=== PATIENT | female | born 1950 | race Caucasian/White ===

== ENCOUNTER → 2016-05-23 | Outpatient (CLI) | payer MEDICARE, OTHER ==
[~2016-05-23] MED LIST: AMLO5TAB2 PO; ATOR40TA PO; CELE200C PO; CITA20TA4 PO; CLCX200C PO; GABA-488 PO; HCT25T PO; HYDR-34 PO; HYDR118S10 PO; HYDR200T46 PO; LEFL20TA4 PO; LEVO75TA6 PO; LEVOTHYROXINE; MECL25TA56 PO; METH2.5T PO; OLME20TA21 PO; ONDA-42 SL; SLF500T PO
--- NOTE | 2016-05-23 11:54 | Diagnostic Imaging Report ---
INDICATION: Injury, pain to the first and second toes. There are arthritic changes to the first MTP. Seen only in the AP view is questionable lucency passing through the intra-articular surface of the proximal portion distal phalanx of the great toe along its lateral margin. No obvious focal soft tissue swelling and again fracture line is not appreciable in any of the additional obliquities favoring artifact. If this however corresponds to a locus of focal pain consider short-term followup to exclude nondisplaced intra-articular fracture or arthritic changes to the proximal and distal interphalangeal joints of the second toe without an appreciable fracture. IMPRESSION: Arthritic changes are present, no definite fracture. Seen in a single view there is questionable lucency of the proximal aspect intra-articular portion distal phalanx great toe. Correlate with level of pain, followup may be of benefit. No other potential acute injury. Dictated by: Dictated on workstation # [id number]
--- NOTE | 2016-05-23 13:18 | Diagnostic Imaging Report ---
EXAMINATION: Left foot. INDICATION: Injury. Three views were obtained. FINDINGS: The left toes exam performed in conjunction with this study did note a linear lucency extending through the lateral aspect of the base of the distal phalanx of the great toe. That finding is again evident on this study. Although this finding is not well appreciated on the other two projections, I suspect that there are is a nondisplaced fracture in this area. No other fracture or acute bony abnormality is identified. There does seem to be soft tissue edema about the interphalangeal joint of the great toe and this too suggests that there may be an acute bony injury. There is at least moderate degenerative disease of the head of the first metatarsal. A prominent calcaneal spur is also noted. IMPRESSION: 1. The findings are suspicious for a nondisplaced fracture involving the lateral aspect of the base of the distal phalanx of the great toe. Clinical followup is recommended. 2. There is no acute bony abnormality noted otherwise. Dictated by: Dictated on workstation # [id number]
== END ==
LOC: RAD 11:10
PROVIDERS: ATTEND Nurse Practitioner Family
DX: M79.672 Pain in left foot (principal); M79.675 Pain in left toe(s)
CPT/HCPCS: 73630; 73660

== ENCOUNTER → 2016-07-07 | Outpatient (CLI) | payer MEDICARE, OTHER ==
--- NOTE | 2016-07-08 09:07 | Diagnostic Imaging Report ---
Bilateral screening mammogram The current study was also evaluated with a Computer Aided Detection (CAD) system. INDICATION: Screening. No current complaints stated on the questionnaire. COMPARISON: 03/23/15 FINDINGS: The breasts are composed of scattered fibroglandular densities with slightly dense small areas in the parenchyma similar to prior studies. No mass, architectural distortion or suspicious cluster of calcifications seen. Scattered benign-appearing calcifications are noted. Allowing for technique and positional differences, no suspicious change is seen. IMPRESSION: No significant change. ACR BI-RADS Category 2: Benign findings. Result letter will be mailed to the patient. Note: At least 10% of breast cancer is not imaged by mammography. Dictated by: Dictated on workstation # [id number]
== END ==
LOC: RAD 11:17
PROVIDERS: ATTEND Nurse Practitioner Family
DX: Z12.31 Encounter for screening mammogram for malignant neoplasm of breast (principal)
CPT/HCPCS: 77067

== ENCOUNTER → 2018-01-03 | Outpatient (CLI) | payer MEDICARE, OTHER ==
--- NOTE | 2018-01-03 19:32 | Diagnostic Imaging Report ---
INDICATION: Routine screening. Comparison is made with prior exam from 07/07/2016 and 03/23/2015. 2-D and 3-D bilateral screening mammography was performed with computer-aided detection (CAD) system. FINDINGS: Both breasts remain heterogeneously dense, limiting the sensitivity of mammography. There are benign calcifications scattered throughout both breasts. There is a density noted in the left breast retroareolar slightly superior location on the MLO view which appears more prominent than prior exam. No definite correlate on the CC view is seen. Additional views are recommended. No other abnormality is seen. The axillae are unremarkable. IMPRESSION: Left breast density. Additional views including spot compression and ML views are recommended for further evaluation. ACR BI-RADS Category 0: Incomplete. (Needs additional imaging evaluation). Result letter will be mailed to the patient. Note: At least 10% of breast cancer is not imaged by mammography. Dictated by: Dictated on workstation # [id number]
== END ==
LOC: RAD 09:37
PROVIDERS: ATTEND Family Medicine
DX: Z12.31 Encounter for screening mammogram for malignant neoplasm of breast (principal); R92.8 Other abnormal and inconclusive findings on diagnostic imaging of breast
CPT/HCPCS: 77067

== ENCOUNTER → 2018-01-31 | Outpatient (CLI) | payer MEDICARE, OTHER ==
--- NOTE | 2018-01-31 10:03 | Diagnostic Imaging Report ---
Ultrasound of the left breast. INDICATION: Abnormal mammogram The screening mammogram performed on 01/03/2018 noted an area of increased density in the left supra-areolar region. The diagnostic mammogram performed earlier today failed to show any sign of malignancy. On this study there is no discrete solid or cystic mass visualized. I suspect that the density seen on screening mammogram was related to superimposition of fibroglandular tissue alone. Even so, I would recommend that a short-term (6 month) followup mammogram and possible ultrasound exam of the left breast be performed for continued study. IMPRESSION: There is no evidence of malignancy. Recommendations as above. ACR BI-RADS Category 3: Probably benign findings. Dictated by: Dictated on workstation # [id number]
--- NOTE | 2018-01-31 10:03 | Diagnostic Imaging Report ---
EXAMINATION: Unilateral diagnostic left mammogram with CAD. INDICATION: Abnormal screening mammogram. PERSONAL HISTORY: The recent screening mammogram performed on 01/03/2018 noted an area of increased density in the retroareolar region of the left breast on the MLO view. There was no corresponding abnormality on the craniocaudad view. FINDINGS: The previously noted density does not seem as conspicuous on the compression views in the MLO projection performed today. This finding is not well visualized on the true lateral view either. I suspect it is related to fibroglandular tissue alone. Even so, I would recommend that ultrasound be performed for further study. IMPRESSION: There is no evidence for malignancy. Ultrasound would be recommended for further evaluation. ACR BI-RADS Category 0: Incomplete. (Needs additional imaging evaluation). Result letter will be mailed to the patient. Note: At least 10% of breast cancer is not imaged by mammography. Dictated by: Dictated on workstation # [id number]
== END ==
LOC: RAD 08:17
PROVIDERS: ATTEND Nurse Practitioner Family
DX: R92.2 Inconclusive mammogram (principal)
CPT/HCPCS: 76642

== ENCOUNTER 2018-03-17 11:07 | Inpatient (IN) | payer MEDICARE, OTHER ==
[~2018-03-17] VITALS: Ht 162.6 cm; Wt 79.1 kg
--- OUTSIDE RECORDS SUMMARY | 2018-03-17 11:11 | XMS REPORT | Clinical Summary ---
Author Author [facility] Organization [facility] Address Unknown Phone Unavailable Care Team Providers Care Solution Coordinator Name Role Phone Shannon Falk MD PCP Allergies Active Allergy Reactions Severity Noted Date Comments Infliximab Rash Low 10/30/2017 Sulfa (Sulfonamide Hives 05/25/2015 Antibiotics) Current Medications Prescription Sig. Disp. Refills Start End Date Status Date losartan (COZAAR) 100 MG Take 100 mg by mouth 04/26/19 Active tablet daily. 16 levothyroxine (SYNTHROID, Take 75 mcg by mouth 04/18/19 Active LEVOTHROID) 75 MCG tablet daily. 16 gabapentin (NEURONTIN) Take 600 mg by mouth 2 04/23/19 Active 600 MG tablet (two) times a day. 16 citalopram (CELEXA) 20 MG Take by mouth every 04/27/19 Active tablet morning. 16 chlorthalidone (HYGROTON) Take 1 tablet (25 mg 90 tablet 3 09/16/19 Active 25 MG tablet total) by mouth daily. 18 spironolactone Take 1 tablet (25 mg 90 tablet 3 10/17/19 Active (ALDACTONE) 25 MG tablet total) by mouth daily. 18 oxyCODONE-acetaminophen Take 2 tablets by mouth 03/03/19 Active (PERCOCET) 5-325 mg per every 6 (six) hours as 19 tablet needed for pain. Take 1-2 tabs aspirin 325 MG EC tablet Take 325 mg by mouth 03/03/19 Active daily. 19 polyethylene glycol Take 17 g by mouth daily. 03/03/19 Active (GLYCOLAX) 17 gram/dose For constipation 19 powder Active Problems Problem Noted Date Radicular leg pain 05/25/2015 RA (rheumatoid arthritis) ([facility]) Overview: APPROX 10 YRS Neuropathy Overview: LEFT FOOT Hypothyroidism Essential hypertension Mixed hyperlipidemia Obesity (BMI 30.0-34.9) Foot drop, left Edema of lower extremity Overview: R>L Encounters Date Type Specialty Care Team Description 03/12/2018 Home Care Visit [facility] Jenny Covarrubias, PT PT OASIS DISCHARGE 03/09/2018 Home Care Visit [facility] Services Jenny Covarrubias, PT PT HOME VISIT 03/08/2018 Home Care Visit [facility] Jenny Boucher, RN SN MED REVIEW NOTE 03/06/2018 Home Care Visit [facility] Services Jenny Covarrubias, PT PT HOME VISIT 03/03/2018 Home Care Visit [facility] Jenny Covarrubias, PT PT OASIS START OF CARE 03/02/2018 Home Care Visit [facility] [place] Werner G TELEPHONE ENCOUNTER 01/29/2018 Hospital [facility] Chante Farrar APRN Varicose veins of both Encounter lower extremities with pain (Primary Dx) from Last 3 Months Family History Medical History Relation Name Comments Heart attack Brother COPD Father Heart attack Father Hyperlipidemia Father Stroke Father Hyperlipidemia Mother Relation Name Status Comments Brother Father Mother Social History Tobacco Use Types Packs/Day Years Used Date Never Smoker Smokeless Tobacco: Never Used Alcohol Use Drinks/Week oz/Week Comments Yes RARELY Sex Assigned at Date Recorded Not on file Last Filed Vital Signs Vital Sign Reading Time Taken Blood Pressure 120/64 03/12/2018 10:57 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 Pulse 72 03/12/2018 10:57 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 Temperature 36.7 C (98.1 F) 03/09/2018 9:47 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 Respiratory Rate 17 07/31/2015 4:07 PM CDT Oxygen Saturation 97% 03/12/2018 10:57 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 Inhaled Oxygen - - Concentration Weight 81.6 kg (180 lb) 01/29/2018 10:00 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 Height 162.6 cm (5' 4") 01/29/2018 10:00 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 Body Mass Index 30.9 01/29/2018 10:00 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 Plan of Treatment Date Type Specialty Care Team Description 04/16/2018 Appointment Valve and Vascular Health Maintenance Due Date Last Done Comments Medicare Annual Wellness 1950 Td # 1950 Colorectal Screening via 08/13/1999 Colonoscopy Mammogram Screening 08/13/1999 Zoster Vaccine# (1 of 2) 08/13/1999 Pneumococcal Immunization 2014 65+ (1 of 2 - PCV13) Fall Risk Assessment # 07/30/2016 07/31/2015 Depression Screening 01/21/2017 01/22/2016 PHQ-9 # Influenza Vaccine (#1) 2017 Osteoporosis Screening 05/26/2020 05/27/2015 Hepatitis C Screen Completed 05/13/2013 Implants Implanted Type Area Inpatient Services Director Device Expiration Model / Identifier Date Serial / Lot Implant Allograft Vivigen 1ml Non-Tissue N/A: Spine LIFENET 2015 BL-1500-00 Bl-1500-001 - [id number] Implant Lumbar 1 / Implanted: Qty: 1 on 07/28/2015 by [id number] Frank Abdi MD 12 / Implant Allograft Vivigen 1ml Non-Tissue N/A: Spine LIFENET 2015 BL-1500- -1500-001 - [id number] Implant Lumbar 1 / Implanted: Qty: 1 on 07/28/2015 by [id number] Frank Abdi MD 06 / Implant Spacer Rise 10 X 26 8-15mm Non-Tissue N/A: Spine GLOBUS 193.122 / 193.122 - [id number] Implant Lumbar / Implanted: Qty: 1 on 07/28/2015 by Frank Abdi MD Needle Jamshidi Beveled Tip 10ga X Non-Tissue N/A: Spine DEPUY SPINE 5" 2839-02-510 - [id number] Implant Lumbar 0 / Implanted: Qty: 2 on 07/28/2015 by / Frank Abdi MD Implant Screw X-Tab Miguel 6 X 40mm Non-Tissue N/A: Spine DEPUY SPINE 1866-60-140 - [id number] Implant Lumbar 0 / Implanted: Qty: 1 on 07/28/2015 by / Frank Abdi MD Implant Screw X-Tab Miguel 6 X 45mm Non-Tissue N/A: Spine DEPUY SPINE 60-145 - [id number] Implant Lumbar 5 / Implanted: Qty: 3 on 07/28/2015 by / Frank Abdi MD Implant Morales 45mm - - Non-Tissue N/A: Spine DEPUY SPINE [id number] Implant Lumbar 5 / Implanted: Qty: 2 on 07/28/2015 by / Frank Abdi MD Implant Screw Inner Set 1866-- Non-Tissue N/A: Spine DEPUY SPINE - [id number] Implant Lumbar 0 / Implanted: Qty: 4 on 07/28/2015 by / Frank Abdi MD Results Not on filefrom Last 3 Months
--- OUTSIDE RECORDS SUMMARY | 2018-03-17 11:12 | XMS REPORT | Encounter Summary ---
Author Author [facility] Organization [facility] Address Unknown Phone Unavailable Care Team Providers Care Play Reader Name Role Phone Shannon Falk MD PCP Reason for Visit * HH Auth Cert Status Reason Specialty Diagnoses / Referred By Referred To Procedures Contact Contact Encounter Details Date Type Department Care Team Description 03/12/2018 Home Care Visit [facility] Jenny Covarrubias, PT PT OASIS DISCHARGE [address] [address] Social History Tobacco Use Types Packs/Day Years Used Date Never Smoker Smokeless Tobacco: Never Used Alcohol Use Drinks/Week oz/Week Comments Yes RARELY Sex Assigned at Date Recorded Not on file as of this encounter Last Filed Vital Signs Vital Sign Reading Time Taken Blood Pressure 120/64 03/12/2018 10:57 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
--- OUTSIDE RECORDS SUMMARY | 2018-03-17 11:12 | XMS REPORT | Encounter Summary ---
Author Author [facility] Organization [facility] Address Unknown Phone Unavailable Care Team Providers Care Furrier Designer Name Role Phone Shannon Falk MD PCP Reason for Visit * HH Auth Cert Status Reason Specialty Diagnoses / Referred By Referred To Procedures Contact Contact Encounter Details Date Type Department Care Team Description 03/06/2018 Home Care Visit [facility] Jenny Covarrubias, PT PT HOME VISIT [place] [id number] [address] Social History Tobacco Use Types Packs/Day Years Used Date Never Smoker Smokeless Tobacco: Never Used Alcohol Use Drinks/Week oz/Week Comments Yes RARELY Sex Assigned at Date Recorded Not on file as of this encounter Last Filed Vital Signs Vital Sign Reading Time Taken Blood Pressure 140/80 03/06/2018 2:57 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
--- OUTSIDE RECORDS SUMMARY | 2018-03-17 11:12 | XMS REPORT | Encounter Summary ---
Author Author [facility] Organization [facility] Address Unknown Phone Unavailable Care Team Providers Care Contract Clerk Automobile Name Role Phone Shannon Falk MD PCP Encounter Details Date Type Department Care Team Description 03/02/2018 Home Care Visit [facility] Werner Ramirez TELEPHONE ENCOUNTER [facility] [address] [address] Social History Tobacco Use Types Packs/Day Years Used Date Never Smoker Smokeless Tobacco: Never Used Alcohol Use Drinks/Week oz/Week Comments Yes RARELY Sex Assigned at Date Recorded Not on file as of this encounter Plan of Treatment Date Type Specialty Care Team Description 04/16/2018 Appointment Valve and Vascular as of this encounter Visit Diagnoses Not on filein this encounter
--- OUTSIDE RECORDS SUMMARY | 2018-03-17 11:12 | XMS REPORT | Encounter Summary ---
Author Author [facility] Organization [facility] Address Unknown Phone Unavailable Care Team Providers Care High Scaler Name Role Phone Shannon Falk MD PCP Reason for Visit * Reason Comments Leg pain Leg Swelling Encounter Details Date Type Department Care Team Description 01/29/2018 [facility] Chante Farrar APRN Varicose veins of both Encounter [facility] [address] lower extremities with [address], [address] pain (Primary Dx) [place] [address] [place] [address] [phone] Social History Tobacco Use Types Packs/Day Years Used Date Never Smoker Smokeless Tobacco: Never Used Alcohol Use Drinks/Week oz/Week Comments Yes RARELY Sex Assigned at Date Recorded Not on file as of this encounter Last Filed Vital Signs Vital Sign Reading Time Taken Blood Pressure 147/77 01/29/2018 10:00 AM TABLEAU REPORT DEVELOPER Pulse 80 01/29/2018 10:31 AM TABLEAU REPORT DEVELOPER Temperature - - Respiratory Rate - - Oxygen Saturation - - Inhaled Oxygen - - Concentration Weight 81.6 kg (180 lb) 01/29/2018 10:00 AM TABLEAU REPORT DEVELOPER Height 162.6 cm (5' 4") 01/29/2018 10:00 AM TABLEAU REPORT DEVELOPER Body Mass Index 30.9 01/29/2018 10:00 AM TABLEAU REPORT DEVELOPER in this encounter Medications at Time of Discharge Medication Sig. Disp. Refills Start Date End Date chlorthalidone (HYGROTON) Take 1 tablet (25 mg 90 tablet 3 09/15/2017 25 MG tablet total) by mouth daily. citalopram (CELEXA) 20 MG Take by mouth every 04/27/2015 tablet morning. gabapentin (NEURONTIN) Take 600 mg by mouth 2 04/23/2015 600 MG tablet (two) times a day. levothyroxine (SYNTHROID, Take 75 mcg by mouth 04/18/2015 LEVOTHROID) 75 MCG tablet daily. losartan (COZAAR) 100 MG Take 100 mg by mouth 04/26/2015 tablet daily. spironolactone Take 1 tablet (25 mg 90 tablet 3 10/16/2017 (ALDACTONE) 25 MG tablet total) by mouth daily. as of this encounter Progress Notes * Chante Farrar APRN - 01/29/2018 10:04 AM TABLEAU REPORT DEVELOPER Formatting of this note may be different from the original. [facility] Appointment Date: 01/29/2018 Shannon Falk MD [address], [place], operated [facility] [id number] RE: Dalila Hameed : 1950 Visit provider: Chante Farrar RN, [facility] Dear Shannon Falk MD, I had the pleasure of seeing Dalila Hameed in the office today. She is a 67 y.o. female and presents with the following chief complaints: Leg pain and Leg Swelling HPI: Ms. Hameed presents for reevaluation of her venous insufficiency. She is a 67- year-old female with history of venous insufficiency with prior treatment to her left leg years ago which she describes as vein stripping. Her medical history also includes hypertension and dyslipidemia. She has had issues with chronic lower extremity edema as well as lower extremity discomfort described as aching and cramping. Her vein mapping revealed bilateral deep vein reflux as well as large vein insufficiency involving the greater saphenous veins , anterior lateral saphenous veins, tributaries, and vein of Giacomini. She was noted to have medium vein disease as well. She has completed a 90-day trial of compression during the daytime hours. She reports her symptoms have improved significantly although they have not entirely resolved. Her swelling is much better. She still has some aching and cramping but these are much less severe. She plans to proceed with a right knee replacement on February 27. Vein Medical History Can you stand for 30 minutes without assistance?: Yes Can you climb three stairs (using hand rails) without assistance?: Yes Have you fallen in the last six months?: No Have you had previous treatment of your veins?: Stripping (15 years ago) Have you ever had an ankle/leg ulcer?: No Have you ever been treated in Wound Care?: No Do you have vaginal varicosities?: No Leg Symptoms Aching/Pain in legs: Bilateral Heaviness: Bilateral Fatigue/Tiredness: Bilateral Itching/Burning: Bilateral Leg cramping: Bilateral Leg restlessness: Bilateral Throbbing: Bilateral Swelling: Bilateral Do your symptoms interfere with activity?: Bilateral Do your symptoms worsen with activity?: Bilateral Do your symptoms wake you at night?: Bilateral Which leg is more symptomatic?: Left How long have you experienced the symptoms marked above?: 1 year How do your symptoms interfere with performing daily activities?: limits house and yard work Conservative Treatment What pain medications have you used?: hydrocodone Other conservative treatments?: Leg elevation, Activity restriction Compression Stockings Are you currently wearing compression stockings?: Yes When did you begin wearing compression stockings?: 3 months Do you wear compression stockings daily?: Yes Which type of compression hose are you wearing?: Thigh High Patient Active Problem List Diagnosis SNOMED CT(R) Radicular leg pain RADICULAR PAIN RA (rheumatoid arthritis) ([facility]) RHEUMATOID ARTHRITIS Neuropathy NEUROPATHY Hypothyroidism HYPOTHYROIDISM Essential hypertension ESSENTIAL HYPERTENSION Mixed hyperlipidemia MIXED HYPERLIPIDEMIA Obesity (BMI 30.0-34.9) OBESE CLASS I Foot drop, left LEFT FOOT DROP Edema of lower extremity EDEMA OF LOWER EXTREMITY Past Medical History: Diagnosis Date Anesthesia complication CAUSES CONSTIPATION Chronic pain disorder ON PAIN NARCOTICS FOR APPROX 15 YRS Degenerative joint disease (DJD) of lumbar spine Edema of lower extremity R>L Essential hypertension Foot drop, left GERD (gastroesophageal reflux disease) MARTY FOR GERD, NO PROBLEMS SINCE Head injury CONCUSSION AFTER FALL, LOC FOR BRIEF PERIOD OF TIME, NO PERMANENT DAMAGE History of blood clots SUPERFACIAL CLOTS AT THIGH AREA OF LEFT LEG Hypothyroidism Mixed hyperlipidemia Neuropathy LEFT FOOT Obesity (BMI 30.0-34.9) Osteoarthritis HANDS, HIPS RA (rheumatoid arthritis) ([facility]) APPROX 10 YRS Radicular leg pain 05/25/2015 Rheumatoid arthritis of spine ([facility]) CERVICAL SPINE; HAS FULL ROM WITH NECK Sciatica DOWN LEFT LEG Urinary incontinence STRESS INCONTINENCE Past Surgical History: Procedure Laterality Date BUNIONECTOMY Right FRACTURE SURGERY Left CLAVICAL FX FUSION, SPINE, LUMBAR, INTERBODY, TRANSFORAMINAL APPROACH Left 07/28/2015 Procedure: L4-L5 FUSION TRANSFORAMINAL LUMBAR INTERBODY SPINE; Surgeon: Frank Abdi MD; Location: [facility]; Service: Neurosurgery; Laterality: Left; HYSTERECTOMY MARTY FUNDOPLICATION ROTATOR CUFF REPAIR Right TONSILLECTOMY AND ADENOIDECTOMY VEIN LIGATION AND STRIPPING Left Final Medications: Current Outpatient Prescriptions Medication Sig Dispense Refill chlorthalidone (HYGROTON) 25 MG tablet Take 1 tablet (25 mg total) by mouth daily. 90 tablet 3 citalopram (CELEXA) 20 MG tablet Take by mouth every morning. gabapentin (NEURONTIN) 600 MG tablet Take 600 mg by mouth 2 (two) times a day. levothyroxine (SYNTHROID, LEVOTHROID) 75 MCG tablet Take 75 mcg by mouth daily. losartan (COZAAR) 100 MG tablet Take 100 mg by mouth daily. spironolactone (ALDACTONE) 25 MG tablet Take 1 tablet (25 mg total) by mouth daily. 90 tablet 3 No current facility-administered medications for this encounter. Allergies Allergen Reactions Sulfa (Sulfonamide Antibiotics) Hives Remicade [Infliximab] Rash Family History Problem Relation Age of Onset Hyperlipidemia Mother Hyperlipidemia Father COPD Father Stroke Father Heart attack Father Heart attack Brother Social History: Social History Substance Use Topics Smoking status: Never Smoker Smokeless tobacco: Never Used Alcohol use Yes Comment: RARELY Review of Systems Cardiovascular: Positive for leg swelling. Skin: Negative for color change, dry skin, itching, poor wound healing and rash. Musculoskeletal: Positive for joint pain, joint swelling and muscle cramps. Negative for muscle weakness. Vital Signs 01/29/18 1000 01/29/18 1031 BP: (!) 147/77 Pulse: (!) 111 80 Weight: 81.6 kg (180 lb) Height: 1.626 m (5' 4") BMI: Body mass index is 30.9 kg/m. Physical Exam Constitutional: She is oriented to person, place, and time. She appears well- developed and well-nourished. HENT: Head: Normocephalic. Cardiovascular: Regular rhythm, normal heart sounds and intact distal pulses. Pulmonary/Chest: Effort normal and breath sounds normal. Musculoskeletal: She exhibits edema (trace bilateral LE ). Normal calf pump Neurological: She is alert and oriented to person, place, and time. Skin: Skin is warm and dry. Scattered bilateral LE telangiectasias and reticular veins. Skin is dry, flaking. Psychiatric: She has a normal mood and affect. Her behavior is normal. Judgment and thought content normal. SNOMED CT(R) 1. Varicose veins of both lower extremities with pain VARICOSE VEINS OF LOWER EXTREMITY Plan: #1 Venous insufficiency with lifestyle limiting symptoms. The use of compression has been helpful therefore I believe she will benefit from treatment of her venous insufficiency she will require endovenous laser ablation of her right greater saphenous vein with ultrasound-guided injections and treatment of her median vein disease. Her left leg is amenable to endovenous laser ablation of her anterior lateral saphenous vein, ultrasound guided injections and the treatment of medium vein disease. If EVLA of the AL is unsuccessful, she will require ultrasound-guided injections. She plans to proceed with her right knee replacement on February 27 therefore we will delay any venous treatment until after her recovery. She will return to our office in March for reevaluation. She will continue to use compression during the daytime hours. #2 Deep vein insufficiency. This was noted bilaterally on vein mapping. We discussed she may always have some degree of lower extremity symptoms as a result I have encouraged her to use compression lifelong, engage in routine exercise, and pursue weight loss. Thank you for allowing me to participate in Dalila Hameed's care. If I can be of any further assistance, please do not hesitate to contact me. Sincerely, Chante Farrar RN, AGACNP-BC in this encounter Plan of Treatment Date Type Specialty Care Team Description 04/16/2018 Appointment [facility] as of this encounter Visit Diagnoses Diagnosis Varicose veins of both lower extremities with pain - Primary
--- OUTSIDE RECORDS SUMMARY | 2018-03-17 11:12 | XMS REPORT | Encounter Summary ---
Author Author [facility] Organization [facility] Address Unknown Phone Unavailable Care Team Providers Care Joy Loader Name Role Phone Shannon Falk MD PCP Reason for Visit * HH Auth Cert Status Reason Specialty Diagnoses / Referred By Referred To Procedures Contact Contact Encounter Details Date Type Department Care Team Description 03/08/2018 Home Care Visit [facility] Jenny Boucher , RN SN MED REVIEW NOTE [facility] [address] [address] Social History Tobacco Use Types [...]
--- OUTSIDE RECORDS SUMMARY | 2018-03-17 11:12 | XMS REPORT | Encounter Summary ---
Author Author [facility] Organization [facility] Address Unknown Phone Unavailable Care Team Providers Care Video Game Developer Name Role Phone Shannon Falk MD PCP Reason for Visit * HH Auth Cert Status Reason Specialty Diagnoses / Referred By Referred To Procedures Contact Contact Encounter Details Date Type Department Care Team Description 03/09/2018 Home Care Visit [facility] Jenny Covarrubias, PT PT HOME VISIT [place] [id number] [address] Social History Tobacco Use Types Packs/Day Years Used Date Never Smoker Smokeless Tobacco: Never Used Alcohol Use Drinks/Week oz/Week Comments Yes RARELY Sex Assigned at Date Recorded Not on file as of this encounter Last Filed Vital Signs Vital Sign Reading Time Taken Blood Pressure 124/64 03/09/2018 9:47 AM MERCHANDISE DISTRIBUTOR Pulse 78 03/09/2018 9:47 AM MERCHANDISE DISTRIBUTOR Temperature 36.7 C (98.1 F) 03/09/2018 9:47 AM MERCHANDISE DISTRIBUTOR Respiratory Rate - - Oxygen Saturation 96% 03/09/2018 9:47 AM MERCHANDISE DISTRIBUTOR Inhaled Oxygen - - Concentration Weight - - Height - - Body Mass Index - - in this encounter Plan of Treatment Date Type Specialty Care Team Description 04/16/2018 Appointment [facility] as of this encounter Visit Diagnoses Not on filein this encounter
--- OUTSIDE RECORDS SUMMARY | 2018-03-17 11:12 | XMS REPORT | Encounter Summary ---
Author Author [facility] Organization [facility] Address Unknown Phone Unavailable Care Team Providers Care Brake Adjuster Name Role Phone Shannon Falk MD PCP Reason for Visit * HH Auth Cert Status Reason Specialty Diagnoses / Referred By Referred To Procedures Contact Contact Encounter Details Date Type Department Care Team Description 03/03/2018 Home Care Visit [facility] Jenny Covarrubias, PT PT [place] [phone] [address] Social History Tobacco Use Types Packs/Day Years Used Date Never Smoker Smokeless Tobacco: Never Used Alcohol Use Drinks/Week oz/Week Comments Yes RARELY Sex Assigned at Date Recorded Not on file as of this encounter Last Filed Vital Signs Vital Sign Reading Time Taken Blood Pressure 150/78 03/03/2018 12:54 PM NURSE SITTER Pulse 72 03/03/2018 12:54 PM NURSE SITTER Temperature 36.7 C (98.1 F) 03/03/2018 12:54 PM NURSE SITTER Respiratory Rate - - Oxygen Saturation 96% 03/03/2018 12:54 PM NURSE SITTER Inhaled Oxygen - - Concentration Weight - - Height - - Body Mass Index - - in this encounter Plan of Treatment Date Type Specialty Care Team Description 04/16/2018 Appointment [facility] as of this encounter Visit Diagnoses Not on filein this encounter
--- OUTSIDE RECORDS SUMMARY | 2018-03-17 11:15 | XMS REPORT | CCD ---
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 Name Role Phone PP Unavailable CCM Unavailable Summary Purpose Interface Exchange Insurance Providers Payer name Policy type / Coverage type Covered alliance party ID Effective Begin Date Effective End Date WPS Medicare Part B Medicare Part B [id number] Unknown [place] [employer] Life Insurance Medicare Part B [id number] Unknown Family history Brother Diagnosis Age At Onset Alcoholism Unknown Daughter Diagnosis Age At Onset Breast cancer Unknown Mother Diagnosis Age At Onset Hyperlipidemia Unknown Father Diagnosis Age At Onset Alcoholism Unknown Heart Attack Unknown Colon cancer Unknown Cancer Unknown Stroke Unknown Hypertension Unknown Hyperlipidemia Unknown Runs in the family Diagnosis Age At Onset Diabetes Unknown Social History Social History Element Codes Description Effective Dates Marital status Unknown Maksim 09/27/2017 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 Number of children Unknown 2 07/10/[address]: 460836943 Has never smoked or chewed tobacco 07/10/2014 Alcohol history Unknown occasionally drinks alcohol 07/10/2014 Allergies, Adverse Reactions, Alerts Substance Reaction Codes Entered Date Inactivated Date Status Remicade hives RxNorm: 961971 03/24/2017 No Inactive Date Active * NO KNOWN FOOD ALLERGIES Unknown 07/10/2014 No Inactive Date Active SULFA(SULFONAMIDE ANTIBIOTICS) Unknown 07/10/2014 No Inactive Date Active Past Medical History Illness Codes Condition Status Onset Date Resolved Date Other abnormal and inconclusive findings on diagnostic imaging of breast ICD-9: 793.89 ICD-10: R92.8 Active 02/01/2018 Unknown Encounter for screening mammogram for malignant neoplasm of breast ICD-9: V76.10 ICD-10: Z12.31 Active 01/05/2018 Unknown Encounter for general adult medical examination without abnormal findings ICD-9: V70.0 ICD-10: Z00.00 Active 03/29/2015 Unknown Atrophy of thyroid (acquired) ICD-9: 244.8 ICD-10: E03.4 Active 02/23/2016 Unknown Essential (primary) hypertension ICD-9: 401.9 ICD-10: I10 Active 07/09/2014 Unknown Pain in thoracic spine ICD-9: 724.1 ICD-10: M54.6 Active 12/26/2017 Unknown 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 ICD-9 : 714.0 ICD-10: M05.741 Active 03/24/2017 Unknown 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 ICD-9 : 714.0 ICD-10: M05.742 Active 03/24/2017 Unknown Otalgia, left ear ICD- 9: 388.70 ICD-10: H92.02 Active 10/17/2017 Unknown Pleurisy ICD-9: 511.0 ICD-10: R09.1 Active 08/08/2016 Unknown Dysuria ICD-9: 788.1 ICD-10: R30.0 Active 04/18/2016 Unknown Other pruritus ICD-9: 698.1 ICD-10: L29.8 Active 03/06/2016 Unknown Pain in left foot ICD- 9: 729.5 ICD-10: M79.672 Active 05/23/2016 Unknown Pain in left toe(s) ICD-9: 729.5 ICD-10: M79.675 Active 05/23/2016 Unknown Candidiasis of vulva and vagina ICD-9: 112.1 ICD-10: B37.3 Active 03/06/2016 Unknown Functional diarrhea ICD-9: 564.5 ICD-10: K59.1 Active 02/23/2016 Unknown Pain in left hip ICD-9 : 719.45 ICD-10: M25.552 Active 02/23/2016 Unknown Pain in right hip ICD- 9: 719.45 ICD-10: M25.551 Active 02/23/2016 Unknown Major depressive disorder, single episode, unspecified ICD-9: 311 ICD-10: F32.9 Active 07/09/2014 Unknown Mixed hyperlipidemia ICD-9: 272.4 ICD-10: E78.2 Active 07/09/2014 Unknown Rash and other nonspecific skin eruption ICD-9: 782.1 ICD-10: R21 Active 05/25/2015 Unknown Foot drop, left foot ICD-9: 736.79 ICD-10: M21.372 Active 04/08/2015 Unknown Sacroiliitis, not elsewhere classified ICD-9: 720.2 ICD-10: M46.1 Active 04/08/2015 Unknown Family history of malignant neoplasm of digestive organs ICD-9: V16.0 ICD-10: Z80.0 Active 03/09/2015 Unknown Other intervertebral disc degeneration, lumbar region ICD-9: 722.52 ICD-10: M51.36 Active 03/09/2015 Unknown Sciatica, left side ICD-9: 724.3 ICD-10: M54.32 Active 03/09/2015 Unknown Iliotibial band syndrome, left leg ICD-9: 728.89 ICD-10: M76.32 Active 12/15/2014 Unknown Trochanteric bursitis, left hip ICD-9: 726.5 ICD-10: M70.62 Active 12/15/2014 Unknown Sciatica Unknown Active 12/09/2014 Unknown Carpal tunnel syndrome, unspecified upper limb ICD-9: 354.0 ICD-10: G56.00 Active 11/12/2014 Unknown 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 condition with depressive features ICD-9: 311 ICD-10: F06.31 Active 07/09/2014 Unknown Depression Unknown Active 07/10/2014 Unknown Diabetes Unknown Active 07/10/2014 Unknown Hyperlipidemia Unknown Active 07/10/2014 Unknown Hypertension Unknown Active 07/10/2014 Unknown DEPRESSIVE DISORDER NEC ICD-9: 311 Active 07/09/2014 Unknown Diarrhea ICD-9: 787.91 Active 07/09/2014 Unknown ESSENTIAL HYPERTENSION ICD-9: 401.9 Active 07/09/2014 Unknown HYPERLIPIDEMIA ICD-9: 272.4 Active 07/09/2014 Unknown Problems Condition Codes Effective Dates Condition Status Other abnormal and inconclusive findings on diagnostic imaging of breast ICD-9: 793.89 ICD-10: R92.8 02/01/2018 Active Encounter for screening mammogram for malignant neoplasm of breast ICD-9: V76.10 ICD-10: Z12.31 01/05/2018 Active Encounter for general adult medical examination without abnormal findings ICD-9: V70.0 ICD-10: Z00.00 03/29/2015 Active Atrophy of thyroid (acquired) ICD-9: 244.8 ICD-10: E03.4 02/23/2016 Active Essential (primary) hypertension ICD-9: 401.9 ICD-10: I10 07/09/2014 Active Pain in thoracic spine ICD-9: 724.1 ICD-10: M54.6 12/26/2017 Active 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1 ICD-10: B37.3 03/06/2016 Active Functional diarrhea ICD-9: 564.5 ICD-10: K59.1 02/23/2016 Active Pain in left hip ICD-9 : 719.45 ICD-10: M25.552 02/23/2016 Active Pain in right hip ICD- 9: 719.45 ICD-10: M25.551 02/23/2016 Active Major depressive disorder, single episode, unspecified ICD-9: 311 ICD-10: F32.9 07/09/2014 Active Mixed hyperlipidemia ICD-9: 272.4 ICD-10: E78.2 07/09/2014 Active Rash and other nonspecific skin eruption ICD-9: 782.1 ICD-10: R21 05/25/2015 Active Foot drop, left foot ICD-9: 736.79 ICD-10: M21.372 04/08/2015 Active Sacroiliitis, not elsewhere classified ICD-9: 720.2 ICD-10: M46.1 04/08/2015 Active Family history of malignant neoplasm of digestive organs ICD-9: V16.0 ICD-10: Z80.0 03/09/2015 Active Other intervertebral disc degeneration, lumbar region ICD-9: 722.52 ICD-10: M51.36 03/09/2015 Active Sciatica, left side ICD-9: 724.3 ICD-10: M54.32 03/09/2015 Active Iliotibial band syndrome, left leg ICD-9: 728.89 ICD-10: M76.32 12/15/2014 Active Trochanteric bursitis, left hip ICD-9: 726.5 ICD-10: M70.62 12/15/2014 Active Sciatica Unknown 12/09/2014 Active Carpal tunnel syndrome, unspecified upper limb ICD-9: 354.0 ICD-10: G56.00 11/12/2014 Active 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 condition with depressive features ICD-9: 311 ICD-10: F06.31 07/09/2014 Active Depression Unknown 07/10/2014 Active Diabetes Unknown 07/10/2014 Active Hyperlipidemia Unknown 07/10/2014 Active Hypertension Unknown 07/10/2014 Active DEPRESSIVE DISORDER NEC ICD-9: 311 07/09/2014 Active Diarrhea ICD-9: 787.91 07/09/2014 Active ESSENTIAL HYPERTENSION ICD-9: 401.9 07/09/2014 Active HYPERLIPIDEMIA ICD-9: 272.4 07/09/2014 Active Medications Medication Codes Instructions Start Date Stop Date Status Fill Instructions Synthroid 75 mcg tablet RxNorm: 043377 Tablet(s) TAKE 1 TABLET BY MOUTH DAILY 02/07/2018 09/04/2018 Active Generic For:*SYNTHROID 0.075MG TAB 11/14/2016 9:16:33 AM N O T I C E Last quantity doesn't match original quantity hydrocodone 7.5 mg-acetaminophen 325 mg tablet RxNorm: 756439 1-2 Tablet(s) PO Q4H as needed 10/12/2017 10/26/2017 Inactive Synthroid 75 mcg tablet RxNorm: 216257 Tablet(s) TAKE 1 TABLET BY MOUTH DAILY 08/09/2017 02/06/2018 Inactive Generic For:*SYNTHROID 0.075MG TAB 11/14/2016 9:16: 33 AM N O T I C E Last quantity doesn't match original quantity hydrocodone 7.5 mg-acetaminophen 325 mg tablet RxNorm: 374659 1-2 Tablet(s) PO Q4H as needed 05/22/2017 06/20/2017 Inactive citalopram 20 mg tablet RxNorm: 959559 Tablet(s) TAKE ONE (1) TABLET BY MOUTH DAILY 05/09/2017 05/03/2018 Active amlodipine 10 mg tablet RxNorm: 513827 1 Tablet(s) PO daily 1 Tablet(s) PO daily 05/09/2017 09/26/2017 Inactive losartan 100 mg tablet RxNorm: 094678 1 Tablet(s) PO daily TAKE 1 TABLET BY MOUTH DAILY 05/09/2017 01/01/2018 Inactive Celebrex 200 mg capsule RxNorm: 125295 1 Capsule(s) PO BID 03/201703/18/2018 Active gabapentin 300 mg capsule RxNorm: 583238 1 Capsule(s) PO daily 03/24/2017 No Stop Date Active Celebrex 200 mg capsule RxNorm: 424481 1 Capsule(s) PO BID 1 Capsule(s) PO daily 03/24/2017 03/23/2017 Inactive amlodipine 10 mg tablet RxNorm: 772742 1 Tablet(s) PO daily 1 Tablet(s) PO daily 03/24/2017 05/08/2017 Inactive Lipitor 40 mg tablet RxNorm: 226111 Tablet(s) TAKE ONE TABLET BY MOUTH AT BEDTIME 02/14/2017 09/26/2017 Inactive hydrocodone 7.5 mg-acetaminophen 325 mg tablet RxNorm: 694262 1-2 Tablet(s) PO Q4H as needed 01/16/2017 02/14/2017 Inactive scopolamine 1.5 mg transdermal patch (1 mg over 3 days) RxNorm: 832097 1 Patch TD Q72H 11/25/2016 12/04/2016 Inactive scopolamine 1.5 mg transdermal patch (1 mg over 3 days) RxNorm: 571669 1 Patch TD Q72H 11/25/2016 11/24/2016 Inactive losartan 100 mg tablet RxNorm: 525232 1 Tablet(s) PO daily TAKE 1 TABLET BY MOUTH DAILY 11/14/2016 05/08/2017 Inactive Generic For:COZAAR 100MG TAB 05/17/2016 8:31: 51 AM Synthroid 75 mcg tablet RxNorm: 577455 TAKE 1 TABLET BY MOUTH DAILY 11/14/2016 06/11/2017 Inactive Generic For:*SYNTHROID 0.075MG TAB 11/14/2016 9:16:33 AM N O T I C E Last quantity doesn't match original quantity citalopram 20 mg tablet RxNorm: 064570 TAKE ONE (1) TABLET BY MOUTH DAILY 11/14/2016 05/08/2017 Inactive Generic For:CELEXA 20MG TAB 11/14/2016 8:30:49 AM N O T I C E Last quantity doesn't match original quantity prednisone 10 mg tablets in a dose pack RxNorm: 580958 1 Tablet(s) PO UD 09/30/2016 10/05/2016 Inactive 6-5-4-3-2-1 hydrocodone 7.5 mg-acetaminophen 325 mg tablet RxNorm: 290362 1-2 Tablet(s) PO Q4H as needed 09/20/2016 01/15/2017 Inactive amlodipine 5 mg tablet RxNorm: 460420 TAKE ONE TABLET BY MOUTH EVERY DAY 08/15/2016 03/23/2017 Inactive Generic For:NORVASC 5 MG TABLET 08/15/2016 3:56:26 PM N O T I C E Last quantity doesn't match original quantity Kenalog 40 mg/mL suspension for injection RxNorm: 5233876 1 Milliliter(s) Inj 08/08/2016 08/08/2016 Inactive prednisone 10 mg tablets in a dose pack RxNorm: 603993 1 Tablet(s) PO UD 08/08/2016 08/07/2016 Inactive prednisone 10 mg tablets in a dose pack RxNorm: 490733 1 Tablet(s) PO UD 08/08/2016 08/13/2016 Inactive 6-5-4-3-2-1 Diflucan 150 mg tablet RxNorm: 150306 1 Tablet(s) PO daily 09/201607/10/2016 Inactive Synthroid 75 mcg tablet RxNorm: 984684 TAKE 1 TABLET BY MOUTH DAILY 06/16/2016 11/13/2016 Inactive Generic For:*SYNTHROID 0.075MG TAB pt would like a 90 day supply N O T I C E Last quantity doesn't match original quantity hydrocodone 7.5 mg-acetaminophen 325 mg tablet RxNorm: 318869 1-2 Tablet(s) PO Q4H as needed 06/06/2016 09/19/2016 Inactive citalopram 20 mg tablet RxNorm: 598187 TAKE ONE (1) TABLET BY MOUTH DAILY 05/18/2016 11/13/2016 Inactive Generic For:CELEXA 20MG TAB 05/17/2016 8:32:02 AM Celebrex 200 mg capsule RxNorm: 659062 1 Capsule(s) PO daily 03/23/2017 Inactive losartan 100 mg tablet RxNorm: 432136 TAKE 1 TABLET BY MOUTH DAILY 05/17/2016 11/12/2016 Inactive Generic For:COZAAR 100MG TAB 05/17/2016 8:31:51 AM amlodipine 5 mg tablet RxNorm: 007777 1 Tablet(s) PO daily 08/14/2016 Inactive Cipro 500 mg tablet RxNorm: 289871 1 Tablet(s) PO BID 201605/03/2016 Inactive Cipro 500 mg tablet RxNorm: 412033 1 Tablet(s) PO BID 201605/13/2016 Inactive Diflucan 150 mg tablet RxNorm: 088079 1 Tablet(s) PO daily 05/01/2016 Inactive Monistat Soothing Care 1.2 % topical gel RxNorm: 3617942 1 Application TOP BID 03/07/2016 01/01/2018 Inactive Diflucan 150 mg tablet RxNorm: 010255 1 Tablet(s) PO daily 03/13/2016 Inactive Lipitor 40 mg tablet RxNorm: 529881 Tablet(s) TAKE ONE TABLET BY MOUTH AT BEDTIME 02/23/2016 02/13/2017 Inactive citalopram 20 mg tablet RxNorm: 423577 TAKE ONE (1) TABLET BY MOUTH DAILY 02/18/2016 05/17/2016 Inactive Generic For:CELEXA 20MG TAB refill request losartan 100 mg tablet RxNorm: 033973 Tablet(s) 1 Tablet, 1 time per Day 02/09/2016 05/16/2016 Inactive INSURANCE WILL NOT COVER ADELA ANDREWS UNTIL OTHER FORMULARIES HAVE BEEN TRIED AND FAILED hydrocodone 7.5 mg-acetaminophen 325 mg tablet RxNorm: 846765 1-2 Tablet(s) PO Q4H as needed 02/03/2016 06/05/2016 Inactive Synthroid 75 mcg tablet RxNorm: 258067 Tablet(s) TAKE 1 TABLET BY MOUTH DAILY 01/19/2016 06/15/2016 Inactive Generic For:*SYNTHROID 0.075MG TAB 09/22/2014 10:00 :02 AM N O T I C E PRESCRIPTION PREVIOUSLY AUTHORIZED BY DOCTOR:SWATI BEY prednisone 10 mg tablets in a dose pack RxNorm: 122774 1 Tablet(s) PO UD 01/07/2016 02/22/2016 Inactive 6-5-4-3-2-1 amlodipine 10 mg tablet RxNorm: 890812 1 Tablet(s) PO daily 11/30/2016 Inactive citalopram 20 mg tablet RxNorm: 913386 TAKE ONE (1) TABLET BY MOUTH DAILY 11/17/2015 02/14/2016 Inactive Generic For:CELEXA 20MG TAB refill request hydrocodone 7.5 mg-acetaminophen 325 mg tablet RxNorm: 379492 1-2 Tablet(s) PO Q4H as needed 10/08/2015 02/02/2016 Inactive losartan 100 mg tablet RxNorm: 034630 Tablet(s) 1 Tablet, 1 time per Day 2015 02/07/2016 Inactive INSURANCE WILL NOT COVER ADELA ANDREWS UNTIL OTHER FORMULARIES HAVE BEEN TRIED AND FAILED citalopram 20 mg tablet RxNorm: 356624 TAKE ONE (1) TABLET BY MOUTH DAILY 08/10/2015 11/07/2015 Inactive Generic For:CELEXA 20MG TAB 08/10/2015 8:59:58 AM Synthroid 75 mcg tablet RxNorm: 698097 Tablet(s) TAKE 1 TABLET BY MOUTH DAILY 05/26/2015 12/21/2015 Inactive Generic For:*SYNTHROID 0.075MG TAB 09/22/2014 10:00 :02 AM N O T I C E PRESCRIPTION PREVIOUSLY AUTHORIZED BY DOCTOR:SWATI BEY prednisone 20 mg tablet RxNorm: 340619 2 Tablet(s) PO daily 06/201505/30/2015 Inactive Lipitor 40 mg tablet RxNorm: 084770 TAKE ONE TABLET BY MOUTH AT BEDTIME 05/14/2015 02/07/2016 Inactive Generic For:LIPITOR 40MG TAB 05/13/2015 8:26:33 AM N O T I C E PRESCRIPTION PREVIOUSLY AUTHORIZED BY DOCTOR:SWATI BEY hydrocodone 7.5 mg-acetaminophen 325 mg tablet RxNorm: 299033 1-2 Tablet(s) PO Q4H as needed 05/11/2015 10/07/2015 Inactive Celebrex 200 mg capsule RxNorm: 670977 1 Capsule(s) PO daily 04/30/2016 Inactive citalopram 20 mg tablet RxNorm: 737526 TAKE ONE (1) TABLET BY MOUTH DAILY 04/27/2015 07/25/2015 Inactive Generic For:CELEXA 20MG TAB 04/26/2015 7:30:08 PM gabapentin 300 mg capsule RxNorm: 169988 1 Capsule(s) PO QID 04/02/2016 Inactive citalopram 20 mg tablet RxNorm: 317378 TAKE ONE (1) TABLET BY MOUTH DAILY 01/26/2015 04/25/2015 Inactive Generic For:CELEXA 20MG TAB 01/26/2015 8:40:11 AM losartan 100 mg tablet RxNorm: 670986 1 Tablet, 1 time per Day 01/26/2015 03/29/2015 Inactive INSURANCE WILL NOT COVER ADELA ANDREWS UNTIL OTHER FORMULARIES HAVE BEEN TRIED AND FAILED hydrocodone 7.5 mg-acetaminophen 325 mg tablet RxNorm: 830614 1-2 Tablet(s) PO Q4H as needed 01/23/2015 05/10/2015 Inactive Neurontin 100 mg capsule RxNorm: 169373 1 Capsule(s) PO TID 03/09/2015 Inactive Neurontin 100 mg capsule RxNorm: 205359 1 Capsule(s) PO TID 01/13/2015 Inactive Keflex 500 mg capsule RxNorm: 321038 1 Capsule(s) PO TID 201401/05/2015 Inactive Keflex 500 mg capsule RxNorm: 756796 1 Capsule(s) PO TID 201401/12/2015 Inactive hydrocodone 7.5 mg-acetaminophen 325 mg tablet RxNorm: 912938 1-2 Tablet(s) PO Q4H as needed 12/29/2014 01/22/2015 Inactive Duexis 800 mg-26.6 mg tablet RxNorm: 4429158 1 Tablet(s) PO TID as needed 12/19/2014 03/29/2015 Inactive Duexis 800 mg-26.6 mg tablet RxNorm: 4829760 1 Tablet(s) PO TID as needed 12/19/2014 12/18/2014 Inactive Kenalog 40 mg/mL suspension for injection RxNorm: 6842672 1 Milliliter(s) Inj 12/09/2014 12/09/2014 Inactive prednisone 10 mg tablets in a dose pack RxNorm: 367741 1 Tablet(s) PO UD 12/09/2014 12/14/2014 Inactive 6-5-4-3-2-1 amlodipine 10 mg tablet RxNorm: 440907 1 Tablet(s) PO daily 11/07/2015 Inactive citalopram 20 mg tablet RxNorm: 423688 TAKE ONE (1) TABLET BY MOUTH DAILY 10/23/2014 01/20/2015 Inactive Generic For:CELEXA 20MG TAB 10/23/2014 4:32:02 PM N O T I C E PRESCRIPTION PREVIOUSLY AUTHORIZED BY DOCTOR:SWATI BEY hydrocodone 7.5 mg-acetaminophen 325 mg tablet RxNorm: 292261 1-2 Tablet(s) PO Q4H as needed 10/22/2014 12/28/2014 Inactive Synthroid 75 mcg tablet RxNorm: 929012 TAKE 1 TABLET BY MOUTH DAILY 09/22/2014 04/19/2015 Inactive Generic For:*SYNTHROID 0.075MG TAB 09/22/2014 10:00:02 AM N O T I C E PRESCRIPTION PREVIOUSLY AUTHORIZED BY DOCTOR:SWATI BEY amlodipine 5 mg tablet RxNorm: 500287 1 Tablet(s) PO daily 07/201411/12/2014 Inactive Synthroid 75 mcg tablet RxNorm: 065501 1 Tablet(s) PO daily ecept a 1/2 tab on Monday07/11/2014 09/21/2014 Inactive Flonase Allergy Relief 50 mcg/actuation nasal spray, suspension RxNorm: 1 [place] NASAL BID 07/10/2014 12/06/2014 Inactive Aldactone 25 mg tablet RxNorm: 947368 1 Tablet(s) PO daily No Start Date Active Benicar 20 mg tablet RxNorm: 705454 1 Tablet(s) PO daily No Start Date Active chlorthalidone 25 mg tablet RxNorm: 765758 1 Tablet(s) PO daily No Start Date Active methotrexate sodium 2.5 mg tablet RxNorm: 941860 3 Tablet(s) PO weekly No Start Date 04/08/2015 Inactive gabapentin 300 mg capsule RxNorm: 803890 1 Capsule(s) PO TID No Start Date 04/08/2015 Inactive Plaquenil 200 mg tablet RxNorm: 976476 1 Tablet(s) PO BID No Start Date 05/22/2016 Inactive losartan 100 mg tablet RxNorm: 146822 1 Tablet(s) PO daily No Start Date 01/25/2015 Inactive Remicade intravenous RxNorm: 081547 intravenous No Start Date 03/23/2017 Inactive amlodipine 5 mg tablet RxNorm: 985679 1 Tablet(s) PO daily No Start Date 08/24/2014 Inactive Celebrex 200 mg capsule RxNorm: 366626 1 Capsule(s) PO daily No Start Date 10/16/2017 Inactive citalopram 20 mg tablet RxNorm: 179794 1 Tablet(s) PO daily No Start Date 10/22/2014 Inactive Synthroid 88 mcg tablet RxNorm: 706939 1 Tablet(s) PO daily No Start Date 07/09/2014 Inactive Arava 20 mg tablet RxNorm: 544417 1 Tablet(s) PO daily No Start Date 01/01/2018 Inactive Lipitor 40 mg tablet RxNorm: 935626 1 Tablet(s) PO daily No Start Date 05/13/2015 Inactive Synthroid 75 mcg tablet RxNorm: 829228 1 Tablet(s) PO daily No Start Date 07/10/2014 Inactive hydrocodone 7.5 mg-acetaminophen 325 mg tablet RxNorm: 029691 Tablet(s) PO as needed No Start Date 10/21/2014 Inactive Medication Administered Medication Codes Instructions Start Date Status Kenalog 40 mg/mL suspension for injection RxNorm: 3266706 1Milliliter 08/08/2016 No longer Active Kenalog 40 mg/mL suspension for injection RxNorm: 0626789 1Milliliter 12/09/2014 No longer Active Immunizations No Immunization data Assessments Condition Codes Effective Dates Other abnormal and inconclusive findings on diagnostic imaging of breast ICD-10: R92.8 ICD-9: 793.89 02/01/2018 Encounter for screening mammogram for malignant neoplasm of breast ICD-10: Z12.31 ICD-9: V76.10 01/05/2018 Encounter for general adult medical examination without abnormal findings ICD-10: Z00.00 ICD-9: V70.0 01/02/2018 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 ICD-10: M05.742 ICD-9: 714.0 12/26/2017 Atrophy of thyroid (acquired) ICD-10: E03.4 ICD-9: 244.8 12/26/2017 Essential (primary) hypertension ICD-10: I10 ICD-9: 401.9 12/26/2017 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 ICD-10: M05.741 ICD-9: 714.0 12/26/2017 Pain in thoracic spine ICD-10: M54.6 ICD-9: 724.1 12/26/2017 Otalgia, left ear ICD-10: H92.02 ICD-9: 388.70 10/17/2017 Pleurisy ICD-10: R09.1 ICD-9: 511.0 08/30/2016 Other pruritus ICD-10: L29.8 ICD-9: 698.1 06/27/2016 Dysuria ICD-10: R30.0 ICD-9: 788.1 06/27/2016 Pain in left toe(s) ICD-10: M79.675 ICD-9: 729.5 05/23/2016 Pain in left foot ICD-10: M79.672 ICD-9: 729.5 05/23/2016 Candidiasis of vulva and vagina ICD-10: B37.3 ICD-9: 112.1 04/18/2016 Pain in left hip ICD-10: M25.552 ICD-9: 719.45 02/23/2016 Pain in right hip ICD-10: M25.551 ICD-9: 719.45 02/23/2016 Functional diarrhea ICD-10: K59.1 ICD-9: 564.5 02/23/2016 Mixed hyperlipidemia ICD-10: E78.2 ICD-9: 272.4 09/15/2015 Major depressive disorder, single episode, unspecified ICD- 10: F32.9 ICD-9: 311 09/15/2015 Rash and other nonspecific skin eruption ICD-10: R21 ICD-9: 782.1 05/26/2015 Sacroiliitis, not elsewhere classified ICD-10: M46.1 ICD-9: 720.2 04/09/2015 Foot drop, left foot ICD-10: M21.372 ICD-9: 736.79 04/09/2015 Sciatica, left side ICD-10: M54.32 ICD-9: 724.3 03/10/2015 Other intervertebral disc degeneration, lumbar region ICD-10 : M51.36 ICD-9: 722.52 03/10/2015 Family history of malignant neoplasm of digestive organs ICD -10: Z80.0 ICD-9: V16.0 03/10/2015 Iliotibial band syndrome, left leg ICD-10: M76.32 ICD-9: 728.89 12/16/2014 Trochanteric bursitis, left hip ICD-10: M70.62 ICD-9: 726.5 12/16/2014 Carpal tunnel syndrome, unspecified upper limb ICD-10: G56.00 ICD-9: 354.0 11/13/2014 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 condition with depressive features ICD-10: F06.31 ICD-9: 311 11/13/2014 ESSENTIAL HYPERTENSION ICD-9: 401.9 07/10 DEPRESSIVE DISORDER NEC ICD-9: 311 2014 Diarrhea ICD-9: 787.91 07/10/2014 HYPERLIPIDEMIA ICD-9: 272.4 07/10/2014 Reason For Visit Reason For Visit Effective Dates Notes Annual Medicare Wellness Exam 01/02/2018 knee pain 12/26/2017 earache 10/17/2017 hypertension 09/27/2017 pleurisy 03/24/2017 pleurisy 08/30/2016 pleurisy 08/08/2016 urinary urgency 06/27/2016 foot pain 05/23/2016 left great toe vaginal discharge 04/18/2016 pelvic pain 03/07/2016 hip pain 02/23/2016 hip pain 09/15/2015 rash 05/26/2015 sciatica 04/09/2015 Annual Medicare Wellness Exam 03/30/2015 sciatica 03/10/2015 sciatica 12/16/2014 sciatica 12/09/2014 blood pressure followup 11/13/2014 cough 07/10/2014 Results Observation Observation Code Item Item Code Result Date Tsh Ord6 TSH (3rd IS) 0.68 uIU/mL 12/26/2017 Sed Rate Ord21 ESR 30 mm/hr 12/26/2017 Cbc With Differential Ord2 WBC 7.80 K/ul 12/26/2017 Cbc With Differential Ord2 RBC 4.05 M/ul 12/26/2017 Cbc With Differential Ord2 HGB 12.6 g/dl 12/26/2017 Cbc With Differential Ord2 HCT 37.1 % 12/26/2017 Cbc With Differential Ord2 Neut% 69.0 % 12/26/2017 Cbc With Differential Ord2 MCV 91.6 fl 12/26/2017 Cbc With Differential Ord2 Lymph% 19.6 % 12/26/2017 Cbc With Differential Ord2 MCH 31.1 pg 12/26/2017 Cbc With Differential Ord2 [place]% 9.2 % 12/26/2017 Cbc With Differential Ord2 MCHC 34.0 pg 12/26/2017 Cbc With Differential Ord2 Eos% 1.7 % 12/26/2017 Cbc With Differential Ord2 PLT 302 K/ul 12/26/2017 Cbc With Differential Ord2 Baso% 0.5 % 12/26/2017 Cbc With Differential Ord2 RDW 13.7 % 12/26/2017 Cbc With Differential Ord2 Neut ABS# 5.38 K/ul 12/26/2017 Cbc With Differential Ord2 Lymph ABS# 1.53 K/ul 12/26/2017 Cbc With Differential Ord2 [place] ABS# 0.7 K/ul 12/26/2017 Cbc With Differential Ord2 Eos ABS# 0.1 K/ul 12/26/2017 Cbc With Differential Ord2 Baso ABS# 0.0 K/ul 12/26/2017 Free T4 Hsv364 FREE T4 0.93 ng/dL 12/26/2017 Comp Metabolic Utw566 NA 135 mEq/L 12/26/2017 Comp Metabolic Ukg678 K 4.4 mEq/L 12/26/2017 Comp Metabolic Ghm305 CL 98 mEq/L 12/26/2017 Comp Metabolic Zim256 CO2 28.0 mEq/L 12/26/2017 Comp Metabolic Azg419 ANION GAP 13 12/26/2017 Comp Metabolic Jyf268 GLUCOSE 92 mg/dL 12/26/2017 Comp Metabolic Lxx837 Creat 1.1 mg/dL 12/26/2017 Comp Metabolic Stx651 eGFR 52 ml/min/1.73m2 12/26/2017 Comp Metabolic Spv616 BUN 25 mg/dL 12/26/2017 Comp Metabolic Iki678 B/C Ratio 22.7 Ratio 12/26/2017 Comp Metabolic Kse644 CALCIUM 9.8 mg/dL 12/26/2017 Comp Metabolic Bxv855 ALK PHOS 91 U/L 12/26/2017 Comp Metabolic Iqm932 AST(SGOT) 16 U/L 12/26/2017 Comp Metabolic Tfb906 ALT(SGPT) 12 U/L 12/26/2017 Comp Metabolic Szx603 BILI T 0.5 mg/dL 12/26/2017 Comp Metabolic Ivd041 ALBUMIN 4.3 g/dL 12/26/2017 Comp Metabolic Usp415 TPRO 6.8 g/dL 12/26/2017 Comp Metabolic Qpp254 GLOB 2.5 g/dL 12/26/2017 Comp Metabolic Pke799 A/G Ratio 1.7 Ratio 12/26/2017 Comp Metabolic Tqc769 Osmo 274 mOsmo 12/26/2017 Urine Culture Ucult Complete NO Growth Day 2 06/29/2016 Urine Culture Ucult Preliminary NO Growth Day 1 06/29/2016 Culture Urine [id number] URINE CULTURE SEE NOTES 04/22/2016 Culture Urine [id number] Continued Results 04/22/2016 Urine Culture Ucult Complete >100,000 col/ml aerobic growth sent to ref lab 04/20/2016 Comp Metabolic Qhd995 NA 137 mEq/L 02/10/2016 Comp Metabolic Iac973 K 4.1 mEq/L 02/10/2016 Comp Metabolic Epb884 CL 102 mEq/L 02/10/2016 Comp Metabolic Nct284 CO2 28.0 mEq/L 02/10/2016 Comp Metabolic Hnj804 ANION GAP 11 02/10/2016 Comp Metabolic Bfi464 GLUCOSE 104 mg/dL 02/10/2016 Comp Metabolic Yvy740 Creat 0.7 mg/dL 02/10/2016 Comp Metabolic Xvl282 eGFR 83 ml/min/1.73m2 02/10/2016 Comp Metabolic Vmd813 BUN 14 mg/dL 02/10/2016 Comp Metabolic Ipg240 B/C Ratio 18.9 Ratio 02/10/2016 Comp Metabolic Ovi370 CALCIUM 9.7 mg/dL 02/10/2016 Comp Metabolic Dta216 ALK PHOS 121 U/L 02/10/2016 Comp Metabolic Sgu840 AST(SGOT) 19 U/L 02/10/2016 Comp Metabolic Gtj810 ALT(SGPT) 13 U/L 02/10/2016 Comp Metabolic Xtu569 BILI T 0.5 mg/dL 02/10/2016 Comp Metabolic Shk415 ALBUMIN 4.3 g/dL 02/10/2016 Comp Metabolic Hfl486 TPRO 6.8 g/dL 02/10/2016 Comp Metabolic Slk114 GLOB 2.5 g/dL 02/10/2016 Comp Metabolic Imb723 A/G Ratio 1.7 Ratio 02/10/2016 Comp Metabolic Eco507 Osmo 275 mOsmo 02/10/2016 Lipid Ord30 CHOL 229 mg/dL 02/10/2016 Lipid Ord30 HDL 59.0 mg/dl 02/10/2016 Lipid Ord30 TRIG 252 mg/dL 02/10/2016 Lipid Ord30 LDL 120 mg/dL 02/10/2016 Lipid Ord30 C/HDL 3.9 Ratio 02/10/2016 Free T4 Ugj082 FREE T4 0.87 ng/dL 02/10/2016 Tsh Ord6 hTSH II 0.79 uIU/mL 02/10/2016 Cbc With Differential Ord2 WBC 5.85 K/ul 02/10/2016 Cbc With Differential Ord2 RBC 4.39 M/ul 02/10/2016 Cbc With Differential Ord2 HGB 12.8 g/dl 02/10/2016 Cbc With Differential Ord2 HCT 40.1 % 02/10/2016 Cbc With Differential Ord2 Neut% 47.1 % 02/10/2016 Cbc With Differential Ord2 Lymph% 30.9 % 02/10/2016 Cbc With Differential Ord2 MCV 91.3 fl 02/10/2016 Cbc With Differential Ord2 MCH 29.2 pg 02/10/2016 Cbc With Differential Ord2 [place]% 18.6 % 02/10/2016 Cbc With Differential Ord2 MCHC 31.9 pg 02/10/2016 Cbc With Differential Ord2 Eos% 2.4 % 02/10/2016 Cbc With Differential Ord2 PLT 291 K/ul 02/10/2016 Cbc With Differential Ord2 Baso% 1.0 % 02/10/2016 Cbc With Differential Ord2 RDW 14.0 % 02/10/2016 Cbc With Differential Ord2 Neut ABS# 2.75 K/ul 02/10/2016 Cbc With Differential Ord2 Lymph ABS# 1.81 K/ul 02/10/2016 Cbc With Differential Ord2 [place] ABS# 1.1 K/ul 02/10/2016 Cbc With Differential Ord2 Eos ABS# 0.1 K/ul 02/10/2016 Cbc With Differential Ord2 Baso ABS# 0.1 K/ul 02/10/2016 Tsh Ord6 hTSH II 0.85 uIU/mL 04/02/2015 Lipid Ord30 CHOL 207 mg/dL 04/02/2015 Lipid Ord30 HDL 68.0 mg/dl 04/02/2015 Lipid Ord30 TRIG 193 mg/dL 04/02/2015 Lipid Ord30 LDL 100 mg/dL 04/02/2015 Lipid Ord30 C/HDL 3.0 Ratio 04/02/2015 Free T4 Eil249 FREE T4 1.09 ng/dL 04/02/2015 Free T4 Xzo974 FREE T4 0.82 ng/dL 10/15/2014 Tsh Ord6 hTSH II 0.80 uIU/mL 10/15/2014 Review of Systems System Result Effective Dates Constitutional No recent illness 2017 Constitutional No chills 01/02/2018 Constitutional No diaphoresis 01/02/2018 Constitutional No fatigue 01/02/2018 Constitutional No fever 01/02/2018 Constitutional No insomnia 01/02/2018 Constitutional No malaise 01/02/2018 Eyes No blindness 01/02/2018 Eyes No vision change 01/02/2018 Ears/Nose/Throat/Neck No dizziness 2017 Ears/Nose/Throat/Neck nasal allergies Ears/Nose/Throat/Neck No sore throat Cardiovascular No chest pain/pressure Cardiovascular No edema 01/02/2018 Cardiovascular No exercise intolerance Cardiovascular No fatigue 01/02/2018 Cardiovascular No palpitations 2017 Cardiovascular No syncope 01/02/2018 Respiratory No chest congestion 2017 Respiratory No cough 01/02/2018 Gastrointestinal No abdominal pain 2017 Gastrointestinal No constipation 2017 Genitourinary/Nephrology No dysuria 01/02 Genitourinary/Nephrology No nocturia Genitourinary/Nephrology No urinary incontinence 01/02/2018 Musculoskeletal stiffness 01/02/2018 Musculoskeletal No swelling 01/02/2018 Musculoskeletal arthralgia(s) 01/02/2018 Musculoskeletal back pain 01/02/2018 Musculoskeletal joint complaint 2017 Musculoskeletal No muscle weakness 2017 Musculoskeletal No myalgias 01/02/2018 Dermatologic No rash 01/02/2018 Neurologic No alteration of consciousness 01/02/2018 Neurologic No mental status change 2017 Psychiatric No anxiety 01/02/2018 Psychiatric No depression 01/02/2018 Constitutional No recent illness 2017 Constitutional No chills 12/26/2017 Constitutional No diaphoresis 12/26/2017 Constitutional No fatigue 12/26/2017 Constitutional No fever 12/26/2017 Constitutional No insomnia 12/26/2017 Constitutional No malaise 12/26/2017 Eyes No blindness 12/26/2017 Eyes No vision change 12/26/2017 Ears/Nose/Throat/Neck No dizziness 2017 Ears/Nose/Throat/Neck nasal allergies 07/2017 Ears/Nose/Throat/Neck No sore throat 07/2017 Cardiovascular No chest pain/pressure 07/2017 Cardiovascular No edema 12/26/2017 Cardiovascular No exercise intolerance Cardiovascular No fatigue 12/26/2017 Cardiovascular No palpitations 2017 Cardiovascular No syncope 12/26/2017 Respiratory No chest congestion 2017 Respiratory No cough 12/26/2017 Gastrointestinal No abdominal pain 2017 Gastrointestinal No constipation 2017 Genitourinary/Nephrology No dysuria 12/26 Genitourinary/Nephrology No nocturia 07/2017 Genitourinary/Nephrology No urinary incontinence 12/26/2017 Musculoskeletal stiffness 12/26/2017 Musculoskeletal No swelling 12/26/2017 Musculoskeletal arthralgia(s) 12/26/2017 Musculoskeletal joint complaint 2017 Musculoskeletal No muscle weakness 2017 Musculoskeletal No myalgias 12/26/2017 Dermatologic No rash 12/26/2017 Neurologic No alteration of consciousness 12/26/2017 Neurologic No mental status change 2017 Psychiatric No anxiety 12/26/2017 Psychiatric No depression 12/26/2017 Musculoskeletal back pain 12/26/2017 Constitutional No recent illness 2017 Constitutional No anorexia 10/17/2017 Constitutional No night sweats 2017 Constitutional No chills 10/17/2017 Constitutional No diaphoresis 10/17/2017 Constitutional No fatigue 10/17/2017 Constitutional No fever 10/17/2017 Constitutional No insomnia 10/17/2017 Constitutional No malaise 10/17/2017 Constitutional No weight gain 10/17/2017 Constitutional No weight loss 10/17/2017 Eyes No eye discharge 10/17/2017 Eyes No eye erythema 10/17/2017 Ears/Nose/Throat/Neck No headache 2017 Ears/Nose/Throat/Neck No nasal discharge 10/17/2017 Ears/Nose/Throat/Neck nasal allergies Ears/Nose/Throat/Neck otalgia 10/17/2017 Cardiovascular No chest pain/pressure Respiratory No cough 10/17/2017 Cardiovascular hypertension 10/17/2017 Gastrointestinal No abdominal pain 2017 Gastrointestinal No constipation 2017 Gastrointestinal No diarrhea 10/17/2017 Genitourinary/Nephrology No dysuria 10/17 Musculoskeletal No joint complaint 2017 Dermatologic No rash 10/17/2017 Cardiovascular edema 10/17/2017 Constitutional No recent illness 2017 Constitutional No chills 09/27/2017 Constitutional No diaphoresis 09/27/2017 Constitutional No fatigue 09/27/2017 Constitutional No fever 09/27/2017 Constitutional No insomnia 09/27/2017 Constitutional No malaise 09/27/2017 Eyes No blindness 09/27/2017 Eyes No vision change 09/27/2017 Ears/Nose/Throat/Neck No dizziness 2017 Ears/Nose/Throat/Neck nasal allergies 09/2017 Ears/Nose/Throat/Neck No sore throat 09/2017 Cardiovascular No chest pain/pressure 09/2017 Cardiovascular No edema 09/27/2017 Cardiovascular No exercise intolerance Cardiovascular No fatigue 09/27/2017 Cardiovascular No palpitations 2017 Cardiovascular No syncope 09/27/2017 Gastrointestinal No abdominal pain 2017 Gastrointestinal No constipation 2017 Gastrointestinal diarrhea 09/27/2017 Genitourinary/Nephrology No dysuria 09/27 Genitourinary/Nephrology No nocturia 09/2017 Genitourinary/Nephrology No urinary incontinence 09/27/2017 Musculoskeletal stiffness 09/27/2017 Musculoskeletal No swelling 09/27/2017 Musculoskeletal arthralgia(s) 09/27/2017 Musculoskeletal joint complaint 2017 Musculoskeletal No muscle weakness 2017 Musculoskeletal No myalgias 09/27/2017 Dermatologic No rash 09/27/2017 Neurologic No alteration of consciousness 09/27/2017 Neurologic No mental status change 2017 Psychiatric No anxiety 09/27/2017 Psychiatric No depression 09/27/2017 Respiratory No cough 09/27/2017 Respiratory No chest congestion 2017 Constitutional No recent illness 2017 Constitutional No chills 03/24/2017 Constitutional No diaphoresis 03/24/2017 Constitutional No fatigue 03/24/2017 Constitutional No fever 03/24/2017 Constitutional No insomnia 03/24/2017 Constitutional No malaise 03/24/2017 Eyes No blindness 03/24/2017 Eyes No vision change 03/24/2017 Ears/Nose/Throat/Neck No dizziness 2017 Ears/Nose/Throat/Neck nasal allergies 03/2017 Ears/Nose/Throat/Neck No sore throat 03/2017 Cardiovascular No chest pain/pressure 03/2017 Cardiovascular No edema 03/24/2017 Cardiovascular No exercise intolerance Cardiovascular No fatigue 03/24/2017 Cardiovascular No palpitations 2017 Cardiovascular No syncope 03/24/2017 Gastrointestinal No abdominal pain 2017 Gastrointestinal No constipation 2017 Gastrointestinal diarrhea 03/24/2017 Genitourinary/Nephrology No dysuria 03/24 Genitourinary/Nephrology No nocturia 03/2017 Genitourinary/Nephrology No urinary incontinence 03/24/2017 Musculoskeletal stiffness 03/24/2017 Musculoskeletal No swelling 03/24/2017 Musculoskeletal arthralgia(s) 03/24/2017 Musculoskeletal No muscle weakness 2017 Musculoskeletal No myalgias 03/24/2017 Dermatologic No rash 03/24/2017 Neurologic No alteration of consciousness 03/24/2017 Neurologic No mental status change 2017 Psychiatric No anxiety 03/24/2017 Psychiatric No depression 03/24/2017 Musculoskeletal joint complaint 2017 Constitutional No recent illness 2016 Constitutional No chills 08/30/2016 Constitutional No diaphoresis 08/30/2016 Constitutional No fatigue 08/30/2016 Constitutional No fever 08/30/2016 Constitutional No insomnia 08/30/2016 Constitutional No malaise 08/30/2016 Eyes No blindness 08/30/2016 Eyes No vision change 08/30/2016 Ears/Nose/Throat/Neck No dizziness 2016 Ears/Nose/Throat/Neck nasal allergies 12/2016 Ears/Nose/Throat/Neck No sore throat 12/2016 Cardiovascular No chest pain/pressure 12/2016 Cardiovascular No edema 08/30/2016 Cardiovascular No exercise intolerance Cardiovascular No fatigue 08/30/2016 Cardiovascular No palpitations 2016 Cardiovascular No syncope 08/30/2016 Gastrointestinal No abdominal pain 2016 Gastrointestinal No constipation 2016 Gastrointestinal diarrhea 08/30/2016 Genitourinary/Nephrology No dysuria 08/30 Genitourinary/Nephrology No nocturia 12/2016 Genitourinary/Nephrology No urinary incontinence 08/30/2016 Musculoskeletal stiffness 08/30/2016 Musculoskeletal No swelling 08/30/2016 Musculoskeletal arthralgia(s) 08/30/2016 Musculoskeletal No muscle weakness 2016 Musculoskeletal No myalgias 08/30/2016 Dermatologic No rash 08/30/2016 Neurologic No alteration of consciousness 08/30/2016 Neurologic No mental status change 2016 Psychiatric No anxiety 08/30/2016 Psychiatric No depression 08/30/2016 Constitutional recent illness 08/08/2016 Constitutional No anorexia 08/08/2016 Constitutional No night sweats 2016 Constitutional No chills 08/08/2016 Constitutional No fever 08/08/2016 Constitutional No fatigue 08/08/2016 Constitutional No diaphoresis 08/08/2016 Constitutional No insomnia 08/08/2016 Constitutional No malaise 08/08/2016 Constitutional No weight gain 08/08/2016 Constitutional No weight loss 08/08/2016 Eyes No eye discharge 08/08/2016 Eyes No eye erythema 08/08/2016 Ears/Nose/Throat/Neck No dizziness 2016 Ears/Nose/Throat/Neck No headache 2016 Cardiovascular No chest pain/pressure Cardiovascular No dyspnea 08/08/2016 Cardiovascular No edema 08/08/2016 Respiratory No productive sputum 2016 Respiratory pleuritic pain 08/08/2016 Respiratory No cough 08/08/2016 Gastrointestinal No abdominal pain 2016 Genitourinary/Nephrology No dysuria 08/08 Musculoskeletal No joint complaint 2016 Dermatologic No rash 08/08/2016 Neurologic No alteration of consciousness 08/08/2016 Constitutional recent illness 06/27/2016 Constitutional No fever 06/27/2016 Constitutional No diaphoresis 06/27/2016 Constitutional No chills 06/27/2016 Eyes No eye erythema 06/27/2016 Ears/Nose/Throat/Neck No nasal allergies 06/27/2016 Ears/Nose/Throat/Neck No nasal discharge 06/27/2016 Cardiovascular No chest pain/pressure 09/2016 Respiratory No dyspnea 06/27/2016 Genitourinary/Nephrology dysuria 2016 Genitourinary/Nephrology urinary urgency 06/27/2016 Genitourinary/Nephrology urinary frequency 06/27/2016 Genitourinary/Nephrology vaginal discharge 06/27/2016 Musculoskeletal No joint complaint 2016 Neurologic No alteration of consciousness 06/27/2016 Neurologic No mental status change 2016 Musculoskeletal joint complaint 2016 Musculoskeletal swelling 05/23/2016 Musculoskeletal arthralgia(s) 05/23/2016 Constitutional No recent illness 2016 Constitutional No night sweats 2016 Constitutional No anorexia 05/23/2016 Constitutional No chills 05/23/2016 Constitutional No diaphoresis 05/23/2016 Constitutional No fatigue 05/23/2016 Constitutional No fever 05/23/2016 Constitutional No insomnia 05/23/2016 Constitutional No malaise 05/23/2016 Constitutional No weight loss 05/23/2016 Constitutional No weight gain 05/23/2016 Constitutional No recent illness 2016 Constitutional No fever 04/18/2016 Eyes No eye erythema 04/18/2016 Ears/Nose/Throat/Neck No nasal allergies 04/18/2016 Ears/Nose/Throat/Neck No nasal discharge 04/18/2016 Cardiovascular No chest pain/pressure Cardiovascular No dyspnea 04/18/2016 Respiratory No cough 04/18/2016 Respiratory No dyspnea 04/18/2016 Gastrointestinal No abdominal pain 2016 Genitourinary/Nephrology No genital lesion 04/18/2016 Neurologic No alteration of consciousness 04/18/2016 Neurologic No mental status change 2016 Genitourinary/Nephrology No flank pain Genitourinary/Nephrology No hematuria Genitourinary/Nephrology No pelvic pain 04/18/2016 Constitutional No recent illness 2016 Constitutional No fever 03/07/2016 Eyes No eye erythema 03/07/2016 Ears/Nose/Throat/Neck No nasal allergies 03/07/2016 Ears/Nose/Throat/Neck No nasal discharge 03/07/2016 Cardiovascular No chest pain/pressure Cardiovascular No dyspnea 03/07/2016 Respiratory No cough 03/07/2016 Respiratory No dyspnea 03/07/2016 Gastrointestinal diarrhea 03/07/2016 Gastrointestinal No abdominal pain 2016 Genitourinary/Nephrology No vaginal discharge 03/07/2016 Genitourinary/Nephrology No genital lesion 03/07/2016 Genitourinary/Nephrology No dysuria 03/07 Neurologic No alteration of consciousness 03/07/2016 Neurologic No mental status change 2016 Constitutional No recent illness 2016 Constitutional No chills 02/23/2016 Constitutional No diaphoresis 02/23/2016 Constitutional No fatigue 02/23/2016 Constitutional No fever 02/23/2016 Constitutional No insomnia 02/23/2016 Constitutional No malaise 02/23/2016 Eyes No blindness 02/23/2016 Eyes No vision change 02/23/2016 Ears/Nose/Throat/Neck No dizziness 2016 Ears/Nose/Throat/Neck nasal allergies 04/2016 Ears/Nose/Throat/Neck No sore throat 04/2016 Cardiovascular No chest pain/pressure 04/2016 Cardiovascular No edema 02/23/2016 Cardiovascular No exercise intolerance Cardiovascular No fatigue 02/23/2016 Cardiovascular No palpitations 2016 Cardiovascular No syncope 02/23/2016 Gastrointestinal No abdominal pain 2016 Gastrointestinal No constipation 2016 Genitourinary/Nephrology No dysuria 02/22 Genitourinary/Nephrology No nocturia 04/2016 Genitourinary/Nephrology No urinary incontinence 02/23/2016 Musculoskeletal stiffness 02/23/2016 Musculoskeletal No swelling 02/23/2016 Musculoskeletal arthralgia(s) 02/23/2016 Musculoskeletal No muscle weakness 2016 Musculoskeletal No myalgias 02/23/2016 Dermatologic No rash 02/23/2016 Neurologic No alteration of consciousness 02/23/2016 Neurologic No mental status change 2016 Psychiatric No anxiety 02/23/2016 Psychiatric No depression 02/23/2016 Gastrointestinal diarrhea 02/23/2016 Constitutional No recent illness 2015 Constitutional No chills 09/15/2015 Constitutional No diaphoresis 09/15/2015 Constitutional No fatigue 09/15/2015 Constitutional No fever 09/15/2015 Constitutional No insomnia 09/15/2015 Constitutional No malaise 09/15/2015 Eyes No blindness 09/15/2015 Eyes No vision change 09/15/2015 Ears/Nose/Throat/Neck No dizziness 2015 Ears/Nose/Throat/Neck nasal allergies Ears/Nose/Throat/Neck No sore throat Cardiovascular No chest pain/pressure Cardiovascular No edema 09/15/2015 Cardiovascular No exercise intolerance Cardiovascular No fatigue 09/15/2015 Cardiovascular No palpitations 2015 Cardiovascular No syncope 09/15/2015 Gastrointestinal No abdominal pain 2015 Gastrointestinal No constipation 2015 Gastrointestinal No vomiting 09/15/2015 Genitourinary/Nephrology No dysuria 09/14 Genitourinary/Nephrology No nocturia Genitourinary/Nephrology No urinary incontinence 09/15/2015 Musculoskeletal stiffness 09/15/2015 Musculoskeletal No swelling 09/15/2015 Musculoskeletal arthralgia(s) 09/15/2015 Musculoskeletal No muscle weakness 2015 Musculoskeletal No myalgias 09/15/2015 Dermatologic No rash 09/15/2015 Neurologic No alteration of consciousness 09/15/2015 Neurologic No mental status change 2015 Psychiatric No anxiety 09/15/2015 Psychiatric No depression 09/15/2015 Constitutional No recent illness 2015 Constitutional No chills 05/26/2015 Constitutional No diaphoresis 05/26/2015 Constitutional No fatigue 05/26/2015 Constitutional No fever 05/26/2015 Constitutional No insomnia 05/26/2015 Constitutional No malaise 05/26/2015 Eyes No eye erythema 05/26/2015 Eyes No vision change 05/26/2015 Ears/Nose/Throat/Neck No sore throat 06/2015 Cardiovascular No chest pain/pressure 06/2015 Respiratory No cough 05/26/2015 Respiratory No dyspnea 05/26/2015 Gastrointestinal No vomiting 05/26/2015 Dermatologic rash 05/26/2015 Neurologic No alteration of consciousness 05/26/2015 Neurologic No mental status change 2015 Ears/Nose/Throat/Neck No nasal allergies 05/26/2015 Ears/Nose/Throat/Neck No nasal discharge 05/26/2015 Ears/Nose/Throat/Neck No sinus congestion 05/26/2015 Cardiovascular No dyspnea 05/26/2015 Respiratory No chest congestion 2015 Gastrointestinal No nausea 05/26/2015 Constitutional No recent illness 2015 Constitutional No chills 04/09/2015 Constitutional No diaphoresis 04/09/2015 Constitutional No fatigue 04/09/2015 Constitutional No fever 04/09/2015 Constitutional No insomnia 04/09/2015 Constitutional No malaise 04/09/2015 Eyes No blindness 04/09/2015 Eyes No vision change 04/09/2015 Ears/Nose/Throat/Neck No dizziness 2015 Ears/Nose/Throat/Neck No sore throat Cardiovascular No chest pain/pressure Cardiovascular No edema 04/09/2015 Cardiovascular No exercise intolerance Cardiovascular No fatigue 04/09/2015 Cardiovascular No palpitations 2015 Cardiovascular No syncope 04/09/2015 Respiratory No chest tightness 2015 Respiratory No cigarette smoking 2015 Respiratory No cough 04/09/2015 Respiratory No dyspnea 04/09/2015 Respiratory No pedal edema 04/09/2015 Respiratory No snoring 04/09/2015 Respiratory No wheezing 04/09/2015 Gastrointestinal No abdominal pain 2015 Gastrointestinal No constipation 2015 Gastrointestinal No vomiting 04/09/2015 Genitourinary/Nephrology No dysuria 04/09 Genitourinary/Nephrology No nocturia Genitourinary/Nephrology No urinary incontinence 04/09/2015 Musculoskeletal stiffness 04/09/2015 Musculoskeletal No swelling 04/09/2015 Musculoskeletal arthralgia(s) 04/09/2015 Musculoskeletal No muscle weakness 2015 Musculoskeletal No myalgias 04/09/2015 Dermatologic No rash 04/09/2015 Neurologic No alteration of consciousness 04/09/2015 Neurologic gait abnormality 04/09/2015 Neurologic No mental status change 2015 Neurologic weakness 04/09/2015 Psychiatric No anxiety 04/09/2015 Psychiatric No depression 04/09/2015 Constitutional No recent illness 2015 Musculoskeletal back pain 03/30/2015 Constitutional No diaphoresis 03/30/2015 Constitutional No chills 03/30/2015 Constitutional fatigue 03/30/2015 Constitutional No fever 03/30/2015 Constitutional No malaise 03/30/2015 Constitutional No insomnia 03/30/2015 Eyes No vision change 03/30/2015 Eyes No eye discharge 03/30/2015 Eyes No eye erythema 03/30/2015 Ears/Nose/Throat/Neck No dizziness 2015 Ears/Nose/Throat/Neck No headache 2015 Ears/Nose/Throat/Neck No facial pain 09/2015 Ears/Nose/Throat/Neck No dental pain 09/2015 Ears/Nose/Throat/Neck No nasal allergies 03/30/2015 Ears/Nose/Throat/Neck No nasal discharge 03/30/2015 Ears/Nose/Throat/Neck No hearing loss 09/2015 Ears/Nose/Throat/Neck No hoarseness 03/30 Ears/Nose/Throat/Neck No sinus congestion 03/30/2015 Cardiovascular No chest pain/pressure 09/2015 Cardiovascular No dyspnea 03/30/2015 Cardiovascular No edema 03/30/2015 Cardiovascular fatigue 03/30/2015 Respiratory No chest congestion 2015 Respiratory No cough 03/30/2015 Gastrointestinal No abdominal pain 2015 Gastrointestinal No diarrhea 03/30/2015 Gastrointestinal No constipation 2015 Gastrointestinal No gastroesophageal reflux 03/30/2015 Gastrointestinal No nausea 03/30/2015 Gastrointestinal No melena 03/30/2015 Genitourinary/Nephrology No dysuria 03/30 Genitourinary/Nephrology No flank pain Dermatologic No rash 03/30/2015 Dermatologic No sores 03/30/2015 Neurologic No alteration of consciousness 03/30/2015 Neurologic No dyskinesia or tremor 2015 Psychiatric No anxiety 03/30/2015 Psychiatric No depression 03/30/2015 Endocrine No cold sensitivity 03/30/2015 Respiratory No dyspnea 03/30/2015 Neurologic gait abnormality 03/30/2015 Constitutional No recent illness 2015 Constitutional No chills 03/10/2015 Constitutional No diaphoresis 03/10/2015 Constitutional No fatigue 03/10/2015 Constitutional No fever 03/10/2015 Constitutional No insomnia 03/10/2015 Constitutional No malaise 03/10/2015 Eyes No blindness 03/10/2015 Eyes No vision change 03/10/2015 Ears/Nose/Throat/Neck No dizziness 2015 Ears/Nose/Throat/Neck No sore throat Cardiovascular No chest pain/pressure Cardiovascular No edema 03/10/2015 Cardiovascular No exercise intolerance Cardiovascular No fatigue 03/10/2015 Cardiovascular No palpitations 2015 Cardiovascular No syncope 03/10/2015 Gastrointestinal No abdominal pain 2015 Gastrointestinal No constipation 2015 Gastrointestinal No vomiting 03/10/2015 Genitourinary/Nephrology No dysuria 03/10 Genitourinary/Nephrology No nocturia Genitourinary/Nephrology No urinary incontinence 03/10/2015 Musculoskeletal stiffness 03/10/2015 Musculoskeletal No swelling 03/10/2015 Musculoskeletal arthralgia(s) 03/10/2015 Musculoskeletal No muscle weakness 2015 Musculoskeletal No myalgias 03/10/2015 Dermatologic No rash 03/10/2015 Neurologic No alteration of consciousness 03/10/2015 Neurologic No mental status change 2015 Psychiatric No anxiety 03/10/2015 Psychiatric No depression 03/10/2015 Respiratory No chest tightness 2015 Respiratory No cigarette smoking 2015 Respiratory No cough 03/10/2015 Respiratory No dyspnea 03/10/2015 Respiratory No pedal edema 03/10/2015 Respiratory No snoring 03/10/2015 Respiratory No wheezing 03/10/2015 Neurologic gait abnormality 03/10/2015 Neurologic weakness 03/10/2015 Constitutional No recent illness 2014 Constitutional No anorexia 12/16/2014 Constitutional No night sweats 2014 Constitutional No chills 12/16/2014 Constitutional No diaphoresis 12/16/2014 Constitutional No fatigue 12/16/2014 Constitutional No fever 12/16/2014 Constitutional No insomnia 12/16/2014 Constitutional No malaise 12/16/2014 Constitutional No weight loss 12/16/2014 Constitutional No weight gain 12/16/2014 Musculoskeletal joint complaint 2014 Musculoskeletal back pain 12/16/2014 Musculoskeletal sciatica 12/16/2014 Dermatologic No rash 12/16/2014 Dermatologic No sores 12/16/2014 Neurologic No alteration of consciousness 12/16/2014 Constitutional No recent illness 2014 Constitutional No anorexia 12/09/2014 Constitutional No night sweats 2014 Constitutional No chills 12/09/2014 Constitutional No diaphoresis 12/09/2014 Constitutional No fatigue 12/09/2014 Constitutional No weight gain 12/09/2014 Constitutional No weight loss 12/09/2014 Constitutional No malaise 12/09/2014 Constitutional No insomnia 12/09/2014 Constitutional No fever 12/09/2014 Musculoskeletal sciatica 12/09/2014 Musculoskeletal back pain 12/09/2014 Gastrointestinal No diarrhea 12/09/2014 Genitourinary/Nephrology No urinary incontinence 12/09/2014 Constitutional No recent illness 2014 Constitutional No chills 11/13/2014 Constitutional No diaphoresis 11/13/2014 Constitutional No fatigue 11/13/2014 Constitutional No fever 11/13/2014 Constitutional No insomnia 11/13/2014 Constitutional No malaise 11/13/2014 Eyes No blindness 11/13/2014 Eyes No vision change 11/13/2014 Ears/Nose/Throat/Neck No dizziness 2014 Ears/Nose/Throat/Neck No sore throat Cardiovascular No chest pain/pressure Cardiovascular No edema 11/13/2014 Cardiovascular No exercise intolerance Cardiovascular No fatigue 11/13/2014 Cardiovascular No palpitations 2014 Cardiovascular No syncope 11/13/2014 Gastrointestinal No abdominal pain 2014 Gastrointestinal No constipation 2014 Gastrointestinal No vomiting 11/13/2014 Genitourinary/Nephrology No dysuria 11/13 Genitourinary/Nephrology No nocturia Genitourinary/Nephrology No urinary incontinence 11/13/2014 Musculoskeletal stiffness 11/13/2014 Musculoskeletal No swelling 11/13/2014 Musculoskeletal arthralgia(s) 11/13/2014 Musculoskeletal No muscle weakness 2014 Musculoskeletal No myalgias 11/13/2014 Dermatologic No rash 11/13/2014 Neurologic No alteration of consciousness 11/13/2014 Neurologic No mental status change 2014 Psychiatric No anxiety 11/13/2014 Psychiatric No depression 11/13/2014 Constitutional No chills 07/10/2014 Constitutional No diaphoresis 07/10/2014 Constitutional No fatigue 07/10/2014 Constitutional No fever 07/10/2014 Constitutional No insomnia 07/10/2014 Constitutional No malaise 07/10/2014 Constitutional No recent illness 2014 Ears/Nose/Throat/Neck No dizziness 2014 Ears/Nose/Throat/Neck No sore throat Cardiovascular No chest pain/pressure Cardiovascular No edema 07/10/2014 Cardiovascular No exercise intolerance Cardiovascular No fatigue 07/10/2014 Cardiovascular No palpitations 2014 Cardiovascular No syncope 07/10/2014 Respiratory chest congestion 07/10/2014 Respiratory cough 07/10/2014 Gastrointestinal No abdominal pain 2014 Gastrointestinal No constipation 2014 Gastrointestinal diarrhea 07/10/2014 Gastrointestinal nausea 07/10/2014 Gastrointestinal No vomiting 07/10/2014 Dermatologic No rash 07/10/2014 Neurologic No alteration of consciousness 07/10/2014 Neurologic No mental status change 2014 Genitourinary/Nephrology No dysuria 07/10 Genitourinary/Nephrology No nocturia Genitourinary/Nephrology No urinary incontinence 07/10/2014 Musculoskeletal stiffness 07/10/2014 Musculoskeletal No swelling 07/10/2014 Musculoskeletal No muscle weakness 2014 Musculoskeletal No myalgias 07/10/2014 Musculoskeletal arthralgia(s) 07/10/2014 Ears/Nose/Throat/Neck nasal allergies Psychiatric No anxiety 07/10/2014 Psychiatric No depression 07/10/2014 Eyes No blindness 07/10/2014 Eyes No vision change 07/10/2014 Physical Exam Exam Name System Name Item Name Status Result Effective Dates Notes Full Exam - General 1994 Constitutional general appearance Development: well developed 01/02/2018 None Full Exam - General 1994 Constitutional general appearance Development: appears stated age 1101/02/2018 None Full Exam - General 1994 Constitutional general appearance Hygiene/Attention to Grooming: good hygiene 01/02/2018 None Full Exam - General 1994 Eyes conjunctiva /eyelids Overall: conjunctiva clear 01/02/2018 None Full Exam - General 1994 Eyes conjunctiva /eyelids Overall: cornea clear 01/02/2018 None Full Exam - General 1994 Eyes conjunctiva /eyelids Overall: eyelids normal 01/02/2018 None Full Exam - General 1994 Eyes pupils and irises Overall: pupils equal, round, reactive to light and accomodation 01/02/2018 None Full Exam - General 1994 Ears/Nose/Throat otoscopic exam Overall: external auditory canals clear 01/02/2018 None Full Exam - General 1994 Ears/Nose/Throat otoscopic exam Overall: tympanic membranes clear 01/02/2018 None Full Exam - General 1994 Ears/Nose/Throat lips/teeth/gingiva Overall: benign lips 01/02/2018 None Full Exam - General 1994 Ears/Nose/Throat lips/teeth/gingiva Overall: normal dentition 01/02/2018 None Full Exam - General 1994 Ears/Nose/Throat oral cavity/pharynx/larynx Overall: oral mucosa clear 01/02/2018 None Full Exam - General 1994 Ears/Nose/Throat oral cavity/pharynx/larynx Overall: oropharyngeal mucosa clear 01/02/2018 None Full Exam - General 1994 Ears/Nose/Throat oral cavity/pharynx/larynx Overall: hypopharynx benign 01/02/2018 None Full Exam - General 1994 Ears/Nose/Throat oral cavity/pharynx/larynx Overall: no masses 01/02/2018 None Full Exam - General 1994 Respiratory auscultation Overall: breath sounds clear bilaterally 01/02/2018 None Full Exam - General 1994 Respiratory respiratory effort/rhythm Overall: no retractions 01/02/2018 None Full Exam - General 1994 Respiratory respiratory effort/rhythm Overall: normal rate 01/02/2018 None Full Exam - General 1994 Cardiovascular extremities Overall: no clubbing 01/02/2018 None Full Exam - General 1994 Cardiovascular auscultation of heart Overall: regular rate 01/02/2018 None Full Exam - General 1994 Cardiovascular auscultation of heart Overall: normal heart sounds 01/02/2018 None Full Exam - General 1994 Abdomen abdominal exam Overall: no tenderness 01/02/2018 None Full Exam - General 1994 Lymphatic neck nodes Overall: anterior cervical chain benign 01/02/2018 None Full Exam - General 1994 Lymphatic neck nodes Overall: posterior cervical chain benign 01/02/2018 None Full Exam - General 1994 Musculoskeletal digits and nails DIPs: first 01/02/2018 None Full Exam - General 1994 Musculoskeletal digits and nails DIPs: second 01/02/2018 None Full Exam - General 1994 Musculoskeletal digits and nails DIPs: third 01/02/2018 None Full Exam - General 1994 Musculoskeletal digits and nails DIPs: fourth 01/02/2018 None Full Exam - General 1994 Musculoskeletal digits and nails DIPs: fifth 01/02/2018 None Full Exam - General 1994 Musculoskeletal digits and nails DIPs: tender 01/02/2018 None Full Exam - General 1994 Musculoskeletal digits and nails DIPs: swelling 01/02/2018 None Full Exam - General 1994 Musculoskeletal digits and nails PIPs: first 01/02/2018 None Full Exam - General 1994 Musculoskeletal digits and nails PIPs: second 01/02/2018 None Full Exam - General 1994 Musculoskeletal digits and nails PIPs: third 01/02/2018 None Full Exam - General 1994 Musculoskeletal digits and nails PIPs: fourth 01/02/2018 None Full Exam - General 1994 Musculoskeletal digits and nails PIPs: fifth 01/02/2018 None Full Exam - General 1994 Musculoskeletal digits and nails PIPs: swelling 01/02/2018 None Full Exam - General 1994 Musculoskeletal digits and nails PIPs: deformity 01/02/2018 None Full Exam - General 1994 Musculoskeletal digits and nails PIPs: bony enlargement 01/02/2018 None Full Exam - General 1994 Musculoskeletal digits and nails MCPs: first 01/02/2018 None Full Exam - General 1994 Musculoskeletal digits and nails MCPs: second 01/02/2018 None Full Exam - General 1994 Musculoskeletal digits and nails MCPs: third 01/02/2018 None Full Exam - General 1994 Musculoskeletal digits and nails MCPs: swelling 01/02/2018 None Full Exam - General 1994 Musculoskeletal digits and nails MCPs: nodule 01/02/2018 None Full Exam - General 1994 Musculoskeletal digits and nails MCPs: bony enlargement 01/02/2018 None Full Exam - General 1994 Musculoskeletal head and neck Overall: head atraumatic 01/02/2018 None Full Exam - General 1994 Musculoskeletal head and neck Overall: cervical spine benign 01/02/2018 None Full Exam - General 1994 Neurologic deep tendon reflexes Overall: deep tendon reflexes intact 01/02/2018 None Full Exam - General 1994 Neurologic cranial nerves Overall: crainial nerves 2 - 12 grossly intact 01/02/2018 None Full Exam - General 1994 Psychiatric orientation/consciousness Overall: oriented to person, place and time 01/02/2018 None Full Exam - General 1994 Psychiatric mood and affect Overall: normal mood and affect 01/02/2018 None Full Exam - General 1994 Constitutional general appearance Development: well developed 12/26/2017 None Full Exam - General 1994 Constitutional general appearance Development: appears stated age 1112/26/2017 None Full Exam - General 1994 Constitutional general appearance Hygiene/Attention to Grooming: good hygiene 12/26/2017 None Full Exam - General 1994 Eyes conjunctiva /eyelids Overall: conjunctiva clear 12/26/2017 None Full Exam - General 1994 Eyes conjunctiva /eyelids Overall: cornea clear 12/26/2017 None Full Exam - General 1994 Eyes conjunctiva /eyelids Overall: eyelids normal 12/26/2017 None Full Exam - General 1994 Eyes pupils and irises Overall: pupils equal, round, reactive to light and accomodation 12/26/2017 None Full Exam - General 1994 Ears/Nose/Throat otoscopic exam Overall: external auditory canals clear 12/26/2017 None Full Exam - General 1994 Ears/Nose/Throat otoscopic exam Overall: tympanic membranes clear 12/26/2017 None Full Exam - General 1994 Ears/Nose/Throat lips/teeth/gingiva Overall: benign lips 12/26/2017 None Full Exam - General 1994 Ears/Nose/Throat lips/teeth/gingiva Overall: normal dentition 12/26/2017 None Full Exam - General 1994 Ears/Nose/Throat oral cavity/pharynx/larynx Overall: oral mucosa clear 12/26/2017 None Full Exam - General 1994 Ears/Nose/Throat oral cavity/pharynx/larynx Overall: oropharyngeal mucosa clear 12/26/2017 None Full Exam - General 1994 Ears/Nose/Throat oral cavity/pharynx/larynx Overall: hypopharynx benign 12/26/2017 None Full Exam - General 1994 Ears/Nose/Throat oral cavity/pharynx/larynx Overall: no masses 12/26/2017 None Full Exam - General 1994 Respiratory auscultation Overall: breath sounds clear bilaterally 12/26/2017 None Full Exam - General 1994 Respiratory respiratory effort/rhythm Overall: no retractions 12/26/2017 None Full Exam - General 1994 Respiratory respiratory effort/rhythm Overall: normal rate 12/26/2017 None Full Exam - General 1994 Cardiovascular extremities Overall: no clubbing 12/26/2017 None Full Exam - General 1994 Cardiovascular auscultation of heart Overall: regular rate 12/26/2017 None Full Exam - General 1994 Cardiovascular auscultation of heart Overall: normal heart sounds 12/26/2017 None Full Exam - General 1994 Abdomen abdominal exam Overall: no tenderness 12/26/2017 None Full Exam - General 1994 Lymphatic neck nodes Overall: anterior cervical chain benign 12/26/2017 None Full Exam - General 1994 Lymphatic neck nodes Overall: posterior cervical chain benign 12/26/2017 None Full Exam - General 1994 Musculoskeletal digits and nails DIPs: first 12/26/2017 None Full Exam - General 1994 Musculoskeletal digits and nails DIPs: second 12/26/2017 None Full Exam - General 1994 Musculoskeletal digits and nails DIPs: third 12/26/2017 None Full Exam - General 1994 Musculoskeletal digits and nails DIPs: fourth 12/26/2017 None Full Exam - General 1994 Musculoskeletal digits and nails DIPs: fifth 12/26/2017 None Full Exam - General 1994 Musculoskeletal digits and nails DIPs: tender 12/26/2017 None Full Exam - General 1994 Musculoskeletal digits and nails DIPs: swelling 12/26/2017 None Full Exam - General 1994 Musculoskeletal digits and nails PIPs: first 12/26/2017 None Full Exam - General 1994 Musculoskeletal digits and nails PIPs: second 12/26/2017 None Full Exam - General 1994 Musculoskeletal digits and nails PIPs: third 12/26/2017 None Full Exam - General 1994 Musculoskeletal digits and nails PIPs: fourth 12/26/2017 None Full Exam - General 1994 Musculoskeletal digits and nails PIPs: fifth 12/26/2017 None Full Exam - General 1994 Musculoskeletal digits and nails PIPs: swelling 12/26/2017 None Full Exam - General 1994 Musculoskeletal digits and nails PIPs: deformity 12/26/2017 None Full Exam - General 1994 Musculoskeletal digits and nails PIPs: bony enlargement 12/26/2017 None Full Exam - General 1994 Musculoskeletal digits and nails MCPs: first 12/26/2017 None Full Exam - General 1994 Musculoskeletal digits and nails MCPs: second 12/26/2017 None Full Exam - General 1994 Musculoskeletal digits and nails MCPs: third 12/26/2017 None Full Exam - General 1994 Musculoskeletal digits and nails MCPs: swelling 12/26/2017 None Full Exam - General 1994 Musculoskeletal digits and nails MCPs: nodule 12/26/2017 None Full Exam - General 1994 Musculoskeletal digits and nails MCPs: bony enlargement 12/26/2017 None Full Exam - General 1994 Neurologic deep tendon reflexes Overall: deep tendon reflexes intact 12/26/2017 None Full Exam - General 1994 Neurologic cranial nerves Overall: crainial nerves 2 - 12 grossly intact 12/26/2017 None Full Exam - General 1994 Psychiatric orientation/consciousness Overall: oriented to person, place and time 12/26/2017 None Full Exam - General 1994 Psychiatric mood and affect Overall: normal mood and affect 12/26/2017 None Full Exam - General 1994 Musculoskeletal head and neck Overall: cervical spine benign 12/26/2017 None Full Exam - General 1994 Musculoskeletal head and neck Overall: head atraumatic 12/26/2017 None Full Exam - General 1994 Musculoskeletal spine, ribs and pelvis Posture: lordosis 12/26/2017 ttp over upper back - muscles on back and over thoracici spine Full Exam - General 1994 Constitutional general appearance Development: well developed 10/17/2017 None Full Exam - General 1994 Constitutional general appearance Development: appears stated age 0810/17/2017 None Full Exam - General 1994 Constitutional general appearance Hygiene/Attention to Grooming: good hygiene 10/17/2017 None Full Exam - General 1994 Eyes conjunctiva /eyelids Overall: conjunctiva clear 10/17/2017 None Full Exam - General 1994 Eyes conjunctiva /eyelids Overall: cornea clear 10/17/2017 None Full Exam - General 1994 Eyes conjunctiva /eyelids Overall: eyelids normal 10/17/2017 None Full Exam - General 1994 Eyes pupils and irises Overall: pupils equal, round, reactive to light and accomodation 10/17/2017 None Full Exam - General 1994 Ears/Nose/Throat otoscopic exam Overall: tympanic membranes clear 10/17/2017 None Full Exam - General 1994 Ears/Nose/Throat lips/teeth/gingiva Overall: benign lips 10/17/2017 None Full Exam - General 1994 Ears/Nose/Throat lips/teeth/gingiva Overall: normal dentition 10/17/2017 None Full Exam - General 1994 Ears/Nose/Throat oral cavity/pharynx/larynx Overall: oral mucosa clear 10/17/2017 None Full Exam - General 1994 Ears/Nose/Throat oral cavity/pharynx/larynx Overall: oropharyngeal mucosa clear 10/17/2017 None Full Exam - General 1994 Ears/Nose/Throat oral cavity/pharynx/larynx Overall: hypopharynx benign 10/17/2017 None Full Exam - General 1994 Ears/Nose/Throat oral cavity/pharynx/larynx Overall: no masses 10/17/2017 None Full Exam - General 1994 Respiratory auscultation Overall: breath sounds clear bilaterally 10/17/2017 None Full Exam - General 1994 Respiratory respiratory effort/rhythm Overall: no retractions 10/17/2017 None Full Exam - General 1994 Respiratory respiratory effort/rhythm Overall: normal rate 10/17/2017 None Full Exam - General 1994 Cardiovascular extremities Overall: no clubbing 10/17/2017 None Full Exam - General 1994 Cardiovascular auscultation of heart Overall: regular rate 10/17/2017 None Full Exam - General 1994 Cardiovascular auscultation of heart Overall: normal heart sounds 10/17/2017 None Full Exam - General 1994 Abdomen abdominal exam Overall: no tenderness 10/17/2017 None Full Exam - General 1994 Abdomen abdominal exam Bowel sounds: hyperactive 10/17/2017 None Full Exam - General 1994 Lymphatic neck nodes Overall: anterior cervical chain benign 10/17/2017 None Full Exam - General 1994 Lymphatic neck nodes Overall: posterior cervical chain benign 10/17/2017 None Full Exam - General 1994 Musculoskeletal digits and nails DIPs: first 10/17/2017 None Full Exam - General 1994 Integument inspection of skin Overall: few scattered moles, no gross abnormalities 10/17/2017 None Full Exam - General 1994 Neurologic deep tendon reflexes Overall: deep tendon reflexes intact 10/17/2017 None Full Exam - General 1994 Neurologic cranial nerves Overall: crainial nerves 2 - 12 grossly intact 10/17/2017 None Full Exam - General 1994 Psychiatric orientation/consciousness Overall: oriented to person, place and time 10/17/2017 None Full Exam - General 1994 Psychiatric mood and affect Overall: normal mood and affect 10/17/2017 None Full Exam - General 1994 Ears/Nose/Throat otoscopic exam External auditory canal: complete cerumen impaction 10/17/2017 None Full Exam - General 1994 Ears/Nose/Throat otoscopic exam Tympanic membrane: not visualized 10/17/2017 None Full Exam - General 1994 Constitutional general appearance Development: well developed 09/27/2017 None Full Exam - General 1994 Constitutional general appearance Development: appears stated age 0809/27/2017 None Full Exam - General 1994 Constitutional general appearance Hygiene/Attention to Grooming: good hygiene 09/27/2017 None Full Exam - General 1994 Eyes conjunctiva /eyelids Overall: conjunctiva clear 09/27/2017 None Full Exam - General 1994 Eyes conjunctiva /eyelids Overall: cornea clear 09/27/2017 None Full Exam - General 1994 Eyes conjunctiva /eyelids Overall: eyelids normal 09/27/2017 None Full Exam - General 1994 Eyes pupils and irises Overall: pupils equal, round, reactive to light and accomodation 09/27/2017 None Full Exam - General 1994 Ears/Nose/Throat otoscopic exam Overall: external auditory canals clear 09/27/2017 None Full Exam - General 1994 Ears/Nose/Throat otoscopic exam Overall: tympanic membranes clear 09/27/2017 None Full Exam - General 1994 Ears/Nose/Throat lips/teeth/gingiva Overall: benign lips 09/27/2017 None Full Exam - General 1994 Ears/Nose/Throat lips/teeth/gingiva Overall: normal dentition 09/27/2017 None Full Exam - General 1994 Ears/Nose/Throat oral cavity/pharynx/larynx Overall: oral mucosa clear 09/27/2017 None Full Exam - General 1994 Ears/Nose/Throat oral cavity/pharynx/larynx Overall: oropharyngeal mucosa clear 09/27/2017 None Full Exam - General 1994 Ears/Nose/Throat oral cavity/pharynx/larynx Overall: hypopharynx benign 09/27/2017 None Full Exam - General 1994 Ears/Nose/Throat oral cavity/pharynx/larynx Overall: no masses 09/27/2017 None Full Exam - General 1994 Respiratory auscultation Overall: breath sounds clear bilaterally 09/27/2017 None Full Exam - General 1994 Respiratory respiratory effort/rhythm Overall: no retractions 09/27/2017 None Full Exam - General 1994 Respiratory respiratory effort/rhythm Overall: normal rate 09/27/2017 None Full Exam - General 1994 Cardiovascular extremities Overall: no clubbing 09/27/2017 None Full Exam - General 1994 Cardiovascular auscultation of heart Overall: regular rate 09/27/2017 None Full Exam - General 1994 Cardiovascular auscultation of heart Overall: normal heart sounds 09/27/2017 None Full Exam - General 1994 Abdomen abdominal exam Overall: no tenderness 09/27/2017 None Full Exam - General 1994 Abdomen abdominal exam Bowel sounds: hyperactive 09/27/2017 None Full Exam - General 1994 Lymphatic neck nodes Overall: anterior cervical chain benign 09/27/2017 None Full Exam - General 1994 Lymphatic neck nodes Overall: posterior cervical chain benign 09/27/2017 None Full Exam - General 1994 Musculoskeletal digits and nails DIPs: first 09/27/2017 None Full Exam - General 1995 Musculoskeletal digits and nails DIPs: second 09/27/2017 None Full Exam - General 1994 Musculoskeletal digits and nails DIPs: third 09/27/2017 None Full Exam - General 1994 Musculoskeletal digits and nails DIPs: fourth 09/27/2017 None Full Exam - General 1994 Musculoskeletal digits and nails DIPs: fifth 09/27/2017 None Full Exam - General 1994 Musculoskeletal digits and nails DIPs: tender 09/27/2017 None Full Exam - General 1994 Musculoskeletal digits and nails DIPs: swelling 09/27/2017 None Full Exam - General 1994 Musculoskeletal digits and nails PIPs: first 09/27/2017 None Full Exam - General 1994 Musculoskeletal digits and nails PIPs: second 09/27/2017 None Full Exam - General 1994 Musculoskeletal digits and nails PIPs: third 09/27/2017 None Full Exam - General 1994 Musculoskeletal digits and nails PIPs: fourth 09/27/2017 None Full Exam - General 1994 Musculoskeletal digits and nails PIPs: fifth 09/27/2017 None Full Exam - General 1994 Musculoskeletal digits and nails PIPs: swelling 09/27/2017 None Full Exam - General 1994 Musculoskeletal digits and nails PIPs: deformity 09/27/2017 None Full Exam - General 1994 Musculoskeletal digits and nails PIPs: bony enlargement 09/27/2017 None Full Exam - General 1994 Musculoskeletal digits and nails MCPs: first 09/27/2017 None Full Exam - General 1994 Musculoskeletal digits and nails MCPs: second 09/27/2017 None Full Exam - General 1994 Musculoskeletal digits and nails MCPs: third 09/27/2017 None Full Exam - General 1994 Musculoskeletal digits and nails MCPs: swelling 09/27/2017 None Full Exam - General 1994 Musculoskeletal digits and nails MCPs: nodule 09/27/2017 None Full Exam - General 1994 Musculoskeletal digits and nails MCPs: bony enlargement 09/27/2017 None Full Exam - General 1994 Integument inspection of skin Overall: few scattered moles, no gross abnormalities 09/27/2017 None Full Exam - General 1994 Neurologic deep tendon reflexes Overall: deep tendon reflexes intact 09/27/2017 None Full Exam - General 1994 Neurologic cranial nerves Overall: crainial nerves 2 - 12 grossly intact 09/27/2017 None Full Exam - General 1994 Psychiatric orientation/consciousness Overall: oriented to person, place and time 09/27/2017 None Full Exam - General 1994 Psychiatric mood and affect Overall: normal mood and affect 09/27/2017 None Full Exam - General 1994 Constitutional general appearance Development: well developed 03/24/2017 None Full Exam - General 1994 Constitutional general appearance Development: appears stated age 0203/24/2017 None Full Exam - General 1994 Constitutional general appearance Hygiene/Attention to Grooming: good hygiene 03/24/2017 None Full Exam - General 1994 Eyes conjunctiva /eyelids Overall: conjunctiva clear 03/24/2017 None Full Exam - General 1994 Eyes conjunctiva /eyelids Overall: cornea clear 03/24/2017 None Full Exam - General 1994 Eyes conjunctiva /eyelids Overall: eyelids normal 03/24/2017 None Full Exam - General 1994 Eyes pupils and irises Overall: pupils equal, round, reactive to light and accomodation 03/24/2017 None Full Exam - General 1994 Ears/Nose/Throat otoscopic exam Overall: external auditory canals clear 03/24/2017 None Full Exam - General 1994 Ears/Nose/Throat otoscopic exam Overall: tympanic membranes clear 03/24/2017 None Full Exam - General 1994 Ears/Nose/Throat lips/teeth/gingiva Overall: benign lips 03/24/2017 None Full Exam - General 1994 Ears/Nose/Throat lips/teeth/gingiva Overall: normal dentition 03/24/2017 None Full Exam - General 1994 Ears/Nose/Throat oral cavity/pharynx/larynx Overall: oral mucosa clear 03/24/2017 None Full Exam - General 1994 Ears/Nose/Throat oral cavity/pharynx/larynx Overall: oropharyngeal mucosa clear 03/24/2017 None Full Exam - General 1994 Ears/Nose/Throat oral cavity/pharynx/larynx Overall: hypopharynx benign 03/24/2017 None Full Exam - General 1995 Ears/Nose/Throat oral cavity/pharynx/larynx Overall: no masses 03/24/2017 None Full Exam - General 1994 Respiratory auscultation Overall: breath sounds clear bilaterally 03/24/2017 None Full Exam - General 1994 Respiratory respiratory effort/rhythm Overall: no retractions 03/24/2017 None Full Exam - General 1994 Respiratory respiratory effort/rhythm Overall: normal rate 03/24/2017 None Full Exam - General 1994 Cardiovascular extremities Overall: no clubbing 03/24/2017 None Full Exam - General 1995 Cardiovascular auscultation of heart Overall: regular rate 03/24/2017 None Full Exam - General 1994 Cardiovascular auscultation of heart Overall: normal heart sounds 03/24/2017 None Full Exam - General 1994 Abdomen abdominal exam Overall: no tenderness 03/24/2017 None Full Exam - General 1994 Abdomen abdominal exam Bowel sounds: hyperactive 03/24/2017 None Full Exam - General 1994 Lymphatic neck nodes Overall: anterior cervical chain benign 03/24/2017 None Full Exam - General 1995 Lymphatic neck nodes Overall: posterior cervical chain benign 03/24/2017 None Full Exam - General 1994 Integument inspection of skin Overall: few scattered moles, no gross abnormalities 03/24/2017 None Full Exam - General 1994 Neurologic deep tendon reflexes Overall: deep tendon reflexes intact 03/24/2017 None Full Exam - General 1994 Neurologic cranial nerves Overall: crainial nerves 2 - 12 grossly intact 03/24/2017 None Full Exam - General 1994 Psychiatric orientation/consciousness Overall: oriented to person, place and time 03/24/2017 None Full Exam - General 1994 Psychiatric mood and affect Overall: normal mood and affect 03/24/2017 None Full Exam - General 1994 Musculoskeletal digits and nails DIPs: first 03/24/2017 None Full Exam - General 1994 Musculoskeletal digits and nails DIPs: second 03/24/2017 None Full Exam - General 1994 Musculoskeletal digits and nails DIPs: third 03/24/2017 None Full Exam - General 1994 Musculoskeletal digits and nails DIPs: fourth 03/24/2017 None Full Exam - General 1994 Musculoskeletal digits and nails DIPs: fifth 03/24/2017 None Full Exam - General 1994 Musculoskeletal digits and nails DIPs: tender 03/24/2017 None Full Exam - General 1994 Musculoskeletal digits and nails DIPs: swelling 03/24/2017 None Full Exam - General 1994 Musculoskeletal digits and nails PIPs: first 03/24/2017 None Full Exam - General 1994 Musculoskeletal digits and nails PIPs: second 03/24/2017 None Full Exam - General 1994 Musculoskeletal digits and nails PIPs: third 03/24/2017 None Full Exam - General 1994 Musculoskeletal digits and nails PIPs: fourth 03/24/2017 None Full Exam - General 1994 Musculoskeletal digits and nails PIPs: fifth 03/24/2017 None Full Exam - General 1994 Musculoskeletal digits and nails PIPs: swelling 03/24/2017 None Full Exam - General 1994 Musculoskeletal digits and nails PIPs: deformity 03/24/2017 None Full Exam - General 1994 Musculoskeletal digits and nails PIPs: bony enlargement 03/24/2017 None Full Exam - General 1994 Musculoskeletal digits and nails MCPs: first 03/24/2017 None Full Exam - General 1994 Musculoskeletal digits and nails MCPs: second 03/24/2017 None Full Exam - General 1994 Musculoskeletal digits and nails MCPs: third 03/24/2017 None Full Exam - General 1994 Musculoskeletal digits and nails MCPs: nodule 03/24/2017 None Full Exam - General 1994 Musculoskeletal digits and nails MCPs: swelling 03/24/2017 None Full Exam - General 1994 Musculoskeletal digits and nails MCPs: bony enlargement 03/24/2017 None Full Exam - General 1994 Constitutional general appearance Development: well developed 08/30/2016 None Full Exam - General 1994 Constitutional general appearance Development: appears stated age 0708/30/2016 None Full Exam - General 1994 Constitutional general appearance Hygiene/Attention to Grooming: good hygiene 08/30/2016 None Full Exam - General 1994 Eyes conjunctiva /eyelids Overall: conjunctiva clear 08/30/2016 None Full Exam - General 1994 Eyes conjunctiva /eyelids Overall: cornea clear 08/30/2016 None Full Exam - General 1994 Eyes conjunctiva /eyelids Overall: eyelids normal 08/30/2016 None Full Exam - General 1994 Eyes pupils and irises Overall: pupils equal, round, reactive to light and accomodation 08/30/2016 None Full Exam - General 1994 Ears/Nose/Throat otoscopic exam Overall: external auditory canals clear 08/30/2016 None Full Exam - General 1994 Ears/Nose/Throat otoscopic exam Overall: tympanic membranes clear 08/30/2016 None Full Exam - General 1994 Ears/Nose/Throat lips/teeth/gingiva Overall: benign lips 08/30/2016 None Full Exam - General 1994 Ears/Nose/Throat lips/teeth/gingiva Overall: normal dentition 08/30/2016 None Full Exam - General 1994 Ears/Nose/Throat oral cavity/pharynx/larynx Overall: oral mucosa clear 08/30/2016 None Full Exam - General 1994 Ears/Nose/Throat oral cavity/pharynx/larynx Overall: oropharyngeal mucosa clear 08/30/2016 None Full Exam - General 1994 Ears/Nose/Throat oral cavity/pharynx/larynx Overall: hypopharynx benign 08/30/2016 None Full Exam - General 1994 Ears/Nose/Throat oral cavity/pharynx/larynx Overall: no masses 08/30/2016 None Full Exam - General 1994 Respiratory auscultation Overall: breath sounds clear bilaterally 08/30/2016 None Full Exam - General 1994 Respiratory respiratory effort/rhythm Overall: no retractions 08/30/2016 None Full Exam - General 1994 Respiratory respiratory effort/rhythm Overall: normal rate 08/30/2016 None Full Exam - General 1994 Cardiovascular extremities Overall: no clubbing 08/30/2016 None Full Exam - General 1994 Cardiovascular auscultation of heart Overall: regular rate 08/30/2016 None Full Exam - General 1994 Cardiovascular auscultation of heart Overall: normal heart sounds 08/30/2016 None Full Exam - General 1994 Abdomen abdominal exam Overall: no tenderness 08/30/2016 None Full Exam - General 1994 Abdomen abdominal exam Bowel sounds: hyperactive 08/30/2016 None Full Exam - General 1994 Lymphatic neck nodes Overall: anterior cervical chain benign 08/30/2016 None Full Exam - General 1994 Lymphatic neck nodes Overall: posterior cervical chain benign 08/30/2016 None Full Exam - General 1994 Integument inspection of skin Overall: few scattered moles, no gross abnormalities 08/30/2016 None Full Exam - General 1994 Neurologic deep tendon reflexes Overall: deep tendon reflexes intact 08/30/2016 None Full Exam - General 1994 Neurologic cranial nerves Overall: crainial nerves 2 - 12 grossly intact 08/30/2016 None Full Exam - General 1994 Psychiatric orientation/consciousness Overall: oriented to person, place and time 08/30/2016 None Full Exam - General 1994 Psychiatric mood and affect Overall: normal mood and affect 08/30/2016 None Full Exam - General 1994 Constitutional general appearance Development: well developed 08/08/2016 None Full Exam - General 1994 Constitutional general appearance Development: appears stated age 0608/08/2016 None Full Exam - General 1994 Constitutional general appearance Hygiene/Attention to Grooming: good hygiene 08/08/2016 None Full Exam - General 1994 Eyes conjunctiva /eyelids Overall: conjunctiva clear 08/08/2016 None Full Exam - General 1994 Eyes conjunctiva /eyelids Overall: cornea clear 08/08/2016 None Full Exam - General 1994 Eyes conjunctiva /eyelids Overall: eyelids normal 08/08/2016 None Full Exam - General 1994 Eyes pupils and irises Overall: pupils equal, round, reactive to light and accomodation 08/08/2016 None Full Exam - General 1994 Ears/Nose/Throat otoscopic exam Overall: external auditory canals clear 08/08/2016 None Full Exam - General 1994 Ears/Nose/Throat otoscopic exam Overall: tympanic membranes clear 08/08/2016 None Full Exam - General 1994 Ears/Nose/Throat lips/teeth/gingiva Overall: benign lips 08/08/2016 None Full Exam - General 1994 Ears/Nose/Throat lips/teeth/gingiva Overall: normal dentition 08/08/2016 None Full Exam - General 1994 Ears/Nose/Throat oral cavity/pharynx/larynx Overall: oral mucosa clear 08/08/2016 None Full Exam - General 1994 Ears/Nose/Throat oral cavity/pharynx/larynx Overall: oropharyngeal mucosa clear 08/08/2016 None Full Exam - General 1994 Ears/Nose/Throat oral cavity/pharynx/larynx Overall: hypopharynx benign 08/08/2016 None Full Exam - General 1994 Ears/Nose/Throat oral cavity/pharynx/larynx Overall: no masses 08/08/2016 None Full Exam - General 1994 Respiratory auscultation Overall: breath sounds clear bilaterally 08/08/2016 None Full Exam - General 1994 Respiratory respiratory effort/rhythm Overall: no retractions 08/08/2016 None Full Exam - General 1994 Respiratory respiratory effort/rhythm Overall: normal rate 08/08/2016 None Full Exam - General 1994 Cardiovascular extremities Overall: no clubbing 08/08/2016 None Full Exam - General 1994 Cardiovascular auscultation of heart Overall: regular rate 08/08/2016 None Full Exam - General 1994 Cardiovascular auscultation of heart Overall: normal heart sounds 08/08/2016 None Full Exam - General 1994 Abdomen abdominal exam Overall: no tenderness 08/08/2016 None Full Exam - General 1994 Abdomen abdominal exam Overall: normal bowel sounds 08/08/2016 None Full Exam - General 1994 Integument inspection of skin Overall: few scattered moles, no gross abnormalities 08/08/2016 None Full Exam - General 1994 Neurologic deep tendon reflexes Overall: deep tendon reflexes intact 08/08/2016 None Full Exam - General 1994 Neurologic cranial nerves Overall: crainial nerves 2 - 12 grossly intact 08/08/2016 None Full Exam - General 1994 Psychiatric orientation/consciousness Overall: oriented to person, place and time 08/08/2016 None Full Exam - General 1995 Psychiatric mood and affect Overall: normal mood and affect 08/08/2016 None Full Exam - Genitourinary/Female Constitutional general appearance Overall: well nourished 06/27/2016 None Full Exam - Genitourinary/Female Constitutional general appearance Overall: well developed 06/27/2016 None Full Exam - Genitourinary/Female Constitutional general appearance Overall: in no acute distress 06/27/2016 None Full Exam - Genitourinary/Female Eyes conjunctiva/eyelids Overall: conjunctiva clear 06/27/2016 None Full Exam - Genitourinary/Female Eyes conjunctiva/eyelids Overall: eyelids normal 06/27/2016 None Full Exam - Genitourinary/Female Ears/Nose/Throat lips/teeth/gingiva Overall: benign lips 06/27/2016 None Full Exam - Genitourinary/Female Ears/Nose/Throat oral cavity/pharynx/larynx Overall: oral mucosa clear 06/27/2016 None Full Exam - Genitourinary/Female Respiratory respiratory effort/rhythm Overall: no retractions 06/27/2016 None Full Exam - Genitourinary/Female Respiratory respiratory effort/rhythm Overall: normal rate 06/27/2016 None Full Exam - Genitourinary/Female Chest/Breast breast inspection and palpation Overall: normal chest shape 06/27/2016 None Full Exam - Genitourinary/Female Musculoskeletal gait and station Gait: abnormal stance 06/27/2016 walking boot on Left foot Full Exam - Genitourinary/Female Psychiatric orientation/consciousness Overall: oriented to person, place and time 06/27/2016 None Full Exam - Genitourinary/Female Psychiatric appearance Overall: well-groomed, good eye contact 06/27/2016 None Full Exam - Orthopedics Constitutional general appearance Overall: well nourished 05/23/2016 None Full Exam - Orthopedics Constitutional general appearance Overall: well developed 05/23/2016 None Full Exam - Orthopedics Constitutional general appearance Overall: in no acute distress 05/23/2016 None Full Exam - Orthopedics Constitutional general appearance Overall: normal body habitus 05/23/2016 None Full Exam - Orthopedics Constitutional general appearance Overall: well groomed 05/23/2016 None Full Exam - Orthopedics Constitutional general appearance Overall: no assistive devices 05/23/2016 None Full Exam - Orthopedics Constitutional general appearance Overall: cooperative 05/23/2016 None Full Exam - Orthopedics Constitutional general appearance Overall: healthy appearance 05/23/2016 None Full Exam - Orthopedics Constitutional general appearance Overall: pleasant 05/23/2016 None Full Exam - Orthopedics Constitutional general appearance Overall: relaxed 05/23/2016 None Full Exam - Orthopedics Psychiatric orientation/consciousness Overall: oriented to person, place and time 05/23/2016 None Full Exam - Orthopedics MS: left lower extremity insp & palp - LLE Foot: swelling 05/23/2016 left 1st and 2nd toes to base of 1st metatarsel Full Exam - Orthopedics MS: left lower extremity range of motion - LLE Foot: decreased extension of toes 05/23/2016 None Full Exam - Orthopedics MS: left lower extremity range of motion - LLE Foot: decreased flexion of toes 05/23/2016 None Full Exam - Orthopedics MS: left lower extremity range of motion - LLE Foot: pain with extension of toes 05/23/2016 None Full Exam - Orthopedics MS: left lower extremity range of motion - LLE Foot: pain with flexion of toes 05/23/2016 None Full Exam - Orthopedics MS: left lower extremity range of motion - LLE Foot: unable to fan toes 05/23/2016 None Full Exam - Orthopedics MS: left lower extremity stability - LLE Overall: no subluxation, dislocation 05/23/2016 None Full Exam - Genitourinary/Female Constitutional general appearance Overall: well nourished 04/18/2016 None Full Exam - Genitourinary/Female Constitutional general appearance Overall: well developed 04/18/2016 None Full Exam - Genitourinary/Female Constitutional general appearance Overall: in no acute distress 04/18/2016 None Full Exam - Genitourinary/Female Eyes conjunctiva/eyelids Overall: conjunctiva clear 04/18/2016 None Full Exam - Genitourinary/Female Eyes conjunctiva/eyelids Overall: eyelids normal 04/18/2016 None Full Exam - Genitourinary/Female Ears/Nose/Throat lips/teeth/gingiva Overall: benign lips 04/18/2016 None Full Exam - Genitourinary/Female Ears/Nose/Throat oral cavity/pharynx/larynx Overall: oral mucosa clear 04/18/2016 None Full Exam - Genitourinary/Female Respiratory auscultation Overall: breath sounds clear bilaterally 04/18/2016 None Full Exam - Genitourinary/Female Respiratory respiratory effort/rhythm Overall: no retractions 04/18/2016 None Full Exam - Genitourinary/Female Respiratory respiratory effort/rhythm Overall: normal rate 04/18/2016 None Full Exam - Genitourinary/Female Cardiovascular auscultation of heart Overall: regular rate 04/18/2016 None Full Exam - Genitourinary/Female Cardiovascular auscultation of heart Overall: normal heart sounds 04/18/2016 None Full Exam - Genitourinary/Female Neurologic mood and affect Overall: normal mood 04/18/2016 None Full Exam - Genitourinary/Female Neurologic mood and affect Overall: normal affect 04/18/2016 None Full Exam - Genitourinary/Female Neurologic orientation Overall: oriented to person, place and time 04/18/2016 None Full Exam - Genitourinary/Female Psychiatric appearance Overall: well-groomed, good eye contact 04/18/2016 None Full Exam - Genitourinary/Female Psychiatric orientation/consciousness Overall: oriented to person, place and time 04/18/2016 None Full Exam - Genitourinary/Female Psychiatric speech Overall: normal quality, no aphasia 04/18/2016 None Full Exam - Genitourinary/Female Psychiatric speech Overall: normal quality, quantity, rate 04/18/2016 None Full Exam - Genitourinary/Female Constitutional general appearance Overall: well nourished 03/07/2016 None Full Exam - Genitourinary/Female Constitutional general appearance Overall: well developed 03/07/2016 None Full Exam - Genitourinary/Female Constitutional general appearance Overall: in no acute distress 03/07/2016 None Full Exam - Genitourinary/Female Eyes conjunctiva/eyelids Overall: conjunctiva clear 03/07/2016 None Full Exam - Genitourinary/Female Eyes conjunctiva/eyelids Overall: eyelids normal 03/07/2016 None Full Exam - Genitourinary/Female Ears/Nose/Throat lips/teeth/gingiva Overall: benign lips 03/07/2016 None Full Exam - Genitourinary/Female Ears/Nose/Throat oral cavity/pharynx/larynx Overall: oral mucosa clear 03/07/2016 None Full Exam - Genitourinary/Female Respiratory auscultation Overall: breath sounds clear bilaterally 03/07/2016 None Full Exam - Genitourinary/Female Respiratory respiratory effort/rhythm Overall: no retractions 03/07/2016 None Full Exam - Genitourinary/Female Respiratory respiratory effort/rhythm Overall: normal rate 03/07/2016 None Full Exam - Genitourinary/Female Cardiovascular auscultation of heart Overall: regular rate 03/07/2016 None Full Exam - Genitourinary/Female Cardiovascular auscultation of heart Overall: normal heart sounds 03/07/2016 None Full Exam - Genitourinary/Female Neurologic mood and affect Overall: normal affect 03/07/2016 None Full Exam - Genitourinary/Female Neurologic mood and affect Overall: normal mood 03/07/2016 None Full Exam - Genitourinary/Female Neurologic orientation Overall: oriented to person, place and time 03/07/2016 None Full Exam - Genitourinary/Female Psychiatric appearance Overall: well-groomed, good eye contact 03/07/2016 None Full Exam - General 1994 Constitutional general appearance Development: well developed 02/23/2016 None Full Exam - General 1994 Constitutional general appearance Development: appears stated age 0102/23/2016 None Full Exam - General 1994 Constitutional general appearance Hygiene/Attention to Grooming: good hygiene 02/23/2016 None Full Exam - General 1994 Eyes conjunctiva /eyelids Overall: conjunctiva clear 02/23/2016 None Full Exam - General 1994 Eyes conjunctiva /eyelids Overall: cornea clear 02/23/2016 None Full Exam - General 1994 Eyes conjunctiva /eyelids Overall: eyelids normal 02/23/2016 None Full Exam - General 1994 Eyes pupils and irises Overall: pupils equal, round, reactive to light and accomodation 02/23/2016 None Full Exam - General 1994 Ears/Nose/Throat otoscopic exam Overall: external auditory canals clear 02/23/2016 None Full Exam - General 1994 Ears/Nose/Throat otoscopic exam Overall: tympanic membranes clear 02/23/2016 None Full Exam - General 1994 Ears/Nose/Throat lips/teeth/gingiva Overall: benign lips 02/23/2016 None Full Exam - General 1994 Ears/Nose/Throat lips/teeth/gingiva Overall: normal dentition 02/23/2016 None Full Exam - General 1994 Ears/Nose/Throat oral cavity/pharynx/larynx Overall: oral mucosa clear 02/23/2016 None Full Exam - General 1994 Ears/Nose/Throat oral cavity/pharynx/larynx Overall: oropharyngeal mucosa clear 02/23/2016 None Full Exam - General 1994 Ears/Nose/Throat oral cavity/pharynx/larynx Overall: hypopharynx benign 02/23/2016 None Full Exam - General 1994 Ears/Nose/Throat oral cavity/pharynx/larynx Overall: no masses 02/23/2016 None Full Exam - General 1994 Respiratory auscultation Overall: breath sounds clear bilaterally 02/23/2016 None Full Exam - General 1994 Respiratory respiratory effort/rhythm Overall: no retractions 02/23/2016 None Full Exam - General 1994 Respiratory respiratory effort/rhythm Overall: normal rate 02/23/2016 None Full Exam - General 1994 Cardiovascular extremities Overall: no clubbing 02/23/2016 None Full Exam - General 1994 Cardiovascular auscultation of heart Overall: regular rate 02/23/2016 None Full Exam - General 1994 Cardiovascular auscultation of heart Overall: normal heart sounds 02/23/2016 None Full Exam - General 1994 Abdomen abdominal exam Overall: no tenderness 02/23/2016 None Full Exam - General 1994 Abdomen abdominal exam Bowel sounds: hyperactive 02/23/2016 None Full Exam - General 1994 Integument inspection of skin Overall: few scattered moles, no gross abnormalities 02/23/2016 None Full Exam - General 1994 Neurologic deep tendon reflexes Overall: deep tendon reflexes intact 02/23/2016 None Full Exam - General 1994 Neurologic cranial nerves Overall: crainial nerves 2 - 12 grossly intact 02/23/2016 None Full Exam - General 1994 Psychiatric orientation/consciousness Overall: oriented to person, place and time 02/23/2016 None Full Exam - General 1994 Psychiatric mood and affect Overall: normal mood and affect 02/23/2016 None Full Exam - General 1994 Lymphatic neck nodes Overall: anterior cervical chain benign 02/23/2016 None Full Exam - General 1994 Lymphatic neck nodes Overall: posterior cervical chain benign 02/23/2016 None Full Exam - General 1994 Constitutional general appearance Development: well developed 09/15/2015 None Full Exam - General 1994 Constitutional general appearance Development: appears stated age 0709/15/2015 None Full Exam - General 1994 Constitutional general appearance Hygiene/Attention to Grooming: good hygiene 09/15/2015 None Full Exam - General 1994 Eyes conjunctiva /eyelids Overall: conjunctiva clear 09/15/2015 None Full Exam - General 1994 Eyes conjunctiva /eyelids Overall: cornea clear 09/15/2015 None Full Exam - General 1994 Eyes conjunctiva /eyelids Overall: eyelids normal 09/15/2015 None Full Exam - General 1994 Eyes pupils and irises Overall: pupils equal, round, reactive to light and accomodation 09/15/2015 None Full Exam - General 1994 Ears/Nose/Throat otoscopic exam Overall: external auditory canals clear 09/15/2015 None Full Exam - General 1994 Ears/Nose/Throat otoscopic exam Overall: tympanic membranes clear 09/15/2015 None Full Exam - General 1994 Ears/Nose/Throat lips/teeth/gingiva Overall: benign lips 09/15/2015 None Full Exam - General 1994 Ears/Nose/Throat lips/teeth/gingiva Overall: normal dentition 09/15/2015 None Full Exam - General 1994 Ears/Nose/Throat oral cavity/pharynx/larynx Overall: oral mucosa clear 09/15/2015 None Full Exam - General 1994 Ears/Nose/Throat oral cavity/pharynx/larynx Overall: oropharyngeal mucosa clear 09/15/2015 None Full Exam - General 1994 Ears/Nose/Throat oral cavity/pharynx/larynx Overall: hypopharynx benign 09/15/2015 None Full Exam - General 1994 Ears/Nose/Throat oral cavity/pharynx/larynx Overall: no masses 09/15/2015 None Full Exam - General 1994 Respiratory auscultation Overall: breath sounds clear bilaterally 09/15/2015 None Full Exam - General 1994 Respiratory respiratory effort/rhythm Overall: no retractions 09/15/2015 None Full Exam - General 1994 Respiratory respiratory effort/rhythm Overall: normal rate 09/15/2015 None Full Exam - General 1994 Cardiovascular extremities Overall: no clubbing 09/15/2015 None Full Exam - General 1994 Cardiovascular auscultation of heart Overall: regular rate 09/15/2015 None Full Exam - General 1994 Cardiovascular auscultation of heart Overall: normal heart sounds 09/15/2015 None Full Exam - General 1994 Abdomen abdominal exam Overall: no tenderness 09/15/2015 None Full Exam - General 1994 Abdomen abdominal exam Bowel sounds: hyperactive 09/15/2015 None Full Exam - General 1994 Integument inspection of skin Overall: few scattered moles, no gross abnormalities 09/15/2015 None Full Exam - General 1994 Neurologic deep tendon reflexes Overall: deep tendon reflexes intact 09/15/2015 None Full Exam - General 1994 Neurologic cranial nerves Overall: crainial nerves 2 - 12 grossly intact 09/15/2015 None Full Exam - General 1994 Psychiatric orientation/consciousness Overall: oriented to person, place and time 09/15/2015 None Full Exam - General 1994 Psychiatric mood and affect Overall: normal mood and affect 09/15/2015 None Full Exam - General 1994 Constitutional general appearance Development: well developed 05/26/2015 None Full Exam - General 1994 Constitutional general appearance Development: appears stated age 0405/26/2015 None Full Exam - General 1994 Constitutional general appearance Hygiene/Attention to Grooming: good hygiene 05/26/2015 None Full Exam - General 1994 Eyes conjunctiva /eyelids Overall: conjunctiva clear 05/26/2015 None Full Exam - General 1994 Eyes conjunctiva /eyelids Overall: cornea clear 05/26/2015 None Full Exam - General 1994 Eyes conjunctiva /eyelids Overall: eyelids normal 05/26/2015 None Full Exam - General 1994 Eyes pupils and irises Overall: pupils equal, round, reactive to light and accomodation 05/26/2015 None Full Exam - General 1994 Ears/Nose/Throat lips/teeth/gingiva Overall: benign lips 05/26/2015 None Full Exam - General 1994 Ears/Nose/Throat lips/teeth/gingiva Overall: normal dentition 05/26/2015 None Full Exam - General 1994 Respiratory auscultation Overall: breath sounds clear bilaterally 05/26/2015 None Full Exam - General 1994 Respiratory respiratory effort/rhythm Overall: no retractions 05/26/2015 None Full Exam - General 1994 Respiratory respiratory effort/rhythm Overall: normal rate 05/26/2015 None Full Exam - General 1994 Cardiovascular auscultation of heart Overall: regular rate 05/26/2015 None Full Exam - General 1994 Cardiovascular auscultation of heart Overall: normal heart sounds 05/26/2015 None Full Exam - General 1994 Neurologic cranial nerves Overall: crainial nerves 2 - 12 grossly intact 05/26/2015 None Full Exam - General 1994 Psychiatric orientation/consciousness Overall: oriented to person, place and time 05/26/2015 None Full Exam - General 1994 Psychiatric mood and affect Overall: normal mood and affect 05/26/2015 None Full Exam - General 1994 Integument inspection of skin Location: right arm 05/26/2015 None Full Exam - General 1994 Integument inspection of skin Location: left arm 05/26/2015 None Full Exam - General 1994 Integument inspection of skin Location: right leg 05/26/2015 None Full Exam - General 1994 Integument inspection of skin Location: left leg 05/26/2015 None Full Exam - General 1994 Integument inspection of skin Location: chest 05/26/2015 None Full Exam - General 1994 Integument inspection of skin Rash/Lesions: macule 05/26/2015 erythematous macular rash Full Exam - General 1994 Psychiatric mood and affect Mood: happy 05/26/2015 None Full Exam - General 1994 Constitutional general appearance Development: well developed 04/09/2015 None Full Exam - General 1994 Constitutional general appearance Development: appears stated age 0204/09/2015 None Full Exam - General 1994 Constitutional general appearance Hygiene/Attention to Grooming: good hygiene 04/09/2015 None Full Exam - General 1994 Eyes conjunctiva /eyelids Overall: conjunctiva clear 04/09/2015 None Full Exam - General 1994 Eyes conjunctiva /eyelids Overall: cornea clear 04/09/2015 None Full Exam - General 1994 Eyes conjunctiva /eyelids Overall: eyelids normal 04/09/2015 None Full Exam - General 1994 Eyes pupils and irises Overall: pupils equal, round, reactive to light and accomodation 04/09/2015 None Full Exam - General 1994 Ears/Nose/Throat otoscopic exam Overall: external auditory canals clear 04/09/2015 None Full Exam - General 1994 Ears/Nose/Throat otoscopic exam Overall: tympanic membranes clear 04/09/2015 None Full Exam - General 1994 Ears/Nose/Throat lips/teeth/gingiva Overall: benign lips 04/09/2015 None Full Exam - General 1994 Ears/Nose/Throat lips/teeth/gingiva Overall: normal dentition 04/09/2015 None Full Exam - General 1994 Ears/Nose/Throat oral cavity/pharynx/larynx Overall: oral mucosa clear 04/09/2015 None Full Exam - General 1994 Ears/Nose/Throat oral cavity/pharynx/larynx Overall: oropharyngeal mucosa clear 04/09/2015 None Full Exam - General 1994 Ears/Nose/Throat oral cavity/pharynx/larynx Overall: hypopharynx benign 04/09/2015 None Full Exam - General 1994 Ears/Nose/Throat oral cavity/pharynx/larynx Overall: no masses 04/09/2015 None Full Exam - General 1994 Respiratory auscultation Overall: breath sounds clear bilaterally 04/09/2015 None Full Exam - General 1994 Respiratory respiratory effort/rhythm Overall: no retractions 04/09/2015 None Full Exam - General 1994 Respiratory respiratory effort/rhythm Overall: normal rate 04/09/2015 None Full Exam - General 1994 Cardiovascular extremities Overall: no clubbing 04/09/2015 None Full Exam - General 1994 Cardiovascular auscultation of heart Overall: regular rate 04/09/2015 None Full Exam - General 1994 Cardiovascular auscultation of heart Overall: normal heart sounds 04/09/2015 None Full Exam - General 1994 Abdomen abdominal exam Overall: no tenderness 04/09/2015 None Full Exam - General 1994 Abdomen abdominal exam Bowel sounds: hyperactive 04/09/2015 None Full Exam - General 1994 Musculoskeletal lower extremity Palpation - thigh: tenderness 04/09/2015 few lipomas Full Exam - General 1994 Musculoskeletal lower extremity Muscle Strength/Tone - ankle: ankle dorsiflexors 04/09/2015 weak Full Exam - General 1994 Musculoskeletal lower extremity Muscle Strength/Tone - ankle: ankle plantarflexors 04/09/2015 weak Full Exam - General 1994 Musculoskeletal lower extremity ROM - foot: decreased toe extension 04/09/2015 None Full Exam - General 1994 Integument inspection of skin Overall: few scattered moles, no gross abnormalities 04/09/2015 None Full Exam - General 1994 Neurologic deep tendon reflexes Overall: deep tendon reflexes intact 04/09/2015 None Full Exam - General 1994 Neurologic cranial nerves Overall: crainial nerves 2 - 12 grossly intact 04/09/2015 None Full Exam - General 1994 Psychiatric orientation/consciousness Overall: oriented to person, place and time 04/09/2015 None Full Exam - General 1994 Psychiatric mood and affect Overall: normal mood and affect 04/09/2015 None Full Exam - General 1994 Constitutional general appearance Development: well developed 03/30/2015 None Full Exam - General 1994 Constitutional general appearance Development: appears stated age 0203/30/2015 None Full Exam - General 1994 Constitutional general appearance Hygiene/Attention to Grooming: good hygiene 03/30/2015 None Full Exam - General 1994 Eyes conjunctiva /eyelids Overall: conjunctiva clear 03/30/2015 None Full Exam - General 1994 Eyes conjunctiva /eyelids Overall: cornea clear 03/30/2015 None Full Exam - General 1994 Eyes conjunctiva /eyelids Overall: eyelids normal 03/30/2015 None Full Exam - General 1994 Eyes pupils and irises Overall: pupils equal, round, reactive to light and accomodation 03/30/2015 None Full Exam - General 1994 Ears/Nose/Throat otoscopic exam Overall: external auditory canals clear 03/30/2015 None Full Exam - General 1994 Ears/Nose/Throat otoscopic exam Overall: tympanic membranes clear 03/30/2015 None Full Exam - General 1994 Ears/Nose/Throat lips/teeth/gingiva Overall: benign lips 03/30/2015 None Full Exam - General 1994 Ears/Nose/Throat lips/teeth/gingiva Overall: normal dentition 03/30/2015 None Full Exam - General 1994 Ears/Nose/Throat oral cavity/pharynx/larynx Overall: oral mucosa clear 03/30/2015 None Full Exam - General 1994 Ears/Nose/Throat oral cavity/pharynx/larynx Overall: oropharyngeal mucosa clear 03/30/2015 None Full Exam - General 1994 Ears/Nose/Throat oral cavity/pharynx/larynx Overall: hypopharynx benign 03/30/2015 None Full Exam - General 1994 Ears/Nose/Throat oral cavity/pharynx/larynx Overall: no masses 03/30/2015 None Full Exam - General 1994 Respiratory auscultation Overall: breath sounds clear bilaterally 03/30/2015 None Full Exam - General 1994 Respiratory respiratory effort/rhythm Overall: no retractions 03/30/2015 None Full Exam - General 1994 Respiratory respiratory effort/rhythm Overall: normal rate 03/30/2015 None Full Exam - General 1994 Cardiovascular extremities Overall: no clubbing 03/30/2015 None Full Exam - General 1994 Cardiovascular auscultation of heart Overall: regular rate 03/30/2015 None Full Exam - General 1994 Cardiovascular auscultation of heart Overall: normal heart sounds 03/30/2015 None Full Exam - General 1994 Abdomen abdominal exam Overall: no tenderness 03/30/2015 None Full Exam - General 1994 Musculoskeletal lower extremity Muscle Strength/Tone - ankle: ankle dorsiflexors 03/30/2015 weak Full Exam - General 1994 Musculoskeletal lower extremity Muscle Strength/Tone - ankle: ankle plantarflexors 03/30/2015 weak Full Exam - General 1994 Integument inspection of skin Overall: few scattered moles, no gross abnormalities 03/30/2015 None Full Exam - General 1994 Neurologic deep tendon reflexes Overall: deep tendon reflexes intact 03/30/2015 None Full Exam - General 1994 Neurologic cranial nerves Overall: crainial nerves 2 - 12 grossly intact 03/30/2015 None Full Exam - General 1994 Psychiatric orientation/consciousness Overall: oriented to person, place and time 03/30/2015 None Full Exam - General 1994 Psychiatric mood and affect Overall: normal mood and affect 03/30/2015 None Full Exam - General 1994 Abdomen abdominal exam Overall: normal bowel sounds 03/30/2015 None Full Exam - General 1994 Musculoskeletal lower extremity ROM - foot: decreased toe extension 03/30/2015 None Full Exam - General 1994 Constitutional general appearance Development: well developed 03/10/2015 None Full Exam - General 1994 Constitutional general appearance Development: appears stated age 0103/10/2015 None Full Exam - General 1994 Constitutional general appearance Hygiene/Attention to Grooming: good hygiene 03/10/2015 None Full Exam - General 1994 Eyes conjunctiva /eyelids Overall: conjunctiva clear 03/10/2015 None Full Exam - General 1994 Eyes conjunctiva /eyelids Overall: cornea clear 03/10/2015 None Full Exam - General 1994 Eyes conjunctiva /eyelids Overall: eyelids normal 03/10/2015 None Full Exam - General 1994 Eyes pupils and irises Overall: pupils equal, round, reactive to light and accomodation 03/10/2015 None Full Exam - General 1994 Ears/Nose/Throat otoscopic exam Overall: external auditory canals clear 03/10/2015 None Full Exam - General 1994 Ears/Nose/Throat otoscopic exam Overall: tympanic membranes clear 03/10/2015 None Full Exam - General 1994 Ears/Nose/Throat lips/teeth/gingiva Overall: benign lips 03/10/2015 None Full Exam - General 1994 Ears/Nose/Throat lips/teeth/gingiva Overall: normal dentition 03/10/2015 None Full Exam - General 1994 Ears/Nose/Throat oral cavity/pharynx/larynx Overall: oral mucosa clear 03/10/2015 None Full Exam - General 1994 Ears/Nose/Throat oral cavity/pharynx/larynx Overall: oropharyngeal mucosa clear 03/10/2015 None Full Exam - General 1994 Ears/Nose/Throat oral cavity/pharynx/larynx Overall: hypopharynx benign 03/10/2015 None Full Exam - General 1994 Ears/Nose/Throat oral cavity/pharynx/larynx Overall: no masses 03/10/2015 None Full Exam - General 1994 Respiratory auscultation Overall: breath sounds clear bilaterally 03/10/2015 None Full Exam - General 1994 Respiratory respiratory effort/rhythm Overall: no retractions 03/10/2015 None Full Exam - General 1994 Respiratory respiratory effort/rhythm Overall: normal rate 03/10/2015 None Full Exam - General 1994 Cardiovascular extremities Overall: no clubbing 03/10/2015 None Full Exam - General 1994 Cardiovascular auscultation of heart Overall: regular rate 03/10/2015 None Full Exam - General 1994 Cardiovascular auscultation of heart Overall: normal heart sounds 03/10/2015 None Full Exam - General 1994 Abdomen abdominal exam Overall: no tenderness 03/10/2015 None Full Exam - General 1994 Abdomen abdominal exam Bowel sounds: hyperactive 03/10/2015 None Full Exam - General 1994 Integument inspection of skin Overall: few scattered moles, no gross abnormalities 03/10/2015 None Full Exam - General 1994 Neurologic deep tendon reflexes Overall: deep tendon reflexes intact 03/10/2015 None Full Exam - General 1994 Neurologic cranial nerves Overall: crainial nerves 2 - 12 grossly intact 03/10/2015 None Full Exam - General 1994 Psychiatric orientation/consciousness Overall: oriented to person, place and time 03/10/2015 None Full Exam - General 1994 Psychiatric mood and affect Overall: normal mood and affect 03/10/2015 None Full Exam - General 1994 Musculoskeletal lower extremity Palpation - thigh: tenderness 03/10/2015 few lipomas Full Exam - General 1994 Musculoskeletal lower extremity ROM - foot: decreased toe extension 03/10/2015 None Full Exam - General 1994 Musculoskeletal lower extremity Muscle Strength/Tone - ankle: ankle dorsiflexors 03/10/2015 weak Full Exam - General 1994 Musculoskeletal lower extremity Muscle Strength/Tone - ankle: ankle plantarflexors 03/10/2015 weak Full Exam - Orthopedics Constitutional general appearance Overall: well nourished 12/16/2014 None Full Exam - Orthopedics Constitutional general appearance Overall: well developed 12/16/2014 None Full Exam - Orthopedics Constitutional general appearance Overall: in no acute distress 12/16/2014 None Full Exam - Orthopedics Constitutional general appearance Overall: normal body habitus 12/16/2014 None Full Exam - Orthopedics Constitutional general appearance Overall: no deformities 12/16/2014 None Full Exam - Orthopedics Constitutional general appearance Overall: well groomed 12/16/2014 None Full Exam - Orthopedics Constitutional general appearance Overall: no assistive devices 12/16/2014 None Full Exam - Orthopedics Constitutional general appearance Overall: atraumatic 12/16/2014 None Full Exam - Orthopedics Psychiatric orientation/consciousness Overall: oriented to person, place and time 12/16/2014 None Full Exam - Orthopedics MS: left lower extremity insp & palp - LLE Overall: normal appearance of leg 12/16/2014 None Full Exam - Orthopedics MS: left lower extremity insp & palp - LLE Overall: no crepitus or defects 12/16/2014 None Full Exam - Orthopedics MS: left lower extremity insp & palp - LLE Thigh: tenderness 12/16/2014 over iliotibial band Full Exam - Orthopedics MS: left lower extremity insp & palp - LLE Knee: normal appearance 12/16/2014 None Full Exam - Orthopedics MS: left lower extremity insp & palp - LLE Lower leg: normal appearance 12/16/2014 None Full Exam - Orthopedics MS: left lower extremity insp & palp - LLE Lower leg: normal on palpation 12/16/2014 None Full Exam - Orthopedics MS: left lower extremity range of motion - LLE Overall: full range of motion in knee 12/16/2014 None Full Exam - Orthopedics MS: left lower extremity range of motion - LLE Overall: full range of motion in ankle 12/16/2014 None Full Exam - Orthopedics MS: left lower extremity range of motion - LLE Overall: full range of motion in toes 12/16/2014 None Full Exam - Orthopedics MS: left lower extremity stability - LLE Overall: knee, ankle and foot stable 12/16/2014 None Full Exam - Orthopedics Neurological deep tendon reflex/nerve stretch Overall: deep tendon reflexes intact 12/16/2014 None Full Exam - Orthopedics MS: spine/rib/pelvis insp & palp - S/R/P Lumbar spine inspection: normal lumbar spine alignment 12/16/2014 None Full Exam - Orthopedics MS: spine/rib/pelvis insp & palp - S/R/P Lumbar spine palpation: normal spinous processes 12/16/2014 None Full Exam - Orthopedics MS: spine/rib/pelvis insp & palp - S/R/P Sacroiliac palpation: left sacroiliac joint tenderness 12/16/2014 None Full Exam - Orthopedics MS: spine/rib/pelvis insp & palp - S/R/P Hip palpation: left trochanter tenderness 12/16/2014 None Full Exam - Orthopedics MS: spine/rib/pelvis stability - S/R/P Overall: no dislocation, subluxation, or laxity 12/16/2014 None Full Exam - Orthopedics MS: spine/rib/pelvis strength & tone - S/R/P Overall: full strength in hips 12/16/2014 None Full Exam - Orthopedics Musculoskeletal gait and station Conventional walking: painful gait 12/16/2014 None Full Exam - General 1994 Constitutional general appearance Development: well developed 12/09/2014 None Full Exam - General 1994 Constitutional general appearance Development: appears stated age 1012/09/2014 None Full Exam - General 1994 Constitutional general appearance Hygiene/Attention to Grooming: good hygiene 12/09/2014 None Full Exam - General 1994 Respiratory auscultation Overall: breath sounds clear bilaterally 12/09/2014 None Full Exam - General 1994 Respiratory respiratory effort/rhythm Overall: no retractions 12/09/2014 None Full Exam - General 1994 Respiratory respiratory effort/rhythm Overall: normal rate 12/09/2014 None Full Exam - General 1994 Cardiovascular extremities Overall: no clubbing 12/09/2014 None Full Exam - General 1994 Cardiovascular auscultation of heart Overall: regular rate 12/09/2014 None Full Exam - General 1994 Cardiovascular auscultation of heart Overall: normal heart sounds 12/09/2014 None Full Exam - General 1994 Psychiatric orientation/consciousness Overall: oriented to person, place and time 12/09/2014 None Full Exam - General 1994 Psychiatric mood and affect Overall: normal mood and affect 12/09/2014 None Full Exam - General 1994 Integument inspection of skin Overall: no rash, lesions 12/09/2014 None Full Exam - General 1994 Musculoskeletal spine, ribs and pelvis Sacroiliac joints: tender left sacroiliac joint 12/09/2014 None Full Exam - General 1994 Musculoskeletal spine, ribs and pelvis Overall: spine benign 12/09/2014 None Full Exam - General 1994 Musculoskeletal spine, ribs and pelvis Overall: left hip benign 12/09/2014 None Full Exam - General 1994 Musculoskeletal spine, ribs and pelvis Overall: right hip benign 12/09/2014 None Full Exam - General 1994 Constitutional general appearance Development: well developed 11/13/2014 None Full Exam - General 1994 Constitutional general appearance Development: appears stated age 0911/13/2014 None Full Exam - General 1994 Constitutional general appearance Hygiene/Attention to Grooming: good hygiene 11/13/2014 None Full Exam - General 1994 Eyes conjunctiva /eyelids Overall: conjunctiva clear 11/13/2014 None Full Exam - General 1994 Eyes conjunctiva /eyelids Overall: cornea clear 11/13/2014 None Full Exam - General 1994 Eyes conjunctiva /eyelids Overall: eyelids normal 11/13/2014 None Full Exam - General 1994 Eyes pupils and irises Overall: pupils equal, round, reactive to light and accomodation 11/13/2014 None Full Exam - General 1994 Ears/Nose/Throat otoscopic exam Overall: external auditory canals clear 11/13/2014 None Full Exam - General 1994 Ears/Nose/Throat otoscopic exam Overall: tympanic membranes clear 11/13/2014 None Full Exam - General 1994 Ears/Nose/Throat lips/teeth/gingiva Overall: benign lips 11/13/2014 None Full Exam - General 1994 Ears/Nose/Throat lips/teeth/gingiva Overall: normal dentition 11/13/2014 None Full Exam - General 1994 Ears/Nose/Throat oral cavity/pharynx/larynx Overall: oral mucosa clear 11/13/2014 None Full Exam - General 1994 Ears/Nose/Throat oral cavity/pharynx/larynx Overall: oropharyngeal mucosa clear 11/13/2014 None Full Exam - General 1994 Ears/Nose/Throat oral cavity/pharynx/larynx Overall: hypopharynx benign 11/13/2014 None Full Exam - General 1994 Ears/Nose/Throat oral cavity/pharynx/larynx Overall: no masses 11/13/2014 None Full Exam - General 1994 Respiratory auscultation Overall: breath sounds clear bilaterally 11/13/2014 None Full Exam - General 1994 Respiratory respiratory effort/rhythm Overall: no retractions 11/13/2014 None Full Exam - General 1994 Respiratory respiratory effort/rhythm Overall: normal rate 11/13/2014 None Full Exam - General 1994 Cardiovascular extremities Overall: no clubbing 11/13/2014 None Full Exam - General 1994 Cardiovascular auscultation of heart Overall: regular rate 11/13/2014 None Full Exam - General 1994 Cardiovascular auscultation of heart Overall: normal heart sounds 11/13/2014 None Full Exam - General 1994 Abdomen abdominal exam Overall: no tenderness 11/13/2014 None Full Exam - General 1994 Abdomen abdominal exam Bowel sounds: hyperactive 11/13/2014 None Full Exam - General 1994 Integument inspection of skin Overall: few scattered moles, no gross abnormalities 11/13/2014 None Full Exam - General 1994 Neurologic deep tendon reflexes Overall: deep tendon reflexes intact 11/13/2014 None Full Exam - General 1994 Neurologic cranial nerves Overall: crainial nerves 2 - 12 grossly intact 11/13/2014 None Full Exam - General 1994 Psychiatric orientation/consciousness Overall: oriented to person, place and time 11/13/2014 None Full Exam - General 1994 Psychiatric mood and affect Overall: normal mood and affect 11/13/2014 None Full Exam - General 1994 Musculoskeletal upper extremity Palpation - wrist: positive Phalen's test 11/13/2014 None Full Exam - General 1994 Constitutional general appearance Development: appears stated age 0507/10/2014 None Full Exam - General 1994 Constitutional general appearance Development: well developed 07/10/2014 None Full Exam - General 1994 Constitutional general appearance Hygiene/Attention to Grooming: good hygiene 07/10/2014 None Full Exam - General 1994 Eyes conjunctiva /eyelids Overall: conjunctiva clear 07/10/2014 None Full Exam - General 1994 Eyes conjunctiva /eyelids Overall: cornea clear 07/10/2014 None Full Exam - General 1994 Eyes conjunctiva /eyelids Overall: eyelids normal 07/10/2014 None Full Exam - General 1994 Eyes pupils and irises Overall: pupils equal, round, reactive to light and accomodation 07/10/2014 None Full Exam - General 1994 Ears/Nose/Throat otoscopic exam Overall: external auditory canals clear 07/10/2014 None Full Exam - General 1994 Ears/Nose/Throat otoscopic exam Overall: tympanic membranes clear 07/10/2014 None Full Exam - General 1994 Ears/Nose/Throat lips/teeth/gingiva Overall: benign lips 07/10/2014 None Full Exam - General 1994 Ears/Nose/Throat lips/teeth/gingiva Overall: normal dentition 07/10/2014 None Full Exam - General 1994 Ears/Nose/Throat oral cavity/pharynx/larynx Overall: hypopharynx benign 07/10/2014 None Full Exam - General 1994 Ears/Nose/Throat oral cavity/pharynx/larynx Overall: no masses 07/10/2014 None Full Exam - General 1994 Ears/Nose/Throat oral cavity/pharynx/larynx Overall: oral mucosa clear 07/10/2014 None Full Exam - General 1994 Ears/Nose/Throat oral cavity/pharynx/larynx Overall: oropharyngeal mucosa clear 07/10/2014 None Full Exam - General 1994 Respiratory auscultation Overall: breath sounds clear bilaterally 07/10/2014 None Full Exam - General 1994 Respiratory respiratory effort/rhythm Overall: no retractions 07/10/2014 None Full Exam - General 1994 Respiratory respiratory effort/rhythm Overall: normal rate 07/10/2014 None Full Exam - General 1994 Cardiovascular extremities Overall: no clubbing 07/10/2014 None Full Exam - General 1994 Cardiovascular auscultation of heart Overall: normal heart sounds 07/10/2014 None Full Exam - General 1994 Cardiovascular auscultation of heart Overall: regular rate 07/10/2014 None Full Exam - General 1994 Abdomen abdominal exam Overall: no tenderness 07/10/2014 None Full Exam - General 1994 Integument inspection of skin Overall: few scattered moles, no gross abnormalities 07/10/2014 None Full Exam - General 1994 Neurologic deep tendon reflexes Overall: deep tendon reflexes intact 07/10/2014 None Full Exam - General 1994 Neurologic cranial nerves Overall: crainial nerves 2 - 12 grossly intact 07/10/2014 None Full Exam - General 1994 Psychiatric orientation/consciousness Overall: oriented to person, place and time 07/10/2014 None Full Exam - General 1994 Psychiatric mood and affect Overall: normal mood and affect 07/10/2014 None Full Exam - General 1994 Abdomen abdominal exam Bowel sounds: hyperactive 07/10/2014 None Procedures Procedure Codes Date PPPS, SUBSEQ VISIT CPT -4: G0439 01/02/2018 TRIAMCINOLONE ACET INJ NOS CPT-4: J3301 08/08/2016 PRESCRIP TRANSMIT VIA ERX SY CPT-4: G8553 08/08/2016 PRESCRIP TRANSMIT VIA ERX SY CPT-4: G8553 04/18/2016 TRIAMCINOLONE ACET INJ NOS CPT-4: J3301 05/26/2015 PRESCRIP TRANSMIT VIA ERX SY CPT-4: G8553 05/26/2015 PRESCRIP TRANSMIT VIA ERX SY CPT-4: G8553 04/09/2015 INITIAL PREVENTIVE EXAM CPT-4: G0402 03/30/2015 TRIAMCINOLONE ACET INJ NOS CPT-4: J3301 12/09/2014 PRESCRIP TRANSMIT VIA ERX SY CPT-4: G8553 12/09/2014 PRESCRIP TRANSMIT VIA ERX SY CPT-4: G8553 11/13/2014 Vital Signs Date Vital 01/02/2018 Blood Pressure 1: 136/68 Code : 8480-6 BMI: 32.4 Code : 55913-5 Heart Rate 1 : 80 bpm Height: 5'4" SpO2: 99% Waist Measure (cm): 104 cm Weight: 189 lbs 12/26/2017 Blood Pressure 1: 138/72 Code : 8480-6 BMI: 31.4 Code : 64795-3 Heart Rate 1 : 72 bpm Height: 5'4" SpO2: 96% Weight: 183 lbs 10/17/2017 Blood Pressure 1: 15672 Code : 8480-6 BMI: 31.4 Code : 43916-5 Heart Rate 1 : 81 bpm Height: 5'4" SpO2: 98% Temperature: 36.5 (C) / 97.7 (F) Weight: 183 lbs 09/27/2017 Blood Pressure 1: 140/82 Code : 8480-6 BMI: 32.1 Code : 97390-3 Heart Rate 1 : 82 bpm Height: 5'4" SpO2: 98% Weight: 187 lbs 07/31/2017 Blood Pressure 1: 138/82 Code : 8480-6 Heart Rate 1: 87 bpm SpO2: 99% 03/24/2017 Blood Pressure 1: 146/86 Code : 8480-6 BMI: 31.8 Code : 74193-2 Heart Rate 1 : 79 bpm Height: 5'4" SpO2: 96% Temperature: 36.4 (C) / 97.5 (F) Weight: 185 lbs 08/30/2016 Blood Pressure 1: 142/88 Code : 8480-6 BMI: 31.6 Code : 39687-0 Heart Rate 1 : 80 bpm Height: 5'4" SpO2: 93% Weight: 184 lbs 08/08/2016 Blood Pressure 1: 142/76 Code : 8480-6 BMI: 29.9 Code : 10308-8 Heart Rate 1 : 80 bpm Height: 5'4" SpO2: 94% Weight: 174 lbs 06/27/2016 Blood Pressure 1: 15672 Code : 8480-6 BMI: 30.6 Code : 22871-0 Heart Rate 1 : 78 bpm Height: 5'4" SpO2: 95% Weight: 178 lbs 05/23/2016 Blood Pressure 1: 146/84 Code : 8480-6 Heart Rate 1: 66 bpm Height: 5'4" SpO2: 94% 04/18/2016 Blood Pressure 1: 148/84 Code : 8480-6 BMI: 30.2 Code : 68028-6 Heart Rate 1 : 81 bpm Height: 5'4" SpO2: 97% Weight: 176 lbs 03/07/2016 Blood Pressure 1: 130/78 Code : 8480-6 BMI: 30.0 Code : 20244-1 Heart Rate 1 : 85 bpm Height: 5'4" SpO2: 96% Weight: 175 lbs 02/23/2016 Blood Pressure 1: 140/78 Code : 8480-6 BMI: 29.7 Code : 67610-6 Heart Rate 1 : 74 bpm Height: 5'4" SpO2: 95% Weight: 173 lbs 09/15/2015 Blood Pressure 1: 140/88 Code : 8480-6 BMI: 29.4 Code : 80163-4 Heart Rate 1 : 81 bpm Height: 5'4" SpO2: 97% Weight: 171 lbs 8 oz 05/26/2015 Blood Pressure 1: 150/80 Code : 8480-6 BMI: 31.6 Code : 22199-1 Heart Rate 1 : 70 bpm Height: 5'4" SpO2: 96% Weight: 184 lbs 04/09/2015 Blood Pressure 1: 136/74 Code : 8480-6 BMI: 31.4 Code : 56652-5 Heart Rate 1 : 91 bpm Height: 5'4" SpO2: 94% Weight: 183 lbs 03/30/2015 Blood Pressure 1: 130/72 Code : 8480-6 BMI: 30.9 Code : 81557-2 Heart Rate 1 : 80 bpm Height: 5'4" SpO2: 97% Waist Measure (cm): 102 cm Weight: 180 lbs 03/10/2015 Blood Pressure 1: 152/80 Code : 8480-6 BMI: 31.1 Code : 09466-2 Heart Rate 1 : 66 bpm Height: 5'4" SpO2: 98% Weight: 181 lbs 12/16/2014 Blood Pressure 1: 132/88 Code : 8480-6 Blood Pressure 1: 132/88 Code: 8480-6 Heart Rate 1: 88 bpm SpO2: 98% Weight: 183 lbs 12/09/2014 Blood Pressure 1: 140/82 Code : 8480-6 BMI: 31.2 Code : 86662-6 Heart Rate 1 : 105 bpm Height: 5'4" SpO2: 93% Weight: 182 lbs 11/13/2014 Blood Pressure 1: 148/88 Code : 8480-6 BMI: 31.8 Code : 82113-4 Heart Rate 1 : 54 bpm Height: 5'4" SpO2: 98% Weight: 185 lbs 07/10/2014 Blood Pressure 1: 144/96 Code : 8480-6 BMI: 31.4 Code : 77706-9 Heart Rate 1 : 99 bpm Height: 5'4" SpO2: 98% Temperature: 36.8 (C) / 98.2 (F) Weight: 183 lbs Functional Status No Functional Status data History of Present Illness Symptom Name Status Result Effective Date Notes Annual Medicare Wellness Exam Alcohol Use drinks 0-1 days per week 01/02/2018 None Annual Medicare Wellness Exam Alcohol Use drinks 1 drinks per day 01/02/2018 None Annual Medicare Wellness Exam Alcohol Use more than 5 drinks on one occasion no 01/02/2018 None Annual Medicare Wellness Exam Aspirin Use no 01/02/2018 None Annual Medicare Wellness Exam Blood Glucose (self reported) borderline high (100-125) 01/02/2018 None Annual Medicare Wellness Exam Blood Pressure (self reported ) diagnosed with hypertension 01/02/2018 None Annual Medicare Wellness Exam Cholesterol (self reported) diagnosed with elevated cholesterol 2017 None Annual Medicare Wellness Exam Hemaglobin A-1C (self reported ) never checked 01/02/2018 None Annual Medicare Wellness Exam Describe Your Health fair 01/02/2018 None Annual Medicare Wellness Exam Hours of Sleep 8-9 01/02/2018 None Annual Medicare Wellness Exam Interaction with Friends no 01/02/2018 None Annual Medicare Wellness Exam Exercise Habits does not exercise 01/02/2018 None Annual Medicare Wellness Exam Life Satisfaction satisfied 01/02/2018 None Annual Medicare Wellness Exam Motor Vehicle Safety always fastens seat belt: yes 01/02/2018 None Annual Medicare Wellness Exam Motor Vehicle Safety drives after drinking: no 01/02/2018 None Annual Medicare Wellness Exam Motor Vehicle Safety rides with someone who has been drinking: no 01/02 None Annual Medicare Wellness Exam Smoking and Tobacco Use non smoker 01/02/2018 None Annual Medicare Wellness Exam Sun Exposure protects skin when outdoors: no 01/02/2018 None Annual Medicare Wellness Exam Depression (last 6 months) almost never 01/02/2018 None Annual Medicare Wellness Exam Depression or Hopelessness almost never 01/02/2018 None Annual Medicare Wellness Exam Interests & Pleasure almost never 01/02/2018 None Annual Medicare Wellness Exam Handling Stress usually rima effectively 01/02/2018 None Annual Medicare Wellness Exam Stress almost never 01/02/2018 None Annual Medicare Wellness Exam Social & Emotional Support usually 01/02/2018 None Annual Medicare Wellness Exam Nutrition servings of fried food / high fat foods per day: 0-1 2017 None Annual Medicare Wellness Exam Nutrition servings of high fiber / whole grain per day: 1 01/02/2018 None Annual Medicare Wellness Exam Nutrition servings of vegetables / fruit per day: 2-3 01/02/2018 None knee pain Location on the right 12/26/2017 None knee pain Quality giving way 12/26/2017 None knee pain Quality constant 12/26/2017 None knee pain Quality dull pain 12/26/2017 None knee pain Onset of Symptom _ years ago 12/26/2017 None knee pain Pertinent Findings decreased range of motion 12/26/2017 None knee pain Pertinent Findings instability 12/26/2017 None knee pain Pertinent Findings sensation of buckling 12/26/2017 some days uses a cane. earache Location left ear 10/17/2017 None earache Quality acute 10/17/2017 None earache Quality throbbing 10/17/2017 None earache Onset and Resolution sudden in onset 10/17/2017 None earache Onset of Symptom 2 weeks ago 10/17/2017 None earache Triggers no known triggers 10/17/2017 None hypertension Onset and Resolution ongoing 09/27/2017 None hypertension Onset of Symptom during adulthood 09/27/2017 None hypertension Blood Pressure Values not checking blood pressure at home 09/27/2017 None hypertension Alleviating Factors medication 09/27/2017 None hypertension Pertinent Findings Denies dizziness 09/27/2017 None hypertension Pertinent Findings dyspnea 09/27/2017 "always" hypertension Pertinent Findings edema 09/27/2017 (swollen joints due to RA) hypothyroid Onset and Resolution ongoing 09/27/2017 None hypothyroid Alleviating Factors medication 09/27/2017 None hypertension Quality chronic 09/27/2017 None hypertension Quality primary hypertension 09/27/2017 None hypothyroid Quality chronic 09/27/2017 None rheumatoid arthritis Quality chronic 09/27/2017 None rheumatoid arthritis Pertinent Findings swelling 09/27/2017 None rheumatoid arthritis Prognostic Factors female 09/27/2017 None rheumatoid arthritis Significant Medical Conditions high blood pressure 09/27/2017 None rheumatoid arthritis Significant Medical Conditions thyroid disease 09/27/2017 None rheumatoid arthritis Onset and Resolution ongoing 09/27/2017 None pleurisy Onset of Symptom 2-3 months ago 03/24/2017 None pleurisy Pertinent Findings Denies cough 03/24/2017 None pleurisy Pertinent Findings Denies dyspnea on exertion 03/24/2017 None hypertension Onset and Resolution ongoing 03/24/2017 None hypertension Onset of Symptom during adulthood 03/24/2017 None hypertension Blood Pressure Values not checking blood pressure at home 03/24/2017 None hypertension Alleviating Factors medication 03/24/2017 None hypertension Pertinent Findings Denies dizziness 03/24/2017 None hypertension Pertinent Findings Denies dyspnea 03/24/2017 None hypertension Pertinent Findings edema 03/24/2017 (swollen joints due to RA) hypothyroid Onset and Resolution ongoing 03/24/2017 None hypothyroid Alleviating Factors medication 03/24/2017 None pleurisy Pertinent Findings Denies edema 03/24/2017 None hypertension Pertinent Findings Denies decreased energy 03/24/2017 None hypertension Pertinent Findings Denies anxiety 03/24/2017 None pleurisy Onset of Symptom 2-3 months ago 08/30/2016 None pleurisy Pertinent Findings Denies cough 08/30/2016 None pleurisy Pertinent Findings Denies dyspnea on exertion 08/30/2016 None pleurisy Alleviating Factors anti- inflammatory medications 08/08/2016 None pleurisy Alleviating Factors medication 08/08/2016 hydrocodone pleurisy Exacerbating Factors deep breathing 08/08/2016 None pleurisy Pertinent Findings back pain 08/08/2016 None pleurisy Pertinent Findings dyspnea on exertion 08/08/2016 None pleurisy Pertinent Findings Denies lightheadedness 08/08/2016 None pleurisy Frequency of Episodes unchanged 08/08/2016 None pleurisy Limitation on Activities does not limit activities 08/08/2016 None pleurisy Location on the left side of on the chest 08/08/2016 None pleurisy Onset and Resolution ongoing 08/08/2016 None pleurisy Onset of Symptom _ days ago 08/08/2016 None pleurisy Quality acute 08/08/2016 None pleurisy Radiating the back 08/08/2016 None pleurisy Triggers no known associated factors 08/08/2016 None urinary urgency Quality constant 06/27/2016 None urinary urgency Onset and Resolution sudden in onset 06/27/2016 None urinary urgency Onset of Symptom 2 weeks ago 06/27/2016 None urinary urgency Frequency of Episodes daily 06/27/2016 None urinary frequency Quality constant 06/27/2016 None urinary frequency Onset and Resolution sudden in onset 06/27/2016 None urinary frequency Onset of Symptom 2 weeks ago 06/27/2016 None urinary frequency Frequency of Episodes daily 06/27/2016 None urinary frequency Pertinent Findings urinary urgency 06/27/2016 None vaginal discharge Quality white 06/27/2016 None vaginal discharge Onset and Resolution sudden in onset 06/27/2016 None vaginal discharge Onset of Symptom 2 weeks ago 06/27/2016 None vaginal discharge Pertinent Findings urinary urgency 06/27/2016 None foot pain Location on the left 05/23/2016 None foot pain Location at the MP joint of the great toe 05/23/2016 None foot pain Quality throbbing 05/23/2016 None foot pain Quality acute 05/23/2016 None foot pain Quality constant 05/23/2016 None foot pain Quality worsening 05/23/2016 None foot pain Onset and Resolution sudden in onset 05/23/2016 None foot pain Onset of Symptom 2 days ago 05/23/2016 None foot pain Severity severe 05/23/2016 None foot pain Significant Medications narcotics 05/23/2016 hydrocodone foot pain Mechanism of injury falling down the stairs 05/23/2016 None foot pain Alleviating Factors narcotics 05/23/2016 None foot pain Exacerbating Factors dorsiflexion of the foot 05/23/2016 None foot pain Exacerbating Factors plantar flexion of the foot 05/23/2016 None foot pain Exacerbating Factors walking 05/23/2016 None foot pain Initial treatment narcotics 05/23/2016 None foot pain Pertinent Findings bruising 05/23/2016 None foot pain Pertinent Findings decreased range of motion 05/23/2016 None foot pain Pertinent Findings limping 05/23/2016 None foot pain Pertinent Findings Denies numbness 05/23/2016 None foot pain Pertinent Findings pain with movement 05/23/2016 None foot pain Pertinent Findings redness 05/23/2016 None foot pain Pertinent Findings stiffness 05/23/2016 None foot pain Pertinent Findings swelling 05/23/2016 None foot pain Pertinent Findings warmth 05/23/2016 None vaginal discharge Quality clear 04/18/2016 None vaginal discharge Onset and Resolution ongoing 04/18/2016 None vaginal discharge Pertinent Findings Denies vaginal pruritus 04/18/2016 improved pelvic pain Quality acute 03/07/2016 None pelvic pain Quality dull 03/07/2016 None pelvic pain Onset and Resolution ongoing 03/07/2016 None pelvic pain Onset of Symptom 10 days ago 03/07/2016 None pelvic pain Frequency of Episodes increasing 03/07/2016 None pelvic pain Pertinent Findings Denies fever 03/07/2016 None pelvic pain Pertinent Findings Denies chills 03/07/2016 None pelvic pain Pertinent Findings Denies bladder pain 03/07/2016 None pelvic pain Pertinent Findings Denies nausea 03/07/2016 None pelvic pain Pertinent Findings Denies irregular menses 03/07/2016 None pelvic pain Pertinent Findings Denies unprotected sexual intercourse 03/07/2016 None hip pain Location on the left 02/23/2016 (worse) hip pain Location on the right 02/23/2016 None hip pain Quality chronic 02/23/2016 None hip pain Quality constant 02/23/2016 None hip pain Onset and Resolution ongoing 02/23/2016 None hip pain Limitation on Activities allows ambulation 02/23/2016 None hip pain Severity moderate 02/23/2016 None hip pain Significant Medications corticosteroids 02/23/2016 None hip pain Alleviating Factors NSAID's 02/23/2016 None hypertension Onset and Resolution ongoing 02/23/2016 None hypertension Onset of Symptom during adulthood 02/23/2016 None hypertension Alleviating Factors medication 02/23/2016 None hypertension Pertinent Findings Denies dizziness 02/23/2016 None hypertension Pertinent Findings Denies dyspnea 02/23/2016 None hypertension Pertinent Findings edema 02/23/2016 (swollen joints due to RA) hypothyroid Onset and Resolution ongoing 02/23/2016 None hypothyroid Alleviating Factors medication 02/23/2016 None hypertension Blood Pressure Values not checking blood pressure at home 02/23/2016 None diarrhea Quality intermittent 02/23/2016 None diarrhea Onset and Resolution ongoing 02/23/2016 None diarrhea Triggers meals 02/23/2016 None hip pain Location on the left 09/15/2015 (worse) hip pain Quality chronic 09/15/2015 None hip pain Onset and Resolution ongoing 09/15/2015 None hip pain Limitation on Activities allows ambulation 09/15/2015 None hip pain Severity moderate 09/15/2015 None hip pain Significant Medications corticosteroids 09/15/2015 None hip pain Alleviating Factors NSAID's 09/15/2015 None hip pain Location on the right 09/15/2015 None hip pain Quality constant 09/15/2015 None hypertension Onset and Resolution ongoing 09/15/2015 None hypertension Onset of Symptom during adulthood 09/15/2015 None hypertension Blood Pressure Values pt checking blood pressure - see scanned document 09/15/2015 None hypertension Alleviating Factors medication 09/15/2015 None hypertension Pertinent Findings edema 09/15/2015 -not normally- this past Monday after she had been out in the heat hypertension Pertinent Findings Denies dyspnea 09/15/2015 None hypertension Pertinent Findings Denies dizziness 09/15/2015 None hypothyroid Onset and Resolution ongoing 09/15/2015 None hypothyroid Alleviating Factors medication 09/15/2015 None rash Location-Extremities on both arms 05/26/2015 None rash Location-Extremities on both legs 05/26/2015 None rash Quality new 05/25 None rash Color red 2015 None rash Onset and Resolution sudden in onset 05/26/2015 None rash Onset of Symptom 3 days ago 05/26/2015 None sciatica Location on the left 04/09/2015 None sciatica Quality improving 04/09/2015 None sciatica Onset and Resolution ongoing 04/09/2015 None sciatica Onset of Symptom 3 months ago 04/09/2015 None sciatica Limitation on Activities moderately limits activities 04/09/2015 None sciatica Frequency of Episodes decreasing 04/09/2015 None sciatica Triggers activity 04/09/2015 None sciatica Alleviating Factors medication 04/09/2015 300 mg gabapentin TID and hydrocodone; Received an epidural injection on sciatica Pertinent Findings Denies fever 04/09/2015 None sciatica Pertinent Findings Denies weakness 04/09/2015 None hip pain Location on the left 04/09/2015 None hip pain Quality chronic 04/09/2015 None hip pain Onset and Resolution ongoing 04/09/2015 None hip pain Limitation on Activities allows ambulation 04/09/2015 None hip pain Severity moderate 04/09/2015 None hip pain Significant Medications corticosteroids 04/09/2015 None hip pain Alleviating Factors NSAID's 04/09/2015 None Annual Medicare Wellness Exam Alcohol Use does not drink any alcohol 03/30/2015 None Annual Medicare Wellness Exam Aspirin Use no 03/30/2015 None Annual Medicare Wellness Exam Blood Glucose (self reported) don't know 03/30/2015 None Annual Medicare Wellness Exam Blood Pressure (self reported ) borderline (120/80 - 139/89) 03/30/2015 None Annual Medicare Wellness Exam Cholesterol (self reported) borderline high (200-239) 03/30/2015 None Annual Medicare Wellness Exam Depression (last 6 months) almost never 03/30/2015 None Annual Medicare Wellness Exam Depression or Hopelessness almost never 03/30/2015 None Annual Medicare Wellness Exam Describe Your Health fair 03/30/2015 None Annual Medicare Wellness Exam Exercise Habits exercises 3 days per week 03/30/2015 None Annual Medicare Wellness Exam Exercise Habits exercises 30 minutes per day 03/30/2015 None Annual Medicare Wellness Exam Handling Stress usually rima effectively 03/30/2015 None Annual Medicare Wellness Exam Hemaglobin A-1C (self reported ) desireable (6 or lower) 03/30/2015 None Annual Medicare Wellness Exam Hours of Sleep 8 03/30/2015 None Annual Medicare Wellness Exam Interaction with Friends yes 03/30/2015 None Annual Medicare Wellness Exam Interests & Pleasure almost all of the time 03/30/2015 None Annual Medicare Wellness Exam Life Satisfaction very satisfied 03/30/2015 None Annual Medicare Wellness Exam Motor Vehicle Safety always fastens seat belt: y 03/30/2015 None Annual Medicare Wellness Exam Motor Vehicle Safety drives after drinking: n 03/30/2015 None Annual Medicare Wellness Exam Motor Vehicle Safety rides with someone who has been drinking: n 2015 None Annual Medicare Wellness Exam Nutrition servings of fried food / high fat foods per day: 0 2015 None Annual Medicare Wellness Exam Nutrition servings of high fiber / whole grain per day: 2 03/30/2015 None Annual Medicare Wellness Exam Nutrition servings of vegetables / fruit per day: 4 03/30/2015 None Annual Medicare Wellness Exam Social & Emotional Support always 03/30/2015 None Annual Medicare Wellness Exam Stress some of the time 03/30/2015 None Annual Medicare Wellness Exam Sun Exposure protects skin when outdoors: n 03/30/2015 None Annual Medicare Wellness Exam Smoking and Tobacco Use non smoker 03/30/2015 None sciatica Location on the left 03/10/2015 None sciatica Quality improving 03/10/2015 None sciatica Onset and Resolution ongoing 03/10/2015 None sciatica Limitation on Activities moderately limits activities 03/10/2015 None sciatica Frequency of Episodes decreasing 03/10/2015 None sciatica Triggers activity 03/10/2015 None sciatica Pertinent Findings Denies fever 03/10/2015 None sciatica Pertinent Findings Denies weakness 03/10/2015 None hip pain Location on the left 03/10/2015 None hip pain Onset and Resolution ongoing 03/10/2015 None hip pain Limitation on Activities allows ambulation 03/10/2015 None hip pain Severity moderate 03/10/2015 None hip pain Significant Medications corticosteroids 03/10/2015 None hip pain Alleviating Factors NSAID's 03/10/2015 None sciatica Onset of Symptom 3 months ago 03/10/2015 None sciatica Alleviating Factors medication 03/10/2015 300 mg gabapentin TID and hydrocodone; Received an epidural injection on hip pain Quality chronic 03/10/2015 None sciatica Location on the left 12/16/2014 None sciatica Quality improving 12/16/2014 None sciatica Onset and Resolution ongoing 12/16/2014 None sciatica Onset of Symptom 2 weeks ago 12/16/2014 None sciatica Limitation on Activities moderately limits activities 12/16/2014 None sciatica Frequency of Episodes decreasing 12/16/2014 None sciatica Triggers activity 12/16/2014 None sciatica Pertinent Findings Denies fever 12/16/2014 None sciatica Pertinent Findings Denies weakness 12/16/2014 None hip pain Location on the left 12/16/2014 None hip pain Quality sharp pain 12/16/2014 None hip pain Quality tenderness 12/16/2014 None hip pain Quality acute 12/16/2014 None hip pain Onset and Resolution ongoing 12/16/2014 None hip pain Onset of Symptom 2 weeks ago 12/16/2014 None hip pain Frequency of Episodes increasing 12/16/2014 None hip pain Limitation on Activities allows ambulation 12/16/2014 None hip pain Severity moderate 12/16/2014 None hip pain Significant Medications corticosteroids 12/16/2014 None hip pain Mechanism of injury unknown 12/16/2014 None hip pain Sports Participation not significant 12/16/2014 None hip pain Alleviating Factors NSAID's 12/16/2014 None sciatica Location on the left 12/09/2014 None sciatica Quality constant 12/09/2014 None sciatica Quality stabbing 12/09/2014 None sciatica Quality worsening 12/09/2014 None sciatica Onset of Symptom 1 weeks ago 12/09/2014 None sciatica Pertinent Findings low back pain 12/09/2014 None sciatica Pertinent Findings weakness 12/09/2014 None sciatica Limitation on Activities moderately limits activities 12/09/2014 None sciatica Frequency of Episodes increasing 12/09/2014 None sciatica Triggers no known associated factors 12/09/2014 None sciatica Alleviating Factors rest 12/09/2014 None sciatica Exacerbating Factors activity 12/09/2014 None blood pressure followup Quality chronic 11/13/2014 None blood pressure followup Onset and Resolution ongoing 11/13/2014 None blood pressure followup Onset of Symptom during adulthood 11/13/2014 None blood pressure followup Blood Pressure Values not checking blood pressure at home 11/13/2014 None blood pressure followup Pertinent Findings dizziness 11/13/2014 None depression Alleviating Factors medication 11/13/2014 None depression Quality chronic 11/13/2014 None depression Onset and Resolution ongoing 11/13/2014 None depression Onset of Symptom during adulthood 11/13/2014 None cough Quality dry None cough Onset of Symptom 3 days ago 07/10/2014 None cough Pertinent Findings Denies chest discomfort 07/10/2014 None cough Pertinent Findings dyspnea 07/10/2014 None cough Pertinent Findings Denies fever 07/10/2014 None cough Pertinent Findings post nasal drip 07/10/2014 None cough Pertinent Findings Denies sputum production 07/10/2014 None cough Pertinent Findings Denies vomiting 07/10/2014 None chest congestion Onset of Symptom 3 days ago 07/10/2014 None chest congestion Pertinent Findings cough 07/10/2014 None chest congestion Pertinent Findings Denies fever 07/10/2014 None chest congestion Pertinent Findings decreased energy 07/10/2014 None chest congestion Pertinent Findings dyspnea 07/10/2014 None chest congestion Pertinent Findings Denies sputum production 07/10/2014 None diarrhea Onset of Symptom 3 days ago 07/10/2014 None diarrhea Frequency of Episodes >8 stools per day 07/10/2014 reports that since yesterday she has been having diarrhea every hour diarrhea Pertinent Findings Denies cramping 07/10/2014 None diarrhea Pertinent Findings Denies fever 07/10/2014 None diarrhea Pertinent Findings nausea 07/10/2014 None diarrhea Pertinent Findings Denies bloating 07/10/2014 None nausea Quality intermittent 07/10/2014 None nausea Onset of Symptom 3 days ago 07/10/2014 None nausea Pertinent Findings cough 07/10/2014 None nausea Pertinent Findings dyspnea 07/10/2014 None nausea Pertinent Findings Denies fever 07/10/2014 None cough Triggers no known associated factors 07/10/2014 None blood pressure followup Alleviating Factors diet changes 07/10/2014 None blood pressure followup Alleviating Factors exercise 07/10/2014 None blood pressure followup Alleviating Factors medication 07/10/2014 None blood pressure followup Blood Pressure Values not checking blood pressure at home 07/10/2014 None blood pressure followup Blood Pressure Values pt checking blood pressure - see scanned document 07/10 None blood pressure followup Blood Pressure Values Stage 0:SBP 130-139 mmHg / DBP 85-89 mmHg 07/10/2014 None blood pressure followup Frequency of Episodes unchanged 07/10/2014 None blood pressure followup Onset and Resolution ongoing 07/10/2014 None blood pressure followup Onset of Symptom during adulthood 07/10/2014 None blood pressure followup Quality chronic 07/10/2014 None Advance Directives No Advance Directive data Encounters Encounter Performer Location Codes Date [id number]) [id number] EST. 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 PATIENT, LEVEL III Diagnosis: Otalgia, left ear[ICD10: H92.02] Diagnosis: Essential (primary) hypertension[ICD10: I10] Elizabet Falk MD, [facility] CPT-4: 39920 10/17/2017 ([id number]) [id number] EST. PATIENT, LEVEL IV Diagnosis: 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[ICD10: M05.741] Diagnosis: 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[ICD10: M05.742] Diagnosis: Atrophy of thyroid (acquired)[ICD10: E03.4] Diagnosis: Essential (primary) hypertension[ICD10: I10] Shannon Falk MD, [facility] CPT-4: 49365 09/27/2017 ([id number]) Miscellaneous no charge Diagnosis: Essential (primary) hypertension[ICD10: I10] Elizabet Falk MD, [facility] CPT-4: 05607 07/31/2017 ([id number]) 13878 EST. PATIENT, LEVEL IV Diagnosis: Essential (primary) hypertension[ICD10: I10] Diagnosis: Atrophy of thyroid (acquired)[ICD10: E03.4] Diagnosis: 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[ICD10: M05.741] Diagnosis: 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[ICD10: M05.742] Shannon Falk MD, [facility] CPT-4: 46005 03/24/2017 ([id number]) 30609 EST. PATIENT, LEVEL IV Diagnosis: Atrophy of thyroid (acquired)[ICD10: E03.4] Diagnosis: Pleurisy[ICD10: R09.1] Diagnosis: Essential (primary) hypertension[ICD10: I10] Shannon Falk MD, [facility] CPT-4: 74087 08/30/2016 ([id number]) 85295 EST. PATIENT, LEVEL III Diagnosis: Pleurisy[ICD10: R09.1] Elizabet Falk MD, [facility] CPT-4: 17302 08/08/2016 [id number] EST. PATIENT, LEVEL III Diagnosis: Dysuria[ICD10: R30.0] Diagnosis: Other pruritus[ICD10: L29.8] Shila Falk MD, [facility] CPT-4 : 18045 06/27/2016 ([id number]) 92543 EST. PATIENT, LEVEL III Diagnosis: Pain in left foot[ICD10: M79.672] Diagnosis: Pain in left toe(s)[ICD10: M79.675] Elizabet Falk MD, [facility] CPT-4: 83759 05/23/2016 25091 EST. PATIENT, LEVEL III Diagnosis: Candidiasis of vulva and vagina[ICD10: B37.3] Diagnosis: Dysuria[ICD10: R30.0] Shila Falk MD, [facility] CPT-4: 64996 04/18/2016 71287 EST. PATIENT, LEVEL III Diagnosis: Other pruritus[ICD10: L29.8] Diagnosis: Candidiasis of vulva and vagina[ICD10: B37.3] Shila Falk MD, [facility] CPT-4: 23894 03/07/2016 ([id number]) 10522 EST. PATIENT, LEVEL IV Diagnosis: Essential (primary) hypertension[ICD10: I10] Diagnosis: Pain in left hip[ICD10: M25.552] Diagnosis: Pain in right hip[ICD10: M25.551] Diagnosis: Functional diarrhea[ICD10: K59.1] Diagnosis: Atrophy of thyroid (acquired)[ICD10: E03.4] Shannon Falk MD, [facility] CPT-4: 76083 02/23/2016 ([id number]) 06572 EST. PATIENT, LEVEL IV Diagnosis: Essential (primary) hypertension[ICD10: I10] Diagnosis: Mixed hyperlipidemia[ICD10: E78.2] Diagnosis: Major depressive disorder, single episode, unspecified[ICD10: F32.9] Shannon Falk MD, [facility] CPT-4: 18119 09/15/2015 73286 EST. PATIENT, LEVEL III Diagnosis: Rash and other nonspecific skin eruption[ICD10: R21] Shila Falk MD, [facility] CPT-4: 33103 05/26/2015 ([id number]) 98190 EST. PATIENT, LEVEL IV Diagnosis: Essential (primary) hypertension[ICD10: I10] Diagnosis: Foot drop, left foot[ICD10: M21.372] Diagnosis: Sacroiliitis, not elsewhere classified[ICD10: M46.1] Shannon Falk MD, [facility] CPT-4: 04208 04/09/2015 ([id number]) 81649 EST. PATIENT, LEVEL IV Diagnosis: Sciatica, left side[ICD10: M54.32] Diagnosis: Foot drop, left foot[ICD10: M21.372] Diagnosis: Other intervertebral disc degeneration, lumbar region[ICD10: M51.36] Diagnosis: Family history of malignant neoplasm of digestive organs[ICD10: Z80.0 ] Shannon Falk MD, [facility] CPT-4: 28740 03/10/2015 ([id number]) 66709 EST. PATIENT, LEVEL III Diagnosis: Trochanteric bursitis, left hip[ICD10: M70.62] Diagnosis: Iliotibial band syndrome, left leg[ICD10: M76.32] Diagnosis: Sciatica, left side[ICD10: M54.32] Elizabet Falk MD, [facility] CPT-4: 95661 12/16/2014 ([id number]) 72871 EST. PATIENT, LEVEL III Diagnosis: Sciatica, left side[ICD10: M54.32] Diagnosis: Sacroiliitis, not elsewhere classified[ICD10: M46.1] Elizabet Falk MD, [facility] CPT-4: 73501 12/09/2014 ([id number]) 18158 EST. 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] Diagnosis: Carpal tunnel syndrome, unspecified upper limb[ICD10: G56.00] Shannon Falk MD, [facility] CPT-4: 14970 11/13/2014 ([id number]) OFFICE VISIT, NEW - LEVEL 4 Diagnosis: ESSENTIAL HYPERTENSION[ICD9: 401.9] Diagnosis: HYPERLIPIDEMIA[ICD9: 272.4] Diagnosis: DEPRESSIVE DISORDER NEC[ICD9: 311] Diagnosis: Diarrhea[ICD9: 787.91] Shannon Falk MD, [facility] CPT-4: 25659 07/10/2014 Plan of Care Planned Activity Notes Codes Status Date Patient Education: Patient Medication Summary Completed 02/01/2018 Appointment: Shannon Falk WPtel: [address] [place], [place] [id number] (15 min) Moderate 01/22/2018 Patient Education: Patient Medication Summary Completed 01/05/2018 Visit Plan: Medicare Exam - today we discussed the patients past history, immunizations, preventative exams/evaluations - colonoscopy, fecal occult blood testing, routine labs for renal function, glucose, cholesterol, osteoporosis evaluations, cardiovascular testing and cancer screenings. We have also discussed mental health and the signs/symptoms of depression. The patient was advised of home safety evaluations and the need to make sure that as the aging process continues, we need to be aware of different ways to make the home a safer place to reside. The patient has also been counseled that exercise is necessary - and of utmost importance as we age to help decrease fall risk and to maintain independence in the home. Today we discussed the need for the patient to create paperwork for Advanced directives as well as for the patient to provide this office with a copy of her DOPA paperwork for health care surrogate. 01/02/2018 Appointment: Elizabet Donaldson WPtel: [address] [place], [place] [phone] [facility] - Annual Wellness Visit 01/02/2018 Patient Education: Patient Medication Summary Completed 01/02/2018 Visit Plan: Hypertension - well controlled - continue with current medications, continue with no added salt diet. Pt has been encouraged to exercise daily. The pt has been advised to call the office if there are any acute concerns about change in blood pressure readings at home. Back pain - discussed with pt - recommended a massage, and to use heat to back - if not improved, need to consider physical therapy. Pt is going to have right total knee replacement in with Dr. Branham - we will send her labs to his clinic and I have signed a release for her to have surgery. RA - continue with immune modulating therapy - pt's hands feel much better after the Joint injections by Dr. Duncan in . Hypothyroidism - pt with chronic hypothyroidism, continue with current medication, will monitor pt to signs or symptoms of lack of adequate supplementation. Pt is to continue with current dose of medication unless directed otherwise. Check labs at regular intervals q 3 months or q 6 months based on previous levels of control. 12/26/2017 Appointment: Shannon Falk WPtel: [facility] (15 min) Moderate 12/26/2017 Patient Education: Patient Medication Summary Completed 12/26/2017 Patient Education: Hypertension Completed 12/26/2017 Visit Plan: Otalgia -no sign of infection - monitor symptoms and call if they do not resolve Hypertension - not well controlled- monitor at home and come in for blood pressure check -discussed increasing benicar if blood pressure stays elevated. Patient verbalized understanding of plan. 10/17/2017 Appointment: Elizabet Donaldson WPtel: [phone] (15 min) Moderate 10/17/2017 Patient Education: Patient Medication Summary Completed 10/17/2017 Visit Plan: Rheumatoid Arthritis - Bilateral Hands - Pt is not able to take many of the biologic agents -and she does not feel like she can continue with the pain in her hands from the RA. She has never had joint injections and I have recommended that she have and evaluation by a hand specialist - I have recommended Dr[facility]. Hypothyroidism - pt with chronic hypothyroidism, continue with current medication, will monitor pt to signs or symptoms of lack of adequate supplementation. Pt is to continue with current dose of medication unless directed otherwise. Check labs at regular intervals wither q 3 months or q 6 months based on previous levels of control. Hypertension - well controlled - continue with current medications, continue with no added salt diet. Pt has been encouraged to exercise daily. The pt has been advised to call the office if there are any acute concerns about change in blood pressure readings at home. 09/27/2017 Appointment: Shannon Falk WPtel: [phone] [facility] [place] (15 min) Moderate 09/27/2017 Patient Education: Patient Medication Summary Completed 09/27/2017 Care Plan: Referral Order SNOMED-CT : [id number] Pending 09/27/2017 Appointment: Shannon Falk WPtel: [phone] [id number] [place] (15 min) Moderate 09/21/2017 Appointment: Nurse Visit 07/31/2017 Patient Education: Patient Medication Summary Completed 07/31/2017 Visit Plan: Hypertension - well controlled - continue with current medications, continue with no added salt diet. Pt has been encouraged to exercise daily. The pt has been advised to call the office if there are any acute concerns about change in blood pressure readings at home. Hypothyroidism - pt with chronic hypothyroidism, continue with current medication, will monitor pt to signs or symptoms of lack of adequate supplementation. Pt is to continue with current dose of medication unless directed otherwise. Check labs at regular intervals wither q 3 months or q 6 months based on previous levels of control. RA - uncontrolled symptoms - her insurance company has denied her Xlegajnz and she is hopeful that the appeal will be approved, if not, then they are going to have to try Humira - but she is nervous about injecting herself. Increase the celebrex to twice daily. 03/24/2017 Visit Plan: Hypertension - well controlled - continue with current medications, continue with no added salt diet. Pt has been encouraged to exercise daily. The pt has been advised to call the office if there are any acute concerns about change in blood pressure readings at home. Hypothyroidism - pt with chronic hypothyroidism, continue with current medication, will monitor pt to signs or symptoms of lack of adequate supplementation. Pt is to continue with current dose of medication unless directed otherwise. Check labs at regular intervals wither q 3 months or q 6 months based on previous levels of control. RA - uncontrolled symptoms - her insurance company has denied her Xlegablairez and she is hopeful that the appeal will be approved, if not, then they are going to have to try Humira - but she is nervous about injecting herself. Increase the celebrex to twice daily. 03/24/2017 Appointment: Shannon Falk WPtel: [phone] [facility] (15 min) Moderate 03/24/2017 Patient Education: Patient Medication Summary Completed 03/24/2017 Appointment: Shannon Falk WPtel: [phone] [facility] (15 min) Moderate 03/16/2017 Appointment: Shannon Falk WPtel: [facility] (15 min) Moderate 03/01/2017 Visit Plan: Hypertension - well controlled - continue with current medications, continue with no added salt diet. Pt has been encouraged to exercise daily. The pt has been advised to call the office if there are any acute concerns about change in blood pressure readings at home. Hypothyroidism - pt with chronic hypothyroidism, continue with current medication, will monitor pt to signs or symptoms of lack of adequate supplementation. Pt is to continue with current dose of medication unless directed otherwise. Check labs at regular intervals wither q 3 months or q 6 months based on previous levels of control. Pleurisy - continue with supportive care. 08/30/2016 Appointment: Shannon Falk WPtel: [phone] [facility] (15 min) Moderate 08/30/2016 Patient Education: Patient Medication Summary Completed 08/30/2016 Patient Education: Obesity Completed 08/30/2016 Patient Education: Hypertension Completed 08/30/2016 Visit Plan: Pleurisy-discussed natural and expected course of this diagnosis and to alert me if symptoms do not follow expected course, or if any worse. Kenalog injection today in the office-start prednisone tomorrow. Patient verbalized understanding of plan. 08/08/2016 Appointment: Elizabet Donaldson WPtel: [phone] (30 min) Complex 08/08/2016 Patient Education: Patient Medication Summary Completed 08/08/2016 Referral: Delia Bernstein WPtel: [phone] [facility] [id number] Referral Initiated 08/01/2016 Visit Plan: Vaginal yeast infection - Discussed natural and expected course of this diagnosis and need to alert me if symptoms do not follow expected course, or if any worse. RX sent to patient's pharmacy. Discussed pelvic exam with the pt due to recurrent symptoms - Pt would like to be referred to Dr. Bernstein for her recurrent symptoms - will refer. 06/27/2016 Appointment: Shila Deluna WPtel: [facility] (30 min) Complex 06/27/2016 Patient Education: Patient Medication Summary Completed 06/27/2016 Care Plan: Referral Order SNOMED-CT : [id number] Pending 06/27/2016 Visit Plan: Left foot, 1st and 2nd toe pain-suspect fracture of left great toe-will obtain xrays and proceed as indicated. Patient verbalized understanding of plan. 05/23/2016 Appointment: Elizabet Donaldson WPtel: [phone] (15 min) Moderate 05/23/2016 Patient Education: Patient Medication Summary Completed 05/23/2016 Visit Plan: Vaginal yeast infection - Discussed natural and expected course of this diagnosis and need to alert me if symptoms do not follow expected course, or if any worse. RX sent to patient's pharmacy. Discussed pelvic exam with the pt due to recurrent symptoms - pt declines pelvic today but states that if her symptoms persist or if they return she will come in for a pelvic exam. 04/18/2016 Patient Education: Patient Medication Summary Completed 04/18/2016 Visit Plan: Vaginal yeast infection - Discussed natural and expected course of this diagnosis and need to alert me if symptoms do not follow expected course, or if any worse. RX sent to patient's pharmacy. 03/07/2016 Patient Education: Patient Medication Summary Completed 03/07/2016 Visit Plan: Hypertension - well controlled - continue with current medications, continue with no added salt diet. Pt has been encouraged to exercise daily. The pt has been advised to call the office if there are any acute concerns about change in blood pressure readings at home. Hypothyroidism - pt with chronic hypothyroidism, continue with current medication, will monitor pt to signs or symptoms of lack of adequate supplementation. Pt is to continue with current dose of medication unless directed otherwise. Check labs at regular intervals wither q 3 months or q 6 months based on previous levels of control. Diarrhea - functional - start probiotics 02/23/2016 Appointment: Shannon Falk [facility]Ptel[facility] [phone] [facility] (15 min) Moderate 02/23/2016 Patient Education: Patient Medication Summary Completed 02/23/2016 Patient Education: Hypertension Completed 02/23/2016 Visit Plan: Hypertension - well controlled - continue with current medications, continue with no added salt diet. Pt has been encouraged to exercise daily. The pt has been advised to call the office if there are any acute concerns about change in blood pressure readings at home. Hyperlipidemia - pt has been counseled about appropriate diet, exercise, and need for low fat food choices. I have discussed the need for the patient to take medications as prescribed. If the patient has negative side effects from the medication, they are to CALL the office and not abruptly discontinue the medication without discussion with a practitioner in the office. We will check labs in 3-6 months for follow up on the patient's chronic medical problem and to assure normal liver response to medications. Depression - on citalopram - stable symptoms - no change in dose of citalopram at this time. 09/15/2015 Patient Education: Patient Medication Summary Completed 09/15/2015 Appointment: Shannon Falk WPtel: [phone] [facility] [place] (15 min) Moderate 07/29/2015 Visit Plan: Rash - pt has an erythematous macular rash on her legs, arms, and chest - states that she had been working in the yard this weekend and afterward noticed this rash. States that she has had similar rashes in the past and that she has sensitive skin. Will give steroid shot, and send RX. Pt is to notify clinic if symptoms do not improve, if they worsen, or with any concerns. 05/26/2015 Visit Plan: Rash - pt has an erythematous macular rash on her legs, arms, and chest - states that she had been working in the yard this weekend and afterward noticed this rash. States that she has had similar rashes in the past and that she has sensitive skin. Will give steroid shot, and send RX. Pt is to notify clinic if symptoms do not improve, if they worsen, or with any concerns. 05/26/2015 Appointment: (15 min) Moderate 05/26/2015 Patient Education: Patient Medication Summary Completed 05/26/2015 Patient Education: Obesity Completed 05/26/2015 Visit Plan: Hypertension - well controlled - continue with current medications, continue with no added salt diet. Pt has been encouraged to exercise daily. The pt has been advised to call the office if there are any acute concerns about change in blood pressure readings at home. Peripheral Neuropathy - recommended pt to start on higher doses of Neurontin - vitamin B12 liquid 2000mcg daily - [facility] sells the liquid b12, folic acid - take daily. metanex 1 capsule twice daily - call office if this seems to help decrease nerve pain increase the night-time dosing of gabapentin to 300mg in AM, Noon, 6pm and 10pm 04/09/2015 Appointment: Shannon Falk WPtel: [address] [place], [place] [id number] (15 min) Moderate 04/09/2015 Patient Education: Patient Medication Summary Completed 04/09/2015 Patient Education: Hypertension Completed 04/09/2015 Visit Plan: Welcome to Medicare Exam - today we discussed the patients past history, immunizations, preventative exams/evaluations - colonoscopy, fecal occult blood testing, routine labs for renal function, glucose, cholesterol, osteoporosis evaluations, cardiovascular testing and cancer screenings. We have also discussed mental health and the signs/symptoms of depression. The patient was advised of home safety evaluations and the need to make sure that as the aging process continues, we need to be aware of different ways to make the home a safer place to reside. The patient has also been counseled that exercise is necessary - and of utmost importance as we age to help decrease fall risk and to maintain independece in the home. 03/30/2015 Patient Education: Patient Medication Summary Completed 03/30/2015 Referral: Darci Spann Referral Completed 03/16/2015 Visit Plan: Lumbar degenerative arthritis - RX for physical therapy - pt to sign release of information for the office to receive information about her MRI. Foot drop - therapy ordered for the patient - they are to attempt strengthening and pt to possibly have foot drop brace. Order for colonoscopy for pt to be seen by Dr. Spann - pt had 2012 colonoscopy with hyperplastic polyps, Maria Ines recommended repeat scope in 2012. 03/10/2015 Appointment: Shannon Falk WPtel: [address] [place], [place] [id number] (15 min) Moderate 03/10/2015 Patient Education: Patient Medication Summary Completed 03/10/2015 Care Plan: SCREENINGMAMMOGRAPHYDIGITAL LOINC : 68808-1 Ordered 03/10/2015 Care Plan: Referral Order SNOMED-CT : [id number] Ordered 03/10/2015 Care Plan: Referral Order SNOMED-CT : [id number] Ordered 03/10/2015 Visit Plan: Left hip bursitis/Iliotibial band syndrome- recommended use of anti-inflammatories and pt given handout on Iliotibial band exercises.band syndrome- recommended use of anti-inflammatories and pt given handout on Iliotibial band exercises. Refer to Dr Juan for evaluation. Sciatica- start exercises discussed with the patient, pt to continue with antiinflammatories. Pt is to call if the symptoms do not improve or if they worsen. Xray negative-recommend MRI lumbar spine if symptoms do not improve or if they worsen. 12/16/2014 Appointment: (30 min) Complex 12/16/2014 Patient Education: Patient Medication Summary Completed 12/16/2014 Patient Education: .Pippa espinosa lliotibial Band Rehabilitation exercises Completed 12/16/2014 Patient Education: .Pippa espinosa Exercise for Sciatica Completed 12/16/2014 Care Plan: Referral Order SNOMED-CT : [id number] Ordered 12/16/2014 Visit Plan: Sacroiliitis - back exercises discussed with the patient, pt to continue with anti-inflammatories. Pt is to call if the symptoms do not improve or if they worsen. Kenalog injection today in the office. Plan to xray lumbar spine and SI joint. Start steroid taper tomorrow- use hydrocodone prn-call if pain does not resolve or if any worse. 12/09/2014 Appointment: (15 min) Moderate 12/09/2014 Patient Education: Patient Medication Summary Completed 12/09/2014 Patient Education: .Amazing charts Exercise for Sciatica Completed 12/09/2014 Visit Plan: Hypertension - uncontrolled - the patient's medications have been modified as documented in the visit note. The patient has been counseled to cut back on salt in diet for a no added salt diet, low fat diet, start an exercise program with low weight bearing exercises and higher aerobic activity for heart health. The patient is to check blood pressure readings as an outpatient and either fax, call, or email the readings to the office next week for practitioner to review. The pt is to call for acute concerns. increase norvasc to 10mg daily. Carpal tunnel syndrome - pt to use carpal tunnel brace. 11/13/2014 Appointment: Shannon Falk WPtel: [facility] Follow up 11/13/2014 Patient Education: Patient Medication Summary Completed 11/13/2014 Patient Education: Hypertension Completed 11/13/2014 Visit Plan: Hypertension - well controlled - continue with current medications, continue with no added salt diet. Pt has been encouraged to exercise daily. The pt has been advised to call the office if there are any acute concerns about change in blood pressure readings at home. Allergies - chronic - recommended pt to use allergy medication as prescribed. Pt has been counseled as to the appropriate use of the medication. Pt to call if allergy symptoms are not controlled with the medication. If using nasal spray, instructions as follows: Nasal spray- use twice daily, one spray per nostril twice daily, after 30 minutes, rinse out nose with saline spray.. Use opposite hand per nostril to spray in the nasal steroid allergy spray. Diarrhea - recommended bland diet, low fat diet, start on probiotic, and rehydrate with gatorade-like product. Pt to call if feeling worse, diarrhea becomes bloody, or does not improve with above recommendations. Pt to call for acute worsening of stomach upset or stomach pain. ALIGN PROBIOTIC - TAKE DAILY (CULTURELLE OR KIRKPATRICK [employer]ON HEALTH -TWO OTHER PROBIOTICS THAT ARE HIGH QUALITY) CIPROFLOXACIN TO BE TAKEN IF NEEDED IF THE DIARRHEA DOES NOT IMPROVE OR IF IT WORSENS. 07/10/2014 Appointment: Shannon Falk WPtel: [phone] [facility] [place] ([place]) New Patient 07/10/2014 Patient Education: Patient Medication Summary Completed 07/10/2014 Patient Education: Hypertension Completed 07/10/2014 Referral: Darci Spann Referral Relationship Referral: External, Ordering Provider Referral Appointment Requested Referral: External, Ordering Provider 09/28 Referral info faxed to [facility] 10/03 They tried calling her with an appt and she did not answer. Called patient and she will call them back. Appointment Requested Referral: External, Ordering Provider Referral Appointment Requested Referral: Amandeep Delia WPtel[facility] [id number] [id number] [place] Referral Initiated Referral: External, Ordering Provider Referral Completed Instructions Comment . Hypertension - well controlled - continue with current medications, continue with no added salt diet. Pt has been encouraged to exercise daily. The pt has been advised to call the office if there are any acute concerns about change in blood pressure readings at home. Hyperlipidemia - pt has been counseled about appropriate diet, exercise, and need for low fat food choices. I have discussed the need for the patient to take medications as prescribed. If the patient has negative side effects from the medication, they are to CALL the office and not abruptly discontinue the medication without discussion with a practitioner in the office. We will check labs in 3-6 months for follow up on the patient's chronic medical problem and to assure normal liver response to medications. Depression - on citalopram - stable symptoms - no change in dose of citalopram at this time. recommend Shingles vaccine . Medicare Exam - today we discussed the patients past history, immunizations, preventative exams/ evaluations - colonoscopy, fecal occult blood testing, routine labs for renal function, glucose, cholesterol, osteoporosis evaluations, cardiovascular testing and cancer screenings. We have also discussed mental health and the signs/symptoms of depression. The patient was advised of home safety evaluations and the need to make sure that as the aging process continues, we need to be aware of different ways to make the home a safer place to reside. The patient has also been counseled that exercise is necessary - and of utmost importance as we age to help decrease fall risk and to maintain independence in the home. Today we discussed the need for the patient to create paperwork for Advanced directives as well as for the patient to provide this office with a copy of her DOPA paperwork for health care surrogate. Will give steroid shot today, will send prednisone pills, call us and let us know if symptoms do not improve. . Rash - pt has an erythematous macular rash on her legs, arms, and chest - states that she had been working in the yard this weekend and afterward noticed this rash. States that she has had similar rashes in the past and that she has sensitive skin. Will give steroid shot, and send RX. Pt is to notify clinic if symptoms do not improve, if they worsen, or with any concerns. increase celebrex to twice daily . Hypertension - well controlled - continue with current medications, continue with no added salt diet. Pt has been encouraged to exercise daily. The pt has been advised to call the office if there are any acute concerns about change in blood pressure readings at home. Hypothyroidism - pt with chronic hypothyroidism, continue with current medication, will monitor pt to signs or symptoms of lack of adequate supplementation. Pt is to continue with current dose of medication unless directed otherwise. Check labs at regular intervals wither q 3 months or q 6 months based on previous levels of control. RA - uncontrolled symptoms - her insurance company has denied her Xlegajnz and she is hopeful that the appeal will be approved, if not, then they are going to have to try Humira - but she is nervous about injecting herself. Increase the celebrex to twice daily. vitamin B12 liquid 2000mcg daily - [employer] sells the liquid b12 folic acid - take daily. metanex 1 capsule twice daily - call office if this seems to help decrease nerve pain increase the night-time dosing of gabapentin to 300mg in AM, Noon, 6pm and 10pm . Hypertension - well controlled - continue with current medications, continue with no added salt diet. Pt has been encouraged to exercise daily. The pt has been advised to call the office if there are any acute concerns about change in blood pressure readings at home. Peripheral Neuropathy - recommended pt to start on higher doses of Neurontin - vitamin B12 liquid 2000mcg daily - [facility] sells the liquid b12, folic acid - take daily. metanex 1 capsule twice daily - call office if this seems to help decrease nerve pain increase the night-time dosing of gabapentin to 300mg in AM, Noon, 6pm and 10pm XRAY LEFT FOOT AND TOES . Left foot, 1st and 2nd toe pain-suspect fracture of left great toe-will obtain xrays and proceed as indicated. Patient verbalized understanding of plan. Duexis 1 tab twice daily IT band exercises . Left hip bursitis/Iliotibial band syndrome- recommended use of anti- inflammatories and pt given handout on Iliotibial band exercises.band syndrome- recommended use of anti-inflammatories and pt given handout on Iliotibial band exercises. Refer to Dr Juan for evaluation. Sciatica-start exercises discussed with the patient, pt to continue with antiinflammatories. Pt is to call if the symptoms do not improve or if they worsen. Xray negative-recommend MRI lumbar spine if symptoms do not improve or if they worsen. . Pleurisy-discussed natural and expected course of this diagnosis and to alert me if symptoms do not follow expected course, or if any worse. Kenalog injection today in the office-start prednisone tomorrow. Patient verbalized understanding of plan. . Welcome to Medicare Exam - today we discussed the patients past history, immunizations, preventative exams/evaluations - colonoscopy, fecal occult blood testing, routine labs for renal function, glucose, cholesterol, osteoporosis evaluations, cardiovascular testing and cancer screenings. We have also discussed mental health and the signs/symptoms of depression. The patient was advised of home safety evaluations and the need to make sure that as the aging process continues, we need to be aware of different ways to make the home a safer place to reside. The patient has also been counseled that exercise is necessary - and of utmost importance as we age to help decrease fall risk and to maintain independece in the home. MONITOR BLOOD PRESSURE AND PULSE -BRING READINGS IN FOR BLOOD PRESSURE CHECK IN THE NEXT COUPLE OF WEEKS . Otalgia -no sign of infection - monitor symptoms and call if they do not resolve Hypertension - not well controlled-monitor at home and come in for blood pressure check -discussed increasing benicar if blood pressure stays elevated. Patient verbalized understanding of plan. . Hypertension - well controlled - continue with current medications, continue with no added salt diet. Pt has been encouraged to exercise daily. The pt has been advised to call the office if there are any acute concerns about change in blood pressure readings at home. Hypothyroidism - pt with chronic hypothyroidism, continue with current medication, will monitor pt to signs or symptoms of lack of adequate supplementation. Pt is to continue with current dose of medication unless directed otherwise. Check labs at regular intervals wither q 3 months or q 6 months based on previous levels of control. Diarrhea - functional - start probiotics . Vaginal yeast infection - Discussed natural and expected course of this diagnosis and need to alert me if symptoms do not follow expected course, or if any worse. RX sent to patient's pharmacy. . Hypertension - well controlled - continue with current medications, continue with no added salt diet. Pt has been encouraged to exercise daily. The pt has been advised to call the office if there are any acute concerns about change in blood pressure readings at home. Hypothyroidism - pt with chronic hypothyroidism, continue with current medication, will monitor pt to signs or symptoms of lack of adequate supplementation. Pt is to continue with current dose of medication unless directed otherwise. Check labs at regular intervals wither q 3 months or q 6 months based on previous levels of control. Pleurisy - continue with supportive care. dr. gely duncan [facility] - [facility] . Rheumatoid Arthritis - Bilateral Hands - Pt is not able to take many of the biologic agents -and she does not feel like she can continue with the pain in her hands from the RA. She has never had joint injections and I have recommended that she have and evaluation by a hand specialist - I have recommended Dr[facility]. Hypothyroidism - pt with chronic hypothyroidism, continue with current medication, will monitor pt to signs or symptoms of lack of adequate supplementation. Pt is to continue with current dose of medication unless directed otherwise. Check labs at regular intervals wither q 3 months or q 6 months based on previous levels of control. Hypertension - well controlled - continue with current medications, continue with no added salt diet. Pt has been encouraged to exercise daily. The pt has been advised to call the office if there are any acute concerns about change in blood pressure readings at home. Will give steroid shot today, will send prednisone pills, call us and let us know if symptoms do not improve. . Rash - pt has an erythematous macular rash on her legs, arms, and chest - states that she had been working in the yard this weekend and afterward noticed this rash. States that she has had similar rashes in the past and that she has sensitive skin. Will give steroid shot, and send RX. Pt is to notify clinic if symptoms do not improve, if they worsen, or with any concerns. Nasal spray- use twice daily, one spray per nostril twice daily, after 30 minutes, rinse out nose with saline spray.. Use opposite hand per nostril to spray in the nasal steroid allergy spray. ALIGN PROBIOTIC - TAKE DAILY ([employer] [facility] [employer] [facility] -TWO OTHER PROBIOTICS THAT ARE HIGH QUALITY) CIPROFLOXACIN TO BE TAKEN IF NEEDED IF THE DIARRHEA DOES NOT IMPROVE OR IF IT WORSENS. . Hypertension - well controlled - continue with current medications, continue with no added salt diet. Pt has been encouraged to exercise daily. The pt has been advised to call the office if there are any acute concerns about change in blood pressure readings at home. Allergies - chronic - recommended pt to use allergy medication as prescribed. Pt has been counseled as to the appropriate use of the medication. Pt to call if allergy symptoms are not controlled with the medication. If using nasal spray, instructions as follows: Nasal spray- use twice daily, one spray per nostril twice daily, after 30 minutes, rinse out nose with saline spray.. Use opposite hand per nostril to spray in the nasal steroid allergy spray. Diarrhea - recommended bland diet, low fat diet, start on probiotic, and rehydrate with gatorade-like product. Pt to call if feeling worse, diarrhea becomes bloody, or does not improve with above recommendations. Pt to call for acute worsening of stomach upset or stomach pain. ALIGN PROBIOTIC - TAKE DAILY ([employer] OR [employer] [facility] -TWO OTHER PROBIOTICS THAT ARE HIGH QUALITY) CIPROFLOXACIN TO BE TAKEN IF NEEDED IF THE DIARRHEA DOES NOT IMPROVE OR IF IT WORSENS. . Lumbar degenerative arthritis - RX for physical therapy - pt to sign release of information for the office to receive information about her MRI. Foot drop - therapy ordered for the patient - they are to attempt strengthening and pt to possibly have foot drop brace. Order for colonoscopy for pt to be seen by Dr. Spann - pt had 2013 colonoscopy with hyperplastic polyps, Maria Ines recommended repeat scope in 2013. XRAY LUMBAR SPINE AND SI JOINT SCIATICA EXERCISES . Sacroiliitis - back exercises discussed with the patient, pt to continue with anti-inflammatories. Pt is to call if the symptoms do not improve or if they worsen. Kenalog injection today in the office. Plan to xray lumbar spine and SI joint. Start steroid taper tomorrow-use hydrocodone prn-call if pain does not resolve or if any worse. . Vaginal yeast infection - Discussed natural and expected course of this diagnosis and need to alert me if symptoms do not follow expected course, or if any worse. RX sent to patient's pharmacy. Discussed pelvic exam with the pt due to recurrent symptoms - pt declines pelvic today but states that if her symptoms persist or if they return she will come in for a pelvic exam. you currently have amlodipine 5mg, increase this to two pills, use up your supply, when it is finished, refill the 10mg pill at [facility]. carpal tunnel brace . Hypertension - uncontrolled - the patient's medications have been modified as documented in the visit note. The patient has been counseled to cut back on salt in diet for a no added salt diet, low fat diet, start an exercise program with low weight bearing exercises and higher aerobic activity for heart health. The patient is to check blood pressure readings as an outpatient and either fax , call, or email the readings to the office next week for practitioner to review. The pt is to call for acute concerns. increase norvasc to 10mg daily. Carpal tunnel syndrome - pt to use carpal tunnel brace. . Vaginal yeast infection - Discussed natural and expected course of this diagnosis and need to alert me if symptoms do not follow expected course, or if any worse. RX sent to patient's pharmacy. Discussed pelvic exam with the pt due to recurrent symptoms - Pt would like to be referred to Dr. Bernstein for her recurrent symptoms - will refer. increase celebrex to twice daily . Hypertension - well controlled - continue with current medications, continue with no added salt diet. Pt has been encouraged to exercise daily. The pt has been advised to call the office if there are any acute concerns about change in blood pressure readings at home. Hypothyroidism - pt with chronic hypothyroidism, continue with current medication, will monitor pt to signs or symptoms of lack of adequate supplementation. Pt is to continue with current dose of medication unless directed otherwise. Check labs at regular intervals wither q 3 months or q 6 months based on previous levels of control. RA - uncontrolled symptoms - her insurance company has denied her Xlegajnz and she is hopeful that the appeal will be approved, if not, then they are going to have to try Humira - but she is nervous about injecting herself. Increase the celebrex to twice daily. [facility] - look up on [employer] . Hypertension - well controlled - continue with current medications, continue with no added salt diet. Pt has been encouraged to exercise daily. The pt has been advised to call the office if there are any acute concerns about change in blood pressure readings at home. Back pain - discussed with pt - recommended a massage, and to use heat to back - if not improved, need to consider physical therapy. Pt is going to have right total knee replacement in with Dr. Branham - we will send her labs to his clinic and I have signed a release for her to have surgery. RA - continue with immune modulating therapy - pt's hands feel much better after the Joint injections by Dr. Duncan in . Hypothyroidism - pt with chronic hypothyroidism, continue with current medication, will monitor pt to signs or symptoms of lack of adequate supplementation. Pt is to continue with current dose of medication unless directed otherwise. Check labs at regular intervals q 3 months or q 6 months based on previous levels of control.
--- OUTSIDE RECORDS SUMMARY | 2018-03-17 11:17 | XMS REPORT | CCD ---
Author Author [facility] Organization [facility] Address [address] [place] [address] Phone Care Team Providers Care Infectious Diseases Physician Name Role Phone PP Unavailable CCM Unavailable Summary Purpose Interface Exchange Insurance Providers Payer name Policy type / Coverage type Covered libertarian ID Effective Begin Date Effective End Date WPS Medicare Part B Medicare Part B [id number] Unknown [employer] Medicare Part B [id number] Unknown Family history Brother Diagnosis Age At [...] Unknown 2 07/10/[address]: 337222521 Has never smoked or chewed tobacco 07/10/2014 Alcohol history Unknown occasionally drinks alcohol 07/10/2014 Allergies, Adverse Reactions, Alerts Substance Reaction Codes Entered Date Inactivated Date Status Remicade hives RxNorm: 678008 03/24/2017 No Inactive Date Active * NO [...] Start Date Stop Date Status Fill Instructions hydrocodone 7.5 mg-acetaminophen 325 mg tablet RxNorm: 913620 1-2 Tablet(s) PO Q4H as needed 10/12/2017 10/26/2017 Inactive Synthroid 75 mcg tablet RxNorm: 273684 Tablet(s) TAKE 1 TABLET BY MOUTH DAILY 08/09/2017 03/06/2018 Active Generic For:*SYNTHROID 0.075MG TAB 11/14/2016 9:16: 33 AM N O T I C E Last quantity doesn't match original quantity hydrocodone 7.5 mg-acetaminophen 325 mg tablet RxNorm: 546500 1-2 Tablet(s) PO Q4H as needed 05/22/2017 06/20/2017 Inactive citalopram 20 mg tablet RxNorm: 460247 Tablet(s) TAKE ONE (1) TABLET BY MOUTH DAILY 05/09/2017 05/03/2018 Active amlodipine 10 mg tablet RxNorm: 466593 1 Tablet(s) PO daily 1 Tablet(s) PO daily 05/09/2017 09/26/2017 Inactive losartan 100 mg tablet RxNorm: 538726 1 Tablet(s) PO daily TAKE 1 TABLET BY MOUTH DAILY 05/09/2017 01/01/2018 Inactive Celebrex 200 mg capsule RxNorm: 592092 1 Capsule(s) PO BID 03/201703/18/2018 Active gabapentin 300 mg capsule RxNorm: 394406 1 Capsule(s) PO daily 03/24/2017 No Stop Date Active Celebrex 200 mg capsule RxNorm: 409442 1 Capsule(s) PO BID 1 Capsule(s) PO daily 03/24/2017 03/23/2017 Inactive amlodipine 10 mg tablet RxNorm: 679406 1 Tablet(s) PO daily 1 Tablet(s) PO daily 03/24/2017 05/08/2017 Inactive Lipitor 40 mg tablet RxNorm: 478456 Tablet(s) TAKE ONE TABLET BY MOUTH AT BEDTIME 02/14/2017 09/26/2017 Inactive hydrocodone 7.5 mg-acetaminophen 325 mg tablet RxNorm: 872657 1-2 Tablet(s) PO Q4H as needed 01/16/2017 02/14/2017 Inactive scopolamine 1.5 mg transdermal patch (1 mg over 3 days) RxNorm: 482607 1 Patch TD Q72H 11/25/2016 12/04/2016 Inactive scopolamine 1.5 mg transdermal patch (1 mg over 3 days) RxNorm: 655523 1 Patch TD Q72H 11/25/2016 11/24/2016 Inactive losartan 100 mg tablet RxNorm: 181847 1 Tablet(s) PO daily TAKE 1 TABLET BY MOUTH DAILY 11/14/2016 05/08/2017 Inactive Generic For:COZAAR 100MG TAB 05/17/2016 8:31: 51 AM Synthroid 75 mcg tablet RxNorm: 771683 TAKE 1 TABLET BY MOUTH DAILY 11/14/2016 06/11/2017 Inactive Generic For:*SYNTHROID 0.075MG TAB 11/14/2016 9:16:33 AM N O T I C E Last quantity doesn't match original quantity citalopram 20 mg tablet RxNorm: 520954 TAKE ONE (1) TABLET BY MOUTH DAILY 11/14/2016 05/08/2017 Inactive Generic For:CELEXA 20MG TAB 11/14/2016 8:30:49 AM N O T I C E Last quantity doesn't match original quantity prednisone 10 mg tablets in a dose pack RxNorm: 353064 1 Tablet(s) PO UD 09/30/2016 10/05/2016 Inactive 6-5-4-3-2-1 hydrocodone 7.5 mg-acetaminophen 325 mg tablet RxNorm: 478601 1-2 Tablet(s) PO Q4H as needed 09/20/2016 01/15/2017 Inactive amlodipine 5 mg tablet RxNorm: 264612 TAKE ONE TABLET BY MOUTH EVERY DAY 08/15/2016 03/23/2017 Inactive Generic For:NORVASC 5 MG TABLET 08/15/2016 3:56:26 PM N O T I C E Last quantity doesn't match original quantity Kenalog 40 mg/mL suspension for injection RxNorm: 2797942 1 Milliliter(s) Inj 08/08/2016 08/08/2016 Inactive prednisone 10 mg tablets in a dose pack RxNorm: 214603 1 Tablet(s) PO UD 08/08/2016 08/07/2016 Inactive prednisone 10 mg tablets in a dose pack RxNorm: 636875 1 Tablet(s) PO UD 08/08/2016 08/13/2016 Inactive 6-5-4-3-2-1 Diflucan 150 mg tablet RxNorm: 996011 1 Tablet(s) PO daily 09/201607/10/2016 Inactive Synthroid 75 mcg tablet RxNorm: 962187 TAKE 1 TABLET BY MOUTH DAILY 06/16/2016 11/13/2016 Inactive Generic For:*SYNTHROID 0.075MG TAB pt would like a 90 day supply N O T I C E Last quantity doesn't match original quantity hydrocodone 7.5 mg-acetaminophen 325 mg tablet RxNorm: 857557 1-2 Tablet(s) PO Q4H as needed 06/06/2016 09/19/2016 Inactive citalopram 20 mg tablet RxNorm: 037731 TAKE ONE (1) TABLET BY MOUTH DAILY 05/18/2016 11/13/2016 Inactive Generic For:CELEXA 20MG TAB 05/17/2016 8:32:02 AM Celebrex 200 mg capsule RxNorm: 274865 1 Capsule(s) PO daily 03/23/2017 Inactive losartan 100 mg tablet RxNorm: 554638 TAKE 1 TABLET BY MOUTH DAILY 05/17/2016 11/12/2016 Inactive Generic For:COZAAR 100MG TAB 05/17/2016 8:31:51 AM amlodipine 5 mg tablet RxNorm: 207135 1 Tablet(s) PO daily 08/14/2016 Inactive Cipro 500 mg tablet RxNorm: 451996 1 Tablet(s) PO BID 201605/03/2016 Inactive Cipro 500 mg tablet RxNorm: 015798 1 Tablet(s) PO BID 201605/13/2016 Inactive Diflucan 150 mg tablet RxNorm: 184695 1 Tablet(s) PO daily 05/01/2016 Inactive Monistat Soothing Care 1.2 % topical gel RxNorm: 8324806 1 Application TOP BID 03/07/2016 01/01/2018 Inactive Diflucan 150 mg tablet RxNorm: 426244 1 Tablet(s) PO daily 03/13/2016 Inactive Lipitor 40 mg tablet RxNorm: 166428 Tablet(s) TAKE ONE TABLET BY MOUTH AT BEDTIME 02/23/2016 02/13/2017 Inactive citalopram 20 mg tablet RxNorm: 650334 TAKE ONE (1) TABLET BY MOUTH DAILY 02/18/2016 05/17/2016 Inactive Generic For:CELEXA 20MG TAB refill request losartan 100 mg tablet RxNorm: 803529 Tablet(s) 1 Tablet, 1 time per Day 02/09/2016 05/16/2016 Inactive INSURANCE WILL NOT COVER ADELA ANDREWS DENIED UNTIL OTHER FORMULARIES HAVE BEEN TRIED AND FAILED hydrocodone 7.5 mg-acetaminophen 325 mg tablet RxNorm: 807037 1-2 Tablet(s) PO Q4H as needed 02/03/2016 06/05/2016 Inactive Synthroid 75 mcg tablet RxNorm: 148230 Tablet(s) TAKE 1 TABLET BY MOUTH DAILY 01/19/2016 06/15/2016 Inactive Generic For:*SYNTHROID 0.075MG TAB 09/22/2014 10:00 :02 AM N O T I C E PRESCRIPTION PREVIOUSLY AUTHORIZED BY DOCTOR:SWATI BEY prednisone 10 mg tablets in a dose pack RxNorm: 814962 1 Tablet(s) PO UD 01/07/2016 02/22/2016 Inactive 6-5-4-3-2-1 amlodipine 10 mg tablet RxNorm: 839366 1 Tablet(s) PO daily 11/30/2016 Inactive citalopram 20 mg tablet RxNorm: 280241 TAKE ONE (1) TABLET BY MOUTH DAILY 11/17/2015 02/14/2016 Inactive Generic For:CELEXA 20MG TAB refill request hydrocodone 7.5 mg-acetaminophen 325 mg tablet RxNorm: 021515 1-2 Tablet(s) PO Q4H as needed 10/08/2015 02/02/2016 Inactive losartan 100 mg tablet RxNorm: 148940 Tablet(s) 1 Tablet, 1 time per Day 2015 02/07/2016 Inactive INSURANCE WILL NOT COVER ADELA ANDREWS UNTIL OTHER FORMULARIES HAVE BEEN TRIED AND FAILED citalopram 20 mg tablet RxNorm: 299732 TAKE ONE (1) TABLET BY MOUTH DAILY 08/10/2015 11/07/2015 Inactive Generic For:CELEXA 20MG TAB 08/10/2015 8:59:58 AM Synthroid 75 mcg tablet RxNorm: 383185 Tablet(s) TAKE 1 TABLET BY MOUTH DAILY 05/26/2015 12/21/2015 Inactive Generic For:*SYNTHROID 0.075MG TAB 09/22/2014 10:00 :02 AM N O T I C E PRESCRIPTION PREVIOUSLY AUTHORIZED BY DOCTOR:SWATI BEY prednisone 20 mg tablet RxNorm: 296694 2 Tablet(s) PO daily 06/201505/30/2015 Inactive Lipitor 40 mg tablet RxNorm: 969545 TAKE ONE TABLET BY MOUTH AT BEDTIME 05/14/2015 02/07/2016 Inactive Generic For:LIPITOR 40MG TAB 05/13/2015 8:26:33 AM N O T I C E PRESCRIPTION PREVIOUSLY AUTHORIZED BY DOCTOR:SWATI BEY [phone] 150 [phone] hydrocodone 7.5 mg-acetaminophen 325 mg tablet RxNorm: 617918 1-2 Tablet(s) PO Q4H as needed 05/11/2015 10/07/2015 Inactive Celebrex 200 mg capsule RxNorm: 625725 1 Capsule(s) PO daily 04/30/2016 Inactive citalopram 20 mg tablet RxNorm: 395737 TAKE ONE (1) TABLET BY MOUTH DAILY 04/27/2015 07/25/2015 Inactive Generic For:CELEXA 20MG TAB 04/26/2015 7:30:08 PM gabapentin 300 mg capsule RxNorm: 280164 1 Capsule(s) PO QID 04/02/2016 Inactive citalopram 20 mg tablet RxNorm: 150490 TAKE ONE (1) TABLET BY MOUTH DAILY 01/26/2015 04/25/2015 Inactive Generic For:CELEXA 20MG TAB 01/26/2015 8:40:11 AM losartan 100 mg tablet RxNorm: 650300 1 Tablet, 1 time per Day 01/26/2015 03/29/2015 Inactive INSURANCE WILL NOT COVER ADELA ANDREWS UNTIL OTHER FORMULARIES HAVE BEEN TRIED AND FAILED hydrocodone 7.5 mg-acetaminophen 325 mg tablet RxNorm: 786301 1-2 Tablet(s) PO Q4H as needed 01/23/2015 05/10/2015 Inactive Neurontin 100 mg capsule RxNorm: 827861 1 Capsule(s) PO TID 03/09/2015 Inactive Neurontin 100 mg capsule RxNorm: 655761 1 Capsule(s) PO TID 01/13/2015 Inactive Keflex 500 mg capsule RxNorm: 284066 1 Capsule(s) PO TID 201401/05/2015 Inactive Keflex 500 mg capsule RxNorm: 491494 1 Capsule(s) PO TID 201401/12/2015 Inactive hydrocodone 7.5 mg-acetaminophen 325 mg tablet RxNorm: 510991 1-2 Tablet(s) PO Q4H as needed 12/29/2014 01/22/2015 Inactive Duexis 800 mg-26.6 mg tablet RxNorm: 7238044 1 Tablet(s) PO TID as needed 12/19/2014 03/29/2015 Inactive Duexis 800 mg-26.6 mg tablet RxNorm: 5140126 1 Tablet(s) PO TID as needed 12/19/2014 12/18/2014 Inactive Kenalog 40 mg/mL suspension for injection RxNorm: 7384729 1 Milliliter(s) Inj 12/09/2014 12/09/2014 Inactive prednisone 10 mg tablets in a dose pack RxNorm: 927977 1 Tablet(s) PO UD 12/09/2014 12/14/2014 Inactive 6-5-4-3-2-1 amlodipine 10 mg tablet RxNorm: 070312 1 Tablet(s) PO daily 11/07/2015 Inactive citalopram 20 mg tablet RxNorm: 008792 TAKE ONE (1) TABLET BY MOUTH DAILY 10/23/2014 01/20/2015 Inactive Generic For:CELEXA 20MG TAB 10/23/2014 4:32:02 PM N O T I C E PRESCRIPTION PREVIOUSLY AUTHORIZED BY DOCTOR:SWATI BEY hydrocodone 7.5 mg-acetaminophen 325 mg tablet RxNorm: 403181 1-2 Tablet(s) PO Q4H as needed 10/22/2014 12/28/2014 Inactive Synthroid 75 mcg tablet RxNorm: 277139 TAKE 1 TABLET BY MOUTH DAILY 09/22/2014 04/19/2015 Inactive Generic For:*SYNTHROID 0.075MG TAB 09/22/2014 10:00:02 AM N O T I C E PRESCRIPTION PREVIOUSLY AUTHORIZED BY DOCTOR:SWATI BEY amlodipine 5 mg tablet RxNorm: 199308 1 Tablet(s) PO daily 07/201411/12/2014 Inactive Synthroid 75 mcg tablet RxNorm: 444679 1 Tablet(s) PO daily ecept a 1/2 tab on Monday07/11/2014 09/21/2014 Inactive Flonase Allergy Relief 50 mcg/actuation nasal spray, suspension RxNorm: [address] [place] NASAL BID 07/10/2014 12/06/2014 Inactive Aldactone 25 mg tablet RxNorm: 126998 1 Tablet(s) PO daily No Start Date Active Benicar 20 mg tablet RxNorm: 673478 1 Tablet(s) PO daily No Start Date Active chlorthalidone 25 mg tablet RxNorm: 056275 1 Tablet(s) PO daily No Start Date Active methotrexate sodium 2.5 mg tablet RxNorm: 114360 3 Tablet(s) PO weekly No Start Date 04/08/2015 Inactive gabapentin 300 mg capsule RxNorm: 314828 1 Capsule(s) PO TID No Start Date 04/08/2015 Inactive Plaquenil 200 mg tablet RxNorm: 897997 1 Tablet(s) PO BID No Start Date 05/22/2016 Inactive losartan 100 mg tablet RxNorm: 706147 1 Tablet(s) PO daily No Start Date 01/25/2015 Inactive Remicade intravenous RxNorm: 781187 intravenous No Start Date 03/23/2017 Inactive amlodipine 5 mg tablet RxNorm: 076664 1 Tablet(s) PO daily No Start Date 08/24/2014 Inactive Celebrex 200 mg capsule RxNorm: 887301 1 Capsule(s) PO daily No Start Date 10/16/2017 Inactive citalopram 20 mg tablet RxNorm: 151362 1 Tablet(s) PO daily No Start Date 10/22/2014 Inactive Synthroid 88 mcg tablet RxNorm: 037905 1 Tablet(s) PO daily No Start Date 07/09/2014 Inactive Arava 20 mg tablet RxNorm: 530020 1 Tablet(s) PO daily No Start Date 01/01/2018 Inactive Lipitor 40 mg tablet RxNorm: 045622 1 Tablet(s) PO daily No Start Date 05/13/2015 Inactive Synthroid 75 mcg tablet RxNorm: 287675 1 Tablet(s) PO daily No Start Date 07/10/2014 Inactive hydrocodone 7.5 mg-acetaminophen 325 mg tablet RxNorm: 952338 Tablet(s) PO as needed No Start Date 10/21/2014 Inactive Medication Administered Medication Codes Instructions Start Date Status Kenalog 40 mg/mL suspension for injection RxNorm: 7703260 1Milliliter 08/08/2016 No longer Active Kenalog 40 mg/mL suspension for injection RxNorm: 1290634 1Milliliter 12/09/2014 No longer Active Immunizations No [...] 31.1 pg 12/26/2017 Cbc With Differential Ord2 [place]% 9.2 % 12/26/2017 Cbc With Differential Ord2 [...] 1.53 K/ul 12/26/2017 Cbc With Differential Ord2 [place] ABS# 0.7 K/ul 12/26/2017 Cbc With Differential Ord2 Eos ABS# 0.1 K/ul 12/26/2017 Cbc With Differential Ord2 Baso ABS# 0.0 K/ul 12/26/2017 Free T4 Xqv922 FREE T4 0.93 ng/dL 12/26/2017 Comp Metabolic Lax716 NA 135 mEq/L 12/26/2017 Comp Metabolic Hkt282 K 4.4 mEq/L 12/26/2017 Comp Metabolic Iuk314 CL 98 mEq/L 12/26/2017 Comp Metabolic Gel052 CO2 28.0 mEq/L 12/26/2017 Comp Metabolic Tvx895 ANION GAP 13 12/26/2017 Comp Metabolic Qnn636 GLUCOSE 92 mg/dL 12/26/2017 Comp Metabolic Ocl466 Creat 1.1 mg/dL 12/26/2017 Comp Metabolic Zqj313 eGFR 52 ml/min/1.73m2 12/26/2017 Comp Metabolic Kzw635 BUN 25 mg/dL 12/26/2017 Comp Metabolic Syr009 B/C Ratio 22.7 Ratio 12/26/2017 Comp Metabolic Fvr827 CALCIUM 9.8 mg/dL 12/26/2017 Comp Metabolic Iig687 ALK PHOS 91 U/L 12/26/2017 Comp Metabolic Scx414 AST(SGOT) 16 U/L 12/26/2017 Comp Metabolic Rob688 ALT(SGPT) 12 U/L 12/26/2017 Comp Metabolic Ysj358 BILI T 0.5 mg/dL 12/26/2017 Comp Metabolic Jka199 ALBUMIN 4.3 g/dL 12/26/2017 Comp Metabolic Lhx622 TPRO 6.8 g/dL 12/26/2017 Comp Metabolic Wqy536 GLOB 2.5 g/dL 12/26/2017 Comp Metabolic Rcl460 A/G Ratio 1.7 Ratio 12/26/2017 Comp Metabolic Dek347 Osmo 274 mOsmo 12/26/2017 Urine Culture Ucult Complete NO Growth Day 2 06/29/2016 Urine Culture Ucult Preliminary NO Growth Day 1 06/29/2016 Culture Urine [id number] URINE CULTURE SEE NOTES 04/22/2016 Culture Urine [id number] Continued Results 04/22/2016 Urine Culture Ucult Complete >100,000 col/ml aerobic growth sent to ref lab 04/20/2016 Comp Metabolic Bnp973 NA 137 mEq/L 02/10/2016 Comp Metabolic Zkp982 K 4.1 mEq/L 02/10/2016 Comp Metabolic Mli883 CL 102 mEq/L 02/10/2016 Comp Metabolic Sfp865 CO2 28.0 mEq/L 02/10/2016 Comp Metabolic Uty481 ANION GAP 11 02/10/2016 Comp Metabolic Pwy248 GLUCOSE 104 mg/dL 02/10/2016 Comp Metabolic Bwy491 Creat 0.7 mg/dL 02/10/2016 Comp Metabolic Vrq690 eGFR 83 ml/min/1.73m2 02/10/2016 Comp Metabolic Ymk179 BUN 14 mg/dL 02/10/2016 Comp Metabolic Fdp407 B/C Ratio 18.9 Ratio 02/10/2016 Comp Metabolic Alt038 CALCIUM 9.7 mg/dL 02/10/2016 Comp Metabolic Ket763 ALK PHOS 121 U/L 02/10/2016 Comp Metabolic Aso367 AST(SGOT) 19 U/L 02/10/2016 Comp Metabolic Baa370 ALT(SGPT) 13 U/L 02/10/2016 Comp Metabolic Uvc442 BILI T 0.5 mg/dL 02/10/2016 Comp Metabolic Unr973 ALBUMIN 4.3 g/dL 02/10/2016 Comp Metabolic Waq760 TPRO 6.8 g/dL 02/10/2016 Comp Metabolic Omh721 GLOB 2.5 g/dL 02/10/2016 Comp Metabolic Dnr397 A/G Ratio 1.7 Ratio 02/10/2016 Comp Metabolic Nuv970 Osmo 275 mOsmo 02/10/2016 Lipid Ord30 CHOL 229 mg/dL 02/10/2016 Lipid Ord30 HDL 59.0 mg/dl 02/10/2016 Lipid Ord30 TRIG 252 mg/dL 02/10/2016 Lipid Ord30 LDL 120 mg/dL 02/10/2016 Lipid Ord30 C/HDL 3.9 Ratio 02/10/2016 Free T4 Vug826 FREE T4 0.87 ng/dL 02/10/2016 Tsh Ord6 [...] 29.2 pg 02/10/2016 Cbc With Differential Ord2 [place]% 18.6 % 02/10/2016 Cbc With Differential Ord2 [...] 1.81 K/ul 02/10/2016 Cbc With Differential Ord2 [place] ABS# 1.1 K/ul 02/10/2016 Cbc With Differential Ord2 Eos ABS# 0.1 K/ul 02/10/2016 Cbc With Differential Ord2 Baso ABS# 0.1 K/ul 02/10/2016 Tsh Ord6 hTSH II 0.85 uIU/mL 04/02/2015 Lipid Ord30 CHOL 207 mg/dL 04/02/2015 Lipid Ord30 HDL 68.0 mg/dl 04/02/2015 Lipid Ord30 TRIG 193 mg/dL 04/02/2015 Lipid Ord30 LDL 100 mg/dL 04/02/2015 Lipid Ord30 C/HDL 3.0 Ratio 04/02/2015 Free T4 Ska762 FREE T4 1.09 ng/dL 04/02/2015 Free T4 Yvb504 FREE T4 0.82 ng/dL 10/15/2014 Tsh Ord6 [...] 1994 Musculoskeletal digits and nails DIPs: second 09/27/2017 None Full Exam - General 1994 Musculoskeletal digits and nails DIPs: third 09/27/2017 None Full Exam - General 1995 Musculoskeletal digits and nails DIPs: fourth 09/27/2017 None Full Exam - General 1995 Musculoskeletal digits and nails DIPs: fifth 09/27/2017 [...] hygiene 03/24/2017 None Full Exam - General 1995 Eyes conjunctiva /eyelids Overall: conjunctiva clear 03/24/2017 None Full Exam - General 1995 Eyes conjunctiva /eyelids Overall: cornea clear 03/24/2017 None Full Exam - General 1994 Eyes conjunctiva /eyelids Overall: eyelids normal 03/24/2017 None Full Exam - General 1994 Eyes pupils and irises Overall: pupils equal, round, reactive to light and accomodation 03/24/2017 None Full Exam - General 1995 Ears/Nose/Throat otoscopic exam Overall: external auditory canals clear 03/24/2017 None Full Exam - General 1995 Ears/Nose/Throat otoscopic exam Overall: tympanic membranes clear 03/24/2017 None Full Exam - General 1995 Ears/Nose/Throat lips/teeth/gingiva Overall: benign lips 03/24/2017 None Full Exam - General 1995 Ears/Nose/Throat lips/teeth/gingiva Overall: normal dentition 03/24/2017 None Full Exam - General 1995 Ears/Nose/Throat oral cavity/pharynx/larynx Overall: oral mucosa clear 03/24/2017 None Full Exam - General 1995 Ears/Nose/Throat oral cavity/pharynx/larynx Overall: oropharyngeal mucosa clear 03/24/2017 None Full Exam - General 1995 Ears/Nose/Throat oral cavity/pharynx/larynx Overall: hypopharynx benign 03/24/2017 None Full Exam - General 1994 Ears/Nose/Throat oral cavity/pharynx/larynx Overall: no masses 03/24/2017 [...] clubbing 03/24/2017 None Full Exam - General 1994 [...] time 08/08/2016 None Full Exam - General 1994 [...] clear 02/23/2016 None Full Exam - General 1995 Ears/Nose/Throat oral cavity/pharynx/larynx Overall: oropharyngeal mucosa clear [...] Code : 8480-6 BMI: 32.4 Code : 93399-7 Heart Rate 1 : 80 bpm Height: 5'4" SpO2: 99% Waist Measure (cm): 104 cm Weight: 189 lbs 12/26/2017 Blood Pressure 1: 138/72 Code : 8480-6 BMI: 31.4 Code : 66194-4 Heart Rate 1 : 72 bpm Height: 5'4" SpO2: 96% Weight: 183 lbs 10/17/2017 Blood Pressure 1: 156/72 Code : 8480-6 BMI: 31.4 Code : 43139-0 Heart Rate 1 : 81 bpm Height: 5'4" SpO2: 98% Temperature: 36.5 (C) / 97.7 (F) Weight: 183 lbs 09/27/2017 Blood Pressure 1: 140/82 Code : 8480-6 BMI: 32.1 Code : 97098-5 Heart Rate 1 : 82 bpm Height: 5'4" SpO2: 98% Weight: 187 lbs 07/31/2017 Blood Pressure 1: 138/82 Code : 8480-6 Heart Rate 1: 87 bpm SpO2: 99% 03/24/2017 Blood Pressure 1: 146/86 Code : 8480-6 BMI: 31.8 Code : 83628-3 Heart Rate 1 : 79 bpm Height: 5'4" SpO2: 96% Temperature: 36.4 (C) / 97.5 (F) Weight: 185 lbs 08/30/2016 Blood Pressure 1: 142/88 Code : 8480-6 BMI: 31.6 Code : 47729-5 Heart Rate 1 : 80 bpm Height: 5'4" SpO2: 93% Weight: 184 lbs 08/08/2016 Blood Pressure 1: 142/76 Code : 8480-6 BMI: 29.9 Code : 50910-4 Heart Rate 1 : 80 bpm Height: 5'4" SpO2: 94% Weight: 174 lbs 06/27/2016 Blood Pressure 1: 156/72 Code : 8480-6 BMI: 30.6 Code : 74496-7 Heart Rate 1 : 78 bpm Height: 5'4" SpO2: 95% Weight: 178 lbs 05/23/2016 Blood Pressure 1: 146/84 Code : 8480-6 Heart Rate 1: 66 bpm Height: 5'4" SpO2: 94% 04/18/2016 Blood Pressure 1: 148/84 Code : 8480-6 BMI: 30.2 Code : 82901-4 Heart Rate 1 : 81 bpm Height: 5'4" SpO2: 97% Weight: 176 lbs 03/07/2016 Blood Pressure 1: 130/78 Code : 8480-6 BMI: 30.0 Code : 43579-1 Heart Rate 1 : 85 bpm Height: 5'4" SpO2: 96% Weight: 175 lbs 02/23/2016 Blood Pressure 1: 140/78 Code : 8480-6 BMI: 29.7 Code : 07420-4 Heart Rate 1 : 74 bpm Height: 5'4" SpO2: 95% Weight: 173 lbs 09/15/2015 Blood Pressure 1: 140/88 Code : 8480-6 BMI: 29.4 Code : 96985-9 Heart Rate 1 : 81 bpm Height: 5'4" SpO2: 97% Weight: 171 lbs 8 oz 05/26/2015 Blood Pressure 1: 150/80 Code : 8480-6 BMI: 31.6 Code : 12093-2 Heart Rate 1 : 70 bpm Height: 5'4" SpO2: 96% Weight: 184 lbs 04/09/2015 Blood Pressure 1: 136/74 Code : 8480-6 BMI: 31.4 Code : 95626-7 Heart Rate 1 : 91 bpm Height: 5'4" SpO2: 94% Weight: 183 lbs 03/30/2015 Blood Pressure 1: 130/72 Code : 8480-6 BMI: 30.9 Code : 63141-6 Heart Rate 1 : 80 bpm Height: 5'4" SpO2: 97% Waist Measure (cm): 102 cm Weight: 180 lbs 03/10/2015 Blood Pressure 1: 152/80 Code : 8480-6 BMI: 31.1 Code : 16856-5 Heart Rate 1 : 66 bpm Height: 5'4" SpO2: 98% Weight: 181 lbs 12/16/2014 Blood Pressure 1: 132/88 Code : 8480-6 Blood Pressure 1: 132/88 Code: 8480-6 Heart Rate 1: 88 bpm SpO2: 98% Weight: 183 lbs 12/09/2014 Blood Pressure 1: 140/82 Code : 8480-6 BMI: 31.2 Code : 95060-5 Heart Rate 1 : 105 bpm Height: 5'4" SpO2: 93% Weight: 182 lbs 11/13/2014 Blood Pressure 1: 148/88 Code : 8480-6 BMI: 31.8 Code : 93576-9 Heart Rate 1 : 54 bpm Height: 5'4" SpO2: 98% Weight: 185 lbs 07/10/2014 Blood Pressure 1: 144/96 Code : 8480-6 BMI: 31.4 Code : 67861-8 Heart Rate 1 : 99 bpm Height: [...] data Encounters Encounter Performer Location Codes Date ([id number]) [id number] EST. 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 PATIENT, LEVEL III Diagnosis: Otalgia, left ear[ICD10: H92.02] Diagnosis: Essential (primary) hypertension[ICD10: I10] Elizabet Falk MD, [facility] CPT-4: 07441 10/17/2017 [id number]) 00060 EST. 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 PATIENT, LEVEL IV Diagnosis: Atrophy of thyroid (acquired)[ICD10: E03.4] Diagnosis: Pleurisy[ICD10: R09.1] Diagnosis: Essential (primary) hypertension[ICD10: I10] Shannon Falk MD, [facility] CPT-4: 71649 08/30/2016 ([id number]) 35319 EST. PATIENT, LEVEL III Diagnosis: Pleurisy[ICD10: R09.1] Elizabet Falk MD, [facility] CPT-4: 21346 08/08/2016 [id number] EST. PATIENT, LEVEL III Diagnosis: Dysuria[ICD10: R30.0] Diagnosis: Other pruritus[ICD10: L29.8] Shila Falk MD, [facility] CPT-4 : 05211 06/27/2016 ([id number]) 29236 EST. PATIENT, LEVEL III Diagnosis: Pain in left foot[ICD10: M79.672] Diagnosis: Pain in left toe(s)[ICD10: M79.675] Elizabet Falk MD, [facility] CPT-4: 28266 05/23/2016 28586 EST. PATIENT, LEVEL III Diagnosis: Candidiasis of vulva and vagina[ICD10: B37.3] Diagnosis: Dysuria[ICD10: R30.0] Shila Falk MD, [facility] CPT-4: 06696 04/18/2016 [id number] EST. PATIENT, LEVEL III Diagnosis: Other pruritus[ICD10: L29.8] Diagnosis: Candidiasis of vulva and vagina[ICD10: B37.3] Shila Falk MD, [facility] CPT-4: 56302 03/07/2016 ([id number]) [id number] EST. 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 PATIENT, LEVEL IV Diagnosis: Essential (primary) hypertension[ICD10: I10] Diagnosis: Mixed hyperlipidemia[ICD10: E78.2] Diagnosis: Major depressive disorder, single episode, unspecified[ICD10: F32.9] Shannon Falk MD, [facility] CPT-4: 63613 09/15/2015 [id number] EST. PATIENT, LEVEL III Diagnosis: Rash and other nonspecific skin eruption[ICD10: R21] Shila Falk MD, [facility] CPT-4: 73702 05/26/2015 ([id number]) 98240 EST. PATIENT, LEVEL IV Diagnosis: Essential (primary) hypertension[ICD10: I10] Diagnosis: Foot drop, left foot[ICD10: M21.372] Diagnosis: Sacroiliitis, not elsewhere classified[ICD10: M46.1] Shannon Falk MD, [facility] CPT-4: 15883 04/09/2015 ([id number]) 27566 EST. 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 PATIENT, LEVEL III Diagnosis: Trochanteric bursitis, left hip[ICD10: M70.62] Diagnosis: Iliotibial band syndrome, left leg[ICD10: M76.32] Diagnosis: Sciatica, left side[ICD10: M54.32] Elizabet Falk MD, [facility] CPT-4: 43676 12/16/2014 [id number]) 85117 EST. PATIENT, LEVEL III Diagnosis: Sciatica, left side[ICD10: M54.32] Diagnosis: Sacroiliitis, not elsewhere classified[ICD10: M46.1] Elizabet Falk MD, [facility] CPT-4: 51693 12/09/2014 ([id number]) 18731 EST. 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] Diagnosis: Carpal tunnel syndrome, unspecified upper limb[ICD10: G56.00] [facility] CPT-4: 43714 11/13/2014 ([id number]) OFFICE VISIT, NEW - LEVEL 4 Diagnosis: ESSENTIAL HYPERTENSION[ICD9: 401.9] Diagnosis: HYPERLIPIDEMIA[ICD9: 272.4] Diagnosis: DEPRESSIVE DISORDER NEC[ICD9: 311] Diagnosis: Diarrhea[ICD9: 787.91] [facility] CPT-4: 85977 07/10/2014 Plan of Care Planned Activity Notes Codes Status Date Patient Education: Patient Medication Summary Completed 02/01/2018 Care Plan: Unilateral DIAGNOSTICMAMMOGRAPHYDIGITAL LOINC : 41170-0 Pending 02/01/2018 [phone] (15 min) Moderate 01/22/2018 Patient Education: Patient [...] care surrogate. 01/02/2018 Appointment: [phone] [facility] [facility] - Annual Wellness Visit 01/02/2018 Patient Education: [...] of control. 12/26/2017 App[facility]ment: [phone] [facility] (15 min) Moderate 12/26/2017 Patient Education: [...] of plan. 10/17/2017 Appointment: [facility] Donaldson [facility] [phone] [facility] [place] (15 min) Moderate 10/17/2017 Patient Education: Patient [...] at home. 09/27/2017 Appointment: [phone] [facility] [place] (15 min) Moderate 09/27/2017 Patient Education: Patient Medication Summary Completed 09/27/2017 Care Plan: Referral Order SNOMED-CT : [id number] Pending 09/27/2017 App[facility]ment: [phone] [facility] [place] (15 min) Moderate 09/21/2017 Appointment: [...] daily. 03/24/2017 Appointment: Shannon Falk WPtel: [phone] [facility] (15 min) Moderate 03/24/2017 Patient Education: Patient Medication Summary Completed 03/24/2017 Appointment: Shannon Falk WPtel: [phone] [facility] [place] (15 min) Moderate 03/16/2017 Appointment: Shannon Falk WPtel: [phone] [facility] [place] (15 min) Moderate 03/01/2017 Visit Plan: Hypertension [...] supportive care. 08/30/2016 Appointment: Shannon Falk WPtel: [phone] [facility] (15 min) Moderate 08/30/2016 Patient Education: Patient [...] of plan. 08/08/2016 Appointment: Elizabet Donaldson WPtel: [phone] [facility] [place] (30 min) Complex 08/08/2016 Patient Education: Patient Medication Summary Completed 08/08/2016 Ref[facility]: [phone] [facility] Referral Initiated 08/01/2016 Visit Plan: Vaginal yeast [...] will refer. 06/27/2016 Appointment: [facility] Deluna [facility] [phone] [facility] (30 min) Complex 06/27/2016 Patient Education: Patient Medication Summary Completed 06/27/2016 Care Plan: Referral Order SNOMED-CT : [id number] Pending 06/27/2016 Visit Plan: Left foot, 1st and 2nd toe pain-suspect fracture of left great toe-will obtain xrays and proceed as indicated. Patient verbalized understanding of plan. 05/23/2016 Appointment: El[facility]ab[facility] Donaldson [facility]Ptel[facility] [phone] [facility] (15 min) Moderate 05/23/2016 Patient Education: Patient [...] start probiotics 02/23/2016 Appointment: Shannon Falk WPtel: [phone] [facility] (15 min) Moderate 02/23/2016 Patient Education: Patient [...] Summary Completed 09/15/2015 App[facility]ment: [phone] [facility] (15 min) Moderate 07/29/2015 Visit Plan: Rash [...] - vitamin B12 liquid 2000mcg daily - [facility] sells the liquid b12, folic acid - take daily. metanex 1 capsule twice daily - call office if this seems to help decrease nerve pain increase the night-time dosing of gabapentin to 300mg in AM, Noon, 6pm and 10pm 04/09/2015 Appointment: Shannon Falk WPtel[facility] (15 min) Moderate 04/09/2015 Patient Education: Patient [...] in 2012. 03/10/2015 Appointment: [phone] [facility] (15 min) Moderate 03/10/2015 Patient Education: Patient Medication Summary Completed 03/10/2015 Care Plan: SCREENINGMAMMOGRAPHYDIGITAL [facility] : 27768-8 Ordered 03/10/2015 Care Plan: Referral Order SNOMED-CT : [id number] Ordered 03/10/2015 Care Plan: Referral Order SNOMED-CT : [id number] Ordered 03/10/2015 Visit Plan: Left hip bursitis/Iliotibial [...] Medication Summary Completed 12/16/2014 Patient Education: .[employer] lliotibial Band Rehabilitation exercises Completed 12/16/2014 Patient Education: .[employer] Exercise for Sciatica Completed 12/16/2014 Care Plan: Referral Order SNOMED-CT : [id number] Ordered 12/16/2014 Visit Plan: Sacroiliitis - back [...] tunnel brace. 11/13/2014 Appointment: Shannon Falk WPtel: [phone] [facility] Follow up 11/13/2014 Patient Education: Patient Medication [...] stomach pain. ALIGN PROBIOTIC - TAKE DAILY ([employer] OR [employer] [facility] -TWO OTHER PROBIOTICS THAT ARE HIGH QUALITY) CIPROFLOXACIN TO BE TAKEN IF NEEDED IF THE DIARRHEA DOES NOT IMPROVE OR IF IT WORSENS. 07/10/2014 Appointment: [facility]el[facility] [phone] [facility] [place] ([place] New Patient 07/10/2014 Patient Education: Patient Medication Summary Completed 07/10/2014 Patient Education: Hypertension Completed 07/10/2014 Referral: Darci Spann Referral Relationship Referral: External, Ordering Provider Referral Appointment Requested Referral: External, Ordering Provider 09/28 Referral info faxed to [facility] 10/03 They tried calling her with an appt and she did not answer. Called patient and she will call them back. Appointment Requested Referral: External, Ordering Provider Referral Appointment Requested Referral: Delia Bernstein WPtel: [facility] Referral Initiated Referral: External, Ordering Provider Referral [...] her [employer] paperwork for health care surrogate. XRAY LEFT FOOT AND TOES . Left [...] and to maintain independece in the home. . Vaginal yeast infection - Discussed natural [...] control. Pleurisy - continue with supportive care. Will give steroid shot today, will send [...] if they worsen, or with any concerns. Will give steroid shot today, will send [...] if they worsen, or with any concerns. . Lumbar degenerative arthritis - RX for [...] Maria Ines recommended repeat scope in 2012. XRAY LUMBAR SPINE AND SI JOINT SCIATICA [...] is finished, refill the 10mg pill at [facility]. carpal tunnel brace . Hypertension - uncontrolled [...] herself. Increase the celebrex to twice daily. increase celebrex to twice daily . Hypertension [...] herself. Increase the celebrex to twice daily. luanne vega - look up on facebook . Hypertension - well controlled - continue [...] months based on previous levels of control. vitamin B12 liquid 2000mcg daily - [facility] sells the liquid b12 folic acid - [...] - vitamin B12 liquid 2000mcg daily - [facility] sells the liquid b12, folic acid - take daily. metanex 1 capsule twice daily - call office if this seems to help decrease nerve pain increase the night-time dosing of gabapentin to 300mg in AM, Noon, 6pm and 10pm MONITOR BLOOD PRESSURE AND PULSE -BRING READINGS [...] control. Diarrhea - functional - start probiotics dr. gely duncan - bone and joint [...] change in blood pressure readings at home. Nasal spray- use twice daily, one spray per nostril twice daily, after 30 minutes, rinse out nose with saline spray.. Use opposite hand per nostril to spray in the nasal steroid allergy spray. ALIGN PROBIOTIC - TAKE DAILY ([employer] OR [employer] -TWO OTHER PROBIOTICS THAT ARE HIGH QUALITY) [...] stomach pain. ALIGN PROBIOTIC - TAKE DAILY ([employer] OR [employer] -TWO OTHER PROBIOTICS THAT ARE HIGH QUALITY) CIPROFLOXACIN TO BE TAKEN IF NEEDED IF THE DIARRHEA DOES NOT IMPROVE OR IF IT WORSENS.
--- OUTSIDE RECORDS SUMMARY | 2018-03-17 11:19 | XMS REPORT | CCD ---
Author Author [facility] Organization [facility] Address [address] [place] [address] Phone Care Team Providers Care Chemical Analytical Sampler Name Role Phone PP Unavailable CCM Unavailable Summary Purpose Interface Exchange Insurance Providers Payer name Policy type / Coverage type Covered green party ID Effective Begin Date Effective End Date WPS Medicare Part B Medicare Part B [id number] Unknown [place] [employer] Medicare Part B [id number] Unknown Family history Brother Diagnosis Age At [...] Unknown 2 07/10/[address]: [id number] Has never smoked or chewed tobacco 07/10/2014 Alcohol history Unknown occasionally drinks alcohol 07/10/2014 Allergies, Adverse Reactions, Alerts Substance Reaction Codes Entered Date Inactivated Date Status Remicade hives RxNorm: 030751 03/24/2017 No Inactive Date Active * NO KNOWN FOOD ALLERGIES Unknown 07/10/2014 No Inactive Date Active SULFA(SULFONAMIDE ANTIBIOTICS) Unknown 07/10/2014 No Inactive Date Active Past Medical History Illness Codes Condition Status Onset Date Resolved Date Encounter for screening mammogram for malignant neoplasm [...] : 714.0 ICD-10: M05.742 Active 03/24/2017 Unknown 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 ICD-9 : 714.0 ICD-10: M05.741 Active 03/24/2017 Unknown Otalgia, left ear ICD- [...] Problems Condition Codes Effective Dates Condition Status Encounter for screening mammogram for malignant neoplasm [...] ICD-9 : 714.0 ICD-10: M05.742 03/24/2017 Active 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 ICD-9 : 714.0 ICD-10: M05.741 03/24/2017 Active Otalgia, left ear ICD- 9: [...] hydrocodone 7.5 mg-acetaminophen 325 mg tablet RxNorm: 446125 1-2 Tablet(s) PO Q4H as needed 10/12/2017 10/26/2017 Inactive Synthroid 75 mcg tablet RxNorm: 310233 Tablet(s) TAKE 1 TABLET BY MOUTH DAILY 08/09/2017 03/06/2018 Active Generic For:*SYNTHROID 0.075MG TAB 11/14/2016 9:16: 33 AM N O T I C E Last quantity doesn't match original quantity hydrocodone 7.5 mg-acetaminophen 325 mg tablet RxNorm: 718363 1-2 Tablet(s) PO Q4H as needed 05/22/2017 06/20/2017 Inactive citalopram 20 mg tablet RxNorm: 200999 Tablet(s) TAKE ONE (1) TABLET BY MOUTH DAILY 05/09/2017 05/03/2018 Active amlodipine 10 mg tablet RxNorm: 495918 1 Tablet(s) PO daily 1 Tablet(s) PO daily 05/09/2017 09/26/2017 Inactive losartan 100 mg tablet RxNorm: 787630 1 Tablet(s) PO daily TAKE 1 TABLET BY MOUTH DAILY 05/09/2017 01/01/2018 Inactive Celebrex 200 mg capsule RxNorm: 044486 1 Capsule(s) PO BID 03/201703/18/2018 Active gabapentin 300 mg capsule RxNorm: 715917 1 Capsule(s) PO daily 03/24/2017 No Stop Date Active Celebrex 200 mg capsule RxNorm: 488560 1 Capsule(s) PO BID 1 Capsule(s) PO daily 03/24/2017 03/23/2017 Inactive amlodipine 10 mg tablet RxNorm: 562229 1 Tablet(s) PO daily 1 Tablet(s) PO daily 03/24/2017 05/08/2017 Inactive Lipitor 40 mg tablet RxNorm: 228287 Tablet(s) TAKE ONE TABLET BY MOUTH AT BEDTIME 02/14/2017 09/26/2017 Inactive hydrocodone 7.5 mg-acetaminophen 325 mg tablet RxNorm: 818789 1-2 Tablet(s) PO Q4H as needed 01/16/2017 02/14/2017 Inactive scopolamine 1.5 mg transdermal patch (1 mg over 3 days) RxNorm: 994437 1 Patch TD Q72H 11/25/2016 12/04/2016 Inactive scopolamine 1.5 mg transdermal patch (1 mg over 3 days) RxNorm: 849049 1 Patch TD Q72H 11/25/2016 11/24/2016 Inactive losartan 100 mg tablet RxNorm: 004638 1 Tablet(s) PO daily TAKE 1 TABLET BY MOUTH DAILY 11/14/2016 05/08/2017 Inactive Generic For:COZAAR 100MG TAB 05/17/2016 8:31: 51 AM Synthroid 75 mcg tablet RxNorm: 959001 TAKE 1 TABLET BY MOUTH DAILY 11/14/2016 06/11/2017 Inactive Generic For:*SYNTHROID 0.075MG TAB 11/14/2016 9:16:33 AM N O T I C E Last quantity doesn't match original quantity citalopram 20 mg tablet RxNorm: 113009 TAKE ONE (1) TABLET BY MOUTH DAILY 11/14/2016 05/08/2017 Inactive Generic For:CELEXA 20MG TAB 11/14/2016 8:30:49 AM N O T I C E Last quantity doesn't match original quantity prednisone 10 mg tablets in a dose pack RxNorm: 179591 1 Tablet(s) PO UD 09/30/2016 10/05/2016 Inactive 6-5-4-3-2-1 hydrocodone 7.5 mg-acetaminophen 325 mg tablet RxNorm: 057314 1-2 Tablet(s) PO Q4H as needed 09/20/2016 01/15/2017 Inactive amlodipine 5 mg tablet RxNorm: 502050 TAKE ONE TABLET BY MOUTH EVERY DAY 08/15/2016 03/23/2017 Inactive Generic For:NORVASC 5 MG TABLET 08/15/2016 3:56:26 PM N O T I C E Last quantity doesn't match original quantity Kenalog 40 mg/mL suspension for injection RxNorm: 1615483 1 Milliliter(s) Inj 08/08/2016 08/08/2016 Inactive prednisone 10 mg tablets in a dose pack RxNorm: 496182 1 Tablet(s) PO UD 08/08/2016 08/07/2016 Inactive prednisone 10 mg tablets in a dose pack RxNorm: 373033 1 Tablet(s) PO UD 08/08/2016 08/13/2016 Inactive 6-5-4-3-2-1 Diflucan 150 mg tablet RxNorm: 026835 1 Tablet(s) PO daily 09/201607/10/2016 Inactive Synthroid 75 mcg tablet RxNorm: 486715 TAKE 1 TABLET BY MOUTH DAILY 06/16/2016 11/13/2016 Inactive Generic For:*SYNTHROID 0.075MG TAB pt would like a 90 day supply N O T I C E Last quantity doesn't match original quantity hydrocodone 7.5 mg-acetaminophen 325 mg tablet RxNorm: 199724 1-2 Tablet(s) PO Q4H as needed 06/06/2016 09/19/2016 Inactive citalopram 20 mg tablet RxNorm: 452900 TAKE ONE (1) TABLET BY MOUTH DAILY 05/18/2016 11/13/2016 Inactive Generic For:CELEXA 20MG TAB 05/17/2016 8:32:02 AM Celebrex 200 mg capsule RxNorm: 132235 1 Capsule(s) PO daily 03/23/2017 Inactive losartan 100 mg tablet RxNorm: 308036 TAKE 1 TABLET BY MOUTH DAILY 05/17/2016 11/12/2016 Inactive Generic For:COZAAR 100MG TAB 05/17/2016 8:31:51 AM amlodipine 5 mg tablet RxNorm: 911254 1 Tablet(s) PO daily 08/14/2016 Inactive Cipro 500 mg tablet RxNorm: 898764 1 Tablet(s) PO BID 201605/03/2016 Inactive Cipro 500 mg tablet RxNorm: 207006 1 Tablet(s) PO BID 201605/13/2016 Inactive Diflucan 150 mg tablet RxNorm: 221970 1 Tablet(s) PO daily 05/01/2016 Inactive Monistat Soothing Care 1.2 % topical gel RxNorm: 9006403 1 Application TOP BID 03/07/2016 01/01/2018 Inactive Diflucan 150 mg tablet RxNorm: 197044 1 Tablet(s) PO daily 03/13/2016 Inactive Lipitor 40 mg tablet RxNorm: 068546 Tablet(s) TAKE ONE TABLET BY MOUTH AT BEDTIME 02/23/2016 02/13/2017 Inactive citalopram 20 mg tablet RxNorm: 153985 TAKE ONE (1) TABLET BY MOUTH DAILY 02/18/2016 05/17/2016 Inactive Generic For:CELEXA 20MG TAB refill request losartan 100 mg tablet RxNorm: 934184 Tablet(s) 1 Tablet, 1 time per Day 02/09/2016 05/16/2016 Inactive INSURANCE WILL NOT COVER ADELA ANDREWS UNTIL OTHER FORMULARIES HAVE BEEN TRIED AND FAILED hydrocodone 7.5 mg-acetaminophen 325 mg tablet RxNorm: 820346 1-2 Tablet(s) PO Q4H as needed 02/03/2016 06/05/2016 Inactive Synthroid 75 mcg tablet RxNorm: 116488 Tablet(s) TAKE 1 TABLET BY MOUTH DAILY 01/19/2016 06/15/2016 Inactive Generic For:*SYNTHROID 0.075MG TAB 09/22/2014 10:00 :02 AM N O T I C E PRESCRIPTION PREVIOUSLY AUTHORIZED BY DOCTOR:SWATI BEY prednisone 10 mg tablets in a dose pack RxNorm: 878094 1 Tablet(s) PO UD 01/07/2016 02/22/2016 Inactive 6-5-4-3-2-1 amlodipine 10 mg tablet RxNorm: 140723 1 Tablet(s) PO daily 11/30/2016 Inactive citalopram 20 mg tablet RxNorm: 269420 TAKE ONE (1) TABLET BY MOUTH DAILY 11/17/2015 02/14/2016 Inactive Generic For:CELEXA 20MG TAB refill request hydrocodone 7.5 mg-acetaminophen 325 mg tablet RxNorm: 913476 1-2 Tablet(s) PO Q4H as needed 10/08/2015 02/02/2016 Inactive losartan 100 mg tablet RxNorm: 920115 Tablet(s) 1 Tablet, 1 time per Day 2015 02/07/2016 Inactive INSURANCE WILL NOT COVER ADELA ANDREWS UNTIL OTHER FORMULARIES HAVE BEEN TRIED AND FAILED citalopram 20 mg tablet RxNorm: 321658 TAKE ONE (1) TABLET BY MOUTH DAILY 08/10/2015 11/07/2015 Inactive Generic For:CELEXA 20MG TAB 08/10/2015 8:59:58 AM Synthroid 75 mcg tablet RxNorm: 504490 Tablet(s) TAKE 1 TABLET BY MOUTH DAILY 05/26/2015 12/21/2015 Inactive Generic For:*SYNTHROID 0.075MG TAB 09/22/2014 10:00 :02 AM N O T I C E PRESCRIPTION PREVIOUSLY AUTHORIZED BY DOCTOR:SWATI BEY prednisone 20 mg tablet RxNorm: 610140 2 Tablet(s) PO daily 06/201505/30/2015 Inactive Lipitor 40 mg tablet RxNorm: 251681 TAKE ONE TABLET BY MOUTH AT BEDTIME 05/14/2015 02/07/2016 Inactive Generic For:LIPITOR 40MG TAB 05/13/2015 8:26:33 AM N O T I C E PRESCRIPTION PREVIOUSLY AUTHORIZED BY DOCTOR:SWATI BEY [phone] hydrocodone 7.5 mg-acetaminophen 325 mg tablet RxNorm: 057972 1-2 Tablet(s) PO Q4H as needed 05/11/2015 10/07/2015 Inactive Celebrex 200 mg capsule RxNorm: 297010 1 Capsule(s) PO daily 04/30/2016 Inactive citalopram 20 mg tablet RxNorm: 344168 TAKE ONE (1) TABLET BY MOUTH DAILY 04/27/2015 07/25/2015 Inactive Generic For:CELEXA 20MG TAB 04/26/2015 7:30:08 PM gabapentin 300 mg capsule RxNorm: 353323 1 Capsule(s) PO QID 04/02/2016 Inactive citalopram 20 mg tablet RxNorm: 155504 TAKE ONE (1) TABLET BY MOUTH DAILY 01/26/2015 04/25/2015 Inactive Generic For:CELEXA 20MG TAB 01/26/2015 8:40:11 AM losartan 100 mg tablet RxNorm: 573838 1 Tablet, 1 time per Day 01/26/2015 03/29/2015 Inactive INSURANCE WILL NOT COVER ADELA ANDREWS UNTIL OTHER FORMULARIES HAVE BEEN TRIED AND FAILED hydrocodone 7.5 mg-acetaminophen 325 mg tablet RxNorm: 376257 1-2 Tablet(s) PO Q4H as needed 01/23/2015 05/10/2015 Inactive Neurontin 100 mg capsule RxNorm: 854363 1 Capsule(s) PO TID 03/09/2015 Inactive Neurontin 100 mg capsule RxNorm: 309307 1 Capsule(s) PO TID 01/13/2015 Inactive Keflex 500 mg capsule RxNorm: 435743 1 Capsule(s) PO TID 201401/05/2015 Inactive Keflex 500 mg capsule RxNorm: 444464 1 Capsule(s) PO TID 201401/12/2015 Inactive hydrocodone 7.5 mg-acetaminophen 325 mg tablet RxNorm: 500968 1-2 Tablet(s) PO Q4H as needed 12/29/2014 01/22/2015 Inactive Duexis 800 mg-26.6 mg tablet RxNorm: 7862656 1 Tablet(s) PO TID as needed 12/19/2014 03/29/2015 Inactive Duexis 800 mg-26.6 mg tablet RxNorm: 5552483 1 Tablet(s) PO TID as needed 12/19/2014 12/18/2014 Inactive Kenalog 40 mg/mL suspension for injection RxNorm: 9766889 1 Milliliter(s) Inj 12/09/2014 12/09/2014 Inactive prednisone 10 mg tablets in a dose pack RxNorm: 648627 1 Tablet(s) PO UD 12/09/2014 12/14/2014 Inactive 6-5-4-3-2-1 amlodipine 10 mg tablet RxNorm: 880541 1 Tablet(s) PO daily 11/07/2015 Inactive citalopram 20 mg tablet RxNorm: 428082 TAKE ONE (1) TABLET BY MOUTH DAILY 10/23/2014 01/20/2015 Inactive Generic For:CELEXA 20MG TAB 10/23/2014 4:32:02 PM N O T I C E PRESCRIPTION PREVIOUSLY AUTHORIZED BY DOCTOR:SWATI BEY hydrocodone 7.5 mg-acetaminophen 325 mg tablet RxNorm: 201803 1-2 Tablet(s) PO Q4H as needed 10/22/2014 12/28/2014 Inactive Synthroid 75 mcg tablet RxNorm: 073856 TAKE 1 TABLET BY MOUTH DAILY 09/22/2014 04/19/2015 Inactive Generic For:*SYNTHROID 0.075MG TAB 09/22/2014 10:00:02 AM N O T I C E PRESCRIPTION PREVIOUSLY AUTHORIZED BY DOCTOR:SWATI BEY amlodipine 5 mg tablet RxNorm: 262044 1 Tablet(s) PO daily 07/201411/12/2014 Inactive Synthroid 75 mcg tablet RxNorm: 275837 1 Tablet(s) PO daily ecept a 1/2 tab on Monday07/11/2014 09/21/2014 Inactive Flonase Allergy Relief 50 mcg/actuation nasal spray, suspension RxNorm: 1 [place] NASAL BID 07/10/2014 12/06/2014 Inactive Aldactone 25 mg tablet RxNorm: 147313 1 Tablet(s) PO daily No Start Date Active Benicar 20 mg tablet RxNorm: 794434 1 Tablet(s) PO daily No Start Date Active chlorthalidone 25 mg tablet RxNorm: 414797 1 Tablet(s) PO daily No Start Date Active methotrexate sodium 2.5 mg tablet RxNorm: 604078 3 Tablet(s) PO weekly No Start Date 04/08/2015 Inactive gabapentin 300 mg capsule RxNorm: 969113 1 Capsule(s) PO TID No Start Date 04/08/2015 Inactive Plaquenil 200 mg tablet RxNorm: 342471 1 Tablet(s) PO BID No Start Date 05/22/2016 Inactive losartan 100 mg tablet RxNorm: 654401 1 Tablet(s) PO daily No Start Date 01/25/2015 Inactive Remicade intravenous RxNorm: 545012 intravenous No Start Date 03/23/2017 Inactive amlodipine 5 mg tablet RxNorm: 531816 1 Tablet(s) PO daily No Start Date 08/24/2014 Inactive Celebrex 200 mg capsule RxNorm: 883685 1 Capsule(s) PO daily No Start Date 10/16/2017 Inactive citalopram 20 mg tablet RxNorm: 152781 1 Tablet(s) PO daily No Start Date 10/22/2014 Inactive Synthroid 88 mcg tablet RxNorm: 834080 1 Tablet(s) PO daily No Start Date 07/09/2014 Inactive Arava 20 mg tablet RxNorm: 711642 1 Tablet(s) PO daily No Start Date 01/01/2018 Inactive Lipitor 40 mg tablet RxNorm: 995702 1 Tablet(s) PO daily No Start Date 05/13/2015 Inactive Synthroid 75 mcg tablet RxNorm: 060445 1 Tablet(s) PO daily No Start Date 07/10/2014 Inactive hydrocodone 7.5 mg-acetaminophen 325 mg tablet RxNorm: 098564 Tablet(s) PO as needed No Start Date 10/21/2014 Inactive Medication Administered Medication Codes Instructions Start Date Status Kenalog 40 mg/mL suspension for injection RxNorm: 4008900 1Milliliter 08/08/2016 No longer Active Kenalog 40 mg/mL suspension for injection RxNorm: 6863562 1Milliliter 12/09/2014 No longer Active Immunizations No Immunization data Assessments Condition Codes Effective Dates Encounter for screening mammogram for malignant neoplasm [...] 12.6 g/dl 12/26/2017 Cbc With Differential Ord2 Neut% 69.0 % 12/26/2017 Cbc With Differential Ord2 HCT 37.1 % 12/26/2017 Cbc With Differential Ord2 MCV 91.6 fl 12/26/2017 Cbc With Differential Ord2 Lymph% 19.6 % 12/26/2017 Cbc With Differential Ord2 MCH 31.1 pg 12/26/2017 Cbc With Differential Ord2 [place]% 9.2 % 12/26/2017 Cbc With Differential Ord2 [...] 1.53 K/ul 12/26/2017 Cbc With Differential Ord2 [place] ABS# 0.7 K/ul 12/26/2017 Cbc With Differential Ord2 Eos ABS# 0.1 K/ul 12/26/2017 Cbc With Differential Ord2 Baso ABS# 0.0 K/ul 12/26/2017 Free T4 Sop406 FREE T4 0.93 ng/dL 12/26/2017 Comp Metabolic Iqt425 NA 135 mEq/L 12/26/2017 Comp Metabolic Jap633 K 4.4 mEq/L 12/26/2017 Comp Metabolic Eqz822 CL 98 mEq/L 12/26/2017 Comp Metabolic Vcm249 CO2 28.0 mEq/L 12/26/2017 Comp Metabolic Wap450 ANION GAP 13 12/26/2017 Comp Metabolic Ugk494 GLUCOSE 92 mg/dL 12/26/2017 Comp Metabolic Aom906 Creat 1.1 mg/dL 12/26/2017 Comp Metabolic Tka851 eGFR 52 ml/min/1.73m2 12/26/2017 Comp Metabolic Wgt793 BUN 25 mg/dL 12/26/2017 Comp Metabolic Lbd017 B/C Ratio 22.7 Ratio 12/26/2017 Comp Metabolic Fae704 CALCIUM 9.8 mg/dL 12/26/2017 Comp Metabolic Fny467 ALK PHOS 91 U/L 12/26/2017 Comp Metabolic Ipm374 AST(SGOT) 16 U/L 12/26/2017 Comp Metabolic Qxs704 ALT(SGPT) 12 U/L 12/26/2017 Comp Metabolic Fco891 BILI T 0.5 mg/dL 12/26/2017 Comp Metabolic Gpi049 ALBUMIN 4.3 g/dL 12/26/2017 Comp Metabolic Kzs091 TPRO 6.8 g/dL 12/26/2017 Comp Metabolic Kzp796 GLOB 2.5 g/dL 12/26/2017 Comp Metabolic Ygc573 A/G Ratio 1.7 Ratio 12/26/2017 Comp Metabolic Ver765 Osmo 274 mOsmo 12/26/2017 Urine Culture Ucult Complete NO Growth Day 2 06/29/2016 Urine Culture Ucult Preliminary NO Growth Day 1 06/29/2016 Culture Urine [id number] URINE CULTURE SEE NOTES 04/22/2016 Culture Urine [id number] Continued Results 04/22/2016 Urine Culture Ucult Complete >100,000 col/ml aerobic growth sent to ref lab 04/20/2016 Comp Metabolic Bvl259 NA 137 mEq/L 02/10/2016 Comp Metabolic Jqi766 K 4.1 mEq/L 02/10/2016 Comp Metabolic Ppp543 CL 102 mEq/L 02/10/2016 Comp Metabolic Vdx089 CO2 28.0 mEq/L 02/10/2016 Comp Metabolic Ajg064 ANION GAP 11 02/10/2016 Comp Metabolic Izr236 GLUCOSE 104 mg/dL 02/10/2016 Comp Metabolic Hcr594 Creat 0.7 mg/dL 02/10/2016 Comp Metabolic Gya229 eGFR 83 ml/min/1.73m2 02/10/2016 Comp Metabolic Hta784 BUN 14 mg/dL 02/10/2016 Comp Metabolic Izt387 B/C Ratio 18.9 Ratio 02/10/2016 Comp Metabolic Qxy847 CALCIUM 9.7 mg/dL 02/10/2016 Comp Metabolic Fss297 ALK PHOS 121 U/L 02/10/2016 Comp Metabolic Vtj324 AST(SGOT) 19 U/L 02/10/2016 Comp Metabolic Zuv045 ALT(SGPT) 13 U/L 02/10/2016 Comp Metabolic Pkv319 BILI T 0.5 mg/dL 02/10/2016 Comp Metabolic Rye958 ALBUMIN 4.3 g/dL 02/10/2016 Comp Metabolic Erp709 TPRO 6.8 g/dL 02/10/2016 Comp Metabolic Wki342 GLOB 2.5 g/dL 02/10/2016 Comp Metabolic Xqe051 A/G Ratio 1.7 Ratio 02/10/2016 Comp Metabolic Pai241 Osmo 275 mOsmo 02/10/2016 Lipid Ord30 CHOL 229 mg/dL 02/10/2016 Lipid Ord30 HDL 59.0 mg/dl 02/10/2016 Lipid Ord30 TRIG 252 mg/dL 02/10/2016 Lipid Ord30 LDL 120 mg/dL 02/10/2016 Lipid Ord30 C/HDL 3.9 Ratio 02/10/2016 Free T4 Imc019 FREE T4 0.87 ng/dL 02/10/2016 Tsh Ord6 [...] 29.2 pg 02/10/2016 Cbc With Differential Ord2 [place]% 18.6 % 02/10/2016 Cbc With Differential Ord2 [...] 1.81 K/ul 02/10/2016 Cbc With Differential Ord2 [place] ABS# 1.1 K/ul 02/10/2016 Cbc With Differential Ord2 Eos ABS# 0.1 K/ul 02/10/2016 Cbc With Differential Ord2 Baso ABS# 0.1 K/ul 02/10/2016 Tsh Ord6 hTSH II 0.85 uIU/mL 04/02/2015 Lipid Ord30 CHOL 207 mg/dL 04/02/2015 Lipid Ord30 HDL 68.0 mg/dl 04/02/2015 Lipid Ord30 TRIG 193 mg/dL 04/02/2015 Lipid Ord30 LDL 100 mg/dL 04/02/2015 Lipid Ord30 C/HDL 3.0 Ratio 04/02/2015 Free T4 Dkl465 FREE T4 1.09 ng/dL 04/02/2015 Free T4 Pih873 FREE T4 0.82 ng/dL 10/15/2014 Tsh Ord6 [...] dentition 09/27/2017 None Full Exam - General 1995 Ears/Nose/Throat oral cavity/pharynx/larynx Overall: oral mucosa clear 09/27/2017 None Full Exam - General 1995 Ears/Nose/Throat oral cavity/pharynx/larynx Overall: oropharyngeal mucosa clear 09/27/2017 None Full Exam - General 1994 Ears/Nose/Throat oral cavity/pharynx/larynx Overall: hypopharynx benign 09/27/2017 None Full Exam - General 1995 Ears/Nose/Throat oral cavity/pharynx/larynx Overall: no masses 09/27/2017 [...] - General 1995 Musculoskeletal digits and nails PIPs: second 09/27/2017 None Full Exam - General 1995 Musculoskeletal digits and nails PIPs: third 09/27/2017 None Full Exam - General 1995 Musculoskeletal digits and nails PIPs: fourth 09/27/2017 None Full Exam - General 1995 Musculoskeletal digits and nails PIPs: fifth 09/27/2017 None Full Exam - General 1994 Musculoskeletal digits and nails PIPs: swelling 09/27/2017 None Full Exam - General 1995 Musculoskeletal digits and nails PIPs: deformity 09/27/2017 [...] first 03/24/2017 None Full Exam - General 1995 Musculoskeletal digits and nails DIPs: second 03/24/2017 None Full Exam - General 1995 Musculoskeletal digits and nails DIPs: third 03/24/2017 None Full Exam - General 1995 Musculoskeletal digits and nails DIPs: fourth 03/24/2017 [...] Code : 8480-6 BMI: 32.4 Code : 65837-2 Heart Rate 1 : 80 bpm Height: 5'4" SpO2: 99% Waist Measure (cm): 104 cm Weight: 189 lbs 12/26/2017 Blood Pressure 1: 138/72 Code : 8480-6 BMI: 31.4 Code : 33829-6 Heart Rate 1 : 72 bpm Height: 5'4" SpO2: 96% Weight: 183 lbs 10/17/2017 Blood Pressure 1: 156/72 Code : 8480-6 BMI: 31.4 Code : 71125-3 Heart Rate 1 : 81 bpm Height: 5'4" SpO2: 98% Temperature: 36.5 (C) / 97.7 (F) Weight: 183 lbs 09/27/2017 Blood Pressure 1: 140/82 Code : 8480-6 BMI: 32.1 Code : 33693-4 Heart Rate 1 : 82 bpm Height: 5'4" SpO2: 98% Weight: 187 lbs 07/31/2017 Blood Pressure 1: 138/82 Code : 8480-6 Heart Rate 1: 87 bpm SpO2: 99% 03/24/2017 Blood Pressure 1: 146/86 Code : 8480-6 BMI: 31.8 Code : 92082-8 Heart Rate 1 : 79 bpm Height: 5'4" SpO2: 96% Temperature: 36.4 (C) / 97.5 (F) Weight: 185 lbs 08/30/2016 Blood Pressure 1: 142/88 Code : 8480-6 BMI: 31.6 Code : 78971-3 Heart Rate 1 : 80 bpm Height: 5'4" SpO2: 93% Weight: 184 lbs 08/08/2016 Blood Pressure 1: 142/76 Code : 8480-6 BMI: 29.9 Code : 05185-0 Heart Rate 1 : 80 bpm Height: 5'4" SpO2: 94% Weight: 174 lbs 06/27/2016 Blood Pressure 1: 156/72 Code : 8480-6 BMI: 30.6 Code : 01910-5 Heart Rate 1 : 78 bpm Height: 5'4" SpO2: 95% Weight: 178 lbs 05/23/2016 Blood Pressure 1: 146/84 Code : 8480-6 Heart Rate 1: 66 bpm Height: 5'4" SpO2: 94% 04/18/2016 Blood Pressure 1: 148/84 Code : 8480-6 BMI: 30.2 Code : 22424-5 Heart Rate 1 : 81 bpm Height: 5'4" SpO2: 97% Weight: 176 lbs 03/07/2016 Blood Pressure 1: 130/78 Code : 8480-6 BMI: 30.0 Code : 00298-9 Heart Rate 1 : 85 bpm Height: 5'4" SpO2: 96% Weight: 175 lbs 02/23/2016 Blood Pressure 1: 140/78 Code : 8480-6 BMI: 29.7 Code : 85180-3 Heart Rate 1 : 74 bpm Height: 5'4" SpO2: 95% Weight: 173 lbs 09/15/2015 Blood Pressure 1: 140/88 Code : 8480-6 BMI: 29.4 Code : 68883-5 Heart Rate 1 : 81 bpm Height: 5'4" SpO2: 97% Weight: 171 lbs 8 oz 05/26/2015 Blood Pressure 1: 150/80 Code : 8480-6 BMI: 31.6 Code : 79717-5 Heart Rate 1 : 70 bpm Height: 5'4" SpO2: 96% Weight: 184 lbs 04/09/2015 Blood Pressure 1: 136/74 Code : 8480-6 BMI: 31.4 Code : 99369-1 Heart Rate 1 : 91 bpm Height: 5'4" SpO2: 94% Weight: 183 lbs 03/30/2015 Blood Pressure 1: 130/72 Code : 8480-6 BMI: 30.9 Code : 36436-3 Heart Rate 1 : 80 bpm Height: 5'4" SpO2: 97% Waist Measure (cm): 102 cm Weight: 180 lbs 03/10/2015 Blood Pressure 1: 152/80 Code : 8480-6 BMI: 31.1 Code : 13957-0 Heart Rate 1 : 66 bpm Height: 5'4" SpO2: 98% Weight: 181 lbs 12/16/2014 Blood Pressure 1: 132/88 Code : 8480-6 Blood Pressure 1: 132/88 Code: 8480-6 Heart Rate 1: 88 bpm SpO2: 98% Weight: 183 lbs 12/09/2014 Blood Pressure 1: 140/82 Code : 8480-6 BMI: 31.2 Code : 87981-6 Heart Rate 1 : 105 bpm Height: 5'4" SpO2: 93% Weight: 182 lbs 11/13/2014 Blood Pressure 1: 148/88 Code : 8480-6 BMI: 31.8 Code : 65312-9 Heart Rate 1 : 54 bpm Height: 5'4" SpO2: 98% Weight: 185 lbs 07/10/2014 Blood Pressure 1: 144/96 Code : 8480-6 BMI: 31.4 Code : 71098-7 Heart Rate 1 : 99 bpm Height: [...] and hydrocodone; Received an epidural injection on Dec. 19 sciatica Pertinent Findings Denies fever 04/09/2015 None [...] Directive data Encounters Encounter Performer Location Codes ([id number]) [id number] EST. 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 PATIENT, LEVEL III Diagnosis: Otalgia, left ear[ICD10: H92.02] Diagnosis: Essential (primary) hypertension[ICD10: I10] Elizabet Falk MD, [facility] CPT-4: 61491 10/17/2017 ([id number]) 92773 EST. 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 PATIENT, LEVEL IV Diagnosis: Atrophy of thyroid (acquired)[ICD10: E03.4] Diagnosis: Pleurisy[ICD10: R09.1] Diagnosis: Essential (primary) hypertension[ICD10: I10] Shannon Falk MD, [facility] CPT-4: 65976 08/30/2016 ([id number]) 75522 EST. PATIENT, LEVEL III Diagnosis: Pleurisy[ICD10: R09.1] Elizabet Falk MD, [facility] CPT-4: 80250 08/08/2016 [id number] EST. PATIENT, LEVEL III Diagnosis: Dysuria[ICD10: R30.0] Diagnosis: Other pruritus[ICD10: L29.8] Shila Falk MD, [facility] CPT-4 : 10626 06/27/2016 ([id number]) 60287 EST. PATIENT, LEVEL III Diagnosis: Pain in left foot[ICD10: M79.672] Diagnosis: Pain in left toe(s)[ICD10: M79.675] Elizabet Falk MD, [facility] CPT-4: 16314 05/23/2016 [id number] EST. PATIENT, LEVEL III Diagnosis: Candidiasis of vulva and vagina[ICD10: B37.3] Diagnosis: Dysuria[ICD10: R30.0] Shila Falk MD, [facility] CPT-4: 20295 04/18/2016 [id number] EST. PATIENT, LEVEL III Diagnosis: Other pruritus[ICD10: L29.8] Diagnosis: Candidiasis of vulva and vagina[ICD10: B37.3] Shila Falk MD, [facility] CPT-4: 07818 03/07/2016 ([id number]) 15776 EST. PATIENT, LEVEL IV Diagnosis: Essential (primary) hypertension[ICD10: I10] Diagnosis: Pain in left hip[ICD10: M25.552] Diagnosis: Pain in right hip[ICD10: M25.551] Diagnosis: Functional diarrhea[ICD10: K59.1] Diagnosis: Atrophy of thyroid (acquired)[ICD10: E03.4] Shannon Falk MD, [facility] CPT-4: 01423 02/23/2016 ([id number]) 19722 EST. PATIENT, LEVEL IV Diagnosis: Essential (primary) hypertension[ICD10: I10] Diagnosis: Mixed hyperlipidemia[ICD10: E78.2] Diagnosis: Major depressive disorder, single episode, unspecified[ICD10: F32.9] Shannon Falk MD, [facility] CPT-4: 46666 09/15/2015 01033 EST. PATIENT, LEVEL III Diagnosis: Rash and other nonspecific skin eruption[ICD10: R21] Shila Falk MD, [facility] CPT-4: 47701 05/26/2015 ([id number] [phone] EST. PATIENT, LEVEL IV Diagnosis: Essential (primary) hypertension[ICD10: I10] Diagnosis: Foot drop, left foot[ICD10: M21.372] Diagnosis: Sacroiliitis, not elsewhere classified[ICD10: M46.1] Shannon Falk MD, [facility] CPT-4: 30853 04/09/2015 ([id number]) 51433 EST. 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 PATIENT, LEVEL III Diagnosis: Trochanteric bursitis, left hip[ICD10: M70.62] Diagnosis: Iliotibial band syndrome, left leg[ICD10: M76.32] Diagnosis: Sciatica, left side[ICD10: M54.32] Elizabet Falk MD, [facility] CPT-4: 77745 12/16/2014 ([id number]) 08412 EST. PATIENT, LEVEL III Diagnosis: Sciatica, left side[ICD10: M54.32] Diagnosis: Sacroiliitis, not elsewhere classified[ICD10: M46.1] Elizabet Falk MD, [facility] CPT-4: 64830 12/09/2014 ([id number]) 85973 EST. 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] Diagnosis: Carpal tunnel syndrome, unspecified upper limb[ICD10: G56.00] Shannon Falk MD, [facility] CPT-4: 78300 11/13/2014 ([id number]) OFFICE VISIT, NEW - LEVEL 4 Diagnosis: ESSENTIAL HYPERTENSION[ICD9: 401.9] Diagnosis: HYPERLIPIDEMIA[ICD9: 272.4] Diagnosis: DEPRESSIVE DISORDER NEC[ICD9: 311] Diagnosis: Diarrhea[ICD9: 787.91] [facility] CPT-4: 71066 07/10/2014 Plan of Care Planned Activity Notes Codes Status Date Patient Education: Patient Medication Summary Completed 01/05/2018 Care Plan: SCREENINGMAMMOGRAPHYDIGITAL LOINC : 48671-6 Pending 01/05/2018 Visit Plan: Medicare Exam - today [...] care surrogate. 01/02/2018 Appointment: Elizabet Donaldson WPtel: [facility] [id number] [facility] - Annual Wellness Visit 01/02/2018 Patient Education: [...] of control. 12/26/2017 Appointment: Shannon Falk WPtel: [phone] [facility] (15 min) Moderate 12/26/2017 Patient Education: Patient [...] plan. 10/17/2017 Appointment: Elizabet Donaldson WPtel: [phone] [phone] [place] (15 min) Moderate 10/17/2017 Patient Education: [...] at home. 09/27/2017 [facility]ment: [phone] [place] (15 min) Moderate 09/27/2017 Patient Education: Patient Medication Summary Completed 09/27/2017 Care Plan: Referral Order SNOMED-CT : [id number] Pending 09/27/2017 App[facility]ment: [phone] (15 min) Moderate 09/21/2017 Appointment: Nurse Visit [...] daily. 03/24/2017 App[facility]ment: [phone] [place] (15 min) Moderate 03/24/2017 Patient Education: Patient Medication Summary Completed 03/24/2017 App[facility]ment: [phone] [place] (15 min) Moderate 03/16/2017 Appointment: Shannon Falk WPtel: [phone] [facility] (15 min) Moderate 03/01/2017 Visit Plan: Hypertension [...] supportive care. 08/30/2016 App[facility]ment: [phone] ([facility] min) Moderate 08/30/2016 Patient Education: Patient [...] of plan. 08/08/2016 Appointment: Elizabet Donaldson WPtel: [phone] [phone] (30 min) Complex 08/08/2016 Patient Education: Patient Medication Summary Completed 08/08/2016 Referral: Delia Bernstein WPtel: [phone] [place], [place] [id number] Referral Initiated 08/01/2016 Visit Plan: Vaginal yeast [...] refer. 06/27/2016 Appointment: Shila Deluna WPtel: [phone] [facility] (30 min) Complex 06/27/2016 Patient Education: Patient Medication Summary Completed 06/27/2016 Care Plan: Referral Order SNOMED-CT : [id number] Pending 06/27/2016 Visit Plan: Left foot, 1st and 2nd toe pain-suspect fracture of left great toe-will obtain xrays and proceed as indicated. Patient verbalized understanding of plan. 05/23/2016 Appointment: Elizabet Donaldson WPtel: [phone] [facility] [phone] [place] (15 min) Moderate 05/23/2016 Patient Education: Patient [...] start probiotics 02/23/2016 Appointment: [facility] [phone] [facility] [place] (15 min) Moderate 02/23/2016 Patient Education: Patient [...] Summary Completed 09/15/2015 Appointment: Shannon Falk WPtel: [address] [place] [id number] (15 min) Moderate 07/29/2015 Visit Plan: Rash [...] - vitamin B12 liquid 2000mcg daily - [facility] sells the liquid b12, folic acid - take daily. metanex 1 capsule twice daily - call office if this seems to help decrease nerve pain increase the night-time dosing of gabapentin to 300mg in AM, Noon, 6pm and 10pm 04/09/2015 Appointment: [phone] (15 min) Moderate 04/09/2015 Patient Education: [...] in 2012. 03/10/2015 Appointment: [phone] [facility] (15 min) Moderate 03/10/2015 Patient Education: Patient Medication Summary Completed 03/10/2015 Care Plan: SCREENINGMAMMOGRAPHYDIGITAL LOINC : 51209-1 Ordered 03/10/2015 Care Plan: Referral Order SNOMED-CT : [id number] Ordered 03/10/2015 Care Plan: Referral Order SNOMED-CT : [id number] Ordered 03/10/2015 Visit Plan: Left hip bursitis/Iliotibial [...] 12/16/2014 Care Plan: Referral Order SNOMED-CT : [id number] Ordered 12/16/2014 Visit Plan: Sacroiliitis - back [...] Patient Medication Summary Completed 12/09/2014 Patient Education: .Pippa espinosa Exercise for Sciatica Completed 12/09/2014 Visit Plan: [...] tunnel brace. 11/13/2014 Appointment: Shannon Falk WPtel: [address] [place] [id number] Follow up 11/13/2014 Patient Education: Patient Medication [...] stomach pain. ALIGN PROBIOTIC - TAKE DAILY ([employer] OR [employer] -TWO OTHER PROBIOTICS THAT ARE HIGH QUALITY) CIPROFLOXACIN TO BE TAKEN IF NEEDED IF THE DIARRHEA DOES NOT IMPROVE OR IF IT WORSENS. 07/10/2014 Appointment: [facility]el[phone] [facility] [place] ([place] New Patient 07/10/2014 Patient Education: Patient Medication Summary Completed 07/10/2014 Patient Education: Hypertension Completed 07/10/2014 Referral: Darci Spann Referral Relationship Referral: External, Ordering Provider Referral Appointment Requested Referral: External, Ordering Provider 09/28 Referral info faxed to [facility] 10/03 They tried calling her with an appt and she did not answer. Called patient and she will call them back. Appointment Requested Referral: External, Ordering Provider Referral Appointment Requested Referral: [facility] [phone] [facility] Referral Initiated Referral: External, Ordering Provider Referral Completed Instructions Comment catacaleb vega - look up on [employer] . Hypertension - well controlled - continue [...] months based on previous levels of control. increase celebrex to twice daily . Hypertension [...] herself. Increase the celebrex to twice daily. . Vaginal yeast infection - Discussed natural and expected course of this diagnosis and need to alert me if symptoms do not follow expected course, or if any worse. RX sent to patient's pharmacy. Discussed pelvic exam with the pt due to recurrent symptoms - Pt would like to be referred to Dr. Bernstein for her recurrent symptoms - will refer. you currently have amlodipine 5mg, increase this to two pills, use up your supply, when it is finished, refill the 10mg pill at [facility]. carpal tunnel brace . Hypertension - [...] will come in for a pelvic exam. XRAY LUMBAR SPINE AND SI JOINT SCIATICA [...] not resolve or if any worse. . Lumbar degenerative arthritis - RX for [...] Maria Ines recommended repeat scope in 2013. Nasal spray- use twice daily, one spray per nostril twice daily, after 30 minutes, rinse out nose with saline spray.. Use opposite hand per nostril to spray in the nasal steroid allergy spray. ALIGN PROBIOTIC - TAKE DAILY ([employer] OR [employer] -TWO OTHER PROBIOTICS THAT ARE HIGH [...] stomach pain. ALIGN PROBIOTIC - TAKE DAILY ([employer] OR [employer] [facility] -TWO OTHER PROBIOTICS THAT ARE HIGH QUALITY) CIPROFLOXACIN TO BE TAKEN IF NEEDED IF THE DIARRHEA DOES NOT IMPROVE OR IF IT WORSENS. Will give steroid shot today, will send [...] if they worsen, or with any concerns. dr. gely duncan - bone and joint [...] change in blood pressure readings at home. . Hypertension - well controlled - continue [...] control. Pleurisy - continue with supportive care. . Vaginal yeast infection - Discussed natural [...] control. Diarrhea - functional - start probiotics MONITOR BLOOD PRESSURE AND PULSE -BRING READINGS IN FOR BLOOD PRESSURE CHECK IN THE NEXT COUPLE OF WEEKS . Otalgia -no sign of infection - monitor symptoms and call if they do not resolve Hypertension - not well controlled-monitor at home and come in for blood pressure check -discussed increasing benicar if blood pressure stays elevated. Patient verbalized understanding of plan. . Welcome [...] to maintain independece in the home. . Pleurisy-discussed natural and expected course of this diagnosis and to alert me if symptoms do not follow expected course, or if any worse. Kenalog injection today in the office-start prednisone tomorrow. Patient verbalized understanding of plan. Duexis 1 [...] do not improve or if they worsen. XRAY LEFT FOOT AND TOES . Left foot, 1st and 2nd toe pain-suspect fracture of left great toe-will obtain xrays and proceed as indicated. Patient verbalized understanding of plan. recommend Shingles vaccine . Medicare Exam - [...] her [employer] paperwork for health care surrogate. vitamin B12 liquid 2000mcg daily - [facility] sells the liquid b12 folic acid [...] - vitamin B12 liquid 2000mcg daily - [facility] sells the liquid b12, folic acid [...]
--- OUTSIDE RECORDS SUMMARY | 2018-03-17 11:23 | XMS REPORT | CCD ---
Author Author Shannon Falk Organization [facility] Address [address] [place] [address] Phone Care Team Providers Care Barker Peeler Name Role Phone PP Unavailable CCM Unavailable Summary Purpose Interface Exchange Insurance Providers Payer name Policy type / Coverage type Covered green party ID Effective Begin Date Effective End Date WPS Medicare Part B Medicare Part B [id number] Unknown [employer] Insurance Medicare Part B [id number] Unknown Family history Brother Diagnosis Age At [...] Unknown 2 07/10/[address]: 948728953 Has never smoked or chewed tobacco 07/10/2014 Alcohol history Unknown occasionally drinks alcohol 07/10/2014 Allergies, Adverse Reactions, Alerts Substance Reaction Codes Entered Date Inactivated Date Status Remicade hives RxNorm: 008782 03/24/2017 No Inactive Date Active * NO KNOWN FOOD ALLERGIES Unknown 07/10/2014 No Inactive Date Active SULFA(SULFONAMIDE ANTIBIOTICS) Unknown 07/10/2014 No Inactive Date Active Past Medical History Illness Codes Condition Status Onset Date Resolved Date Encounter for general adult medical examination without [...] Codes Effective Dates Condition Status Encounter for general adult medical examination without [...] hydrocodone 7.5 mg-acetaminophen 325 mg tablet RxNorm: 578959 1-2 Tablet(s) PO Q4H as needed 10/12/2017 10/26/2017 Inactive Synthroid 75 mcg tablet RxNorm: 514756 Tablet(s) TAKE 1 TABLET BY MOUTH DAILY 08/09/2017 03/06/2018 Active Generic For:*SYNTHROID 0.075MG TAB 11/14/2016 9:16: 33 AM N O T I C E Last quantity doesn't match original quantity hydrocodone 7.5 mg-acetaminophen 325 mg tablet RxNorm: 080435 1-2 Tablet(s) PO Q4H as needed 05/22/2017 06/20/2017 Inactive citalopram 20 mg tablet RxNorm: 334541 Tablet(s) TAKE ONE (1) TABLET BY MOUTH DAILY 05/09/2017 05/03/2018 Active amlodipine 10 mg tablet RxNorm: 979955 1 Tablet(s) PO daily 1 Tablet(s) PO daily 05/09/2017 09/26/2017 Inactive losartan 100 mg tablet RxNorm: 359265 1 Tablet(s) PO daily TAKE 1 TABLET BY MOUTH DAILY 05/09/2017 01/01/2018 Inactive Celebrex 200 mg capsule RxNorm: 578357 1 Capsule(s) PO BID 03/201703/18/2018 Active gabapentin 300 mg capsule RxNorm: 229781 1 Capsule(s) PO daily 03/24/2017 No Stop Date Active Celebrex 200 mg capsule RxNorm: 006002 1 Capsule(s) PO BID 1 Capsule(s) PO daily 03/24/2017 03/23/2017 Inactive amlodipine 10 mg tablet RxNorm: 283895 1 Tablet(s) PO daily 1 Tablet(s) PO daily 03/24/2017 05/08/2017 Inactive Lipitor 40 mg tablet RxNorm: 815793 Tablet(s) TAKE ONE TABLET BY MOUTH AT BEDTIME 02/14/2017 09/26/2017 Inactive hydrocodone 7.5 mg-acetaminophen 325 mg tablet RxNorm: 757555 1-2 Tablet(s) PO Q4H as needed 01/16/2017 02/14/2017 Inactive scopolamine 1.5 mg transdermal patch (1 mg over 3 days) RxNorm: 763477 1 Patch TD Q72H 11/25/2016 12/04/2016 Inactive scopolamine 1.5 mg transdermal patch (1 mg over 3 days) RxNorm: 482112 1 Patch TD Q72H 11/25/2016 11/24/2016 Inactive losartan 100 mg tablet RxNorm: 331967 1 Tablet(s) PO daily TAKE 1 TABLET BY MOUTH DAILY 11/14/2016 05/08/2017 Inactive Generic For:COZAAR 100MG TAB 05/17/2016 8:31: 51 AM Synthroid 75 mcg tablet RxNorm: 711617 TAKE 1 TABLET BY MOUTH DAILY 11/14/2016 06/11/2017 Inactive Generic For:*SYNTHROID 0.075MG TAB 11/14/2016 9:16:33 AM N O T I C E Last quantity doesn't match original quantity citalopram 20 mg tablet RxNorm: 425153 TAKE ONE (1) TABLET BY MOUTH DAILY 11/14/2016 05/08/2017 Inactive Generic For:CELEXA 20MG TAB 11/14/2016 8:30:49 AM N O T I C E Last quantity doesn't match original quantity prednisone 10 mg tablets in a dose pack RxNorm: 947322 1 Tablet(s) PO UD 09/30/2016 10/05/2016 Inactive 6-5-4-3-2-1 hydrocodone 7.5 mg-acetaminophen 325 mg tablet RxNorm: 466779 1-2 Tablet(s) PO Q4H as needed 09/20/2016 01/15/2017 Inactive amlodipine 5 mg tablet RxNorm: 568785 TAKE ONE TABLET BY MOUTH EVERY DAY 08/15/2016 03/23/2017 Inactive Generic For:NORVASC 5 MG TABLET 08/15/2016 3:56:26 PM N O T I C E Last quantity doesn't match original quantity Kenalog 40 mg/mL suspension for injection RxNorm: 1161533 1 Milliliter(s) Inj 08/08/2016 08/08/2016 Inactive prednisone 10 mg tablets in a dose pack RxNorm: 703358 1 Tablet(s) PO UD 08/08/2016 08/07/2016 Inactive prednisone 10 mg tablets in a dose pack RxNorm: 003539 1 Tablet(s) PO UD 08/08/2016 08/13/2016 Inactive 6-5-4-3-2-1 Diflucan 150 mg tablet RxNorm: 894791 1 Tablet(s) PO daily 09/201607/10/2016 Inactive Synthroid 75 mcg tablet RxNorm: 390053 TAKE 1 TABLET BY MOUTH DAILY 06/16/2016 11/13/2016 Inactive Generic For:*SYNTHROID 0.075MG TAB pt would like a 90 day supply N O T I C E Last quantity doesn't match original quantity hydrocodone 7.5 mg-acetaminophen 325 mg tablet RxNorm: 666217 1-2 Tablet(s) PO Q4H as needed 06/06/2016 09/19/2016 Inactive citalopram 20 mg tablet RxNorm: 839662 TAKE ONE (1) TABLET BY MOUTH DAILY 05/18/2016 11/13/2016 Inactive Generic For:CELEXA 20MG TAB 05/17/2016 8:32:02 AM Celebrex 200 mg capsule RxNorm: 196976 1 Capsule(s) PO daily 03/23/2017 Inactive losartan 100 mg tablet RxNorm: 409406 TAKE 1 TABLET BY MOUTH DAILY 05/17/2016 11/12/2016 Inactive Generic For:COZAAR 100MG TAB 05/17/2016 8:31:51 AM amlodipine 5 mg tablet RxNorm: 638410 1 Tablet(s) PO daily 08/14/2016 Inactive Cipro 500 mg tablet RxNorm: 308523 1 Tablet(s) PO BID 201605/03/2016 Inactive Cipro 500 mg tablet RxNorm: 816923 1 Tablet(s) PO BID 201605/13/2016 Inactive Diflucan 150 mg tablet RxNorm: 902131 1 Tablet(s) PO daily 05/01/2016 Inactive Monistat Soothing Care 1.2 % topical gel RxNorm: 9127926 1 Application TOP BID 03/07/2016 01/01/2018 Inactive Diflucan 150 mg tablet RxNorm: 180085 1 Tablet(s) PO daily 03/13/2016 Inactive Lipitor 40 mg tablet RxNorm: 088173 Tablet(s) TAKE ONE TABLET BY MOUTH AT BEDTIME 02/23/2016 02/13/2017 Inactive citalopram 20 mg tablet RxNorm: 173473 TAKE ONE (1) TABLET BY MOUTH DAILY 02/18/2016 05/17/2016 Inactive Generic For:CELEXA 20MG TAB refill request losartan 100 mg tablet RxNorm: 726351 Tablet(s) 1 Tablet, 1 time per Day 02/09/2016 05/16/2016 Inactive INSURANCE WILL NOT COVER ADELA ANDREWS DENIED UNTIL OTHER FORMULARIES HAVE BEEN TRIED AND FAILED hydrocodone 7.5 mg-acetaminophen 325 mg tablet RxNorm: 537923 1-2 Tablet(s) PO Q4H as needed 02/03/2016 06/05/2016 Inactive Synthroid 75 mcg tablet RxNorm: 112022 Tablet(s) TAKE 1 TABLET BY MOUTH DAILY 01/19/2016 06/15/2016 Inactive Generic For:*SYNTHROID 0.075MG TAB 09/22/2014 10:00 :02 AM N O T I C E PRESCRIPTION PREVIOUSLY AUTHORIZED BY DOCTOR:SWATI BEY prednisone 10 mg tablets in a dose pack RxNorm: 210796 1 Tablet(s) PO UD 01/07/2016 02/22/2016 Inactive 6-5-4-3-2-1 amlodipine 10 mg tablet RxNorm: 125580 1 Tablet(s) PO daily 11/30/2016 Inactive citalopram 20 mg tablet RxNorm: 017936 TAKE ONE (1) TABLET BY MOUTH DAILY 11/17/2015 02/14/2016 Inactive Generic For:CELEXA 20MG TAB refill request hydrocodone 7.5 mg-acetaminophen 325 mg tablet RxNorm: 017541 1-2 Tablet(s) PO Q4H as needed 10/08/2015 02/02/2016 Inactive losartan 100 mg tablet RxNorm: 295980 Tablet(s) 1 Tablet, 1 time per Day 2015 02/07/2016 Inactive INSURANCE WILL NOT COVER ADELA ANDREWS DENIED UNTIL OTHER FORMULARIES HAVE BEEN TRIED AND FAILED citalopram 20 mg tablet RxNorm: 108274 TAKE ONE (1) TABLET BY MOUTH DAILY 08/10/2015 11/07/2015 Inactive Generic For:CELEXA 20MG TAB 08/10/2015 8:59:58 AM Synthroid 75 mcg tablet RxNorm: 231400 Tablet(s) TAKE 1 TABLET BY MOUTH DAILY 05/26/2015 12/21/2015 Inactive Generic For:*SYNTHROID 0.075MG TAB 09/22/2014 10:00 :02 AM N O T I C E PRESCRIPTION PREVIOUSLY AUTHORIZED BY DOCTOR:SWATI BEY prednisone 20 mg tablet RxNorm: 175200 2 Tablet(s) PO daily 06/201505/30/2015 Inactive Lipitor 40 mg tablet RxNorm: 281012 TAKE ONE TABLET BY MOUTH AT BEDTIME 05/14/2015 02/07/2016 Inactive Generic For:LIPITOR 40MG TAB 05/13/2015 8:26:33 AM N O T I C E PRESCRIPTION PREVIOUSLY AUTHORIZED BY DOCTOR:SWATI BEY hydrocodone 7.5 mg-acetaminophen 325 mg tablet RxNorm: 958240 1-2 Tablet(s) PO Q4H as needed 05/11/2015 10/07/2015 Inactive Celebrex 200 mg capsule RxNorm: 692664 1 Capsule(s) PO daily 04/30/2016 Inactive citalopram 20 mg tablet RxNorm: 507755 TAKE ONE (1) TABLET BY MOUTH DAILY 04/27/2015 07/25/2015 Inactive Generic For:CELEXA 20MG TAB 04/26/2015 7:30:08 PM gabapentin 300 mg capsule RxNorm: 198078 1 Capsule(s) PO QID 04/02/2016 Inactive citalopram 20 mg tablet RxNorm: 715677 TAKE ONE (1) TABLET BY MOUTH DAILY 01/26/2015 04/25/2015 Inactive Generic For:CELEXA 20MG TAB 01/26/2015 8:40:11 AM losartan 100 mg tablet RxNorm: 986556 1 Tablet, 1 time per Day 01/26/2015 03/29/2015 Inactive INSURANCE WILL NOT COVER ADELA ANDREWS DENIED UNTIL OTHER FORMULARIES HAVE BEEN TRIED AND FAILED hydrocodone 7.5 mg-acetaminophen 325 mg tablet RxNorm: 813089 1-2 Tablet(s) PO Q4H as needed 01/23/2015 05/10/2015 Inactive Neurontin 100 mg capsule RxNorm: 005935 1 Capsule(s) PO TID 03/09/2015 Inactive Neurontin 100 mg capsule RxNorm: 155619 1 Capsule(s) PO TID 01/13/2015 Inactive Keflex 500 mg capsule RxNorm: 550379 1 Capsule(s) PO TID 201401/05/2015 Inactive Keflex 500 mg capsule RxNorm: 867950 1 Capsule(s) PO TID 201401/12/2015 Inactive hydrocodone 7.5 mg-acetaminophen 325 mg tablet RxNorm: 281049 1-2 Tablet(s) PO Q4H as needed 12/29/2014 01/22/2015 Inactive Duexis 800 mg-26.6 mg tablet RxNorm: 4023808 1 Tablet(s) PO TID as needed 12/19/2014 03/29/2015 Inactive Duexis 800 mg-26.6 mg tablet RxNorm: 8509997 1 Tablet(s) PO TID as needed 12/19/2014 12/18/2014 Inactive Kenalog 40 mg/mL suspension for injection RxNorm: 1981372 1 Milliliter(s) Inj 12/09/2014 12/09/2014 Inactive prednisone 10 mg tablets in a dose pack RxNorm: 345089 1 Tablet(s) PO UD 12/09/2014 12/14/2014 Inactive 6-5-4-3-2-1 amlodipine 10 mg tablet RxNorm: 801868 1 Tablet(s) PO daily 11/07/2015 Inactive citalopram 20 mg tablet RxNorm: 533364 TAKE ONE (1) TABLET BY MOUTH DAILY 10/23/2014 01/20/2015 Inactive Generic For:CELEXA 20MG TAB 10/23/2014 4:32:02 PM N O T I C E PRESCRIPTION PREVIOUSLY AUTHORIZED BY DOCTOR:SWATI BEY [phone] hydrocodone 7.5 mg-acetaminophen 325 mg tablet RxNorm: 951630 1-2 Tablet(s) PO Q4H as needed 10/22/2014 12/28/2014 Inactive Synthroid 75 mcg tablet RxNorm: 611573 TAKE 1 TABLET BY MOUTH DAILY 09/22/2014 04/19/2015 Inactive Generic For:*SYNTHROID 0.075MG TAB 09/22/2014 10:00:02 AM N O T I C E PRESCRIPTION PREVIOUSLY AUTHORIZED BY DOCTOR:SWATI BEY amlodipine 5 mg tablet RxNorm: 780287 1 Tablet(s) PO daily 07/201411/12/2014 Inactive Synthroid 75 mcg tablet RxNorm: 349685 1 Tablet(s) PO daily ecept a 1/2 tab on Monday07/11/2014 09/21/2014 Inactive Flonase Allergy Relief 50 mcg/actuation nasal spray, suspension RxNorm: 1 [place] NASAL BID 07/10/2014 12/06/2014 Inactive Aldactone 25 mg tablet RxNorm: 596884 1 Tablet(s) PO daily No Start Date Active Benicar 20 mg tablet RxNorm: 248851 1 Tablet(s) PO daily No Start Date Active chlorthalidone 25 mg tablet RxNorm: 675351 1 Tablet(s) PO daily No Start Date Active methotrexate sodium 2.5 mg tablet RxNorm: 431233 3 Tablet(s) PO weekly No Start Date 04/08/2015 Inactive gabapentin 300 mg capsule RxNorm: 308066 1 Capsule(s) PO TID No Start Date 04/08/2015 Inactive Plaquenil 200 mg tablet RxNorm: 006101 1 Tablet(s) PO BID No Start Date 05/22/2016 Inactive losartan 100 mg tablet RxNorm: 540711 1 Tablet(s) PO daily No Start Date 01/25/2015 Inactive Remicade intravenous RxNorm: 978266 intravenous No Start Date 03/23/2017 Inactive amlodipine 5 mg tablet RxNorm: 943570 1 Tablet(s) PO daily No Start Date 08/24/2014 Inactive Celebrex 200 mg capsule RxNorm: 622413 1 Capsule(s) PO daily No Start Date 10/16/2017 Inactive citalopram 20 mg tablet RxNorm: 134591 1 Tablet(s) PO daily No Start Date 10/22/2014 Inactive Synthroid 88 mcg tablet RxNorm: 162410 1 Tablet(s) PO daily No Start Date 07/09/2014 Inactive Arava 20 mg tablet RxNorm: 862328 1 Tablet(s) PO daily No Start Date 01/01/2018 Inactive Lipitor 40 mg tablet RxNorm: 492662 1 Tablet(s) PO daily No Start Date 05/13/2015 Inactive Synthroid 75 mcg tablet RxNorm: 440541 1 Tablet(s) PO daily No Start Date 07/10/2014 Inactive hydrocodone 7.5 mg-acetaminophen 325 mg tablet RxNorm: 199044 Tablet(s) PO as needed No Start Date 10/21/2014 Inactive Medication Administered Medication Codes Instructions Start Date Status Kenalog 40 mg/mL suspension for injection RxNorm: 4289275 1Milliliter 08/08/2016 No longer Active Kenalog 40 mg/mL suspension for injection RxNorm: 1051174 1Milliliter 12/09/2014 No longer Active Immunizations No Immunization data Assessments Condition Codes Effective Dates Encounter for general adult medical examination without [...] 31.1 pg 12/26/2017 Cbc With Differential Ord2 [place]% 9.2 % 12/26/2017 Cbc With Differential Ord2 [...] 1.53 K/ul 12/26/2017 Cbc With Differential Ord2 [place] ABS# 0.7 K/ul 12/26/2017 Cbc With Differential Ord2 Eos ABS# 0.1 K/ul 12/26/2017 Cbc With Differential Ord2 Baso ABS# 0.0 K/ul 12/26/2017 Free T4 Zmj609 FREE T4 0.93 ng/dL 12/26/2017 Comp Metabolic Ucs785 NA 135 mEq/L 12/26/2017 Comp Metabolic Juh941 K 4.4 mEq/L 12/26/2017 Comp Metabolic Kas265 CL 98 mEq/L 12/26/2017 Comp Metabolic Bcv769 CO2 28.0 mEq/L 12/26/2017 Comp Metabolic Thv039 ANION GAP 13 12/26/2017 Comp Metabolic Sob153 GLUCOSE 92 mg/dL 12/26/2017 Comp Metabolic Vjx162 Creat 1.1 mg/dL 12/26/2017 Comp Metabolic Avz029 eGFR 52 ml/min/1.73m2 12/26/2017 Comp Metabolic Eib593 BUN 25 mg/dL 12/26/2017 Comp Metabolic Yos746 B/C Ratio 22.7 Ratio 12/26/2017 Comp Metabolic Dfe138 CALCIUM 9.8 mg/dL 12/26/2017 Comp Metabolic Lba155 ALK PHOS 91 U/L 12/26/2017 Comp Metabolic Xgc257 AST(SGOT) 16 U/L 12/26/2017 Comp Metabolic Sop089 ALT(SGPT) 12 U/L 12/26/2017 Comp Metabolic Ykn885 BILI T 0.5 mg/dL 12/26/2017 Comp Metabolic Tte937 ALBUMIN 4.3 g/dL 12/26/2017 Comp Metabolic Zgr437 TPRO 6.8 g/dL 12/26/2017 Comp Metabolic Hrk120 GLOB 2.5 g/dL 12/26/2017 Comp Metabolic Weu087 A/G Ratio 1.7 Ratio 12/26/2017 Comp Metabolic Pft668 Osmo 274 mOsmo 12/26/2017 Urine Culture Ucult Complete NO Growth Day 2 06/29/2016 Urine Culture Ucult Preliminary NO Growth Day 1 06/29/2016 Culture Urine [id number] URINE CULTURE SEE NOTES 04/22/2016 Culture Urine [id number] Continued Results 04/22/2016 Urine Culture Ucult Complete >100,000 col/ml aerobic growth sent to ref lab 04/20/2016 Comp Metabolic Zlv629 NA 137 mEq/L 02/10/2016 Comp Metabolic Axp847 K 4.1 mEq/L 02/10/2016 Comp Metabolic Hsr348 CL 102 mEq/L 02/10/2016 Comp Metabolic Qnl810 CO2 28.0 mEq/L 02/10/2016 Comp Metabolic Swe689 ANION GAP 11 02/10/2016 Comp Metabolic Wge443 GLUCOSE 104 mg/dL 02/10/2016 Comp Metabolic Htc038 Creat 0.7 mg/dL 02/10/2016 Comp Metabolic Bzl191 eGFR 83 ml/min/1.73m2 02/10/2016 Comp Metabolic Fyh275 BUN 14 mg/dL 02/10/2016 Comp Metabolic Ajz595 B/C Ratio 18.9 Ratio 02/10/2016 Comp Metabolic Txj226 CALCIUM 9.7 mg/dL 02/10/2016 Comp Metabolic Nvd168 ALK PHOS 121 U/L 02/10/2016 Comp Metabolic Plt648 AST(SGOT) 19 U/L 02/10/2016 Comp Metabolic Gqu131 ALT(SGPT) 13 U/L 02/10/2016 Comp Metabolic Vhj518 BILI T 0.5 mg/dL 02/10/2016 Comp Metabolic Jgn911 ALBUMIN 4.3 g/dL 02/10/2016 Comp Metabolic Abe401 TPRO 6.8 g/dL 02/10/2016 Comp Metabolic Kzb980 GLOB 2.5 g/dL 02/10/2016 Comp Metabolic Wey978 A/G Ratio 1.7 Ratio 02/10/2016 Comp Metabolic Mlf988 Osmo 275 mOsmo 02/10/2016 Lipid Ord30 CHOL 229 mg/dL 02/10/2016 Lipid Ord30 HDL 59.0 mg/dl 02/10/2016 Lipid Ord30 TRIG 252 mg/dL 02/10/2016 Lipid Ord30 LDL 120 mg/dL 02/10/2016 Lipid Ord30 C/HDL 3.9 Ratio 02/10/2016 Free T4 Mmj645 FREE T4 0.87 ng/dL 02/10/2016 Tsh Ord6 [...] 29.2 pg 02/10/2016 Cbc With Differential Ord2 [place]% 18.6 % 02/10/2016 Cbc With Differential Ord2 [...] 1.81 K/ul 02/10/2016 Cbc With Differential Ord2 [place] ABS# 1.1 K/ul 02/10/2016 Cbc With Differential Ord2 Eos ABS# 0.1 K/ul 02/10/2016 Cbc With Differential Ord2 Baso ABS# 0.1 K/ul 02/10/2016 Tsh Ord6 hTSH II 0.85 uIU/mL 04/02/2015 Lipid Ord30 CHOL 207 mg/dL 04/02/2015 Lipid Ord30 HDL 68.0 mg/dl 04/02/2015 Lipid Ord30 TRIG 193 mg/dL 04/02/2015 Lipid Ord30 LDL 100 mg/dL 04/02/2015 Lipid Ord30 C/HDL 3.0 Ratio 04/02/2015 Free T4 Nqo576 FREE T4 1.09 ng/dL 04/02/2015 Free T4 Kao547 FREE T4 0.82 ng/dL 10/15/2014 Tsh Ord6 [...] fifth 09/27/2017 None Full Exam - General 1995 Musculoskeletal digits and nails PIPs: swelling 09/27/2017 [...] fourth 03/24/2017 None Full Exam - General 1995 Musculoskeletal digits and nails DIPs: fifth 03/24/2017 None Full Exam - General 1995 Musculoskeletal digits and nails DIPs: tender 03/24/2017 None Full Exam - General 1995 Musculoskeletal digits and nails DIPs: swelling 03/24/2017 None Full Exam - General 1995 Musculoskeletal digits and nails PIPs: first 03/24/2017 None Full Exam - General 1995 Musculoskeletal digits and nails PIPs: second 03/24/2017 None Full Exam - General 1995 Musculoskeletal digits and nails PIPs: third 03/24/2017 None Full Exam - General 1995 Musculoskeletal digits and nails PIPs: fourth 03/24/2017 [...] Code : 8480-6 BMI: 32.4 Code : 95655-0 Heart Rate 1 : 80 bpm Height: 5'4" SpO2: 99% Waist Measure (cm): 104 cm Weight: 189 lbs 12/26/2017 Blood Pressure 1: 138/72 Code : 8480-6 BMI: 31.4 Code : 86918-2 Heart Rate 1 : 72 bpm Height: 5'4" SpO2: 96% Weight: 183 lbs 10/17/2017 Blood Pressure 1: 156/72 Code : 8480-6 BMI: 31.4 Code : 84868-5 Heart Rate 1 : 81 bpm Height: 5'4" SpO2: 98% Temperature: 36.5 (C) / 97.7 (F) Weight: 183 lbs 09/27/2017 Blood Pressure 1: 140/82 Code : 8480-6 BMI: 32.1 Code : 37802-4 Heart Rate 1 : 82 bpm Height: 5'4" SpO2: 98% Weight: 187 lbs 07/31/2017 Blood Pressure 1: 138/82 Code : 8480-6 Heart Rate 1: 87 bpm SpO2: 99% 03/24/2017 Blood Pressure 1: 146/86 Code : 8480-6 BMI: 31.8 Code : 22862-3 Heart Rate 1 : 79 bpm Height: 5'4" SpO2: 96% Temperature: 36.4 (C) / 97.5 (F) Weight: 185 lbs 08/30/2016 Blood Pressure 1: 142/88 Code : 8480-6 BMI: 31.6 Code : 15520-7 Heart Rate 1 : 80 bpm Height: 5'4" SpO2: 93% Weight: 184 lbs 08/08/2016 Blood Pressure 1: 142/76 Code : 8480-6 BMI: 29.9 Code : 81939-2 Heart Rate 1 : 80 bpm Height: 5'4" SpO2: 94% Weight: 174 lbs 06/27/2016 Blood Pressure 1: 156/72 Code : 8480-6 BMI: 30.6 Code : 98469-0 Heart Rate 1 : 78 bpm Height: 5'4" SpO2: 95% Weight: 178 lbs 05/23/2016 Blood Pressure 1: 146/84 Code : 8480-6 Heart Rate 1: 66 bpm Height: 5'4" SpO2: 94% 04/18/2016 Blood Pressure 1: 148/84 Code : 8480-6 BMI: 30.2 Code : 27710-2 Heart Rate 1 : 81 bpm Height: 5'4" SpO2: 97% Weight: 176 lbs 03/07/2016 Blood Pressure 1: 130/78 Code : 8480-6 BMI: 30.0 Code : 61427-3 Heart Rate 1 : 85 bpm Height: 5'4" SpO2: 96% Weight: 175 lbs 02/23/2016 Blood Pressure 1: 140/78 Code : 8480-6 BMI: 29.7 Code : 57157-3 Heart Rate 1 : 74 bpm Height: 5'4" SpO2: 95% Weight: 173 lbs 09/15/2015 Blood Pressure 1: 140/88 Code : 8480-6 BMI: 29.4 Code : 70082-9 Heart Rate 1 : 81 bpm Height: 5'4" SpO2: 97% Weight: 171 lbs 8 oz 05/26/2015 Blood Pressure 1: 150/80 Code : 8480-6 BMI: 31.6 Code : 31271-2 Heart Rate 1 : 70 bpm Height: 5'4" SpO2: 96% Weight: 184 lbs 04/09/2015 Blood Pressure 1: 136/74 Code : 8480-6 BMI: 31.4 Code : 92779-7 Heart Rate 1 : 91 bpm Height: 5'4" SpO2: 94% Weight: 183 lbs 03/30/2015 Blood Pressure 1: 130/72 Code : 8480-6 BMI: 30.9 Code : 18202-7 Heart Rate 1 : 80 bpm Height: 5'4" SpO2: 97% Waist Measure (cm): 102 cm Weight: 180 lbs 03/10/2015 Blood Pressure 1: 152/80 Code : 8480-6 BMI: 31.1 Code : 02784-8 Heart Rate 1 : 66 bpm Height: 5'4" SpO2: 98% Weight: 181 lbs 12/16/2014 Blood Pressure 1: 132/88 Code : 8480-6 Blood Pressure 1: 132/88 Code: 8480-6 Heart Rate 1: 88 bpm SpO2: 98% Weight: 183 lbs 12/09/2014 Blood Pressure 1: 140/82 Code : 8480-6 BMI: 31.2 Code : 21912-7 Heart Rate 1 : 105 bpm Height: 5'4" SpO2: 93% Weight: 182 lbs 11/13/2014 Blood Pressure 1: 148/88 Code : 8480-6 BMI: 31.8 Code : 13139-5 Heart Rate 1 : 54 bpm Height: 5'4" SpO2: 98% Weight: 185 lbs 07/10/2014 Blood Pressure 1: 144/96 Code : 8480-6 BMI: 31.4 Code : 76936-0 Heart Rate 1 : 99 bpm Height: [...] data Encounters Encounter Performer Location Codes Date ([id number]) [id number] EST. 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 PATIENT, LEVEL III Diagnosis: Otalgia, left ear[ICD10: H92.02] Diagnosis: Essential (primary) hypertension[ICD10: I10] Elizabet Falk MD, [facility] CPT-4: 44676 10/17/2017 ([id number]) 37892 EST. 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 PATIENT, LEVEL IV Diagnosis: Atrophy of thyroid (acquired)[ICD10: E03.4] Diagnosis: Pleurisy[ICD10: R09.1] Diagnosis: Essential (primary) hypertension[ICD10: I10] Shannon Falk MD, [facility] CPT-4: 71361 08/30/2016 ([id number]) 73923 EST. PATIENT, LEVEL III Diagnosis: Pleurisy[ICD10: R09.1] Elizabet Falk MD, [facility] CPT-4: 23783 08/08/2016 09451 EST. PATIENT, LEVEL III Diagnosis: Dysuria[ICD10: R30.0] Diagnosis: Other pruritus[ICD10: L29.8] Shila Falk MD, [facility] CPT-4 : 51419 06/27/2016 ([id number]) 02846 EST. PATIENT, LEVEL III Diagnosis: Pain in left foot[ICD10: M79.672] Diagnosis: Pain in left toe(s)[ICD10: M79.675] Elizabet Falk MD, [facility] CPT-4: 55869 05/23/2016 64425 EST. PATIENT, LEVEL III Diagnosis: Candidiasis of vulva and vagina[ICD10: B37.3] Diagnosis: Dysuria[ICD10: R30.0] Shila Falk MD, [facility] CPT-4: 42571 04/18/2016 [id number] EST. PATIENT, LEVEL III Diagnosis: Other pruritus[ICD10: L29.8] Diagnosis: Candidiasis of vulva and vagina[ICD10: B37.3] Shila Falk MD, [facility] CPT-4: 67568 03/07/2016 ([id number]) 45564 EST. PATIENT, LEVEL IV Diagnosis: Essential (primary) hypertension[ICD10: I10] Diagnosis: Pain in left hip[ICD10: M25.552] Diagnosis: Pain in right hip[ICD10: M25.551] Diagnosis: Functional diarrhea[ICD10: K59.1] Diagnosis: Atrophy of thyroid (acquired)[ICD10: E03.4] Shannon Falk MD, [facility] CPT-4: 94359 02/23/2016 ([id number]) 68449 EST. PATIENT, LEVEL IV Diagnosis: Essential (primary) hypertension[ICD10: I10] Diagnosis: Mixed hyperlipidemia[ICD10: E78.2] Diagnosis: Major depressive disorder, single episode, unspecified[ICD10: F32.9] Shannon Falk MD, [facility] CPT-4: 08560 09/15/2015 [id number] EST. PATIENT, LEVEL III Diagnosis: Rash and other nonspecific skin eruption[ICD10: R21] Shila Falk MD, [facility] CPT-4: 74444 05/26/2015 ([id number]) [id number] EST. PATIENT, LEVEL IV Diagnosis: Essential (primary) hypertension[ICD10: I10] Diagnosis: Foot drop, left foot[ICD10: M21.372] Diagnosis: Sacroiliitis, not elsewhere classified[ICD10: M46.1] Shannon Falk MD, [facility] CPT-4: 47861 04/09/2015 ([id number]) [id number] EST. 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 PATIENT, LEVEL III Diagnosis: Trochanteric bursitis, left hip[ICD10: M70.62] Diagnosis: Iliotibial band syndrome, left leg[ICD10: M76.32] Diagnosis: Sciatica, left side[ICD10: M54.32] Elizabet Falk MD [facility] CPT-4: 19419 12/16/2014 (20202) 91799 EST. PATIENT, LEVEL III Diagnosis: Sciatica, left side[ICD10: M54.32] Diagnosis: Sacroiliitis, not elsewhere classified[ICD10: M46.1] Elizabet Falk MD, [facility] CPT-4: 32552 12/09/2014 ([id number]) 79504 EST. 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 01/02/2018 Appointment: El[facility] Donaldson [phone] [phone] [facility] - Annual Wellness Visit 01/02/2018 [...] of control. 12/26/2017 Appointment: [phone] [facility] (15 min) Moderate 12/26/2017 Patient Education: Patient [...] plan. 10/17/2017 Appointment: Elizabet Donaldson WPtel: [phone] [phone] (15 min) Moderate 10/17/2017 Patient Education: Patient [...] at home. 09/27/2017 Appointment: Shannon Falk WPtel: [facility] (15 min) Moderate 09/27/2017 Patient Education: Patient Medication Summary Completed 09/27/2017 Care Plan: Referral Order SNOMED-CT : [id number] Pending 09/27/2017 Appointment: Shannon Falk WPtel: [facility] [place] (15 min) Moderate 09/21/2017 Appointment: Nurse [...] twice daily. 03/24/2017 Appointment: Shannon Falk WPtel: [facility] (15 min) Moderate 03/24/2017 Patient Education: Patient Medication Summary Completed 03/24/2017 App[facility]ment: [phone] [facility] [place] (15 min) Moderate 03/16/2017 Appointment: [facility] [phone] [facility] (15 min) Moderate 03/01/2017 Visit Plan: Hypertension [...] supportive care. 08/30/2016 Appointment: Shannon Falk WPtel: [facility] (15 min) Moderate 08/30/2016 Patient Education: Patient [...] of plan. 08/08/2016 Appointment: Elizabet Donaldson WPtel: [phone] (30 min) Complex 08/08/2016 Patient Education: Patient Medication Summary Completed 08/08/2016 Referral: Delia Bernstein WPtel: [address] [place], [place] [phone] Referral Initiated 08/01/2016 Visit Plan: Vaginal yeast [...] will refer. 06/27/2016 Appointment: Shila Deluna WPtel: [facility] (30 min) Complex 06/27/2016 Patient Education: Patient Medication Summary Completed 06/27/2016 Care Plan: Referral Order SNOMED-CT : [id number] Pending 06/27/2016 Visit Plan: Left foot, 1st and 2nd toe pain-suspect fracture of left great toe-will obtain xrays and proceed as indicated. Patient verbalized understanding of plan. 05/23/2016 Appointment: Elizabet Donaldson WPtel: [address] [place], [place] [phone] [place] (15 min) Moderate 05/23/2016 Patient Education: [...] start probiotics 02/23/2016 Appointment: Shannon Falk WPtel: [address] [place], [place] [address] (15 min) Moderate 02/23/2016 Patient Education: Patient [...] Summary Completed 09/15/2015 Appointment: [phone] [facility] (15 min) Moderate 07/29/2015 Visit Plan: Rash [...] - vitamin B12 liquid 2000mcg daily - [facility] sells the liquid b12, folic acid - take daily. metanex 1 capsule twice daily - call office if this seems to help decrease nerve pain increase the night-time dosing of gabapentin to 300mg in AM, Noon, 6pm and 10pm 04/09/2015 Appointment: [facility]el[phone] [facility] (15 min) Moderate 04/09/2015 Patient Education: Patient [...] in 2012. 03/10/2015 Appointment: Shannon Falk WPtel: [address] [place] [address] (15 min) Moderate 03/10/2015 Patient Education: Patient Medication Summary Completed 03/10/2015 Care Plan: SCREENINGMAMMOGRAPHYDIGITAL LOINC : 05564-1 Ordered 03/10/2015 Care Plan: Referral Order SNOMED-CT : [id number] Ordered 03/10/2015 Care Plan: Referral Order SNOMED-CT : [id number] Ordered 03/10/2015 Visit Plan: Left hip bursitis/Iliotibial [...] Band Rehabilitation exercises Completed 12/16/2014 Patient Education: Eryn espinosa Exercise for Sciatica Completed 12/16/2014 Care Plan: Referral Order SNOMED-CT : [id number] Ordered 12/16/2014 Visit Plan: Sacroiliitis - back [...] tunnel brace. 11/13/2014 Appointment: Shannon Falk WPtel: [facility] Follow up 11/13/2014 Patient Education: Patient Medication [...] stomach pain. ALIGN PROBIOTIC - TAKE DAILY ([employer] OR [employer] -TWO OTHER PROBIOTICS THAT ARE HIGH QUALITY) CIPROFLOXACIN TO BE TAKEN IF NEEDED IF THE DIARRHEA DOES NOT IMPROVE OR IF IT WORSENS. 07/10/2014 Appointment: Shannon Falk WPtel: [facility] [place] ([place]) New Patient 07/10/2014 Patient Education: Patient Medication Summary Completed 07/10/2014 Patient Education: Hypertension Completed 07/10/2014 Referral: Darci Spann Referral Relationship Referral: External, Ordering Provider Referral Appointment Requested Referral: External, Ordering Provider 09/[address] [facility] 10/03 They tried calling her with an appt and she did not answer. Called patient and she will call them back. Appointment Requested Referral: External, Ordering Provider Referral Appointment Requested Referral: Delia Bernstein WPtel: [address] [place], [place] [phone] Referral Initiated Referral: External, Ordering Provider Referral Completed Instructions Comment recommend Shingles vaccine . Medicare Exam - [...] her [employer] paperwork for health care surrogate. . Pleurisy-discussed natural and expected course of this diagnosis and to alert me if symptoms do not follow expected course, or if any worse. Kenalog injection today in the office-start prednisone tomorrow. Patient verbalized understanding of plan. . Hypertension [...] control. Pleurisy - continue with supportive care. Nasal spray- use twice daily, one spray per nostril twice daily, after 30 minutes, rinse out nose with saline spray.. Use opposite hand per nostril to spray in the nasal steroid allergy spray. ALIGN PROBIOTIC - TAKE DAILY ([employer] OR [employer] -TWO OTHER PROBIOTICS THAT ARE HIGH [...] stomach pain. ALIGN PROBIOTIC - TAKE DAILY ([employer] OR [employer] -TWO OTHER PROBIOTICS THAT ARE HIGH QUALITY) [...] is finished, refill the 10mg pill at [facility]. carpal tunnel brace . Hypertension - uncontrolled [...] - pt to use carpal tunnel brace. luanne vega - look up on [place] . Hypertension - well controlled - continue [...] months based on previous levels of control. . Hypertension - well controlled - continue [...] in dose of citalopram at this time. vitamin B12 liquid 2000mcg daily - [facility] sells the liquid b12 folic acid [...] - vitamin B12 liquid 2000mcg daily - [facility] sells the liquid b12, folic acid [...] not improve or if they worsen. . Welcome to Medicare Exam - today [...] stays elevated. Patient verbalized understanding of plan. dr. gely duncan - bone and joint [...] they worsen, or with any concerns. . Vaginal yeast infection - Discussed natural [...]
--- OUTSIDE RECORDS SUMMARY | 2018-03-17 11:26 | XMS REPORT | CCD ---
Author Author [facility] Organization [facility] Address [address] [place] [address] Phone Care Team Providers Care Group Burner Machine Name Role Phone PP Unavailable CCM Unavailable Summary Purpose Interface Exchange Insurance Providers Payer name Policy type / Coverage type Covered democrat ID Effective Begin Date Effective End Date WPS Medicare Part B Medicare Part B [id number] Unknown [place] [employer] Life Insurance Medicare Part B [id number] Unknown Family history Brother Diagnosis Age At [...] Unknown 2 07/10/[address]: [id number] Has never smoked or chewed tobacco 07/10/2014 Alcohol history Unknown occasionally drinks alcohol 07/10/2014 Allergies, Adverse Reactions, Alerts Substance Reaction Codes Entered Date Inactivated Date Status Remicade hives RxNorm: 685743 03/24/2017 No Inactive Date Active * NO [...] hydrocodone 7.5 mg-acetaminophen 325 mg tablet RxNorm: 466737 1-2 Tablet(s) PO Q4H as needed 10/12/2017 10/26/2017 Inactive Synthroid 75 mcg tablet RxNorm: 495117 Tablet(s) TAKE 1 TABLET BY MOUTH DAILY 08/09/2017 03/06/2018 Active Generic For:*SYNTHROID 0.075MG TAB 11/14/2016 9:16: 33 AM N O T I C E Last quantity doesn't match original quantity hydrocodone 7.5 mg-acetaminophen 325 mg tablet RxNorm: 298101 1-2 Tablet(s) PO Q4H as needed 05/22/2017 06/20/2017 Inactive citalopram 20 mg tablet RxNorm: 932310 Tablet(s) TAKE ONE (1) TABLET BY MOUTH DAILY 05/09/2017 05/03/2018 Active amlodipine 10 mg tablet RxNorm: 168224 1 Tablet(s) PO daily 1 Tablet(s) PO daily 05/09/2017 09/26/2017 Inactive losartan 100 mg tablet RxNorm: 046656 1 Tablet(s) PO daily TAKE 1 TABLET BY MOUTH DAILY 05/09/2017 01/01/2018 Inactive Celebrex 200 mg capsule RxNorm: 448083 1 Capsule(s) PO BID 03/201703/18/2018 Active gabapentin 300 mg capsule RxNorm: 143379 1 Capsule(s) PO daily 03/24/2017 No Stop Date Active Celebrex 200 mg capsule RxNorm: 608296 1 Capsule(s) PO BID 1 Capsule(s) PO daily 03/24/2017 03/23/2017 Inactive amlodipine 10 mg tablet RxNorm: 434195 1 Tablet(s) PO daily 1 Tablet(s) PO daily 03/24/2017 05/08/2017 Inactive Lipitor 40 mg tablet RxNorm: 445200 Tablet(s) TAKE ONE TABLET BY MOUTH AT BEDTIME 02/14/2017 09/26/2017 Inactive hydrocodone 7.5 mg-acetaminophen 325 mg tablet RxNorm: 476517 1-2 Tablet(s) PO Q4H as needed 01/16/2017 02/14/2017 Inactive scopolamine 1.5 mg transdermal patch (1 mg over 3 days) RxNorm: 976627 1 Patch TD Q72H 11/25/2016 12/04/2016 Inactive scopolamine 1.5 mg transdermal patch (1 mg over 3 days) RxNorm: 041780 1 Patch TD Q72H 11/25/2016 11/24/2016 Inactive losartan 100 mg tablet RxNorm: 957938 1 Tablet(s) PO daily TAKE 1 TABLET BY MOUTH DAILY 11/14/2016 05/08/2017 Inactive Generic For:COZAAR 100MG TAB 05/17/2016 8:31: 51 AM Synthroid 75 mcg tablet RxNorm: 708473 TAKE 1 TABLET BY MOUTH DAILY 11/14/2016 06/11/2017 Inactive Generic For:*SYNTHROID 0.075MG TAB 11/14/2016 9:16:33 AM N O T I C E Last quantity doesn't match original quantity citalopram 20 mg tablet RxNorm: 984311 TAKE ONE (1) TABLET BY MOUTH DAILY 11/14/2016 05/08/2017 Inactive Generic For:CELEXA 20MG TAB 11/14/2016 8:30:49 AM N O T I C E Last quantity doesn't match original quantity prednisone 10 mg tablets in a dose pack RxNorm: 319199 1 Tablet(s) PO UD 09/30/2016 10/05/2016 Inactive 6-5-4-3-2-1 hydrocodone 7.5 mg-acetaminophen 325 mg tablet RxNorm: 358659 1-2 Tablet(s) PO Q4H as needed 09/20/2016 01/15/2017 Inactive amlodipine 5 mg tablet RxNorm: 168435 TAKE ONE TABLET BY MOUTH EVERY DAY 08/15/2016 03/23/2017 Inactive Generic For:NORVASC 5 MG TABLET 08/15/2016 3:56:26 PM N O T I C E Last quantity doesn't match original quantity Kenalog 40 mg/mL suspension for injection RxNorm: 5677992 1 Milliliter(s) Inj 08/08/2016 08/08/2016 Inactive prednisone 10 mg tablets in a dose pack RxNorm: 518314 1 Tablet(s) PO UD 08/08/2016 08/07/2016 Inactive prednisone 10 mg tablets in a dose pack RxNorm: 646535 1 Tablet(s) PO UD 08/08/2016 08/13/2016 Inactive 6-5-4-3-2-1 Diflucan 150 mg tablet RxNorm: 932096 1 Tablet(s) PO daily 09/201607/10/2016 Inactive Synthroid 75 mcg tablet RxNorm: 369302 TAKE 1 TABLET BY MOUTH DAILY 06/16/2016 11/13/2016 Inactive Generic For:*SYNTHROID 0.075MG TAB pt would like a 90 day supply N O T I C E Last quantity doesn't match original quantity hydrocodone 7.5 mg-acetaminophen 325 mg tablet RxNorm: 978153 1-2 Tablet(s) PO Q4H as needed 06/06/2016 09/19/2016 Inactive citalopram 20 mg tablet RxNorm: 833868 TAKE ONE (1) TABLET BY MOUTH DAILY 05/18/2016 11/13/2016 Inactive Generic For:CELEXA 20MG TAB 05/17/2016 8:32:02 AM Celebrex 200 mg capsule RxNorm: 192704 1 Capsule(s) PO daily 03/23/2017 Inactive losartan 100 mg tablet RxNorm: 748688 TAKE 1 TABLET BY MOUTH DAILY 05/17/2016 11/12/2016 Inactive Generic For:COZAAR 100MG TAB 05/17/2016 8:31:51 AM amlodipine 5 mg tablet RxNorm: 137113 1 Tablet(s) PO daily 08/14/2016 Inactive Cipro 500 mg tablet RxNorm: 719953 1 Tablet(s) PO BID 201605/03/2016 Inactive Cipro 500 mg tablet RxNorm: 886407 1 Tablet(s) PO BID 201605/13/2016 Inactive Diflucan 150 mg tablet RxNorm: 025070 1 Tablet(s) PO daily 05/01/2016 Inactive Monistat Soothing Care 1.2 % topical gel RxNorm: 5567415 1 Application TOP BID 03/07/2016 01/01/2018 Inactive Diflucan 150 mg tablet RxNorm: 614694 1 Tablet(s) PO daily 03/13/2016 Inactive Lipitor 40 mg tablet RxNorm: 365531 Tablet(s) TAKE ONE TABLET BY MOUTH AT BEDTIME 02/23/2016 02/13/2017 Inactive citalopram 20 mg tablet RxNorm: 990228 TAKE ONE (1) TABLET BY MOUTH DAILY 02/18/2016 05/17/2016 Inactive Generic For:CELEXA 20MG TAB refill request losartan 100 mg tablet RxNorm: 420361 Tablet(s) 1 Tablet, 1 time per Day 02/09/2016 05/16/2016 Inactive INSURANCE WILL NOT COVER [place] ANDREWS DENIED UNTIL OTHER FORMULARIES HAVE BEEN TRIED AND FAILED hydrocodone 7.5 mg-acetaminophen 325 mg tablet RxNorm: 577313 1-2 Tablet(s) PO Q4H as needed 02/03/2016 06/05/2016 Inactive Synthroid 75 mcg tablet RxNorm: 362191 Tablet(s) TAKE 1 TABLET BY MOUTH DAILY 01/19/2016 06/15/2016 Inactive Generic For:*SYNTHROID 0.075MG TAB 09/22/2014 10:00 :02 AM N O T I C E PRESCRIPTION PREVIOUSLY AUTHORIZED BY DOCTOR:SWATI BEY prednisone 10 mg tablets in a dose pack RxNorm: 925345 1 Tablet(s) PO UD 01/07/2016 02/22/2016 Inactive 6-5-4-3-2-1 amlodipine 10 mg tablet RxNorm: 813681 1 Tablet(s) PO daily 11/30/2016 Inactive citalopram 20 mg tablet RxNorm: 197771 TAKE ONE (1) TABLET BY MOUTH DAILY 11/17/2015 02/14/2016 Inactive Generic For:CELEXA 20MG TAB refill request hydrocodone 7.5 mg-acetaminophen 325 mg tablet RxNorm: 277469 1-2 Tablet(s) PO Q4H as needed 10/08/2015 02/02/2016 Inactive losartan 100 mg tablet RxNorm: 730435 Tablet(s) 1 Tablet, 1 time per Day 2015 02/07/2016 Inactive INSURANCE WILL NOT COVER [place] ANDREWS DENIED UNTIL OTHER FORMULARIES HAVE BEEN TRIED AND FAILED citalopram 20 mg tablet RxNorm: 428097 TAKE ONE (1) TABLET BY MOUTH DAILY 08/10/2015 11/07/2015 Inactive Generic For:CELEXA 20MG TAB 08/10/2015 8:59:58 AM Synthroid 75 mcg tablet RxNorm: 672431 Tablet(s) TAKE 1 TABLET BY MOUTH DAILY 05/26/2015 12/21/2015 Inactive Generic For:*SYNTHROID 0.075MG TAB 09/22/2014 10:00 :02 AM N O T I C E PRESCRIPTION PREVIOUSLY AUTHORIZED BY DOCTOR:SWATI BEY prednisone 20 mg tablet RxNorm: 725351 2 Tablet(s) PO daily 06/201505/30/2015 Inactive Lipitor 40 mg tablet RxNorm: 352792 TAKE ONE TABLET BY MOUTH AT BEDTIME 05/14/2015 02/07/2016 Inactive Generic For:LIPITOR 40MG TAB 05/13/2015 8:26:33 AM N O T I C E PRESCRIPTION PREVIOUSLY AUTHORIZED BY DOCTOR:SWATI BEY [phone] hydrocodone 7.5 mg-acetaminophen 325 mg tablet RxNorm: 237116 1-2 Tablet(s) PO Q4H as needed 05/11/2015 10/07/2015 Inactive Celebrex 200 mg capsule RxNorm: 872383 1 Capsule(s) PO daily 04/30/2016 Inactive citalopram 20 mg tablet RxNorm: 586931 TAKE ONE (1) TABLET BY MOUTH DAILY 04/27/2015 07/25/2015 Inactive Generic For:CELEXA 20MG TAB 04/26/2015 7:30:08 PM gabapentin 300 mg capsule RxNorm: 585608 1 Capsule(s) PO QID 04/02/2016 Inactive citalopram 20 mg tablet RxNorm: 046627 TAKE ONE (1) TABLET BY MOUTH DAILY 01/26/2015 04/25/2015 Inactive Generic For:CELEXA 20MG TAB 01/26/2015 8:40:11 AM losartan 100 mg tablet RxNorm: 163212 1 Tablet, 1 time per Day 01/26/2015 03/29/2015 Inactive INSURANCE WILL NOT COVER A[place] ANDREWS DENIED UNTIL OTHER FORMULARIES HAVE BEEN TRIED AND FAILED hydrocodone 7.5 mg-acetaminophen 325 mg tablet RxNorm: 423730 1-2 Tablet(s) PO Q4H as needed 01/23/2015 05/10/2015 Inactive Neurontin 100 mg capsule RxNorm: 642868 1 Capsule(s) PO TID 03/09/2015 Inactive Neurontin 100 mg capsule RxNorm: 466027 1 Capsule(s) PO TID 01/13/2015 Inactive Keflex 500 mg capsule RxNorm: 200264 1 Capsule(s) PO TID 201401/05/2015 Inactive Keflex 500 mg capsule RxNorm: 541495 1 Capsule(s) PO TID 201401/12/2015 Inactive hydrocodone 7.5 mg-acetaminophen 325 mg tablet RxNorm: 728789 1-2 Tablet(s) PO Q4H as needed 12/29/2014 01/22/2015 Inactive Duexis 800 mg-26.6 mg tablet RxNorm: 0732296 1 Tablet(s) PO TID as needed 12/19/2014 03/29/2015 Inactive Duexis 800 mg-26.6 mg tablet RxNorm: 1572527 1 Tablet(s) PO TID as needed 12/19/2014 12/18/2014 Inactive Kenalog 40 mg/mL suspension for injection RxNorm: 1312275 1 Milliliter(s) Inj 12/09/2014 12/09/2014 Inactive prednisone 10 mg tablets in a dose pack RxNorm: 167454 1 Tablet(s) PO UD 12/09/2014 12/14/2014 Inactive 6-5-4-3-2-1 amlodipine 10 mg tablet RxNorm: 260806 1 Tablet(s) PO daily 11/07/2015 Inactive citalopram 20 mg tablet RxNorm: 678627 TAKE ONE (1) TABLET BY MOUTH DAILY 10/23/2014 01/20/2015 Inactive Generic For:CELEXA 20MG TAB 10/23/2014 4:32:02 PM N O T I C E PRESCRIPTION PREVIOUSLY AUTHORIZED BY DOCTOR:SWATI BEY hydrocodone 7.5 mg-acetaminophen 325 mg tablet RxNorm: 387765 1-2 Tablet(s) PO Q4H as needed 10/22/2014 12/28/2014 Inactive Synthroid 75 mcg tablet RxNorm: 465864 TAKE 1 TABLET BY MOUTH DAILY 09/22/2014 04/19/2015 Inactive Generic For:*SYNTHROID 0.075MG TAB 09/22/2014 10:00:02 AM N O T I C E PRESCRIPTION PREVIOUSLY AUTHORIZED BY DOCTOR:SWATI BEY amlodipine 5 mg tablet RxNorm: 150423 1 Tablet(s) PO daily 07/201411/12/2014 Inactive Synthroid 75 mcg tablet RxNorm: 243740 1 Tablet(s) PO daily ecept a 1/2 tab on Monday07/11/2014 09/21/2014 Inactive Flonase Allergy Relief 50 mcg/actuation nasal spray, suspension RxNorm: 1 [place] NASAL BID 07/10/2014 12/06/2014 Inactive Aldactone 25 mg tablet RxNorm: 718296 1 Tablet(s) PO daily No Start Date Active Benicar 20 mg tablet RxNorm: 591552 1 Tablet(s) PO daily No Start Date Active chlorthalidone 25 mg tablet RxNorm: 404188 1 Tablet(s) PO daily No Start Date Active methotrexate sodium 2.5 mg tablet RxNorm: 647522 3 Tablet(s) PO weekly No Start Date 04/08/2015 Inactive gabapentin 300 mg capsule RxNorm: 848478 1 Capsule(s) PO TID No Start Date 04/08/2015 Inactive Plaquenil 200 mg tablet RxNorm: 938436 1 Tablet(s) PO BID No Start Date 05/22/2016 Inactive losartan 100 mg tablet RxNorm: 486714 1 Tablet(s) PO daily No Start Date 01/25/2015 Inactive Remicade intravenous RxNorm: 111671 intravenous No Start Date 03/23/2017 Inactive amlodipine 5 mg tablet RxNorm: 390119 1 Tablet(s) PO daily No Start Date 08/24/2014 Inactive Celebrex 200 mg capsule RxNorm: 807992 1 Capsule(s) PO daily No Start Date 10/16/2017 Inactive citalopram 20 mg tablet RxNorm: 146838 1 Tablet(s) PO daily No Start Date 10/22/2014 Inactive Synthroid 88 mcg tablet RxNorm: 348261 1 Tablet(s) PO daily No Start Date 07/09/2014 Inactive Arava 20 mg tablet RxNorm: 628297 1 Tablet(s) PO daily No Start Date 01/01/2018 Inactive Lipitor 40 mg tablet RxNorm: 037477 1 Tablet(s) PO daily No Start Date 05/13/2015 Inactive Synthroid 75 mcg tablet RxNorm: 798537 1 Tablet(s) PO daily No Start Date 07/10/2014 Inactive hydrocodone 7.5 mg-acetaminophen 325 mg tablet RxNorm: 507177 Tablet(s) PO as needed No Start Date 10/21/2014 Inactive Medication Administered Medication Codes Instructions Start Date Status Kenalog 40 mg/mL suspension for injection RxNorm: 3663933 1Milliliter 08/08/2016 No longer Active Kenalog 40 mg/mL suspension for injection RxNorm: 7288821 1Milliliter 12/09/2014 No longer Active Immunizations No [...] 31.1 pg 12/26/2017 Cbc With Differential Ord2 [place]% 9.2 % 12/26/2017 Cbc With Differential Ord2 [...] 1.53 K/ul 12/26/2017 Cbc With Differential Ord2 [place] ABS# 0.7 K/ul 12/26/2017 Cbc With Differential Ord2 Eos ABS# 0.1 K/ul 12/26/2017 Cbc With Differential Ord2 Baso ABS# 0.0 K/ul 12/26/2017 Free T4 Rvx435 FREE T4 0.93 ng/dL 12/26/2017 Comp Metabolic Cfy594 NA 135 mEq/L 12/26/2017 Comp Metabolic Vtl086 K 4.4 mEq/L 12/26/2017 Comp Metabolic Xlp368 CL 98 mEq/L 12/26/2017 Comp Metabolic Hym621 CO2 28.0 mEq/L 12/26/2017 Comp Metabolic Gar905 ANION GAP 13 12/26/2017 Comp Metabolic Sex867 GLUCOSE 92 mg/dL 12/26/2017 Comp Metabolic Dic637 Creat 1.1 mg/dL 12/26/2017 Comp Metabolic Mgo896 eGFR 52 ml/min/1.73m2 12/26/2017 Comp Metabolic Zen274 BUN 25 mg/dL 12/26/2017 Comp Metabolic Fqo943 B/C Ratio 22.7 Ratio 12/26/2017 Comp Metabolic Lzl537 CALCIUM 9.8 mg/dL 12/26/2017 Comp Metabolic Yru762 ALK PHOS 91 U/L 12/26/2017 Comp Metabolic Pkj636 AST(SGOT) 16 U/L 12/26/2017 Comp Metabolic Hnn854 ALT(SGPT) 12 U/L 12/26/2017 Comp Metabolic Nof975 BILI T 0.5 mg/dL 12/26/2017 Comp Metabolic Wbg183 ALBUMIN 4.3 g/dL 12/26/2017 Comp Metabolic Wfm170 TPRO 6.8 g/dL 12/26/2017 Comp Metabolic Fyy121 GLOB 2.5 g/dL 12/26/2017 Comp Metabolic Sun070 A/G Ratio 1.7 Ratio 12/26/2017 Comp Metabolic Nyh207 Osmo 274 mOsmo 12/26/2017 Urine Culture Ucult Preliminary NO Growth Day 1 06/29/2016 Urine Culture Ucult Complete NO Growth Day 2 06/29/2016 Culture Urine [id number] URINE CULTURE SEE NOTES 04/22/2016 Culture Urine [id number] Continued Results 04/22/2016 Urine Culture Ucult Complete >100,000 col/ml aerobic growth sent to ref lab 04/20/2016 Comp Metabolic Qbi641 NA 137 mEq/L 02/10/2016 Comp Metabolic Hvp793 K 4.1 mEq/L 02/10/2016 Comp Metabolic Kkn225 CL 102 mEq/L 02/10/2016 Comp Metabolic Pft052 CO2 28.0 mEq/L 02/10/2016 Comp Metabolic Czl438 ANION GAP 11 02/10/2016 Comp Metabolic Bgy611 GLUCOSE 104 mg/dL 02/10/2016 Comp Metabolic Dvy602 Creat 0.7 mg/dL 02/10/2016 Comp Metabolic Cml559 eGFR 83 ml/min/1.73m2 02/10/2016 Comp Metabolic Wac193 BUN 14 mg/dL 02/10/2016 Comp Metabolic Uji461 B/C Ratio 18.9 Ratio 02/10/2016 Comp Metabolic Paw464 CALCIUM 9.7 mg/dL 02/10/2016 Comp Metabolic Eqd125 ALK PHOS 121 U/L 02/10/2016 Comp Metabolic Qgf668 AST(SGOT) 19 U/L 02/10/2016 Comp Metabolic Gjv232 ALT(SGPT) 13 U/L 02/10/2016 Comp Metabolic Uth275 BILI T 0.5 mg/dL 02/10/2016 Comp Metabolic Zfi996 ALBUMIN 4.3 g/dL 02/10/2016 Comp Metabolic Bub743 TPRO 6.8 g/dL 02/10/2016 Comp Metabolic Kww301 GLOB 2.5 g/dL 02/10/2016 Comp Metabolic Rcl786 A/G Ratio 1.7 Ratio 02/10/2016 Comp Metabolic Xzn657 Osmo 275 mOsmo 02/10/2016 Lipid Ord30 CHOL 229 mg/dL 02/10/2016 Lipid Ord30 HDL 59.0 mg/dl 02/10/2016 Lipid Ord30 TRIG 252 mg/dL 02/10/2016 Lipid Ord30 LDL 120 mg/dL 02/10/2016 Lipid Ord30 C/HDL 3.9 Ratio 02/10/2016 Free T4 Yip985 FREE T4 0.87 ng/dL 02/10/2016 Tsh Ord6 [...] 29.2 pg 02/10/2016 Cbc With Differential Ord2 [place]% 18.6 % 02/10/2016 Cbc With Differential Ord2 [...] 1.81 K/ul 02/10/2016 Cbc With Differential Ord2 [place] ABS# 1.1 K/ul 02/10/2016 Cbc With Differential Ord2 Eos ABS# 0.1 K/ul 02/10/2016 Cbc With Differential Ord2 Baso ABS# 0.1 K/ul 02/10/2016 Tsh Ord6 hTSH II 0.85 uIU/mL 04/02/2015 Lipid Ord30 CHOL 207 mg/dL 04/02/2015 Lipid Ord30 HDL 68.0 mg/dl 04/02/2015 Lipid Ord30 TRIG 193 mg/dL 04/02/2015 Lipid Ord30 LDL 100 mg/dL 04/02/2015 Lipid Ord30 C/HDL 3.0 Ratio 04/02/2015 Free T4 Ith854 FREE T4 1.09 ng/dL 04/02/2015 Free T4 Qwa060 FREE T4 0.82 ng/dL 10/15/2014 Tsh Ord6 [...] Code : 8480-6 BMI: 32.4 Code : 96717-3 Heart Rate 1 : 80 bpm Height: 5'4" SpO2: 99% Waist Measure (cm): 104 cm Weight: 189 lbs 12/26/2017 Blood Pressure 1: 138/72 Code : 8480-6 BMI: 31.4 Code : 27690-9 Heart Rate 1 : 72 bpm Height: 5'4" SpO2: 96% Weight: 183 lbs 10/17/2017 Blood Pressure 1: 156/72 Code : 8480-6 BMI: 31.4 Code : 47074-8 Heart Rate 1 : 81 bpm Height: 5'4" SpO2: 98% Temperature: 36.5 (C) / 97.7 (F) Weight: 183 lbs 09/27/2017 Blood Pressure 1: 140/82 Code : 8480-6 BMI: 32.1 Code : 00238-3 Heart Rate 1 : 82 bpm Height: 5'4" SpO2: 98% Weight: 187 lbs 07/31/2017 Blood Pressure 1: 138/82 Code : 8480-6 Heart Rate 1: 87 bpm SpO2: 99% 03/24/2017 Blood Pressure 1: 146/86 Code : 8480-6 BMI: 31.8 Code : 54049-9 Heart Rate 1 : 79 bpm Height: 5'4" SpO2: 96% Temperature: 36.4 (C) / 97.5 (F) Weight: 185 lbs 08/30/2016 Blood Pressure 1: 142/88 Code : 8480-6 BMI: 31.6 Code : 81769-2 Heart Rate 1 : 80 bpm Height: 5'4" SpO2: 93% Weight: 184 lbs 08/08/2016 Blood Pressure 1: 142/76 Code : 8480-6 BMI: 29.9 Code : 48104-6 Heart Rate 1 : 80 bpm Height: 5'4" SpO2: 94% Weight: 174 lbs 06/27/2016 Blood Pressure 1: 156/72 Code : 8480-6 BMI: 30.6 Code : 37901-6 Heart Rate 1 : 78 bpm Height: 5'4" SpO2: 95% Weight: 178 lbs 05/23/2016 Blood Pressure 1: 146/84 Code : 8480-6 Heart Rate 1: 66 bpm Height: 5'4" SpO2: 94% 04/18/2016 Blood Pressure 1: 148/84 Code : 8480-6 BMI: 30.2 Code : 81460-5 Heart Rate 1 : 81 bpm Height: 5'4" SpO2: 97% Weight: 176 lbs 03/07/2016 Blood Pressure 1: 130/78 Code : 8480-6 BMI: 30.0 Code : 51581-1 Heart Rate 1 : 85 bpm Height: 5'4" SpO2: 96% Weight: 175 lbs 02/23/2016 Blood Pressure 1: 140/78 Code : 8480-6 BMI: 29.7 Code : 03818-4 Heart Rate 1 : 74 bpm Height: 5'4" SpO2: 95% Weight: 173 lbs 09/15/2015 Blood Pressure 1: 140/88 Code : 8480-6 BMI: 29.4 Code : 57226-9 Heart Rate 1 : 81 bpm Height: 5'4" SpO2: 97% Weight: 171 lbs 8 oz 05/26/2015 Blood Pressure 1: 150/80 Code : 8480-6 BMI: 31.6 Code : 21872-9 Heart Rate 1 : 70 bpm Height: 5'4" SpO2: 96% Weight: 184 lbs 04/09/2015 Blood Pressure 1: 136/74 Code : 8480-6 BMI: 31.4 Code : 58643-9 Heart Rate 1 : 91 bpm Height: 5'4" SpO2: 94% Weight: 183 lbs 03/30/2015 Blood Pressure 1: 130/72 Code : 8480-6 BMI: 30.9 Code : 17277-9 Heart Rate 1 : 80 bpm Height: 5'4" SpO2: 97% Waist Measure (cm): 102 cm Weight: 180 lbs 03/10/2015 Blood Pressure 1: 152/80 Code : 8480-6 BMI: 31.1 Code : 82561-8 Heart Rate 1 : 66 bpm Height: 5'4" SpO2: 98% Weight: 181 lbs 12/16/2014 Blood Pressure 1: 132/88 Code : 8480-6 Blood Pressure 1: 132/88 Code: 8480-6 Heart Rate 1: 88 bpm SpO2: 98% Weight: 183 lbs 12/09/2014 Blood Pressure 1: 140/82 Code : 8480-6 BMI: 31.2 Code : 06776-5 Heart Rate 1 : 105 bpm Height: 5'4" SpO2: 93% Weight: 182 lbs 11/13/2014 Blood Pressure 1: 148/88 Code : 8480-6 BMI: 31.8 Code : 56391-5 Heart Rate 1 : 54 bpm Height: 5'4" SpO2: 98% Weight: 185 lbs 07/10/2014 Blood Pressure 1: 144/96 Code : 8480-6 BMI: 31.4 Code : 88461-0 Heart Rate 1 : 99 bpm Height: [...] data Encounters Encounter Performer Location Codes Date ([id number]) [id number] EST. 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 PATIENT, LEVEL III Diagnosis: Otalgia, left ear[ICD10: H92.02] Diagnosis: Essential (primary) hypertension[ICD10: I10] Elizabet Falk MD, [facility] CPT-4: 46096 10/17/2017 ([id number]) 41579 EST. PATIENT, LEVEL IV Diagnosis: 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[ICD10: M05.741] Diagnosis: 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[ICD10: M05.742] Diagnosis: Atrophy of thyroid (acquired)[ICD10: E03.4] Diagnosis: Essential (primary) hypertension[ICD10: I10] Shannon Falk MD, [facility] CPT-4: 59920 09/27/2017 ([id number]) Miscellaneous no charge Diagnosis: Essential (primary) hypertension[ICD10: I10] Elizabet Falk MD, [facility] CPT-4: 05803 07/31/2017 ([id number]) 18701 EST. PATIENT, LEVEL IV Diagnosis: Essential (primary) hypertension[ICD10: I10] Diagnosis: Atrophy of thyroid (acquired)[ICD10: E03.4] Diagnosis: 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[ICD10: M05.741] Diagnosis: 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[ICD10: M05.742] Shannon Falk MD, [facility] CPT-4: 40200 03/24/2017 ([id number]) 78111 EST. PATIENT, LEVEL IV Diagnosis: Atrophy of thyroid (acquired)[ICD10: E03.4] Diagnosis: Pleurisy[ICD10: R09.1] Diagnosis: Essential (primary) hypertension[ICD10: I10] Shannon Falk MD, [facility] CPT-4: 04899 08/30/2016 ([id number]) 95473 EST. PATIENT, LEVEL III Diagnosis: Pleurisy[ICD10: R09.1] Elizabet Falk MD, [facility] CPT-4: 52379 08/08/2016 [id number] EST. PATIENT, LEVEL III Diagnosis: Dysuria[ICD10: R30.0] Diagnosis: Other pruritus[ICD10: L29.8] Shila Falk MD, [facility] CPT-4 : 33637 06/27/2016 ([id number]) 59430 EST. PATIENT, LEVEL III Diagnosis: Pain in left foot[ICD10: M79.672] Diagnosis: Pain in left toe(s)[ICD10: M79.675] Elizabet Falk MD, [facility] CPT-4: 32594 05/23/2016 [id number] EST. PATIENT, LEVEL III Diagnosis: Candidiasis of vulva and vagina[ICD10: B37.3] Diagnosis: Dysuria[ICD10: R30.0] Shila Falk MD, [facility] CPT-4: 70532 04/18/2016 78932 EST. PATIENT, LEVEL III Diagnosis: Other pruritus[ICD10: L29.8] Diagnosis: Candidiasis of vulva and vagina[ICD10: B37.3] Shila Falk MD, [facility] CPT-4: 70284 03/07/2016 ([id number]) 72803 EST. PATIENT, LEVEL IV Diagnosis: Essential (primary) hypertension[ICD10: I10] Diagnosis: Pain in left hip[ICD10: M25.552] Diagnosis: Pain in right hip[ICD10: M25.551] Diagnosis: Functional diarrhea[ICD10: K59.1] Diagnosis: Atrophy of thyroid (acquired)[ICD10: E03.4] Shannon Falk MD, [facility] CPT-4: 92320 02/23/2016 ([id number]) 02653 EST. PATIENT, LEVEL IV Diagnosis: Essential (primary) hypertension[ICD10: I10] Diagnosis: Mixed hyperlipidemia[ICD10: E78.2] Diagnosis: Major depressive disorder, single episode, unspecified[ICD10: F32.9] Shannon Falk MD, [facility] CPT-4: 70630 09/15/2015 [id number] EST. PATIENT, LEVEL III Diagnosis: Rash and other nonspecific skin eruption[ICD10: R21] Shila Falk MD, [facility] CPT-4: 95675 05/26/2015 ([id number]) 52274 EST. PATIENT, LEVEL IV Diagnosis: Essential (primary) hypertension[ICD10: I10] Diagnosis: Foot drop, left foot[ICD10: M21.372] Diagnosis: Sacroiliitis, not elsewhere classified[ICD10: M46.1] Shannon Falk MD, [facility] CPT-4: 76769 04/09/2015 ([id number]) 04059 EST. 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 PATIENT, LEVEL III Diagnosis: Trochanteric bursitis, left hip[ICD10: M70.62] Diagnosis: Iliotibial band syndrome, left leg[ICD10: M76.32] Diagnosis: Sciatica, left side[ICD10: M54.32] Elizabet Falk MD [facility] CPT-4: 46259 12/16/2014 ([id number]) 38821 EST. PATIENT, LEVEL III Diagnosis: Sciatica, left side[ICD10: M54.32] Diagnosis: Sacroiliitis, not elsewhere classified[ICD10: M46.1] Elizabet Falk MD, [facility] CPT-4: 40218 12/09/2014 ([id number]) [id number] EST. 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 01/02/2018 Patient Education: Patient Medication Summary Completed [...] control. 12/26/2017 [phone] (15 min) Moderate 12/26/2017 Patient Education: [...] plan. 10/17/2017 App[facility]ment[phone] [phone] [place] (15 min) Moderate 10/17/2017 [...] at home. 09/27/2017 [facility]ment: [phone] [place] (15 min) Moderate 09/27/2017 Patient Education: Patient Medication Summary Completed 09/27/2017 Care Plan: Referral Order SNOMED-CT : [id number] Pending 09/27/2017 App[facility]ment: [phone] [facility] [place] (15 min) Moderate 09/21/2017 Appointment: [...] twice daily. 03/24/2017 Appointment: Shannon Falk WPtel: [facility] (15 min) Moderate 03/24/2017 Patient Education: Patient Medication Summary Completed 03/24/2017 Appointment: Shannon Falk WPtel: [facility] ([facility] min) Moderate 03/16/2017 Appointment: Shannon Falk WPtel: [facility] (15 min) Moderate 03/01/2017 Visit Plan: [...] care. 08/30/2016 Appointment: Shannon Falk WPtel: [phone] [facility] (15 min) Moderate 08/30/2016 Patient Education: [...] of plan. 08/08/2016 Appointment: Elizabet Donaldson WPtel: [phone] (30 min) Complex 08/08/2016 Patient Education: Patient Medication Summary Completed 08/08/2016 Referral: Delia Bernstein WPtel: [address] [place], [place] [phone] Referral Initiated 08/01/2016 Visit Plan: Vaginal yeast [...] will refer. 06/27/2016 Appointment: Sh[facility] Del[phone] [facility] (30 min) Complex 06/27/2016 Patient Education: Patient Medication Summary Completed 06/27/2016 Care Plan: Referral Order SNOMED-CT : [id number] Pending 06/27/2016 Visit Plan: Left foot, 1st and 2nd toe pain-suspect fracture of left great toe-will obtain xrays and proceed as indicated. Patient verbalized understanding of plan. 05/23/2016 Appointment: Elizabet Donaldson WPtel: [phone] [phone] (15 min) Moderate 05/23/2016 Patient Education: Patient [...] start probiotics 02/23/2016 Appointment: Shannon Falk WPtel: [facility] ([facility] min) Moderate 02/23/2016 Patient Education: [...] Completed 09/15/2015 App[facility]ment: [phone] (15 min) Moderate 07/29/2015 Visit Plan: [...] - vitamin B12 liquid 2000mcg daily - [facility] sells the liquid b12, folic acid - take daily. metanex 1 capsule twice daily - call office if this seems to help decrease nerve pain increase the night-time dosing of gabapentin to 300mg in AM, Noon, 6pm and 10pm 04/09/2015 Appointment: [phone] [facility] [place] (15 min) Moderate 04/09/2015 Patient Education: Patient [...] in 2012. 03/10/2015 Appointment: Shannon Falk WPtel: [address] [place] [address] (15 min) Moderate 03/10/2015 Patient Education: Patient Medication Summary Completed 03/10/2015 Care Plan: SCREENINGMAMMOGRAPHYDIGITAL LOINC : 35061-1 Ordered 03/10/2015 Care Plan: Referral Order SNOMED-CT : [id number] Ordered 03/10/2015 Care Plan: Referral Order SNOMED-CT : [id number] Ordered 03/10/2015 Visit Plan: Left hip bursitis/Iliotibial [...] Patient Medication Summary Completed 12/16/2014 Patient Education: .Amazing charts lliotibial Band Rehabilitation exercises Completed 12/16/2014 Patient Education: .Amazing charts Exercise for Sciatica Completed 12/16/2014 Care Plan: Referral Order SNOMED-CT : [id number] Ordered 12/16/2014 Visit Plan: Sacroiliitis - back [...] Patient Medication Summary Completed 12/09/2014 Patient Education: .MissingLINK Exercise for Sciatica Completed 12/09/2014 Visit Plan: [...] brace. 11/13/2014 Appointment: [phone] [facility] Follow up 11/13/2014 Patient Education: Patient [...] IT WORSENS. 07/10/2014 Appointment: [phone] [place] ([place] New Patient 07/10/2014 Patient Education: Patient Medication Summary Completed 07/10/2014 Patient Education: Hypertension Completed 07/10/2014 Referral: Darci Spann Referral Relationship Referral: External, Ordering Provider Referral Appointment Requested Referral: External, Ordering Provider 09/28 Referral info faxed to [facility] 10/03 They tried calling her with an appt and she did not answer. Called patient and she will call them back. Appointment Requested Referral: External, Ordering Provider Referral Appointment Requested Ref[phone] [facility] Referral Initiated Referral: External, Ordering Provider Referral Completed Instructions Comment cataClau urmila gary - look up on [employer] . Hypertension - well controlled - continue [...] is finished, refill the 10mg pill at [facility]. carpal tunnel brace . Hypertension [...] Maria Ines recommended repeat scope in 2012. Nasal spray- use twice daily, one spray per nostril twice daily, after 30 minutes, rinse out nose with saline spray.. Use opposite hand per nostril to spray in the nasal steroid allergy spray. ALIGN PROBIOTIC - TAKE DAILY ([employer] OR [employer] -TWO OTHER PROBIOTICS THAT ARE HIGH QUALITY) [...] stomach pain. ALIGN PROBIOTIC - TAKE DAILY ([address] OR [employer] -TWO OTHER PROBIOTICS THAT ARE HIGH QUALITY) [...] surrogate. vitamin B12 liquid 2000mcg daily - [facility] sells the liquid b12 folic acid [...] - vitamin B12 liquid 2000mcg daily - [facility] sells the liquid b12, folic acid [...]
--- OUTSIDE RECORDS SUMMARY | 2018-03-17 11:29 | XMS REPORT | CCD ---
Author Author [facility] Organization [facility] Address [address] [place] [address] Phone Care Team Providers Care Quality Control Manager Name Role Phone PP Unavailable CCM Unavailable Summary Purpose Interface Exchange Insurance Providers Payer name Policy type / Coverage type Covered alliance party ID Effective Begin Date Effective End Date WPS Medicare Part B Medicare Part B [id number] Unknown [place] [employer] Life Insurance Medicare Part B [id number] Unknown Family history Brother Diagnosis Age At [...] Unknown 2 07/10/[address]: 209222666 Has never smoked or chewed tobacco 07/10/2014 Alcohol history Unknown occasionally drinks alcohol 07/10/2014 Allergies, Adverse Reactions, Alerts Substance Reaction Codes Entered Date Inactivated Date Status Remicade hives RxNorm: 188271 03/24/2017 No Inactive Date Active * NO KNOWN FOOD ALLERGIES Unknown 07/10/2014 No Inactive Date Active SULFA(SULFONAMIDE ANTIBIOTICS) Unknown 07/10/2014 No Inactive Date Active Past Medical History Illness Codes Condition Status Onset Date Resolved Date Atrophy of thyroid (acquired) ICD-9: 244.8 ICD-10: [...] ICD-9: 720.2 ICD-10: M46.1 Active 04/08/2015 Unknown Encounter for general adult medical examination without abnormal findings ICD-9: V70.0 ICD-10: Z00.00 Active 03/29/2015 Unknown Family history of malignant neoplasm of [...] Problems Condition Codes Effective Dates Condition Status Atrophy of thyroid (acquired) ICD-9: 244.8 ICD-10: [...] classified ICD-9: 720.2 ICD-10: M46.1 04/08/2015 Active Encounter for general adult medical examination without abnormal findings ICD-9: V70.0 ICD-10: Z00.00 03/29/2015 Active Family history of malignant neoplasm of [...] hydrocodone 7.5 mg-acetaminophen 325 mg tablet RxNorm: 202976 1-2 Tablet(s) PO Q4H as needed 10/12/2017 10/26/2017 Inactive Synthroid 75 mcg tablet RxNorm: 846012 Tablet(s) TAKE 1 TABLET BY MOUTH DAILY 08/09/2017 03/06/2018 Active Generic For:*SYNTHROID 0.075MG TAB 11/14/2016 9:16: 33 AM N O T I C E Last quantity doesn't match original quantity hydrocodone 7.5 mg-acetaminophen 325 mg tablet RxNorm: 227312 1-2 Tablet(s) PO Q4H as needed 05/22/2017 06/20/2017 Inactive citalopram 20 mg tablet RxNorm: 965087 Tablet(s) TAKE ONE (1) TABLET BY MOUTH DAILY 05/09/2017 05/03/2018 Active losartan 100 mg tablet RxNorm: 336999 1 Tablet(s) PO daily TAKE 1 TABLET BY MOUTH DAILY 05/09/2017 05/03/2018 Active amlodipine 10 mg tablet RxNorm: 232544 1 Tablet(s) PO daily 1 Tablet(s) PO daily 05/09/2017 09/26/2017 Inactive Celebrex 200 mg capsule RxNorm: 473093 1 Capsule(s) PO BID 03/201703/18/2018 Active gabapentin 300 mg capsule RxNorm: 145834 1 Capsule(s) PO daily 03/24/2017 No Stop Date Active Celebrex 200 mg capsule RxNorm: 728302 1 Capsule(s) PO BID 1 Capsule(s) PO daily 03/24/2017 03/23/2017 Inactive amlodipine 10 mg tablet RxNorm: 814932 1 Tablet(s) PO daily 1 Tablet(s) PO daily 03/24/2017 05/08/2017 Inactive Lipitor 40 mg tablet RxNorm: 666044 Tablet(s) TAKE ONE TABLET BY MOUTH AT BEDTIME 02/14/2017 09/26/2017 Inactive hydrocodone 7.5 mg-acetaminophen 325 mg tablet RxNorm: 582840 1-2 Tablet(s) PO Q4H as needed 01/16/2017 02/14/2017 Inactive scopolamine 1.5 mg transdermal patch (1 mg over 3 days) RxNorm: 293634 1 Patch TD Q72H 11/25/2016 12/04/2016 Inactive scopolamine 1.5 mg transdermal patch (1 mg over 3 days) RxNorm: 409571 1 Patch TD Q72H 11/25/2016 11/24/2016 Inactive losartan 100 mg tablet RxNorm: 494348 1 Tablet(s) PO daily TAKE 1 TABLET BY MOUTH DAILY 11/14/2016 05/08/2017 Inactive Generic For:COZAAR 100MG TAB 05/17/2016 8:31: 51 AM Synthroid 75 mcg tablet RxNorm: 152748 TAKE 1 TABLET BY MOUTH DAILY 11/14/2016 06/11/2017 Inactive Generic For:*SYNTHROID 0.075MG TAB 11/14/2016 9:16:33 AM N O T I C E Last quantity doesn't match original quantity citalopram 20 mg tablet RxNorm: 474789 TAKE ONE (1) TABLET BY MOUTH DAILY 11/14/2016 05/08/2017 Inactive Generic For:CELEXA 20MG TAB 11/14/2016 8:30:49 AM N O T I C E Last quantity doesn't match original quantity prednisone 10 mg tablets in a dose pack RxNorm: 011288 1 Tablet(s) PO UD 09/30/2016 10/05/2016 Inactive 6-5-4-3-2-1 hydrocodone 7.5 mg-acetaminophen 325 mg tablet RxNorm: 026320 1-2 Tablet(s) PO Q4H as needed 09/20/2016 01/15/2017 Inactive amlodipine 5 mg tablet RxNorm: 037269 TAKE ONE TABLET BY MOUTH EVERY DAY 08/15/2016 03/23/2017 Inactive Generic For:NORVASC 5 MG TABLET 08/15/2016 3:56:26 PM N O T I C E Last quantity doesn't match original quantity Kenalog 40 mg/mL suspension for injection RxNorm: 7862125 1 Milliliter(s) Inj 08/08/2016 08/08/2016 Inactive prednisone 10 mg tablets in a dose pack RxNorm: 662652 1 Tablet(s) PO UD 08/08/2016 08/07/2016 Inactive prednisone 10 mg tablets in a dose pack RxNorm: 634033 1 Tablet(s) PO UD 08/08/2016 08/13/2016 Inactive 6-5-4-3-2-1 Diflucan 150 mg tablet RxNorm: 991579 1 Tablet(s) PO daily 09/201607/10/2016 Inactive Synthroid 75 mcg tablet RxNorm: 937482 TAKE 1 TABLET BY MOUTH DAILY 06/16/2016 11/13/2016 Inactive Generic For:*SYNTHROID 0.075MG TAB pt would like a 90 day supply N O T I C E Last quantity doesn't match original quantity hydrocodone 7.5 mg-acetaminophen 325 mg tablet RxNorm: 361663 1-2 Tablet(s) PO Q4H as needed 06/06/2016 09/19/2016 Inactive citalopram 20 mg tablet RxNorm: 576777 TAKE ONE (1) TABLET BY MOUTH DAILY 05/18/2016 11/13/2016 Inactive Generic For:CELEXA 20MG TAB 05/17/2016 8:32:02 AM Celebrex 200 mg capsule RxNorm: 168501 1 Capsule(s) PO daily 03/23/2017 Inactive losartan 100 mg tablet RxNorm: 355855 TAKE 1 TABLET BY MOUTH DAILY 05/17/2016 11/12/2016 Inactive Generic For:COZAAR 100MG TAB 05/17/2016 8:31:51 AM amlodipine 5 mg tablet RxNorm: 045475 1 Tablet(s) PO daily 08/14/2016 Inactive Cipro 500 mg tablet RxNorm: 466927 1 Tablet(s) PO BID 201605/03/2016 Inactive Cipro 500 mg tablet RxNorm: 717545 1 Tablet(s) PO BID 201605/13/2016 Inactive Diflucan 150 mg tablet RxNorm: 149774 1 Tablet(s) PO daily 05/01/2016 Inactive Monistat Soothing Care 1.2 % topical gel RxNorm: 6231051 1 Application TOP BID 03/07/2016 No Stop Date Active Diflucan 150 mg tablet RxNorm: 272219 1 Tablet(s) PO daily 03/13/2016 Inactive Lipitor 40 mg tablet RxNorm: 174674 Tablet(s) TAKE ONE TABLET BY MOUTH AT BEDTIME 02/23/2016 02/13/2017 Inactive citalopram 20 mg tablet RxNorm: 677031 TAKE ONE (1) TABLET BY MOUTH DAILY 02/18/2016 05/17/2016 Inactive Generic For:CELEXA 20MG TAB refill request losartan 100 mg tablet RxNorm: 895574 Tablet(s) 1 Tablet, 1 time per Day 02/09/2016 05/16/2016 Inactive INSURANCE WILL NOT COVER ADELA ANDREWS DENIED UNTIL OTHER FORMULARIES HAVE BEEN TRIED AND FAILED hydrocodone 7.5 mg-acetaminophen 325 mg tablet RxNorm: 609041 1-2 Tablet(s) PO Q4H as needed 02/03/2016 06/05/2016 Inactive Synthroid 75 mcg tablet RxNorm: 360437 Tablet(s) TAKE 1 TABLET BY MOUTH DAILY 01/19/2016 06/15/2016 Inactive Generic For:*SYNTHROID 0.075MG TAB 09/22/2014 10:00 :02 AM N O T I C E PRESCRIPTION PREVIOUSLY AUTHORIZED BY DOCTOR:SWATI BEY prednisone 10 mg tablets in a dose pack RxNorm: 041149 1 Tablet(s) PO UD 01/07/2016 02/22/2016 Inactive 6-5-4-3-2-1 amlodipine 10 mg tablet RxNorm: 241190 1 Tablet(s) PO daily 11/30/2016 Inactive citalopram 20 mg tablet RxNorm: 833992 TAKE ONE (1) TABLET BY MOUTH DAILY 11/17/2015 02/14/2016 Inactive Generic For:CELEXA 20MG TAB refill request hydrocodone 7.5 mg-acetaminophen 325 mg tablet RxNorm: 659209 1-2 Tablet(s) PO Q4H as needed 10/08/2015 02/02/2016 Inactive losartan 100 mg tablet RxNorm: 884159 Tablet(s) 1 Tablet, 1 time per Day 2015 02/07/2016 Inactive INSURANCE WILL NOT COVER ADELA ANDREWS DENIED UNTIL OTHER FORMULARIES HAVE BEEN TRIED AND FAILED citalopram 20 mg tablet RxNorm: 673512 TAKE ONE (1) TABLET BY MOUTH DAILY 08/10/2015 11/07/2015 Inactive Generic For:CELEXA 20MG TAB 08/10/2015 8:59:58 AM Synthroid 75 mcg tablet RxNorm: 847017 Tablet(s) TAKE 1 TABLET BY MOUTH DAILY 05/26/2015 12/21/2015 Inactive Generic For:*SYNTHROID 0.075MG TAB 09/22/2014 10:00 :02 AM N O T I C E PRESCRIPTION PREVIOUSLY AUTHORIZED BY DOCTOR:SWATI BEY prednisone 20 mg tablet RxNorm: 357944 2 Tablet(s) PO daily 06/201505/30/2015 Inactive Lipitor 40 mg tablet RxNorm: 876178 TAKE ONE TABLET BY MOUTH AT BEDTIME 05/14/2015 02/07/2016 Inactive Generic For:LIPITOR 40MG TAB 05/13/2015 8:26:33 AM N O T I C E PRESCRIPTION PREVIOUSLY AUTHORIZED BY DOCTOR:SWATI BEY hydrocodone 7.5 mg-acetaminophen 325 mg tablet RxNorm: 529178 1-2 Tablet(s) PO Q4H as needed 05/11/2015 10/07/2015 Inactive Celebrex 200 mg capsule RxNorm: 490889 1 Capsule(s) PO daily 04/30/2016 Inactive citalopram 20 mg tablet RxNorm: 751624 TAKE ONE (1) TABLET BY MOUTH DAILY 04/27/2015 07/25/2015 Inactive Generic For:CELEXA 20MG TAB 04/26/2015 7:30:08 PM gabapentin 300 mg capsule RxNorm: 727039 1 Capsule(s) PO QID 04/02/2016 Inactive citalopram 20 mg tablet RxNorm: 472703 TAKE ONE (1) TABLET BY MOUTH DAILY 01/26/2015 04/25/2015 Inactive Generic For:CELEXA 20MG TAB 01/26/2015 8:40:11 AM losartan 100 mg tablet RxNorm: 938148 1 Tablet, 1 time per Day 01/26/2015 03/29/2015 Inactive INSURANCE WILL NOT COVER ADELA ANDREWS DENIED UNTIL OTHER FORMULARIES HAVE BEEN TRIED AND FAILED hydrocodone 7.5 mg-acetaminophen 325 mg tablet RxNorm: 929766 1-2 Tablet(s) PO Q4H as needed 01/23/2015 05/10/2015 Inactive Neurontin 100 mg capsule RxNorm: 871030 1 Capsule(s) PO TID 03/09/2015 Inactive Neurontin 100 mg capsule RxNorm: 333781 1 Capsule(s) PO TID 01/13/2015 Inactive Keflex 500 mg capsule RxNorm: 600831 1 Capsule(s) PO TID 201401/05/2015 Inactive Keflex 500 mg capsule RxNorm: 706754 1 Capsule(s) PO TID 201401/12/2015 Inactive hydrocodone 7.5 mg-acetaminophen 325 mg tablet RxNorm: 810937 1-2 Tablet(s) PO Q4H as needed 12/29/2014 01/22/2015 Inactive Duexis 800 mg-26.6 mg tablet RxNorm: 7923650 1 Tablet(s) PO TID as needed 12/19/2014 03/29/2015 Inactive Duexis 800 mg-26.6 mg tablet RxNorm: 4479080 1 Tablet(s) PO TID as needed 12/19/2014 12/18/2014 Inactive Kenalog 40 mg/mL suspension for injection RxNorm: 7356661 1 Milliliter(s) Inj 12/09/2014 12/09/2014 Inactive prednisone 10 mg tablets in a dose pack RxNorm: 095430 1 Tablet(s) PO UD 12/09/2014 12/14/2014 Inactive 6-5-4-3-2-1 amlodipine 10 mg tablet RxNorm: 726323 1 Tablet(s) PO daily 11/07/2015 Inactive citalopram 20 mg tablet RxNorm: 890175 TAKE ONE (1) TABLET BY MOUTH DAILY 10/23/2014 01/20/2015 Inactive Generic For:CELEXA 20MG TAB 10/23/2014 4:32:02 PM N O T I C E PRESCRIPTION PREVIOUSLY AUTHORIZED BY DOCTOR:SWATI BEY hydrocodone 7.5 mg-acetaminophen 325 mg tablet RxNorm: 691464 1-2 Tablet(s) PO Q4H as needed 10/22/2014 12/28/2014 Inactive Synthroid 75 mcg tablet RxNorm: 646006 TAKE 1 TABLET BY MOUTH DAILY 09/22/2014 04/19/2015 Inactive Generic For:*SYNTHROID 0.075MG TAB 09/22/2014 10:00:02 AM N O T I C E PRESCRIPTION PREVIOUSLY AUTHORIZED BY DOCTOR:SWATI BEY [phone] amlodipine 5 mg tablet RxNorm: 496120 1 Tablet(s) PO daily 07/201411/12/2014 Inactive Synthroid 75 mcg tablet RxNorm: 374664 1 Tablet(s) PO daily ecept a 1/2 tab on Monday07/11/2014 09/21/2014 Inactive Flonase Allergy Relief 50 mcg/actuation nasal spray, suspension RxNorm: 1 [place] NASAL BID 07/10/2014 12/06/2014 Inactive Aldactone 25 mg tablet RxNorm: 028358 1 Tablet(s) PO daily No Start Date Active Benicar 20 mg tablet RxNorm: 284898 1 Tablet(s) PO daily No Start Date Active Arava 20 mg tablet RxNorm: 977595 1 Tablet(s) PO daily No Start Date Active chlorthalidone 25 mg tablet RxNorm: 686961 1 Tablet(s) PO daily No Start Date Active methotrexate sodium 2.5 mg tablet RxNorm: 780742 3 Tablet(s) PO weekly No Start Date 04/08/2015 Inactive gabapentin 300 mg capsule RxNorm: 032570 1 Capsule(s) PO TID No Start Date 04/08/2015 Inactive Plaquenil 200 mg tablet RxNorm: 073003 1 Tablet(s) PO BID No Start Date 05/22/2016 Inactive losartan 100 mg tablet RxNorm: 425418 1 Tablet(s) PO daily No Start Date 01/25/2015 Inactive Remicade intravenous RxNorm: 008290 intravenous No Start Date 03/23/2017 Inactive amlodipine 5 mg tablet RxNorm: 101270 1 Tablet(s) PO daily No Start Date 08/24/2014 Inactive Celebrex 200 mg capsule RxNorm: 153098 1 Capsule(s) PO daily No Start Date 10/16/2017 Inactive citalopram 20 mg tablet RxNorm: 319439 1 Tablet(s) PO daily No Start Date 10/22/2014 Inactive Synthroid 88 mcg tablet RxNorm: 406278 1 Tablet(s) PO daily No Start Date 07/09/2014 Inactive Lipitor 40 mg tablet RxNorm: 462586 1 Tablet(s) PO daily No Start Date 05/13/2015 Inactive Synthroid 75 mcg tablet RxNorm: 842616 1 Tablet(s) PO daily No Start Date 07/10/2014 Inactive hydrocodone 7.5 mg-acetaminophen 325 mg tablet RxNorm: 787943 Tablet(s) PO as needed No Start Date 10/21/2014 Inactive Medication Administered Medication Codes Instructions Start Date Status Kenalog 40 mg/mL suspension for injection RxNorm: 1309676 1Milliliter 08/08/2016 No longer Active Kenalog 40 mg/mL suspension for injection RxNorm: 8766397 1Milliliter 12/09/2014 No longer Active Immunizations No Immunization data Assessments Condition Codes Effective Dates Rheumatoid arthritis with rheumatoid factor of left [...] left foot ICD-10: M21.372 ICD-9: 736.79 04/09/2015 Encounter for general adult medical examination without abnormal findings ICD-10: Z00.00 ICD-9: V70.0 03/30/2015 Sciatica, left side ICD-10: M54.32 ICD-9: 724.3 [...] Visit Reason For Visit Effective Dates Notes knee pain 12/26/2017 earache 10/17/2017 hypertension 09/27/2017 [...] 31.1 pg 12/26/2017 Cbc With Differential Ord2 [place]% 9.2 % 12/26/2017 Cbc With Differential Ord2 [...] 1.53 K/ul 12/26/2017 Cbc With Differential Ord2 [place] ABS# 0.7 K/ul 12/26/2017 Cbc With Differential Ord2 Eos ABS# 0.1 K/ul 12/26/2017 Cbc With Differential Ord2 Baso ABS# 0.0 K/ul 12/26/2017 Free T4 Kdq721 FREE T4 0.93 ng/dL 12/26/2017 Comp Metabolic Cwh761 NA 135 mEq/L 12/26/2017 Comp Metabolic Ykk838 K 4.4 mEq/L 12/26/2017 Comp Metabolic Fif521 CL 98 mEq/L 12/26/2017 Comp Metabolic Vpw028 CO2 28.0 mEq/L 12/26/2017 Comp Metabolic Mrv368 ANION GAP 13 12/26/2017 Comp Metabolic Szr298 GLUCOSE 92 mg/dL 12/26/2017 Comp Metabolic Npj896 Creat 1.1 mg/dL 12/26/2017 Comp Metabolic Tzh401 eGFR 52 ml/min/1.73m2 12/26/2017 Comp Metabolic Wcz372 BUN 25 mg/dL 12/26/2017 Comp Metabolic Pud193 B/C Ratio 22.7 Ratio 12/26/2017 Comp Metabolic Gfq613 CALCIUM 9.8 mg/dL 12/26/2017 Comp Metabolic Tgf355 ALK PHOS 91 U/L 12/26/2017 Comp Metabolic Zsa542 AST(SGOT) 16 U/L 12/26/2017 Comp Metabolic Rzw328 ALT(SGPT) 12 U/L 12/26/2017 Comp Metabolic Fzp214 BILI T 0.5 mg/dL 12/26/2017 Comp Metabolic Dpj877 ALBUMIN 4.3 g/dL 12/26/2017 Comp Metabolic Zuy595 TPRO 6.8 g/dL 12/26/2017 Comp Metabolic Uex721 GLOB 2.5 g/dL 12/26/2017 Comp Metabolic Cpp785 A/G Ratio 1.7 Ratio 12/26/2017 Comp Metabolic Zws505 Osmo 274 mOsmo 12/26/2017 Urine Culture Ucult Preliminary NO Growth Day 1 06/29/2016 Urine Culture Ucult Complete NO Growth Day 2 06/29/2016 Culture Urine [id number] URINE CULTURE SEE NOTES 04/22/2016 Culture Urine [id number] Continued Results 04/22/2016 Urine Culture Ucult Complete >100,000 col/ml aerobic growth sent to ref lab 04/20/2016 Comp Metabolic Zlf413 NA 137 mEq/L 02/10/2016 Comp Metabolic Plq619 K 4.1 mEq/L 02/10/2016 Comp Metabolic Jji172 CL 102 mEq/L 02/10/2016 Comp Metabolic Nbo512 CO2 28.0 mEq/L 02/10/2016 Comp Metabolic Rsm477 ANION GAP 11 02/10/2016 Comp Metabolic Hen946 GLUCOSE 104 mg/dL 02/10/2016 Comp Metabolic Gwc617 Creat 0.7 mg/dL 02/10/2016 Comp Metabolic Xri752 eGFR 83 ml/min/1.73m2 02/10/2016 Comp Metabolic Bvy193 BUN 14 mg/dL 02/10/2016 Comp Metabolic Vvp664 B/C Ratio 18.9 Ratio 02/10/2016 Comp Metabolic Qcx748 CALCIUM 9.7 mg/dL 02/10/2016 Comp Metabolic Ngd428 ALK PHOS 121 U/L 02/10/2016 Comp Metabolic Jqj432 AST(SGOT) 19 U/L 02/10/2016 Comp Metabolic Rfr127 ALT(SGPT) 13 U/L 02/10/2016 Comp Metabolic Bic201 BILI T 0.5 mg/dL 02/10/2016 Comp Metabolic Fow215 ALBUMIN 4.3 g/dL 02/10/2016 Comp Metabolic Rom464 TPRO 6.8 g/dL 02/10/2016 Comp Metabolic Fsd684 GLOB 2.5 g/dL 02/10/2016 Comp Metabolic Ddk824 A/G Ratio 1.7 Ratio 02/10/2016 Comp Metabolic Vyy873 Osmo 275 mOsmo 02/10/2016 Lipid Ord30 CHOL 229 mg/dL 02/10/2016 Lipid Ord30 HDL 59.0 mg/dl 02/10/2016 Lipid Ord30 TRIG 252 mg/dL 02/10/2016 Lipid Ord30 LDL 120 mg/dL 02/10/2016 Lipid Ord30 C/HDL 3.9 Ratio 02/10/2016 Free T4 Jyf072 FREE T4 0.87 ng/dL 02/10/2016 Tsh Ord6 [...] 29.2 pg 02/10/2016 Cbc With Differential Ord2 [place]% 18.6 % 02/10/2016 Cbc With Differential Ord2 [...] 1.81 K/ul 02/10/2016 Cbc With Differential Ord2 [place] ABS# 1.1 K/ul 02/10/2016 Cbc With Differential Ord2 Eos ABS# 0.1 K/ul 02/10/2016 Cbc With Differential Ord2 Baso ABS# 0.1 K/ul 02/10/2016 Tsh Ord6 hTSH II 0.85 uIU/mL 04/02/2015 Lipid Ord30 CHOL 207 mg/dL 04/02/2015 Lipid Ord30 HDL 68.0 mg/dl 04/02/2015 Lipid Ord30 TRIG 193 mg/dL 04/02/2015 Lipid Ord30 LDL 100 mg/dL 04/02/2015 Lipid Ord30 C/HDL 3.0 Ratio 04/02/2015 Free T4 Agv670 FREE T4 1.09 ng/dL 04/02/2015 Free T4 Jld283 FREE T4 0.82 ng/dL 10/15/2014 Tsh Ord6 [...] hyperactive 07/10/2014 None Procedures Procedure Codes Date TRIAMCINOLONE ACET INJ NOS CPT-4: J3301 08/08/2016 [...] CPT-4: G8553 11/13/2014 Vital Signs Date Vital 12/26/2017 Blood Pressure 1: 138/72 Code : 8480-6 BMI: 31.4 Code : 08921-6 Heart Rate 1 : 72 bpm Height: 5'4" SpO2: 96% Weight: 183 lbs 10/17/2017 Blood Pressure 1: 156/72 Code : 8480-6 BMI: 31.4 Code : 84776-6 Heart Rate 1 : 81 bpm Height: 5'4" SpO2: 98% Temperature: 36.5 (C) / 97.7 (F) Weight: 183 lbs 09/27/2017 Blood Pressure 1: 140/82 Code : 8480-6 BMI: 32.1 Code : 52021-3 Heart Rate 1 : 82 bpm Height: 5'4" SpO2: 98% Weight: 187 lbs 07/31/2017 Blood Pressure 1: 138/82 Code : 8480-6 Heart Rate 1: 87 bpm SpO2: 99% 03/24/2017 Blood Pressure 1: 146/86 Code : 8480-6 BMI: 31.8 Code : 93736-7 Heart Rate 1 : 79 bpm Height: 5'4" SpO2: 96% Temperature: 36.4 (C) / 97.5 (F) Weight: 185 lbs 08/30/2016 Blood Pressure 1: 142/88 Code : 8480-6 BMI: 31.6 Code : 31639-1 Heart Rate 1 : 80 bpm Height: 5'4" SpO2: 93% Weight: 184 lbs 08/08/2016 Blood Pressure 1: 142/76 Code : 8480-6 BMI: 29.9 Code : 45575-6 Heart Rate 1 : 80 bpm Height: 5'4" SpO2: 94% Weight: 174 lbs 06/27/2016 Blood Pressure 1: 156/72 Code : 8480-6 BMI: 30.6 Code : 15803-2 Heart Rate 1 : 78 bpm Height: 5'4" SpO2: 95% Weight: 178 lbs 05/23/2016 Blood Pressure 1: 146/84 Code : 8480-6 Heart Rate 1: 66 bpm Height: 5'4" SpO2: 94% 04/18/2016 Blood Pressure 1: 148/84 Code : 8480-6 BMI: 30.2 Code : 10909-2 Heart Rate 1 : 81 bpm Height: 5'4" SpO2: 97% Weight: 176 lbs 03/07/2016 Blood Pressure 1: 130/78 Code : 8480-6 BMI: 30.0 Code : 66136-4 Heart Rate 1 : 85 bpm Height: 5'4" SpO2: 96% Weight: 175 lbs 02/23/2016 Blood Pressure 1: 140/78 Code : 8480-6 BMI: 29.7 Code : 18031-5 Heart Rate 1 : 74 bpm Height: 5'4" SpO2: 95% Weight: 173 lbs 09/15/2015 Blood Pressure 1: 140/88 Code : 8480-6 BMI: 29.4 Code : 51308-6 Heart Rate 1 : 81 bpm Height: 5'4" SpO2: 97% Weight: 171 lbs 8 oz 05/26/2015 Blood Pressure 1: 150/80 Code : 8480-6 BMI: 31.6 Code : 84102-8 Heart Rate 1 : 70 bpm Height: 5'4" SpO2: 96% Weight: 184 lbs 04/09/2015 Blood Pressure 1: 136/74 Code : 8480-6 BMI: 31.4 Code : 77095-2 Heart Rate 1 : 91 bpm Height: 5'4" SpO2: 94% Weight: 183 lbs 03/30/2015 Blood Pressure 1: 130/72 Code : 8480-6 BMI: 30.9 Code : 05660-7 Heart Rate 1 : 80 bpm Height: 5'4" SpO2: 97% Waist Measure (cm): 102 cm Weight: 180 lbs 03/10/2015 Blood Pressure 1: 152/80 Code : 8480-6 BMI: 31.1 Code : 68697-5 Heart Rate 1 : 66 bpm Height: 5'4" SpO2: 98% Weight: 181 lbs 12/16/2014 Blood Pressure 1: 132/88 Code : 8480-6 Blood Pressure 1: 132/88 Code: 8480-6 Heart Rate 1: 88 bpm SpO2: 98% Weight: 183 lbs 12/09/2014 Blood Pressure 1: 140/82 Code : 8480-6 BMI: 31.2 Code : 56047-8 Heart Rate 1 : 105 bpm Height: 5'4" SpO2: 93% Weight: 182 lbs 11/13/2014 Blood Pressure 1: 148/88 Code : 8480-6 BMI: 31.8 Code : 10738-1 Heart Rate 1 : 54 bpm Height: 5'4" SpO2: 98% Weight: 185 lbs 07/10/2014 Blood Pressure 1: 144/96 Code : 8480-6 BMI: 31.4 Code : 22057-1 Heart Rate 1 : 99 bpm Height: 5'4" SpO2: 98% Temperature: 36.8 (C) / 98.2 (F) Weight: 183 lbs Functional Status No Functional Status data History of Present Illness Symptom Name Status Result Effective Date Notes knee pain Location on the right 12/26/2017 [...] data Encounters Encounter Performer Location Codes Date ([id number]) [id number] EST. 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 PATIENT, LEVEL III Diagnosis: Otalgia, left ear[ICD10: H92.02] Diagnosis: Essential (primary) hypertension[ICD10: I10] [facility] CPT-4: 53573 10/17/[id number]) 91489 EST. 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 PATIENT, LEVEL IV Diagnosis: Atrophy of thyroid (acquired)[ICD10: E03.4] Diagnosis: Pleurisy[ICD10: R09.1] Diagnosis: Essential (primary) hypertension[ICD10: I10] [facility] MD, [facility] CPT-4: 13126 08/30/2016 ([id number]) 02999 EST. PATIENT, LEVEL III Diagnosis: Pleurisy[ICD10: R09.1] Elizabet Falk MD, [facility] CPT-4: 06494 08/08/2016 [id number] EST. PATIENT, LEVEL III Diagnosis: Dysuria[ICD10: R30.0] Diagnosis: Other pruritus[ICD10: L29.8] Shila aFlk MD, [facility] CPT-4 : 15380 06/27/2016 ([id number]) 13395 EST. PATIENT, LEVEL III Diagnosis: Pain in left foot[ICD10: M79.672] Diagnosis: Pain in left toe(s)[ICD10: M79.675] Elizabet Falk MD, [facility] CPT-4: 17391 05/23/2016 [id number] EST. PATIENT, LEVEL III Diagnosis: Candidiasis of vulva and vagina[ICD10: B37.3] Diagnosis: Dysuria[ICD10: R30.0] Shila Falk MD, [facility] CPT-4: 50114 04/18/2016 [id number] EST. PATIENT, LEVEL III Diagnosis: Other pruritus[ICD10: L29.8] Diagnosis: Candidiasis of vulva and vagina[ICD10: B37.3] Shila Falk MD, [facility] CPT-4: 24770 03/07/2016 ([id number]) 70158 EST. PATIENT, LEVEL IV Diagnosis: Essential (primary) hypertension[ICD10: I10] Diagnosis: Pain in left hip[ICD10: M25.552] Diagnosis: Pain in right hip[ICD10: M25.551] Diagnosis: Functional diarrhea[ICD10: K59.1] Diagnosis: Atrophy of thyroid (acquired)[ICD10: E03.4] Shannon Falk MD, [facility] CPT-4: 51887 02/23/2016 ([id number]) [id number] EST. PATIENT, LEVEL IV Diagnosis: Essential (primary) hypertension[ICD10: I10] Diagnosis: Mixed hyperlipidemia[ICD10: E78.2] Diagnosis: Major depressive disorder, single episode, unspecified[ICD10: F32.9] Shannon Falk MD, [facility] CPT-4: 69099 09/15/2015 [id number] EST. PATIENT, LEVEL III Diagnosis: Rash and other nonspecific skin eruption[ICD10: R21] Shila Falk MD, [facility] CPT-4: 02341 05/26/2015 ([id number]) [id number] EST. PATIENT, LEVEL IV Diagnosis: Essential (primary) hypertension[ICD10: I10] Diagnosis: Foot drop, left foot[ICD10: M21.372] Diagnosis: Sacroiliitis, not elsewhere classified[ICD10: M46.1] Shannon Falk MD, [facility] CPT-4: 86011 04/09/2015 ([id number]) 02349 EST. 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 PATIENT, LEVEL III Diagnosis: Trochanteric bursitis, left hip[ICD10: M70.62] Diagnosis: Iliotibial band syndrome, left leg[ICD10: M76.32] Diagnosis: Sciatica, left side[ICD10: M54.32] Elizabet Falk MD, [facility] CPT-4: 35685 12/16/2014 ([id number]) 31663 EST. PATIENT, LEVEL III Diagnosis: Sciatica, left side[ICD10: M54.32] Diagnosis: Sacroiliitis, not elsewhere classified[ICD10: M46.1] Elizabet Falk MD, [facility] CPT-4: 89911 12/09/2014 ([id number] 03242 EST. 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 Gurba - we will send her labs to [...] based on previous levels of control. 12/26/2017 Patient Education: Patient Medication Summary Completed [...] plan. 10/17/2017 Appointment: Elizabet Donaldson WPtel: [phone] [phone] (15 min) Moderate 10/17/2017 Patient Education: Patient [...] home. 09/27/2017 [phone] ([facility]) Moderate 09/27/2017 Patient Education: Patient Medication Summary Completed 09/27/2017 Care Plan: Referral Order SNOMED-CT : [id number] Pending 09/27/2017 Appointment: Shannon Falk WPtel: [phone] [facility] (15 min) Moderate 09/21/2017 Appointment: Nurse Visit [...] twice daily. 03/24/2017 Appointment: [facility] [phone] [facility] (15 min) Moderate 03/24/2017 Patient Education: Patient Medication Summary Completed 03/24/2017 [facility]ment: [phone] [facility] ([facility] min) Moderate 03/16/2017 Appointment: Shannon Falk WPtel: [phone] [facility] (15 min) Moderate 03/01/2017 Visit Plan: [...] supportive care. 08/30/2016 Appointment: Shannon Falk WPtel: [facility] (15 min) Moderate 08/30/2016 Patient Education: [...] of plan. 08/08/2016 Appointment: Elizabet Donaldson WPtel: [address] [place], [place] [phone] [place] (30 min) Complex 08/08/2016 Patient Education: Patient Medication Summary Completed 08/08/2016 Referral: Delia Bernstein WPtel: [phone] [place], [place] [id number] Referral Initiated 08/01/2016 Visit Plan: Vaginal yeast [...] will refer. 06/27/2016 App[facility]ment[phone] [place] (30 min) Complex 06/27/2016 Patient Education: Patient Medication Summary Completed 06/27/2016 Care Plan: Referral Order SNOMED-CT : [id number] Pending 06/27/2016 Visit Plan: Left foot, 1st and 2nd toe pain-suspect fracture of left great toe-will obtain xrays and proceed as indicated. Patient verbalized understanding of plan. 05/23/2016 Appointment: [facility]onaldson [facility] [phone] [phone] [place] (15 min) Moderate 05/23/2016 Patient Education: [...] start probiotics 02/23/2016 Appointment: [facility] [phone] [facility] [place] (15 min) Moderate 02/23/2016 Patient [...] Summary Completed 09/15/2015 Appointment: Shannon Falk WPtel: [address] [place], [place] [id number] (15 min) Moderate 07/29/2015 Visit Plan: Rash [...] - vitamin B12 liquid 2000mcg daily - [facility] sells the liquid b12, folic acid - take daily. metanex 1 capsule twice daily - call office if this seems to help decrease nerve pain increase the night-time dosing of gabapentin to 300mg in AM, Noon, 6pm and 10pm 04/09/2015 Appointment: [facility] [phone] [facility] (15 min) Moderate 04/09/2015 Patient Education: [...] 2012. 03/10/2015 Appointment: [facility] [phone] [facility] (15 min) Moderate 03/10/2015 Patient Education: Patient Medication Summary Completed 03/10/2015 Care Plan: SCREENINGMAMMOGRAPHYDIGITAL LOINC : 43939-3 Ordered 03/10/2015 Care Plan: Referral Order SNOMED-CT : [id number] Ordered 03/10/2015 Care Plan: Referral Order SNOMED-CT : [id number] Ordered 03/10/2015 Visit Plan: Left hip bursitis/Iliotibial [...] 12/16/2014 Care Plan: Referral Order SNOMED-CT : [id number] Ordered 12/16/2014 Visit Plan: Sacroiliitis - back [...] brace. 11/13/2014 Appointment: [facility]el[facility] [phone] [facility] [place] Follow up 11/13/2014 Patient Education: Patient Medication [...] stomach pain. ALIGN PROBIOTIC - TAKE DAILY ([employer] OR [employer] -TWO OTHER PROBIOTICS THAT ARE HIGH QUALITY) CIPROFLOXACIN TO BE TAKEN IF NEEDED IF THE DIARRHEA DOES NOT IMPROVE OR IF IT WORSENS. 07/10/2014 Appointment: [facility]el[facility] [phone] [facility] [place] ([place]) New Patient 07/10/2014 Patient Education: Patient Medication Summary Completed 07/10/2014 Patient Education: Hypertension Completed 07/10/2014 Referral: Darci Spann Referral Relationship Referral: External, Ordering Provider Referral Appointment Requested Referral: External, Ordering Provider 09/28 Referral info faxed to [facility] 10/03 They tried calling her with an appt and she did not answer. Called patient and she will call them back. Appointment Requested Referral: External, Ordering Provider Referral Appointment Requested Referral: Delia Bernstein WPtel: [address] [place], [place] [address] [place] Referral Initiated Referral: External, Ordering Provider Referral Completed Instructions Comment luanne vega - look up on FRAMED . Hypertension - well controlled - continue [...] - her insurance company has denied her Xlarmen and she is hopeful that the appeal [...] is finished, refill the 10mg pill at [facility]. carpal tunnel brace . Hypertension - [...] ALIGN PROBIOTIC - TAKE DAILY ([employer] OR [employer] [facility] -TWO OTHER PROBIOTICS THAT ARE [...] ALIGN PROBIOTIC - TAKE DAILY ([employer] OR [employer] [facility] -TWO OTHER PROBIOTICS THAT ARE [...] as indicated. Patient verbalized understanding of plan. vitamin B12 liquid 2000mcg daily - [facility] sells the liquid b12 folic acid - [...] - vitamin B12 liquid 2000mcg daily - [facility] sells the liquid b12, folic acid - [...]
--- OUTSIDE RECORDS SUMMARY | 2018-03-17 11:32 | XMS REPORT | CCD ---
Author Author [facility] Organization [facility] Address [address] [place] [address] Phone Care Team Providers Care Optimization Analyst Name Role Phone PP Unavailable CCM Unavailable Summary Purpose Interface Exchange Insurance Providers Payer name Policy type / Coverage type Covered green party ID Effective Begin Date Effective End Date WPS Medicare Part B Medicare Part B [id number] 2014 Unknown [employer] [employer] Medicare Part B [id number] Unknown Family history Brother Diagnosis Age At Onset Alcoholism Unknown Mother Diagnosis Age At Onset Hyperlipidemia [...] Unknown 2 07/10/[address]: [id number] Has never smoked or chewed tobacco 07/10/2014 Alcohol history Unknown occasionally drinks alcohol 07/10/2014 Allergies, Adverse Reactions, Alerts Substance Reaction Codes Entered Date Inactivated Date Status Remicade hives RxNorm: 678097 03/24/2017 No Inactive Date Active * NO KNOWN FOOD ALLERGIES Unknown 07/10/2014 No Inactive Date Active SULFA(SULFONAMIDE ANTIBIOTICS) Unknown 07/10/2014 No Inactive Date Active Past Medical History Illness Codes Condition Status Onset Date Resolved Date Atrophy of thyroid (acquired) ICD-9: 244.8 ICD-10: E03.4 Active 02/23/2016 Unknown Essential (primary) hypertension ICD-9: 401.9 ICD-10: I10 Active 07/09/2014 Unknown 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 ICD-9 : 714.0 ICD-10: M05.742 Active 03/24/2017 Unknown 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 ICD-9 : 714.0 ICD-10: M05.741 Active 03/24/2017 Unknown Pleurisy ICD-9: 511.0 ICD-10: R09.1 Active [...] hypertension ICD-9: 401.9 ICD-10: I10 07/09/2014 Active 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 ICD-9 : 714.0 ICD-10: M05.742 03/24/2017 Active 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 ICD-9 : 714.0 ICD-10: M05.741 03/24/2017 Active Pleurisy ICD-9: 511.0 ICD-10: R09.1 08/08/2016 [...] hydrocodone 7.5 mg-acetaminophen 325 mg tablet RxNorm: 833998 1-2 Tablet(s) PO Q4H as needed 10/12/2017 10/26/2017 Active Synthroid 75 mcg tablet RxNorm: 543758 Tablet(s) TAKE 1 TABLET BY MOUTH DAILY 08/09/2017 03/06/2018 Active Generic For:*SYNTHROID 0.075MG TAB 11/14/2016 9:16: 33 AM N O T I C E Last quantity doesn't match original quantity hydrocodone 7.5 mg-acetaminophen 325 mg tablet RxNorm: 272858 1-2 Tablet(s) PO Q4H as needed 05/22/2017 06/20/2017 Inactive citalopram 20 mg tablet RxNorm: 597231 Tablet(s) TAKE ONE (1) TABLET BY MOUTH DAILY 05/09/2017 05/03/2018 Active losartan 100 mg tablet RxNorm: 293514 1 Tablet(s) PO daily TAKE 1 TABLET BY MOUTH DAILY 05/09/2017 05/03/2018 Active amlodipine 10 mg tablet RxNorm: 443227 1 Tablet(s) PO daily 1 Tablet(s) PO daily 05/09/2017 09/26/2017 Inactive Celebrex 200 mg capsule RxNorm: 021886 1 Capsule(s) PO BID 03/201703/18/2018 Active gabapentin 300 mg capsule RxNorm: 966353 1 Capsule(s) PO daily 03/24/2017 No Stop Date Active Celebrex 200 mg capsule RxNorm: 008491 1 Capsule(s) PO BID 1 Capsule(s) PO daily 03/24/2017 03/23/2017 Inactive amlodipine 10 mg tablet RxNorm: 491164 1 Tablet(s) PO daily 1 Tablet(s) PO daily 03/24/2017 05/08/2017 Inactive Lipitor 40 mg tablet RxNorm: 116950 Tablet(s) TAKE ONE TABLET BY MOUTH AT BEDTIME 02/14/2017 09/26/2017 Inactive hydrocodone 7.5 mg-acetaminophen 325 mg tablet RxNorm: 713237 1-2 Tablet(s) PO Q4H as needed 01/16/2017 02/14/2017 Inactive scopolamine 1.5 mg transdermal patch (1 mg over 3 days) RxNorm: 774135 1 Patch TD Q72H 11/25/2016 12/04/2016 Inactive scopolamine 1.5 mg transdermal patch (1 mg over 3 days) RxNorm: 784987 1 Patch TD Q72H 11/25/2016 11/24/2016 Inactive losartan 100 mg tablet RxNorm: 672271 1 Tablet(s) PO daily TAKE 1 TABLET BY MOUTH DAILY 11/14/2016 05/08/2017 Inactive Generic For:COZAAR 100MG TAB 05/17/2016 8:31: 51 AM Synthroid 75 mcg tablet RxNorm: 625020 TAKE 1 TABLET BY MOUTH DAILY 11/14/2016 06/11/2017 Inactive Generic For:*SYNTHROID 0.075MG TAB 11/14/2016 9:16:33 AM N O T I C E Last quantity doesn't match original quantity citalopram 20 mg tablet RxNorm: 097317 TAKE ONE (1) TABLET BY MOUTH DAILY 11/14/2016 05/08/2017 Inactive Generic For:CELEXA 20MG TAB 11/14/2016 8:30:49 AM N O T I C E Last quantity doesn't match original quantity prednisone 10 mg tablets in a dose pack RxNorm: 229972 1 Tablet(s) PO UD 09/30/2016 10/05/2016 Inactive 6-5-4-3-2-1 hydrocodone 7.5 mg-acetaminophen 325 mg tablet RxNorm: 833634 1-2 Tablet(s) PO Q4H as needed 09/20/2016 01/15/2017 Inactive amlodipine 5 mg tablet RxNorm: 805029 TAKE ONE TABLET BY MOUTH EVERY DAY 08/15/2016 03/23/2017 Inactive Generic For:NORVASC 5 MG TABLET 08/15/2016 3:56:26 PM N O T I C E Last quantity doesn't match original quantity Kenalog 40 mg/mL suspension for injection RxNorm: 3053822 1 Milliliter(s) Inj 08/08/2016 08/08/2016 Inactive prednisone 10 mg tablets in a dose pack RxNorm: 322279 1 Tablet(s) PO UD 08/08/2016 08/07/2016 Inactive prednisone 10 mg tablets in a dose pack RxNorm: 627282 1 Tablet(s) PO UD 08/08/2016 08/13/2016 Inactive 6-5-4-3-2-1 Diflucan 150 mg tablet RxNorm: 290173 1 Tablet(s) PO daily 09/201607/10/2016 Inactive Synthroid 75 mcg tablet RxNorm: 678226 TAKE 1 TABLET BY MOUTH DAILY 06/16/2016 11/13/2016 Inactive Generic For:*SYNTHROID 0.075MG TAB pt would like a 90 day supply N O T I C E Last quantity doesn't match original quantity hydrocodone 7.5 mg-acetaminophen 325 mg tablet RxNorm: 358992 1-2 Tablet(s) PO Q4H as needed 06/06/2016 09/19/2016 Inactive citalopram 20 mg tablet RxNorm: 586525 TAKE ONE (1) TABLET BY MOUTH DAILY 05/18/2016 11/13/2016 Inactive Generic For:CELEXA 20MG TAB 05/17/2016 8:32:02 AM Celebrex 200 mg capsule RxNorm: 429896 1 Capsule(s) PO daily 03/23/2017 Inactive losartan 100 mg tablet RxNorm: 257404 TAKE 1 TABLET BY MOUTH DAILY 05/17/2016 11/12/2016 Inactive Generic For:COZAAR 100MG TAB 05/17/2016 8:31:51 AM amlodipine 5 mg tablet RxNorm: 582605 1 Tablet(s) PO daily 08/14/2016 Inactive Cipro 500 mg tablet RxNorm: 387998 1 Tablet(s) PO BID 201605/03/2016 Inactive Cipro 500 mg tablet RxNorm: 563430 1 Tablet(s) PO BID 201605/13/2016 Inactive Diflucan 150 mg tablet RxNorm: 279164 1 Tablet(s) PO daily 05/01/2016 Inactive Monistat Soothing Care 1.2 % topical gel RxNorm: 4240646 1 Application TOP BID 03/07/2016 No Stop Date Active Diflucan 150 mg tablet RxNorm: 001325 1 Tablet(s) PO daily 03/13/2016 Inactive Lipitor 40 mg tablet RxNorm: 045912 Tablet(s) TAKE ONE TABLET BY MOUTH AT BEDTIME 02/23/2016 02/13/2017 Inactive citalopram 20 mg tablet RxNorm: 251711 TAKE ONE (1) TABLET BY MOUTH DAILY 02/18/2016 05/17/2016 Inactive Generic For:CELEXA 20MG TAB refill request losartan 100 mg tablet RxNorm: 361162 Tablet(s) 1 Tablet, 1 time per Day 02/09/2016 05/16/2016 Inactive INSURANCE WILL NOT COVER ADELA ANDREWS DENIED UNTIL OTHER FORMULARIES HAVE BEEN TRIED AND FAILED hydrocodone 7.5 mg-acetaminophen 325 mg tablet RxNorm: 863883 1-2 Tablet(s) PO Q4H as needed 02/03/2016 06/05/2016 Inactive Synthroid 75 mcg tablet RxNorm: 345794 Tablet(s) TAKE 1 TABLET BY MOUTH DAILY 01/19/2016 06/15/2016 Inactive Generic For:*SYNTHROID 0.075MG TAB 09/22/2014 10:00 :02 AM N O T I C E PRESCRIPTION PREVIOUSLY AUTHORIZED BY DOCTOR:SWATI BEY prednisone 10 mg tablets in a dose pack RxNorm: 671862 1 Tablet(s) PO UD 01/07/2016 02/22/2016 Inactive 6-5-4-3-2-1 amlodipine 10 mg tablet RxNorm: 925827 1 Tablet(s) PO daily 11/30/2016 Inactive citalopram 20 mg tablet RxNorm: 725895 TAKE ONE (1) TABLET BY MOUTH DAILY 11/17/2015 02/14/2016 Inactive Generic For:CELEXA 20MG TAB refill request hydrocodone 7.5 mg-acetaminophen 325 mg tablet RxNorm: 918822 1-2 Tablet(s) PO Q4H as needed 10/08/2015 02/02/2016 Inactive losartan 100 mg tablet RxNorm: 288228 Tablet(s) 1 Tablet, 1 time per Day 2015 02/07/2016 Inactive INSURANCE WILL NOT COVER ADELA ANDREWS DENIED UNTIL OTHER FORMULARIES HAVE BEEN TRIED AND FAILED citalopram 20 mg tablet RxNorm: 294690 TAKE ONE (1) TABLET BY MOUTH DAILY 08/10/2015 11/07/2015 Inactive Generic For:CELEXA 20MG TAB 08/10/2015 8:59:58 AM Synthroid 75 mcg tablet RxNorm: 746059 Tablet(s) TAKE 1 TABLET BY MOUTH DAILY 05/26/2015 12/21/2015 Inactive Generic For:*SYNTHROID 0.075MG TAB 09/22/2014 10:00 :02 AM N O T I C E PRESCRIPTION PREVIOUSLY AUTHORIZED BY DOCTOR:SWATI BEY prednisone 20 mg tablet RxNorm: 605204 2 Tablet(s) PO daily 06/201505/30/2015 Inactive Lipitor 40 mg tablet RxNorm: 851255 TAKE ONE TABLET BY MOUTH AT BEDTIME 05/14/2015 02/07/2016 Inactive Generic For:LIPITOR 40MG TAB 05/13/2015 8:26:33 AM N O T I C E PRESCRIPTION PREVIOUSLY AUTHORIZED BY DOCTOR:SWATI BEY hydrocodone 7.5 mg-acetaminophen 325 mg tablet RxNorm: 204639 1-2 Tablet(s) PO Q4H as needed 05/11/2015 10/07/2015 Inactive Celebrex 200 mg capsule RxNorm: 149291 1 Capsule(s) PO daily 04/30/2016 Inactive citalopram 20 mg tablet RxNorm: 114664 TAKE ONE (1) TABLET BY MOUTH DAILY 04/27/2015 07/25/2015 Inactive Generic For:CELEXA 20MG TAB 04/26/2015 7:30:08 PM gabapentin 300 mg capsule RxNorm: 282229 1 Capsule(s) PO QID 04/02/2016 Inactive citalopram 20 mg tablet RxNorm: 967427 TAKE ONE (1) TABLET BY MOUTH DAILY 01/26/2015 04/25/2015 Inactive Generic For:CELEXA 20MG TAB 01/26/2015 8:40:11 AM losartan 100 mg tablet RxNorm: 222827 1 Tablet, 1 time per Day 01/26/2015 03/29/2015 Inactive INSURANCE WILL NOT COVER ADELA ANDREWS UNTIL OTHER FORMULARIES HAVE BEEN TRIED AND FAILED hydrocodone 7.5 mg-acetaminophen 325 mg tablet RxNorm: 068000 1-2 Tablet(s) PO Q4H as needed 01/23/2015 05/10/2015 Inactive Neurontin 100 mg capsule RxNorm: 133225 1 Capsule(s) PO TID 03/09/2015 Inactive Neurontin 100 mg capsule RxNorm: 563705 1 Capsule(s) PO TID 01/13/2015 Inactive Keflex 500 mg capsule RxNorm: 803014 1 Capsule(s) PO TID 201401/05/2015 Inactive Keflex 500 mg capsule RxNorm: 128729 1 Capsule(s) PO TID 201401/12/2015 Inactive hydrocodone 7.5 mg-acetaminophen 325 mg tablet RxNorm: 592618 1-2 Tablet(s) PO Q4H as needed 12/29/2014 01/22/2015 Inactive Duexis 800 mg-26.6 mg tablet RxNorm: 6918872 1 Tablet(s) PO TID as needed 12/19/2014 03/29/2015 Inactive Duexis 800 mg-26.6 mg tablet RxNorm: 2871437 1 Tablet(s) PO TID as needed 12/19/2014 12/18/2014 Inactive Kenalog 40 mg/mL suspension for injection RxNorm: 7851536 1 Milliliter(s) Inj 12/09/2014 12/09/2014 Inactive prednisone 10 mg tablets in a dose pack RxNorm: 856988 1 Tablet(s) PO UD 12/09/2014 12/14/2014 Inactive 6-5-4-3-2-1 amlodipine 10 mg tablet RxNorm: 947641 1 Tablet(s) PO daily 11/07/2015 Inactive citalopram 20 mg tablet RxNorm: 637251 TAKE ONE (1) TABLET BY MOUTH DAILY 10/23/2014 01/20/2015 Inactive Generic For:CELEXA 20MG TAB 10/23/2014 4:32:02 PM N O T I C E PRESCRIPTION PREVIOUSLY AUTHORIZED BY DOCTOR:SWATI BEY hydrocodone 7.5 mg-acetaminophen 325 mg tablet RxNorm: 676372 1-2 Tablet(s) PO Q4H as needed 10/22/2014 12/28/2014 Inactive Synthroid 75 mcg tablet RxNorm: 050543 TAKE 1 TABLET BY MOUTH DAILY 09/22/2014 04/19/2015 Inactive Generic For:*SYNTHROID 0.075MG TAB 09/22/2014 10:00:02 AM N O T I C E PRESCRIPTION PREVIOUSLY AUTHORIZED BY DOCTOR:SWATI BEY [phone] amlodipine 5 mg tablet RxNorm: 432928 1 Tablet(s) PO daily 07/201411/12/2014 Inactive Synthroid 75 mcg tablet RxNorm: 762286 1 Tablet(s) PO daily ecept a 1/2 tab on Monday07/11/2014 09/21/2014 Inactive Flonase Allergy Relief 50 mcg/actuation nasal spray, suspension RxNorm: 1 [place] NASAL BID 07/10/2014 12/06/2014 Inactive Benicar 20 mg tablet RxNorm: 017449 1 Tablet(s) PO daily No Start Date Active Celebrex 200 mg capsule RxNorm: 254238 1 Capsule(s) PO daily No Start Date 05/06/2015 Inactive Arava 20 mg tablet RxNorm: 615891 1 Tablet(s) PO daily No Start Date Active chlorthalidone 25 mg tablet RxNorm: 530429 1 Tablet(s) PO daily No Start Date Active methotrexate sodium 2.5 mg tablet RxNorm: 369378 3 Tablet(s) PO weekly No Start Date 04/08/2015 Inactive gabapentin 300 mg capsule RxNorm: 075227 1 Capsule(s) PO TID No Start Date 04/08/2015 Inactive Plaquenil 200 mg tablet RxNorm: 550625 1 Tablet(s) PO BID No Start Date 05/22/2016 Inactive losartan 100 mg tablet RxNorm: 857301 1 Tablet(s) PO daily No Start Date 01/25/2015 Inactive Remicade intravenous RxNorm: 857933 intravenous No Start Date 03/23/2017 Inactive amlodipine 5 mg tablet RxNorm: 912221 1 Tablet(s) PO daily No Start Date 08/24/2014 Inactive citalopram 20 mg tablet RxNorm: 638646 1 Tablet(s) PO daily No Start Date 10/22/2014 Inactive Synthroid 88 mcg tablet RxNorm: 714698 1 Tablet(s) PO daily No Start Date 07/09/2014 Inactive Lipitor 40 mg tablet RxNorm: 777006 1 Tablet(s) PO daily No Start Date 05/13/2015 Inactive Synthroid 75 mcg tablet RxNorm: 079089 1 Tablet(s) PO daily No Start Date 07/10/2014 Inactive hydrocodone 7.5 mg-acetaminophen 325 mg tablet RxNorm: 214925 Tablet(s) PO as needed No Start Date 10/21/2014 Inactive Medication Administered Medication Codes Instructions Start Date Status Kenalog 40 mg/mL suspension for injection RxNorm: 2504698 1Milliliter 08/08/2016 No longer Active Kenalog 40 mg/mL suspension for injection RxNorm: 9810741 1Milliliter 12/09/2014 No longer Active Immunizations No Immunization data Assessments Condition Codes Effective Dates 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 ICD-10: M05.742 ICD-9: 714.0 09/27/2017 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 ICD-10: M05.741 ICD-9: 714.0 09/27/2017 Essential (primary) hypertension ICD-10: I10 ICD-9: 401.9 09/27/2017 Atrophy of thyroid (acquired) ICD-10: E03.4 ICD-9: 244.8 09/27/2017 Pleurisy ICD-10: R09.1 ICD-9: 511.0 08/30/2016 Other [...] Visit Reason For Visit Effective Dates Notes hypertension 09/27/2017 pleurisy 03/24/2017 pleurisy 08/30/2016 pleurisy 08/08/2016 urinary urgency 06/27/2016 foot pain 05/23/2016 left great toe vaginal discharge 04/18/2016 pelvic pain 03/07/2016 hip pain 02/23/2016 hip pain 09/15/2015 rash 05/26/2015 sciatica 04/09/2015 Annual Medicare Wellness Exam 03/30/2015 sciatica 03/10/2015 sciatica 12/16/2014 sciatica 12/09/2014 blood pressure followup 11/13/2014 cough 07/10/2014 Results Observation Observation Code Item Item Code Result Date Urine Culture Ucult Preliminary NO Growth Day 1 06/29/2016 Urine Culture Ucult Complete NO Growth Day 2 06/29/2016 Culture Urine [id number] URINE CULTURE SEE NOTES 04/22/2016 Culture Urine [id number] Continued Results 04/22/2016 Urine Culture Ucult Complete >100,000 col/ml aerobic growth sent to ref lab 04/20/2016 Comp Metabolic Kuk769 NA 137 mEq/L 02/10/2016 Comp Metabolic Lfo874 K 4.1 mEq/L 02/10/2016 Comp Metabolic Yvp537 CL 102 mEq/L 02/10/2016 Comp Metabolic Iat235 CO2 28.0 mEq/L 02/10/2016 Comp Metabolic Qpi741 ANION GAP 11 02/10/2016 Comp Metabolic Ekn506 GLUCOSE 104 mg/dL 02/10/2016 Comp Metabolic Iww469 Creat 0.7 mg/dL 02/10/2016 Comp Metabolic Bbd978 eGFR 83 ml/min/1.73m2 02/10/2016 Comp Metabolic Gpa920 BUN 14 mg/dL 02/10/2016 Comp Metabolic Pvf345 B/C Ratio 18.9 Ratio 02/10/2016 Comp Metabolic Sal630 CALCIUM 9.7 mg/dL 02/10/2016 Comp Metabolic Kwo937 ALK PHOS 121 U/L 02/10/2016 Comp Metabolic Ayc470 AST(SGOT) 19 U/L 02/10/2016 Comp Metabolic Whx736 ALT(SGPT) 13 U/L 02/10/2016 Comp Metabolic Xth902 BILI T 0.5 mg/dL 02/10/2016 Comp Metabolic Ogh411 ALBUMIN 4.3 g/dL 02/10/2016 Comp Metabolic Edj149 TPRO 6.8 g/dL 02/10/2016 Comp Metabolic Wdz759 GLOB 2.5 g/dL 02/10/2016 Comp Metabolic Xok115 A/G Ratio 1.7 Ratio 02/10/2016 Comp Metabolic Laq586 Osmo 275 mOsmo 02/10/2016 Lipid Ord30 CHOL 229 mg/dL 02/10/2016 Lipid Ord30 HDL 59.0 mg/dl 02/10/2016 Lipid Ord30 TRIG 252 mg/dL 02/10/2016 Lipid Ord30 LDL 120 mg/dL 02/10/2016 Lipid Ord30 C/HDL 3.9 Ratio 02/10/2016 Free T4 Xyc585 FREE T4 0.87 ng/dL 02/10/2016 Tsh Ord6 hTSH II 0.79 uIU/mL 02/10/2016 Cbc With Differential Ord2 WBC 5.85 K/ul 02/10/2016 Cbc With Differential Ord2 RBC 4.39 M/ul 02/10/2016 Cbc With Differential Ord2 HGB 12.8 g/dl 02/10/2016 Cbc With Differential Ord2 HCT 40.1 % 02/10/2016 Cbc With Differential Ord2 Neut% 47.1 % 02/10/2016 Cbc With Differential Ord2 MCV 91.3 fl 02/10/2016 Cbc With Differential Ord2 Lymph% 30.9 % 02/10/2016 Cbc With Differential Ord2 MCH 29.2 pg 02/10/2016 Cbc With Differential Ord2 [place]% 18.6 % 02/10/2016 Cbc With Differential Ord2 Eos% 2.4 % 02/10/2016 Cbc With Differential Ord2 MCHC 31.9 pg 02/10/2016 Cbc With Differential Ord2 Baso% 1.0 % 02/10/2016 Cbc With Differential Ord2 PLT 291 K/ul 02/10/2016 Cbc With Differential Ord2 RDW 14.0 % 02/10/2016 Cbc With Differential Ord2 Neut ABS# 2.75 K/ul 02/10/2016 Cbc With Differential Ord2 Lymph ABS# 1.81 K/ul 02/10/2016 Cbc With Differential Ord2 [place] ABS# 1.1 K/ul 02/10/2016 Cbc With Differential Ord2 Eos ABS# 0.1 K/ul 02/10/2016 Cbc With Differential Ord2 Baso ABS# 0.1 K/ul 02/10/2016 Tsh Ord6 hTSH II 0.85 uIU/mL 04/02/2015 Lipid Ord30 CHOL 207 mg/dL 04/02/2015 Lipid Ord30 HDL 68.0 mg/dl 04/02/2015 Lipid Ord30 TRIG 193 mg/dL 04/02/2015 Lipid Ord30 LDL 100 mg/dL 04/02/2015 Lipid Ord30 C/HDL 3.0 Ratio 04/02/2015 Free T4 Bww594 FREE T4 1.09 ng/dL 04/02/2015 Free T4 Foc578 FREE T4 0.82 ng/dL 10/15/2014 Tsh Ord6 [...] 1995 Ears/Nose/Throat oral cavity/pharynx/larynx Overall: hypopharynx benign 09/27/2017 [...] affect 03/24/2017 None Full Exam - General 1995 Musculoskeletal digits and nails DIPs: first 03/24/2017 [...] CPT-4: G8553 11/13/2014 Vital Signs Date Vital 09/27/2017 Blood Pressure 1: 140/82 Code : 8480-6 BMI: 32.1 Code : 63489-4 Heart Rate 1 : 82 bpm Height: 5'4" SpO2: 98% Weight: 187 lbs 07/31/2017 Blood Pressure 1: 138/82 Code : 8480-6 Heart Rate 1: 87 bpm SpO2: 99% 03/24/2017 Blood Pressure 1: 146/86 Code : 8480-6 BMI: 31.8 Code : 65723-6 Heart Rate 1 : 79 bpm Height: 5'4" SpO2: 96% Temperature: 36.4 (C) / 97.5 (F) Weight: 185 lbs 08/30/2016 Blood Pressure 1: 142/88 Code : 8480-6 BMI: 31.6 Code : 73883-8 Heart Rate 1 : 80 bpm Height: 5'4" SpO2: 93% Weight: 184 lbs 08/08/2016 Blood Pressure 1: 142/76 Code : 8480-6 BMI: 29.9 Code : 63380-7 Heart Rate 1 : 80 bpm Height: 5'4" SpO2: 94% Weight: 174 lbs 06/27/2016 Blood Pressure 1: 156/72 Code : 8480-6 BMI: 30.6 Code : 46585-5 Heart Rate 1 : 78 bpm Height: 5'4" SpO2: 95% Weight: 178 lbs 05/23/2016 Blood Pressure 1: 146/84 Code : 8480-6 Heart Rate 1: 66 bpm Height: 5'4" SpO2: 94% 04/18/2016 Blood Pressure 1: 148/84 Code : 8480-6 BMI: 30.2 Code : 88841-2 Heart Rate 1 : 81 bpm Height: 5'4" SpO2: 97% Weight: 176 lbs 03/07/2016 Blood Pressure 1: 130/78 Code : 8480-6 BMI: 30.0 Code : 28280-4 Heart Rate 1 : 85 bpm Height: 5'4" SpO2: 96% Weight: 175 lbs 02/23/2016 Blood Pressure 1: 140/78 Code : 8480-6 BMI: 29.7 Code : 60794-1 Heart Rate 1 : 74 bpm Height: 5'4" SpO2: 95% Weight: 173 lbs 09/15/2015 Blood Pressure 1: 140/88 Code : 8480-6 BMI: 29.4 Code : 13642-4 Heart Rate 1 : 81 bpm Height: 5'4" SpO2: 97% Weight: 171 lbs 8 oz 05/26/2015 Blood Pressure 1: 150/80 Code : 8480-6 BMI: 31.6 Code : 67033-3 Heart Rate 1 : 70 bpm Height: 5'4" SpO2: 96% Weight: 184 lbs 04/09/2015 Blood Pressure 1: 136/74 Code : 8480-6 BMI: 31.4 Code : 47662-0 Heart Rate 1 : 91 bpm Height: 5'4" SpO2: 94% Weight: 183 lbs 03/30/2015 Blood Pressure 1: 130/72 Code : 8480-6 BMI: 30.9 Code : 11407-0 Heart Rate 1 : 80 bpm Height: 5'4" SpO2: 97% Waist Measure (cm): 102 cm Weight: 180 lbs 03/10/2015 Blood Pressure 1: 152/80 Code : 8480-6 BMI: 31.1 Code : 00861-9 Heart Rate 1 : 66 bpm Height: 5'4" SpO2: 98% Weight: 181 lbs 12/16/2014 Blood Pressure 1: 132/88 Code : 8480-6 Blood Pressure 1: 132/88 Code: 8480-6 Heart Rate 1: 88 bpm SpO2: 98% Weight: 183 lbs 12/09/2014 Blood Pressure 1: 140/82 Code : 8480-6 BMI: 31.2 Code : 98826-0 Heart Rate 1 : 105 bpm Height: 5'4" SpO2: 93% Weight: 182 lbs 11/13/2014 Blood Pressure 1: 148/88 Code : 8480-6 BMI: 31.8 Code : 74425-0 Heart Rate 1 : 54 bpm Height: 5'4" SpO2: 98% Weight: 185 lbs 07/10/2014 Blood Pressure 1: 144/96 Code : 8480-6 BMI: 31.4 Code : 54401-3 Heart Rate 1 : 99 bpm Height: 5'4" SpO2: 98% Temperature: 36.8 (C) / 98.2 (F) Weight: 183 lbs Functional Status No Functional Status data History of Present Illness Symptom Name Status Result Effective Date Notes hypertension Onset and Resolution ongoing 09/27/2017 None [...] data Encounters Encounter Performer Location Codes Date ([id number]) 72004 EST. 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 PATIENT, LEVEL IV Diagnosis: Atrophy of thyroid (acquired)[ICD10: E03.4] Diagnosis: Pleurisy[ICD10: R09.1] Diagnosis: Essential (primary) hypertension[ICD10: I10] Shannon Falk MD, [facility] CPT-4: 29425 08/30/2016 [id number]) 40173 EST. PATIENT, LEVEL III Diagnosis: Pleurisy[ICD10: R09.1] Elizabet Falk MD, [facility] CPT-4: 23009 08/08/2016 61181 EST. PATIENT, LEVEL III Diagnosis: Dysuria[ICD10: R30.0] Diagnosis: Other pruritus[ICD10: L29.8] Sihla Falk MD, [facility] CPT-4 : 41554 06/27/2016 ([id number]) 80476 EST. PATIENT, LEVEL III Diagnosis: Pain in left foot[ICD10: M79.672] Diagnosis: Pain in left toe(s)[ICD10: M79.675] Elizabet Falk MD, [facility] CPT-4: 43074 05/23/2016 11348 EST. PATIENT, LEVEL III Diagnosis: Candidiasis of vulva and vagina[ICD10: B37.3] Diagnosis: Dysuria[ICD10: R30.0] Shila Falk MD, [facility] CPT-4: 15599 04/18/2016 75936 EST. PATIENT, LEVEL III Diagnosis: Other pruritus[ICD10: L29.8] Diagnosis: Candidiasis of vulva and vagina[ICD10: B37.3] Shila Falk MD, [facility] CPT-4: 61982 03/07/2016 ([id number]) 48513 EST. PATIENT, LEVEL IV Diagnosis: Essential (primary) hypertension[ICD10: I10] Diagnosis: Pain in left hip[ICD10: M25.552] Diagnosis: Pain in right hip[ICD10: M25.551] Diagnosis: Functional diarrhea[ICD10: K59.1] Diagnosis: Atrophy of thyroid (acquired)[ICD10: E03.4] Shannon Falk MD, [facility] CPT-4: 13229 02/23/2016 ([id number]) 55545 EST. PATIENT, LEVEL IV Diagnosis: Essential (primary) hypertension[ICD10: I10] Diagnosis: Mixed hyperlipidemia[ICD10: E78.2] Diagnosis: Major depressive disorder, single episode, unspecified[ICD10: F32.9] Shannon Falk MD, [facility] CPT-4: 12827 09/15/2015 10564 EST. PATIENT, LEVEL III Diagnosis: Rash and other nonspecific skin eruption[ICD10: R21] Shila Falk MD, [facility] CPT-4: 83977 05/26/2015 ([id number]) 36714 EST. PATIENT, LEVEL IV Diagnosis: Essential (primary) hypertension[ICD10: I10] Diagnosis: Foot drop, left foot[ICD10: M21.372] Diagnosis: Sacroiliitis, not elsewhere classified[ICD10: M46.1] Shannon Falk MD, [facility] CPT-4: 56866 04/09/2015 ([id number]) 56249 EST. 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 PATIENT, LEVEL III Diagnosis: Trochanteric bursitis, left hip[ICD10: M70.62] Diagnosis: Iliotibial band syndrome, left leg[ICD10: M76.32] Diagnosis: Sciatica, left side[ICD10: M54.32] Elizabet Falk MD, [facility] CPT-4: 17905 12/16/2014 ([id number]) [id number] EST. PATIENT, LEVEL III Diagnosis: Sciatica, left side[ICD10: M54.32] Diagnosis: Sacroiliitis, not elsewhere classified[ICD10: M46.1] Elizabet Falk MD, [facility] CPT-4: 25862 12/09/2014 ([id number]) 60134 EST. 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 09/27/2017 Appointment: Shannon Falk WPtel: [phone] [facility] (15 min) Moderate 09/27/2017 Patient Education: Patient Medication Summary Completed 09/27/2017 Care Plan: Referral Order SNOMED-CT : 656302856 Pending 09/27/2017 Appointment: Shannon Falk WPtel: [phone] [facility] (15 min) Moderate 09/21/2017 Appointment: Nurse Visit [...] daily. 03/24/2017 Appointment: Shannon Falk WPtel: [phone] [facility] (15 min) Moderate 03/24/2017 Patient Education: Patient Medication Summary Completed 03/24/2017 [phone] [place] (15 min) Moderate 03/16/2017 App[facility]ment: [phone] (15 min) Moderate 03/01/2017 Visit Plan: Hypertension [...] supportive care. 08/30/2016 Appointment: [facility] [address] [facility] (15 min) Moderate 08/30/2016 Patient Education: [...] of plan. 08/08/2016 Appointment: Elizabet Donaldson WPtel: [phone] [phone] (30 min) Complex 08/08/2016 Patient Education: Patient Medication Summary Completed 08/08/2016 Referral: Delia Bernstein WPtel: [phone] [place] [address] B [id number] Referral Initiated 08/01/2016 Visit Plan: Vaginal yeast [...] will refer. 06/27/2016 Appointment: Shila Deluna WPtel: [facility] (30 min) Complex 06/27/2016 Patient Education: Patient Medication Summary Completed 06/27/2016 Care Plan: Referral Order SNOMED-CT : [id number] Pending 06/27/2016 Visit Plan: Left foot, 1st and 2nd toe pain-suspect fracture of left great toe-will obtain xrays and proceed as indicated. Patient verbalized understanding of plan. 05/23/2016 Appointment: Elizabet Donaldson WPtel: [phone] [phone] (15 min) Moderate 05/23/2016 Patient Education: [...] probiotics 02/23/2016 Appointment: Shannon Falk WPtel: [phone] [facility] (15 min) Moderate 02/23/2016 Patient Education: Patient [...] Summary Completed 09/15/2015 Appointment: [phone] (15 min) Moderate 07/29/2015 Visit Plan: [...] - vitamin B12 liquid 2000mcg daily - [facility] sells the liquid b12, folic acid - take daily. metanex 1 capsule twice daily - call office if this seems to help decrease nerve pain increase the night-time dosing of gabapentin to 300mg in AM, Noon, 6pm and 10pm 04/09/2015 Appointment: Shannon Falk WPtel: [address] [place], [place] [address] (15 min) Moderate 04/09/2015 Patient Education: Patient [...] 2012. 03/10/2015 Appointment: Shannon Falk WPtel: [address] [place], [place] [address] (15 min) Moderate 03/10/2015 Patient Education: Patient Medication Summary Completed 03/10/2015 Care Plan: SCREENINGMAMMOGRAPHYDIGITAL LOINC : 50461-3 Ordered 03/10/2015 Care Plan: Referral Order SNOMED-CT : [id number] Ordered 03/10/2015 Care Plan: Referral Order SNOMED-CT : [id number] Ordered 03/10/2015 Visit Plan: Left hip bursitis/Iliotibial [...] 12/16/2014 Care Plan: Referral Order SNOMED-CT : [id number] Ordered 12/16/2014 Visit Plan: Sacroiliitis - back [...] tunnel brace. 11/13/2014 Appointment: Shannon Falk WPtel: [facility] [facility] up 11/13/2014 Patient Education: Patient [...] stomach pain. ALIGN PROBIOTIC - TAKE DAILY ([employer]) OR [facility] -TWO OTHER PROBIOTICS THAT ARE HIGH QUALITY) CIPROFLOXACIN TO BE TAKEN IF NEEDED IF THE DIARRHEA DOES NOT IMPROVE OR IF IT WORSENS. 07/10/2014 Appointment: [facility]el[phone] [facility] [place] ([place] New Patient 07/10/2014 Patient Education: Patient Medication Summary Completed 07/10/2014 Patient Education: Hypertension Completed 07/10/2014 Referral: Darci Spann Referral Relationship Referral: External, Ordering Provider Referral Appointment Requested Referral: External, Ordering Provider 09/28 Referral info faxed to [facility] 10/03 They tried calling her with an appt and she did not answer. Called patient and she will call them back. Appointment Requested Referral: External, Ordering Provider Referral Appointment Requested Referral: [phone] [facility] Referral Initiated Referral: External, Ordering Provider Referral Completed Instructions Comment increase celebrex to twice daily . Hypertension [...] - her insurance company has denied her Emilee and she is hopeful that the appeal [...] is finished, refill the 10mg pill at [facility]. carpal tunnel brace . Hypertension - uncontrolled [...] pt had 2013 colonoscopy with hyperplastic polyps, MariaI nes recommended repeat scope in 2013. Nasal spray- use twice daily, one spray per nostril twice daily, after 30 minutes, rinse out nose with saline spray.. Use opposite hand per nostril to spray in the nasal steroid allergy spray. ALIGN PROBIOTIC - TAKE DAILY ([employer]) OR [employer] -TWO OTHER PROBIOTICS THAT ARE HIGH QUALITY) [...] stomach pain. ALIGN PROBIOTIC - TAKE DAILY ([employer] OR [employer] -TWO OTHER PROBIOTICS THAT ARE HIGH QUALITY) [...] Diarrhea - functional - start probiotics . Welcome to Medicare Exam - today [...] plan. vitamin B12 liquid 2000mcg daily - [facility] sells the liquid b12 folic acid - [...] - vitamin B12 liquid 2000mcg daily - [facility] sells the liquid b12, folic acid - [...]
--- OUTSIDE RECORDS SUMMARY | 2018-03-17 11:34 | XMS REPORT | CCD ---
Author Author [facility] Organization [facility] Address [address] [place] [address] Phone Care Team Providers Care Sales Representative Public Utilities Name Role Phone PP Unavailable CCM Unavailable Summary Purpose Interface Exchange Insurance Providers Payer name Policy type / Coverage type Covered alliance party ID Effective Begin Date Effective End Date WPS Medicare Part B Medicare Part B [id number] Unknown [employer] Life Insurance Medicare Part B [id number] Unknown Family history Brother Diagnosis Age At Onset Alcoholism Unknown Mother Diagnosis Age At Onset Hyperlipidemia Unknown Father Diagnosis Age At Onset Alcoholism Unknown Heart Attack Unknown Colon cancer Unknown Cancer Unknown Stroke Unknown Hypertension Unknown Hyperlipidemia Unknown Runs in the family Diagnosis Age At Onset Diabetes Unknown Social History Social History Element Codes Description Effective Dates 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 Marital status Unknown chucky 07/10/2014 Number of children Unknown 2 07/10/[address]: 062959902 Has never smoked or chewed tobacco 07/10/2014 Alcohol history Unknown occasionally drinks alcohol 07/10/2014 Allergies, Adverse Reactions, Alerts Substance Reaction Codes Entered Date Inactivated Date Status Remicade hives RxNorm: 778696 03/24/2017 No Inactive Date Active Past Medical History [...] Start Date Stop Date Status Fill Instructions Celebrex 200 mg capsule RxNorm: 429439 1 Capsule(s) PO BID 1 Capsule(s) PO daily 03/24/2017 03/18/2018 Active amlodipine 10 mg tablet RxNorm: 079044 1 Tablet(s) PO daily 1 Tablet(s) PO daily 03/24/2017 03/18/2018 Active gabapentin 300 mg capsule RxNorm: 059746 1 Capsule(s) PO daily 03/24/2017 No Stop Date Active Lipitor 40 mg tablet RxNorm: 280940 Tablet(s) TAKE ONE TABLET BY MOUTH AT BEDTIME 02/14/2017 02/08/2018 Active hydrocodone 7.5 mg-acetaminophen 325 mg tablet RxNorm: 869188 1-2 Tablet(s) PO Q4H as needed 01/16/2017 02/14/2017 Inactive scopolamine 1.5 mg transdermal patch (1 mg over 3 days) RxNorm: 499241 1 Patch TD Q72H 11/25/2016 12/04/2016 Inactive scopolamine 1.5 mg transdermal patch (1 mg over 3 days) RxNorm: 173002 1 Patch TD Q72H 11/25/2016 11/24/2016 Inactive losartan 100 mg tablet RxNorm: 471210 1 Tablet(s) PO daily TAKE 1 TABLET BY MOUTH DAILY 11/14/2016 05/12/2017 Active Generic For:COZAAR 100MG TAB 05/17/2016 8:31: 51 AM Synthroid 75 mcg tablet RxNorm: 538491 TAKE 1 TABLET BY MOUTH DAILY 11/14/2016 06/11/2017 Active Generic For:*SYNTHROID 0.075MG TAB 11/14/2016 9:16:33 AM N O T I C E Last quantity doesn't match original quantity citalopram 20 mg tablet RxNorm: 126105 TAKE ONE (1) TABLET BY MOUTH DAILY 11/14/2016 05/12/2017 Active Generic For:CELEXA 20MG TAB 11/14/2016 8:30:49 AM N O T I C E Last quantity doesn't match original quantity prednisone 10 mg tablets in a dose pack RxNorm: 717675 1 Tablet(s) PO UD 09/30/2016 10/05/2016 Inactive 6-5-4-3-2-1 hydrocodone 7.5 mg-acetaminophen 325 mg tablet RxNorm: 677363 1-2 Tablet(s) PO Q4H as needed 09/20/2016 01/15/2017 Inactive amlodipine 5 mg tablet RxNorm: 913910 TAKE ONE TABLET BY MOUTH EVERY DAY 08/15/2016 03/23/2017 Inactive Generic For:NORVASC 5 MG TABLET 08/15/2016 3:56:26 PM N O T I C E Last quantity doesn't match original quantity Kenalog 40 mg/mL suspension for injection RxNorm: 5697154 1 Milliliter(s) Inj 08/08/2016 08/08/2016 Inactive prednisone 10 mg tablets in a dose pack RxNorm: 896493 1 Tablet(s) PO UD 08/08/2016 08/07/2016 Inactive prednisone 10 mg tablets in a dose pack RxNorm: 900563 1 Tablet(s) PO UD 08/08/2016 08/13/2016 Inactive 6-5-4-3-2-1 Diflucan 150 mg tablet RxNorm: 062571 1 Tablet(s) PO daily 09/201607/10/2016 Inactive Synthroid 75 mcg tablet RxNorm: 144970 TAKE 1 TABLET BY MOUTH DAILY 06/16/2016 11/13/2016 Inactive Generic For:*SYNTHROID 0.075MG TAB pt would like a 90 day supply N O T I C E Last quantity doesn't match original quantity hydrocodone 7.5 mg-acetaminophen 325 mg tablet RxNorm: 719459 1-2 Tablet(s) PO Q4H as needed 06/06/2016 09/19/2016 Inactive citalopram 20 mg tablet RxNorm: 363465 TAKE ONE (1) TABLET BY MOUTH DAILY 05/18/2016 11/13/2016 Inactive Generic For:CELEXA 20MG TAB 05/17/2016 8:32:02 AM Celebrex 200 mg capsule RxNorm: 742484 1 Capsule(s) PO daily 03/23/2017 Inactive losartan 100 mg tablet RxNorm: 557068 TAKE 1 TABLET BY MOUTH DAILY 05/17/2016 11/12/2016 Inactive Generic For:COZAAR 100MG TAB 05/17/2016 8:31:51 AM amlodipine 5 mg tablet RxNorm: 870876 1 Tablet(s) PO daily 08/14/2016 Inactive Cipro 500 mg tablet RxNorm: 585231 1 Tablet(s) PO BID 201605/03/2016 Inactive Cipro 500 mg tablet RxNorm: 856457 1 Tablet(s) PO BID 201605/13/2016 Inactive Diflucan 150 mg tablet RxNorm: 073837 1 Tablet(s) PO daily 05/01/2016 Inactive Monistat Soothing Care 1.2 % topical gel RxNorm: 7667439 1 Application TOP BID 03/07/2016 No Stop Date Active Diflucan 150 mg tablet RxNorm: 627742 1 Tablet(s) PO daily 03/13/2016 Inactive Lipitor 40 mg tablet RxNorm: 499382 Tablet(s) TAKE ONE TABLET BY MOUTH AT BEDTIME 02/23/2016 02/13/2017 Inactive citalopram 20 mg tablet RxNorm: 421348 TAKE ONE (1) TABLET BY MOUTH DAILY 02/18/2016 05/17/2016 Inactive Generic For:CELEXA 20MG TAB refill request losartan 100 mg tablet RxNorm: 844724 Tablet(s) 1 Tablet, 1 time per Day 02/09/2016 05/16/2016 Inactive INSURANCE WILL NOT COVER ADELA ANDREWS DENIED UNTIL OTHER FORMULARIES HAVE BEEN TRIED AND FAILED hydrocodone 7.5 mg-acetaminophen 325 mg tablet RxNorm: 296438 1-2 Tablet(s) PO Q4H as needed 02/03/2016 06/05/2016 Inactive Synthroid 75 mcg tablet RxNorm: 238357 Tablet(s) TAKE 1 TABLET BY MOUTH DAILY 01/19/2016 06/15/2016 Inactive Generic For:*SYNTHROID 0.075MG TAB 09/22/2014 10:00 :02 AM N O T I C E PRESCRIPTION PREVIOUSLY AUTHORIZED BY DOCTOR:SWATI BEY prednisone 10 mg tablets in a dose pack RxNorm: 415299 1 Tablet(s) PO UD 01/07/2016 02/22/2016 Inactive 6-5-4-3-2-1 amlodipine 10 mg tablet RxNorm: 308501 1 Tablet(s) PO daily 11/30/2016 Inactive citalopram 20 mg tablet RxNorm: 630228 TAKE ONE (1) TABLET BY MOUTH DAILY 11/17/2015 02/14/2016 Inactive Generic For:CELEXA 20MG TAB refill request hydrocodone 7.5 mg-acetaminophen 325 mg tablet RxNorm: 922726 1-2 Tablet(s) PO Q4H as needed 10/08/2015 02/02/2016 Inactive losartan 100 mg tablet RxNorm: 787904 Tablet(s) 1 Tablet, 1 time per Day 2015 02/07/2016 Inactive INSURANCE WILL NOT COVER ADELA ANDREWS UNTIL OTHER FORMULARIES HAVE BEEN TRIED AND FAILED citalopram 20 mg tablet RxNorm: 794419 TAKE ONE (1) TABLET BY MOUTH DAILY 08/10/2015 11/07/2015 Inactive Generic For:CELEXA 20MG TAB 08/10/2015 8:59:58 AM Synthroid 75 mcg tablet RxNorm: 368153 Tablet(s) TAKE 1 TABLET BY MOUTH DAILY 05/26/2015 12/21/2015 Inactive Generic For:*SYNTHROID 0.075MG TAB 09/22/2014 10:00 :02 AM N O T I C E PRESCRIPTION PREVIOUSLY AUTHORIZED BY DOCTOR:SWATI BEY prednisone 20 mg tablet RxNorm: 292656 2 Tablet(s) PO daily 06/201505/30/2015 Inactive Lipitor 40 mg tablet RxNorm: 806533 TAKE ONE TABLET BY MOUTH AT BEDTIME 05/14/2015 02/07/2016 Inactive Generic For:LIPITOR 40MG TAB 05/13/2015 8:26:33 AM N O T I C E PRESCRIPTION PREVIOUSLY AUTHORIZED BY DOCTOR:SWATI BEY hydrocodone 7.5 mg-acetaminophen 325 mg tablet RxNorm: 468097 1-2 Tablet(s) PO Q4H as needed 05/11/2015 10/07/2015 Inactive Celebrex 200 mg capsule RxNorm: 327234 1 Capsule(s) PO daily 04/30/2016 Inactive citalopram 20 mg tablet RxNorm: 485167 TAKE ONE (1) TABLET BY MOUTH DAILY 04/27/2015 07/25/2015 Inactive Generic For:CELEXA 20MG TAB 04/26/2015 7:30:08 PM gabapentin 300 mg capsule RxNorm: 945304 1 Capsule(s) PO QID 04/02/2016 Inactive citalopram 20 mg tablet RxNorm: 851753 TAKE ONE (1) TABLET BY MOUTH DAILY 01/26/2015 04/25/2015 Inactive Generic For:CELEXA 20MG TAB 01/26/2015 8:40:11 AM losartan 100 mg tablet RxNorm: 002133 1 Tablet, 1 time per Day 01/26/2015 03/29/2015 Inactive INSURANCE WILL NOT COVER ADELA ANDREWS UNTIL OTHER FORMULARIES HAVE BEEN TRIED AND FAILED hydrocodone 7.5 mg-acetaminophen 325 mg tablet RxNorm: 016272 1-2 Tablet(s) PO Q4H as needed 01/23/2015 05/10/2015 Inactive Neurontin 100 mg capsule RxNorm: 431250 1 Capsule(s) PO TID 03/09/2015 Inactive Neurontin 100 mg capsule RxNorm: 498297 1 Capsule(s) PO TID 01/13/2015 Inactive Keflex 500 mg capsule RxNorm: 696426 1 Capsule(s) PO TID 201401/05/2015 Inactive Keflex 500 mg capsule RxNorm: 270400 1 Capsule(s) PO TID 201401/12/2015 Inactive hydrocodone 7.5 mg-acetaminophen 325 mg tablet RxNorm: 997220 1-2 Tablet(s) PO Q4H as needed 12/29/2014 01/22/2015 Inactive Duexis 800 mg-26.6 mg tablet RxNorm: 4599360 1 Tablet(s) PO TID as needed 12/19/2014 03/29/2015 Inactive Duexis 800 mg-26.6 mg tablet RxNorm: 6042036 1 Tablet(s) PO TID as needed 12/19/2014 12/18/2014 Inactive Kenalog 40 mg/mL suspension for injection RxNorm: 3079827 1 Milliliter(s) Inj 12/09/2014 12/09/2014 Inactive prednisone 10 mg tablets in a dose pack RxNorm: 584022 1 Tablet(s) PO UD 12/09/2014 12/14/2014 Inactive 6-5-4-3-2-1 amlodipine 10 mg tablet RxNorm: 490485 1 Tablet(s) PO daily 11/07/2015 Inactive citalopram 20 mg tablet RxNorm: 321479 TAKE ONE (1) TABLET BY MOUTH DAILY 10/23/2014 01/20/2015 Inactive Generic For:CELEXA 20MG TAB 10/23/2014 4:32:02 PM N O T I C E PRESCRIPTION PREVIOUSLY AUTHORIZED BY DOCTOR:SWATI BEY hydrocodone 7.5 mg-acetaminophen 325 mg tablet RxNorm: 052950 1-2 Tablet(s) PO Q4H as needed 10/22/2014 12/28/2014 Inactive Synthroid 75 mcg tablet RxNorm: 959954 TAKE 1 TABLET BY MOUTH DAILY 09/22/2014 04/19/2015 Inactive Generic For:*SYNTHROID 0.075MG TAB 09/22/2014 10:00:02 AM N O T I C E PRESCRIPTION PREVIOUSLY AUTHORIZED BY DOCTOR:SWATI BEY amlodipine 5 mg tablet RxNorm: 202277 1 Tablet(s) PO daily 07/201411/12/2014 Inactive Synthroid 75 mcg tablet RxNorm: 140020 1 Tablet(s) PO daily ecept a 1/2 tab on Monday07/11/2014 09/21/2014 Inactive Flonase Allergy Relief 50 mcg/actuation nasal spray, suspension RxNorm: 1 [place] NASAL BID 07/10/2014 12/06/2014 Inactive Benicar 20 mg tablet RxNorm: 325986 1 Tablet(s) PO daily No Start Date Active Celebrex 200 mg capsule RxNorm: 716065 1 Capsule(s) PO daily No Start Date 05/06/2015 Inactive Arava 20 mg tablet RxNorm: 848004 1 Tablet(s) PO daily No Start Date Active methotrexate sodium 2.5 mg tablet RxNorm: 723103 3 Tablet(s) PO weekly No Start Date 04/08/2015 Inactive gabapentin 300 mg capsule RxNorm: 743764 1 Capsule(s) PO TID No Start Date 04/08/2015 Inactive Plaquenil 200 mg tablet RxNorm: 861580 1 Tablet(s) PO BID No Start Date 05/22/2016 Inactive losartan 100 mg tablet RxNorm: 611989 1 Tablet(s) PO daily No Start Date 01/25/2015 Inactive Remicade intravenous RxNorm: 717271 intravenous No Start Date 03/23/2017 Inactive amlodipine 5 mg tablet RxNorm: 489853 1 Tablet(s) PO daily No Start Date 08/24/2014 Inactive citalopram 20 mg tablet RxNorm: 432847 1 Tablet(s) PO daily No Start Date 10/22/2014 Inactive Synthroid 88 mcg tablet RxNorm: 753378 1 Tablet(s) PO daily No Start Date 07/09/2014 Inactive Lipitor 40 mg tablet RxNorm: 253274 1 Tablet(s) PO daily No Start Date 05/13/2015 Inactive Synthroid 75 mcg tablet RxNorm: 558886 1 Tablet(s) PO daily No Start Date 07/10/2014 Inactive hydrocodone 7.5 mg-acetaminophen 325 mg tablet RxNorm: 767195 Tablet(s) PO as needed No Start Date 10/21/2014 Inactive Medication Administered Medication Codes Instructions Start Date Status Kenalog 40 mg/mL suspension for injection RxNorm: 2908048 1Milliliter 08/08/2016 No longer Active Kenalog 40 mg/mL suspension for injection RxNorm: 8007831 1Milliliter 12/09/2014 No longer Active Immunizations No Immunization data Assessments Condition Codes Effective Dates 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 ICD-10: M05.742 ICD-9: 714.0 03/24/2017 Atrophy of thyroid (acquired) ICD-10: E03.4 ICD-9: 244.8 03/24/2017 Essential (primary) hypertension ICD-10: I10 ICD-9: 401.9 03/24/2017 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 ICD-10: M05.741 ICD-9: 714.0 03/24/2017 Pleurisy ICD-10: R09.1 ICD-9: 511.0 08/30/2016 Other [...] Visit Reason For Visit Effective Dates Notes pleurisy 03/24/2017 pleurisy 08/30/2016 pleurisy 08/08/2016 urinary [...] NO Growth Day 2 06/29/2016 Culture Urine [id number] URINE CULTURE SEE NOTES 04/22/2016 Culture Urine [id number] Continued Results 04/22/2016 Urine Culture Ucult Complete >100,000 col/ml aerobic growth sent to ref lab 04/20/2016 Comp Metabolic Wtu111 NA 137 mEq/L 02/10/2016 Comp Metabolic Hjk365 K 4.1 mEq/L 02/10/2016 Comp Metabolic Kri148 CL 102 mEq/L 02/10/2016 Comp Metabolic Ets346 CO2 28.0 mEq/L 02/10/2016 Comp Metabolic Bno939 ANION GAP 11 02/10/2016 Comp Metabolic Ojp596 GLUCOSE 104 mg/dL 02/10/2016 Comp Metabolic Nlt828 Creat 0.7 mg/dL 02/10/2016 Comp Metabolic Yca376 eGFR 83 ml/min/1.73m2 02/10/2016 Comp Metabolic Poe829 BUN 14 mg/dL 02/10/2016 Comp Metabolic Qhl866 B/C Ratio 18.9 Ratio 02/10/2016 Comp Metabolic Hpo155 CALCIUM 9.7 mg/dL 02/10/2016 Comp Metabolic Ddf740 ALK PHOS 121 U/L 02/10/2016 Comp Metabolic Lgo125 AST(SGOT) 19 U/L 02/10/2016 Comp Metabolic Bpt537 ALT(SGPT) 13 U/L 02/10/2016 Comp Metabolic Roh591 BILI T 0.5 mg/dL 02/10/2016 Comp Metabolic Rrp623 ALBUMIN 4.3 g/dL 02/10/2016 Comp Metabolic Ucg017 TPRO 6.8 g/dL 02/10/2016 Comp Metabolic Xmd726 GLOB 2.5 g/dL 02/10/2016 Comp Metabolic Bfe777 A/G Ratio 1.7 Ratio 02/10/2016 Comp Metabolic Vyk992 Osmo 275 mOsmo 02/10/2016 Lipid Ord30 CHOL 229 mg/dL 02/10/2016 Lipid Ord30 HDL 59.0 mg/dl 02/10/2016 Lipid Ord30 TRIG 252 mg/dL 02/10/2016 Lipid Ord30 LDL 120 mg/dL 02/10/2016 Lipid Ord30 C/HDL 3.9 Ratio 02/10/2016 Free T4 Ngf002 FREE T4 0.87 ng/dL 02/10/2016 Tsh Ord6 [...] 29.2 pg 02/10/2016 Cbc With Differential Ord2 Swift% 18.6 % 02/10/2016 Cbc With Differential Ord2 [...] 1.81 K/ul 02/10/2016 Cbc With Differential Ord2 Swift ABS# 1.1 K/ul 02/10/2016 Cbc With Differential Ord2 Eos ABS# 0.1 K/ul 02/10/2016 Cbc With Differential Ord2 Baso ABS# 0.1 K/ul 02/10/2016 Tsh Ord6 hTSH II 0.85 uIU/mL 04/02/2015 Lipid Ord30 CHOL 207 mg/dL 04/02/2015 Lipid Ord30 HDL 68.0 mg/dl 04/02/2015 Lipid Ord30 TRIG 193 mg/dL 04/02/2015 Lipid Ord30 LDL 100 mg/dL 04/02/2015 Lipid Ord30 C/HDL 3.0 Ratio 04/02/2015 Free T4 Ydm685 FREE T4 1.09 ng/dL 04/02/2015 Free T4 Fvs156 FREE T4 0.82 ng/dL 10/15/2014 Tsh Ord6 [...] hyperactive 03/24/2017 None Full Exam - General 1995 Lymphatic neck nodes Overall: anterior cervical chain [...] hyperactive 07/10/2014 None Procedures Procedure Codes Date PRESCRIP TRANSMIT VIA ERX SY CPT-4: G8553 03/24/2017 TRIAMCINOLONE ACET INJ NOS CPT-4: J3301 08/08/2016 [...] CPT-4: G8553 11/13/2014 Vital Signs Date Vital 03/24/2017 Blood Pressure 1: 146/86 Code : 8480-6 BMI: 31.8 Code : 68336-2 Heart Rate 1 : 79 bpm Height: 5'4" SpO2: 96% Temperature: 36.4 (C) / 97.5 (F) Weight: 185 lbs 08/30/2016 Blood Pressure 1: 142/88 Code : 8480-6 BMI: 31.6 Code : 25595-4 Heart Rate 1 : 80 bpm Height: 5'4" SpO2: 93% Weight: 184 lbs 08/08/2016 Blood Pressure 1: 142/76 Code : 8480-6 BMI: 29.9 Code : 16979-0 Heart Rate 1 : 80 bpm Height: 5'4" SpO2: 94% Weight: 174 lbs 06/27/2016 Blood Pressure 1: 156/72 Code : 8480-6 BMI: 30.6 Code : 89078-4 Heart Rate 1 : 78 bpm Height: 5'4" SpO2: 95% Weight: 178 lbs 05/23/2016 Blood Pressure 1: 146/84 Code : 8480-6 Heart Rate 1: 66 bpm Height: 5'4" SpO2: 94% 04/18/2016 Blood Pressure 1: 148/84 Code : 8480-6 BMI: 30.2 Code : 93456-2 Heart Rate 1 : 81 bpm Height: 5'4" SpO2: 97% Weight: 176 lbs 03/07/2016 Blood Pressure 1: 130/78 Code : 8480-6 BMI: 30.0 Code : 61855-7 Heart Rate 1 : 85 bpm Height: 5'4" SpO2: 96% Weight: 175 lbs 02/23/2016 Blood Pressure 1: 140/78 Code : 8480-6 BMI: 29.7 Code : 62844-9 Heart Rate 1 : 74 bpm Height: 5'4" SpO2: 95% Weight: 173 lbs 09/15/2015 Blood Pressure 1: 140/88 Code : 8480-6 BMI: 29.4 Code : 98687-9 Heart Rate 1 : 81 bpm Height: 5'4" SpO2: 97% Weight: 171 lbs 8 oz 05/26/2015 Blood Pressure 1: 150/80 Code : 8480-6 BMI: 31.6 Code : 05231-2 Heart Rate 1 : 70 bpm Height: 5'4" SpO2: 96% Weight: 184 lbs 04/09/2015 Blood Pressure 1: 136/74 Code : 8480-6 BMI: 31.4 Code : 35649-5 Heart Rate 1 : 91 bpm Height: 5'4" SpO2: 94% Weight: 183 lbs 03/30/2015 Blood Pressure 1: 130/72 Code : 8480-6 BMI: 30.9 Code : 17586-6 Heart Rate 1 : 80 bpm Height: 5'4" SpO2: 97% Waist Measure (cm): 102 cm Weight: 180 lbs 03/10/2015 Blood Pressure 1: 152/80 Code : 8480-6 BMI: 31.1 Code : 73493-9 Heart Rate 1 : 66 bpm Height: 5'4" SpO2: 98% Weight: 181 lbs 12/16/2014 Blood Pressure 1: 132/88 Code : 8480-6 Blood Pressure 1: 132/88 Code: 8480-6 Heart Rate 1: 88 bpm SpO2: 98% Weight: 183 lbs 12/09/2014 Blood Pressure 1: 140/82 Code : 8480-6 BMI: 31.2 Code : 47142-2 Heart Rate 1 : 105 bpm Height: 5'4" SpO2: 93% Weight: 182 lbs 11/13/2014 Blood Pressure 1: 148/88 Code : 8480-6 BMI: 31.8 Code : 63108-0 Heart Rate 1 : 54 bpm Height: 5'4" SpO2: 98% Weight: 185 lbs 07/10/2014 Blood Pressure 1: 144/96 Code : 8480-6 BMI: 31.4 Code : 59398-9 Heart Rate 1 : 99 bpm Height: 5'4" SpO2: 98% Temperature: 36.8 (C) / 98.2 (F) Weight: 183 lbs Functional Status No Functional Status data History of Present Illness Symptom Name Status Result Effective Date Notes pleurisy Onset of Symptom 2-3 months ago [...] Directive data Encounters Encounter Performer Location Codes ([id number]) 17124 EST. 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 PATIENT, LEVEL IV Diagnosis: Atrophy of thyroid (acquired)[ICD10: E03.4] Diagnosis: Pleurisy[ICD10: R09.1] Diagnosis: Essential (primary) hypertension[ICD10: I10] Shannon Falk MD, [facility] CPT-4: 79601 08/30/2016 ([id number]) 11694 EST. PATIENT, LEVEL III Diagnosis: Pleurisy[ICD10: R09.1] Elizabet Falk MD, [facility] CPT-4: 61142 08/08/2016 90167 EST. PATIENT, LEVEL III Diagnosis: Dysuria[ICD10: R30.0] Diagnosis: Other pruritus[ICD10: L29.8] Shila Falk MD, [facility] CPT-4 : 56103 06/27/2016 ([id number]) 26131 EST. PATIENT, LEVEL III Diagnosis: Pain in left foot[ICD10: M79.672] Diagnosis: Pain in left toe(s)[ICD10: M79.675] Elizabet Falk MD, [facility] CPT-4: 66891 05/23/2016 22049 EST. PATIENT, LEVEL III Diagnosis: Candidiasis of vulva and vagina[ICD10: B37.3] Diagnosis: Dysuria[ICD10: R30.0] Shila Falk MD, [facility] CPT-4: 68527 04/18/2016 15848 EST. PATIENT, LEVEL III Diagnosis: Other pruritus[ICD10: L29.8] Diagnosis: Candidiasis of vulva and vagina[ICD10: B37.3] Shila Falk MD, [facility] CPT-4: 27224 03/07/2016 ([id number]) 32738 EST. PATIENT, LEVEL IV Diagnosis: Essential (primary) hypertension[ICD10: I10] Diagnosis: Pain in left hip[ICD10: M25.552] Diagnosis: Pain in right hip[ICD10: M25.551] Diagnosis: Functional diarrhea[ICD10: K59.1] Diagnosis: Atrophy of thyroid (acquired)[ICD10: E03.4] Shannon Falk MD, [facility] CPT-4: 85846 02/23/2016 ([id number]) 38165 EST. PATIENT, LEVEL IV Diagnosis: Essential (primary) hypertension[ICD10: I10] Diagnosis: Mixed hyperlipidemia[ICD10: E78.2] Diagnosis: Major depressive disorder, single episode, unspecified[ICD10: F32.9] Shannon Falk MD, [facility] CPT-4: 99278 09/15/2015 38986 EST. PATIENT, LEVEL III Diagnosis: Rash and other nonspecific skin eruption[ICD10: R21] Shila Falk MD, [facility] CPT-4: 49258 05/26/2015 ([id number]) 19215 EST. PATIENT, LEVEL IV Diagnosis: Essential (primary) hypertension[ICD10: I10] Diagnosis: Foot drop, left foot[ICD10: M21.372] Diagnosis: Sacroiliitis, not elsewhere classified[ICD10: M46.1] Shannon Falk MD, [facility] CPT-4: 08129 04/09/2015 ([id number]) 54440 EST. 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 PATIENT, LEVEL III Diagnosis: Trochanteric bursitis, left hip[ICD10: M70.62] Diagnosis: Iliotibial band syndrome, left leg[ICD10: M76.32] Diagnosis: Sciatica, left side[ICD10: M54.32] Elizabet Falk MD, [facility] CPT-4: 67063 12/16/2014 ([id number]) 22440 EST. PATIENT, LEVEL III Diagnosis: Sciatica, left side[ICD10: M54.32] Diagnosis: Sacroiliitis, not elsewhere classified[ICD10: M46.1] [facility] CPT-4: 23941 12/09/2014 ([id number]) 52131 EST. 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] Diagnosis: Carpal tunnel syndrome, unspecified upper limb[ICD10: G56.00] [facility] CPT-4: 59245 11/13/2014 ([id number]) OFFICE VISIT, NEW - LEVEL 4 Diagnosis: ESSENTIAL HYPERTENSION[ICD9: 401.9] Diagnosis: HYPERLIPIDEMIA[ICD9: 272.4] Diagnosis: DEPRESSIVE DISORDER NEC[ICD9: 311] Diagnosis: Diarrhea[ICD9: 787.91] [facility] CPT-4: 73279 07/10/2014 Plan of Care Planned Activity Notes [...] Increase the celebrex to twice daily. 03/24/2017 Patient Education: Patient Medication Summary Completed 03/24/2017 Appointment: [facility] ([facility] min) Moderate 03/16/2017 Appointment: Shannon Falk [facility]Ptel[facility] (15 min) Moderate 03/01/2017 Visit Plan: [...] supportive care. 08/30/2016 Appointment: Shannon Falk WPtel: [facility] [address] (15 min) Moderate 08/30/2016 Patient Education: Patient [...] of plan. 08/08/2016 Appointment: Elizabet Donaldson WPtel: [phone] (30 min) Complex 08/08/2016 Patient Education: Patient Medication Summary Completed 08/08/2016 Referral: Delia Bernstein WPtel: [address] [place], [place] [phone] Referral Initiated 08/01/2016 Visit Plan: Vaginal yeast [...] will refer. 06/27/2016 Appointment: Shila Deluna WPtel: [facility] (30 min) Complex 06/27/2016 Patient Education: Patient Medication Summary Completed 06/27/2016 Care Plan: Referral Order SNOMED-CT : [id number] Pending 06/27/2016 Visit Plan: Left foot, 1st and 2nd toe pain-suspect fracture of left great toe-will obtain xrays and proceed as indicated. Patient verbalized understanding of plan. 05/23/2016 Appointment: Elizabet Donaldson WPtel: [phone] (15 min) Moderate 05/23/2016 Patient Education: Patient [...] probiotics 02/23/2016 Appointment: Shannon Falk WPtel: [phone] [facility] (15 min) Moderate 02/23/2016 Patient Education: Patient [...] Summary Completed 09/15/2015 Appointment: Shannon Falk [facility]el[facility] (15 min) Moderate 07/29/2015 Visit Plan: [...] - vitamin B12 liquid 2000mcg daily - [facility] sells the liquid b12, folic acid - take daily. metanex 1 capsule twice daily - call office if this seems to help decrease nerve pain increase the night-time dosing of gabapentin to 300mg in AM, Noon, 6pm and 10pm 04/09/2015 App[facility]ment: [facility] [phone] [facility] (15 min) Moderate 04/09/2015 Patient Education: [...] 2012. 03/10/2015 [facility]ment: [facility] [phone] [facility] (15 min) Moderate 03/10/2015 Patient Education: Patient Medication Summary Completed 03/10/2015 Care Plan: SCREENINGMAMMOGRAPHYDIGITAL LOINC : 21325-2 Ordered 03/10/2015 Care Plan: Referral Order SNOMED-CT : [id number] Ordered 03/10/2015 Care Plan: Referral Order SNOMED-CT : [id number] Ordered 03/10/2015 Visit Plan: Left hip bursitis/Iliotibial [...] 12/16/2014 Care Plan: Referral Order SNOMED-CT : [id number] Ordered 12/16/2014 Visit Plan: Sacroiliitis - back [...] tunnel brace. 11/13/2014 Appointment: Shannon Falk WPtel: [address] [place], [place] [id number] Follow up 11/13/2014 Patient Education: Patient Medication [...] stomach pain. ALIGN PROBIOTIC - TAKE DAILY (Tripping OR LiveStub -TWO OTHER PROBIOTICS THAT ARE HIGH QUALITY) CIPROFLOXACIN TO BE TAKEN IF NEEDED IF THE DIARRHEA DOES NOT IMPROVE OR IF IT WORSENS. 07/10/2014 App[facility]ment: [facility] [phone] [id number] [place] New Patient 07/10/2014 Patient Education: Patient Medication Summary Completed 07/10/2014 Patient Education: Hypertension Completed 07/10/2014 Referral: Darci Spann Referral Relationship Referral: External, Ordering Provider Referral Appointment Requested Referral: Delia Bernstein [facility]el[facility] [phone] [facility] [id number] Referral Initiated Referral: External, Ordering Provider Referral [...] is finished, refill the 10mg pill at [facility]. carpal tunnel brace . Hypertension - [...] allergy spray. ALIGN PROBIOTIC - TAKE DAILY (Tripping OR LiveStub -TWO OTHER PROBIOTICS THAT ARE HIGH QUALITY) [...] stomach pain. ALIGN PROBIOTIC - TAKE DAILY (Tripping OR LiveStub -TWO OTHER PROBIOTICS THAT ARE HIGH QUALITY) [...] they worsen, or with any concerns. . Hypertension - well controlled - continue [...] plan. vitamin B12 liquid 2000mcg daily - [facility] sells the liquid b12 folic acid [...] - vitamin B12 liquid 2000mcg daily - [facility] sells the liquid b12, folic acid [...]
[2018-03-17 11:36] LABS: BASOPHILS % (AUTO) 0 % (0-10); EOSINOPHILS % (AUTO) 0 % (0-10); HEMATOCRIT 36 % (35-52); HEMOGLOBIN 12.7 G/DL (11.5-16.0); LYMPHOCYTES # (AUTO) 1.4 X 10^3 (1.0-4.0); LYMPHOCYTES % (AUTO) 14 % (12-44); MEAN CORPUSCULAR HEMOGLOBIN 30 PG (25-34); MEAN CORPUSCULAR HGB CONC 35 G/DL (32-36); MEAN CORPUSCULAR VOLUME 85 FL (80-99); MEAN PLATELET VOLUME 9.4 FL (7.4-10.4); MONOCYTES # (AUTO) 0.9 X 10^3 (0.0-1.0); MONOCYTES % (AUTO) 9 % (0-12); NEUTROPHILS # (AUTO) 7.8 X 10^3 (1.8-7.8); NEUTROPHILS % (AUTO) 77 % (42-75); PLATELET COUNT 487 10^3/uL (130-400); WHITE BLOOD COUNT 10.2 10^3/uL (4.3-11.0)
--- OUTSIDE RECORDS SUMMARY | 2018-03-17 11:36 | XMS REPORT | CCD ---
Author Author [facility] Organization [facility] Address [address] [place] [address] Phone Care Team Providers Care Manager Operations Name Role Phone PP Unavailable CCM Unavailable Summary Purpose Interface Exchange Insurance Providers Payer name Policy type / Coverage type Covered alliance party ID Effective Begin Date Effective End Date WPS Medicare Part B Medicare Part B [id number] Unknown [employer] Insurance Medicare Part B [id number] Unknown Family history Brother Diagnosis Age At [...] Unknown 2 07/10/[address]: 323511962 Has never smoked or chewed tobacco 07/10/2014 Alcohol history Unknown occasionally drinks alcohol 07/10/2014 Allergies, Adverse Reactions, Alerts Substance Reaction Codes Entered Date Inactivated Date Status Remicade hives RxNorm: 904307 03/24/2017 No Inactive Date Active Past Medical [...] Fill Instructions Celebrex 200 mg capsule RxNorm: 343519 1 Capsule(s) PO BID 03/201703/18/2018 Active amlodipine 10 mg tablet RxNorm: 729162 1 Tablet(s) PO daily 1 Tablet(s) PO daily 03/24/2017 03/18/2018 Active gabapentin 300 mg capsule RxNorm: 837620 1 Capsule(s) PO daily 03/24/2017 No Stop Date Active Celebrex 200 mg capsule RxNorm: 136691 1 Capsule(s) PO BID 1 Capsule(s) PO daily 03/24/2017 03/23/2017 Inactive Lipitor 40 mg tablet RxNorm: 392412 Tablet(s) TAKE ONE TABLET BY MOUTH AT BEDTIME 02/14/2017 02/08/2018 Active hydrocodone 7.5 mg-acetaminophen 325 mg tablet RxNorm: 795782 1-2 Tablet(s) PO Q4H as needed 01/16/2017 02/14/2017 Inactive scopolamine 1.5 mg transdermal patch (1 mg over 3 days) RxNorm: 190464 1 Patch TD Q72H 11/25/2016 12/04/2016 Inactive scopolamine 1.5 mg transdermal patch (1 mg over 3 days) RxNorm: 436023 1 Patch TD Q72H 11/25/2016 11/24/2016 Inactive losartan 100 mg tablet RxNorm: 523754 1 Tablet(s) PO daily TAKE 1 TABLET BY MOUTH DAILY 11/14/2016 05/12/2017 Active Generic For:COZAAR 100MG TAB 05/17/2016 8:31: 51 AM Synthroid 75 mcg tablet RxNorm: 824456 TAKE 1 TABLET BY MOUTH DAILY 11/14/2016 06/11/2017 Active Generic For:*SYNTHROID 0.075MG TAB 11/14/2016 9:16:33 AM N O T I C E Last quantity doesn't match original quantity citalopram 20 mg tablet RxNorm: 140875 TAKE ONE (1) TABLET BY MOUTH DAILY 11/14/2016 05/12/2017 Active Generic For:CELEXA 20MG TAB 11/14/2016 8:30:49 AM N O T I C E Last quantity doesn't match original quantity prednisone 10 mg tablets in a dose pack RxNorm: 908853 1 Tablet(s) PO UD 09/30/2016 10/05/2016 Inactive 6-5-4-3-2-1 hydrocodone 7.5 mg-acetaminophen 325 mg tablet RxNorm: 866205 1-2 Tablet(s) PO Q4H as needed 09/20/2016 01/15/2017 Inactive amlodipine 5 mg tablet RxNorm: 297308 TAKE ONE TABLET BY MOUTH EVERY DAY 08/15/2016 03/23/2017 Inactive Generic For:NORVASC 5 MG TABLET 08/15/2016 3:56:26 PM N O T I C E Last quantity doesn't match original quantity Kenalog 40 mg/mL suspension for injection RxNorm: 8246625 1 Milliliter(s) Inj 08/08/2016 08/08/2016 Inactive prednisone 10 mg tablets in a dose pack RxNorm: 315788 1 Tablet(s) PO UD 08/08/2016 08/07/2016 Inactive prednisone 10 mg tablets in a dose pack RxNorm: 662456 1 Tablet(s) PO UD 08/08/2016 08/13/2016 Inactive 6-5-4-3-2-1 Diflucan 150 mg tablet RxNorm: 329910 1 Tablet(s) PO daily 09/201607/10/2016 Inactive Synthroid 75 mcg tablet RxNorm: 938617 TAKE 1 TABLET BY MOUTH DAILY 06/16/2016 11/13/2016 Inactive Generic For:*SYNTHROID 0.075MG TAB pt would like a 90 day supply N O T I C E Last quantity doesn't match original quantity hydrocodone 7.5 mg-acetaminophen 325 mg tablet RxNorm: 728263 1-2 Tablet(s) PO Q4H as needed 06/06/2016 09/19/2016 Inactive citalopram 20 mg tablet RxNorm: 189056 TAKE ONE (1) TABLET BY MOUTH DAILY 05/18/2016 11/13/2016 Inactive Generic For:CELEXA 20MG TAB 05/17/2016 8:32:02 AM Celebrex 200 mg capsule RxNorm: 606508 1 Capsule(s) PO daily 03/23/2017 Inactive losartan 100 mg tablet RxNorm: 477976 TAKE 1 TABLET BY MOUTH DAILY 05/17/2016 11/12/2016 Inactive Generic For:COZAAR 100MG TAB 05/17/2016 8:31:51 AM amlodipine 5 mg tablet RxNorm: 721397 1 Tablet(s) PO daily 08/14/2016 Inactive Cipro 500 mg tablet RxNorm: 111394 1 Tablet(s) PO BID 201605/03/2016 Inactive Cipro 500 mg tablet RxNorm: 515193 1 Tablet(s) PO BID 201605/13/2016 Inactive Diflucan 150 mg tablet RxNorm: 167703 1 Tablet(s) PO daily 05/01/2016 Inactive Monistat Soothing Care 1.2 % topical gel RxNorm: 4701920 1 Application TOP BID 03/07/2016 No Stop Date Active Diflucan 150 mg tablet RxNorm: 790828 1 Tablet(s) PO daily 03/13/2016 Inactive Lipitor 40 mg tablet RxNorm: 067463 Tablet(s) TAKE ONE TABLET BY MOUTH AT BEDTIME 02/23/2016 02/13/2017 Inactive citalopram 20 mg tablet RxNorm: 566613 TAKE ONE (1) TABLET BY MOUTH DAILY 02/18/2016 05/17/2016 Inactive Generic For:CELEXA 20MG TAB refill request losartan 100 mg tablet RxNorm: 025392 Tablet(s) 1 Tablet, 1 time per Day 02/09/2016 05/16/2016 Inactive INSURANCE WILL NOT COVER ADELA ANDREWS UNTIL OTHER FORMULARIES HAVE BEEN TRIED AND FAILED hydrocodone 7.5 mg-acetaminophen 325 mg tablet RxNorm: 361314 1-2 Tablet(s) PO Q4H as needed 02/03/2016 06/05/2016 Inactive Synthroid 75 mcg tablet RxNorm: 919069 Tablet(s) TAKE 1 TABLET BY MOUTH DAILY 01/19/2016 06/15/2016 Inactive Generic For:*SYNTHROID 0.075MG TAB 09/22/2014 10:00 :02 AM N O T I C E PRESCRIPTION PREVIOUSLY AUTHORIZED BY DOCTOR:SWATI BEY prednisone 10 mg tablets in a dose pack RxNorm: 033453 1 Tablet(s) PO UD 01/07/2016 02/22/2016 Inactive 6-5-4-3-2-1 amlodipine 10 mg tablet RxNorm: 517308 1 Tablet(s) PO daily 11/30/2016 Inactive citalopram 20 mg tablet RxNorm: 943286 TAKE ONE (1) TABLET BY MOUTH DAILY 11/17/2015 02/14/2016 Inactive Generic For:CELEXA 20MG TAB refill request hydrocodone 7.5 mg-acetaminophen 325 mg tablet RxNorm: 211580 1-2 Tablet(s) PO Q4H as needed 10/08/2015 02/02/2016 Inactive losartan 100 mg tablet RxNorm: 936467 Tablet(s) 1 Tablet, 1 time per Day 2015 02/07/2016 Inactive INSURANCE WILL NOT COVER ADELA ANDREWS DENIED UNTIL OTHER FORMULARIES HAVE BEEN TRIED AND FAILED citalopram 20 mg tablet RxNorm: 042788 TAKE ONE (1) TABLET BY MOUTH DAILY 08/10/2015 11/07/2015 Inactive Generic For:CELEXA 20MG TAB 08/10/2015 8:59:58 AM Synthroid 75 mcg tablet RxNorm: 229831 Tablet(s) TAKE 1 TABLET BY MOUTH DAILY 05/26/2015 12/21/2015 Inactive Generic For:*SYNTHROID 0.075MG TAB 09/22/2014 10:00 :02 AM N O T I C E PRESCRIPTION PREVIOUSLY AUTHORIZED BY DOCTOR:SWATI BEY prednisone 20 mg tablet RxNorm: 614471 2 Tablet(s) PO daily 06/201505/30/2015 Inactive Lipitor 40 mg tablet RxNorm: 590963 TAKE ONE TABLET BY MOUTH AT BEDTIME 05/14/2015 02/07/2016 Inactive Generic For:LIPITOR 40MG TAB 05/13/2015 8:26:33 AM N O T I C E PRESCRIPTION PREVIOUSLY AUTHORIZED BY DOCTOR:SWATI BEY [phone] hydrocodone 7.5 mg-acetaminophen 325 mg tablet RxNorm: 908534 1-2 Tablet(s) PO Q4H as needed 05/11/2015 10/07/2015 Inactive Celebrex 200 mg capsule RxNorm: 568799 1 Capsule(s) PO daily 04/30/2016 Inactive citalopram 20 mg tablet RxNorm: 120644 TAKE ONE (1) TABLET BY MOUTH DAILY 04/27/2015 07/25/2015 Inactive Generic For:CELEXA 20MG TAB 04/26/2015 7:30:08 PM gabapentin 300 mg capsule RxNorm: 401783 1 Capsule(s) PO QID 04/02/2016 Inactive citalopram 20 mg tablet RxNorm: 241431 TAKE ONE (1) TABLET BY MOUTH DAILY 01/26/2015 04/25/2015 Inactive Generic For:CELEXA 20MG TAB 01/26/2015 8:40:11 AM losartan 100 mg tablet RxNorm: 852889 1 Tablet, 1 time per Day 01/26/2015 03/29/2015 Inactive INSURANCE WILL NOT COVER ADELA ANDREWS UNTIL OTHER FORMULARIES HAVE BEEN TRIED AND FAILED hydrocodone 7.5 mg-acetaminophen 325 mg tablet RxNorm: 495736 1-2 Tablet(s) PO Q4H as needed 01/23/2015 05/10/2015 Inactive Neurontin 100 mg capsule RxNorm: 982471 1 Capsule(s) PO TID 03/09/2015 Inactive Neurontin 100 mg capsule RxNorm: 972137 1 Capsule(s) PO TID 01/13/2015 Inactive Keflex 500 mg capsule RxNorm: 155643 1 Capsule(s) PO TID 201401/05/2015 Inactive Keflex 500 mg capsule RxNorm: 563760 1 Capsule(s) PO TID 201401/12/2015 Inactive hydrocodone 7.5 mg-acetaminophen 325 mg tablet RxNorm: 843440 1-2 Tablet(s) PO Q4H as needed 12/29/2014 01/22/2015 Inactive Duexis 800 mg-26.6 mg tablet RxNorm: 3389038 1 Tablet(s) PO TID as needed 12/19/2014 03/29/2015 Inactive Duexis 800 mg-26.6 mg tablet RxNorm: 0862534 1 Tablet(s) PO TID as needed 12/19/2014 12/18/2014 Inactive Kenalog 40 mg/mL suspension for injection RxNorm: 1365955 1 Milliliter(s) Inj 12/09/2014 12/09/2014 Inactive prednisone 10 mg tablets in a dose pack RxNorm: 395154 1 Tablet(s) PO UD 12/09/2014 12/14/2014 Inactive 6-5-4-3-2-1 amlodipine 10 mg tablet RxNorm: 291044 1 Tablet(s) PO daily 11/07/2015 Inactive citalopram 20 mg tablet RxNorm: 020583 TAKE ONE (1) TABLET BY MOUTH DAILY 10/23/2014 01/20/2015 Inactive Generic For:CELEXA 20MG TAB 10/23/2014 4:32:02 PM N O T I C E PRESCRIPTION PREVIOUSLY AUTHORIZED BY DOCTOR:SWATI BEY [phone] hydrocodone 7.5 mg-acetaminophen 325 mg tablet RxNorm: 089006 1-2 Tablet(s) PO Q4H as needed 10/22/2014 12/28/2014 Inactive Synthroid 75 mcg tablet RxNorm: 358236 TAKE 1 TABLET BY MOUTH DAILY 09/22/2014 04/19/2015 Inactive Generic For:*SYNTHROID 0.075MG TAB 09/22/2014 10:00:02 AM N O T I C E PRESCRIPTION PREVIOUSLY AUTHORIZED BY DOCTOR:SWATI BEY amlodipine 5 mg tablet RxNorm: 524333 1 Tablet(s) PO daily 07/201411/12/2014 Inactive Synthroid 75 mcg tablet RxNorm: 839993 1 Tablet(s) PO daily ecept a 1/2 tab on Monday07/11/2014 09/21/2014 Inactive Flonase Allergy Relief 50 mcg/actuation nasal spray, suspension RxNorm: 1 [place] NASAL BID 07/10/2014 12/06/2014 Inactive Benicar 20 mg tablet RxNorm: 237796 1 Tablet(s) PO daily No Start Date Active Celebrex 200 mg capsule RxNorm: 551131 1 Capsule(s) PO daily No Start Date 05/06/2015 Inactive Arava 20 mg tablet RxNorm: 158256 1 Tablet(s) PO daily No Start Date Active methotrexate sodium 2.5 mg tablet RxNorm: 516425 3 Tablet(s) PO weekly No Start Date 04/08/2015 Inactive gabapentin 300 mg capsule RxNorm: 551342 1 Capsule(s) PO TID No Start Date 04/08/2015 Inactive Plaquenil 200 mg tablet RxNorm: 805536 1 Tablet(s) PO BID No Start Date 05/22/2016 Inactive losartan 100 mg tablet RxNorm: 467832 1 Tablet(s) PO daily No Start Date 01/25/2015 Inactive Remicade intravenous RxNorm: 609850 intravenous No Start Date 03/23/2017 Inactive amlodipine 5 mg tablet RxNorm: 062743 1 Tablet(s) PO daily No Start Date 08/24/2014 Inactive citalopram 20 mg tablet RxNorm: 690223 1 Tablet(s) PO daily No Start Date 10/22/2014 Inactive Synthroid 88 mcg tablet RxNorm: 455602 1 Tablet(s) PO daily No Start Date 07/09/2014 Inactive Lipitor 40 mg tablet RxNorm: 627423 1 Tablet(s) PO daily No Start Date 05/13/2015 Inactive Synthroid 75 mcg tablet RxNorm: 065777 1 Tablet(s) PO daily No Start Date 07/10/2014 Inactive hydrocodone 7.5 mg-acetaminophen 325 mg tablet RxNorm: 836041 Tablet(s) PO as needed No Start Date 10/21/2014 Inactive Medication Administered Medication Codes Instructions Start Date Status Kenalog 40 mg/mL suspension for injection RxNorm: 5816981 1Milliliter 08/08/2016 No longer Active Kenalog 40 mg/mL suspension for injection RxNorm: 7595707 1Milliliter 12/09/2014 No longer Active Immunizations No [...] NO Growth Day 2 06/29/2016 Culture Urine [id number] URINE CULTURE SEE NOTES 04/22/2016 Culture Urine [id number] Continued Results 04/22/2016 Urine Culture Ucult Complete >100,000 col/ml aerobic growth sent to ref lab 04/20/2016 Comp Metabolic Ehi776 NA 137 mEq/L 02/10/2016 Comp Metabolic Fwu652 K 4.1 mEq/L 02/10/2016 Comp Metabolic Ljq380 CL 102 mEq/L 02/10/2016 Comp Metabolic Xbj913 CO2 28.0 mEq/L 02/10/2016 Comp Metabolic Pdm796 ANION GAP 11 02/10/2016 Comp Metabolic Tkt404 GLUCOSE 104 mg/dL 02/10/2016 Comp Metabolic Mbe943 Creat 0.7 mg/dL 02/10/2016 Comp Metabolic Rcf558 eGFR 83 ml/min/1.73m2 02/10/2016 Comp Metabolic Iev200 BUN 14 mg/dL 02/10/2016 Comp Metabolic Dzl060 B/C Ratio 18.9 Ratio 02/10/2016 Comp Metabolic Csx465 CALCIUM 9.7 mg/dL 02/10/2016 Comp Metabolic Wbt254 ALK PHOS 121 U/L 02/10/2016 Comp Metabolic Jjx602 AST(SGOT) 19 U/L 02/10/2016 Comp Metabolic Oba202 ALT(SGPT) 13 U/L 02/10/2016 Comp Metabolic Kdc386 BILI T 0.5 mg/dL 02/10/2016 Comp Metabolic Ygy486 ALBUMIN 4.3 g/dL 02/10/2016 Comp Metabolic Qpb039 TPRO 6.8 g/dL 02/10/2016 Comp Metabolic Zbw178 GLOB 2.5 g/dL 02/10/2016 Comp Metabolic Fdn875 A/G Ratio 1.7 Ratio 02/10/2016 Comp Metabolic Upk487 Osmo 275 mOsmo 02/10/2016 Lipid Ord30 CHOL 229 mg/dL 02/10/2016 Lipid Ord30 HDL 59.0 mg/dl 02/10/2016 Lipid Ord30 TRIG 252 mg/dL 02/10/2016 Lipid Ord30 LDL 120 mg/dL 02/10/2016 Lipid Ord30 C/HDL 3.9 Ratio 02/10/2016 Free T4 Yjb370 FREE T4 0.87 ng/dL 02/10/2016 Tsh Ord6 [...] 29.2 pg 02/10/2016 Cbc With Differential Ord2 [place]% 18.6 % 02/10/2016 Cbc With Differential Ord2 [...] 1.81 K/ul 02/10/2016 Cbc With Differential Ord2 [place] ABS# 1.1 K/ul 02/10/2016 Cbc With Differential Ord2 Eos ABS# 0.1 K/ul 02/10/2016 Cbc With Differential Ord2 Baso ABS# 0.1 K/ul 02/10/2016 Tsh Ord6 hTSH II 0.85 uIU/mL 04/02/2015 Lipid Ord30 CHOL 207 mg/dL 04/02/2015 Lipid Ord30 HDL 68.0 mg/dl 04/02/2015 Lipid Ord30 TRIG 193 mg/dL 04/02/2015 Lipid Ord30 LDL 100 mg/dL 04/02/2015 Lipid Ord30 C/HDL 3.0 Ratio 04/02/2015 Free T4 Uov296 FREE T4 1.09 ng/dL 04/02/2015 Free T4 Huv051 FREE T4 0.82 ng/dL 10/15/2014 Tsh Ord6 [...] Code : 8480-6 BMI: 31.8 Code : 29066-1 Heart Rate 1 : 79 bpm Height: 5'4" SpO2: 96% Temperature: 36.4 (C) / 97.5 (F) Weight: 185 lbs 08/30/2016 Blood Pressure 1: 142/88 Code : 8480-6 BMI: 31.6 Code : 97794-1 Heart Rate 1 : 80 bpm Height: 5'4" SpO2: 93% Weight: 184 lbs 08/08/2016 Blood Pressure 1: 142/76 Code : 8480-6 BMI: 29.9 Code : 20195-8 Heart Rate 1 : 80 bpm Height: 5'4" SpO2: 94% Weight: 174 lbs 06/27/2016 Blood Pressure 1: 156/72 Code : 8480-6 BMI: 30.6 Code : 15419-2 Heart Rate 1 : 78 bpm Height: 5'4" SpO2: 95% Weight: 178 lbs 05/23/2016 Blood Pressure 1: 146/84 Code : 8480-6 Heart Rate 1: 66 bpm Height: 5'4" SpO2: 94% 04/18/2016 Blood Pressure 1: 148/84 Code : 8480-6 BMI: 30.2 Code : 93894-4 Heart Rate 1 : 81 bpm Height: 5'4" SpO2: 97% Weight: 176 lbs 03/07/2016 Blood Pressure 1: 130/78 Code : 8480-6 BMI: 30.0 Code : 91686-3 Heart Rate 1 : 85 bpm Height: 5'4" SpO2: 96% Weight: 175 lbs 02/23/2016 Blood Pressure 1: 140/78 Code : 8480-6 BMI: 29.7 Code : 59919-3 Heart Rate 1 : 74 bpm Height: 5'4" SpO2: 95% Weight: 173 lbs 09/15/2015 Blood Pressure 1: 140/88 Code : 8480-6 BMI: 29.4 Code : 14029-4 Heart Rate 1 : 81 bpm Height: 5'4" SpO2: 97% Weight: 171 lbs 8 oz 05/26/2015 Blood Pressure 1: 150/80 Code : 8480-6 BMI: 31.6 Code : 36721-1 Heart Rate 1 : 70 bpm Height: 5'4" SpO2: 96% Weight: 184 lbs 04/09/2015 Blood Pressure 1: 136/74 Code : 8480-6 BMI: 31.4 Code : 81217-9 Heart Rate 1 : 91 bpm Height: 5'4" SpO2: 94% Weight: 183 lbs 03/30/2015 Blood Pressure 1: 130/72 Code : 8480-6 BMI: 30.9 Code : 55161-6 Heart Rate 1 : 80 bpm Height: 5'4" SpO2: 97% Waist Measure (cm): 102 cm Weight: 180 lbs 03/10/2015 Blood Pressure 1: 152/80 Code : 8480-6 BMI: 31.1 Code : 40954-5 Heart Rate 1 : 66 bpm Height: 5'4" SpO2: 98% Weight: 181 lbs 12/16/2014 Blood Pressure 1: 132/88 Code : 8480-6 Blood Pressure 1: 132/88 Code: 8480-6 Heart Rate 1: 88 bpm SpO2: 98% Weight: 183 lbs 12/09/2014 Blood Pressure 1: 140/82 Code : 8480-6 BMI: 31.2 Code : 59200-1 Heart Rate 1 : 105 bpm Height: 5'4" SpO2: 93% Weight: 182 lbs 11/13/2014 Blood Pressure 1: 148/88 Code : 8480-6 BMI: 31.8 Code : 69094-8 Heart Rate 1 : 54 bpm Height: 5'4" SpO2: 98% Weight: 185 lbs 07/10/2014 Blood Pressure 1: 144/96 Code : 8480-6 BMI: 31.4 Code : 51677-5 Heart Rate 1 : 99 bpm Height: [...] data Encounters Encounter Performer Location Codes Date ([id number]) 86408 EST. 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 PATIENT, LEVEL IV Diagnosis: Atrophy of thyroid (acquired)[ICD10: E03.4] Diagnosis: Pleurisy[ICD10: R09.1] Diagnosis: Essential (primary) hypertension[ICD10: I10] Shannon Falk MD, [facility] CPT-4: 38861 08/30/2016 ([id number]) 86374 EST. PATIENT, LEVEL III Diagnosis: Pleurisy[ICD10: R09.1] Elizabet Falk MD, [facility] CPT-4: 89853 08/08/2016 [id number] EST. PATIENT, LEVEL III Diagnosis: Dysuria[ICD10: R30.0] Diagnosis: Other pruritus[ICD10: L29.8] Shila Falk MD, [facility] CPT-4 : 10044 06/27/2016 ([id number]) 68759 EST. PATIENT, LEVEL III Diagnosis: Pain in left foot[ICD10: M79.672] Diagnosis: Pain in left toe(s)[ICD10: M79.675] Elizabet Falk MD, [facility] CPT-4: 67325 05/23/2016 42891 EST. PATIENT, LEVEL III Diagnosis: Candidiasis of vulva and vagina[ICD10: B37.3] Diagnosis: Dysuria[ICD10: R30.0] Shila Falk MD, [facility] CPT-4: 31666 04/18/2016 87971 EST. PATIENT, LEVEL III Diagnosis: Other pruritus[ICD10: L29.8] Diagnosis: Candidiasis of vulva and vagina[ICD10: B37.3] Shila Falk MD, [facility] CPT-4: 68229 03/07/2016 ([id number]) 51244 EST. PATIENT, LEVEL IV Diagnosis: Essential (primary) hypertension[ICD10: I10] Diagnosis: Pain in left hip[ICD10: M25.552] Diagnosis: Pain in right hip[ICD10: M25.551] Diagnosis: Functional diarrhea[ICD10: K59.1] Diagnosis: Atrophy of thyroid (acquired)[ICD10: E03.4] Shannon Falk MD, [facility] CPT-4: 67292 02/23/2016 ([id number]) 54420 EST. PATIENT, LEVEL IV Diagnosis: Essential (primary) hypertension[ICD10: I10] Diagnosis: Mixed hyperlipidemia[ICD10: E78.2] Diagnosis: Major depressive disorder, single episode, unspecified[ICD10: F32.9] Shannon Falk MD, [facility] CPT-4: 06080 09/15/2015 22145 EST. PATIENT, LEVEL III Diagnosis: Rash and other nonspecific skin eruption[ICD10: R21] Shila Falk MD, [facility] CPT-4: 69381 05/26/2015 ([id number]) 52474 EST. PATIENT, LEVEL IV Diagnosis: Essential (primary) hypertension[ICD10: I10] Diagnosis: Foot drop, left foot[ICD10: M21.372] Diagnosis: Sacroiliitis, not elsewhere classified[ICD10: M46.1] Shannon Falk MD, [facility] CPT-4: 80037 04/09/2015 ([id number]) 49112 EST. 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 PATIENT, LEVEL III Diagnosis: Trochanteric bursitis, left hip[ICD10: M70.62] Diagnosis: Iliotibial band syndrome, left leg[ICD10: M76.32] Diagnosis: Sciatica, left side[ICD10: M54.32] Elizabet Falk MD, [facility] CPT-4: 11547 12/16/2014 ([id number]) 97146 EST. PATIENT, LEVEL III Diagnosis: Sciatica, left side[ICD10: M54.32] Diagnosis: Sacroiliitis, not elsewhere classified[ICD10: M46.1] Elizabet Falk MD, [facility] CPT-4: 05603 12/09/2014 ([id number]) 45739 EST. 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] Diagnosis: Carpal tunnel syndrome, unspecified upper limb[ICD10: G56.00] Shannon Falk MD, [facility] CPT-4: 00819 11/13/2014 ([id number]) OFFICE VISIT, NEW - LEVEL 4 Diagnosis: ESSENTIAL HYPERTENSION[ICD9: 401.9] Diagnosis: HYPERLIPIDEMIA[ICD9: 272.4] Diagnosis: DEPRESSIVE DISORDER NEC[ICD9: 311] Diagnosis: Diarrhea[ICD9: 787.91] Shannon Falk MD, [facility] CPT-4: 27515 07/10/2014 Plan of Care Planned Activity Notes [...] Summary Completed 03/24/2017 App[facility]ment[facility] ([facility] min) Moderate 03/16/2017 Appointment: Shannon Falk WPtel: [address] [place], [place] [id number] (15 min) Moderate 03/01/2017 Visit Plan: Hypertension [...] care. 08/30/2016 Appointment: Shannon Falk WPtel: [phone] [facility] (15 min) Moderate 08/30/2016 Patient Education: [...] of plan. 08/08/2016 Appointment: Elizabet Donaldson WPtel: [phone] [phone] [place] (30 min) Complex 08/08/2016 Patient Education: Patient Medication Summary Completed 08/08/2016 Referral: Delia Bernstein WPtel: [phone] [place], [place] [address] Referral Initiated 08/01/2016 Visit Plan: Vaginal yeast [...] will refer. 06/27/2016 Appointment: Shila Deluna WPtel: [phone] [facility] (30 min) Complex 06/27/2016 Patient Education: Patient Medication Summary Completed 06/27/2016 Care Plan: Referral Order SNOMED-CT : [id number] Pending 06/27/2016 Visit Plan: Left foot, 1st and 2nd toe pain-suspect fracture of left great toe-will obtain xrays and proceed as indicated. Patient verbalized understanding of plan. 05/23/2016 Appointment: Mendoza Elizabet WPtel: [phone] [phone] [place] (15 min) Moderate 05/23/2016 Patient Education: [...] probiotics 02/23/2016 Appointment: [facility] [phone] [facility] [place] (15 min) Moderate 02/23/2016 Patient [...] Summary Completed 09/15/2015 Appointment: Shannon Falk WPtel: [address] [place], [place] [id number] (15 min) Moderate 07/29/2015 Visit Plan: Rash [...] - vitamin B12 liquid 2000mcg daily - [facility] sells the liquid b12, folic acid - take daily. metanex 1 capsule twice daily - call office if this seems to help decrease nerve pain increase the night-time dosing of gabapentin to 300mg in AM, Noon, 6pm and 10pm 04/09/2015 Appointment: [facility] [phone] [facility] (15 min) Moderate 04/09/2015 Patient Education: [...] 2012. 03/10/2015 App[facility]ment: [facility] [phone] [facility] (15 min) Moderate 03/10/2015 Patient Education: Patient Medication Summary Completed 03/10/2015 Care Plan: SCREENINGMAMMOGRAPHYDIGITAL LOINC : 62858-4 Ordered 03/10/2015 Care Plan: Referral Order SNOMED-CT : [id number] Ordered 03/10/2015 Care Plan: Referral Order SNOMED-CT : [id number] Ordered 03/10/2015 Visit Plan: Left hip bursitis/Iliotibial [...] 12/16/2014 Care Plan: Referral Order SNOMED-CT : [id number] Ordered 12/16/2014 Visit Plan: Sacroiliitis - back [...] brace. 11/13/2014 Appointment: [facility]el[facility] [phone] [facility] Follow up 11/13/2014 Patient Education: Patient [...] stomach pain. ALIGN PROBIOTIC - TAKE DAILY ([employer] OR [employer] App -TWO OTHER PROBIOTICS THAT ARE HIGH QUALITY) CIPROFLOXACIN TO BE TAKEN IF NEEDED IF THE DIARRHEA DOES NOT IMPROVE OR IF IT WORSENS. 07/10/2014 Appointment: [facility]el[facility] [phone] [facility] [place] ([place] New Patient 07/10/2014 Patient Education: Patient Medication Summary Completed 07/10/2014 Patient Education: Hypertension Completed 07/10/2014 Referral: Darci Spann Referral Relationship Referral: External, Ordering Provider Referral Appointment Requested Referral: Delia Bernstein WPtel: [phone] [place], [place] [address] Referral Initiated Referral: External, Ordering Provider Referral [...] ALIGN PROBIOTIC - TAKE DAILY (CULTURELLE OR Setup [employer] [facility] -TWO OTHER PROBIOTICS THAT ARE [...] ALIGN PROBIOTIC - TAKE DAILY (CULTURELLE OR Setup [employer] -TWO OTHER PROBIOTICS THAT ARE [...] follow expected course, or if any worse. Quintin injection today in the office-start prednisone tomorrow. [...] plan. vitamin B12 liquid 2000mcg daily - [facility] sells the liquid b12 folic acid [...] - vitamin B12 liquid 2000mcg daily - [facility] sells the liquid b12, folic acid [...]
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
[2018-03-17] MEDS ORDERED: ONDANSETRON 4 MG/2 ML (SDV) Z0FRAN IVP ONE (11:45)
[2018-03-17] MEDS ORDERED: NS IV 1000 ML 1,000 ML IV SCH (11:45)
[2018-03-17 11:49] LABS: BILIRUBIN,URINE NEGATIVE (NEGATIVE); CLARITY,URINE CLEAR; COLOR,URINE AMBER; GLUCOSE, URINE (UA) NEGATIVE (NEGATIVE); KETONES,URINE 2+ (NEGATIVE); LEUKOCYTE ESTERASE ,URINE 1+ (NEGATIVE); NITRITE,URINE NEGATIVE (NEGATIVE); PH,URINE 5 (5-9); PROTEIN,URINE 2+ (NEGATIVE); UROBILINOGEN,URINE 1 MG/DL (NORMAL)
[2018-03-17 11:52] LABS: BACTERIA,URINE MODERATE /HPF; SQUAMOUS EPITHELIAL CELL,UR TNTC /HPF
[2018-03-17 11:58] LABS: ALANINE AMINOTRANSFERASE 10 U/L (0-55); ALBUMIN 4.7 GM/DL (3.2-4.5); ALKALINE PHOSPHATASE 115 U/L (40-136); AMYLASE 53 U/L (25-125); BILIRUBIN,TOTAL 1.1 MG/DL (0.1-1.0); BUN/CREATININE RATIO 14; CALCIUM 10.6 MG/DL (8.5-10.1); CARBON DIOXIDE 24 MMOL/L (21-32); CHLORIDE 86 MMOL/L (98-107); CREATININE SERUM 1.18 MG/DL (0.60-1.30); GFR ESTIMATED 46; GLUCOSE 152 MG/DL (70-105); LIPASE 46 U/L (8-78); POTASSIUM 3.8 MMOL/L (3.6-5.0); SODIUM 126 MMOL/L (135-145); TOTAL PROTEIN 8.1 GM/DL (6.4-8.2)
--- NOTE | 2018-03-17 12:23 | NUR ---
PATIENT RESTING QUIETLY IN BED. PATIENT STATES NAUSEA IS SLIGHTLY IMPROVED WITH MEDICATIONS.
--- NOTE | 2018-03-17 12:32 | ED Abdominal Pain ---
General Chief Complaint: Abdominal/GI Problems Stated Complaint: N/V SENT FROM [facility] Nursing Triage Note: PATIENT AMBULATORY TO ER ROOM 4 WITH USE OF WALKER. PATIENT IS CONSCIOUS, ALERT , AND ORIENTED X 4 WITH COMPLAINT OF NAUSEA, VOMITING, HEADACHE AND BODY ACHES THAT BEGAN YESTERDAY. PATIENT WAS SEEN AT [facility] THIS MORNING AND SENT TO ER FOR FURTHER EVALUATION. Sepsis Screen: No Definite Risk Source of Information: Patient Exam Limitations: No Limitations History of Present Illness Date Seen by Provider: Mar 17, 2018 Time Seen by Provider: 11:25 Initial Comments 67-year-old female who presents to the emergency room with complaints of severe nausea and vomiting, body aches, and headache that started yesterday morning. She was seen at [facility] this morning and was sent to the emergency room for further evaluation. She has a history of hyponatremia and fears that this is the cause of her nausea and vomiting. Denies fevers and abdominal pain. Timing/Duration: 24 Hours Associated Symptoms: Headache, Nausea/Vomiting Allergies and Home Medications Allergies Coded Allergies: Sulfa (Sulfonamide Antibiotics) (Verified Allergy, Intermediate, HIVES, 03/24/15) Home Medications Amlodipine Besylate 5 Mg Tablet, 10 MG PO DAILY, (Reported) Atorvastatin Calcium 40 Mg Tablet, 40 MG PO HS, (Reported) Benicar Hct 20 Mg Tablet, 100 MG PO DAILY, (Reported) Celecoxib 200 Mg Capsule, 200 MG PO DAILY, (Reported) Citalopram Hydrobromide 20 Mg Tablet, 20 MG PO DAILY, (Reported) Gabapentin 300 Mg Capsule, 300 MG PO TID, (Reported) Hydrocodone Bit/Acetaminophen 1 Each Tablet, 1-2 EACH PO Q 4 - 6 HRS PRN PRN for PAIN, (Reported) Hydroxychloroquine Sulfate 200 Mg Tab, 200 MG PO BID, (Reported) Leflunomide 20 Mg Tablet, 20 MG PO DAILY, (Reported) Levothyroxine Sodium 75 Mcg Tablet, 75 MCG PO DAILY, (Reported) Methotrexate Sodium 2.5 Mg Tablet, 10 MG PO MON @ 1200, (Reported) TAKE 3 (2.5MG) TABLETS ON MONDAY AT NOON Patient Home Medication List Home Medication List Reviewed: Yes Review of Systems Review of Systems Constitutional: see HPI, malaise Gastrointestinal: See HPI, Nausea, Vomiting Psychiatric/Neurological: See HPI, Headache All Other Systems Reviewed Negative Unless Noted: Yes Past Xcxutda-Kvhrdd-Oxjtbu Hx Past Med/Social Hx: Reviewed Nursing Past Med/Soc Hx Patient Social History Alcohol Use: Denies Use Recreational Drug Use: No Smoking Status: Never a Smoker 2nd Hand Smoke Exposure: No Recent Foreign Travel: No Contact w/Someone Who Travel: No Recent Infectious Disease Expo: No Recent Hopitalizations: Yes (TOTAL KNEE REPLACEMENT RIGHT KNEE 18 DAYS AGO ) Physical Abuse: No Sexual Abuse: No Mistreated: No Fear: No Immunizations Up To Date PED Vaccines UTD: Yes Seasonal Allergies Seasonal Allergies: No Past Medical History Surgeries: Yes Hysterectomy, Orthopedic, Tonsillectomy Respiratory: No Cardiac: Yes High Cholesterol, Hypertension Neurological: No : No Reproductive Disorders: No Female Reproductive Disorders: Denies PALS NURSE History: Hysterectomy Sexually Transmitted Disease: No HIV/AIDS: No Genitourinary: No Gastroesophageal Reflux Musculoskeletal: Yes (KNEE REPLACEMENT, FOOT SURGERIES, ROTATOR CUFF SURGERY) Endocrine: No Hypothyroidsim HEENT: No Cancer: No Psychosocial: No Integumentary: No Blood Disorders: No Family Medical History Reviewed Nursing Family Hx Chest pain 19 FATHER Congestive heart failure 19 FATHER Family history: Alzheimer's disease 19 MOTHER Family history: Cardiovascular disease 19 FATHER Family history: Hypertension 19 FATHER Family history: Thyroid disorder G8 SISTER Heart disease 19 FATHER Hypercholesterolemia 19 FATHER 19 MOTHER G8 BROTHER Myocardial infarction 19 FATHER Stroke 19 FATHER No Family History of: Abdominal aortic aneurysm Eleazar's disease Alcoholism Aphasia Cancer Cancer of colon Cataract Cystic fibrosis Dementia Dysphagia Family history: Diabetes mellitus Family history: Gastrointestinal disease History of - anemia History of drug abuse Human immunodeficiency virus (HIV) seropositivity Infertile Parkinson's disease Prostate cancer Psychotic disorder Seizure disorder Tuberculosis Physical Exam Vital Signs Vital Signs - First Documented 03/17/18 11:15 Temp 96.6 Pulse 97 Resp 16 B/P (MAP) 155/88 (110) O2 Delivery Room Air Capillary Refill : Less Than 3 Seconds Height/Weight/BMI Height: 5'4.00" Weight: 175lbs. 4.0oz. 79.063971ei; 30.89 BMI Method:Stated General Appearance: WD/WN, no apparent distress HEENT: PERRL/EOMI, normal ENT inspection, TMs normal, pharynx normal Respiratory: chest non-tender, lungs clear, normal breath sounds, no respiratory distress, no accessory muscle use Cardiovascular: normal peripheral pulses, regular rate, rhythm, no edema, no gallop, no JVD, no murmur Gastrointestinal: normal bowel sounds, non tender, soft, no organomegaly, no pulsatile mass Extremities: no pedal edema, no calf tenderness, normal capillary refill Neurologic/Psychiatric: alert, normal mood/affect, oriented x 3 Skin: normal color, warm/dry Progress/Results/Core Measures Results/Orders Lab Results Laboratory Tests Test 03/17/18 11:28 03/17/18 11:43 Range/Units White Blood Count 10.2 4.3-11.0 10^3/uL Red Blood Count 4.25 L 4.35-5.85 10^6/uL Hemoglobin 12.7 11.5-16.0 G/DL Hematocrit 36 35-52 % Mean Corpuscular Volume 85 80-99 FL Mean Corpuscular Hemoglobin 30 25-34 PG Mean Corpuscular Hemoglobin Concent 35 32-36 G/DL Red Cell Distribution Width 12.0 10.0-14.5 % Platelet Count 487 H 130-400 10^3/uL Mean Platelet Volume 9.4 7.4-10.4 FL Neutrophils (%) (Auto) 77 H 42-75 % Lymphocytes (%) (Auto) 14 12-44 % Monocytes (%) (Auto) 9 0-12 % Eosinophils (%) (Auto) 0 0-10 % Basophils (%) (Auto) 0 0-10 % Neutrophils # (Auto) 7.8 1.8-7.8 X 10^3 Lymphocytes # (Auto) 1.4 1.0-4.0 X 10^3 Monocytes # (Auto) 0.9 0.0-1.0 X 10^3 Eosinophils # (Auto) 0.0 0.0-0.3 10^3/uL Basophils # (Auto) 0.0 0.0-0.1 10^3/uL Sodium Level 126 L 135-145 MMOL/L Potassium Level 3.8 3.6-5.0 MMOL/L Chloride Level 86 L 98-107 MMOL/L Carbon Dioxide Level 24 21-32 MMOL/L Anion Gap 16 H 5-14 MMOL/L Blood Urea Nitrogen 17 7-18 MG/DL Creatinine 1.18 0.60-1.30 MG/DL Estimat Glomerular Filtration Rate 46 BUN/Creatinine Ratio 14 Glucose Level 152 H 70-105 MG/DL Calcium Level 10.6 H 8.5-10.1 MG/DL Corrected Calcium 8.5-10.1 MG/DL Total Bilirubin 1.1 H 0.1-1.0 MG/DL Aspartate Amino Transf (AST/SGOT) 17 5-34 U/L Alanine Aminotransferase (ALT/SGPT) 10 0-55 U/L Alkaline Phosphatase 115 40-136 U/L Total Protein 8.1 6.4-8.2 GM/DL Albumin 4.7 H 3.2-4.5 GM/DL Amylase Level 53 25-125 U/L Lipase 46 8-78 U/L TSH [facility] Testing 0.74 0.35-4.94 UIU/ML Urine Color DINA H Urine Clarity CLEAR Urine pH 5 5-9 Urine Specific [place] 1.025 H 1.016-1.022 Urine Protein 2+ H NEGATIVE Urine Glucose (UA) NEGATIVE NEGATIVE Urine Ketones 2+ H NEGATIVE Urine Nitrite NEGATIVE NEGATIVE Urine Bilirubin NEGATIVE NEGATIVE Urine Urobilinogen 1 NORMAL MG/DL Urine Leukocyte Esterase 1+ H NEGATIVE Urine RBC (Auto) NEGATIVE NEGATIVE Urine RBC NONE /HPF Urine WBC 2-5 /HPF Urine Squamous Epithelial Cells TNTC H /HPF Urine Crystals NONE /LPF Urine Bacteria MODERATE H /HPF Urine Casts NONE /LPF Urine Mucus MODERATE H /LPF Urine Culture Indicated NO My Orders Orders - SEBAS ESCALERA Comprehensive Metabolic Panel (03/17/18 11:28) Lipase (03/17/18 11:28) Amylase (03/17/18 11:28) Ua Culture If Indicated (03/17/18 11:28) Saline Lock/Iv-Start (03/17/18 11:28) Cbc With Automated Diff (03/17/18 11:28) Thyroid Analyzer (03/17/18 11:28) Ondansetron Injection (Zofran Injectio (03/17/18 11:45) Ns Iv 1000 Ml (Sodium Chloride 0.9%) (03/17/18 11:45) Medications Given in ED Current Medications Medications Dose Ordered Sig/Shaina Route Start Time Stop Time Status Last Admin Dose Admin Ondansetron HCl 8 mg ONCE ONCE IVP 03/17/18 11:45 03/17/18 11:46 DC 03/17/18 11:48 8 MG Vital Signs/I&O 03/17/18 11:15 Temp 96.6 Pulse 97 Resp 16 B/P (MAP) 155/88 (110) O2 Delivery Room Air Blood Pressure Mean: 110 Progress Progress Note : Time: 12:39 Progress Note I have seen and evaluated the patient. I've informed her of her laboratory findings. I have discussed the case with Dr. Machado and she agrees to accept the patient to her services and recommends restricting the patient's oral fluid intake to 800 mL's daily. Patient agrees with plans for admission. Departure Communication (Admissions) Time/Spoke to Admitting Phy: 12:39 Dr. Machado Impression Primary Impression: Hyponatremia Additional Impression: Nausea & vomiting Disposition: 09 ADMITTED INPATIENT Condition: Improved Admissions Decision to Admit Reason: Admit from ER (General) Decision to Admit/Date: Mar 17, 2018 Time/Decision to Admit Time: 13:02 Departure-Patient Inst. Referrals: MELIZA LACY MD (PCP/Family) Primary Care Physician SEBAS ESCALERA Mar 17, 2018 12:32
--- OUTSIDE RECORDS SUMMARY | 2018-03-17 12:53 | XMS REPORT | Encounter Summary ---
Author Author [facility] Organization [facility] Address Unknown Phone Unavailable Care Team Providers Care Computer Video Game Designer Name Role Phone Shannon Falk MD PCP Reason for Visit * HH Auth Cert Status Reason Specialty Diagnoses / Referred By Referred To Procedures Contact Contact Encounter Details Date Type Department Care Team Description 03/09/2018 Home Care Visit [facility] and [facility]osp[facility] Jenny Covarrubias, PT PT HOME VISIT [place] [phone] [address] Social History Tobacco Use Types Packs/Day Years Used Date Never Smoker Smokeless Tobacco: Never Used Alcohol Use Drinks/Week oz/Week Comments Yes RARELY Sex Assigned at Date Recorded Not on file as of this encounter Last Filed Vital Signs Vital Sign Reading Time Taken Blood Pressure 124/64 03/09/2018 9:47 AM CABINET INSTALLER Pulse 78 03/09/2018 9:47 AM CABINET INSTALLER Temperature 36.7 C (98.1 F) 03/09/2018 9:47 AM CABINET INSTALLER Respiratory Rate - - Oxygen Saturation 96% 03/09/2018 9:47 AM CABINET INSTALLER Inhaled Oxygen - - Concentration Weight - - Height - - Body Mass Index - - in this encounter Plan of Treatment Date Type Specialty Care Team Description 04/16/2018 Appointment Valve [facility] Vascular as of this encounter Visit Diagnoses Not on filein this encounter
--- OUTSIDE RECORDS SUMMARY | 2018-03-17 12:53 | XMS REPORT | Encounter Summary ---
Author Author [facility] Organization [facility] Address Unknown Phone Unavailable Care Team Providers Care Audit Mgr Name Role Phone Shannon Falk MD PCP Reason for Visit * HH Auth Cert Status Reason Specialty Diagnoses / Referred By Referred To Procedures Contact Contact Encounter Details Date Type Department Care Team Description 03/12/2018 Home Care Visit [facility] Home Care and Hospice Jenny Covarrubias, PT PT [facility] DISCHARGE [address] [address] Social History Tobacco Use Types Packs/Day Years Used Date Never Smoker Smokeless Tobacco: Never Used Alcohol Use Drinks/Week oz/Week Comments Yes RARELY Sex Assigned at Date Recorded Not on file as of this encounter Last Filed Vital Signs Vital Sign Reading Time Taken Blood Pressure 120/64 03/12/2018 10:57 AM SALES PLANNER Pulse 72 03/12/2018 10:57 AM SALES PLANNER Temperature - - Respiratory Rate - - Oxygen Saturation 97% 03/12/2018 10:57 AM SALES PLANNER Inhaled Oxygen - - Concentration Weight - - Height - - Body Mass Index - - in this encounter Plan of Treatment Date Type Specialty Care Team Description 04/16/2018 Appointment Valve and Vascular as of this encounter Visit Diagnoses Not on filein this encounter
--- OUTSIDE RECORDS SUMMARY | 2018-03-17 12:53 | XMS REPORT | Clinical Summary ---
Author Author [facility] Organization [facility] Address Unknown Phone Unavailable Care Team Providers Care Bank Vault Attendant Name Role Phone Shannon Falk MD PCP [...] Radicular leg pain 05/25/2015 RA (rheumatoid arthritis) ([facility]) Overview: APPROX 10 YRS Neuropathy Overview: LEFT [...] 03/02/2018 Home Care Visit [facility] [place] [facility] G TELEPHONE ENCOUNTER 01/29/2018 Hospital Valve [...] Taken Blood Pressure 120/64 03/12/2018 10:57 AM EXTRUSION MACHINE OPERATOR Pulse 72 03/12/2018 10:57 AM EXTRUSION MACHINE OPERATOR Temperature 36.7 C (98.1 F) 03/09/2018 9:47 AM EXTRUSION MACHINE OPERATOR Respiratory Rate 17 07/31/2015 4:07 PM CDT Oxygen Saturation 97% 03/12/2018 10:57 AM EXTRUSION MACHINE OPERATOR Inhaled Oxygen - - Concentration Weight 81.6 kg (180 lb) 01/29/2018 10:00 AM EXTRUSION MACHINE OPERATOR Height 162.6 cm (5' 4") 01/29/2018 10:00 AM EXTRUSION MACHINE OPERATOR Body Mass Index 30.9 01/29/2018 10:00 AM EXTRUSION MACHINE OPERATOR Plan of Treatment Date Type Specialty Care [...] Screen Completed 05/13/2013 Implants Implanted Type Area Gas Line Servicer Device Expiration Model / Identifier Date Serial / Lot Implant Allograft Vivigen 1ml Non-Tissue N/A: Spine LIFENET 2015 BL-1500-00 Bl-1500-001 - [id number] Implant Lumbar 1 / Implanted: Qty: 1 on 07/28/2015 by [id number] Frank Adbi MD 12 / Implant Allograft Vivigen 1ml Non-Tissue N/A: Spine LIFENET 2015 BL-1500- -1500-001 - [id number] Implant Lumbar 1 / Implanted: Qty: 1 on 07/28/2015 by [id number] Frank Abdi MD 06 / Implant Spacer Rise 10 X 26 8-15mm Non-Tissue N/A: Spine GLOBUS 193.122 / 193.122 - [id number] Implant Lumbar / Implanted: Qty: 1 on 07/28/2015 by Frank Abdi MD Needle Jamshidi Beveled Tip 10ga X Non-Tissue N/A: Spine DEPUY SPINE 5" 2839-02-510 - [id number] Implant Lumbar 0 / Implanted: Qty: 2 on 07/28/2015 by / Frank Abdi MD Implant Screw X-Tab Miguel 6 X 40mm Non-Tissue N/A: Spine DEPUY SPINE 1866-60-140 - [id number] Implant Lumbar 0 / Implanted: Qty: 1 on 07/28/2015 by / Frank Abdi MD Implant Screw X-Tab Miguel 6 X 45mm Non-Tissue N/A: Spine DEPUY SPINE 60-145 - [id number] Implant Lumbar 5 / Implanted: Qty: 3 on 07/28/2015 by / Frank Abdi MD Implant Morales 45mm - - Non-Tissue N/A: Spine DEPUY SPINE [id number] Implant Lumbar 5 / Implanted: Qty: 2 on 07/28/2015 by / Frank Abdi MD Implant Screw Inner Set 1866-- Non-Tissue N/A: Spine DEPUY SPINE - [id number] Implant Lumbar 0 / Implanted: Qty: 4 on 07/28/2015 by / Frank Abdi MD Results Not on filefrom Last 3 Months
--- OUTSIDE RECORDS SUMMARY | 2018-03-17 12:54 | XMS REPORT | Encounter Summary ---
Author Author [facility] Organization [facility] Address Unknown Phone Unavailable Care Team Providers Care Author'S Agent Name Role Phone Shannon Falk MD PCP Reason for Visit * HH Auth Cert Status Reason Specialty Diagnoses / Referred By Referred To Procedures Contact Contact Encounter Details Date Type Department Care Team Description 03/08/2018 Home Care Visit [facility] Jenny Boucher , RN SN MED REVIEW NOTE [facility] [address] [address] Social History Tobacco Use Types [...]
--- OUTSIDE RECORDS SUMMARY | 2018-03-17 12:54 | XMS REPORT | Encounter Summary ---
Author Author [facility] Organization [facility] Address Unknown Phone Unavailable Care Team Providers Care Surgical Elastic Knitter Hand Frame Name Role Phone Shannon Falk MD PCP Encounter Details Date Type Department Care Team Description 03/02/2018 Home Care Visit [facility] Home Care and Hospice Werner Ramirez TELEPHONE ENCOUNTER [facility] [address] [address] Social History Tobacco Use Types [...]
--- OUTSIDE RECORDS SUMMARY | 2018-03-17 12:54 | XMS REPORT | Encounter Summary ---
Author Author [facility] Organization [facility] Address Unknown Phone Unavailable Care Team Providers Care Lawn Care Technician Name Role Phone Shannon Falk MD PCP Reason for Visit * Reason Comments Leg pain Leg Swelling Encounter Details Date Type Department Care Team Description 01/29/2018 [facility] Chante Farrar APRN Varicose veins of both Encounter [facility] [address] lower extremities with [address], [address] pain (Primary Dx) [place] [address] [place] [address] [phone] Social History Tobacco Use Types Packs/Day Years Used Date Never Smoker Smokeless Tobacco: Never Used Alcohol Use Drinks/Week oz/Week Comments Yes RARELY Sex Assigned at Date Recorded Not on file as of this encounter Last Filed Vital Signs Vital Sign Reading Time Taken Blood Pressure 147/77 01/29/2018 10:00 AM FUND DIRECTOR Pulse 80 01/29/2018 10:31 AM FUND DIRECTOR Temperature - - Respiratory Rate - - Oxygen Saturation - - Inhaled Oxygen - - Concentration Weight 81.6 kg (180 lb) 01/29/2018 10:00 AM FUND DIRECTOR Height 162.6 cm (5' 4") 01/29/2018 10:00 AM FUND DIRECTOR Body Mass Index 30.9 01/29/2018 10:00 AM FUND DIRECTOR in this encounter Medications at Time of [...] Chante Farrar APRN - 01/29/2018 10:04 AM FUND DIRECTOR Formatting of this note may be different from the original. [facility] Appointment Date: 01/29/2018 Shannon Falk MD [address] [address] RE: Dalila Hameed : 1950 Visit provider: Chante Farrar RN, [facility] Dear Shannon Falk MD, I had the [...] leg pain RADICULAR PAIN RA (rheumatoid arthritis) ([facility]) RHEUMATOID ARTHRITIS Neuropathy NEUROPATHY Hypothyroidism HYPOTHYROIDISM Essential [...] 30.0-34.9) Osteoarthritis HANDS, HIPS RA (rheumatoid arthritis) ([facility]) APPROX 10 YRS Radicular leg pain 05/25/2015 Rheumatoid arthritis of spine ([facility]) CERVICAL SPINE; HAS FULL ROM WITH NECK Sciatica DOWN LEFT LEG Urinary incontinence STRESS INCONTINENCE Past Surgical History: Procedure Laterality Date BUNIONECTOMY Right FRACTURE SURGERY Left CLAVICAL FX FUSION, SPINE, LUMBAR, INTERBODY, TRANSFORAMINAL APPROACH Left 07/28/2015 Procedure: L4-L5 FUSION TRANSFORAMINAL LUMBAR INTERBODY SPINE; Surgeon: Frank Abdi MD; Location: [facility]; Service: Neurosurgery; Laterality: Left; HYSTERECTOMY MARTY [...]
--- OUTSIDE RECORDS SUMMARY | 2018-03-17 12:54 | XMS REPORT | Encounter Summary ---
Author Author [facility] Organization [facility] Address Unknown Phone Unavailable Care Team Providers Care Boiler Control Technician Name Role Phone Shannon Falk MD PCP Reason for Visit * HH Auth Cert Status Reason Specialty Diagnoses / Referred By Referred To Procedures Contact Contact Encounter Details Date Type Department Care Team Description 03/06/2018 Home Care Visit [facility] Jenny Covarrubias, PT PT HOME VISIT [place] [phone] [address] Social History Tobacco Use Types Packs/Day Years Used Date Never Smoker Smokeless Tobacco: Never Used Alcohol Use Drinks/Week oz/Week Comments Yes RARELY Sex Assigned at Date Recorded Not on file as of this encounter Last Filed Vital Signs Vital Sign Reading Time Taken Blood Pressure 140/80 03/06/2018 2:57 PM MANAGER STRATEGIC ALLIANCES Pulse 78 03/06/2018 2:57 PM MANAGER STRATEGIC ALLIANCES Temperature - - Respiratory Rate - - Oxygen Saturation 97% 03/06/2018 2:57 PM MANAGER STRATEGIC ALLIANCES Inhaled Oxygen - - Concentration Weight - - Height - - Body Mass Index - - in this encounter Plan of Treatment Date Type Specialty Care Team Description 04/16/2018 Appointment [facility] Vascular as of this encounter Visit Diagnoses Not on filein this encounter
--- OUTSIDE RECORDS SUMMARY | 2018-03-17 12:54 | XMS REPORT | Encounter Summary ---
Author Author [facility] Organization [facility] Address Unknown Phone Unavailable Care Team Providers Care Supervisor Research Kennel Name Role Phone Shannon Falk MD PCP Reason for Visit * HH Auth Cert Status Reason Specialty Diagnoses / Referred By Referred To Procedures Contact Contact Encounter Details Date Type Department Care Team Description 03/03/2018 Home Care Visit [facility] Home Care [facility] Jenny Covarrubias, PT PT [place] [address] [address] Social History Tobacco Use Types Packs/Day Years Used Date Never Smoker Smokeless Tobacco: Never Used Alcohol Use Drinks/Week oz/Week Comments Yes RARELY Sex Assigned at Date Recorded Not on file as of this encounter Last Filed Vital Signs Vital Sign Reading Time Taken Blood Pressure 150/78 03/03/2018 12:54 PM CONTROL VALVE MECHANIC Pulse 72 03/03/2018 12:54 PM CONTROL VALVE MECHANIC Temperature 36.7 C (98.1 F) 03/03/2018 12:54 PM CONTROL VALVE MECHANIC Respiratory Rate - - Oxygen Saturation 96% 03/03/2018 12:54 PM CONTROL VALVE MECHANIC Inhaled Oxygen - - Concentration Weight - - Height - - Body Mass Index - - in this encounter Plan of Treatment Date Type Specialty Care Team Description 04/16/2018 Appointment [facility] V[facility] as of this encounter Visit Diagnoses Not on filein this encounter
--- OUTSIDE RECORDS SUMMARY | 2018-03-17 13:17 | XMS REPORT | Continuity of Care Document ---
Author Author [facility] Organization [facility] Address Unknown Phone Unavailable Allergies Active Description Code Type Severity Reaction Onset Reported/Identified Relationship to Patient Clinical Status Yes No Known Drug Allergies [id number] Drug Allergy Unknown N/A 03/23/2012 Yes Sulfa (Sulfonamide Antibiotics) [id number] Drug Allergy Moderate HIVES 03/2015 Medications There [...] M21.372 FOOT DROP, LEFT FOOT 05/04/2015 MELIZA LACY MD Ot M51.36 OTHER INTERVERTEBRAL DISC DEGENERATION, [...] 05/23/2016 IBAN JO MD Ot Z79.899 OTHER SWING TENDER (CURRENT) DRUG THERAPY 05/23/2016 MELIZA LACY MD [...] 05/23/2016 IBAN JO MD Ot Z79.899 OTHER SWING TENDER (CURRENT) DRUG THERAPY 05/23/2016 MELIZA LACY MD Ot Z12.31 ENCNTR SCREEN MAMMOGRAM FOR MALIGNANT NE 05/23/2016 MAY ROMERO MD Ot Z01.818 ENCOUNTER FOR OTHER PREPROCEDURAL EXAMIN 05/24/2016 BELLA, JUAN M FIREMAN HELPER Ot M79.672 PAIN IN LEFT FOOT 05/24/2016 SHAYNEANNALALO Huertas FIREMAN HELPER Ot M79.675 PAIN IN LEFT TOE(S) 06/29/2016 SHAYNEGABRIELAJUAN M FIREMAN HELPER Ot M79.672 PAIN IN LEFT FOOT 06/29/2016 SHAYNEANNALALO Huertas FIREMAN HELPER Ot M79.675 PAIN IN LEFT TOE(S) 07/07/2016 SWATI BEY MD Ot V76.12 OTH SCREEN MAMMO-MALIGN NEOPLASM OF PEDRO 07/07/2016 CORIN VENCES MD Ot 714.0 RHEUMATOID ARTHRITIS 07/07/2016 CORIN VENCES MD Ot V58.69 OTH MED,LT,CURRENT USE 07/07/2016 JUAN BELLA FIREMAN HELPER Ot M54.42 LUMBAGO WITH SCIATICA, LEFT SIDE 07/07/2016 DEYSI LY, IBAN Rudd Ot M51.16 INTERVERTEBRAL DISC DISORDERS W RADICULO 07/07/2016 IBAN JO MD Ot Z79.899 OTHER PENITENTIARY (CURRENT) DRUG THERAPY 07/07/2016 BAMBI LY, MELIZA Barrett Ot Z12.31 ENCNTR SCREEN MAMMOGRAM FOR MALIGNANT NE 07/07/2016 HEATHER LY, MAY Chavez Ot Z01.818 ENCOUNTER FOR OTHER PREPROCEDURAL EXAMIN 07/07/2016 JUAN BELLA FIREMAN HELPER Ot M79.672 PAIN IN LEFT FOOT 07/07/2016 JUAN BELLA FIREMAN HELPER Ot M79.675 PAIN IN LEFT TOE(S) 07/07/2016 JUAN BELLA FIREMAN HELPER Ot Z12.31 ENCNTR SCREEN MAMMOGRAM FOR MALIGNANT NE 07/07/2016 JUAN BELLA FIREMAN HELPER Ot Z12.31 ENCNTR SCREEN MAMMOGRAM FOR MALIGNANT NE 07/28/2016 JUAN BELLA FIREMAN HELPER Ot Z12.31 ENCNTR SCREEN MAMMOGRAM FOR MALIGNANT [...] DEYSI LY, IBAN Rudd Ot Z79.899 OTHER PENITENTIARY (CURRENT) DRUG THERAPY 01/03/2018 MELIZA LACY MD Ot Z12.31 ENCNTR SCREEN MAMMOGRAM FOR MALIGNANT NE 01/03/2018 HEATHER LY, MAY Chavez Ot Z01.818 ENCOUNTER FOR OTHER PREPROCEDURAL EXAMIN 01/03/2018 JUAN BELLA FIREMAN HELPER Ot M79.672 PAIN IN LEFT FOOT 01/03/2018 JUAN BELLA FIREMAN HELPER Ot M79.675 PAIN IN LEFT TOE(S) 01/03/2018 [...] INCONCLUSIVE FINDINGS ON DX 01/25/2018 MELIZA LACY MD, Ot Z12.31 ENCNTR SCREEN MAMMOGRAM FOR MALIGNANT NE 01/30/2018 BJ ALTMAN APRN Ot R92.2 INCONCLUSIVE MAMMOGRAM 02/22/2018 BJ ALTMAN APRN Ot R92.2 INCONCLUSIVE MAMMOGRAM Procedures There is no data. Results Test Result Range Complete blood count (CBC) with automated white blood cell (WBC) differential - 03/17/18 11:28 Blood leukocytes automated count (number/volume) 10.2 10*3/uL 4.3-11.0 Blood erythrocytes automated count (number/volume) 4.25 10*6/uL 4.35-5.85 Venous blood hemoglobin measurement (mass/volume) 12.7 g/dL 11.5-16.0 Blood hematocrit (volume fraction) 36 % 35-52 Automated erythrocyte mean corpuscular volume 85 [foz_us] 80-99 Automated erythrocyte mean corpuscular hemoglobin (mass per erythrocyte) 30 pg 25-34 Automated erythrocyte mean corpuscular hemoglobin concentration measurement ( mass/volume) 35 g/dL 32-36 Automated erythrocyte distribution width ratio 12.0 % 10.0-14.5 Automated blood platelet count (count/volume) 487 10*3/uL 130-400 Automated blood platelet mean volume measurement 9.4 [foz_us] 7.4-10.4 Automated blood neutrophils/100 leukocytes 77 % 42-75 Automated blood lymphocytes/100 leukocytes 14 % 12-44 Blood monocytes/100 leukocytes 9 % 0-12 Automated blood eosinophils/100 leukocytes 0 % 0-10 Automated blood basophils/100 leukocytes 0 % 0-10 Blood neutrophils automated count (number/volume) 7.8 10*3 1.8-7.8 Blood lymphocytes automated count (number/volume) 1.4 10*3 1.0-4.0 Blood monocytes automated count (number/volume) 0.9 10*3 0.0-1.0 Automated eosinophil count 0.0 10*3/uL 0.0-0.3 Automated blood basophil count (count/volume) 0.0 10*3/uL 0.0-0.1 Comprehensive metabolic panel - 03/17/18 11:28 Serum or plasma sodium measurement (moles/volume) 126 mmol/L 135-145 Serum or plasma potassium measurement (moles/volume) 3.8 mmol/L 3.6-5.0 Serum or plasma chloride measurement (moles/volume) 86 mmol/L 98-107 Carbon dioxide 24 mmol/L 21-32 Serum or plasma anion gap determination (moles/volume) 16 mmol/L 5-14 Serum or plasma urea nitrogen measurement (mass/volume) 17 mg/dL 7-18 Serum or plasma creatinine measurement (mass/volume) 1.18 mg/dL 0.60-1.30 Serum or plasma urea nitrogen/creatinine mass ratio 14 NRG Serum or plasma creatinine measurement with calculation of estimated glomerular filtration rate 46 NRG Serum or plasma glucose measurement (mass/volume) 152 mg/dL 70-105 Serum or plasma calcium measurement (mass/volume) 10.6 mg/dL 8.5-10.1 Serum or plasma total bilirubin measurement (mass/volume) 1.1 mg/dL 0.1-1.0 Serum or plasma alkaline phosphatase measurement (enzymatic activity/volume) 115 U/L 40-136 Serum or plasma aspartate aminotransferase measurement (enzymatic activity/ volume) 17 U/L 5-34 Serum or plasma alanine aminotransferase measurement (enzymatic activity/volume ) 10 U/L 0-55 Serum or plasma protein measurement (mass/volume) 8.1 g/dL 6.4-8.2 Serum or plasma albumin measurement (mass/volume) 4.7 g/dL 3.2-4.5 Serum or plasma amylase measurement (enzymatic activity/volume) - 03/17/18 11: 28 Serum or plasma amylase measurement (enzymatic activity/volume) 53 U /L 25-125 Lipase - 03/17/18 11:28 Lipase 46 U/L 8-78 Serum or plasma thyrotropin measurement by detection limit <=0.05 miu/l (units/ volume) - 03/17/18 11:28 Serum or plasma thyrotropin measurement by detection limit <=0.05 miu/l (units/ volume) 0.74 u[iU]/mL 0.35-4.94 Complete urinalysis with reflex to culture - 03/17/18 11:43 Urine color determination DINA NRG Urine clarity determination CLEAR NRG Urine pH measurement by test strip 5 5-9 Specific gravity of urine by test strip 1.025 1.016- 1.022 Urine protein assay by test strip, semi-quantitative 2+ NEGATIVE Urine glucose detection by automated test strip NEGATIVE NEGATIVE Erythrocytes detection in urine sediment by light microscopy NEGATIVE NEGATIVE Urine ketones detection by automated test strip 2+ NEGATIVE Urine nitrite detection by test strip NEGATIVE NEGATIVE Urine total bilirubin detection by test strip NEGATIVE NEGATIVE Urine urobilinogen measurement by automated test strip (mass/volume) 1 mg/dL NORMAL Urine leukocyte esterase detection by dipstick 1+ NEGATIVE Automated urine sediment erythrocyte count by microscopy (number/high power field) NONE NRG Automated urine sediment leukocyte count by microscopy (number/high power field ) [HPF] NRG Bacteria detection in urine sediment by light microscopy MODERATE NRG Squamous epithelial cells detection in urine sediment by light microscopy TNTC NRG Crystals detection in urine sediment by light microscopy NONE NRG Casts detection in urine sediment by light microscopy NONE NRG Mucus detection in urine sediment by light microscopy MODERATE NRG Complete urinalysis with reflex to culture NO NRG Encounters ACCT No. Visit Date/Time Discharge Status Pt. Type Provider Facility Loc./Unit Complaint [id number] 01/31/2018 08:17:00 01/31/2018 23:59:59 CLS Outpatient BJ ALTMAN APRN [facility] RAD L BREAST DENSITY [id number] 01/03/2018 09:37:00 01/03/2018 23:59:59 CLS Outpatient MELIZA LACY MD [facility] RAD SCREENING [id number] 07/07/2016 11:17:00 07/07/2016 23:59:59 CLS Outpatient JUAN BELLAP [facility] RAD Z12.31 SCREENING [id number] 05/23/2016 11:10:00 05/23/2016 23:59:59 CLS Outpatient JUAN BELLAP [facility] RAD L FOTT TOE PAIN [id number] 10/15/2015 08:30:00 10/15/2015 09:33:00 DIS Outpatient SAAD BARRAZA [facility] REHAB RADICULAR LEG PAIN [id number] 05/01/2015 09:21:00 05/04/2015 11:02:00 DIS Outpatient MELIZA LACY MD [facility] REHAB L FOOT DROP; L4/L5 DDD [id number] 03/27/2015 08:11:00 03/27/2015 10:45:00 DIS Outpatient MAY ROMERO MD [facility] FAMILY HISTORY COLON CANCER;HISTORY COLON POLYPS [id number] 03/24/2015 05:43:00 03/24/2015 23:59:59 CLS Outpatient MAY ROMERO MD [facility] PREOP FAMILY HISTORY COLON CANCER; HISTORY COLON POLYPS [id number] 03/23/2015 10:59:00 03/23/2015 23:59:59 CLS Outpatient MELIZA LACY MD [facility] RAD SCREENING [id number] 02/06/2015 10:16:00 02/06/2015 23:59:59 CLS Outpatient IBAN JO MD [facility] CARD DISC DISORDER W/ RADICULOPATHY LUMBAR [id number] 12/11/2014 15:42:00 12/11/2014 23:59:59 CLS Outpatient JUAN BELLA [facility] RAD LT SCIATA PAIN [id number] 01/20/2014 10:02:00 01/20/2014 23:59:59 CLS Outpatient CORIN VENCES MD [facility] LAB HIGH RX RISK,RA [id number] 12/18/2013 11:31:00 12/18/2013 23:59:59 CLS Outpatient SWATI BEY MD [facility] RAD SCREENING [id number] 2013 13:08:00 08/13/2013 11:30:00 DIS Inpatient SWATI BEY MD [facility] 4TH POST CONCUSSIVE SYNDROME, NAUSEA/VOMITING, HYPOKAL [id number] 08/08/2013 13:08:00 08/09/2013 15:25:00 DIS Inpatient PK HODGE DO [facility] SURGICAL L CLAVICLE FX HYPONATREMIA HYPOKALEMIA [id number] 03/14/2013 09:44:00 06/11/2013 00:01:00 DIS Outpatient [id number] 01/25/2013 10:12:00 01/25/2013 23:59:59 CLS Outpatient [id number] 06/27/2012 08:49:00 06/27/2012 23:59:59 CLS Outpatient [id number] 03/17/2018 11:41:00 Document Registration [id number] 06/12/2013 00:00:00 Document Registration [id number] 08/29/2016 23:33:07 08/29/2016 23:59:59 CLS Outpatient [id number] 01/20/2014 10:03:48 ACT Document Registration
--- NOTE | 2018-03-17 13:22 | NUR ---
HARI OBRIEN admitted to room 419-1, with an admitting diagnosis of hyponatremia, nausea and vomiting, on 03/17/18 from [place] via wheelchair, accompanied by staff.HARI OBRIEN introduced to surroundings, call light, bed controls, phone, TV, temperature control, lights, meal times, smoking policy, visitor policy, side rail policy, bathrooms and showers. Patient Rights given to patient in the handbook. HARI OBRIEN verbalizes understanding that [facility] is not responsible for the loss or damage to any personal effects or valuables that are kept in the patients posession during their hospitalization. HARI OBRIEN verbalizes understanding of Interdisciplinary Patient Education. Patient and/or family were informed about the Rapid Response Team and its purpose.
[2018-03-17 13:30] VITALS: BP 146/92
[2018-03-17 14:07] VITALS: BP 147/79
[2018-03-17] MEDS ORDERED: PROMETHAZINE INJ 25 MG/ML (PHENERGAN) AMP IVP PRN (14:15)
[2018-03-17] MEDS: NS IV 1000 ML 1,000 ML IV SCH ×2 (14:17→23:39)
[2018-03-17] MEDS: ONDANSETRON 4 MG/2 ML (SDV) Z0FRAN IVP PRN (16:33)
[2018-03-17 16:49] VITALS: BP 155/70
[2018-03-17 19:50] VITALS: BP 141/69
[2018-03-17] MEDS ORDERED: MELATONIN 3 MG TABLET PO PRN (20:00)
[2018-03-17 23:01] VITALS: BP 151/72
[2018-03-18 04:04] VITALS: BP 129/61
[2018-03-18 06:31] LABS: BASOPHILS # (AUTO) 0.1 10^3/uL (0.0-0.1); BASOPHILS % (AUTO) 1 % (0-10); EOSINOPHILS # (AUTO) 0.1 10^3/uL (0.0-0.3); EOSINOPHILS % (AUTO) 1 % (0-10); HEMATOCRIT 31 % (35-52); HEMOGLOBIN 10.6 G/DL (11.5-16.0); LYMPHOCYTES # (AUTO) 1.5 X 10^3 (1.0-4.0); LYMPHOCYTES % (AUTO) 19 % (12-44); MEAN CORPUSCULAR HEMOGLOBIN 29 PG (25-34); MEAN CORPUSCULAR HGB CONC 34 G/DL (32-36); MEAN CORPUSCULAR VOLUME 86 FL (80-99); MEAN PLATELET VOLUME 9.6 FL (7.4-10.4); MONOCYTES % (AUTO) 12 % (0-12); NEUTROPHILS # (AUTO) 5.5 X 10^3 (1.8-7.8); NEUTROPHILS % (AUTO) 67 % (42-75); PLATELET COUNT 374 10^3/uL (130-400); RED CELL DISTRIBUTION WIDTH 11.8 % (10.0-14.5); WHITE BLOOD COUNT 8.1 10^3/uL (4.3-11.0)
[2018-03-18 06:49] LABS: ALBUMIN 3.9 GM/DL (3.2-4.5); BILIRUBIN,TOTAL 0.9 MG/DL (0.1-1.0); CALCIUM 9.4 MG/DL (8.5-10.1); CREATININE SERUM 0.95 MG/DL (0.60-1.30); POTASSIUM 3.4 MMOL/L (3.6-5.0); TOTAL PROTEIN 6.6 GM/DL (6.4-8.2)
[2018-03-18 08:00] VITALS: BP 157/83
[2018-03-18] MEDS ORDERED: FLU QUADRIvalent (5+ YOA) 2018-2019 (AFLURIA) 0.5 ML IM ONE (09:30)
[2018-03-18] MEDS: NS IV 1000 ML 1,000 ML IV SCH ×2 (10:07→19:56)
--- NOTE | 2018-03-18 10:40 | NUR ---
PATIENT BROUGHT MEDICATION BOTTLES IN EXPECT FOR THEY HYDROCODONE. SHE STATED SHE TOOK THE LEVOTHYROXINE THIS MORNING. INFORMED THE PATIENT ON PROCEDURE FOR HOME MEDICATIONS.
[2018-03-18 11:00] VITALS: BP 134/69
--- NOTE | 2018-03-18 12:59 | History & Physical-Hospitalist ---
History of Present Illness HPI/Chief Complaint CC: Hyponatremia with N/V HPI: This is a 67-year-old white female clinic patient of Dr. Falk who presented to the ER with severe nausea and vomiting and weakness. Patient was found to have severe hyponatremia requiring IV fluid fluid restriction and monitor closely. She has a history of 4 years ago having hyponatremia due to hydrochlorothiazide so have instructed the patient to hold chlorthalidone and spironolactone of which year he took the chlorthalidone without authorization so that may delay recovery of the hyponatremia by one day. She reports less nausea and vomiting and less weakness. Patient appears to be less than pleased about instructions to not take any medication unless authorized to try to reassure her and educated her on the probability of some of her medication being the cause of the hyponatremia. Source: patient Exam Limitations: no limitations Date Seen 03/18/18 Time Seen by a Provider: 11:45 Attending Physician Sanjuana Machado Holly A MD Referring Physician Date of Admission Mar 18, 2018 at 09:54 Home Medications & Allergies Home Medications Reviewed patient Home Medication Reconciliation performed by pharmacy medication reconciliations radioisotope technician and/or nursing. Patients Allergies have been reviewed. Allergies Allergies Coded Allergies Sulfa (Sulfonamide Antibiotics) (Verified Allergy, Intermediate, HIVES, 03/24/15 ) Past [id number] Hx Past Med/Social Hx: Reviewed Nursing Past Med/Soc Hx, Reviewed and Corrections made Patient Social History Alcohol Use: Denies Use Recreational Drug Use: No Smoking Status: Never a Smoker 2nd Hand Smoke Exposure: No Physical Abuse Screen: No Sexual Abuse: No Recent Foreign Travel: No Contact w/other who traveled: No Recent Hopitalizations: Yes (TOTAL KNEE REPLACEMENT RIGHT KNEE 18 DAYS AGO ) Recent Infectious Disease Expo: No Immunizations Up To Date Pediatric: Yes Seasonal Allergies Seasonal Allergies: No Past Medical History Surgeries: Hysterectomy, Orthopedic, Tonsillectomy Cardiac: High Cholesterol, Hypertension : No Reproductive: No Sexually Transmitted Disease: No HIV/AIDS: No Female Reproductive Disorders: Denies Hysterectomy Gastrointestinal: Gastroesophageal Reflux Musculoskeletal: Arthritis, Rheumatoid Arthritis Endocrine: Hypothyroidsim Psychosocial: Depression History of Blood Disorders: No Family History Reviewed Nursing Family Hx Chest pain 19 FATHER Congestive heart failure 19 FATHER Family history: Alzheimer's disease 19 MOTHER Family history: Cardiovascular disease 19 FATHER Family history: Hypertension 19 FATHER Family history: Thyroid disorder G8 SISTER Heart disease 19 FATHER Hypercholesterolemia 19 FATHER 19 MOTHER G8 BROTHER Myocardial infarction 19 FATHER Stroke 19 FATHER No Family History of: Abdominal aortic aneurysm Eleazar's disease Alcoholism Aphasia Cancer Cancer of colon Cataract Cystic fibrosis Dementia Dysphagia Family history: Diabetes mellitus Family history: Gastrointestinal disease History of - anemia History of drug abuse Human immunodeficiency virus (HIV) seropositivity Infertile Parkinson's disease Prostate cancer Psychotic disorder Seizure disorder Tuberculosis Review of Systems Constitutional: see HPI, weakness EENTM: no symptoms reported Respiratory: no symptoms reported Gastrointestinal: nausea, vomiting Genitourinary: no symptoms reported Musculoskeletal: no symptoms reported Skin: no symptoms reported Psychiatric/Neurological: No Symptoms Reported All Other Systems Reviewed Negative Unless Noted: Yes Physical Exam Physical Exam Vital Signs Vital Signs - First Documented 03/17/18 03/17/18 11:15 13:13 Temp 96.6 Pulse 97 Resp 16 B/P (MAP) 155/88 (110) Pulse Ox 99 O2 Delivery Room Air Capillary Refill : Less Than 3 Seconds Height, Weight, BMI Height: 5'4.00" Weight: 174lbs. 6.0oz. 79.486675de; 30.2 BMI Method:Stated General Appearance: No Apparent Distress, WD/WN, Chronically ill Eyes: Bilateral Eye Normal Inspection, Bilateral Eye PERRL HEENT: PERRL/EOMI, TMs Normal, Normal ENT Inspection, Pharynx Normal Neck: Full Range of Motion, Normal Inspection, Non Tender, Supple, Carotid Bruit Respiratory: Chest Non Tender, Lungs Clear, Normal Breath Sounds, No Accessory Muscle Use, No Respiratory Distress Cardiovascular: Regular Rate, Rhythm, No Edema, No Gallop, No JVD, No Murmur, Normal Peripheral Pulses Gastrointestinal: Normal Bowel Sounds, No Organomegaly, No Pulsatile Mass, Non Tender, Soft Back: Normal Inspection, No CVA Tenderness, No Vertebral Tenderness Extremity: Normal Capillary Refill, Normal Inspection, Normal Range of Motion, Non Tender, No Calf Tenderness, No Pedal Edema Neurologic/Psychiatric: Alert, Oriented x3, No Motor/Sensory Deficits, Normal Mood/Affect Skin: Normal Color, Warm/Dry Lymphatic: No Adenopathy Results Results/Procedures Labs Laboratory Tests 03/17/18 11:28 03/18/18 06:05 Patient resulted labs reviewed. Assessment/Plan Admission Diagnosis Assessment: Hyponatremia likely due to chlorthalidone and spironolactone with history of hyponatremia before due to hydrochlorothiazide for years ago Hypertension Acute nausea and vomiting due to hyponatremia Severe weakness due to hypernatremia Plan: Hold chlorthalidone and spironolactone of which she ordered he took her home medication without authorization which included chlorthalidone so instructed her not to take any medication unless instructed to do so Continue fluid restriction Normal saline IV fluid Anti-emetics Check labs in a.m. Attempted to try Norvasc but she reports that causes swelling so discontinued that and we'll list that as an allergy along with chlorthalidone Admission Status: Inpatient Order (span 2 midnights) Reason for Inpatient Admission: Severe hyponatremia will require 3 days of hospital stay Diagnosis/Problems Diagnosis/Problems (1) Hyponatremia Status: Acute Assessment & Plan: Sodium increased by 1 point to 127 from 126 and may not rise significantly again tomorrow due to patient taking her Chlorthalidone this morning without authorization (2) Hypertension Status: Chronic Qualifiers: Hypertension type: essential hypertension Qualified Codes: I10 - Essential (primary) hypertension (3) Nausea & vomiting Status: Acute Qualifiers: Vomiting type: unspecified Vomiting Intractability: unspecified Qualified Codes: R11.2 - Nausea with vomiting, unspecified Clinical Quality Measures DVT/VTE Risk/Contraindication: Risk Factor Score Per Nursin RFS Level Per Nursing on Admit: 4+=Very High SANJUANA MACHADO DO Mar 18, 2018 12:59
[2018-03-18] MEDS ORDERED: amLODIPine 5 MG (NORVASC) TAB PO NR (13:21)
[2018-03-18] MEDS: ONDANSETRON 4 MG/2 ML (SDV) Z0FRAN IVP PRN (13:35)
[2018-03-18 16:00] VITALS: BP 140/65
[2018-03-18] MEDS: HYDROcodone/APAP 5 MG/325 MG (LORTAB) TAB PO PRN (19:54)
[2018-03-18 20:00] VITALS: BP 139/82
[2018-03-19 00:30] VITALS: BP 150/71
[2018-03-19 04:01] VITALS: BP 143/70
[2018-03-19] MEDS: LEVOTHYROXINE 75 MCG (LEVOTHROID) TABLET PO SCH (06:04)
[2018-03-19] MEDS: NS IV 1000 ML 1,000 ML IV SCH ×2 (06:04→15:10)
[2018-03-19 06:31] LABS: BUN/CREATININE RATIO 11; CALCIUM 9.4 MG/DL (8.5-10.1); CARBON DIOXIDE 22 MMOL/L (21-32); CHLORIDE 97 MMOL/L (98-107); CREATININE SERUM 0.83 MG/DL (0.60-1.30); GFR ESTIMATED > 60; GLUCOSE 98 MG/DL (70-105); POTASSIUM 3.4 MMOL/L (3.6-5.0); SODIUM 130 MMOL/L (135-145)
[2018-03-19 08:10] VITALS: BP 162/88
[2018-03-19] MEDS: LOSARTAN 100 MG (COZAAR) TABLET PO SCH (08:21)
--- NOTE | 2018-03-19 08:57 | Progress Note ---
Subjective Date Seen by a Provider: Mar 19, 2018 Time Seen by a Provider: 09:10 Subjective/Events-last exam PT REPORTS THAT SHE IS FEELING BETTER TODAY - SHE STATES THAT SHE IS ONLY SLIGHTLY NAUSEATED OVERNIGHT. SHE STATES THAT SHE IS NOT FEELING QUITE GOOD ENOUGH TO GO HOME TODAY. Objective Exam Last Set of Vital Signs Vital Signs Date Time Temp Pulse Resp B/P (MAP) Pulse Ox O2 Delivery O2 Flow Rate FiO2 03/19/18 08:10 97.2 67 20 162/88 (112) 96 Room Air Capillary Refill : Less Than 3 Seconds I&O Intake and Output 03/19/18 00:00 Intake Total 1700 ml Output Total 2900 ml Balance -1200 ml Intake Oral 700 ml IV Total 1000 ml Output Urine Total 2900 ml # Voids 4 # Bowel Movements 1 General: Alert, Oriented X3, Cooperative, No Acute Distress HEENT: Atraumatic Neck: Supple Lungs: Clear to Auscultation Heart: Regular Rate Abdomen: Normal Bowel Sounds, Soft Extremities: No Clubbing Skin: No Rashes Neuro: Normal Speech, Cranial Nerves 3-12 NL Psych/Mental Status: Mental Status NL, Mood NL Results Lab Laboratory Tests 03/19/18 06:01: Sodium Level 130L, Potassium Level 3.4L, Chloride Level 97L, Carbon Dioxide Level 22, Anion Gap 11, Blood Urea Nitrogen 9, Creatinine 0.83, Estimat Glomerular Filtration Rate > 60, BUN/Creatinine Ratio 11, Glucose Level 98, Calcium Level 9.4 Assessment/Plan Assessment/Plan Assess & Plan/Chief Complaint HYPONATREMIA HYPERTENSION NAUSEA AND EMESIS WEAKNESS PT'S HOME MEDICATION OF CHLORTHALIDONE AND SPIRONOLACTONE WERE STOPPED ON ADMISSION - FLUIDS WERE INITIATED, THE SODIUM LEVEL WAS IMPROVED - CONTINUE WITH CURRENT TREATMENT - REPEAT LABS TOMORROW. CONTINUE WITH ANTIHYPERTENSIVES, MONITOR SYMPTOMS - NAUSEA AND EMESIS HAS IMPROVED - CONTINUE WITH PRN USE OF ANTIEMETICS. Clinical Quality Measures DVT/VTE Risk/Contraindication: Risk Factor Score Per Nursin RFS Level Per Nursing on Admit: 4+=Very High MELIZA LACY MD Mar 19, 2018 08:57
[2018-03-19] MEDS ORDERED: amLODIPine 5 MG (NORVASC) TAB PO SCH (09:00)
[2018-03-19 12:00] VITALS: BP 107/65
[2018-03-19 15:44] VITALS: BP 134/72
[2018-03-19 19:43] VITALS: BP 148/74
[2018-03-19] MEDS: HYDROcodone/APAP 5 MG/325 MG (LORTAB) TAB PO PRN (21:26)
[2018-03-20 00:05] VITALS: BP 135/80
[2018-03-20] MEDS: NS IV 1000 ML 1,000 ML IV SCH (01:09)
[2018-03-20 04:06] VITALS: BP 147/71
[2018-03-20] MEDS: LEVOTHYROXINE 75 MCG (LEVOTHROID) TABLET PO SCH (06:23)
[2018-03-20 06:27] LABS: BUN/CREATININE RATIO 13; CALCIUM 9.1 MG/DL (8.5-10.1); CARBON DIOXIDE 21 MMOL/L (21-32); CHLORIDE 102 MMOL/L (98-107); CREATININE SERUM 0.76 MG/DL (0.60-1.30); GFR ESTIMATED > 60; GLUCOSE 103 MG/DL (70-105); POTASSIUM 3.2 MMOL/L (3.6-5.0); SODIUM 133 MMOL/L (135-145)
[2018-03-20] MEDS: LOSARTAN 100 MG (COZAAR) TABLET PO SCH (08:43)
[2018-03-20 08:50] VITALS: BP 159/80
--- NOTE | 2018-03-20 08:52 | Discharge Inst-Complex ---
PDI Med Rec & Follow Up Appt. New Medications: Metoprolol Succinate (Metoprolol Succinate) 25 Mg Tab.er.24h 25 MG PO DAILY, #30 TAB 6 Refills Continued Medications: Citalopram Hydrobromide (Citalopram HBr) 20 Mg Tablet 20 MG PO DAILY, TAB Hydrocodone/Acetaminophen (Hydrocodone-Acetamin 5-325 mg) 1 Each Tablet 1 EACH PO Q4-6HR PRN for PAIN-MODERATE, TAB Levothyroxine Sodium (Levothyroxine 75 Mcg Tab) 75 Mcg Tablet 75 MCG PO DAILY Losartan Potassium (Losartan Potassium) 100 Mg Tablet 100 MG PO DAILY, #30 TAB Discontinued Medications: Chlorthalidone (Chlorthalidone) 25 Mg Tablet 25 MG PO DAILY, #30 TAB Spironolactone (Spironolactone) 25 Mg Tablet 25 MG PO, #30 TAB Prescription: Transmitted to Pharmacy Activity, Diet and PDI Resume Normal Activity: Yes Discharge Diet: Regular Diet Drink 6-8 Glasses of Fluid/Day: Yes Driving Instructions: No Driving for 24 Hours Return to The Hospital For: ANY CONCERN FOR LIFETHREATENING ILLNESS OR INJURY Symptoms to Reoprt to : Appetite Changes, Pain/Pressure in Chest, Lightheadedness, Diarrhea(Persistant), Nausea/Vomiting For Problems or Questions: Contact Your Physician, Go to Emergency Room MELIZA LACY MD Mar 20, 2018 08:52
--- NOTE | 2018-03-20 08:54 | Discharge Summary ---
Diagnosis/Chief Complaint Date of Admission Mar 18, 2018 at 09:54 Date of Discharge Discharge Date: Mar 20, 2018 Discharge Time: 929 Admission Diagnosis Admission Diagnosis HYPONATREMIA HYPERTENSION NAUSEA AND EMESIS WEAKNESS Discharge Diagnosis HYPONATREMIA HYPERTENSION NAUSEA AND EMESIS WEAKNESS Reason Hospital Visit This is a 67-year-old white female clinic patient of Dr. Falk who presented to the ER with severe nausea and vomiting and weakness. Patient was found to have severe hyponatremia requiring IV fluid fluid restriction and monitor closely. She has a history of 4 years ago having hyponatremia due to hydrochlorothiazide so have instructed the patient to hold chlorthalidone and spironolactone of which year he took the chlorthalidone without authorization so that may delay recovery of the hyponatremia by one day. She reports less nausea and vomiting and less weakness. Patient appears to be less than pleased about instructions to not take any medication unless authorized to try to reassure her and educated her on the probability of some of her medication being the cause of the hyponatremia. Discharge Summary Discharge Physical Examination Allergies: Coded Allergies: Sulfa (Sulfonamide Antibiotics) (Verified Allergy, Intermediate, HIVES, 03/24/15) amlodipine (Verified Allergy, Mild, 03/18/18) swelling to lower extremities Vitals & I&Os General Appearance: Alert, Oriented X3, Cooperative, No Acute Distress HEENT: Atraumatic, PERRLA Respiratory: Clear to Auscultation Cardiovascular: Regular Rate Abdominal: Normal Bowel Sounds, Soft, No Tenderness Neuro: Normal Gait, Strength at 5/5 X4 Ext, Cranial Nerves 3-12 NL Psych/Mental Status: Mental Status NL, Mood NL Hospital Course Was the Problem List Reviewed?: Yes HYPONATREMIA HYPERTENSION NAUSEA AND EMESIS WEAKNESS PT'S HOME MEDICATION OF CHLORTHALIDONE AND SPIRONOLACTONE WERE STOPPED ON ADMISSION - FLUIDS WERE INITIATED, THE SODIUM LEVEL WAS IMPROVED - - REPEAT LAB SHOWED IMPROVED SODIUM LEVEL AND IMPROVED POTASSIUM. STAY OFF OF CHLORTHALIDONE AND SPIRONOLACTONE CONTINUE WITH ANTIHYPERTENSIVES, MONITOR SYMPTOMS - OUTPATIENT - PT TO RETURN TO THE OFFICE WITH BLOOD PRESSURE REPORT. NAUSEA AND EMESIS HAS IMPROVED - CONTINUE WITH PRN USE OF ANTIEMETICS. Pending Labs Discharge Condition at discharge IMPROVED Instructions to patient/family Please see electronic discharge instructions given to patient. Discharge Medications Reviewed and agree with Discharge Medication list on patient's Discharge Instruction sheet Clinical Quality Measures DVT/VTE Risk/Contraindication: Risk Factor Score Per Nursin RFS Level Per Nursing on Admit: 4+=Very High MELIZA FALK MD Mar 20, 2018 08:54
[2018-03-20] MEDS ORDERED: KCL 20 MEQ TAB (K-DUR) PO NR (09:00)
[2018-03-20 11:10] VITALS: BP 159/80
== END 2018-03-20 11:10 | disposition home or self-care (01) | DRG 641 ==
LOC: EDUNIT# 11:07 → ER 11:08 → 4TH 12:43 → OBSVTOIN 03-18 09:54
PROVIDERS: ADMIT Internal Medicine; ATTEND Internal Medicine
DX: E87.1 Hypo-osmolality and hyponatremia (principal); I10 Essential (primary) hypertension; E78.00 Pure hypercholesterolemia, unspecified; K21.9 Gastro-esophageal reflux disease without esophagitis; E03.9 Hypothyroidism, unspecified; R11.2 Nausea with vomiting, unspecified; R53.1 Weakness; Z88.2 Allergy status to sulfonamides; M06.9 Rheumatoid arthritis, unspecified; F32.9 Major depressive disorder, single episode, unspecified; T50.2X5A Adverse effect of carbonic-anhydrase inhibitors, benzothiadiazides and other diuretics, initial encounter; T50.0X5A Adverse effect of mineralocorticoids and their antagonists, initial encounter; Z96.651 Presence of right artificial knee joint
CPT/HCPCS: 36415; 80048; 80053; 81000; 82150; 83690; 84443; 85025; 96361; 96374

== ENCOUNTER → 2018-08-02 | Outpatient (CLI) | payer MEDICARE, OTHER ==
[~2018-08-02] MED LIST changes: +CHLO25TA22 PO; +CITA20TA9 PO; +HYDR-3812 PO; +LOSA100T57 PO; +METO-387 PO; +SPIR25TA5 PO
--- NOTE | 2018-08-02 19:42 | Diagnostic Imaging Report ---
EXAMINATION: Unilateral diagnostic left mammogram. INDICATION: Abnormal mammogram followup. The current study was also evaluated with a Computer Aided Detection (CAD) system. FINDINGS: The previous screening mammogram performed on 01/03/2018 noted an area of increased density in the supra-areolar region of the left breast on the MLO view. The subsequent diagnostic mammogram and ultrasound exam of 01/31/2018 failed to show any sign of malignancy in this area. On this study, the area of increased density is no longer evident. I suspect that it was secondary to fibroglandular tissue alone. The fibroglandular tissue in the left breast is heterogeneously dense. This does limit the sensitivity of this exam. Overall, there does not appear to have been any significant change. There is no primary or secondary sign of malignancy noted. IMPRESSION: 1. The area of increased density seen on the previous exam is no longer visualized. Most likely it was secondary to fibroglandular tissue alone. 2. There is no evidence for malignancy. 3. The patient should have her annual bilateral screening mammogram on schedule in December of this year. ACR BI-RADS Category 1: Negative. Result letter will be mailed to the patient. Note: At least 10% of breast cancer is not imaged by mammography. Dictated by: Dictated on workstation # [id number]
== END ==
LOC: RAD 07:41
PROVIDERS: ATTEND Family Medicine
DX: R92.8 Other abnormal and inconclusive findings on diagnostic imaging of breast (principal)

== ENCOUNTER 2019-01-09 08:43 | Outpatient (RCR) | payer MEDICARE, OTHER | END 2019-01-14 | disposition home or self-care (01) | PROVIDERS: ATTEND Family Medicine | DX: M54.6 Pain in thoracic spine (principal) ==

== ENCOUNTER 2019-01-25 10:29 | Outpatient (RCR) | payer MEDICARE, OTHER ==
[~2019-01-25 10:29] MED LIST changes: -METO-387 PO; +MTP25TSR PO
== END 2019-03-07 09:12 | disposition home or self-care (01) ==
PROVIDERS: ATTEND Family Medicine
DX: M19.90 Unspecified osteoarthritis, unspecified site (principal); M81.0 Age-related osteoporosis without current pathological fracture; I10 Essential (primary) hypertension; M54.6 Pain in thoracic spine

== ENCOUNTER → 2019-03-04 | Outpatient (CLI) | payer MEDICARE, OTHER ==
--- NOTE | 2019-03-04 10:03 | Diagnostic Imaging Report ---
INDICATION: Routine screening. COMPARISON: 01/03/2018 and 07/07/2016. TECHNIQUE: 2D and 3D bilateral screening mammography was performed with CAD. FINDINGS: Both breasts are heterogeneously dense, limiting the sensitivity of mammography. Scattered benign calcifications are identified throughout both breasts. No mass or malignant appearing microcalcifications are identified. The axillae are unremarkable. IMPRESSION: No mammographic features suspicious for malignancy are identified. ACR BI-RADS Category 2: Benign findings. Result letter will be mailed to the patient. Note: At least 10% of breast cancer is not imaged by mammography. Dictated by: Dictated on workstation # [id number]
== END ==
LOC: RAD 08:51
PROVIDERS: ATTEND Family Medicine
DX: Z12.31 Encounter for screening mammogram for malignant neoplasm of breast (principal)
CPT/HCPCS: 77067

== ENCOUNTER 2019-06-07 15:57 | Emergency (ER) | payer MEDICARE, OTHER ==
[~2019-06-07] VITALS: Ht 162.5 cm; Wt 81.8 kg
[~2019-06-07 15:57] MED LIST changes: +ACHD5005 PO; -HYDR-3812 PO
--- OUTSIDE RECORDS SUMMARY | 2019-06-07 16:02 | XMS REPORT | Encounter Summary ---
Author Author [facility] Organization [facility] Address Unknown Phone Unavailable Care Team Providers Care Station Installer Name Role Phone Shannon Falk PCP Encounter Details Care Team Description Date Type Department Ezio Daniel MA 05/03/2019 [facility]phone [facility] [address] [place] [address] [address] [id number] Social History Date Tobacco Use Types Packs/Day Years Used Never Smoker Smokeless Tobacco: Never Used Drinks/Week oz/Week Comments Alcohol Use RARELY Yes Sex Assigned at Date Recorded Female 09/09/2018 7:47 AM CDT Industry Job Start Date Occupation Not on file Not on file Not on file Travel End Travel History Travel Start No recent travel history available. documented as of this encounter Miscellaneous Notes * Telephone Encounter - Ezio Daniel MA - 05/03/2019 9:58 AM CDT Left message to check on patient s/p vein treatment this week. Reminded her that the bandages should have been removed by this point and shower taken, up walking and circulating blood, wearing compression hose during the day while up and ac tive and can use ice (no heat) as well as taking NSAID's or Tylenol for pain/inf lammation. Advised to call if any questions or concerns and to keep scheduled fo llow-up visit documented in this encounter Plan of Treatment Care Team Description Date Type Specialty Mayank Novoa DO [address] [address] [phone] 06/17/2019 Appointment Pain Medicine Vikas Ross MD [address] [facility] [address] [place] [address] [phone] 07/03/2019 Office Visit Cardiology documented as of this encounter Visit Diagnoses Not on filedocumented in this encounter
--- OUTSIDE RECORDS SUMMARY | 2019-06-07 16:02 | XMS REPORT | Encounter Summary ---
Author Author [facility] Organization [facility] Address Unknown Phone Unavailable Care Team Providers Care Maintenance And Engineering Manager Name Role Phone Shannon Falk PCP Encounter Details Care Team Description Date Type Department Carey Holt APRN [address] [facility], [facility] [address] [place] [address] [phone] 05/[facility] [address] [place] [address] Social History Date Tobacco Use Types Packs/Day [...] encounter Miscellaneous Notes * Telephone Encounter - Hailey Castañeda RN - 05/24/2019 12:13 PM CDT Pt verbalizes understanding documented in this encounter Plan of Treatment Care Team Description Date Type Specialty Mayank Novoa DO [address] [facility] [address] [place] [address] [phone] 06/17/2019 Appointment Pain Medicine Vikas Ross MD [address] [facility] [address] [place] [address] [phone] 07/03/2019 Office Visit Cardiology documented as of this encounter Visit Diagnoses Not on filedocumented in this encounter
--- OUTSIDE RECORDS SUMMARY | 2019-06-07 16:02 | XMS REPORT | Encounter Summary ---
Author Author [facility] Organization [facility] Address Unknown Phone Unavailable Care Team Providers Care Motion Picture Scene Builder Name Role Phone Shannon Falk PCP Reason for Referral * Diagnostic Imaging (Routine) Referred By Contact Referred To Contact Status Reason Specialty Diagnoses / Procedures Peter Stafford MD [address] [place] [address] Closed Diagnoses Varicose veins of left lower extremity with other complications P rocedures US Vein Mapping w Duplex lower extremity left Reason for Visit * Diagnostic Imaging (Routine) Referred By Contact Referred To Contact Status Reason Specialty Diagnoses / Procedures Peter Stafford MD [address] [place] [address] Closed Diagnoses Varicose veins of left lower extremity with other complications P rocedures US Vein Mapping w Duplex lower extremity left Encounter Details Care Team Description Date Type Department Pamela Navarro, INTERNATIONAL ORGANIZER [address] [place] [address] [phone] Varicose veins of left lower extremity w ith other complications 05/06/2019 [facility] Encounter [facility] [address] [place], [place] [id number] Social History Date Tobacco Use Types Packs/Day Years Used Never Smoker Smokeless Tobacco: Never Used Drinks/Week oz/Week Comments Alcohol Use RARELY Yes Sex Assigned at Date Recorded Female 09/09/2018 7:47 AM CDT Industry Job Start Date Occupation Not on file Not on file Not on file Travel End Travel History Travel Start No recent travel history available. documented as of this encounter Medications at Time of Discharge Start Date End Date Medication Sig Dispensed Refills celecoxib (CELEBREX) 200 Take 200 mg 0 MG capsule by mouth daily. cholecalciferol, vitamin Take 2,000 0 D3, (VITAMIN D3) 50 mcg Units by (2,000 unit) tablet mouth daily. 04/27/2015 citalopram (CELEXA) 20 MG Take by mouth 0 tablet every morning. 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 04/05/2019 gabapentin (NEURONTIN) Take 1 90 capsule 5 300 MG capsule (300 capsuleIndications: mg total) by neuropathic pain mouth 3 (three) times a day. HYDROcodone-acetaminophen Take 1 tablet 0 (NORCO) 7.5-325 mg per by mouth tablet every 6 (six) hours as needed for pain. 04/18/2015 levothyroxine (SYNTHROID, Take 75 mcg 0 LEVOTHROID) 75 MCG tablet by mouth daily. metoprolol tartrate Take 25 mg by 0 (LOPRESSOR) 25 MG tablet mouth daily. olmesartan (BENICAR) 40 Take 40 mg by 0 MG tablet mouth daily. therapeutic multivitamin Take 1 tablet 0 (THERAGRAN) tablet by mouth daily. documented as of this encounter Plan of Treatment Care Team Description Date Type Specialty Mayank Novoa DO [address] [facility] [address] [place] [address] [phone] 06/17/2019 Appointment Pain Medicine Vikas Ross MD [address] [facility] [address] [place] [address] [phone] 07/03/2019 Office Visit Cardiology documented as of this encounter Procedures Comments Procedure Name Priority Date/Time Associated Diag nosis US VEIN MAPPING W DUPLEX Routine 05/06/2019 Varic ose veins of left LOWER EXTREMITY LEFT 1:29 PM CDT lower extremity with other complications documented in this encounter Results * US Vein Mapping w Duplex lower extremity left (05/06/2019 1:29 PM CDT) Specimen Impressions Performed At FINDINGS/IMPRESSION: [facility] LEFT LOWER EXTREMITY: The Common Femoral vein, Profunda vein, Superficial Femoral vein, Popliteal vein, and Posterior Tibial ve ins of the left leg have been evaluated and appear patent. Left lower extremity is negative for DV T. No deep venous insufficiency on the lef t. The Great Saphenous vein demonstrates 2 .4 seconds of reflux with a diameter of 4.4 mm mid thigh. Anterior lateral saphenous vein is closed. The Small Saphenous vein is patent with normal antegrade flow. The Vein of Giacomini is patent with no rmal antegrade flow. Tributary with 2.5 seconds of reflux me asures 3.6 mm in diameter around the knee. IMPRESSION: Please refer to the vein ma pping diagram for complete details. Narrative Performed At Patient: HARI OBRIEN Sex#: F #: [id number] Abdirizak# : [id number] Location: [facility] US Procedure Requested: [id number] US VEIN MAPPING W DUPLEX LOWER EXTREMITY LEFT Reason for Exam: Varicose veins of le ft lower extremity with other complications Exam Ordered: 05/06/2019 12 36 Exam Date/Time: 05/06/2019 132 9 Begin exam date/time: 05/06/2019 125 7 READING SITE: [facility] US VEIN MAPPING W DUPLEX LOWER EXTREMIT Y LEFT Indication: Varicose veins of left lowe r extremity with other complications Technique: Real-time grayscale imaging of the left lower extremity was performed for vein mapping. Color Do ppler and pulse wave duplex imaging was utilized. Doppler interroga tion of the left lower extremity venous structures from the common femor al vein to the posterior tibial veins was performed to evaluate for tyler p venous thrombosis. Procedure Note Interface, Rad Results In - 05/08/2019 5:33 PM CDT Patient: HARI OBRIEN Sex#: F #: [id number] Abdirizak#: [id number] Location: [facility] US Procedure Requested: [id number] US VEIN MAPPING W DUPLEX LOWER EXTREMITY LEFT Reason for Exam: Varicose veins of left lower extremity with other complications Exam Ordered: 05/06/2019 1236 Exam Date/Time: 05/06/2019 1329 Begin exam date/time: 05/06/2019 1257 READING SITE: [facility] US VEIN MAPPING W DUPLEX LOWER EXTREMITY LEFT Indication: Varicose veins of left lower extremity with other complications Technique: Real-time grayscale imaging of the left lower extremity was performed for vein mapping. Color Doppler and pulse wave duplex imaging was utilized. Doppler interrogation of the left lower extremity venous structures from the common femoral vein to the posterior tibial veins was performed to evaluate for deep venous thrombosis. IMPRESSION FINDINGS/IMPRESSION: LEFT LOWER EXTREMITY: The Common Femoral vein, Profunda vein, Superficial Femoral vein, Popliteal vein, and Posterior Tibial veins of the left leg have been evaluated and appear patent. Left lower extremity is negative for DVT. No deep venous insufficiency on the left. The Great Saphenous vein demonstrates 2.4 seconds of reflux with a diameter of 4.4 mm mid thigh. Anterior lateral saphenous vein is closed. The Small Saphenous vein is patent with normal antegrade flow. The Vein of Giacomini is patent with normal antegrade flow. Tributary with 2.5 seconds of reflux measures 3.6 mm in diameter around the knee. IMPRESSION: Please refer to the vein mapping diagram for complete details. Performing Organization Address City/State/Zipcode Ph one Number [place] documented in this encounter Visit Diagnoses Diagnosis Varicose veins of left lower extremity with other complications documented in this encounter
--- OUTSIDE RECORDS SUMMARY | 2019-06-07 16:02 | XMS REPORT | Clinical Summary ---
Author Author [facility] Organization [facility] Address Unknown Phone Unavailable Care Team Providers Care Drafter Detail Name Role Phone Shannon Falk PCP Allergies Comments Active Allergy Reactions Severity Noted Date Infliximab Rash Low 10/30/2017 Tfejaba-Btv-Vke Reductase Myalgia 11/27/2018 Inhibitors Sulfa (Sulfonamide Hives 05/25/2015 Antibiotics) Medications End Date Status Medication Sig Dispensed Refills Start Date Active levothyroxine (SYNTHROID, Take 75 mcg 0 03/24 LEVOTHROID) 75 MCG tablet by mouth 6 daily. Active citalopram (CELEXA) 20 MG Take by mouth 0 tablet every 6 morning. Active metoprolol tartrate Take 25 mg by 0 (LOPRESSOR) 25 MG tablet mouth daily. Active celecoxib (CELEBREX) 200 Take 200 mg 0 MG capsule by mouth daily. Active HYDROcodone-acetaminophen Take 1 tablet 0 (NORCO) 7.5-325 mg per by mouth tablet every 6 (six) hours as needed for pain. Active olmesartan (BENICAR) 40 Take 40 mg by 0 MG tablet mouth daily. 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 Active gabapentin (NEURONTIN) Take 1 90 capsule 5 300 MG capsule (300 0 capsuleIndications: mg total) by neuropathic pain mouth 3 (three) times a day. Active therapeutic multivitamin Take 1 tablet 0 (THERAGRAN) tablet by mouth daily. Active cholecalciferol, vitamin Take 2,000 0 D3, (VITAMIN D3) 50 mcg Units by (2,000 unit) tablet mouth daily. Active Problems Problem Noted Date Varicose veins of left lower extremity with pain Varicose veins of leg with pain, bilateral 9 Deep venous insufficiency 01/07/2019 Radicular leg pain 05/25/2015 RA (rheumatoid arthritis) Overview: APPROX 10 YRS Neuropathy Overview: LEFT FOOT Hypothyroidism Essential hypertension Mixed hyperlipidemia Obesity (BMI 30.0-34.9) Foot drop, left Edema of lower extremity Overview: R>L Encounters Care Team Description Date Type Specialty Carey Holt APRN 05/24/2019 Telephone Cardiology Pamela Navarro APRN Varicose veins of left lower extremity w ith other complications 05/06/2019 Hospital Radiology Encounter Ezio Daniel MA 05/03/2019 Telephone Radiology Peter Stafford MD Venous insufficiency (Primary Dx); Varicose veins of left lower extremity with pain 04/30/2019 Hospital Radiology Encounter Chante Farrar APRN 04/29/2019 Hospital [facility]ve and Vascular Encounter Pamela Navarro APRN Varicose veins of left lower extremity w ith pain (Primary Dx) 04/15/2019 Hospital Valve and Vascular Encounter Mo Jones, manager inspection Refill 04/05/2019 Refill Pain Medicine Ina Rubio RN Cardiology test results (cardioscan) 04/03/2019 Telephone Cardiology Carey Holt APRN [place] coronary artery calcium score g reater than 400 (Primary Dx) 04/03/2019 Orders Only Cardiology Vikas Ross MD Specialty Pharmacy Refill Coordination 03/14/2019 Specialty Pharmacy Pharmacy Mayank Novoa DO Myofascial pain syndrome (Primary Dx); Spondylosis of thoracic region without myelopathy or radiculopathy; Rheumatoid arthritis, involving unspecified site, unspecified rheumatoid factor presence (HCC) 03/13/2019 Hospital Pain Medicine Encounter Vikas Ross MD 03/13/2019 Documentation Cardiology Vikas Ross MD Medication Refill 03/11/2019 Refill Cardiology from Last 3 Months Family History Medical History Relation Name Comments Heart attack Brother COPD Father Heart attack Father Hyperlipidemia Father Stroke Father Hyperlipidemia Mother Relation Name Status Comments Brother Father Mother Social History Date Tobacco Use Types Packs/Day Years Used Never Smoker Smokeless Tobacco: Never Used Drinks/Week oz/Week Comments Alcohol Use RARELY Yes Sex Assigned at Date Recorded Female 09/09/2018 7:47 AM CDT Industry Job Start Date Occupation Not on file Not on file Not on file Travel End Travel History Travel Start No recent travel history available. Last Filed Vital Signs Reading Time Taken Comments Vital Sign 161/86 04/15/2019 11:05 AM AVIATION MAINTENANCE INSTRUCTOR Blood Pressure 60 04/15/2019 11:05 AM AVIATION MAINTENANCE INSTRUCTOR Pulse 36.6 C (97.8 F) 03/13/2019 10:58 AM AVIATION MAINTENANCE INSTRUCTOR Temperature 17 07/31/2015 4:07 PM CDT Respiratory Rate 96% 03/13/2019 11:35 AM AVIATION MAINTENANCE INSTRUCTOR Oxygen Saturation - - Inhaled Oxygen Concentration 87.1 kg (192 lb) 01/14/2019 11:11 AM AVIATION MAINTENANCE INSTRUCTOR Weight 162.6 cm (5' 4") 01/14/2019 11:11 AM AVIATION MAINTENANCE INSTRUCTOR Height 32.96 01/14/2019 11:11 AM AVIATION MAINTENANCE INSTRUCTOR Body Mass Index Plan of Treatment Care Team Description Date Type Specialty Mayank Novoa DO [address] [facility] [address] [place] [address] [phone] 06/17/2019 Appointment Pain Medicine Vikas Ross MD [address] [facility] [address] [place] [address] [phone] 07/03/2019 Office Visit Cardiology Health Maintenance Due Date Last Done Comments Medicare Annual Wellness 1950 Td # 1950 Colorectal Screening via 08/13/1999 Colonoscopy Mammogram Screening 08/13/1999 Zoster Vaccine# (1 of 2) 08/13/1999 Pneumococcal Vaccine: 65+ 2014 Years (1 of 2 - PCV13) Fall Risk Assessment # 07/30/2016 07/31/2015 Influenza Vaccine (Season 12/22/2019 Ended) Depression Screening 03/13/2020 03/13/2019 PHQ-9 # Osteoporosis Screening 05/26/2020 05/27/2015 Hepatitis C Screen Completed 05/13/2013 Implants Device Identifier Shelf Expiration Date Model / Serial / L ot Implanted Type Area Manufactur er 01/14/2016 -[facility]-001 / [id number] / Implant Allograft Vivigen 1ml Non-Tissue N/A: Spine [place] 25527-001 - [id number] Implant Lumbar Implanted: Qty: 1 on 07/28/2015 by Frank Abdi MD at [facility] Description: 01/09/2016 -[facility]-001 / [id number] / Implant Allograft Vivigen 1ml Non-Tissue N/A: [facility] - [id number] Implant Lumbar Implanted: Qty: 1 on 07/28/2015 by Frank Abdi MD at [facility] [id number] / / Implant Spacer Rise 10 X 26 8-15mm Non-Tissue N/A: Spine GLOBUS 193.122 - [id number] Implant Lumbar Implanted: Qty: 1 on 07/28/2015 by Frank Abdi MD at [facility] 283 / / Needle Jamshidi Beveled Tip 10ga X Non-Tissue N/A: Spine DEPUY 5" 283 - [id number] Implant Lumbar SPI NE Implanted: Qty: 2 on 07/28/2015 by Frank Abdi MD at [facility] [id number] / / Implant Screw X-Tab Miguel 6 X 40mm Non-Tissue N/A: Spine DEPUY 140 - [id number] Implant Lumbar SPINE Implanted: Qty: 1 on 07/28/2015 by Frank Abdi MD at [facility] 145 / / Implant Screw X-Tab Miguel 6 X 45mm Non-Tissue N/A: Spine DEPUY - [id number] Implant Lumbar SPINE Implanted: Qty: 3 on 07/28/2015 by Frank Abdi MD at [facility] / / Implant Morales 45mm - Non-Tissue N/A: Spine DEPUY [id number] Implant Lumbar SPINE Implanted: Qty: 2 on 07/28/2015 by Frank Abdi MD at [facility] / / Implant Screw Inner Set Non-Tissue N/A: Spine DEPUY - [id number] Implant Lumbar SPINE Implanted: Qty: 4 on 07/28/2015 by Frank Abdi MD at [facility] Procedures Comments Procedure Name Priority Date/Time Associated Diag nosis US VEIN MAPPING W DUPLEX Routine 05/06/2019 Varic ose veins of left LOWER EXTREMITY LEFT 1:29 PM CDT lower extremity with other complications US GUIDED ENDOVENOUS Routine 04/30/2019 Varicose veins of left LASER ABLATION 9:27 AM CDT lower extremity wit h pain TRIGGER POINT >=3 MUSCLE Routine 03/13/2019 Myofa scial pain syndrome GROUPS 11:30 AM AVIATION MAINTENANCE INSTRUCTOR Spondylosis of thor acic region without myelopathy or radiculopathy Rheumatoid arthritis, involving unspecified site, unspecified rheumatoid factor presence (HCC) from Last 3 Months Results * US Vein Mapping w Duplex [...] for complete details. Narrative Performed At Patient: DALILA OBRIEN Sex#: F #: 1950 Abdirizak# : [id number] Location: [facility] US Procedure Requested: [id number] US VEIN MAPPING W DUPLEX LOWER EXTREMITY LEFT Reason for Exam: Varicose veins of le ft lower extremity with other complications Exam Ordered: 05/06/2019 12 36 Exam Date/Time: 05/06/2019 132 9 Begin exam date/time: 05/06/2019 125 7 READING SITE: [facility] VEIN MAPPING W DUPLEX LOWER EXTREMIT Y [...] In - 05/08/2019 5:33 PM CDT Patient: DALILA OBRIEN Sex#: F #: 1950 Abdirizak#: [id number] Location: [facility] US Procedure Requested: [id number] US VEIN MAPPING W DUPLEX LOWER EXTREMITY LEFT Reason for Exam: Varicose veins of left lower extremity with other complications Exam Ordered: 05/06/2019 1236 Exam Date/Time: 05/06/2019 1329 Begin exam date/time: 05/06/2019 1257 READING SITE: [facility] VEIN MAPPING W DUPLEX LOWER EXTREMITY LEFT [...] diagram for complete details. Performing Organization Address [facility] one Number KALIE * US Guided Endovenous Laser Ablation (04/30/2019 9:27 AM CDT) CRITICAL REPORT NMDB PACS Specimen Performing Organization Address [facility] Ph one Number NMDB PACS * Trigger point >=3 muscle groups (03/13/2019 11:30 AM AVIATION MAINTENANCE INSTRUCTOR) Narrative Performed At Mayank Novoa DO 03/13/2019 11:2 6 AM Trigger point >=3 muscle groups Performed by: Mayank Novoa DO Authorized by: Mayank Novoa DO from Last 3 Months Insurance Type Payer Benefit Subscriber ID Effective Phone Address Plan / Dates Group Medicare MEDICARE MEDICARE xxxxxxxxxxx 2014-P [place] PART A B [place], [place] COMMERCIAL-NONCONTRACTED [employer] xxxxxxxxxx 12/01 MEDICARE -Present SUPPLEMENT (Home) [place] [address] Obrien,Dalila Personal/F Self 1950 [address] [place], [place] [address]y (Home) [place] [address] Obrien,Dalila Personal/F Self 1950 [address] [place], [place] [address]y (Home) [place] [address] Advance Directives For more information, please contact: [phone] 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
--- OUTSIDE RECORDS SUMMARY | 2019-06-07 16:03 | XMS REPORT | Encounter Summary ---
Author Author [facility] Organization [facility] Address Unknown Phone Unavailable Care Team Providers Care Talent Development Coordinator Name Role Phone Shannon Falk PCP Encounter Details Care Team Description Date Type Department Chante Farrar, TAILING HAND [address] [place] [address] [phone] [facility] [address] [place] [address] Social History Date Tobacco Use Types Packs/Day [...] Date Type Specialty Mayank Novoa DO [address] [facility] [address] [place] [address] [phone] 06/17/2019 Appointment Pain Medicine Vikas Ross MD [address] [facility] [address] [place] [address] [phone] 07/03/2019 Office Visit Cardiology documented as of this encounter Visit Diagnoses Not on filedocumented in this encounter
--- OUTSIDE RECORDS SUMMARY | 2019-06-07 16:03 | XMS REPORT | Encounter Summary ---
Author Author [facility] Organization [facility] Address Unknown Phone Unavailable Care Team Providers Care Fleet Operations Manager Name Role Phone Deya Shannon PCP Reason for Visit * Reason Comments Cardiology test results cardioscan Encounter Details Care Team Description Date Type Department Ina Rubio RN Cardiology test results (cardioscan) 04/03/2019 Telephone [facility] [address] [facility] [address] [place] [address] Social History Date Tobacco Use Types Packs/Day [...] encounter Miscellaneous Notes * Telephone Encounter - Juana Torres RN - 04/08/2019 10:25 AM SLEEVE SEPARATOR Called pt, left detailed message on machine with LA recommendations. Explained lab may be drawn at any [facility] lab, the order is in the system. N o appointment is necessary. 12 hour fasting required. Please call [phone] for various locations and hours. [place] location: [facility] [address], [address], which is down on the 1st floor. VE SEPARATOR * Telephone Encounter - Carey Holt APRN - 04/03/2019 3:29 PM SLEEVE SEPARATOR That's great she is on Repatha. Please place a fasting lipid panel to be drawn i n 2 weeks. No, does not need an appointment with me. OV with JBL should be suffi cient. If her stress test shows any abnormalities then we can discuss a closer O V. Thanks VE SEPARATOR * Telephone Encounter - Ina Rubio RN - 04/03/2019 1:27 PM SLEEVE SEPARATOR Called pt to discuss CACS result (score >1000), and advise her that we've ordered PET. Pt v/u. Also discussed importance of preventive lifestyle measures. She has switched to repatha Feb. She has OV arvind w/JBL 06/21/19 LINDSAY - does she need f/u appt w/you sooner? Does she need FLP at 3 mo after initi ation of repatha? Letter to PCP VE SEPARATOR * Telephone Encounter - Ina Rubio RN - 04/03/2019 1:18 PM SLEEVE SEPARATOR ----- Message from Carey Holt APRN sent at 04/03/2019 12:54 PM SLEEVE SEPARATOR ----- Significant Coronary Calcium with a very high score >1,000. Recommend obtaining a nuclear PET study to r/o coronary ischemia. Please notify patient and I will order MPI PET. VE SEPARATOR documented in this encounter Plan of Treatment Care Team Description Date Type Specialty Mayank Novoa DO [address] [facility] [address] [place] [address] [phone] 06/17/2019 Appointment Pain Medicine Vikas Ross MD [address] [facility] [address] [place] [address] [phone] 07/03/2019 Office Visit Cardiology documented as of this encounter Visit Diagnoses Not on filedocumented in this encounter
--- OUTSIDE RECORDS SUMMARY | 2019-06-07 16:03 | XMS REPORT | Encounter Summary ---
Author Author [facility] Organization [facility] Address Unknown Phone Unavailable Care Team Providers Care Crew Director Name Role Phone Shannon Falk PCP Reason for Referral * MRI/CAT/PET Scan (Routine) Referred By Contact Referred To Contact Status Reason Specialty Diagnoses / Procedures Carey Holt APRN [address] , [facility] [address] [place] [address] [facility] [address] [place] [address] Closed Cardiology Diagnoses Familial hypercholesterolem ia Obesity (BMI 30.0-34.9) P rocedures CV CT Cardioscan Reason for Visit * MRI/CAT/PET Scan (Routine) Referred By Contact Referred To Contact Status Reason Specialty Diagnoses / Procedures Carey Holt APRN [address] , [place] [address] [place] [address] [facility] [address] [place] [address] Closed Cardiology Diagnoses Familial hypercholesterolem ia Obesity (BMI 30.0-34.9) P rocedures CV CT Cardioscan Encounter Details Care Team Description Date Type Department Carey Holt APRN [address] , [place] [address] [place] [address] [phone] Familial hypercholesterolemia; Obesity (BMI 30.0-34.9) 03/01/2019 [facility] Encounter [address] [place] [address] Social History Date Tobacco Use Types Packs/Day [...] mg 0 MG capsule by mouth daily. 04/27/2015 citalopram (CELEXA) 20 MG [...] under the skin every 14 (fourteen) days. HYDROcodone-acetaminophen Take 1 tablet 0 (NORCO) 7.5-325 mg per by mouth tablet every 6 (six) hours as needed for pain. 04/18/2015 levothyroxine (SYNTHROID, Take 75 mcg 0 LEVOTHROID) 75 MCG tablet by mouth daily. metoprolol tartrate Take 25 mg by 0 (LOPRESSOR) 25 MG tablet mouth daily. olmesartan (BENICAR) 40 Take 40 mg by 0 MG tablet mouth daily. 03/13/2019 ergocalciferol (VITAMIN Take 50,000 0 D2) 50,000 unit capsule Units by mouth weekly. 12/18/2018 04/05/2019 gabapentin (NEURONTIN) 3 (three) 1 300 MG capsule times a day. documented as of this encounter Progress Notes * Kellie De La Paz - 03/01/2019 2:27 PM WELFARE DIRECTOR Patient was counseled today regarding their preliminary Cardioscan results. The patient had a coronary artery calcium score of 1020.1 which is in the 97th perce ntile of their age, gender and ethnicity. We recommend healthy lifestyle, inclu ding Mediterranean diet, regular exercise, maintaining a normal body weight and not to use tobacco products. Follow up with PCP or steel pourer helper to manage risk factors and discuss further testing if necessary. The patient was told that if they developed symptoms such as chest pain, shortness of breath, fatigue, palpit ations or dizziness we advise them to follow up with PCP or steel pourer helper immmarty youngblood. They were told that a formal report will be sent to them and the ordering physician and that they will be notified if there were any additional findings or recommendations after the formal interpretation of the scan. The final cardio scan report was routed to Carey Holt, Dr. Vikas Ross, and Dr. Dustin desouza er patient request. Kellie De La Paz Cardioscan Patient Educator ARE DIRECTOR documented in this encounter Plan of Treatment Care Team Description Date Type Specialty Mayank Novoa, [address] [facility] [address] [place] [address] [phone] 06/17/2019 Appointment Pain Medicine Vikas Ross MD [address] [facility] [address] [place] [address] [phone] 07/03/2019 Office Visit Cardiology documented as of this encounter Procedures Comments Procedure Name Priority Date/Time Associated Diag nosis CV CT CARDIOSCAN Routine 03/01/2019 Familial 1:46 PM WELFARE DIRECTOR hypercholesterolemia Obesity (BMI 30.0-34.9) documented in this encounter Results * CV CT Cardioscan (03/01/2019 1:46 PM WELFARE DIRECTOR) Calcium Score 1,020.1 [facility] Specimen Narrative Performed At [facility] NAME: HARI OBRIEN : [id number] GENDER: f MRN: ACCOUNT NUM: [id number] TEST: Coronary Calcium Score TEST DATE: TEST LOCATION: [facility] INPATIENT: INDICATION FOR TEST: Hypertension, Hy perlipidemia, Positive Family History SYMPTOMS: None PROTOCOL: High-resolution, ECG-synchr onized Computed Tomography (CT) of the heart and coronary arteries was perform ed using a Multi-Detector Computed Tomography (MDCT). Each slice acquire d was 3 mm thick using a 1.5 mm slice to slice step. The average heart rate of the patient was 84 bpm an d varied over a range of 3 bpm. There were no image artifacts.. REPORT: Based on the size and density of the calcium deposits in each artery, a calcium score was computed using [employer] volumetric cardiac scoring software. Such deposits are markers for underly ing coronary atherosclerosis. The coronary artery calcium score enables a person to vandana re his or her level of coronary calcification to levels found in health y individuals of the same age and gender. The score is an indicator of the like lihood for significant coronary artery obstruction and the risk of a subsequent cardiac event. Coronary Artery: Left Main, # of Lesion s: 0, Volume Score: 0, Mass Score: 0, Agatston Score: 0 Coronary Artery: LAD, # of Lesions: 6, Volume Score: 297.3, Mass Score: 60.49, Agatston Score: 366.6 Coronary Artery: LCX, # of Lesions: 2, Volume Score: 123.3, Mass Score: 25.05, Agatston Score: 150.1 Coronary Artery: RCA, # of Lesions: 8, Volume Score: 453.8, Mass Score: 81.74, Agatston Score: 503.4 Coronary Artery: Total, # of Lesions: 1 6, Volume Score: 874.4, Mass Score: 167.28, Agatston Score: 1020.1. The Agatston score indicates Significan t Calcification. The total Agatston score of 1020.1 rank s HARI OBRIEN within the Higher Risk Category for females, of similar age. (Note: the database only contains persons between the ages of 30 and 79.) OTHER COMMENTS: This is a limited CT scan of the chest for evaluation of coronary artery calcification only and is not intended for any other purpose. Please refer to the attached recommen dations provided to you at the time of your Cardioscan study for further information. Luis Angel Myers MD [address] , [address] [place] [address] PROVIDER APPROVAL DATETIME: 2019-02-20 0 16:12:24.0 Procedure Note Interface, External Ris In - 03/04/2019 7:17 AM WELFARE DIRECTOR NAME: HARI OBRIEN : [id number] GENDER: f MRN: NATHANAEL NUM: [id number] TEST: Coronary Calcium Score TEST DATE: TEST LOCATION: [facility] INPATIENT: INDICATION FOR TEST: Hypertension, Hyperlipidemia, Positive Family History SYMPTOMS: None PROTOCOL: High-resolution, ECG-synchronized Computed Tomography (CT) of the heart and coronary arteries was performed using a Multi-Detector Computed Tomography (MDCT). Each slice acquired was 3 mm thick using a 1.5 mm slice to slice step. The average heart rate of the patient was 84 bpm and varied over a range of 3 bpm. There were no image artifacts.. REPORT: Based on the size and density of the calcium deposits in each artery, a calcium score was computed using [employer] volumetric cardiac scoring software. Such deposits are markers for underlying coronary atherosclerosis. The coronary artery calcium score enables a person to compare his or her level of coronary calcification to levels found in healthy individuals of the same age and gender. The score is an indicator of the likelihood for significant coronary artery obstruction and the risk of a subsequent cardiac event. Coronary Artery: Left Main, # of Lesions: 0, Volume Score: 0, Mass Score: 0, Agatston Score: 0 Coronary Artery: LAD, # of Lesions: 6, Volume Score: 297.3, Mass Score: 60.49, Agatston Score: 366.6 Coronary Artery: LCX, # of Lesions: 2, Volume Score: 123.3, Mass Score: 25.05, Agatston Score: 150.1 Coronary Artery: RCA, # of Lesions: 8, Volume Score: 453.8, Mass Score: 81.74, Agatston Score: 503.4 Coronary Artery: Total, # of Lesions: 16, Volume Score: 874.4, Mass Score: 167.28, Agatston Score: 1020.1. The Agatston score indicates Significant Calcification. The total Agatston score of 1020.1 ranks HARI OBRIEN within the Higher Risk Category for females, of similar age. (Note: the database only contains persons between the ages of 30 and 79.) OTHER COMMENTS: This is a limited CT scan of the chest for evaluation of coronary artery calcification only and is not intended for any other purpose. Please refer to the attached recommendations provided to you at the time of your Cardioscan study for further information. Luis Angel Myers MD [address] [facility], [address] [place] [address] PROVIDER APPROVAL DATETIME: 2019-03-01 16:12:24.0 Performing Organization Address City/State/Zipcode Ph one Number [facility] documented in this encounter Visit Diagnoses Diagnosis Familial hypercholesterolemia Obesity (BMI 30.0-34.9) documented in this encounter
--- OUTSIDE RECORDS SUMMARY | 2019-06-07 16:03 | XMS REPORT | Encounter Summary ---
Author Author [facility] Organization [facility] Address Unknown Phone Unavailable Care Team Providers Care Plant And Maintenance Technician Name Role Phone [place], Shannon PCP Encounter Details Care Team Description Date Type Department Vikas Ross MD [address] [facility] [address] [place] [address] [phone] 03/13/2019 Documentation [facility] [address] [facility] [address] [place] [address] Social History Date Tobacco Use Types Packs/Day Years Used Never Smoker Smokeless Tobacco: Never Used Drinks/Week oz/Week Comments Alcohol Use RARELY Yes Sex Assigned at Date Recorded Female 09/09/2018 7:47 AM CDT Industry Job Start Date Occupation Not on file Not on file Not on file Travel End Travel History Travel Start No recent travel history available. documented as of this encounter Plan of Treatment Care Team Description Date Type Specialty Mayank Novoa DO [address] [facility] [address] [place] [address] [phone] 06/17/2019 Appointment Pain Medicine Vikas Ross MD [address] [facility] [address] [place] [address] [phone] 07/03/2019 Office Visit Cardiology documented as of this encounter Visit Diagnoses Not on filedocumented in this encounter
--- OUTSIDE RECORDS SUMMARY | 2019-06-07 16:03 | XMS REPORT | Encounter Summary ---
Author Author [facility] Organization [facility] Address Unknown Phone Unavailable Care Team Providers Care Department Helper Name Role Phone Reynaldo Falky PCP Reason for Visit * Reason Comments Medication questions Encounter Details Care Team Description Date Type Department Maddy Hameed RN Medication questions 03/01/2019 Telephone [facility] [address] [facility] [address] [place] [address] Social History Date Tobacco Use Types Packs/Day [...] encounter Miscellaneous Notes * Telephone Encounter - Prashant Pritchett LPN - 03/07/2019 10:07 AM FAMILY PRESERVATION OFFICER Submitted PA for repatha. LY PRESERVATION OFFICER * Telephone Encounter - Susan Benson LPN - 03/06/2019 2:25 PM FAMILY PRESERVATION OFFICER Received a faxed letter from [employer] stating pt's repatha will require a PA LY PRESERVATION OFFICER * Addendum Note - Roger Diaz RN - 03/01/2019 10:05 AM FAMILY PRESERVATION OFFICER Addended by: ROGER DIAZ on: 03/01/2019 10:05 AM Modules accepted: Orders LY PRESERVATION OFFICER * Telephone Encounter - Roger Diaz RN - 03/01/2019 9:48 AM FAMILY PRESERVATION OFFICER Attempted to reach pt and per her PHI left a detailed message with the recs from Dr Ross. Sent in a script to her local pharmacy. Updated the med list. Call back number provided. LY PRESERVATION OFFICER * Telephone Encounter - Vikas Ross MD - 03/01/2019 9:34 AM FAMILY PRESERVATION OFFICER 140mg every 2 weeks LY PRESERVATION OFFICER * Telephone Encounter - Vikas Ross MD - 03/01/2019 7:26 AM FAMILY PRESERVATION OFFICER Yes, ok to substitute. Vikas Harden LY PRESERVATION OFFICER * Telephone Encounter - Maddy Hameed RN - 03/01/2019 7:24 AM FAMILY PRESERVATION OFFICER Received an incoming letter from pt states that she was prescribed Praluent 150m g and it is being removed from her prescription drug coverage list. She stated t hat Repatha is now her insurance preferred medication. She was wanting to know i f Dr. Ross thought this would be an acceptable substitution. Will route to Dr Lashawn Ross for review. Letter placed in the scan bin to be scanned into pt chart. LY PRESERVATION OFFICER documented in this encounter Plan of Treatment Care Team Description Date Type Specialty Mayank Novoa DO [address] [facility] [address] [place] [address] [phone] 06/17/2019 Appointment Pain Medicine Vikas Ross MD [address] [facility] [address] [place] [address] [phone] 07/03/2019 Office Visit Cardiology documented as of this encounter Visit Diagnoses Not on filedocumented in this encounter
--- OUTSIDE RECORDS SUMMARY | 2019-06-07 16:03 | XMS REPORT | Encounter Summary ---
Author Author [facility] Organization [facility] Address Unknown Phone Unavailable Care Team Providers Care Production Staff Worker Name Role Phone Shannon Falk PCP Reason for Referral * Diagnostic Imaging (Routine) Referred By Contact Referred To Contact Status Reason Specialty Diagnoses / Procedures Pamela Navarro APRN [address] [facility] [address] [place] [address] [facility] [address], [address] [place] [address] Closed Radiology Diagnoses Varicose veins of left lower extremity with pain P rocedures US Guided Endovenous Laser Ablation Reason for Visit * Diagnostic Imaging (Routine) Referred By Contact Referred To Contact Status Reason Specialty Diagnoses / Procedures Pamela Navarro APRN [address] [facility] [address] [place] [address] [facility] [address], [address] [place] [address] Closed Radiology Diagnoses Varicose veins of left lower extremity with pain P rocedures US Guided Endovenous Laser Ablation Encounter Details Care Team Description Date Type Department Peter Stafford MD [address] [place] [address] [phone] Venous insufficiency (Primary Dx); Varicose veins of left lower extremity with pain [facility] [address] [facility], [address] [place] [address] Social History Date Tobacco Use Types Packs/Day [...] mouth daily. documented as of this encounter Progress Notes * Peter Stafford MD - 04/30/2019 9:00 AM CDT [facility] Procedure Note Dalila Hameed : 1950 TODAY'S DATE:04/30/2019 PROCEDURE: Endovenous Laser Ablation of the Left lower extremity INDICATION: Varicose veins with pain and aching of the Left lower extremity PRE-PROCEDURE: The patient was provided a written informed consent form describi ng the risks, benefits, and alternatives of the above procedure(s). The patient was brought into the procedure room where relevant procedural details, including procedure type, anatomic location, and procedural plan were confirmed and writt en informed consent was yielded. Please refer to the signed consent form, dated 04/30/2019, located in the chart. Before beginning the procedure, the procedur al team confirmed the patient's identity, the patient's allergies, and treatment plan during an audible time out. PROCEDURAL DETAILS: Endovenous laser ablation The patient was placed in Supine position and the Left lower extremity was prep ped and draped in usual sterile fashion. Sterile barrier technique was utilized , including hat, mask, gown, and gloves. Using ultrasound guidance and a 22g mi cropuncture needle, a 4F sheath was placed in the anterolateral vein. A laser f iber was introduced into the vein at the level of the junction, then the laser f iber was deliberately withdrawn 2 cm from the junction under direct ultrasound v isualization. Placement of the catheter tip was again confirmed with compressiv e ultrasonography. Under direct ultrasound visualization, a total of 350 mL of tumescent anesthetic solution was used to infiltrate the perivascular space arou nd the vein. The laser fiber was activated on 12 marin of power to treat 16 cm of vein over 133 sec delivering a total energy of 1633 J. During laser fiber/sh eath pullback, a mean 102 J/cm was applied across the treated segment. Compress dre ultrasonography confirmed patency of the deep venous structures following la ser treatment. The patient tolerated the procedure well and there were no appar ent procedural complications. Hemostasis was achieved at the venipuncture sites, which were bandaged with [place] r-roll. Following the procedure, a graduated compression stocking was applied t o the treated limb. Estimated blood loss: <5 mL Complications: None PROCEDURAL IMPRESSION: - Successful Endovenous Laser Ablation of the Left lower extremity RECOMMENDATIONS: - Relevant post-procedure care instructions provided to the patient, including g raduated compression, elevation, and ambulation. - Return to the Vein Clinic in 1-2 weeks for a follow-up venous duplex to confir m status of venous insufficiency in the affected leg. Peter Stafford MD, MSc, FACC, [facility] Interventional Cardiology [facility] Pager: [phone] 04/30/2019 9:45 AM documented in this encounter Plan of Treatment Care Team Description Date Type Specialty Mayank Novoa DO [address] [facility] [address] [place] [address] [phone] 06/17/2019 Appointment Pain Medicine Vikas Ross MD [address] [facility] [address] [place] [address] [phone] 07/03/2019 Office Visit Cardiology documented as of this encounter Procedures Comments Procedure Name Priority Date/Time Associated Diag nosis US GUIDED ENDOVENOUS Routine 04/30/2019 Varicose veins of left LASER ABLATION 9:27 AM CDT lower extremity wit h pain documented in this encounter Results * US Guided Endovenous Laser Ablation (04/30/2019 9:27 AM CDT) CRITICAL REPORT [facility] PACS Specimen Performing Organization Address City/State/Zipcode Ph one Number [facility] PACS documented in this encounter Visit Diagnoses Diagnosis Venous insufficiency Unspecified venous (peripheral) insuffi ciency Varicose veins of left lower extremity with pain documented in this encounter Administered Medications Action Date Dose Rate Site Medication Order MAR Action 04/30/2019 9:00 AM CDT 350 mL lidocaine (XYLOCAINE) 10 mg/mL (1 %) 100 Given mL, EPINEPHrine 1 mg/mL 1 mg in sodium chloride 0.9 % (NS) 1,000 mL injection 1-1,000 mL, Intradermal, Once, [place] 04/30/19 at 0900, For 1 dose, Not to exceed 1000 mL total per treatment x 1. , 04/30/2019 8:45 AM CDT 3 mL lidocaine (XYLOCAINE) 10 mg/mL (1 %) Given injection 10 mL 10 mL, Intradermal, Once, 04/30/19 a t 0845, For 1 dose, Not to exceed 30 mL total per treatment, documented in this encounter
--- OUTSIDE RECORDS SUMMARY | 2019-06-07 16:03 | XMS REPORT | Encounter Summary ---
Author Author [facility] Organization [facility] Address Unknown Phone Unavailable Care Team Providers Care Cocoa Bean Roaster Name Role Phone Shannon Falk PCP Reason for Visit * Reason Comments Medication Refill Encounter Details Care Team Description Date Type Department Mo Jones RN Medication Refill 04/05/2019 Refill [facility] [address] [place] [address] [address] [place] [address] Social History Date Tobacco Use Types Packs/Day [...] encounter Miscellaneous Notes * Telephone Encounter - Mo Jones RN - 04/05/2019 7:42 AM BRIM GREASER OPERATOR Pt called said Gabapentin script never was completed. Script has now been sent. GREASER OPERATOR documented in this encounter Plan of Treatment Care Team Description Date Type Specialty Mayank Novoa DO [address] [facility] [address] [place] [address] [phone] 06/17/2019 Appointment Pain Medicine Vikas Ross MD [address] [facility] [address] [place] [address] [phone] 07/03/2019 Office Visit Cardiology documented as of this encounter Visit Diagnoses Diagnosis Spondylosis of thoracic region without myelopathy or radiculopathy documented in this encounter
--- OUTSIDE RECORDS SUMMARY | 2019-06-07 16:03 | XMS REPORT | Encounter Summary ---
Author Author [facility] Organization [facility] Address Unknown Phone Unavailable Care Team Providers Care Rehabilitation Aide Name Role Phone Shannon Falk PCP Reason for Referral * Diagnostic Imaging (Routine) Referred By Contact Referred To Contact Status Reason Specialty Diagnoses / Procedures Pamela Navarro APRN [address] [facility] [address] [place] [address] [facility] [address] [facility], [address] [address] Closed Radiology Diagnoses Varicose veins of left lower extremity with pain P rocedures US Guided Endovenous Laser Ablation Reason for Visit * Reason Comments Leg pain Leg Swelling Leg Fatigue/Tiredness Leg Cramping Leg Restlessness Encounter Details Care Team Description Date Type Department Pamela Navarro APRN [address] [facility] [address] [place] [address] [phone] Varicose veins of left lower extremity w ith pain (Primary Dx) [facility] [address] [facility], [address] [id number] Social History Date Tobacco Use Types Packs/Day Years Used Never Smoker Smokeless Tobacco: Never Used Drinks/Week oz/Week Comments Alcohol Use RARELY Yes Sex Assigned at Date Recorded Female 09/09/2018 7:47 AM CDT Industry Job Start Date Occupation Not on file Not on file Not on file Travel End Travel History Travel Start No recent travel history available. documented as of this encounter Last Filed Vital Signs Reading Time Taken Comments Vital Sign 161/86 04/15/2019 11:05 AM DIRECTOR COMMUNICATIONS Blood Pressure 60 04/15/2019 11:05 AM DIRECTOR COMMUNICATIONS Pulse - - Temperature - - Respiratory Rate - - Oxygen Saturation - - Inhaled Oxygen Concentration - - Weight - - Height - - Body Mass Index documented in this encounter Medications at Time of [...] as of this encounter Progress Notes * Pamela Navarro APRN - 04/15/2019 11:00 AM DIRECTOR COMMUNICATIONS [facility] Clinic Appointment Date: 04/15/2019 Shannon Falk MD [address] [facility] [address] RE: Dalila Hameed : 1950 Visit provider: Pamela Navarro RN, [facility]- Dear Shannon Falk MD, I had the pleasure of seeing Dalila Hameed in the office today. She is a 68 y.o. fe male and presents with the following chief complaints: Leg pain; Leg Swelling; L eg Fatigue/Tiredness; Leg Cramping; and Leg Restlessness HPI: Ms. Hameed returns to the vein clinic today for a history and physical, 90-day fol lowup from her initial visit in December at that time, reporting bilateral leg p ain more prominent in the left leg as compared to the right as her main symptom. She is a 68-year-old female who underwent vein stripping in approximately 2008, who also had a right knee replacement in 2018, experienced left footdrop, which recovered after an L4-L5 fusion. She also has rheumatoid arthritis and no histo ry of DVT as well as having radicular pain from her back. She has worn thigh-high compression stockings most days since she was seen last and reports having a decrease in her pain overall. She also mentions having prom inent cramps over her left anterior thigh and swelling that have both improved w ith use of compression stockings. Vein mapping shows an insufficient left anterolateral vein, insufficient left gr eater saphenous vein in the proximal half as well as tributaries in the mid thir d portion of the leg as well as the lateral thigh where she has localized discom fort. Right anterior lateral vein is insufficient, which extends to the ankle. The distal half of Giacomini vein was insufficient. She has insufficiency in t he right superficial femoral and popliteal veins with augmentation. No DVT is n oted. Vein Medical History Can you stand for 30 minutes without assistance?: Yes Can you climb three stairs (using hand rails) without assistance?: Yes Have you fallen in the last six months?: Yes Have you ever had an ankle/leg ulcer?: [...] your symptoms wake you at night?: Bilateral How long have you experienced the symptoms marked above?: 6 months How do your symptoms interfere with performing daily activities?: symptoms worst with activity Conservative Treatment Other conservative treatments?: Activity restriction, Leg elevation Compression Stockings Are you currently wearing compression stockings?: Yes Do you wear compression stockings daily?: Yes Which type of compression hose are you wearing?: Thigh High Patient Active Problem List Diagnosis SNOMED CT(R) Radicular leg pain RADICULAR PAIN RA (rheumatoid arthritis) ([facility]) RHEUMATOID ARTHRITIS Neuropathy NEUROPATHY Hypothyroidism HYPOTHYROIDISM Essential hypertension ESSENTIAL HYPERTENSION Mixed hyperlipidemia MIXED HYPERLIPIDEMIA Obesity (BMI 30.0-34.9) OBESE CLASS I Foot drop, left LEFT FOOT DROP Edema of lower extremity EDEMA OF LOWER EXTREMITY Varicose veins of leg with pain, bilateral VARICOSE VEINS OF LOWER EXTREMITY Deep venous insufficiency PERIPHERAL VENOUS INSUFFICIENCY Varicose veins of left lower extremity with pain PAIN CO-OCCURRENT AND DUE T O VARICOSE VEINS OF LEFT LEG Past Medical History: Diagnosis Date Anesthesia complication [...] 30.0-34.9) Osteoarthritis HANDS, HIPS RA (rheumatoid arthritis) ([facility]) APPROX 10 YRS Radicular leg pain 05/25/2015 Rheumatoid arthritis of spine ([facility]) CERVICAL SPINE; HAS FULL ROM WITH NECK Sciatica DOWN LEFT LEG Urinary incontinence STRESS INCONTINENCE Past Surgical History: Procedure Laterality Date BUNIONECTOMY Right FRACTURE SURGERY Left CLAVICAL FX FUSION, SPINE, LUMBAR, INTERBODY, TRANSFORAMINAL APPROACH Left 07/28/2015 Procedure: L4-L5 FUSION TRANSFORAMINAL LUMBAR INTERBODY SPINE; Surgeon: Yue Abdi MD; Location: [facility] OR; Service: Neurosurgery; Laterality: Le ft; HYSTERECTOMY MARTY FUNDOPLICATION ROTATOR CUFF REPAIR Right TONSILLECTOMY AND ADENOIDECTOMY VEIN LIGATION AND STRIPPING Left Final Medications: Current Outpatient Medications Medication Sig Dispense Refill celecoxib (CELEBREX) 200 MG capsule Take 200 mg by mouth daily. cholecalciferol, vitamin D3, (VITAMIN D3) 50 mcg (2,000 unit) tablet Take 2, 000 Units by mouth daily. citalopram (CELEXA) 20 MG tablet Take by mouth every morning. evolocumab (REPATHA) 140 mg/mL pen injector Inject 1 mL (140 mg total) under the skin every 14 (fourteen) days. 1 pen 11 gabapentin (NEURONTIN) 300 MG capsule Take 1 capsule (300 mg total) by mouth 3 (three) times a day. 90 capsule 5 HYDROcodone-acetaminophen (NORCO) 7.5-325 mg per tablet Take 1 tablet by aditya th every 6 (six) hours as needed for pain. levothyroxine (SYNTHROID, LEVOTHROID) 75 MCG tablet Take 75 mcg by mouth jeffy ly. olmesartan (BENICAR) 40 MG tablet Take 40 mg by mouth daily. therapeutic multivitamin (THERAGRAN) tablet Take 1 tablet by mouth daily. diclofenac (VOLTAREN) 1 % gel Apply 2 g topically 4 (four) times a day as ne eded. 2 Tube 5 metoprolol tartrate (LOPRESSOR) 25 MG tablet Take 25 mg by mouth daily. No current facility-administered medications for this encounter. Allergies Allergen Reactions Jceqysz-Dqr-Ggt Reductase Inhibitors Myalgia Sulfa (Sulfonamide Antibiotics) Hives Remicade [Infliximab] Rash Family History Problem Relation Age of Onset Hyperlipidemia Mother Hyperlipidemia Father COPD Father Stroke Father Heart attack Father Heart attack Brother Social History: Social History Tobacco Use Smoking status: Never Smoker Smokeless tobacco: Never Used Substance Use Topics Alcohol use: Yes Comment: RARELY Drug use: No Review of Systems Cardiovascular: Positive for leg swelling. Skin: Negative for color change, dry skin, itching, poor wound healing and rash. Musculoskeletal: Positive for joint pain, joint swelling, muscle cramps and musc le weakness. Vital Signs 04/15/19 1105 BP: (!) 161/86 Pulse: 60 BMI: There is no height or weight on file to calculate BMI. Physical Exam Constitutional: NAD. BMI 32. Normal calf muscle pump. HENT: Head: Normocephalic and atraumatic. Eyes: Conjunctivae are normal. Neck: Normal range of motion. Neck supple. Cardiovascular: non labored breathing. Patient exhibits trace renato LE edema. Pulses: Posterior Tibial pulses are 2+ on the right side, and 2+ on the left side. Dorsalis pedis pulses are 2+ on the right side, and 2+ on the left side. Pulmonary/Chest: Normal Effort Neurological: grossly intact Skin: Patient is warm and dry. No hyperpigmentation or skin changes. Reticular veins disease noted renato LEs, and renato LE telangectasias. No sores noted. Presence of palpable varicose veins in LLE. Psychiatric: Patient has a normal mood and affect. Vitals reviewed. SNOMED CT(R) 1. Varicose veins of left lower extremity with pain PAIN CO-OCCURRENT AND DUE T O VARICOSE VEINS OF LEFT LEG Plan: 1. Varicose veins of the left lower extremity with pain: Ms. Hameed has lifestyle altering varicose veins in the anterior, lateral and greater saphenous vein kaveh ng with tributaries that was noted on vein mapping last December. Symptoms preve nt her from being able to be more active, volunteering and doing her yard and ho usework. She has worn thigh-high compression stockings, used leg elevation and restricted her activity to manage her symptoms. Since symptoms continue thus, failing conservative measures, we are recommending treatment. She will need several appointments for her left leg treatment initi ally with endovenous laser ablation to the greater saphenous vein. She is denyi ng Valium at this time. I gave her printed information regarding post-procedure care that was also discussed today. She will need a laser ablation to the anter ior lateral vein that we will schedule next thereafter she will require ultrasou nd-guided injections. She has medium vein disease that is not symptomatic for h er. Thank you for allowing me to participate in Dalila Hameed's care. If I can be of a ny further assistance, please do not hesitate to contact me. Sincerely, Pamela Navarro RN, PAINTER SET-BC CTOR COMMUNICATIONS documented in this encounter Plan of Treatment Care Team Description Date Type Specialty Mayank Novoa DO [address] [place] [address] [phone] 06/17/2019 Appointment Pain Medicine Vikas Ross MD [address] [place] [address] [phone] 07/03/2019 Office Visit Cardiology documented as of this encounter Results * US Guided Endovenous Laser Ablation (04/30/2019 9:27 AM CDT) CRITICAL REPORT [facility] PACS Specimen Performing Organization Address City/State/Zipcode Ph one Number [facility] PACS documented in this encounter Visit Diagnoses Diagnosis Varicose veins of left lower extremity with pain documented in this encounter
--- OUTSIDE RECORDS SUMMARY | 2019-06-07 16:03 | XMS REPORT | Encounter Summary ---
Author Author [facility] Organization [facility] Address Unknown Phone Unavailable Care Team Providers Care Jamb Cutter Name Role Phone Shannon Falk PCP Reason for Referral * Diagnostic Imaging (Routine) Referred By Contact Referred To Contact Status Reason Specialty Diagnoses / Procedures Carey Holt APRN [address] [place] [address] Sln Cv Nuc Med [address] [place] [address] Authorized Cardiology Diagnoses Agatston coronary artery calcium score greater than 400 P rocedures CV MPI PET Encounter Details Care Team Description Date Type Department Carey Holt APRN [address] [place] [address] [phone] [place] coronary artery calcium score g reater than 400 (Primary Dx) 04/03/2019 Orders Only [facility] [address] [facility] [address] [place] [address] Social History Date Tobacco Use Types Packs/Day [...] Date Type Specialty Mayank Novoa DO [address] [facility] [address] [place] [address] [phone] 06/17/2019 Appointment Pain Medicine Vikas Ross MD [address] [facility] [address] [place] [address] [phone] 07/03/2019 Office Visit Cardiology Order Schedule Name Type Priority Associated Diag noses Expected: 04/17/2019, Expires: 1 CV MPI PET Cardiac Routine [place] [facility] calcium score greater than 400 documented as of this encounter Visit Diagnoses Diagnosis Agatston coronary artery calcium score greater than 400 documented in this encounter
--- OUTSIDE RECORDS SUMMARY | 2019-06-07 16:03 | XMS REPORT | Encounter Summary ---
Author Author [facility] Organization [facility] Address Unknown Phone Unavailable Care Team Providers Care Nail Welter Name Role Phone Shannon Falk PCP Reason for Visit * Reason Comments Medication Refill Encounter Details Care Team Description Date Type Department Vikas Ross MD [address] [facility] [address] [place] [address] [phone] Medication Refill 03/11/2019 Refill [facility] [address] [facility] [address] [place] [address] Social History Date Tobacco Use Types Packs/Day [...] encounter Miscellaneous Notes * Telephone Encounter - Maddy Hameed RN - 03/11/2019 3:27 PM MANAGER HOSPITALITY Pt has been switched from Praluent to Repatha. Prescription refill request for P raluent denied [facility] documented in this encounter Plan of Treatment Care Team Description Date Type Specialty Mayank Novoa DO [address] [facility] [address] [place] [address] [phone] 06/17/2019 Appointment Pain Medicine Vikas Ross MD [address] [facility] [address] [place] [address] [phone] 07/03/2019 Office Visit Cardiology documented as of this encounter Visit Diagnoses Not on filedocumented in this encounter
--- OUTSIDE RECORDS SUMMARY | 2019-06-07 16:03 | XMS REPORT | Encounter Summary ---
Author Author [facility] Organization [facility] Address Unknown Phone Unavailable Care Team Providers Care Ice Cream Truck Driver Name Role Phone Shannon Falk PCP Reason for Visit * Reason Comments Mid Back Pain * Pain Management (Routine) Referred By Contact Referred To Contact Status Reason Specialty Diagnoses / Procedures [facility] [address] [place] [address] Mayank Novoa DO [address] [place] [address] Closed Pain Management Diagnoses / Pain Medicine TPI , expectin inj P rocedures TRIGGER POINT INJECTION Encounter Details Care Team Description Date Type Department Mayank Novoa DO [address] [place] [address] [phone] Myofascial pain syndrome (Primary Dx); Spondylosis of thoracic region without myelopathy or radiculopathy; Rheumatoid arthritis, involving unspecified site, unspecified rheumatoid factor presence (HCC) 03/13/2019 [facility] al Encounter Pain Management Clinic [address] [place] [address] Social History Date Tobacco Use Types Packs/Day [...] Signs Reading Time Taken Comments Vital Sign 142/80 03/13/2019 11:35 AM SHEET COMBINING OPERATOR Blood Pressure 67 03/13/2019 11:35 AM SHEET COMBINING OPERATOR Pulse 36.6 C (97.8 F) 03/13/2019 10:58 AM SHEET COMBINING OPERATOR Temperature - - Respiratory Rate 96% 03/13/2019 11:35 AM SHEET COMBINING OPERATOR Oxygen Saturation - - Inhaled Oxygen Concentration - - Weight - - Height - - Body Mass Index documented in this encounter Discharge Instructions * Patient Instructions* Chandni Reardon RN - 03/13/2019 11:30 AM SHEET COMBINING OPERATOR Trigger Point injections Keep the injection site dry until tomorrow morning (no bath or shower). Remove the Band-Aid this evening. Do not apply heat to the injection site for 48 hours. An ice pack may be used f or 20 minutes on, and 20 minutes of. If steroid was used, decrease your salt intake to minimize fluid retention or bl oating. Please call if redness, drainage or fever develops after the injection. Watch for increased blood sugar if you are a diabetic and steroid was used. Resume blood thinners as directed. If you have any questions, please call [phone] or , Monday rough Monday (8:00AM - 4:00 PM). On evenings, weekends, and holidays, please ca [phone] and ask for the continuous improvement intern Anesthesiologist for pain management. T COMBINING OPERATOR documented in this encounter Medications at Time [...] mg by 0 MG tablet mouth daily. 12/18/2018 04/05/2019 gabapentin (NEURONTIN) 3 (three) 1 300 MG capsule times a day. documented as of this encounter Procedure Notes * Mayank Novoa DO - 03/13/2019 11:30 AM SHEET COMBINING OPERATOR Associated Order(s): Trigger point >=3 muscle groups Post-Procedure Diagnose(s): Myofascial pain syndrome; Spondylosis of thoracic re gion without myelopathy or radiculopathy; Rheumatoid arthritis, involving unspec ified site, unspecified rheumatoid factor presence (HCC) Trigger point >=3 muscle groups Performed by: Mayank Novoa DO Authorized by: Mayank Novoa DO INTERVENTIONAL PAIN MANAGEMENT PROCEDURE REPORT Trigger Point Injection Date of Service: 03/13/2019 Procedure Title(s): 1. Trigger Point Injection - bilateral thoracic erector spinae, trapezius, and r homboid musculature Preprocedure diagnosis: 1. Myofascial Pain Syndrome 2. Myalgia Attending Surgeon: Mayank Novoa Anesthesia: Local Indications: Dalila Hameed is a 68 y.o. female with a diagnosis of myofascial pain syndrome/myalgia. The patient's history and physical exam were reviewed. Procedure in Detail: Consent was obtained and placed in the patient's chart. The patient identified 6 points of tenderness in the bilateral thoracic erector spinae, trapezius, and r homboid musculature. This area was cleaned with sterile prep. A 27g needle was i nserted into each location and 0.5mL of a solution containing 0.5% bupivacaine a nd methylprednisolone 40mg was injected at each site. The needle was then remove d. The patient tolerated the procedure well. Estimated Blood Loss: Minimal Specimens: None Complications: None Disposition: The patient tolerated the procedure well, and there were no apparen t complications. Vital signs remained stable throughout the procedure. The patie nt was taken to the recovery area where discharge instructions for the procedure were given. T COMBINING OPERATOR documented in this encounter Plan of Treatment Care Team Description Date Type Specialty Mayank Novoa DO [address] [facility] [address] [place] [address] [phone] 06/17/2019 Appointment Pain Medicine Vikas Ross MD [address] [facility] 230 [place], [place] [id number] 07/03/2019 Office Visit Cardiology documented as of this encounter Procedures Comments Procedure Name Priority Date/Time Associated Diag nosis TRIGGER POINT >=3 MUSCLE Routine 03/13/2019 Myofa scial pain syndrome GROUPS 11:30 AM SHEET COMBINING OPERATOR Spondylosis of thor acic region without myelopathy or radiculopathy Rheumatoid arthritis, involving unspecified site, unspecified rheumatoid factor presence (HCC) documented in this encounter Results * Trigger point >=3 muscle groups (03/13/2019 11:30 AM SHEET COMBINING OPERATOR) Narrative Performed At Mayank Novoa DO 03/13/2019 11:2 6 AM Trigger point >=3 muscle groups Performed by: Mayank Novoa DO Authorized by: Mayank Novoa DO documented in this encounter Visit Diagnoses Diagnosis Myofascial pain syndrome Unspecified myalgia and myositis Spondylosis of thoracic region without myelopathy or radiculopathy Rheumatoid arthritis, involving unspeci fied site, unspecified rheumatoid factor presence (HCC) documented in this encounter Administered Medications Action Date Dose Rate Site Medication Order MAR Action 03/13/2019 11:15 AM SHEET COMBINING OPERATOR 4 mL bupivacaine (pf) (MARCAINE) 0.5 % (5 Given mg/mL) injection Code/trauma/sedation medication, Starting 03/13/19 at 1115 03/13/2019 11:15 AM SHEET COMBINING OPERATOR 40 mg methylPREDNISolone acetate (DEPO-MEDROL) Given 40 mg/mL injection Code/trauma/sedation medication, Starting Mon03/13/19 at 1115 documented in this encounter
--- OUTSIDE RECORDS SUMMARY | 2019-06-07 16:03 | XMS REPORT | Encounter Summary ---
Author Author [facility] Organization [facility] Address Unknown Phone Unavailable Care Team Providers Care Food Technologist Name Role Phone Shannon Falk PCP Encounter Details Care Team Description Date Type Department Vikas Ross MD [address] [facility] [address] [place] [address] [phone] Specialty Pharmacy Refill Coordination 03/14/2019 Specialty [facility] [address] [place] [address] Social History Date Tobacco Use Types Packs/Day Years Used Never Smoker Smokeless Tobacco: Never Used Drinks/Week oz/Week Comments Alcohol Use RARELY Yes Sex Assigned at Date Recorded Female 09/09/2018 7:47 AM CDT Industry Job Start Date Occupation Not on file Not on file Not on file Travel End Travel History Travel Start No recent travel history available. documented as of this encounter Progress Notes * Gertrude Mercado - 03/14/2019 11:11 AM LIFE SCIENCE RESEARCH ASSISTANT Patient contacted [facility] on 03/14/19 regarding refill. Patient stated insurance wi ll no longer cover Praluent. Patient has been switched to Repatha. Patient state d she will be filling this with her local pharmacy. Patient will be un enrolled from [facility] services at this time. SCIENCE RESEARCH ASSISTANT documented in this encounter Plan of Treatment Care Team Description Date Type Specialty Mayank Novoa DO [address] [facility] [address] [place] [address] [phone] 06/17/2019 Appointment Pain Medicine Vikas Ross MD [address] [place] [address] [phone] 07/03/2019 Office Visit Cardiology documented as of this encounter Visit Diagnoses Not on filedocumented in this encounter
--- OUTSIDE RECORDS SUMMARY | 2019-06-07 16:04 | XMS REPORT | Encounter Summary ---
Author Author [facility] Organization [facility] Address Unknown Phone Unavailable Care Team Providers Care Pulpwood Cutter Name Role Phone Shannon Falk PCP Reason for Referral * Consultation (Routine) Referred By Contact Referred To Contact Status Reason Specialty Diagnoses / Procedures Yobany Riddle PA-C [address] [facility] [address] [place] [address] [facility] [address] [place] [id number] Closed Specialty Services Pain Medicine Diagnoses Required Low back pain Reason for Visit * Reason Comments Upper Back Pain Mid Back Pain * Consultation (Routine) Referred By Contact Referred To Contact Status Reason Specialty Diagnoses / Procedures Yobany Riddle PA-C [address] [facility] [address] [place] [address] [facility] [address] [place] [address] Closed Specialty Services Pain Medicine Diagnoses Required Low back pain Encounter Details Care Team Description Date Type Department Mayank Novoa DO [address] [facility] [address] [place] [address] [phone] Myofascial pain syndrome (Primary Dx); Spondylosis of thoracic region without myelopathy or radiculopathy; Rheumatoid arthritis, involving unspecified site, unspecified rheumatoid factor presence (HCC); Low back pain 12/26/2018 [facility] al Encounter Pain Management Clinic [address] [place] [address] Social History Date Tobacco Use Types Packs/Day [...] Signs Reading Time Taken Comments Vital Sign 144/92 12/26/2018 11:00 AM ASBESTOS BRAKE LINING FINISHER notifi ed of BP Blood Pressure 51 12/26/2018 11:00 AM ASBESTOS BRAKE LINING FINISHER Pulse - - Temperature - - Respiratory Rate 100% 12/26/2018 11:00 AM ASBESTOS BRAKE LINING FINISHER Oxygen Saturation - - Inhaled Oxygen Concentration 85.5 kg (188 lb 8 oz) 12/26/2018 11:00 AM ASBESTOS BRAKE LINING FINISHER Weight 162.6 cm (5' 4") 12/26/2018 11:00 AM ASBESTOS BRAKE LINING FINISHER Height 32.36 12/26/2018 11:00 AM ASBESTOS BRAKE LINING FINISHER Body Mass Index documented in this encounter Discharge Instructions * Patient Instructions* Neyda Santiago RN - 12/26/2018 11:59 AM ASBESTOS BRAKE LINING FINISHER TRIGGER POINT INJECTION PRE-INSTRUCTIONS Arrive 15 minutes before your scheduled appointment time. Bring a copy of your health insurance card and drivers license. Bring a list of your medications including the dose and how often you take it. Please call us ([phone]) if you are on an antibiotic or if you have had a cold, cough, fever, or sore throat. If you are diabetic please check your blood sugar prior to your appointment. If your BS is over 250 please call before you come in for your procedure. STOS BRAKE LINING FINISHER documented in this encounter Medications at Time [...] rheumatoid factor presence (HCC), Low back pain HYDROcodone-acetaminophen Take 1 tablet 0 (NORCO) 7.5-325 mg per by mouth tablet every 6 (six) hours as needed for pain. 04/18/2015 levothyroxine (SYNTHROID, Take 75 mcg 0 LEVOTHROID) 75 MCG tablet by mouth daily. metoprolol tartrate Take 25 mg by 0 (LOPRESSOR) 25 MG tablet mouth daily. olmesartan (BENICAR) 40 Take 40 mg by 0 MG tablet mouth daily. 10/31/2018 03/01/2019 alirocumab (PRALUENT) 150 Inject 1 mL 2 mL 11 mg/mL pen injection (150 mg total) under the skin every 2 (two) weeks. 10/31/2018 01/07/2019 alirocumab (PRALUENT) 150 Inject 1 mL 2 Syringe 0 mg/mL pen injection (150 mg total) under the skin every 2 (two) weeks. 03/13/2019 ergocalciferol (VITAMIN Take 50,000 0 D2) 50,000 unit capsule Units by mouth weekly. 12/18/2018 04/05/2019 gabapentin (NEURONTIN) 3 (three) 1 300 MG capsule times a day. documented as of this encounter H&P Notes * Mayank Novoa DO - 12/26/2018 11:34 AM ASBESTOS BRAKE LINING FINISHER [facility] NEW PATIENT HISTORY AND PHYSICAL NAME: Hari Obrien CPI: [id number] AGE: 68 y.o. : 1950 Date of Visit: 12/26/2018 Subjective Chief Complaint Patient presents with Upper Back Pain Mid Back Pain HPI: Hari Obrien is a 68 y.o. female who has a past medical history of Anesthesia complication, Chronic pain disorder, Degenerative joint disease (DJD) of lumbar spine, Edema of lower extremity, Essential hypertension, Foot drop, left, GERD (gastroesophageal reflux disease), Head injury, History of blood clots, Hypothyr oidism, Mixed hyperlipidemia, Neuropathy, Obesity (BMI 30.0-34.9), Osteoarthriti s, RA (rheumatoid arthritis) ([facility]), Radicular leg pain (05/25/2015), Rheumatoid ar thritis of spine ([facility]), Sciatica, and Urinary incontinence. She presents for susan luation of pain. The patient has had prior diagnostic evaluation including: Surgical consultation has been performed with Dr. Abdi. She is referred he re from his clinic for evaluation and treatment of mid and thoracic back pain. She is previously undergone an L4-L5 TLIF in 2016 with good relief of her low ba ck and radicular pain. She has not had any residual issues with those complaint s. She also has rheumatoid arthritis. - The patient complains of Upper Back Pain and Mid Back Pain. This pain does rad iates just slightly off midline bilaterally. Denies low back pain. Denies radicu lar pain. Can't burr picker heavy things at the end of the day. - Pain started: About 1 year ago without incident - Timing of pain: It gets worse as the day progresses. - The pain is described as Aching, Dull - The pain is exacerbated by "nothing specific" - The pain is partially alleviated by rest. - The pain ratings are 8 with sleep, 5 with rest, and 6 with movement. - Neurologic Deficit: - Numbness/tingling: Occasionally in the hands. - Denies weakness or falls. She previously had foot drop which has resolved wit h her fusion. - Patient denies bowel or bladder dysfunction. PRIOR INTERVENTIONS: L4-L5 TLIF (2015) Past Surgical History: Procedure Laterality Date BUNIONECTOMY Right FRACTURE SURGERY Left CLAVICAL FX FUSION, SPINE, LUMBAR, INTERBODY, TRANSFORAMINAL APPROACH Left 07/28/2015 Procedure: L4-L5 FUSION TRANSFORAMINAL LUMBAR INTERBODY SPINE; Surgeon: Yue Abdi MD; Location: [facility] OR; Service: Neurosurgery; Laterality: Le ft; HYSTERECTOMY MARTY FUNDOPLICATION ROTATOR CUFF REPAIR Right TONSILLECTOMY AND ADENOIDECTOMY VEIN LIGATION AND STRIPPING Left Effective Physical Therapy - physician ordered Home Exercise Plan Dry needling and acupuncture Lumbar JESSICA, prior to surgery ? Ineffective PRIOR MEDICATIONS: Effective Hydrocodone 2/day Gabapentin Acetaminophen Celebrex 200mg ? Ineffective Unable to tolerate Never Lyrica Amitriptyline/Nortriptyline Cymbalta Tizanidine Flexeril Robaxin Tramadol Oxycodone Morphine ROS: All 14 systems reviewed and found to be negative except as above and as fol lows: Positive for fatigue, weight gain, generalized weakness, swelling in ankle s, increased fatigue, increased thirst, intolerance to cold and heat, easy bleed ing, easy bruising, joint pain, muscle pain, muscle weakness, back pain, leg hand scraper mping, neck pain, bladder incontinence, loss of balance. Family History: Family History Problem Relation Age of Onset Hyperlipidemia Mother Hyperlipidemia Father COPD Father Stroke Father Heart attack Father Heart attack Brother Social History: Lives in [facility] [address] Social History Socioeconomic History Marital status: Spouse name: Not on file Number of children: Not on file Years of education: Not on file Highest education level: Not on file Occupational History Not on file Social Needs Financial resource strain: Not on file Food insecurity: Worry: Not on file Inability: Not on file Transportation needs: Medical: Not on file Non-medical: Not on file Tobacco Use Smoking status: Never Smoker Smokeless tobacco: Never Used Substance and Sexual Activity Alcohol use: Yes Comment: RARELY Drug use: No Sexual activity: Not on file Lifestyle Physical activity: Days per week: Not on file Minutes per session: Not on file Stress: Not on file Relationships Social connections: Talks on phone: Not on file Gets together: Not on file Attends confucianist service: Not on file Active member of club or organization: Not on file Attends meetings of clubs or organizations: Not on file Relationship status: Not on file Intimate partner violence: Fear of current or ex partner: Not on file Emotionally abused: Not on file Physically abused: Not on file Forced sexual activity: Not on file Other Topics Concern Not on file Social History Narrative Not on file Allergies: Allergies Allergen Reactions Ugwpnur-[id number] Reductase Inhibitors Myalgia Sulfa (Sulfonamide Antibiotics) Hives Remicade [Infliximab] Rash Medications: Current Outpatient Medications: alirocumab (PRALUENT) 150 mg/mL pen injection, Inject 1 mL (150 mg total) u nder the skin every 2 (two) weeks., Disp: 2 mL, Rfl: 11 alirocumab (PRALUENT) 150 mg/mL pen injection, Inject 1 mL (150 mg total) u nder the skin every 2 (two) weeks., Disp: 2 Syringe, Rfl: 0 celecoxib (CELEBREX) 200 MG capsule, Take 200 mg by mouth daily., Disp: , R fl: citalopram (CELEXA) 20 MG tablet, Take by mouth every morning. , Disp: , Rf l: ergocalciferol (VITAMIN D2) 50,000 unit capsule, Take 50,000 Units by mouth weekly., Disp: , Rfl: gabapentin (NEURONTIN) 300 MG capsule, TAKE 1 CAPSULE BY MOUTH EVERY DAY, D isp: , Rfl: 1 HYDROcodone-acetaminophen (NORCO) 7.5-325 mg per tablet, Take 1 tablet by m outh every 6 (six) hours as needed for pain., Disp: , Rfl: levothyroxine (SYNTHROID, LEVOTHROID) 75 MCG tablet, Take 75 mcg by mouth d aily. , Disp: , Rfl: metoprolol tartrate (LOPRESSOR) 25 MG tablet, Take 25 mg by mouth daily., D isp: , Rfl: olmesartan (BENICAR) 40 MG tablet, Take 40 mg by mouth daily., Disp: , Rfl: diclofenac (VOLTAREN) 1 % gel, Apply 2 g topically 4 (four) times a day as needed., Disp: 2 Tube, Rfl: 5 Objective BP (!) 144/92 Comment: notified of BP | Pulse (!) 51 | Ht 1.626 m (5' 4") | Wt 85.5 kg (188 lb 8 oz) | SpO2 100% | BMI 32.36 kg/m General: The patient is a well-developed, well-nourished 68 y.o. female in no ac upper [place] distress. HEENT: Head is normocephalic and atraumatic. Pupils are equal and reactive to li ght bilaterally. Cardiac: Based on palpation, pulse appears to be regular rate and rhythm. Pulmonary: The patient has unlabored respirations and bilateral symmetric chest excursion. Abdomen: Soft, nontender, and nondistended. There is no rebound or guarding. Extremities: No clubbing, cyanosis, or edema. Neurologic: The patient is alert and oriented times 3. Cranial nerves II through XII are grossly intact without any focal deficits. Sensation is grossly symmetr ical in the affected area. No allodynia noted. Musculoskeletal: Gait is normal. ? T-Spine Kyphosis noted on exam ROM with flexion, extension, rotation, and lateral bending is intact. There is no point vertebral tenderness in the midline. There is mild to moderate bilateral paraspinal tenderness. This is exacerbated with extension and lateral side bending. Paraspinal muscle tone is normal. Facet loading is positive. IMAGING: L SPINE Results for orders placed during the hospital encounter of 07/28/15 CT Lumbar Spine wo contrast Narrative Patient: HARI OBRIEN Sex#: F # [id number] Abdirizak#: [id number] Location: [facility] [address] NI OR NONE Procedure Requested: [id number] CT LUMBAR SPINE WO CONTRAST Reason for Exam: L4-L5 TLIF Exam Ordered: 07/28/2015 0751 Check-in Date/Time: 07/28/[address] LUMBAR SPINE WO CONTRAST INDICATION: L4-L5 TLIF COMPARISON: 05/27/2015. Impression FINDINGS/IMPRESSION: Intraoperative CT guidance was used utilized by the neurosurgical service. Total exam DAP is reported at 1335.50 mGycm2. Imaging demonstrates placement of leads/wires at the L4-L5 levels. These extend through the bilateral pedicles. Instrumented fusion was subsequently performed. Lower lumbar spine facet arthropathy is noted. There are degenerative changes of the bilateral SI joints. Please see operative note for full details regarding real-time findings. READING SITE: [facility] Results for orders placed in visit on 12/07/18 XR Lumbar Spine 2 or 3 views Narrative Patient: HARI OBRIEN Sex#: F #: [id number] Abdirizak#: [id number] Location: [facility] XRAY Procedure Requested: [id number] XR LUMBAR SPINE 2 OR 3 VIEWS Reason for Exam: Low back pain Exam Ordered: 12/07/2018 1202 Exam Date/Time: 12/07/2018 1224 Begin exam date/time: 12/07/2018 1202 XR LUMBAR SPINE 2 OR 3 VIEWS DATE: 12/07/2018 12:24 PM INDICATION: Low back pain COMPARISON: Lumbar spine radiographs dated 09/21/2015 TECHNIQUE: upright lateral views in neutral, flexion, and extension; additional lateral spot view of the lumbosacral junction in neutral FINDINGS: Five non-rib bearing lumbar-type vertebral bodies are present. Bones/Alignment: There are stable postsurgical changes following interbody fusion and posterior instrumentation at L4-L5. There is no lucency around the hardware or hardware migration compared to the prior exam. Grade 1 anterolisthesis at L4-L5 measures 6 mm, and is unchanged. Grade 1 anterolisthesis at L5-S1 measures 5 mm in neutral, and is also unchanged. There is no abnormal motion between flexion and extension. There are no compression deformities. Joints: There is mild degenerative disc disease at the other levels, which is unchanged. There is severe facet osteoarthritis at L5-S1. Severe degenerative narrowing of the distance between the L2 and L3 spinous processes is noted, with spinous process abutment and mild sclerotic change at their margins. Miscellaneous: Atherosclerotic calcifications of the aorta. Impression 1. L4-L5 interbody fusion with posterior instrumentation. No eviden ce of hardware failure. 2. Grade 1 anterolisthesis at L4-L5 and L5-S1 is unchanged. No abnormal motion between flexion and extension. 3. Stable multilevel spondylosis compared to the prior radiograph on 09/21/2015. READING SITE: [facility] I have personally reviewed these images and reports. Last Cr and LFT's: Creatinine Date Value Ref Range Status 09/29/2017 0.9 0.4 - 1.1 mg/dL Final 09/29/2017 0.9 0.4 - 1.1 mg/dL Final Aspartate Aminotransferase Date Value Ref Range Status 09/29/2017 31 15 - 46 IU/L Final Alanine Aminotransferase Date Value Ref Range Status 09/29/2017 19 0 - 34 IU/L Final Comment: ALT reference range changed on 08-29-2017 Alkaline Phosphatase Date Value Ref Range Status 09/29/2017 99 42 - 140 IU/L Final Hemoglobin A1C Date Value Ref Range Status 11/27/2018 5.2 % Final Assessment Hari Obrien is a 68 y.o. female who has a past medical history of Anesthesia comp lication, Chronic pain disorder, Degenerative joint disease (DJD) of lumbar spin e, Edema of lower extremity, Essential hypertension, Foot drop, left, GERD (leeanna roesophageal reflux disease), Head injury, History of blood clots, Hypothyroidis m, Mixed hyperlipidemia, Neuropathy, Obesity (BMI 30.0-34.9), Osteoarthritis, RA (rheumatoid arthritis) ([facility]), Radicular leg pain (05/25/2015), Rheumatoid arthrit is of spine ([facility]), Sciatica, and Urinary incontinence. She presents for evaluati on of pain. The pain complaints are most likely due to myofascial pain and trigger points in the setting of thoracic kyphosis. She does have a history of L4-L5 fusion, but does not seem to complain of any low back or radicular pain. I suspect that mo st of this thoracic pain is myofascial in nature and will resolve with conservat dre treatments. However, we may consider facet directed treatments. She has on going PT and HEP which I have encouraged her to continue. 1. Myofascial pain syndrome 2. Spondylosis of thoracic region without myelopathy or radiculopathy 3. Rheumatoid arthritis, involving unspecified site, unspecified rheumatoid fact or presence (HCC) 4. Low back pain Patient has had an adequate trial of > 6 month of rest, exercise, multimodal treatment, and the passage of time without improvement of symptoms. The pain has significant impact on the daily quality of life. Anticoagulants: None Plan - Lifestyle modification: Encouraged proper nutrition and activity. Avoid provoc ative maneuvers and positions. - Therapy: Encourage physical therapy and home exercise plan. - Diagnostic/Imaging: No further investigation necessary at this time - Referral: None needed at this time. - Plan for thoracic TPI at first available appointment. If this is ineffective , we may consider medial branch blocks and RFA. - Will trial Voltaren gel - Follow up for procedure. Risks/benefits of all pharmacologic and interventional treatments discussed and questions answered. Mayank Novoa DO Interventional Pain Medicine [facility] STOS BRAKE LINING FINISHER documented in this encounter Plan of Treatment Care Team Description Date Type Specialty Mayank Novoa DO [address] [facility] [address] [place] [address] [phone] 06/17/2019 Appointment Pain Medicine Vikas Ross MD [address] [facility] [address] [place] [address] [phone] 07/03/2019 Office Visit Cardiology Order Schedule Name Type Priority Associated Diag noses As Needed for 1 Occurrences starting 07/2018 until 12/26/2018 Ambulatory referral to Outpatient Routine [facility] Referral documented as of this encounter Visit Diagnoses Diagnosis Myofascial pain syndrome Unspecified myalgia and myositis Spondylosis of thoracic region without myelopathy or radiculopathy Rheumatoid arthritis, involving unspeci fied site, unspecified rheumatoid factor presence (HCC) Low back pain Lumbago documented in this encounter
--- OUTSIDE RECORDS SUMMARY | 2019-06-07 16:04 | XMS REPORT | Encounter Summary ---
Author Author [facility] Organization [facility] Address Unknown Phone Unavailable Care Team Providers Care Mains And Service Supervisor Name Role Phone Dunnell, Shannon PCP Encounter Details Care Team Description Date Type Department Vikas Ross MD [address] [facility] [address] [place] [address] [phone] 02/14/2019 Documentation [facility] [address] [facility] [address] [place] [address] Social History Date Tobacco Use Types Packs/Day [...] Date Type Specialty Mayank Novoa DO [address] [facility] [address] [place] [address] [phone] 06/17/2019 Appointment Pain Medicine Vikas Ross MD [address] [facility] [address] [place] [address] [phone] 07/03/2019 Office Visit Cardiology documented as of this encounter Visit Diagnoses Not on filedocumented in this encounter
--- OUTSIDE RECORDS SUMMARY | 2019-06-07 16:04 | XMS REPORT | Encounter Summary ---
Author Author [facility] Organization [facility] Address Unknown Phone Unavailable Care Team Providers Care Grinder Mill Operator Name Role Phone Shannon Falk PCP Encounter Details Care Team Description Date Type Department Yobany Riddle PA-C [address] [facility] [address] [place] [address] [phone] Spinal stenosis, lumbar 12/07/2018 Imaging [facility] Stretchu e Appointment Location Social History Date Tobacco Use Types Packs/Day [...] Date Type Specialty Mayank Novoa DO [address] [facility] [address] [place] [address] [phone] 06/17/2019 Appointment Pain Medicine Vikas Ross MD [address] [address] [place] [address] [phone] 07/03/2019 Office Visit Cardiology documented as of this encounter Procedures Comments Procedure Name Priority Date/Time Associated Diag nosis XR OUTSIDE IMAGES FOR Routine 12/07/2018 Spinal s tenosis, lumbar PACS 10:46 AM CDT documented in this encounter Results * XR Outside images for PACS (12/07/2018 10:46 AM CDT) Specimen Performing Organization Address City/State/Zipcode Ph one Number KALIE documented in this encounter Visit Diagnoses Diagnosis Spinal stenosis, lumbar Spinal stenosis of lumbar region documented in this encounter
--- OUTSIDE RECORDS SUMMARY | 2019-06-07 16:04 | XMS REPORT | Encounter Summary ---
Author Author [facility] Organization [facility] Address Unknown Phone Unavailable Care Team Providers Care Monogram And Letter Paster Name Role Phone Shannon Falk PCP Reason for Referral * Consultation (Routine) Referred By Contact Referred To Contact Status Reason Specialty Diagnoses / Procedures Yobany Riddle PA-C [address] [place] [address] [facility] [address], [address] [facility] [address] [place] [address] Closed Specialty Services Pain Medicine Diagnoses Required Low back pain Reason for Visit * Reason Comments Follow-up * Consultation (Routine) Referred By Contact Referred To Contact Status Reason Specialty Diagnoses / Procedures Nikhil Brooke DO [address] [place] [address] Frank Abdi MD [address] [place] [address] Closed Specialty Services Neurosurgery Diagnoses Required Low back pain Encounter Details Care Team Description Date Type Department Nikhil Brooke DO [address] [place] [address] [phone] Yobany Riddle PA-C [address] [place] [address] [phone] Low back pain (Primary Dx) 12/07/2018 Office Visit [facility] [address] [facility], [address] [place] [address] Social History Date Tobacco Use Types Packs/Day [...] Signs Reading Time Taken Comments Vital Sign 146/84 12/07/2018 11:18 AM CDT Blood Pressure 69 12/07/2018 11:18 AM CDT Pulse - - Temperature - - Respiratory Rate - - Oxygen Saturation - - Inhaled Oxygen Concentration 87.1 kg (192 lb) 12/07/2018 11:18 AM CDT Weight 162.6 cm (5' 4") 12/07/2018 11:18 AM CDT Height 32.96 12/07/2018 11:18 AM CDT Body Mass Index documented in this encounter Progress Notes * Yobany Riddle PA-C - 12/07/2018 11:00 AM CDT Neurologic Surgery Return Patient Note Patient ID: Dalila Obrien is a 68 y.o. female. Subjective: Patient presents with increased thoracolumbar back pain. This is been slowly pr ogressive over the past several months. She denies any radicular pain into the legs. She rates her pain as a 3 out of 10 right now. It has worsened to a 7 ou t of 10 in the past. She saw her land leveler for this complaint who ordered lumbar x-rays and referred her to physical therapy. She has noted only minimal improvements with the physical therapy. She is now 3 years status post L4-L5 tr ansforaminal lumbar interbody fusion. X-rays of the lumbar spine demonstrate stable L4-L5 transforaminal lumbar interb rebecca fusion without evidence of hardware failure or loosening. There is no listh esis identified otherwise on the study. Neck Disability Index: % OSWESTRY: Oswestry Modified Score %: 34 %% PHQ-9 PHQ-9: Over the last 2 weeks, how often have you been bothered by any of the following problems? Little Interest or Pleasure in Doing Things: 1 Feeling Down, Depressed, or Hopeless: 0 Trouble falling or staying asleep, or sleeping too much: 3 Feeling tired or having little energy: 2 Poor appetite or overeatin Feeling bad about yourself - or that you are a failure or have let yourself or y our family down: 0 Trouble concentrating on things, such as reading the newspaper or watching telev ision: 1 Moving or speaking so slowly that other people could have noticed. Or the opposi te - being so fidgety or restless that you have been moving around a lot more th an usual: 0 Thoughts that you would be better off , or of hurting yourself in some way: 0 PHQ-9 Total Score: 8 If you checked off any problems, how difficult have these problems made it for y ou to do your work, take care of things at home, or get along with other people? : Somewhat difficult Review of Systems Constitutional: (-) fever, (-) change of appetite, (+) fatigue CV: (-) chest pain GI: (-) bloody/tarry stools, (-) abdominal pain, (-) weight loss, (-) diarrhea, (-) weight gain, (-) constipation : (-) difficulty urinating ENDO: (-) excessive hunger/thirst, (-) loss of libido, (-) spontaneous nipple di scharge PSYCH: (-) depression, (-) memory problems HEM: (+) easy bruising, (+) easy bleeding HEENT: (-) visual changes, (-) seasonal allergies SKIN: (-) rash/ skin condition PULM: (+) SOB MUSCULOSKELETAL: (+) muscle aches or pain Objective: BP (!) 146/84 (BP Location: Right arm, Patient Position: Sitting) | Pulse 69 | Ht 1.626 m (5' 4") | Wt 87.1 kg (192 lb) | BMI 32.96 kg/m Physical Exam Incision is well healed with appropriate scar formation. Gait and station are normal. Ambulating without assist 5/5 strength in bilateral upper and lower extremities Sensation intact to light touch all extremities. Assessment/Plan: Mrs. Obrien is a pleasant 68-year-old female who presents to clinic today with inc reased thoracolumbar back pain. She denies any radicular complaints at this jerry e. She is 3 years status post fusion. I will obtain flexion and extension x-ra ys of the lumbar spine. I would otherwise recommend referral to the pain clinic for evaluation for possible medial branch blocks. She is already worked with p hysical therapy and I would encourage continued work with the physical therapist . Will be important to develop a home exercise program as well. She verbalized understanding and is happy with this plan. We will see her back on an as-needed basis. Yobany Riddle PA-C [facility] Neurosurgery [facility] [address] [address] documented in this encounter Plan of Treatment Care Team Description Date Type Specialty Mayank Novoa DO [address] [facility] [address] [place] [address] [phone] 06/17/2019 Appointment Pain Medicine Vikas Ross MD [address] [facility] [facility] [address] [place] [address] [phone] 07/03/2019 Office Visit Cardiology Order Schedule Name Type Priority Associated Diag noses 1 Occurrences starting 12/07/2018 until 06/08/2019 Ambulatory referral to Outpatient Routine Low [facility] Referral documented as of this encounter Results * XR Lumbar Spine 2 or 3 views (12/07/2018 12:24 PM CDT) Specimen Impressions Performed At 1. L4-L5 interbody fusion with posterior instrument ation. No evidence KALIE of hardware failure. 2. Grade 1 anterolisthesis at L4-L5 a nd L5-S1 is unchanged. No abnormal motion between flexion and extension. 3. Stable multilevel spondylosis comp ared to the prior radiograph on 09/21/2015. READING SITE: [facility] Imaging Narrative Performed At Patient: DALILA OBRIEN Sex#: F #: [id number] Abdirizak# : [id number] Location: [facility] XRAY 0502 Procedure Requested: [id number] XR LUMBA R SPINE 2 OR 3 VIEWS Reason for Exam: Low back pain Exam Ordered: 12/07/2018 1 202 Exam Date/Time: 12/07/2018 12 24 Begin exam date/time: 12/07/2018 12 02 XR LUMBAR SPINE 2 OR 3 VIEWS DATE: 12/07/2018 12:24 PM INDICATION: Low back pain COMPARISON: Lumbar spine radiographs dated 09/21/2015 TECHNIQUE: upright lateral views in n eutral, flexion, and extension; additional lateral spot view of the lum bosacral junction in neutral FINDINGS: Five non-rib bearing lumbar-type verteb ral bodies are present. Bones/Alignment: There are stable posts urgical changes following interbody fusion and posterior instrume ntation at L4-L5. There is no lucency around the hardware or hardware migration compared to the prior exam. Grade 1 anterolisthesis at L4-L5 measures 6 mm, and is unchanged. Grade 1 anterolisthesis at L5-S1 measur es 5 mm in neutral, and is also unchanged. There is no abnormal motion between flexion and extension. There are no compression deformities. Joints: There is mild degenerative disc disease at the other levels, which is unchanged. 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 Severe degenerative narrowing of the di stance between the L2 and L3 spinous processes is noted, with spinou s process abutment and mild sclerotic change at their margins. Miscellaneous: Atherosclerotic calcific ations of the aorta. Procedure Note Interface, Rad Results In - 12/07/2018 1:47 PM CDT Patient: MICAH DALILA Sex#: F #: [id number] Abdirizak#: [id number] Location: [facility] XRAY Procedure Requested: [id number] XR LUMBAR SPINE 2 OR 3 VIEWS [...] margins. Miscellaneous: Atherosclerotic calcifications of the aorta. IMPRESSION 1. L4-L5 interbody fusion with posterio r instrumentation. No evidence of hardware failure. 2. Grade 1 anterolisthesis at L4-L5 and L5-S1 is unchanged. No abnormal motion between flexion and extension. 3. Stable multilevel spondylosis compar ed to the prior radiograph on 09/21/2015. READING SITE: [facility] Imaging Performing Organization Address City/State/Zipcode Ph one Fito JADE documented in this encounter Visit Diagnoses Diagnosis Low back pain Lumbago documented in this encounter
--- OUTSIDE RECORDS SUMMARY | 2019-06-07 16:04 | XMS REPORT | Encounter Summary ---
Author Author [facility] Organization [facility] Address Unknown Phone Unavailable Care Team Providers Care Rivet Hole Machine Operator Name Role Phone Shannon Falk PCP Encounter Details Care Team Description Date Type Department Yobany Riddle PA-C [address] [facility] [address] [place] [address] [phone] Spinal stenosis, lumbar (Primary Dx) 12/07/2018 Transcribe [facility] Neurol ogical Orders & Spine Surgery [address] [facility] [address] [place] [address] Social History Date Tobacco Use Types Packs/Day [...] DO [address] [facility] [address] [place] [address] [phone] 06/17/2019 Appointment Pain Medicine Vikas Ross MD [address] [place] [address] [phone] 07/03/2019 Office Visit Cardiology documented as of this encounter Results * XR Outside images for PACS (12/07/2018 10:46 AM CDT) Specimen Performing Organization Address City/State/Zipcode Ph one Number KALIE documented in this encounter Visit Diagnoses Diagnosis Spinal stenosis, lumbar Spinal stenosis of lumbar region documented in this encounter
--- OUTSIDE RECORDS SUMMARY | 2019-06-07 16:04 | XMS REPORT | Encounter Summary ---
Author Author [facility] Organization [facility] Address Unknown Phone Unavailable Care Team Providers Care Hygiene Coordinator Name Role Phone Shannon Falk PCP Reason for Visit * Reason Comments Low Back Pain * Pain Management (Routine) Referred By Contact Referred To Contact Status Reason Specialty Diagnoses / Procedures [facility] [address] [place] [address] Mayank Novoa DO [address] [place] [address] Closed Pain Management Diagnoses / Pain Medicine TPI/EXPECTING INJ P rocedures TRIGGER POINT INJECTION Encounter Details Care Team Description Date Type Department Mayank Novoa DO [address] [place] [address] [phone] Myofascial pain syndrome (Primary Dx); Spondylosis of thoracic region without myelopathy or radiculopathy; Rheumatoid arthritis, involving unspecified site, unspecified rheumatoid factor presence (HCC) 01/14/2019 [facility] al Encounter Pain Management Clinic [address] [place] [id number] Social History Date Tobacco Use Types Packs/Day [...] Signs Reading Time Taken Comments Vital Sign 155/98 01/14/2019 12:01 PM VENDOR REPRESENTATIVES Blood Pressure 53 01/14/2019 12:01 PM VENDOR REPRESENTATIVES Pulse 36.9 C (98.4 F) 01/14/2019 11:11 AM VENDOR REPRESENTATIVES Temperature - - Respiratory Rate 95% 01/14/2019 12:01 PM VENDOR REPRESENTATIVES Oxygen Saturation - - Inhaled Oxygen Concentration 87.1 kg (192 lb) 01/14/2019 11:11 AM VENDOR REPRESENTATIVES Weight 162.6 cm (5' 4") 01/14/2019 11:11 AM VENDOR REPRESENTATIVES Height 32.96 01/14/2019 11:11 AM VENDOR REPRESENTATIVES Body Mass Index documented in this encounter Discharge Instructions * Patient Instructions* Neyda Santiago RN - 01/14/2019 11:53 AM VENDOR REPRESENTATIVES Trigger Point and Blocks (Occipital, Axillary, Inguinal, Intra-articular, Joint) Keep the injection site dry until tomorrow [...] If you have any questions, please call [phone] or , Monday (8:00AM - 4:00 PM). On evenings, weekends, and holidays, please ca [phone] and ask for the control cabinet assembler Anesthesiologist for pain management. OR REPRESENTATIVES documented in this encounter Medications at Time [...] Procedure Notes * Mayank Novoa DO - 01/14/2019 11:52 AM VENDOR REPRESENTATIVES Associated Order(s): Trigger point >=3 muscle groups Post-Procedure Diagnose(s): Myofascial pain syndrome; Spondylosis of thoracic re gion without myelopathy or radiculopathy; Rheumatoid arthritis, involving unspec ified site, unspecified rheumatoid factor presence (HCC) Trigger point >=3 muscle groups Performed by: Mayank Novoa DO Authorized by: Mayank Novoa DO INTERVENTIONAL PAIN MANAGEMENT PROCEDURE REPORT Trigger Point Injection Date of Service: 01/14/2019 Procedure Title(s): 1. Trigger Point Injection - bilateral thoracic erector spinae, trapezius, and r homboid musculature Preprocedure diagnosis: 1. Myofascial Pain Syndrome 2. Myalgia Attending Surgeon: Mayank Novoa Anesthesia: Local Indications: Dalila Hameed is a 68 y.o. female with a diagnosis of myofascial pain syndrome/myalgia. The patient's history and physical exam were reviewed. She has tenderness to palpation over the bilateral paraspinal musculature in the thorac ic spine. Multiple taut bands noted. With palpation there is radiation of pain . Procedure in Detail: Consent was obtained and placed in the patient's chart. The patient identified 3 points of tenderness in the bilateral thoracic erector spinae, trapezius, and r homboid musculature. This area was cleaned with sterile prep. A 27g needle was i nserted into each location and 0.5mL of a solution containing 0.5% bupivacaine a nd triamcinolone 40mg was injected at each site. The needle was then removed. Th e patient tolerated the procedure well. Estimated Blood Loss: Minimal Specimens: None Complications: None Disposition: The patient tolerated the procedure well, and there were no apparen t complications. Vital signs remained stable throughout the procedure. The patie nt was taken to the recovery area where discharge instructions for the procedure were given. OR REPRESENTATIVES documented in this encounter Plan of Treatment Care Team Description Date Type Specialty Mayank Novoa DO [address] [facility] [address] [place] [address] [phone] 06/17/2019 Appointment Pain Medicine Vikas Ross MD [address] [facility] [address] [place] [address] [phone] 07/03/2019 Office Visit Cardiology documented as of this encounter Procedures Comments Procedure Name Priority Date/Time Associated Diag nosis TRIGGER POINT >=3 MUSCLE Routine 01/14/2019 Myofa scial pain syndrome GROUPS 11:52 AM VENDOR REPRESENTATIVES Spondylosis of thor acic region without myelopathy or radiculopathy Rheumatoid arthritis, involving unspecified site, unspecified rheumatoid factor presence (HCC) documented in this encounter Results * Trigger point >=3 muscle groups (01/14/2019 11:52 AM VENDOR REPRESENTATIVES) Narrative Performed At Mayank Novoa DO 01/14/2019 11: 53 AM Trigger point >=3 muscle groups Performed [...] Dose Rate Site Medication Order MAR Action 01/14/2019 11:42 AM VENDOR REPRESENTATIVES 6 mL bupivacaine (pf) (MARCAINE) 0.5 % (5 Given mg/mL) injection Code/trauma/sedation medication, Starting Mon01/14/19 at 1142 01/14/2019 11:42 AM VENDOR REPRESENTATIVES 40 mg methylPREDNISolone acetate (DEPO-MEDROL) Given 40 mg/mL injection Code/trauma/sedation medication, Starting Mon01/14/19 at 1142 documented in this encounter
--- OUTSIDE RECORDS SUMMARY | 2019-06-07 16:04 | XMS REPORT | Encounter Summary ---
Author Author [facility] Organization [facility] Address Unknown Phone Unavailable Care Team Providers Care Creative Arts Music Therapist Name Role Phone Shannon Falk PCP Reason for Visit * Reason Comments new patient appointment Encounter Details Care Team Description Date Type Department Neyda Santiago RN new patient appointment 12/24/2018 Telephone [facility] [address] [place] [address] [address] [place] [address] Social History Date Tobacco Use Types Packs/Day [...] encounter Miscellaneous Notes * Telephone Encounter - Neyda Santiago RN - 12/24/2018 2:57 PM FIBER GLASS WORKER Placed call, left msg for pt regarding new pt appt 12/26/[address] Novoa R GLASS WORKER documented in this encounter Plan of Treatment Care Team Description Date Type Specialty Mayank Novoa DO [address] [facility] [address] [place] [address] [phone] 06/17/2019 Appointment Pain Medicine Vikas Ross MD [address] [facility] [address] [place] [address] [phone] 07/03/2019 Office Visit Cardiology documented as of this encounter Visit Diagnoses Not on filedocumented in this encounter
--- OUTSIDE RECORDS SUMMARY | 2019-06-07 16:04 | XMS REPORT | Encounter Summary ---
Author Author [facility] Organization [facility] Address Unknown Phone Unavailable Care Team Providers Care Staff Auditor Name Role Phone [place], Shannon PCP Encounter Details Care Team Description Date Type Department Vikas Ross MD [address] [facility] [address] [place] [address] [phone] 02/25/2019 Documentation [facility] [address] [facility] [address] [place] [address] Social History Date Tobacco Use Types Packs/Day [...] Date Type Specialty Mayank Novoa DO [address] [facility] [address] [place] [address] [phone] 06/17/2019 Appointment Pain Medicine Vikas Ross MD [address] [facility] [address] [place] [address] [phone] 07/03/2019 Office Visit Cardiology documented as of this encounter Visit Diagnoses Not on filedocumented in this encounter
--- OUTSIDE RECORDS SUMMARY | 2019-06-07 16:04 | XMS REPORT | Encounter Summary ---
Author Author [facility] Organization [facility] Address Unknown Phone Unavailable Care Team Providers Care Drawing In Machine Tender Name Role Phone Shannon Falk PCP Encounter Details Care Team Description Date Type Department Yobany Riddle PA-C [address] [facility] [address] [place] [address] [phone] Low back pain 12/07/2018 [facility] [address] [facility] [address] [place] [address] Social History Date Tobacco Use Types Packs/Day [...] Date Type Specialty Mayank Novoa DO [address] [facility] [address] [place] [address] [phone] 06/17/2019 Appointment Pain Medicine Vikas Ross MD [address] [facility] [address] [place] [address] [phone] 07/03/2019 Office Visit Cardiology documented as of this encounter Procedures Comments Procedure Name Priority Date/Time Associated Diag nosis XR LUMBAR SPINE 2 OR 3 Routine 12/07/2018 Low christina k pain VIEWS 12:24 PM CDT documented in this encounter Results * XR Lumbar Spine 2 or 3 views (12/07/2018 12:24 PM CDT) Specimen Impressions Performed At 1. L4-L5 interbody fusion with posterior instrument ation. No evidence MCKESSON of hardware failure. 2. Grade 1 anterolisthesis at L4-L5 a nd L5-S1 is unchanged. No abnormal motion between flexion and extension. 3. Stable multilevel spondylosis comp ared to the prior radiograph on 09/21/2015. READING SITE: [facility] Narrative Performed At Patient: HARI OBRIEN Sex#: F #: [id number] Abdirizak# : [id number] Location: [facility] XRAY 0502 Procedure Requested: [id number] XR LUMBA R SPINE 2 OR 3 [...] In - 12/07/2018 1:47 PM CDT Patient: HARI OBRIEN Sex#: F #: [id number] Abdirizak#: [id number] Location: [facility] XRAY Procedure Requested: [id number] XR LUMBAR SPINE 2 OR 3 VIEWS [...] the prior radiograph on 09/21/2015. READING SITE: [facility] Imaging Performing Organization Address City/State/Zipcode Ph one Fito JADE documented in this encounter Visit Diagnoses Diagnosis Low back pain Lumbago documented in this encounter
--- OUTSIDE RECORDS SUMMARY | 2019-06-07 16:04 | XMS REPORT | Encounter Summary ---
Author Author [facility] Organization [facility] Address Unknown Phone Unavailable Care Team Providers Care Platform Consultant Name Role Phone Shannon Falk PCP Reason for Referral * Diagnostic Imaging (Routine) Referred By Contact Referred To Contact Status Reason Specialty Diagnoses / Procedures Vikas Ross MD [address] [place] [address] [facility] [address] [facility], [address] [place] [address] Closed Radiology Diagnoses Edema of lower extremity P rocedures US Vein Mapping w Duplex lower extremity bilat complete Reason for Visit * Diagnostic Imaging (Routine) Referred By Contact Referred To Contact Status Reason Specialty Diagnoses / Procedures Vikas Ross MD [address] [place] [address] [facility] [address] [facility], [address] [place] [address] Closed Radiology Diagnoses Edema of lower extremity P rocedures US Vein Mapping w Duplex lower extremity bilat complete Encounter Details Care Team Description Date Type Department Pamela Navarro, ROSANNE [address] [place] [address] [phone] Ed[facility] of [facility] [address], [address] [place] [address] Social History Date Tobacco Use Types Packs/Day [...] a day. documented as of this encounter Plan of Treatment Care Team Description Date Type Specialty Mayank Novoa DO [address] [address] [phone] 06/17/2019 Appointment Pain Medicine Vikas Ross MD [address] [place] [address] [phone] 07/03/2019 Office Visit Cardiology documented as of this encounter Procedures Comments Procedure Name Priority Date/Time Associated Diag nosis US VEIN MAPPING W DUPLEX Routine 01/07/2019 Edema of lower extremity LOWER EXTREMITY BILAT 11:59 AM BUSINESS RISK CONSULTANT COMPLETE documented in this encounter Results * US Vein Mapping w Duplex lower extremity bilat complete (01/07/2019 11:59 AM BUSINESS RISK CONSULTANT) Specimen Impressions Performed At FINDINGS/IMPRESSION: [facility] RIGHT LOWER EXTREMITY: Right lower extremity is negative for D VT. Reflux in the femoral vein and the popl iteal vein. The Great Saphenous vein demonstrates 0 .79 seconds of reflux at the junction with a diameter of 9.4 mm. Anterior lateral saphenous vein demonst rates 0.98 seconds of reflux with a diameter of 4.7 mm. The Small Saphenous vein is patent with normal antegrade flow. Junction not visualized. The Vein of Giacomini demonstrates 0.7 seconds of reflux with a diameter of 2.4 mm distally. Tributary with 0.5 seconds of reflux me asures 4.8 mm in diameter in the thigh. LEFT LOWER EXTREMITY: Left lower extremity is negative for DV T. No deep venous insufficiency on the lef t. The Great Saphenous vein demonstrates 1 .3 seconds of reflux at the junction with a diameter of 8.4 mm. 0.9 6 seconds of reflux with a diameter of 5.9 mm proximally. Anterior lateral saphenous vein demonst rates 1.8 seconds of reflux with a diameter of 9.7 mm. The Small Saphenous vein is patent with normal antegrade flow. Junction not visualized. The Vein of Giacomini is patent with no rmal antegrade flow. Tributary with 4.2 seconds of reflux me asures 6.1 mm in diameter. IMPRESSION: Please refer to the vein ma pping diagram for complete details. Narrative Performed At Patient: HARI OBRIEN Sex#: F #: [id number] Abdirizak# : [id number] Location: [facility] US Procedure Requested: [id number] US VEIN MAPPING W DUPLEX LOWER EXTREMITY BILAT COMPLETE Reason for Exam: Edema of lower extre mity Exam Ordered: 01/07/2019 1 037 Exam Date/Time: 01/07/2019 11 59 Begin exam date/time: 01/07/2019 10 49 READING SITE: [facility] VEIN MAPPING W DUPLEX LOWER EXTREMIT Y BILAT COMPLETE Indication: Edema of lower extremity Technique: Real-time grayscale imaging of the bilateral lower extremities was performed for vein valerie ing. Color Doppler and pulse wave duplex imaging was utilized. Doppl er interrogation of the bilateral lower extremity venous structures from the common femoral vein to the posterior tibial veins was performed to evaluate for deep venous thrombosis. Procedure Note Interface, Rad Results In - 01/09/2019 2:08 PM BUSINESS RISK CONSULTANT Patient: HARI OBRIEN Sex#: F #: [id number] Abdirizak#: [id number] Location: [facility] US Procedure Requested: [id number] US VEIN MAPPING W DUPLEX LOWER EXTREMITY BILAT COMPLETE Reason for Exam: Edema of lower extremity Exam Ordered: 01/07/2019 1037 Exam Date/Time: 01/07/2019 1159 Begin exam date/time: 01/07/2019 1049 READING SITE: [facility] VEIN MAPPING W DUPLEX LOWER EXTREMITY BILAT COMPLETE Indication: Edema of lower extremity Technique: Real-time grayscale imaging of the bilateral lower extremities was performed for vein mapping. Color Doppler and pulse wave duplex imaging was utilized. Doppler interrogation of the bilateral lower extremity venous structures from the common femoral vein to the posterior tibial veins was performed to evaluate for deep venous thrombosis. IMPRESSION FINDINGS/IMPRESSION: RIGHT LOWER EXTREMITY: Right lower extremity is negative for DVT. Reflux in the femoral vein and the popliteal vein. The Great Saphenous vein demonstrates 0.79 seconds of reflux at the junction with a diameter of 9.4 mm. Anterior lateral saphenous vein demonstrates 0.98 seconds of reflux with a diameter of 4.7 mm. The Small Saphenous vein is patent with normal antegrade flow. Junction not visualized. The Vein of Giacomini demonstrates 0.7 seconds of reflux with a diameter of 2.4 mm distally. Tributary with 0.5 seconds of reflux measures 4.8 mm in diameter in the thigh. LEFT LOWER EXTREMITY: Left lower extremity is negative for DVT. No deep venous insufficiency on the left. The Great Saphenous vein demonstrates 1.3 seconds of reflux at the junction with a diameter of 8.4 mm. 0.96 seconds of reflux with a diameter of 5.9 mm proximally. Anterior lateral saphenous vein demonstrates 1.8 seconds of reflux with a diameter of 9.7 mm. The Small Saphenous vein is patent with normal antegrade flow. Junction not visualized. The Vein of Giacomini is patent with normal antegrade flow. Tributary with 4.2 seconds of reflux measures 6.1 mm in diameter. IMPRESSION: Please refer to the vein mapping diagram for complete details. Performing Organization Address [facility]/State[facility] Number [facility] documented in this encounter Visit Diagnoses Diagnosis Edema of lower extremity documented in this encounter
--- OUTSIDE RECORDS SUMMARY | 2019-06-07 16:04 | XMS REPORT | Encounter Summary ---
Author Author [facility] Organization [facility] Address Unknown Phone Unavailable Care Team Providers Care E Business Consultant Name Role Phone Shannon Falk PCP Encounter Details Care Team Description Date Type Department Vikas Ross MD [address] [facility] [address] [place] [address] [phone] Specialty Pharmacy Refill Coordination 12/18/2018 Specialty [facility] [address] [place] [address] Social History Date Tobacco Use Types Packs/Day [...] encounter Progress Notes * Gertrude Mercado - 12/18/2018 10:52 AM CDT Specialty Pharmacy Refill Coordination Note Dalila Hameed is a 68 y.o. female contacted today regarding refills of her specialt y medication(s) Praluent. Reviewed and verified with patient: Specialty medication(s) and dose(s) confirmed: yes Changes to medications: no Changes to insurance: no Medication Adherence What concerns does the patient have in regards to their medications: No questio ns for the Pharmacist at this time. Patient reported X missed doses in the last month: 0 Any gaps in refill history greater than 2 weeks in the last 3 months: no Demonstrates understanding of importance of adherence: yes Informant: patient Reliability of informant: reliable Provider-estimated medication adherence level: 90-100% Reasons for non-adherence: no problems identified Adherence tools used: calendar Other support network: None Confirmed plan for next specialty medication refill: delivery by pharmacy Refills needed for supportive medications: not needed Patient is due for injection on 12/26. [facility] will QS medication to [facility] on 12/24 . Patient would like to oyster picker after appointment on 12/26. Follow-up: 28 day(s) Gertrude Mercado Specialty Infant Caregiver documented in this encounter Plan of Treatment Care Team Description Date Type Specialty Mayank Novoa DO [address] [facility] [address] [place] [address] [phone] 06/17/2019 Appointment Pain Medicine Vikas Ross MD [address] [facility] [address] [place] [address] [phone] 07/03/2019 Office Visit Cardiology documented as of this encounter Visit Diagnoses Not on filedocumented in this encounter
--- OUTSIDE RECORDS SUMMARY | 2019-06-07 16:04 | XMS REPORT | Encounter Summary ---
Author Author [facility] Organization [facility] Address Unknown Phone Unavailable Care Team Providers Care Manager Of Broadcast Content Name Role Phone Shannon Falk PCP Encounter Details Care Team Description Date Type Department Vikas Ross MD [address] [facility] [address] [place] [address] [phone] Specialty Pharmacy Refill Coordination 01/16/2019 Specialty [facility] [address] [place] [address] Social History Date Tobacco Use Types Packs/Day [...] as of this encounter Progress Notes * Blossom Calderon - 01/16/2019 10:35 AM FLAT LOCKER Specialty Pharmacy Refill Coordination Note Dalila Hameed is a 68 y.o. female contacted today regarding refills of her specialt y medication(s) Praluent Reviewed and verified with patient: Specialty medication(s) [...] Refills needed for supportive medications: not needed Pt called back regarding refill coordination. Refill is due 01/23. Requested 01/22 UPS-due to being out of town. Follow-up: 28 day(s) Blossom Calderon Specialty Spanish Translator LOCKER documented in this encounter Plan of Treatment Care Team Description Date Type Specialty Mayank Novoa DO [facility] [address] [place] [address] [phone] 06/17/2019 Appointment Pain Medicine Vikas Ross MD [address] [facility] [address] [place] [address] [phone] 07/03/2019 Office Visit Cardiology documented as of this encounter Visit Diagnoses Not on filedocumented in this encounter
--- OUTSIDE RECORDS SUMMARY | 2019-06-07 16:04 | XMS REPORT | Encounter Summary ---
Author Author [facility] Organization [facility] Address Unknown Phone Unavailable Care Team Providers Care Acetylene Cutter Name Role Phone Shannon Falk PCP Encounter Details Care Team Description Date Type Department Vikas Ross MD [address] [facility] [address] [place] [address] [phone] Specialty Pharmacy Refill Coordination 01/31/2019 Specialty [facility] [address] [place] [address] Social History Date Tobacco Use Types Packs/Day [...] encounter Progress Notes * Blossom Calderon - 01/31/2019 1:26 PM HOSTING ENGINEER Specialty Pharmacy Refill Coordination Note Dalila Hameed [...] for supportive medications: not needed Pt called to inform she will be leaving town for 3 weeks and requested an early fill. Pt's ins authorized a 1 time override to accommodate. She will leave end o f week 02/08. Refill dose is due 02/20/19. 02/06 QS CC Follow-up: 28 day(s) Blossom Calderon Specialty Poultry Offal Icer ING ENGINEER documented in this encounter Plan of Treatment Care Team Description Date Type Specialty Mayank Novoa DO [address] [facility] [address] [place] [address] [phone] 06/17/2019 Appointment Pain Medicine Vikas Ross MD [address] [facility] [address] [place] [address] [phone] 07/03/2019 Office Visit Cardiology documented as of this encounter Visit Diagnoses Not on filedocumented in this encounter
--- OUTSIDE RECORDS SUMMARY | 2019-06-07 16:04 | XMS REPORT | Encounter Summary ---
Author Author [facility] Organization [facility] Address Unknown Phone Unavailable Care Team Providers Care Forward Air Controller/Air Officer Name Role Phone Shannon Falk PCP Reason for Referral * MRI/CAT/PET Scan (Routine) Referred By Contact Referred To Contact Status Reason Specialty Diagnoses / Procedures Carey Holt APRN [address] , [facility] [address] [place] [address] [facility] [address] [place] [address] Closed Cardiology Diagnoses Familial hypercholesterolem ia Obesity (BMI 30.0-34.9) P rocedures CV CT Cardioscan Reason for Visit * Reason Comments Hypertension Hyperlipidemia Encounter Details Care Team Description Date Type Department Vikas Ross MD [address] [facility] [address] [place] [address] [phone] Carey Holt APRN [address] , [place] [address] [place] [address] [phone] Familial hypercholesterolemia (Primary D x); Essential hypertension; Obesity (BMI 30.0-34.9); Hyperglycemia; Encounter for long-term (current) use of other medications; Vitamin D deficiency 11/27/2018 Initial consult [facility] [address] [place] [address] Social History Date Tobacco Use Types Packs/Day [...] Signs Reading Time Taken Comments Vital Sign 139/91 11/27/2018 1:16 PM CDT Blood Pressure 65 11/27/2018 1:16 PM CDT Pulse - - Temperature - - Respiratory Rate - - Oxygen Saturation - - Inhaled Oxygen Concentration 84.8 kg (187 lb) 11/27/2018 1:16 PM CDT Weight 162.6 cm (5' 4") 11/27/2018 1:16 PM CDT Height 32.1 11/27/2018 1:16 PM CDT Body Mass Index documented in this encounter Patient Instructions * Patient Instructions* Carey Holt APRN - 11/27/2018 1:00 PM CDT LDL has substantially improved continue Praluent injections recheck in 4 months. Obtain cardio scan will call to set-up. Blood sugars optimal. Monitor blood pressure call if >140/90 consistently. Continue to decrease simple and processed carbohydrates and sugars. Aim to get the majority of your carbohydrates and sugars from vegetables and fruits. This w ill assist with maintaining a lower HgbA1c, fasting blood sugar, diabetes preven tion and weight loss. Aim to exercise 5 days a week for 30-45 minutes with a mixture of cardiovascular (walking, biking, swimming) and resistance training (light weights, resistance bands or your own body weight). This will help optimize your risk factors. Stabi lize or reduce blood sugar, lower LDL cholesterol and increase HDL cholesterol, and control weight. documented in this encounter Progress Notes * Carey Holt APRN - 11/27/2018 1:00 PM CDT [facility] Clinic Note Appointment Date: 11/27/2018 Shannon Falk MD [address] [facility] [id number] RE: Dalila Obrien : 1950 Visit provider: Carey Holt APRN Dear Shannon Falk MD, I had the pleasure of seeing Dalila Obrien in the office today. She is a 68 y.o. fe male and presents with the following chief complaints: Hypertension and Hyperlip idemia HPI: I saw Ms. Obrien for initial consultation in the [facility]. She has a family history with both her mother and father having extremely elevated janeth sterol. Her father had coronary disease in his 60s. She has familial hyperchol esterolemia. Her LDL was 302 in October of this year. She was initiated on P raluent that day, 150 mg subcutaneous injections. A recheck of her LDL today, a pproximately 1 month later, is 154, nearly a 50% reduction. She was unable to t olerate statins, as they caused severe myalgias, but she is tolerating the PCSK9 inhibitor without incidence. Her HDL is optimal at 58. Triglycerides nonfasti ng are 336. She does have a history of slightly elevated triglycerides in the 2 00s. Other history includes some venous insufficiency with lower extremity keturah a (she does follow in the vein clinic), rheumatoid arthritis, hypothyroidism, es sential hypertension and obesity with a BMI of 32.10. We discussed diet and exe rcise recommendations today to help improve her risk factors. She denies angina , dyspnea, orthopnea, PND, palpitations, syncope, swelling, dizziness or TIA. Delmy kilgore discussed also ruling out any perfusion abnormalities. We will obtain a CT Ca rdioScan to assess for coronary calcium. She will continue to follow with Dr. Honey forbes for further evaluation and recommendations. We will continue to follow delmy bautista her in the [facility] to optimize her risk factors. A 24-hour diet recall: Breakfast today was a doughnut. Lunch, cottage cheese o r tuna salad. Last night for dinner she had ribs. Typically, she does have a s tarch and protein. We did discuss reducing simple and processed carbohydrates a s much as possible and incorporating more whole foods, such as vegetables, fruit s, omega-3 oils, nuts with omega-3's, and lean protein such as chicken or fish. Patient Active Problem List Diagnosis SNOMED CT(R) Radicular leg pain RADICULAR PAIN RA (rheumatoid arthritis) (FORMERLY [facility]) RHEUMATOID ARTHRITIS Neuropathy NEUROPATHY Hypothyroidism HYPOTHYROIDISM Essential [...] Osteoarthritis HANDS, HIPS RA (rheumatoid arthritis) (FORMERLY [facility]) APPROX 10 YRS Radicular leg pain 05/25/2015 Rheumatoid arthritis of spine (FORMERLY [facility]) CERVICAL SPINE; HAS FULL ROM WITH NECK Sciatica DOWN LEFT LEG Urinary incontinence STRESS INCONTINENCE Past Surgical History: Procedure Laterality Date BUNIONECTOMY Right FRACTURE SURGERY Left CLAVICAL FX FUSION, SPINE, LUMBAR, INTERBODY, TRANSFORAMINAL APPROACH Left 07/28/2015 Procedure: L4-L5 FUSION TRANSFORAMINAL LUMBAR INTERBODY SPINE; Surgeon: uYe Abdi MD; [facility]; Service: Neurosurgery; Laterality: Le ft; HYSTERECTOMY MARTY FUNDOPLICATION ROTATOR CUFF REPAIR Right TONSILLECTOMY AND ADENOIDECTOMY VEIN LIGATION AND STRIPPING Left Final Medications: Current Outpatient Medications Medication Sig Dispense Refill alirocumab (PRALUENT) 150 mg/mL pen injection Inject 1 mL (150 mg total) und er the skin every 2 (two) weeks. 2 mL 11 alirocumab (PRALUENT) 150 mg/mL pen injection Inject 1 mL (150 mg total) und er the skin every 2 (two) weeks. 2 Syringe 0 celecoxib (CELEBREX) 200 MG capsule Take 200 mg by mouth daily. citalopram (CELEXA) 20 MG tablet Take by mouth every morning. ergocalciferol (VITAMIN D2) 50,000 unit capsule Take 50,000 Units by mouth w sheldon. gabapentin (NEURONTIN) 600 MG tablet Take 300 mg by mouth 2 (two) times a da y. HYDROcodone-acetaminophen (NORCO) 7.5-325 mg per tablet Take 1 tablet by aditya th every 6 (six) hours as needed for pain. levothyroxine (SYNTHROID, LEVOTHROID) 75 MCG tablet Take 75 mcg by mouth jeffy ly. metoprolol tartrate (LOPRESSOR) 25 MG tablet Take 25 mg by mouth daily. olmesartan (BENICAR) 40 MG tablet Take 40 mg by mouth daily. No current facility-administered medications for this visit. Allergies Allergen Reactions Ttakgmb-Wxv-Juw Reductase Inhibitors Myalgia Sulfa (Sulfonamide Antibiotics) Hives Remicade [Infliximab] Rash Family History Problem Relation Age of Onset Hyperlipidemia Mother Hyperlipidemia Father COPD Father Stroke Father Heart attack Father Heart attack Brother Social History: Social History Tobacco Use Smoking status: Never Smoker Smokeless tobacco: Never Used Substance Use Topics Alcohol use: Yes Comment: RARELY Drug use: No Review of Systems Constitution: Negative for fever, malaise/fatigue and night sweats. HENT: Negative for nosebleeds. Eyes: Negative for blurred vision. Cardiovascular: Negative for chest pain, irregular heartbeat and leg swelling. Respiratory: Negative for cough, shortness of breath, sleep disturbances due to breathing, snoring and wheezing. Endocrine: Negative for cold intolerance. Hematologic/Lymphatic: Does not bruise/bleed easily. Skin: Negative for rash. Musculoskeletal: Negative for joint pain, joint swelling, muscle cramps, muscle weakness and myalgias. Gastrointestinal: Negative for dysphagia, nausea and vomiting. Genitourinary: Negative for dysuria and hematuria. Neurological: Negative for excessive daytime sleepiness, light-headedness, loss of balance and numbness. Psychiatric/Behavioral: Negative for depression. Vital Signs 11/27/18 1316 BP: (!) 139/91 Pulse: 65 Weight: 84.8 kg (187 lb) Height: 1.626 m (5' 4") BMI: Body mass index is 32.1 kg/m. Waist circumference: 38 inches Physical Exam Constitutional: She appears well-developed and well-nourished. HENT: Head: Normocephalic. Eyes: Conjunctivae are normal. Neck: Normal range of motion. Cardiovascular: Normal rate and normal heart sounds. Pulmonary/Chest: Effort normal and breath sounds normal. Musculoskeletal: Normal range of motion. Neurological: She is alert. Skin: Skin is warm and dry. Psychiatric: She has a normal mood and affect. Her behavior is normal. Judgment and thought content normal. Vitals reviewed. Labs: Cholesterol Date Value 11/27/2018 280 mg/dL 10/31/2018 397 mg/dL 09/15/2017 222 HDL Cholesterol (mg/dL) Date Value 11/27/2018 58 10/31/2018 51 09/15/2017 53 Triglycerides (mg/dL) Date Value 11/27/2018 336 (A) 10/31/2018 220 (A) 09/15/2017 265 (A) LDL Cholesterol (mg/dL) Date Value 11/27/2018 154 10/31/2018 302 09/15/2017 117 Hemoglobin A1C (%) Date Value 11/27/2018 5.2 Alanine Aminotransferase Date Value Ref Range Status 09/29/2017 19 0 - 34 IU/L Final Comment: ALT reference range changed on 08-29-2017 Aspartate Aminotransferase Date Value Ref Range Status 09/29/2017 31 15 - 46 IU/L Final Glucose (mg/dL) Date Value 11/27/2018 95 10/31/2018 123 09/29/2017 125 (H) 09/29/2017 124 (H) Diet: Diet: Regular Caffeine: Yes Caffeine frequency: Daily Caffeine amount: 1 cup Caffeine type: Coffee Exercise: Level: Regular Encounter Diagnoses Name Primary? Familial hypercholesterolemia Yes Essential hypertension Obesity (BMI 30.0-34.9) Hyperglycemia Encounter for long-term (current) use of other medications Vitamin D deficiency Impression and Plan: 1. Familial hypercholesterolemia with LDLs in the 300s. Continue Praluent 150 mg subcutaneous injections twice monthly. Current LDL is better optimized at 15 4. We did discuss adding ezetimibe to continue to target LDL to goal, but she w ould like to continue on Praluent and discuss this at a later visit. She has cu rrently had 2 injections of Praluent. 2. We will screen for coronary calcium with a CT CardioScan, family history of coronary disease plus several risk factors, including familial hypercholesterole julia and obesity. 3. Obesity. BMI of 32.10, waist circumference of 38. I recommend continuing t o work on weight loss through dietary portion control, dietary choices and incre asing exercise. 4. She has a history of hyperglycemia. Today, her nonfasting sugar was optimal at 95. Her hemoglobin A1c today was also normal at 5.2%, demonstrating overall good control of blood sugars. Continue with diet modifications and exercise. 5. Essential hypertension, currently on olmesartan and metoprolol. Blood press ure today was high at 139/91. I have asked her to monitor blood pressures and c all if it is consistently greater than 140/90. 6. Vitamin D deficiency. Recently, her vitamin D level was found to be 23. Gunjan kilgore is on high-dose vitamin D2 therapy. Once she completes this, I recommend manolo min D3 5000 international units daily. 7. Exercise. I recommend 30-45 minutes of cardiovascular exercising 5 days a w [place] and adding in some resistance training to promote reduction of osteoporosis, osteopenia and to help metabolically with triglyceride reduction. 8. Hypothyroidism. She is currently on Synthroid, managed through her primary care. Thank you for allowing me to participate in Dalila Obrien's care. If I can be of a ny further assistance, please do not hesitate to contact me. Sincerely, Carey Holt APRN /brady documented in this encounter Plan of Treatment Care Team Description Date Type Specialty Mayank Novoa DO [address] [facility] [address] [place] [address] [phone] 06/17/2019 Appointment Pain Medicine Vikas Ross MD [address] [facility] [address] [place] [address] [phone] 07/03/2019 Office Visit Cardiology documented as of this encounter Procedures Comments Procedure Name Priority Date/Time Associated Diag nosis POCT LIPID PANEL Routine 11/27/2018 Familial 1:36 PM CDT hypercholesterolemia Encounter for long-term (current) use of other medications Hyperglycemia POCT GLYCOSYLATED Routine 11/27/2018 Encounter fo r long-term HEMOGLOBIN (HGB A1C) 1:18 PM CDT (current) use of other medications Hyperglycemia documented in this encounter Results * CV CT Cardioscan (03/01/2019 1:46 PM BIRD TENDER) Calcium Score 1,020.1 [facility] Specimen Narrative Performed At [facility] NAME: DALILA OBRIEN DOB: [id number] GENDER: f MRN: NATHANAEL NUM: [id number] TEST: Coronary Calcium Score TEST DATE: TEST LOCATION: [facility] INPATIENT: INDICATION FOR TEST: Hypertension, Hy perlipidemia, [...] artery, a calcium score was computed using [id number] Digital volumetric cardiac scoring software. Such deposits are [...] The total Agatston score of 1020.1 rank aaron OBRIEN within the Higher Risk Category for [...] further information. Luis Angel Myers MD [address] [facility], [address] [place] [address] PROVIDER APPROVAL DATETIME: 2019-02-20 0 16:12:24.0 Procedure Note Interface, External Ris In - 03/04/2019 7:17 AM BIRD TENDER NAME: DALILA OBRIEN : [id number] GENDER: f MRN: NATHANAEL NUM: [id number] TEST: Coronary Calcium Score TEST DATE: TEST LOCATION: [facility] INPATIENT: INDICATION FOR TEST: Hypertension, Hyperlipidemia, Positive [...] The total Agatston score of 1020.1 ranks DALILA OBRIEN within the Higher Risk Category for [...] further information. Luis Angel Myers MD [address] , [address] [place] [address] PROVIDER APPROVAL DATETIME: 2019-03-01 16:12:24.0 Performing Organization Address City/State/Zipcode Ph one Number [facility] * POCT Lipid Panel with Glucose - [facility] (11/27/2018 1:36 PM CDT) Cholesterol 280 mg/dL HDL Cholesterol 58 35 - 70 mg/dL Triglycerides 336 (A) 40 - 160 mg/dL LDL Cholesterol 154 mg/dL Non-HDL 222 Cholesterol Cholesterol/HDL 4.8 Ratio Glucose 95 mg/dL Specimen Blood * POCT glycosylated hemoglobin (Hb A1C) (11/27/2018 1:18 PM CDT) Hemoglobin A1C 5.2 % Specimen Blood documented in this encounter Visit Diagnoses Diagnosis Familial hypercholesterolemia Essential hypertension Unspecified essential hypertension Obesity (BMI 30.0-34.9) Hyperglycemia Other abnormal glucose Encounter for long-term (current) use o f other medications Vitamin D deficiency documented in this encounter
--- OUTSIDE RECORDS SUMMARY | 2019-06-07 16:04 | XMS REPORT | Encounter Summary ---
Author Author [facility] Organization [facility] Address Unknown Phone Unavailable Care Team Providers Care Circus Hand Name Role Phone Shannon Falk PCP Reason for Visit * Reason Comments Leg Cramping Leg pain Encounter Details Care Team Description Date Type Department Pamela Navarro, CLAY CASTER [address] [facility] [address] [place], [place] [id number] Varicose veins of leg with pain, irene al (Primary Dx); Deep venous insufficiency 01/07/2019 [facility] [address] [place] [address] Social History Date Tobacco Use Types Packs/Day [...] Signs Reading Time Taken Comments Vital Sign 132/79 01/07/2019 11:47 AM CHARGE AIDE Blood Pressure 67 01/07/2019 11:47 AM CHARGE AIDE Pulse - - Temperature - - Respiratory [...] of this encounter Progress Notes * Pamela Navarro, ROSANNE - 01/07/2019 11:50 AM CHARGE AIDE [facility] Appointment Date: 01/07/2019 Shannon Falk MD [address] [facility] [id number] RE: Dalila Hameed : 1950 Visit provider: Pamela Navarro RN, TIPPLE ENGINEER-BC Dear Shannon Falk MD, I had the pleasure of seeing Dalila Hameed in the office today. She is a 68 y.o. fe male and presents with the following chief complaints: Leg Cramping and Leg pain HPI: Ms. Hameed returns to the vein clinic for reevaluation after her initial office vi sit in October,. At that time, reporting bilateral aching, cramping ongo ing for years. Treatment in the form of endovenous laser ablation was advised, however, she proceeded with a right knee replacement in February 2018, since that became more progressive. She has a history of vein stripping in the left leg in approximately 2008, also with hypertension and hyperlipidemia. She has left f ootdrop prior to her L4/L5 fusion in 2016, which has recovered. 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 She has no family history of venous insufficiency, no prior DVT or injury to her legs other than her knee replacemen t. Vein mapping today shows an insufficient left anterolateral vein, insufficient l eft greater saphenous vein in the proximal half as well as tributaries in the mi d third portion of the leg as well as the lateral thigh where she has localized discomfort. Right anterior lateral vein is insufficient, which extends to the a nkle. The distal half of Giacomini vein was insufficient. She has insufficienc y in the right superficial femoral and popliteal veins with augmentation. No DV T is noted. Vein Medical History Can you stand for 30 minutes without assistance?: Yes Can you climb three stairs (using hand rails) without assistance?: Yes Have you fallen in the last six months?: No Have you ever had an ankle/leg ulcer?: No Have you ever been treated in Wound Care?: No Do you have vaginal varicosities?: No Leg Symptoms Aching/Pain in legs: Bilateral Fatigue/Tiredness: Bilateral Leg cramping: Bilateral Leg restlessness: Bilateral Throbbing: Bilateral Swelling: Bilateral Do your symptoms worsen with activity?: Bilateral Do your symptoms wake you at night?: Bilateral Which leg is more symptomatic?: Both equally symptomatic How long have you experienced the symptoms marked above?: years How do your symptoms interfere with performing daily activities?: yes walking an d sittng Conservative Treatment What pain medications have you used?: n/a Other conservative treatments?: Exercise, Leg elevation(walk and yes while watch ing tv) Compression Stockings Are you currently wearing compression stockings?: Yes(somtimes) When did you begin wearing compression stockings?: 1 year Do you wear compression stockings daily?: No Which type of compression hose are you wearing?: Thigh High Patient Active Problem List Diagnosis SNOMED CT(R) Radicular leg pain RADICULAR PAIN RA (rheumatoid arthritis) ([facility]) RHEUMATOID ARTHRITIS Neuropathy NEUROPATHY Hypothyroidism HYPOTHYROIDISM Essential hypertension ESSENTIAL HYPERTENSION Mixed hyperlipidemia MIXED HYPERLIPIDEMIA Obesity (BMI 30.0-34.9) OBESE CLASS I Foot drop, left LEFT FOOT DROP Edema of lower extremity EDEMA OF LOWER EXTREMITY Varicose veins of leg with pain, bilateral VARICOSE VEINS OF LOWER EXTREMITY Deep venous insufficiency PERIPHERAL VENOUS INSUFFICIENCY Past Medical History: Diagnosis Date Anesthesia complication [...] 30.0-34.9) Osteoarthritis HANDS, HIPS RA (rheumatoid arthritis) ([facility]) APPROX 10 YRS Radicular leg pain 05/25/2015 Rheumatoid arthritis of spine ([facility]) CERVICAL SPINE; HAS FULL ROM WITH NECK Sciatica DOWN LEFT LEG Urinary incontinence STRESS INCONTINENCE Past Surgical History: Procedure Laterality Date BUNIONECTOMY Right FRACTURE SURGERY Left CLAVICAL FX FUSION, SPINE, LUMBAR, INTERBODY, TRANSFORAMINAL APPROACH Left 07/28/2015 Procedure: L4-L5 FUSION TRANSFORAMINAL LUMBAR INTERBODY SPINE; Surgeon: Yue Abdi MD; Location: [facility]; Service: Neurosurgery; Laterality: Le ft; HYSTERECTOMY MARTY FUNDOPLICATION ROTATOR CUFF REPAIR Right TONSILLECTOMY AND ADENOIDECTOMY VEIN LIGATION AND STRIPPING Left Final Medications: Current Outpatient Medications Medication Sig Dispense Refill alirocumab (PRALUENT) 150 mg/mL pen injection Inject 1 mL (150 mg total) und er the skin every 2 (two) weeks. 2 mL 11 celecoxib (CELEBREX) 200 MG capsule Take 200 mg by mouth daily. citalopram (CELEXA) 20 MG tablet Take by mouth every morning. diclofenac (VOLTAREN) 1 % gel Apply 2 g topically 4 (four) times a day as ne eded. 2 Tube 5 ergocalciferol (VITAMIN D2) 50,000 unit capsule Take 50,000 Units by mouth w sheldon. gabapentin (NEURONTIN) 300 MG capsule 3 (three) times a day. 1 HYDROcodone-acetaminophen (NORCO) 7.5-325 mg per tablet Take [...] medications for this encounter. Allergies Allergen Reactions Pbleaof-Uwd-Abu Reductase Inhibitors Myalgia Sulfa (Sulfonamide Antibiotics) Hives [...] Systems Cardiovascular: Positive for leg swelling. Skin: Positive for dry skin and itching. Negative for color change, poor wound h ealing and rash. Musculoskeletal: Positive for muscle cramps and muscle weakness. Negative for sid int pain and joint swelling. Vital Signs 01/07/19 1147 BP: 132/79 Pulse: 67 BMI: There is no height or weight on file to calculate BMI. Physical Exam Constitutional: Patient is oriented to person, place, and time. Pt appears well- developed and well-nourished. Normal calf muscle pump. HENT: Head: Normocephalic and atraumatic. Eyes: Conjunctivae are normal. Neck: Normal range of motion. Neck supple. Cardiovascular: Normal rate and regular rhythm. Patient exhibits no edema. No murmur heard. Pulses: Radial pulses are 2+ on the right side, and 2+ on the left side. Dorsalis pedis pulses are 2+ on the right side, and 2+ on the left side. Pulmonary/Chest: Effort normal and breath sounds normal. Musculoskeletal: BREWER. Neurological: Patient is alert and oriented to person, place, and time. Skin: Patient is warm and dry. No hyperpigmentation, no atrophie ger. Medium vein disease noted L lateral k nee. Superficial 3-5mm scab at anterior and posterior L mid roberson. No palpable v aricose veins noted. Psychiatric: Patient has a normal mood and affect. Vitals reviewed. SNOMED CT(R) 1. Varicose veins of leg with pain, bilateral VARICOSE VEINS OF LOWER EXTREMITY 2. Deep venous insufficiency PERIPHERAL VENOUS INSUFFICIENCY Plan: 1. Varicose veins of bilateral lower extremities with pain: She has more prono unced symptoms in the left leg that correspond to our mapping, which shows more significant large vein disease. I suspect her symptoms are coming from her vein s. She has radicular pain from her back; however, that is a different sensation for her. We will continue conservative measures with the use of exercise, leg elevation, anti-inflammatory medications, and compression stockings. She has no t worn compression since early 2017. She still has a pair at home, which she wi ll institute. I asked her to follow up in 3 months to reevaluate her response. Her disease is amenable with endovenous laser ablation x2 to the left leg, and ultrasound-guid ed injections thereafter. Since her left leg is more symptomatic, we would focu s on this first. Her right leg would require endovenous laser ablation and inje ctions as well. 2. Deep venous insufficiency: Due to presence of deep vein insufficiency as de tailed above, we would recommend lifelong use of compression stockings. Printed information was provided as well as discussion of venous insufficiency, its pathophysiology and treatments. Thank you for allowing me to participate in Dalila Hameed's care. If I can be of a ny further assistance, please do not hesitate to contact me. Sincerely, Pamela Navarro RN, TIPPLE ENGINEER- GE AIDE documented in this encounter Plan of Treatment Care Team Description Date Type Specialty Mayank Novoa, [address] [facility] [address] [place] [address] [phone] 06/17/2019 Appointment Pain Medicine Vikas Ross MD [address] [facility] [address] [place] [address] [phone] 07/03/2019 Office Visit Cardiology documented as of this encounter Visit Diagnoses Diagnosis Varicose veins of leg with pain, bilate ral Deep venous insufficiency documented in this encounter
--- OUTSIDE RECORDS SUMMARY | 2019-06-07 16:05 | XMS REPORT | Encounter Summary ---
Author Author [facility] Address Unknown Phone Unavailable Care Team Providers Care Cash Posting Clerk Name Role Phone Shannon Falk PCP Reason for Referral * Consultation (Routine) Referred By Contact Referred To Contact Status Reason Specialty Diagnoses / Procedures Vikas Ross MD [address] [place] [address] [facility] [address] [facility] [address] [place] [address] Closed Service Not Cardiology Diagnoses Available In-House Mixed hyperlipidemia * Diagnostic Imaging (Routine) Referred By Contact Referred To Contact Status Reason Specialty Diagnoses / Procedures Vikas Ross MD [address] [place] [address] [facility] [address] [facility], [address] [place] [address] Closed Radiology Diagnoses Edema of lower extremity P rocedures US Vein Mapping w Duplex lower extremity bilat complete * Consultation (Routine) Referred By Contact Referred To Contact Status Reason Specialty Diagnoses / Procedures Vikas Ross MD [address] [place] [address] [facility] [address] [place] [address] Closed Cardiology Diagnoses Edema of lower extremity * Diagnostic Imaging (Routine) Referred By Contact Referred To Contact Status Reason Specialty Diagnoses / Procedures Vikas Ross MD [address] [place] [address] Closed Diagnoses Essential hypertension Mixed hyperlipidemia Edema of lower extremity P rocedures Electrocardiogram (ECG) Reason for Visit * Reason Comments bilateral lower extremity edema essential hypertension Encounter Details Care Team Description Date Type Department Vikas Ross MD [address] [place] [address] [phone] Essential hypertension (Primary Dx); Mixed hyperlipidemia; Edema of lower extremity 10/31/2018 Office Visit [facility] [address] [facility] [address] [place] [address] Social History Date Tobacco Use Types Packs/Day [...] Signs Reading Time Taken Comments Vital Sign 152/92 10/31/2018 10:02 AM CDT Blood Pressure 59 10/31/2018 10:02 AM CDT right bp reg Pulse - - Temperature - - Respiratory Rate - - Oxygen Saturation - - Inhaled Oxygen Concentration 85.1 kg (187 lb 9.6 oz) 10/31/2018 10:02 AM CDT Weight 162.6 cm (5' 4") 10/31/2018 10:02 AM CDT Height 32.2 10/31/2018 10:02 AM CDT Body Mass Index documented in this encounter Patient Instructions * Patient Instructions* Luisa Shelley, BALDO - 10/31/2018 10:40 AM CDT Medication Instructions: start Praluent 150mg twice a week. A referral has been placed to: vein clinic and [facility] Follow up with MD Dr. Vikas Ross in 6 months. Please call the Nurse Line at [phone] ([facility] Nurse Team). with any questions or concerns. For medication refill needs, please first contact your pharmacy. For any [facility] scheduling questions, please stephen andi . At [facility], high quality patient care is our top priority. To ensure our cardiovascular standards are continuously met, you may receive a survey via [place] or text message, and we ask that you please take the time to fill it out. We strive to ensure you are very satisfied with every visit. Thank you in advance for taking the time to fill this out. It was a pleasure to meet you. Luisa documented in this encounter Progress Notes * Vikas Ross MD - 10/31/2018 10:40 AM CDT [facility] [place] Appointment Date: 10/31/2018 Shannon Falk MD [address] [facility] [address] RE: Dalila Obrien : 1950 Visit provider: Vikas oRss MD Dear Shannon Falk MD, I had the pleasure of seeing Dalila Obrien in the office today. She is a(n) 68 y.o. female and presents with the following chief complaint(s): bilateral lower extr emity edema and essential hypertension HPI: Ms. Dalila Obrien is being seen in cardiology clinic today for followup of her hype rcholesterolemia. As you are aware, she clearly has familial hypercholesterolemia. Her LDL today in my office is 302 mg/dL, total cholesterol 397, HDL 51, triglyceride level of 220, with a non-HDL cholesterol 346. She has tried rosuvastatin, atorvastatin, and simvastatin and has not tolerated any of them due to myalgia or ineffectiven ess in lowering her cholesterol. I do think she is an ideal candidate for PCSK9 inhibitors as they were initially designed for patients with familial hyperchol esterolemia. We will inject her today with whichever drug her insurance company will cover. I will then have her follow up in our [facility] for f ollowup of her cholesterol levels. We may have to add Zetia if she can tolerate it. I think we can get a 60% reduction in her LDL cholesterol, which would megha ng her down to approximately below 150. We then decide whether we should add Ze tia or not. Her blood pressure is elevated in the office today at 158/87, but she has not ta trixie her antihypertensive medications this morning. She tells me generally her b lood pressure is less than 130/80. I, therefore, recommend continuation of her chlorthalidone, Aldactone, and losartan. She is bothered still by nocturnal cramping. She has bilateral lower extremity venous insufficiency by vein mapping a year ago. She declined treatment at that time due to the fact she had to have a knee replacement, which went well, and n ow she is ready for treatment in our vein clinic. I will therefore refer her ba ck for repeat vein mapping and consultation with one of our vein clinic provider s. She voiced understanding of the plan and wished to proceed as outlined above . Patient Active Problem List Diagnosis SNOMED CT(R) Radicular leg pain RADICULAR PAIN RA (rheumatoid arthritis) ([facility]) RHEUMATOID ARTHRITIS Neuropathy NEUROPATHY Hypothyroidism HYPOTHYROIDISM [...] HANDS, HIPS RA (rheumatoid arthritis) ([facility]) APPROX 10 YRS Radicular leg pain 05/25/2015 Rheumatoid arthritis of spine ([facility]) CERVICAL SPINE; HAS FULL ROM WITH NECK Sciatica DOWN LEFT LEG Urinary incontinence STRESS INCONTINENCE Past Surgical History: Procedure Laterality Date BUNIONECTOMY Right FRACTURE SURGERY Left CLAVICAL FX FUSION, SPINE, LUMBAR, INTERBODY, TRANSFORAMINAL APPROACH Left 07/28/2015 Procedure: L4-L5 FUSION TRANSFORAMINAL LUMBAR INTERBODY SPINE; Surgeon: Yue Abdi MD; Location: [facility]; Service: Neurosurgery; Laterality: Le ft; HYSTERECTOMY MARTY [...] tablet Take 40 mg by mouth daily. alirocumab (PRALUENT) 150 mg/mL pen injection Inject 1 mL (150 mg total) und er the skin every 2 (two) weeks. 2 mL 11 alirocumab (PRALUENT) 150 mg/mL pen injection Inject 1 mL (150 mg total) und er the skin every 2 (two) weeks. 2 Syringe 0 No current facility-administered medications for this visit. Allergies Allergen Reactions Sulfa (Sulfonamide Antibiotics) Hives Remicade [Infliximab] Rash Family History Problem Relation Age of Onset Hyperlipidemia Mother Hyperlipidemia Father COPD Father Stroke Father Heart attack Father Heart attack Brother Social History: Social History Tobacco Use Smoking status: Never Smoker Smokeless tobacco: Never Used Substance Use Topics Alcohol use: Yes Comment: RARELY Drug use: No Review of Systems Constitution: Positive for malaise/fatigue. Negative for fever and night sweats. HENT: Negative for nosebleeds. Eyes: Negative for discharge. Cardiovascular: Positive for chest pain, claudication, dyspnea on exertion and l eg swelling. Negative for cyanosis, irregular heartbeat, near-syncope, palpitati ons and syncope. Respiratory: Positive for shortness of breath and snoring. Negative for cough, h emoptysis, sleep disturbances due to breathing and wheezing. Endocrine: Positive for cold intolerance. Negative for polydipsia. Hematologic/Lymphatic: Bruises/bleeds easily. Skin: Negative for poor wound healing and rash. Musculoskeletal: Positive for arthritis, joint pain, muscle weakness and myalgia s. Gastrointestinal: Positive for dysphagia. Negative for constipation, diarrhea, h ematochezia, nausea and vomiting. Genitourinary: Negative for hematuria. Neurological: Positive for disturbances in coordination, excessive daytime sleep iness, dizziness and loss of balance. Negative for brief paralysis, focal weakne ss, light-headedness, numbness and weakness. All other systems reviewed and are negative. Vital Signs 10/31/18 0958 10/31/18 0959 10/31/18 1001 10/31/18 1002 BP: (!) 160/108 (!) 157/102 (!) 158/87 (!) 152/92 Pulse: (!) 56 59 59 59 Weight: 85.1 kg (187 lb 9.6 oz) 85.1 kg (187 lb 9.6 oz) 85.1 kg (187 lb 9.6 oz) 85.1 kg (187 lb 9.6 oz) Height: 1.626 m (5' 4") 1.626 m (5' 4") 1.626 m (5' 4") 1.626 m (5' 4") BMI: Body mass index is 32.2 kg/m. Physical Exam Constitutional: No distress. Obese white female Eyes: No scleral icterus. Neck: No JVD present. Cardiovascular: Normal rate, regular rhythm, normal heart sounds and intact dist al pulses. Exam reveals no gallop and no friction rub. No murmur heard. Pulmonary/Chest: Effort normal and breath sounds normal. She has no wheezes. She has no rales. Abdominal: There is no tenderness. There is no guarding. Musculoskeletal: She exhibits no edema. Neurological: She is alert. Skin: Skin is warm. Capillary refill takes less than 2 seconds. Multiple spider and reticular veins Psychiatric: She has a normal mood and affect. Her behavior is normal. Judgment and thought content normal. Vitals reviewed. Cholesterol Date Value 10/31/2018 397 mg/dL 09/15/2017 222 HDL Cholesterol (mg/dL) Date Value 10/31/2018 51 09/15/2017 53 Triglycerides (mg/dL) Date Value 10/31/2018 220 (A) 09/15/2017 265 (A) LDL Cholesterol Date/Time Value Ref Range Status 10/31/2018 09:55 AM 302 mg/dL Final 09/15/2017 10:16 AM 117 mg/dL Final EKG: Sinus rhythm Encounter Diagnoses Name Primary? Essential hypertension Yes Mixed hyperlipidemia Edema of lower extremity Impression: 1. Familial hypercholesterolemia. 2. Statin intolerance due to lifestyle-limiting myalgia. 3. Essential hypertension, controlled at home. 4. Bilateral lower extremity symptomatic venous insufficiency. Plan: 1. Again, I have referred back to the vein clinic for repeat vein mapping and t reatment in our vein clinic. I think she would be a good candidate for treatmen t given her severe nocturnal cramps and occasional edema. She has CEAP class II I symptoms. 2. She clearly has familial hypercholesterolemia given her off treatment LDL of 302. Again, she has been intolerant to statins as outlined above. I think she is an ideal candidate for PCSK9 inhibitors and we will inject her first dose tod ay and she will follow up in our [facility] for maintenance evaluati on. 3. We will determine whether she needs Zetia added in the near future given her likely LDL that remains at 150 most likely with PCSK9 inhibitors. 4. She will follow up with me in 6 months' time. She will follow up with our [facility] and vein clinic as scheduled. Treatment goals, progress and next steps, as above, were discussed and mutually agreed upon with the patient/family. Thank you for allowing me to participate in Dalila Obrien's care. If I can be of a ny further assistance, please do not hesitate to contact me. Sincerely, Vikas Ross MD /bejeremías documented in this encounter Miscellaneous Notes * Addendum Note - Luisa Shelley RN - 10/31/2018 10:40 AM CDT Addended by: LUISA SHELLEY on: 10/31/2018 10:47 AM Modules accepted: Orders documented in this encounter Plan of Treatment Care Team Description Date Type Specialty Mayank Novoa DO [facility] [address] [address] [phone] 06/17/2019 Appointment Pain Medicine Vikas Ross MD [address] [place] [address] [phone] 07/03/2019 Office Visit Cardiology Order Schedule Name Type Priority Associated Diag noses Expected: 01/30/2019 (Approximate), Expi res: 11/01/2019 Lipid Panel Lab Routine Mixed hyperlipi demia Order Schedule Name Type Priority Associated Diag noses Expected: 11/01/2018 (Approximate), Expi res: 11/01/2019 Amb Referral to Vein Outpatient Routine Edema of lower extremity Clinic Referral Expected: 11/30/2018 (Approximate), Expi res: 05/01/2019 Ambulatory Referral To Outpatient Routine Mixed h yperlipidemia [facility] Referral documented as of this encounter Procedures Comments Procedure Name Priority Date/Time Associated Diag nosis ECG Routine 10/31/2018 Essential hyper tension 10:03 AM CDT Mixed hyperlipidemia Edema of lower extremity POCT LIPID PANEL Routine 10/31/2018 Essential hyp ertension 9:55 AM CDT Mixed hyperlipidemia Edema of lower extremity documented in this encounter Results * US Vein Mapping w Duplex lower extremity bilat complete (01/07/2019 11:59 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) Specimen Impressions Performed At FINDINGS/IMPRESSION: KALIE RIGHT [...] OBRIEN Sex#: F #: [id number] Abdirizak# : [id number] Location: [facility] US Procedure Requested: [id number] US VEIN MAPPING W DUPLEX LOWER EXTREMITY BILAT COMPLETE Reason for Exam: Edema of lower extre mity Exam Ordered: 01/07/2019 1 037 Exam Date/Time: 01/07/2019 11 59 Begin exam date/time: 01/07/2019 10 49 READING SITE: [facility] VEIN MAPPING W DUPLEX LOWER EXTREMIT [...] Rad Results In - 01/09/2019 2:08 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 Performing Organization Address City/State/[facility] JADE * Electrocardiogram (ECG) (10/31/2018 10:03 AM CDT) QRSd 94 [facility] QT 424 [facility] QTC 410 [facility] ECGHR 56 [facility] ECGPR 180 [facility] Specimen Narrative Performed At [facility] [place] Test Date: 2018-10-31 Pat Name: DALILA THOMPSONB Department: [facility] Room: Gender: Female Bridge Builder: [id number] : 1950 Requested By: VIKAS ROSS Order Number: [id number] Reading MD: Vikas Ross Measurements Intervals [place] Rate: 56 P: 31 NC: 180 QRS: 56 QRSD: 94 T: 51 QT: 424 QTc: 410 Interpretive Statements SINUS RHYTHM Electronically Signed On 11-02-2018 7:41 :43 CDT by Vikas Ross Procedure Note Interface, External Ris In - 11/02/2018 7:41 AM CDT [facility] - [place] Test Date: 2018-10-31 Pat Name: DALILA OBRIEN Department: [facility] Room: Gender: Female Bridge Builder: [id number] : 1950 Requested By: VIKAS ROSS Order Number: [id number] Reading MD: Vikas Ross Measurements Intervals [place] Rate: 56 P: 31 NC: 180 QRS: 56 QRSD: 94 T: 51 QT: 424 QTc: 410 Interpretive Statements SINUS RHYTHM Electronically Signed On 11-02-2018 7:41:43 CDT by Vikas Ross Performing Organization Address City/State/Zipcode Ph one Number [facility] * POCT Lipid Panel with Glucose - [facility] (10/31/2018 9:55 AM CDT) Cholesterol 397 mg/dL HDL Cholesterol 51 35 - 70 mg/dL Triglycerides 220 (A) 40 - 160 mg/dL LDL Cholesterol 302 mg/dL Non-HDL 346 Cholesterol Cholesterol/HDL 6.0 Ratio Glucose 123 mg/dL Specimen Blood documented in this encounter Visit Diagnoses Diagnosis Essential hypertension Unspecified essential hypertension Mixed hyperlipidemia Edema of lower extremity documented in this encounter
--- OUTSIDE RECORDS SUMMARY | 2019-06-07 16:05 | XMS REPORT | Encounter Summary ---
Author Author [facility] Organization [facility] Address Unknown Phone Unavailable Care Team Providers Care Telecommunications Officer Name Role Phone Deya Shannon PCP Encounter Details Care Team Description Date Type Department Vikas Ross MD [address] [facility] [address] [place] [address] [phone] Specialty Pharmacy Refill Coordination 11/20/2018 Specialty [facility] [address] [place] [address] Social History Date Tobacco Use Types Packs/Day [...] encounter Progress Notes * Blossom Calderon - 11/20/2018 9:53 AM CDT Specialty Pharmacy Refill Coordination Note Dalila Hameed is a 68 y.o. female contacted today regarding refills of her specialt y medication(s) Praluent Reviewed and verified with patient: Specialty medication(s) and dose(s) confirmed: yes Changes to medications: no Changes to insurance: no Medication Adherence Patient reported X missed doses in the last month: 0 Any gaps in refill history greater than 2 weeks in the last 3 months: no Demonstrates understanding of importance of adherence: yes Informant: patient Reliability of informant: reliable Provider-estimated medication adherence level: 90-100% Reasons for non-adherence: no problems identified Adherence tools used: calendar Confirmed plan for next specialty medication refill: delivery by pharmacy Refills needed for supportive medications: not needed Pt returned call regarding refill coordination. Pt stated she last dose 11/13; re fill due 11/27 11/26 [facility] OP Follow-up: 28 day(s) Blossom Calderon Specialty Budget Director documented in this encounter Plan of Treatment Care Team Description Date Type Specialty Mayank Novoa DO [address] [facility] [address] [place] [address] [phone] 06/17/2019 Appointment Pain Medicine Vikas Ross MD [address] [facility] [address] [place] [address] [phone] 07/03/2019 Office Visit Cardiology documented as of this encounter Visit Diagnoses Not on filedocumented in this encounter
--- OUTSIDE RECORDS SUMMARY | 2019-06-07 16:05 | XMS REPORT | Encounter Summary ---
Author Author [facility] Organization [facility] Address Unknown Phone Unavailable Care Team Providers Care Insurance Territory Manager Name Role Phone [place], Shannon PCP Encounter Details Care Team Description Date Type Department Vikas Ross MD [address] [facility] [address] [place] [address] [phone] 11/08/2017 Documentation [facility] [address] [facility] [address] [place] [address] Social History Date Tobacco Use Types Packs/Day Years Used Never Smoker Smokeless Tobacco: Never Used Drinks/Week oz/Week Comments Alcohol Use RARELY Yes Sex Assigned at Date Recorded Female Industry Job Start Date Occupation Not on file Not on file Not on file Travel End Travel History Travel Start No recent travel history available. documented as of this encounter Plan of Treatment Care Team Description Date Type Specialty Mayank Novoa DO [address] [facility] [address] [place] [address] [phone] 06/17/2019 Appointment Pain Medicine Vikas Ross MD [address] [facility] [address] [place] [address] [phone] 07/03/2019 Office Visit Cardiology documented as of this encounter Visit Diagnoses Not on filedocumented in this encounter
--- OUTSIDE RECORDS SUMMARY | 2019-06-07 16:05 | XMS REPORT | Encounter Summary ---
Author Author [facility] Organization [facility] Address Unknown Phone Unavailable Care Team Providers Care Track Man Name Role Phone Shannon Falk PCP Reason for Visit * HH Auth Cert Referred By Contact Referred To Contact Status Reason Specialty Diagnoses / Procedures Encounter Details Care Team Description Date Type Department Jenny Covarrubias, PT PT HOME VISIT 03/09/2018 Home Care Visit [facility] [address] [address] Social History Date Tobacco Use Types Packs/Day [...] Signs Reading Time Taken Comments Vital Sign 124/64 03/09/2018 9:47 AM INTAKE COORDINATOR Blood Pressure 78 03/09/2018 9:47 AM INTAKE COORDINATOR Pulse 36.7 C (98.1 F) 03/09/2018 9:47 AM INTAKE COORDINATOR Temperature - - Respiratory Rate 96% 03/09/2018 9:47 AM INTAKE COORDINATOR Oxygen Saturation - - Inhaled Oxygen Concentration - - Weight - - Height - - Body Mass Index documented in this encounter Plan of Treatment Care Team Description Date Type Specialty Mayank Novoa DO [address] [address] [phone] 06/17/2019 Appointment Pain Medicine Vikas Ross MD [address] [place] [address] [phone] 07/03/2019 Office Visit Cardiology documented as of this encounter Visit Diagnoses Not on filedocumented in this encounter Home Health Visit - Care Plan Visit Type - PT Home Visit Discipline - Physical Therapy Status Goals Interventions Problem Descriptio Start Date n Resolved on 03/09/2018 - 1 problem intervention scheduled/documented in this visit Advance Directives Advance 03/03/2018 Disciplines: Directives Assisted, Physical Therapy, Occupational Therapy, Speech Language Pathology, Home Health Aide, Medical Social Work, Music Therapist, Dietitian, Nurse Practioner Active - 1 problem intervention scheduled/documented in this visit Decreased Gait Skills 03/03/2018 Disciplines: Physical Therapy Active - 1 problem intervention scheduled/documented in this visit Decreased Knowledge Of Absence of 03/03/2018 Home Exercise Program or lack of Disciplines: understand Physical Therapy ing of home exercise program. Active - 1 problem intervention scheduled/documented in this visit Impaired Tissue Integrity 03/03/2018 Disciplines: Physical Therapy Active - 2 problem interventions scheduled/documented in this visit Lower Extremity/Trunk Impairment Disciplines: Physical Therapy Active - 1 problem intervention scheduled/documented in this visit Medication Management Management 03/03/2018 Disciplines: and Assisted, Physical Education Therapy, Occupational of All Therapy, Speech Language Home Pathology, Home Health [employer], Medical Social s Work, Music Therapist, Including Dietitian, Nurse Prescripti Practioner on and OTC. Active - 2 problem interventions scheduled/documented in this visit Pain Management Patient 03/03/2018 Disciplines: has pain. Assisted, Physical Therapy, Occupational Therapy, Speech Language Pathology, Home Health Aide, Medical Social Work, Music Therapist, Dietitian, Nurse Practioner Active - 1 problem intervention scheduled/documented in this visit Patient Strengths, Goals, Strengths, and Care Preferences Goals, Disciplines: Care Assisted, Physical Preference Therapy, Occupational s Therapy, Speech Language Pathology, Home Health Aide, Medical Social Work, Music Therapist, Dietitian, Nurse Practioner Variance Visit Notes Intervention Associated Status Problem/Go al Advance Directives should be requested up to 3 times. Once these are either obtained or requested 3 times, this problem/intervention can be resolved. Also resolve it patient does not have advance directives or refuses/reports inability to give to agency. Advance Directives status: N/A - patient does not have advance directives. Advance Directives Problem: Completed Requested/Obtained Advance Directives Patient instructed in and performed ambulation 150' distance using front wheel walker with stand by assistance and verbal and visual cues for heel strike, R hip in neutral rotation at mid stance and swing phase. Patient's able to perform progressive reciprocal pattern this date with reduced antalgia. Swing phase R LE improved fluidity and mid stance R LE more neutral but knee remains flexed thru cycle. PT Gait Training Problem: Completed Decreased Gait Skills Instructed to cont HEP 2x/day 15-20 reps. She is able to teachback instructions. PT Establish Or Upgrade Problem: Home Ex Program Decreased Knowledge Of Home Exercise Program Removed old dressing, Applied island dressing. . Wound healing with no signs of infection and drainage now resolved. . PT Monitor Surgical Problem: Completed Incision Impaired Description: Tissue PT to inspect R knee Integrity incision with dressing change daily as long as draining. Remove old dressing. Apply island dressing with added 4x4 for absorption and secure with Hypafix tape. Patient and Caregiver to be instructed to change dressing and monitor for signs/symptoms of infecton when PT not present. Patient was instructed in and performed AROM, AAROM and stretching to right knee x 15 reps. Extensor lag with slr: 13 R Knee A ROM Supine: 0-12-110 Seated: 0-15-110 PT ROM Exercises Problem: Completed Lower Extremity/ Trunk Impairment Patient was instructed and returned demonstration in: Supine: ankle pumps, quad sets, heel slides 5 fast and 10 with stretch, hip add/hip abd, SLR and SAQ with dorsiflexion at end range x 15 reps Seated: ankle pumps, LAQ wiht 5 sec hold last [address] and hold techn in terminal extension and knee flexion x 15 reps Upgraded to standing program at counter: Standing at Counter: heel raises x15 x Hupgraded to Alternate Hamstring Curls 15 reps Standing sideways at counter with 1 hand support of counter: Dynamic stance R LE x15 Patient required: min verbal cues for ex techn and occ tactile cues for medial quad facilitation. Performance improved by improved recruitment of R quad in long arc plane. PT Strengthening Problem: Completed Exercises Lower Extremity/ Trunk Impairment Denies questions or concerns Medication Regimen Review Problem: Completed Including Name, Dose, Medication Frequency, and Route Management Description: Assess/review medications for adherence new orders, errors, questions/concerns, presence in the home. Applied Ice to R Knee with R Lower leg on chair for extra stretch of H.S. this date. Instructed to adopt this method of icing following ther ex for additional extension stretch. She is able to teachback instructions. Alternate Pain Modalities Problem: Completed Description: Pain Use of ice to R Knee for Management 20 minutes 2 times per day post exercise and as needed for pain Assess/Instruct Pain Problem: Scheduled Monitoring/Management Pain Description: Management Assess/Instruct in interventions to monitor and mitigate pain. Patient Goals Problem: Scheduled Description: Patient Patient stated goals: Strengths, increase strength and ROM Goals, and R Knee, managing symptoms Care at home, bathe and dress Preference without assistance and be s able to return hometo [place] documented in this encounter
--- OUTSIDE RECORDS SUMMARY | 2019-06-07 16:05 | XMS REPORT | Encounter Summary ---
Author Author [facility] Organization [facility] Address Unknown Phone Unavailable Care Team Providers Care Masonry Inspector Name Role Phone Shannon Falk PCP Reason for Visit * HH Auth Cert Referred By Contact Referred To Contact Status Reason Specialty Diagnoses / Procedures Encounter Details Care Team Description Date Type Department Jenny Covarrubias, PT PT OASIS START OF CARE 03/03/[address] [facility] Home Care and [facility] 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 Temperature - - Respiratory Rate 96% 03/03/2018 12:54 PM SPRING COILING MACHINE SETTER Oxygen Saturation - - Inhaled Oxygen Concentration - - Weight - - Height - - Body Mass Index documented in this encounter Plan of Treatment Care Team Description Date Type Specialty Mayank Novoa DO [address] [address] [phone] 06/17/2019 Appointment Pain Medicine Vikas Ross MD [address] [place] [address] [phone] 07/03/2019 Office Visit Cardiology documented as of this encounter Visit Diagnoses Not on filedocumented in this encounter Home Health Visit - Care Plan Visit Type - PT OASIS Start Of Care Discipline - Physical Therapy Status Goals Interventions Problem Descriptio Start Date n Active - 1 problem intervention scheduled/documented in this visit Advance Directives Advance 03/03/2018 Disciplines: Directives Nursing Home, Physical Therapy, Occupational Therapy, Speech Language Pathology, [...] problem intervention scheduled/documented in this visit Decreased Transfers 03/03/2018 Disciplines: Physical Therapy Active - 1 problem intervention scheduled/documented in this visit Impaired Tissue Integrity 03/03/2018 Disciplines: Physical Therapy Active - 2 problem interventions scheduled/documented in this visit Lower Extremity/Trunk Impairment Disciplines: Physical Therapy Active - 2 problem interventions scheduled/documented in this visit Medication Management Management 03/03/2018 Disciplines: and Nursing Home, Physical Education Therapy, Occupational of All Therapy, Speech Language Home Pathology, Home Health Massotherapist, Medical Social s Work, Music Therapist, Including Dietitian, Nurse Prescripti Practioner on and OTC. Active - 1 problem intervention scheduled/documented in this visit Medication Management Management 03/03/2018 Disciplines: and Nursing Home, Physical Education Therapy, Occupational of All Therapy, Speech Language Home Pathology, Home Health Massotherapist, Medical Social s Work, Music Therapist, Including Dietitian, Nurse Prescripti Practioner on and OTC. Active - 2 problem interventions scheduled/documented in this visit Pain Management Patient 03/03/2018 Disciplines: has pain. Nursing Home, Physical Therapy, Occupational Therapy, Speech Language Pathology, Home Health Aide, Medical Social Work, Music Therapist, Dietitian, Nurse Practioner Active - 1 problem intervention scheduled/documented in this visit Patient Financial 03/03/2018 Responsibility Disciplines: Nursing Home, Physical Therapy, Occupational Therapy, Speech Language Pathology, Home Health Aide, Medical Social Work, Music Therapist, Dietitian, Nurse Practioner Active - 1 problem intervention scheduled/documented in this visit Patient Strengths, Goals, Strengths, and Care Preferences Goals, Disciplines: Care Nursing Home, Physical Preference Therapy, Occupational s Therapy, Speech Language Pathology, Home Health Aide, Medical Social Work, Music Therapist, Dietitian, Nurse Practioner Active - 2 problem interventions scheduled/documented in this visit Patient/Provider 03/03/2018 Communication and Provision of Supplies Disciplines: Nursing Home, Physical Therapy, Occupational Therapy, Speech Language Pathology, Home Health Aide, Medical Social Work, Music Therapist, Dietitian, Nurse Practioner Active - 1 problem intervention scheduled/documented in this visit Prevention Of Skin Patient at 03/03/2018 Breakdown-Pressure Ulcer risk for Disciplines: pressure Nursing Home, Physical ulcers. Therapy, Occupational Therapy, Speech Language Pathology, Home Health Aide, Medical Social Work, Music Therapist, Dietitian, Nurse Practioner Active - 1 problem intervention scheduled/documented in this visit Risk Of Falls Patient at 03/03/2018 Disciplines: risk for Nursing Home, Physical falls. Therapy, Occupational Therapy, Speech Language Pathology, Home Health Aide, Medical Social Work, Music Therapist, Dietitian, Nurse Practioner Variance Visit Notes Intervention Associated Status Problem/Go al None in place. Edu material provided Advance Directives Problem: Completed Requested/Obtained Advance Directives Patient instructed in and performed ambulation 30' x1, 50' [id number] using front wheel walker with stand by assistance and verbal and visual cues for heel strike, R hip in neutral rotation at mid stance and swing phase. Walk following ther ex with reduced antalgic pattern but neutral rotation cont to req work. PT Gait Training Problem: Completed Decreased Gait Skills Patient was instructed in and returned demonstration of supine, seated, standing and walking home exercise program with mod verbal cues for ex techn and modifications and min tactile cues for medical quad facilitation. Provided written instructions for upgrades and modifications. Instructed to add to HEP and perform 10-20 reps each. PT Establish Or Upgrade Problem: Completed Home Ex Program Decreased Knowledge Of Home Exercise Program PT Transfer Training Problem: Completed Decreased Transfers PT inspected R knee incision with dressing change. Removed old dressing and applied island dressing with added 4x4 at distal end of incision for absorption. Secured distal end with Hypafix tape. Moderate amount of drainage from distal end where sandra closing. No evidence of s/s of infection. PT Monitor Surgical Problem: Completed Incision Impaired [...] stretching to right knee x 15 reps. R Knee A ROM Supine: 0-10-86 Seated: 0-50-103 PT ROM Exercises Problem: Completed Lower Extremity/ Trunk Impairment Patient was instructed and returned demonstration in: Supine: ankle pumps, quad sets, heel slides, hip add, hip abd, SLR and SAQ x 15 reps Seated: ankle pumps, LAQ and knee flexion x 10 reps Upgraded to standing program: Standing at Walker: heel raises x Hamstring Curls 10 reps Standing sideways at counter with 2 hand support of counter and walker sideways: Dynamic stance R LE x10 Patient required: mod verbal cues for ex techn and modifications and min tactile cues for medical quad facilitation. Performance improved by improved recruitment of R medial quad. PT Strengthening Problem: Completed Exercises Lower Extremity/ Trunk Impairment Performed Medication Reconcilliation. Informed patient to expect call form nurse for med education. Medication Regimen Review Problem: Completed Including Name, Dose, Medication Frequency, and Route Management Description: Assess/review medications for adherence new orders, errors, questions/concerns, presence in the home. Recommended re-starting BP meds tomorrow and monitoring closely. She is able to teachback instructions. Education All Home Meds Problem: Completed Including Prescriptions Medication Management Patient instructed on high-risk medications including: narcotics. Patient instructed on side effects, 3000mg limit of Tylenol in 24 hr timeframe. . Patient response to teaching: teach back provided. Instruct On High Risk Problem: Completed Medications Medication Management Instructed in use of ice to R Knee for 20 minutes 2 times per day post exercise and as needed for pain Patient able to teachback instructions. Alternate Pain Modalities Problem: Completed Description: Pain Use of ice to R Knee for Management 20 minutes 2 times per day post exercise and as needed for pain Assessed patient's pain. Patient instructed in pain management techniques, including: medication monitoring, positioning, distraction techniques, activity modifications and joint protection techniques. Patient response to teaching: teach back provided. Assess/Instruct Pain Problem: Completed Monitoring/Management Pain Description: Management Assess/Instruct in interventions to monitor and mitigate pain. Patient Financial Problem: Completed Document Patient Presented/Explained Financial Responsibarcadio frank Patient and Caregiver demonstrates progress towards the stated goals by understanding of PT POC. Patient Goals Problem: Completed Description: Patient Patient stated goals: Strengths, increase strength and ROM Goals, and R Knee, managing symptoms Care at home, bathe and dress Preference without assistance and be s able to return hometo [place] Plan of Care communicated to Dr. Branham on:03.05.18. POC approved per protocol. POC Communication Problem: Completed w/Physician Patient/Pr ovider Communicat ion and Provision of Supplies Instructed patient/caregiver on discharge planning and services to be provided on the plan of care. Patient/Caregiver informed of ordered services with Physical Therapy. Patient to be seen at least 4 visits Patient/caregiver in agreement with plan of care. Per Insurance Verification on this date, explained patient is responsible for non-covered supplies during HH episode. Patient/Caregiver verbalized able to teach back fully. Plan of Care and Problem: Completed Provision of Supplies Patient/Pr Communicated to Patient ovider Communicat ion and Provision of Supplies Assessed for pressure ulcer. Patient instructed in pressure ulcer prevention, including: pressure relief measures, managing moisture and managing friction/shear. Patient response to teaching: teach back provided. Assess/Instruct Pressure Problem: Completed Ulcer Prevention Prevention Description: Of Skin Assess/instruct in Breakdown- interventions to prevent Pressure pressure ulcers. Ulcer Patient instructed on: proper footwear, need for caregiver assist/supervsion, emergency precautions and (Lis): Fall Prevention. Patient response to teaching: teach back provided. Instruct Fall Prevention Problem: Completed Description: Risk Of Assess/Instruct in fall Falls prevention. documented in this encounter Home Health Visit - Actions and Narratives achieved Your Diagnosis Codes have been entered. Please review for proper dx and sequencing. Enter Symptom Management Ratings for Di agnosis in M1021 / M1023. Review [place] for completeness. To acknowledge/agree to these changes, first do a patient level sync to get the coding updates. Then, open your assessment in an addend um. Go to Coding Review form. Review the coded diagnoses, then review and edit symptom control ra tings as indicated. Please note your acceptance of Coding in the Additional Narrative section of the chart. For modifications to the coding, please send request in a Staff message to the Quality Partner with your concerns documented in this encounter
--- OUTSIDE RECORDS SUMMARY | 2019-06-07 16:05 | XMS REPORT | Encounter Summary ---
Author Author [facility] Organization [facility] Address Unknown Phone Unavailable Care Team Providers Care Metaphysics Teacher Name Role Phone [place], Shannon PCP Encounter Details Care Team Description Date Type Department Vikas Ross MD [address] [place] [address] [phone] 10/17/2018 Documentation [facility] [address] [place] [address] Social History Date Tobacco Use Types Packs/Day [...] Care Team Description Date Type Specialty Mayank Nvooa DO [address] [facility] [address] [place] [address] 06/17/2019 Appointment Pain Medicine Vikas Ross MD [address] [place] [address] [phone] 07/03/2019 Office Visit Cardiology documented as of this encounter Visit Diagnoses Not on filedocumented in this encounter
--- OUTSIDE RECORDS SUMMARY | 2019-06-07 16:05 | XMS REPORT | Encounter Summary ---
Author Author [facility] Organization [facility] Address Unknown Phone Unavailable Care Team Providers Care Roof Truss Detailer Name Role Phone Shannon Falk PCP Reason for Visit * HH Auth Cert Referred By Contact Referred To Contact Status Reason Specialty Diagnoses / Procedures Encounter Details Care Team Description Date Type Department Jenny Covarrubias, PT PT OASIS DISCHARGE 03/12/[address] [facility] Home Care and [facility] [address] [address] Social History Date Tobacco Use [...] Signs Reading Time Taken Comments Vital Sign 120/64 03/12/2018 10:57 AM HEALTH EDUCATOR Blood Pressure 72 03/12/2018 10:57 AM HEALTH EDUCATOR Pulse - - Temperature - - Respiratory Rate 97% 03/12/2018 10:57 AM HEALTH EDUCATOR Oxygen Saturation - - Inhaled Oxygen Concentration - - Weight - - Height - - Body Mass Index documented in this encounter Plan of Treatment Care Team Description Date Type Specialty Mayank Novoa DO [address] [facility] [address] [place] [address] [phone] 06/17/2019 Appointment Pain Medicine Vikas Ross MD [address] [facility] [address] [place] [address] [phone] 07/03/2019 Office Visit Cardiology documented as of this encounter Visit Diagnoses Not on filedocumented in this encounter Home Health Visit - Care Plan Visit Type - PT OASIS Discharge Discipline - Physical Therapy Status Goals Interventions Problem Descriptio Start Date n Resolved on 03/12/2018 - 2 problem interventions scheduled/documented in this visit Current Vaccines 03/03/2018 Disciplines: [facility], Physical Therapy, Occupational Therapy, Speech Language Pathology, Home Health Aide, Medical Social Work, Music Therapist, Dietitian, Nurse Practioner Resolved on 03/12/2018 - 1 problem intervention scheduled/documented in this visit Decreased Gait Skills 03/03/2018 Disciplines: Physical Therapy Resolved on 03/12/2018 - 1 problem intervention scheduled/documented in this visit Decreased Knowledge Of Absence of 03/03/2018 Home Exercise Program or lack of Disciplines: understand Physical Therapy ing of home exercise program. Resolved on 03/12/2018 - 1 problem intervention scheduled/documented in this visit Decreased Stair Climbing 03/03/2018 Disciplines: Physical Therapy Resolved on 03/12/2018 - 1 problem intervention scheduled/documented in this visit Impaired Tissue Integrity 03/03/2018 Disciplines: Physical Therapy Resolved on 03/12/2018 - 2 problem interventions scheduled/documented in this visit Lower Extremity/Trunk Impairment Disciplines: Physical Therapy Resolved on 03/12/2018 - 1 problem intervention scheduled/documented in this visit Medication Management Management 03/03/2018 Disciplines: and [facility], Physical Education Therapy, Occupational of All Therapy, Speech Language Home Pathology, Home Health Contact Center Team Lead, Medical Social s Work, Music Therapist, Including Dietitian, Nurse Prescripti Practioner on and OTC. Resolved on 03/12/2018 - 1 problem intervention scheduled/documented in this visit Medication Management Management 03/03/2018 Disciplines: and [facility], Physical Education Therapy, Occupational of All Therapy, Speech Language Home Pathology, Home Health Contact Center Team Lead, Medical Social s Work, Music Therapist, Including Dietitian, Nurse Prescripti Practioner on and OTC. Resolved on 03/12/2018 - 2 problem interventions scheduled/documented in this visit Pain Management Patient 03/03/2018 Disciplines: has pain. [facility], Physical Therapy, Occupational Therapy, Speech Language Pathology, Home Health Aide, Medical Social Work, Music Therapist, Dietitian, Nurse Practioner Resolved on 03/12/2018 - 1 problem intervention scheduled/documented in this visit Patient Strengths, Goals, Strengths, and Care Preferences Goals, Disciplines: Care [facility], Physical Preference Therapy, Occupational s Therapy, Speech Language Pathology, Home Health Aide, Medical Social Work, Music Therapist, Dietitian, Nurse Practioner Resolved on 03/12/2018 - 1 problem intervention scheduled/documented in this visit Prevention Of Skin Patient at 03/03/2018 Breakdown-Pressure Ulcer risk for Disciplines: pressure [facility], Physical ulcers. Therapy, Occupational Therapy, Speech Language Pathology, Home Health Aide, Medical Social Work, Music Therapist, Dietitian, Nurse Practioner Variance Visit Notes Intervention Associated Status Problem/Go al Has patient had Flu Vaccine? No: Offered and declined Patient states she never gets vaccinations Flu Vaccine Problem: Completed Current Vaccines Has patient had Pneumonia Vaccine? No: Offered and declined Patient states she never gets vaccinations. Pneumonia Vaccine Problem: Completed Current Vaccines Patient instructed in and performed ambulation 50' distance using single point cane with stand by assistance and tactile and verbal cues for heel strike, swing phase, weight shifting and increase stride length. Gait pattern with RW more fluid R Le Swing thru and reciprocal than with SPC. Recommended she cont with RW ambulation at this time and progress towards spc as directed by out-patient. PT Gait Training Problem: Completed Decreased Gait Skills Patient was reviewed in and returned demonstration of finalized supine, seated, standing and walking home exercise program with no verbal cues . PT Establish Or Upgrade Problem: Completed Home Ex Program Decreased Knowledge Of Home Exercise Program Patient was instructed in and performed stair climbing on 4 stairs, with 2 hand rails. Patient required stand by assistance with verbal for sequence, in step-to pattern. PT Stair Climbing Problem: Completed Decreased Stair Climbing Removed old dressing, Applied island dressing. Wound healing with no signs of infection.Scant dried brown drainage noted on dressing. PT Monitor Surgical Problem: Completed Incision Impaired [...] x 15 reps. Extensor lag with slr: 12 R Knee A ROM Supine: 0-8-110 Seated: 0-8-110 PT ROM Exercises Problem: Completed Lower Extremity/ [...] extension and knee flexion x 15 reps Standing program at counter: Standing at Counter: heel raises x15 x Hip Alternating Extension and Hamstring Curls 15 reps Standing sideways at counter with 1 hand support of counter: Dynamic stance R LE x15 Patient required: no verbal cues for ex techn and occ tactile cues for medial quad facilitation and end range stretching.. Performance improved by improved ex fluidity without cuing PT Strengthening Problem: Completed Exercises Lower Extremity/ Trunk Impairment Denies questions or concerns Medication Regimen Review Problem: Completed Including Name, Dose, Medication Frequency, and Route Management Description: Assess/review medications for adherence new orders, errors, questions/concerns, presence in the home. Patient denies questions or concerns. States she plans to discuss ongoing needs with Dr. Branham at [facility] tomorrow. Instruct On High Risk Problem: Completed Medications Medication Management Patient indep with cryotherapy use post ex and PRN for pain and edema R Knee Alternate Pain Modalities Problem: Completed Description: Pain Use of ice to R Knee for Management 20 minutes 2 times per day post exercise and as needed for pain Assessed patient's pain. Patient reviewed in pain management techniques, including: medication monitoring, positioning, distraction techniques, activity modifications and joint protective techn.. Patient response to teaching: recall from last visit provided and return demo provided . Assess/Instruct Pain Problem: Completed Monitoring/Management Pain Description: Management Assess/Instruct in interventions to monitor and mitigate pain. Patient demonstrates progress towards the stated goals by increased strength and ROM R Knee, managing symptoms at home, bathe and dress without assistance and be able to return hometo [place] . Patient Goals Problem: Completed Description: Patient Patient stated goals: Strengths, increase strength and ROM Goals, and R Knee, managing symptoms Care at home, bathe and dress Preference without assistance and be s able to return hometo [place] Assessed for pressure ulcer. Risk resolved as mobility increased. Assess/Instruct Pressure Problem: Completed Ulcer Prevention Prevention Description: Of Skin Assess/instruct in Breakdown- interventions to prevent Pressure pressure ulcers. Ulcer documented in this encounter
--- OUTSIDE RECORDS SUMMARY | 2019-06-07 16:05 | XMS REPORT | Encounter Summary ---
Author Author [facility] Organization [facility] Address Unknown Phone Unavailable Care Team Providers Care Supervisor Poultry Hatchery Name Role Phone [place], Shannon PCP Encounter Details Care Team Description Date Type Department Vikas Ross MD [address] [facility] [address] [place] [address] [phone] 11/15/2018 Documentation [facility] [address] [facility] [address] [place] [address] Social History Date Tobacco Use Types Packs/Day [...] Date Type Specialty Mayank Novoa DO [address] [facility] [address] [place] [address] [phone] 06/17/2019 Appointment Pain Medicine Vikas Ross MD [address] [facility] [address] [place] [address] [phone] 07/03/2019 Office Visit Cardiology documented as of this encounter Visit Diagnoses Not on filedocumented in this encounter
--- OUTSIDE RECORDS SUMMARY | 2019-06-07 16:05 | XMS REPORT | Encounter Summary ---
Author Author [facility] Organization [facility] Address Unknown Phone Unavailable Care Team Providers Care Furnace Repairer Helper Name Role Phone Shannon Falk PCP Reason for Visit * HH Auth Cert Referred By Contact Referred To Contact Status Reason Specialty Diagnoses / Procedures Encounter Details Care Team Description Date Type Department Jenny Covarrubias, PT PT HOME VISIT 03/06/2018 Home Care Visit [facility] [address] [address] Social History Date Tobacco Use [...] Signs Reading Time Taken Comments Vital Sign 140/80 03/06/2018 2:57 PM PACKAGER HAND Blood Pressure 78 03/06/2018 2:57 PM PACKAGER HAND Pulse - - Temperature - - Respiratory Rate 97% 03/06/2018 2:57 PM PACKAGER HAND Oxygen Saturation - - Inhaled Oxygen Concentration - - Weight - - Height - - Body Mass Index documented in this encounter Plan of Treatment Care Team Description Date Type Specialty Mayank Novoa DO [address] [facility] [address] [place] [address] [phone] 06/17/2019 Appointment Pain Medicine Vikas Ross MD [address] [place] [address] [phone] 07/03/2019 Office Visit Cardiology documented as of this encounter Visit Diagnoses Not on filedocumented in this encounter Home Health Visit - Care Plan Visit Type - PT Home Visit Discipline - Physical Therapy Status Goals Interventions Problem Descriptio Start Date n Active - 1 problem intervention scheduled/documented in this visit Advance Directives Advance 03/03/2018 Disciplines: Directives Retirement, Physical Therapy, Occupational Therapy, Speech Language Pathology, [...] visit Medication Management Management 03/03/2018 Disciplines: and Retirement, Physical Education Therapy, Occupational of All Therapy, Speech Language Home Pathology, Home Health Cost Estimating Engineer, Medical Social s Work, Music Therapist, Including Dietitian, Nurse Prescripti Practioner on and OTC. Active - 2 problem interventions scheduled/documented in this visit Pain Management Patient 03/03/2018 Disciplines: has pain. Retirement, Physical Therapy, Occupational Therapy, Speech Language Pathology, Home Health Aide, Medical Social Work, Music Therapist, Dietitian, Nurse Practioner Active - 1 problem intervention scheduled/documented in this visit Patient Strengths, Goals, Strengths, and Care Preferences Goals, Disciplines: Care Retirement, Physical Preference Therapy, Occupational s Therapy, Speech Language Pathology, Home Health Aide, Medical Social Work, Music Therapist, Dietitian, Nurse Practioner Active - 1 problem intervention scheduled/documented in this visit Prevention Of Skin Patient at 03/03/2018 Breakdown-Pressure Ulcer risk for Disciplines: pressure Retirement, Physical ulcers. Therapy, Occupational Therapy, Speech Language Pathology, Home Health Aide, Medical Social Work, Music Therapist, Dietitian, Nurse Practioner Variance Visit Notes Intervention Associated Status Problem/Go al Advance Directives Problem: Completed Requested/Obtained Advance Directives Patient observed to step away from walker and furniture walk for short distances. Instructed to be consistent with walker use to avoid building limp into walking patern and avoid fall risk. She is able to teachback instructions and willing to use walker during session at least. Patient instructed in and performed ambulation 100' [id number] using front wheel walker with stand by assistance and verbal and visual cues for heel strike, R hip in neutral rotation at mid stance and swing phase. Patient's able to perform progressive reciprocal pattern this date with reduced antalgia. Swing phase R LE improved fluidity and mid stance R Le more neutral but knee remains flexed thru cycle. PT Gait Training Problem: Completed Decreased Gait Skills Patient was reviewed in and returned demonstration of supine, seated, standing and walking home exercise program with min verbal cues for ex techn and modifications and min tactile cues for medial quad facilitation. Instructed to continue HEP and perform 15-20 reps each. PT Establish Or Upgrade Problem: Completed Home Ex Program Decreased Knowledge Of Home Exercise Program Reinforced consisntent walker usage to avoid twisting on R Knee an better incorp of R LE into mobility. She is able to teachback instructions. PT Transfer Training Problem: Completed Decreased Transfers Patient refused dressing change this date stating she just changed it this morning. Rpts drainage has stopped. Quyen wound with no s/s of infection. PT Monitor Surgical Problem: [...] x 15 reps. Extensor lag with slr: 18 R Knee A ROM Supine: 0-8-95 Seated: 0-25-110 PT ROM Exercises Problem: Completed Lower Extremity/ [...] Problem: Completed Exercises Lower Extremity/ Trunk Impairment 03.06.18: Re-started bp regime 03.04.18 Medication Regimen Review Problem: Completed Including Name, Dose, Medication Frequency, and Route Management Description: Assess/review medications for adherence new orders, errors, questions/concerns, presence in the home. Demonstrates independence in use of cryo therapy usage this date but she Cont to re cuing for full extension positioning with placement. Alternate Pain Modalities Problem: Completed Description: Pain Use of ice to R Knee for Management 20 minutes 2 times per day post exercise and as needed for pain Assessed patient's pain. Patient instructed in pain management techniques, including: medication monitoring, positioning, distraction techniques, activity modifications and joint protection techniques. Patient response to teaching: return demonstration provided. Assess/Instruct Pain Problem: Completed Monitoring/Management Pain Description: Management Assess/Instruct in interventions to monitor and mitigate pain. Patient Goals Problem: Scheduled Description: Patient Patient stated goals: Strengths, increase strength and ROM Goals, and R Knee, managing symptoms Care at home, bathe and dress Preference without assistance and be s able to return hometo [place] risk reduced as mobility improved Assess/Instruct Pressure Problem: Completed Ulcer Prevention Prevention Description: Of Skin Assess/instruct in Breakdown- interventions to prevent Pressure pressure ulcers. Ulcer documented in this encounter
--- OUTSIDE RECORDS SUMMARY | 2019-06-07 16:05 | XMS REPORT | Encounter Summary ---
Author Author [facility] Organization [facility] Address Unknown Phone Unavailable Care Team Providers Care Financial Aid Director Name Role Phone Deya Shannon PCP Encounter Details Care Team Description Date Type Department Carey Holt APRN [address] [facility] [address] [place] [address] [phone] 11/14/2018 Documentation [facility] [address] [place] [address] Social History Date Tobacco Use Types Packs/Day [...] Date Type Specialty Mayank Novoa DO [address] [facility] [address] [place] [address] [phone] 06/17/2019 Appointment Pain Medicine Vikas Ross MD [address] [facility] [address] [place] [address] [phone] 07/03/2019 Office Visit Cardiology documented as of this encounter Visit Diagnoses Not on filedocumented in this encounter
--- OUTSIDE RECORDS SUMMARY | 2019-06-07 16:05 | XMS REPORT | Encounter Summary ---
Author Author [facility] Organization [facility] Address Unknown Phone Unavailable Care Team Providers Care Station Manager Name Role Phone Shannon Falk PCP Reason for Referral * Consultation (Routine) Referred By Contact Referred To Contact Status Reason Specialty Diagnoses / Procedures Nikhil Brooke DO [address] [facility] [facility] [address] [place] [address] Frank Abdi MD [address] [place] [address] Closed Specialty Services Neurosurgery Diagnoses Required Low back pain Encounter Details Care Team Description Date Type Department Nikhil Brooke DO [address] [facility] [facility] [address] [place] [address] [phone] Low back pain (Primary Dx) 11/19/2018 Transcribe [facility] Neurol ogical Orders & Spine Surgery [address] [place] [address] Social History Date Tobacco Use Types Packs/Day [...] Date Type Specialty Mayank Novoa DO [address] [facility] [address] [place] [address] [phone] 06/17/2019 Appointment Pain Medicine Vikas Ross MD [address] [facility] [address] [place] [address] [phone] 07/03/2019 Office Visit Cardiology Order Schedule Name Type Priority Associated Diag noses 1 Occurrences starting 11/19/2018 until 05/20/2019 Amb Referral To Outpatient Routine Low back pain Neurosurgery Referral documented as of this encounter Visit Diagnoses Diagnosis Low back pain Lumbago documented in this encounter
--- OUTSIDE RECORDS SUMMARY | 2019-06-07 16:05 | XMS REPORT | Encounter Summary ---
Author Author [facility] Organization [facility] Address Unknown Phone Unavailable Care Team Providers Care School Patrol Name Role Phone Shannon Falk PCP Encounter Details Care Team Description Date Type Department Emily Bradshaw APRN [address] [place], [place] [id number] [facility] [address] [facility], [address] [place] [address] Social History Date Tobacco Use Types Packs/Day [...] Date End Date Medication Sig Dispensed Refills 04/27/2015 citalopram (CELEXA) 20 MG Take by mouth 0 tablet every morning. 04/18/2015 levothyroxine (SYNTHROID, Take 75 mcg 0 LEVOTHROID) 75 MCG tablet by mouth daily. 09/15/2017 10/31/2018 chlorthalidone (HYGROTON) Take 1 tablet 90 tablet 3 25 MG tablet (25 mg total) by mouth daily. 09/24/2015 01/29/2018 cyclobenzaprine Take 1 tablet 60 tablet 0 (FLEXERIL) 10 MG tablet (10 mg total) by mouth 3 (three) times a day as needed for muscle spasms. 04/23/2015 12/26/2018 gabapentin (NEURONTIN) Take 300 mg 0 600 MG tablet by mouth 2 (two) times a day. 04/26/2015 10/31/2018 losartan (COZAAR) 100 MG Take 100 mg 0 tablet by mouth daily. 10/16/2017 10/31/2018 spironolactone Take 1 tablet 90 tablet 3 (ALDACTONE) 25 MG tablet (25 mg total) by mouth daily. documented as of this encounter Plan of Treatment Care Team Description Date Type Specialty Mayank Novoa DO [address] [facility] [address] [place] [address] [phone] 06/17/2019 Appointment Pain Medicine Vikas Ross MD [address] [facility] [address] [place] [address] [phone] 07/03/2019 Office Visit Cardiology documented as of this encounter Visit Diagnoses Not on filedocumented in this encounter
--- OUTSIDE RECORDS SUMMARY | 2019-06-07 16:05 | XMS REPORT | Encounter Summary ---
Author Author [facility] Organization [facility] Address Unknown Phone Unavailable Care Team Providers Care Compound Machine Operator Name Role Phone Shannon Falk PCP Encounter Details Care Team Description Date Type Department Werner Ramirez TELEPHONE ENCOUNTER 03/02/2018 Home Care Visit [facility] Home Care and [facility] [address] [facility] [address] [place] [address] Social History Date Tobacco Use Types [...] Date Type Specialty Mayank Novoa DO [address] [facility] [address] [place] [address] [phone] 06/17/2019 Appointment Pain Medicine Vikas Ross MD [address] [facility] [address] [place] [address] [phone] 07/03/2019 Office Visit Cardiology documented as of this encounter Visit Diagnoses Not on filedocumented in this encounter
--- OUTSIDE RECORDS SUMMARY | 2019-06-07 16:05 | XMS REPORT | Encounter Summary ---
Author Author [facility] Organization [facility] Address Unknown Phone Unavailable Care Team Providers Care Lead Java Software Engineer Name Role Phone Shannon Falk PCP Encounter Details Care Team Description Date Type Department Vikas Ross MD [address] [facility] [address] [place] [address] [phone] Specialty Pharmacy Prior Auth Coordinati on 10/31/2018 Specialty [facility] [address] [facility] [place] [address] Social History Date Tobacco Use Types Packs/Day [...] as of this encounter Progress Notes * LibradoPuja fernandez Kiya - 10/31/2018 12:54 PM CDT Specialty Pharmacy Prior Authorization Progress Note Medication(s): Praluent Prior Authorization Status: Approved Approved through: 05/01/19 Copay as of 11/01/18: $150.89 Fill Pharmacy: [facility] Approval letter scanned into Dalila's media assistant BOUBACAR called and discussed approval with [facility]. She is ok with the copay, but has just dosed herself and has a sample for her next dose, so she is not due until 11/27. [facility] will enroll patient, send on to pharmacist for review and [facility] will reach out to Dalila to schedule her first fill closer to when she is due. Puja Pavon * Puja Pavon - 10/31/2018 12:54 PM CDT [facility] has received a prescription for Praluent and a prior authorization request has been submitted to [facility]'s insurance. documented in this encounter Plan of Treatment Care Team Description Date Type Specialty Mayank Novoa DO [address] [facility] [address] [place] [address] [phone] 06/17/2019 Appointment Pain Medicine Vikas Ross MD [address] [facility] [address] [place] [address] [phone] 07/03/2019 Office Visit Cardiology documented as of this encounter Visit Diagnoses Not on filedocumented in this encounter
--- OUTSIDE RECORDS SUMMARY | 2019-06-07 16:05 | XMS REPORT | Encounter Summary ---
Author Author [facility] Organization [facility] Address Unknown Phone Unavailable Care Team Providers Care Purchasing Buyer Name Role Phone Reynaldo Falky PCP Reason for Visit * HH Auth Cert Referred By Contact Referred To Contact Status Reason Specialty Diagnoses / Procedures Encounter Details Care Team Description Date Type Department Jenny Boucher RN MED ED REVIEW NOTE 03/08/2018 Home Care Visit [facility] Home Care and [place] [id number] [facility] [address] [place] [address] Social History Date Tobacco Use [...] [facility] [address] [place] [address] [phone] 06/17/2019 Appointment Pain Medicine Vikas Ross MD [address] [facility] [address] [place] [address] [phone] 07/03/2019 Office Visit Cardiology documented as of this encounter Visit Diagnoses Not on filedocumented in this encounter Home Health Visit - Care Plan Visit Type - Med Ed Review Note Discipline - Long Term Status Goals Interventions Problem Descriptio Start Date n Active - 1 problem intervention scheduled/documented in this visit Advance Directives Advance 03/03/2018 Disciplines: Directives Long Term, Physical Therapy, Occupational Therapy, Speech Language Pathology, Home Health Aide, Medical Social Work, Music Therapist, Dietitian, Nurse Practioner Active - 2 problem interventions scheduled/documented in this visit Medication Management Management 03/03/2018 Disciplines: and Long Term, Physical Education Therapy, Occupational of All Therapy, Speech Language Home Pathology, Home Health Electric Engine Mechanic, Medical Social s Work, Music Therapist, Including Dietitian, Nurse Prescripti Practioner on and OTC. Active - 1 problem intervention scheduled/documented in this visit Medication Management Management 03/03/2018 Disciplines: and Long Term, Physical Education Therapy, Occupational of All Therapy, Speech Language Home Pathology, Home Health Electric Engine Mechanic, Medical Social s Work, Music Therapist, Including Dietitian, Nurse Prescripti Practioner on and OTC. Active - 2 problem interventions scheduled/documented in this visit Pain Management Patient 03/03/2018 Disciplines: has pain. Long Term, Physical Therapy, Occupational Therapy, Speech Language Pathology, Home Health Aide, Medical Social Work, Music Therapist, Dietitian, Nurse Practioner Active - 1 problem intervention scheduled/documented in this visit Patient Strengths, Goals, Strengths, and Care Preferences Goals, Disciplines: Care Long Term, Physical Preference Therapy, Occupational s Therapy, Speech Language Pathology, Home Health Aide, Medical Social Work, Music Therapist, Dietitian, Nurse Practioner Variance Visit Notes Intervention Associated Status Problem/Go al Advance Directives Problem: Scheduled Requested/Obtained Advance Directives Medication Regimen Review Problem: Completed Including Name, Dose, Medication Frequency, and Route Management Description: Assess/review medications for adherence new orders, errors, questions/concerns, presence in the home. Provide detailed medication instruction on all medication including prescription, OTC, vitamins, supplements, and herbs. Patient instructed in the purpose, side effects, and dosage of the following medication(s) all meds. Medication education tool used was Gold Standard. Patient response to instruction: teach back provided. Education All Home Meds Problem: Completed Including Prescriptions Medication Management Patient instructed on high-risk medications including: blood thinners and narcotics. Patient instructed on asa and oxycodone. Patient response to teaching: teach back provided. Instruct On High Risk Problem: Completed Medications Medication Management Assessed patient's pain. Patient instructed in pain management techniques, including: medication management. Patient response to teaching: teach back provided. Assess/Instruct Pain Problem: Completed Monitoring/Management Pain Description: Management Assess/Instruct in interventions to monitor and mitigate pain. Alternate Pain Modalities Problem: Scheduled Description: Pain Use of ice to R Knee for Management 20 minutes 2 times per day post exercise and as needed for pain Patient Goals Problem: Scheduled Description: Patient Patient stated goals: Strengths, increase strength and ROM Goals, and R Knee, managing symptoms Care at home, bathe and dress Preference without assistance and be s able to return hometo Chauvin documented in this encounter Home Health Visit - Actions and Narratives MEDICATION REVIEW: _x__SOC ___ROC ___RECERT ___D/C ___MED CHANGE PATIENT'S MEDICATIONS WERE SCREENED FOR OBVIOUS SIGNS OF: INEFFECTIVENESS, SIGNIFICANT SIDE EFFECTS, DRUG INTERACTIONS, DUPLICATE DRUG THERA PY AND NON-COMPLIANCE. THIS WAS PERFORMED IN THE HOME BY THE THERAPIST WELL NOW VIA ELECTRONIC RECORD BY THE PHARMACIST OR NURSE. __x__ THIS CLINICIAN EDUCATED PATIENT A ND/OR CAREGIVER ON THE FOLLOWING HIGH RISK DRUGS: Asa and oxycodone ____ THIS CLINICIAN OFFERED EDUCATION D IRECTION TO THE THERAPIST TO EDUCATE PATIENT ON NEXT IN HOME VISIT ON THE FOLLOWING HIGH RISK D RUGS: (LIST) ____ N/A PATIENT EDUCATED PREVIOUSLY A ND NO FURTHER EDUCATION IS DESIRED. _x___ NO ISSUES OF CONCERN NOTED REGARD ING INEFFECTIVENESS, SIGNIFICANT SIDE EFFECTS, DRUG INTERACTIONS, DUPLICATE DRUG THERAPY AN D NON-COMPLIANCE. ____ ISSUES WERE NOTED DURING REVIEW A S DESCRIBED AND ADDRESSED BELOW: documented in this encounter
--- OUTSIDE RECORDS SUMMARY | 2019-06-07 16:05 | XMS REPORT | Encounter Summary ---
Author Author [facility] Organization [facility] Address Unknown Phone Unavailable Care Team Providers Care Triage Nurse Name Role Phone Shannon Falk PCP Encounter Details Care Team Description Date Type Department Silvia Navarro RN 10/29/2018 [facility] [address] [facility] [address] [place] [address] Social History Date Tobacco Use Types Packs/Day [...] Novoa DO [address] [facility] [address] [place] [address] [phone] 06/17/2019 Appointment Pain Medicine Vikas Ross MD [address] [facility] [address] [place] [address] [phone] 07/03/2019 Office Visit Cardiology documented as of this encounter Visit Diagnoses Not on filedocumented in this encounter
--- OUTSIDE RECORDS SUMMARY | 2019-06-07 16:05 | XMS REPORT | Encounter Summary ---
Author Author [facility] Organization [facility] Address Unknown Phone Unavailable Care Team Providers Care Audit Lead Name Role Phone Shannon Falk PCP Reason for Visit * Reason Comments Leg Swelling Leg pain Leg Restlessness Encounter Details Care Team Description Date Type Department Emily Bradshaw, VETERANS' COUNSELOR [address] [facility] [address] [place], [place] [id number] Edema, unspecified type (Primary Dx); Cramp in limb [facility] [address] [facility] [address] [place] [address] Social History Date Tobacco Use Types Packs/Day [...] Signs Reading Time Taken Comments Vital Sign 149/87 10/30/2017 10:10 AM CDT Blood Pressure 61 10/30/2017 10:10 AM CDT Pulse - - Temperature - - Respiratory Rate - - Oxygen Saturation - - Inhaled Oxygen Concentration 81.6 kg (180 lb) 10/30/2017 10:10 AM CDT Weight 162.6 cm (5' 4") 10/30/2017 10:10 AM CDT Height 30.9 10/30/2017 10:10 AM CDT Body Mass Index documented in [...] as of this encounter Progress Notes * Emily Bradshaw APRN - 10/30/2017 10:18 AM CDT [facility] Appointment Date: 10/30/2017 Shannon Falk MD [address] [facility] [address] RE: Dalila Hameed : 1950 Visit provider: Emily Bradshaw APRN Dear Shannon Falk MD, I had the pleasure of seeing Dalila Hameed in the office today. She is a 67 y.o. fe male and presents with the following chief complaints: Leg Swelling; Leg pain; a nd Leg Restlessness HPI: Dalila Hameed is a 67-year-old female whom I am seeing today for initial consultati on in the vein clinic. She has a past medical history of previous superficial v enous insufficiency treatment on her left leg that she described as vein strippi ng. This was approximately 10 years ago. She also has a past medical history o f hypertension and dyslipidemia. She is scheduled to undergo right knee replace ment in February. She was previously seen by Dr. Vikas Ross in cardiovascular evaluation. At t hat time, she reported lower extremity edema and he recommended stopping amlodip ine and he started Aldactone and chlorthalidone. She returns today and states her lower extremity swelling is significantly impro christopher but does still persist slightly by the end of the day. She showed me a pict ure of her swelling prior to these medication changes and there is a dramatic di fference. She also reports bilateral aching and cramping in her legs. This has been ongoing for many years and limits her activity. She has not yet tried the use of compression stockings. Ultrasound evaluation shows deep vein reflux in the right external iliac vein, r ight and left common femoral vein and left deep femoral vein. She had superfici al venous reflux in her right greater saphenous vein measuring 3.5 mm and 0.53 s econds, right anterior lateral saphenous vein measuring 3.3 mm and 2.05 seconds and right vein of Giacomini measuring 2.3 mm and 0.55 seconds. She had superfic ial venous reflux in the left greater saphenous vein measuring 3.9 mm and 0.88 s econds, anterior lateral saphenous vein measuring 5.8 mm and 1.56 seconds, and l eft tributary vein measuring 3.8 mm and 1.62 seconds. Vein Medical History Can you stand for 30 minutes without assistance?: Yes Can you climb three stairs (using hand rails) without assistance?: Yes Have you fallen in the last six months?: Yes Have you had previous treatment of your veins?: Stripping Have you ever had an ankle/leg ulcer?: [...] your symptoms interfere with performing daily activities?: Limts housewor k/yard work and volunteer activity Conservative Treatment What pain medications have you used?: hydrocodone Other conservative treatments?: Leg elevation, Activity restriction Compression Stockings Are you currently wearing compression stockings?: No Do you wear compression stockings daily?: No Pre Measurements Left Ankle Circumference (Pre): 21 cm Right Ankle Circumference (Pre): 20 cm Left Calf Circumference (Pre): 38 cm Right Calf Circumference (Pre): 37 cm Left Thigh Circumference (Pre): 57 cm Right Thigh Circumference (Pre): 58 cm Left Leg Length: 73 cm Right Leg Length: 72 cm Post Measurements Hose Size Hose Size: Patient Active Problem List Diagnosis SNOMED CT(R) Radicular leg pain RADICULAR PAIN RA (rheumatoid arthritis) (HCC) RHEUMATOID ARTHRITIS Neuropathy NEUROPATHY Hypothyroidism HYPOTHYROIDISM Essential [...] HANDS, HIPS RA (rheumatoid arthritis) ([facility]) APPROX 10 YRS Radicular leg pain 05/25/2015 Rheumatoid arthritis of spine ([facility]) CERVICAL SPINE; HAS FULL ROM WITH NECK Sciatica DOWN LEFT LEG Urinary incontinence STRESS INCONTINENCE Past Surgical History: Procedure Laterality Date BUNIONECTOMY Right FRACTURE SURGERY Left CLAVICAL FX FUSION, SPINE, LUMBAR, INTERBODY, TRANSFORAMINAL APPROACH Left 07/28/2015 Procedure: L4-L5 FUSION TRANSFORAMINAL LUMBAR INTERBODY SPINE; Surgeon: Yue Abdi MD; Location: [facility]; Service: Neurosurgery; Laterality: Le ft; HYSTERECTOMY MARTY FUNDOPLICATION ROTATOR CUFF REPAIR Right TONSILLECTOMY AND ADENOIDECTOMY VEIN LIGATION AND STRIPPING Left Final Medications: Current Outpatient Prescriptions Medication Sig Dispense Refill chlorthalidone (HYGROTON) 25 MG tablet Take 1 tablet (25 mg total) by mouth daily. 90 tablet 3 citalopram (CELEXA) 20 MG tablet Take by mouth every morning. cyclobenzaprine (FLEXERIL) 10 MG tablet Take 1 tablet (10 mg total) by mouth 3 (three) times a day as needed for muscle spasms. 60 tablet 0 gabapentin (NEURONTIN) 600 MG tablet Take 600 mg by mouth 2 (two) times a da y. levothyroxine (SYNTHROID, LEVOTHROID) 75 MCG tablet Take 75 mcg by mouth jeffy ly. losartan (COZAAR) 100 MG tablet Take 100 [...] Positive for leg swelling. Skin: Positive for itching. Negative for color change, dry skin, poor wound heal ing and rash. Musculoskeletal: Positive for joint pain, joint swelling, muscle cramps and musc le weakness. All other systems reviewed and are negative. Vital Signs 10/30/17 1010 BP: (!) 149/87 Pulse: 61 Weight: 81.6 kg (180 lb) Height: 1.626 m (5' 4") BMI: Body mass index is 30.9 kg/m. Physical Exam Constitutional: She is oriented to person, place, and time. She appears well-dev eloped and well-nourished. HENT: Head: Normocephalic. Neck: No JVD present. Cardiovascular: Normal rate and regular rhythm. Pulses: Dorsalis pedis pulses are 2+ on the right side, and 2+ on the left side. Pulmonary/Chest: Effort normal. No respiratory distress. Abdominal: Soft. Musculoskeletal: She exhibits no edema. Neurological: She is alert and oriented to person, place, and time. Skin: Skin is warm. Psychiatric: She has a normal mood and affect. Vitals reviewed. SNOMED CT(R) 1. Edema, unspecified type SWELLING - EDEMA - SYMPTOM 2. Cramp in limb CRAMP IN LIMB Impression and Plan: Mrs. Hameed has had significant improvement in her swelling due to the above medic ation changes. She does still have aching and cramping in her lower extremities that limit her activity. She has not yet tried the use of compression. Theref ore, I have asked that she obtain thigh-high compression stockings and return in 90 days for reevaluation. I spent 20 minutes discussing vein disease and patho physiology with her today. She did purchase compression in our office today and will return in 90 days for reevaluation. Should her symptoms improve with the use of compression, treatment could include right leg endovascular laser, ultras ound-guided injections and medium vein treatment. Left leg could include endova scular laser and ultrasound-guided injections. Thank you for allowing me to participate in Dalila Hameed's care. If I can be of a ny further assistance, please do not hesitate to contact me. Sincerely, Emily Bradshaw APRN documented in this encounter Plan of Treatment Care Team Description Date Type Specialty Mayank Novoa DO [address] [facility] [address] [place] [address] [phone] 06/17/2019 Appointment Pain Medicine Vikas Ross MD [address] [facility] [address] [place] [address] [phone] 07/03/2019 Office Visit Cardiology documented as of this encounter Visit Diagnoses Diagnosis Edema, unspecified type Cramp in limb Cramp of limb documented in this encounter
--- OUTSIDE RECORDS SUMMARY | 2019-06-07 16:05 | XMS REPORT | Encounter Summary ---
Author Author [facility] Organization [facility] Address Unknown Phone Unavailable Care Team Providers Care Traditional Chinese Herbalist Name Role Phone Shannon Falk PCP Reason for Visit * Reason Comments Leg pain Leg Swelling Encounter Details Care Team Description Date Type Department Chante Farrar, INGREDIENT SCALER [address] [place], [place] [id number] Varicose veins of both lower extremities with pain (Primary Dx) [facility] [address] [facility] [address] [place] [address] Social History Date Tobacco Use Types Packs/Day [...] Signs Reading Time Taken Comments Vital Sign 147/77 01/29/2018 10:00 AM MLT Blood Pressure 80 01/29/2018 10:31 AM MLT Pulse - - Temperature - - Respiratory Rate - - Oxygen Saturation - - Inhaled Oxygen Concentration 81.6 kg (180 lb) 01/29/2018 10:00 AM MLT Weight 162.6 cm (5' 4") 01/29/2018 10:00 AM MLT Height 30.9 01/29/2018 10:00 AM MLT Body Mass Index documented in this encounter [...] tablet (25 mg total) by mouth daily. 04/23/2015 12/26/2018 gabapentin (NEURONTIN) Take 300 mg 0 600 MG tablet by mouth 2 (two) times a day. 04/26/2015 10/31/2018 losartan (COZAAR) 100 MG Take 100 mg 0 tablet by mouth daily. 10/16/2017 10/31/2018 spironolactone Take 1 tablet 90 tablet 3 (ALDACTONE) 25 MG tablet (25 mg total) by mouth daily. documented as of this encounter Progress Notes * Chante Farrar, INGREDIENT SCALER - 01/29/2018 10:04 AM MLT [facility] Appointment Date: 01/29/2018 Shannon Falk MD [address] [facility] [address] RE: Dalila Hameed : 1950 Visit provider: Chante Farrar RN, [facility] Dear Shannon Falk MD, I had the pleasure of seeing Dalila Hameed in the office today. She is a 67 y.o. fe male and presents with the following chief complaints: Leg pain and Leg Swelling HPI: Ms. Hameed presents for reevaluation of her venous insufficiency. She is a 67-yea r-old female with history of venous insufficiency with prior treatment to her le ft leg years ago which she describes as vein stripping. Her medical history als o includes hypertension and dyslipidemia. She has had issues with chronic lower extremity edema as well as lower extremity discomfort described as aching and c ramping. Her vein mapping revealed bilateral deep vein reflux as well as large vein insufficiency involving the greater saphenous veins ,anterior lateral saphe nous veins, tributaries, and vein of Giacomini. She was noted to have medium ve in disease as well. She has completed a 90-day trial of compression during the daytime hours. She reports her symptoms have improved significantly although th ey have not entirely resolved. Her swelling is [...] interfere with performing daily activities?: limits house a nd yard work Conservative Treatment What pain medications [...] 30.0-34.9) Osteoarthritis HANDS, HIPS RA (rheumatoid arthritis) (HCC) APPROX 10 YRS Radicular leg pain 05/25/2015 Rheumatoid arthritis of spine ([facility]) CERVICAL SPINE; HAS FULL ROM WITH NECK Sciatica DOWN LEFT LEG Urinary incontinence STRESS INCONTINENCE Past Surgical History: Procedure Laterality Date BUNIONECTOMY Right FRACTURE SURGERY Left CLAVICAL FX FUSION, SPINE, LUMBAR, INTERBODY, TRANSFORAMINAL APPROACH Left 07/28/2015 Procedure: L4-L5 FUSION TRANSFORAMINAL LUMBAR INTERBODY SPINE; Surgeon: Yue Abdi MD; Location: [facility]; Service: Neurosurgery; Laterality: Le ft; HYSTERECTOMY MARTY [...] joint pain, joint swelling and muscle cramps. Nega tive for muscle weakness. Vital Signs 01/29/18 1000 01/29/18 1031 BP: (!) 147/77 Pulse: (!) 111 80 Weight: 81.6 kg (180 lb) Height: 1.626 m (5' 4") BMI: Body mass index is 30.9 kg/m. Physical Exam Constitutional: She is oriented to person, place, and time. She appears well-dev eloped and well-nourished. HENT: Head: Normocephalic. Cardiovascular: Regular rhythm, normal heart sounds and intact distal pulses. Pulmonary/Chest: Effort normal and breath sounds normal. Musculoskeletal: She exhibits edema (trace bilateral LE ). Normal calf pump Neurological: She is alert and oriented to person, place, and time. Skin: Skin is warm and dry. Scattered bilateral LE telangiectasias and reticular veins. Skin is dry, flakin g. Psychiatric: She has a normal mood and affect. Her behavior is normal. Judgment and thought content normal. SNOMED CT(R) 1. Varicose veins of both lower extremities with pain VARICOSE VEINS OF LOWER E XTREMITY Plan: #1 Venous insufficiency with lifestyle limiting symptoms. The use of compressio n has been helpful therefore I believe she will benefit from treatment of her ve nous insufficiency she will require endovenous laser ablation of her right great er saphenous vein with ultrasound-guided injections and treatment of her median vein disease. Her left leg is amenable to endovenous laser ablation of her ante rior lateral saphenous vein, ultrasound guided injections and the treatment of m edium vein disease. If EVLA of the AL is unsuccessful, she will require ultras ound-guided injections. She plans to proceed with her right knee replacement on February 27 therefore we will delay any venous treatment until after her recovery . She will return to our office in March for reevaluation. She will continu e to use compression during the daytime hours. #2 Deep vein insufficiency. This was noted bilaterally on vein mapping. We dis cussed she may always have some degree of lower extremity symptoms as a result I have encouraged her to use compression lifelong, engage in routine exercise, an d pursue weight loss. Thank you for allowing me to participate in Dalila Hameed's care. If I can be of a ny further assistance, please do not hesitate to contact me. Sincerely, Chante Farrar RN, AGACNP- documented in this encounter Plan of Treatment Care Team Description Date Type Specialty Mayank Novoa DO [facility] [address] [address] [phone] 06/17/2019 Appointment Pain Medicine Vikas Ross MD [address] [facility] [address] [place] [address] [phone] 07/03/2019 Office Visit Cardiology documented as of this encounter Visit Diagnoses Diagnosis Varicose veins of both lower extremitie s with pain documented in this encounter
--- OUTSIDE RECORDS SUMMARY | 2019-06-07 16:06 | XMS REPORT | Encounter Summary ---
Author Author [facility] Organization [facility] Address Unknown Phone Unavailable Care Team Providers Care School Inspector Name Role Phone Shannon Falk PCP Encounter Details Care Team Description Date Type Department Yobany Riddle PA-C [address] [place], [place] [id number] Spinal stenosis, lumbar (Primary Dx) 01/22/2016 Office Visit [facility] [address] [facility] [place], [place] [id number] Social History Date Tobacco Use Types Packs/Day Years Used Never Smoker Drinks/Week oz/Week Comments Alcohol Use RARELY Yes Sex Assigned at Date Recorded Female Industry Job Start Date Occupation Not on file Not on file Not on file Travel End Travel History Travel Start No recent travel history available. documented as of this encounter Last Filed Vital Signs Reading Time Taken Comments Vital Sign 138/60 01/22/2016 1:25 PM SOCIAL MEDIA COORDINATOR Blood Pressure 81 01/22/2016 1:25 PM SOCIAL MEDIA COORDINATOR Pulse - - Temperature - - Respiratory Rate - - Oxygen Saturation - - Inhaled Oxygen Concentration 77.1 kg (170 lb) 01/22/2016 1:25 PM SOCIAL MEDIA COORDINATOR Weight 162.6 cm (5' 4") 01/22/2016 1:25 PM SOCIAL MEDIA COORDINATOR Height 29.18 01/22/2016 1:25 PM SOCIAL MEDIA COORDINATOR Body Mass Index documented in this encounter Progress Notes * Yobany Riddle PA-C - 01/22/2016 1:15 PM SOCIAL MEDIA COORDINATOR Neurologic Surgery Return Patient Note Patient ID: Dalila Hameed is a 65 y.o. female. Subjective: Patient presents 6 months status post L4-L5 TLIF. She is not complaining of any significant pain. Continues to work with PT. She is no longer taking any pain medication. ANGELA score remains at 0 today. Neck Disability Index: % OSWESTRY: Patient Score: 0% PHQ-9 Little interest or pleasure in doing things: 0 Feeling down, depressed, or hopeless: 0 Trouble falling or staying asleep, or sleeping too much: 1 Feeling tired or having little energy: 1 Poor appetite or overeatin Feeling bad about yourself - or that you are a failure or have let yourself or y our family down: 0 Trouble concentrating on things, such as reading the newspaper or watching telev ision: 0 Moving or speaking so slowly that other people could have noticed. Or the opposi te - being so fidgety or restless that you have been moving around a lot more th an usual: 0 Thoughts that you would be better off , or of hurting yourself in some way: 0 PHQ-9 Total Score: 2 If you checked off any problems, how difficult have these problems made it for y ou to do your work, take care of things at home, or get along with other people? : Not difficult at all Review of Systems Constitutional: (-) fever, (-) change of appetite, (-) fatigue CV: (-) chest pain GI: (-) bloody/tarry stools, (-) abdominal pain, (-) weight loss, (-) diarrhea, (-) weight gain, (-) constipation : (-) difficulty urinating ENDO: (-) excessive hunger/thirst, (-) loss of libido, (-) spontaneous nipple di scharge PSYCH: (-) depression, (-) memory problems HEM: (-) easy bruising, (-) easy bleeding HEENT: (-) visual changes, (-) seasonal allergies SKIN: (-) rash/ skin condition PULM: (-) SOB MUSCULOSKELETAL: (-) muscle aches or pain Objective: Visit Vitals BP 138/60 Pulse 81 Ht 1.626 m (5' 4") Wt 77.1 kg (170 lb) BMI 29.18 kg/m2 Physical Exam Constitutional: Incision is well healed with appropriate scar formation. Gait and station are normal. Ambulating without assistance 5/5 strength in bilateral upper and lower extremities Sensation intact to light touch all extremities. Assessment/Plan: Dalila is doing very well today 6 months status post L4-L5 TLIF. She has no compl aints related to her lumbar spine. She will follow up in 6 months with [facility]. Yobany Riddle PA-C [facility] [place] [address] [facility] [address] [place] MEDIA COORDINATOR documented in this encounter Plan of Treatment Care Team Description Date Type Specialty Mayank Novoa DO [address] [facility] [address] [place] [address] [phone] 06/17/2019 Appointment Pain Medicine Vikas Ross MD [address] [facility] [address] [place] [address] [phone] 07/03/2019 Office Visit Cardiology Order Schedule Name Type Priority Associated Diag noses 1 Occurrences starting 01/22/2016 until 09/21/2016 XR Lumbar Spine 2 or 3 Imaging Routine Spinal stenosis, lumbar views documented as of this encounter Visit Diagnoses Diagnosis Spinal stenosis, lumbar Spinal stenosis of lumbar region documented in this encounter
--- OUTSIDE RECORDS SUMMARY | 2019-06-07 16:06 | XMS REPORT | Encounter Summary ---
Author Author [facility] Organization [facility] Address Unknown Phone Unavailable Care Team Providers Care Heeler Machine Name Role Phone Shannon Falk PCP Encounter Details Care Team Description Date Type Department Nikhil Brooke [address] [facility] [address] [place] [address] [phone] Seropositive rheumatoid arthritis of [facility] (Primary Dx) 02/22/2017 Transcribe [facility] Hospit [facility] Orders [address] [place] [address] Social History Date Tobacco Use Types Packs/Day [...] Team Description Date Type Specialty Mayank Novoa, DO [address] [facility] [address] [place] [address] [phone] 06/17/2019 Appointment Pain Medicine Vikas Ross MD [address] [facility] [address] [place] [address] [phone] 07/03/2019 Office Visit Cardiology documented as of this encounter Results * Infliximab (IFX) Conc+ IFX Ab (02/22/2017 10:30 AM INDIAN NANNY) Infliximab Drug 0.4 ug/mL [facility] Level Comment: In the presence of serum anti-infliximab antibodies, the infliximab drug level reflects the antibody-unbound (free) fraction of infliximab in serum. Quantitation Limit: <0.4 ug/mL Results of 0.4 or higher indicate detection of Infliximab. COMMENTS: - The optimal drug concentration depends upon patient- specific factors including the disease and desired therapeutic endpoint. - Target trough ranges of 3 to 7 ug/mL and 5 to 10 ug/mL have been studied in inflammatory bowel disease (1,2). - In severe CD, higher trough levels (>10 ug/mL) may be necessary to achieve fistula healing (3). - In rheumatoid arthritis, EULAR responders had higher trough levels (median 3.6 ug/mL) than non-responders (0.5 ug/mL) (4). Anti-Infliximab <22 ng/mL [facility] Antibody Comment: Interpretation: Anti-infliximab antibodies are UNDETECTED. Quantitation Limit: <22 ng/mL. Results of 22 or higher indicate detection of anti- infliximab antibodies. 22 - 200 ng/mL: LOW antibody titer, little/no apparent reduction in free drug level 201 - 1,000 ng/mL: INTERMEDIATE antibody titer, variable reduction in free drug level 1,001 or greater ng/mL: HIGH antibody titer, notably diminished or absent free drug level Comments: - Anti-drug antibodies may develop at any time during the course of biological therapy. - Low titer anti-drug antibodies may have little/no effect on drug level/efficacy. Antibodies in low titers may be transient and disappear overtime (5,6) or they may progress to higher titers (6). - High titers are likely to be more consequential, leading to loss of drug efficacy by preventing drug binding to TNF and/or increasing drug clearance (6,7). - Maintenance of drug levels greater than 3 ug/mL may reduce the risk of developing anti-drug antibodies (8). - This anti-infliximab antibody assay is not impeded by the presence of infliximab in serum (up to 100 ug/mL), and all positive antibody results are verified by a confirmatory test. References: 1. Zohreh Lee N, et al. Gastroenterol 2015;148:1320- 1329. 2. Reinaldo BP, et al. Inflamm Bowel Dis 2014;20:4223-8090. 3. Andrez Barrett, et al. Gastroenterol 2016;150(4):R868-Q337. 4. Wolbink GJ, et al. Sandra Rheum Dis 2005;64:704-707. 5. Alber Fulton, et al. Inflamm Bowel Dis 2012;18(12):2209- 2217. 6. Vernone Ricardoeechey N, et al. Am J Gastroenterol 2013;108:962- 971. 7. Yanai H, et al. Clin Gastroenterol Hepatol 2015;13(3): 522-530. 8. Keerthi JF, et al. Gastroenterol 2016;150(4):S144. 9. Terell J, et al. AAPS Journal 2016 DOI:10.1208/t87904- 016-9981-3. These tests were developed and their performance characteristics determined by [employer] They have not been cleared or approved by the Food and Drug Administration. However, both drug and anti-drug antibody assays have been developed and validated in accordance with FDA Guidance for Industry documents: Bioanalytical Method Validation (2013) and Assay Development and Validation for Immunogenicity Testing of Therapeutic Protein Products (2016). Results of a validation study of these assays have been published (9). Performed at: [facility] [address] [place], [place] [id number] Signaling Project Engineer: Eric Wilson MD, Phone: [phone] Specimen Blood Performing Organization Address City/State/[place] Ph one Number [phone] [place], [place] [address] documented in this encounter Visit Diagnoses Diagnosis Seropositive rheumatoid arthritis of mu ltiple sites (HCC) documented in this encounter
--- OUTSIDE RECORDS SUMMARY | 2019-06-07 16:06 | XMS REPORT | Encounter Summary ---
Author Author [facility] Organization [facility] Address Unknown Phone Unavailable Care Team Providers Care Admeasurer Name Role Phone Shannon Falk PCP Reason for Referral * Diagnostic Imaging (Routine) Referred By Contact Referred To Contact Status Reason Specialty Diagnoses / Procedures Nikhil Brooke DO [address] [facility] [address] [place] [address] Closed Diagnoses Localized edema Pain in right lower leg P rocedures US Venous Duplex Lower Extremity right Encounter Details Care Team Description Date Type Department Nikhil Brooke DO [address] [facility] [address] [place] [address] [phone] Localized edema (Primary Dx); Pain in right lower leg 08/07/2017 Transcribe [facility] [address] [place] [address] Social History Date Tobacco Use Types Packs/Day [...] Novoa DO [address] [facility] [address] [place] [address] [phone] 06/17/2019 Appointment Pain Medicine Vikas Ross MD [address] [place] [address] [phone] 07/03/2019 Office Visit Cardiology Order Schedule Name Type Priority Associated Diag noses 1 Occurrences starting 08/07/2017 until 08/07/2018 Venous Duplex Lower Vascular Routine Localiz ed edema Extremity right Ultrasound Pain in right lower leg documented as of this encounter Visit Diagnoses Diagnosis Localized edema Edema Pain in right lower leg documented in this encounter
--- OUTSIDE RECORDS SUMMARY | 2019-06-07 16:06 | XMS REPORT | Encounter Summary ---
Author Author [facility] Organization [facility] Address Unknown Phone Unavailable Care Team Providers Care Project Eng Name Role Phone Shannon Falk PCP Encounter Details Care Team Description Date Type Department Shyla Kaye RN 09/12/2017 Abstract [facility] [address] [place] [address] Social History Date Tobacco Use Types Packs/Day [...] Type Specialty Mayank Novoa DO [address] [facility] [address] [place] [address] [phone] 06/17/2019 Appointment Pain Medicine Vikas Ross MD [address] [facility] [address] [place] [address] [phone] 07/03/2019 Office Visit Cardiology documented as of this encounter Visit Diagnoses Diagnosis Neuropathy Mononeuritis of unspecified site Essential hypertension Unspecified essential hypertension Mixed hyperlipidemia Obesity (BMI 30.0-34.9) Foot drop, left Other acquired deformity of ankle and f oot Edema of lower extremity documented in this encounter
--- OUTSIDE RECORDS SUMMARY | 2019-06-07 16:06 | XMS REPORT | Encounter Summary ---
Author Author [facility] Organization [facility] Address Unknown Phone Unavailable Care Team Providers Care Fishing Vessel Deckhand Name Role Phone SimmesportReynaldoy PCP Encounter Details Care Team Description Date Type Department Viksa Ross MD [address] [facility] [address] [place] [address] [phone] 08/14/2017 Documentation [facility] [address] [place] [address] [address] [place], [place] [address] Social History Date Tobacco Use Types Packs/Day [...] Date Type Specialty Mayank Novoa DO [address] [facility] [address] [place] [address] [phone] 06/17/2019 Appointment Pain Medicine Vikas Ross MD [address] [facility] [address] [place] [address] [phone] 07/03/2019 Office Visit Cardiology documented as of this encounter Visit Diagnoses Not on filedocumented in this encounter
--- OUTSIDE RECORDS SUMMARY | 2019-06-07 16:06 | XMS REPORT | Encounter Summary ---
Author Author [facility] Organization [facility] Address Unknown Phone Unavailable Care Team Providers Care Wildlife Control Agent Name Role Phone Shannon Falk PCP Encounter Details Care Team Description Date Type Department Frank Abdi MD [address] [facility] [address] [facility] [address] [place], [place] [id number] Radicular leg pain 09/21/2015 [facility] [address] [facility] [address] [place] [address] Social History Date Tobacco Use Types Packs/Day [...] LEVOTHROID) 75 MCG tablet by mouth daily. 08/26/2015 09/25/2015 oxyCODONE (ROXICODONE) 10 Take 1 tablet 60 tablet 0 mg immediate release (10 mg total) tablet by mouth 2 (two) times a day as needed. 09/15/2017 amLODIPine (NORVASC) 10 Take 10 mg by 0 MG tablet mouth daily. 05/14/2015 09/15/2017 atorvastatin (LIPITOR) 40 Take 40 mg by 0 MG tablet mouth nightly. 04/23/2015 12/26/2018 gabapentin (NEURONTIN) Take 300 mg 0 600 MG tablet by mouth 2 (two) times a day. 04/21/2015 09/15/2017 hydroxychloroquine Take 200 mg 0 (PLAQUENIL) 200 mg tablet by mouth 2 (two) times a day. 05/13/2015 09/15/2017 leflunomide (ARAVA) 20 MG Take 20 mg by 0 tabletIndications: mouth daily. rheumatoid arthritis 04/26/2015 10/31/2018 losartan (COZAAR) 100 MG Take 100 mg 0 tablet by mouth daily. documented as of this encounter Plan of Treatment Care Team Description Date Type Specialty Mayank Novoa DO [address] [facility] [address] [place] [address] [phone] 06/17/2019 Appointment Pain Medicine Vikas Ross MD [address] [facility] [address] [place] [address] [phone] 07/03/2019 Office Visit Cardiology documented as of this encounter Procedures Comments Procedure Name Priority Date/Time Associated Diag nosis XR LUMBAR SPINE 2 OR 3 Routine 09/21/2015 Radicul ar leg pain VIEWS 10:27 AM CDT documented in this encounter Results * XR Lumbar Spine 2 or 3 views (09/21/2015 10:27 AM CDT) Specimen Impressions Performed At IMPRESSION: KALIE 1. Stable postsurgical changes followin g interbody fusion and posterior instrumentation at L4-L5. 2. Unchanged alignment. 3. Mild lumbar spondylosis. ATTESTATION STATEMENT: The Staff Radiologist has personally re viewed this study and agrees with the findings in this report. READING SITE: [facility] The Staff Radiologist has personally re viewed the images and dictated, reviewed, or edited the final report. Narrative Performed At Patient: HARI OBRIEN Sex#: F # [id number] Abdirizak#: [id number] Location: [facility] XRAY Procedure Requested: [id number] XR LUMBA R SPINE 2 OR 3 VIEWS Reason for Exam: Radicular leg pain Exam Ordered: 09/21/2015 101 4 Exam Date/Time: 09/21/2015 1027 Begin exam date/time: 09/21/2015 1014 XR LUMBAR SPINE 2 OR 3 VIEWS (upri ght AP and lateral views) DATE: 09/21/2015 10:27 AM INDICATION: Radicular leg pain COMPARISON: 07/30/2015. FINDINGS: There are 5 nonrib-bearing lumbar-type vertebral bodies. There are stable postsurgical changes following i nterbody fusion and posterior instrumentation at L4-L5. Vertebral ali gnment is unchanged, with grade 1 anterolisthesis at L4-L5 and L5-S1 is a lso not significantly changed. Mild degenerative disc disease at the o ther levels and lower lumbar facet osteoarthritis is stable. Mild bilateral SI joint osteoarthritis. There is a chronic appearing fracture of the posterior medial left 1 2th rib. Procedure Note Interface, Rad Results In - 09/21/2015 1:12 PM CDT Patient: HARI OBRIEN Sex#: F # [id number] Abdirizak#: [id number] Location: [facility] XRAY Procedure Requested: [id number] XR LUMBAR SPINE 2 OR 3 VIEWS Reason for Exam: Radicular leg pain Exam Ordered: 09/21/2015 1014 Exam Date/Time: 09/21/2015 1027 Begin exam date/time: 09/21/2015 1014 XR LUMBAR SPINE 2 OR 3 VIEWS (upright AP and lateral views) DATE: 09/21/2015 10:27 AM INDICATION: Radicular leg pain COMPARISON: 07/30/2015. FINDINGS: There are 5 nonrib-bearing lumbar-type vertebral bodies. There are stable postsurgical changes following interbody fusion and posterior instrumentation at L4-L5. Vertebral alignment is unchanged, with grade 1 anterolisthesis at L4-L5 and L5-S1 is also not significantly changed. Mild degenerative disc disease at the other levels and lower lumbar facet osteoarthritis is stable. Mild bilateral SI joint osteoarthritis. There is a chronic appearing fracture of the posterior medial left 12th rib. IMPRESSION IMPRESSION: 1. Stable postsurgical changes following interbody fusion and posterior instrumentation at L4-L5. 2. Unchanged alignment. 3. Mild lumbar spondylosis. ATTESTATION STATEMENT: The Staff Radiologist has personally reviewed this study and agrees with the findings in this report. READING SITE: [facility] The Staff Radiologist has personally reviewed the images and dictated, reviewed, or edited the final report. Performing Organization Address City/State/[facility] Ph one Number KALIE documented in this encounter Visit Diagnoses Diagnosis Radicular leg pain documented in this encounter
--- OUTSIDE RECORDS SUMMARY | 2019-06-07 16:06 | XMS REPORT | Encounter Summary ---
Author Author [facility] Organization [facility] Address Unknown Phone Unavailable Care Team Providers Care Milling Machinist Name Role Phone Shannon Falk PCP Reason for Referral * Diagnostic Imaging (Routine) Referred By Contact Referred To Contact Status Reason Specialty Diagnoses / Procedures Vikas Ross MD [address] [place] [address] [facility] [address], [address] [place] [address] Closed Radiology Diagnoses Mixed hyperlipidemia Edema, unspecified type P rocedures US Vein Mapping w Duplex lower extremity bilat complete Reason for Visit * Diagnostic Imaging (Routine) Referred By Contact Referred To Contact Status Reason Specialty Diagnoses / Procedures Vikas Ross MD [address] [place] [address] [facility] [address], [address] [place] [address] Closed Radiology Diagnoses Mixed hyperlipidemia Edema, unspecified type P rocedures US Vein Mapping w Duplex lower extremity bilat complete Encounter Details Care Team Description Date Type Department Emily Bradshaw APRN [address] [place] [address] [phone] Mixed hyperlipidemia; Edema, unspecified type 10/30/2017 [facility] [address], [address] [place] [address] Social History Date Tobacco Use Types Packs/Day [...] Date Type Specialty Mayank Novoa DO [address] [facility] [address] [place] [address] [phone] 06/17/2019 Appointment Pain Medicine Vikas Ross MD [address] [facility] [address] [place] [address] [phone] 07/03/2019 Office Visit Cardiology documented as of this encounter Procedures Comments Procedure Name Priority Date/Time Associated Diag nosis US VEIN MAPPING W DUPLEX Routine 10/30/2017 Mixed hyperlipidemia LOWER EXTREMITY BILAT 10:11 AM CDT Edema, unspecif ied type COMPLETE documented in this encounter Results * US Vein Mapping w Duplex lower extremity bilat complete (10/30/2017 10:11 AM CDT) Specimen Impressions Performed At Findings impression: [facility]ALIE Right There is no right leg DVT. There is rig ht leg deep venous reflux within external iliac and common femoral vein. There is right greater saphenous insuff iciency of 0.5 seconds measuring 3.5 mm at the level of upper thigh. There is anterolateral saphenous insuff iciency measuring 3.3 mm at the level of proximal thigh. There is vein of Giacomini insufficienc y of 0.6 seconds measuring 2.3 mm Left There is no left leg DVT. There is left deep venous reflux within common femoral and deep femoral veins during augmentation. There is left greater saphenous venous insufficiency of 0.9 seconds measuring 3.9 mm at the level of proxim al thigh. There is anterolateral saphenous insuff iciency of 1.5 seconds measuring 5.8 mm at the level of proximal thigh w ith septations noted. There is left venous tributary insuffic iency of 1.6 seconds measuring 3.8 mm at the level of knee and distal thigh. Please see technologist vein mapping parisa spiecr attached to this report and grayscale and color Doppler images on [employer] archive. NOTE: Parts of this report were generated wit demandmart voice recognition software. J Digit Imagin2010;24(4):724-8. Narrative Performed At Patient: HARI OBRIEN Sex#: F # [id number] Abdirizak#: [id number] Location: [facility] US Procedure Requested: [id number] US VEIN MAPPING W DUPLEX LOWER EXTREMITY BILAT COMPLETE Reason for Exam: Mixed hyperlipidemia Exam Ordered: 10/30/2017 09 03 Exam Date/Time: 10/30/2017 101 1 Begin exam date/time: 10/30/2017 090 7 US VEIN MAPPING W DUPLEX LOWER EXTREMIT Y BILAT COMPLETE Indication: Mixed hyperlipidemia Edema, unspecified type READING SITE: [facility] Grayscale and duplex venous vein map ping of bilateral legs was performed. Procedure Note Interface, Rad Results In - 10/30/2017 11:50 AM CDT Patient: HARI OBRIEN Sex#: F # [id number] Abdirizak#: [id number] Location: [facility] US Procedure Requested: [id number] US VEIN MAPPING W DUPLEX LOWER EXTREMITY BILAT COMPLETE Reason for Exam: Mixed hyperlipidemia Exam Ordered: 10/30/2017 0903 Exam Date/Time: 10/30/2017 1011 Begin exam date/time: 10/30/2017 0907 US VEIN MAPPING W DUPLEX LOWER EXTREMITY BILAT COMPLETE Indication: Mixed hyperlipidemia Edema, unspecified type READING SITE: [facility] Grayscale and duplex venous vein mapping of bilateral legs was performed. IMPRESSION Findings impression: Right There is no right leg DVT. There is right leg deep venous reflux within external iliac and common femoral vein. There is right greater saphenous insufficiency of 0.5 seconds measuring 3.5 mm at the level of upper thigh. There is anterolateral saphenous insufficiency measuring 3.3 mm at the level of proximal thigh. There is vein of Giacomini insufficiency of 0.6 seconds measuring 2.3 mm Left There is no left leg DVT. There is left deep venous reflux within common femoral and deep femoral veins during augmentation. There is left greater saphenous venous insufficiency of 0.9 seconds measuring 3.9 mm at the level of proximal thigh. There is anterolateral saphenous insufficiency of 1.5 seconds measuring 5.8 mm at the level of proximal thigh wi th septations noted. There is left venous tributary insufficiency of 1.6 seconds measuring 3.8 mm at the level of knee and distal t high. Please see technologist vein mapping diagram attached to this report and grayscale and color Doppler images on PACS archive. NOTE: Parts of this report were generated with voice recognition software. J Digit Imagin2010;24(4):724-8. Performing Organization Address City/State/Zipcode Ph one Number KALIE documented in this encounter Visit Diagnoses Diagnosis Mixed hyperlipidemia Edema, unspecified type documented in this encounter
--- OUTSIDE RECORDS SUMMARY | 2019-06-07 16:06 | XMS REPORT | Encounter Summary ---
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 Refill 10/16/2017 Refill [facility] [address] [facility] [address] [place] [address] Social History Date Tobacco Use Types Packs/Day [...] Date Type Specialty Mayank Novoa DO [address] [facility] [address] [place] [address] [phone] 06/17/2019 Appointment Pain Medicine Vikas Ross MD [address] [facility] [address] [place] [address] [phone] 07/03/2019 Office Visit Cardiology Order Schedule Name Type Priority Associated Diag noses Expected: 12/15/2017, Expires: 9 Basic Metabolic Panel Lab Routine [facility] hypertension Edema of lower extremity documented as of this encounter Visit Diagnoses Diagnosis Essential hypertension Unspecified essential hypertension Edema of lower extremity documented in this encounter
--- OUTSIDE RECORDS SUMMARY | 2019-06-07 16:06 | XMS REPORT | Encounter Summary ---
Author Author [facility] Organization [facility] Address Unknown Phone Unavailable Care Team Providers Care Film Masker Name Role Phone Shannon Falk PCP Encounter Details Care Team Description Date Type Department Nikhil Brooke, [address] [facility] [address] [place], [place] [id number] Seropositive rheumatoid arthritis of [facility] ([facility]) 02/22/2017 [facility] Encounter [address] [place], [place] [id number] Social History Date Tobacco Use Types Packs/Day [...] 75 MCG tablet by mouth daily. 09/15/2017 amLODIPine (NORVASC) 10 Take 10 mg by 0 MG tablet mouth daily. 05/14/2015 09/15/2017 atorvastatin (LIPITOR) 40 Take 40 mg by 0 MG tablet mouth nightly. 09/24/2015 01/29/2018 cyclobenzaprine Take 1 tablet 60 [...] Novoa DO [address] [facility] [address] [place] [address] [phone] 06/17/2019 Appointment Pain Medicine Vikas Ross MD [address] [facility] [address] [place], [place] [id number] 07/03/2019 Office Visit Cardiology documented as of this encounter Procedures Comments Procedure Name Priority Date/Time Associated Diag nosis INFLIXIMAB (IFX) CONC+ Routine 02/22/2017 Seropos itive rheumatoid IFX AB 10:30 AM SEPARATING MACHINE OPERATOR arthritis of multip le sites (HCC) documented in this encounter Results * Infliximab (IFX) Conc+ IFX Ab (02/22/2017 10:30 AM SEPARATING MACHINE OPERATOR) Infliximab Drug 0.4 ug/mL SLRL Level Comment: [...] by a confirmatory test. References: 1. Zohreh Joyner, et al. Gastroenterol 2015;148:1320- 1329. 2. Najera BP, et al. Inflamm Bowel Dis 2014;20:3696-0953. 3. Yanicky A, et al. Gastroenterol 2016;150(4):V098-W475. 4. Wolbink GJ, et al. Sandra Rheum Dis 2005;64:704-707. 5. Stemary C, et al. Inflamm Bowel Dis 2012;18(12):2209- 2217. 6. Zohreh Joyner, et al. Am J Gastroenterol 2013;108:962- 971. 7. Korey H, et al. Clin Gastroenterol Hepatol 2015;13(3): 522-530. 8. Keerthi JF, et al. Gastroenterol 2016;150(4):S144. 9. Terell Rudd et al. AAPS Journal 2016 DOI:10.1208/[email or web address]- [id number]. These tests were developed and their performance characteristics determined by [employer]. 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
--- OUTSIDE RECORDS SUMMARY | 2019-06-07 16:06 | XMS REPORT | Encounter Summary ---
Author Author [facility] Organization [facility] Address Unknown Phone Unavailable Care Team Providers Care Relocation Associate Name Role Phone Shannon Falk PCP Reason for Referral * Diagnostic Imaging (Routine) Referred By Contact Referred To Contact Status Reason Specialty Diagnoses / Procedures Vikas Ross MD [address] [facility] [address] [place] [address] [facility] [address] [facility] [address] [facility] [place] [address] [place] [address] Closed Radiology Diagnoses Mixed hyperlipidemia Edema, unspecified type P rocedures US Vein Mapping w Duplex lower extremity bilat complete * Consultation (Routine) Referred By Contact Referred To Contact Status Reason Specialty Diagnoses / Procedures Vikas Ross MD [address] [facility] [address] [place] [address] [facility] [address] [facility] [address] [place] [address] Canceled Cardiology Diagnoses Mixed hyperlipidemia Edema, unspecified type * Diagnostic Imaging (Routine) Referred By Contact Referred To Contact Status Reason Specialty Diagnoses / Procedures Vikas Ross MD [address] [place] [address] [place] [address] Closed Diagnoses Mixed hyperlipidemia Edema, unspecified type P rocedures Electrocardiogram (ECG) Reason for Visit * Reason Comments Edema Encounter Details Care Team Description Date Type Department Vikas Ross MD [address] [place] [address] [place] [address] [phone] Edema of lower extremity (Primary Dx); Mixed hyperlipidemia; Edema, unspecified type; Essential hypertension; Obesity (BMI 30.0-34.9) 09/15/2017 Initial consult [facility] [address] [place] [address] Social History Date Tobacco Use Types Packs/Day [...] Signs Reading Time Taken Comments Vital Sign 141/84 09/15/2017 10:15 AM CDT Blood Pressure 67 09/15/2017 10:15 AM CDT reg Pulse - - Temperature - - Respiratory Rate - - Oxygen Saturation - - Inhaled Oxygen Concentration 86.8 kg (191 lb 6.4 oz) 09/15/2017 10:14 AM CDT Weight 162.6 cm (5' 4") 09/15/2017 10:14 AM CDT Height 32.85 09/15/2017 10:14 AM CDT Body Mass Index documented in this encounter Patient Instructions * Patient Instructions* Marimar Chew RN - 09/15/2017 10:[address] Ross's nurses with any questions or concerns. STOP Amlodipine (this may be causing some swelling). START Chlorthalidone 25 mg daily. Monitor blood pressures. Goal to keep blood pressure 130/80 or less. Track blo od pressures for 1-2 weeks, write down readings and call our office with results . Check blood work (BMP) in 2 weeks. Lab is in [facility], [place]. [address]. HOLD Atorvastatin 40 mg. See if you symptoms of muscle pain improves. Call our office in 2 weeks with how you are feeling off this medication. We will then d ecide to restart or start a different medication for cholesterol lowering. Follow up in the vein clinic. Follow up with Dr. Ross in 3 months, sooner if needed. Name:Dalila Obrien Date: 09/15/2017 Chart#: [id number] LIPID PROFILE RESULTS Cholesterol (no units) Date Value 09/15/2017 222 Total Cholesterol less than 190 HDL Cholesterol (mg/dL) Date Value 09/15/2017 53 High Density Lipoprotein or "Good" Cholesterol greater than 45 for men greater than 55 for women To Raise HDL: Quit smoking Increase [place] 3 fats in diet Lose weight Nuts (walnuts, almonds, pecans, 1/4 cup daily) Regular exercise Seeds (Monounsaturated fats) Estrogen replacement Eliminate hydrogenated fats LDL Cholesterol (mg/dL) Date Value 09/15/2017 117 Low Density Lipoprotein or "Bad" Cholesterol less than 70 in patients with CAD/CAD equivalent less than 100 for primary prevention patients To Lower LDL: Lose weight Limit saturated fats Exercise (Fat from animal sources) Change margarine/butter to Limit hydrogenated fat Take Control or Benecol brands Triglycerides (mg/dL) Date Value 09/15/2017 265 (A) Triglycerides less than 150 To Lower Triglycerides: Regular exercise Limit Sugar Limit saturated & hydrogenated fats Limit Starches (pastas, bagels, bread, Increase [place] 3 fats in diet crackers, and foods made with flour) Change oral to patch estrogen Lose weight No more than 1-2 alcoholic drinks per day No results found for: [id number] (Average blood sugar over prev 3mo-4mo) 4.4 - 5.6 Normal 5.7 6.4 Pre-Diabetes > 6.5 Diabetes Blood Sugar Glucose (mg/dL) Date Value 09/15/2017 114 Less than 100: normal 100-125: pre-diabetes 126+: diabetes To Lower blood sugar: Lose weight No more than 1-2 alcoholic drinks daily Exercise, limit sugar, limit starches (pasta, bagels, white bread, crackers, and goods made with white flour) Liver Enzymes No results found for: ALT, POCALT No results found for: AST, POCAST Vitamin D No results found for: [id number] Weight Vitals: 09/15/17 1014 Weight: 86.8 kg (191 lb 6.4 oz) Blood Pressure What is blood pressure? Blood pressure is the force of blood against the torre of arteries. Blood pressu re is recorded as two numbersthe systolic pressure (as the heart beats) over the diastolic pressure (as the heart relaxes between beats). The measurement is written one above or before the other. The systolic number is on top (or first) and the diastolic number is on the bottom (or second). For example, a blood pres sure measurement of 120/80 mm Hg (millimeters of mercury) is expressed verbally as 120 over 80. Optimal blood pressure is less than 120 mm Hg systolic and less than 80 mm Hg di astolic. Categories for blood pressure levels in adults* (Ages 18 Years and Older) Blood Pressure Level (mm Hg) Category Systolic Diastolic Normal Less than 120 Less than 80 Prehypertension 120-139 80-89 High Blood Pressure Stage 1 140-159 90-99 Stage 2 Greater than 160 Greater than 100 * For those not taking medicine for high blood pressure and not having a short-t erm serious illness. These categories are from the National High Blood Pressure Education Program. Optimal blood pressure with respect to heart disease risk is below 120/80 mm Hg. However, unusually low readings should be evaluated for clinical significance. What is "white coat" hypertension? If your doctor suspects white-coat hypertension, you may be asked to monitor you r blood pressure at home or to wear a device called an ambulatory blood press ure monitor. This device is usually worn for 24 hours and can take blood pres sure readings every 30 minutes. You can find out if you have high blood pressure by having your blood pressure c hecked regularly. Most doctors diagnose a person with high blood pressure on the basis of two or more readings taken on several occasions. A consistent blood pr essure reading of 140/90 mm Hg or higher is considered high blood pressure, anot her term for hypertension. What causes high blood pressure? In most cases the cause is not known. In a small number of people it may be due to kidney disease. The causes of high blood pressure vary. Causes may include na rrowing of the arteries, a aeqtsjd-ifpy-apglia volume of blood, or the heart melisa ting faster or more forcefully than it should. Any of these conditions increase the pressure of the blood against the artery torre. High blood pressure might al so be caused by another medical problem. There are factors that may increase a p ersons chance of developing the disease, including: Family members with a history of the disease -[place] Age (older than 35) control pills Overweight High sodium intake Inactive lifestyle Excessive alcohol intake Smoking Regardless of race, age, or gender, anyone can develop high blood pressure. Many Americans tend to develop high blood pressure as they get older but this is not a healthy part of aging. About 60% of those age 60 and over have high blood pre ssure. Once it develops, it usually lasts a lifetime so dont stop your medici ne just because you are feeling well. Although high blood pressure usually canno t be cured, in most cases it can be prevented or controlled. Treatment of high blood pressure It is important to take steps to keep your blood pressure under control. The paul atment goal is blood pressure below 140/90 mm Hg, and lower for people with othe r conditions, such as diabetes and kidney disease. New evidence suggests that bl ood pressure as low as 120/90 mm Hg may be helpful in all patients. Adopting hea lthy lifestyle habits is an effective first step in preventing and controlling h igh blood pressure. If lifestyle changes alone are not effective in keeping your pressure controlled, it may be necessary to add blood pressure medications. Healthier eating with dash (dietary approaches to stop hypertension) The DASH Eating Plan The DASH plan shown below is based on 2,000 calories a day. The number of daily servings in a food group may vary from those listed, depending on your caloric n eeds. Food Group Daily Servings (except as noted) Serving Sizes Grains & grain products 7-8 1 slice bread, 1 cup chesu-zd-oal cereal*, cup cooked rice, pasta, or cereal Vegetables 4-5 1 cup raw leafy vegetables, cup cooked vegetables, 6 oz vegeta ble juice Fruits 4-5 1 med fruit, cup dried fruit, cup fresh, frozen, or canned fru it, 6 oz fruit juice Lowfat or fat-free dairy foods 2-3 8 ounces mlk, 1 cup yogurt, 1 ounce cheese Lean meats, pultry, and fish 2 or fewer 3 ounces cooked lean meats, skinles poul try, or fish Nuts, seeds, and dry beans 4-5 per week 1/3 cup or 1 oz nuts, 1 tablespoon or 1 oz seeds, 1 cup cooked dry beans Fats and oils 2-3 1 teaspoon soft margarine,, 1 tablespoon lowfat mayonnaise, 2 tablespoons light salad dressing, 1 teaspoon vegetable oil Sweets 5 per week 1 tablespoon sugar, 1 tablespoon jelly or jam, 1 oz jelly beans, 8 oz lemonade Serving sizes vary between cereals. Check the products nutrition label. Fat content changes serving counts for fats and oils: For example, 1 tablespoon of regular salad dresing equals 1 serving; 1 tablespoon of lowfat dressing equal s 1 serving; 1 tablespoon of a fat free dressing equals 0 servings. Symptoms of high blood pressure High blood pressure (hypertension ) is a disease. Usually there are no obvious s ymptoms, andif left untreatedhigh blood pressure, over a long period of ti me, can cause permanent damage to the body, such as heart attack, kidney failure , blindness, heart failure, and stroke. It is important to have your blood press ure checked on a regular basis by your health care provider. Stroke High blood pressure is the most important risk factor for stroke. Very high pres sure can cause a break in a weakened blood vessel, which then bleeds in the brai n. This can cause a stroke. If a blood clot blocks one of the narrowed arteries, it can also cause a stroke. Impaired Vision High Blood pressure can eventually cause blood vessels in the eye to burst or bl eed. Vision may become blurred or otherwise impaired and can result in blindness . Arteries As people get older, arteries throughout the body harden, especially those in the heart, brain, and kidneys. High blood pressure is associated with these stiffer arteries. This, in turn, causes the heart and kidneys to work hard er. Kidney Damage The kidneys act as filters to rid the body of wastes. Over time, high blood pres ure can narrow and thicken the blood vessels of the kidneys. The kidneys filter less fluid, and waste builds up in the blood. The kidneys may fail altogether. W hen this happens, medical treatment (dialysis) or a kidney transplant may be nee ded. Heart Attack High blood pressure is a major risk factor for heart attack. The arteries bring oxygen-carrying blood to the heart muscle. If the heart cannot get enough oxygen , chest pain, also known as angina, can occur. If the blood is blocked, a heart attack results. Congestive Heart Failure High blood pressure is the number one risk factor for congestie heart failure (C HF). CHF is a serious condition in which the heart muscle is weakend and unable to pump enough blood to supply the bodys needs. Avoid certain medications than can raise blood pressure. These include non-st eroidal pain relievers like Advil (ibuprofen) or Aleve (naproxen), cont rol pills, prednisone, decongestants (like Sudafed or pseudoephedrine), and some diet pills. Talk to your physician who prescribed them about other alternatives. Lifestyle For suggestions on how to avoid hypertension, see the Prevention section o f: www.nhlbi.nih.gov, where you can find helpful tips regarding: ? Following a healthy eating pattern Reducing salt and sodium in your diet Maintaining a healthy weightbeing physically active Limiting alcohol intake Quitting smoking Other factors affecting blood pressure documented in this encounter Progress Notes * Vikas Ross MD - 09/15/2017 11:10 AM CDT [facility] [place] Appointment Date: 09/15/2017 Shannon Falk MD [address] [facility] [address] RE: Dalila Obrien : 1950 Visit provider: Vikas Ross MD Dear Shannon Falk MD, I had the pleasure of seeing Dalila Obrien in the office today. She is a(n) 67 y.o. female and presents with the following chief complaint(s): Edema HPI: Ms. Dalila Obrien is being seen in clinic today for cardiovascular evaluation. Ms. Obrien has been bothered by chronic bilateral lower extremity edema that has wors ened in the last year. She has had previous superficial venous insufficiency tr eatment in her left lower extremity that sounds like a vein stripping, which was performed approximately 10 years ago. She is on medical therapy for hypertensi on and dyslipidemia. She also has underlying rheumatoid arthritis and has tried multiple medications with little benefit to her joint pain. Recently, her Celeb frances was discontinued approximately a month ago due to concerns of lower extremit y edema but she has seen no improvement in her edema. She is miserable from an arthralgia perspective. She does have symmetrical lower extremity edema, slightl y worse possibly on the left. She has stigmata of chronic venous insufficiency w ith reticular and telangiectatic veins in both lower extremities and palpable va ricosities in the left lower extremity. Interestingly enough, she is on high-do se amlodipine, which certainly could contribute to her edema. I have therefore recommended stopping her amlodipine and starting chlorthalidone 25 mg daily. He r blood pressure goal should be less than 130/80. I have also recommended she r esume her Celebrex as she is having significant joint pain with this. I have al so asked her to hold her atorvastatin to see if this helps with her arthralgia a nd myalgia symptoms. She is to call me in 2 weeks with an update of her blood p ressure and her symptoms. I have also referred her to our vein clinic at [facility] for further evaluation of lower extremity venous insufficien cy as certainly this could be contributing to her edema. Patient Active Problem List Diagnosis SNOMED CT(R) Radicular leg pain RADICULAR PAIN RA (rheumatoid arthritis) ([facility]) RHEUMATOID ARTHRITIS Neuropathy NEUROPATHY Hypothyroidism HYPOTHYROIDISM [...] 30.0-34.9) Osteoarthritis HANDS, HIPS RA (rheumatoid arthritis) ([facility]) APPROX 10 YRS Radicular leg pain 05/25/2015 Rheumatoid arthritis of spine ([facility]) CERVICAL SPINE; HAS FULL ROM WITH NECK Sciatica DOWN LEFT LEG Urinary incontinence STRESS INCONTINENCE Past Surgical History: Procedure Laterality Date BUNIONECTOMY Right FRACTURE SURGERY Left CLAVICAL FX FUSION, SPINE, LUMBAR, INTERBODY, TRANSFORAMINAL APPROACH Left 07/28/2015 Procedure: L4-L5 FUSION TRANSFORAMINAL LUMBAR INTERBODY SPINE; Surgeon: Yue Abdi MD; Location: [facility]; Service: Neurosurgery; Laterality: Le ft; HYSTERECTOMY MARTY FUNDOPLICATION ROTATOR CUFF REPAIR Right TONSILLECTOMY AND ADENOIDECTOMY VEIN LIGATION AND STRIPPING Left Final Medications: Current Outpatient Prescriptions Medication Sig Dispense Refill citalopram (CELEXA) 20 MG tablet Take by mouth every morning. gabapentin (NEURONTIN) 600 MG tablet Take 600 mg by mouth 2 (two) times a da y. levothyroxine (SYNTHROID, LEVOTHROID) 75 MCG tablet Take 75 mcg by mouth jeffy ly. losartan (COZAAR) 100 MG tablet Take 100 mg by mouth daily. chlorthalidone (HYGROTON) 25 MG tablet Take 1 tablet (25 mg total) by mouth daily. 90 tablet 3 cyclobenzaprine (FLEXERIL) 10 MG tablet Take 1 tablet (10 mg total) by mouth 3 (three) times a day as needed for muscle spasms. 60 tablet 0 No current facility-administered medications for this visit. Allergies Allergen Reactions Sulfa (Sulfonamide Antibiotics) Hives Family History Problem Relation Age of Onset Hyperlipidemia Mother Hyperlipidemia Father COPD Father Stroke Father Heart attack Father Heart attack Brother Social History: Social History Substance Use Topics Smoking status: Never Smoker Smokeless tobacco: Never Used Alcohol use Yes Comment: RARELY Review of Systems Constitution: Positive for malaise/fatigue and night sweats. Negative for fever and weakness. HENT: Negative for nosebleeds. Eyes: Negative. Cardiovascular: Positive for chest pain, claudication, dyspnea on exertion and l eg swelling. Negative for cyanosis, irregular heartbeat, near-syncope, orthopnea , palpitations, paroxysmal nocturnal dyspnea and syncope. Respiratory: Positive for shortness of breath and snoring. Negative for cough, h emoptysis, sleep disturbances due to breathing and wheezing. Endocrine: Negative for cold intolerance and polydipsia. Hematologic/Lymphatic: Bruises/bleeds easily. Skin: Negative for rash. Musculoskeletal: Positive for joint pain and myalgias. Gastrointestinal: Negative for dysphagia, hematochezia, nausea and vomiting. Genitourinary: Negative for hematuria. Neurological: Positive for excessive daytime sleepiness, dizziness, light-headed ness, loss of balance, numbness and paresthesias. Negative for brief paralysis, disturbances in coordination and focal weakness. Psychiatric/Behavioral: Negative for depression. All other systems reviewed and are negative. Vital Signs 09/15/17 1014 09/15/17 1015 BP: (!) 141/64 (!) 141/84 Pulse: (!) 57 67 Weight: 86.8 kg (191 lb 6.4 oz) Height: 1.626 m (5' 4") BMI: Body mass index is 32.85 kg/m. Physical Exam Constitutional: No distress. Obese [...] There is no guarding. Musculoskeletal: She exhibits edema. BLE 1+ edema Neurological: She is alert. Skin: Skin is warm. Capillary refill takes less than 2 seconds. Multiple spider and reticular veins Psychiatric: She has a normal mood and affect. Her behavior is normal. Judgment and thought content normal. Vitals reviewed. Cholesterol (no units) Date Value 09/15/2017 222 HDL Cholesterol (mg/dL) Date Value 09/15/2017 53 Triglycerides (mg/dL) Date Value 09/15/2017 265 (A) LDL Cholesterol Date/Time Value Ref Range Status 09/15/2017 10:16 AM 117 mg/dL Final Encounter Diagnoses Name Primary? Edema of lower extremity Yes Mixed hyperlipidemia Edema, unspecified type Essential hypertension Obesity (BMI 30.0-34.9) Impression: 1. Bilateral lower extremity edema, likely of mixed etiology. 2. History of venous insufficiency of the left lower extremity. 3. Essential hypertension. 4. Rheumatoid arthritis, polyarticular. 5. Obesity, with a body mass index of 32.8. 6. Hypercholesterolemia. Plan: 1. Again, we will stop her amlodipine, start chlorthalidone, and she is to call in 2 weeks with an update of her blood pressure. She will have a BMP in 2 weeks as well to check her potassium and her sodium. She is on losartan, so this alonzo uld help counteract the hypokalemia that could be associated with chlorthalidone . 2. Her blood pressure goal should be less 130/80. 3. We will refer her to our vein clinic for further evaluation of her lower ext remity edema, which undoubtedly is being contributed to by the presence of venou s insufficiency. 4. She needs to lose weight, and we discussed this today. 5. We will hold her atorvastatin to see if this helps with her myalgias/arthral gias symptoms. 6. She will follow up with me as scheduled. Treatment goals, progress and next steps, as above, were discussed and mutually agreed upon with the patient/family. Thank you for allowing me to participate in Dalila Obrien's care. If I can be of a ny further assistance, please do not hesitate to contact me. Sincerely, Vikas Ross MD /[facility] documented in this encounter Plan of Treatment Care Team Description Date Type Specialty Mayank Novoa DO [address] [facility] [address] [place] [address] [phone] 06/17/2019 Appointment Pain Medicine Vikas Ross MD [address] [facility] [address] [place], [place] [id number] 07/03/2019 Office Visit Cardiology Order Schedule Name Type Priority Associated Diag noses 1 Occurrences starting 09/15/2017 until 09/15/2018 Amb Referral to Vein Outpatient Routine Mixed hyp erlipidemia Clinic Referral Edema, unspecified type documented as of this encounter Procedures Comments Procedure Name Priority Date/Time Associated Diag nosis POCT LIPID PANEL Routine 09/15/2017 Mixed hyperli pidemia 10:16 AM CDT Edema, unspecified type ECG Routine 09/15/2017 Mixed hyperlipi demia 10:12 AM CDT Edema, unspecified type documented in this encounter Results * US Vein Mapping w Duplex lower extremity bilat complete (10/30/2017 10:11 AM CDT) Specimen Impressions Performed At Findings impression: [place] Right There is no right leg DVT. [...] thigh. Please see technologist vein mapping parisa spicer attached to this report and grayscale and color Doppler images on [employer] archive. NOTE: Parts of this report were generated wit [employer] voice recognition software. J Digit Imagin2010;24(4):724-8. Narrative Performed At Patient: DALILA OBRIEN Sex#: F # [id number] Abdirizak#: [id number] Location: [facility] US Procedure Requested: [id number] US VEIN MAPPING W DUPLEX LOWER EXTREMITY BILAT COMPLETE Reason for Exam: Mixed hyperlipidemia Exam Ordered: 10/30/2017 09 03 Exam Date/Time: 10/30/2017 101 1 Begin exam date/time: 10/30/2017 090 7 US VEIN MAPPING W DUPLEX LOWER EXTREMIT Y BILAT COMPLETE Indication: Mixed hyperlipidemia Edema, unspecified type READING SITE: [facility] Grayscale and duplex venous vein map ping of bilateral legs was performed. Procedure Note Interface, Rad Results In - 10/30/2017 11:50 AM CDT Patient: DALILA OBRIEN Sex#: F # [id number] Abdirizak#: [id number] Location: [facility] US Procedure Requested: [id number] US VEIN MAPPING W DUPLEX LOWER EXTREMITY BILAT COMPLETE Reason for Exam: Mixed hyperlipidemia Exam Ordered: 10/30/2017 0903 Exam Date/Time: 10/30/2017 1011 Begin exam date/time: 10/30/2017 0907 US VEIN MAPPING W DUPLEX LOWER EXTREMITY BILAT COMPLETE Indication: Mixed hyperlipidemia Edema, unspecified type READING SITE: [facility] Grayscale and duplex venous vein mapping of [...] Organization Address City/State/Zipcode Ph one Number KALIE * Basic Metabolic Panel (09/29/2017 10:01 AM CDT) Sodium 138 133 - 147 MEQ/L [facility] Potassium 4.9 3.5 - 5.3 ME[facility]/L [facility] Chloride 99 96 - 112 [facility] Carbon Dioxide 29 20 - 32 [facility] Anion Gap 10 5 - 17 [facility] Calcium 10.4 8.4 - 10.5 mg/dL [facility] Glucose 125 (H) 70 - 100 mg/dL [facility] Blood Urea 23 7 - 26 mg/dL [facility] Creatinine 0.9 0.4 - 1.1 mg/dL [facility] eGFR Female AA 75 60 - 200 [facility] Comment: REGIONAL Chronic Kidney Disease less LABORATORIES than 60 mL/min/1.73 sq.m Kidney failure less than 15 mL/min/1.73 sq.m eGFR Female 62 60 - 200 [facility] Non-AA Comment: REGIONAL Chronic Kidney Disease less LABORATORIES than 60 mL/min/1.73 sq.m Kidney failure less than 15 mL/min/1.73 sq.m Specimen Blood Performing Organization Address City/State/Zipcode Ph one Number [facility] [address] [address] LABORATORIES * POCT Lipid Panel with Glucose - [facility] (09/15/2017 10:16 AM CDT) Cholesterol 222 HDL Cholesterol 53 35 - 70 mg/dL Triglycerides 265 (A) 40 - 160 mg/dL LDL Cholesterol 117 mg/dL Non-HDL 170 Cholesterol Cholesterol/HDL 2.2 Ratio Glucose 114 mg/dL Specimen Blood * Electrocardiogram (ECG) (09/15/2017 10:12 AM CDT) QRSd 95 [facility] QT 439 [facility] QTC 428 [facility] ECGHR 57 [facility] ECGPR 171 [facility] Specimen Narrative Performed At [facility] [place] Test Date: 2017-09-15 Pat Name: DALILA OBRIEN Department: [facility] Room: Gender: Female Developer Relations Manager: [id number] : 1950 Requested By: VIKAS ROSS Order Number: [id number] Reading MD: Vikas Ross Measurements Intervals Mineral Rate: 57 P: 49 AL: 171 QRS: 64 QRSD: 95 T: 49 QT: 439 QTc: 428 Interpretive Statements Sinus rhythm Electronically Signed On 09-19-2017 7:54 :37 CDT by Vikas Ross Procedure Note Interface, External Ris In - 09/19/2017 7:54 AM CDT [facility] [place] Test Date: 2017-09-15 Pat Name: [employer] [facility] [employer] Department: [facility] Room: Gender: Female Developer Relations Manager: [id number] : 1950 Requested By: VIKAS ROSS Order Number: [id number] Reading MD: Vikas Ross Measurements Intervals Mineral Rate: 57 P: 49 AL: 171 QRS: 64 QRSD: 95 T: 49 QT: 439 QTc: 428 Interpretive Statements Sinus rhythm Electronically Signed On 09-19-2017 7:54:37 CDT by Vikas Ross Performing Organization Address City/State/Zipcode Ph one Number [facility] documented in this encounter Visit Diagnoses Diagnosis Edema of lower extremity Mixed hyperlipidemia Edema, unspecified type Essential hypertension Unspecified essential hypertension Obesity (BMI 30.0-34.9) documented in this encounter
--- OUTSIDE RECORDS SUMMARY | 2019-06-07 16:06 | XMS REPORT | Encounter Summary ---
Author Author [facility] Organization [facility] Address Unknown Phone Unavailable Care Team Providers Care Ssis Ssrs Developer Name Role Phone Shannon Falk PCP Reason for Referral * Diagnostic Imaging (Routine) Referred By Contact Referred To Contact Status Reason Specialty Diagnoses / Procedures Nikhil Brooke DO [address] [facility] [address] [place] [address] Closed Diagnoses Localized edema P rocedures US Venous Duplex Lower Extremity left Encounter Details Care Team Description Date Type Department Nikhil Brooke DO [address] [facility] [address] [place], [place] [id number] Localized edema (Primary Dx) 08/08/2017 Transcribe [facility] [address] [place] [address] Social History Date Tobacco Use Types Packs/Day [...] Date Type Specialty Mayank Novoa DO [address] [facility] [address] [place] [address] [phone] 06/17/2019 Appointment Pain Medicine Vikas Ross MD [address] [facility] [address] [place] [address] [phone] 07/03/2019 Office Visit Cardiology documented as of this encounter Results * US Venous Duplex Lower Extremity left (08/08/2017 1:13 PM CDT) Specimen Impressions Performed At No evidence of deep venous thrombosis in the left low er extremity. KALIE Reading Site: [facility] Narrative Performed At Patient: HARI OBRIEN Sex#: F # [id number] Abdirizak#: [id number] Location: US Procedure Requested: [id number] US VENOU S DUPLEX LOWER EXTREMITY LEFT Reason for Exam: Localized edema Exam Ordered: 08/08/2017 12 39 Exam Date/Time: Begin exam date/time: 08/08/2017 124 0 LEFT LOWER EXTREMITY VENOUS DOPPLER KENISHA DY INDICATION: left lower extremity swel ling COMPARISON: None TECHNIQUE: Ultrasound evaluation of the deep veins in the left leg were performed using real time, duplex and c olor Doppler imaging. The deep veins were studied from the groin to th e calf. FINDINGS: There is no evidence of venous thrombos is within the visualized deep veins of the left lower extremity. No a bnormality of compressibility, augmentation or color-flow demonstrated . Procedure Note Interface, Rad Results In - 08/08/2017 1:13 PM CDT Patient: HARI OBRIEN Sex#: F # [id number] Abdirizak#: [id number] Location: US Procedure Requested: [id number] US VENOUS DUPLEX LOWER EXTREMITY LEFT Reason for Exam: Localized edema Exam Ordered: 08/08/2017 1239 Exam Date/Time: Begin exam date/time: 08/08/2017 1240 LEFT LOWER EXTREMITY VENOUS DOPPLER STUDY INDICATION: left lower extremity swelling COMPARISON: None TECHNIQUE: Ultrasound evaluation of the deep veins in the left leg were performed using real time, duplex and color Doppler imaging. The deep veins were studied from the groin to the calf. FINDINGS: There is no evidence of venous thrombosis within the visualized deep veins of the left lower extremity. No abnormality of compressibility, augmentation or color-flow demonstrated. IMPRESSION No evidence of deep venous thrombosis in the left lower extremity. Reading Site: [facility] Performing Organization Address City/State/Zipcode Ph one Number [facility] documented in this encounter Visit Diagnoses Diagnosis Localized edema Edema documented in this encounter
--- OUTSIDE RECORDS SUMMARY | 2019-06-07 16:06 | XMS REPORT | Encounter Summary ---
Author Author [facility] Organization [facility] Address Unknown Phone Unavailable Care Team Providers Care Sample Paster Name Role Phone [place], Shannon PCP Encounter Details Care Team Description Date Type Department Frank Abdi MD [address] [facility] [address] [place] [address] [phone] 11/12/2015 Documentation [facility] [address] [facility], [address] [place] [address] Social History Date Tobacco Use Types Packs/Day [...] Date Type Specialty Mayank Novoa DO [address] [facility] [address] [place] [address] [phone] 06/17/2019 Appointment Pain Medicine Vikas Ross MD [address] [facility] 230 [place] [address] [phone] 07/03/2019 Office Visit Cardiology documented as of this encounter Visit Diagnoses Not on filedocumented in this encounter
--- OUTSIDE RECORDS SUMMARY | 2019-06-07 16:06 | XMS REPORT | Encounter Summary ---
Author Author [facility] Organization [facility] Address Unknown Phone Unavailable Care Team Providers Care Senior Litigation Paralegal Name Role Phone Shannon Falk PCP Encounter Details Care Team Description Date Type Department Shannon Falk MD [address] [place] [address] Hypertension, unspecified type; Hypothyroidism, unspecified type 09/29/2017 Lab [facility] [address] [facility] 140 [place], [place] [id number] Social History Date Tobacco Use Types Packs/Day [...] Date Type Specialty Mayank Novoa DO [address] [facility] [address] [place] [address] [phone] 06/17/2019 Appointment Pain Medicine Vikas Ross MD [address] [facility] [address] [place] [address] [phone] 07/03/2019 Office Visit Cardiology documented as of this encounter Procedures Comments Procedure Name Priority Date/Time Associated Diag nosis THYROID STIMULATING Routine 09/29/2017 Hypertensi on, unspecified HORMONE 10:01 AM CDT type Hypothyroidism, unspecified type T4 FREE Routine 09/29/2017 Hypertension, u nspecified 10:01 AM CDT type Hypothyroidism, unspecified type COMPREHENSIVE METABOLIC Routine 09/29/2017 Hypert ension, unspecified PANEL 10:01 AM CDT type Hypothyroidism, unspecified type CBC AND DIFF (MANUAL DIFF Routine 09/29/2017 Hype rtension, unspecified IF NECESSARY) 10:01 AM CDT type Hypothyroidism, unspecified type documented in this encounter Results * Comprehensive Metabolic Panel (09/29/2017 10:01 AM CDT) Sodium 139 133 - 147 MEQ/L [facility] Potassium 4.7 3.5 - 5.3 MEQ/L [facility] Chloride 99 96 - 112 MEQ/L [facility] Carbon Dioxide 29 20 - 32 MEQ/L [facility] Anion Gap 11 5 - 17 [facility] Calcium 10.1 8.4 - 10.5 mg/dL [facility] Glucose 124 (H) 70 - 100 mg/dL [facility] Protein Total 7.4 6.0 - 8.2 g/dL [facility] Serum [facility]ATORIES Albumin 4.2 3.5 - 5.0 g/dL [facility] Alkaline 99 42 - 140 IU/L [facility] Phosphatase [facility] Alanine 19Comment: ALT reference range 0 - 34 IU/L [facility] Aminotransferas changed on 08-29-2017 REGIONAL e LABORATORIES Aspartate 31 15 - 46 IU/L [facility] Aminotransferas [facility] e LABORATORIES Bilirubin Total 0.6 0.2 - 1.3 mg/dL [facility] Blood Urea 22 7 - 26 mg/dL [facility] Nitrogen [facility] Creatinine 0.9 0.4 - 1.1 mg/dL [facility] eGFR Female AA 75 60 - 200 [facility] Comment: REGIONAL Chronic Kidney Disease less LABORATORIES than 60 mL/min/1.73 sq.m Kidney failure less than 15 mL/min/1.73 sq.m eGFR Female 62 60 - 200 [facility] Non-AA Comment: REGIONAL Chronic Kidney Disease less LABORATORIES than 60 mL/min/1.73 sq.m Kidney failure less than 15 mL/min/1.73 sq.m Specimen Blood Performing Organization Address City/State/Zipcode Ph one Number [facility] [address] [place] [address] LABORATORIES * CBC and Diff (manual diff if necessary) (09/29/2017 10:01 AM CDT) WBC 6.12 4.00 - 11.00 TH/uL [facility] RBC 4.42 4.00 - 5.00 MIL/uL [facility] Hemoglobin 13.2 12.0 - 15.0 g/dL [facility] Hematocrit 40 36 - 45 % [facility] MCV 90 80 - 99 fL [facility] MCH 30 27 - 34 pg [facility] MCHC 33 32 - 36 % [facility] RDW 12.1 9.0 - 14.5 % [facility] Platelet Count 263 140 - 400 TH/uL [facility] MPV 11.6 9.4 - 12.3 fL [facility] Nucleated RBCs 0 0 - 0 /100 [facility] % Neutrophils 50 45 - 78 % [facility] %Lymphocytes 36 15 - 47 % [facility] %Monocytes 11 0 - 12 % [facility] %Eosinophils 2 0 - 7 % [facility] %Basophils 1 0 - 2 % [facility] % Imm Grans 1 0 - 1 % [facility] # Granulocytes 3.08 1.70 - 6.80 TH/uL [facility] # Lymphocytes 2.20 1.00 - 3.30 TH/uL [facility] # Monocytes 0.64 0.20 - 0.90 TH/uL [facility] # Eosinophils 0.14 0.00 - 0.40 TH/uL [facility] # Basophils 0.06 0.00 - 0.10 TH/uL [facility] LABORATORIES Specimen Blood Performing Organization Address [facility] one Number [address] [address] LABORATORIES * T4 Free (09/29/2017 10:01 AM CDT) T4 Free 1.4 0.8 - 2.2 ng/dL [facility] LABORATORIES Specimen Blood Performing Organization Address [facility] one Number [facility] [address] [address] LABORATORIES * Thyroid Stimulating Hormone (09/29/2017 10:01 AM CDT) Thyroid 0.82 0.47 - 4.68 uIU/mL [facility] Hormone LABORATORIES Specimen Blood Performing Organization Address [facility] one Number [facility] [address] [address] LABORATORIES documented in this encounter Visit Diagnoses Diagnosis Hypertension, unspecified type Hypothyroidism, unspecified type documented in this encounter
--- OUTSIDE RECORDS SUMMARY | 2019-06-07 16:06 | XMS REPORT | Encounter Summary ---
Author Author [facility] Organization [facility] Address Unknown Phone Unavailable Care Team Providers Care Intel Recruiter Name Role Phone [place], Shannon PCP Encounter Details Care Team Description Date Type Department Frank Abdi MD [address] [facility] [address] [place] [address] [phone] Canceled (Provider) 09/28/2015 Office Visit [facility] [address] [place] [address] Social History Date Tobacco Use Types Packs/Day [...] Date Type Specialty Mayank Novoa DO [address] [facility] [address] [place] [address] [phone] 06/17/2019 Appointment Pain Medicine Vikas Ross MD [address] [facility] [address] [place] [address] [phone] 07/03/2019 Office Visit Cardiology documented as of this encounter Visit Diagnoses Not on filedocumented in this encounter
--- OUTSIDE RECORDS SUMMARY | 2019-06-07 16:06 | XMS REPORT | Encounter Summary ---
Author Author [facility] Organization [facility] Address Unknown Phone Unavailable Care Team Providers Care Sounding Device Operator Name Role Phone Shannon Falk PCP Reason for Visit * Reason Comments Correspondence Encounter Details Care Team Description Date Type Department Cassandra Justice RN Correspondence 09/19/2017 Telephone [facility] [address] [facility] [address] [place] [address] Social History Date Tobacco Use Types Packs/Day [...] encounter Miscellaneous Notes * Telephone Encounter - Cassandra Justice RN - 09/19/2017 4:49 PM CDT Patient called and left inquiring about vein clinic follow up, reports she abernathy s not received a call from them. Chart shows patient has not been able to be johnny ched. Attempted to reach patient and message asked for remote access code, unabl e to reach patient. documented in this encounter Plan of Treatment Care Team Description Date Type Specialty Mayank Novoa DO [address] [facility] [address] [place] [address] [phone] 06/17/2019 Appointment Pain Medicine Vikas Ross MD [address] [facility] [address] [place] [address] [phone] 07/03/2019 Office Visit Cardiology documented as of this encounter Visit Diagnoses Not on filedocumented in this encounter
--- OUTSIDE RECORDS SUMMARY | 2019-06-07 16:06 | XMS REPORT | Encounter Summary ---
Author Author [facility] Organization [facility] Address Unknown Phone Unavailable Care Team Providers Care Home Care Rn Name Role Phone Shannon Falk PCP Encounter Details Care Team Description Date Type Department Shannon Falk MD [address] [facility] [place] [address] Hypertension, unspecified type (Primary Dx); Hypothyroidism, unspecified type 09/29/2017 [facility]cribe [facility] [address] [facility] 140 [place] [address] Social History Date Tobacco Use Types Packs/Day [...] Date Type Specialty Mayank Novoa DO [address] [facility] [address] [place] [address] [phone] 06/17/2019 Appointment Pain Medicine Vikas Ross MD [address] [facility] [address] [place] [address] [phone] 07/03/2019 Office Visit Cardiology documented as of this encounter Results * Comprehensive Metabolic Panel (09/29/2017 10:01 AM CDT) Sodium 139 133 - 147 MEQ/L [facility] Potassium 4.7 3.5 - 5.3 MEQ/L [facility] Chloride 99 96 - 112 MEQ/L [facility] Carbon Dioxide 29 20 - 32 MEQ/L [facility] Anion Gap 11 5 - 17 [facility] Calcium 10.1 8.4 - 10.5 mg/dL [facility] Glucose 124 (H) 70 - 100 mg/dL [facility] Protein Total 7.4 6.0 - 8.2 g/dL [facility] Serum [facility]ATORIES Albumin 4.2 3.5 - 5.0 g/dL [facility] Alkaline 99 42 - 140 IU/L [facility] Phosphatase [facility] Alanine 19Comment: ALT reference range 0 - 34 IU/L [facility] Aminotransferas changed on 08-29-2017 REGIONAL e LABORATORIES Aspartate 31 15 - 46 IU/L [facility] Aminotransferas [facility] e LABORATORIES Bilirubin Total 0.6 0.2 - 1.3 mg/dL [facility] Blood Urea 22 7 - 26 mg/dL [facility] Nitrogen [facility] Creatinine 0.9 0.4 - 1.1 mg/dL [facility] eGFR Female AA 75 60 - 200 [facility] Comment: REGIONAL Chronic Kidney Disease less LABORATORIES than 60 mL/min/1.73 sq.m Kidney failure less than 15 mL/min/1.73 sq.m eGFR Female 62 60 - 200 [facility] Non-AA Comment: REGIONAL Chronic Kidney Disease less LABORATORIES than 60 mL/min/1.73 sq.m Kidney failure less than 15 mL/min/1.73 sq.m Specimen Blood Performing Organization Address City/State/Zipcode Ph one Number [facility] [address] [place] [address] LABORATORIES * CBC and Diff (manual diff if necessary) (09/29/2017 10:01 AM CDT) WBC 6.12 4.00 - 11.00 TH/uL [facility] LAB[facility]ATOR[facility] RBC 4.42 4.00 - 5.00 MIL/uL [facility] Hemoglobin 13.2 12.0 - 15.0 g/dL [facility] Hematocrit 40 36 - 45 % [facility] MCV 90 80 - 99 fL [facility] MCH 30 27 - 34 pg [facility] MCHC 33 32 - 36 % [facility] RDW 12.1 9.0 - 14.5 % [facility] Platelet Count 263 140 - 400 TH/uL [facility] MPV 11.6 9.4 - 12.3 fL [facility] Nucleated RBCs 0 0 - 0 /100 [facility] % Neutrophils 50 45 - 78 % [facility] %Lymphocytes 36 15 - 47 % [facility] %Monocytes 11 0 - 12 % [facility] %Eosinophils 2 0 - 7 % [facility] %Basophils 1 0 - 2 % [facility] % Imm Grans 1 0 - 1 % [facility] # Granulocytes 3.08 1.70 - 6.80 TH/uL [facility] LABORATORIES # Lymphocytes 2.20 1.00 - 3.30 TH/uL [facility] LABORATORIES # Monocytes 0.64 0.20 - 0.90 TH/uL [facility] LABORATORIES # Eosinophils 0.14 0.00 - 0.40 TH/uL [facility] LABORATORIES # Basophils 0.06 0.00 - 0.10 TH/uL [facility] Specimen Blood Performing Organization Address City/[facility] [address]/[facility] Ph one Number [address] [address] LABORATORIES * T4 Free (09/29/2017 10:01 AM CDT) T4 Free 1.4 0.8 - 2.2 ng/dL [facility] LABORATORIES Specimen Blood Performing Organization Address City/[facility] [address]/[facility] one Number [address] [address] LABORATORIES * Thyroid Stimulating Hormone (09/29/2017 10:01 AM CDT) Thyroid 0.82 0.47 - 4.68 uIU/mL [facility] Hormone LABORATORIES Specimen Blood Performing Organization Address City/State/Zipcode Ph one Number [address] [address] LABORATORIES documented in this encounter Visit Diagnoses Diagnosis Hypertension, unspecified type Hypothyroidism, unspecified type documented in this encounter
--- OUTSIDE RECORDS SUMMARY | 2019-06-07 16:06 | XMS REPORT | Encounter Summary ---
Author Author [facility] Organization [facility] Address Unknown Phone Unavailable Care Team Providers Care High Pressure Kettle Operator Name Role Phone Shannon Falk PCP Encounter Details Care Team Description Date Type Department Frank Abdi MD [address] [facility] [address] [place] [address] [phone] 09/23/2015 [facility] [address] [place], [place] [id number] Social History Date Tobacco Use Types Packs/Day Years Used Never Smoker Drinks/Week oz/Week Comments Alcohol Use RARELY Yes Sex Assigned at Date Recorded Female Industry Job Start Date Occupation Not on file Not on file Not on file Travel End Travel History Travel Start No recent travel history available. documented as of this encounter Miscellaneous Notes * Telephone Encounter - Cecile Marie - 09/23/2015 9:20 AM CDT Pt called in returning Yobany's call. Pt can be reached at [phone] before 11 am or after 3 pm. documented in this encounter Plan of Treatment Care Team Description Date Type Specialty Mayank Novoa DO [address] [facility] [address] [place] [address] [phone] 06/17/2019 Appointment Pain Medicine Vikas Ross MD [address] [place] [address] [phone] 07/03/2019 Office Visit Cardiology documented as of this encounter Visit Diagnoses Not on filedocumented in this encounter
--- OUTSIDE RECORDS SUMMARY | 2019-06-07 16:06 | XMS REPORT | Encounter Summary ---
Author Author [facility] Organization [facility] Address Unknown Phone Unavailable Care Team Providers Care Pig Lead Melter Helper Name Role Phone [place], Shannon PCP Encounter Details Care Team Description Date Type Department Vikas Ross MD [address] [place] [address] [phone] Mixed hyperlipidemia; Edema, unspecified type 09/29/2017 Lab [facility] [address] [facility] [address] [place] [address] Social History Date Tobacco Use Types Packs/Day [...] Date Type Specialty Mayank Novoa DO [address] [facility] [address] [place] [address] [phone] 06/17/2019 Appointment Pain Medicine Vikas Ross MD [address] [facility] [address] [place] [address] [phone] 07/03/2019 Office Visit Cardiology documented as of this encounter Procedures Comments Procedure Name Priority Date/Time Associated Diag nosis BASIC METABOLIC PANEL Routine 09/29/2017 Mixed hy perlipidemia 10:01 AM CDT Edema, unspecified type documented in this encounter Results * Basic Metabolic Panel (09/29/2017 10:01 AM CDT) Sodium 138 133 - 147 MEQ/L [facility] Potassium 4.9 3.5 - 5.3 MEQ/L [facility] Chloride 99 96 - 112 MEQ/L [facility] Carbon Dioxide 29 20 - 32 MEQ/L [facility] Anion Gap 10 5 - 17 [facility] Calcium 10.4 8.4 - 10.5 mg/dL [facility] Glucose 125 (H) 70 - 100 mg/dL [facility] Blood Urea 23 7 - 26 mg/dL [facility] Creatinine 0.9 0.4 - 1.1 mg/dL [facility] eGFR Female AA 75 60 - 200 [facility] Comment: REGIONAL Chronic Kidney Disease less LABORATORIES than 60 mL/min/1.73 sq.m Kidney failure less than 15 mL/min/1.73 sq.m eGFR Female 62 60 - 200 [facility] Non-AA Comment: REGIONAL Chronic Kidney Disease less LABORATORIES than 60 mL/min/1.73 sq.m Kidney failure less than 15 mL/min/1.73 sq.m Specimen Blood Performing Organization Address City/State/Zipcode Ph one Number [address] [address] LABORATORIES documented in this encounter Visit Diagnoses Diagnosis Mixed hyperlipidemia Edema, unspecified type documented in this encounter
--- OUTSIDE RECORDS SUMMARY | 2019-06-07 16:06 | XMS REPORT | Encounter Summary ---
Author Author [facility] Organization [facility] Address Unknown Phone Unavailable Care Team Providers Care Counter Checker Name Role Phone Shannon Falk PCP Reason for Visit * Diagnostic Imaging (Routine) Referred By Contact Referred To Contact Status Reason Specialty Diagnoses / Procedures Nikhil Brooke DO [address] [place] [address] Closed Diagnoses Localized edema P rocedures US Venous Duplex Lower Extremity left Encounter Details Care Team Description Date Type Department Localized edema 08/08/2017 Imaging [facility] Radiol ogy Appointment [address] [place] [address] Social History Date Tobacco Use Types Packs/Day [...] Date Type Specialty Mayank Novoa DO [address] [facility] [address] [place] [address] [phone] 06/17/2019 Appointment Pain Medicine Vikas Ross MD [address] [place] [address] [phone] 07/03/2019 Office Visit Cardiology documented as of this encounter Procedures Comments Procedure Name Priority Date/Time Associated Diag nosis US VENOUS DUPLEX LOWER Routine 08/08/2017 Localiz ed edema EXTREMITY LEFT 1:13 PM CDT documented in this encounter Results * US Venous Duplex Lower Extremity left (08/08/2017 1:13 PM CDT) Specimen Impressions Performed At No evidence of deep venous thrombosis in the left low er extremity. KALIE Reading Site: [facility] Narrative Performed At Patient: HARI OBRIEN Sex#: F # [id number] Abdirizak#: [id number] Location: [place] Procedure Requested: [id number] US VENOU S DUPLEX LOWER EXTREMITY LEFT [...] HARI OBRIEN Sex#: F # [id number] Abdirizak#: [id number] Location: [place] Procedure Requested: [id number] US VENOUS DUPLEX LOWER EXTREMITY LEFT Reason [...] in the left lower extremity. Reading Site: [facility] Performing Organization Address City/State/Zipcode Ph one Number KALIE documented in this encounter Visit Diagnoses Diagnosis Localized edema Edema documented in this encounter
--- OUTSIDE RECORDS SUMMARY | 2019-06-07 16:07 | XMS REPORT | Encounter Summary ---
Author Author [facility] Organization [facility] Address Unknown Phone Unavailable Care Team Providers Care Loss Prevention Representative Name Role Phone Shannon Falk PCP Reason for Visit * Auth/Cert (Routine) Referred By Contact Referred To Contact Status Reason Specialty Diagnoses / Procedures Yobany Riddle PA-C [address] [facility] [address] [place] [address] Diagnoses Radicular leg pain P rocedures Case request operating room: Left L4-L5 FUSION TRANSFORAMINAL LUMBAR INTERBODY SPINE OR ARTHDSIS POST/POSTEROLATRL/ POSTINTERBODY LUMBAR Encounter Details Care Team Description Date Type Department Frank Abdi MD [address] [facility] [address] [place], [place] [id number] L4-L5 FUSION TRANSFORAMINAL LUMBAR INTER BODY SPINE 07/28/2015 Surgery [facility] [address] [place], [place] [id number] Social History Date Tobacco Use Types Packs/Day [...] Signs Reading Time Taken Comments Vital Sign 136/84 07/31/2015 4:07 PM CDT Blood Pressure 72 07/31/2015 4:07 PM CDT Pulse 37 C (98.6 F) 07/31/2015 4:07 PM CDT Temperature 17 07/31/2015 4:07 PM CDT Respiratory Rate 94% 07/31/2015 4:07 PM CDT Oxygen Saturation - - Inhaled Oxygen Concentration 81.6 kg (180 lb) 07/27/2015 12:24 PM CDT Weight 162.6 cm (5' 4.02") 07/27/2015 12:24 PM CDT Height 30.88 07/27/2015 12:24 PM CDT Body Mass Index documented in this encounter Discharge Summaries * Floyd Andrade RN - 07/31/2015 5:49 PM CDT Pt. Discharged home by wheelchair with significant other to personal car. Pt. V/ u of discharge medications, to avoid lifting greater than 10-15 lbs, to call for follow up appointment on Monday, and signs/symptoms of infection. All questions answered. Scripts sent home with pt. This RN thanked pt. For choosing [facility]. * Yobany Riddle PA-C - 07/31/2015 7:31 AM CDT [facility] NEUROSURGERY INPATIENT DISCHARGE SUMMARY Patient: Dalila Obrien Age: 67 y.o. : 1950 Admit Date: 07/28/2015 Discharge Date and Time: 07/31/2015 6:11 PM On the day of admission, the patient was brought to the operative theater for L4 -L5 TLIF. The intraoperative and immediate postoperative course were uncomplica bradley. The patient was transferred from recovery to the general neurosurgical [facility]. There, she recovered well and progressed well with PT. She did have a residua l left foot drop at the time of discharge. At the time of discharge the patient was was ambulating independently and tolera ting an oral diet, had optimal pain control on oral medications, was voiding wit hout difficulty. The patient then met criteria for discharge and we was discharg ed to home on POD#3. Home going instructions were given delineating postoperative restrictions and si gns or symptoms which should prompt an earlier re-evaluation. Follow-Up: The patient will follow up with Dr. Abdi in 3 weeks. The detail s of the appointment were entered into the electronic record and given to the david sorensen in the After Visit Summary. Discharge Diagnoses: There are no hospital problems to display for this patient. Active Non-Hospital Problems Diagnosis RA (rheumatoid arthritis) (HCC) Neuropathy Hypothyroidism Essential hypertension Mixed hyperlipidemia Obesity (BMI 30.0-34.9) Foot drop, left Edema of lower extremity Radicular leg pain Allergies: Allergies Allergen Reactions Sulfa (Sulfonamide Antibiotics) Hives Discharge Medications: Medication List CONTINUE taking these medications citalopram 20 mg tablet Commonly known as: CeleXA Oral, Every morning gabapentin 600 MG tablet Commonly known as: NEURONTIN 600 mg, Oral, 2 times daily levothyroxine 75 MCG tablet Commonly known as: SYNTHROID, LEVOTHROID 75 mcg, Oral, Daily losartan 100 MG tablet Commonly known as: COZAAR 100 mg, Oral, Daily STOP taking these medications celecoxib 200 MG capsule Commonly known as: CeleBREX HYDROcodone-acetaminophen 7.5-325 mg per tablet Commonly known as: NORCO ASK your doctor about these medications methocarbamol 750 MG tablet Commonly known as: ROBAXIN 750 mg, Oral, 3 times daily PRN Ask about: Should I take this medication? Where to Get Your Medications You can get these medications from any pharmacy Bring a paper prescription for each of these medications methocarbamol 750 MG tablet Total time spent at discharge preparation: Over 30 minutes. Electronically signed by: Yobany Riddle 09/26/2017 7:32 AM documented in this encounter Discharge Instructions * Instructions* Yobany Riddle PA-C - 07/31/2015 [facility] [address] [place] [address], [address] [place] [address] Lumbar Surgery Post Operative Instructions No lifting more than 10-15 pounds. No repetitive bending/twisting. No soaking tub baths, hot tubs or swimming. You may shower post operative day 3 and pat the incision site dry. Keep incision open to air, do not use ointments o r lotions on the incision. Keep the incision clean and dry. The suture is dissol vable and will slough away in 2-3 weeks. Call the Neurosurgery clinic at if you notice redness, swelling, drainage, fever, chills or sweats. These are signs of infection and we may ask y ou to return to clinic for further evaluation. A return to work date will be decided between you and your physician, based on t he type of work you do. The same restrictions are in place whether you are recov ering at home or wish to return to work. Walk at least 10-15 minutes two times a day. Gradually increase your walking as tolerated, with a goal of 30 minutes a day. This is in addition to your normal a ctivities such as making light meals, walking about the house. Walking can decre ase muscle spasm pain, decrease the likelihood of blood clots in your legs and p neumonia. Pain medication will be prescribed for home use. Do not take any additional Tyle nol/acetaminophen since your pain medicine already contains this. Take it as dir ected. You may switch to over the counter medication when you feel it is appropr iate. Do not take your medication more often than prescribed. No driving while t aking narcotic pain medications. Narcotics can cause constipation. Increase your water and fiber intake. If neede d use over the counter agents such as milk of magnesia, Miralax or fleets enemas . Muscle spasms can cause a charley-horse sensation. Use your muscle relaxants dontrell t are prescribed in these cases. You may use ice, but do not apply it directly t o the incision site. It is not unexpected to have residual symptoms. It can take weeks/months for you r nerves to fully recover. Follow up is in 3 weeks. Please call [phone] to schedule documented in this encounter Medications at Time of Discharge Start Date End Date Medication Sig Dispensed Refills 04/27/2015 citalopram (CELEXA) 20 MG Take by mouth 0 tablet every morning. 04/18/2015 levothyroxine (SYNTHROID, Take 75 mcg 0 LEVOTHROID) 75 MCG tablet by mouth daily. 07/31/2015 08/10/2015 methocarbamol (ROBAXIN) Take 1 tablet 90 tablet 0 750 MG tablet (750 mg total) by mouth 3 (three) times a day as needed. 09/15/2017 amLODIPine [...] 100 mg 0 tablet by mouth daily. 07/31/2015 08/26/2015 oxyCODONE (ROXICODONE) 15 Take 1 tablet 90 tablet 0 MG immediate release (15 mg total) tablet by mouth every 4 (four) hours as needed. documented as of this encounter Progress Notes * Angela Clark LMSW - 07/31/2015 3:00 PM CDT 07/31/15 1555 Interventions Interventions D/C plan set up;Physician discussion Spoke with RAMONITA Galindo with Rehab, recommends home health therapy. Patient ope n to home health services. Met with patient, she declined home health services. Patient wants to go home w ith her daughter and she will follow up with outpatient services. Updated RN patient declined home health and desires outpatient therapy. Patient was provided a walker by physical therapy as ordered by the physician. * Josie Beasley RN ANP-C - 07/31/2015 2:40 PM CDT PMR Follow Up Note Subjective Patient seen in follow up for lumbar spondylosis with central canal narrowing s/ p L4-L5 TLIF with drop foot left leg and gait disturbance. Patient lying in bed . States pain is at 5/10 currently. Feels good about therapy today. Ready to go home. Daughter is available to assist as needed. Objective Temp: [36.6 C (97.8 F)-37.2 C (99 F)] 36.9 C (98.4 F) Pulse: [79-91] 79 Resp: [17-18] 17 BP: (99-159)/(57-93) 120/80 mmHg Physical Exam General Appearance- well developed, well nourished female in no acute distress. Neurologic- Alert. Oriented x3. Speech clear. No drift noted bilateral arms and legs. Sensation intact bilateral arms. Decreased soft touch sensation noted on left lower extremity. - continent of urine GI- No BM documented Review of therapy notes- PT- 07/30 Supine to sit- SBA Sit to supine-SBA Sit to stand-SBA Stand to sit-SBA Ambulated 450 feet with RW- SBA 4 stairs without rails, step to pattern- min A OT- 07/30 Toileting- Supervision Toilet transfer-Supervision Required verbal cues for proper transfer tech with RW. Using grab bar on L to d escend/ascend/ Sit to stand- min A Stand to sit-Min A Assessment/Plan Lumbar spondylosis with central canal narrowing s/p L4-L5 TLIF Drop Foot of Left leg Sciatica of left leg Patient will not require inpatient rehab. Would benefit from ongoing home healt h/outpatient rehab. Would start with home health to check how she is functionin g in her home and if needed continued outpatient therapy. Associated attestation - Kash Mercado MD - 08/03/2015 10:49 AM CDT I reviewed the note with the COMMUNITY SUPPORT WORKER and agree with the treatment plan. Faheem Mercado MD 08/03/2015 10:49 AM * Angela Clark LMSW - 07/31/2015 2:29 PM CDT 07/31/15 1429 Discharge Planning Anticipated discharge destination Home Self Care Interventions Interventions Met with patient;Phone contact Met with the patient at bedside, she has now decided to go home with her melinda r. Contacted acute rehab at [facility], canceled the referral. * Angela Clark LMSW - 07/31/2015 2:04 PM CDT 07/31/15 1404 Interventions Interventions Phone contact Spoke with Venice Telegraphic Typewriter Mechanic at [facility] rehab, admission RN is st campos in the process of reviewing the patient's clinical documentation. Venice conley call back with a decision as soon as possible. Angela Clark LMSW [phone] * Frank Abdi MD - 07/31/2015 7:46 AM CDT [facility] Neurosurgery Daily Progress Note Patient Name: Dalila Obrien Date: 07/31/2015 Hospital Day # LOS: 3 days Procedure:L4-L5 TLIF Patient Summary:: Admission following L4-L5 TLIF due to stenosis with left yayo t weakness. She held her rheumatologic medications appropriately. She otherw ise reports no new PMH, PSH, ALL, MEDS, SH/FH. MRI L-Spine demonstrated a grade 1 spondylolisthesis at L4-L5 associated with mo derate to severe central canal stenosis POD# 3 Subjective: Pain improving but she has concerns now about going home. She would like to be evaluated for rehab. Objective: Vital Signs: Temp (24hrs), Av C (98.6 F), Min:36.6 C (97.8 F), Max:37.2 C (99 F) BP 159/85 mmHg | Pulse 85 | Temp(Src) 36.6 C (97.8 F) (Oral) | Resp 17 | Ht 1.626 m (5' 4.02") | Wt 81.647 kg (180 lb) | BMI 30.88 kg/m2 | SpO2 95% | Breast feeding? No Intake/Output last 24 Hours and Current Shift: I/O last 3 completed shifts: In: 2540 [P.O.:2540] Out: 3700 [Urine:3700] Exam: Incision is CDI Patient is alert and oriented times three. 5/5 strength in bilateral upper and lower extremities. 3/5 Left dorsiflexion Sensation intact to light touch all extremities. Laboratory: No lab components to display Invalid input(s): LABALBU Assessment Active Problems: * No active hospital problems. * Plan: - PT, OT and PM&R following - Pain control - SC heparin and SCDs - Encourage OOBTC - Encourage IS - Rehab eval. Rehab or home today Yobany Riddle PA-C [facility] She is interested in going home. She refused home health, but will consider out patient PT. Reviewed all postoperative instructions, no NSAIDs, use vitamin D / calcium. We will initiate outpatient PT starting next week. We also will disc uss resuming RA medications w/ watch crystal cutter next week. Otherwise patient desc ribes no radicular symptoms, only incisional pain. She feels that her strength is improving. 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 Add ress/ Insurance/ PCP verified with patient. Pharmacy updated. Patient on day 2 of admission for lumbar stenosis. L4-5 TLIF on 07/28/15. PT/OT veronica doyle. PMR consulted and recommended outpt PT/OT. PT recommended walker. DAVID Rodríguez called at [phone]. Message about needing a walker order l eft with nurse. Patient lives at home with spouse, self-care. Family is supportive. Patient elke es using any DME prior to this surgery. Patient plans on staying with her daughter Carey for a week before returning shima e, self-care. Patient stated she plans on starting outpt therapy once she is christina k home with spouse. Waiting for walker order. Plan: discharge to daughter's home w/outpt PT/OT when medically stable. Registered Pharmacy Technician will cont to follow. * Frank Abdi MD - 07/30/2015 7:54 AM CDT [facility] Neurosurgery Daily Progress Note Patient Name: Dalila Obrien Date: 07/30/2015 Hospital Day # LOS: 2 days Procedure:L4-L5 TLIF Patient Summary:: Admission following L4-L5 TLIF due to stenosis with left yayo t weakness. She held her rheumatologic medications appropriately. She otherw ise reports no new PMH, PSH, ALL, MEDS, SH/FH. MRI L-Spine demonstrated a grade 1 spondylolisthesis at L4-L5 associated with mo derate to severe central canal stenosis POD# 2 Subjective: Pain improving. No BM yet, +flatus. Radicular pain much better Objective: Vital Signs: Temp (24hrs), Av.9 C (98.4 F), Min:36.4 C (97.6 F), Max:37.4 C (99 .3 F) BP 126/83 mmHg | Pulse 78 | Temp(Src) 36.9 C (98.4 F) (Oral) | Resp 18 | Ht 1.626 m (5' 4.02") | Wt 81.647 kg (180 lb) | BMI 30.88 kg/m2 | SpO2 95% | Breast feeding? No Intake/Output last 24 Hours and Current Shift: I/O last 3 completed shifts: In: 2878.7 [P.O.:1680; I.V.:1098.7; IV Piggyback:100.1] Out: 4425 [Urine:4425] Exam: Incision is CDI Patient is alert and oriented times three. 5/5 strength in bilateral upper and lower extremities. 3/5 Left dorsiflexion Sensation intact to light touch all extremities. Laboratory: No lab components to display Invalid input(s): LABALBU Assessment Active Problems: * No active hospital problems. * Plan: - PT, OT and PM&R to see. - Pain control - SC heparin and SCDs - Encourage OOBTC - Encourage IS Yobany Venkatesh PA-C [facility] Doing well. May want to go home tomorrow. Otherwise radicular symptoms markedl y improved. Frank Abdi MD, MSc, FAANS Pager: [phone] 07/30/2015 7:54 AM * Frank Abdi MD - 07/29/2015 7:49 AM CDT [facility] Neurosurgery Daily Progress Note Patient Name: Dalila Obrien Date: 07/29/2015 Hospital Day # LOS: 1 day Procedure:L4-L5 TLIF Patient Summary:: Admission following L4-L5 TLIF due to stenosis with left yayo t weakness. She held her rheumatologic medications appropriately. She otherw ise reports no new PMH, PSH, ALL, MEDS, SH/FH. MRI L-Spine demonstrated a grade 1 spondylolisthesis at L4-L5 associated with mo derate to severe central canal stenosis POD# 1 Subjective: Pain overnight. Percocet not fully controlling her pain. Objective: Vital Signs: Temp (24hrs), Av.4 C (97.6 F), Min:35.9 C (96.7 F), Max:36.9 C (98 .5 F) BP 110/66 mmHg | Pulse 62 | Temp(Src) 36.9 C (98.5 F) (Oral) | Resp 18 | Ht 1.626 m (5' 4.02") | Wt 81.647 kg (180 lb) | BMI 30.88 kg/m2 | SpO2 95% | Breast feeding? No Intake/Output last 24 Hours and Current Shift: I/O last 3 completed shifts: In: 3578.7 [P.O.:480; I.V.:2998.7; IV Piggyback:100.1] Out: 2690 [Urine:2640; Blood:50] Exam: Incision is CDI Patient is alert and oriented times three. 5/5 strength in bilateral upper and lower extremities. 3/5 Left dorsiflexion Sensation intact to light touch all extremities. Laboratory: No lab components to display Invalid input(s): LABALBU Assessment Active Problems: * No active hospital problems. * Plan: - PT, OT and PM&R to see. - Pain control - SC heparin to start this p.m. - Encourage OJENNIFER Riddle PA-C [facility] Doing well. Radicular symptoms improved. Frank Abdi MD, MSc, FAANS Pager: [phone] 07/29/2015 7:49 AM documented in this encounter H&P Notes * Frank Abdi MD - 07/28/2015 7:54 AM CDT [facility] NEUROSURGERY CONSULT NOTE NAME: Dalila Obrien : 1950 ADMISSION DATE: 07/28/2015 PRIMARY CARE PROVIDER: Shannon Falk MD CONSULT DATE: 07/28/2015 CHIEF COMPLAINT: Left foot weakness HISTORY OF PRESENT ILLNESS: I am seeing Dalila Obrien in neurosurgical preoperativ e evaluation for a L4-L5 TLIF. She continues to have left foot weakness. Other gerber she has no complaints this AM. She has held her rheumatologic medications appropriately. She otherwise reports no new PMH, PSH, ALL, MEDS, SH/FH. MRI L-Spine demonstrates a grade 1 spondylolisthesis at L4-L5 associated with mo derate to severe central canal stenosis. Lumbar F/E demonstrates worsening spondylolisthesis compared to supine imaging. PAST MEDICAL HISTORY: Past Medical History Diagnosis Date Hypertension Thyroid disease Head injury CONCUSSION AFTER FALL, LOC FOR BRIEF PERIOD OF TIME, NO PERMANENT DAMAGE Neuropathy LEFT FOOT History of blood clots SUPERFACIAL CLOTS AT THIGH AREA OF LEFT LEG Hyperlipidemia Hypothyroidism GERD (gastroesophageal reflux disease) MARTY FOR GERD, NO PROBLEMS SINCE Urinary incontinence STRESS INCONTINENCE Osteoarthritis HANDS, HIPS Chronic pain disorder ON PAIN NARCOTICS FOR APPROX 15 YRS Degenerative joint disease (DJD) of lumbar spine Sciatica DOWN LEFT LEG RA (rheumatoid arthritis) APPROX 10 YRS Rheumatoid arthritis of spine CERVICAL SPINE; HAS FULL ROM WITH NECK Anesthesia complication CAUSES CONSTIPATION PAST SURGICAL HISTORY: Past Surgical History Procedure Laterality Date Roator cuff reapir Broken collar bone Hysterectomy Vericose vein removal Marty fundoplication Vein ligation and stripping Left Rotator cuff repair Right Fracture surgery Left CLAVICAL FX Tonsillectomy Adenoidectomy Bunionectomy Right ALLERGIES: Allergies Allergen Reactions Sulfa (Sulfonamide Antibiotics) Hives HOME MEDICATIONS: Prescriptions prior to admission Medication Sig Dispense Refill Last Dose amLODIPine (NORVASC) 10 MG tablet Take 10 mg by mouth daily. 07/28/2015 at U nknown time atorvastatin (LIPITOR) 40 MG tablet Take 40 mg by mouth nightly. 07/27/2015 at Unknown time celecoxib (CELEBREX) 200 MG capsule Past Week at Unknown time citalopram (CELEXA) 20 MG tablet Take by mouth every morning. 07/27/2015 at Unknown time gabapentin (NEURONTIN) 600 MG tablet Take 600 mg by mouth 2 (two) times a da y. 07/27/2015 at Unknown time HYDROcodone-acetaminophen (NORCO) 7.5-325 mg per tablet Take 1-2 tablets by mouth every 4 (four) hours as needed. 07/27/2015 at Unknown time hydroxychloroquine (PLAQUENIL) 200 mg tablet Take 200 mg by mouth 2 (two) ti mes a day. Past Week at Unknown time leflunomide (ARAVA) 20 MG tablet Take 20 mg by mouth daily. Past Week at Unknown time levothyroxine (SYNTHROID, LEVOTHROID) 75 MCG tablet Take 75 mcg by mouth jeffy ly. 07/28/2015 at Unknown time losartan (COZAAR) 100 MG tablet Take 100 mg by mouth daily. 07/27/2015 at U nknown time CURRENT MEDICATIONS: Current Facility-Administered Medications Medication Dose Route Frequency Provider Last Rate Last Dose ceFAZolin (ANCEF) injection 2 g 2 g Intravenous 60 Min Pre-Op Frank fishman MD dexamethasone (DECADRON) injection 8 mg 8 mg Intravenous Once Hailey H MD Ramana dextrose 5% lactated ringers infusion lactated ringers infusion 50 mL/hr Intravenous Continuous Jacki Barraza r, lidocaine (pf) (XYLOCAINE-MPF) 10 mg/mL (1 %) injection 0.1-0.3 mL 0.1-0.3 mL Intradermal Once Jacki Farfan DO FAMILY HISTORY: History reviewed. No pertinent family history. SOCIAL HISTORY: History Social History Marital Status: Spouse Name: N/A Number of Children: N/A Years of Education: N/A Occupational History Not on file. Social History Main Topics Smoking status: Never Smoker Smokeless tobacco: Not on file Alcohol Use: Yes Comment: RARELY Drug Use: No Sexual Activity: Not on file Other Topics Concern Not on file Social History Narrative REVIEW OF SYSTEMS: Negative other than above. PHYSICAL EXAM: Temp (24hrs), Av.1 C (98.8 F), Min:37.1 C (98.8 F), Max:37.1 C (98 .8 F) BP 144/73 mmHg | Pulse 67 | Temp(Src) 37.1 C (98.8 F) (Oral) | Resp 18 | Ht 1.626 m (5' 4.02") | Wt 81.647 kg (180 lb) | BMI 30.88 kg/m2 | SpO2 98% | Breast feeding? No AOX4. NAD. Comfortable in preoperative room. Strength 5/5 with the exception of left dorsiflexion which is graded 1-2/5. Sensory intact to light touch. No Kamara's, no clonus. LABORATORY: Most Recent Result from last 24 hours Lab Units 07/28/15 0650 SODIUM MEQ/L 140 POTASSIUM MEQ/L 4.3 CHLORIDE MEQ/L 104 CARBON DIOXIDE MEQ/L 26 ASSESSMENT L4-L5 spondylolisthesis. Left DF weakness. PLAN: L4-L5 TLIF. Reviewed risks, benefits, and alternatives. Patient consents to pr oceed. Reviewed expected postoperative course. Patient understands that surger y is not a guarantee for neurologic relief / improvement. Frank Abdi MD, MSc, FAANS Pager: [phone] 07/28/2015 7:54 AM documented in this encounter Procedure Notes * Kash Cabezas MD - 07/28/2015 11:45 AM CDT Associated Order(s): INTRAOPERATIVE NEUROPHYSIOLOGIC MONITORING NEURODIAGNOSTICS - Intraoperative neurophysiologic monitoring report PROCEDURE DATE: 07/28/2015 PROCEDURE: L4-L5 transforaminal lumbar interbody fusion (TLIF). MONITORING START TIME: 0733. MONITORING END TIME: 1145. REFERRING PHYSICIAN: Frank Abdi MD INTERPRETING PHYSICIAN: Kash Cabezas MD CLINICAL HISTORY Dalila Obrien is a 64 y.o. female with left foot drop found to have imaging showing lumbar spine spondylosis at L4-L5 with severe central canal stenosis and milt to moderate bilateral foraminal stenosis. OPERATIVE COURSE Serial intra-operative somatosensory evoked potentials (SSEPs) were made from th e bilateral ulnar and tibial nerves. Reliable baseline recordings were obtained after positioning and prior to incision. There were no significant changes thr oughout the procedures. Transcranial electrical motor evoked potentials (TceMEPs) were performed from th e bilateral upper (extensor digitorum communis and abductor pollicis brevis) and lower (vastus lateralis, anterior tibialis, medial gastrocnemius, peroneus long us, and abductor hallucis) extremities. Reliable baseline recordings were obtai neha after positioning and prior to incision. All TceMEPs throughout the procedu re were unchanged from the baseline. Free run EMG was performed recording at the bilateral vastus lateralis, peroneus longus, tibialis anterior, medial gastrocnemius, and abductor hallucis muscles. No persistent abnormal spontaneous activity was recorded during the study. EEG background throughout the procedure consisted of a symmetric, moderate ampli tude mixture of theta and delta without reactivity to external stimuli. No epil eptiform abnormalities or seizures were seen during the procedure. Burst suppre ssion was not seen during the procedure. The waveform data and event log have been stored for future reference. All baselines were obtained by 0846. I was physically present in the OR for monitoring from 0837 until 1145. INTERPRETATION During the procedure, no significant changes from the baselines were seen in the modalities monitored and no persistent abnormal spontaneous EMG activity was ob served. . Pager: . documented in this encounter Consult Notes * Angela Clark LMSW - 07/31/2015 10:36 AM CDT Associated Order(s): CONSULT TO CARE INTEGRATION Met with patient at bedside, patient was planning on staying with her daughter arcadio n the [facility] following surgery. Patient feels she needs to be stronge r and needs more therapy prior to returning to a home setting. Informed patient [facility] has an inpatient acute rehab and offered patient a list of acute r ehabs in the [facility]. Patient requested a referral to [facility]. Spoke with [place] at [facility] [phone] and faxed referral to . SW will continue to follow. Angela Clark LMSW [phone] * Yandel Garcia MD - 07/29/2015 10:59 AM CDT [facility] 07/29/2015 Patient Identification Patient's Name: Dalila Obrien : 1950 Admit Date: 07/28/2015 Attending Provider: Frank Abdi MD Patient was seen and evaluated by the Physical Medicine & Rehabilitation Medicine consult service at the request of Frank Abdi MD for rehabilitation needs. Primary Care Physician: Shannon Falk MD Admitting Diagnosis: Lumbar spinal stenosis History of Present Illness Information was obtained from patient interview and the medical records. Dalila Obrien is a 64 y.o. female with PMH of HTN, hypothyroidism, and rheumatoid a rthritis who was admitted yesterday for elective L4-L5 TLIF. Ms. Obrien has been experiencing severe low back pain as well as left lower leg numbness and weaknes s for the last 6 months. Radiology demonstrated L4-L5 spondylosis with severe c entral canal stenosis and moderate bilateral foraminal stenosis. She underwent surgery yesterday and this morning reports that she is still having significant post-op back pain. However, she feels like there is improvement in her lower le g parethesias. She has not noticed a change in her left foot weakness as of yet . Ms. Obrien reports that she initially used a two-wheel walker in Jan 2015 because 10/10 back pain. However, for the last several months, she has not been using a ssistive devices for ambulation despite several falls because of foot drop. Her biggest issues were getting into and out of bathtub, and she limited her commun ity ambulation because of back pain and foot weakness. Ms. Obrien has rheumatoid arthritis and a history of rotator cuff repairs. Howeve r, she reports that her current medication regimen has her arthritis under contr ol and she has no pain or dysfunction of her UE joints. She is comfortable she could utilize her UE's for ambulation assistance if necessary. Premorbid Functional Status: Prior to this hospitalization, this patient was mod ified independent with all activities of daily living and self care. Current Functional Status: Awaiting evaluations from PT/OT. Barriers to Returning Home/ Home Environment: Pt lives in two story house with h er in [place], [place] with two steps to enter. Guest bedroom is on the s econd floor and patient rarely needs to access the second level. Bed/bath/appli ances on first floor. DME at home: None Caregiver/Social Support: Self, Spouse Patient History Information PAST MEDICAL HISTORY: Past Medical History Diagnosis Date Hypertension Thyroid disease Head injury CONCUSSION AFTER FALL, LOC FOR BRIEF PERIOD OF TIME, NO PERMANENT DAMAGE Neuropathy LEFT FOOT History of blood clots SUPERFACIAL CLOTS AT THIGH AREA OF LEFT LEG Hyperlipidemia Hypothyroidism GERD (gastroesophageal reflux disease) MARTY FOR GERD, NO PROBLEMS SINCE Urinary incontinence STRESS INCONTINENCE Osteoarthritis HANDS, HIPS Chronic pain disorder ON PAIN NARCOTICS FOR APPROX 15 YRS Degenerative joint disease (DJD) of lumbar spine Sciatica DOWN LEFT LEG RA (rheumatoid arthritis) APPROX 10 YRS Rheumatoid arthritis of spine CERVICAL SPINE; HAS FULL ROM WITH NECK Anesthesia complication CAUSES CONSTIPATION PAST SURGICAL HISTORY: Past Surgical History Procedure Laterality Date Roator cuff reapir Broken collar bone Hysterectomy Vericose vein removal Marty fundoplication Vein ligation and stripping Left Rotator cuff repair Right Fracture surgery Left CLAVICAL FX Tonsillectomy Adenoidectomy Bunionectomy Right FAMILY HISTORY: History reviewed. No pertinent family history. SOCIAL HISTORY: History Social History Marital Status: Spouse Name: N/A Number of Children: N/A Years of Education: N/A Occupational History Not on file. Social History Main Topics Smoking status: Never Smoker Smokeless tobacco: Not on file Alcohol Use: Yes Comment: RARELY Drug Use: No Sexual Activity: Not on file Other Topics Concern Not on file Social History Narrative Precaution Allergies Allergen Reactions Sulfa (Sulfonamide Antibiotics) Hives CURRENT MEDICATIONS: amLODIPine 10 mg Oral Daily atorvastatin 40 mg Oral Nightly citalopram 20 mg Oral QAM heparin (porcine) 5,000 Units Subcutaneous Q8H levothyroxine 75 mcg Oral Daily losartan 100 mg Oral Daily Review of Systems A complete 10 point review of systems was obtained. All pertinent findings were discussed in the HPI otherwise all others are negative. Physical Exam Patient Vitals for the past 24 hrs: BP Temp Temp src Pulse Resp SpO2 07/29/15 0745 110/66 mmHg 36.9 C (98.5 F) Oral 62 18 95 % 07/29/15 0331 123/70 mmHg 36.8 C (98.3 F) Oral 56 18 95 % 07/28/15 2254 107/63 mmHg 36.3 C (97.4 F) Axillary 63 18 97 % 07/28/15 1918 108/67 mmHg 36.4 C (97.6 F) Oral 71 18 96 % 07/28/15 1655 109/65 mmHg (!) 35.9 C (96.7 F) Axillary 75 18 96 % 07/28/15 1600 108/79 mmHg - - 70 15 97 % 07/28/15 1449 113/69 mmHg - - 82 15 97 % 07/28/15 1345 105/68 mmHg - - 82 13 97 % 07/28/15 1337 115/70 mmHg 36.2 C (97.2 F) Temporal 80 12 97 % 07/28/15 1320 114/64 mmHg - - 82 8 93 % 07/28/15 1308 107/48 mmHg - - 76 12 100 % 07/28/15 1256 97/67 mmHg - - 81 14 100 % 07/28/15 1230 116/60 mmHg - - 84 18 94 % 07/28/15 1219 105/58 mmHg - - 77 11 97 % 07/28/15 1206 105/60 mmHg 36.3 C (97.3 F) Tympanic 81 - 100 % General: Awake, alert, oriented, in NAD. HEENT: Head is atraumatic, normocephalic. Pupils are equal round and reactive. O ral mucosa is moist and without lesions. Neck is supple and without lymphadenopa thy. CV: RRR. Tissues are well perfused. Resp: Lungs are clear to auscultation bilaterally. No signs of respiratory distr ess. GI: Abdomen is soft, non-tender, non-distended. Bowel sounds are present. : No hodges in place. MSK: Surgical sites on low back are clean, dry and intact. Mild, bilateral MCP j oint swelling with minimal ulnar deviation noted. Skin/Lymph: 1x1 cm abrasion on L anterior knee from fall prior to hospitalizatio n Neuro: Mental status- Awake, alert, oriented to person, place and time. Cognition & Comprehension- Performs simple and complex commands. Able to perform abstract reasoning and make appropriate decisions. Language- No signs of aphasia or dysarthria. Sensory- endorses decreased sensation to light touch on lateral left leg and do rsum of left foot Muscle strength- 5/5 in bilateral upper extremities with elbow flexion, extensio n, wrist extension, finger abduction and pocket setter lockstitch. 5/5 in R leg with hip flexion, knee extension, ankle dorsiflexion, plantar flexi on and great toe extension 5/5 in L leg with hip flexion, knee extension, 3/5 in L leg with ankle dorsifle xion, great toe extension 4+/5 in L leg withplantar flexion Muscle stretch reflexes - 3+ at L patella, 1+ in R patella and bilateral achill es DATA REVIEW No lab components to display Most Recent Result within the last 7 days Lab Units 07/28/15 0650 SODIUM MEQ/L 140 POTASSIUM MEQ/L 4.3 CHLORIDE MEQ/L 104 CARBON DIOXIDE MEQ/L 26 XR Lumbar Spine 2 or 3 views: 05/27/15 IMPRESSION: 1. 11 mm degenerative anterolisthesis at L4-L5 without evidence of abnormal gurpreet on with flexion and extension. 2. Lower lumbar spondylosis. Assessment/Plan Assessment: Dalila Obrien is a 64 y.o. female with: Lumbar spondylosis with central canal narrowing s/p L4-L5 TLIF Drop Foot of Left leg Sciatica of left leg Rheumatoid Arthritis Osteoarthritis HTN Hypothyroidism Recommendations: - Continue medical/surgical care per primary team. - PT for strengthening and mobility training - OT for ADLs, dressing and self care - Social work for discharge disposition and planning. - Anticipate patient would benefit from continued outpatient PT/OT. PM&R will follow along and update any therapy recommendations as they become known. Thank you for this consultation. Please feel free to contact us with any questions or concerns. Yandel Garcia MD Internal Medicine, PGY-1 [phone] Electronically signed by Yandel Garcia M.D. 07/29/2015 11:00 AM Associated attestation - Kash Mercado MD - 07/29/2015 3:34 PM CDT I evaluated the patient along with the resident. I have reviewed the note and ag ree with the treatment plan. Ms. Obrien is status post L4-L5 T LIF with left foot drop and gait and ADL dysfunction. She does feel like she has already had impr ovement since surgery in regards to her pain. She does have at least antigravit y strength of the left leg throughout all tested muscles. We discussed options for therapy including short inpatient rehabilitation stay versus going home with the assistance of her family and outpatient therapy. I don't think she is quite ready to be home by herself without assistance yet. She is in favor of doing outpatient therapy and I think this would be appropriate. Therapy will help dir ect any equipment needs that she may have prior to discharge. Thank you for all owing us to participate in her care. Please feel free to contact us with any qu estions or concerns MLashawn Mercado MD 07/29/2015 3:28 PM documented in this encounter Nursing Notes * Lydia Warren, RN - 07/27/2015 12:25 PM CDT PT ENCOURAGED TO SPEAK WITH PCP REGARDING A SLEEP STUDY documented in this encounter Miscellaneous Notes * Therapy Note - Ashley Montez, PT - 07/31/2015 2:28 PM CDT 07/31/15 1100 Visit Info Patient/Family Reports feels better and ready to go home PT Received On 07/31/15 Precautions Back Precautions Yes Back Precaution Comments no bending/lifting/twisting Fall Risk Yes Pain Assessment Pain Score 4 Pain Type Surgical pain Pain Location Back Pain Orientation Lower Cognition Overall Cognitive Status WFL Orientation Level Oriented to person;Oriented to place;Oriented to time;Oriented to situation Bed Mobility Supine to Sit Stand by assistance Sit to Supine Stand by assistance Transfers Assistive Device Rolling walker Sit to Stand Transfers Stand by assistance Stand to Sit Transfers Stand by assistance Gait Gait Distance (Feet) 450 Assistive Device Rolling walker Gait Level Surface Assistance Stand by Pattern Decreased destinee;R Decreased step length;L Decreased step length Stair Management Technique No rails;Step to pattern;Forwards (ATHLETIC TURF WORKER L, use of wall on R) Stair Management Assistance Minimal Number of Stairs 4 Activity Tolerance Activity Tolerance fair LE Ther Ex AROM Bilateral;6 - 10 reps;Sitting *ASSESSMENT Response to Treatment Good Plan Progress Progressing toward goals Recommendation Plan Continued PT;Safe to DC home with family support Equipment Recommended Walker * Plan of Care - Floyd Andrade RN - 07/31/2015 2:25 PM CDT Problem: Knowledge Deficit Goal: Patient/family/caregiver demonstrates understanding of disease process, tr eatment plan, medications, and discharge instructions Outcome: Progressing Pt. And pt's significant other v/u of education provided on ambulation, medicati ons, and POC. Pt. Expressed that she is discharging to her daughter's house. BHUPENDRA Angela given update Problem: Pain Goal: Patients pain/discomfort is manageable Outcome: Progressing Pt. V/u that her pain is well managed with Oxycodone. Rating "5" on 0-10 scale Problem: Skin Integrity Goal: Skin integrity is maintained or improved Outcome: Progressing Skin is c/d/i, incision sites on back are well approximated, with dermabond Problem: Nutrition Goal: Patients nutritional intake is adequate Outcome: Progressing Regular diet, good appetite * Therapy Note - Benson Allred COTA - 07/31/2015 10:55 AM CDT 07/31/15 1051 OT Initial Visit Patient/Family Reports Pt agreeable to OT session. Seated in recliner upon arriv al. Appropriate to see per nurse. OT Received On 07/31/15 Precautions Back Precautions Yes Back Precaution Comments no bending/lifting/twisting Fall Risk Yes ADL Toileting Supervision/Setup Toilet Transfer Supervision/Setup Toilet Transfer Equipment Grab bar;Roller walker Toilet Transfer Method Ambulating ADL Comments req verbal cues for proper transfer tech with RW. Using grab bar on L to descend/ascend/ Transfers Assistive Device Rolling walker Sit to Stand Transfers Verbal cueing required;Min assist Stand to Sit Transfers Min assist;Verbal cueing required Transfer Comments CGA for steadying. Gait Gait Level Surface Assistance Minimal Assistive Device Rolling walker UE Therapeutic Exercises and Therapeutic Activity AROM Bilateral;6-10;Verbal cues;Visual cues;Sitting;Home exercise program (comme nt) (yellow theraband ) Therapeutic Exer Comments 1 set of 12 reps each in multiple joints and planes. C ompleted without complaints of pain or fatigue. Educated on importance of breath ing properly during therex. Recommendation Plan Continued OT Completed session seated in recliner with nursing staff present and Alteration Hand a rrived to transfer pt to PT gym. * Plan of Care - Nikki Cardenas RN - 07/30/2015 9:00 PM CDT Problem: Knowledge Deficit Goal: Patient/family/caregiver demonstrates understanding of disease process, tr eatment plan, medications, and discharge instructions Outcome: Progressing Discussed with patient Goal: Patient/Family/Caregiver sets realistic goals Outcome: Progressing Problem: Pain Goal: Patients pain/discomfort is manageable Outcome: Progressing Patient's pain controlled with pain regimen Problem: Skin Integrity Goal: Skin integrity is maintained or improved Outcome: Progressing Incisions c/d/i Problem: Safety Goal: Patient will be injury free during hospitalization Outcome: Progressing Fall precautions in place Problem: Nutrition Goal: Patients nutritional intake is adequate Outcome: Progressing Tolerating regular diet Problem: Risk for Falls Goal: Patient will not fall during their Inpatient stay Fall precautions in place * Therapy Note - Benson Allred COTA - 07/30/2015 1:31 PM CDT 07/30/15 1329 OT Initial Visit Patient/Family Reports Pt agreeable to OT session. Supine in bed upon arrival. OT Received On 07/30/15 ADL Adaptive Equipment/Durable Medical Equipment Tax Associate;Sock aid Lower Body Dressing Minimal Assistance Lower Body Dressing, Type of Clothing Right sock;Left sock;Pants Lower Body Dressing Type of Assistance Patient used assistive device;Steadying a ssistance ADL Comments Pt req demo/verbal cues for proper use of AE and req increased time to complete LB dressing. Min assist req during pulling up pants. Bed Mobility Rolling Min assist to left Supine to Sit Min assist to left Bed Mobility Comments Pt reported/demo significant pain during bed mobility. Alfonzo sing notified and present during OT session to adminster meds. Transfers Assistive Device Rolling walker Sit to Stand Transfers Min assist Stand to Sit Transfers Min assist Recommendation Plan Continued OT Pt completed session in side lying position in bed with needs in reach. * Plan of Care - Taylor Pierce RN - 07/30/2015 12:50 PM CDT Problem: Knowledge Deficit Goal: Patient/family/caregiver demonstrates understanding of disease process, tr eatment plan, medications, and discharge instructions Outcome: Progressing Goal: Patient/Family/Caregiver sets realistic goals Outcome: Progressing Problem: Pain Goal: Patients pain/discomfort is manageable Outcome: Progressing Problem: Skin Integrity Goal: Skin integrity is maintained or improved Outcome: Progressing Problem: Safety Goal: Patient will be injury free during hospitalization Outcome: Progressing Problem: Nutrition Goal: Patients nutritional intake is adequate Outcome: Progressing Problem: Risk for Falls Goal: Patient will not fall during their Inpatient stay Outcome: Progressing * Therapy Note - Ashley Montez, PT - 07/30/2015 12:11 PM CDT 07/30/15 1058 Visit Info Patient/Family Reports feels worse than yesterday with more pain PT Received On 07/30/15 Precautions Back Precautions Yes Back Precaution Comments no bending/lifting/twisting Fall Risk Yes Pain Assessment Pain Score 6 Pain Type Surgical pain Pain Location Back Pain Orientation Lower Cognition Overall Cognitive Status WFL Orientation Level Oriented to person;Oriented to place;Oriented to time;Oriented to situation Transfers Assistive Device Rolling walker Sit to Stand Transfers Min assist Stand to Sit Transfers Min assist Gait Gait Distance (Feet) 80 Assistive Device Rolling walker Gait Level Surface Assistance Minimal Pattern Decreased destinee;R Decreased step length;L Decreased step length Activity Tolerance Activity Tolerance fair LE Ther Ex AROM Bilateral;6 - 10 reps;Sitting *ASSESSMENT Response to Treatment Fair;Limited by pain Plan Progress Slow progress, decreased activity tolerance Recommendation Plan Continued PT Equipment Recommended Walker * Plan of Care - Chante Shelton RN - 07/30/2015 12:58 AM CDT Problem: Pain Goal: Patients pain/discomfort is manageable Outcome: Progressing Problem: Skin Integrity Goal: Skin integrity is maintained or improved Outcome: Progressing Problem: Safety Goal: Patient will be injury free during hospitalization Outcome: Progressing Problem: Risk for Falls Goal: Patient will not fall during their Inpatient stay Outcome: Progressing Bed alarm on * Plan of Care - Nata Joseph RN - 07/29/2015 1:56 PM CDT Problem: Knowledge Deficit Goal: Patient/family/caregiver demonstrates understanding of disease process, tr eatment plan, medications, and discharge instructions Outcome: Progressing Goal: Patient/Family/Caregiver sets realistic goals Outcome: Progressing Problem: Pain Goal: Patients pain/discomfort is manageable Outcome: Progressing Problem: Skin Integrity Goal: Skin integrity is maintained or improved Outcome: Progressing Problem: Safety Goal: Patient will be injury free during hospitalization Outcome: Progressing Problem: Nutrition Goal: Patients nutritional intake is adequate Outcome: Progressing Problem: Risk for Falls Goal: Patient will not fall during their Inpatient stay Outcome: Progressing * Therapy Note - María Willson OT - 07/29/2015 1:18 PM CDT 07/29/15 1300 OT Initial Visit Initial OT Visit On 07/29/15 Assessed for Rehab Yes Referral Reason eval and treat Patient/Family Reports pt doing well and willing to work with therapy. Ok to see per RN OT Received On 07/29/15 Precautions Back Precautions Yes Back Precaution Comments no bending/lifting/twisting Fall Risk Yes Home Living Type of Home House Home Layout Two level;Able to live on main level with bedroom/bathroom Lives With Spouse Bathroom Shower/Tub Tub/shower unit Bathroom Toilet Standard Home Assistive Device None Prior Function Level of [place] Independent with ADLs;Independent with functional transfer s;Independent with ambulation ADL Lower Body Dressing Minimal Assistance Lower Body Dressing, Type of Clothing Right sock;Left sock Lower Body Dressing Type of Assistance Patient used assistive device (sock aid ) Cognition Overall Cognitive Status WFL Arousal/Alertness Appropriate responses to stimuli Attention Span Appears intact Memory Appears intact Orientation Level Oriented to person;Oriented to place;Oriented to time;Oriented to situation Following Commands Follows all commands and directions without difficulty RUE Assessment RUE Assessment WFL LUE Assessment LUE Assessment WFL Transfers Assistive Device Rolling walker Sit to Stand Transfers Min assist Stand to Sit Transfers Min assist Gait Gait Level Surface Assistance Minimal Assistive Device Rolling walker Activity Tolerance Activity Tolerance fair;+ Patient Education Patient Education OT POC Assessment Learning Barriers None Response to Treatment Good Problem List Decreased ADL participation;Decreased IADL participation;Decreased activity tolerance;Decreased functional mobility Timeframe Timeframe STG 3 sessions Timeframe LTG 5 sessions LB Dressing Goals LB Dressing STG Goal Status New goal LB Dressing STG Setup/Supervision LB Dressing LTG Goal Status New goal LB Dressing LTG Modified Independent Toilet Transfer Goals Toilet Transfer STG Goal Status New goal Toilet Transfer STG Setup/Supervision Toilet Transfer LTG Goal Status New goal Toilet Transfer LTG Modified Independent Functional Transfer Goals Functional Transfer STG Goal Status New goal Functional Transfer STG Setup/Supervision Functional Transfer LTG Goal Status New goal Functional Transfer LTG Modified Independent Plan Pt/Family involved in Plan of Care yes Treatment Interventions ADL retraining;Functional transfer training;UE strengthe nithya/ROM;Functional activity tolerance OT Frequency 3-5x/wk Recommendation Plan Continued OT * Therapy Note - Ashley Montez, PT - 07/29/2015 11:09 AM CDT 07/29/15 0945 Visit Info Initial PT Visit On 07/29/15 Assessed for Rehab Yes Referral Reason eval and treat Ordering practitioner denny Patient/Family Reports c/o severe pain but wants to get up PT Received On 07/29/15 Precautions Back Precautions Yes Back Precaution Comments no bending/lifting/twisting Fall Risk Yes Home Living Type of Home House Home Layout Two level;Able to live on main level with bedroom/bathroom Stairs to enter 2-3 steps Lives With Daughter Home Assistive Device None Additional Comments lives alone, but going to live with daughter at d/c Prior Function Level of [place] Independent with ADLs;Independent with functional transfer s;Independent with ambulation Pain Assessment Pain Score 7 Pain Type Surgical pain Pain Location Back Pain Orientation Lower Cognition Overall Cognitive Status WFL Orientation Level Oriented to person;Oriented to place;Oriented to time;Oriented to situation Bed Mobility Supine to Sit Stand by assistance;HOB elevated;Bed Rail Transfers Sit to Stand Transfers Min assist;Mod assist Stand to Sit Transfers Min assist Toilet transfer Mod assist to left;Assistive Device Gait Gait Distance (Feet) 100 Assistive Device ATHLETIC TURF WORKER;Right (hallway rail L) Gait Level Surface Assistance Minimal;Moderate Pattern Decreased destinee;R Decreased step length;L Decreased step length Gait Comments will try RW next tx Activity Tolerance Activity Tolerance fair;+ RLE Assessment RLE Assessment WFL LLE Assessment LLE Assessment WFL Patient Education Patient Education PT POC *ASSESSMENT Response to Treatment Good Problem List Activity tolerance;Balance;Bed mobility;Gait;ROM;Safety;Strength;Tr ansfers;Pain;Precaution education Timeframe Timeframe STG 3 tx sessions Timeframe LTG 6 tx sessions Bed Mobility Goals Bed Transfer STG Goal Status New goal Bed Mobility STG Supervision Transfer Goals Transfer STG Goal Status New goal Transfer STG Supervision Gait Distance/Assist Goals Gait Distance STG (ft) 200 ft Gait Distance STG Goal Status New goal Gait Assist STG Standby assist Gait STG - Assistive Device Rolling walker Stair/Curb Goals Stair/Curb STG Goal Status New goal Stair/Curb STG Curb;Standby assist Other Goals Other Goal 1 LTG: Pt will perform all functional mobility mod I with appropriate AD *PLAN Treatment/Interventions Functional transfer training;LE strengthening/ROM;Endura nce training;Bed mobility;Gait training;Balance;Safety training;Progressive Mobi lity PT Frequency 5-7x/wk Recommendation Plan Continued PT Equipment Recommended Walker * Plan of Care - Billie Loco RN - 07/28/2015 11:32 PM CDT Problem: Knowledge Deficit Goal: Patient/family/caregiver demonstrates understanding of disease process, tr eatment plan, medications, and discharge instructions Outcome: Progressing Goal: Patient/Family/Caregiver sets realistic goals Outcome: Progressing Problem: Pain Goal: Patients pain/discomfort is manageable Outcome: Progressing Problem: Skin Integrity Goal: Skin integrity is maintained or improved Outcome: Progressing Problem: Safety Goal: Patient will be injury free during hospitalization Outcome: Progressing Problem: Nutrition Goal: Patients nutritional intake is adequate Outcome: Progressing Problem: Risk for Falls Goal: Patient will not fall during their Inpatient stay Outcome: Progressing * Plan of Care - Nitza Bernstein RN - 07/28/2015 5:21 PM CDT Problem: Knowledge Deficit Goal: Patient/family/caregiver demonstrates understanding of disease process, tr eatment plan, medications, and discharge instructions Outcome: Progressing Goal: Patient/Family/Caregiver sets realistic goals Outcome: Progressing Problem: Pain Goal: Patients pain/discomfort is manageable Outcome: Progressing Pt able to verbalize need for pain medications. Will cont to monitor. Problem: Skin Integrity Goal: Skin integrity is maintained or improved Outcome: Progressing Pt has surgical incisions on lower back. Will cont to monitor. Problem: Safety Goal: Patient will be injury free during hospitalization Outcome: Progressing Oriented pt and spouse to room, call light. Pt AOx3. Instructed pt to call for assist with any transfers or needs. Pt verbalized and demonstrated understandi ng. Problem: Nutrition Goal: Patients nutritional intake is adequate Outcome: Progressing Pt instructed on how to order food from the menu. Pt called and order her own d inner. Problem: Risk for Falls Goal: Patient will not fall during their Inpatient stay Outcome: Progressing Yellow bracelet on. Non-skid socks in place. Pt instructed to call for help wi th all assist. * Operative Note - Frank Abdi MD - 07/28/2015 12:15 PM CDT [facility] NEUROSURGERY OPERATIVE NOTE NAME: Dalila Obrien : 1950 PREOPERATIVE DIAGNOSIS: 1) Left dorsiflexion weakness. 2) L4-L5 grade 1 mobile spondylolisthesis POSTOPERATIVE DIAGNOSIS: 1) Same PROCEDURE: 1) L4-L5 minimally invasive transforaminal lumbar interbody fusion 2) L4-L5 bilateral pedicle screw instumentation, Depuy Synthes Viper. 3) L4-L5 placement of interbody, Globus RISE cage. 4) Use of operating microscope 5) Neuromonitoring 6) Fluoroscopy / 3D O Arm SURGEON: Frank Abdi MD, MSc, FAANS RESIDENT/HOSE COUPLING JOINER: Yobany Riddle PA-C ANESTHESIA: GET EBL: <30 mL INDICATIONS: The patient is a 64 y/o female with left dorsiflexion weakness and a grade 1 L4- L5 mobile spondylolisthesis. I discussed the risks, benefits, and alternatives with with her, and informed consent was obtained. The risks included, but were not limited to, bleeding, infection, scar, scar around the nerve root, nerve estee t injury, reherniation, continued symptoms, weakness, numbness, need for further surgery, spinal fluid leak, need for lumbar drain, anesthetic complications, me dical complications (e.g., DVT/PE, AMI, pneumonia, bladder infection, etc), fail ure of fusion, hardware failure, pseudoarthrosis, adjacent level degeneration, m igration of the cage. PROCEDURE: The patient was brought to the operating room and underwent induction of general endotracheal anesthesia. Neuromonitoring electrodes were placed by correctional maintenance technician. The patient was then prone onto the Homero table. The lumbar region was prepped and draped in the usual sterile manner. A timeout was then performed verifying the indicated items on the checklist and antibiotics were confirmed. Lateral fluoroscopy was used to vesta the L4-L5 disc space with a spinal needle. Bilateral incisions were planned approximately 4.5 cm off midline. Local anesthe tic was administered. The incisions were made sharply and then carried down thro ugh the fascia using electrocautery. I initially proceeded with placement of the K-wires. Lateral fluoroscopy was utilized to obtain a true lateral view of the L4 vertebral body. Jamshidi's were then placed along the midpoint of the pedicle . AP fluoroscopy was utilized to confirm that the Jamshidi's were located along the lateral border of the pedicle. The Jamshidi's were then advanced to the midp oint of the pedicle utilizing AP fluoroscopy. I then confirmed on lateral fluoro scopy that the Jamshidi's were past the midpoint of the pedicle. Again, using AP fluoroscopy, I further advanced the Jamshidi's a further 1 cm. At this point, l ateral fluoroscopy confirmed that the Jamshidi was within the vertebral body. I then advanced the Jamshidi to just past the midpoint of the vertebral body. A sa fety K-wire was then passed into position. I then oriented the fluoroscopy to en sure a true lateral and true AP of the L5 endplate and pedicles. I placed bilate ral K-wires in a similar manner to that described for the L4 pedicles. I then turned my attention to performing the discectomy / interbody fusion. The initial tubular dilator was then docked over the LEFT L4-L5 facet and the tissue serially dilated until the final tubular retractor was locked into position. The level was reconfirmed with AP / lateral fluoroscopy. The operating microscope was then brought into the field. A SportStylist TAC 125 drill was used to perform a LEFT L4-L5 facetectomy. The bone was saved for local autograft. The disc space was identified as was the superior / medial aspect of the LEFT L5 pedicle. The d isc space was incised. I then advanced various sized lee into the disc space . The lee were rotated and removed. Disc material was then removed with pitu itary forceps and curettes. The endplates were prepared with curettes and rasps. Autograft mixed bone marrow aspirate and Vivigen was then placed into the disc space utilizing a funnel. This was then pushed away from the trajectory of the c age. A Globus RISE cage was then filled with Vivigen / autograft and tapped into position. The cage position was then confirmed on AP and lateral fluoroscopy. T he cage was then expanded utilizing lateral fluoroscopy with excellent restorati on of foraminal height. The tubular retractor was then removed. The initial tubular dilator was then docked over the RIGHT L4-L5 facet and the t issue serially dilated until the final tubular retractor was locked into positio n. The soft tissue overlying the facet was cleared. The joint space was identifi ed and arthrodesed. Further autograft / Vivigen was placed into the joint. I then proceeded to place the pedicle screws. The following pedicle screws were placed into position: R L L4 6 x 45 6 x 40 L5 6 x 45 6 x 45 All screws were well placed on AP and lateral fluoroscopy. 45 mm rods were then passed into position and secured with set screws. The set screws were final tig htened appropriately. The X-tabs were then broken. The entire construct was conf irmed on AP and lateral fluoroscopy. The wound was then liberally irrigated with antibiotic irrigation and hemostasis ensured. Local anesthetic was administered into the surrounding muscle. The wou nd was again liberally irrigated with antibiotic irrigation. The wound was then closed in a layered manner using 0 vicryl for the fascia and then 3-0 suture for the subcutaneous and dermal layers. Dermabond was applied. All needle, sponge and instrument counts were correct. The patient was then awok en from general anesthesia in stable condition. The patient was then taken to re covery. The patient's exam remained stable postoperatively. Yobany Riddle PA-C, assisted with the exposure, decompression, placement of ins trumentation, and closure. Frank Abdi MD, MSc, FAANS Pager: [phone] 07/28/2015 12:15 PM documented in this encounter Plan of Treatment Care Team Description Date Type Specialty Mayank Novoa DO [address] [facility] [address] [place] [address] [phone] 06/17/2019 Appointment Pain Medicine Vikas Ross MD [address] [facility] [address] [place] [address] [phone] 07/03/2019 Office Visit Cardiology Order Schedule Name Type Priority Associated Diag noses 1 Occurrences starting 07/31/2015 until 01/30/2016 Amb Referral To Home Outpatient Routine [facility] Referral documented as of this encounter Procedures Comments Procedure Name Priority Date/Time Associated Diag nosis XR LUMBAR SPINE 2 OR 3 Routine 07/30/2015 VIEWS 4:29 PM CDT INTRAOPERATIVE Routine 07/28/2015 Lumbar stenosis NEUROPHYSIOLOGIC 12:[address] LUMBAR SPINE WO Routine 07/28/2015 CONTRAST 12:09 PM CDT XR LUMBAR SPINE 2 OR 3 Routine 07/28/2015 VIEWS 11:45 AM CDT FUSION, SPINE, LUMBAR, 07/28/2015 Radicular leg pain INTERBODY, TRANSFORAMINAL 8:01 AM CDT APPROACH, ONE LEVEL Special Needs Microscope , Metrx tubes, C arm, neuromonit oringLeft foot drop. Jose Guadalupe and Peter confirmed on ELECTROLYTES Routine 07/28/2015 6:50 AM CDT documented in this encounter Results * XR Lumbar Spine 2 or 3 views (07/30/2015 4:29 PM CDT) Only the most recent of 2 results within the time period is included. Specimen Impressions Performed At IMPRESSION: [facility] 1. Changes of L4-L5 posterior instrumen bradley and interbody fusion. Decreased anterolisthesis at this level . 2. Approximately 7 mm anterolisthesis o f L5 on S1. 3. Mild lumbar spondylosis. READING SITE: [facility] Imaging Narrative Performed At Patient: DALILA OBRIEN Sex#: F # [id number] Abdirizak#: [id number] Location: [address] Procedure Requested: [id number] XR LUMBA R SPINE 2 OR 3 VIEWS Reason for Exam: postop Exam Ordered: 07/30/2015 153 1 Check-in Date/Time: 07/30/2015 1630 XR LUMBAR SPINE 2 OR 3 VIEWS INDICATION: postop COMPARISON: 05/27/2015. FINDINGS: Changes of recent L4-L5 posterior instr umented and interbody fusion noted. Grade 1 anterolisthesis at this level noted, improved from preoperative studies, now measuring damaris roximately 8 mm. Anterolisthesis at L5-S1 also noted, me asuring approximately 7 mm. Mild disc disease noted in the upper to mid lumbar spine. Lower lumbar facet arthropathy. SI joint osteoarthri tis. Procedure Note Interface, Rad Results In - 07/30/2015 5:40 PM CDT Patient: DALILA OBRIEN Sex#: F # [id number] Abdirizak#: [id number] Location: [address]01 Procedure Requested: [id number] XR LUMBAR SPINE 2 OR 3 VIEWS Reason for Exam: postop Exam Ordered: 07/30/2015 1531 Check-in Date/Time: 07/30/2015 1630 XR LUMBAR SPINE 2 OR 3 VIEWS INDICATION: postop COMPARISON: 05/27/2015. FINDINGS: Changes of recent L4-L5 posterior instrumented and interbody fusion noted. Grade 1 anterolisthesis at this level noted, improved from preoperative studies, now measuring approximately 8 mm. Anterolisthesis at L5-S1 also noted, measuring approximately 7 mm. Mild disc disease noted in the upper to mid lumbar spine. Lower lumbar facet arthropathy. SI joint osteoarthritis. IMPRESSION: 1. Changes of L4-L5 posterior instrument ed and interbody fusion. Decreased anterolisthesis at this level. 2. Approximately 7 mm anterolisthesis of L5 on S1. 3. Mild lumbar spondylosis. READING SITE: [employer] [facility] Performing Organization Address City/State/Zipcode Ph one Number [place] * CT Lumbar Spine wo contrast (07/28/2015 12:09 PM CDT) Specimen Impressions Performed At FINDINGS/IMPRESSION: [place] Intraoperative CT guidance was used uti lized by the neurosurgical service. Total exam DAP is reported at 1335.50 mGycm2. Imaging demonstrates placement of leads /wires at the L4-L5 levels. These extend through the bilateral pedicles. Instrumented fusion was subsequently performed. Lower lumbar sp ine facet arthropathy is noted. There are degenerative changes of the b ilateral SI joints. Please see operative note for full deta ils regarding real-time findings. READING SITE: [employer] Imaging Narrative Performed At Patient: DALILA OBRIEN Sex#: F # [id number] Abdirizak#: [id number] Location: [facility] NI OR NONE Procedure Requested: [id number] CT LUMBA R SPINE WO CONTRAST Reason for Exam: L4-L5 TLIF Exam Ordered: 07/28/2015 075 1 Check-in Date/Time: 07/28/[address] LUMBAR SPINE WO CONTRAST INDICATION: L4-L5 TLIF COMPARISON: 05/27/2015. Procedure Note Interface, Rad Results In - 07/28/2015 12:46 PM CDT Patient: DALILA OBRIEN Sex#: F # [id number] Abdirizak#: [id number] Location: [facility] NI OR NONE Procedure Requested: [id number] CT LUMBAR SPINE WO CONTRAST Reason for Exam: L4-L5 TLIF Exam Ordered: 07/28/2015 0751 Check-in Date/Time: 07/28/[address] LUMBAR SPINE WO CONTRAST INDICATION: L4-L5 TLIF COMPARISON: 05/27/2015. FINDINGS/IMPRESSION: Intraoperative CT guidance was used utilized [...] full details regarding real-time findings. READING SITE: [facility] Imaging Performing Organization Address City/State/Zipcode Ph one Number [place] * Electrolytes (07/28/2015 6:50 AM CDT) Sodium 140 133 - 147 MEQ/L [facility] Potassium 4.3 3.5 - 5.3 MEQ/L [facility] Chloride 104 96 - 112 MEQ/L [facility] Carbon Dioxide 26 20 - 32 MEQ/L [facility] Anion Gap 9 5 - 17 [facility] Specimen Blood Performing Organization Address City/[facility] Ph one Number [address] [address] LABORATORIES documented in this encounter Visit Diagnoses Diagnosis Radicular leg pain documented in this encounter Administered Medications Action Date Dose Rate Site Medication Order MAR Action 07/28/2015 9:05 AM CDT Operativ e Site bacitracin 50,000 Units in sodium Given chloride irrigation (NS) 0.9 % 1,000 mL OR irrigation As needed, Starting 07/28/15 at 0905, Intra-op 07/28/2015 9:04 AM CDT 30 mL Operativ e Site Bupivacaine-EPINEPHrine (pf) Given (MARCAINE-PF w/EPI) 0.5 %-1:200,000 injection As needed, Starting 07/28/15 at 0904, Intra-op 07/28/2015 10:01 AM CDT Operativ e Site gelatin musocal powder (SURGIFOAM) 1 g Given powder with thrombin (RECOTHROM) 5000 units solution As needed, Starting 07/28/15 at 0904, Intra-op Operative Site Given 07/28/2015 9:04 AM CDT 07/28/2015 9:06 AM CDT 10 mL Other sodium chloride bacteriostatic 0.9 % Given injection As needed, Starting 07/28/15 at 0906, Intra-op 07/28/2015 9:05 AM CDT 1,000 mL Other sterile water irrigation irrigation Given solution As needed, Starting 07/28/15 at 0905, Intra-op 07/28/2015 11:29 AM CDT 1,000 mg Operativ e Site vancomycin (VANCOCIN) injection Given As needed, Starting 07/28/15 at 1129, Intra-op documented in this encounter
--- OUTSIDE RECORDS SUMMARY | 2019-06-07 16:07 | XMS REPORT | Encounter Summary ---
Author Author [facility] Organization [facility] Address Unknown Phone Unavailable Care Team Providers Care Wood Gluer Name Role Phone Shannon Falk PCP Reason for Referral * Auth/Cert (Routine) Referred By Contact Referred To Contact Status Reason Specialty Diagnoses / Procedures Yobany Riddle PA-C [address] [facility] [address] [place] [address] Diagnoses Radicular leg pain P rocedures Case request operating room: Left L4-L5 FUSION TRANSFORAMINAL LUMBAR INTERBODY SPINE TN ARTHDSIS POST/POSTEROLATRL/ POSTINTERBODY LUMBAR Encounter Details Care Team Description Date Type Department Yobany Riddle PA-C [address] [facility] [address] [place] [address] [phone] Radicular leg pain (Primary Dx) 06/08/2015 Orders Only [facility] [address] [place] [address] Social History Date Tobacco Use Types Packs/Day Years Used Never Smoker Drinks/Week oz/Week Comments Alcohol Use Yes Sex Assigned at Date Recorded Female Industry Job Start Date Occupation Not on file Not on file Not on file Travel End Travel History Travel Start No recent travel history available. documented as of this encounter Plan of Treatment Care Team Description Date Type Specialty Mayank Novoa DO [address] [facility] [address] [place], [place] [id number] 06/17/2019 Appointment Pain Medicine Vikas Ross MD [address] [facility] [address] [place] [address] [phone] 07/03/2019 Office Visit Cardiology documented as of this encounter Visit Diagnoses Diagnosis Radicular leg pain documented in this encounter
--- OUTSIDE RECORDS SUMMARY | 2019-06-07 16:07 | XMS REPORT | Encounter Summary ---
Author Author [facility] Organization [facility] Address Unknown Phone Unavailable Care Team Providers Care Perioperative Tech Name Role Phone Shannon Falk PCP Encounter Details Care Team Description Date Type Department Yobany Riddle PA-C [address] [facility] [address] [place] [address] [place], [place] [id number] Radicular leg pain 05/27/2015 [facility] [address] [facility] [address] [place] [address] Social History Date Tobacco Use Types Packs/Day [...] LEVOTHROID) 75 MCG tablet by mouth daily. 05/14/2015 09/15/2017 atorvastatin (LIPITOR) 40 Take 40 mg by 0 MG tablet mouth nightly. 05/07/2015 07/31/2015 celecoxib (CELEBREX) 200 0 MG capsule 04/23/2015 12/26/2018 gabapentin (NEURONTIN) Take 300 mg 0 600 MG tablet by mouth 2 (two) times a day. 03/24/2015 07/27/2015 GAVILYTE-G 236-22.74-6.74 0 -5.86 gram solution 05/13/2015 07/31/2015 HYDROcodone-acetaminophen Take 1-2 0 (NORCO) 7.5-325 mg per tablets by tabletIndications: pain mouth every 4 (four) hours as needed. 04/21/2015 09/15/2017 hydroxychloroquine Take 200 mg 0 [...] DO [address] [facility] [address] [place] [address] [phone] 06/17/2019 Appointment Pain Medicine Vikas Ross MD [address] [facility] [address] [place] [address] [phone] 07/03/2019 Office Visit Cardiology documented as of this encounter Procedures Comments Procedure Name Priority Date/Time Associated Diag nosis XR LUMBAR SPINE 2 OR 3 Routine 05/27/2015 Radicul ar leg pain VIEWS 9:42 AM CDT documented in this encounter Results * XR Lumbar Spine 2 or 3 views (05/27/2015 9:42 AM CDT) Specimen Impressions Performed At IMPRESSION: [facility] 1. 11 mm degenerative anterolisthesis a t L4-L5 without evidence of abnormal motion with flexion and extens ion. 2. Lower lumbar spondylosis. ATTESTATION STATEMENT: The Staff Radiologist has personally re viewed the images and dictated, reviewed, or edited the final report. READING SITE: [facility]. Narrative Performed At Patient: HARI OBRIEN Sex#: F # [id number] Abdirizak#: Location: [facility] XRAY Procedure Requested: [id number] XR LUMBA R SPINE 2 OR 3 VIEWS Reason for Exam: Radicular leg pain Exam Ordered: 05/27/2015 093 5 Exam Date/Time: 05/27/201542 Check-in Date/Time: 05/27/2015 09 XR LUMBAR SPINE 2 OR 3 VIEWS (latera l views in neutral, flexion, and extension) colon DATE: May 27, 2015 09:42:36 AM INDICATION: Radicular leg pain COMPARISON: 12/30/2014 lumbar MRI. FINDINGS: For the purposes of this ex am, the most distal lumbar type vertebra will be designated L5. Vertebral heights are normal. There is 11 mm anterolisthesis at L4-L5, likely degenerative. There is also trac e anterolisthesis at L5-S1. There is no abnormal motion between flexion a nd extension. There is degenerative disc disease at L 4-L5, with moderate to severe disc space height loss. There is also f acet osteoarthritis in the lower lumbar spine. Procedure Note Interface, Rad Results In - 05/27/2015 12:42 PM CDT Patient: HARI OBRIEN Sex#: F # [id number] Abdirizak#: Location: [facility] XRAY Procedure Requested: [id number] XR LUMBAR SPINE 2 OR 3 VIEWS Reason for Exam: Radicular leg pain Exam Ordered: 05/27/2015 0935 Exam Date/Time: 05/27/2015941 Check-in Date/Time: 05/27/2015 0935 XR LUMBAR SPINE 2 OR 3 VIEWS (lateral views in neutral, flexion, and extension) colon DATE: May 27, 2015 09:42:36 AM INDICATION: Radicular leg pain COMPARISON: 12/30/2014 lumbar MRI. FINDINGS: For the purposes of this exam, the most distal lumbar type vertebra will be designated L5. Vertebral heights are normal. There is 11 mm anterolisthesis at L4-L5, likely degenerative. There is also trace anterolisthesis at L5-S1. There is no abnormal motion between flexion and extension. There is degenerative disc disease at L4-L5, with moderate to severe disc space height loss. There is also facet osteoarthritis in the lower lumbar spine. IMPRESSION: 1. 11 mm degenerative anterolisthesis at L4-L5 without evidence of abnormal motion with flexion and extension. 2. Lower lumbar spondylosis. ATTESTATION STATEMENT: The Staff Radiologist has personally reviewed the images and dictated, reviewed, or edited the final report. READING SITE: [facility]. Performing Organization Address City/State/Zipcode Ph one Number [place] documented in this encounter Visit Diagnoses Diagnosis Radicular leg pain documented in this encounter
--- OUTSIDE RECORDS SUMMARY | 2019-06-07 16:07 | XMS REPORT | Encounter Summary ---
Author Author [facility] Organization [facility] Address Unknown Phone Unavailable Care Team Providers Care Surgical Asst Name Role Phone Shannon Falk PCP Reason for Visit * Auth/Cert (Routine) Referred By Contact Referred To Contact Status Reason Specialty Diagnoses / Procedures Yobany Riddle PA-C [address] [address] Diagnoses Radicular leg pain P rocedures Case request operating room: Left L4-L5 FUSION TRANSFORAMINAL LUMBAR INTERBODY SPINE ID ARTHDSIS POST/POSTEROLATRL/ POSTINTERBODY LUMBAR Encounter Details Care Team Description Date Type Department Hailey Boles MD [address] [place] [address] [phone] Jacki Farfan DO [address] [place] [address] [phone] 07/28/2015 Anesthesia [facility] [address] [place] [address] Anesthesia Record Responsible Anesthesiologist Anesthesia Start Time Anesthesi a Stop Time Procedure Name Hailey Boles MD 07/28/15 0801 07/28/15 1210 L4-L5 FUSION TRANSFORAMINAL LUMBAR INTERBODY SPINE (Left ) Date Time Event Comment 720 AN Equip Check 2015 723 08 In room 0801 An Start 0801 An Start Data 0801 Pt eval immediately prior to anesthesia 0803 Preoxygenated Prior to Induction 0808 An Induction 0810 An Intubation 0820 Anesthesia Ready 0832 Quick Note Pt prone, pressure points padded and checked, eyes checked and free of pressure 0842 Anesthesiologis t Present 0851 Procedure start - Primary Case 0914 Anesthesiologis t Present 1029 Anesthesiologis t Present 1144 Procedure stop - Primary case 1151 Spontaneous respirations 1151 Adequate Tidal Volume 1151 FiO2 to 100% Prior to Suctioning 1151 Suction 1155 An Extubation 1158 Oxygen per nasal cannula 1158 an stop data 1158 Transported with O2 1158 Out of Room 1210 An Stop Meds Name Total fentaNYL (SUBLIMAZE) injection 50 mcg/mL 125 mcg lidocaine 2% (PF) 80 mg propofol 10mg/mL 120 mg succinylcholine 20 mg/mL 120 mg ondansetron 2mg/mL 4 mg phenylepherine 0.1mg/mL 700 mcg ephedrine 10mg/mL 20 mg propofol infusion 10mg/mL 1,205.64 mg ceFAZolin (ANCEF) injection 2 g 2 g remifentanil (ULTIVA) 50 mcg/mL in 0.46 mg sodium chloride (NS) 0.9 % 40 mL ketamine 10 mg/mL 40 mg ketamine (KETALAR) 500 mg in sodium 34.33 mg chloride (NS) 0.9 % 250 mL infusion phenylephrine (FABRICIO-SYNEPHRINE) 10 mg in 7,596.96 mcg sodium chloride (NS) 0.9 % 250 mL infusion lactated ringers infusion 1,900 mL * Name O2 N2O Air EtISO EtDES EtN2O * No blood administrations on file. Removal Type Details Placement 07/30/15824 by Lyle Pedroza RN Peripheral Date: 07/28/15; Time: 652; Size 07/27 by Rita R IV (gauge): 20 G; Orientation: Left; Jordan taylor RN Location: Forearm; Insertion Attempts: 1; Inserted By: PERNELL; Removal Date: 07/30/15; Removal Time: 82407/28/15 115 by PEDRO Barroso Non-Surgic Date: 07/28/15; Time: 08; Able to mas k 07/28/15 08 by Peter alston Airway ventilate prior to placement: Yes; PEDRO Perera Placed By: Other (comment) (Puja Mata AAS); Site: Oral; Device: ETT - Cuffed; Size: 7; Units: Millimeters; Method: Video Laryngoscope; Blade Size: 3; Attempts: 1; Grade View: I; Misc: In-Line Stabilization Performed; Airway Observations: oropharynx clear, cords visualized, arytenoids visualized; Cuff Volume: 10; Placement Verified By: Auscultation, Capnometry; Secured At (cm): 23; Measured From: Lips; Removal Date: 07/28/15; Removal Time: 1155 07/28/15 1650 by Miguel Tubbs RN Urethral 07/28/15; 0820; Latex, Straight-tip; 16 07/28/15 0820 by Caren Méndez Catheter Fr.; Per order [facility] 09/09/18 0836 by User Mieplebatch (Retired 07/28/15; 0908; Back; 09/09/18 (This LD A 07/28/15 0908 by Caren Méndez 03/14/18; has been removed & completed via [facility] search automated utility); 0836 (T his LDA has "wound" if been removed & completed vi a automated placing utility) new) Wound - Incision Assessment documented in this encounter Social History Date Tobacco Use Types Packs/Day Years Used Never Smoker Drinks/Week oz/Week Comments Alcohol Use RARELY Yes Sex Assigned at Date Recorded Female Industry Job Start Date Occupation Not on file Not on file Not on file Travel End Travel History Travel Start No recent travel history available. documented as of this encounter Miscellaneous Notes * Anesthesia Postprocedure Evaluation - Ricardo Cabezas DO - 07/28/2015 3:25 PM CDT Patient: Dalila Thompsonb Procedure(s): L4-L5 FUSION TRANSFORAMINAL LUMBAR INTERBODY SPINE Final Anesthesia Type Performed: general *Block Type (if peripheral regional or epidural used): No value filed. Patient location: PACU Last Vitals: ANE Post Eval Vitals Most Recent Value BP 113/69 mmHg filed at 07/28/2015 1449 Pulse 82 filed at 07/28/2015 1449 Temp 36.2 C (97.2 F) filed at 07/28/2015 1337 Resp 15 filed at 07/28/2015 1449 SpO2 97 % filed at 07/28/2015 1449 Level of consciousness: awake, alert and oriented Post-anesthesia pain: adequate analgesia, improving with meds Airway patency: patent Respiratory: unassisted Cardiovascular: stable and blood pressure at baseline Hydration: adequate PostOp Nausea/Vomiting: controlled Difficult Airway: no Anesthetic complications: no Discharge from anesthesia care: Appropriate for discharge from anesthesia care, no apparent anesthesia related complications * Anesthesia Preprocedure Evaluation - Hailey Boles MD - 07/28/2015 7:20 AM CDT Anesthesia Evaluation Patient summary reviewed NO history of alcohol and tobacco use. Airway Mallampati: II Dental Comment: Small chip in front incisor, otherwise teeth intact Pulmonary - negative ROS Lung sounds: normal (+) Cardiovascular Heart sounds: normal (+) hypertension, (-) murmur Rhythm: regular Rate: normal Neuro/Psych Comments: Chronic pain GI/Hepatic/Renal (+) GERD (s/p Linsey, no further issues) well controlled, Endo/Other (+) hypothyroidism, (-) diabetes mellitus Abdominal Obstetrics HEENT Musculoskeletal (+) RA Anesthesia Plan ASA 2 Type: general () Plan to include: ETT and GlideScope ETT: oral Anesthetic plan and risks discussed with patient. Plan discussed with anesthesiologist financial planning assistant. Post-operative analgesia: routine analgesia and antiemetics Recovery plan: PACU Risk factors for PONV: female PONV risk level: high Notes 64 yo female presenting for L4-5 fusion documented in this encounter Plan of Treatment Care Team Description Date Type Specialty Mayank Novoa DO [address] [facility] [address] [place] [address] [phone] 06/17/2019 Appointment Pain Medicine Vikas Ross MD [address] [facility] [address] [place] [address] [phone] 07/03/2019 Office Visit Cardiology documented as of this encounter Visit Diagnoses Not on filedocumented in this encounter Administered Medications Action Date Dose Rate Site Medication Order MAR Action 07/28/2015 8:48 AM CDT 2 g ceFAZolin (ANCEF) injection 2 g Given 2 g, Intravenous, 60 min pre-op, Indications: PERIOPERATIVE, Starting 07/28/15 at 0633, For 1 dose, Pre-op, To be started within 1 hour of incision. If giving IV push, reconstitute each vial with 10 ml sterile water and give over 2-3 minutes, 07/28/2015 8:37 AM CDT 10 mg EPHEDrine 10 mg/mL syringe Given As needed, Starting Mon07/28/15 at 0824, Anesthesia Intra-op 10 mg Given 07/28/2015 8:24 AM CDT 07/28/2015 11:45 AM CDT 25 mcg fentaNYL (SUBLIMAZE) injection Given As needed, Starting Mon07/28/15 at 0808, Anesthesia Intra-op 100 mcg Given 07/28/2015 8:08 AM CDT 07/28/2015 8:13 AM CDT 2.083 mcg/kg/min 5.1 mL/hr ketamine (KETALAR) 500 mg in sodium New Bag chloride (NS) 0.9 % 250 mL infusion 500 mg, Continuous PRN, Starting Mon07/28/15 at 0813, Anesthesia Intra-op 07/28/2015 8:13 AM CDT 40 mg ketamine (KETALAR) injection Given As needed, Starting Mon07/28/15 at 0813, Anesthesia Intra-op 07/28/2015 12:17 PM CDT 50 mL/hr 50 mL/hr lactated ringers infusion New Bag 50 mL/hr, Intravenous, Continuous, Starting Mon07/28/15 at 0700, Pre-op 50 mL/hr 50 mL/hr Restarted 07/28/2015 11:59 AM CDT New Bag 07/28/2015 10:05 AM CDT 07/28/2015 8:08 AM CDT 80 mg lidocaine (pf) (XYLOCAINE-MPF) 20 mg/mL Given (2 %) injection As needed, Starting Mon07/28/15 at 0808, Anesthesia Intra-op 07/28/2015 11:20 AM CDT 4 mg ondansetron (ZOFRAN) 4 mg/2 mL injection Given As needed, nausea, vomiting, Starting 07/28/15 at 1120, Anesthesia Intra-op 07/28/2015 9:21 AM CDT 0.65 mcg/kg/min 79.56 mL/hr phenylephrine (FABRICIO-SYNEPHRINE) 10 mg in Rate/Dose sodium chloride (NS) 0.9 % 250 mL Change infusion 10 mg, Continuous PRN, Starting Mon07/28/15 at 0909, Anesthesia Intra-op 0.5 mcg/kg/min 61.2 mL/hr New Bag 07/28/2015 9:09 AM CDT 07/28/2015 9:07 AM CDT 100 mcg phenylephrine HCl in 0.9% NaCl Given (NEOSYNEPHRINE) 1 mg/10 mL (100 mcg/mL) injection As needed, Starting Mon07/28/15 at 0832, Anesthesia Intra-op 100 mcg Given 07/28/2015 8:58 AM CDT 100 mcg Given 07/28/2015 8:50 AM CDT 07/28/2015 8:13 AM CDT 75 mcg/kg/min 36.72 mL/hr propofol (DIPRIVAN) infusion 10 mg/mL New Bag Continuous PRN, Starting Mon07/28/15 at 0813, Anesthesia Intra-op 07/28/2015 8:08 AM CDT 120 mg propofol (DIPRIVAN) injection Given As needed, Starting Mon07/28/15 at 0808, Anesthesia Intra-op 07/28/2015 8:59 AM CDT 0.025 mcg/kg/min 2.45 mL/hr remifentanil (ULTIVA) 50 mcg/mL in Rate/Dose sodium chloride (NS) 0.9 % 40 mL Change 2,000 mcg, Continuous PRN, Starting Mon07/28/15 at 0813, Anesthesia Intra-op 0.04 mcg/kg/min 3.92 mL/hr New Bag 07/28/2015 8:13 AM CDT 07/28/2015 8:08 AM CDT 120 mg succinylcholine (ANECTINE) injection Given As needed, Starting Mon07/28/15 at 0808, Anesthesia Intra-op documented in this encounter
--- OUTSIDE RECORDS SUMMARY | 2019-06-07 16:07 | XMS REPORT | Encounter Summary ---
Author Author [facility] Organization [facility] Address Unknown Phone Unavailable Care Team Providers Care Orthotic/Prosthetic Practitioner Name Role Phone Shannon Falk PCP Encounter Details Care Team Description Date Type Department Venice Hernandez RN 07/30/2015 Telephone [facility] [address] [place] [address] Social History Date Tobacco Use Types Packs/Day Years Used Never Smoker Drinks/Week oz/Week Comments Alcohol Use RARELY Yes Sex Assigned at Date Recorded Female Industry Job Start Date Occupation Not on file Not on file Not on file Travel End Travel History Travel Start No recent travel history available. documented as of this encounter Miscellaneous Notes * Telephone Encounter - Venice Matute LPN - 07/30/2015 11:33 AM CDT Hanna, critical care cns from [facility], states that PT is recommending a walker and as ks that we place [place]. [place] [phone]. documented in this encounter Plan of Treatment Care Team Description Date Type Specialty Mayank Novoa DO [address] [facility] [address] [place] [address] [phone] 06/17/2019 Appointment Pain Medicine Vikas Ross MD [address] [facility] [address] [place] [address] [phone] 07/03/2019 Office Visit Cardiology documented as of this encounter Visit Diagnoses Not on filedocumented in this encounter
--- OUTSIDE RECORDS SUMMARY | 2019-06-07 16:07 | XMS REPORT | Encounter Summary ---
Author Author [facility] Organization [facility] Address Unknown Phone Unavailable Care Team Providers Care Automatic Paint Sprayer Operator Name Role Phone Shannon Falk PCP Encounter Details Care Team Description Date Type Department Frank Abdi MD [address] [facility] [address] [place] [address] Radicular leg pain (Primary Dx) 08/26/2015 Office Visit [facility] [address] [facility] [address] [place] [address] Social History Date Tobacco Use Types Packs/Day [...] Signs Reading Time Taken Comments Vital Sign 128/72 08/26/2015 10:54 AM CDT Blood Pressure 68 08/26/2015 10:54 AM CDT Pulse - - Temperature - - Respiratory Rate - - Oxygen Saturation - - Inhaled Oxygen Concentration 79.7 kg (175 lb 10.6 oz) 08/26/2015 10:54 AM CDT Weight 162.6 cm (5' 4") 08/26/2015 10:54 AM CDT Height 30.15 08/26/2015 10:54 AM CDT Body Mass Index documented in this encounter Plan of Treatment Care Team Description Date Type Specialty Mayank Novoa DO [address] [facility] [address] [place] [address] [phone] 06/17/2019 Appointment Pain Medicine Vikas Ross MD [address] [place] [address] [place] [address] [phone] 07/03/2019 Office Visit Cardiology documented as of [...] the findings in this report. READING SITE: [facility] The Staff Radiologist has personally re viewed the images and dictated, reviewed, or edited the final report. Narrative Performed At Patient: HARI OBRIEN Sex#: F # [id number] Abdirizak#: [id number] Location: [facility] XRAY Procedure Requested: [id number] XR LUMBA R SPINE 2 OR 3 [...] HARI OBRIEN Sex#: F # [id number] Abdirizak#: [id number] Location: [facility] XRAY Procedure Requested: [id number] XR LUMBAR SPINE 2 OR 3 VIEWS [...] the findings in this report. READING SITE: [facility] The Staff Radiologist has personally reviewed the images and dictated, reviewed, or edited the final report. Performing Organization Address City/State/Zipcode Ph marcie JADE documented in this encounter Visit Diagnoses Diagnosis Radicular leg pain documented in this encounter
--- OUTSIDE RECORDS SUMMARY | 2019-06-07 16:07 | XMS REPORT | Encounter Summary ---
Author Author [facility] Organization [facility] Address Unknown Phone Unavailable Care Team Providers Care [employer] Liaison Officer Name Role Phone Shannon Falk PCP Reason for Referral * Home Health Care (Routine) Referred By Contact Referred To Contact Status Reason Specialty Diagnoses / Procedures Frank Abdi MD [address] [facility] [address] [place] [address] Canceled Specialty Services Home Health Diagnoses Required Services Gait disturbance Reason for Visit * Auth/Cert (Routine) Referred By Contact Referred To Contact Status Reason Specialty Diagnoses / Procedures Yobany Riddle PA-C [address] [facility] [address] [place] [address] Diagnoses Radicular leg pain P rocedures Case request operating room: Left L4-L5 FUSION TRANSFORAMINAL LUMBAR INTERBODY SPINE [place] ARTHDSIS POST/POSTEROLATRL/ POSTINTERBODY LUMBAR Encounter Details Care Team Description Date Type Department Frank Abdi MD [address] [facility] [address] [place], [place] [id number] Gait disturbance (Primary Dx); [facility] [address] 07/31/2015 [place], [place] [id number] Social History Date Tobacco Use Types Packs/Day [...] pt. This RN thanked pt. For choosing [facility]. * Yobany Riddle PA-C - 07/31/2015 7:31 AM CDT [facility] NEUROSURGERY INPATIENT DISCHARGE SUMMARY Patient: Dalila Obrien Age: 67 y.o. : 1950 Admit Date: 07/28/2015 Discharge Date and Time: 07/31/2015 6:11 PM On the day of admission, the patient was brought to the operative theater for L4 -L5 TLIF. The intraoperative and immediate postoperative course were uncomplica bradley. The patient was transferred from recovery to the general neurosurgical [facility]. There, she recovered well and progressed well [...] * Instructions* Yobany Riddle PA-C - 07/31/2015 [facility] Clinic [address], [address] [place] [address] Lumbar Surgery Post Operative Instructions No lifting [...] up is in 3 weeks. Please call [phone] to schedule documented in this encounter Medications [...] LMSW - 07/31/2015 3:00 PM CDT 07/31/15 1013 Interventions Interventions D/C plan set up;Physician discussion [...] as ordered by the physician. * Josie Beasley, RN ANP-C - 07/31/2015 2:40 PM CDT [...] CDT I reviewed the note with the BENEFIT DIRECTOR and agree with the treatment plan. Faheem Mercado MD 08/03/2015 10:49 AM * Angela Clark, [employer] [employer] - 07/31/2015 2:29 PM CDT 07/31/15 1429 Discharge Planning Anticipated discharge destination Home Self Care Interventions Interventions Met with patient;Phone contact Met with the patient at bedside, she has now decided to go home with her melinda r. Contacted acute rehab at [facility], canceled the referral. * Angela Clark LMSW - 07/31/2015 2:04 PM CDT 07/31/15 1404 Interventions Interventions Phone contact Spoke with Venice Nuclear Operator at [facility] acute rehab, admission RN is st campos in the process of reviewing the patient's clinical documentation. Venice conley call back with a decision as soon as possible. Angela Clark LMSW [phone] * Frank Abdi MD - 07/31/2015 7:46 AM CDT [facility] Neurosurgery Daily Progress Note Patient Name: Dalila [...] or home today Yobany Riddle PA-C Neurosurgery [facility] She is interested in going home. She refused home health, but will consider out patient PT. Reviewed all postoperative instructions, no NSAIDs, use vitamin D / calcium. We will initiate outpatient PT starting next week. We also will disc uss resuming RA medications w/ occupational health physiotherapist next week. Otherwise patient desc ribes no radicular symptoms, only incisional pain. She feels that her strength is improving. Frank Abdi MD, MSc, FAANS Pager: [phone] 07/31/2015 7:46 AM * Hanna Liao RN - 07/30/2015 12:21 PM CDT 07/30/15 1220 Referral Data Referral Source Care Progression Referral Reason Discharge planning;Initial Assessment Patient Information Primary Caregiver Self Information obtained from: patient Support System Spouse/significant other;Children Living Arrangement House Assistive Devices Assistive Devices None Income Information Income Source Not employed Not employed Retired Government Assistance Medicare Resources Available Rx benefits Top Stitcher met with patient at bedside to complete initial assessment. Add ress/ Insurance/ PCP verified with patient. Pharmacy updated. Patient on day 2 of admission for lumbar stenosis. L4-5 TLIF on 07/28/15. PT/OT veronica doyle. PMR consulted and recommended outpt PT/OT. PT recommended walker. DAVID Rodríguez called at [phone]. Message about needing a walker order l [...] daughter's home w/outpt PT/OT when medically stable. Top Stitcher will cont to follow. * Frank Abdi MD - 07/30/2015 7:54 AM CDT [facility] Neurosurgery Daily Progress Note Patient Name: Dalila [...] - Encourage OOBTC - Encourage IS Yobany Riddle PA-C Neurosurgery [facility] Doing well. May want to go home tomorrow. Otherwise radicular symptoms markedl y improved. Frank Abdi MD, MSc, FAANS Pager: [phone] 07/30/2015 7:54 AM * Frank Abdi MD - 07/29/2015 7:49 AM CDT [facility] Neurosurgery Daily Progress Note Patient Name: Dalila [...] heparin to start this p.m. - Encourage OOBTC Yobany Riddle PA-C Neurosurgery [facility] Doing well. Radicular symptoms improved. Frank Abdi MD, MSc, FAANS Pager: [phone] 07/29/2015 7:49 AM documented in this encounter H&P Notes * Frank Abdi MD - 07/28/2015 7:54 AM CDT [facility] NEUROSURGERY CONSULT NOTE NAME: Dalila Obrien : 1950 ADMISSION DATE: 07/28/2015 PRIMARY CARE PROVIDER: Shannon Falk MD CONSULT DATE: 07/28/2015 CHIEF COMPLAINT: Left foot weakness HISTORY OF PRESENT ILLNESS: I am seeing Dalila Thompsonb in neurosurgical preoperativ e evaluation for a [...] 10 mg by mouth daily. 07/28/2015 at [facility] time atorvastatin (LIPITOR) 40 MG tablet Take [...] 100 mg by mouth daily. 07/27/2015 at [facility] time CURRENT MEDICATIONS: Current Facility-Administered Medications Medication Dose Route Frequency Provider Last Rate Last Dose ceFAZolin (ANCEF) injection 2 g 2 g Intravenous 60 Min Pre-Op Frank fishman MD dexamethasone (DECADRON) injection 8 mg 8 mg Intravenous Once Hailey Boles MD dextrose 5% lactated ringers infusion lactated ringers infusion 50 mL/hr Intravenous Continuous Jacki yap DO lidocaine (pf) (XYLOCAINE-MPF) 10 mg/mL (1 %) [...] improvement. Frank Abdi MD, MSc, FAANS Pager: [phone] 07/28/2015 7:54 AM documented in this encounter [...] EMG activity was ob served. . Pager: [phone]. documented in this encounter Consult Notes * Angela Clark LMSW - 07/31/2015 10:36 AM CDT Associated Order(s): CONSULT TO CARE INTEGRATION Met with patient at bedside, patient was planning on staying with her daughter arcadio n the [facility] following surgery. Patient feels she needs to be stronge r and needs more therapy prior to returning to a home setting. Informed patient [facility] has an inpatient acute rehab and offered patient a list of acute r ehabs in the [facility]. Patient requested a referral to [facility]. Spoke with Venice at [facility] [phone] and faxed referral to . SW will continue to follow. Angela Clark LMSW [phone] * Yandel Garcia MD - 07/29/2015 10:59 AM CDT [facility] 07/29/2015 Patient Identification Patient's Name: Dalila Obrien [...] a two-wheel walker in Jan 2015 because 10 back pain. However, for the last several months, she has not been using a ssistive devices for ambulation despite several falls because of foot drop. Her biggest issues were getting into and out of bathtub, and she limited her commun ity ambulation because of back pain and foot weakness. Ms. Obrien has rheumatoid arthritis and a history of rotator cuff repairs. Barrington yap, she reports that her current medication regimen [...] two story house with h er in [place], [place] with two steps to enter. Guest [...] extensio n, wrist extension, finger abduction and telephone lineman. 5/5 in R leg with hip flexion, [...] concerns. Yandel Garcia MD Internal Medicine, PGY-1 [phone] Electronically signed by Yandel Garcia M.D. 07/29/2015 [...] us with any qu estions or concerns Faheem Mercado MD 07/29/2015 3:28 PM documented in this encounter Nursing Notes * Lydia Warren RN - 07/27/2015 12:25 PM CDT PT [...] Stair Management Technique No rails;Step to pattern;Forwards (TUNG NUT GROWER L, use of wall on R) Stair [...] she is discharging to her daughter's house. COURTROOM CLERK Angela given update Problem: Pain Goal: Patients [...] in recliner with nursing staff present and Sulky Driver a rrived to transfer pt to PT [...] On 07/30/15 ADL Adaptive Equipment/Durable Medical Equipment Barn Operator;Sock aid Lower Body Dressing Minimal Assistance Lower [...] Outcome: Progressing * Therapy Note - Ashley Montez PT - 07/30/2015 12:11 PM CDT 07/30/15 [...] Assistive Device None Prior Function Level of [place] Independent with ADLs;Independent with functional transfer s;Independent [...] daughter at d/c Prior Function Level of [place] Independent with ADLs;Independent with functional transfer s;Independent [...] Gait Gait Distance (Feet) 100 Assistive Device TUNG NUT GROWER;Right (hallway rail L) Gait Level Surface Assistance [...] Abdi MD - 07/28/2015 12:15 PM CDT [facility] NEUROSURGERY OPERATIVE NOTE NAME: Dalila Obrien : [...] Arm SURGEON: Frank Abdi MD, MSc, FAANS RESIDENT/DAY CARE HOME PROVIDER: Yobany Riddle PA-C ANESTHESIA: GET EBL: <30 [...] endotracheal anesthesia. Neuromonitoring electrodes were placed by water supply technician. The patient was then prone onto [...] was then brought into the field. A Zoopla TAC 125 drill was used to perform [...] closure. Frank Abdi MD, MSc, FAANS Pager: [phone] 07/28/2015 12:15 PM documented in this encounter Plan of Treatment Care Team Description Date Type Specialty Mayank Novoa DO [address] [facility] [address] [place] [address] [phone] 06/17/2019 Appointment Pain Medicine Vikas Ross MD [address] [facility] [address] [place] [address] [phone] 07/03/2019 Office Visit Cardiology Order Schedule Name Type Priority Associated Diag noses 1 Occurrences starting 07/31/2015 until 01/30/2016 Amb Referral To Home Outpatient Routine [facility] Referral documented as of this encounter Procedures [...] S1. 3. Mild lumbar spondylosis. READING SITE: [facility] Imaging Narrative Performed At Patient: DALILA OBRIEN Sex#: F # 1950 Abdirizak#: [id number] Location: [address] N[address]-01 Procedure Requested: [id number] XR LUMBA R SPINE 2 OR 3 [...] DALILA OBRIEN Sex#: F # 1950 Abdirizak#: [id number] Location: [address] N402-01 Procedure Requested: [id number] XR LUMBAR SPINE 2 OR 3 VIEWS [...] S1. 3. Mild lumbar spondylosis. READING SITE: [facility] Performing Organization Address City/State/Zipcode Ph one Number [place] * CT Lumbar Spine wo contrast (07/28/2015 12:09 PM CDT) Specimen Impressions Performed At FINDINGS/IMPRESSION: [place] Intraoperative CT guidance was used uti lized [...] deta ils regarding real-time findings. READING SITE: [facility] Narrative Performed At Patient: DALILA OBRIEN Sex#: F # 1950 Abdirizak#: [id number] Location: [facility] NI OR NONE Procedure Requested: [id number] CT LUMBA R SPINE WO CONTRAST Reason for Exam: L4-L5 TLIF Exam Ordered: 07/28/2015 075 1 Check-in Date/Time: 07/28/[address] LUMBAR SPINE WO CONTRAST INDICATION: L4-L5 TLIF COMPARISON: 05/27/2015. Procedure Note Interface, Rad Results In - 07/28/2015 12:46 PM CDT Patient: DALILA OBRIEN Sex#: F # 1950 Abdirizak#: [id number] Location: [facility] NI OR NONE Procedure Requested: [id number] CT LUMBAR SPINE WO CONTRAST Reason for [...] full details regarding real-time findings. READING SITE: [facility] Imaging Performing Organization Address City/State/Zipcode Ph one Number [place] * Electrolytes (07/28/2015 6:50 AM CDT) Sodium 140 133 - 147 MEQ/L [facility] Potassium 4.3 3.5 - 5.3 MEQ/L [facility] Chloride 104 96 - 112 MEQ/L [facility] Carbon Dioxide 26 20 - 32 MEQ/L [facility] Anion Gap 9 5 - 17 [facility] Specimen Blood Performing Organization Address City/State/Zipcode Ph one Number [address] [address] LABORATORIES documented in this encounter Visit Diagnoses Diagnosis Radicular leg pain Gait disturbance Abnormality of gait documented in this encounter Administered Medications Action Date Dose Rate Site Medication Order MAR Action 07/28/2015 7:31 AM CDT 1,000 mg acetaminophen (TYLENOL) tablet 1,000 mg Given 1,000 mg, Oral, Once, 07/28/15 at 0745, For 1 dose, Pre-op, Do not exceed 4 GM/DAY of acetaminophen. If 65 or older do not exceed 3 GM/DAY. If chroni c alcoholic do not exceed 2 GM/DAY., 07/28/2015 1:38 PM CDT 1,000 mg acetaminophen (TYLENOL) tablet 1,000 mg Given 1,000 mg, Oral, Once, Mon07/28/15 at 1300, For 1 dose, PACU (only), Do not exceed 4 GM/DAY of acetaminophen. If 6 5 or older do not exceed 3 GM/DAY. If chronic alcoholic do not exceed 2 GM/DAY., 07/31/2015 10:01 AM CDT 10 mg amLODIPine (NORVASC) tablet 10 mg Given 10 mg, Oral, Daily, First dose on Mon07/28/15 at 1800 10 mg Given 07/30/2015 8:07 AM CDT 10 mg Given 07/29/2015 9:55 AM CDT 07/30/2015 9:02 PM CDT 40 mg atorvastatin (LIPITOR) tablet 40 mg Given 40 mg, Oral, Nightly, First dose on Mon07/28/15 at 2100 40 mg Given 07/29/2015 8:43 PM CDT 40 mg Given 07/28/2015 8:32 PM CDT 07/29/2015 2:35 AM CDT 2 g 100 mL/hr ceFAZolin 2 gm (ANCEF) in 50 mL NS New Bag 2 g, Intravenous, at 100 mL/hr, Every 8 hours, Indications: PERIOPERATIVE, Firs t dose on Mon07/28/15 at 1730, For 2 doses 2 g 100 mL/hr New Bag 07/28/2015 8:36 PM CDT 07/31/2015 6:40 AM CDT 20 mg citalopram (CeleXA) tablet 20 mg Given 20 mg, Oral, Every morning, First dose on Mon07/29/15 at 0700 20 mg Given 07/30/2015 5:14 AM CDT 20 mg Given 07/29/2015 9:56 AM CDT 07/28/2015 7:54 AM CDT 8 mg dexamethasone (DECADRON) injection 8 mg Given 8 mg, Intravenous, Once, Mon07/28/15 at 0745, For 1 dose, Pre-op 07/31/2015 6:50 AM CDT 100 mg docusate sodium (COLACE) capsule 100 mg Given 100 mg, Oral, 2 times daily PRN, constipation, stool softening, Starting Mon07/28/15 at 1151, Hold these medications if patient has had loose stool or diarrhea within previous 24 hours., 100 mg Given 07/30/2015 9:05 PM CDT 100 mg Given 07/30/2015 8:07 AM CDT 07/28/2015 1:15 PM CDT 50 mcg fentaNYL (SUBLIMAZE) 50 mcg/mL injection Given 25-50 mcg 25-50 mcg, Intravenous, Every 5 min PRN , pain, Starting Mon07/28/15 at 1138, PACU (only), Give only if RR is greater than 8 breaths/min. Maximum of 200 mcg in 2 hours., 50 mcg Given 07/28/2015 1:01 PM CDT 50 mcg Given 07/28/2015 12:18 PM CDT 07/28/2015 7:31 AM CDT 400 mg gabapentin (NEURONTIN) capsule 400 mg Given 400 mg, Oral, Once, Mon07/28/15 at 0745, For 1 dose, Pre-op 07/31/2015 1:36 PM CDT 5,000 Units Left Arm heparin (porcine) 5,000 unit/mL Given injection 5,000 Units 5,000 Units, Subcutaneous, Every 8 hours, First dose on Mon07/29/15 at 1400 5,000 Units Right Arm Given 07/31/2015 6:41 AM CDT 5,000 Units Abdominal Tissue Given 07/30/2015 9:05 PM CDT 07/28/2015 12:48 PM CDT 0.5 mg HYDROmorphone (DILAUDID) injection Given 0.25-0.5 mg 0.25-0.5 mg, Intravenous, Every 5 min PRN, severe pain (pain score 7-10), teto n unrelieved by fentanyl and morphine., Starting Mon07/28/15 at 1138, PACU (only), Give only if RR is greater than 8 breaths/min. Maximum of 4 mg in 3 hours., 0.5 mg Given 07/28/2015 12:42 PM CDT 0.5 mg Given 07/28/2015 12:34 PM CDT 07/28/2015 12:17 PM CDT 50 mL/hr 50 mL/hr lactated ringers infusion New Bag 50 mL/hr, Intravenous, Continuous, Starting Mon07/28/15 at 0700, Pre-op 50 mL/hr 50 mL/hr Restarted 07/28/2015 11:59 AM CDT New Bag 07/28/2015 10:05 AM CDT 07/31/2015 6:40 AM CDT 75 mcg levothyroxine (SYNTHROID, LEVOTHROID) Given tablet 75 mcg 75 mcg, Oral, Daily, First dose on Mon07/28/15 at 1700, Take on empty stomach , 75 mcg Given 07/30/2015 5:14 AM CDT 75 mcg Given 07/29/2015 9:56 AM CDT 07/31/2015 10:01 AM CDT 100 mg losartan (COZAAR) tablet 100 mg Given 100 mg, Oral, Daily, First dose on Mon07/28/15 at 1800 100 mg Given 07/30/2015 8:07 AM CDT 100 mg Given 07/29/2015 9:56 AM CDT 07/28/2015 12:44 PM CDT 750 mg methocarbamol (ROBAXIN) tablet 750 mg Given 750 mg, Oral, 4 times daily, First dose on Mon07/28/15 at 1300, PACU (only) 07/31/2015 4:28 AM CDT 750 mg methocarbamol (ROBAXIN) tablet 750 mg Given 750 mg, Oral, 3 times daily PRN, muscle spasms, Starting Mon07/28/15 at 1347 750 mg Given 07/29/2015 5:32 PM CDT 750 mg Given 07/28/2015 8:32 PM CDT 07/30/2015 8:07 AM CDT 4 mg morphine 1-4 mg Given 1-4 mg, Intravenous, Every 4 hours PRN, severe pain (pain score 7-10), Starting Mon07/28/15 at 1153 4 mg Given 07/29/2015 8:42 PM CDT 4 mg Given 07/28/2015 10:59 PM CDT 07/31/2015 11:34 AM CDT 15 mg oxyCODONE (ROXICODONE) immediate release Given tablet 15 mg 15 mg, Oral, Every 4 hours PRN, moderat e pain (pain score 4-6), severe pain (teto n score 7-10), Starting Mon07/29/15 at 141 0 15 mg Given 07/31/2015 6:41 AM CDT 15 mg Given 07/30/2015 9:05 PM CDT 07/29/2015 6:17 AM CDT 2 tablets oxyCODONE-acetaminophen (PERCOCET) 5-325 Given mg 1-2 tablet 1-2 tablet, Oral, Every 4 hours PRN, severe pain (pain score 7-10), Starting Tu07/28/15 at 1153, Do not exceed 4 GM/DAY of acetaminophen. If 65 or olde r do not exceed 3 GM/DAY. If chronic alcoholic do not exceed 2 GM/DAY., 2 tablets Given 07/28/2015 8:31 PM CDT 2 tablets Given 07/28/2015 3:05 PM CDT 07/29/2015 9:58 AM CDT 1 tablet oxyCODONE-acetaminophen (PERCOCET) Given 7.5-325 mg per tablet 1-2 tablet 1-2 tablet, Oral, Every 4 hours PRN, moderate pain (pain score 4-6), Startin g 07/29/15 at 0756, Do not exceed 4 GM/DAY of acetaminophen. If 65 or olde r do not exceed 3 GM/DAY. If chronic alcoholic do not exceed 2 GM/DAY., 07/31/2015 6:50 AM CDT 17 g polyethylene glycol (GLYCOLAX) packet 17 Given g 17 g, Oral, Daily PRN, constipation, constipation, Starting Mon07/28/15 at 1151, Hold these medications if patient has had loose stool or diarrhea within previous 24 hours., 07/28/2015 1:50 PM CDT 80 mL/hr 80 mL/hr sodium chloride 0.9 % with KCl 20 mEq/L New Bag infusion 80 mL/hr, Intravenous, Continuous, Starting Mon07/28/15 at 1215 documented in this encounter
--- OUTSIDE RECORDS SUMMARY | 2019-06-07 16:07 | XMS REPORT | Encounter Summary ---
Author Author [facility] Organization [facility] Address Unknown Phone Unavailable Care Team Providers Care Hand Stonecutter Name Role Phone [place], Shannon PCP Encounter Details Care Team Description Date Type Department Frank Abdi MD [address] [place], [place] [id number] Spondylolisthesis of lumbar region (Prim marisol Dx) 06/08/2015 [facility] [address] [place], [place] [id number] Social History Date Tobacco Use Types Packs/Day Years Used Never Smoker Drinks/Week oz/Week Comments Alcohol Use Yes Sex Assigned at Date Recorded Female Industry Job Start Date Occupation Not on file Not on file Not on file Travel End Travel History Travel Start No recent travel history available. documented as of this encounter Last Filed Vital Signs Reading Time Taken Comments Vital Sign 108/62 06/08/2015 11:41 AM CDT Blood Pressure 77 06/08/2015 11:41 AM CDT Pulse - - Temperature - - Respiratory Rate - - Oxygen Saturation - - Inhaled Oxygen Concentration 84.9 kg (187 lb 3.2 oz) 06/08/2015 11:41 AM CDT Weight 162.6 cm (5' 4") 06/08/2015 11:41 AM CDT Height 32.13 06/08/2015 11:41 AM CDT Body Mass Index documented in this encounter Progress Notes * Frank Abdi MD - 06/08/2015 11:13 AM CDT Neurologic Surgery Return Patient Note Patient ID: Dalila Hameed is a 64 y.o. female. HPI: Patient presents with continued complaints of left foot drop. She does not note significant pain but does complain that the foot is causing her to be unstable when ambulating. She is following up on recent lumbar flexion and extension x-r ays as well as a DEXA bone scan. She has an appointment with rheumatology later today. ANGELA: 18 Lumbar flexion and extension views demonstrate no significant change from flexio n to extension to neutral. However when compared to the T2-weighted sagittal im ages there is significant motion from supine to standing. DEXA scan demonstrates a T score of -1.9 in the lumbar spine which is consistent with osteopenia. Review of Systems Constitutional: (-) fever, (-) change of appetite, (-) fatigue CV: (+) chest pain GI: (-) bloody/tarry stools, (-) abdominal pain, (-) weight loss, (-) diarrhea, (-) weight gain, (-) constipation : (-) difficulty urinating ENDO: (-) excessive hunger/thirst, (-) loss of libido, (-) spontaneous nipple di scharge PSYCH: (-) depression, (-) memory problems HEM: (+) easy bruising, (-) easy bleeding HEENT: (-) visual changes, (-) seasonal allergies SKIN: (-) rash/ skin condition PULM: (-) SOB MUSCULOSKELETAL: (+) muscle aches or pain Objective: BP 108/62 mmHg | Pulse 77 | Ht 1.626 m (5' 4") | Wt 84.913 kg (187 lb 3.2 oz) | BMI 32.12 kg/m2 Physical Exam Constitutional: Dalila is alert and oriented. No acute distress. Steppage gait. 5 of 5 strength bilateral lower extremities with the exception of 3 out of 5 in left dorsiflexion and EHL. Sensation intact bilateral lower extremity. 2+ dorsalis pedis pulse. Assessment/Plan: Dalila is a pleasant 64-year-old female with continued complaints of a left foot drop. Flexion and extension plain films do show abnormal motion as compared to the supine T2-weighted sagittal MRI obtained previously. This demonstrates gurpreet on when moving from a supine to standing. The risks, benefits, and alternatives of MIS TLIF were reviewed with the patien t. The risks included, but were not limited to, bleeding / hematoma / seroma, i nfection, scar, scar around the nerve root, spinal fluid leak, need for lumbar d rain, arachnoiditis, continued symptoms, weakness, numbness, nerve root injury, anesthetic complications, medical complications, failure of fusion, pseudoarthr osis, adjacent level degeneration, hardware failure, hardware malposition, need for further surgery. The expected postoperative course, as well as that followi ng a significant complication, was reviewed with the patient. She is to follow up with her sewing techniques demonstrator today. Dr. Brooke will need to le t us know what medications need to be stopped and on what schedule prior to surg dontae. Mrs. Hameed would like to delay any surgical treatment until 21 July due to a previously scheduled vacation. We discussed that delaying surgery may negative ly impact her overall outcomes following surgery. She understands this risk and has chosen to accept it. She is scheduled to see an elderly caregiver later this week to be fitted for an AFO. Plan: - Follow up with Dr. Hernandez regarding medication management - AFO - Schedule for L4-5 TLIF when she is ready. Yobany Riddle PA-C Neurosurgery [facility] Frank Abdi MD, MSc, FAANS Minimally Invasive & Complex Spine Surgery Director of Spine Surgery [facility] Clinical television news anchor & Orthopedics [facility] documented in this encounter Plan of Treatment Care Team Description Date Type Specialty Mayank Novoa DO [address] [facility] [address] [place] [address] [phone] 06/17/2019 Appointment Pain Medicine Vikas Ross MD [address] [facility] [address] [place] [address] [phone] 07/03/2019 Office Visit Cardiology documented as of this encounter Visit Diagnoses Diagnosis Spondylolisthesis of lumbar region documented in this encounter
--- OUTSIDE RECORDS SUMMARY | 2019-06-07 16:07 | XMS REPORT | Encounter Summary ---
Author Author [facility] Organization [facility] Address Unknown Phone Unavailable Care Team Providers Care Public Health Advisor Name Role Phone [place], Shannon PCP Encounter Details Care Team Description Date Type Department Frank Abdi MD [address] [place], [place] [id number] Spondylolisthesis of lumbar region (Prim marisol Dx) 09/21/2015 [facility] [address] [place], [place] [id number] Social History Date Tobacco Use Types Packs/Day [...] Signs Reading Time Taken Comments Vital Sign 110/60 09/21/2015 11:45 AM CDT Blood Pressure 72 09/21/2015 11:45 AM CDT Pulse - - Temperature - - Respiratory Rate - - Oxygen Saturation - - Inhaled Oxygen Concentration 79.4 kg (175 lb) 09/21/2015 11:45 AM CDT Weight 162.6 cm (5' 4") 09/21/2015 11:45 AM CDT Height 30.04 09/21/2015 11:45 AM CDT Body Mass Index documented in this encounter Progress Notes * Frank Abdi MD - 09/21/2015 10:55 AM CDT Neurologic Surgery Return Patient Note Patient ID: Dalila Hameed is a 65 y.o. female. Subjective: Patient presents 8 weeks status post L4-L5 TLIF. She is not complaining of any significant pain. Continues to work with PT. She is no longer taking any pain m edication. In fact, her ANGELA score is 0 today. Neck Disability Index: % OSWESTRY: Patient Score: 0% PHQ-9 Little interest or pleasure in doing things: 0 Feeling down, depressed, or hopeless: 0 Trouble falling or staying asleep, or sleeping too much: 1 Feeling tired or having little energy: 0 Poor appetite or overeatin Feeling bad about [...] in some way: 0 PHQ-9 Total Score: 1 If you checked off any problems, how [...] MUSCULOSKELETAL: (+) muscle aches or pain Objective: Visit Vitals BP 110/60 Pulse 72 Ht 1.626 m (5' 4") Wt 79.4 kg (175 lb) BMI 30.04 kg/m2 Physical Exam Constitutional: Incision is well healed with appropriate scar formation. Gait and station are normal. Ambulating without assistance 5/5 strength in bilateral upper and lower extremities Sensation intact to light touch all extremities. Assessment/Plan: Dalila is a pleasant 65 yo female 8 weeks status post L4-L5 TLIF. She will elgin nue to work with physical therapy as well as her home exercise program. We will see her back in approximately 3 months for routine follow-up. Plan: - 3 month follow up - Continue PT and HEP Yobany Riddle PA-C Neurosurgery [facility] Frank Abdi MD, MSc, FAANS Minimally Invasive & Complex Spine Surgery Director of Spine Surgery [facility] Clinical new media strategist & Orthopedics [facility] documented in this encounter Plan of Treatment Care Team Description Date Type Specialty Mayank Novoa, [address] [facility] [address] [place] [address] [phone] 06/17/2019 Appointment Pain Medicine Vikas Ross MD [address] [facility] [address] [place] [address] [phone] 07/03/2019 Office Visit Cardiology documented as of this encounter Visit Diagnoses Diagnosis Spondylolisthesis of lumbar region documented in this encounter
--- OUTSIDE RECORDS SUMMARY | 2019-06-07 16:07 | XMS REPORT | Encounter Summary ---
Author Author [facility] Organization [facility] Address Unknown Phone Unavailable Care Team Providers Care Telephone Directory Deliverer Name Role Phone Shannon Falk PCP Reason for Referral * Physical Therapy (Routine) Referred By Contact Referred To Contact Status Reason Specialty Diagnoses / Procedures Yobany Riddle PA-C [address] [facility] [address] [place] [address] [address] Closed Specialty Services Physical Therapy Diagnoses Required Radicular leg pain Encounter Details Care Team Description Date Type Department Yobany Riddle PA-C [address] [facility] [address] [place] [address] [phone] Radicular leg pain (Primary Dx) 08/03/2015 Orders Only [facility] Social History Date Tobacco Use Types Packs/Day [...] Date Type Specialty Mayank Novoa DO [address] [facility] [address] [place] [address] [phone] 06/17/2019 Appointment Pain Medicine Vikas Ross MD [address] [place] [address] [phone] 07/03/2019 Office Visit Cardiology Order Schedule Name Type Priority Associated Diag noses 1 Occurrences starting 08/03/2015 until 02/02/2016 Ambulatory referral to Outpatient Routine Radicul ar leg pain Physical Therapy Referral documented as of this encounter Visit Diagnoses Diagnosis Radicular leg pain documented in this encounter
--- OUTSIDE RECORDS SUMMARY | 2019-06-07 16:07 | XMS REPORT | Encounter Summary ---
Author Author [facility] Organization [facility] Address Unknown Phone Unavailable Care Team Providers Care Boilermaker Welder Name Role Phone Shannon Falk PCP Reason for Referral * Diagnostic Lab (Routine) Referred By Contact Referred To Contact Status Reason Specialty Diagnoses / Procedures Frank Abdi MD [address] [address] Closed Diagnoses Lumbar stenosis P rocedures Intraoperative Neurophysiologic Monitoring Reason for Visit * Auth/Cert (Routine) Referred By Contact Referred To Contact Status Reason Specialty Diagnoses / Procedures Yobany Riddle PA-C [address] [address] Diagnoses Radicular leg pain P rocedures Case request operating room: Left L4-L5 FUSION TRANSFORAMINAL LUMBAR INTERBODY SPINE HI ARTHDSIS POST/POSTEROLATRL/ POSTINTERBODY LUMBAR Encounter Details Care Team Description Date Type Department Frank Abdi MD [address] [id number] Lumbar stenosis 07/28/2015 [facility] Encounter [address] [place], [place] [phone] Social History Date Tobacco Use Types Packs/Day [...] mouth 2 (two) times a day. 05/13/2015 07/31/2015 HYDROcodone-acetaminophen Take 1-2 0 (NORCO) [...] as needed. documented as of this encounter Plan of Treatment Care Team Description Date Type Specialty Mayank Novoa DO [address] [address] [phone] 06/17/2019 Appointment Pain Medicine Vikas Ross MD [address] [place] [address] [phone] 07/03/2019 Office Visit Cardiology documented as of this encounter Procedures Comments Procedure Name Priority Date/Time Associated Diag nosis INTRAOPERATIVE Routine 07/28/2015 Lumbar stenosis NEUROPHYSIOLOGIC 12:43 PM CDT MONITORING documented in this encounter Results * Intraoperative Neurophysiologic Monitoring (07/28/2015 12:43 PM CDT) Narrative Performed At Kash Cabezas MD 07/28/2015 11:[address] [facility] - Intraoperative neuro physiologic monitoring report PROCEDURE DATE: 07/28/2015 PROCEDURE: L4-L5 transforaminal lumbar interbody fusion (TLIF). MONITORING START TIME: 07. MONITORING END TIME: 1145. REFERRING PHYSICIAN: Frank nkapp MD INTERPRETING PHYSICIAN: Kash willis MD CLINICAL HISTORY Dalila Hameed is a 64 y.o. female with lef t foot drop found to have imaging showing lumbar spine spondylosi s at L4-L5 with severe central canal stenosis and milt to mode rate bilateral foraminal stenosis. OPERATIVE COURSE Serial intra-operative somatosensory ev oked potentials (SSEPs) were made from the bilateral ulnar and tibial nerves. Reliable baseline recordings were obtained after positioning and prior to incision. There were no significant c hanges throughout the procedures. Transcranial electrical motor evoked po tentials (TceMEPs) were performed from the bilateral upper (ext ensor digitorum communis and abductor pollicis brevis) and lower (vastus lateralis, anterior tibialis, medial gastrocnemius , peroneus longus, and abductor hallucis) extremities. Relia ble baseline recordings were obtained after positioning and frantz or to incision. All TceMEPs throughout the procedure were u nchanged from the baseline. Free run EMG was performed recording at the bilateral vastus lateralis, peroneus longus, tibialis an terior, medial gastrocnemius, and abductor hallucis mu scles. No persistent abnormal spontaneous activity was recor ded during the study. EEG background throughout the procedure consisted of a symmetric, moderate amplitude mixture of theta and delta without reactivity to external stimuli. No epileptiform abnormalities or seizures were seen during the procedure. Burst suppression was not seen during the procedure. The waveform data and event log have be en stored for future reference. All baselines were obtained by 0846. I was physically present in the OR for monitoring from 0837 until 1145. INTERPRETATION During the procedure, no significant ch anges from the baselines were seen in the modalities monitored a nd no persistent abnormal spontaneous EMG activity was observed. . Pager: [phone]. Performing Organization Address City/State/Zipcode Ph one Number [facility] documented in this encounter Visit Diagnoses Diagnosis Lumbar stenosis Spinal stenosis of lumbar region documented in this encounter
--- OUTSIDE RECORDS SUMMARY | 2019-06-07 16:08 | XMS REPORT | Encounter Summary ---
Author Author [facility] Organization [facility] Address Unknown Phone Unavailable Care Team Providers Care Extrusion Machine Operator Name Role Phone Shannon Falk PCP Reason for Referral * Diagnostic Imaging (Routine) Referred By Contact Referred To Contact Status Reason Specialty Diagnoses / Procedures Yobany Riddle PA-C [address] [place] [address] Mpi Dexa [address] [facility] [address] [place] [address] Closed Radiology Diagnoses Radicular leg pain P rocedures DEXA Bone Density Hip Pelvis Spine Reason for Visit * Diagnostic Imaging (Routine) Referred By Contact Referred To Contact Status Reason Specialty Diagnoses / Procedures Yobany Riddle PA-C [address] [place] [address] Mpi Dexa [address] [facility] [address] [place] [address] Closed Radiology Diagnoses Radicular leg pain P rocedures DEXA Bone Density Hip Pelvis Spine Encounter Details Care Team Description Date Type Department Yobany Riddle PA-C [address] [place] [address] [phone] Radicular leg pain 05/27/2015 [facility] [address] [facility], [address] [place] [address] Social History Date Tobacco Use Types Packs/Day [...] [facility] [address] [place] [address] [phone] 06/17/2019 Appointment Pain Medicine Vikas Ross MD [facility] [facility] [address] [place] [address] [phone] 07/03/2019 Office Visit Cardiology documented as of this encounter Procedures Comments Procedure Name Priority Date/Time Associated Diag nosis DEXA BONE DENSITY HIP Routine 05/27/2015 Radicula r leg pain PELVIS SPINE 9:30 AM CDT documented in this encounter Results * DEXA Bone Density Hip Pelvis Spine (05/27/2015 9:30 AM CDT) Specimen Impressions Performed At IMPRESSION: [facility] Bone mineral density is compatible with osteopenia. Please also see the full computer gener ated report. READING SITE: [facility] Narrative Performed At Patient: HARI OBRIEN Phone#: Med Rec#: [id number] Sex#: F # [id number] Abdirizak#: [id number] Location: [facility] DEXA Procedure Requested: [id number] DEXA BON E DENSITY HIP PELVIS SPINE Reason for Exam: Radicular leg pain Exam Ordered: 05/27/2015 091 4 Exam Date/Time: 05/27/2015929 Check-in Date/Time: 05/27/2015914 DEXA BONE DENSITY HIP PELVIS SPINE DATE: May 27, 2015 09:30:43 AM INDICATION: 64-year-old postmenopausal female COMPARISON: None available. TECHNIQUE: Bone densitometry was perf ormed on a [employer] DXA scanner with bone mineral density and standard devia tion evaluation of the femoral neck and lumbar spine. FINDINGS: LUMBAR SPINE (L1-L4): The bone mineral density from L1-L4 is 1.001 gm/cm sq. This corresponds to a T-score of -1.6. Sclerosis in the lumbar spine, from deg enerative change, likely falsely elevates bone mineral density in this r egion. LEFT Femur: The bone mineral density of the femoral neck is 0.745 gm/cm sq. This corresponds to a T-score of -2.1. The bone mineral density of the total h ip is 0.849 gm/cm sq with a T-score of -1.3. RIGHT Femur: The bone mineral density of the femoral neck is 0.766 gm/cm sq. This corresponds to a T-score of -2.0. The bone mineral density of the total h ip is 0.839 gm/cm sq with a T-score of -1.3. Procedure Note Interface, Rad Results In - 05/27/2015 9:58 AM CDT Patient: HARI OBRIEN Phone#: [employer] Rec#: [id number] Sex#: F # [id number] Abdirizak#: [id number] Location: [facility] DEXA Procedure Requested: [id number] DEXA BONE DENSITY HIP PELVIS SPINE Reason for Exam: Radicular leg pain Exam Ordered: 05/27/2015913 Exam Date/Time: 05/27/2015929 Check-in Date/Time: 05/27/2015914 DEXA BONE DENSITY HIP PELVIS SPINE DATE: May 27, 2015 09:30:43 AM INDICATION: 64-year-old postmenopausal female COMPARISON: None available. TECHNIQUE: Bone densitometry was performed on a [employer] DXA scanner with bone mineral density and standard deviation evaluation of the femoral neck and lumbar spine. FINDINGS: LUMBAR SPINE (L1-L4): The bone mineral density from L1-L4 is 1.001 gm/cm sq. This corresponds to a T-score of -1.6. Sclerosis in the lumbar spine, from degenerative change, likely falsely elevates bone mineral density in this region. LEFT Femur: The bone mineral density of the femoral neck is 0.745 gm/cm sq. This corresponds to a T-score of -2.1. The bone mineral density of the total hip is 0.849 gm/cm sq with a T-score of -1.3. RIGHT Femur: The bone mineral density of the femoral neck is 0.766 gm/cm sq. This corresponds to a T-score of -2.0. The bone mineral density of the total hip is 0.839 gm/cm sq with a T-score of -1.3. IMPRESSION: Bone mineral density is compatible with osteopenia. Please also see the full computer generated report. READING SITE: [facility] Address City/State/Zipcode Ph one Number [place] documented in this encounter Visit Diagnoses Diagnosis Radicular leg pain documented in this encounter
--- OUTSIDE RECORDS SUMMARY | 2019-06-07 16:08 | XMS REPORT | Encounter Summary ---
Author Author [facility] Organization [facility] Address Unknown Phone Unavailable Care Team Providers Care Hydrodynamics Teacher Name Role Phone Shannon Falk PCP Encounter Details Care Team Description Date Type Department Frank Abdi MD [address] [facility] [address] [place] [address] [phone] Encounter for consultation 05/25/[address] [email or web address] Appointment Location Social History Date Tobacco [...] DO [address] [facility] [address] [place] [address] [phone] 06/17/2019 Appointment Pain Medicine Vikas Ross MD [address] [facility] [address] [place] [address] [phone] 07/03/2019 Office Visit Cardiology documented as of this encounter Procedures Comments Procedure Name Priority Date/Time Associated Diag nosis MRI OUTSIDE IMAGES FOR Routine 05/25/2015 Encount er for PACS SPINE 1:55 PM CDT consultation documented in this encounter Results * MRI Outside images for PACS Spine (05/25/2015 1:55 PM CDT) Specimen Performing Organization Address City/State/Zipcode Ph one Number [place] documented in this encounter Visit Diagnoses Diagnosis Encounter for consultation documented in this encounter
--- OUTSIDE RECORDS SUMMARY | 2019-06-07 16:08 | XMS REPORT | Encounter Summary ---
Author Author [facility] Organization [facility] Address Unknown Phone Unavailable Care Team Providers Care Data Support Analyst Name Role Phone Shannon Falk PCP Encounter Details Care Team Description Date Type Department Frank Abdi MD 43[address] [facility] [address] [place] [address] [phone] Encounter for consultation (Primary Dx) 05/25/2015 Transcribe [facility] Orders 44[address] [facility] [address] [place], [place] [id number] Social History Date Tobacco Use Types Packs/Day [...] Date Type Specialty Mayank Novoa DO [address] [facility] [address] [place] [address] [phone] 06/17/2019 Appointment Pain Medicine Vikas Ross MD [address] [facility] [address] [place] [address] [phone] 07/03/2019 Office Visit Cardiology documented as of this encounter Results * MRI Outside images for PACS Spine (05/25/2015 1:55 PM CDT) Specimen Performing Organization Address City/State/Zipcode Ph one Number [place] documented in this encounter Visit Diagnoses Diagnosis Encounter for consultation documented in this encounter
--- OUTSIDE RECORDS SUMMARY | 2019-06-07 16:08 | XMS REPORT | Encounter Summary ---
Author Author [facility] Organization [facility] Address Unknown Phone Unavailable Care Team Providers Care Ultrasound Supervisor Name Role Phone Shannon Falk PCP Reason for Referral * Diagnostic Imaging (Routine) Referred By Contact Referred To Contact Status Reason Specialty Diagnoses / Procedures Yobany Riddle PA-C [address] [facility] [address] [place] [address] Mpi Dexa [address] [facility] [place] [address] Closed Radiology Diagnoses Radicular leg pain P rocedures DEXA Bone Density Hip Pelvis Spine Encounter Details Care Team Description Date Type Department Frank Abdi MD [address] [place], [place] [id number] Radicular leg pain (Primary Dx) 05/25/[address] [facility] Neurosu rgery [address] [place], [place] [id number] Social History Date Tobacco Use Types Packs/Day Years Used Never Smoker Drinks/Week oz/Week Comments Alcohol Use Yes Sex Assigned at Date Recorded Female Industry Job Start Date Occupation Not on file Not on file Not on file Travel End Travel History Travel Start No recent travel history available. documented as of this encounter Last Filed Vital Signs Reading Time Taken Comments Vital Sign 116/62 05/25/2015 1:46 PM CDT Blood Pressure 69 05/25/2015 1:46 PM CDT Pulse - - Temperature - - Respiratory Rate - - Oxygen Saturation - - Inhaled Oxygen Concentration 82.7 kg (182 lb 6.4 oz) 05/25/2015 1:46 PM CDT Weight 162.6 cm (5' 4") 05/25/2015 1:46 PM CDT Height 31.31 05/25/2015 1:46 PM CDT Body Mass Index documented in this encounter Progress Notes * Frank Abdi MD - 05/25/2015 1:31 PM CDT Neurologic Surgery New Patient Note Patient ID: Dalila Obrien is a 64 y.o. female. Chief Complaint: Left leg pain with foot drop HPI: Patient presents with a 6 month history of low back pain and a 3 month history o f left leg pain with foot drop. She states the back pain began suddenly when twi sting to reach an object. In February the foot drop and leg pain presented withou t preceding injury. She states that the foot drop and leg pain is much more trou adam than her low back pain. The pain in the leg is described as an ache and ex tends from the knee to the ankle. She is able to walk 3-4 city blocks before she must stop due to fatigue in the legs. She complains that the left leg begins to feel heavy. She has been to PT for this complaint and has been on gabapentin. S he also had a previous JESSICA without relief. Mrs. Obrien has failed conservative paul atment for greater than 6 weeks including NSAIDs, activity modification and phys ical therapy. Previous MRI is available for review. ANGELA: 18 MRI of the lumbar spine reveals spondylosis at L4-L5 with severe central canal s tenosis. Mild to moderate bilateral foraminal stenosis is noted as well. Review of Systems Constitutional: (-) fever, (-) [...] SOB MUSCULOSKELETAL: (-) muscle aches or pain PMH: Past Medical History Diagnosis Date Hypertension Thyroid disease PSH: Past Surgical History Procedure Laterality Date Roator cuff reapir Broken collar bone Hysterectomy Vericose vein removal Allergies: Allergies Allergen Reactions Sulfa (Sulfonamide Antibiotics) Family History: History reviewed. No pertinent family history. Social History: History Social History Marital Status: Unknown Spouse Name: N/A Number of Children: N/A Years of Education: N/A Social History Main Topics Smoking status: Never Smoker Smokeless tobacco: Not on file Alcohol Use: Yes Drug Use: No Sexual Activity: Not on file Other Topics Concern None Social History Narrative None Medications: Outpatient Encounter Prescriptions as of 05/25/2015 Medication Sig Dispense Refill atorvastatin (LIPITOR) 40 MG tablet celecoxib (CELEBREX) 200 MG capsule citalopram (CELEXA) 20 MG tablet gabapentin (NEURONTIN) 600 MG tablet GAVILYTE-G 236-22.74-6.74 -5.86 gram solution HYDROcodone-acetaminophen (NORCO) 7.5-325 mg per tablet hydroxychloroquine (PLAQUENIL) 200 mg tablet leflunomide (ARAVA) 20 MG tablet levothyroxine (SYNTHROID, LEVOTHROID) 75 MCG tablet losartan (COZAAR) 100 MG tablet [DISCONTINUED] gabapentin (NEURONTIN) 300 MG capsule No facility-administered encounter medications on file as of 05/25/2015. Objective: BP 116/62 mmHg | Pulse 69 | Ht 1.626 m (5' 4") | Wt 82.736 kg (182 lb 6.4 oz) | BMI 31.29 kg/m2 Physical Exam Constitutional: Dalila Obrien is alert and oriented times three and pleasant at today's visit. CNIII-XII are examined and WNL Rapid alternating movements & [id number]-[id number] intact Kamara's negative Bicep Tricep Wrist Flex Wrist Ext Prototype Engineer Intinsics Right 5 5 5 5 5 5 Left 5 5 5 5 5 5 Bicep reflex + Sensation is intact all four extremities Hip Flex Hip Ext Knee Flex Knee Ext Dorsiflex Plantarflex EHL Right 5 5 5 5 5 5 5 Left 5 5 5- 5 3 5 3 Patellar & ankle reflexes + Assessment/Plan: Mrs. Obrien is a pleasant 64 yo female with a 3 month history of left foot drop an d leg pain. Her back has been present for about 6 months but is not of great con cern to her. She presents having had previous MRI which demonstrates severe cent ral canal stenosis with moderate bilateral neural foraminal stenosis. She has fa iled PT as well as JESSICA. I have ordered DEXA bone scan for preoperative planning purposes. She will also go for flexion and extension films to evaluate stability . She also will see Dr. Hernandez regarding what her rheumatologic medication guillermo n will be florian-operatively. I will see her back after these studies are complet e. She has a trip coming up in June and would like to delay surgery until after t hat date. I discussed that delaying surgery may have a negative impact on overal l outcome. She understands and we will discuss this again when we have more info rmation. Plan: - DEXA scan - Follow up with Dr. Hernandez - Lumbar flexion-extension films. - Follow up when studies complete Yobany Riddle PA-C Neurosurgery [facility] Frank Abdi MD, MSc, FAANS Minimally Invasive [facility] Complex Spine Surgery Director of Spine Surgery [facility] Clinical film painter & Orthopedics [facility] documented in this encounter Plan of Treatment Care Team Description Date Type Specialty Mayank Novoa DO [address] [facility] [address] [place] [address] [phone] 06/17/2019 Appointment Pain Medicine Vikas Ross MD [address] [facility] [address] [place] [address] [phone] 07/03/2019 Office Visit Cardiology documented as of [...] or edited the final report. READING SITE: [facility]. Narrative Performed At Patient: DALILA OBRIEN Sex#: F # [id number] Abdirizak#: Location: [facility] XRAY Procedure Requested: [id number] XR LUMBA R SPINE 2 OR 3 VIEWS Reason for Exam: Radicular leg pain Exam Ordered: 05/27/2015 093 5 Exam Date/Time: 05/27/2015941 Check-in Date/Time: 05/27/2015934 XR LUMBAR SPINE 2 OR 3 VIEWS [...] In - 05/27/2015 12:42 PM CDT Patient: DALILA OBRIEN Sex#: F # [id number] Abdirizak#: Location: [facility] XRAY Procedure Requested: [id number] XR LUMBAR SPINE 2 OR 3 VIEWS Reason for Exam: Radicular leg pain Exam Ordered: 05/27/201535 Exam Date/Time: 05/27/2015941 Check-in Date/Time: 05/27/2015934 XR LUMBAR SPINE 2 OR 3 VIEWS [...] or edited the final report. READING SITE: [facility] Performing Organization Address City/State/Zipcode Ph one Number [place] * DEXA Bone Density Hip Pelvis Spine (05/27/2015 9:30 AM CDT) Specimen Impressions Performed At IMPRESSION: [place] Bone mineral density is compatible with osteopenia. Please also see the full computer gener ated report. READING SITE: [facility] Narrative Performed At Patient: DALILA OBRIEN Phone#: [facility] Rec#: [id number] Sex#: F # [id number] Abdirizak#: [id number] Location: [facility] DEXA Procedure Requested: [id number] DEXA BON E DENSITY HIP PELVIS SPINE Reason for Exam: Radicular leg pain Exam Ordered: 05/27/2015 091 4 Exam Date/Time: 05/27/2015929 Check-in Date/Time: 05/27/2015914 DEXA BONE DENSITY HIP PELVIS SPINE DATE: May 27, 2015 09:30:43 AM INDICATION: 64-year-old postmenopausal female COMPARISON: None available. TECHNIQUE: Bone densitometry was perf ormed on a Scoutzie DXA scanner with bone mineral density and [...] In - 05/27/2015 9:58 AM CDT Patient: DALILA OBRIEN Phone#: Med Rec#: [id number] Sex#: F # [id number] Abdirizak#: [id number] Location: [facility] DEXA Procedure Requested: [id number] DEXA BONE DENSITY HIP PELVIS SPINE Reason for Exam: Radicular leg pain Exam Ordered: 05/27/2015913 Exam Date/Time: 05/27/2015929 Check-in Date/Time: 05/27/2015914 DEXA BONE DENSITY HIP PELVIS SPINE DATE: May 27, 2015 09:30:43 AM INDICATION: 64-year-old postmenopausal female COMPARISON: None available. TECHNIQUE: Bone densitometry was performed on a Scoutzie DXA scanner with bone mineral density and [...] the full computer generated report. READING SITE: [facility] Performing Organization Address City/State/Zipcode Ph one Number [facility] documented in this encounter Visit Diagnoses Diagnosis Radicular leg pain documented in this encounter
--- OUTSIDE RECORDS SUMMARY | 2019-06-07 16:08 | XMS REPORT | Encounter Summary ---
Author Author [facility] Organization [facility] Address Unknown Phone Unavailable Care Team Providers Care Corporate Legal Intern Name Role Phone PCP Unavailable Encounter Details Care Team Description Date Type Department Az Casanova MD [address] [facility] [address] [address] [phone] 05/13/2013 [facility] al Encounter [address] [place] [address] Social History Date Tobacco Use Types Packs/Day Years Used Never Assessed Sex Assigned at Date Recorded Female Industry Job Start Date Occupation Not on file Not on file Not on file Travel End Travel History Travel Start No recent travel history available. documented as of this encounter Plan of Treatment Care Team Description Date Type Specialty Mayank Novoa DO [address] [facility] [address] [place] [address] [phone] 06/17/2019 Appointment Pain Medicine Vikas Ross MD [address] [facility] [address] [place] [address] [phone] 07/03/2019 Office Visit Cardiology documented as of this encounter Procedures Comments Procedure Name Priority Date/Time Associated Diag nosis QUANTIFERON TB GOLD Routine 05/13/2013 2:22 PM CDT ACUTE HEPATITIS PANEL Routine 05/13/2013 2:22 PM CDT documented in this encounter Results * Quantiferon TB Gold (05/13/2013 2:22 PM CDT) QFT NegativeComment: M. Negative [facility] Interpretation tuberculosis infection is not [facility]ION[facility] likely. LABORATORIES Specimen Blood Performing Organization Address [facility] one Number [address] [address] LABORATORIES * Acute Hepatitis Panel (05/13/2013 2:22 PM CDT) Pathologist [facility] Hepatitis A Ab Non-reactive Non-reactive [facility] IgM [facility] Hepatitis B Non-reactive Non-reactive [place] [employer] [place] Ab IgM [facility] Hepatitis B Non-reactive Non-reactive [facility] Surface Ag [facility] Hepatitis C Ab Non-reactive Non-reactive [place] [facility] Specimen Blood Performing Organization Address [facility] one Number [address] [id number] LABORATORIES documented in this encounter Visit Diagnoses Not on filedocumented in this encounter
--- OUTSIDE RECORDS SUMMARY | 2019-06-07 16:08 | XMS REPORT | Encounter Summary ---
Author Author [facility] Organization [facility] Address Unknown Phone Unavailable Care Team Providers Care Hydrodynamicist Name Role Phone PCP Unavailable Encounter Details Care Team Description Date Type Department Az Casanova MD [address] [facility] [address] [place] [address] [phone] 10/07/2011 [facility] al Encounter [address] [place] [address] Social History Date Tobacco Use Types Packs/Day Years Used Never Assessed Sex Assigned at Date Recorded Female Industry Job Start Date Occupation Not on file Not on file Not on file Travel End Travel History Travel Start No recent travel history available. documented as of this encounter Plan of Treatment Care Team Description Date Type Specialty Mayank Novoa DO [address] [facility] [address] [place] [address] [phone] 06/17/2019 Appointment Pain Medicine Vikas Ross MD [address] [facility] [address] [place] [address] [phone] 07/03/2019 Office Visit Cardiology documented as of this encounter Procedures Comments Procedure Name Priority Date/Time Associated Diag nosis ANTI CYCLIC CITRULLINATED Routine 10/07/2011 PEPTIDE 9:00 AM CDT ABBE QUALITATIVE Routine 10/07/2011 9:00 AM CDT documented in this encounter Results * Anti Cyclic Citrullinated Peptide (10/07/2011 9:00 AM CDT) Anti Cyclic 14 0 - 30 UNITS SUNQUEST Citrullinated Peptide Specimen Blood Performing Organization Address [facility] one Number [facility] [id number] [place] [address] SUNQUEST * ABBE Qualitative (10/07/2011 9:00 AM CDT) ABBE Qualitative Negative Negative SUNQUEST Specimen Blood Performing Organization Address [facility] one Number [facility] [address] [place] [address] SUNQUEST documented in this encounter Visit Diagnoses Not on filedocumented in this encounter
--- OUTSIDE RECORDS SUMMARY | 2019-06-07 16:15 | XMS REPORT | CCD ---
Author Author Dalila Falk Organization Shannon Falk MD, [facility] Address [address] [place] [address] Phone Care Team Providers Care Vest Maker Name Role Phone PP Unavailable CCM Unavailable Summary Purpose Interface Exchange Insurance Providers Payer name Policy type / Coverage type Covered green party ID Effective Begin Date Effective End Date WPS Medicare Part B Medicare Part B [id number] Unknown [place] [employer] Insurance M edicare Part B [id number] Unkn own Family history Brother Diagnosis Age At Onset [...] Codes Description Effective Dates Marital status Unknown M elio Schaeffer 09/27/2017 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 Number of children Unknown 2 07/10/[address]: 643186721 Has never smoked or chewed tobacco 07/10/2014 Alcohol history Unknown occasionally drinks alcohol 07/10/2014 Allergies, Adverse Reactions, Alerts Substance Reaction Codes Entered Date Inactivated Date Status Remicade hives RxNorm: 648390 03/24/2017 No Inactive Date Active * NO KNOWN FOOD LALA RGIES Unknown 07/10/2014 No Inactive Date Active SULFA(SULFONAMIDE AN TIBIOTICS) Unknown 07/10/2014 No Inactive Date Active Past Medical History Illness Codes Condition Status Onset Date Resolved Date Atrophy of thyroid ( acquired) ICD-9: 244.8 ICD-10: E03.4 Active 02/23/2016 Unknown Essential (primary) hypertension ICD-9: 401.1 ICD-10: I10 Active 10/01/2018 Unknown Mixed hyperlipidemia ICD-9: 272.2 ICD-10: E78.2 Active 10/01/2018 Unknown Other specified diso rders of bone, other site ICD-9: 733.90 ICD-10: M89.8X8 Active 10/01/2018 Unknown Other abnormal and i nconclusive findings on diagnostic imaging of breast ICD-9: 793.89 ICD-10: R92.8 Active 02/01/2018 Unknown Essential (primary) hypertension ICD-9: 401.9 ICD-10: I10 Active 07/09/2014 Unknown Mixed hyperlipidemia ICD-9: 272.4 ICD-10: E78.2 Active 07/09/2014 Unknown Hypo-osmolality and hyponatremia ICD-9: 276.1 ICD-10: E87.1 Active 03/27/2018 Unknown Encounter for screen ing mammogram for malignant neoplasm of breast ICD-9: V76.10 ICD-10: Z12.31 Active 01/05/2018 Unknown Encounter for genera l adult medical examination without abnormal findings ICD-9: V70.0 ICD-10: Z00.00 Active 03/29/2015 Unknown Pain in thoracic spine ICD-9: 724.1 ICD-10: M54.6 Active 12/26/2017 Unknown 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 ICD-9: 714.0 ICD-10: M05.741 Active 03/24/2017 Unknown 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 ICD-9: 714.0 ICD-10: M05.742 Active 03/24/2017 Unknown Otalgia, left ear ICD-9: 388.70 ICD-10: H92.02 Active 10/17/2017 Unknown Pleurisy ICD-9: 511.0 ICD-10: R09.1 Active 08/08/2016 Unknown Dysuria ICD-9: 788.1 ICD-10: R30.0 Active 04/18/2016 Unknown Other pruritus ICD-9: 698.1 ICD-10: L29.8 Active 03/06/2016 Unknown Pain in left foot ICD-9: 729.5 ICD-10: M79.672 Active 05/23/2016 Unknown Pain in left toe(s) ICD- 9: 729.5 ICD-10: M79.675 Active 05/23/2016 Unknown Candidiasis of vulva and vagina ICD-9: 112.1 ICD-10: B37.3 Active 03/06/2016 Unknown Functional diarrhea ICD- 9: 564.5 ICD-10: K59.1 Active 02/23/2016 Unknown Pain in left hip ICD-9: 719.45 ICD-10: M25.552 Active 02/23/2016 Unknown Pain in right hip ICD-9: 719.45 ICD-10: M25.551 Active 02/23/2016 Unknown Major depressive dis order, single episode, unspecified ICD-9: 311 ICD-10: F32.9 Active 07/09/2014 Unknown Rash and other nonsp ecific skin eruption ICD-9: 782.1 ICD-10: R21 Active 05/25/2015 Unknown Foot drop, left foot ICD-9: 736.79 ICD-10: M21.372 Active 04/08/2015 Unknown Sacroiliitis, not el sewhere classified ICD-9: 720.2 ICD-10: M46.1 Active 04/08/2015 Unknown Family history of ma lignant neoplasm of digestive organs ICD-9: V16.0 ICD-10: Z80.0 Active 03/09/2015 Unknown Other intervertebral disc degeneration, lumbar region ICD-9: 722.52 ICD-10: M51.36 Active 03/09/2015 Unknown Sciatica, left side ICD- 9: 724.3 ICD-10: M54.32 Active 03/09/2015 Unknown Iliotibial band synd nallely, left leg ICD-9: 728.89 ICD-10: M76.32 Active 12/15/2014 Unknown Trochanteric bursiti s, left hip ICD-9: 726.5 ICD-10: M70.62 Active 12/15/2014 Unknown Sciatica Unknown Active 12/09/2014 Unknow n Carpal tunnel syndro me, unspecified upper limb ICD-9: 354.0 ICD-10: G56.00 Active 11/12/2014 Unknown 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 condition with depressive features ICD-9: 311 ICD-10: F06.31 Active 07/09/2014 Unknown Depression Unknown Active 07/10/2014 Unknow n Diabetes Unknown Active 07/10/2014 Unknow n Hyperlipidemia Unknown Active 07/10/2014 Unknow n Hypertension Unknown Active 07/10/2014 Unknow n DEPRESSIVE DISORDER NEC ICD-9: 311 Active 07/09/2014 Unknown Diarrhea ICD-9: 787.91 Active 07/09/2014 Unknow n ESSENTIAL HYPERTENSION ICD-9: 401.9 Active 07/09/2014 Unknown HYPERLIPIDEMIA ICD-9: 272.4 Active 07/09/2014 Unknown Problems Condition Codes Effectiv e Dates Condition Status Atrophy of thyroid ( acquired) ICD-9: 244.8 ICD-10: E03.4 02/23/2016 Active Essential (primary) hypertension ICD-9: 401.1 ICD-10: I10 10/01/2018 Active Mixed hyperlipidemia ICD-9: 272.2 ICD-10: E78.2 10/01/2018 Active Other specified diso rders of bone, other site ICD-9: 733.90 ICD-10: M89.8X8 10/01/2018 Active Other abnormal and i nconclusive findings on diagnostic imaging of breast ICD-9: 793.89 ICD-10: R92.8 02/01/2018 Active Essential (primary) hypertension ICD-9: 401.9 ICD-10: I10 07/09/2014 Active Mixed hyperlipidemia ICD-9: 272.4 ICD-10: E78.2 07/09/2014 Active Hypo-osmolality and hyponatremia ICD-9: 276.1 ICD-10: E87.1 03/27/2018 Active Encounter for screen ing mammogram for malignant neoplasm of breast ICD-9: V76.10 ICD-10: Z12.31 01/05/2018 Active Encounter for genera l adult medical examination without abnormal findings ICD-9: V70.0 ICD-10: Z00.00 03/29/2015 Active Pain in thoracic spine ICD-9: 724.1 ICD-10: M54.6 12/26/2017 Active 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 ICD-9: 714.0 ICD-10: M05.741 03/24/2017 Active 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 ICD-9: 714.0 ICD-10: M05.742 03/24/2017 Active Otalgia, left ear ICD-9: 388.70 ICD-10: H92.02 10/17/2017 Active Pleurisy ICD-9: 511.0 ICD-10: R09.1 08/08/2016 Active Dysuria ICD-9: 788.1 ICD-10: R30.0 04/18/2016 Active Other pruritus ICD-9: 698.1 ICD-10: L29.8 03/06/2016 Active Pain in left foot ICD-9: 729.5 ICD-10: M79.672 05/23/2016 Active Pain in left toe(s) ICD- 9: 729.5 ICD-10: M79.675 05/23/2016 Active Candidiasis of vulva and vagina ICD-9: 112.1 ICD-10: B37.3 03/06/2016 Active Functional diarrhea ICD- 9: 564.5 ICD-10: K59.1 02/23/2016 Active Pain in left hip ICD-9: 719.45 ICD-10: M25.552 02/23/2016 Active Pain in right hip ICD-9: 719.45 ICD-10: M25.551 02/23/2016 Active Major depressive dis order, single episode, unspecified ICD-9: 311 ICD-10: F32.9 07/09/2014 Active Rash and other nonsp ecific skin eruption ICD-9: 782.1 ICD-10: R21 05/25/2015 Active Foot drop, left foot ICD-9: 736.79 ICD-10: M21.372 04/08/2015 Active Sacroiliitis, not el sewhere classified ICD-9: 720.2 ICD-10: M46.1 04/08/2015 Active Family history of ma lignant neoplasm of digestive organs ICD-9: V16.0 ICD-10: Z80.0 03/09/2015 Active Other intervertebral disc degeneration, lumbar region ICD-9: 722.52 ICD-10: M51.36 03/09/2015 Active Sciatica, left side ICD- 9: 724.3 ICD-10: M54.32 03/09/2015 Active Iliotibial band synd nallely, left leg ICD-9: 728.89 ICD-10: M76.32 12/15/2014 Active Trochanteric bursiti s, left hip ICD-9: 726.5 ICD-10: M70.62 12/15/2014 Active Sciatica Unknown 12/09/2014 Active Carpal tunnel syndro me, unspecified upper limb ICD-9: 354.0 ICD-10: G56.00 [...] ICD-9: 272.4 07/09/2014 Active Medications Medication Codes Instruc tions Start Date Stop Date Sta tus Fill Instructions hydrocodone 7.5 mg-a cetaminophen 325 mg tablet RxNorm: 062865 1-2 Tablet(s) PO Q4H as needed 10/24/2018 11/07/2018 Active metoprolol succinate ER 25 mg tablet,extended release 24 hr RxNorm: 592439 25 MG PO DAILY 10/18/2018 No Stop Date Active Vitamin D2 50,000 un it capsule RxNorm: 5735397 1 Capsule(s) PO QW 10/03/2018 12/31/2018 Active Vitamin D2 50,000 un it capsule RxNorm: 1892694 1 Capsule(s) PO QW 10/03/2018 10/02/2018 Inactive hydrocodone 7.5 mg-a cetaminophen 325 mg tablet RxNorm: 304250 1-2 Tablet(s) PO Q4H as needed 10/01/2018 10/15/2018 Inactive Synthroid 75 mcg tablet RxNorm: 455086 TAKE 1 TABLET BY MOUTH EVERY DAY 07/27/2018 02/21/2019 Ac tive Generic For:*SYNTHROID 0.075MG TAB 08/2018 9:45:14 AM N O T I C E Last quantity doesn't match original quantity Lipitor 20 mg tablet RxNorm: 094509 1 Tablet(s) PO QPM 05/08/2018 05/02/2019 Active Benicar 40 mg tablet RxNorm: 191437 1 Tablet(s) PO daily 05/08/2018 05/02/2019 Active Celebrex 200 mg capsule RxNorm: 498160 1 Capsule(s) PO BID 05/03/2018 04/27/2019 Active citalopram 20 mg tablet RxNorm: 779654 Tablet(s) TAKE ONE (1) TABLET BY MOUTH D AILY 05/03/2018 04/27/2019 Ac tive hydrocodone 7.5 mg-a cetaminophen 325 mg tablet RxNorm: 618971 1-2 Tablet(s) PO Q4H as needed 05/01/2018 05/15/2018 Inactive cefdinir 300 mg capsule RxNorm: 199139 1 Capsule(s) PO BID 04/17/2018 04/23/2018 Inactive cefdinir 300 mg capsule RxNorm: 795161 1 Capsule(s) PO BID 04/17/2018 04/16/2018 Inactive clobetasol 0.05 % to pical cream RxNorm: 991833 1 dime size amount Ap plication TOP daily as needed vaginal irritation 03/27/2018 07/24/2018 Inactive metoprolol succinate ER 25 mg tablet,extended release 24 hr RxNorm: 798907 1 Tablet(s) PO daily 03/27/2018 10/17/2018 Inactive Synthroid 75 mcg tablet RxNorm: 783924 Tablet(s) TAKE 1 TABLET BY MOUTH DAILY 02/07/2018 07/26/2018 In active Generic For:*SYNTHROID 0.075MG TAB 11/14 9:16:33 AM N O T I C E Last quantity doesn't match original quantity hydrocodone 7.5 mg-a cetaminophen 325 mg tablet RxNorm: 825987 1-2 Tablet(s) PO Q4H as needed 10/12/2017 10/26/2017 Inactive Synthroid 75 mcg tablet RxNorm: 088083 Tablet(s) TAKE 1 TABLET BY MOUTH DAILY 08/09/2017 02/06/2018 In active Generic For:*SYNTHROID 0.075MG TAB 10/22 9:16:33 AM N O T I C E Last quantity doesn't match original quantity hydrocodone 7.5 mg-a cetaminophen 325 mg tablet RxNorm: 098890 1-2 Tablet(s) PO Q4H as needed 05/22/2017 06/20/2017 Inactive amlodipine 10 mg tablet RxNorm: 948473 1 Tablet(s) PO daily 1 Tablet(s) PO ashlie y 05/09/2017 09/26/2017 In active citalopram 20 mg tablet RxNorm: 990338 Tablet(s) TAKE ONE (1) TABLET BY MOUTH D AILY 05/09/2017 05/02/2018 Inactive losartan 100 mg tablet RxNorm: 334727 1 Tablet(s) PO daily TAKE 1 TABLET BY MO [facility] DAILY 05/09/2017 01/01/2018 Inactive gabapentin 300 mg ca psule RxNorm: 187895 1 Capsule(s) PO daily 03/24/2017 No Stop Date Active Celebrex 200 mg capsule RxNorm: 491101 1 Capsule(s) PO BID 1 Capsule(s) PO ashlie y 03/24/2017 03/23/2017 In active Celebrex 200 mg capsule RxNorm: 723613 1 Capsule(s) PO BID 03/24/2017 03/18/2018 Inactive amlodipine 10 mg tablet RxNorm: 944229 1 Tablet(s) PO daily 1 Tablet(s) PO ashlie y 03/24/2017 05/08/2017 In active Lipitor 40 mg tablet RxNorm: 102883 Tablet(s) TAKE ONE TABLET BY MOUTH AT BE [facility] 02/14/2017 09/26/2017 Inactive hydrocodone 7.5 mg-a cetaminophen 325 mg tablet RxNorm: 004019 1-2 Tablet(s) PO Q4H as needed 01/16/2017 02/14/2017 Inactive scopolamine 1.5 mg t ransdermal patch (1 mg over 3 days) RxNorm: 826543 1 Patch TD Q72H 11/25/2016 12/04/2016 Inactive scopolamine 1.5 mg t ransdermal patch (1 mg over 3 days) RxNorm: 285597 1 Patch TD Q72H 11/25/2016 11/24/2016 Inactive losartan 100 mg tablet RxNorm: 926261 1 Tablet(s) PO daily TAKE 1 TABLET BY [facility] DAILY 11/14/2016 05/08/2017 Inactive Generic For:COZAAR 100MG TA B 05/17/2016 8:31:51 AM Synthroid 75 mcg tablet RxNorm: 700359 TAKE 1 TABLET BY MOUTH DAILY 11/14/2016 06/11/2017 Inactive Generic For:*SYNTHROID 0.075MG TAB 10/22 9:16:33 AM N O T I C E Last quantity doesn't match original quantity citalopram 20 mg tablet RxNorm: 971663 TAKE ONE (1) TABLET BY MOUTH DAILY 11/14/2016 05/08/2017 In active Generic For:CELEXA 20MG TAB 11/14/2016 8:30:49 AM N O T I C E Last quantity doesn't match original quantity prednisone 10 mg tab lets in a dose pack RxNorm: 673468 1 Tablet(s) PO UD 09/30/2016 10/05/2016 In active 6-5-4-3-2-1 hydrocodone 7.5 mg-a cetaminophen 325 mg tablet RxNorm: 965072 1-2 Tablet(s) PO Q4H as needed 09/20/2016 01/15/2017 Inactive amlodipine 5 mg tablet RxNorm: 972032 TAKE ONE TABLET BY MOUTH EVERY DAY 08/15/2016 03/23/2017 In active Generic For:NORVASC 5 MG TABLET 017 3:56:26 PM N O T I C E Last quantity doesn't match original quantity Kenalog 40 mg/mL [place] pension for injection RxNorm: 4347551 1 Milliliter(s) Inj 08/08/2016 08/08/2016 In active prednisone 10 mg tab lets in a dose pack RxNorm: 967272 1 Tablet(s) PO UD 08/08/2016 08/07/2016 In active prednisone 10 mg tab lets in a dose pack RxNorm: 236513 1 Tablet(s) PO UD 08/08/2016 08/13/2016 In active 6-5-4-3-2-1 Diflucan 150 mg tablet RxNorm: 934418 1 Tablet(s) PO daily 06/27/2016 07/10/2016 Inactive Synthroid 75 mcg tablet RxNorm: 511028 TAKE 1 TABLET BY MOUTH DAILY 06/16/2016 11/13/2016 Inactive Generic For:*SYNTHROID 0.075MG TAB pt wo uld like a 90 day supply N O T I C E Last quantity doesn't match original quantity hydrocodone 7.5 mg-a cetaminophen 325 mg tablet RxNorm: 287005 1-2 Tablet(s) PO Q4H as needed 06/06/2016 09/19/2016 Inactive citalopram 20 mg tablet RxNorm: 440485 TAKE ONE (1) TABLET BY MOUTH DAILY 05/18/2016 11/13/2016 In active Generic For:CELEXA 20MG TAB 05/17/2016 8:32:02 AM Celebrex 200 mg capsule RxNorm: 829898 1 Capsule(s) PO daily 05/17/2016 03/23/2017 Inactive losartan 100 mg tablet RxNorm: 731219 TAKE 1 TABLET BY MOUTH DAILY 05/17/2016 11/12/2016 Inactive Generic For:COZAAR 100MG TAB 05/17/2016 8:31:51 AM amlodipine 5 mg tablet RxNorm: 746040 1 Tablet(s) PO daily 05/10/2016 08/14/2016 Inactive Cipro 500 mg tablet RxNorm: 719070 1 Tablet(s) PO BID 05/04/2016 05/03/2016 Inactive Cipro 500 mg tablet RxNorm: 334973 1 Tablet(s) PO BID 05/04/2016 05/13/2016 Inactive Diflucan 150 mg tablet RxNorm: 083621 1 Tablet(s) PO daily 04/18/2016 05/01/2016 Inactive Monistat Soothing Ca re 1.2 % topical gel RxNorm: 2647279 1 Application TOP BI D 03/07/2016 01/01/2018 In active Diflucan 150 mg tablet RxNorm: 710947 1 Tablet(s) PO daily 03/07/2016 03/13/2016 Inactive Lipitor 40 mg tablet RxNorm: 003894 Tablet(s) TAKE ONE TABLET BY MOUTH AT BE [facility] 02/23/2016 02/13/2017 Inactive citalopram 20 mg tablet RxNorm: 985676 TAKE ONE (1) TABLET BY MOUTH DAILY 02/18/2016 05/17/2016 In active Generic For:CELEXA 20MG TAB refill reque st losartan 100 mg tablet RxNorm: 148217 Tablet(s) 1 Tablet, 1 time per Day 02/09/2016 05/16/2016 In active INSURANCE WILL NOT COVER ADELA ANDREWS UNTIL OTHER FORMULARIES HAVE BEEN TRIED AND FAILED hydrocodone 7.5 mg-a cetaminophen 325 mg tablet RxNorm: 233483 1-2 Tablet(s) PO Q4H as needed 02/03/2016 06/05/2016 Inactive Synthroid 75 mcg tablet RxNorm: 464003 Tablet(s) TAKE 1 TABLET BY MOUTH DAILY 01/19/2016 06/15/2016 In active Generic For:*SYNTHROID 0.075MG TAB 0 04/2014 10:00:02 AM N O T I C E PRESCRIPTION PREVIOUSLY AUTHORIZED BY DOCTOR:SWATI BEY prednisone 10 mg tab lets in a dose pack RxNorm: 505600 1 Tablet(s) PO UD 01/07/2016 02/22/2016 In active 6-5-4-3-2-1 amlodipine 10 mg tablet RxNorm: 109654 1 Tablet(s) PO daily 12/07/2015 11/30/2016 Inactive citalopram 20 mg tablet RxNorm: 637226 TAKE ONE (1) TABLET BY MOUTH DAILY 11/17/2015 02/14/2016 In active Generic For:CELEXA 20MG TAB refill reque st hydrocodone 7.5 mg-a cetaminophen 325 mg tablet RxNorm: 633417 1-2 Tablet(s) PO Q4H as needed 10/08/2015 02/02/2016 Inactive losartan 100 mg tablet RxNorm: 664718 Tablet(s) 1 Tablet, 1 time per Day 2015 02/07/2016 In active INSURANCE WILL NOT COVER ADELA ANDREWS UNTIL OTHER FORMULARIES HAVE BEEN TRIED AND FAILED citalopram 20 mg tablet RxNorm: 895851 TAKE ONE (1) TABLET BY MOUTH DAILY 08/10/2015 11/07/2015 In active Generic For:CELEXA 20MG TAB 08/10/2015 8:59:58 AM Synthroid 75 mcg tablet RxNorm: 513680 Tablet(s) TAKE 1 TABLET BY MOUTH DAILY 05/26/2015 12/21/2015 In active Generic For:*SYNTHROID 0.075MG TAB 0 04/2014 10:00:02 AM N O T I C E PRESCRIPTION PREVIOUSLY AUTHORIZED BY DOCTOR:SWATI BEY prednisone 20 mg tablet RxNorm: 784780 2 Tablet(s) PO daily 05/26/2015 05/30/2015 Inactive Lipitor 40 mg tablet RxNorm: 722735 TAKE ONE TABLET BY MOUTH AT BEDTIME 05/14/2015 02/07/2016 In active Generic For:LIPITOR 40MG TAB 05/13/2015 8:26:33 AM N O T I C E PRESCRIPTION PREVIOUSLY AUTHORIZED BY DOCTOR:SWATI BEY hydrocodone 7.5 mg-a cetaminophen 325 mg tablet RxNorm: 009181 1-2 Tablet(s) PO Q4H as needed 05/11/2015 10/07/2015 Inactive Celebrex 200 mg capsule RxNorm: 384547 1 Capsule(s) PO daily 05/07/2015 04/30/2016 Inactive citalopram 20 mg tablet RxNorm: 515174 TAKE ONE (1) TABLET BY MOUTH DAILY 04/27/2015 07/25/2015 In active Generic For:CELEXA 20MG TAB 04/26/2015 7:30:08 PM gabapentin 300 mg ca psule RxNorm: 989463 1 Capsule(s) PO QID 04/09/2015 04/02/2016 Inactive citalopram 20 mg tablet RxNorm: 632783 TAKE ONE (1) TABLET BY MOUTH DAILY 01/26/2015 04/25/2015 In active Generic For:CELEXA 20MG TAB 01/26/2015 8:40:11 AM losartan 100 mg tablet RxNorm: 929266 1 Tablet, 1 time per Day 01/26/2015 03/29/2015 Inactive INSURANCE WILL NOT COVER ADELA ANDREWS UNTIL OTHER FORMULARIES HAVE BEEN TRIED AND FAILED hydrocodone 7.5 mg-a cetaminophen 325 mg tablet RxNorm: 447579 1-2 Tablet(s) PO Q4H as needed 01/23/2015 05/10/2015 Inactive Neurontin 100 mg cap almaz RxNorm: 966969 1 Capsule(s) PO TID 01/14/2015 03/09/2015 Inactive Neurontin 100 mg cap almaz RxNorm: 004695 1 Capsule(s) PO TID 01/14/2015 01/13/2015 Inactive Keflex 500 mg capsule RxNorm: 731696 1 Capsule(s) PO TID 01/06/2015 01/05/2015 Inactive Keflex 500 mg capsule RxNorm: 447275 1 Capsule(s) PO TID 01/06/2015 01/12/2015 Inactive hydrocodone 7.5 mg-a cetaminophen 325 mg tablet RxNorm: 147277 1-2 Tablet(s) PO Q4H as needed 12/29/2014 01/22/2015 Inactive Duexis 800 mg-26.6 m g tablet RxNorm: 9252759 1 Tablet(s) PO TID a s needed 12/19/2014 03/29/2015 In active Duexis 800 mg-26.6 m g tablet RxNorm: 6449115 1 Tablet(s) PO TID a s needed 12/19/2014 12/18/2014 In active Kenalog 40 mg/mL [place] pension for injection RxNorm: 8328876 1 Milliliter(s) Inj 12/09/2014 12/09/2014 In active prednisone 10 mg tab lets in a dose pack RxNorm: 691396 1 Tablet(s) PO UD 12/09/2014 12/14/2014 In active 6-5-4-3-2-1 amlodipine 10 mg tablet RxNorm: 520117 1 Tablet(s) PO daily 11/13/2014 11/07/2015 Inactive citalopram 20 mg tablet RxNorm: 188706 TAKE ONE (1) TABLET BY MOUTH DAILY 10/23/2014 01/20/2015 In active Generic For:CELEXA 20MG TAB 10/23/2014 4:32:02 PM N O T I C E PRESCRIPTION PREVIOUSLY AUTHORIZED BY DOCTOR:SWATI BEY hydrocodone 7.5 mg-a cetaminophen 325 mg tablet RxNorm: 321418 1-2 Tablet(s) PO Q4H as needed 10/22/2014 12/28/2014 Inactive Synthroid 75 mcg tablet RxNorm: 466767 TAKE 1 TABLET BY MOUTH DAILY 09/22/2014 04/19/2015 Inactive Generic For:*SYNTHROID 0.075MG TAB 04/2014 10:00:02 AM N O T I C E PRESCRIPTION PREVIOUSLY AUTHORIZED BY DOCTOR:SWATI BEY amlodipine 5 mg tablet RxNorm: 734572 1 Tablet(s) PO daily 08/25/2014 11/12/2014 Inactive Synthroid 75 mcg tablet RxNorm: 256644 1 Tablet(s) PO daily ecept a 1/2 tab on Monday07/11/2014 09/21/2014 Inactive Flonase Allergy Reli ef 50 mcg/actuation nasal spray,suspension RxNorm: 1 [place] NASAL BID 07/10/2014 12/06/2014 Inactive methotrexate sodium 2.5 mg tablet RxNorm: 144005 3 Tablet(s) PO weekly No Start Date 04/08/2015 Inactive Aldactone 25 mg tablet RxNorm: 053294 1 Tablet(s) PO daily No Start Date 03/26/2018 Inactive gabapentin 300 mg ca psule RxNorm: 931426 1 Capsule(s) PO TID No Start Date 04/08/2015 Inactive Plaquenil 200 mg tablet RxNorm: 850067 1 Tablet(s) PO BID No Start Date 05/22/2016 Inactive losartan 100 mg tablet RxNorm: 648214 1 Tablet(s) PO daily No Start Date 01/25/2015 Inactive Benicar 20 mg tablet RxNorm: 473225 1 Tablet(s) PO daily No Start Date 05/07/2018 Inactive Remicade intravenous RxNorm: 903186 intravenous No Start Date 03/23/2017 Inactive amlodipine 5 mg tablet RxNorm: 451029 1 Tablet(s) PO daily No Start Date 08/24/2014 Inactive Celebrex 200 mg capsule RxNorm: 395163 1 Capsule(s) PO daily No Start Date 10/16/2017 Inactive citalopram 20 mg tablet RxNorm: 270836 1 Tablet(s) PO daily No Start Date 10/22/2014 Inactive Synthroid 88 mcg tablet RxNorm: 783089 1 Tablet(s) PO daily No Start Date 07/09/2014 Inactive Arava 20 mg tablet RxNorm: 376400 1 Tablet(s) PO daily No Start Date 01/01/2018 Inactive Lipitor 40 mg tablet RxNorm: 315866 1 Tablet(s) PO daily No Start Date 05/13/2015 Inactive chlorthalidone 25 mg tablet RxNorm: 913175 1 Tablet(s) PO daily No Start Date 03/26/2018 Inactive Synthroid 75 mcg tablet RxNorm: 721840 1 Tablet(s) PO daily No Start Date 07/10/2014 Inactive hydrocodone 7.5 mg-a cetaminophen 325 mg tablet RxNorm: 648839 Tablet(s) PO as neede d No Start Date 10/21/2014 Inactive Medication Administered Medication Codes Instruc tions Start Date Status Kenalog 40 mg/mL suspension for injection RxNorm: 5241248 1Milliliter 08/08/2016 N o longer Active Kenalog 40 mg/mL suspension for injection RxNorm: 7935795 1Milliliter 12/09/2014 N o longer Active Immunizations Vaccine Codes Date Status SHINGARIX CVX: 121 08/02 completed SHINGARIX CVX: 121 04/05 completed Assessments Condition Codes Effectiv e Dates Atrophy of thyroid (acquired) ICD-10 : E03.4 ICD-9: 244.8 10/01/2018 Essential (primary) hypertension ICD -10: I10 ICD-9: 401.1 10/01/2018 Other specified disorders of bone, other site ICD-10: M89.8X8 ICD-9: 733.90 10/01/2018 Mixed hyperlipidemia ICD-10: E78.2 ICD-9: 272.2 10/01/2018 Other abnormal and inconclusive findings on diagnostic imaging of breast ICD-10: R92.8 ICD-9: 793.89 08/03/2018 Essential (primary) hypertension ICD -10: I10 ICD-9: 401.9 06/12/2018 Mixed hyperlipidemia ICD-10: E78.2 ICD-9: 272.4 05/08/2018 Hypo-osmolality and hyponatremia ICD -10: E87.1 ICD-9: 276.1 03/27/2018 Encounter for screening mammogram for ma lignant neoplasm of breast ICD-10: Z12.31 ICD-9: V76.10 01/05/2018 Encounter for general adult medical exam ination without abnormal findings ICD-10: Z00.00 ICD-9: V70.0 01/02/2018 Rheumatoid arthritis with rheumatoid fac tor of left 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 organ or systems involvement ICD-10: M05.742 ICD-9: 714.0 12/26/2017 Rheumatoid arthritis with rheumatoid fac 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 ICD-10: M05.741 ICD-9: 714.0 12/26/2017 Pain in thoracic spine ICD-10: M54.6 ICD-9: 724.1 12/26/2017 Otalgia, left ear ICD-10: H92.02 ICD-9: 388.70 10/17/2017 Pleurisy ICD-10: R09.1 ICD-9: 511.0 08/30/2016 Other pruritus ICD-10: L29.8 ICD-9: 698.1 06/27/2016 Dysuria ICD-10: R30.0 ICD-9: 788.1 06/27/2016 Pain in left foot ICD-10: M79.672 ICD-9: 729.5 05/23/2016 Pain in left toe(s) ICD-10: M79.675 ICD-9: 729.5 05/23/2016 Candidiasis of vulva and vagina ICD- 10: B37.3 ICD-9: 112.1 04/18/2016 Pain in left hip ICD-10: M25.552 ICD-9: 719.45 02/23/2016 Pain in right hip ICD-10: M25.551 ICD-9: 719.45 02/23/2016 Functional diarrhea ICD-10: K59.1 ICD-9: 564.5 02/23/2016 Major depressive disorder, single episode, unspecified ICD-10: F32.9 ICD-9: 311 09/15/2015 Rash and other nonspecific skin eruption ICD-10: R21 ICD-9: 782.1 05/26/2015 Foot drop, left foot ICD-10: M21.372 ICD-9: 736.79 04/09/2015 Sacroiliitis, not elsewhere classified ICD-10: M46.1 ICD-9: 720.2 04/09/2015 Sciatica, left side ICD-10: M54.32 ICD-9: 724.3 03/10/2015 Other intervertebral disc degeneration, lumbar region ICD-10: M51.36 ICD-9: 722.52 03/10/2015 Family history of malignant neoplasm of digestive orga ns ICD- 10: Z80.0 ICD-9: V16.0 03/10/2015 Iliotibial band syndrome, left leg I CD-10: M76.32 ICD-9: 728.89 12/16/2014 Trochanteric bursitis, left hip ICD- 10: M70.62 ICD-9: 726.5 12/16/2014 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 condition with depressive features ICD-10: F06.31 ICD-9: 311 11/13/2014 Carpal tunnel syndrome, unspecified upper limb ICD-10: G56.00 ICD-9: 354.0 11/13/2014 ESSENTIAL HYPERTENSION ICD-9: 401.9 07/10/2014 DEPRESSIVE DISORDER NEC ICD-9: 311 07/10/2014 Diarrhea ICD-9: 787.91 0 07/10/2014 HYPERLIPIDEMIA ICD-9: 272.4 07/10/2014 Reason For Visit Reason For Visit Effective Dates Notes medication follow up 10/01/2018 medication follow up 06/12/2018 medication follow up 05/08/2018 Hospital Follow Up 03/27/2018 Annual Medicare Wellness Exam 01/02/2018 knee pain 12/26/2017 earache 10/17/2017 hypertension 09/27/2017 pleurisy 03/24/2017 pleurisy 08/30/2016 pleurisy 08/08/2016 urinary urgency 06/27/2016 foot pain 05/23/2016 lef t great toe vaginal discharge 04/18/2016 pelvic pain 03/07/2016 hip pain 02/23/2016 hip pain 09/15/2015 rash 05/26/2015 sciatica 04/09/2015 Annual Medicare Wellness Exam 03/30/2015 sciatica 03/10/2015 sciatica 12/16/2014 sciatica 12/09/2014 blood pressure followup 11/13/2014 cough 07/10/2014 Results Observation Observation Code Item Item Code Result Date Comp Metabolic Cev403 NA 134 mEq/L 10/02/2018 Comp Metabolic Jkt462 K 4.4 mEq/L 10/02/2018 Comp Metabolic Hza803 CL 97 mEq/L 10/02/2018 Comp Metabolic Xuj203 CO2 30.0 mEq/L 10/02/2018 Comp Metabolic Aej894 AN ION GAP 11 10/02/2018 Comp Metabolic Chv061 GL UCOSE 97 mg/dL 10/02/2018 Comp Metabolic Eli041 Cr eat 1.0 mg/dL 10/02/2018 Comp Metabolic Ted895 eG FR 60 ml/min/1.73m2 10/02 Comp Metabolic Mwi385 BUN 15 mg/dL 10/02/2018 Comp Metabolic Zai896 B/ C Ratio 15.3 Ratio 10/02/2018 Comp Metabolic Hrz597 CA LCIUM 9.8 mg/dL 10/02/2018 Comp Metabolic Mim147 AL K PHOS 91 U/L 10/02/2018 Comp Metabolic Pyg576 T(SGOT) 14 U/L 10/02/2018 Comp Metabolic Amt693 AL T(SGPT) 11 U/L 10/02/2018 Comp Metabolic Jwp892 BI LI T 0.5 mg/dL 10/02/2018 Comp Metabolic Cbu840 AL BUMIN 4.3 g/dL 10/02/2018 Comp Metabolic Uel566 TP RO 6.8 g/dL 10/02/2018 Comp Metabolic Nue368 GL OB 2.5 g/dL 10/02/2018 Comp Metabolic Fah664 A/ G Ratio 1.7 Ratio 10/02/2018 Comp Metabolic Pvi282 Os mo 269 mOsmo 10/02/2018 Vitamin D 25 Oh Bio8662 VITAMIN D, 25 HYDROXY 23.30 ng/mL 10/02/2018 Free T4 Nmo825 FREE T4 1.08 ng/dL 10/02/2018 Lipid Ord30 CHOL 394 mg/dL 10/02/2018 Lipid Ord30 HDL 60.0 mg/dl 10/02/2018 Lipid Ord30 TRIG 253 mg/dL 10/02/2018 Lipid Ord30 LDL 283 mg/dL 10/02/2018 Lipid Ord30 C/HDL 6.6 Ratio 10/02/2018 Tsh Ord6 TSH (3rd IS) 2.00 uIU/mL 10/02/2018 Free T4 Mof450 FREE T4 0.86 ng/dL 05/07/2018 Comp Metabolic Feq807 NA 138 mEq/L 05/07/2018 Comp Metabolic Qop819 K 4.2 mEq/L 05/07/2018 Comp Metabolic Drh386 CL 104 mEq/L 05/07/2018 Comp Metabolic Juw034 CO2 28.0 mEq/L 05/07/2018 Comp Metabolic Dyt207 AN ION GAP 10 05/07/2018 Comp Metabolic Vlo068 GL UCOSE 108 mg/dL 05/07/2018 Comp Metabolic Wcw200 Cr eat 0.9 mg/dL 05/07/2018 Comp Metabolic Bon230 eG FR 71 ml/min/1.73m2 05/07 Comp Metabolic Mwk158 BUN 15 mg/dL 05/07/2018 Comp Metabolic Bhz756 B/ C Ratio 17.6 Ratio 05/07/2018 Comp Metabolic Aqa865 CA LCIUM 9.5 mg/dL 05/07/2018 Comp Metabolic Xcj320 AL K PHOS 100 U/L 05/07/2018 Comp Metabolic Rsr335 T(SGOT) 17 U/L 05/07/2018 Comp Metabolic Kbj973 AL T(SGPT) 11 U/L 05/07/2018 Comp Metabolic Axs637 BI LI T 0.4 mg/dL 05/07/2018 Comp Metabolic Lto186 AL BUMIN 3.9 g/dL 05/07/2018 Comp Metabolic Oij377 TP RO 6.3 g/dL 05/07/2018 Comp Metabolic Qbq989 GL OB 2.4 g/dL 05/07/2018 Comp Metabolic Eqb453 A/ G Ratio 1.6 Ratio 05/07/2018 Comp Metabolic Boz423 Os mo 277 mOsmo 05/07/2018 Cbc With Differential Ord2 WBC 6.40 K/ul 05/07/2018 Cbc With Differential Ord2 RBC 3.98 M/ul 05/07/2018 Cbc With Differential Ord2 HGB 11.5 g/dl 05/07/2018 Cbc With Differential Ord2 Neut% 55.8 % 05/07/2018 Cbc With Differential Ord2 HCT 35.7 % 05/07/2018 Cbc With Differential Ord2 MCV 89.7 fl 05/07/2018 Cbc With Differential Ord2 Lymph% 31.6 % 05/07/2018 Cbc With Differential Ord2 [place]% 9.7 % 05/07/2018 Cbc With Differential Ord2 MCH 28.9 pg 05/07/2018 Cbc With Differential Ord2 Eos% 2.3 % 05/07/2018 Cbc With Differential Ord2 MCHC 32.2 pg 05/07/2018 Cbc With Differential Ord2 Baso% 0.6 % 05/07/2018 Cbc With Differential Ord2 PLT 253 K/ul 05/07/2018 Cbc With Differential Ord2 Neut ABS# 3.57 K/ul 05/07/2018 Cbc With Differential Ord2 RDW 13.6 % 05/07/2018 Cbc With Differential Ord2 Lymph ABS# 2.02 K/ul 05/07/2018 Cbc With Differential Ord2 [place] ABS# 0.6 K/ul 05/07/2018 Cbc With Differential Ord2 Eos ABS# 0.2 K/ul 05/07/2018 Cbc With Differential Ord2 Baso ABS# 0.0 K/ul 05/07/2018 Tsh Ord6 TSH (3rd IS) 0.78 uIU/mL 05/07/2018 Lipid Ord30 CHOL 306 mg/dL 05/07/2018 Lipid Ord30 HDL 51.0 mg/dl 05/07/2018 Lipid Ord30 TRIG 297 mg/dL 05/07/2018 Lipid Ord30 LDL 196 mg/dL 05/07/2018 Lipid Ord30 C/HDL 6.0 Ratio 05/07/2018 Metabolic Ord15 NA 137 mEq/L 03/27/2018 Metabolic Ord15 K 4.2 mEq/L 03/27/2018 Metabolic Ord15 CL 101 mEq/L 03/27/2018 Metabolic Ord15 CO2 31.0 mEq/L 03/27/2018 Metabolic Ord15 GLUCOSE 93 mg/dL 03/27/2018 Metabolic Ord15 BUN 18 mg/dL 03/27/2018 Metabolic Ord15 Creat 0.8 mg/dL 03/27/2018 Metabolic Ord15 B/C Ratio 22.0 Ratio 03/27/2018 Metabolic Ord15 eGFR 74 ml/min/1.73m2 03/27/2018 Metabolic Ord15 Osmo 275 mOsmo 03/27/2018 Metabolic Ord15 ANION GAP 9 03/27/2018 Metabolic Ord15 CALCIUM 9.5 mg/dL 03/27/2018 Tsh Ord6 TSH (3rd IS) 0.68 uIU/mL 12/26/2017 Sed Rate Ord21 ESR 30 mm/hr 12/26/2017 Cbc With Differential Ord2 WBC 7.80 K/ul 12/26/2017 Cbc With Differential Ord2 RBC 4.05 M/ul 12/26/2017 Cbc With Differential Ord2 HGB 12.6 g/dl 12/26/2017 Cbc With Differential Ord2 Neut% 69.0 % 12/26/2017 Cbc With Differential Ord2 HCT 37.1 % 12/26/2017 Cbc With Differential Ord2 Lymph% 19.6 % 12/26/2017 Cbc With Differential Ord2 MCV 91.6 fl 12/26/2017 Cbc With Differential Ord2 [place]% 9.2 % 12/26/2017 Cbc With Differential Ord2 MCH 31.1 pg 12/26/2017 Cbc With Differential Ord2 Eos% 1.7 % 12/26/2017 Cbc With Differential Ord2 MCHC 34.0 pg 12/26/2017 Cbc With Differential Ord2 Baso% 0.5 % 12/26/2017 Cbc With Differential Ord2 PLT 302 K/ul 12/26/2017 Cbc With Differential Ord2 RDW 13.7 % 12/26/2017 Cbc With Differential Ord2 Neut ABS# 5.38 K/ul 12/26/2017 Cbc With Differential Ord2 Lymph ABS# 1.53 K/ul 12/26/2017 Cbc With Differential Ord2 [place] ABS# 0.7 K/ul 12/26/2017 Cbc With Differential Ord2 Eos ABS# 0.1 K/ul 12/26/2017 Cbc With Differential Ord2 Baso ABS# 0.0 K/ul 12/26/2017 Free T4 Ica378 FREE T4 0.93 ng/dL 12/26/2017 Comp Metabolic Bis419 NA 135 mEq/L 12/26/2017 Comp Metabolic Vor304 K 4.4 mEq/L 12/26/2017 Comp Metabolic Llg036 CL 98 mEq/L 12/26/2017 Comp Metabolic Ikx924 CO2 28.0 mEq/L 12/26/2017 Comp Metabolic Lef368 AN ION GAP 13 12/26/2017 Comp Metabolic Pck439 GL UCOSE 92 mg/dL 12/26/2017 Comp Metabolic Ikl256 Cr eat 1.1 mg/dL 12/26/2017 Comp Metabolic Qff633 eG FR 52 ml/min/1.73m2 12/26 Comp Metabolic Xsi333 BUN 25 mg/dL 12/26/2017 Comp Metabolic Hgv875 B/ C Ratio 22.7 Ratio 12/26/2017 Comp Metabolic Qux677 CA LCIUM 9.8 mg/dL 12/26/2017 Comp Metabolic Jij347 AL K PHOS 91 U/L 12/26/2017 Comp Metabolic Usc631 T(SGOT) 16 U/L 12/26/2017 Comp Metabolic Ocq781 AL T(SGPT) 12 U/L 12/26/2017 Comp Metabolic Mjv911 BI LI T 0.5 mg/dL 12/26/2017 Comp Metabolic Ewn318 AL BUMIN 4.3 g/dL 12/26/2017 Comp Metabolic Hkf938 TP RO 6.8 g/dL 12/26/2017 Comp Metabolic Zgi918 GL OB 2.5 g/dL 12/26/2017 Comp Metabolic Era826 A/ G Ratio 1.7 Ratio 12/26/2017 Comp Metabolic Ivq200 Os mo 274 mOsmo 12/26/2017 Urine Culture Ucult Comp lete NO Growth Day 2 06/29 Urine Culture Ucult Prel iminary NO Growth Day 1 06/29 Culture Urine [id number] URI NE CULTURE SEE NOTES 04/22/2016 Culture Urine [id number] Con tinued Results 04/22/2016 Urine Culture Ucult Comp lete >100,000 col/ml aerobic grow th sent to ref lab 04/20/2016 Comp Metabolic Lov227 NA 137 mEq/L 02/10/2016 Comp Metabolic Tnc298 K 4.1 mEq/L 02/10/2016 Comp Metabolic Lpl245 CL 102 mEq/L 02/10/2016 Comp Metabolic Jqn023 CO2 28.0 mEq/L 02/10/2016 Comp Metabolic Knc063 AN ION GAP 11 02/10/2016 Comp Metabolic Fvc703 GL UCOSE 104 mg/dL 02/10/2016 Comp Metabolic Jzb391 Cr eat 0.7 mg/dL 02/10/2016 Comp Metabolic Fls128 eG FR 83 ml/min/1.73m2 02/09 Comp Metabolic Dce307 BUN 14 mg/dL 02/10/2016 Comp Metabolic Cmz827 B/ C Ratio 18.9 Ratio 02/10/2016 Comp Metabolic Ver550 CA LCIUM 9.7 mg/dL 02/10/2016 Comp Metabolic Hel264 AL K PHOS 121 U/L 02/10/2016 Comp Metabolic Bmf074 T(SGOT) 19 U/L 02/10/2016 Comp Metabolic Xrq254 AL T(SGPT) 13 U/L 02/10/2016 Comp Metabolic Ray941 BI LI T 0.5 mg/dL 02/10/2016 Comp Metabolic Obo686 AL BUMIN 4.3 g/dL 02/10/2016 Comp Metabolic Urx761 TP RO 6.8 g/dL 02/10/2016 Comp Metabolic Oyt010 GL OB 2.5 g/dL 02/10/2016 Comp Metabolic Gku403 A/ G Ratio 1.7 Ratio 02/10/2016 Comp Metabolic Vcd937 Os mo 275 mOsmo 02/10/2016 Lipid Ord30 CHOL 229 mg/dL 02/10/2016 Lipid Ord30 HDL 59.0 mg/dl 02/10/2016 Lipid Ord30 TRIG 252 mg/dL 02/10/2016 Lipid Ord30 LDL 120 mg/dL 02/10/2016 Lipid Ord30 C/HDL 3.9 Ratio 02/10/2016 Free T4 Hiq829 FREE T4 0.87 ng/dL 02/10/2016 Tsh Ord6 hTSH II 0.79 uIU/mL 02/10/2016 Cbc With Differential Ord2 WBC 5.85 K/ul 02/10/2016 Cbc With Differential Ord2 RBC 4.39 M/ul 02/10/2016 Cbc With Differential Ord2 HGB 12.8 g/dl 02/10/2016 Cbc With Differential Ord2 Neut% 47.1 % 02/10/2016 Cbc With Differential Ord2 HCT 40.1 % 02/10/2016 Cbc With Differential Ord2 MCV 91.3 fl 02/10/2016 Cbc With Differential Ord2 Lymph% 30.9 % 02/10/2016 Cbc With Differential Ord2 MCH 29.2 pg 02/10/2016 Cbc With Differential Ord2 [place]% 18.6 % 02/10/2016 Cbc With Differential Ord2 MCHC 31.9 pg 02/10/2016 Cbc With Differential Ord2 Eos% 2.4 % 02/10/2016 Cbc With Differential Ord2 PLT 291 K/ul 02/10/2016 Cbc With Differential Ord2 Baso% 1.0 % 02/10/2016 Cbc With Differential Ord2 Neut ABS# 2.75 K/ul 02/10/2016 Cbc With Differential Ord2 RDW 14.0 % 02/10/2016 Cbc With Differential Ord2 Lymph ABS# 1.81 K/ul 02/10/2016 Cbc With Differential Ord2 [place] ABS# 1.1 K/ul 02/10/2016 Cbc With Differential Ord2 Eos ABS# 0.1 K/ul 02/10/2016 Cbc With Differential Ord2 Baso ABS# 0.1 K/ul 02/10/2016 Tsh Ord6 hTSH II 0.85 uIU/mL 04/02/2015 Lipid Ord30 CHOL 207 mg/dL 04/02/2015 Lipid Ord30 HDL 68.0 mg/dl 04/02/2015 Lipid Ord30 TRIG 193 mg/dL 04/02/2015 Lipid Ord30 LDL 100 mg/dL 04/02/2015 Lipid Ord30 C/HDL 3.0 Ratio 04/02/2015 Free T4 Rdw112 FREE T4 1.09 ng/dL 04/02/2015 Free T4 Ekq747 FREE T4 0.82 ng/dL 10/15/2014 Tsh Ord6 hTSH II 0.80 uIU/mL 10/15/2014 Review of Systems System Result Effective Dates Constitutional No recent illness 10/01/2018 Constitutional No chills 10/01/2018 Constitutional No diaphoresis 10/01/2018 Constitutional fatigue 0 10/01/2018 Constitutional No fever 10/01/2018 Constitutional No insomnia 10/01/2018 Constitutional No malaise 10/01/2018 Eyes No blindness 2018 Eyes No vision change Ears/Nose/Throat/Neck No dizziness 10/01/2018 Ears/Nose/Throat/Neck nasal allergies 10/01/2018 Ears/Nose/Throat/Neck No sore throat 10/01/2018 Cardiovascular No chest pain/pressure 10/01/2018 Cardiovascular No edema 10/01/2018 Cardiovascular No exercise intolerance 10/01/2018 Cardiovascular No fatigue 10/01/2018 Cardiovascular No palpitations 10/01/2018 Cardiovascular No syncope 10/01/2018 Respiratory No chest congestion 10/01/2018 Respiratory No cough 01/2019 Gastrointestinal No abdominal pain 10/01/2018 Gastrointestinal No constipation 10/01/2018 Genitourinary/Nephrology No dysuria 10/01/2018 Genitourinary/Nephrology No nocturia 10/01/2018 Genitourinary/Nephrology No urinary incontinence 10/01/2018 Musculoskeletal stiffness 10/01/2018 Musculoskeletal No swelling 10/01/2018 Musculoskeletal arthralgia(s) 10/01/2018 Musculoskeletal back pain 10/01/2018 Musculoskeletal joint complaint 10/01/2018 Musculoskeletal No muscle weakness 10/01/2018 Musculoskeletal No myalgias 10/01/2018 Dermatologic No rash 01/2019 Neurologic No alteration of consciousness 10/01/2018 Neurologic No mental status change 10/01/2018 Psychiatric No anxiety 0 10/01/2018 Psychiatric No depression 10/01/2018 Constitutional No recent illness 06/12/2018 Constitutional No chills 06/12/2018 Constitutional No diaphoresis 06/12/2018 Constitutional fatigue 0 06/12/2018 Constitutional No fever 06/12/2018 Constitutional No insomnia 06/12/2018 Constitutional No malaise 06/12/2018 Eyes No blindness 2018 Eyes No vision change Ears/Nose/Throat/Neck No dizziness 06/12/2018 Ears/Nose/Throat/Neck nasal allergies 06/12/2018 Ears/Nose/Throat/Neck No sore throat 06/12/2018 Cardiovascular No chest pain/pressure 06/12/2018 Cardiovascular No edema 06/12/2018 Cardiovascular No exercise intolerance 06/12/2018 Cardiovascular No fatigue 06/12/2018 Cardiovascular No palpitations 06/12/2018 Cardiovascular No syncope 06/12/2018 Respiratory No chest congestion 06/12/2018 Respiratory No cough Gastrointestinal No abdominal pain 06/12/2018 Gastrointestinal No constipation 06/12/2018 Genitourinary/Nephrology No dysuria 06/12/2018 Genitourinary/Nephrology No nocturia 06/12/2018 Genitourinary/Nephrology No urinary incontinence 06/12/2018 Musculoskeletal stiffness 06/12/2018 Musculoskeletal No swelling 06/12/2018 Musculoskeletal arthralgia(s) 06/12/2018 Musculoskeletal back pain 06/12/2018 Musculoskeletal joint complaint 06/12/2018 Musculoskeletal No muscle weakness 06/12/2018 Musculoskeletal No myalgias 06/12/2018 Dermatologic No rash Neurologic No alteration of consciousness 06/12/2018 Neurologic No mental status change 06/12/2018 Psychiatric No anxiety 0 06/12/2018 Psychiatric No depression 06/12/2018 Constitutional No recent illness 05/08/2018 Constitutional No chills 05/08/2018 Constitutional No diaphoresis 05/08/2018 Constitutional fatigue 0 05/08/2018 Constitutional No fever 05/08/2018 Constitutional No insomnia 05/08/2018 Constitutional No malaise 05/08/2018 Eyes No blindness 2018 Eyes No vision change Ears/Nose/Throat/Neck No dizziness 05/08/2018 Ears/Nose/Throat/Neck nasal allergies 05/08/2018 Ears/Nose/Throat/Neck No sore throat 05/08/2018 Cardiovascular No chest pain/pressure 05/08/2018 Cardiovascular No edema 05/08/2018 Cardiovascular No exercise intolerance 05/08/2018 Cardiovascular No fatigue 05/08/2018 Cardiovascular No palpitations 05/08/2018 Cardiovascular No syncope 05/08/2018 Respiratory No chest congestion 05/08/2018 Respiratory No cough Gastrointestinal No abdominal pain 05/08/2018 Gastrointestinal No constipation 05/08/2018 Genitourinary/Nephrology No dysuria 05/08/2018 Genitourinary/Nephrology No nocturia 05/08/2018 Genitourinary/Nephrology No urinary incontinence 05/08/2018 Musculoskeletal stiffness 05/08/2018 Musculoskeletal No swelling 05/08/2018 Musculoskeletal arthralgia(s) 05/08/2018 Musculoskeletal back pain 05/08/2018 Musculoskeletal joint complaint 05/08/2018 Musculoskeletal No muscle weakness 05/08/2018 Musculoskeletal No myalgias 05/08/2018 Dermatologic No rash Neurologic No alteration of consciousness 05/08/2018 Neurologic No mental status change 05/08/2018 Psychiatric No anxiety 0 05/08/2018 Psychiatric No depression 05/08/2018 Constitutional No recent illness 03/27/2018 Constitutional No chills 03/27/2018 Constitutional No diaphoresis 03/27/2018 Constitutional fatigue 0 03/27/2018 Constitutional No fever 03/27/2018 Constitutional No insomnia 03/27/2018 Constitutional No malaise 03/27/2018 Eyes No blindness 2018 Eyes No vision change Ears/Nose/Throat/Neck No dizziness 03/27/2018 Ears/Nose/Throat/Neck nasal allergies 03/27/2018 Ears/Nose/Throat/Neck No sore throat 03/27/2018 Cardiovascular No chest pain/pressure 03/27/2018 Cardiovascular No edema 03/27/2018 Cardiovascular No exercise intolerance 03/27/2018 Cardiovascular No fatigue 03/27/2018 Cardiovascular No palpitations 03/27/2018 Cardiovascular No syncope 03/27/2018 Respiratory No chest congestion 03/27/2018 Respiratory No cough 06/2018 Gastrointestinal No abdominal pain 03/27/2018 Gastrointestinal No constipation 03/27/2018 Musculoskeletal stiffness 03/27/2018 Musculoskeletal No swelling 03/27/2018 Musculoskeletal arthralgia(s) 03/27/2018 Musculoskeletal back pain 03/27/2018 Musculoskeletal joint complaint 03/27/2018 Musculoskeletal No muscle weakness 03/27/2018 Musculoskeletal No myalgias 03/27/2018 Dermatologic No rash 06/2018 Neurologic No alteration of consciousness 03/27/2018 Neurologic No mental status change 03/27/2018 Psychiatric No anxiety 0 03/27/2018 Psychiatric No depression 03/27/2018 Constitutional No recent illness 01/02/2018 Constitutional No chills 01/02/2018 Constitutional No diaphoresis 01/02/2018 Constitutional No fatigue 01/02/2018 Constitutional No fever 01/02/2018 Constitutional No insomnia 01/02/2018 Constitutional No malaise 01/02/2018 Eyes No blindness 2017 Eyes No vision change Ears/Nose/Throat/Neck No dizziness 01/02/2018 Ears/Nose/Throat/Neck nasal allergies 01/02/2018 Ears/Nose/Throat/Neck No sore throat 01/02/2018 Cardiovascular No chest pain/pressure 01/02/2018 Cardiovascular No edema 01/02/2018 Cardiovascular No exercise intolerance 01/02/2018 Cardiovascular No fatigue 01/02/2018 Cardiovascular No palpitations 01/02/2018 Cardiovascular No syncope 01/02/2018 Respiratory No chest congestion 01/02/2018 Respiratory No cough Gastrointestinal No abdominal pain 01/02/2018 Gastrointestinal No constipation 01/02/2018 Genitourinary/Nephrology No dysuria 01/02/2018 Genitourinary/Nephrology No nocturia 01/02/2018 Genitourinary/Nephrology No urinary incontinence 01/02/2018 Musculoskeletal stiffness 01/02/2018 Musculoskeletal No swelling 01/02/2018 Musculoskeletal arthralgia(s) 01/02/2018 Musculoskeletal back pain 01/02/2018 Musculoskeletal joint complaint 01/02/2018 Musculoskeletal No muscle weakness 01/02/2018 Musculoskeletal No myalgias 01/02/2018 Dermatologic No rash Neurologic No alteration of consciousness 01/02/2018 Neurologic No mental status change 01/02/2018 Psychiatric No anxiety 1 03/04/2017 Psychiatric No depression 01/02/2018 Constitutional No recent illness 12/26/2017 Constitutional No chills 12/26/2017 Constitutional No diaphoresis 12/26/2017 Constitutional No fatigue 12/26/2017 Constitutional No fever 12/26/2017 Constitutional No insomnia 12/26/2017 Constitutional No malaise 12/26/2017 Eyes No blindness 2017 Eyes No vision change Ears/Nose/Throat/Neck No dizziness 12/26/2017 Ears/Nose/Throat/Neck nasal allergies 12/26/2017 Ears/Nose/Throat/Neck No sore throat 12/26/2017 Cardiovascular No chest pain/pressure 12/26/2017 Cardiovascular No edema 12/26/2017 Cardiovascular No exercise intolerance 12/26/2017 Cardiovascular No fatigue 12/26/2017 Cardiovascular No palpitations 12/26/2017 Cardiovascular No syncope 12/26/2017 Respiratory No chest congestion 12/26/2017 Respiratory No cough 07/2017 Gastrointestinal No abdominal pain 12/26/2017 Gastrointestinal No constipation 12/26/2017 Genitourinary/Nephrology No dysuria 12/26/2017 Genitourinary/Nephrology No nocturia 12/26/2017 Genitourinary/Nephrology No urinary incontinence 12/26/2017 Musculoskeletal stiffness 12/26/2017 Musculoskeletal No swelling 12/26/2017 Musculoskeletal arthralgia(s) 12/26/2017 Musculoskeletal joint complaint 12/26/2017 Musculoskeletal No muscle weakness 12/26/2017 Musculoskeletal No myalgias 12/26/2017 Dermatologic No rash 07/2017 Neurologic No alteration of consciousness 12/26/2017 Neurologic No mental status change 12/26/2017 Psychiatric No anxiety 1 02/25/2017 Psychiatric No depression 12/26/2017 Musculoskeletal back pain 12/26/2017 Constitutional No recent illness 10/17/2017 Constitutional No anorexia 10/17/2017 Constitutional No night sweats 10/17/2017 Constitutional No chills 10/17/2017 Constitutional No diaphoresis 10/17/2017 Constitutional No fatigue 10/17/2017 Constitutional No fever 10/17/2017 Constitutional No insomnia 10/17/2017 Constitutional No malaise 10/17/2017 Constitutional No weight gain 10/17/2017 Constitutional No weight loss 10/17/2017 Eyes No eye discharge Eyes No eye erythema Ears/Nose/Throat/Neck No headache 10/17/2017 Ears/Nose/Throat/Neck No nasal discharge 10/17/2017 Ears/Nose/Throat/Neck nasal allergies 10/17/2017 Ears/Nose/Throat/Neck otalgia 10/17/2017 Cardiovascular No chest pain/pressure 10/17/2017 Respiratory No cough Cardiovascular hypertension 10/17/2017 Gastrointestinal No abdominal pain 10/17/2017 Gastrointestinal No constipation 10/17/2017 Gastrointestinal No diarrhea 10/17/2017 Genitourinary/Nephrology No dysuria 10/17/2017 Musculoskeletal No joint complaint 10/17/2017 Dermatologic No rash Cardiovascular edema Constitutional No recent illness 09/27/2017 Constitutional No chills 09/27/2017 Constitutional No diaphoresis 09/27/2017 Constitutional No fatigue 09/27/2017 Constitutional No fever 09/27/2017 Constitutional No insomnia 09/27/2017 Constitutional No malaise 09/27/2017 Eyes No blindness 2017 Eyes No vision change Ears/Nose/Throat/Neck No dizziness 09/27/2017 Ears/Nose/Throat/Neck nasal allergies 09/27/2017 Ears/Nose/Throat/Neck No sore throat 09/27/2017 Cardiovascular No chest pain/pressure 09/27/2017 Cardiovascular No edema 09/27/2017 Cardiovascular No exercise intolerance 09/27/2017 Cardiovascular No fatigue 09/27/2017 Cardiovascular No palpitations 09/27/2017 Cardiovascular No syncope 09/27/2017 Gastrointestinal No abdominal pain 09/27/2017 Gastrointestinal No constipation 09/27/2017 Gastrointestinal diarrhea 09/27/2017 Genitourinary/Nephrology No dysuria 09/27/2017 Genitourinary/Nephrology No nocturia 09/27/2017 Genitourinary/Nephrology No urinary incontinence 09/27/2017 Musculoskeletal stiffness 09/27/2017 Musculoskeletal No swelling 09/27/2017 Musculoskeletal arthralgia(s) 09/27/2017 Musculoskeletal joint complaint 09/27/2017 Musculoskeletal No muscle weakness 09/27/2017 Musculoskeletal No myalgias 09/27/2017 Dermatologic No rash 09/2017 Neurologic No alteration of consciousness 09/27/2017 Neurologic No mental status change 09/27/2017 Psychiatric No anxiety 0 09/27/2017 Psychiatric No depression 09/27/2017 Respiratory No cough 09/2017 Respiratory No chest congestion 09/27/2017 Constitutional No recent illness 03/24/2017 Constitutional No chills 03/24/2017 Constitutional No diaphoresis 03/24/2017 Constitutional No fatigue 03/24/2017 Constitutional No fever 03/24/2017 Constitutional No insomnia 03/24/2017 Constitutional No malaise 03/24/2017 Eyes No blindness 2017 Eyes No vision change Ears/Nose/Throat/Neck No dizziness 03/24/2017 Ears/Nose/Throat/Neck nasal allergies 03/24/2017 Ears/Nose/Throat/Neck No sore throat 03/24/2017 Cardiovascular No chest pain/pressure 03/24/2017 Cardiovascular No edema 03/24/2017 Cardiovascular No exercise intolerance 03/24/2017 Cardiovascular No fatigue 03/24/2017 Cardiovascular No palpitations 03/24/2017 Cardiovascular No syncope 03/24/2017 Gastrointestinal No abdominal pain 03/24/2017 Gastrointestinal No constipation 03/24/2017 Gastrointestinal diarrhea 03/24/2017 Genitourinary/Nephrology No dysuria 03/24/2017 Genitourinary/Nephrology No nocturia 03/24/2017 Genitourinary/Nephrology No urinary incontinence 03/24/2017 Musculoskeletal stiffness 03/24/2017 Musculoskeletal No swelling 03/24/2017 Musculoskeletal arthralgia(s) 03/24/2017 Musculoskeletal No muscle weakness 03/24/2017 Musculoskeletal No myalgias 03/24/2017 Dermatologic No rash 03/2017 Neurologic No alteration of consciousness 03/24/2017 Neurologic No mental status change 03/24/2017 Psychiatric No anxiety 0 03/24/2017 Psychiatric No depression 03/24/2017 Musculoskeletal joint complaint 03/24/2017 Constitutional No recent illness 08/30/2016 Constitutional No chills 08/30/2016 Constitutional No diaphoresis 08/30/2016 Constitutional No fatigue 08/30/2016 Constitutional No fever 08/30/2016 Constitutional No insomnia 08/30/2016 Constitutional No malaise 08/30/2016 Eyes No blindness 2016 Eyes No vision change Ears/Nose/Throat/Neck No dizziness 08/30/2016 Ears/Nose/Throat/Neck nasal allergies 08/30/2016 Ears/Nose/Throat/Neck No sore throat 08/30/2016 Cardiovascular No chest pain/pressure 08/30/2016 Cardiovascular No edema 08/30/2016 Cardiovascular No exercise intolerance 08/30/2016 Cardiovascular No fatigue 08/30/2016 Cardiovascular No palpitations 08/30/2016 Cardiovascular No syncope 08/30/2016 Gastrointestinal No abdominal pain 08/30/2016 Gastrointestinal No constipation 08/30/2016 Gastrointestinal diarrhea 08/30/2016 Genitourinary/Nephrology No dysuria 08/30/2016 Genitourinary/Nephrology No nocturia 08/30/2016 Genitourinary/Nephrology No urinary incontinence 08/30/2016 Musculoskeletal stiffness 08/30/2016 Musculoskeletal No swelling 08/30/2016 Musculoskeletal arthralgia(s) 08/30/2016 Musculoskeletal No muscle weakness 08/30/2016 Musculoskeletal No myalgias 08/30/2016 Dermatologic No rash 12/2016 Neurologic No alteration of consciousness 08/30/2016 Neurologic No mental status change 08/30/2016 Psychiatric No anxiety 0 08/30/2016 Psychiatric No depression 08/30/2016 Constitutional recent illness 08/08/2016 Constitutional No anorexia 08/08/2016 Constitutional No night sweats 08/08/2016 Constitutional No chills 08/08/2016 Constitutional No fever 08/08/2016 Constitutional No fatigue 08/08/2016 Constitutional No diaphoresis 08/08/2016 Constitutional No insomnia 08/08/2016 Constitutional No malaise 08/08/2016 Constitutional No weight gain 08/08/2016 Constitutional No weight loss 08/08/2016 Eyes No eye discharge Eyes No eye erythema Ears/Nose/Throat/Neck No dizziness 08/08/2016 Ears/Nose/Throat/Neck No headache 08/08/2016 Cardiovascular No chest pain/pressure 08/08/2016 Cardiovascular No dyspnea 08/08/2016 Cardiovascular No edema 08/08/2016 Respiratory No productive sputum 08/08/2016 Respiratory pleuritic pain 08/08/2016 Respiratory No cough Gastrointestinal No abdominal pain 08/08/2016 Genitourinary/Nephrology No dysuria 08/08/2016 Musculoskeletal No joint complaint 08/08/2016 Dermatologic No rash Neurologic No alteration of consciousness 08/08/2016 Constitutional recent illness 06/27/2016 Constitutional No fever 06/27/2016 Constitutional No diaphoresis 06/27/2016 Constitutional No chills 06/27/2016 Eyes No eye erythema 09/2016 Ears/Nose/Throat/Neck No nasal allergies 06/27/2016 Ears/Nose/Throat/Neck No nasal discharge 06/27/2016 Cardiovascular No chest pain/pressure 06/27/2016 Respiratory No dyspnea 0 06/27/2016 Genitourinary/Nephrology dysuria 06/27/2016 Genitourinary/Nephrology urinary urgency 06/27/2016 Genitourinary/Nephrology urinary frequency 06/27/2016 Genitourinary/Nephrology vaginal discharge 06/27/2016 Musculoskeletal No joint complaint 06/27/2016 Neurologic No alteration of consciousness 06/27/2016 Neurologic No mental status change 06/27/2016 Musculoskeletal joint complaint 05/23/2016 Musculoskeletal swelling 05/23/2016 Musculoskeletal arthralgia(s) 05/23/2016 Constitutional No recent illness 05/23/2016 Constitutional No night sweats 05/23/2016 Constitutional No anorexia 05/23/2016 Constitutional No chills 05/23/2016 Constitutional No diaphoresis 05/23/2016 Constitutional No fatigue 05/23/2016 Constitutional No fever 05/23/2016 Constitutional No insomnia 05/23/2016 Constitutional No malaise 05/23/2016 Constitutional No weight loss 05/23/2016 Constitutional No weight gain 05/23/2016 Constitutional No recent illness 04/18/2016 Constitutional No fever 04/18/2016 Eyes No eye erythema Ears/Nose/Throat/Neck No nasal allergies 04/18/2016 Ears/Nose/Throat/Neck No nasal discharge 04/18/2016 Cardiovascular No chest pain/pressure 04/18/2016 Cardiovascular No dyspnea 04/18/2016 Respiratory No cough Respiratory No dyspnea 0 04/18/2016 Gastrointestinal No abdominal pain 04/18/2016 Genitourinary/Nephrology No genital lesion 04/18/2016 Neurologic No alteration of consciousness 04/18/2016 Neurologic No mental status change 04/18/2016 Genitourinary/Nephrology No flank pain 04/18/2016 Genitourinary/Nephrology No hematuria 04/18/2016 Genitourinary/Nephrology No pelvic pain 04/18/2016 Constitutional No recent illness 03/07/2016 Constitutional No fever 03/07/2016 Eyes No eye erythema Ears/Nose/Throat/Neck No nasal allergies 03/07/2016 Ears/Nose/Throat/Neck No nasal discharge 03/07/2016 Cardiovascular No chest pain/pressure 03/07/2016 Cardiovascular No dyspnea 03/07/2016 Respiratory No cough Respiratory No dyspnea 0 03/07/2016 Gastrointestinal diarrhea 03/07/2016 Gastrointestinal No abdominal pain 03/07/2016 Genitourinary/Nephrology No vaginal discharge 03/07/2016 Genitourinary/Nephrology No genital lesion 03/07/2016 Genitourinary/Nephrology No dysuria 03/07/2016 Neurologic No alteration of consciousness 03/07/2016 Neurologic No mental status change 03/07/2016 Constitutional No recent illness 02/23/2016 Constitutional No chills 02/23/2016 Constitutional No diaphoresis 02/23/2016 Constitutional No fatigue 02/23/2016 Constitutional No fever 02/23/2016 Constitutional No insomnia 02/23/2016 Constitutional No malaise 02/23/2016 Eyes No blindness 2016 Eyes No vision change Ears/Nose/Throat/Neck No dizziness 02/23/2016 Ears/Nose/Throat/Neck nasal allergies 02/23/2016 Ears/Nose/Throat/Neck No sore throat 02/23/2016 Cardiovascular No chest pain/pressure 02/23/2016 Cardiovascular No edema 02/23/2016 Cardiovascular No exercise intolerance 02/23/2016 Cardiovascular No fatigue 02/23/2016 Cardiovascular No palpitations 02/23/2016 Cardiovascular No syncope 02/23/2016 Gastrointestinal No abdominal pain 02/23/2016 Gastrointestinal No constipation 02/23/2016 Genitourinary/Nephrology No dysuria 02/23/2016 Genitourinary/Nephrology No nocturia 02/23/2016 Genitourinary/Nephrology No urinary incontinence 02/23/2016 Musculoskeletal stiffness 02/23/2016 Musculoskeletal No swelling 02/23/2016 Musculoskeletal arthralgia(s) 02/23/2016 Musculoskeletal No muscle weakness 02/23/2016 Musculoskeletal No myalgias 02/23/2016 Dermatologic No rash 04/2016 Neurologic No alteration of consciousness 02/23/2016 Neurologic No mental status change 02/23/2016 Psychiatric No anxiety 0 02/23/2016 Psychiatric No depression 02/23/2016 Gastrointestinal diarrhea 02/23/2016 Constitutional No recent illness 09/15/2015 Constitutional No chills 09/15/2015 Constitutional No diaphoresis 09/15/2015 Constitutional No fatigue 09/15/2015 Constitutional No fever 09/15/2015 Constitutional No insomnia 09/15/2015 Constitutional No malaise 09/15/2015 Eyes No blindness 2015 Eyes No vision change Ears/Nose/Throat/Neck No dizziness 09/15/2015 Ears/Nose/Throat/Neck nasal allergies 09/15/2015 Ears/Nose/Throat/Neck No sore throat 09/15/2015 Cardiovascular No chest pain/pressure 09/15/2015 Cardiovascular No edema 09/15/2015 Cardiovascular No exercise intolerance 09/15/2015 Cardiovascular No fatigue 09/15/2015 Cardiovascular No palpitations 09/15/2015 Cardiovascular No syncope 09/15/2015 Gastrointestinal No abdominal pain 09/15/2015 Gastrointestinal No constipation 09/15/2015 Gastrointestinal No vomiting 09/15/2015 Genitourinary/Nephrology No dysuria 09/15/2015 Genitourinary/Nephrology No nocturia 09/15/2015 Genitourinary/Nephrology No urinary incontinence 09/15/2015 Musculoskeletal stiffness 09/15/2015 Musculoskeletal No swelling 09/15/2015 Musculoskeletal arthralgia(s) 09/15/2015 Musculoskeletal No muscle weakness 09/15/2015 Musculoskeletal No myalgias 09/15/2015 Dermatologic No rash Neurologic No alteration of consciousness 09/15/2015 Neurologic No mental status change 09/15/2015 Psychiatric No anxiety 0 09/15/2015 Psychiatric No depression 09/15/2015 Constitutional No recent illness 05/26/2015 Constitutional No chills 05/26/2015 Constitutional No diaphoresis 05/26/2015 Constitutional No fatigue 05/26/2015 Constitutional No fever 05/26/2015 Constitutional No insomnia 05/26/2015 Constitutional No malaise 05/26/2015 Eyes No eye erythema 06/2015 Eyes No vision change Ears/Nose/Throat/Neck No sore throat 05/26/2015 Cardiovascular No chest pain/pressure 05/26/2015 Respiratory No cough 06/2015 Respiratory No dyspnea 0 05/26/2015 Gastrointestinal No vomiting 05/26/2015 Dermatologic rash 2015 Neurologic No alteration of consciousness 05/26/2015 Neurologic No mental status change 05/26/2015 Ears/Nose/Throat/Neck No nasal allergies 05/26/2015 Ears/Nose/Throat/Neck No nasal discharge 05/26/2015 Ears/Nose/Throat/Neck No sinus congestion 05/26/2015 Cardiovascular No dyspnea 05/26/2015 Respiratory No chest congestion 05/26/2015 Gastrointestinal No nausea 05/26/2015 Constitutional No recent illness 04/09/2015 Constitutional No chills 04/09/2015 Constitutional No diaphoresis 04/09/2015 Constitutional No fatigue 04/09/2015 Constitutional No fever 04/09/2015 Constitutional No insomnia 04/09/2015 Constitutional No malaise 04/09/2015 Eyes No blindness 2015 Eyes No vision change Ears/Nose/Throat/Neck No dizziness 04/09/2015 Ears/Nose/Throat/Neck No sore throat 04/09/2015 Cardiovascular No chest pain/pressure 04/09/2015 Cardiovascular No edema 04/09/2015 Cardiovascular No exercise intolerance 04/09/2015 Cardiovascular No fatigue 04/09/2015 Cardiovascular No palpitations 04/09/2015 Cardiovascular No syncope 04/09/2015 Respiratory No chest tightness 04/09/2015 Respiratory No cigarette smoking 04/09/2015 Respiratory No cough Respiratory No dyspnea 0 04/09/2015 Respiratory No pedal edema 04/09/2015 Respiratory No snoring 0 04/09/2015 Respiratory No wheezing 04/09/2015 Gastrointestinal No abdominal pain 04/09/2015 Gastrointestinal No constipation 04/09/2015 Gastrointestinal No vomiting 04/09/2015 Genitourinary/Nephrology No dysuria 04/09/2015 Genitourinary/Nephrology No nocturia 04/09/2015 Genitourinary/Nephrology No urinary incontinence 04/09/2015 Musculoskeletal stiffness 04/09/2015 Musculoskeletal No swelling 04/09/2015 Musculoskeletal arthralgia(s) 04/09/2015 Musculoskeletal No muscle weakness 04/09/2015 Musculoskeletal No myalgias 04/09/2015 Dermatologic No rash Neurologic No alteration of consciousness 04/09/2015 Neurologic gait abnormality 04/09/2015 Neurologic No mental status change 04/09/2015 Neurologic weakness 03/23 Psychiatric No anxiety 0 04/09/2015 Psychiatric No depression 04/09/2015 Constitutional No recent illness 03/30/2015 Musculoskeletal back pain 03/30/2015 Constitutional No diaphoresis 03/30/2015 Constitutional No chills 03/30/2015 Constitutional fatigue 0 03/30/2015 Constitutional No fever 03/30/2015 Constitutional No malaise 03/30/2015 Constitutional No insomnia 03/30/2015 Eyes No vision change Eyes No eye discharge Eyes No eye erythema 09/2015 Ears/Nose/Throat/Neck No dizziness 03/30/2015 Ears/Nose/Throat/Neck No headache 03/30/2015 Ears/Nose/Throat/Neck No facial pain 03/30/2015 Ears/Nose/Throat/Neck No dental pain 03/30/2015 Ears/Nose/Throat/Neck No nasal allergies 03/30/2015 Ears/Nose/Throat/Neck No nasal discharge 03/30/2015 Ears/Nose/Throat/Neck No hearing loss 03/30/2015 Ears/Nose/Throat/Neck No hoarseness 03/30/2015 Ears/Nose/Throat/Neck No sinus congestion 03/30/2015 Cardiovascular No chest pain/pressure 03/30/2015 Cardiovascular No dyspnea 03/30/2015 Cardiovascular No edema 03/30/2015 Cardiovascular fatigue 0 03/30/2015 Respiratory No chest congestion 03/30/2015 Respiratory No cough 09/2015 Gastrointestinal No abdominal pain 03/30/2015 Gastrointestinal No diarrhea 03/30/2015 Gastrointestinal No constipation 03/30/2015 Gastrointestinal No gastroesophageal reflu x 03/30/2015 Gastrointestinal No nausea 03/30/2015 Gastrointestinal No melena 03/30/2015 Genitourinary/Nephrology No dysuria 03/30/2015 Genitourinary/Nephrology No flank pain 03/30/2015 Dermatologic No rash 09/2015 Dermatologic No sores Neurologic No alteration of consciousness 03/30/2015 Neurologic No dyskinesia or tremor 03/30/2015 Psychiatric No anxiety 0 03/30/2015 Psychiatric No depression 03/30/2015 Endocrine No cold sensitivity 03/30/2015 Respiratory No dyspnea 0 03/30/2015 Neurologic gait abnormality 03/30/2015 Constitutional No recent illness 03/10/2015 Constitutional No chills 03/10/2015 Constitutional No diaphoresis 03/10/2015 Constitutional No fatigue 03/10/2015 Constitutional No fever 03/10/2015 Constitutional No insomnia 03/10/2015 Constitutional No malaise 03/10/2015 Eyes No blindness 2015 Eyes No vision change Ears/Nose/Throat/Neck No dizziness 03/10/2015 Ears/Nose/Throat/Neck No sore throat 03/10/2015 Cardiovascular No chest pain/pressure 03/10/2015 Cardiovascular No edema 03/10/2015 Cardiovascular No exercise intolerance 03/10/2015 Cardiovascular No fatigue 03/10/2015 Cardiovascular No palpitations 03/10/2015 Cardiovascular No syncope 03/10/2015 Gastrointestinal No abdominal pain 03/10/2015 Gastrointestinal No constipation 03/10/2015 Gastrointestinal No vomiting 03/10/2015 Genitourinary/Nephrology No dysuria 03/10/2015 Genitourinary/Nephrology No nocturia 03/10/2015 Genitourinary/Nephrology No urinary incontinence 03/10/2015 Musculoskeletal stiffness 03/10/2015 Musculoskeletal No swelling 03/10/2015 Musculoskeletal arthralgia(s) 03/10/2015 Musculoskeletal No muscle weakness 03/10/2015 Musculoskeletal No myalgias 03/10/2015 Dermatologic No rash Neurologic No alteration of consciousness 03/10/2015 Neurologic No mental status change 03/10/2015 Psychiatric No anxiety 0 03/10/2015 Psychiatric No depression 03/10/2015 Respiratory No chest tightness 03/10/2015 Respiratory No cigarette smoking 03/10/2015 Respiratory No cough Respiratory No dyspnea 0 03/10/2015 Respiratory No pedal edema 03/10/2015 Respiratory No snoring 0 03/10/2015 Respiratory No wheezing 03/10/2015 Neurologic gait abnormality 03/10/2015 Neurologic weakness 02/20 Constitutional No recent illness 12/16/2014 Constitutional No anorexia 12/16/2014 Constitutional No night sweats 12/16/2014 Constitutional No chills 12/16/2014 Constitutional No diaphoresis 12/16/2014 Constitutional No fatigue 12/16/2014 Constitutional No fever 12/16/2014 Constitutional No insomnia 12/16/2014 Constitutional No malaise 12/16/2014 Constitutional No weight loss 12/16/2014 Constitutional No weight gain 12/16/2014 Musculoskeletal joint complaint 12/16/2014 Musculoskeletal back pain 12/16/2014 Musculoskeletal sciatica 12/16/2014 Dermatologic No rash Dermatologic No sores Neurologic No alteration of consciousness 12/16/2014 Constitutional No recent illness 12/09/2014 Constitutional No anorexia 12/09/2014 Constitutional No night sweats 12/09/2014 Constitutional No chills 12/09/2014 Constitutional No diaphoresis 12/09/2014 Constitutional No fatigue 12/09/2014 Constitutional No weight gain 12/09/2014 Constitutional No weight loss 12/09/2014 Constitutional No malaise 12/09/2014 Constitutional No insomnia 12/09/2014 Constitutional No fever 12/09/2014 Musculoskeletal sciatica 12/09/2014 Musculoskeletal back pain 12/09/2014 Gastrointestinal No diarrhea 12/09/2014 Genitourinary/Nephrology No urinary incontinence 12/09/2014 Constitutional No recent illness 11/13/2014 Constitutional No chills 11/13/2014 Constitutional No diaphoresis 11/13/2014 Constitutional No fatigue 11/13/2014 Constitutional No fever 11/13/2014 Constitutional No insomnia 11/13/2014 Constitutional No malaise 11/13/2014 Eyes No blindness 2014 Eyes No vision change Ears/Nose/Throat/Neck No dizziness 11/13/2014 Ears/Nose/Throat/Neck No sore throat 11/13/2014 Cardiovascular No chest pain/pressure 11/13/2014 Cardiovascular No edema 11/13/2014 Cardiovascular No exercise intolerance 11/13/2014 Cardiovascular No fatigue 11/13/2014 Cardiovascular No palpitations 11/13/2014 Cardiovascular No syncope 11/13/2014 Gastrointestinal No abdominal pain 11/13/2014 Gastrointestinal No constipation 11/13/2014 Gastrointestinal No vomiting 11/13/2014 Genitourinary/Nephrology No dysuria 11/13/2014 Genitourinary/Nephrology No nocturia 11/13/2014 Genitourinary/Nephrology No urinary incontinence 11/13/2014 Musculoskeletal stiffness 11/13/2014 Musculoskeletal No swelling 11/13/2014 Musculoskeletal arthralgia(s) 11/13/2014 Musculoskeletal No muscle weakness 11/13/2014 Musculoskeletal No myalgias 11/13/2014 Dermatologic No rash Neurologic No alteration of consciousness 11/13/2014 Neurologic No mental status change 11/13/2014 Psychiatric No anxiety 0 11/13/2014 Psychiatric No depression 11/13/2014 Constitutional No chills 07/10/2014 Constitutional No diaphoresis 07/10/2014 Constitutional No fatigue 07/10/2014 Constitutional No fever 07/10/2014 Constitutional No insomnia 07/10/2014 Constitutional No malaise 07/10/2014 Constitutional No recent illness 07/10/2014 Ears/Nose/Throat/Neck No dizziness 07/10/2014 Ears/Nose/Throat/Neck No sore throat 07/10/2014 Cardiovascular No chest pain/pressure 07/10/2014 Cardiovascular No edema 07/10/2014 Cardiovascular No exercise intolerance 07/10/2014 Cardiovascular No fatigue 07/10/2014 Cardiovascular No palpitations 07/10/2014 Cardiovascular No syncope 07/10/2014 Respiratory chest congestion 07/10/2014 Respiratory cough 2014 Gastrointestinal No abdominal pain 07/10/2014 Gastrointestinal No constipation 07/10/2014 Gastrointestinal diarrhea 07/10/2014 Gastrointestinal nausea 07/10/2014 Gastrointestinal No vomiting 07/10/2014 Dermatologic No rash Neurologic No alteration of consciousness 07/10/2014 Neurologic No mental status change 07/10/2014 Genitourinary/Nephrology No dysuria 07/10/2014 Genitourinary/Nephrology No nocturia 07/10/2014 Genitourinary/Nephrology No urinary incontinence 07/10/2014 Musculoskeletal stiffness 07/10/2014 Musculoskeletal No swelling 07/10/2014 Musculoskeletal No muscle weakness 07/10/2014 Musculoskeletal No myalgias 07/10/2014 Musculoskeletal arthralgia(s) 07/10/2014 Ears/Nose/Throat/Neck nasal allergies 07/10/2014 Psychiatric No anxiety 0 07/10/2014 Psychiatric No depression 07/10/2014 Eyes No blindness 2014 Eyes No vision change Physical Exam Exam Name System Name It em Name Status Result Effective Dates Notes Full Exam - General 1994 Constitutional general appearance Development: well developed 10/01/2018 None Full Exam - General 1994 Constitutional general appearance Development: appears stated age 0810/01/2018 None Full Exam - General 1994 Constitutional general appearance Hygiene/Attention to Grooming: good hygiene 10/01/2018 None Full Exam - General 1994 Eyes conjunctiva/eyelids Overall: conjunctiva clear 10/01/2018 None Full Exam - General 1994 Eyes conjunctiva/eyelids Overall: cornea clear 10/01/2018 None Full Exam - General 1994 Eyes conjunctiva/eyelids Overall: eyelids normal 10/01/2018 None Full Exam - General 1994 Eyes pupils and irises Overall: pupils equal, round, reactive to light and accomodation 10/01/2018 None Full Exam - General 1994 Ears/Nose/Throat otoscopic exam Overall: external auditory canals clear 10/01/2018 None Full Exam - General 1994 Ears/Nose/Throat otoscopic exam Overall: tympanic membranes clear 10/01/2018 None Full Exam - General 1994 Ears/Nose/Throat lips/teeth/gingiva Overall: benign lips 10/01/2018 None Full Exam - General 1994 Ears/Nose/Throat lips/teeth/gingiva Overall: normal dentition 10/01/2018 None Full Exam - General 1994 Ears/Nose/Throat oral cavity/pharynx/larynx Overall: oral mucosa clear 10/01/2018 None Full Exam - General 1994 Ears/Nose/Throat oral cavity/pharynx/larynx Overall: oropharyngeal mucosa clear 10/01/2018 None Full Exam - General 1994 Ears/Nose/Throat oral cavity/pharynx/larynx Overall: hypopharynx benign 10/01/2018 None Full Exam - General 1994 Ears/Nose/Throat oral cavity/pharynx/larynx Overall: no masses 10/01/2018 None Full Exam - General 1994 Respiratory auscultation Overall: breath sounds clear bilaterally 10/01/2018 None Full Exam - General 1994 Respiratory respiratory effort/rhythm Overall: no retractions 10/01/2018 None Full Exam - General 1994 Respiratory respiratory effort/rhythm Overall: normal rate 10/01/2018 None Full Exam - General 1994 Cardiovascular extremities Overall: no clubbing 10/01/2018 None Full Exam - General 1994 Cardiovascular auscultation of heart Overall: regular rate 10/01/2018 None Full Exam - General 1994 Cardiovascular auscultation of heart Overall: normal heart sounds 10/01/2018 None Full Exam - General 1994 Abdomen abdominal exam Overall: no tenderness 10/01/2018 None Full Exam - General 1994 Lymphatic neck nodes Overall: anterior cervical chain benign 10/01/2018 None Full Exam - General 1994 Lymphatic neck nodes Overall: posterior cervical chain benign 10/01/2018 None Full Exam - General 1994 Musculoskeletal digits and nails DIPs: first 10/01/2018 None Full Exam - General 1994 Musculoskeletal digits and nails DIPs: second 10/01/2018 None Full Exam - General 1994 Musculoskeletal digits and nails DIPs: third 10/01/2018 None Full Exam - General 1994 Musculoskeletal digits and nails DIPs: fourth 10/01/2018 None Full Exam - General 1994 Musculoskeletal digits and nails DIPs: fifth 10/01/2018 None Full Exam - General 1994 Musculoskeletal digits and nails DIPs: tender 10/01/2018 None Full Exam - General 1994 Musculoskeletal digits and nails DIPs: swelling 10/01/2018 None Full Exam - General 1994 Musculoskeletal digits and nails PIPs: first 10/01/2018 None Full Exam - General 1994 Musculoskeletal digits and nails PIPs: second 10/01/2018 None Full Exam - General 1994 Musculoskeletal digits and nails PIPs: third 10/01/2018 None Full Exam - General 1994 Musculoskeletal digits and nails PIPs: fourth 10/01/2018 None Full Exam - General 1994 Musculoskeletal digits and nails PIPs: fifth 10/01/2018 None Full Exam - General 1994 Musculoskeletal digits and nails PIPs: swelling 10/01/2018 None Full Exam - General 1994 Musculoskeletal digits and nails PIPs: deformity 10/01/2018 None Full Exam - General 1994 Musculoskeletal digits and nails PIPs: bony enlargement 10/01/2018 None Full Exam - General 1994 Musculoskeletal digits and nails MCPs: first 10/01/2018 None Full Exam - General 1994 Musculoskeletal digits and nails MCPs: second 10/01/2018 None Full Exam - General 1994 Musculoskeletal digits and nails MCPs: third 10/01/2018 None Full Exam - General 1994 Musculoskeletal digits and nails MCPs: swelling 10/01/2018 None Full Exam - General 1994 Musculoskeletal digits and nails MCPs: nodule 10/01/2018 None Full Exam - General 1994 Musculoskeletal digits and nails MCPs: bony enlargement 10/01/2018 None Full Exam - General 1994 Musculoskeletal spine, ribs and pelvis Posture: lordosis 10/01/2018 ttp over upper back - mus cles on back and over thoracici spine Full Exam - General 1994 Musculoskeletal head and neck Overall: head atraumatic 10/01/2018 None Full Exam - General 1994 Musculoskeletal head and neck Overall: cervical spine benign 10/01/2018 None Full Exam - General 1994 Neurologic deep tendon reflexes Overall: deep tendon reflexes intact 10/01/2018 None Full Exam - General 1994 Neurologic cranial nerves Overall: crainial nerves 2 - 12 grossly intact 10/01/2018 None Full Exam - General 1994 Psychiatric orientation/consciousness Overall: oriented to person, place and time 10/01/2018 None Full Exam - General 1994 Psychiatric mood and affect Overall: normal mood and affect 10/01/2018 None Full Exam - General 1994 Constitutional general appearance Development: well developed 06/12/2018 None Full Exam - General 1994 Constitutional general appearance Development: appears stated age 0406/12/2018 None Full Exam - General 1994 Constitutional general appearance Hygiene/Attention to Grooming: good hygiene 06/12/2018 None Full Exam - General 1994 Eyes conjunctiva/eyelids Overall: conjunctiva clear 06/12/2018 None Full Exam - General 1994 Eyes conjunctiva/eyelids Overall: cornea clear 06/12/2018 None Full Exam - General 1994 Eyes conjunctiva/eyelids Overall: eyelids normal 06/12/2018 None Full Exam - General 1994 Eyes pupils and irises Overall: pupils equal, round, reactive to light and accomodation 06/12/2018 None Full Exam - General 1994 Ears/Nose/Throat otoscopic exam Overall: external auditory canals clear 06/12/2018 None Full Exam - General 1994 Ears/Nose/Throat otoscopic exam Overall: tympanic membranes clear 06/12/2018 None Full Exam - General 1994 Ears/Nose/Throat lips/teeth/gingiva Overall: benign lips 06/12/2018 None Full Exam - General 1994 Ears/Nose/Throat lips/teeth/gingiva Overall: normal dentition 06/12/2018 None Full Exam - General 1994 Ears/Nose/Throat oral cavity/pharynx/larynx Overall: oral mucosa clear 06/12/2018 None Full Exam - General 1994 Ears/Nose/Throat oral cavity/pharynx/larynx Overall: oropharyngeal mucosa clear 06/12/2018 None Full Exam - General 1994 Ears/Nose/Throat oral cavity/pharynx/larynx Overall: hypopharynx benign 06/12/2018 None Full Exam - General 1994 Ears/Nose/Throat oral cavity/pharynx/larynx Overall: no masses 06/12/2018 None Full Exam - General 1994 Respiratory auscultation Overall: breath sounds clear bilaterally 06/12/2018 None Full Exam - General 1994 Respiratory respiratory effort/rhythm Overall: no retractions 06/12/2018 None Full Exam - General 1994 Respiratory respiratory effort/rhythm Overall: normal rate 06/12/2018 None Full Exam - General 1994 Cardiovascular extremities Overall: no clubbing 06/12/2018 None Full Exam - General 1994 Cardiovascular auscultation of heart Overall: regular rate 06/12/2018 None Full Exam - General 1994 Cardiovascular auscultation of heart Overall: normal heart sounds 06/12/2018 None Full Exam - General 1994 Abdomen abdominal exam Overall: no tenderness 06/12/2018 None Full Exam - General 1994 Lymphatic neck nodes Overall: anterior cervical chain benign 06/12/2018 None Full Exam - General 1994 Lymphatic neck nodes Overall: posterior cervical chain benign 06/12/2018 None Full Exam - General 1994 Musculoskeletal digits and nails DIPs: first 06/12/2018 None Full Exam - General 1994 Musculoskeletal digits and nails DIPs: second 06/12/2018 None Full Exam - General 1994 Musculoskeletal digits and nails DIPs: third 06/12/2018 None Full Exam - General 1994 Musculoskeletal digits and nails DIPs: fourth 06/12/2018 None Full Exam - General 1994 Musculoskeletal digits and nails DIPs: fifth 06/12/2018 None Full Exam - General 1994 Musculoskeletal digits and nails DIPs: tender 06/12/2018 None Full Exam - General 1994 Musculoskeletal digits and nails DIPs: swelling 06/12/2018 None Full Exam - General 1994 Musculoskeletal digits and nails PIPs: first 06/12/2018 None Full Exam - General 1994 Musculoskeletal digits and nails PIPs: second 06/12/2018 None Full Exam - General 1994 Musculoskeletal digits and nails PIPs: third 06/12/2018 None Full Exam - General 1994 Musculoskeletal digits and nails PIPs: fourth 06/12/2018 None Full Exam - General 1994 Musculoskeletal digits and nails PIPs: fifth 06/12/2018 None Full Exam - General 1994 Musculoskeletal digits and nails PIPs: swelling 06/12/2018 None Full Exam - General 1994 Musculoskeletal digits and nails PIPs: deformity 06/12/2018 None Full Exam - General 1994 Musculoskeletal digits and nails PIPs: bony enlargement 06/12/2018 None Full Exam - General 1994 Musculoskeletal digits and nails MCPs: first 06/12/2018 None Full Exam - General 1994 Musculoskeletal digits and nails MCPs: second 06/12/2018 None Full Exam - General 1994 Musculoskeletal digits and nails MCPs: third 06/12/2018 None Full Exam - General 1994 Musculoskeletal digits and nails MCPs: swelling 06/12/2018 None Full Exam - General 1994 Musculoskeletal digits and nails MCPs: nodule 06/12/2018 None Full Exam - General 1994 Musculoskeletal digits and nails MCPs: bony enlargement 06/12/2018 None Full Exam - General 1994 Musculoskeletal spine, ribs and pelvis Posture: lordosis 06/12/2018 ttp over upper back - mus cles on back and over thoracici spine Full Exam - General 1994 Musculoskeletal head and neck Overall: head atraumatic 06/12/2018 None Full Exam - General 1994 Musculoskeletal head and neck Overall: cervical spine benign 06/12/2018 None Full Exam - General 1994 Neurologic deep tendon reflexes Overall: deep tendon reflexes intact 06/12/2018 None Full Exam - General 1994 Neurologic cranial nerves Overall: crainial nerves 2 - 12 grossly intact 06/12/2018 None Full Exam - General 1994 Psychiatric orientation/consciousness Overall: oriented to person, place and time 06/12/2018 None Full Exam - General 1994 Psychiatric mood and affect Overall: normal mood and affect 06/12/2018 None Full Exam - General 1994 Constitutional general appearance Development: well developed 05/08/2018 None Full Exam - General 1994 Constitutional general appearance Development: appears stated age 0305/08/2018 None Full Exam - General 1994 Constitutional general appearance Hygiene/Attention to Grooming: good hygiene 05/08/2018 None Full Exam - General 1994 Eyes conjunctiva/eyelids Overall: conjunctiva clear 05/08/2018 None Full Exam - General 1994 Eyes conjunctiva/eyelids Overall: cornea clear 05/08/2018 None Full Exam - General 1994 Eyes conjunctiva/eyelids Overall: eyelids normal 05/08/2018 None Full Exam - General 1994 Eyes pupils and irises Overall: pupils equal, round, reactive to light and accomodation 05/08/2018 None Full Exam - General 1994 Ears/Nose/Throat otoscopic exam Overall: external auditory canals clear 05/08/2018 None Full Exam - General 1994 Ears/Nose/Throat otoscopic exam Overall: tympanic membranes clear 05/08/2018 None Full Exam - General 1994 Ears/Nose/Throat lips/teeth/gingiva Overall: benign lips 05/08/2018 None Full Exam - General 1994 Ears/Nose/Throat lips/teeth/gingiva Overall: normal dentition 05/08/2018 None Full Exam - General 1994 Ears/Nose/Throat oral cavity/pharynx/larynx Overall: oral mucosa clear 05/08/2018 None Full Exam - General 1994 Ears/Nose/Throat oral cavity/pharynx/larynx Overall: oropharyngeal mucosa clear 05/08/2018 None Full Exam - General 1994 Ears/Nose/Throat oral cavity/pharynx/larynx Overall: hypopharynx benign 05/08/2018 None Full Exam - General 1994 Ears/Nose/Throat oral cavity/pharynx/larynx Overall: no masses 05/08/2018 None Full Exam - General 1994 Respiratory auscultation Overall: breath sounds clear bilaterally 05/08/2018 None Full Exam - General 1994 Respiratory respiratory effort/rhythm Overall: no retractions 05/08/2018 None Full Exam - General 1994 Respiratory respiratory effort/rhythm Overall: normal rate 05/08/2018 None Full Exam - General 1994 Cardiovascular extremities Overall: no clubbing 05/08/2018 None Full Exam - General 1994 Cardiovascular auscultation of heart Overall: regular rate 05/08/2018 None Full Exam - General 1994 Cardiovascular auscultation of heart Overall: normal heart sounds 05/08/2018 None Full Exam - General 1994 Abdomen abdominal exam Overall: no tenderness 05/08/2018 None Full Exam - General 1994 Lymphatic neck nodes Overall: anterior cervical chain benign 05/08/2018 None Full Exam - General 1994 Lymphatic neck nodes Overall: posterior cervical chain benign 05/08/2018 None Full Exam - General 1994 Musculoskeletal digits and nails DIPs: first 05/08/2018 None Full Exam - General 1994 Musculoskeletal digits and nails DIPs: second 05/08/2018 None Full Exam - General 1994 Musculoskeletal digits and nails DIPs: third 05/08/2018 None Full Exam - General 1994 Musculoskeletal digits and nails DIPs: fourth 05/08/2018 None Full Exam - General 1994 Musculoskeletal digits and nails DIPs: fifth 05/08/2018 None Full Exam - General 1994 Musculoskeletal digits and nails DIPs: tender 05/08/2018 None Full Exam - General 1994 Musculoskeletal digits and nails DIPs: swelling 05/08/2018 None Full Exam - General 1995 Musculoskeletal digits and nails PIPs: first 05/08/2018 None Full Exam - General 1995 Musculoskeletal digits and nails PIPs: second 05/08/2018 None Full Exam - General 1995 Musculoskeletal digits and nails PIPs: third 05/08/2018 None Full Exam - General 1994 Musculoskeletal digits and nails PIPs: fourth 05/08/2018 None Full Exam - General 1994 Musculoskeletal digits and nails PIPs: fifth 05/08/2018 None Full Exam - General 1994 Musculoskeletal digits and nails PIPs: swelling 05/08/2018 None Full Exam - General 1994 Musculoskeletal digits and nails PIPs: deformity 05/08/2018 None Full Exam - General 1994 Musculoskeletal digits and nails PIPs: bony enlargement 05/08/2018 None Full Exam - General 1994 Musculoskeletal digits and nails MCPs: first 05/08/2018 None Full Exam - General 1994 Musculoskeletal digits and nails MCPs: second 05/08/2018 None Full Exam - General 1994 Musculoskeletal digits and nails MCPs: third 05/08/2018 None Full Exam - General 1994 Musculoskeletal digits and nails MCPs: swelling 05/08/2018 None Full Exam - General 1994 Musculoskeletal digits and nails MCPs: nodule 05/08/2018 None Full Exam - General 1994 Musculoskeletal digits and nails MCPs: bony enlargement 05/08/2018 None Full Exam - General 1994 Musculoskeletal spine, ribs and pelvis Posture: lordosis 05/08/2018 ttp over upper back - mus cles on back and over thoracici spine Full Exam - General 1994 Musculoskeletal head and neck Overall: head atraumatic 05/08/2018 None Full Exam - General 1994 Musculoskeletal head and neck Overall: cervical spine benign 05/08/2018 None Full Exam - General 1994 Neurologic deep tendon reflexes Overall: deep tendon reflexes intact 05/08/2018 None Full Exam - General 1994 Neurologic cranial nerves Overall: crainial nerves 2 - 12 grossly intact 05/08/2018 None Full Exam - General 1994 Psychiatric orientation/consciousness Overall: oriented to person, place and time 05/08/2018 None Full Exam - General 1994 Psychiatric mood and affect Overall: normal mood and affect 05/08/2018 None Full Exam - General 1994 Constitutional general appearance Development: well developed 03/27/2018 None Full Exam - General 1994 Constitutional general appearance Development: appears stated age 0203/27/2018 None Full Exam - General 1994 Constitutional general appearance Hygiene/Attention to Grooming: good hygiene 03/27/2018 None Full Exam - General 1994 Eyes conjunctiva/eyelids Overall: conjunctiva clear 03/27/2018 None Full Exam - General 1994 Eyes conjunctiva/eyelids Overall: cornea clear 03/27/2018 None Full Exam - General 1994 Eyes conjunctiva/eyelids Overall: eyelids normal 03/27/2018 None Full Exam - General 1994 Eyes pupils and irises Overall: pupils equal, round, reactive to light and accomodation 03/27/2018 None Full Exam - General 1995 Ears/Nose/Throat otoscopic exam Overall: external auditory canals clear 03/27/2018 None Full Exam - General 1995 Ears/Nose/Throat otoscopic exam Overall: tympanic membranes clear 03/27/2018 None Full Exam - General 1994 Ears/Nose/Throat lips/teeth/gingiva Overall: benign lips 03/27/2018 None Full Exam - General 1995 Ears/Nose/Throat lips/teeth/gingiva Overall: normal dentition 03/27/2018 None Full Exam - General 1994 Ears/Nose/Throat oral cavity/pharynx/larynx Overall: oral mucosa clear 03/27/2018 None Full Exam - General 1995 Ears/Nose/Throat oral cavity/pharynx/larynx Overall: oropharyngeal mucosa clear 03/27/2018 None Full Exam - General 1995 Ears/Nose/Throat oral cavity/pharynx/larynx Overall: hypopharynx benign 03/27/2018 None Full Exam - General 1994 Ears/Nose/Throat oral cavity/pharynx/larynx Overall: no masses 03/27/2018 None Full Exam - General 1994 Respiratory auscultation Overall: breath sounds clear bilaterally 03/27/2018 None Full Exam - General 1994 Respiratory respiratory effort/rhythm Overall: no retractions 03/27/2018 None Full Exam - General 1994 Respiratory respiratory effort/rhythm Overall: normal rate 03/27/2018 None Full Exam - General 1994 Cardiovascular extremities Overall: no clubbing 03/27/2018 None Full Exam - General 1994 Cardiovascular auscultation of heart Overall: regular rate 03/27/2018 None Full Exam - General 1994 Cardiovascular auscultation of heart Overall: normal heart sounds 03/27/2018 None Full Exam - General 1994 Abdomen abdominal exam Overall: no tenderness 03/27/2018 None Full Exam - General 1994 Lymphatic neck nodes Overall: anterior cervical chain benign 03/27/2018 None Full Exam - General 1994 Lymphatic neck nodes Overall: posterior cervical chain benign 03/27/2018 None Full Exam - General 1994 Musculoskeletal digits and nails DIPs: first 03/27/2018 None Full Exam - General 1994 Musculoskeletal digits and nails DIPs: second 03/27/2018 None Full Exam - General 1994 Musculoskeletal digits and nails DIPs: third 03/27/2018 None Full Exam - General 1994 Musculoskeletal digits and nails DIPs: fourth 03/27/2018 None Full Exam - General 1994 Musculoskeletal digits and nails DIPs: fifth 03/27/2018 None Full Exam - General 1994 Musculoskeletal digits and nails DIPs: tender 03/27/2018 None Full Exam - General 1994 Musculoskeletal digits and nails DIPs: swelling 03/27/2018 None Full Exam - General 1994 Musculoskeletal digits and nails PIPs: first 03/27/2018 None Full Exam - General 1994 Musculoskeletal digits and nails PIPs: second 03/27/2018 None Full Exam - General 1994 Musculoskeletal digits and nails PIPs: third 03/27/2018 None Full Exam - General 1994 Musculoskeletal digits and nails PIPs: fourth 03/27/2018 None Full Exam - General 1994 Musculoskeletal digits and nails PIPs: fifth 03/27/2018 None Full Exam - General 1994 Musculoskeletal digits and nails PIPs: swelling 03/27/2018 None Full Exam - General 1994 Musculoskeletal digits and nails PIPs: deformity 03/27/2018 None Full Exam - General 1994 Musculoskeletal digits and nails PIPs: bony enlargement 03/27/2018 None Full Exam - General 1994 Musculoskeletal digits and nails MCPs: first 03/27/2018 None Full Exam - General 1994 Musculoskeletal digits and nails MCPs: second 03/27/2018 None Full Exam - General 1994 Musculoskeletal digits and nails MCPs: third 03/27/2018 None Full Exam - General 1994 Musculoskeletal digits and nails MCPs: swelling 03/27/2018 None Full Exam - General 1994 Musculoskeletal digits and nails MCPs: nodule 03/27/2018 None Full Exam - General 1994 Musculoskeletal digits and nails MCPs: bony enlargement 03/27/2018 None Full Exam - General 1994 Musculoskeletal spine, ribs and pelvis Posture: lordosis 03/27/2018 ttp over upper back - mus cles on back and over thoracici spine Full Exam - General 1994 Musculoskeletal head and neck Overall: head atraumatic 03/27/2018 None Full Exam - General 1994 Musculoskeletal head and neck Overall: cervical spine benign 03/27/2018 None Full Exam - General 1994 Neurologic deep tendon reflexes Overall: deep tendon reflexes intact 03/27/2018 None Full Exam - General 1994 Neurologic cranial nerves Overall: crainial nerves 2 - 12 grossly intact 03/27/2018 None Full Exam - General 1994 Psychiatric orientation/consciousness Overall: oriented to person, place and time 03/27/2018 None Full Exam - General 1994 Psychiatric mood and affect Overall: normal mood and affect 03/27/2018 None Full Exam - General 1994 Constitutional general appearance Development: well developed 01/02/2018 None Full Exam - General 1994 Constitutional general appearance Development: appears stated age 1101/02/2018 None Full Exam - General 1994 Constitutional general appearance Hygiene/Attention to Grooming: good hygiene 01/02/2018 None Full Exam - General 1994 Eyes conjunctiva/eyelids Overall: conjunctiva clear 01/02/2018 None Full Exam - General 1994 Eyes conjunctiva/eyelids Overall: cornea clear 01/02/2018 None Full Exam - General 1994 Eyes conjunctiva/eyelids Overall: eyelids normal 01/02/2018 None Full Exam [...] None Full Exam - General 1994 Eyes conjunctiva/eyelids Overall: conjunctiva clear 12/26/2017 None Full Exam - General 1994 Eyes conjunctiva/eyelids Overall: cornea clear 12/26/2017 None Full Exam - General 1994 Eyes conjunctiva/eyelids Overall: eyelids normal 12/26/2017 None Full Exam [...] lordosis 12/26/2017 ttp over upper back - mus cles on back and over thoracici spine Full Exam - General 1994 Constitutional general appearance Development: well developed 10/17/2017 None Full Exam - General 1994 Constitutional general appearance Development: appears stated age 0810/17/2017 None Full Exam - General 1994 Constitutional general appearance Hygiene/Attention to Grooming: good hygiene 10/17/2017 None Full Exam - General 1994 Eyes conjunctiva/eyelids Overall: conjunctiva clear 10/17/2017 None Full Exam - General 1994 Eyes conjunctiva/eyelids Overall: cornea clear 10/17/2017 None Full Exam - General 1994 Eyes conjunctiva/eyelids Overall: eyelids normal 10/17/2017 None Full Exam [...] None Full Exam - General 1994 Eyes conjunctiva/eyelids Overall: conjunctiva clear 09/27/2017 None Full Exam - General 1994 Eyes conjunctiva/eyelids Overall: cornea clear 09/27/2017 None Full Exam - General 1994 Eyes conjunctiva/eyelids Overall: eyelids normal 09/27/2017 None Full Exam [...] enlargement 09/27/2017 None Full Exam - General 1995 Musculoskeletal digits and nails MCPs: first 09/27/2017 [...] None Full Exam - General 1994 Eyes conjunctiva/eyelids Overall: conjunctiva clear 03/24/2017 None Full Exam - General 1994 Eyes conjunctiva/eyelids Overall: cornea clear 03/24/2017 None Full Exam - General 1994 Eyes conjunctiva/eyelids Overall: eyelids normal 03/24/2017 None Full Exam [...] 1995 Musculoskeletal digits and nails PIPs: fifth 03/24/2017 [...] None Full Exam - General 1994 Eyes conjunctiva/eyelids Overall: conjunctiva clear 08/30/2016 None Full Exam - General 1994 Eyes conjunctiva/eyelids Overall: cornea clear 08/30/2016 None Full Exam - General 1994 Eyes conjunctiva/eyelids Overall: eyelids normal 08/30/2016 None Full Exam [...] None Full Exam - General 1994 Eyes conjunctiva/eyelids Overall: conjunctiva clear 08/08/2016 None Full Exam - General 1994 Eyes conjunctiva/eyelids Overall: cornea clear 08/08/2016 None Full Exam - General 1994 Eyes conjunctiva/eyelids Overall: eyelids normal 08/08/2016 None Full Exam [...] affect 08/08/2016 None Full Exam - Genitourinary/Female Con stitutional general appearance Overall: well nourished 06/27/2016 None Full Exam - Genitourinary/Female Con stitutional general appearance Overall: well developed 06/27/2016 None Full Exam - Genitourinary/Female Con stitutional general appearance Overall: in no acute distress 06/27/2016 None Full Exam - Genitourinary/Female Eyes conjunctiva/eyelids Overall: conjunctiva clear 06/27/2016 None Full Exam - Genitourinary/Female Eyes conjunctiva/eyelids Overall: eyelids normal 06/27/2016 None Full Exam - Genitourinary/Female Ear s/Nose/Throat lips/teeth/gingiva Overall: benign lips 06/27/2016 None Full Exam - Genitourinary/Female Ear s/Nose/Throat oral cavity/pharynx/larynx Overall: oral mucosa clear 06/27/2016 None Full Exam - Genitourinary/Female Res piratory respiratory effort/rhythm Overall: no retractions 06/27/2016 None Full Exam - Genitourinary/Female Res piratory respiratory effort/rhythm Overall: normal rate 06/27/2016 None Full Exam - Genitourinary/Female Jodie st/Breast breast inspection and palpation Overall: normal chest shape 06/27/2016 None Full Exam - Genitourinary/Female Mus culoskeletal gait and station Gait: a bnormal stance 06/27/2016 walking boot on Left foot Full Exam - Genitourinary/Female Psy chiatric orientation/consciousness Overall: oriented to person, place and time 06/27/2016 None Full Exam - Genitourinary/Female Psy chiatric appearance Overall: well -groomed, good eye contact 06/27/2016 None Full Exam [...] None Full Exam - Orthopedics MS: left low er extremity insp & palp - LLE Foot: swelling 05/23/2016 left 1st and 2nd toes to base of 1st metatarsel Full Exam - Orthopedics MS: left low er extremity range of motion - LLE Foot: decreased extension of toes 05/23/2016 None Full Exam - Orthopedics MS: left low er extremity range of motion - LLE Foot: decreased flexion of toes 05/23/2016 None Full Exam - Orthopedics MS: left low er extremity range of motion - LLE Foot: pain with extension of toes 05/23/2016 None Full Exam - Orthopedics MS: left low er extremity range of motion - LLE Foot: pain with flexion of toes 05/23/2016 None Full Exam - Orthopedics MS: left low er extremity range of motion - LLE Foot: unable to fan toes 05/23/2016 None Full Exam - Orthopedics MS: left low er extremity stability - LLE Overall: no subluxation, dislocation 05/23/2016 None Full Exam - Genitourinary/Female Con stitutional general appearance Overall: well nourished 04/18/2016 None Full Exam - Genitourinary/Female Con stitutional general appearance Overall: well developed 04/18/2016 None Full Exam - Genitourinary/Female Con stitutional general appearance Overall: in no acute distress 04/18/2016 None Full Exam - Genitourinary/Female Eyes conjunctiva/eyelids Overall: conjunctiva clear 04/18/2016 None Full Exam - Genitourinary/Female Eyes conjunctiva/eyelids Overall: eyelids normal 04/18/2016 None Full Exam - Genitourinary/Female Ear s/Nose/Throat lips/teeth/gingiva Overall: benign lips 04/18/2016 None Full Exam - Genitourinary/Female Ear s/Nose/Throat oral cavity/pharynx/larynx Overall: oral mucosa clear 04/18/2016 None Full Exam - Genitourinary/Female Res piratory auscultation Overall: br eath sounds clear bilaterally 04/18/2016 None Full Exam - Genitourinary/Female Res piratory respiratory effort/rhythm Overall: no retractions 04/18/2016 None Full Exam - Genitourinary/Female Res piratory respiratory effort/rhythm Overall: normal rate 04/18/2016 None Full Exam - Genitourinary/Female Car diovascular auscultation of heart Overall: regular rate 04/18/2016 None Full Exam - Genitourinary/Female Car diovascular auscultation of heart Overall: normal heart sounds 04/18/2016 None Full Exam - Genitourinary/Female Neurologi c mood and affect Overall: normal mood 04/18/2016 None Full Exam - Genitourinary/Female Neurologi c mood and affect Overall: normal affect 04/18/2016 None Full Exam - Genitourinary/Female Neurologi c orientation Overall: oriented to person, place and time 04/18/2016 None Full Exam - Genitourinary/Female Psy chiatric appearance Overall: well -groomed, good eye contact 04/18/2016 None Full Exam - Genitourinary/Female Psy chiatric orientation/consciousness Overall: oriented to person, place and time 04/18/2016 None Full Exam - Genitourinary/Female Psy chiatric speech Overall: normal q uality, no aphasia 04/18/2016 None Full Exam - Genitourinary/Female Psy chiatric speech Overall: normal q uality, quantity, rate 04/18/2016 None Full Exam - Genitourinary/Female Con stitutional general appearance Overall: well nourished 03/07/2016 None Full Exam - Genitourinary/Female Con stitutional general appearance Overall: well developed 03/07/2016 None Full Exam - Genitourinary/Female Con stitutional general appearance Overall: in no acute distress 03/07/2016 None Full Exam - Genitourinary/Female Eyes conjunctiva/eyelids Overall: conjunctiva clear 03/07/2016 None Full Exam - Genitourinary/Female Eyes conjunctiva/eyelids Overall: eyelids normal 03/07/2016 None Full Exam - Genitourinary/Female Ear s/Nose/Throat lips/teeth/gingiva Overall: benign lips 03/07/2016 None Full Exam - Genitourinary/Female Ear s/Nose/Throat oral cavity/pharynx/larynx Overall: oral mucosa clear 03/07/2016 None Full Exam - Genitourinary/Female Res piratory auscultation Overall: br eath sounds clear bilaterally 03/07/2016 None Full Exam - Genitourinary/Female Res piratory respiratory effort/rhythm Overall: no retractions 03/07/2016 None Full Exam - Genitourinary/Female Res piratory respiratory effort/rhythm Overall: normal rate 03/07/2016 None Full Exam - Genitourinary/Female Car diovascular auscultation of heart Overall: regular rate 03/07/2016 None Full Exam - Genitourinary/Female Car diovascular auscultation of heart Overall: normal heart sounds 03/07/2016 None Full Exam - Genitourinary/Female Neurologi c mood and affect Overall: normal affect 03/07/2016 None Full Exam - Genitourinary/Female Neurologi c mood and affect Overall: normal mood 03/07/2016 None Full Exam - Genitourinary/Female Neurologi c orientation Overall: oriented to person, place and time 03/07/2016 None Full Exam - Genitourinary/Female Psy chiatric appearance Overall: well -groomed, good eye contact 03/07/2016 None Full Exam - General 1994 Constitutional general appearance Development: well developed 02/23/2016 None Full Exam - General 1994 Constitutional general appearance Development: appears stated age 0102/23/2016 None Full Exam - General 1994 Constitutional general appearance Hygiene/Attention to Grooming: good hygiene 02/23/2016 None Full Exam - General 1994 Eyes conjunctiva/eyelids Overall: conjunctiva clear 02/23/2016 None Full Exam - General 1994 Eyes conjunctiva/eyelids Overall: cornea clear 02/23/2016 None Full Exam - General 1994 Eyes conjunctiva/eyelids Overall: eyelids normal 02/23/2016 None Full Exam [...] benign 02/23/2016 None Full Exam - General 1995 Ears/Nose/Throat oral cavity/pharynx/larynx Overall: no masses 02/23/2016 [...] None Full Exam - General 1994 Eyes conjunctiva/eyelids Overall: conjunctiva clear 09/15/2015 None Full Exam - General 1994 Eyes conjunctiva/eyelids Overall: cornea clear 09/15/2015 None Full Exam - General 1994 Eyes conjunctiva/eyelids Overall: eyelids normal 09/15/2015 None Full Exam [...] None Full Exam - General 1994 Eyes conjunctiva/eyelids Overall: conjunctiva clear 05/26/2015 None Full Exam - General 1994 Eyes conjunctiva/eyelids Overall: cornea clear 05/26/2015 None Full Exam - General 1994 Eyes conjunctiva/eyelids Overall: eyelids normal 05/26/2015 None Full Exam [...] None Full Exam - General 1994 Eyes conjunctiva/eyelids Overall: conjunctiva clear 04/09/2015 None Full Exam - General 1994 Eyes conjunctiva/eyelids Overall: cornea clear 04/09/2015 None Full Exam - General 1994 Eyes conjunctiva/eyelids Overall: eyelids normal 04/09/2015 None Full Exam [...] None Full Exam - General 1994 Eyes conjunctiva/eyelids Overall: conjunctiva clear 03/30/2015 None Full Exam - General 1994 Eyes conjunctiva/eyelids Overall: cornea clear 03/30/2015 None Full Exam - General 1994 Eyes conjunctiva/eyelids Overall: eyelids normal 03/30/2015 None Full Exam [...] None Full Exam - General 1994 Eyes conjunctiva/eyelids Overall: conjunctiva clear 03/10/2015 None Full Exam - General 1994 Eyes conjunctiva/eyelids Overall: cornea clear 03/10/2015 None Full Exam - General 1994 Eyes conjunctiva/eyelids Overall: eyelids normal 03/10/2015 None Full Exam [...] None Full Exam - Orthopedics MS: left low er extremity insp & palp - LLE Overall: normal appearance of leg 12/16/2014 None Full Exam - Orthopedics MS: left low er extremity insp & palp - LLE Overall: no crepitus or defects 12/16/2014 None Full Exam - Orthopedics MS: left low er extremity insp & palp - LLE Thigh: tenderness 12/16/2014 over iliotibial band Full Exam - Orthopedics MS: left low er extremity insp & palp - LLE Knee: normal appearance 12/16/2014 None Full Exam - Orthopedics MS: left low er extremity insp & palp - LLE Lower leg: normal appearance 12/16/2014 None Full Exam - Orthopedics MS: left low er extremity insp & palp - LLE Lower leg: normal on palpation 12/16/2014 None Full Exam - Orthopedics MS: left low er extremity range of motion - LLE Overall: full range of motion in knee 12/16/2014 None Full Exam - Orthopedics MS: left low er extremity range of motion - LLE Overall: full range of motion in ankle 12/16/2014 None Full Exam - Orthopedics MS: left low er extremity range of motion - LLE Overall: full range of motion in toes 12/16/2014 None Full Exam - Orthopedics MS: left low er extremity stability - LLE Overall: knee, ankle and foot stable 12/16/2014 None Full Exam - Orthopedics Neurological deep tendon reflex/nerve stretch Overall: deep tendon reflexes intact 12/16/2014 None Full Exam - Orthopedics MS: spine/ri b/pelvis insp & palp - S/R/P Lumbar spine ins pection: normal lumbar spine alignment 12/16/2014 None Full Exam - Orthopedics MS: spine/ri b/pelvis insp & palp - S/R/P Lumbar spine palpation : normal spinous processes 12/16/2014 None Full Exam - Orthopedics MS: spine/ri b/pelvis insp & palp - S/R/P Sacroiliac palpation: left sacroiliac joint tenderness 12/16/2014 None Full Exam - Orthopedics MS: spine/ri b/pelvis insp & palp - S/R/P Hip palpation: left trochanter tenderness 12/16/2014 None Full Exam - Orthopedics MS: spine/ri b/pelvis stability - S/R/P Overall: no dislocation, subluxation, or laxity 12/16/2014 None Full Exam - Orthopedics MS: spine/ri b/pelvis strength & tone - S/R/P Overall: full [...] None Full Exam - General 1994 Eyes conjunctiva/eyelids Overall: conjunctiva clear 11/13/2014 None Full Exam - General 1994 Eyes conjunctiva/eyelids Overall: cornea clear 11/13/2014 None Full Exam - General 1994 Eyes conjunctiva/eyelids Overall: eyelids normal 11/13/2014 None Full Exam [...] None Full Exam - General 1994 Eyes conjunctiva/eyelids Overall: conjunctiva clear 07/10/2014 None Full Exam - General 1994 Eyes conjunctiva/eyelids Overall: cornea clear 07/10/2014 None Full Exam - General 1994 Eyes conjunctiva/eyelids Overall: eyelids normal 07/10/2014 None Full Exam [...] Procedures Procedure Codes Date PPPS, SUBSEQ VISIT CPT- 4: G0439 01/02/2018 TRIAMCINOLONE ACET I [place] NOS CPT-4: J3301 08/08/2016 PRESCRIP TRANSMIT A ERX SY CPT-4: G8553 08/08/2016 PRESCRIP TRANSMIT A ERX SY CPT-4: G8553 04/18/2016 TRIAMCINOLONE ACET I [place] NOS CPT-4: J3301 05/26/2015 PRESCRIP TRANSMIT A ERX SY CPT-4: G8553 05/26/2015 PRESCRIP TRANSMIT A ERX SY CPT-4: G8553 04/09/2015 INITIAL PREVENTIVE EXAM CPT-4: G0402 03/30/2015 TRIAMCINOLONE ACET I [place] NOS CPT-4: J3301 12/09/2014 PRESCRIP TRANSMIT A ERX SY CPT-4: G8553 12/09/2014 PRESCRIP TRANSMIT A ERX SY CPT-4: G8553 11/13/2014 Vital Signs Date Vital 10/01/2018 Blood Pressure 1: 146/80 Code: 8480-6 BMI: 31.9 Code: 06436-7 Heart Rate 1: 80 bpm Height: 5'4" SpO2: 97% Weight: 186 lbs 06/12/2018 Blood Pressure 1: 124/74 Code: 8480-6 BMI: 31.6 Code: 73881-9 Heart Rate 1: 55 bpm Height: 5'4" SpO2: 99% Weight: 184 lbs 05/08/2018 Blood Pressure 1: 148/84 Code: 8480-6 BMI: 31.8 Code: 32836-3 Heart Rate 1: 60 bpm Height: 5'4" SpO2: 96% Weight: 185 lbs 03/27/2018 Blood Pressure 1: 142/84 Code: 8480-6 BMI: 31.2 Code: 10946-6 Heart Rate 1: 75 bpm Height: 5'4" SpO2: 97% Weight: 182 lbs 01/02/2018 Blood Pressure 1: 136/68 Code: 8480-6 BMI: 32.4 Code: 97488-3 Heart Rate 1: 80 bpm Height: 5'4" SpO2: 99% Waist Measure (cm): 104 cm Weight: 189 lbs 12/26/2017 Blood Pressure 1: 138/72 Code: 8480-6 BMI: 31.4 Code: 90249-6 Heart Rate 1: 72 bpm Height: 5'4" SpO2: 96% Weight: 183 lbs 10/17/2017 Blood Pressure 1: 156 Code: 8480-6 BMI: 31.4 Code: 00458-1 Heart Rate 1: 81 bpm Height: 5'4" SpO2: 98% Temperature: 36.5 (C ) / 97.7 (F) Weight: 183 lbs 09/27/2017 Blood Pressure 1: 140/82 Code: 8480-6 BMI: 32.1 Code: 31986-3 Heart Rate 1: 82 bpm Height: 5'4" SpO2: 98% Weight: 187 lbs 07/31/2017 Blood Pressure 1: 138/82 Code: 8480-6 Heart Rate 1: 87 bpm SpO2: 99% 03/24/2017 Blood Pressure 1: 146/86 Code: 8480-6 BMI: 31.8 Code: 28821-0 Heart Rate 1: 79 bpm Height: 5'4" SpO2: 96% Temperature: 36.4 (C ) / 97.5 (F) Weight: 185 lbs 08/30/2016 Blood Pressure 1: 142/88 Code: 8480-6 BMI: 31.6 Code: 32107-3 Heart Rate 1: 80 bpm Height: 5'4" SpO2: 93% Weight: 184 lbs 08/08/2016 Blood Pressure 1: 142/76 Code: 8480-6 BMI: 29.9 Code: 89919-9 Heart Rate 1: 80 bpm Height: 5'4" SpO2: 94% Weight: 174 lbs 06/27/2016 Blood Pressure 1: 156/72 Code: 8480-6 BMI: 30.6 Code: 85612-2 Heart Rate 1: 78 bpm Height: 5'4" SpO2: 95% Weight: 178 lbs 05/23/2016 Blood Pressure 1: 146/84 Code: 8480-6 Heart Rate 1: 66 bpm Height: 5'4" SpO2: 94% 04/18/2016 Blood Pressure 1: 148/84 Code: 8480-6 BMI: 30.2 Code: 58004-4 Heart Rate 1: 81 bpm Height: 5'4" SpO2: 97% Weight: 176 lbs 03/07/2016 Blood Pressure 1: 130/78 Code: 8480-6 BMI: 30.0 Code: 07032-6 Heart Rate 1: 85 bpm Height: 5'4" SpO2: 96% Weight: 175 lbs 02/23/2016 Blood Pressure 1: 140/78 Code: 8480-6 BMI: 29.7 Code: 00013-9 Heart Rate 1: 74 bpm Height: 5'4" SpO2: 95% Weight: 173 lbs 09/15/2015 Blood Pressure 1: 140/88 Code: 8480-6 BMI: 29.4 Code: 59952-2 Heart Rate 1: 81 bpm Height: 5'4" SpO2: 97% Weight: 171 lbs 8 oz 05/26/2015 Blood Pressure 1: 150/80 Code: 8480-6 BMI: 31.6 Code: 89474-2 Heart Rate 1: 70 bpm Height: 5'4" SpO2: 96% Weight: 184 lbs 04/09/2015 Blood Pressure 1: 136/74 Code: 8480-6 BMI: 31.4 Code: 89826-2 Heart Rate 1: 91 bpm Height: 5'4" SpO2: 94% Weight: 183 lbs 03/30/2015 Blood Pressure 1: 130/72 Code: 8480-6 BMI: 30.9 Code: 32755-2 Heart Rate 1: 80 bpm Height: 5'4" SpO2: 97% Waist Measure (cm): 102 cm Weight: 180 lbs 03/10/2015 Blood Pressure 1: 152/80 Code: 8480-6 BMI: 31.1 Code: 36399-8 Heart Rate 1: 66 bpm Height: 5'4" SpO2: 98% Weight: 181 lbs 12/16/2014 Blood Pressure 1: 132/88 Code: 8480-6 Blood Pressure 1: 132/88 Code: 8480-6 Heart Rate 1: 88 bpm SpO2: 98% Weight: 183 lbs 12/09/2014 Blood Pressure 1: 140/82 Code: 8480-6 BMI: 31.2 Code: 28217-3 Heart Rate 1: 105 bpm Height: 5'4" SpO2: 93% Weight: 182 lbs 11/13/2014 Blood Pressure 1: 148/88 Code: 8480-6 BMI: 31.8 Code: 08328-2 Heart Rate 1: 54 bpm Height: 5'4" SpO2: 98% Weight: 185 lbs 07/10/2014 Blood Pressure 1: 144/96 Code: 8480-6 BMI: 31.4 Code: 21919-3 Heart Rate 1: 99 bpm Height: 5'4" SpO2: 98% Temperature: 36.8 (C ) / 98.2 (F) Weight: 183 lbs Functional Status No Functional Status data History of Present Illness Symptom Name Status Resu lt Effective Date Notes Location oral intake 10/01/2018 None Onset and Resolution o ngoing 10/01/2018 None Onset of Symptom durin g adulthood 10/01/2018 None Alleviating Factors me dication 10/01/2018 None Pertinent Findings Den ies anxiety 10/01/2018 None Pertinent Findings Den ies decreased energy 10/01/2018 None Location in the midlin e of in the middle back area 10/01/2018 None Quality pinching 10/01/2018 None Quality intermittent 10/01/2018 None Onset and Resolution g radual in onset 10/01/2018 None Onset of Symptom 3 mon ths ago 10/01/2018 None Location on the left 10/01/2018 None Location on the right 10/01/2018 None Quality cramping 10/01/2018 None Location oral intake 06/12/2018 None Onset and Resolution o ngoing 06/12/2018 None Onset of Symptom durin g adulthood 06/12/2018 None Alleviating Factors me dication 06/12/2018 None Pertinent Findings Den ies anxiety 06/12/2018 None Pertinent Findings Den ies decreased energy 06/12/2018 None Location oral intake 05/08/2018 None Onset and Resolution o ngoing 05/08/2018 None Onset of Symptom durin g adulthood 05/08/2018 None Alleviating Factors me dication 05/08/2018 None Pertinent Findings Den ies anxiety 05/08/2018 None Pertinent Findings Den ies decreased energy 05/08/2018 None _ Other: _ 03/27/2018 None Quality acute 03/27/2018 None Onset of Symptom 10 da ys ago 03/27/2018 None Severity moderate 03/27/2018 None Annual Medicare Wellness Exam Alcohol Use [...] Annual Medicare Wellness Exam Blood Pressure (self reported) diagnosed with hypertension 01/03/20 18 None Annual Medicare Wellness Exam Choles terol (self reported) diagnosed with elevated cholesterol 01/02/2018 None Annual Medicare Wellness Exam Hemagl obin A-1C (self reported) never checked 01/02/2018 None Annual Medicare Wellness Exam Descri be Your Health fair 01/02/2018 None Annual Medicare Wellness Exam Hours of Sleep 8-9 01/02/2018 None Annual Medicare Wellness Exam Intera ction with Friends no 01/02/2018 None Annual Medicare Wellness Exam Exerci se Habits does not exercise 01/02/2018 None Annual Medicare Wellness Exam Life S atisfaction satisfied 01/02/2018 Non e Annual Medicare Wellness Exam Motor Vehicle Safety always fastens seat belt: yes 2017 None Annual Medicare Wellness Exam Motor Vehicle Safety drives after drinking: no 01/02/2018 None Annual Medicare Wellness Exam Motor Vehicle Safety rides with someone who has been drinking: no 01/02/2018 None Annual Medicare Wellness Exam Smokin g and Tobacco Use non smoker 01/02/2018 No ne Annual Medicare Wellness Exam Sun Exposure protects skin when outdoors: no 01/02/2018 None Annual Medicare Wellness Exam Depres ayla (last 6 months) almost never 01/02/2018 None Annual Medicare Wellness Exam Depres ayla or Hopelessness almost never 01/02/2018 None Annual Medicare Wellness Exam Intere sts & Pleasure almost never 01/02/2018 None Annual Medicare Wellness Exam Handli ng Stress usually rima effectively 01/02/2018 None Annual Medicare Wellness Exam Stress almost never 01/02/2018 None Annual Medicare Wellness Exam Social & Emotional Support usually 01/02/2018 None Annual Medicare Wellness Exam Nutrition servings of fried food / high fat foods per day: 0-1 01/02/2018 None Annual Medicare Wellness Exam Nutrition servings of high fiber / whole grain per day: 1 01/02/2018 None Annual Medicare Wellness Exam Nutrition servings of vegetables / fruit per day: 2-3 01/02/2018 None knee pain Location on th e right 12/26/2017 None knee pain Quality giving way 12/26/2017 None knee pain Quality consta nt 12/26/2017 None knee pain Quality dull p ain 12/26/2017 None knee pain Onset of Symptom [...] weeks ago 10/17/2017 None earache Triggers no know n triggers 10/17/2017 None hypertension Onset and Resolution ongoing 09/27/2017 None hypertension Onset of Symptom during adulthood 09/27/2017 None hypertension Blood Pressure Values not checking blood pressure at home 09/27/2017 None hypertension Alleviating Factors medication 09/27/2017 None hypertension Pertinent Findings Denies dizziness 09/27/2017 None hypertension Pertinent Findings dyspnea 09/27/2017 "always" hypertension Pertinent Findings edema 09/27/2017 (swollen joints due to RA ) hypothyroid Onset and Resolution ongoing 09/27/2017 None hypothyroid Alleviating Factors medication 09/27/2017 None hypertension Quality chr onic 09/27/2017 None hypertension Quality frantz sary hypertension 09/27/2017 None 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 None rheumatoid arthritis Quality chronic 09/27/2017 None rheumatoid arthritis Pertinent Findings swelling 09/27/2017 None rheumatoid arthritis Prognostic Factors female 09/27/2017 None rheumatoid arthritis Significant Med ical Conditions high blood pressure 09/27/2017 None rheumatoid arthritis Significant Med ical Conditions thyroid disease 09/27/2017 None rheumatoid arthritis [...] Findings edema 03/24/2017 (swollen joints due to RA ) hypothyroid Onset and Resolution ongoing 03/24/2017 None [...] Quality acute 08/08/2016 None pleurisy Radiating the b ack 08/08/2016 None pleurisy Triggers no kno wn associated factors 08/08/2016 None urinary urgency Quality [...] urgency 06/27/2016 None foot pain Location on th e left 05/23/2016 None foot pain Location at th e MP joint of the great toe 05/23/2016 None foot pain Quality throbb ing 05/23/2016 None foot pain Quality acute 05/23/2016 None foot pain Quality consta nt 05/23/2016 None foot pain Quality worsen ing 05/23/2016 None foot pain Onset and Resolution [...] allows ambulation 02/23/2016 None hip pain Severity modera te 02/23/2016 None hip pain Significant Medications corticosteroids 02/23/2016 None hip pain Alleviating Factors NSAID's 02/23/2016 None hypertension Onset and Resolution ongoing 02/23/2016 None hypertension Onset of Symptom during adulthood 02/23/2016 None hypertension Alleviating Factors medication 02/23/2016 None hypertension Pertinent Findings Denies dizziness 02/23/2016 None hypertension Pertinent Findings Denies dyspnea 02/23/2016 None hypertension Pertinent Findings edema 02/23/2016 (swollen joints due to RA ) hypothyroid Onset and Resolution ongoing 02/23/2016 None hypothyroid Alleviating Factors medication 02/23/2016 None hypertension Blood Pressure Values not checking blood pressure at home 02/23/2016 None diarrhea Quality intermi ttent 02/23/2016 None diarrhea Onset and Resolution ongoing 02/23/2016 None diarrhea Triggers meals 02/23/2016 None hip pain Location on the left 09/15/2015 (worse) hip pain Quality chronic 09/15/2015 None hip pain Onset and Resolution ongoing 09/15/2015 None hip pain Limitation on Activities allows ambulation 09/15/2015 None hip pain Severity modera te 09/15/2015 None hip pain Significant Medications corticosteroids [...] both legs 05/26/2015 None rash Quality new 05/26/2015 None rash Color red 05/26/2015 None rash Onset and Resolution sudden in onset 05/26/2015 None rash Onset of Symptom 3 days ago 05/26/2015 None sciatica Location on the left 04/09/2015 None sciatica Quality improvi ng 04/09/2015 None sciatica Onset and Resolution ongoing 04/09/2015 None sciatica Onset of Symptom 3 months ago 04/09/2015 None sciatica Limitation on Activities moderately limits activities 04/09/2015 None sciatica Frequency of Episodes decreasing 04/09/2015 None sciatica Triggers activi ty 04/09/2015 None sciatica Alleviating Factors medication 04/09/2015 [...] allows ambulation 04/09/2015 None hip pain Severity modera te 04/09/2015 None hip pain Significant Medications corticosteroids 04/09/2015 None hip pain Alleviating Factors NSAID's 04/09/2015 None Annual Medicare Wellness Exam Alcohol Use does not drink any alcohol 03/30/2015 None Annual Medicare Wellness Exam Aspirin Use no 03/30/2015 None Annual Medicare Wellness Exam Blood Glucose (self reported) don't know 03/30/2015 No ne Annual Medicare Wellness Exam Blood Pressure (self reported) borderline (120/80 - 139/89) 016 None Annual Medicare Wellness Exam Choles terol (self reported) borderline high (200-239) 03/30/2015 None Annual Medicare Wellness Exam Depres ayla (last 6 months) almost never 03/30/2015 None Annual Medicare Wellness Exam Depres ayla or Hopelessness almost never 03/30/2015 None Annual Medicare Wellness Exam Descri be Your Health fair 03/30/2015 None Annual Medicare Wellness Exam Exerci se Habits exercises 3 days per week 03/30/2015 None Annual Medicare Wellness Exam Exerci se Habits exercises 30 minutes per day 03/30/2015 None Annual Medicare Wellness Exam Chaz ng Stress usually rima effectively 03/30/2015 None Annual Medicare Wellness Exam Hemagl obin A-1C (self reported) desireable (6 or lower) 03/30/2015 None Annual Medicare Wellness Exam Hours of Sleep 8 03/30/2015 None Annual Medicare Wellness Exam Intera ction with Friends yes 03/30/2015 None Annual Medicare Wellness Exam Intere sts & Pleasure almost all of the time 03/30/2015 None Annual Medicare Wellness Exam Life S atisfaction very satisfied 03/30/2015 None Annual Medicare Wellness Exam Motor Vehicle Safety always fastens seat belt: y 03/30/19 16 None Annual Medicare Wellness Exam Motor Vehicle Safety drives after drinking: n 03/30/2015 None Annual Medicare Wellness Exam Motor Vehicle Safety rides with someone who has been drinking: n 03/30/2015 None Annual Medicare Wellness Exam Nutrition servings of fried food / high fat foods per day: 0 03/30/2015 None Annual Medicare Wellness Exam Nutrition [...] n 03/30/2015 None Annual Medicare Wellness Exam Smokin g and Tobacco Use non smoker 03/30/2015 No ne sciatica Location on the left 03/10/2015 None sciatica Quality improvi ng 03/10/2015 None sciatica Onset and Resolution ongoing 03/10/2015 None sciatica Limitation on Activities moderately limits activities 03/10/2015 None sciatica Frequency of Episodes decreasing 03/10/2015 None sciatica Triggers activi ty 03/10/2015 None sciatica Pertinent Findings Denies fever 03/10/2015 None sciatica Pertinent Findings Denies weakness 03/10/2015 None hip pain Location on the left 03/10/2015 None hip pain Onset and Resolution ongoing 03/10/2015 None hip pain Limitation on Activities allows ambulation 03/10/2015 None hip pain Severity modera te 03/10/2015 None hip pain Significant Medications corticosteroids 03/10/2015 None hip pain Alleviating Factors NSAID's 03/10/2015 None sciatica Onset of Symptom 3 months ago 03/10/2015 None sciatica Alleviating Factors medication 03/10/2015 300 mg gabapentin TID and hydrocodone; Received an epidural injection on hip pain Quality chronic 03/10/2015 None sciatica Location on the left 12/16/2014 None sciatica Quality improvi ng 12/16/2014 None sciatica Onset and Resolution ongoing 12/16/2014 None sciatica Onset of Symptom 2 weeks ago 12/16/2014 None sciatica Limitation on Activities moderately limits activities 12/16/2014 None sciatica Frequency of Episodes decreasing 12/16/2014 None sciatica Triggers activi ty 12/16/2014 None sciatica Pertinent Findings Denies fever 12/16/2014 None sciatica Pertinent Findings Denies weakness 12/16/2014 None hip pain Location on the left 12/16/2014 None hip pain Quality sharp p ain 12/16/2014 None hip pain Quality tendern ess 12/16/2014 None hip pain Quality acute 12/16/2014 None hip pain Onset and Resolution ongoing 12/16/2014 None hip pain Onset of Symptom 2 weeks ago 12/16/2014 None hip pain Frequency of Episodes increasing 12/16/2014 None hip pain Limitation on Activities allows ambulation 12/16/2014 None hip pain Severity modera te 12/16/2014 None hip pain Significant Medications corticosteroids 12/16/2014 None hip pain Mechanism of injury unknown 12/16/2014 None hip pain Sports Participation not significant 12/16/2014 None hip pain Alleviating Factors NSAID's 12/16/2014 None sciatica Location on the left 12/09/2014 None sciatica Quality constant 12/09/2014 None sciatica Quality stabbing 12/09/2014 None sciatica Quality worseni ng 12/09/2014 None sciatica Onset of Symptom 1 weeks ago 12/09/2014 None sciatica Pertinent Findings low back pain 12/09/2014 None sciatica Pertinent Findings weakness 12/09/2014 None sciatica Limitation on Activities moderately limits activities 12/09/2014 None sciatica Frequency of Episodes increasing 12/09/2014 None sciatica Triggers no kno wn associated factors 12/09/2014 None sciatica Alleviating Factors rest 12/09/2014 None sciatica Exacerbating Factors activity 12/09/2014 None blood pressure followup Quality chronic 11/13/2014 None blood pressure followup Onset and Re solution ongoing 11/13/2014 None blood pressure followup Onset of Symptom during adulthood 11/13/2014 None blood pressure followup Blood Pressu re Values not checking blood pressure at home 11/13/2014 None blood pressure followup Pertinent Findings dizziness 11/13/2014 None depression Alleviating Factors medication 11/13/2014 None depression Quality chron ic 11/13/2014 None depression Onset and Resolution ongoing 11/13/2014 None depression Onset of Symptom during adulthood 11/13/2014 None cough Quality dry 07/10/2014 None cough Onset of Symptom 3 days [...] stools per day 07/10/2014 reports that since yester day she has been having diarrhea every hour diarrhea Pertinent Findings Denies cramping 07/10/2014 None diarrhea Pertinent Findings Denies fever 07/10/2014 None diarrhea Pertinent Findings nausea 07/10/2014 None diarrhea Pertinent Findings Denies bloating 07/10/2014 None nausea Quality intermitt ent 07/10/2014 None nausea Onset of Symptom 3 days ago 07/10/2014 None nausea Pertinent Findings cough 07/10/2014 None nausea Pertinent Findings dyspnea 07/10/2014 None nausea Pertinent Findings Denies fever 07/10/2014 None cough Triggers no known associated factors 07/10/2014 None blood pressure followup Alleviating Factor s diet changes 07/10/2014 None blood pressure followup Alleviating Factor s exercise 07/10/2014 None blood pressure followup Alleviating Factor s medication 07/10/2014 None blood pressure followup Blood Pressu re Values not checking blood pressure at home 07/10/2014 None blood pressure followup Blood Pressu re Values pt checking blood pressure - see scanned document 07/10/2014 None blood pressure followup Blood Pressu re Values Stage 0:SBP 130-139 mmHg / DBP 85-89 mmHg 07/10/2014 None blood pressure followup Frequency of Episodes unchanged 07/10/2014 Non e blood pressure followup Onset and Re solution ongoing 07/10/2014 None blood pressure followup Onset of Symptom during adulthood 07/10/2014 None blood pressure followup Quality chronic 07/10/2014 None Advance Directives No Advance Directive data Encounters Encounter Performer Loca tion Codes Date ([id number]) [id number] EST. P ATIENT, LEVEL IV Diagnosis: Essential (primary) hypertension[ICD10: I10] Diagnosis: Mixed hyperlipidemia[ICD10: E78.2] Diagnosis: Atrophy of thyroid (acquired)[ICD10: E03.4] Diagnosis: Other specified disorders of bone, other site[ICD10: M89.8X8] Shannon Falk MD, [facility] CPT-4: 16140 10/01/2018 ([id number]) [id number] EST. P ATIENT, LEVEL III Diagnosis: Essential (primary) hypertension[ICD10: I10] Diagnosis: Atrophy of thyroid (acquired)[ICD10: E03.4] Shannon Falk MD, C CPT-4: 73979 06/12/2018 ([id number]) [id number] EST. 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 P ATIENT, LEVEL III Diagnosis: Hypo-osmolality and hyponatremia[ICD10: E87.1] Shannon Falk MD, C CPT-4: 59716 03/27/2018 ([id number]) 13910 EST. 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 P ATIENT, LEVEL III Diagnosis: Otalgia, left ear[ICD10: H92.02] Diagnosis: Essential (primary) hypertension[ICD10: I10] Elizabet Falk MD, [facility] CPT-4: 92996 10/17/2017 ([id number]) [id number] EST. P ATIENT, LEVEL IV Diagnosis: 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[ICD10: M05.741] Diagnosis: 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[ICD10: M05.742] Diagnosis: Atrophy of thyroid (acquired)[ICD10: E03.4] Diagnosis: Essential (primary) hypertension[ICD10: I10] Shannon Falk MD, C CPT-4: 95700 09/27/2017 ([id number]) Miscellaneou s no charge Diagnosis: Essential (primary) hypertension[ICD10: I10] Elizabet Falk MD, [facility] CPT-4: 46283 07/31/2017 ([id number]) 80232 EST. P ATIENT, LEVEL IV Diagnosis: Essential (primary) hypertension[ICD10: I10] Diagnosis: Atrophy of thyroid (acquired)[ICD10: E03.4] Diagnosis: 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[ICD10: M05.741] Diagnosis: 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[ICD10: M05.742] Shannon Falk MD, [facility] CPT-4: 54590 03/24/2017 ([id number]) 58282 EST. P ATIENT, LEVEL IV Diagnosis: Atrophy of thyroid (acquired)[ICD10: E03.4] Diagnosis: Pleurisy[ICD10: R09.1] Diagnosis: Essential (primary) hypertension[ICD10: I10] Shannon Falk MD, C CPT-4: 19796 08/30/2016 ([id number]) 58667 EST. P ATIENT, LEVEL III Diagnosis: Pleurisy[ICD10: R09.1] Elizabet Falk MD, [facility] CPT-4: 75863 08/08/2016 14289 EST. PATIENT, LEVEL III Diagnosis: Dysuria[ICD10: R30.0] Diagnosis: Other pruritus[ICD10: L29.8] Shila Falk MD, [facility] CPT-4: 18257 06/27/2016 ([id number]) 16404 EST. P ATIENT, LEVEL III Diagnosis: Pain in left foot[ICD10: M79.672] Diagnosis: Pain in left toe(s)[ICD10: M79.675] Elizabet Falk MD, [facility] CPT-4: 21085 05/23/2016 16779 EST. PATIENT, LEVEL III Diagnosis: Candidiasis of vulva and vagina[ICD10: B37.3] Diagnosis: Dysuria[ICD10: R30.0] Shila Falk MD, [facility] CPT-4: 12461 04/18/2016 26241 EST. PATIENT, LEVEL III Diagnosis: Other pruritus[ICD10: L29.8] Diagnosis: Candidiasis of vulva and vagina[ICD10: B37.3] Shila Falk MD, [facility] CPT-4: 13598 03/07/2016 ([id number]) 34075 EST. P ATIENT, LEVEL IV Diagnosis: Essential (primary) hypertension[ICD10: I10] Diagnosis: Pain in left hip[ICD10: M25.552] Diagnosis: Pain in right hip[ICD10: M25.551] Diagnosis: Functional diarrhea[ICD10: K59.1] Diagnosis: Atrophy of thyroid (acquired)[ICD10: E03.4] hSannon Falk MD, [facility] CPT-4: 22572 02/23/2016 ([id number]) 42470 EST. P ATIENT, LEVEL IV Diagnosis: Essential (primary) hypertension[ICD10: I10] Diagnosis: Mixed hyperlipidemia[ICD10: E78.2] Diagnosis: Major depressive disorder, single episode, unspecified[ICD10: F32.9] Shannon Falk MD, [facility] CPT-4: 85643 09/15/2015 32558 EST. PATIENT, LEVEL III Diagnosis: Rash and other nonspecific skin eruption[ICD10: R21] Shila Falk MD, [facility] CPT-4: 70365 05/26/2015 ([id number]) 09528 EST. P ATIENT, LEVEL IV Diagnosis: Essential (primary) hypertension[ICD10: I10] Diagnosis: Foot drop, left foot[ICD10: M21.372] Diagnosis: Sacroiliitis, not elsewhere classified[ICD10: M46.1] Shannon Falk MD, [facility] CPT-4: 60880 04/09/2015 ([id number]) 15969 EST. 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 P ATIENT, LEVEL III Diagnosis: Trochanteric bursitis, left hip[ICD10: M70.62] Diagnosis: Iliotibial band syndrome, left leg[ICD10: M76.32] Diagnosis: Sciatica, left side[ICD10: M54.32] Elizabet Falk MD, [facility] CPT-4: 74548 12/16/2014 ([id number]) 49205 EST. P ATIENT, LEVEL III Diagnosis: Sciatica, left side[ICD10: M54.32] Diagnosis: Sacroiliitis, not elsewhere classified[ICD10: M46.1] Elizabet Falk MD, [facility] CPT-4: 00380 12/09/2014 ([id number]) 53292 EST. 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] Diagnosis: Carpal tunnel syndrome, unspecified upper limb[ICD10: G56.00] Shannon Falk MD, [facility] CPT-4: 84185 11/13/2014 ([id number]) OFFICE VISI T, NEW - LEVEL 4 Diagnosis: ESSENTIAL HYPERTENSION[ICD9: 401.9] Diagnosis: HYPERLIPIDEMIA[ICD9: 272.4] Diagnosis: DEPRESSIVE DISORDER NEC[ICD9: 311] Diagnosis: Diarrhea[ICD9: 787.91] Shannon Falk MD, [facility] CPT-4: 53213 07/10/2014 Plan of Care Planned Activity Notes C odes Status Date Appointment: Shannon Falk WPtel: [phone] [facility] (15 min) Moderate 10/17/2018 Visit Plan: Hypertension - well con trolled - continue with current medications, continue with [...] to assure normal liver response to medications. Hypothyroidism - pt with chronic hypothyroidism, continue with current medication, will monitor pt to signs or symptoms of lack of adequate supplementation. Pt is to continue with current dose of medication unless directed otherwise. Check labs at regular intervals q 3 months or q 6 months based on previous levels of control. Back pain - advised pt to stop sleeping on her side - She has been referred to Ivan Anderson for mid thoracic back pain. 10/01/2018 Appointment: Shannon [facility]el[phone] (15 min) Moderate 10/01/2018 Patient Education: Patient Medication Summary Completed 10/01/2018 Patient Education: Cholesterol Management Completed 10/01/2018 Patient Education: Patient Medication Summary Completed 08/03/2018 Visit Plan: Hypertension - well con trolled - continue with current medications, continue with no added salt diet. Pt has been encouraged to exercise daily. The pt has been advised to call the office if there are any acute concerns about change in blood pressure readings at home. intermittent dizziness - with positional changes - but with her recently good blood pressure control - I have recommended against changes in her medication. she is to mobilize extremities prior to ambulating and she is also to slowly rise from seated position. Hypothyroidism - pt with chronic hypothyroidism, continue with current medication, will monitor pt to signs or symptoms of lack of adequate supplementation. Pt is to continue with current dose of medication unless directed otherwise. Check labs at regular intervals q 3 months or q 6 months based on previous levels of control. 06/12/2018 Appointment: Shannon Falk [facility]Ptel: [phone] (15 min) Moderate 06/12/2018 Patient Education: Patient Medication Summary Completed 06/12/2018 Patient Education: Hypertension Completed 06/12/2018 Visit Plan: Hypertension - maricruz sanchez - continue with current medications, continue with [...] to assure normal liver response to medications. Hypothyroidism - pt with chronic hypothyroidism, continue with current medication, will monitor pt to signs or symptoms of lack of adequate supplementation. Pt is to continue with current dose of medication unless directed otherwise. Check labs at regular intervals q 3 months or q 6 months based on previous levels of control. 05/08/2018 Appointment: Shannon Falk WPtel: [phone] [facility] [place] (15 min) Moderate 05/08/2018 Patient Education: Patient Medication Summary Completed 05/08/2018 Patient Education: Hypertension Completed 05/08/2018 Appointment: Shannon Falk WPtel: [phone] [facility] [place] (15 min) Moderate 03/28/2018 Visit Plan: Hyponatremia - continue with current treatment - gatorade/powerade, monitor electrolytes. 03/27/2018 Appointment: Shannon Falk WPtel: [facility]5 [facility] (15 min) Moderate 03/27/2018 Patient Education: Patient Medication Summary Completed 03/27/2018 Patient Education: Patient Medication Summary Completed 02/01/2018 Appointment: Shannon Falk WPtel: [address] [place], [place] [id number] (15 min) Moderate 01/22/2018 Patient Education: Patient Medication Summary Completed 01/05/2018 Visit Plan: Medicare Exam - today w e discussed the patients past history, immunizations, preventative [...] care surrogate. 01/02/2018 Appointment: Elizabet Donaldson WPtel: [facility]3 [facility] [id number] - Annual Wellness Visit 01/02/2018 Patient Education: Patient Medication Summary Completed 01/02/2018 Visit Plan: Hypertension - well con trolled - continue with current medications, continue with [...] to have right total knee replacement in [place] with Dr. Branham - we will send [...] control. 12/26/2017 Appointment: Shannon Falk WPtel: [phone] [facility] (15 min) Moderate 12/26/2017 Patient Education: Patient Medication Summary Completed 12/26/2017 Patient Education: Hypertension Completed 12/26/2017 Visit Plan: Otalgia -no sign of inf ection - monitor symptoms and call if they do not resolve Hypertension - not well controlled-monitor at home and come in for blood pressure check -discussed increasing benicar if blood pressure stays elevated. Patient verbalized understanding of plan. 10/17/2017 Appointment: Elizabet Donaldson WPtel: [phone] [facility] [phone] [place] (15 min) Moderate 10/17/2017 Patient Education: Patient Medication Summary Completed 10/17/2017 Visit Plan: Rheumatoid Arthritis - Bilateral Hands - Pt is not able to take many of the biologic agents -and she does not feel like she can continue with the pain in her hands from the RA. She has never had joint i njections and I have recommended that she have [...] home. 09/27/2017 Appointment: Shannon Falk WPtel: [phone] [facility] (15 min) Moderate 09/27/2017 Patient Education: Patient Medication Summary Completed 09/27/2017 Care Plan: Referral Order SNOMED-CT : [id number] Pending 09/27/2017 Appointment: Shannon Falk WPtel: [phone] [facility] (15 min) Moderate 09/21/2017 Appointment: Nurse Visit 07/31/2017 Patient Education: Patient Medication Summary Completed 07/31/2017 Visit Plan: Hypertension - well con trolled - continue with current medications, continue with [...] months based on previous levels of control. R A - uncontrolled symptoms - her insurance company has denied her Xlegajnz and she is hopeful that the appeal will be approved, if not, then they are going to have to try Humira - but she is nervous about injecting herself. Increase the celebrex to twice daily. 03/24/2017 Visit Plan: Hypertension - well con trolled - continue with current medications, continue with [...] months based on previous levels of control. R A - uncontrolled symptoms - her insurance company has denied her Xlegajnz and she is hopeful that the appeal will be approved, if not, then they are going to have to try Humira - but she is nervous about injecting herself. Increase the celebrex to twice daily. 03/24/2017 Appointment: Shannon Falk WPtel: [phone] [facility] (15 min) Moderate 03/24/2017 Patient Education: Patient Medication Summary Completed 03/24/2017 Appointment: Shannon Falk WPtel: [phone] [facility] (15 min) Moderate 03/16/2017 Appointment: Shannon Falk WPtel: [phone] [facility] (15 min) Moderate 03/01/2017 Visit Plan: Hypertension - well con trolled - continue with current medications, continue with [...] months based on previous levels of control. P leumalu - continue with supportive care. 08/30/2016 Appointment: Shannon Falk WPtel: [phone] [facility] (15 min) Moderate 08/30/2016 Patient Education: Patient Medication Summary Completed 08/30/2016 Patient Education: Obesity Completed 08/30/2016 Patient Education: Hypertension Completed 08/30/2016 Visit Plan: Pleurisy-discussed natu ral and expected course of this diagnosis and to alert me if symptoms do not follow expected course, or if any worse. Kenalog injection today in the office-start prednisone tomorrow. Patient verbalized understanding of plan. 08/08/2016 Appointment: Elizabet Donaldson [facility]Ptel: [phone] [facility] [place] (30 min) Complex 08/08/2016 Patient Education: Patient Medication Summary Completed 08/08/2016 Referral: Delia Bernstein WPtel: [phone] [place] [facility] B [id number] Referral Initiated 08/01/2016 Visit Plan: Vaginal yeast [...] will refer. 06/27/2016 Appointment: Shila Deluna WPtel: [phone] [facility] [place] (30 min) Complex 06/27/2016 Patient Education: Patient Medication Summary Completed 06/27/2016 Care Plan: Referral Order SNOMED-CT : [id number] Pending 06/27/2016 Visit Plan: Left foot, 1st and 2nd toe pain-suspect fracture of left great toe-will obtain xrays and proceed as indicated. Patient verbalized understanding of plan. 05/23/2016 Appointment: Elizabet Donaldson WPtel: [phone] [facility] [place] (15 min) Moderate 05/23/2016 Patient Education: [...] Completed 03/07/2016 Visit Plan: Hypertension - well con trolled - continue with current medications, continue with [...] months based on previous levels of control. D iarrhea - functional - start probiotics 02/23/2016 Appointment: [place] Shannon WPtel: [phone] [facility] (15 min) Moderate 02/23/2016 Patient Education: Patient Medication Summary Completed 02/23/2016 Patient Education: Hypertension Completed 02/23/2016 Visit Plan: Hypertension - well con laura - continue with current medications, continue with [...] Completed 09/15/2015 Appointment: Shannon Falk WPtel: [phone] [facility] (15 min) Moderate 07/29/2015 Visit Plan: Rash - pt has an erythe matous macular rash on her legs, arms, and [...] Visit Plan: Rash - pt has an erythe matous macular rash on her legs, arms, and [...] Completed 05/26/2015 Visit Plan: Hypertension - well con trolled - continue with current medications, continue with no added salt diet. Pt has been encouraged to exercise daily. The pt has been advised to call the office if there are any acute concerns about change in blood pressure readings at home. Peripheral Neuropathy - recommended pt to start on higher doses of Neurontin - vitamin B12 liquid 2000mcg daily - [facility] sells the liquid b12, folic acid - take daily. metanex 1 capsule twice daily - call office if this seems to help decrease nerve pain increase the night-time dosing of gabapentin to 300mg in AM, Noon, 6pm and 10pm 04/09/2015 Appointment: Shannon Falk WPtel: [address] [place], [place] [address] (15 min) Moderate 04/09/2015 Patient Education: Patient Medication Summary Completed 04/09/2015 Patient Education: Hypertension Completed 04/09/2015 Visit Plan: Welcome to Medicare Exa m - today we discussed the patients past history, immunizations, preventative exams/evaluations - colonoscopy, fecal occult blood testing, routine labs for renal function, gluc ose, cholesterol, osteoporosis evaluations, cardiovascular testing and cancer [...] Referral Completed 03/16/2015 Visit Plan: Lumbar degenerative art hritis - RX for physical therapy - pt [...] 2012. 03/10/2015 Appointment: Shannon Falk WPtel: [phone] [facility] (15 min) Moderate 03/10/2015 Patient Education: Patient Medication Summary Completed 03/10/2015 Care Plan: SCREENINGMAMMOGRAPHYDIGITAL LOINC : 88241-9 Ordered 03/10/2015 Care Plan: Referral Order SNOMED-CT : [id number] Ordered 03/10/2015 Care Plan: Referral Order SNOMED-CT : [id number] Ordered 03/10/2015 Visit Plan: Left hip bursitis/Iliot ibial band syndrome- recommended use of anti-inflammatories and pt given handout on Iliotibial band exercises.band syndrome- recommended use of anti-inflammatories and pt given abernathy ndout on Iliotibial band exercises. Refer to Dr [...] Summary Completed 12/16/2014 Patient Education: .Pippa espinosa lliot ibial Band Rehabilitation exercises Completed 12/16/2014 Patient Education: .[employer] Exercise for Sciati ca Completed 12/16/2014 Care Plan: Referral Order SNOMED-CT : [id number] Ordered 12/16/2014 Visit Plan: Sacroiliitis - back exe rcises discussed with the patient, pt to continue [...] Medication Summary Completed 12/09/2014 Patient Education: .[employer] Exercise for Sciati ca Completed 12/09/2014 Visit Plan: Hypertension - uncontro lled - the patient's medications have been modified as documented in the visit note. The patient has been counseled to cut back on salt in diet for a no added salt diet, low fat d iet, start an exercise program with low weight [...] tunnel brace. 11/13/2014 Appointment: Shannon Falk WPtel: [phone] [facility] Follow up 11/13/2014 Patient Education: Patient Medication Summary Completed 11/13/2014 Patient Education: Hypertension Completed 11/13/2014 Visit Plan: Hypertension - well con trolled - continue with current medications, continue with [...] stomach pain. ALIGN PROBIOTIC - TAKE DAILY ([employer] OR [employer] [facility] -TWO OTHER PROBIOTICS THAT ARE HIGH QUALITY) CIPROFLOXACIN TO BE TAKEN IF NEEDED IF THE DIARRHEA DOES NOT IMPROVE OR IF IT WORSENS. 07/10/2014 Appointment: Shannon Falk WPtel: [phone] [facility] [place] ([place]) New Patient 07/10/2014 Patient Education: Patient Medication Summary Completed 07/10/2014 Patient Education: Hypertension Completed 07/10/2014 Referral: Darci Spann Referral Relationship Referral: External, Ordering Provider Referral Appointment Requested Referral: External, Ordering Provider 09/28 Referral info faxed to [facility] 10/03 They tried calling her with an appt and she did not answer. Called patient and she will call them back. Appoint ment Requested Referral: External, Ordering Provider Referral Appointment Requested Referral: Del[facility]Ptel[phone] [facility] [place] Referral Initiated Referral: External, Ordering Provider Referral Completed Instructions Comment luanne gonsalves e - look up on [employer] . Hypertension - well controlled - elgin nue with current medications, continue with no added [...] daily . Hypertension - well controlled - elgin nue with current medications, continue with no added [...] daily . Hypertension - well controlled - elgin nue with current medications, continue with no added [...] - her insurance company has denied her Xlegajneryz and she is hopeful that the appeal will be approved, if not, then they are going to have to try Humira - but she is nervous about injecting herself. Increase the celebrex to twice daily. . Vaginal yeast infe ction - Discussed natural and expected course of this diagnosis and need to alert me if symptoms do not follow expected course, or if any worse. RX sent to patient's pharmacy. Discussed pelvic exam with the pt due to recurrent symptoms - Pt would like to be referred to Dr. Bernstein for her recurrent symptoms - will refer. you currently have a mlodipine 5mg, increase this to two pills, use up your supply, when it is finished, refill the 10mg pill at [facility]. carpal tunnel brace . Hypertension - uncontrolled - the jose raul ent's medications have been modified as documented in [...] use carpal tunnel brace. . Vaginal yeast infe ction - Discussed natural and expected course of [...] for a pelvic exam. XRAY LUMBAR SPINE AN D SI JOINT SCIATICA EXERCISES . Sacroiliitis - back exercises discusse d with the patient, pt to continue with anti-inflammatories. Pt is to call if the symptoms do not improve or if they worsen. Kenalog injection today in the office. Plan to xray lumbar spine and SI joint. Start steroid taper tomorrow-use hydrocodone prn-call if pain does not resolve or if any worse. . Lumbar degenerativ e arthritis - RX for physical therapy - [...] Maria Ines recommended repeat scope in 2013. . Hypertension - wel l controlled - continue with current medications, continue [...] to assure normal liver response to medications. Hypothyroidism - pt with chronic hypothyroidism, continue with current medication, will monitor pt to signs or symptoms of lack of adequate supplementation. Pt is to continue with current dose of medication unless directed otherwise. Check labs at regular intervals q 3 months or q 6 months based on previous levels of control. Back pain - advised pt to stop sleeping on her side - She has been referred to Ivan Anderson for mid thoracic back pain. Nasal spray- use twi ce daily, one spray per nostril twice daily, after 30 minutes, rinse out nose with saline spray.. Use opposite hand per nostril to spray in the nasal steroid allergy spray. ALIGN PROBIOTIC - TAKE DAILY ([employer] OR [employer] -TWO OTHER PROBIOTICS THAT ARE HIGH QUALITY) CIPROFLOXACIN TO BE TAKEN IF NEEDED IF THE DIARRHEA DOES NOT IMPROVE OR IF IT WORSENS. . Hypertension - well controlled - elgin nue with current medications, continue with no added [...] stomach pain. ALIGN PROBIOTIC - TAKE DAILY ([employer] OR [employer] -TWO OTHER PROBIOTICS THAT ARE HIGH QUALITY) CIPROFLOXACIN TO BE TAKEN IF NEEDED IF THE DIARRHEA DOES NOT IMPROVE OR IF IT WORSENS. . Hypertension - wel l controlled - continue with current medications, continue [...] Pleurisy - continue with supportive care. . Welcome to Medicar e Exam - today we discussed the patients [...] and to maintain independece in the home. qunol - co-enzyme q1 0 supplementation to be taken with the cholesterol medication. start on the lipitor at 1/2 a tablet nightly x 1 week then increase up to a full tablet daily thereafter increase benicar to 40mg daily . Hypertension - well controlled - elgin nue with current medications, continue with no added [...] to assure normal liver response to medications. Hypothyroidism - pt with chronic hypothyroidism, continue with current medication, will monitor pt to signs or symptoms of lack of adequate supplementation. Pt is to continue with current dose of medication unless directed otherwise. Check labs at regular intervals q 3 months or q 6 months based on previous levels of control. vitamin B12 liquid 2 000mcg daily - [employer] sells the liquid b12 folic acid - take daily. metanex 1 capsule twice daily - call office if this seems to help decrease nerve pain increase the night-time dosing of gabapentin to 300mg in AM, Noon, 6pm and 10pm . Hypertension - well controlled - elgin nue with current medications, continue with no added salt diet. Pt has been encouraged to exercise daily. The pt has been advised to call the office if there are any acute concerns about change in blood pressure readings at home. Peripheral Neuropathy - recommended pt to start on higher doses of Neurontin - vitamin B12 liquid 2000mcg daily - [employer] sells the liquid b12, folic acid - take daily. metanex 1 capsule twice daily - call office if this seems to help decrease nerve pain increase the night-time dosing of gabapentin to 300mg in AM, Noon, 6pm and 10pm recommend Shingles v accine . Medicare Exam - today we discussed [...] health care surrogate. XRAY LEFT FOOT AND T OES . Left foot, 1st and 2nd toe pain-suspec t fracture of left great toe-will obtain xrays and proceed as indicated. Patient verbalized understanding of plan. Duexis 1 tab twice d aily IT band exercises . Left hip bursitis/Iliotibial band synd nallely- recommended use of anti- inflammatories and pt [...] not improve or if they worsen. . Hypertension - wel l controlled - continue with current medications, continue with no added salt diet. Pt has been encouraged to exercise daily. The pt has been advised to call the office if there are any acute concerns about change in blood pressure readings at home. intermittent dizziness - with positional changes - but with her recently good blood pressure control - I have recommended against changes in her medication. she is to mobilize extremities prior to ambulating and she is also to slowly rise from seated position. Hypothyroidism - pt with chronic hypothyroidism, continue with current medication, will monitor pt to signs or symptoms of lack of adequate supplementation. Pt is to continue with current dose of medication unless directed otherwise. Check labs at regular intervals q 3 months or q 6 months based on previous levels of control. . Pleurisy-discussed natural and expected course of this diagnosis and to alert me if symptoms do not follow expected course, or if any worse. Kenalog injection today in the office-start prednisone tomorrow. Patient verbalized understanding of plan. MONITOR BLOOD PRESSU RE AND PULSE -BRING READINGS IN FOR BLOOD PRESSURE CHECK IN THE NEXT COUPLE OF WEEKS . Otalgia -no sign of infection - monito r symptoms and call if they do not resolve Hypertension - not well controlled-monitor at home and come in for blood pressure check -discussed increasing benicar if blood pressure stays elevated. Patient verbalized understanding of plan. . Hypertension - wel l controlled - continue with current medications, continue [...] functional - start probiotics . Vaginal yeast infe ction - Discussed natural and expected course of this diagnosis and need to alert me if symptoms do not follow expected course, or if any worse. RX sent to patient's pharmacy. dr. gely duncan - [facility] - hand specialist [...] pressure readings at home. Will give steroid sh ot today, will send prednisone pills, call us [...] or with any concerns. Will give steroid sh ot today, will send prednisone pills, call us [...] they worsen, or with any concerns. . Hyponatremia - con tinue with current treatment - gatorade/powerade, monitor electrolytes. . Hypertension - wel l controlled - continue with current medications, continue [...]
--- OUTSIDE RECORDS SUMMARY | 2019-06-07 16:17 | XMS REPORT | CCD ---
Author Author Dalila Falk Organization Shannon Falk MD, [facility] Address [address] [place] [address] Phone Care Team Providers Care Salon/Spa Manager Name Role Phone PP Unavailable CCM Unavailable Summary Purpose Interface Exchange Insurance Providers Payer name Policy type / Coverage type Covered libertarian ID Effective Begin Date Effective End Date WPS Medicare Part B Medicare Part B [id number] Unknown Citizen Of [place] Long-Term Life Insurance M edicare Part B [id number] Unkn own Family history Brother Diagnosis Age [...] Unknown 2 07/10/[address]: 595238100 Has never smoked or chewed tobacco 07/10/2014 Alcohol history Unknown occasionally drinks alcohol 07/10/2014 Allergies, Adverse Reactions, Alerts Substance Reaction Codes Entered Date Inactivated Date Status Remicade hives RxNorm: 823381 03/24/2017 No Inactive Date Active * NO [...] Date Stop Date Sta tus Fill Instructions metoprolol succinate ER 25 mg tablet,extended release 24 hr RxNorm: 712216 25 MG PO DAILY 10/18/2018 No Stop Date Active Vitamin D2 50,000 un it capsule RxNorm: 9264674 1 Capsule(s) PO QW 10/03/2018 12/31/2018 Active Vitamin D2 50,000 un it capsule RxNorm: 4788007 1 Capsule(s) PO QW 10/03/2018 10/02/2018 Inactive hydrocodone 7.5 mg-a cetaminophen 325 mg tablet RxNorm: 785592 1-2 Tablet(s) PO Q4H as needed 10/01/2018 10/15/2018 Inactive Synthroid 75 mcg tablet RxNorm: 677780 TAKE 1 TABLET BY MOUTH EVERY DAY 07/27/2018 02/21/2019 Ac tive Generic For:*SYNTHROID 0.075MG TAB 08/2018 9:45:14 AM N O T I C E Last quantity doesn't match original quantity Lipitor 20 mg tablet RxNorm: 244401 1 Tablet(s) PO QPM 05/08/2018 05/02/2019 Active Benicar 40 mg tablet RxNorm: 915470 1 Tablet(s) PO daily 05/08/2018 05/02/2019 Active Celebrex 200 mg capsule RxNorm: 225732 1 Capsule(s) PO BID 05/03/2018 04/27/2019 Active citalopram 20 mg tablet RxNorm: 596826 Tablet(s) TAKE ONE (1) TABLET BY MOUTH D AILY 05/03/2018 04/27/2019 Ac tive hydrocodone 7.5 mg-a cetaminophen 325 mg tablet RxNorm: 655387 1-2 Tablet(s) PO Q4H as needed 05/01/2018 05/15/2018 Inactive cefdinir 300 mg capsule RxNorm: 352496 1 Capsule(s) PO BID 04/17/2018 04/23/2018 Inactive cefdinir 300 mg capsule RxNorm: 189267 1 Capsule(s) PO BID 04/17/2018 04/16/2018 Inactive clobetasol 0.05 % to pical cream RxNorm: 591916 1 dime size amount Ap plication TOP daily as needed vaginal irritation 03/27/2018 07/24/2018 Inactive metoprolol succinate ER 25 mg tablet,extended release 24 hr RxNorm: 500575 1 Tablet(s) PO daily 03/27/2018 10/17/2018 Inactive Synthroid 75 mcg tablet RxNorm: 016592 Tablet(s) TAKE 1 TABLET BY MOUTH DAILY 02/07/2018 07/26/2018 In active Generic For:*SYNTHROID 0.075MG TAB 11/14 9:16:33 AM N O T I C E Last quantity doesn't match original quantity hydrocodone 7.5 mg-a cetaminophen 325 mg tablet RxNorm: 457991 1-2 Tablet(s) PO Q4H as needed 10/12/2017 10/26/2017 Inactive Synthroid 75 mcg tablet RxNorm: 568377 Tablet(s) TAKE 1 TABLET BY MOUTH DAILY 08/09/2017 02/06/2018 In active Generic For:*SYNTHROID 0.075MG TAB 10/22 9:16:33 AM N O T I C E Last quantity doesn't match original quantity hydrocodone 7.5 mg-a cetaminophen 325 mg tablet RxNorm: 212599 1-2 Tablet(s) PO Q4H as needed 05/22/2017 06/20/2017 Inactive amlodipine 10 mg tablet RxNorm: 085863 1 Tablet(s) PO daily 1 Tablet(s) PO ashlie y 05/09/2017 09/26/2017 In active citalopram 20 mg tablet RxNorm: 045718 Tablet(s) TAKE ONE (1) TABLET BY MOUTH D AILY 05/09/2017 05/02/2018 Inactive losartan 100 mg tablet RxNorm: 050377 1 Tablet(s) PO daily TAKE 1 TABLET BY MO UTH DAILY 05/09/2017 01/01/2018 Inactive gabapentin 300 mg ca psule RxNorm: 085278 1 Capsule(s) PO daily 03/24/2017 No Stop Date Active Celebrex 200 mg capsule RxNorm: 318947 1 Capsule(s) PO BID 1 Capsule(s) PO ashlie y 03/24/2017 03/23/2017 In active Celebrex 200 mg capsule RxNorm: 897900 1 Capsule(s) PO BID 03/24/2017 03/18/2018 Inactive amlodipine 10 mg tablet RxNorm: 276920 1 Tablet(s) PO daily 1 Tablet(s) PO ashlie y 03/24/2017 05/08/2017 In active Lipitor 40 mg tablet RxNorm: 574927 Tablet(s) TAKE ONE TABLET BY MOUTH AT BE [facility] 02/14/2017 09/26/2017 Inactive hydrocodone 7.5 mg-a cetaminophen 325 mg tablet RxNorm: 190340 1-2 Tablet(s) PO Q4H as needed 01/16/2017 02/14/2017 Inactive scopolamine 1.5 mg t ransdermal patch (1 mg over 3 days) RxNorm: 988834 1 Patch TD Q72H 11/25/2016 12/04/2016 Inactive scopolamine 1.5 mg t ransdermal patch (1 mg over 3 days) RxNorm: 947488 1 Patch TD Q72H 11/25/2016 11/24/2016 Inactive losartan 100 mg tablet RxNorm: 006094 1 Tablet(s) PO daily TAKE 1 TABLET BY MO [facility] DAILY 11/14/2016 05/08/2017 Inactive Generic For:COZAAR 100MG TA B 05/17/2016 8:31:51 AM Synthroid 75 mcg tablet RxNorm: 443923 TAKE 1 TABLET BY MOUTH DAILY 11/14/2016 06/11/2017 Inactive Generic For:*SYNTHROID 0.075MG TAB 10/22 9:16:33 AM N O T I C E Last quantity doesn't match original quantity citalopram 20 mg tablet RxNorm: 976023 TAKE ONE (1) TABLET BY MOUTH DAILY 11/14/2016 05/08/2017 In active Generic For:CELEXA 20MG TAB 11/14/2016 8:30:49 AM N O T I C E Last quantity doesn't match original quantity prednisone 10 mg tab lets in a dose pack RxNorm: 638301 1 Tablet(s) PO UD 09/30/2016 10/05/2016 In active 6-5-4-3-2-1 hydrocodone 7.5 mg-a cetaminophen 325 mg tablet RxNorm: 488977 1-2 Tablet(s) PO Q4H as needed 09/20/2016 01/15/2017 Inactive amlodipine 5 mg tablet RxNorm: 013263 TAKE ONE TABLET BY MOUTH EVERY DAY 08/15/2016 03/23/2017 In active Generic For:NORVASC 5 MG TABLET 017 3:56:26 PM N O T I C E Last quantity doesn't match original quantity Kenalog 40 mg/mL [place] pension for injection RxNorm: 9966983 1 Milliliter(s) Inj 08/08/2016 08/08/2016 In active prednisone 10 mg tab lets in a dose pack RxNorm: 660139 1 Tablet(s) PO UD 08/08/2016 08/07/2016 In active prednisone 10 mg tab lets in a dose pack RxNorm: 698623 1 Tablet(s) PO UD 08/08/2016 08/13/2016 In active 6-5-4-3-2-1 Diflucan 150 mg tablet RxNorm: 099107 1 Tablet(s) PO daily 06/27/2016 07/10/2016 Inactive Synthroid 75 mcg tablet RxNorm: 213441 TAKE 1 TABLET BY MOUTH DAILY 06/16/2016 11/13/2016 Inactive Generic For:*SYNTHROID 0.075MG TAB pt wo uld like a 90 day supply N O T I C E Last quantity doesn't match original quantity hydrocodone 7.5 mg-a cetaminophen 325 mg tablet RxNorm: 857389 1-2 Tablet(s) PO Q4H as needed 06/06/2016 09/19/2016 Inactive citalopram 20 mg tablet RxNorm: 485936 TAKE ONE (1) TABLET BY MOUTH DAILY 05/18/2016 11/13/2016 In active Generic For:CELEXA 20MG TAB 05/17/2016 8:32:02 AM Celebrex 200 mg capsule RxNorm: 112263 1 Capsule(s) PO daily 05/17/2016 03/23/2017 Inactive losartan 100 mg tablet RxNorm: 018004 TAKE 1 TABLET BY MOUTH DAILY 05/17/2016 11/12/2016 Inactive Generic For:COZAAR 100MG TAB 05/17/2016 8:31:51 AM amlodipine 5 mg tablet RxNorm: 518106 1 Tablet(s) PO daily 05/10/2016 08/14/2016 Inactive Cipro 500 mg tablet RxNorm: 682399 1 Tablet(s) PO BID 05/04/2016 05/03/2016 Inactive Cipro 500 mg tablet RxNorm: 240826 1 Tablet(s) PO BID 05/04/2016 05/13/2016 Inactive Diflucan 150 mg tablet RxNorm: 793643 1 Tablet(s) PO daily 04/18/2016 05/01/2016 Inactive Monistat Soothing Ca re 1.2 % topical gel RxNorm: 8352042 1 Application TOP BI D 03/07/2016 01/01/2018 In active Diflucan 150 mg tablet RxNorm: 965145 1 Tablet(s) PO daily 03/07/2016 03/13/2016 Inactive Lipitor 40 mg tablet RxNorm: 221930 Tablet(s) TAKE ONE TABLET BY MOUTH AT BE DTIME 02/23/2016 02/13/2017 Inactive citalopram 20 mg tablet RxNorm: 018486 TAKE ONE (1) TABLET BY MOUTH DAILY 02/18/2016 05/17/2016 In active Generic For:CELEXA 20MG TAB refill reque st losartan 100 mg tablet RxNorm: 177671 Tablet(s) 1 Tablet, 1 time per Day 02/09/2016 05/16/2016 In active INSURANCE WILL NOT COVER ADELA ANDREWS UNTIL OTHER FORMULARIES HAVE BEEN TRIED AND FAILED hydrocodone 7.5 mg-a cetaminophen 325 mg tablet RxNorm: 883444 1-2 Tablet(s) PO Q4H as needed 02/03/2016 06/05/2016 Inactive Synthroid 75 mcg tablet RxNorm: 561622 Tablet(s) TAKE 1 TABLET BY MOUTH DAILY 01/19/2016 06/15/2016 In active Generic For:*SYNTHROID 0.075MG TAB 08/0 04/2014 10:00:02 AM N O T I C E PRESCRIPTION PREVIOUSLY AUTHORIZED BY DOCTOR:SWATI BEY prednisone 10 mg tab lets in a dose pack RxNorm: 955196 1 Tablet(s) PO UD 01/07/2016 02/22/2016 In active 6-5-4-3-2-1 amlodipine 10 mg tablet RxNorm: 729995 1 Tablet(s) PO daily 12/07/2015 11/30/2016 Inactive citalopram 20 mg tablet RxNorm: 063165 TAKE ONE (1) TABLET BY MOUTH DAILY 11/17/2015 02/14/2016 In active Generic For:CELEXA 20MG TAB refill reque st hydrocodone 7.5 mg-a cetaminophen 325 mg tablet RxNorm: 918958 1-2 Tablet(s) PO Q4H as needed 10/08/2015 02/02/2016 Inactive losartan 100 mg tablet RxNorm: 302621 Tablet(s) 1 Tablet, 1 time per Day 2015 02/07/2016 In active INSURANCE WILL NOT COVER [place] ANDREWS UNTIL OTHER FORMULARIES HAVE BEEN TRIED AND FAILED citalopram 20 mg tablet RxNorm: 269185 TAKE ONE (1) TABLET BY MOUTH DAILY 08/10/2015 11/07/2015 In active Generic For:CELEXA 20MG TAB 08/10/2015 8:59:58 AM Synthroid 75 mcg tablet RxNorm: 157779 Tablet(s) TAKE 1 TABLET BY MOUTH DAILY 05/26/2015 12/21/2015 In active Generic For:*SYNTHROID 0.075MG TAB 04/2014 10:00:02 AM N O T I C E PRESCRIPTION PREVIOUSLY AUTHORIZED BY DOCTOR:SWATI BEY prednisone 20 mg tablet RxNorm: 874394 2 Tablet(s) PO daily 05/26/2015 05/30/2015 Inactive Lipitor 40 mg tablet RxNorm: 736148 TAKE ONE TABLET BY MOUTH AT BEDTIME 05/14/2015 02/07/2016 In active Generic For:LIPITOR 40MG TAB 05/13/2015 8:26:33 AM N O T I C E PRESCRIPTION PREVIOUSLY AUTHORIZED BY DOCTOR:SWATI BEY hydrocodone 7.5 mg-a cetaminophen 325 mg tablet RxNorm: 523221 1-2 Tablet(s) PO Q4H as needed 05/11/2015 10/07/2015 Inactive Celebrex 200 mg capsule RxNorm: 226422 1 Capsule(s) PO daily 05/07/2015 04/30/2016 Inactive citalopram 20 mg tablet RxNorm: 697278 TAKE ONE (1) TABLET BY MOUTH DAILY 04/27/2015 07/25/2015 In active Generic For:CELEXA 20MG TAB 04/26/2015 7:30:08 PM gabapentin 300 mg ca psule RxNorm: 280050 1 Capsule(s) PO QID 04/09/2015 04/02/2016 Inactive citalopram 20 mg tablet RxNorm: 429944 TAKE ONE (1) TABLET BY MOUTH DAILY 01/26/2015 04/25/2015 In active Generic For:CELEXA 20MG TAB 01/26/2015 8:40:11 AM losartan 100 mg tablet RxNorm: 488893 1 Tablet, 1 time per Day 01/26/2015 03/29/2015 Inactive INSURANCE WILL NOT COVER A[place]LA ANDREWS UNTIL OTHER FORMULARIES HAVE BEEN TRIED AND FAILED hydrocodone 7.5 mg-a cetaminophen 325 mg tablet RxNorm: 165039 1-2 Tablet(s) PO Q4H as needed 01/23/2015 05/10/2015 Inactive Neurontin 100 mg cap almaz RxNorm: 661764 1 Capsule(s) PO TID 01/14/2015 03/09/2015 Inactive Neurontin 100 mg cap almaz RxNorm: 617154 1 Capsule(s) PO TID 01/14/2015 01/13/2015 Inactive Keflex 500 mg capsule RxNorm: 412046 1 Capsule(s) PO TID 01/06/2015 01/05/2015 Inactive Keflex 500 mg capsule RxNorm: 563528 1 Capsule(s) PO TID 01/06/2015 01/12/2015 Inactive hydrocodone 7.5 mg-a cetaminophen 325 mg tablet RxNorm: 905817 1-2 Tablet(s) PO Q4H as needed 12/29/2014 01/22/2015 Inactive Duexis 800 mg-26.6 m g tablet RxNorm: 6884882 1 Tablet(s) PO TID a s needed 12/19/2014 03/29/2015 In active Duexis 800 mg-26.6 m g tablet RxNorm: 9238793 1 Tablet(s) PO TID a s needed 12/19/2014 12/18/2014 In active Kenalog 40 mg/mL [place] pension for injection RxNorm: 5573653 1 Milliliter(s) Inj 12/09/2014 12/09/2014 In active prednisone 10 mg tab lets in a dose pack RxNorm: 267896 1 Tablet(s) PO UD 12/09/2014 12/14/2014 In active 6-5-4-3-2-1 amlodipine 10 mg tablet RxNorm: 521052 1 Tablet(s) PO daily 11/13/2014 11/07/2015 Inactive citalopram 20 mg tablet RxNorm: 990088 TAKE ONE (1) TABLET BY MOUTH DAILY 10/23/2014 01/20/2015 In active Generic For:CELEXA 20MG TAB 10/23/2014 4:32:02 PM N O T I C E PRESCRIPTION PREVIOUSLY AUTHORIZED BY DOCTOR:SWATI BEY hydrocodone 7.5 mg-a cetaminophen 325 mg tablet RxNorm: 796310 1-2 Tablet(s) PO Q4H as needed 10/22/2014 12/28/2014 Inactive Synthroid 75 mcg tablet RxNorm: 475434 TAKE 1 TABLET BY MOUTH DAILY 09/22/2014 04/19/2015 Inactive Generic For:*SYNTHROID 0.075MG TAB 04/2014 10:00:02 AM N O T I C E PRESCRIPTION PREVIOUSLY AUTHORIZED BY DOCTOR:SWATI BEY amlodipine 5 mg tablet RxNorm: 261297 1 Tablet(s) PO daily 08/25/2014 11/12/2014 Inactive Synthroid 75 mcg tablet RxNorm: 928388 1 Tablet(s) PO daily ecept a 1/2 tab on Monday07/11/2014 09/21/2014 Inactive Flonase Allergy Reli ef 50 mcg/actuation nasal spray,suspension RxNorm: 1 [place] NASAL BID 07/10/2014 12/06/2014 Inactive methotrexate sodium 2.5 mg tablet RxNorm: 686935 3 Tablet(s) PO weekly No Start Date 04/08/2015 Inactive Aldactone 25 mg tablet RxNorm: 078781 1 Tablet(s) PO daily No Start Date 03/26/2018 Inactive gabapentin 300 mg ca psule RxNorm: 984130 1 Capsule(s) PO TID No Start Date 04/08/2015 Inactive Plaquenil 200 mg tablet RxNorm: 492811 1 Tablet(s) PO BID No Start Date 05/22/2016 Inactive losartan 100 mg tablet RxNorm: 589703 1 Tablet(s) PO daily No Start Date 01/25/2015 Inactive Benicar 20 mg tablet RxNorm: 727938 1 Tablet(s) PO daily No Start Date 05/07/2018 Inactive Remicade intravenous RxNorm: 716271 intravenous No Start Date 03/23/2017 Inactive amlodipine 5 mg tablet RxNorm: 320056 1 Tablet(s) PO daily No Start Date 08/24/2014 Inactive Celebrex 200 mg capsule RxNorm: 816983 1 Capsule(s) PO daily No Start Date 10/16/2017 Inactive citalopram 20 mg tablet RxNorm: 025580 1 Tablet(s) PO daily No Start Date 10/22/2014 Inactive Synthroid 88 mcg tablet RxNorm: 548436 1 Tablet(s) PO daily No Start Date 07/09/2014 Inactive Arava 20 mg tablet RxNorm: 510087 1 Tablet(s) PO daily No Start Date 01/01/2018 Inactive Lipitor 40 mg tablet RxNorm: 206175 1 Tablet(s) PO daily No Start Date 05/13/2015 Inactive chlorthalidone 25 mg tablet RxNorm: 512561 1 Tablet(s) PO daily No Start Date 03/26/2018 Inactive Synthroid 75 mcg tablet RxNorm: 946857 1 Tablet(s) PO daily No Start Date 07/10/2014 Inactive hydrocodone 7.5 mg-a cetaminophen 325 mg tablet RxNorm: 736040 Tablet(s) PO as neede d No Start Date 10/21/2014 Inactive Medication Administered Medication Codes Instruc tions Start Date Status Kenalog 40 mg/mL suspension for injection RxNorm: 9489481 1Milliliter 08/08/2016 N o longer Active Kenalog 40 mg/mL suspension for injection RxNorm: 9728761 1Milliliter 12/09/2014 N o longer Active Immunizations Vaccine Codes Date Status SHINGARIX CVX: 121 08/02 completed SHINGARIX CVX: 121 04/05 completed Assessments Condition Codes Effectiv e Dates Atrophy of thyroid (acquired) ICD-10 : E03.4 ICD-9: 244.8 10/01/2018 Mixed hyperlipidemia ICD-10: E78.2 ICD-9: 272.2 10/01/2018 Other specified disorders of bone, other site ICD-10: M89.8X8 ICD-9: 733.90 10/01/2018 Essential (primary) hypertension ICD -10: I10 ICD-9: 401.1 10/01/2018 Other abnormal and inconclusive findings on [...] hip ICD- 10: M70.62 ICD-9: 726.5 12/16/2014 Carpal tunnel syndrome, unspecified upper limb ICD-10: G56.00 ICD-9: 354.0 11/13/2014 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 condition with depressive features ICD-10: F06.31 ICD-9: 311 11/13/2014 ESSENTIAL HYPERTENSION ICD-9: 401.9 07/10/2014 DEPRESSIVE [...] Item Item Code Result Date Comp Metabolic Hxb569 NA 134 mEq/L 10/02/2018 Comp Metabolic Brj821 K 4.4 mEq/L 10/02/2018 Comp Metabolic Fxl508 CL 97 mEq/L 10/02/2018 Comp Metabolic Slj597 CO2 30.0 mEq/L 10/02/2018 Comp Metabolic Kay085 AN ION GAP 11 10/02/2018 Comp Metabolic Jea366 GL UCOSE 97 mg/dL 10/02/2018 Comp Metabolic Ytr380 Cr eat 1.0 mg/dL 10/02/2018 Comp Metabolic Byq603 eG FR 60 ml/min/1.73m2 10/02 Comp Metabolic Bfy785 BUN 15 mg/dL 10/02/2018 Comp Metabolic Cpv701 B/ C Ratio 15.3 Ratio 10/02/2018 Comp Metabolic Xvs771 CA LCIUM 9.8 mg/dL 10/02/2018 Comp Metabolic Gqa244 AL K PHOS 91 U/L 10/02/2018 Comp Metabolic Xfs961 T(SGOT) 14 U/L 10/02/2018 Comp Metabolic Aeg318 AL T(SGPT) 11 U/L 10/02/2018 Comp Metabolic Nom483 BI LI T 0.5 mg/dL 10/02/2018 Comp Metabolic Xeu790 AL BUMIN 4.3 g/dL 10/02/2018 Comp Metabolic Mwe892 TP RO 6.8 g/dL 10/02/2018 Comp Metabolic Epb206 GL OB 2.5 g/dL 10/02/2018 Comp Metabolic Kss152 A/ G Ratio 1.7 Ratio 10/02/2018 Comp Metabolic Etw130 Os mo 269 mOsmo 10/02/2018 Vitamin D 25 Oh Fxb6552 VITAMIN D, 25 HYDROXY 23.30 ng/mL 10/02/2018 Free T4 Ufn078 FREE T4 1.08 ng/dL 10/02/2018 Lipid Ord30 CHOL 394 mg/dL 10/02/2018 Lipid Ord30 HDL 60.0 mg/dl 10/02/2018 Lipid Ord30 TRIG 253 mg/dL 10/02/2018 Lipid Ord30 LDL 283 mg/dL 10/02/2018 Lipid Ord30 C/HDL 6.6 Ratio 10/02/2018 Tsh Ord6 TSH (3rd IS) 2.00 uIU/mL 10/02/2018 Free T4 Jol127 FREE T4 0.86 ng/dL 05/07/2018 Comp Metabolic Uir106 NA 138 mEq/L 05/07/2018 Comp Metabolic Vwn634 K 4.2 mEq/L 05/07/2018 Comp Metabolic Iao515 CL 104 mEq/L 05/07/2018 Comp Metabolic Mzj944 CO2 28.0 mEq/L 05/07/2018 Comp Metabolic Yka484 AN ION GAP 10 05/07/2018 Comp Metabolic Tem408 GL UCOSE 108 mg/dL 05/07/2018 Comp Metabolic Syx090 Cr eat 0.9 mg/dL 05/07/2018 Comp Metabolic Kep074 eG FR 71 ml/min/1.73m2 05/07 Comp Metabolic Tsj553 BUN 15 mg/dL 05/07/2018 Comp Metabolic Pph826 B/ C Ratio 17.6 Ratio 05/07/2018 Comp Metabolic Iwg616 CA LCIUM 9.5 mg/dL 05/07/2018 Comp Metabolic Rac082 AL K PHOS 100 U/L 05/07/2018 Comp Metabolic Zmz729 T(SGOT) 17 U/L 05/07/2018 Comp Metabolic Eiw430 AL T(SGPT) 11 U/L 05/07/2018 Comp Metabolic Blg191 BI LI T 0.4 mg/dL 05/07/2018 Comp Metabolic Zzh870 AL BUMIN 3.9 g/dL 05/07/2018 Comp Metabolic Szy381 TP RO 6.3 g/dL 05/07/2018 Comp Metabolic Ond140 GL OB 2.4 g/dL 05/07/2018 Comp Metabolic Zbc608 A/ G Ratio 1.6 Ratio 05/07/2018 Comp Metabolic Guv347 Os mo 277 mOsmo 05/07/2018 Cbc With [...] 31.6 % 05/07/2018 Cbc With Differential Ord2 Coal% 9.7 % 05/07/2018 Cbc With Differential Ord2 MCH 28.9 pg 05/07/2018 Cbc With Differential Ord2 MCHC 32.2 pg 05/07/2018 Cbc With Differential Ord2 Eos% 2.3 % 05/07/2018 Cbc With Differential Ord2 Baso% 0.6 % 05/07/2018 Cbc With Differential Ord2 PLT 253 K/ul 05/07/2018 Cbc With Differential Ord2 Neut ABS# 3.57 K/ul 05/07/2018 Cbc With Differential Ord2 RDW 13.6 % 05/07/2018 Cbc With Differential Ord2 Lymph ABS# 2.02 K/ul 05/07/2018 Cbc With Differential Ord2 Coal ABS# 0.6 K/ul 05/07/2018 Cbc With Differential [...] 31.1 pg 12/26/2017 Cbc With Differential Ord2 Coal% 9.2 % 12/26/2017 Cbc With Differential Ord2 [...] 1.53 K/ul 12/26/2017 Cbc With Differential Ord2 Coal ABS# 0.7 K/ul 12/26/2017 Cbc With Differential Ord2 Eos ABS# 0.1 K/ul 12/26/2017 Cbc With Differential Ord2 Baso ABS# 0.0 K/ul 12/26/2017 Free T4 Xmg661 FREE T4 0.93 ng/dL 12/26/2017 Comp Metabolic Ppj592 NA 135 mEq/L 12/26/2017 Comp Metabolic Dfw671 K 4.4 mEq/L 12/26/2017 Comp Metabolic Gjt725 CL 98 mEq/L 12/26/2017 Comp Metabolic Znu669 CO2 28.0 mEq/L 12/26/2017 Comp Metabolic Vok766 AN ION GAP 13 12/26/2017 Comp Metabolic Hnv284 GL UCOSE 92 mg/dL 12/26/2017 Comp Metabolic Iwz176 Cr eat 1.1 mg/dL 12/26/2017 Comp Metabolic Nap541 eG FR 52 ml/min/1.73m2 12/26 Comp Metabolic Aje599 BUN 25 mg/dL 12/26/2017 Comp Metabolic Dpo365 B/ C Ratio 22.7 Ratio 12/26/2017 Comp Metabolic Xfp820 CA LCIUM 9.8 mg/dL 12/26/2017 Comp Metabolic Zku467 AL K PHOS 91 U/L 12/26/2017 Comp Metabolic Ttt539 T(SGOT) 16 U/L 12/26/2017 Comp Metabolic Vmd193 AL T(SGPT) 12 U/L 12/26/2017 Comp Metabolic Ldk535 BI LI T 0.5 mg/dL 12/26/2017 Comp Metabolic Uig983 AL BUMIN 4.3 g/dL 12/26/2017 Comp Metabolic Dej979 TP RO 6.8 g/dL 12/26/2017 Comp Metabolic Uwn591 GL OB 2.5 g/dL 12/26/2017 Comp Metabolic Xyq839 A/ G Ratio 1.7 Ratio 12/26/2017 Comp Metabolic Emu530 Os mo 274 mOsmo 12/26/2017 Urine Culture Ucult Prel iminary NO Growth Day 1 06/29 Urine Culture Ucult Comp lete NO Growth Day 2 06/29 Culture Urine [id number] URI NE CULTURE SEE NOTES 04/22/2016 Culture Urine [id number] Con tinued Results 04/22/2016 Urine Culture Ucult Comp lete >100,000 col/ml aerobic grow th sent to ref lab 04/20/2016 Comp Metabolic Zdh445 NA 137 mEq/L 02/10/2016 Comp Metabolic Avn246 K 4.1 mEq/L 02/10/2016 Comp Metabolic Tqw113 CL 102 mEq/L 02/10/2016 Comp Metabolic Ehz639 CO2 28.0 mEq/L 02/10/2016 Comp Metabolic Yzr374 AN ION GAP 11 02/10/2016 Comp Metabolic Tpa611 GL UCOSE 104 mg/dL 02/10/2016 Comp Metabolic Eok280 Cr eat 0.7 mg/dL 02/10/2016 Comp Metabolic Nnx284 eG FR 83 ml/min/1.73m2 02/09 Comp Metabolic Edl872 BUN 14 mg/dL 02/10/2016 Comp Metabolic Pzt442 B/ C Ratio 18.9 Ratio 02/10/2016 Comp Metabolic Pir301 CA LCIUM 9.7 mg/dL 02/10/2016 Comp Metabolic Qzz233 AL K PHOS 121 U/L 02/10/2016 Comp Metabolic Akt511 T(SGOT) 19 U/L 02/10/2016 Comp Metabolic Sgd450 AL T(SGPT) 13 U/L 02/10/2016 Comp Metabolic Eyi705 BI LI T 0.5 mg/dL 02/10/2016 Comp Metabolic Xlb675 AL BUMIN 4.3 g/dL 02/10/2016 Comp Metabolic Eat370 TP RO 6.8 g/dL 02/10/2016 Comp Metabolic Pxp781 GL OB 2.5 g/dL 02/10/2016 Comp Metabolic Qur796 A/ G Ratio 1.7 Ratio 02/10/2016 Comp Metabolic Xkj143 Os mo 275 mOsmo 02/10/2016 Lipid Ord30 CHOL 229 mg/dL 02/10/2016 Lipid Ord30 HDL 59.0 mg/dl 02/10/2016 Lipid Ord30 TRIG 252 mg/dL 02/10/2016 Lipid Ord30 LDL 120 mg/dL 02/10/2016 Lipid Ord30 C/HDL 3.9 Ratio 02/10/2016 Free T4 Ayh045 FREE T4 0.87 ng/dL 02/10/2016 Tsh Ord6 [...] 29.2 pg 02/10/2016 Cbc With Differential Ord2 Coal% 18.6 % 02/10/2016 Cbc With Differential Ord2 [...] 1.81 K/ul 02/10/2016 Cbc With Differential Ord2 Coal ABS# 1.1 K/ul 02/10/2016 Cbc With Differential Ord2 Eos ABS# 0.1 K/ul 02/10/2016 Cbc With Differential Ord2 Baso ABS# 0.1 K/ul 02/10/2016 Tsh Ord6 hTSH II 0.85 uIU/mL 04/02/2015 Lipid Ord30 CHOL 207 mg/dL 04/02/2015 Lipid Ord30 HDL 68.0 mg/dl 04/02/2015 Lipid Ord30 TRIG 193 mg/dL 04/02/2015 Lipid Ord30 LDL 100 mg/dL 04/02/2015 Lipid Ord30 C/HDL 3.0 Ratio 04/02/2015 Free T4 Pxv184 FREE T4 1.09 ng/dL 04/02/2015 Free T4 Mwu857 FREE T4 0.82 ng/dL 10/15/2014 Tsh Ord6 [...] clear 10/01/2018 None Full Exam - General 1995 Ears/Nose/Throat [...] clear 05/08/2018 None Full Exam - General 1995 Ears/Nose/Throat [...] 1994 Musculoskeletal digits and nails PIPs: first 05/08/2018 None Full Exam - General 1994 Musculoskeletal digits and nails PIPs: second 05/08/2018 [...] General 1995 Ears/Nose/Throat lips/teeth/gingiva Overall: benign lips 03/27/2018 None Full Exam - General 1995 Ears/Nose/Throat lips/teeth/gingiva Overall: normal dentition 03/27/2018 None Full Exam - General 1995 Ears/Nose/Throat oral cavity/pharynx/larynx Overall: oral mucosa clear 03/27/2018 None Full Exam - General 1994 Ears/Nose/Throat oral cavity/pharynx/larynx Overall: oropharyngeal mucosa clear 03/27/2018 None Full Exam - General 1995 Ears/Nose/Throat oral cavity/pharynx/larynx Overall: hypopharynx benign 03/27/2018 None Full Exam - General 1995 Ears/Nose/Throat oral cavity/pharynx/larynx Overall: no masses 03/27/2018 [...] hyperactive 09/27/2017 None Full Exam - General 1995 Lymphatic neck nodes Overall: anterior cervical chain benign 09/27/2017 None Full Exam - General 1995 Lymphatic [...] 1995 Ears/Nose/Throat oral cavity/pharynx/larynx Overall: hypopharynx benign 02/23/2016 [...] 1: 146/80 Code: 8480-6 BMI: 31.9 Code: 26381-6 Heart Rate 1: 80 bpm Height: 5'4" SpO2: 97% Weight: 186 lbs 06/12/2018 Blood Pressure 1: 124/74 Code: 8480-6 BMI: 31.6 Code: 33148-3 Heart Rate 1: 55 bpm Height: 5'4" SpO2: 99% Weight: 184 lbs 05/08/2018 Blood Pressure 1: 148/84 Code: 8480-6 BMI: 31.8 Code: 56325-2 Heart Rate 1: 60 bpm Height: 5'4" SpO2: 96% Weight: 185 lbs 03/27/2018 Blood Pressure 1: 142/84 Code: 8480-6 BMI: 31.2 Code: 87607-5 Heart Rate 1: 75 bpm Height: 5'4" SpO2: 97% Weight: 182 lbs 01/02/2018 Blood Pressure 1: 136/68 Code: 8480-6 BMI: 32.4 Code: 01954-4 Heart Rate 1: 80 bpm Height: 5'4" SpO2: 99% Waist Measure (cm): 104 cm Weight: 189 lbs 12/26/2017 Blood Pressure 1: 138/72 Code: 8480-6 BMI: 31.4 Code: 61856-8 Heart Rate 1: 72 bpm Height: 5'4" SpO2: 96% Weight: 183 lbs 10/17/2017 Blood Pressure 1: 156/72 Code: 8480-6 BMI: 31.4 Code: 49406-8 Heart Rate 1: 81 bpm Height: 5'4" SpO2: 98% Temperature: 36.5 (C ) / 97.7 (F) Weight: 183 lbs 09/27/2017 Blood Pressure 1: 140/82 Code: 8480-6 BMI: 32.1 Code: 66411-8 Heart Rate 1: 82 bpm Height: 5'4" SpO2: 98% Weight: 187 lbs 07/31/2017 Blood Pressure 1: 138/82 Code: 8480-6 Heart Rate 1: 87 bpm SpO2: 99% 03/24/2017 Blood Pressure 1: 146/86 Code: 8480-6 BMI: 31.8 Code: 47574-1 Heart Rate 1: 79 bpm Height: 5'4" SpO2: 96% Temperature: 36.4 (C ) / 97.5 (F) Weight: 185 lbs 08/30/2016 Blood Pressure 1: 142/88 Code: 8480-6 BMI: 31.6 Code: 57226-5 Heart Rate 1: 80 bpm Height: 5'4" SpO2: 93% Weight: 184 lbs 08/08/2016 Blood Pressure 1: 142/76 Code: 8480-6 BMI: 29.9 Code: 08573-9 Heart Rate 1: 80 bpm Height: 5'4" SpO2: 94% Weight: 174 lbs 06/27/2016 Blood Pressure 1: 156/72 Code: 8480-6 BMI: 30.6 Code: 86370-1 Heart Rate 1: 78 bpm Height: 5'4" SpO2: 95% Weight: 178 lbs 05/23/2016 Blood Pressure 1: 146/84 Code: 8480-6 Heart Rate 1: 66 bpm Height: 5'4" SpO2: 94% 04/18/2016 Blood Pressure 1: 148/84 Code: 8480-6 BMI: 30.2 Code: 28107-3 Heart Rate 1: 81 bpm Height: 5'4" SpO2: 97% Weight: 176 lbs 03/07/2016 Blood Pressure 1: 130/78 Code: 8480-6 BMI: 30.0 Code: 19988-7 Heart Rate 1: 85 bpm Height: 5'4" SpO2: 96% Weight: 175 lbs 02/23/2016 Blood Pressure 1: 140/78 Code: 8480-6 BMI: 29.7 Code: 99928-4 Heart Rate 1: 74 bpm Height: 5'4" SpO2: 95% Weight: 173 lbs 09/15/2015 Blood Pressure 1: 140/88 Code: 8480-6 BMI: 29.4 Code: 14877-0 Heart Rate 1: 81 bpm Height: 5'4" SpO2: 97% Weight: 171 lbs 8 oz 05/26/2015 Blood Pressure 1: 150/80 Code: 8480-6 BMI: 31.6 Code: 36632-4 Heart Rate 1: 70 bpm Height: 5'4" SpO2: 96% Weight: 184 lbs 04/09/2015 Blood Pressure 1: 136/74 Code: 8480-6 BMI: 31.4 Code: 77038-5 Heart Rate 1: 91 bpm Height: 5'4" SpO2: 94% Weight: 183 lbs 03/30/2015 Blood Pressure 1: 130/72 Code: 8480-6 BMI: 30.9 Code: 97873-6 Heart Rate 1: 80 bpm Height: 5'4" SpO2: 97% Waist Measure (cm): 102 cm Weight: 180 lbs 03/10/2015 Blood Pressure 1: 152/80 Code: 8480-6 BMI: 31.1 Code: 21517-2 Heart Rate 1: 66 bpm Height: 5'4" SpO2: 98% Weight: 181 lbs 12/16/2014 Blood Pressure 1: 132/88 Code: 8480-6 Blood Pressure 1: 132/88 Code: 8480-6 Heart Rate 1: 88 bpm SpO2: 98% Weight: 183 lbs 12/09/2014 Blood Pressure 1: 140/82 Code: 8480-6 BMI: 31.2 Code: 38781-0 Heart Rate 1: 105 bpm Height: 5'4" SpO2: 93% Weight: 182 lbs 11/13/2014 Blood Pressure 1: 148/88 Code: 8480-6 BMI: 31.8 Code: 58868-5 Heart Rate 1: 54 bpm Height: 5'4" SpO2: 98% Weight: 185 lbs 07/10/2014 Blood Pressure 1: 144/96 Code: 8480-6 BMI: 31.4 Code: 22805-3 Heart Rate 1: 99 bpm Height: 5'4" [...] frantz sary hypertension 09/27/2017 None hypothyroid 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 P ATIENT, LEVEL IV Diagnosis: Essential (primary) hypertension[ICD10: I10] Diagnosis: Mixed hyperlipidemia[ICD10: E78.2] Diagnosis: Atrophy of thyroid (acquired)[ICD10: E03.4] Diagnosis: Other specified disorders of bone, other site[ICD10: M89.8X8] Shannon Falk MD, [facility] CPT-4: 04003 10/01/2018 ([id number]) 07558 EST. P ATIENT, LEVEL III Diagnosis: Essential (primary) hypertension[ICD10: I10] Diagnosis: Atrophy of thyroid (acquired)[ICD10: E03.4] Shannon Falk MD, C CPT-4: 75287 06/12/2018 ([id number]) 71905 EST. P ATIENT, LEVEL IV Diagnosis: Essential (primary) hypertension[ICD10: I10] Diagnosis: Atrophy of thyroid (acquired)[ICD10: E03.4] Diagnosis: Mixed hyperlipidemia[ICD10: E78.2] Shannon Falk MD, [facility] CPT- 4: 70795 05/08/2018 ([id number]) 97931 EST. P ATIENT, LEVEL III Diagnosis: Hypo-osmolality and hyponatremia[ICD10: E87.1] Shannon Falk MD, C CPT-4: 78524 03/27/2018 ([id number]) 01208 EST. P ATIENT, LEVEL IV Diagnosis: Atrophy of thyroid (acquired)[ICD10: E03.4] Diagnosis: Essential (primary) hypertension[ICD10: I10] Diagnosis: 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[ICD10: M05.741] Diagnosis: 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[ICD10: M05.742] Diagnosis: Pain in thoracic spine[ICD10: M54.6] Shannon Falk MD, [facility] CPT-4: 11616 12/26/2017 ([id number]) 30021 EST. P ATIENT, LEVEL III Diagnosis: Otalgia, left ear[ICD10: H92.02] Diagnosis: Essential (primary) hypertension[ICD10: I10] Elizabet Falk MD, [facility] CPT-4: 79264 10/17/2017 ([id number]) 28127 EST. P ATIENT, LEVEL IV Diagnosis: 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[ICD10: M05.741] Diagnosis: 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[ICD10: M05.742] Diagnosis: Atrophy of thyroid (acquired)[ICD10: E03.4] Diagnosis: Essential (primary) hypertension[ICD10: I10] Shannon Falk MD, C CPT-4: 03834 09/27/2017 ([id number]) Miscellaneou s no charge Diagnosis: Essential (primary) hypertension[ICD10: I10] Elizabet Falk MD, [facility] CPT-4: 89824 07/31/2017 ([id number]) 94111 EST. P ATIENT, LEVEL IV Diagnosis: Essential (primary) hypertension[ICD10: I10] Diagnosis: Atrophy of thyroid (acquired)[ICD10: E03.4] Diagnosis: 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[ICD10: M05.741] Diagnosis: 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[ICD10: M05.742] Shannon Falk MD, [facility] CPT-4: 13967 03/24/2017 ([id number]) 10215 EST. P ATIENT, LEVEL IV Diagnosis: Atrophy of thyroid (acquired)[ICD10: E03.4] Diagnosis: Pleurisy[ICD10: R09.1] Diagnosis: Essential (primary) hypertension[ICD10: I10] Shannon Falk MD, C CPT-4: 86812 08/30/2016 ([id number]) 40585 EST. P ATIENT, LEVEL III Diagnosis: Pleurisy[ICD10: R09.1] Elizabet Falk MD, [facility] CPT-4: 70267 08/08/2016 80472 EST. PATIENT, LEVEL III Diagnosis: Dysuria[ICD10: R30.0] Diagnosis: Other pruritus[ICD10: L29.8] Shila Falk MD, [facility] CPT-4: 51152 06/27/2016 ([id number]) 65235 EST. P ATIENT, LEVEL III Diagnosis: Pain in left foot[ICD10: M79.672] Diagnosis: Pain in left toe(s)[ICD10: M79.675] Elizabet Falk MD, [facility] CPT-4: 48302 05/23/2016 79224 EST. PATIENT, LEVEL III Diagnosis: Candidiasis of vulva and vagina[ICD10: B37.3] Diagnosis: Dysuria[ICD10: R30.0] Shila Falk MD, [facility] CPT-4: 97876 04/18/2016 30756 EST. PATIENT, LEVEL III Diagnosis: Other pruritus[ICD10: L29.8] Diagnosis: Candidiasis of vulva and vagina[ICD10: B37.3] Shila Falk MD, [facility] CPT-4: 64426 03/07/2016 ([id number]) 24825 EST. P ATIENT, LEVEL IV Diagnosis: Essential (primary) hypertension[ICD10: I10] Diagnosis: Pain in left hip[ICD10: M25.552] Diagnosis: Pain in right hip[ICD10: M25.551] Diagnosis: Functional diarrhea[ICD10: K59.1] Diagnosis: Atrophy of thyroid (acquired)[ICD10: E03.4] Shannon Falk MD, [facility] CPT-4: 66224 02/23/2016 ([id number]) 66517 EST. P ATIENT, LEVEL IV Diagnosis: Essential (primary) hypertension[ICD10: I10] Diagnosis: Mixed hyperlipidemia[ICD10: E78.2] Diagnosis: Major depressive disorder, single episode, unspecified[ICD10: F32.9] Shannon Falk MD, [facility] CPT-4: 72627 09/15/2015 26339 EST. PATIENT, LEVEL III Diagnosis: Rash and other nonspecific skin eruption[ICD10: R21] Shila Falk MD, [facility] CPT-4: 70265 05/26/2015 ([id number]) 49455 EST. P ATIENT, LEVEL IV Diagnosis: Essential (primary) hypertension[ICD10: I10] Diagnosis: Foot drop, left foot[ICD10: M21.372] Diagnosis: Sacroiliitis, not elsewhere classified[ICD10: M46.1] Shannon Falk MD, [facility] CPT-4: 18329 04/09/2015 ([id number]) 14455 EST. 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 P ATIENT, LEVEL III Diagnosis: Trochanteric bursitis, left hip[ICD10: M70.62] Diagnosis: Iliotibial band syndrome, left leg[ICD10: M76.32] Diagnosis: Sciatica, left side[ICD10: M54.32] Elizabet Falk MD, [facility] CPT-4: 31593 12/16/2014 ([id number]) 14204 EST. P ATIENT, LEVEL III Diagnosis: Sciatica, left side[ICD10: M54.32] Diagnosis: Sacroiliitis, not elsewhere classified[ICD10: M46.1] Elizabet Falk MD, [facility] CPT-4: 35057 12/09/2014 ([id number]) 22758 EST. 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] Diagnosis: Carpal tunnel syndrome, unspecified upper limb[ICD10: G56.00] Shannon Falk MD, [facility] CPT-4: 23184 11/13/2014 ([id number]) OFFICE VISI T, NEW - LEVEL 4 Diagnosis: ESSENTIAL HYPERTENSION[ICD9: 401.9] Diagnosis: HYPERLIPIDEMIA[ICD9: 272.4] Diagnosis: DEPRESSIVE DISORDER NEC[ICD9: 311] Diagnosis: Diarrhea[ICD9: 787.91] [facility] CPT-4: 11651 07/10/2014 Plan of Care Planned Activity Notes C odes Status Date Appointment: Shannon Falk WPtel: [phone] [facility] (15 min) Moderate 10/17/2018 Visit Plan: Hypertension - well con laura [...] back pain. 10/01/2018 Appointment: Shannon Falk WPtel: [phone] [facility] (15 min) Moderate 10/01/2018 Patient Education: Patient Medication Summary Completed 10/01/2018 Patient Education: Cholesterol Management Completed 10/01/2018 Patient Education: Patient Medication Summary Completed 08/03/2018 Visit Plan: Hypertension - well ludwin sanchez - continue with current medications, continue [...] control. 06/12/2018 Appointment: Shannon Falk WPtel: [phone] [facility] (15 min) Moderate 06/12/2018 Patient Education: Patient Medication Summary Completed 06/12/2018 Patient Education: Hypertension Completed 06/12/2018 Visit Plan: Hypertension - well con troyaeled - continue with current medications, continue with [...] control. 05/08/2018 Appointment: Shannon Falk WPtel: [phone] [facility] [place] (15 min) Moderate 05/08/2018 Patient Education: Patient Medication Summary Completed 05/08/2018 Patient Education: Hypertension Completed 05/08/2018 [facility]ment: [phone] [place] ([facility] min) Moderate 03/28/2018 Visit Plan: Hyponatremia - continue with current treatment - gatorade/powerade, monitor electrolytes. 03/27/2018 Appointment: [phone] (15 min) Moderate 03/27/2018 Patient Education: Patient Medication Summary Completed 03/27/2018 Patient Education: Patient Medication Summary Completed 02/01/2018 [place] [phone] (15 min) Moderate 01/22/2018 Patient Education: Patient [...] surrogate. 01/02/2018 Appointment: [id number] [facility] - Annual Wellness Visit 01/02/2018 [...] of control. 12/26/2017 Appointment: Shannon Falk WPtel: [phone] [facility] (15 min) Moderate 12/26/2017 Patient Education: Patient [...] plan. 10/17/2017 Appointment: Elizabet Donaldson WPtel: [phone] [facility] [place] (15 min) Moderate 10/17/2017 Patient Education: [...] home. 09/27/2017 Appointment: [phone] [place] (15 min) Moderate 09/27/2017 Patient Education: Patient Medication Summary Completed 09/27/2017 Care Plan: Referral Order SNOMED-CT : [id number] Pending 09/27/2017 Appointment: Shannon [phone] [place] (15 min) Moderate 09/21/2017 Appointment: Nurse [...] twice daily. 03/24/2017 Appointment: Shannon [phone] [place] (15 min) Moderate 03/24/2017 Patient Education: Patient Medication Summary Completed 03/24/2017 Appointment: Shannon Falk WPtel: [phone] [facility] (15 min) Moderate 03/16/2017 Appointment: Shannon Falk WPtel: [facility] (15 min) Moderate 03/01/2017 Visit Plan: Hypertension - well con laura [...] based on previous levels of control. P leurisy - continue with supportive care. 08/30/2016 Appointment: Shannon Falk WPtel: [facility] (15 min) Moderate 08/30/2016 Patient Education: Patient [...] of plan. 08/08/2016 Appointment: Elizabet Donaldson WPtel: [address] [place], [place] [id number] (30 min) Complex 08/08/2016 Patient Education: Patient Medication Summary Completed 08/08/2016 Referral: Delia Bernstein WPtel: [address] [place], [place] [phone] Referral Initiated 08/01/2016 Visit Plan: Vaginal yeast [...] recurrent symptoms - will refer. 06/27/2016 Appointment: Mikie Shila [facility]el[phone] [place] (30 min) Complex 06/27/2016 Patient Education: Patient Medication Summary Completed 06/27/2016 Care Plan: Referral Order SNOMED-CT : [id number] Pending 06/27/2016 Visit Plan: Left foot, 1st and 2nd toe pain-suspect fracture of left great toe-will obtain xrays and proceed as indicated. Patient verbalized understanding of plan. 05/23/2016 Appointment: Elizabet Donaldson [facility]Ptel[phone] [facility] [place] (15 min) Moderate 05/23/2016 Patient Education: [...] start probiotics 02/23/2016 Appointment: Shannon [phone] [place] (15 min) Moderate 02/23/2016 Patient Education: Patient Medication Summary Completed 02/23/2016 Patient Education: Hypertension Completed 02/23/2016 Visit Plan: Hypertension - well con trolled [...] Summary Completed 09/15/2015 Appointment: Shannon Falk WPtel: [address] [place] [id number] (15 min) Moderate 07/29/2015 Visit Plan: Rash [...] - vitamin B12 liquid 2000mcg daily - [facility] sells the liquid b12, folic acid - take daily. metanex 1 capsule twice daily - call office if this seems to help decrease nerve pain increase the night-time dosing of gabapentin to 300mg in AM, Noon, 6pm and 10pm 04/09/2015 Appointment: Shannon [phone] (15 min) Moderate 04/09/2015 Patient Education: Patient [...] in 2012. 03/10/2015 Appointment: Shannon [phone] (15 min) Moderate 03/10/2015 Patient Education: Patient Medication Summary Completed 03/10/2015 Care Plan: SCREENINGMAMMOGRAPHYDIGITAL LOINC : 08186-2 Ordered 03/10/2015 Care Plan: Referral Order SNOMED-CT : [id number] Ordered 03/10/2015 Care Plan: Referral Order SNOMED-CT : [id number] Ordered 03/10/2015 Visit Plan: Left hip bursitis/Iliot [...] Medication Summary Completed 12/16/2014 Patient Education: .[employer] lliot ibial Band Rehabilitation exercises Completed 12/16/2014 Patient Education: .atCollab Exercise for Sciati ca Completed 12/16/2014 Care Plan: Referral Order SNOMED-CT : [id number] Ordered 12/16/2014 Visit Plan: Sacroiliitis - back [...] Patient Medication Summary Completed 12/09/2014 Patient Education: .atCollab Exercise for Sciati ca Completed 12/09/2014 Visit [...] brace. 11/13/2014 Appointment: Shannon Falk WPtel: [phone] [facility] [place] Follow up 11/13/2014 Patient Education: Patient [...] WORSENS. 07/10/2014 Appointment: Shannon [phone] [place] ([place] New Patient 07/10/2014 Patient Education: Patient Medication Summary Completed 07/10/2014 Patient Education: Hypertension Completed 07/10/2014 Referral: Darci Spann Referral Relationship Referral: External, Ordering Provider Referral Appointment Requested Referral: External, Ordering Provider 09/28 Referral info faxed to [facility] 10/03 They tried calling her with an appt and she did not answer. Called patient and she will call them back. Appoint ment Requested Referral: External, Ordering Provider Referral Appointment Requested Referral: [phone] [facility] [place] Referral Initiated Referral: External, Ordering Provider Referral Completed Instructions Comment luanne gonsalves e - look up on [employer] . Hypertension - well controlled - elgin [...] for her recurrent symptoms - will refer. . Vaginal yeast infe ction - Discussed [...] Maria Ines recommended repeat scope in 2012. . Hypertension - wel l controlled - [...] allergy spray. ALIGN PROBIOTIC - TAKE DAILY (CULTURELLVideoGenie OR isocket -TWO OTHER PROBIOTICS THAT ARE HIGH QUALITY) [...] ALIGN PROBIOTIC - TAKE DAILY (CULTURELLE OR isocket -TWO OTHER PROBIOTICS THAT ARE HIGH QUALITY) CIPROFLOXACIN TO BE TAKEN IF NEEDED IF THE DIARRHEA DOES NOT IMPROVE OR IF IT WORSENS. Will give steroid sh ot today, will [...] with any concerns. dr. gely duncan - [facility] - hand specialist [...] pressure readings at home. . Hypertension - wel l controlled - [...] continue with supportive care. . Vaginal yeast infe ction - Discussed natural and expected course of this diagnosis and need to alert me if symptoms do not follow expected course, or if any worse. RX sent to patient's pharmacy. . Hypertension - wel l controlled - [...] - functional - start probiotics MONITOR BLOOD PRESSU RE AND PULSE -BRING [...] verbalized understanding of plan. . Welcome to Medicar e Exam - [...] months based on previous levels of control. Duexis 1 tab twice d aily IT [...] do not improve or if they worsen. recommend Shingles v accine . 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 qunol - co-enzyme q1 0 supplementation to [...] previous levels of control. . Hypertension - wel l controlled - [...] in dose of citalopram at this time. . Hyponatremia - con tinue with current treatment - gatorade/powerade, monitor electrolytes. vitamin B12 liquid 2 000mcg daily - [facility] sells the liquid b12 folic acid - [...] - vitamin B12 liquid 2000mcg daily - [facility] sells the liquid b12, folic acid - take daily. metanex 1 capsule twice daily - call office if this seems to help decrease nerve pain increase the night-time dosing of gabapentin to 300mg in AM, Noon, 6pm and 10pm XRAY LEFT FOOT AND T OES . Left foot, 1st and 2nd toe pain-suspec t fracture of left great toe-will obtain xrays and proceed as indicated. Patient verbalized understanding of plan. you currently have a mlodipine 5mg, increase this to two pills, use up your supply, when it is finished, refill the 10mg pill at [facility]. carpal tunnel brace . Hypertension [...]
--- OUTSIDE RECORDS SUMMARY | 2019-06-07 16:18 | XMS REPORT | CCD ---
Author Author Dalila Falk Organization Shannon Falk MD, [facility] Address [address] [place] [address] Phone Care Team Providers Care Technical Research Scientist Name Role Phone PP Unavailable CCM Unavailable Summary Purpose Interface Exchange Insurance Providers Payer name Policy type / Coverage type Covered republican ID Effective Begin Date Effective End Date WPS Medicare Part B Medicare Part B [id number] Unknown [place] [employer] Insurance M edicare Part B [id number] Unkn own Family history Brother Diagnosis Age [...] Unknown 2 07/10/[address]: 819447768 Has never smoked or chewed tobacco 07/10/2014 Alcohol history Unknown occasionally drinks alcohol 07/10/2014 Allergies, Adverse Reactions, Alerts Substance Reaction Codes Entered Date Inactivated Date Status Remicade hives RxNorm: 308756 03/24/2017 No Inactive Date Active * NO [...] Date Stop Date Sta tus Fill Instructions Vitamin D2 50,000 un it capsule RxNorm: 7700801 1 Capsule(s) PO QW 10/03/2018 12/31/2018 Active Vitamin D2 50,000 un it capsule RxNorm: 7039205 1 Capsule(s) PO QW 10/03/2018 10/02/2018 Inactive hydrocodone 7.5 mg-a cetaminophen 325 mg tablet RxNorm: 145036 1-2 Tablet(s) PO Q4H as needed 10/01/2018 10/15/2018 Active Synthroid 75 mcg tablet RxNorm: 045669 TAKE 1 TABLET BY MOUTH EVERY DAY 07/27/2018 02/21/2019 Ac tive Generic For:*SYNTHROID 0.075MG TAB 08/2018 9:45:14 AM N O T I C E Last quantity doesn't match original quantity Lipitor 20 mg tablet RxNorm: 491954 1 Tablet(s) PO QPM 05/08/2018 05/02/2019 Active Benicar 40 mg tablet RxNorm: 083612 1 Tablet(s) PO daily 05/08/2018 05/02/2019 Active Celebrex 200 mg capsule RxNorm: 343479 1 Capsule(s) PO BID 05/03/2018 04/27/2019 Active citalopram 20 mg tablet RxNorm: 795699 Tablet(s) TAKE ONE (1) TABLET BY MOUTH D AILY 05/03/2018 04/27/2019 Ac tive hydrocodone 7.5 mg-a cetaminophen 325 mg tablet RxNorm: 009276 1-2 Tablet(s) PO Q4H as needed 05/01/2018 05/15/2018 Inactive cefdinir 300 mg capsule RxNorm: 398278 1 Capsule(s) PO BID 04/17/2018 04/23/2018 Inactive cefdinir 300 mg capsule RxNorm: 782937 1 Capsule(s) PO BID 04/17/2018 04/16/2018 Inactive clobetasol 0.05 % to pical cream RxNorm: 921085 1 dime size amount Ap plication TOP daily as needed vaginal irritation 03/27/2018 07/24/2018 Inactive metoprolol succinate ER 25 mg tablet,extended release 24 hr RxNorm: 059421 1 Tablet(s) PO daily 03/27/2018 10/22/2018 Active Synthroid 75 mcg tablet RxNorm: 042177 Tablet(s) TAKE 1 TABLET BY MOUTH DAILY 02/07/2018 07/26/2018 In active Generic For:*SYNTHROID 0.075MG TAB 11/14 9:16:33 AM N O T I C E Last quantity doesn't match original quantity hydrocodone 7.5 mg-a cetaminophen 325 mg tablet RxNorm: 816575 1-2 Tablet(s) PO Q4H as needed 10/12/2017 10/26/2017 Inactive Synthroid 75 mcg tablet RxNorm: 363378 Tablet(s) TAKE 1 TABLET BY MOUTH DAILY 08/09/2017 02/06/2018 In active Generic For:*SYNTHROID 0.075MG TAB 10/22 9:16:33 AM N O T I C E Last quantity doesn't match original quantity hydrocodone 7.5 mg-a cetaminophen 325 mg tablet RxNorm: 146510 1-2 Tablet(s) PO Q4H as needed 05/22/2017 06/20/2017 Inactive amlodipine 10 mg tablet RxNorm: 312284 1 Tablet(s) PO daily 1 Tablet(s) PO ashlie y 05/09/2017 09/26/2017 In active citalopram 20 mg tablet RxNorm: 583832 Tablet(s) TAKE ONE (1) TABLET BY MOUTH D AILY 05/09/2017 05/02/2018 Inactive losartan 100 mg tablet RxNorm: 816702 1 Tablet(s) PO daily TAKE 1 TABLET BY MO UTH DAILY 05/09/2017 01/01/2018 Inactive gabapentin 300 mg ca psule RxNorm: 938552 1 Capsule(s) PO daily 03/24/2017 No Stop Date Active Celebrex 200 mg capsule RxNorm: 996941 1 Capsule(s) PO BID 1 Capsule(s) PO ashlie y 03/24/2017 03/23/2017 In active Celebrex 200 mg capsule RxNorm: 572332 1 Capsule(s) PO BID 03/24/2017 03/18/2018 Inactive amlodipine 10 mg tablet RxNorm: 060898 1 Tablet(s) PO daily 1 Tablet(s) PO ashlie y 03/24/2017 05/08/2017 In active Lipitor 40 mg tablet RxNorm: 620474 Tablet(s) TAKE ONE TABLET BY MOUTH AT BE DTIMT 02/14/2017 09/26/2017 Inactive hydrocodone 7.5 mg-a cetaminophen 325 mg tablet RxNorm: 312761 1-2 Tablet(s) PO Q4H as needed 01/16/2017 02/14/2017 Inactive scopolamine 1.5 mg t ransdermal patch (1 mg over 3 days) RxNorm: 694222 1 Patch TD Q72H 11/25/2016 12/04/2016 Inactive scopolamine 1.5 mg t ransdermal patch (1 mg over 3 days) RxNorm: 994292 1 Patch TD Q72H 11/25/2016 11/24/2016 Inactive losartan 100 mg tablet RxNorm: 957714 1 Tablet(s) PO daily TAKE 1 TABLET BY MO UTH DAILY 11/14/2016 05/08/2017 Inactive Generic For:COZAAR 100MG TA B 05/17/2016 8:31:51 AM Synthroid 75 mcg tablet RxNorm: 058371 TAKE 1 TABLET BY MOUTH DAILY 11/14/2016 06/11/2017 Inactive Generic For:*SYNTHROID 0.075MG TAB 10/22 9:16:33 AM N O T I C E Last quantity doesn't match original quantity citalopram 20 mg tablet RxNorm: 892967 TAKE ONE (1) TABLET BY MOUTH DAILY 11/14/2016 05/08/2017 In active Generic For:CELEXA 20MG TAB 11/14/2016 8:30:49 AM N O T I C E Last quantity doesn't match original quantity prednisone 10 mg tab lets in a dose pack RxNorm: 476648 1 Tablet(s) PO UD 09/30/2016 10/05/2016 In active 6-5-4-3-2-1 hydrocodone 7.5 mg-a cetaminophen 325 mg tablet RxNorm: 551548 1-2 Tablet(s) PO Q4H as needed 09/20/2016 01/15/2017 Inactive amlodipine 5 mg tablet RxNorm: 543663 TAKE ONE TABLET BY MOUTH EVERY DAY 08/15/2016 03/23/2017 In active Generic For:NORVASC 5 MG TABLET 017 3:56:26 PM N O T I C E Last quantity doesn't match original quantity Kenalog 40 mg/mL [place] [employer] for injection RxNorm: 2734241 1 Milliliter(s) Inj 08/08/2016 08/08/2016 In active prednisone 10 mg tab lets in a dose pack RxNorm: 233151 1 Tablet(s) PO UD 08/08/2016 08/07/2016 In active prednisone 10 mg tab lets in a dose pack RxNorm: 464760 1 Tablet(s) PO UD 08/08/2016 08/13/2016 In active 6-5-4-3-2-1 Diflucan 150 mg tablet RxNorm: 278990 1 Tablet(s) PO daily 06/27/2016 07/10/2016 Inactive Synthroid 75 mcg tablet RxNorm: 343185 TAKE 1 TABLET BY MOUTH DAILY 06/16/2016 11/13/2016 Inactive Generic For:*SYNTHROID 0.075MG TAB pt wo uld like a 90 day supply N O T I C E Last quantity doesn't match original quantity hydrocodone 7.5 mg-a cetaminophen 325 mg tablet RxNorm: 207177 1-2 Tablet(s) PO Q4H as needed 06/06/2016 09/19/2016 Inactive citalopram 20 mg tablet RxNorm: 617404 TAKE ONE (1) TABLET BY MOUTH DAILY 05/18/2016 11/13/2016 In active Generic For:CELEXA 20MG TAB 05/17/2016 8:32:02 AM Celebrex 200 mg capsule RxNorm: 980709 1 Capsule(s) PO daily 05/17/2016 03/23/2017 Inactive losartan 100 mg tablet RxNorm: 715513 TAKE 1 TABLET BY MOUTH DAILY 05/17/2016 11/12/2016 Inactive Generic For:COZAAR 100MG TAB 05/17/2016 8:31:51 AM amlodipine 5 mg tablet RxNorm: 004013 1 Tablet(s) PO daily 05/10/2016 08/14/2016 Inactive Cipro 500 mg tablet RxNorm: 080211 1 Tablet(s) PO BID 05/04/2016 05/03/2016 Inactive Cipro 500 mg tablet RxNorm: 583793 1 Tablet(s) PO BID 05/04/2016 05/13/2016 Inactive Diflucan 150 mg tablet RxNorm: 147874 1 Tablet(s) PO daily 04/18/2016 05/01/2016 Inactive Monistat Soothing Ca re 1.2 % topical gel RxNorm: 9567663 1 Application TOP BI D 03/07/2016 01/01/2018 In active Diflucan 150 mg tablet RxNorm: 019681 1 Tablet(s) PO daily 03/07/2016 03/13/2016 Inactive Lipitor 40 mg tablet RxNorm: 718613 Tablet(s) TAKE ONE TABLET BY MOUTH AT BE DTIMT 02/23/2016 02/13/2017 Inactive citalopram 20 mg tablet RxNorm: 335421 TAKE ONE (1) TABLET BY MOUTH DAILY 02/18/2016 05/17/2016 In active Generic For:CELEXA 20MG TAB refill reque st losartan 100 mg tablet RxNorm: 061958 Tablet(s) 1 Tablet, 1 time per Day 02/09/2016 05/16/2016 In active INSURANCE WILL NOT COVER ADELA ANDREWS IED UNTIL OTHER FORMULARIES HAVE BEEN TRIED AND FAILED hydrocodone 7.5 mg-a cetaminophen 325 mg tablet RxNorm: 394051 1-2 Tablet(s) PO Q4H as needed 02/03/2016 06/05/2016 Inactive Synthroid 75 mcg tablet RxNorm: 184223 Tablet(s) TAKE 1 TABLET BY MOUTH DAILY 01/19/2016 06/15/2016 In active Generic For:*SYNTHROID 0.075MG TAB 04/2014 10:00:02 AM N O T I C E PRESCRIPTION PREVIOUSLY AUTHORIZED BY DOCTOR:SWATI BEY prednisone 10 mg tab lets in a dose pack RxNorm: 869247 1 Tablet(s) PO UD 01/07/2016 02/22/2016 In active 6-5-4-3-2-1 amlodipine 10 mg tablet RxNorm: 203634 1 Tablet(s) PO daily 12/07/2015 11/30/2016 Inactive citalopram 20 mg tablet RxNorm: 672040 TAKE ONE (1) TABLET BY MOUTH DAILY 11/17/2015 02/14/2016 In active Generic For:CELEXA 20MG TAB refill reque st hydrocodone 7.5 mg-a cetaminophen 325 mg tablet RxNorm: 214727 1-2 Tablet(s) PO Q4H as needed 10/08/2015 02/02/2016 Inactive losartan 100 mg tablet RxNorm: 244146 Tablet(s) 1 Tablet, 1 time per Day 2015 02/07/2016 In active INSURANCE WILL NOT COVER [place] ANDREWS UNTIL OTHER FORMULARIES HAVE BEEN TRIED AND FAILED citalopram 20 mg tablet RxNorm: 701610 TAKE ONE (1) TABLET BY MOUTH DAILY 08/10/2015 11/07/2015 In active Generic For:CELEXA 20MG TAB 08/10/2015 8:59:58 AM Synthroid 75 mcg tablet RxNorm: 577634 Tablet(s) TAKE 1 TABLET BY MOUTH DAILY 05/26/2015 12/21/2015 In active Generic For:*SYNTHROID 0.075MG TAB 04/2014 10:00:02 AM N O T I C E PRESCRIPTION PREVIOUSLY AUTHORIZED BY DOCTOR:SWATI BEY prednisone 20 mg tablet RxNorm: 263665 2 Tablet(s) PO daily 05/26/2015 05/30/2015 Inactive Lipitor 40 mg tablet RxNorm: 612662 TAKE ONE TABLET BY MOUTH AT BEDTIME 05/14/2015 02/07/2016 In active Generic For:LIPITOR 40MG TAB 05/13/2015 8:26:33 AM N O T I C E PRESCRIPTION PREVIOUSLY AUTHORIZED BY DOCTOR:SWATI BEY hydrocodone 7.5 mg-a cetaminophen 325 mg tablet RxNorm: 850213 1-2 Tablet(s) PO Q4H as needed 05/11/2015 10/07/2015 Inactive Celebrex 200 mg capsule RxNorm: 723234 1 Capsule(s) PO daily 05/07/2015 04/30/2016 Inactive citalopram 20 mg tablet RxNorm: 845155 TAKE ONE (1) TABLET BY MOUTH DAILY 04/27/2015 07/25/2015 In active Generic For:CELEXA 20MG TAB 04/26/2015 7:30:08 PM gabapentin 300 mg ca psule RxNorm: 324395 1 Capsule(s) PO QID 04/09/2015 04/02/2016 Inactive citalopram 20 mg tablet RxNorm: 233518 TAKE ONE (1) TABLET BY MOUTH DAILY 01/26/2015 04/25/2015 In active Generic For:CELEXA 20MG TAB 01/26/2015 8:40:11 AM losartan 100 mg tablet RxNorm: 685441 1 Tablet, 1 time per Day 01/26/2015 03/29/2015 Inactive INSURANCE WILL NOT COVER ADELA ANDREWS UNTIL OTHER FORMULARIES HAVE BEEN TRIED AND FAILED hydrocodone 7.5 mg-a cetaminophen 325 mg tablet RxNorm: 556876 1-2 Tablet(s) PO Q4H as needed 01/23/2015 05/10/2015 Inactive Neurontin 100 mg cap almaz RxNorm: 019613 1 Capsule(s) PO TID 01/14/2015 03/09/2015 Inactive Neurontin 100 mg cap almaz RxNorm: 281366 1 Capsule(s) PO TID 01/14/2015 01/13/2015 Inactive Keflex 500 mg capsule RxNorm: 947877 1 Capsule(s) PO TID 01/06/2015 01/05/2015 Inactive Keflex 500 mg capsule RxNorm: 216700 1 Capsule(s) PO TID 01/06/2015 01/12/2015 Inactive hydrocodone 7.5 mg-a cetaminophen 325 mg tablet RxNorm: 339758 1-2 Tablet(s) PO Q4H as needed 12/29/2014 01/22/2015 Inactive Duexis 800 mg-26.6 m g tablet RxNorm: 7164895 1 Tablet(s) PO TID a s needed 12/19/2014 03/29/2015 In active Duexis 800 mg-26.6 m g tablet RxNorm: 2266131 1 Tablet(s) PO TID a s needed 12/19/2014 12/18/2014 In active Kenalog 40 mg/mL [place] [facility] for injection RxNorm: 4934004 1 Milliliter(s) Inj 12/09/2014 12/09/2014 In active prednisone 10 mg tab lets in a dose pack RxNorm: 727381 1 Tablet(s) PO UD 12/09/2014 12/14/2014 In active 6-5-4-3-2-1 amlodipine 10 mg tablet RxNorm: 168483 1 Tablet(s) PO daily 11/13/2014 11/07/2015 Inactive citalopram 20 mg tablet RxNorm: 426790 TAKE ONE (1) TABLET BY MOUTH DAILY 10/23/2014 01/20/2015 In active Generic For:CELEXA 20MG TAB 10/23/2014 4:32:02 PM N O T I C E PRESCRIPTION PREVIOUSLY AUTHORIZED BY DOCTOR:SWATI BEY hydrocodone 7.5 mg-a cetaminophen 325 mg tablet RxNorm: 067807 1-2 Tablet(s) PO Q4H as needed 10/22/2014 12/28/2014 Inactive Synthroid 75 mcg tablet RxNorm: 560892 TAKE 1 TABLET BY MOUTH DAILY 09/22/2014 04/19/2015 Inactive Generic For:*SYNTHROID 0.075MG TAB 04/2014 10:00:02 AM N O T I C E PRESCRIPTION PREVIOUSLY AUTHORIZED BY DOCTOR:SWATI BEY amlodipine 5 mg tablet RxNorm: 067451 1 Tablet(s) PO daily 08/25/2014 11/12/2014 Inactive Synthroid 75 mcg tablet RxNorm: 998936 1 Tablet(s) PO daily ecept a 1/2 tab on Monday07/11/2014 09/21/2014 Inactive Flonase Allergy Reli ef 50 mcg/actuation nasal spray,suspension RxNorm: 1 [place] NASAL BID 07/10/2014 12/06/2014 Inactive methotrexate sodium 2.5 mg tablet RxNorm: 374125 3 Tablet(s) PO weekly No Start Date 04/08/2015 Inactive Aldactone 25 mg tablet RxNorm: 121717 1 Tablet(s) PO daily No Start Date 03/26/2018 Inactive gabapentin 300 mg ca psule RxNorm: 572302 1 Capsule(s) PO TID No Start Date 04/08/2015 Inactive Plaquenil 200 mg tablet RxNorm: 375075 1 Tablet(s) PO BID No Start Date 05/22/2016 Inactive losartan 100 mg tablet RxNorm: 898273 1 Tablet(s) PO daily No Start Date 01/25/2015 Inactive Benicar 20 mg tablet RxNorm: 055947 1 Tablet(s) PO daily No Start Date 05/07/2018 Inactive Remicade intravenous RxNorm: 724553 intravenous No Start Date 03/23/2017 Inactive amlodipine 5 mg tablet RxNorm: 786545 1 Tablet(s) PO daily No Start Date 08/24/2014 Inactive Celebrex 200 mg capsule RxNorm: 765354 1 Capsule(s) PO daily No Start Date 10/16/2017 Inactive citalopram 20 mg tablet RxNorm: 168737 1 Tablet(s) PO daily No Start Date 10/22/2014 Inactive Synthroid 88 mcg tablet RxNorm: 272420 1 Tablet(s) PO daily No Start Date 07/09/2014 Inactive Arava 20 mg tablet RxNorm: 669868 1 Tablet(s) PO daily No Start Date 01/01/2018 Inactive Lipitor 40 mg tablet RxNorm: 217366 1 Tablet(s) PO daily No Start Date 05/13/2015 Inactive chlorthalidone 25 mg tablet RxNorm: 088801 1 Tablet(s) PO daily No Start Date 03/26/2018 Inactive Synthroid 75 mcg tablet RxNorm: 701775 1 Tablet(s) PO daily No Start Date 07/10/2014 Inactive hydrocodone 7.5 mg-a cetaminophen 325 mg tablet RxNorm: 201567 Tablet(s) PO as neede d No Start Date 10/21/2014 Inactive Medication Administered Medication Codes Instruc tions Start Date Status Kenalog 40 mg/mL suspension for injection RxNorm: 5153288 1Milliliter 08/08/2016 N o longer Active Kenalog 40 mg/mL suspension for injection RxNorm: 8541763 1Milliliter 12/09/2014 N o longer Active Immunizations [...] Item Item Code Result Date Comp Metabolic Nee905 NA 134 mEq/L 10/02/2018 Comp Metabolic Roi689 K 4.4 mEq/L 10/02/2018 Comp Metabolic Mwe491 CL 97 mEq/L 10/02/2018 Comp Metabolic Iyl033 CO2 30.0 mEq/L 10/02/2018 Comp Metabolic Zwd566 AN ION GAP 11 10/02/2018 Comp Metabolic Htt590 GL UCOSE 97 mg/dL 10/02/2018 Comp Metabolic Cjs647 Cr eat 1.0 mg/dL 10/02/2018 Comp Metabolic Qdx362 eG FR 60 ml/min/1.73m2 10/02 Comp Metabolic Brd234 BUN 15 mg/dL 10/02/2018 Comp Metabolic Ane525 B/ C Ratio 15.3 Ratio 10/02/2018 Comp Metabolic Wfi097 CA LCIUM 9.8 mg/dL 10/02/2018 Comp Metabolic Lzh516 AL K PHOS 91 U/L 10/02/2018 Comp Metabolic Jfd977 T(SGOT) 14 U/L 10/02/2018 Comp Metabolic Qoo170 AL T(SGPT) 11 U/L 10/02/2018 Comp Metabolic Fat417 BI LI T 0.5 mg/dL 10/02/2018 Comp Metabolic Qan135 AL BUMIN 4.3 g/dL 10/02/2018 Comp Metabolic Eep381 TP RO 6.8 g/dL 10/02/2018 Comp Metabolic Ykt592 GL OB 2.5 g/dL 10/02/2018 Comp Metabolic Xkd824 A/ G Ratio 1.7 Ratio 10/02/2018 Comp Metabolic Dzh037 Os mo 269 mOsmo 10/02/2018 Vitamin D 25 Oh Oij1371 VITAMIN D, 25 HYDROXY 23.30 ng/mL 10/02/2018 Free T4 Rqi341 FREE T4 1.08 ng/dL 10/02/2018 Lipid Ord30 CHOL 394 mg/dL 10/02/2018 Lipid Ord30 HDL 60.0 mg/dl 10/02/2018 Lipid Ord30 TRIG 253 mg/dL 10/02/2018 Lipid Ord30 LDL 283 mg/dL 10/02/2018 Lipid Ord30 C/HDL 6.6 Ratio 10/02/2018 Tsh Ord6 TSH (3rd IS) 2.00 uIU/mL 10/02/2018 Free T4 Rdn136 FREE T4 0.86 ng/dL 05/07/2018 Comp Metabolic Teo053 NA 138 mEq/L 05/07/2018 Comp Metabolic Qgf369 K 4.2 mEq/L 05/07/2018 Comp Metabolic Fjs485 CL 104 mEq/L 05/07/2018 Comp Metabolic Puj670 CO2 28.0 mEq/L 05/07/2018 Comp Metabolic Shn758 AN ION GAP 10 05/07/2018 Comp Metabolic Vst939 GL UCOSE 108 mg/dL 05/07/2018 Comp Metabolic Mmr010 Cr eat 0.9 mg/dL 05/07/2018 Comp Metabolic Cxf533 eG FR 71 ml/min/1.73m2 05/07 Comp Metabolic Oix952 BUN 15 mg/dL 05/07/2018 Comp Metabolic Owx357 B/ C Ratio 17.6 Ratio 05/07/2018 Comp Metabolic Udy616 CA LCIUM 9.5 mg/dL 05/07/2018 Comp Metabolic Umn421 AL K PHOS 100 U/L 05/07/2018 Comp Metabolic Wlq200 T(SGOT) 17 U/L 05/07/2018 Comp Metabolic Paf524 AL T(SGPT) 11 U/L 05/07/2018 Comp Metabolic Fdq490 BI LI T 0.4 mg/dL 05/07/2018 Comp Metabolic Fxr586 AL BUMIN 3.9 g/dL 05/07/2018 Comp Metabolic Tax960 TP RO 6.3 g/dL 05/07/2018 Comp Metabolic Cvw454 GL OB 2.4 g/dL 05/07/2018 Comp Metabolic Yso519 A/ G Ratio 1.6 Ratio 05/07/2018 Comp Metabolic Dll915 Os mo 277 mOsmo 05/07/2018 Cbc With [...] 31.6 % 05/07/2018 Cbc With Differential Ord2 [place]% 9.7 % 05/07/2018 Cbc With Differential Ord2 [...] 2.02 K/ul 05/07/2018 Cbc With Differential Ord2 [place] ABS# 0.6 K/ul 05/07/2018 Cbc With Differential [...] 31.1 pg 12/26/2017 Cbc With Differential Ord2 [place]% 9.2 % 12/26/2017 Cbc With Differential Ord2 [...] 1.53 K/ul 12/26/2017 Cbc With Differential Ord2 [place] ABS# 0.7 K/ul 12/26/2017 Cbc With Differential Ord2 Eos ABS# 0.1 K/ul 12/26/2017 Cbc With Differential Ord2 Baso ABS# 0.0 K/ul 12/26/2017 Free T4 Axx101 FREE T4 0.93 ng/dL 12/26/2017 Comp Metabolic Uwq653 NA 135 mEq/L 12/26/2017 Comp Metabolic Trc588 K 4.4 mEq/L 12/26/2017 Comp Metabolic Jqy616 CL 98 mEq/L 12/26/2017 Comp Metabolic Mot840 CO2 28.0 mEq/L 12/26/2017 Comp Metabolic Ntm492 AN ION GAP 13 12/26/2017 Comp Metabolic Lgm104 GL UCOSE 92 mg/dL 12/26/2017 Comp Metabolic Bbo217 Cr eat 1.1 mg/dL 12/26/2017 Comp Metabolic Mua221 eG FR 52 ml/min/1.73m2 12/26 Comp Metabolic Xbf003 BUN 25 mg/dL 12/26/2017 Comp Metabolic Tzy076 B/ C Ratio 22.7 Ratio 12/26/2017 Comp Metabolic Lnc176 CA LCIUM 9.8 mg/dL 12/26/2017 Comp Metabolic Rfe681 AL K PHOS 91 U/L 12/26/2017 Comp Metabolic Ibb039 T(SGOT) 16 U/L 12/26/2017 Comp Metabolic Qug026 AL T(SGPT) 12 U/L 12/26/2017 Comp Metabolic Fhp795 BI LI T 0.5 mg/dL 12/26/2017 Comp Metabolic Tzb653 AL BUMIN 4.3 g/dL 12/26/2017 Comp Metabolic Wjy383 TP RO 6.8 g/dL 12/26/2017 Comp Metabolic Jww270 GL OB 2.5 g/dL 12/26/2017 Comp Metabolic Dmt844 A/ G Ratio 1.7 Ratio 12/26/2017 Comp Metabolic Pdk877 Os mo 274 mOsmo 12/26/2017 Urine Culture Ucult Prel iminary NO Growth Day 1 06/29 Urine Culture Ucult Comp lete NO Growth Day 2 06/29 Culture Urine [id number] URI NE CULTURE SEE NOTES 04/22/2016 Culture Urine [id number] Con tinued Results 04/22/2016 Urine Culture Ucult Comp lete >100,000 col/ml aerobic grow th sent to ref lab 04/20/2016 Comp Metabolic Nxy050 NA 137 mEq/L 02/10/2016 Comp Metabolic Rlk949 K 4.1 mEq/L 02/10/2016 Comp Metabolic Eif848 CL 102 mEq/L 02/10/2016 Comp Metabolic Mii667 CO2 28.0 mEq/L 02/10/2016 Comp Metabolic Qts288 AN ION GAP 11 02/10/2016 Comp Metabolic Cvq891 GL UCOSE 104 mg/dL 02/10/2016 Comp Metabolic Wdd621 Cr eat 0.7 mg/dL 02/10/2016 Comp Metabolic Ggn421 eG FR 83 ml/min/1.73m2 02/09 Comp Metabolic Lpw664 BUN 14 mg/dL 02/10/2016 Comp Metabolic Quh202 B/ C Ratio 18.9 Ratio 02/10/2016 Comp Metabolic Inl732 CA LCIUM 9.7 mg/dL 02/10/2016 Comp Metabolic Rdk551 AL K PHOS 121 U/L 02/10/2016 Comp Metabolic Ybn832 T(SGOT) 19 U/L 02/10/2016 Comp Metabolic Prt720 AL T(SGPT) 13 U/L 02/10/2016 Comp Metabolic Hff137 BI LI T 0.5 mg/dL 02/10/2016 Comp Metabolic Cem642 AL BUMIN 4.3 g/dL 02/10/2016 Comp Metabolic Azr482 TP RO 6.8 g/dL 02/10/2016 Comp Metabolic Uxp390 GL OB 2.5 g/dL 02/10/2016 Comp Metabolic Bng627 A/ G Ratio 1.7 Ratio 02/10/2016 Comp Metabolic Fkg253 Os mo 275 mOsmo 02/10/2016 Lipid Ord30 CHOL 229 mg/dL 02/10/2016 Lipid Ord30 HDL 59.0 mg/dl 02/10/2016 Lipid Ord30 TRIG 252 mg/dL 02/10/2016 Lipid Ord30 LDL 120 mg/dL 02/10/2016 Lipid Ord30 C/HDL 3.9 Ratio 02/10/2016 Free T4 Ejy426 FREE T4 0.87 ng/dL 02/10/2016 Tsh Ord6 [...] 29.2 pg 02/10/2016 Cbc With Differential Ord2 [place]% 18.6 % 02/10/2016 Cbc With Differential Ord2 [...] 1.81 K/ul 02/10/2016 Cbc With Differential Ord2 [place] ABS# 1.1 K/ul 02/10/2016 Cbc With Differential Ord2 Eos ABS# 0.1 K/ul 02/10/2016 Cbc With Differential Ord2 Baso ABS# 0.1 K/ul 02/10/2016 Tsh Ord6 hTSH II 0.85 uIU/mL 04/02/2015 Lipid Ord30 CHOL 207 mg/dL 04/02/2015 Lipid Ord30 HDL 68.0 mg/dl 04/02/2015 Lipid Ord30 TRIG 193 mg/dL 04/02/2015 Lipid Ord30 LDL 100 mg/dL 04/02/2015 Lipid Ord30 C/HDL 3.0 Ratio 04/02/2015 Free T4 Udt278 FREE T4 1.09 ng/dL 04/02/2015 Free T4 Uba721 FREE T4 0.82 ng/dL 10/15/2014 Tsh Ord6 [...] General 1995 Ears/Nose/Throat lips/teeth/gingiva Overall: benign lips 10/01/2018 None [...] 1995 Ears/Nose/Throat oral cavity/pharynx/larynx Overall: hypopharynx benign 05/08/2018 [...] 1994 Musculoskeletal digits and nails PIPs: third 05/08/2018 [...] accomodation 03/27/2018 None Full Exam - General 1994 [...] 1994 Ears/Nose/Throat oral cavity/pharynx/larynx Overall: hypopharynx benign 03/27/2018 [...] 1995 Musculoskeletal digits and nails PIPs: swelling 03/24/2017 None Full Exam - General 1995 Musculoskeletal digits and nails PIPs: deformity 03/24/2017 None Full Exam - General 1995 Musculoskeletal digits and nails PIPs: bony enlargement 03/24/2017 None Full Exam - General 1995 Musculoskeletal digits and nails MCPs: first 03/24/2017 [...] lips 02/23/2016 None Full Exam - General 1995 Ears/Nose/Throat lips/teeth/gingiva Overall: normal dentition 02/23/2016 None [...] 1: 146/80 Code: 8480-6 BMI: 31.9 Code: 33228-3 Heart Rate 1: 80 bpm Height: 5'4" SpO2: 97% Weight: 186 lbs 06/12/2018 Blood Pressure 1: 124/74 Code: 8480-6 BMI: 31.6 Code: 02847-4 Heart Rate 1: 55 bpm Height: 5'4" SpO2: 99% Weight: 184 lbs 05/08/2018 Blood Pressure 1: 148/84 Code: 8480-6 BMI: 31.8 Code: 73364-9 Heart Rate 1: 60 bpm Height: 5'4" SpO2: 96% Weight: 185 lbs 03/27/2018 Blood Pressure 1: 142/84 Code: 8480-6 BMI: 31.2 Code: 29201-6 Heart Rate 1: 75 bpm Height: 5'4" SpO2: 97% Weight: 182 lbs 01/02/2018 Blood Pressure 1: 136/68 Code: 8480-6 BMI: 32.4 Code: 11249-6 Heart Rate 1: 80 bpm Height: 5'4" SpO2: 99% Waist Measure (cm): 104 cm Weight: 189 lbs 12/26/2017 Blood Pressure 1: 138/72 Code: 8480-6 BMI: 31.4 Code: 07143-0 Heart Rate 1: 72 bpm Height: 5'4" SpO2: 96% Weight: 183 lbs 10/17/2017 Blood Pressure 1: 156/72 Code: 8480-6 BMI: 31.4 Code: 34330-9 Heart Rate 1: 81 bpm Height: 5'4" SpO2: 98% Temperature: 36.5 (C ) / 97.7 (F) Weight: 183 lbs 09/27/2017 Blood Pressure 1: 140/82 Code: 8480-6 BMI: 32.1 Code: 12253-2 Heart Rate 1: 82 bpm Height: 5'4" SpO2: 98% Weight: 187 lbs 07/31/2017 Blood Pressure 1: 138/82 Code: 8480-6 Heart Rate 1: 87 bpm SpO2: 99% 03/24/2017 Blood Pressure 1: 146/86 Code: 8480-6 BMI: 31.8 Code: 72939-4 Heart Rate 1: 79 bpm Height: 5'4" SpO2: 96% Temperature: 36.4 (C ) / 97.5 (F) Weight: 185 lbs 08/30/2016 Blood Pressure 1: 142/88 Code: 8480-6 BMI: 31.6 Code: 46952-3 Heart Rate 1: 80 bpm Height: 5'4" SpO2: 93% Weight: 184 lbs 08/08/2016 Blood Pressure 1: 142/76 Code: 8480-6 BMI: 29.9 Code: 87100-6 Heart Rate 1: 80 bpm Height: 5'4" SpO2: 94% Weight: 174 lbs 06/27/2016 Blood Pressure 1: 156/72 Code: 8480-6 BMI: 30.6 Code: 22169-9 Heart Rate 1: 78 bpm Height: 5'4" SpO2: 95% Weight: 178 lbs 05/23/2016 Blood Pressure 1: 146/84 Code: 8480-6 Heart Rate 1: 66 bpm Height: 5'4" SpO2: 94% 04/18/2016 Blood Pressure 1: 148/84 Code: 8480-6 BMI: 30.2 Code: 65260-5 Heart Rate 1: 81 bpm Height: 5'4" SpO2: 97% Weight: 176 lbs 03/07/2016 Blood Pressure 1: 130/78 Code: 8480-6 BMI: 30.0 Code: 06170-8 Heart Rate 1: 85 bpm Height: 5'4" SpO2: 96% Weight: 175 lbs 02/23/2016 Blood Pressure 1: 140/78 Code: 8480-6 BMI: 29.7 Code: 80433-4 Heart Rate 1: 74 bpm Height: 5'4" SpO2: 95% Weight: 173 lbs 09/15/2015 Blood Pressure 1: 140/88 Code: 8480-6 BMI: 29.4 Code: 92598-0 Heart Rate 1: 81 bpm Height: 5'4" SpO2: 97% Weight: 171 lbs 8 oz 05/26/2015 Blood Pressure 1: 150/80 Code: 8480-6 BMI: 31.6 Code: 29176-3 Heart Rate 1: 70 bpm Height: 5'4" SpO2: 96% Weight: 184 lbs 04/09/2015 Blood Pressure 1: 136/74 Code: 8480-6 BMI: 31.4 Code: 86622-4 Heart Rate 1: 91 bpm Height: 5'4" SpO2: 94% Weight: 183 lbs 03/30/2015 Blood Pressure 1: 130/72 Code: 8480-6 BMI: 30.9 Code: 52308-4 Heart Rate 1: 80 bpm Height: 5'4" SpO2: 97% Waist Measure (cm): 102 cm Weight: 180 lbs 03/10/2015 Blood Pressure 1: 152/80 Code: 8480-6 BMI: 31.1 Code: 46523-6 Heart Rate 1: 66 bpm Height: 5'4" SpO2: 98% Weight: 181 lbs 12/16/2014 Blood Pressure 1: 132/88 Code: 8480-6 Blood Pressure 1: 132/88 Code: 8480-6 Heart Rate 1: 88 bpm SpO2: 98% Weight: 183 lbs 12/09/2014 Blood Pressure 1: 140/82 Code: 8480-6 BMI: 31.2 Code: 56227-6 Heart Rate 1: 105 bpm Height: 5'4" SpO2: 93% Weight: 182 lbs 11/13/2014 Blood Pressure 1: 148/88 Code: 8480-6 BMI: 31.8 Code: 50909-4 Heart Rate 1: 54 bpm Height: 5'4" SpO2: 98% Weight: 185 lbs 07/10/2014 Blood Pressure 1: 144/96 Code: 8480-6 BMI: 31.4 Code: 31198-1 Heart Rate 1: 99 bpm Height: 5'4" [...] 01/02/2018 None Annual Medicare Wellness Exam Depres alya (last 6 months) almost never 01/02/2018 None [...] frantz sary hypertension 09/27/2017 None hypothyroid Quality 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 P ATIENT, LEVEL IV Diagnosis: Essential (primary) hypertension[ICD10: I10] Diagnosis: Mixed hyperlipidemia[ICD10: E78.2] Diagnosis: Atrophy of thyroid (acquired)[ICD10: E03.4] Diagnosis: Other specified disorders of bone, other site[ICD10: M89.8X8] Shannon Falk MD, [facility] CPT-4: 46653 10/01/2018 ([id number]) 52184 EST. P ATIENT, LEVEL III Diagnosis: Essential (primary) hypertension[ICD10: I10] Diagnosis: Atrophy of thyroid (acquired)[ICD10: E03.4] Shannon Falk MD, C CPT-4: 27360 06/12/2018 ([id number]) 25613 EST. P ATIENT, LEVEL IV Diagnosis: Essential (primary) hypertension[ICD10: I10] Diagnosis: Atrophy of thyroid (acquired)[ICD10: E03.4] Diagnosis: Mixed hyperlipidemia[ICD10: E78.2] Shannon aFlk MD, [facility] CPT- 4: 03921 05/08/2018 ([id number]) 24720 EST. P ATIENT, LEVEL III Diagnosis: Hypo-osmolality and hyponatremia[ICD10: E87.1] Shannon Falk MD, C CPT-4: 04050 03/27/2018 ([id number]) 10885 EST. P ATIENT, LEVEL IV Diagnosis: Atrophy of thyroid (acquired)[ICD10: E03.4] Diagnosis: Essential (primary) hypertension[ICD10: I10] Diagnosis: 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[ICD10: M05.741] Diagnosis: 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[ICD10: M05.742] Diagnosis: Pain in thoracic spine[ICD10: M54.6] Shannon Falk MD, [facility] CPT-4: 47046 12/26/2017 ([id number]) 32868 EST. P ATIENT, LEVEL III Diagnosis: Otalgia, left ear[ICD10: H92.02] Diagnosis: Essential (primary) hypertension[ICD10: I10] Elizabet Falk MD, [facility] CPT-4: 15591 10/17/2017 ([id number]) 00619 EST. P ATIENT, LEVEL IV Diagnosis: 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[ICD10: M05.741] Diagnosis: 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[ICD10: M05.742] Diagnosis: Atrophy of thyroid (acquired)[ICD10: E03.4] Diagnosis: Essential (primary) hypertension[ICD10: I10] Shannon Falk MD, C CPT-4: 63532 09/27/2017 ([id number]) Miscellaneou s no charge Diagnosis: Essential (primary) hypertension[ICD10: I10] Elizabet Falk MD, [facility] CPT-4: 86857 07/31/2017 ([id number]) 40283 EST. P ATIENT, LEVEL IV Diagnosis: Essential (primary) hypertension[ICD10: I10] Diagnosis: Atrophy of thyroid (acquired)[ICD10: E03.4] Diagnosis: 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[ICD10: M05.741] Diagnosis: 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[ICD10: M05.742] Shannon Falk MD, [facility] CPT-4: 87667 03/24/2017 ([id number]) 30265 EST. P ATIENT, LEVEL IV Diagnosis: Atrophy of thyroid (acquired)[ICD10: E03.4] Diagnosis: Pleurisy[ICD10: R09.1] Diagnosis: Essential (primary) hypertension[ICD10: I10] Shannon Falk MD, C CPT-4: 06048 08/30/2016 ([id number]) 05573 EST. P ATIENT, LEVEL III Diagnosis: Pleurisy[ICD10: R09.1] Elizabet Falk MD, [facility] CPT-4: 63288 08/08/2016 [id number] EST. PATIENT, LEVEL III Diagnosis: Dysuria[ICD10: R30.0] Diagnosis: Other pruritus[ICD10: L29.8] Shila Falk MD, [facility] CPT-4: 25335 06/27/2016 ([id number]) 28800 EST. P ATIENT, LEVEL III Diagnosis: Pain in left foot[ICD10: M79.672] Diagnosis: Pain in left toe(s)[ICD10: M79.675] Elizabet Falk MD, [facility] CPT-4: 87767 05/23/2016 [id number] EST. PATIENT, LEVEL III Diagnosis: Candidiasis of vulva and vagina[ICD10: B37.3] Diagnosis: Dysuria[ICD10: R30.0] Shila Falk MD, [facility] CPT-4: 64414 04/18/2016 [id number] EST. PATIENT, LEVEL III Diagnosis: Other pruritus[ICD10: L29.8] Diagnosis: Candidiasis of vulva and vagina[ICD10: B37.3] Shila Falk MD, [facility] CPT-4: 91140 03/07/2016 ([id number]) 62204 EST. 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 P ATIENT, LEVEL IV Diagnosis: Essential (primary) hypertension[ICD10: I10] Diagnosis: Mixed hyperlipidemia[ICD10: E78.2] Diagnosis: Major depressive disorder, single episode, unspecified[ICD10: F32.9] Shannon Falk MD, [facility] CPT-4: 71057 09/15/2015 31609 EST. PATIENT, LEVEL III Diagnosis: Rash and other nonspecific skin eruption[ICD10: R21] Shila Falk MD, [facility] CPT-4: 07362 05/26/2015 ([id number]) 39422 EST. P ATIENT, LEVEL IV Diagnosis: Essential (primary) hypertension[ICD10: I10] Diagnosis: Foot drop, left foot[ICD10: M21.372] Diagnosis: Sacroiliitis, not elsewhere classified[ICD10: M46.1] Shannon Falk MD, C CPT-4: 96540 04/09/2015 ([id number]) 19048 EST. 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 P ATIENT, LEVEL III Diagnosis: Trochanteric bursitis, left hip[ICD10: M70.62] Diagnosis: Iliotibial band syndrome, left leg[ICD10: M76.32] Diagnosis: Sciatica, left side[ICD10: M54.32] Elizabet Falk MD, [facility] CPT-4: 48271 12/16/2014 ([id number]) 78952 EST. P ATIENT, LEVEL III Diagnosis: Sciatica, left side[ICD10: M54.32] Diagnosis: Sacroiliitis, not elsewhere classified[ICD10: M46.1] Elizabet Falk MD, [facility] CPT-4: 08265 12/09/2014 ([id number]) 46354 EST. 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] Diagnosis: Carpal tunnel syndrome, unspecified upper limb[ICD10: G56.00] Shannon Falk MD, [facility] CPT-4: 33574 11/13/2014 ([id number]) OFFICE VISI T, NEW - LEVEL 4 Diagnosis: ESSENTIAL HYPERTENSION[ICD9: 401.9] Diagnosis: HYPERLIPIDEMIA[ICD9: 272.4] Diagnosis: DEPRESSIVE DISORDER NEC[ICD9: 311] Diagnosis: Diarrhea[ICD9: 787.91] Shannon Falk MD, [facility] CPT-4: 89747 07/10/2014 Plan of Care Planned Activity Notes C odes Status Date Visit Plan: Hypertension - well con laura [...] back pain. 10/01/2018 Appointment: Shannon Falk WPtel: [address] [place], [place] [id number] (15 min) Moderate 10/01/2018 Patient Education: Patient [...] control. 06/12/2018 Appointment: [phone] ([facility] min) Moderate 06/12/2018 Patient Education: Patient [...] of control. 05/08/2018 Appointment: Shannon Falk WPtel: [facility] (15 min) Moderate 05/08/2018 Patient Education: Patient Medication Summary Completed 05/08/2018 Patient Education: Hypertension Completed 05/08/2018 Appointment: Shannon Flak WPtel: [facility] (15 min) Moderate 03/28/2018 Visit Plan: Hyponatremia - continue with current treatment - gatorade/powerade, monitor electrolytes. 03/27/2018 Appointment: Shannon Falk WPtel: [address] [place], [place] [phone] (15 min) Moderate 03/27/2018 Patient Education: Patient Medication Summary Completed 03/27/2018 Patient Education: Patient Medication Summary Completed 02/01/2018 Appointment: Shannon Falk WPtel: [address] [place], [place] [phone] (15 min) Moderate 01/22/2018 Patient Education: Patient [...] surrogate. 01/02/2018 Appointment: [phone] [phone] [facility] - Annual Wellness Visit 01/02/2018 [...] control. 12/26/2017 Appointment: Shannon Falk WPtel: [phone] [facility] [place] (15 min) Moderate 12/26/2017 Patient Education: Patient [...] plan. 10/17/2017 Appointment: [facility]onal[phone] [facility] [place] (15 min) Moderate 10/17/2017 Patient [...] home. 09/27/2017 Appointment: [phone] [facility] [place] (15 min) Moderate 09/27/2017 Patient Education: Patient Medication Summary Completed 09/27/2017 Care Plan: Referral Order SNOMED-CT : [id number] Pending 09/27/2017 Appointment: Shannon [phone] [facility] [place] (15 min) Moderate 09/21/2017 Appointment: Nurse [...] daily. 03/24/2017 Appointment: Shannon Falk [facility]Ptel[facility] [phone] [facility] [place] (15 min) Moderate 03/24/2017 Patient Education: Patient Medication Summary Completed 03/24/2017 Appointment: Shannon [phone] [facility] [place] (15 min) Moderate 03/16/2017 Appointment: [facility]el[phone] [facility] [place] (15 min) Moderate 03/01/2017 Visit Plan: [...] care. 08/30/2016 Appointment: Shannon Falk WPtel: [phone] [facility] (15 min) Moderate 08/30/2016 Patient Education: Patient [...] of plan. 08/08/2016 Appointment: Elizabet Donaldson WPtel: [phone] [phone] [place] (30 min) Complex 08/08/2016 Patient Education: Patient Medication Summary Completed 08/08/2016 Referral: Delia Bernstein WPtel: [address] [place], [place] [address] Referral Initiated 08/01/2016 Visit Plan: Vaginal yeast [...] refer. 06/27/2016 Appointment: Shila Deluna WPtel: [phone] [facility] (30 min) Complex 06/27/2016 Patient Education: Patient Medication Summary Completed 06/27/2016 Care Plan: Referral Order SNOMED-CT : [id number] Pending 06/27/2016 Visit Plan: Left foot, 1st and 2nd toe pain-suspect fracture of left great toe-will obtain xrays and proceed as indicated. Patient verbalized understanding of plan. 05/23/2016 Appointment: Elizabet Donaldson WPtel: [phone] [phone] (15 min) Moderate 05/23/2016 Patient Education: [...] probiotics 02/23/2016 Appointment: Shannon Falk [facility]el[phone] [facility] [place] (15 min) Moderate 02/23/2016 Patient Education: [...] Summary Completed 09/15/2015 Appointment: Shannon Falk WPtel: [facility] (15 min) Moderate 07/29/2015 Visit Plan: Rash [...] - vitamin B12 liquid 2000mcg daily - [facility] sells the liquid b12, folic acid - take daily. metanex 1 capsule twice daily - call office if this seems to help decrease nerve pain increase the night-time dosing of gabapentin to 300mg in AM, Noon, 6pm and 10pm 04/09/2015 Appointment: Shannon Falk [facility]Ptel[phone] [facility] (15 min) Moderate 04/09/2015 Patient Education: Patient [...] 2012. 03/10/2015 Appointment: Shannon Falk [facility]Ptel[facility] [phone] [facility] [place] (15 min) Moderate 03/10/2015 Patient Education: Patient Medication Summary Completed 03/10/2015 Care Plan: SCREENINGMAMMOGRAPHYDIGITAL LOINC : 87452-9 Ordered 03/10/2015 Care Plan: Referral Order SNOMED-CT : [id number] Ordered 03/10/2015 Care Plan: Referral Order SNOMED-CT : [id number] Ordered 03/10/2015 Visit Plan: Left hip bursitis/Iliot [...] Medication Summary Completed 12/16/2014 Patient Education: .[employer] lliot ibial Band Rehabilitation exercises Completed 12/16/2014 Patient Education: .Mayi Zhaopin Exercise for Sciati ca Completed 12/16/2014 Care Plan: Referral Order SNOMED-CT : [id number] Ordered 12/16/2014 Visit Plan: Sacroiliitis - back [...] Patient Medication Summary Completed 12/09/2014 Patient Education: .Mayi Zhaopin Exercise for Sciati ca Completed 12/09/2014 Visit [...] tunnel brace. 11/13/2014 Appointment: Shannon Falk WPtel: [address] [place], [place] [address] Follow up 11/13/2014 Patient Education: Patient Medication [...] stomach pain. ALIGN PROBIOTIC - TAKE DAILY (Rendeevoo OR [employer] -TWO OTHER PROBIOTICS THAT ARE HIGH QUALITY) CIPROFLOXACIN TO BE TAKEN IF NEEDED IF THE DIARRHEA DOES NOT IMPROVE OR IF IT WORSENS. 07/10/2014 Appointment: Shannon Falk WPtel: [address] [place], [place] [phone] [place] ([place]) New Patient 07/10/2014 Patient Education: Patient Medication Summary Completed 07/10/2014 Patient Education: Hypertension Completed 07/10/2014 Referral: Darci Spann Referral Relationship Referral: External, Ordering Provider Referral Appointment Requested Referral: External, Ordering Provider 09/28 Referral info faxed to [facility] 10/03 They tried calling her with an appt and she did not answer. Called patient and she will call them back. Appoint ment Requested Referral: External, Ordering Provider Referral Appointment Requested Referral: Delia Bernstein WPtel: [address] [place], [place] [address] Referral Initiated Referral: External, Ordering Provider Referral Completed Instructions Comment cata' urmila brina e - look up on [employer] . Hypertension - well controlled - elgin [...] allergy spray. ALIGN PROBIOTIC - TAKE DAILY (Rendeevoo OR [employer] -TWO OTHER PROBIOTICS THAT ARE HIGH QUALITY) [...] stomach pain. ALIGN PROBIOTIC - TAKE DAILY ([employer]ende[employer] OR [employer] -TWO OTHER PROBIOTICS THAT ARE HIGH [...] with any concerns. dr. gely duncan - [facility] - hand specialist [...] if they worsen. XRAY LEFT FOOT AND T OES . Left foot, 1st and 2nd toe pain-suspec t fracture of left great toe-will obtain xrays and proceed as indicated. Patient verbalized understanding of plan. recommend Shingles v accine . Medicare Exam [...] for health care surrogate. vitamin B12 liquid 2 000mcg daily - [facility] sells the liquid b12 folic acid [...] - vitamin B12 liquid 2000mcg daily - [facility] sells the liquid b12, folic acid - take daily. metanex 1 capsule twice daily - call office if this seems to help decrease nerve pain increase the night-time dosing of gabapentin to 300mg in AM, Noon, 6pm and 10pm qunol - co-enzyme q1 0 supplementation to [...]
--- OUTSIDE RECORDS SUMMARY | 2019-06-07 16:20 | XMS REPORT | CCD ---
Author Author Dalila Falk Organization Shannon Falk MD, [facility] Address [address] [place] [address] Phone Care Team Providers Care Management And Budget Analyst Name Role Phone PP Unavailable CCM Unavailable Summary Purpose Interface Exchange Insurance Providers Payer name Policy type / Coverage type Covered alliance party ID Effective Begin Date Effective End Date WPS Medicare Part B Medicare Part B [id number] Unknown Lao [employer] Insurance M edicare Part B [id number] Unkn own Family history Brother Diagnosis Age [...] Unknown 2 07/10/[address]: 576989099 Has never smoked or chewed tobacco 07/10/2014 Alcohol history Unknown occasionally drinks alcohol 07/10/2014 Allergies, Adverse Reactions, Alerts Substance Reaction Codes Entered Date Inactivated Date Status Remicade hives RxNorm: 749731 03/24/2017 No Inactive Date Active * NO [...] 7.5 mg-a cetaminophen 325 mg tablet RxNorm: 763860 1-2 Tablet(s) PO Q4H as needed 10/01/2018 10/15/2018 Active Synthroid 75 mcg tablet RxNorm: 493189 TAKE 1 TABLET BY MOUTH EVERY DAY 07/27/2018 02/21/2019 Ac tive Generic For:*SYNTHROID 0.075MG TAB 08/2018 9:45:14 AM N O T I C E Last quantity doesn't match original quantity Lipitor 20 mg tablet RxNorm: 122307 1 Tablet(s) PO QPM 05/08/2018 05/02/2019 Active Benicar 40 mg tablet RxNorm: 780946 1 Tablet(s) PO daily 05/08/2018 05/02/2019 Active Celebrex 200 mg capsule RxNorm: 074083 1 Capsule(s) PO BID 05/03/2018 04/27/2019 Active citalopram 20 mg tablet RxNorm: 268441 Tablet(s) TAKE ONE (1) TABLET BY MOUTH D AILY 05/03/2018 04/27/2019 Ac tive hydrocodone 7.5 mg-a cetaminophen 325 mg tablet RxNorm: 534109 1-2 Tablet(s) PO Q4H as needed 05/01/2018 05/15/2018 Inactive cefdinir 300 mg capsule RxNorm: 615175 1 Capsule(s) PO BID 04/17/2018 04/23/2018 Inactive cefdinir 300 mg capsule RxNorm: 759275 1 Capsule(s) PO BID 04/17/2018 04/16/2018 Inactive clobetasol 0.05 % to pical cream RxNorm: 036075 1 dime size amount Ap plication TOP daily as needed vaginal irritation 03/27/2018 07/24/2018 Inactive metoprolol succinate ER 25 mg tablet,extended release 24 hr RxNorm: 220733 1 Tablet(s) PO daily 03/27/2018 10/22/2018 Active Synthroid 75 mcg tablet RxNorm: 546294 Tablet(s) TAKE 1 TABLET BY MOUTH DAILY 02/07/2018 07/26/2018 In active Generic For:*SYNTHROID 0.075MG TAB 11/14 9:16:33 AM N O T I C E Last quantity doesn't match original quantity hydrocodone 7.5 mg-a cetaminophen 325 mg tablet RxNorm: 000738 1-2 Tablet(s) PO Q4H as needed 10/12/2017 10/26/2017 Inactive Synthroid 75 mcg tablet RxNorm: 193359 Tablet(s) TAKE 1 TABLET BY MOUTH DAILY 08/09/2017 02/06/2018 In active Generic For:*SYNTHROID 0.075MG TAB 10/22 9:16:33 AM N O T I C E Last quantity doesn't match original quantity hydrocodone 7.5 mg-a cetaminophen 325 mg tablet RxNorm: 794342 1-2 Tablet(s) PO Q4H as needed 05/22/2017 06/20/2017 Inactive amlodipine 10 mg tablet RxNorm: 228203 1 Tablet(s) PO daily 1 Tablet(s) PO ashlie y 05/09/2017 09/26/2017 In active citalopram 20 mg tablet RxNorm: 148399 Tablet(s) TAKE ONE (1) TABLET BY MOUTH D AILY 05/09/2017 05/02/2018 Inactive losartan 100 mg tablet RxNorm: 075964 1 Tablet(s) PO daily TAKE 1 TABLET BY MO UTH DAILY 05/09/2017 01/01/2018 Inactive gabapentin 300 mg ca psule RxNorm: 779725 1 Capsule(s) PO daily 03/24/2017 No Stop Date Active Celebrex 200 mg capsule RxNorm: 772161 1 Capsule(s) PO BID 1 Capsule(s) PO ashlie y 03/24/2017 03/23/2017 In active Celebrex 200 mg capsule RxNorm: 238943 1 Capsule(s) PO BID 03/24/2017 03/18/2018 Inactive amlodipine 10 mg tablet RxNorm: 738474 1 Tablet(s) PO daily 1 Tablet(s) PO ashlie y 03/24/2017 05/08/2017 In active Lipitor 40 mg tablet RxNorm: 392800 Tablet(s) TAKE ONE TABLET BY MOUTH AT BE DTINM 02/14/2017 09/26/2017 Inactive hydrocodone 7.5 mg-a cetaminophen 325 mg tablet RxNorm: 265520 1-2 Tablet(s) PO Q4H as needed 01/16/2017 02/14/2017 Inactive scopolamine 1.5 mg t ransdermal patch (1 mg over 3 days) RxNorm: 668451 1 Patch TD Q72H 11/25/2016 12/04/2016 Inactive scopolamine 1.5 mg t ransdermal patch (1 mg over 3 days) RxNorm: 574364 1 Patch TD Q72H 11/25/2016 11/24/2016 Inactive losartan 100 mg tablet RxNorm: 306463 1 Tablet(s) PO daily TAKE 1 TABLET BY MO UT DAILY 11/14/2016 05/08/2017 Inactive Generic For:COZAAR 100MG TA B 05/17/2016 8:31:51 AM Synthroid 75 mcg tablet RxNorm: 759513 TAKE 1 TABLET BY MOUTH DAILY 11/14/2016 06/11/2017 Inactive Generic For:*SYNTHROID 0.075MG TAB 10/22 9:16:33 AM N O T I C E Last quantity doesn't match original quantity citalopram 20 mg tablet RxNorm: 787884 TAKE ONE (1) TABLET BY MOUTH DAILY 11/14/2016 05/08/2017 In active Generic For:CELEXA 20MG TAB 11/14/2016 8:30:49 AM N O T I C E Last quantity doesn't match original quantity prednisone 10 mg tab lets in a dose pack RxNorm: 931715 1 Tablet(s) PO UD 09/30/2016 10/05/2016 In active 6-5-4-3-2-1 hydrocodone 7.5 mg-a cetaminophen 325 mg tablet RxNorm: 581208 1-2 Tablet(s) PO Q4H as needed 09/20/2016 01/15/2017 Inactive amlodipine 5 mg tablet RxNorm: 130909 TAKE ONE TABLET BY MOUTH EVERY DAY 08/15/2016 03/23/2017 In active Generic For:NORVASC 5 MG TABLET 017 3:56:26 PM N O T I C E Last quantity doesn't match original quantity Kenalog 40 mg/mL [place] pension for injection RxNorm: 0252436 1 Milliliter(s) Inj 08/08/2016 08/08/2016 In active prednisone 10 mg tab lets in a dose pack RxNorm: 877138 1 Tablet(s) PO UD 08/08/2016 08/07/2016 In active prednisone 10 mg tab lets in a dose pack RxNorm: 135728 1 Tablet(s) PO UD 08/08/2016 08/13/2016 In active 6-5-4-3-2-1 Diflucan 150 mg tablet RxNorm: 292482 1 Tablet(s) PO daily 06/27/2016 07/10/2016 Inactive Synthroid 75 mcg tablet RxNorm: 941358 TAKE 1 TABLET BY MOUTH DAILY 06/16/2016 11/13/2016 Inactive Generic For:*SYNTHROID 0.075MG TAB pt wo uld like a 90 day supply N O T I C E Last quantity doesn't match original quantity hydrocodone 7.5 mg-a cetaminophen 325 mg tablet RxNorm: 331306 1-2 Tablet(s) PO Q4H as needed 06/06/2016 09/19/2016 Inactive citalopram 20 mg tablet RxNorm: 265861 TAKE ONE (1) TABLET BY MOUTH DAILY 05/18/2016 11/13/2016 In active Generic For:CELEXA 20MG TAB 05/17/2016 8:32:02 AM Celebrex 200 mg capsule RxNorm: 691070 1 Capsule(s) PO daily 05/17/2016 03/23/2017 Inactive losartan 100 mg tablet RxNorm: 914091 TAKE 1 TABLET BY MOUTH DAILY 05/17/2016 11/12/2016 Inactive Generic For:COZAAR 100MG TAB 05/17/2016 8:31:51 AM amlodipine 5 mg tablet RxNorm: 511714 1 Tablet(s) PO daily 05/10/2016 08/14/2016 Inactive Cipro 500 mg tablet RxNorm: 214497 1 Tablet(s) PO BID 05/04/2016 05/03/2016 Inactive Cipro 500 mg tablet RxNorm: 066811 1 Tablet(s) PO BID 05/04/2016 05/13/2016 Inactive Diflucan 150 mg tablet RxNorm: 602590 1 Tablet(s) PO daily 04/18/2016 05/01/2016 Inactive Monistat Soothing Ca re 1.2 % topical gel RxNorm: 5831933 1 Application TOP BI D 03/07/2016 01/01/2018 In active Diflucan 150 mg tablet RxNorm: 626411 1 Tablet(s) PO daily 03/07/2016 03/13/2016 Inactive Lipitor 40 mg tablet RxNorm: 966482 Tablet(s) TAKE ONE TABLET BY MOUTH AT BE DTINM 02/23/2016 02/13/2017 Inactive citalopram 20 mg tablet RxNorm: 398471 TAKE ONE (1) TABLET BY MOUTH DAILY 02/18/2016 05/17/2016 In active Generic For:CELEXA 20MG TAB refill reque st losartan 100 mg tablet RxNorm: 111036 Tablet(s) 1 Tablet, 1 time per Day 02/09/2016 05/16/2016 In active INSURANCE WILL NOT COVER ADELA ANDREWS UNTIL OTHER FORMULARIES HAVE BEEN TRIED AND FAILED hydrocodone 7.5 mg-a cetaminophen 325 mg tablet RxNorm: 892908 1-2 Tablet(s) PO Q4H as needed 02/03/2016 06/05/2016 Inactive Synthroid 75 mcg tablet RxNorm: 429806 Tablet(s) TAKE 1 TABLET BY MOUTH DAILY 01/19/2016 06/15/2016 In active Generic For:*SYNTHROID 0.075MG TAB 08/0 04/2014 10:00:02 AM N O T I C E PRESCRIPTION PREVIOUSLY AUTHORIZED BY DOCTOR:SWATI BEY prednisone 10 mg tab lets in a dose pack RxNorm: 640538 1 Tablet(s) PO UD 01/07/2016 02/22/2016 In active 6-5-4-3-2-1 amlodipine 10 mg tablet RxNorm: 309291 1 Tablet(s) PO daily 12/07/2015 11/30/2016 Inactive citalopram 20 mg tablet RxNorm: 220905 TAKE ONE (1) TABLET BY MOUTH DAILY 11/17/2015 02/14/2016 In active Generic For:CELEXA 20MG TAB refill reque st hydrocodone 7.5 mg-a cetaminophen 325 mg tablet RxNorm: 730091 1-2 Tablet(s) PO Q4H as needed 10/08/2015 02/02/2016 Inactive losartan 100 mg tablet RxNorm: 129704 Tablet(s) 1 Tablet, 1 time per Day 2015 02/07/2016 In active INSURANCE WILL NOT COVER ADELA ANDREWS UNTIL OTHER FORMULARIES HAVE BEEN TRIED AND FAILED citalopram 20 mg tablet RxNorm: 604155 TAKE ONE (1) TABLET BY MOUTH DAILY 08/10/2015 11/07/2015 In active Generic For:CELEXA 20MG TAB 08/10/2015 8:59:58 AM Synthroid 75 mcg tablet RxNorm: 442621 Tablet(s) TAKE 1 TABLET BY MOUTH DAILY 05/26/2015 12/21/2015 In active Generic For:*SYNTHROID 0.075MG TAB 04/2014 10:00:02 AM N O T I C E PRESCRIPTION PREVIOUSLY AUTHORIZED BY DOCTOR:SWATI BEY prednisone 20 mg tablet RxNorm: 014120 2 Tablet(s) PO daily 05/26/2015 05/30/2015 Inactive Lipitor 40 mg tablet RxNorm: 426557 TAKE ONE TABLET BY MOUTH AT BEDTIME 05/14/2015 02/07/2016 In active Generic For:LIPITOR 40MG TAB 05/13/2015 8:26:33 AM N O T I C E PRESCRIPTION PREVIOUSLY AUTHORIZED BY DOCTOR:SWATI BEY hydrocodone 7.5 mg-a cetaminophen 325 mg tablet RxNorm: 355607 1-2 Tablet(s) PO Q4H as needed 05/11/2015 10/07/2015 Inactive Celebrex 200 mg capsule RxNorm: 221437 1 Capsule(s) PO daily 05/07/2015 04/30/2016 Inactive citalopram 20 mg tablet RxNorm: 146914 TAKE ONE (1) TABLET BY MOUTH DAILY 04/27/2015 07/25/2015 In active Generic For:CELEXA 20MG TAB 04/26/2015 7:30:08 PM gabapentin 300 mg ca psule RxNorm: 667358 1 Capsule(s) PO QID 04/09/2015 04/02/2016 Inactive citalopram 20 mg tablet RxNorm: 179234 TAKE ONE (1) TABLET BY MOUTH DAILY 01/26/2015 04/25/2015 In active Generic For:CELEXA 20MG TAB 01/26/2015 8:40:11 AM losartan 100 mg tablet RxNorm: 669378 1 Tablet, 1 time per Day 01/26/2015 03/29/2015 Inactive INSURANCE WILL NOT COVER ADELA ANDREWS UNTIL OTHER FORMULARIES HAVE BEEN TRIED AND FAILED hydrocodone 7.5 mg-a cetaminophen 325 mg tablet RxNorm: 088414 1-2 Tablet(s) PO Q4H as needed 01/23/2015 05/10/2015 Inactive Neurontin 100 mg cap almaz RxNorm: 081018 1 Capsule(s) PO TID 01/14/2015 03/09/2015 Inactive Neurontin 100 mg cap almaz RxNorm: 528231 1 Capsule(s) PO TID 01/14/2015 01/13/2015 Inactive Keflex 500 mg capsule RxNorm: 340780 1 Capsule(s) PO TID 01/06/2015 01/05/2015 Inactive Keflex 500 mg capsule RxNorm: 081075 1 Capsule(s) PO TID 01/06/2015 01/12/2015 Inactive hydrocodone 7.5 mg-a cetaminophen 325 mg tablet RxNorm: 215743 1-2 Tablet(s) PO Q4H as needed 12/29/2014 01/22/2015 Inactive Duexis 800 mg-26.6 m g tablet RxNorm: 9416339 1 Tablet(s) PO TID a s needed 12/19/2014 03/29/2015 In active Duexis 800 mg-26.6 m g tablet RxNorm: 6653017 1 Tablet(s) PO TID a s needed 12/19/2014 12/18/2014 In active Kenalog 40 mg/mL [place] pension for injection RxNorm: 4548070 1 Milliliter(s) Inj 12/09/2014 12/09/2014 In active prednisone 10 mg tab lets in a dose pack RxNorm: 415879 1 Tablet(s) PO UD 12/09/2014 12/14/2014 In active 6-5-4-3-2-1 amlodipine 10 mg tablet RxNorm: 689186 1 Tablet(s) PO daily 11/13/2014 11/07/2015 Inactive citalopram 20 mg tablet RxNorm: 174659 TAKE ONE (1) TABLET BY MOUTH DAILY 10/23/2014 01/20/2015 In active Generic For:CELEXA 20MG TAB 10/23/2014 4:32:02 PM N O T I C E PRESCRIPTION PREVIOUSLY AUTHORIZED BY DOCTOR:SWATI BEY hydrocodone 7.5 mg-a cetaminophen 325 mg tablet RxNorm: 541645 1-2 Tablet(s) PO Q4H as needed 10/22/2014 12/28/2014 Inactive Synthroid 75 mcg tablet RxNorm: 911048 TAKE 1 TABLET BY MOUTH DAILY 09/22/2014 04/19/2015 Inactive Generic For:*SYNTHROID 0.075MG TAB 04/2014 10:00:02 AM N O T I C E PRESCRIPTION PREVIOUSLY AUTHORIZED BY DOCTOR:SWATI BEY amlodipine 5 mg tablet RxNorm: 443979 1 Tablet(s) PO daily 08/25/2014 11/12/2014 Inactive Synthroid 75 mcg tablet RxNorm: 901772 1 Tablet(s) PO daily ecept a 1/2 tab on Monday07/11/2014 09/21/2014 Inactive Flonase Allergy Reli ef 50 mcg/actuation nasal spray,suspension RxNorm: 1 [place] NASAL BID 07/10/2014 12/06/2014 Inactive methotrexate sodium 2.5 mg tablet RxNorm: 386539 3 Tablet(s) PO weekly No Start Date 04/08/2015 Inactive Aldactone 25 mg tablet RxNorm: 758698 1 Tablet(s) PO daily No Start Date 03/26/2018 Inactive gabapentin 300 mg ca psule RxNorm: 058390 1 Capsule(s) PO TID No Start Date 04/08/2015 Inactive Plaquenil 200 mg tablet RxNorm: 812545 1 Tablet(s) PO BID No Start Date 05/22/2016 Inactive losartan 100 mg tablet RxNorm: 864989 1 Tablet(s) PO daily No Start Date 01/25/2015 Inactive Benicar 20 mg tablet RxNorm: 511396 1 Tablet(s) PO daily No Start Date 05/07/2018 Inactive Remicade intravenous RxNorm: 985478 intravenous No Start Date 03/23/2017 Inactive amlodipine 5 mg tablet RxNorm: 930499 1 Tablet(s) PO daily No Start Date 08/24/2014 Inactive Celebrex 200 mg capsule RxNorm: 213646 1 Capsule(s) PO daily No Start Date 10/16/2017 Inactive citalopram 20 mg tablet RxNorm: 250419 1 Tablet(s) PO daily No Start Date 10/22/2014 Inactive Synthroid 88 mcg tablet RxNorm: 586169 1 Tablet(s) PO daily No Start Date 07/09/2014 Inactive Arava 20 mg tablet RxNorm: 091662 1 Tablet(s) PO daily No Start Date 01/01/2018 Inactive Lipitor 40 mg tablet RxNorm: 922442 1 Tablet(s) PO daily No Start Date 05/13/2015 Inactive chlorthalidone 25 mg tablet RxNorm: 703083 1 Tablet(s) PO daily No Start Date 03/26/2018 Inactive Synthroid 75 mcg tablet RxNorm: 111412 1 Tablet(s) PO daily No Start Date 07/10/2014 Inactive hydrocodone 7.5 mg-a cetaminophen 325 mg tablet RxNorm: 953735 Tablet(s) PO as neede d No Start Date 10/21/2014 Inactive Medication Administered Medication Codes Instruc tions Start Date Status Kenalog 40 mg/mL suspension for injection RxNorm: 0559932 1Milliliter 08/08/2016 N o longer Active Kenalog 40 mg/mL suspension for injection RxNorm: 2341755 1Milliliter 12/09/2014 N o longer Active Immunizations [...] Observation Code Item Item Code Result Date Free T4 Mgh558 FREE T4 0.86 ng/dL 05/07/2018 Comp Metabolic Fge737 NA 138 mEq/L 05/07/2018 Comp Metabolic Gox819 K 4.2 mEq/L 05/07/2018 Comp Metabolic Xon069 CL 104 mEq/L 05/07/2018 Comp Metabolic Fnt046 CO2 28.0 mEq/L 05/07/2018 Comp Metabolic Wjp014 AN ION GAP 10 05/07/2018 Comp Metabolic Qgf413 GL UCOSE 108 mg/dL 05/07/2018 Comp Metabolic Ccx247 Cr eat 0.9 mg/dL 05/07/2018 Comp Metabolic Lvw568 eG FR 71 ml/min/1.73m2 05/07 Comp Metabolic Qfp710 BUN 15 mg/dL 05/07/2018 Comp Metabolic Kto755 B/ C Ratio 17.6 Ratio 05/07/2018 Comp Metabolic Awj640 CA LCIUM 9.5 mg/dL 05/07/2018 Comp Metabolic Pap712 AL K PHOS 100 U/L 05/07/2018 Comp Metabolic Dgo336 T(SGOT) 17 U/L 05/07/2018 Comp Metabolic Vos641 AL T(SGPT) 11 U/L 05/07/2018 Comp Metabolic Dzi950 BI LI T 0.4 mg/dL 05/07/2018 Comp Metabolic Ijn611 AL BUMIN 3.9 g/dL 05/07/2018 Comp Metabolic Pgt659 TP RO 6.3 g/dL 05/07/2018 Comp Metabolic Bsh930 GL OB 2.4 g/dL 05/07/2018 Comp Metabolic Zqr437 A/ G Ratio 1.6 Ratio 05/07/2018 Comp Metabolic Ksf972 Os mo 277 mOsmo 05/07/2018 Cbc With [...] 31.6 % 05/07/2018 Cbc With Differential Ord2 [place]% 9.7 % 05/07/2018 Cbc With Differential Ord2 [...] 2.02 K/ul 05/07/2018 Cbc With Differential Ord2 [place] ABS# 0.6 K/ul 05/07/2018 Cbc With Differential [...] 31.1 pg 12/26/2017 Cbc With Differential Ord2 [place]% 9.2 % 12/26/2017 Cbc With Differential Ord2 [...] 1.53 K/ul 12/26/2017 Cbc With Differential Ord2 [place] ABS# 0.7 K/ul 12/26/2017 Cbc With Differential Ord2 Eos ABS# 0.1 K/ul 12/26/2017 Cbc With Differential Ord2 Baso ABS# 0.0 K/ul 12/26/2017 Free T4 Wys599 FREE T4 0.93 ng/dL 12/26/2017 Comp Metabolic Vvu203 NA 135 mEq/L 12/26/2017 Comp Metabolic Blm493 K 4.4 mEq/L 12/26/2017 Comp Metabolic Vum900 CL 98 mEq/L 12/26/2017 Comp Metabolic Lye078 CO2 28.0 mEq/L 12/26/2017 Comp Metabolic Mzv580 AN ION GAP 13 12/26/2017 Comp Metabolic Qcb332 GL UCOSE 92 mg/dL 12/26/2017 Comp Metabolic Yld671 Cr eat 1.1 mg/dL 12/26/2017 Comp Metabolic Tjd517 eG FR 52 ml/min/1.73m2 12/26 Comp Metabolic Szy662 BUN 25 mg/dL 12/26/2017 Comp Metabolic Chk656 B/ C Ratio 22.7 Ratio 12/26/2017 Comp Metabolic Qwg942 CA LCIUM 9.8 mg/dL 12/26/2017 Comp Metabolic Wcg412 AL K PHOS 91 U/L 12/26/2017 Comp Metabolic Fvd546 T(SGOT) 16 U/L 12/26/2017 Comp Metabolic Api720 AL T(SGPT) 12 U/L 12/26/2017 Comp Metabolic Cug620 BI LI T 0.5 mg/dL 12/26/2017 Comp Metabolic Lnj134 AL BUMIN 4.3 g/dL 12/26/2017 Comp Metabolic Aak325 TP RO 6.8 g/dL 12/26/2017 Comp Metabolic Ltk057 GL OB 2.5 g/dL 12/26/2017 Comp Metabolic Fgg578 A/ G Ratio 1.7 Ratio 12/26/2017 Comp Metabolic Uzn579 Os mo 274 mOsmo 12/26/2017 Urine Culture Ucult Prel iminary NO Growth Day 1 06/29 Urine Culture Ucult Comp lete NO Growth Day 2 06/29 Culture Urine [id number] URI NE CULTURE SEE NOTES 04/22/2016 Culture Urine [id number] Con tinued Results 04/22/2016 Urine Culture Ucult Comp lete >100,000 col/ml aerobic grow th sent to ref lab 04/20/2016 Comp Metabolic Ojb142 NA 137 mEq/L 02/10/2016 Comp Metabolic Uer652 K 4.1 mEq/L 02/10/2016 Comp Metabolic Fgh556 CL 102 mEq/L 02/10/2016 Comp Metabolic Rqf960 CO2 28.0 mEq/L 02/10/2016 Comp Metabolic Cjp492 AN ION GAP 11 02/10/2016 Comp Metabolic Uhw388 GL UCOSE 104 mg/dL 02/10/2016 Comp Metabolic Ojz923 Cr eat 0.7 mg/dL 02/10/2016 Comp Metabolic Xwv910 eG FR 83 ml/min/1.73m2 02/09 Comp Metabolic Vja240 BUN 14 mg/dL 02/10/2016 Comp Metabolic Rdf383 B/ C Ratio 18.9 Ratio 02/10/2016 Comp Metabolic Xya266 CA LCIUM 9.7 mg/dL 02/10/2016 Comp Metabolic Dck887 AL K PHOS 121 U/L 02/10/2016 Comp Metabolic Nvd072 T(SGOT) 19 U/L 02/10/2016 Comp Metabolic Pnh632 AL T(SGPT) 13 U/L 02/10/2016 Comp Metabolic Ony743 BI LI T 0.5 mg/dL 02/10/2016 Comp Metabolic Pyz172 AL BUMIN 4.3 g/dL 02/10/2016 Comp Metabolic Jtk487 TP RO 6.8 g/dL 02/10/2016 Comp Metabolic Epn987 GL OB 2.5 g/dL 02/10/2016 Comp Metabolic The812 A/ G Ratio 1.7 Ratio 02/10/2016 Comp Metabolic Dog934 Os mo 275 mOsmo 02/10/2016 Lipid Ord30 CHOL 229 mg/dL 02/10/2016 Lipid Ord30 HDL 59.0 mg/dl 02/10/2016 Lipid Ord30 TRIG 252 mg/dL 02/10/2016 Lipid Ord30 LDL 120 mg/dL 02/10/2016 Lipid Ord30 C/HDL 3.9 Ratio 02/10/2016 Free T4 Lur262 FREE T4 0.87 ng/dL 02/10/2016 Tsh Ord6 [...] 29.2 pg 02/10/2016 Cbc With Differential Ord2 [place]% 18.6 % 02/10/2016 Cbc With Differential Ord2 [...] 1.81 K/ul 02/10/2016 Cbc With Differential Ord2 [place] ABS# 1.1 K/ul 02/10/2016 Cbc With Differential Ord2 Eos ABS# 0.1 K/ul 02/10/2016 Cbc With Differential Ord2 Baso ABS# 0.1 K/ul 02/10/2016 Tsh Ord6 hTSH II 0.85 uIU/mL 04/02/2015 Lipid Ord30 CHOL 207 mg/dL 04/02/2015 Lipid Ord30 HDL 68.0 mg/dl 04/02/2015 Lipid Ord30 TRIG 193 mg/dL 04/02/2015 Lipid Ord30 LDL 100 mg/dL 04/02/2015 Lipid Ord30 C/HDL 3.0 Ratio 04/02/2015 Free T4 Mgi545 FREE T4 1.09 ng/dL 04/02/2015 Free T4 Nfq763 FREE T4 0.82 ng/dL 10/15/2014 Tsh Ord6 [...] lips 03/27/2018 None Full Exam - General 1994 Ears/Nose/Throat lips/teeth/gingiva Overall: normal dentition 03/27/2018 None [...] fourth 03/27/2018 None Full Exam - General 1995 Musculoskeletal digits and nails DIPs: fifth 03/27/2018 [...] masses 03/24/2017 None Full Exam - General 1995 Respiratory auscultation Overall: breath sounds clear bilaterally 03/24/2017 None Full Exam - General 1994 Respiratory respiratory effort/rhythm Overall: no retractions 03/24/2017 None Full Exam - General 1995 Respiratory respiratory effort/rhythm Overall: normal rate 03/24/2017 None Full Exam - General 1995 Cardiovascular extremities Overall: no clubbing 03/24/2017 None [...] General 1995 Ears/Nose/Throat lips/teeth/gingiva Overall: benign lips 02/23/2016 None [...] dorsiflexors 03/10/2015 weak Full Exam - General 1995 Musculoskeletal lower extremity Muscle Strength/Tone - ankle: [...] 1: 146/80 Code: 8480-6 BMI: 31.9 Code: 78240-7 Heart Rate 1: 80 bpm Height: 5'4" SpO2: 97% Weight: 186 lbs 06/12/2018 Blood Pressure 1: 124/74 Code: 8480-6 BMI: 31.6 Code: 74294-6 Heart Rate 1: 55 bpm Height: 5'4" SpO2: 99% Weight: 184 lbs 05/08/2018 Blood Pressure 1: 148/84 Code: 8480-6 BMI: 31.8 Code: 84479-9 Heart Rate 1: 60 bpm Height: 5'4" SpO2: 96% Weight: 185 lbs 03/27/2018 Blood Pressure 1: 142/84 Code: 8480-6 BMI: 31.2 Code: 28282-0 Heart Rate 1: 75 bpm Height: 5'4" SpO2: 97% Weight: 182 lbs 01/02/2018 Blood Pressure 1: 136/68 Code: 8480-6 BMI: 32.4 Code: 32668-4 Heart Rate 1: 80 bpm Height: 5'4" SpO2: 99% Waist Measure (cm): 104 cm Weight: 189 lbs 12/26/2017 Blood Pressure 1: 138/72 Code: 8480-6 BMI: 31.4 Code: 52691-8 Heart Rate 1: 72 bpm Height: 5'4" SpO2: 96% Weight: 183 lbs 10/17/2017 Blood Pressure 1: 156/72 Code: 8480-6 BMI: 31.4 Code: 71284-9 Heart Rate 1: 81 bpm Height: 5'4" SpO2: 98% Temperature: 36.5 (C ) / 97.7 (F) Weight: 183 lbs 09/27/2017 Blood Pressure 1: 140/82 Code: 8480-6 BMI: 32.1 Code: 17641-1 Heart Rate 1: 82 bpm Height: 5'4" SpO2: 98% Weight: 187 lbs 07/31/2017 Blood Pressure 1: 138/82 Code: 8480-6 Heart Rate 1: 87 bpm SpO2: 99% 03/24/2017 Blood Pressure 1: 146/86 Code: 8480-6 BMI: 31.8 Code: 70656-0 Heart Rate 1: 79 bpm Height: 5'4" SpO2: 96% Temperature: 36.4 (C ) / 97.5 (F) Weight: 185 lbs 08/30/2016 Blood Pressure 1: 142/88 Code: 8480-6 BMI: 31.6 Code: 80223-9 Heart Rate 1: 80 bpm Height: 5'4" SpO2: 93% Weight: 184 lbs 08/08/2016 Blood Pressure 1: 142/76 Code: 8480-6 BMI: 29.9 Code: 42173-3 Heart Rate 1: 80 bpm Height: 5'4" SpO2: 94% Weight: 174 lbs 06/27/2016 Blood Pressure 1: 156/72 Code: 8480-6 BMI: 30.6 Code: 27422-4 Heart Rate 1: 78 bpm Height: 5'4" SpO2: 95% Weight: 178 lbs 05/23/2016 Blood Pressure 1: 146/84 Code: 8480-6 Heart Rate 1: 66 bpm Height: 5'4" SpO2: 94% 04/18/2016 Blood Pressure 1: 148/84 Code: 8480-6 BMI: 30.2 Code: 72116-4 Heart Rate 1: 81 bpm Height: 5'4" SpO2: 97% Weight: 176 lbs 03/07/2016 Blood Pressure 1: 130/78 Code: 8480-6 BMI: 30.0 Code: 13764-6 Heart Rate 1: 85 bpm Height: 5'4" SpO2: 96% Weight: 175 lbs 02/23/2016 Blood Pressure 1: 140/78 Code: 8480-6 BMI: 29.7 Code: 60213-7 Heart Rate 1: 74 bpm Height: 5'4" SpO2: 95% Weight: 173 lbs 09/15/2015 Blood Pressure 1: 140/88 Code: 8480-6 BMI: 29.4 Code: 42668-5 Heart Rate 1: 81 bpm Height: 5'4" SpO2: 97% Weight: 171 lbs 8 oz 05/26/2015 Blood Pressure 1: 150/80 Code: 8480-6 BMI: 31.6 Code: 68865-3 Heart Rate 1: 70 bpm Height: 5'4" SpO2: 96% Weight: 184 lbs 04/09/2015 Blood Pressure 1: 136/74 Code: 8480-6 BMI: 31.4 Code: 88352-3 Heart Rate 1: 91 bpm Height: 5'4" SpO2: 94% Weight: 183 lbs 03/30/2015 Blood Pressure 1: 130/72 Code: 8480-6 BMI: 30.9 Code: 97165-0 Heart Rate 1: 80 bpm Height: 5'4" SpO2: 97% Waist Measure (cm): 102 cm Weight: 180 lbs 03/10/2015 Blood Pressure 1: 152/80 Code: 8480-6 BMI: 31.1 Code: 31357-2 Heart Rate 1: 66 bpm Height: 5'4" SpO2: 98% Weight: 181 lbs 12/16/2014 Blood Pressure 1: 132/88 Code: 8480-6 Blood Pressure 1: 132/88 Code: 8480-6 Heart Rate 1: 88 bpm SpO2: 98% Weight: 183 lbs 12/09/2014 Blood Pressure 1: 140/82 Code: 8480-6 BMI: 31.2 Code: 26478-8 Heart Rate 1: 105 bpm Height: 5'4" SpO2: 93% Weight: 182 lbs 11/13/2014 Blood Pressure 1: 148/88 Code: 8480-6 BMI: 31.8 Code: 03349-4 Heart Rate 1: 54 bpm Height: 5'4" SpO2: 98% Weight: 185 lbs 07/10/2014 Blood Pressure 1: 144/96 Code: 8480-6 BMI: 31.4 Code: 87694-4 Heart Rate 1: 99 bpm Height: 5'4" [...] frantz sary hypertension 09/27/2017 None hypothyroid Quality 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 P ATIENT, LEVEL III Diagnosis: Essential (primary) hypertension[ICD10: I10] Diagnosis: Atrophy of thyroid (acquired)[ICD10: E03.4] Shannon Falk MD, C CPT-4: 32785 06/12/2018 ([id number]) [id number] EST. P ATIENT, LEVEL IV Diagnosis: Essential (primary) hypertension[ICD10: I10] Diagnosis: Atrophy of thyroid (acquired)[ICD10: E03.4] Diagnosis: Mixed hyperlipidemia[ICD10: E78.2] Shannon Falk MD, [facility] CPT- 4: 32015 05/08/2018 ([id number]) [id number] EST. P ATIENT, LEVEL III Diagnosis: Hypo-osmolality and hyponatremia[ICD10: E87.1] Shannon Falk MD, C CPT-4: 19246 03/27/2018 ([id number]) 74352 EST. P ATIENT, LEVEL IV Diagnosis: Atrophy of thyroid (acquired)[ICD10: E03.4] Diagnosis: Essential (primary) hypertension[ICD10: I10] Diagnosis: 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[ICD10: M05.741] Diagnosis: 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[ICD10: M05.742] Diagnosis: Pain in thoracic spine[ICD10: M54.6] Shannon Falk MD, [facility] CPT-4: 99224 12/26/2017 ([id number]) 91121 EST. P ATIENT, LEVEL III Diagnosis: Otalgia, left ear[ICD10: H92.02] Diagnosis: Essential (primary) hypertension[ICD10: I10] Elizabet Falk MD, [facility] CPT-4: 98589 10/17/2017 ([id number]) 00203 EST. P ATIENT, LEVEL IV Diagnosis: 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[ICD10: M05.741] Diagnosis: 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[ICD10: M05.742] Diagnosis: Atrophy of thyroid (acquired)[ICD10: E03.4] Diagnosis: Essential (primary) hypertension[ICD10: I10] Shannon Falk MD, C CPT-4: 82350 09/27/2017 ([id number]) Miscellaneou s no charge Diagnosis: Essential (primary) hypertension[ICD10: I10] Elizabet Falk MD, [facility] CPT-4: 61642 07/31/2017 ([id number]) 04430 EST. P ATIENT, LEVEL IV Diagnosis: Essential (primary) hypertension[ICD10: I10] Diagnosis: Atrophy of thyroid (acquired)[ICD10: E03.4] Diagnosis: 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[ICD10: M05.741] Diagnosis: 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[ICD10: M05.742] Shannon Falk MD, [facility] CPT-4: 82388 03/24/2017 ([id number]) 38172 EST. P ATIENT, LEVEL IV Diagnosis: Atrophy of thyroid (acquired)[ICD10: E03.4] Diagnosis: Pleurisy[ICD10: R09.1] Diagnosis: Essential (primary) hypertension[ICD10: I10] Shannon Falk MD, C CPT-4: 94736 08/30/2016 ([id number]) 12527 EST. P ATIENT, LEVEL III Diagnosis: Pleurisy[ICD10: R09.1] Elizabet Falk MD, [facility] CPT-4: 06525 08/08/2016 16411 EST. PATIENT, LEVEL III Diagnosis: Dysuria[ICD10: R30.0] Diagnosis: Other pruritus[ICD10: L29.8] Shila Falk MD, [facility] CPT-4: 57756 06/27/2016 ([id number]) 78623 EST. P ATIENT, LEVEL III Diagnosis: Pain in left foot[ICD10: M79.672] Diagnosis: Pain in left toe(s)[ICD10: M79.675] Elizabet Falk MD, [facility] CPT-4: 47962 05/23/2016 55079 EST. PATIENT, LEVEL III Diagnosis: Candidiasis of vulva and vagina[ICD10: B37.3] Diagnosis: Dysuria[ICD10: R30.0] Shila Falk MD, [facility] CPT-4: 01147 04/18/2016 05445 EST. PATIENT, LEVEL III Diagnosis: Other pruritus[ICD10: L29.8] Diagnosis: Candidiasis of vulva and vagina[ICD10: B37.3] Shila Falk MD, [facility] CPT-4: 09805 03/07/2016 ([id number]) 64878 EST. 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 P ATIENT, LEVEL IV Diagnosis: Essential (primary) hypertension[ICD10: I10] Diagnosis: Mixed hyperlipidemia[ICD10: E78.2] Diagnosis: Major depressive disorder, single episode, unspecified[ICD10: F32.9] Shannon Falk MD, [facility] CPT-4: 56885 09/15/2015 97574 EST. PATIENT, LEVEL III Diagnosis: Rash and other nonspecific skin eruption[ICD10: R21] Shila Falk MD, [facility] CPT-4: 53721 05/26/2015 ([id number]) 24796 EST. P ATIENT, LEVEL IV Diagnosis: Essential (primary) hypertension[ICD10: I10] Diagnosis: Foot drop, left foot[ICD10: M21.372] Diagnosis: Sacroiliitis, not elsewhere classified[ICD10: M46.1] Shannon Falk MD, [facility] CPT-4: 66270 04/09/2015 ([id number]) 26808 EST. 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 P ATIENT, LEVEL III Diagnosis: Trochanteric bursitis, left hip[ICD10: M70.62] Diagnosis: Iliotibial band syndrome, left leg[ICD10: M76.32] Diagnosis: Sciatica, left side[ICD10: M54.32] Elizabet Falk MD, [facility] CPT-4: 23105 12/16/2014 ([id number]) 36777 EST. P ATIENT, LEVEL III Diagnosis: Sciatica, left side[ICD10: M54.32] Diagnosis: Sacroiliitis, not elsewhere classified[ICD10: M46.1] Elizabet Falk MD, [facility] CPT-4: 26067 12/09/2014 ([id number]) 61386 EST. 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] Diagnosis: Carpal tunnel syndrome, unspecified upper limb[ICD10: G56.00] Shannon Falk MD, [facility] CPT-4: 08511 11/13/2014 ([id number]) OFFICE VISI T, NEW - LEVEL 4 Diagnosis: ESSENTIAL HYPERTENSION[ICD9: 401.9] Diagnosis: HYPERLIPIDEMIA[ICD9: 272.4] Diagnosis: DEPRESSIVE DISORDER NEC[ICD9: 311] Diagnosis: Diarrhea[ICD9: 787.91] Shannon Falk MD, [facility] CPT-4: 59851 07/10/2014 Plan of Care Planned Activity Notes C odes Status Date Visit Plan: Hypertension - well con trolled [...] Anderson for mid thoracic back pain. 10/01/2018 Patient Education: Patient Medication Summary Completed 10/01/2018 Patient Education: Cholesterol Management Completed 10/01/2018 Care Plan: Comp Metabolic Pending 10/01/2018 Care Plan: Tsh Pending 10/01/2018 Care Plan: Lipid Pending 10/01/2018 Care Plan: Free T4 Pending 10/01/2018 Care Plan: Vitamin D 25 Oh Pending 10/01/2018 Patient Education: Patient Medication Summary Completed 08/03/2018 Visit Plan: Hypertension - well con arpited - continue with current medications, continue with [...] of control. 06/12/2018 Appointment: Shannon Falk [facility]el[facility] (15 min) Moderate 06/12/2018 Patient Education: Patient Medication Summary Completed 06/12/2018 Patient Education: Hypertension Completed 06/12/2018 Visit Plan: Hypertension - maricruz sacnhez - continue with current medications, continue with [...] of control. 05/08/2018 Appointment: Shannon Falk WPtel: [address] [place], [place] [phone] (15 min) Moderate 05/08/2018 Patient Education: Patient Medication Summary Completed 05/08/2018 Patient Education: Hypertension Completed 05/08/2018 Appointment: Shannon Falk WPtel: [address] [place], [place] [phone] (15 min) Moderate 03/28/2018 Visit Plan: Hyponatremia - continue with current treatment - gatorade/powerade, monitor electrolytes. 03/27/2018 Appointment: Shannon Falk WPtel: [address] [place], [place] [address] [place] (15 min) Moderate 03/27/2018 Patient Education: Patient Medication Summary Completed 03/27/2018 Patient Education: Patient Medication Summary Completed 02/01/2018 Appointment: Shannon Falk WPtel: [address] [place], [place] [phone] [place] (15 min) Moderate 01/22/2018 Patient Education: Patient [...] surrogate. 01/02/2018 Appointment: Elizabet Donaldson WPtel: [phone] [phone] [facility] - Annual Wellness Visit 01/02/2018 Patient Education: Patient Medication Summary Completed 01/02/2018 Visit Plan: Hypertension - well con laura [...] control. 12/26/2017 Appointment: Shannon Falk [facility]Ptel[facility] [phone] [facility] [place] (15 min) Moderate 12/26/2017 Patient Education: [...] [facility]el[facility] [phone] [phone] [place] (15 min) Moderate 10/17/2017 Patient Education: [...] home. 09/27/2017 Appointment: Shannon Falk [facility]Ptel[facility] [phone] [facility] [place] (15 min) Moderate 09/27/2017 Patient Education: Patient Medication Summary Completed 09/27/2017 Care Plan: Referral Order SNOMED-CT : 735131074 Pending 09/27/2017 Appointment: Shannon Falk WPtel[facility] [phone] [facility] [place] (15 min) Moderate 09/21/2017 Appointment: [...] daily. 03/24/2017 Appointment: Shannon Falk WPtel: [phone] [facility] [place] (15 min) Moderate 03/24/2017 Patient Education: Patient Medication Summary Completed 03/24/2017 Appointment: Shannon Falk WPtel: [facility] [place] (15 min) Moderate 03/16/2017 Appointment: Shannon Falk WPtel: [phone] [facility] (15 min) Moderate 03/01/2017 Visit Plan: [...] supportive care. 08/30/2016 Appointment: Shannon Falk WPtel: [phone] [facility] (15 min) Moderate 08/30/2016 Patient Education: Patient [...] plan. 08/08/2016 Appointment: Elizabet Donaldson WPtel: [phone] [place] [phone] [place] (30 min) Complex 08/08/2016 Patient Education: Patient Medication Summary Completed 08/08/2016 Referral: Delia Bernstein WPtel: [address] [place], [place] [phone] Referral Initiated 08/01/2016 Visit Plan: Vaginal yeast [...] will refer. 06/27/2016 Appointment: Shila Deluna WPtel: [phone] [facility] (30 min) Complex 06/27/2016 Patient Education: Patient Medication Summary Completed 06/27/2016 Care Plan: Referral Order SNOMED-CT : [id number] Pending 06/27/2016 Visit Plan: Left foot, 1st and 2nd toe pain-suspect fracture of left great toe-will obtain xrays and proceed as indicated. Patient verbalized understanding of plan. 05/23/2016 Appointment: Elizabet Donaldson WPtel: [phone] [phone] (15 min) Moderate 05/23/2016 Patient Education: Patient [...] probiotics 02/23/2016 Appointment: Shannon Falk WPtel: [phone] [facility] [place] (15 min) Moderate 02/23/2016 Patient [...] Summary Completed 09/15/2015 Appointment: Shannon Falk WPtel: [address] [place], [place] [phone] (15 min) Moderate 07/29/2015 Visit Plan: Rash [...] - vitamin B12 liquid 2000mcg daily - [facility] sells the liquid b12, folic acid - take daily. metanex 1 capsule twice daily - call office if this seems to help decrease nerve pain increase the night-time dosing of gabapentin to 300mg in AM, Noon, 6pm and 10pm 04/09/2015 Appointment: Shannon Falk WPtel[facility] [phone] [facility] (15 min) Moderate 04/09/2015 Patient Education: [...] 2012. 03/10/2015 Appointment: Shannon Falk WPtel[facility] [phone] [facility] (15 min) Moderate 03/10/2015 Patient Education: Patient Medication Summary Completed 03/10/2015 Care Plan: SCREENINGMAMMOGRAPHYDIGITAL LOINC : 44547-0 Ordered 03/10/2015 Care Plan: Referral Order SNOMED-CT : [id number] Ordered 03/10/2015 Care Plan: Referral Order SNOMED-CT : [id number] Ordered 03/10/2015 Visit Plan: Left hip bursitis/Iliot [...] Patient Medication Summary Completed 12/16/2014 Patient Education: .[employer] lliot ibial Band Rehabilitation exercises Completed 12/16/2014 Patient Education: .[employer] Exercise for [place]i [place] Completed 12/16/2014 Care Plan: Referral Order SNOMED-CT : [id number] Ordered 12/16/2014 Visit Plan: Sacroiliitis - back [...] Patient Medication Summary Completed 12/09/2014 Patient Education: .[employer] Exercise for [place] Completed 12/09/2014 Visit [...] tunnel brace. 11/13/2014 Appointment: Shannon Falk WPtel: [address] [place], [place] [phone] Follow up 11/13/2014 Patient Education: Patient Medication [...] stomach pain. ALIGN PROBIOTIC - TAKE DAILY ([employer] OR [employer] -TWO OTHER PROBIOTICS THAT ARE HIGH QUALITY) CIPROFLOXACIN TO BE TAKEN IF NEEDED IF THE DIARRHEA DOES NOT IMPROVE OR IF IT WORSENS. 07/10/2014 Appointment: Shannon Falk WPtel: [address] [place], [place] [phone] [place] (S) New Patient 07/10/2014 Patient Education: Patient Medication Summary Completed 07/10/2014 Patient Education: Hypertension Completed 07/10/2014 Referral: Darci Spann Referral Relationship Referral: External, Ordering Provider Referral Appointment Requested Referral: External, Ordering Provider 09/28 Referral info faxed to [facility] 10/03 They tried calling her with an appt and she did not answer. Called patient and she will call them back. Appoint ment Requested Referral: External, Ordering Provider Referral Appointment Requested Referral: Delia Bernstein WPtel: [address] [place] [id number] Referral Initiated Referral: External, Ordering Provider Referral Completed Instructions Comment luanne gonsalves e - look up on [employer] . Hypertension - well controlled - elgin [...] is finished, refill the 10mg pill at [facility]. carpal tunnel brace . Hypertension - [...] allergy spray. ALIGN PROBIOTIC - TAKE DAILY ([employer] OR [employer] -TWO OTHER PROBIOTICS THAT ARE HIGH QUALITY) [...] stomach pain. ALIGN PROBIOTIC - TAKE DAILY ([employer] OR [employer] -TWO OTHER PROBIOTICS THAT ARE HIGH [...] any concerns. dr. gely duncan - [facility] - hand specialist [...] vitamin B12 liquid 2 000mcg daily - [facility] sells the liquid b12 folic acid - [...] - vitamin B12 liquid 2000mcg daily - [facility] sells the liquid b12, folic acid [...]
[2019-06-07] MEDS ORDERED: CEPH-507 PO (16:21)
--- NOTE | 2019-06-07 16:23 | ED Lower Extremity ---
General Chief Complaint: Laceration Stated Complaint: R FOOT LAC Nursing Triage Note: TO ED PER W/C WAS WALKING PAST SCRAPER BLAD ON TRACTOR AND CAUGHT SIDE OF FOOT ON IT . LACERATION TO SIDE OF FOOT AND WITH BRUISNG TO TOP OF FOOT. Nursing Sepsis Screen: No Definite Risk Source: patient Exam Limitations: no limitations History of Present Illness Date Seen by Provider: Jun 07, 2019 Time Seen by Provider: 16:00 Initial Comments Laceration to the dorsal aspect lateral right foot. She was wearing a pair of Clogs outside in the yard cleaning up branches and debris when she scraped this on the corner of a tractor blade. Onset: just prior to arrival Severity: moderate Pain/Injury Location: right hip Method of Injury: fell Allergies and Home Medications Allergies Coded Allergies: Sulfa (Sulfonamide Antibiotics) (Verified Allergy, Intermediate, HIVES, 03/24/15) amlodipine (Verified Allergy, Mild, 03/18/18) swelling to lower extremities Home Medications Citalopram Hydrobromide 20 Mg Tablet, 20 MG PO DAILY, (Reported) Hydrocodone Bit/Acetaminophen 1 Each Tablet, 1 EACH PO Q4-6HR PRN for PAIN-MOD ERATE, (Reported) Levothyroxine Sodium 75 Mcg Tablet, 75 MCG PO DAILY, (Reported) Losartan Potassium 100 Mg Tablet, 100 MG PO DAILY, (Reported) Metoprolol Succinate 25 Mg Tab.er.24h, 25 MG PO DAILY Prescribed by: MELIZA LACY on 03/20/18 0850 Patient Home Medication List Home Medication List Reviewed: Yes Review of Systems Constitutional: see HPI EENTM: see HPI Respiratory: no symptoms reported Cardiovascular: no symptoms reported Genitourinary: no symptoms reported Musculoskeletal: no symptoms reported Skin: see HPI Psychiatric/Neurological: No Symptoms Reported Past Cvzrpet-Lgqrsd-Itnxvk Hx Patient Social History Alcohol Use: Denies Use Recreational Drug Use: No Smoking Status: Never a Smoker 2nd Hand Smoke Exposure: No Recent Foreign Travel: No Contact w/Someone Who Travel: No Recent Infectious Disease Expo: No Recent Hopitalizations: Yes (TOTAL KNEE REPLACEMENT RIGHT KNEE 18 DAYS AGO ) Immunizations Up To Date PED Vaccines UTD: Yes Seasonal Allergies Seasonal Allergies: No Past Medical History Surgeries: Yes Hysterectomy, Orthopedic, Tonsillectomy Respiratory: No Cardiac: Yes High Cholesterol, Hypertension Neurological: No Reproductive Disorders: No Female Reproductive Disorders: Denies [employer] History: Hysterectomy Sexually Transmitted Disease: No HIV/AIDS: No Genitourinary: No Gastroesophageal Reflux Musculoskeletal: Yes (KNEE REPLACEMENT, FOOT SURGERIES, ROTATOR CUFF SURGERY) Arthritis, Rheumatoid Arthritis Endocrine: No Hypothyroidsim HEENT: No Cancer: No Psychosocial: No Depression Integumentary: No Blood Disorders: No Family Medical History Chest pain 19 FATHER Congestive heart failure 19 FATHER Family history: Alzheimer's disease 19 MOTHER Family history: Cardiovascular disease 19 FATHER Family history: Hypertension 19 FATHER Family history: Thyroid disorder G8 SISTER Heart disease 19 FATHER Hypercholesterolemia 19 FATHER 19 MOTHER G8 BROTHER Myocardial infarction 19 FATHER Stroke 19 FATHER No Family History of: Abdominal aortic aneurysm Eleazar's disease Alcoholism Aphasia Cancer Cancer of colon Cataract Cystic fibrosis Dementia Dysphagia Family history: Diabetes mellitus Family history: Gastrointestinal disease History of - anemia History of drug abuse Human immunodeficiency virus (HIV) seropositivity Infertile Parkinson's disease Prostate cancer Psychotic disorder Seizure disorder Tuberculosis Physical Exam Vital Signs Vital Signs - First Documented 06/07/19 15:58 Temp 37.0 Pulse 68 Resp 18 B/P (MAP) 166/89 (114) Pulse Ox 99 Capillary Refill : Less Than 3 Seconds Height, Weight, BMI Height: 5'4.00" Weight: 174lbs. 6.0oz. 79.705484oj; 30.00 BMI Method:Stated General Appearance: WD/WN, no apparent distress HEENT: PERRL/EOMI, normal ENT inspection Hips: bilateral hip non-tender, bilateral hip normal inspection, bilateral hip normal range of motion Legs: bilateral leg non-tender, bilateral leg normal inspection, bilateral leg normal range of motion Knees: bilateral knee non-tender, bilateral knee normal inspection, bilateral knee normal range of motion Ankles: bilateral ankle non-tender, bilateral ankle normal inspection, bilateral ankle normal range of motion Feet: right foot other (3.5cm laceration dorsal lateral right foot. depth to sub-q tissues, muscle fascia. no exposed muscle belly. no tendon injury. minimal bleeding. no pain to the plantar surface of the foot with firm palpation--no concern for fracture. ) Neurologic/Psychiatric: alert, normal mood/affect, oriented x 3 Skin: normal color, warm/dry Procedures/Interventions Wound Location: Lower Extremities Wound Length (cm): 3.5 Wound's Depth, Shape: linear, sub Q Wound Explored: clean Irrigated w/ Saline (ccs): 100 Anesthesia: 1% Lidocaine Volume Anesthetic (ccs): 2 Suture: Prolene Suture Size: 4-0 Number of Sutures: 5 Layer Closure?: 1 Number Deep Layer Sutures: 0 Progress/Results/Core Measures Results/Orders Vital Signs/I&O 06/07/19 15:58 Temp 37.0 Pulse 68 Resp 18 B/P (MAP) 166/89 (114) Pulse Ox 99 Blood Pressure Mean: 114 Departure Impression Primary Impression: Laceration Disposition: 01 HOME, SELF-CARE Condition: Stable Departure-Patient Inst. Decision time for Depature: 16:20 Referrals: MELIZA LACY MD (PCP) Primary Care Physician Patient Instructions: Laceration Repair With Stitches (DC), Wound Care (DC) Add. Discharge Instructions: 1. Change The bandage as needed as the blood soaks through. Return to ER in about 10 days to have the stitches removed. Take the antibiotics as directed. Y ou can shower living water run over this starting tonight but do not soak it in water such as bathtub, hot tub until the stitches have been removed. All discharge instructions reviewed with patient and/or family. Voiced understanding. Scripts Cephalexin (Keflex) 500 Mg Capsule 500 MG PO TID, #15 CAP Prov: MADI ZAMBRANO APRN 06/07/19 MADI ZAMBRANO APRN Jun 07, 2019 16:23
--- OUTSIDE RECORDS SUMMARY | 2019-06-07 16:23 | XMS REPORT | CCD ---
Author Author Dalila Falk Organization Shannon Falk MD, [facility] Address [address] [place] [address] Phone Care Team Providers Care Software Quality Assurance Specialist Name Role Phone PP Unavailable CCM Unavailable Summary Purpose Interface Exchange Insurance Providers Payer name Policy type / Coverage type Covered libertarian ID Effective Begin Date Effective End Date WPS Medicare Part B Medicare Part B [id number] Unknown English [employer] Life Insurance M edicare Part B [id number] Unkn own Family history Brother Diagnosis Age [...] Unknown 2 07/10/[address]: 472306903 Has never smoked or chewed tobacco 07/10/2014 Alcohol history Unknown occasionally drinks alcohol 07/10/2014 Allergies, Adverse Reactions, Alerts Substance Reaction Codes Entered Date Inactivated Date Status Remicade hives RxNorm: 789219 03/24/2017 No Inactive Date Active * NO KNOWN FOOD LALA RGIES Unknown 07/10/2014 No Inactive Date Active SULFA(SULFONAMIDE AN TIBIOTICS) Unknown 07/10/2014 No Inactive Date Active Past Medical History Illness Codes Condition Status Onset Date Resolved Date Other abnormal and i nconclusive findings on diagnostic imaging of breast ICD-9: 793.89 ICD-10: R92.8 Active 02/01/2018 Unknown Atrophy of thyroid ( acquired) ICD-9: 244.8 [...] Condition Codes Effectiv e Dates Condition Status Other abnormal and i nconclusive findings on diagnostic imaging of breast ICD-9: 793.89 ICD-10: R92.8 02/01/2018 Active Atrophy of thyroid ( acquired) ICD-9: 244.8 [...] Date Stop Date Sta tus Fill Instructions Synthroid 75 mcg tablet RxNorm: 595093 TAKE 1 TABLET BY MOUTH EVERY DAY 07/27/2018 02/21/2019 Ac tive Generic For:*SYNTHROID 0.075MG TAB 08/2018 9:45:14 AM N O T I C E Last quantity doesn't match original quantity Lipitor 20 mg tablet RxNorm: 604145 1 Tablet(s) PO QPM 05/08/2018 05/02/2019 Active Benicar 40 mg tablet RxNorm: 778613 1 Tablet(s) PO daily 05/08/2018 05/02/2019 Active Celebrex 200 mg capsule RxNorm: 602849 1 Capsule(s) PO BID 05/03/2018 04/27/2019 Active citalopram 20 mg tablet RxNorm: 078517 Tablet(s) TAKE ONE (1) TABLET BY MOUTH D AILY 05/03/2018 04/27/2019 Ac tive hydrocodone 7.5 mg-a cetaminophen 325 mg tablet RxNorm: 110610 1-2 Tablet(s) PO Q4H as needed 05/01/2018 05/15/2018 Inactive cefdinir 300 mg capsule RxNorm: 984083 1 Capsule(s) PO BID 04/17/2018 04/23/2018 Inactive cefdinir 300 mg capsule RxNorm: 532002 1 Capsule(s) PO BID 04/17/2018 04/16/2018 Inactive clobetasol 0.05 % to pical cream RxNorm: 215146 1 dime size amount Ap plication TOP daily as needed vaginal irritation 03/27/2018 07/24/2018 Inactive metoprolol succinate ER 25 mg tablet,extended release 24 hr RxNorm: 379104 1 Tablet(s) PO daily 03/27/2018 10/22/2018 Active Synthroid 75 mcg tablet RxNorm: 612311 Tablet(s) TAKE 1 TABLET BY MOUTH DAILY 02/07/2018 07/26/2018 In active Generic For:*SYNTHROID 0.075MG TAB 11/14 9:16:33 AM N O T I C E Last quantity doesn't match original quantity hydrocodone 7.5 mg-a cetaminophen 325 mg tablet RxNorm: 383602 1-2 Tablet(s) PO Q4H as needed 10/12/2017 10/26/2017 Inactive Synthroid 75 mcg tablet RxNorm: 317414 Tablet(s) TAKE 1 TABLET BY MOUTH DAILY 08/09/2017 02/06/2018 In active Generic For:*SYNTHROID 0.075MG TAB 10/22 9:16:33 AM N O T I C E Last quantity doesn't match original quantity hydrocodone 7.5 mg-a cetaminophen 325 mg tablet RxNorm: 747490 1-2 Tablet(s) PO Q4H as needed 05/22/2017 06/20/2017 Inactive amlodipine 10 mg tablet RxNorm: 327812 1 Tablet(s) PO daily 1 Tablet(s) PO ashlie y 05/09/2017 09/26/2017 In active citalopram 20 mg tablet RxNorm: 170348 Tablet(s) TAKE ONE (1) TABLET BY MOUTH D AILY 05/09/2017 05/02/2018 Inactive losartan 100 mg tablet RxNorm: 972505 1 Tablet(s) PO daily TAKE 1 TABLET BY MO UTH DAILY 05/09/2017 01/01/2018 Inactive gabapentin 300 mg ca psule RxNorm: 142489 1 Capsule(s) PO daily 03/24/2017 No Stop Date Active Celebrex 200 mg capsule RxNorm: 667750 1 Capsule(s) PO BID 1 Capsule(s) PO ashlie y 03/24/2017 03/23/2017 In active Celebrex 200 mg capsule RxNorm: 381517 1 Capsule(s) PO BID 03/24/2017 03/18/2018 Inactive amlodipine 10 mg tablet RxNorm: 606974 1 Tablet(s) PO daily 1 Tablet(s) PO ashlie y 03/24/2017 05/08/2017 In active Lipitor 40 mg tablet RxNorm: 193504 Tablet(s) TAKE ONE TABLET BY MOUTH AT BE [facility] 02/14/2017 09/26/2017 Inactive hydrocodone 7.5 mg-a cetaminophen 325 mg tablet RxNorm: 526913 1-2 Tablet(s) PO Q4H as needed 01/16/2017 02/14/2017 Inactive scopolamine 1.5 mg t ransdermal patch (1 mg over 3 days) RxNorm: 561579 1 Patch TD Q72H 11/25/2016 12/04/2016 Inactive scopolamine 1.5 mg t ransdermal patch (1 mg over 3 days) RxNorm: 449379 1 Patch TD Q72H 11/25/2016 11/24/2016 Inactive losartan 100 mg tablet RxNorm: 821610 1 Tablet(s) PO daily TAKE 1 TABLET BY MO VTH DAILY 11/14/2016 05/08/2017 Inactive Generic For:COZAAR 100MG TA B 05/17/2016 8:31:51 AM Synthroid 75 mcg tablet RxNorm: 284647 TAKE 1 TABLET BY MOUTH DAILY 11/14/2016 06/11/2017 Inactive Generic For:*SYNTHROID 0.075MG TAB 10/22 9:16:33 AM N O T I C E Last quantity doesn't match original quantity citalopram 20 mg tablet RxNorm: 041930 TAKE ONE (1) TABLET BY MOUTH DAILY 11/14/2016 05/08/2017 In active Generic For:CELEXA 20MG TAB 11/14/2016 8:30:49 AM N O T I C E Last quantity doesn't match original quantity prednisone 10 mg tab lets in a dose pack RxNorm: 582760 1 Tablet(s) PO UD 09/30/2016 10/05/2016 In active 6-5-4-3-2-1 hydrocodone 7.5 mg-a cetaminophen 325 mg tablet RxNorm: 502413 1-2 Tablet(s) PO Q4H as needed 09/20/2016 01/15/2017 Inactive amlodipine 5 mg tablet RxNorm: 955912 TAKE ONE TABLET BY MOUTH EVERY DAY 08/15/2016 03/23/2017 In active Generic For:NORVASC 5 MG TABLET 017 3:56:26 PM N O T I C E Last quantity doesn't match original quantity Kenalog 40 mg/mL [facility] pension for injection RxNorm: 2318788 1 Milliliter(s) Inj 08/08/2016 08/08/2016 In active prednisone 10 mg tab lets in a dose pack RxNorm: 689455 1 Tablet(s) PO UD 08/08/2016 08/07/2016 In active prednisone 10 mg tab lets in a dose pack RxNorm: 733774 1 Tablet(s) PO UD 08/08/2016 08/13/2016 In active 6-5-4-3-2-1 Diflucan 150 mg tablet RxNorm: 429730 1 Tablet(s) PO daily 06/27/2016 07/10/2016 Inactive Synthroid 75 mcg tablet RxNorm: 574334 TAKE 1 TABLET BY MOUTH DAILY 06/16/2016 11/13/2016 Inactive Generic For:*SYNTHROID 0.075MG TAB pt wo uld like a 90 day supply N O T I C E Last quantity doesn't match original quantity hydrocodone 7.5 mg-a cetaminophen 325 mg tablet RxNorm: 718811 1-2 Tablet(s) PO Q4H as needed 06/06/2016 09/19/2016 Inactive citalopram 20 mg tablet RxNorm: 603407 TAKE ONE (1) TABLET BY MOUTH DAILY 05/18/2016 11/13/2016 In active Generic For:CELEXA 20MG TAB 05/17/2016 8:32:02 AM Celebrex 200 mg capsule RxNorm: 136390 1 Capsule(s) PO daily 05/17/2016 03/23/2017 Inactive losartan 100 mg tablet RxNorm: 882750 TAKE 1 TABLET BY MOUTH DAILY 05/17/2016 11/12/2016 Inactive Generic For:COZAAR 100MG TAB 05/17/2016 8:31:51 AM amlodipine 5 mg tablet RxNorm: 436214 1 Tablet(s) PO daily 05/10/2016 08/14/2016 Inactive Cipro 500 mg tablet RxNorm: 473513 1 Tablet(s) PO BID 05/04/2016 05/03/2016 Inactive Cipro 500 mg tablet RxNorm: 838386 1 Tablet(s) PO BID 05/04/2016 05/13/2016 Inactive Diflucan 150 mg tablet RxNorm: 278473 1 Tablet(s) PO daily 04/18/2016 05/01/2016 Inactive Monistat Soothing Ca re 1.2 % topical gel RxNorm: 6114497 1 Application TOP BI D 03/07/2016 01/01/2018 In active Diflucan 150 mg tablet RxNorm: 895085 1 Tablet(s) PO daily 03/07/2016 03/13/2016 Inactive Lipitor 40 mg tablet RxNorm: 750328 Tablet(s) TAKE ONE TABLET BY MOUTH AT BE DTIME 02/23/2016 02/13/2017 Inactive citalopram 20 mg tablet RxNorm: 603669 TAKE ONE (1) TABLET BY MOUTH DAILY 02/18/2016 05/17/2016 In active Generic For:CELEXA 20MG TAB refill reque st losartan 100 mg tablet RxNorm: 960257 Tablet(s) 1 Tablet, 1 time per Day 02/09/2016 05/16/2016 In active INSURANCE WILL NOT COVER ADELA ANDREWS IED UNTIL OTHER FORMULARIES HAVE BEEN TRIED AND FAILED hydrocodone 7.5 mg-a cetaminophen 325 mg tablet RxNorm: 084442 1-2 Tablet(s) PO Q4H as needed 02/03/2016 06/05/2016 Inactive Synthroid 75 mcg tablet RxNorm: 407587 Tablet(s) TAKE 1 TABLET BY MOUTH DAILY 01/19/2016 06/15/2016 In active Generic For:*SYNTHROID 0.075MG TAB 04/2014 10:00:02 AM N O T I C E PRESCRIPTION PREVIOUSLY AUTHORIZED BY DOCTOR:SWATI BEY prednisone 10 mg tab lets in a dose pack RxNorm: 109970 1 Tablet(s) PO UD 01/07/2016 02/22/2016 In active 6-5-4-3-2-1 amlodipine 10 mg tablet RxNorm: 541651 1 Tablet(s) PO daily 12/07/2015 11/30/2016 Inactive citalopram 20 mg tablet RxNorm: 862426 TAKE ONE (1) TABLET BY MOUTH DAILY 11/17/2015 02/14/2016 In active Generic For:CELEXA 20MG TAB refill reque st hydrocodone 7.5 mg-a cetaminophen 325 mg tablet RxNorm: 440814 1-2 Tablet(s) PO Q4H as needed 10/08/2015 02/02/2016 Inactive losartan 100 mg tablet RxNorm: 187723 Tablet(s) 1 Tablet, 1 time per Day 2015 02/07/2016 In active INSURANCE WILL NOT COVER A[place] ANDREWS IED UNTIL OTHER FORMULARIES HAVE BEEN TRIED AND FAILED citalopram 20 mg tablet RxNorm: 481259 TAKE ONE (1) TABLET BY MOUTH DAILY 08/10/2015 11/07/2015 In active Generic For:CELEXA 20MG TAB 08/10/2015 8:59:58 AM Synthroid 75 mcg tablet RxNorm: 900666 Tablet(s) TAKE 1 TABLET BY MOUTH DAILY 05/26/2015 12/21/2015 In active Generic For:*SYNTHROID 0.075MG TAB 0804/2014 10:00:02 AM N O T I C E PRESCRIPTION PREVIOUSLY AUTHORIZED BY DOCTOR:SWATI BEY prednisone 20 mg tablet RxNorm: 022770 2 Tablet(s) PO daily 05/26/2015 05/30/2015 Inactive Lipitor 40 mg tablet RxNorm: 712145 TAKE ONE TABLET BY MOUTH AT BEDTIME 05/14/2015 02/07/2016 In active Generic For:LIPITOR 40MG TAB 05/13/2015 8:26:33 AM N O T I C E PRESCRIPTION PREVIOUSLY AUTHORIZED BY DOCTOR:SWATI BEY hydrocodone 7.5 mg-a cetaminophen 325 mg tablet RxNorm: 955998 1-2 Tablet(s) PO Q4H as needed 05/11/2015 10/07/2015 Inactive Celebrex 200 mg capsule RxNorm: 692703 1 Capsule(s) PO daily 05/07/2015 04/30/2016 Inactive citalopram 20 mg tablet RxNorm: 693613 TAKE ONE (1) TABLET BY MOUTH DAILY 04/27/2015 07/25/2015 In active Generic For:CELEXA 20MG TAB 04/26/2015 7:30:08 PM gabapentin 300 mg ca psule RxNorm: 912770 1 Capsule(s) PO QID 04/09/2015 04/02/2016 Inactive citalopram 20 mg tablet RxNorm: 040681 TAKE ONE (1) TABLET BY MOUTH DAILY 01/26/2015 04/25/2015 In active Generic For:CELEXA 20MG TAB 01/26/2015 8:40:11 AM losartan 100 mg tablet RxNorm: 832039 1 Tablet, 1 time per Day 01/26/2015 03/29/2015 Inactive INSURANCE WILL NOT COVER ADELA ANDREWS UNTIL OTHER FORMULARIES HAVE BEEN TRIED AND FAILED hydrocodone 7.5 mg-a cetaminophen 325 mg tablet RxNorm: 358278 1-2 Tablet(s) PO Q4H as needed 01/23/2015 05/10/2015 Inactive Neurontin 100 mg cap almaz RxNorm: 242716 1 Capsule(s) PO TID 01/14/2015 03/09/2015 Inactive Neurontin 100 mg cap almaz RxNorm: 238599 1 Capsule(s) PO TID 01/14/2015 01/13/2015 Inactive Keflex 500 mg capsule RxNorm: 161971 1 Capsule(s) PO TID 01/06/2015 01/05/2015 Inactive Keflex 500 mg capsule RxNorm: 971590 1 Capsule(s) PO TID 01/06/2015 01/12/2015 Inactive hydrocodone 7.5 mg-a cetaminophen 325 mg tablet RxNorm: 215486 1-2 Tablet(s) PO Q4H as needed 12/29/2014 01/22/2015 Inactive Duexis 800 mg-26.6 m g tablet RxNorm: 0961921 1 Tablet(s) PO TID a s needed 12/19/2014 03/29/2015 In active Duexis 800 mg-26.6 m g tablet RxNorm: 9079062 1 Tablet(s) PO TID a s needed 12/19/2014 12/18/2014 In active Kenalog 40 mg/mL [place] pension for injection RxNorm: 6888978 1 Milliliter(s) Inj 12/09/2014 12/09/2014 In active prednisone 10 mg tab lets in a dose pack RxNorm: 785291 1 Tablet(s) PO UD 12/09/2014 12/14/2014 In active 6-5-4-3-2-1 amlodipine 10 mg tablet RxNorm: 834222 1 Tablet(s) PO daily 11/13/2014 11/07/2015 Inactive citalopram 20 mg tablet RxNorm: 493091 TAKE ONE (1) TABLET BY MOUTH DAILY 10/23/2014 01/20/2015 In active Generic For:CELEXA 20MG TAB 10/23/2014 4:32:02 PM N O T I C E PRESCRIPTION PREVIOUSLY AUTHORIZED BY DOCTOR:SWATI BEY hydrocodone 7.5 mg-a cetaminophen 325 mg tablet RxNorm: 971459 1-2 Tablet(s) PO Q4H as needed 10/22/2014 12/28/2014 Inactive Synthroid 75 mcg tablet RxNorm: 903215 TAKE 1 TABLET BY MOUTH DAILY 09/22/2014 04/19/2015 Inactive Generic For:*SYNTHROID 0.075MG TAB 04/2014 10:00:02 AM N O T I C E PRESCRIPTION PREVIOUSLY AUTHORIZED BY DOCTOR:SWATI BEY amlodipine 5 mg tablet RxNorm: 350740 1 Tablet(s) PO daily 08/25/2014 11/12/2014 Inactive Synthroid 75 mcg tablet RxNorm: 950391 1 Tablet(s) PO daily ecept a 1/2 tab on Monday07/11/2014 09/21/2014 Inactive Flonase Allergy Reli ef 50 mcg/actuation nasal spray,suspension RxNorm: 1 [place] NASAL BID 07/10/2014 12/06/2014 Inactive methotrexate sodium 2.5 mg tablet RxNorm: 062054 3 Tablet(s) PO weekly No Start Date 04/08/2015 Inactive Aldactone 25 mg tablet RxNorm: 391042 1 Tablet(s) PO daily No Start Date 03/26/2018 Inactive gabapentin 300 mg ca psule RxNorm: 806113 1 Capsule(s) PO TID No Start Date 04/08/2015 Inactive Plaquenil 200 mg tablet RxNorm: 005473 1 Tablet(s) PO BID No Start Date 05/22/2016 Inactive losartan 100 mg tablet RxNorm: 630540 1 Tablet(s) PO daily No Start Date 01/25/2015 Inactive Benicar 20 mg tablet RxNorm: 693808 1 Tablet(s) PO daily No Start Date 05/07/2018 Inactive Remicade intravenous RxNorm: 855051 intravenous No Start Date 03/23/2017 Inactive amlodipine 5 mg tablet RxNorm: 566093 1 Tablet(s) PO daily No Start Date 08/24/2014 Inactive Celebrex 200 mg capsule RxNorm: 255159 1 Capsule(s) PO daily No Start Date 10/16/2017 Inactive citalopram 20 mg tablet RxNorm: 937025 1 Tablet(s) PO daily No Start Date 10/22/2014 Inactive Synthroid 88 mcg tablet RxNorm: 551087 1 Tablet(s) PO daily No Start Date 07/09/2014 Inactive Arava 20 mg tablet RxNorm: 005921 1 Tablet(s) PO daily No Start Date 01/01/2018 Inactive Lipitor 40 mg tablet RxNorm: 694876 1 Tablet(s) PO daily No Start Date 05/13/2015 Inactive chlorthalidone 25 mg tablet RxNorm: 247012 1 Tablet(s) PO daily No Start Date 03/26/2018 Inactive Synthroid 75 mcg tablet RxNorm: 182604 1 Tablet(s) PO daily No Start Date 07/10/2014 Inactive hydrocodone 7.5 mg-a cetaminophen 325 mg tablet RxNorm: 282529 Tablet(s) PO as neede d No Start Date 10/21/2014 Inactive Medication Administered Medication Codes Instruc tions Start Date Status Kenalog 40 mg/mL suspension for injection RxNorm: 2532279 1Milliliter 08/08/2016 N o longer Active Kenalog 40 mg/mL suspension for injection RxNorm: 9895658 1Milliliter 12/09/2014 N o longer Active Immunizations Vaccine Codes Date Status SHINGARIX CVX: 121 08/02 completed SHINGARIX CVX: 121 04/05 completed Assessments Condition Codes Effectiv e Dates Other abnormal and inconclusive findings on diagnostic imaging of breast ICD-10: R92.8 ICD-9: 793.89 08/03/2018 Essential (primary) hypertension ICD -10: I10 ICD-9: 401.9 06/12/2018 Atrophy of thyroid (acquired) ICD-10 : E03.4 ICD-9: 244.8 06/12/2018 Mixed hyperlipidemia ICD-10: E78.2 ICD-9: 272.4 [...] Visit Effective Dates Notes medication follow up 06/12/2018 medication follow up [...] Item Item Code Result Date Free T4 Yit142 FREE T4 0.86 ng/dL 05/07/2018 Comp Metabolic Kdw195 NA 138 mEq/L 05/07/2018 Comp Metabolic Wqi009 K 4.2 mEq/L 05/07/2018 Comp Metabolic Gdd524 CL 104 mEq/L 05/07/2018 Comp Metabolic Hjq818 CO2 28.0 mEq/L 05/07/2018 Comp Metabolic Wsf487 AN ION GAP 10 05/07/2018 Comp Metabolic Lhi338 GL UCOSE 108 mg/dL 05/07/2018 Comp Metabolic Ccf639 Cr eat 0.9 mg/dL 05/07/2018 Comp Metabolic Asc976 eG FR 71 ml/min/1.73m2 05/07 Comp Metabolic Kua860 BUN 15 mg/dL 05/07/2018 Comp Metabolic Rol301 B/ C Ratio 17.6 Ratio 05/07/2018 Comp Metabolic Yby209 CA LCIUM 9.5 mg/dL 05/07/2018 Comp Metabolic Hew050 AL K PHOS 100 U/L 05/07/2018 Comp Metabolic Pps440 T(SGOT) 17 U/L 05/07/2018 Comp Metabolic Xtf075 AL T(SGPT) 11 U/L 05/07/2018 Comp Metabolic Csp589 BI LI T 0.4 mg/dL 05/07/2018 Comp Metabolic Pen630 AL BUMIN 3.9 g/dL 05/07/2018 Comp Metabolic Ret775 TP RO 6.3 g/dL 05/07/2018 Comp Metabolic Vrw107 GL OB 2.4 g/dL 05/07/2018 Comp Metabolic Paa226 A/ G Ratio 1.6 Ratio 05/07/2018 Comp Metabolic Jpg990 Os mo 277 mOsmo 05/07/2018 Cbc With [...] 31.6 % 05/07/2018 Cbc With Differential Ord2 Martin% 9.7 % 05/07/2018 Cbc With Differential Ord2 MCH 28.9 pg 05/07/2018 Cbc With Differential Ord2 MCHC 32.2 pg 05/07/2018 Cbc With Differential Ord2 Eos% 2.3 % 05/07/2018 Cbc With Differential Ord2 Baso% 0.6 % 05/07/2018 Cbc With Differential Ord2 PLT 253 K/ul 05/07/2018 Cbc With Differential Ord2 RDW 13.6 % 05/07/2018 Cbc With Differential Ord2 Neut ABS# 3.57 K/ul 05/07/2018 Cbc With Differential Ord2 Lymph ABS# 2.02 K/ul 05/07/2018 Cbc With Differential Ord2 Martin ABS# 0.6 K/ul 05/07/2018 Cbc With Differential [...] 31.1 pg 12/26/2017 Cbc With Differential Ord2 Martin% 9.2 % 12/26/2017 Cbc With Differential Ord2 MCHC 34.0 pg 12/26/2017 Cbc With Differential Ord2 Eos% 1.7 % 12/26/2017 Cbc With Differential Ord2 Baso% 0.5 % 12/26/2017 Cbc With Differential Ord2 PLT 302 K/ul 12/26/2017 Cbc With Differential Ord2 RDW 13.7 % 12/26/2017 Cbc With Differential Ord2 Neut ABS# 5.38 K/ul 12/26/2017 Cbc With Differential Ord2 Lymph ABS# 1.53 K/ul 12/26/2017 Cbc With Differential Ord2 Martin ABS# 0.7 K/ul 12/26/2017 Cbc With Differential Ord2 Eos ABS# 0.1 K/ul 12/26/2017 Cbc With Differential Ord2 Baso ABS# 0.0 K/ul 12/26/2017 Free T4 Aot825 FREE T4 0.93 ng/dL 12/26/2017 Comp Metabolic Zvu587 NA 135 mEq/L 12/26/2017 Comp Metabolic Ckv035 K 4.4 mEq/L 12/26/2017 Comp Metabolic Wno425 CL 98 mEq/L 12/26/2017 Comp Metabolic Bfq957 CO2 28.0 mEq/L 12/26/2017 Comp Metabolic Rsg714 AN ION GAP 13 12/26/2017 Comp Metabolic Zie165 GL UCOSE 92 mg/dL 12/26/2017 Comp Metabolic Mvy383 Cr eat 1.1 mg/dL 12/26/2017 Comp Metabolic Fvz692 eG FR 52 ml/min/1.73m2 12/26 Comp Metabolic Wkq580 BUN 25 mg/dL 12/26/2017 Comp Metabolic Obr741 B/ C Ratio 22.7 Ratio 12/26/2017 Comp Metabolic Djf101 CA LCIUM 9.8 mg/dL 12/26/2017 Comp Metabolic Ylv277 AL K PHOS 91 U/L 12/26/2017 Comp Metabolic Lin476 T(SGOT) 16 U/L 12/26/2017 Comp Metabolic Pxs334 AL T(SGPT) 12 U/L 12/26/2017 Comp Metabolic Onb569 BI LI T 0.5 mg/dL 12/26/2017 Comp Metabolic Obi646 AL BUMIN 4.3 g/dL 12/26/2017 Comp Metabolic Cmg436 TP RO 6.8 g/dL 12/26/2017 Comp Metabolic Pqu484 GL OB 2.5 g/dL 12/26/2017 Comp Metabolic Svi863 A/ G Ratio 1.7 Ratio 12/26/2017 Comp Metabolic Iof097 Os mo 274 mOsmo 12/26/2017 Urine Culture Ucult Comp lete NO Growth Day 2 06/29 Urine Culture Ucult Prel iminary NO Growth Day 1 06/29 Culture Urine [id number] URI NE CULTURE SEE NOTES 04/22/2016 Culture Urine [id number] Con tinued Results 04/22/2016 Urine Culture Ucult Comp lete >100,000 col/ml aerobic grow th sent to ref lab 04/20/2016 Comp Metabolic Dey189 NA 137 mEq/L 02/10/2016 Comp Metabolic Rvl948 K 4.1 mEq/L 02/10/2016 Comp Metabolic Jkz267 CL 102 mEq/L 02/10/2016 Comp Metabolic Jie898 CO2 28.0 mEq/L 02/10/2016 Comp Metabolic Rzg039 AN ION GAP 11 02/10/2016 Comp Metabolic Zef654 GL UCOSE 104 mg/dL 02/10/2016 Comp Metabolic Zqc730 Cr eat 0.7 mg/dL 02/10/2016 Comp Metabolic Mmc648 eG FR 83 ml/min/1.73m2 02/09 Comp Metabolic Gpr765 BUN 14 mg/dL 02/10/2016 Comp Metabolic Sry874 B/ C Ratio 18.9 Ratio 02/10/2016 Comp Metabolic Swc382 CA LCIUM 9.7 mg/dL 02/10/2016 Comp Metabolic Ppv378 AL K PHOS 121 U/L 02/10/2016 Comp Metabolic Imr055 T(SGOT) 19 U/L 02/10/2016 Comp Metabolic Iyz987 AL T(SGPT) 13 U/L 02/10/2016 Comp Metabolic Isb599 BI LI T 0.5 mg/dL 02/10/2016 Comp Metabolic Mhm866 AL BUMIN 4.3 g/dL 02/10/2016 Comp Metabolic Ddm196 TP RO 6.8 g/dL 02/10/2016 Comp Metabolic Lvy082 GL OB 2.5 g/dL 02/10/2016 Comp Metabolic Vls877 A/ G Ratio 1.7 Ratio 02/10/2016 Comp Metabolic Jcu950 Os mo 275 mOsmo 02/10/2016 Lipid Ord30 CHOL 229 mg/dL 02/10/2016 Lipid Ord30 HDL 59.0 mg/dl 02/10/2016 Lipid Ord30 TRIG 252 mg/dL 02/10/2016 Lipid Ord30 LDL 120 mg/dL 02/10/2016 Lipid Ord30 C/HDL 3.9 Ratio 02/10/2016 Free T4 Ojh726 FREE T4 0.87 ng/dL 02/10/2016 Tsh Ord6 [...] 29.2 pg 02/10/2016 Cbc With Differential Ord2 Martin% 18.6 % 02/10/2016 Cbc With Differential Ord2 [...] 1.81 K/ul 02/10/2016 Cbc With Differential Ord2 Martin ABS# 1.1 K/ul 02/10/2016 Cbc With Differential Ord2 Eos ABS# 0.1 K/ul 02/10/2016 Cbc With Differential Ord2 Baso ABS# 0.1 K/ul 02/10/2016 Tsh Ord6 hTSH II 0.85 uIU/mL 04/02/2015 Lipid Ord30 CHOL 207 mg/dL 04/02/2015 Lipid Ord30 HDL 68.0 mg/dl 04/02/2015 Lipid Ord30 TRIG 193 mg/dL 04/02/2015 Lipid Ord30 LDL 100 mg/dL 04/02/2015 Lipid Ord30 C/HDL 3.0 Ratio 04/02/2015 Free T4 Vwk170 FREE T4 1.09 ng/dL 04/02/2015 Free T4 Lym470 FREE T4 0.82 ng/dL 10/15/2014 Tsh Ord6 hTSH II 0.80 uIU/mL 10/15/2014 Review of Systems System Result Effective Dates Constitutional No recent illness 06/12/2018 Constitutional No [...] CPT-4: G8553 11/13/2014 Vital Signs Date Vital 06/12/2018 Blood Pressure 1: 124/74 Code: 8480-6 BMI: 31.6 Code: 90724-2 Heart Rate 1: 55 bpm Height: 5'4" SpO2: 99% Weight: 184 lbs 05/08/2018 Blood Pressure 1: 148/84 Code: 8480-6 BMI: 31.8 Code: 66239-5 Heart Rate 1: 60 bpm Height: 5'4" SpO2: 96% Weight: 185 lbs 03/27/2018 Blood Pressure 1: 142/84 Code: 8480-6 BMI: 31.2 Code: 77122-2 Heart Rate 1: 75 bpm Height: 5'4" SpO2: 97% Weight: 182 lbs 01/02/2018 Blood Pressure 1: 136/68 Code: 8480-6 BMI: 32.4 Code: 94160-4 Heart Rate 1: 80 bpm Height: 5'4" SpO2: 99% Waist Measure (cm): 104 cm Weight: 189 lbs 12/26/2017 Blood Pressure 1: 138/72 Code: 8480-6 BMI: 31.4 Code: 65408-1 Heart Rate 1: 72 bpm Height: 5'4" SpO2: 96% Weight: 183 lbs 10/17/2017 Blood Pressure 1: 15672 Code: 8480-6 BMI: 31.4 Code: 96233-1 Heart Rate 1: 81 bpm Height: 5'4" SpO2: 98% Temperature: 36.5 (C ) / 97.7 (F) Weight: 183 lbs 09/27/2017 Blood Pressure 1: 140/82 Code: 8480-6 BMI: 32.1 Code: 05959-3 Heart Rate 1: 82 bpm Height: 5'4" SpO2: 98% Weight: 187 lbs 07/31/2017 Blood Pressure 1: 138/82 Code: 8480-6 Heart Rate 1: 87 bpm SpO2: 99% 03/24/2017 Blood Pressure 1: 146/86 Code: 8480-6 BMI: 31.8 Code: 22629-0 Heart Rate 1: 79 bpm Height: 5'4" SpO2: 96% Temperature: 36.4 (C ) / 97.5 (F) Weight: 185 lbs 08/30/2016 Blood Pressure 1: 142/88 Code: 8480-6 BMI: 31.6 Code: 19919-3 Heart Rate 1: 80 bpm Height: 5'4" SpO2: 93% Weight: 184 lbs 08/08/2016 Blood Pressure 1: 142/76 Code: 8480-6 BMI: 29.9 Code: 05238-4 Heart Rate 1: 80 bpm Height: 5'4" SpO2: 94% Weight: 174 lbs 06/27/2016 Blood Pressure 1: 156/72 Code: 8480-6 BMI: 30.6 Code: 71665-2 Heart Rate 1: 78 bpm Height: 5'4" SpO2: 95% Weight: 178 lbs 05/23/2016 Blood Pressure 1: 146/84 Code: 8480-6 Heart Rate 1: 66 bpm Height: 5'4" SpO2: 94% 04/18/2016 Blood Pressure 1: 148/84 Code: 8480-6 BMI: 30.2 Code: 04606-8 Heart Rate 1: 81 bpm Height: 5'4" SpO2: 97% Weight: 176 lbs 03/07/2016 Blood Pressure 1: 130/78 Code: 8480-6 BMI: 30.0 Code: 96403-7 Heart Rate 1: 85 bpm Height: 5'4" SpO2: 96% Weight: 175 lbs 02/23/2016 Blood Pressure 1: 140/78 Code: 8480-6 BMI: 29.7 Code: 26341-1 Heart Rate 1: 74 bpm Height: 5'4" SpO2: 95% Weight: 173 lbs 09/15/2015 Blood Pressure 1: 140/88 Code: 8480-6 BMI: 29.4 Code: 04305-8 Heart Rate 1: 81 bpm Height: 5'4" SpO2: 97% Weight: 171 lbs 8 oz 05/26/2015 Blood Pressure 1: 150/80 Code: 8480-6 BMI: 31.6 Code: 87653-3 Heart Rate 1: 70 bpm Height: 5'4" SpO2: 96% Weight: 184 lbs 04/09/2015 Blood Pressure 1: 136/74 Code: 8480-6 BMI: 31.4 Code: 64264-2 Heart Rate 1: 91 bpm Height: 5'4" SpO2: 94% Weight: 183 lbs 03/30/2015 Blood Pressure 1: 130/72 Code: 8480-6 BMI: 30.9 Code: 03364-4 Heart Rate 1: 80 bpm Height: 5'4" SpO2: 97% Waist Measure (cm): 102 cm Weight: 180 lbs 03/10/2015 Blood Pressure 1: 152/80 Code: 8480-6 BMI: 31.1 Code: 24240-1 Heart Rate 1: 66 bpm Height: 5'4" SpO2: 98% Weight: 181 lbs 12/16/2014 Blood Pressure 1: 132/88 Code: 8480-6 Blood Pressure 1: 132/88 Code: 8480-6 Heart Rate 1: 88 bpm SpO2: 98% Weight: 183 lbs 12/09/2014 Blood Pressure 1: 140/82 Code: 8480-6 BMI: 31.2 Code: 01915-9 Heart Rate 1: 105 bpm Height: 5'4" SpO2: 93% Weight: 182 lbs 11/13/2014 Blood Pressure 1: 148/88 Code: 8480-6 BMI: 31.8 Code: 79058-4 Heart Rate 1: 54 bpm Height: 5'4" SpO2: 98% Weight: 185 lbs 07/10/2014 Blood Pressure 1: 144/96 Code: 8480-6 BMI: 31.4 Code: 30875-7 Heart Rate 1: 99 bpm Height: 5'4" SpO2: 98% Temperature: 36.8 (C ) / 98.2 (F) Weight: 183 lbs Functional Status No Functional Status data History of Present Illness Symptom Name Status Resu lt Effective Date Notes Location oral intake 06/12/2018 None Onset and [...] frantz sary hypertension 09/27/2017 None 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 sciatica Pertinent Findings Denies fever 04/09/2015 None [...] Encounters Encounter Performer Loca tion Codes Date ([id number]) 45366 EST. P ATIENT, LEVEL III Diagnosis: Essential (primary) hypertension[ICD10: I10] Diagnosis: Atrophy of thyroid (acquired)[ICD10: E03.4] Shannon Falk MD, C CPT-4: 97533 06/12/2018 ([id number]) 50747 EST. P ATIENT, LEVEL IV Diagnosis: Essential (primary) hypertension[ICD10: I10] Diagnosis: Atrophy of thyroid (acquired)[ICD10: E03.4] Diagnosis: Mixed hyperlipidemia[ICD10: E78.2] Shannon Falk MD, [facility] CPT- 4: 48795 05/08/2018 ([id number]) 43915 EST. P ATIENT, LEVEL III Diagnosis: Hypo-osmolality and hyponatremia[ICD10: E87.1] Shannon Falk MD, C CPT-4: 56396 03/27/2018 ([id number]) 09352 EST. P ATIENT, LEVEL IV Diagnosis: Atrophy of thyroid (acquired)[ICD10: E03.4] Diagnosis: Essential (primary) hypertension[ICD10: I10] Diagnosis: 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[ICD10: M05.741] Diagnosis: 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[ICD10: M05.742] Diagnosis: Pain in thoracic spine[ICD10: M54.6] Shannon Falk MD, [facility] CPT-4: 12473 12/26/2017 ([id number]) 82249 EST. P ATIENT, LEVEL III Diagnosis: Otalgia, left ear[ICD10: H92.02] Diagnosis: Essential (primary) hypertension[ICD10: I10] Elizabet Falk MD, [facility] CPT-4: 07138 10/17/2017 ([id number]) 09797 EST. P ATIENT, LEVEL IV Diagnosis: 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[ICD10: M05.741] Diagnosis: 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[ICD10: M05.742] Diagnosis: Atrophy of thyroid (acquired)[ICD10: E03.4] Diagnosis: Essential (primary) hypertension[ICD10: I10] Shannon Falk MD, C CPT-4: 39562 09/27/2017 ([id number]) Miscellaneou s no charge Diagnosis: Essential (primary) hypertension[ICD10: I10] Elizabet Falk MD, [facility] CPT-4: 44182 07/31/2017 ([id number]) 10867 EST. P ATIENT, LEVEL IV Diagnosis: Essential (primary) hypertension[ICD10: I10] Diagnosis: Atrophy of thyroid (acquired)[ICD10: E03.4] Diagnosis: 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[ICD10: M05.741] Diagnosis: 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[ICD10: M05.742] Shannon Falk MD, [facility] CPT-4: 07647 03/24/2017 ([id number]) 08380 EST. P ATIENT, LEVEL IV Diagnosis: Atrophy of thyroid (acquired)[ICD10: E03.4] Diagnosis: Pleurisy[ICD10: R09.1] Diagnosis: Essential (primary) hypertension[ICD10: I10] Shannon Falk MD, [facility] CPT-4: 55862 08/30/2016 ([id number]) 81142 EST. P ATIENT, LEVEL III Diagnosis: Pleurisy[ICD10: R09.1] Elizabet Falk MD, [facility] CPT-4: 86711 08/08/2016 53837 EST. PATIENT, LEVEL III Diagnosis: Dysuria[ICD10: R30.0] Diagnosis: Other pruritus[ICD10: L29.8] Shila Falk MD, [facility] CPT-4: 48908 06/27/2016 ([id number]) 62604 EST. P ATIENT, LEVEL III Diagnosis: Pain in left foot[ICD10: M79.672] Diagnosis: Pain in left toe(s)[ICD10: M79.675] Elizabet Falk MD, [facility] CPT-4: 66915 05/23/2016 13246 EST. PATIENT, LEVEL III Diagnosis: Candidiasis of vulva and vagina[ICD10: B37.3] Diagnosis: Dysuria[ICD10: R30.0] Shila Falk MD, [facility] CPT-4: 02730 04/18/2016 05278 EST. PATIENT, LEVEL III Diagnosis: Other pruritus[ICD10: L29.8] Diagnosis: Candidiasis of vulva and vagina[ICD10: B37.3] Shila Falk MD, [facility] CPT-4: 98764 03/07/2016 ([id number]) 07832 EST. P ATIENT, LEVEL IV Diagnosis: Essential (primary) hypertension[ICD10: I10] Diagnosis: Pain in left hip[ICD10: M25.552] Diagnosis: Pain in right hip[ICD10: M25.551] Diagnosis: Functional diarrhea[ICD10: K59.1] Diagnosis: Atrophy of thyroid (acquired)[ICD10: E03.4] Shannon Falk MD, C CPT-4: 92175 02/23/2016 ([id number]) 66330 EST. P ATIENT, LEVEL IV Diagnosis: Essential (primary) hypertension[ICD10: I10] Diagnosis: Mixed hyperlipidemia[ICD10: E78.2] Diagnosis: Major depressive disorder, single episode, unspecified[ICD10: F32.9] Shannon Falk MD, [facility] CPT-4: 15312 09/15/2015 99456 EST. PATIENT, LEVEL III Diagnosis: Rash and other nonspecific skin eruption[ICD10: R21] Shila Falk MD, [facility] CPT-4: 93826 05/26/2015 ([id number]) 76886 EST. P ATIENT, LEVEL IV Diagnosis: Essential (primary) hypertension[ICD10: I10] Diagnosis: Foot drop, left foot[ICD10: M21.372] Diagnosis: Sacroiliitis, not elsewhere classified[ICD10: M46.1] Shannon Falk MD, C CPT-4: 99446 04/09/2015 ([id number]) 57304 EST. 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 P ATIENT, LEVEL III Diagnosis: Trochanteric bursitis, left hip[ICD10: M70.62] Diagnosis: Iliotibial band syndrome, left leg[ICD10: M76.32] Diagnosis: Sciatica, left side[ICD10: M54.32] Elizabet Falk MD, [facility] CPT-4: 26194 12/16/2014 ([id number]) 24307 EST. P ATIENT, LEVEL III Diagnosis: Sciatica, left side[ICD10: M54.32] Diagnosis: Sacroiliitis, not elsewhere classified[ICD10: M46.1] Elizabet Falk MD, [facility] CPT-4: 13834 12/09/2014 ([id number]) 24441 EST. 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] Diagnosis: Carpal tunnel syndrome, unspecified upper limb[ICD10: G56.00] Shannon Falk MD, [facility] CPT-4: 17735 11/13/2014 ([id number]) OFFICE [facility], [facility] - LEVEL 4 Diagnosis: ESSENTIAL HYPERTENSION[ICD9: 401.9] Diagnosis: HYPERLIPIDEMIA[ICD9: 272.4] Diagnosis: DEPRESSIVE DISORDER NEC[ICD9: 311] Diagnosis: Diarrhea[ICD9: 787.91] Shannon Falk MD, [facility] CPT-4: 72593 07/10/2014 Plan of Care Planned Activity Notes C odes Status Date Patient Education: Patient Medication Summary Completed 08/03/2018 Care Plan: Bilateral DIAGNO[employer]MAMMOGRAPHYDIGITAL INC : 39752-8 Pending 08/03/2018 Visit Plan: Hypertension - well ludwin laura - continue with current medications, continue [...] control. 06/12/2018 Appointment: [facility] [phone] [facility] (15 min) Moderate 06/12/2018 Patient Education: Patient Medication Summary Completed 06/12/2018 Patient Education: Hypertension Completed 06/12/2018 Visit Plan: Hypertension - well con trolled [...] control. 05/08/2018 Appointment: [facility] [phone] [facility] (15 min) Moderate 05/08/2018 Patient Education: Patient Medication Summary Completed 05/08/2018 Patient Education: Hypertension Completed 05/08/2018 Appointment: [facility] [phone] [facility] [place] (15 min) Moderate 03/28/2018 Visit Plan: Hyponatremia - continue with current treatment - gatorade/powerade, monitor electrolytes. 03/27/2018 Appointment: Shannon Falk WPtel[facility] [place] (15 min) Moderate 03/27/2018 Patient Education: Patient Medication Summary Completed 03/27/2018 Patient Education: Patient Medication Summary Completed 02/01/2018 Appointment: [facility] [phone] [facility] (15 min) Moderate 01/22/2018 Patient Education: [...] surrogate. 01/02/2018 Appointment: [phone] [phone] [facility] - Annual Wellness Visit 01/02/2018 [...] control. 12/26/2017 Appointment: [facility] [phone] [facility] (15 min) Moderate 12/26/2017 Patient Education: [...] of plan. 10/17/2017 Appointment: Elizabet Donaldson WPtel: [phone] [place] (15 min) Moderate 10/17/2017 Patient Education: [...] at home. 09/27/2017 Appointment: Shannon Falk WPtel[facility] [place] (15 min) Moderate 09/27/2017 Patient Education: Patient Medication Summary Completed 09/27/2017 Care Plan: Referral Order SNOMED-CT : [id number] Pending 09/27/2017 Appointment: Shannon Falk WPtel[facility] [place] (15 min) Moderate 09/21/2017 Appointment: [...] twice daily. 03/24/2017 Appointment: [facility] [phone] [facility] [place] (15 min) Moderate 03/24/2017 Patient Education: Patient Medication Summary Completed 03/24/2017 Appointment: [facility] [phone] [facility] [place] (15 min) Moderate 03/16/2017 Appointment: Shannon Falk WPtel: [phone] [facility] (15 min) Moderate 03/01/2017 Visit Plan: Hypertension - well ludwin sanchez [...] based on previous levels of control. P fei - continue with supportive care. 08/30/2016 Appointment: Shannon Falk WPtel: [phone] [facility] (15 min) Moderate 08/30/2016 Patient Education: [...] of plan. 08/08/2016 Appointment: Elizabet Donaldson WPtel: [phone] [phone] [place] (30 min) Complex 08/08/2016 Patient Education: Patient Medication Summary Completed 08/08/2016 Referral: Delia Bernstein WPtel: [phone] [place] [address] Referral Initiated 08/01/2016 Visit Plan: Vaginal yeast [...] will refer. 06/27/2016 Appointment: [phone] [facility] [place] (30 min) Complex 06/27/2016 Patient Education: Patient Medication Summary Completed 06/27/2016 Care Plan: Referral Order SNOMED-CT : [id number] Pending 06/27/2016 Visit Plan: Left foot, 1st and 2nd toe pain-suspect fracture of left great toe-will obtain xrays and proceed as indicated. Patient verbalized understanding of plan. 05/23/2016 Appointment: El[facility]ab[facility] Donaldson [facility]Ptel[facility] [phone] [phone] [place] (15 min) Moderate 05/23/2016 Patient Education: [...] start probiotics 02/23/2016 Appointment: [facility] [phone] [facility] [place] (15 min) Moderate 02/23/2016 Patient [...] Summary Completed 09/15/2015 Appointment: Shannon Falk WPtel: [address] [place] [address] (15 min) Moderate 07/29/2015 Visit Plan: Rash [...] - vitamin B12 liquid 2000mcg daily - [facility] sells the liquid b12, folic acid - take daily. metanex 1 capsule twice daily - call office if this seems to help decrease nerve pain increase the night-time dosing of gabapentin to 300mg in AM, Noon, 6pm and 10pm 04/09/2015 Appointment: Shannon Falk WPtel: [facility] (15 min) Moderate 04/09/2015 Patient Education: [...] in 2012. 03/10/2015 Appointment: Shannon Falk WPtel[facility] (15 min) Moderate 03/10/2015 Patient Education: Patient Medication Summary Completed 03/10/2015 Care Plan: SCREENINGMAMMOGRAPHYDIGITAL LOINC : 64154-4 Ordered 03/10/2015 Care Plan: Referral Order SNOMED-CT : [id number] Ordered 03/10/2015 Care Plan: Referral Order SNOMED-CT : [id number] Ordered 03/10/2015 Visit Plan: Left hip bursitis/Iliot [...] Rehabilitation exercises Completed 12/16/2014 Patient Education: .Pippa Sekal AS Exercise for Juan ca Completed 12/16/2014 Care Plan: Referral Order SNOMED-CT : [id number] Ordered 12/16/2014 Visit Plan: Sacroiliitis - back [...] Patient Medication Summary Completed 12/09/2014 [facility] Education: .[facility] for Sciati ca Completed 12/09/2014 Visit [...] tunnel brace. 11/13/2014 Appointment: Shannon Falk WPtel: [facility] Follow up 11/13/2014 Patient Education: Patient Medication [...] stomach pain. ALIGN PROBIOTIC - TAKE DAILY ([employer] OR [facility] -TWO OTHER PROBIOTICS THAT ARE HIGH QUALITY) CIPROFLOXACIN TO BE TAKEN IF NEEDED IF THE DIARRHEA DOES NOT IMPROVE OR IF IT WORSENS. 07/10/2014 Appointment: Shannon Falk WPtel: [phone] [facility] [place] (S) New Patient 07/10/2014 Patient Education: Patient Medication Summary Completed 07/10/2014 Patient Education: Hypertension Completed 07/10/2014 Referral: Darci Spann Referral Relationship Referral: External, Ordering Provider Referral Appointment Requested Referral: External, Ordering Provider 09/28 Referral info faxed to [facility] 10/03 They tried calling her with an appt and she did not answer. Called patient and she will call them back. Appoint ment Requested Referral: External, Ordering Provider Referral Appointment Requested Referral: Delia Bernstein WPtel: [address] [place], [place] [address] [place] Referral Initiated Referral: External, Ordering Provider [...] herself. Increase the celebrex to twice daily. you currently have a mlodipine 5mg, increase [...] - pt to use carpal tunnel brace. XRAY LUMBAR SPINE AN D SI JOINT [...] not resolve or if any worse. . Hypertension - wel l controlled - [...] Pleurisy - continue with supportive care. . Hypertension - wel l controlled - [...] vitamin B12 liquid 2 000mcg daily - [facility] sells the liquid b12 folic acid - [...] - vitamin B12 liquid 2000mcg daily - [facility] sells the liquid b12, folic acid - take daily. metanex 1 capsule twice daily - call office if this seems to help decrease nerve pain increase the night-time dosing of gabapentin to 300mg in AM, Noon, 6pm and 10pm . Pleurisy-discussed natural and expected course of [...] maintain independece in the home. MONITOR BLOOD PRESSU RE AND PULSE -BRING [...] to patient's pharmacy. dr. gely duncan - [facility] [...] or with any concerns. Nasal spray- use twi ce daily, one spray per nostril twice daily, after 30 minutes, rinse out nose with saline spray.. Use opposite hand per nostril to spray in the nasal steroid allergy spray. ALIGN PROBIOTIC - TAKE DAILY ([employer] OR [employer] -TWO OTHER PROBIOTICS THAT ARE HIGH QUALITY) [...] IMPROVE OR IF IT WORSENS. . Lumbar degenerativ e arthritis - RX [...] Ines recommended repeat scope in 2012. . Vaginal yeast infe ction - Discussed [...] will come in for a pelvic exam. . Vaginal yeast infe ction - Discussed [...] daily . Hypertension - well controlled - legin nue with current medications, continue with no [...] the celebrex to twice daily. [facility] [place] [facility] - look up on [employer] . Hypertension - well controlled - elgin [...] based on previous levels of control. . Hyponatremia - con tinue with current [...] in dose of citalopram at this time. qunol - co-enzyme q1 0 supplementation to [...] months based on previous levels of control. recommend Shingles v accine . Medicare Exam [...]
--- OUTSIDE RECORDS SUMMARY | 2019-06-07 16:25 | XMS REPORT | CCD ---
Author Author Dalila Falk Organization Shannon Falk MD, [facility] Address [address] [place] [address] Phone Care Team Providers Care Chief Airport Guide Name Role Phone PP Unavailable CCM Unavailable Summary Purpose Interface Exchange Insurance Providers Payer name Policy type / Coverage type Covered constitution party ID Effective Begin Date Effective End Date WPS Medicare Part B Medicare Part B [id number] Unknown [facility] Insurance M edicare Part B [id number] Unkn own Family history Brother Diagnosis Age [...] Unknown 2 07/10/[address]: 630965524 Has never smoked or chewed tobacco 07/10/2014 Alcohol history Unknown occasionally drinks alcohol 07/10/2014 Allergies, Adverse Reactions, Alerts Substance Reaction Codes Entered Date Inactivated Date Status Remicade hives RxNorm: 472148 03/24/2017 No Inactive Date Active * NO [...] ICD-9: 276.1 ICD-10: E87.1 Active 03/27/2018 Unknown Other abnormal and i nconclusive findings on diagnostic imaging of breast ICD-9: 793.89 ICD-10: R92.8 Active 02/01/2018 Unknown Encounter for screen ing mammogram for [...] hyponatremia ICD-9: 276.1 ICD-10: E87.1 03/27/2018 Active Other abnormal and i nconclusive findings on diagnostic imaging of breast ICD-9: 793.89 ICD-10: R92.8 02/01/2018 Active Encounter for screen ing mammogram for [...] Fill Instructions Synthroid 75 mcg tablet RxNorm: 105532 TAKE 1 TABLET BY MOUTH EVERY DAY 07/27/2018 02/21/2019 Ac tive Generic For:*SYNTHROID 0.075MG TAB 08/2018 9:45:14 AM N O T I C E Last quantity doesn't match original quantity Lipitor 20 mg tablet RxNorm: 099589 1 Tablet(s) PO QPM 05/08/2018 05/02/2019 Active Benicar 40 mg tablet RxNorm: 217275 1 Tablet(s) PO daily 05/08/2018 05/02/2019 Active Celebrex 200 mg capsule RxNorm: 044460 1 Capsule(s) PO BID 05/03/2018 04/27/2019 Active citalopram 20 mg tablet RxNorm: 359464 Tablet(s) TAKE ONE (1) TABLET BY MOUTH D AILY 05/03/2018 04/27/2019 Ac tive hydrocodone 7.5 mg-a cetaminophen 325 mg tablet RxNorm: 901502 1-2 Tablet(s) PO Q4H as needed 05/01/2018 05/15/2018 Inactive cefdinir 300 mg capsule RxNorm: 331104 1 Capsule(s) PO BID 04/17/2018 04/23/2018 Inactive cefdinir 300 mg capsule RxNorm: 002670 1 Capsule(s) PO BID 04/17/2018 04/16/2018 Inactive clobetasol 0.05 % to pical cream RxNorm: 846480 1 dime size amount Ap plication TOP daily as needed vaginal irritation 03/27/2018 07/24/2018 Inactive metoprolol succinate ER 25 mg tablet,extended release 24 hr RxNorm: 826291 1 Tablet(s) PO daily 03/27/2018 10/22/2018 Active Synthroid 75 mcg tablet RxNorm: 336221 Tablet(s) TAKE 1 TABLET BY MOUTH DAILY 02/07/2018 07/26/2018 In active Generic For:*SYNTHROID 0.075MG TAB 11/14 9:16:33 AM N O T I C E Last quantity doesn't match original quantity hydrocodone 7.5 mg-a cetaminophen 325 mg tablet RxNorm: 176302 1-2 Tablet(s) PO Q4H as needed 10/12/2017 10/26/2017 Inactive Synthroid 75 mcg tablet RxNorm: 646898 Tablet(s) TAKE 1 TABLET BY MOUTH DAILY 08/09/2017 02/06/2018 In active Generic For:*SYNTHROID 0.075MG TAB 10/22 9:16:33 AM N O T I C E Last quantity doesn't match original quantity hydrocodone 7.5 mg-a cetaminophen 325 mg tablet RxNorm: 096573 1-2 Tablet(s) PO Q4H as needed 05/22/2017 06/20/2017 Inactive amlodipine 10 mg tablet RxNorm: 761544 1 Tablet(s) PO daily 1 Tablet(s) PO ashlie y 05/09/2017 09/26/2017 In active citalopram 20 mg tablet RxNorm: 991342 Tablet(s) TAKE ONE (1) TABLET BY MOUTH D AILY 05/09/2017 05/02/2018 Inactive losartan 100 mg tablet RxNorm: 840836 1 Tablet(s) PO daily TAKE 1 TABLET BY MO UTH DAILY 05/09/2017 01/01/2018 Inactive gabapentin 300 mg ca psule RxNorm: 077260 1 Capsule(s) PO daily 03/24/2017 No Stop Date Active Celebrex 200 mg capsule RxNorm: 828455 1 Capsule(s) PO BID 1 Capsule(s) PO ashlie y 03/24/2017 03/23/2017 In active Celebrex 200 mg capsule RxNorm: 990227 1 Capsule(s) PO BID 03/24/2017 03/18/2018 Inactive amlodipine 10 mg tablet RxNorm: 628000 1 Tablet(s) PO daily 1 Tablet(s) PO ashlie y 03/24/2017 05/08/2017 In active Lipitor 40 mg tablet RxNorm: 033251 Tablet(s) TAKE ONE TABLET BY MOUTH AT [facility] 02/14/2017 09/26/2017 Inactive hydrocodone 7.5 mg-a cetaminophen 325 mg tablet RxNorm: 662736 1-2 Tablet(s) PO Q4H as needed 01/16/2017 02/14/2017 Inactive scopolamine 1.5 mg t ransdermal patch (1 mg over 3 days) RxNorm: 153987 1 Patch TD Q72H 11/25/2016 12/04/2016 Inactive scopolamine 1.5 mg t ransdermal patch (1 mg over 3 days) RxNorm: 105711 1 Patch TD Q72H 11/25/2016 11/24/2016 Inactive losartan 100 mg tablet RxNorm: 951714 1 Tablet(s) PO daily TAKE 1 TABLET BY MO MIH DAILY 11/14/2016 05/08/2017 Inactive Generic For:COZAAR 100MG TA B 05/17/2016 8:31:51 AM Synthroid 75 mcg tablet RxNorm: 043392 TAKE 1 TABLET BY MOUTH DAILY 11/14/2016 06/11/2017 Inactive Generic For:*SYNTHROID 0.075MG TAB 10/22 9:16:33 AM N O T I C E Last quantity doesn't match original quantity citalopram 20 mg tablet RxNorm: 262331 TAKE ONE (1) TABLET BY MOUTH DAILY 11/14/2016 05/08/2017 In active Generic For:CELEXA 20MG TAB 11/14/2016 8:30:49 AM N O T I C E Last quantity doesn't match original quantity prednisone 10 mg tab lets in a dose pack RxNorm: 169623 1 Tablet(s) PO UD 09/30/2016 10/05/2016 In active 6-5-4-3-2-1 hydrocodone 7.5 mg-a cetaminophen 325 mg tablet RxNorm: 286353 1-2 Tablet(s) PO Q4H as needed 09/20/2016 01/15/2017 Inactive amlodipine 5 mg tablet RxNorm: 002184 TAKE ONE TABLET BY MOUTH EVERY DAY 08/15/2016 03/23/2017 In active Generic For:NORVASC 5 MG TABLET 017 3:56:26 PM N O T I C E Last quantity doesn't match original quantity Kenalog 40 mg/mL [facility] pension for injection RxNorm: 4009602 1 Milliliter(s) Inj 08/08/2016 08/08/2016 In active prednisone 10 mg tab lets in a dose pack RxNorm: 772665 1 Tablet(s) PO UD 08/08/2016 08/07/2016 In active prednisone 10 mg tab lets in a dose pack RxNorm: 554795 1 Tablet(s) PO UD 08/08/2016 08/13/2016 In active 6-5-4-3-2-1 Diflucan 150 mg tablet RxNorm: 897865 1 Tablet(s) PO daily 06/27/2016 07/10/2016 Inactive Synthroid 75 mcg tablet RxNorm: 947661 TAKE 1 TABLET BY MOUTH DAILY 06/16/2016 11/13/2016 Inactive Generic For:*SYNTHROID 0.075MG TAB pt wo uld like a 90 day supply N O T I C E Last quantity doesn't match original quantity hydrocodone 7.5 mg-a cetaminophen 325 mg tablet RxNorm: 064940 1-2 Tablet(s) PO Q4H as needed 06/06/2016 09/19/2016 Inactive citalopram 20 mg tablet RxNorm: 678579 TAKE ONE (1) TABLET BY MOUTH DAILY 05/18/2016 11/13/2016 In active Generic For:CELEXA 20MG TAB 05/17/2016 8:32:02 AM Celebrex 200 mg capsule RxNorm: 540610 1 Capsule(s) PO daily 05/17/2016 03/23/2017 Inactive losartan 100 mg tablet RxNorm: 095768 TAKE 1 TABLET BY MOUTH DAILY 05/17/2016 11/12/2016 Inactive Generic For:COZAAR 100MG TAB 05/17/2016 8:31:51 AM amlodipine 5 mg tablet RxNorm: 087202 1 Tablet(s) PO daily 05/10/2016 08/14/2016 Inactive Cipro 500 mg tablet RxNorm: 291498 1 Tablet(s) PO BID 05/04/2016 05/03/2016 Inactive Cipro 500 mg tablet RxNorm: 798015 1 Tablet(s) PO BID 05/04/2016 05/13/2016 Inactive Diflucan 150 mg tablet RxNorm: 510818 1 Tablet(s) PO daily 04/18/2016 05/01/2016 Inactive Monistat Soothing Ca re 1.2 % topical gel RxNorm: 4112261 1 Application TOP BI D 03/07/2016 01/01/2018 In active Diflucan 150 mg tablet RxNorm: 282941 1 Tablet(s) PO daily 03/07/2016 03/13/2016 Inactive Lipitor 40 mg tablet RxNorm: 805159 Tablet(s) TAKE ONE TABLET BY MOUTH AT BE DTIME 02/23/2016 02/13/2017 Inactive citalopram 20 mg tablet RxNorm: 962863 TAKE ONE (1) TABLET BY MOUTH DAILY 02/18/2016 05/17/2016 In active Generic For:CELEXA 20MG TAB refill reque st losartan 100 mg tablet RxNorm: 904674 Tablet(s) 1 Tablet, 1 time per Day 02/09/2016 05/16/2016 In active INSURANCE WILL NOT COVER ADELA ANDREWS IED UNTIL OTHER FORMULARIES HAVE BEEN TRIED AND FAILED hydrocodone 7.5 mg-a cetaminophen 325 mg tablet RxNorm: 317262 1-2 Tablet(s) PO Q4H as needed 02/03/2016 06/05/2016 Inactive Synthroid 75 mcg tablet RxNorm: 800073 Tablet(s) TAKE 1 TABLET BY MOUTH DAILY 01/19/2016 06/15/2016 In active Generic For:*SYNTHROID 0.075MG TAB 04/2014 10:00:02 AM N O T I C E PRESCRIPTION PREVIOUSLY AUTHORIZED BY DOCTOR:SWATI BEY prednisone 10 mg tab lets in a dose pack RxNorm: 173604 1 Tablet(s) PO UD 01/07/2016 02/22/2016 In active 6-5-4-3-2-1 amlodipine 10 mg tablet RxNorm: 874753 1 Tablet(s) PO daily 12/07/2015 11/30/2016 Inactive citalopram 20 mg tablet RxNorm: 654044 TAKE ONE (1) TABLET BY MOUTH DAILY 11/17/2015 02/14/2016 In active Generic For:CELEXA 20MG TAB refill reque st hydrocodone 7.5 mg-a cetaminophen 325 mg tablet RxNorm: 012915 1-2 Tablet(s) PO Q4H as needed 10/08/2015 02/02/2016 Inactive losartan 100 mg tablet RxNorm: 992369 Tablet(s) 1 Tablet, 1 time per Day 2015 02/07/2016 In active INSURANCE WILL NOT COVER [place] ANDREWS IED UNTIL OTHER FORMULARIES HAVE BEEN TRIED AND FAILED citalopram 20 mg tablet RxNorm: 458943 TAKE ONE (1) TABLET BY MOUTH DAILY 08/10/2015 11/07/2015 In active Generic For:CELEXA 20MG TAB 08/10/2015 8:59:58 AM Synthroid 75 mcg tablet RxNorm: 450308 Tablet(s) TAKE 1 TABLET BY MOUTH DAILY 05/26/2015 12/21/2015 In active Generic For:*SYNTHROID 0.075MG TAB 0804/2014 10:00:02 AM N O T I C E PRESCRIPTION PREVIOUSLY AUTHORIZED BY DOCTOR:SWATI BEY prednisone 20 mg tablet RxNorm: 949598 2 Tablet(s) PO daily 05/26/2015 05/30/2015 Inactive Lipitor 40 mg tablet RxNorm: 403443 TAKE ONE TABLET BY MOUTH AT BEDTIME 05/14/2015 02/07/2016 In active Generic For:LIPITOR 40MG TAB 05/13/2015 8:26:33 AM N O T I C E PRESCRIPTION PREVIOUSLY AUTHORIZED BY DOCTOR:SWATI BEY hydrocodone 7.5 mg-a cetaminophen 325 mg tablet RxNorm: 160449 1-2 Tablet(s) PO Q4H as needed 05/11/2015 10/07/2015 Inactive Celebrex 200 mg capsule RxNorm: 449592 1 Capsule(s) PO daily 05/07/2015 04/30/2016 Inactive citalopram 20 mg tablet RxNorm: 615738 TAKE ONE (1) TABLET BY MOUTH DAILY 04/27/2015 07/25/2015 In active Generic For:CELEXA 20MG TAB 04/26/2015 7:30:08 PM gabapentin 300 mg ca psule RxNorm: 267628 1 Capsule(s) PO QID 04/09/2015 04/02/2016 Inactive citalopram 20 mg tablet RxNorm: 846713 TAKE ONE (1) TABLET BY MOUTH DAILY 01/26/2015 04/25/2015 In active Generic For:CELEXA 20MG TAB 01/26/2015 8:40:11 AM losartan 100 mg tablet RxNorm: 804947 1 Tablet, 1 time per Day 01/26/2015 03/29/2015 Inactive INSURANCE WILL NOT COVER ADELA ANDREWS UNTIL OTHER FORMULARIES HAVE BEEN TRIED AND FAILED hydrocodone 7.5 mg-a cetaminophen 325 mg tablet RxNorm: 855499 1-2 Tablet(s) PO Q4H as needed 01/23/2015 05/10/2015 Inactive Neurontin 100 mg cap almaz RxNorm: 620937 1 Capsule(s) PO TID 01/14/2015 03/09/2015 Inactive Neurontin 100 mg cap almaz RxNorm: 772697 1 Capsule(s) PO TID 01/14/2015 01/13/2015 Inactive Keflex 500 mg capsule RxNorm: 163057 1 Capsule(s) PO TID 01/06/2015 01/05/2015 Inactive Keflex 500 mg capsule RxNorm: 405447 1 Capsule(s) PO TID 01/06/2015 01/12/2015 Inactive hydrocodone 7.5 mg-a cetaminophen 325 mg tablet RxNorm: 494154 1-2 Tablet(s) PO Q4H as needed 12/29/2014 01/22/2015 Inactive Duexis 800 mg-26.6 m g tablet RxNorm: 8581152 1 Tablet(s) PO TID a s needed 12/19/2014 03/29/2015 In active Duexis 800 mg-26.6 m g tablet RxNorm: 2626676 1 Tablet(s) PO TID a s needed 12/19/2014 12/18/2014 In active Kenalog 40 mg/mL [place] pension for injection RxNorm: 4925641 1 Milliliter(s) Inj 12/09/2014 12/09/2014 In active prednisone 10 mg tab lets in a dose pack RxNorm: 190092 1 Tablet(s) PO UD 12/09/2014 12/14/2014 In active 6-5-4-3-2-1 amlodipine 10 mg tablet RxNorm: 491630 1 Tablet(s) PO daily 11/13/2014 11/07/2015 Inactive citalopram 20 mg tablet RxNorm: 788012 TAKE ONE (1) TABLET BY MOUTH DAILY 10/23/2014 01/20/2015 In active Generic For:CELEXA 20MG TAB 10/23/2014 4:32:02 PM N O T I C E PRESCRIPTION PREVIOUSLY AUTHORIZED BY DOCTOR:SWATI BEY hydrocodone 7.5 mg-a cetaminophen 325 mg tablet RxNorm: 039817 1-2 Tablet(s) PO Q4H as needed 10/22/2014 12/28/2014 Inactive Synthroid 75 mcg tablet RxNorm: 898020 TAKE 1 TABLET BY MOUTH DAILY 09/22/2014 04/19/2015 Inactive Generic For:*SYNTHROID 0.075MG TAB 04/2014 10:00:02 AM N O T I C E PRESCRIPTION PREVIOUSLY AUTHORIZED BY DOCTOR:SWATI BYE amlodipine 5 mg tablet RxNorm: 485531 1 Tablet(s) PO daily 08/25/2014 11/12/2014 Inactive Synthroid 75 mcg tablet RxNorm: 237729 1 Tablet(s) PO daily ecept a 1/2 tab on Monday07/11/2014 09/21/2014 Inactive Flonase Allergy Reli ef 50 mcg/actuation nasal spray,suspension RxNorm: 1 [place] NASAL BID 07/10/2014 12/06/2014 Inactive methotrexate sodium 2.5 mg tablet RxNorm: 077900 3 Tablet(s) PO weekly No Start Date 04/08/2015 Inactive Aldactone 25 mg tablet RxNorm: 002658 1 Tablet(s) PO daily No Start Date 03/26/2018 Inactive gabapentin 300 mg ca psule RxNorm: 252192 1 Capsule(s) PO TID No Start Date 04/08/2015 Inactive Plaquenil 200 mg tablet RxNorm: 537313 1 Tablet(s) PO BID No Start Date 05/22/2016 Inactive losartan 100 mg tablet RxNorm: 366783 1 Tablet(s) PO daily No Start Date 01/25/2015 Inactive Benicar 20 mg tablet RxNorm: 718123 1 Tablet(s) PO daily No Start Date 05/07/2018 Inactive Remicade intravenous RxNorm: 276562 intravenous No Start Date 03/23/2017 Inactive amlodipine 5 mg tablet RxNorm: 497828 1 Tablet(s) PO daily No Start Date 08/24/2014 Inactive Celebrex 200 mg capsule RxNorm: 985072 1 Capsule(s) PO daily No Start Date 10/16/2017 Inactive citalopram 20 mg tablet RxNorm: 828559 1 Tablet(s) PO daily No Start Date 10/22/2014 Inactive Synthroid 88 mcg tablet RxNorm: 394844 1 Tablet(s) PO daily No Start Date 07/09/2014 Inactive Arava 20 mg tablet RxNorm: 945929 1 Tablet(s) PO daily No Start Date 01/01/2018 Inactive Lipitor 40 mg tablet RxNorm: 196841 1 Tablet(s) PO daily No Start Date 05/13/2015 Inactive chlorthalidone 25 mg tablet RxNorm: 643090 1 Tablet(s) PO daily No Start Date 03/26/2018 Inactive Synthroid 75 mcg tablet RxNorm: 042921 1 Tablet(s) PO daily No Start Date 07/10/2014 Inactive hydrocodone 7.5 mg-a cetaminophen 325 mg tablet RxNorm: 524067 Tablet(s) PO as neede d No Start Date 10/21/2014 Inactive Medication Administered Medication Codes Instruc tions Start Date Status Kenalog 40 mg/mL suspension for injection RxNorm: 1691159 1Milliliter 08/08/2016 N o longer Active Kenalog 40 mg/mL suspension for injection RxNorm: 3434586 1Milliliter 12/09/2014 N o longer Active Immunizations Vaccine Codes Date Status SHINGARIX CVX: 121 04/05 completed Assessments Condition Codes Effectiv e Dates Essential (primary) hypertension ICD -10: I10 ICD-9: 401.9 06/12/2018 Atrophy of thyroid (acquired) ICD-10 : E03.4 ICD-9: 244.8 06/12/2018 Mixed hyperlipidemia ICD-10: E78.2 ICD-9: 272.4 05/08/2018 Hypo-osmolality and hyponatremia ICD -10: E87.1 ICD-9: 276.1 03/27/2018 Other abnormal and inconclusive findings on diagnostic imaging of breast ICD-10: R92.8 ICD-9: 793.89 02/01/2018 Encounter for screening mammogram for ma lignant [...] Item Item Code Result Date Free T4 Xrq939 FREE T4 0.86 ng/dL 05/07/2018 Comp Metabolic Rgb443 NA 138 mEq/L 05/07/2018 Comp Metabolic Ahc465 K 4.2 mEq/L 05/07/2018 Comp Metabolic Zvm332 CL 104 mEq/L 05/07/2018 Comp Metabolic Oxj327 CO2 28.0 mEq/L 05/07/2018 Comp Metabolic Fwd203 AN ION GAP 10 05/07/2018 Comp Metabolic Kbf468 GL UCOSE 108 mg/dL 05/07/2018 Comp Metabolic Sbv794 Cr eat 0.9 mg/dL 05/07/2018 Comp Metabolic Byw673 eG FR 71 ml/min/1.73m2 05/07 Comp Metabolic Omb953 BUN 15 mg/dL 05/07/2018 Comp Metabolic Vsm509 B/ C Ratio 17.6 Ratio 05/07/2018 Comp Metabolic Oqv605 CA LCIUM 9.5 mg/dL 05/07/2018 Comp Metabolic Kvd543 AL K PHOS 100 U/L 05/07/2018 Comp Metabolic Hur880 T(SGOT) 17 U/L 05/07/2018 Comp Metabolic Vxi048 AL T(SGPT) 11 U/L 05/07/2018 Comp Metabolic Cvt019 BI LI T 0.4 mg/dL 05/07/2018 Comp Metabolic Xqq772 AL BUMIN 3.9 g/dL 05/07/2018 Comp Metabolic She358 TP RO 6.3 g/dL 05/07/2018 Comp Metabolic Wqn251 GL OB 2.4 g/dL 05/07/2018 Comp Metabolic Zfy602 A/ G Ratio 1.6 Ratio 05/07/2018 Comp Metabolic Dex630 Os mo 277 mOsmo 05/07/2018 Cbc With [...] 31.6 % 05/07/2018 Cbc With Differential Ord2 [place]% 9.7 % 05/07/2018 Cbc With Differential Ord2 [...] 2.02 K/ul 05/07/2018 Cbc With Differential Ord2 [place] ABS# 0.6 K/ul 05/07/2018 Cbc With Differential [...] 31.1 pg 12/26/2017 Cbc With Differential Ord2 [place]% 9.2 % 12/26/2017 Cbc With Differential Ord2 [...] 1.53 K/ul 12/26/2017 Cbc With Differential Ord2 [place] ABS# 0.7 K/ul 12/26/2017 Cbc With Differential Ord2 Eos ABS# 0.1 K/ul 12/26/2017 Cbc With Differential Ord2 Baso ABS# 0.0 K/ul 12/26/2017 Free T4 Axb548 FREE T4 0.93 ng/dL 12/26/2017 Comp Metabolic Yqs310 NA 135 mEq/L 12/26/2017 Comp Metabolic Wxf566 K 4.4 mEq/L 12/26/2017 Comp Metabolic Kpc954 CL 98 mEq/L 12/26/2017 Comp Metabolic Qxh941 CO2 28.0 mEq/L 12/26/2017 Comp Metabolic Axb912 AN ION GAP 13 12/26/2017 Comp Metabolic Zfe084 GL UCOSE 92 mg/dL 12/26/2017 Comp Metabolic Das140 Cr eat 1.1 mg/dL 12/26/2017 Comp Metabolic Rip043 eG FR 52 ml/min/1.73m2 12/26 Comp Metabolic Hwm020 BUN 25 mg/dL 12/26/2017 Comp Metabolic Cyv502 B/ C Ratio 22.7 Ratio 12/26/2017 Comp Metabolic Oxa917 CA LCIUM 9.8 mg/dL 12/26/2017 Comp Metabolic Hqw378 AL K PHOS 91 U/L 12/26/2017 Comp Metabolic Asl064 T(SGOT) 16 U/L 12/26/2017 Comp Metabolic Wzl780 AL T(SGPT) 12 U/L 12/26/2017 Comp Metabolic Cqe293 BI LI T 0.5 mg/dL 12/26/2017 Comp Metabolic Cas673 AL BUMIN 4.3 g/dL 12/26/2017 Comp Metabolic Dwx785 TP RO 6.8 g/dL 12/26/2017 Comp Metabolic Mwx012 GL OB 2.5 g/dL 12/26/2017 Comp Metabolic Dat154 A/ G Ratio 1.7 Ratio 12/26/2017 Comp Metabolic Unh346 Os mo 274 mOsmo 12/26/2017 Urine Culture Ucult Prel iminary NO Growth Day 1 06/29 Urine Culture Ucult Comp lete NO Growth Day 2 06/29 Culture Urine [id number] URI NE CULTURE SEE NOTES 04/22/2016 Culture Urine [id number] Con tinued Results 04/22/2016 Urine Culture Ucult Comp lete >100,000 col/ml aerobic grow th sent to ref lab 04/20/2016 Comp Metabolic Xya474 NA 137 mEq/L 02/10/2016 Comp Metabolic Oec000 K 4.1 mEq/L 02/10/2016 Comp Metabolic Gas007 CL 102 mEq/L 02/10/2016 Comp Metabolic Gwh437 CO2 28.0 mEq/L 02/10/2016 Comp Metabolic Bwm657 AN ION GAP 11 02/10/2016 Comp Metabolic Tow571 GL UCOSE 104 mg/dL 02/10/2016 Comp Metabolic Yrt441 Cr eat 0.7 mg/dL 02/10/2016 Comp Metabolic Gci930 eG FR 83 ml/min/1.73m2 02/09 Comp Metabolic Qdo620 BUN 14 mg/dL 02/10/2016 Comp Metabolic Wcd475 B/ C Ratio 18.9 Ratio 02/10/2016 Comp Metabolic Lzh993 CA LCIUM 9.7 mg/dL 02/10/2016 Comp Metabolic Yyi184 AL K PHOS 121 U/L 02/10/2016 Comp Metabolic Fdm281 T(SGOT) 19 U/L 02/10/2016 Comp Metabolic Vku128 AL T(SGPT) 13 U/L 02/10/2016 Comp Metabolic Jri039 BI LI T 0.5 mg/dL 02/10/2016 Comp Metabolic Cha660 AL BUMIN 4.3 g/dL 02/10/2016 Comp Metabolic Ord372 TP RO 6.8 g/dL 02/10/2016 Comp Metabolic Cmo795 GL OB 2.5 g/dL 02/10/2016 Comp Metabolic Vst570 A/ G Ratio 1.7 Ratio 02/10/2016 Comp Metabolic Pmz778 Os mo 275 mOsmo 02/10/2016 Lipid Ord30 CHOL 229 mg/dL 02/10/2016 Lipid Ord30 HDL 59.0 mg/dl 02/10/2016 Lipid Ord30 TRIG 252 mg/dL 02/10/2016 Lipid Ord30 LDL 120 mg/dL 02/10/2016 Lipid Ord30 C/HDL 3.9 Ratio 02/10/2016 Free T4 Hug838 FREE T4 0.87 ng/dL 02/10/2016 Tsh Ord6 [...] 29.2 pg 02/10/2016 Cbc With Differential Ord2 [place]% 18.6 % 02/10/2016 Cbc With Differential Ord2 [...] 1.81 K/ul 02/10/2016 Cbc With Differential Ord2 [place] ABS# 1.1 K/ul 02/10/2016 Cbc With Differential Ord2 Eos ABS# 0.1 K/ul 02/10/2016 Cbc With Differential Ord2 Baso ABS# 0.1 K/ul 02/10/2016 Tsh Ord6 hTSH II 0.85 uIU/mL 04/02/2015 Lipid Ord30 CHOL 207 mg/dL 04/02/2015 Lipid Ord30 HDL 68.0 mg/dl 04/02/2015 Lipid Ord30 TRIG 193 mg/dL 04/02/2015 Lipid Ord30 LDL 100 mg/dL 04/02/2015 Lipid Ord30 C/HDL 3.0 Ratio 04/02/2015 Free T4 Dro332 FREE T4 1.09 ng/dL 04/02/2015 Free T4 Mna294 FREE T4 0.82 ng/dL 10/15/2014 Tsh Ord6 [...] dentition 05/08/2018 None Full Exam - General 1995 [...] dentition 12/26/2017 None Full Exam - General 1995 Ears/Nose/Throat [...] swelling 12/26/2017 None Full Exam - General 1995 Musculoskeletal digits and nails PIPs: first 12/26/2017 [...] 1: 124/74 Code: 8480-6 BMI: 31.6 Code: 75880-7 Heart Rate 1: 55 bpm Height: 5'4" SpO2: 99% Weight: 184 lbs 05/08/2018 Blood Pressure 1: 148/84 Code: 8480-6 BMI: 31.8 Code: 92393-5 Heart Rate 1: 60 bpm Height: 5'4" SpO2: 96% Weight: 185 lbs 03/27/2018 Blood Pressure 1: 142/84 Code: 8480-6 BMI: 31.2 Code: 63970-3 Heart Rate 1: 75 bpm Height: 5'4" SpO2: 97% Weight: 182 lbs 01/02/2018 Blood Pressure 1: 136/68 Code: 8480-6 BMI: 32.4 Code: 02966-8 Heart Rate 1: 80 bpm Height: 5'4" SpO2: 99% Waist Measure (cm): 104 cm Weight: 189 lbs 12/26/2017 Blood Pressure 1: 138/72 Code: 8480-6 BMI: 31.4 Code: 92699-9 Heart Rate 1: 72 bpm Height: 5'4" SpO2: 96% Weight: 183 lbs 10/17/2017 Blood Pressure 1: 156/72 Code: 8480-6 BMI: 31.4 Code: 04211-5 Heart Rate 1: 81 bpm Height: 5'4" SpO2: 98% Temperature: 36.5 (C ) / 97.7 (F) Weight: 183 lbs 09/27/2017 Blood Pressure 1: 140/82 Code: 8480-6 BMI: 32.1 Code: 53866-1 Heart Rate 1: 82 bpm Height: 5'4" SpO2: 98% Weight: 187 lbs 07/31/2017 Blood Pressure 1: 138/82 Code: 8480-6 Heart Rate 1: 87 bpm SpO2: 99% 03/24/2017 Blood Pressure 1: 146/86 Code: 8480-6 BMI: 31.8 Code: 79816-3 Heart Rate 1: 79 bpm Height: 5'4" SpO2: 96% Temperature: 36.4 (C ) / 97.5 (F) Weight: 185 lbs 08/30/2016 Blood Pressure 1: 142/88 Code: 8480-6 BMI: 31.6 Code: 89449-0 Heart Rate 1: 80 bpm Height: 5'4" SpO2: 93% Weight: 184 lbs 08/08/2016 Blood Pressure 1: 142/76 Code: 8480-6 BMI: 29.9 Code: 20759-9 Heart Rate 1: 80 bpm Height: 5'4" SpO2: 94% Weight: 174 lbs 06/27/2016 Blood Pressure 1: 156/72 Code: 8480-6 BMI: 30.6 Code: 34396-1 Heart Rate 1: 78 bpm Height: 5'4" SpO2: 95% Weight: 178 lbs 05/23/2016 Blood Pressure 1: 146/84 Code: 8480-6 Heart Rate 1: 66 bpm Height: 5'4" SpO2: 94% 04/18/2016 Blood Pressure 1: 148/84 Code: 8480-6 BMI: 30.2 Code: 05745-9 Heart Rate 1: 81 bpm Height: 5'4" SpO2: 97% Weight: 176 lbs 03/07/2016 Blood Pressure 1: 130/78 Code: 8480-6 BMI: 30.0 Code: 84979-3 Heart Rate 1: 85 bpm Height: 5'4" SpO2: 96% Weight: 175 lbs 02/23/2016 Blood Pressure 1: 140/78 Code: 8480-6 BMI: 29.7 Code: 51695-5 Heart Rate 1: 74 bpm Height: 5'4" SpO2: 95% Weight: 173 lbs 09/15/2015 Blood Pressure 1: 140/88 Code: 8480-6 BMI: 29.4 Code: 03544-2 Heart Rate 1: 81 bpm Height: 5'4" SpO2: 97% Weight: 171 lbs 8 oz 05/26/2015 Blood Pressure 1: 150/80 Code: 8480-6 BMI: 31.6 Code: 20965-7 Heart Rate 1: 70 bpm Height: 5'4" SpO2: 96% Weight: 184 lbs 04/09/2015 Blood Pressure 1: 136/74 Code: 8480-6 BMI: 31.4 Code: 36572-6 Heart Rate 1: 91 bpm Height: 5'4" SpO2: 94% Weight: 183 lbs 03/30/2015 Blood Pressure 1: 130/72 Code: 8480-6 BMI: 30.9 Code: 49786-0 Heart Rate 1: 80 bpm Height: 5'4" SpO2: 97% Waist Measure (cm): 102 cm Weight: 180 lbs 03/10/2015 Blood Pressure 1: 152/80 Code: 8480-6 BMI: 31.1 Code: 42985-9 Heart Rate 1: 66 bpm Height: 5'4" SpO2: 98% Weight: 181 lbs 12/16/2014 Blood Pressure 1: 132/88 Code: 8480-6 Blood Pressure 1: 132/88 Code: 8480-6 Heart Rate 1: 88 bpm SpO2: 98% Weight: 183 lbs 12/09/2014 Blood Pressure 1: 140/82 Code: 8480-6 BMI: 31.2 Code: 90538-0 Heart Rate 1: 105 bpm Height: 5'4" SpO2: 93% Weight: 182 lbs 11/13/2014 Blood Pressure 1: 148/88 Code: 8480-6 BMI: 31.8 Code: 22714-8 Heart Rate 1: 54 bpm Height: 5'4" SpO2: 98% Weight: 185 lbs 07/10/2014 Blood Pressure 1: 144/96 Code: 8480-6 BMI: 31.4 Code: 39332-4 Heart Rate 1: 99 bpm Height: 5'4" [...] frantz sary hypertension 09/27/2017 None hypothyroid Quality 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 P ATIENT, LEVEL III Diagnosis: Essential (primary) hypertension[ICD10: I10] Diagnosis: Atrophy of thyroid (acquired)[ICD10: E03.4] Shannon Falk MD, C CPT-4: 79390 06/12/2018 ([id number]) [id number] EST. P ATIENT, LEVEL IV Diagnosis: Essential (primary) hypertension[ICD10: I10] Diagnosis: Atrophy of thyroid (acquired)[ICD10: E03.4] Diagnosis: Mixed hyperlipidemia[ICD10: E78.2] Shannon Falk MD, [facility] CPT- 4: 56740 05/08/2018 ([id number]) [id number] EST. P ATIENT, LEVEL III Diagnosis: Hypo-osmolality and hyponatremia[ICD10: E87.1] Shannon Falk MD, C CPT-4: 53668 03/27/2018 ([id number]) [id number] EST. 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 P ATIENT, LEVEL III Diagnosis: Otalgia, left ear[ICD10: H92.02] Diagnosis: Essential (primary) hypertension[ICD10: I10] Elizabet Falk MD, [facility] CPT-4: 24639 10/17/2017 ([id number]) 80021 EST. 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 P ATIENT, LEVEL IV Diagnosis: Atrophy of thyroid (acquired)[ICD10: E03.4] Diagnosis: Pleurisy[ICD10: R09.1] Diagnosis: Essential (primary) hypertension[ICD10: I10] Shannon Falk MD, [facility] CPT-4: 90731 08/30/2016 ([id number]) 50383 EST. P ATIENT, LEVEL III Diagnosis: Pleurisy[ICD10: R09.1] Elizabet Falk MD, [facility] CPT-4: 61989 08/08/2016 65251 EST. PATIENT, LEVEL III Diagnosis: Dysuria[ICD10: R30.0] Diagnosis: Other pruritus[ICD10: L29.8] Shila Falk MD, [facility] CPT-4: 82293 06/27/2016 ([id number]) 62026 EST. P ATIENT, LEVEL III Diagnosis: Pain in left foot[ICD10: M79.672] Diagnosis: Pain in left toe(s)[ICD10: M79.675] Elizabet Falk MD, [facility] CPT-4: 73297 05/23/2016 36716 EST. PATIENT, LEVEL III Diagnosis: Candidiasis of vulva and vagina[ICD10: B37.3] Diagnosis: Dysuria[ICD10: R30.0] Shila Falk MD, [facility] CPT-4: 25010 04/18/2016 83226 EST. PATIENT, LEVEL III Diagnosis: Other pruritus[ICD10: L29.8] Diagnosis: Candidiasis of vulva and vagina[ICD10: B37.3] Shila Falk MD, [facility] CPT-4: 32045 03/07/2016 ([id number]) 73108 EST. 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 P ATIENT, LEVEL IV Diagnosis: Essential (primary) hypertension[ICD10: I10] Diagnosis: Mixed hyperlipidemia[ICD10: E78.2] Diagnosis: Major depressive disorder, single episode, unspecified[ICD10: F32.9] Shannon Falk MD, [facility] CPT-4: 99500 09/15/2015 27138 EST. PATIENT, LEVEL III Diagnosis: Rash and other nonspecific skin eruption[ICD10: R21] Shila Falk MD, [facility] CPT-4: 71137 05/26/2015 ([id number]) 22696 EST. P ATIENT, LEVEL IV Diagnosis: Essential (primary) hypertension[ICD10: I10] Diagnosis: Foot drop, left foot[ICD10: M21.372] Diagnosis: Sacroiliitis, not elsewhere classified[ICD10: M46.1] Shannon Falk MD, [facility] CPT-4: 22087 04/09/2015 ([id number]) 37079 EST. 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 P ATIENT, LEVEL III Diagnosis: Trochanteric bursitis, left hip[ICD10: M70.62] Diagnosis: Iliotibial band syndrome, left leg[ICD10: M76.32] Diagnosis: Sciatica, left side[ICD10: M54.32] Elizabet Falk MD, [facility] CPT-4: 66952 12/16/2014 ([id number]) 04510 EST. P ATIENT, LEVEL III Diagnosis: Sciatica, left side[ICD10: M54.32] Diagnosis: Sacroiliitis, not elsewhere classified[ICD10: M46.1] Elizabet Falk MD, [facility] CPT-4: 47804 12/09/2014 ([id number]) 95851 EST. 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 06/12/2018 Appointment: [facility] (15 min) Moderate 06/12/2018 Patient Education: Patient [...] of control. 05/08/2018 Appointment: Shannon Falk WPtel: [facility] (15 min) Moderate 05/08/2018 Patient Education: Patient Medication Summary Completed 05/08/2018 Patient Education: Hypertension Completed 05/08/2018 Appointment: Shannon Falk WPtel: [facility] (15 min) Moderate 03/28/2018 Visit Plan: Hyponatremia - continue with current treatment - gatorade/powerade, monitor electrolytes. 03/27/2018 Appointment: Shannon Falk WPtel: [address] [place], [place] [id number] (15 min) Moderate 03/27/2018 Patient Education: Patient Medication Summary Completed 03/27/2018 Patient Education: Patient Medication Summary Completed 02/01/2018 Appointment: Shannon Falk WPtel: [address] [place] [id number] (15 min) Moderate 01/22/2018 Patient Education: Patient [...] surrogate. 01/02/2018 Appointment: [facility]onaldson [facility]el[facility] [phone] [facility] [facility] - Annual Wellness Visit 01/02/2018 [...] control. 12/26/2017 Appointment: Shannon Falk [facility]Ptel: [phone] [facility] [place] (15 min) Moderate 12/26/2017 Patient Education: [...] plan. 10/17/2017 Appointment: El[facility]ab[facility] Donaldson [facility]el[facility] [phone] [facility] [place] (15 min) Moderate 10/17/2017 Patient Education: [...] at home. 09/27/2017 Appointment: Shannon Falk WPtel: [facility] [place] (15 min) Moderate 09/27/2017 Patient Education: Patient Medication Summary Completed 09/27/2017 Care Plan: Referral Order SNOMED-CT : [id number] Pending 09/27/2017 Appointment: Shannon Falk WPtel: [phone] [facility] [place] (15 min) Moderate 09/21/2017 Appointment: Nurse [...] twice daily. 03/24/2017 Appointment: Shannon Falk WPtel: [facility] [place] (15 min) Moderate 03/24/2017 Patient Education: Patient Medication Summary Completed 03/24/2017 Appointment: Shannon Falk WPtel: [facility] [place] (15 min) Moderate 03/16/2017 Appointment: Shannon Falk WPtel: [facility] [place] (15 min) Moderate 03/01/2017 Visit Plan: [...] care. 08/30/2016 Appointment: Shannon Falk WPtel: [phone] [facility] (15 min) Moderate 08/30/2016 Patient Education: Patient [...] of plan. 08/08/2016 Appointment: Elizabet Donaldson WPtel: [phone] [phone] [place] (30 min) Complex 08/08/2016 Patient Education: Patient Medication Summary Completed 08/08/2016 Referral: Delia Bernstein WPtel: [phone] [place] [id number] Referral Initiated 08/01/2016 Visit Plan: Vaginal yeast [...] refer. 06/27/2016 Appointment: Shila Deluna WPtel: [phone] [facility] (30 min) Complex 06/27/2016 Patient Education: Patient Medication Summary Completed 06/27/2016 Care Plan: Referral Order SNOMED-CT : [id number] Pending 06/27/2016 Visit Plan: Left foot, 1st and 2nd toe pain-suspect fracture of left great toe-will obtain xrays and proceed as indicated. Patient verbalized understanding of plan. 05/23/2016 Appointment: Mendoza Elizabet WPtel[facility] [phone] [facility] (15 min) Moderate 05/23/2016 Patient Education: Patient [...] probiotics 02/23/2016 Appointment: Shannon Falk [facility]Ptel: [phone] [facility] [place] (15 min) Moderate 02/23/2016 Patient Education: [...] Completed 09/15/2015 Appointment: Shannon Falk WPtel: [facility] (15 min) Moderate 07/29/2015 Visit Plan: Rash [...] - vitamin B12 liquid 2000mcg daily - [facility] sells the liquid b12, folic acid - take daily. metanex 1 capsule twice daily - call office if this seems to help decrease nerve pain increase the night-time dosing of gabapentin to 300mg in AM, Noon, 6pm and 10pm 04/09/2015 Appointment: Shannon Falk [facility]Ptel: [phone] [facility] (15 min) Moderate 04/09/2015 Patient Education: Patient [...] 2012. 03/10/2015 Appointment: Shannon [facility]Ptel: [phone] [facility] [place] (15 min) Moderate 03/10/2015 Patient Education: Patient Medication Summary Completed 03/10/2015 Care Plan: SCREENINGMAMMOGRAPHYDIGITAL LOINC : 49020-4 Ordered 03/10/2015 Care Plan: Referral Order SNOMED-CT : [id number] Ordered 03/10/2015 Care Plan: Referral Order SNOMED-CT : [id number] Ordered 03/10/2015 Visit Plan: Left hip bursitis/Iliot [...] Rehabilitation exercises Completed 12/16/2014 Patient Education: .[employer] Exercise for [place]i [employer] Completed 12/16/2014 Care Plan: Referral Order SNOMED-CT : [id number] Ordered 12/16/2014 Visit Plan: Sacroiliitis - back [...] Patient Medication Summary Completed 12/09/2014 Patient Education: .[employer] Exercise for [employer] Completed 12/09/2014 Visit [...] tunnel brace. 11/13/2014 Appointment: Shannon Falk WPtel: [address] [place], [place] [id number] Follow up 11/13/2014 Patient Education: Patient Medication [...] stomach pain. ALIGN PROBIOTIC - TAKE DAILY ([email or web address] -TWO OTHER PROBIOTICS THAT ARE HIGH QUALITY) CIPROFLOXACIN TO BE TAKEN IF NEEDED IF THE DIARRHEA DOES NOT IMPROVE OR IF IT WORSENS. 07/10/2014 Appointment: Shannon Falk WPtel: [address] [place], [place] [address] [place] ([place]) New Patient 07/10/2014 Patient Education: Patient Medication Summary Completed 07/10/2014 Patient Education: Hypertension Completed 07/10/2014 Referral: Darci Spann Referral Relationship Referral: External, Ordering Provider Referral Appointment Requested Referral: External, Ordering Provider 09/28 Referral info faxed to [facility] 10/03 They tried calling her with an appt and she did not answer. Called patient and she will call them back. Appoint ment Requested Referral: External, Ordering Provider Referral Appointment Requested Referral: Delia Bernstein WPtel: [address] [place], [place] [id number] Referral Initiated Referral: External, Ordering Provider Referral Completed Instructions Comment catacaleb gonsalves e - look up on [employer] . Hypertension - well controlled - el[place] [...] is finished, refill the 10mg pill at [facility]. carpal tunnel brace . Hypertension - [...] repeat scope in 2013. Nasal spray- use twi ce daily, one spray per nostril twice daily, after 30 minutes, rinse out nose with saline spray.. Use opposite hand per nostril to spray in the nasal steroid allergy spray. ALIGN PROBIOTIC - TAKE DAILY ([employer] -TWO OTHER PROBIOTICS THAT ARE [...] stomach pain. ALIGN PROBIOTIC - TAKE DAILY ([employer] OR [employer] [facility] -TWO OTHER PROBIOTICS THAT ARE [...] vitamin B12 liquid 2 000mcg daily - [facility] sells the liquid b12 folic acid [...] - vitamin B12 liquid 2000mcg daily - [facility] sells the liquid b12, folic [...]
--- OUTSIDE RECORDS SUMMARY | 2019-06-07 16:26 | XMS REPORT | CCD ---
Author Author Dalila Falk Organization Shannon Falk MD, [facility] Address [address] [place] [address] Phone Care Team Providers Care Agronomist Name Role Phone PP Unavailable CCM Unavailable Summary Purpose Interface Exchange Insurance Providers Payer name Policy type / Coverage type Covered republican ID Effective Begin Date Effective End Date WPS Medicare Part B Medicare Part B [id number] Unknown [place] Usp Life Insurance M edicare Part B [id number] Unkn own Family history Brother Diagnosis Age At Onset Alcoholism Unknown Mother Diagnosis Age At Onset Hyperlipidemia Unknown Father Diagnosis Age At Onset Alcoholism Unknown Heart Attack Unknown Colon cancer Unknown Cancer Unknown Stroke Unknown Hypertension Unknown Hyperlipidemia Unknown Runs in the family Diagnosis Age At Onset Diabetes Unknown Social History Social History Element Codes Description Effective Dates 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 Marital status Unknown M elio locke 07/10/2014 Number of children Unknown 2 07/10/[address]: 037125665 Has never smoked or chewed tobacco 07/10/2014 Alcohol history Unknown occasionally drinks alcohol 07/10/2014 Allergies, Adverse Reactions, Alerts Allergies, Adverse Reactions, Alerts data not found Past Medical History Illness Codes Condition Status Onset Date Resolved Date Atrophy of thyroid ( acquired) ICD-9: 244.8 ICD-10: E03.4 Active 02/23/2016 Unknown Essential (primary) hypertension ICD-9: 401.9 ICD-10: I10 Active 07/09/2014 Unknown Pleurisy ICD-9: 511.0 ICD-10: R09.1 Active [...] E78.2 Active 07/09/2014 Unknown Rash and other nonsp ecific skin eruption ICD-9: 782.1 ICD-10: R21 Active 05/25/2015 Unknown Foot drop, left foot ICD-9: 736.79 ICD-10: M21.372 Active 04/08/2015 Unknown Sacroiliitis, not el sewhere classified ICD-9: 720.2 ICD-10: M46.1 Active 04/08/2015 Unknown Encounter for genera l adult medical examination without abnormal findings ICD-9: V70.0 ICD-10: Z00.00 Active 03/29/2015 Unknown Family history of ma lignant neoplasm [...] hypertension ICD-9: 401.9 ICD-10: I10 07/09/2014 Active Pleurisy ICD-9: 511.0 ICD-10: R09.1 08/08/2016 [...] ICD-10: E78.2 07/09/2014 Active Rash and other nonsp ecific skin eruption ICD-9: 782.1 ICD-10: R21 05/25/2015 Active Foot drop, left foot ICD-9: 736.79 ICD-10: M21.372 04/08/2015 Active Sacroiliitis, not el sewhere classified ICD-9: 720.2 ICD-10: M46.1 04/08/2015 Active Encounter for genera l adult medical examination without abnormal findings ICD-9: V70.0 ICD-10: Z00.00 03/29/2015 Active Family history of ma lignant neoplasm [...] Date Stop Date Sta tus Fill Instructions amlodipine 5 mg tablet RxNorm: 528972 TAKE ONE TABLET BY MOUTH EVERY DAY 08/15/2016 05/11/2017 Ac tive Generic For:NORVASC 5 MG TABLET 017 3:56:26 PM N O T I C E Last quantity doesn't match original quantity Kenalog 40 mg/mL [place] pension for injection RxNorm: 1327967 1 Milliliter(s) Inj 08/08/2016 08/08/2016 In active prednisone 10 mg tab lets in a dose pack RxNorm: 171780 1 Tablet(s) PO UD 08/08/2016 08/07/2016 In active prednisone 10 mg tab lets in a dose pack RxNorm: 547985 1 Tablet(s) PO UD 08/08/2016 08/13/2016 In active 6-5-4-3-2-1 Diflucan 150 mg tablet RxNorm: 016949 1 Tablet(s) PO daily 06/27/2016 07/10/2016 Inactive Synthroid 75 mcg tablet RxNorm: 757701 TAKE 1 TABLET BY MOUTH DAILY 06/16/2016 01/11/2017 Active Generic For:*SYNTHROID 0.075MG TAB pt wo uld like a 90 day supply N O T I C E Last quantity doesn't match original quantity hydrocodone 7.5 mg-a cetaminophen 325 mg tablet RxNorm: 665535 1-2 Tablet(s) PO Q4H as needed 06/06/2016 No Stop Date Active citalopram 20 mg tablet RxNorm: 895499 TAKE ONE (1) TABLET BY MOUTH DAILY 05/18/2016 11/13/2016 Ac tive Generic For:CELEXA 20MG TAB 05/17/2016 8:32:02 AM Celebrex 200 mg capsule RxNorm: 601333 1 Capsule(s) PO daily 05/17/2016 05/11/2017 Active losartan 100 mg tablet RxNorm: 847871 TAKE 1 TABLET BY MOUTH DAILY 05/17/2016 11/12/2016 Active Generic For:COZAAR 100MG TAB 05/17/2016 8:31:51 AM amlodipine 5 mg tablet RxNorm: 904612 1 Tablet(s) PO daily 05/10/2016 08/14/2016 Inactive Cipro 500 mg tablet RxNorm: 934972 1 Tablet(s) PO BID 05/04/2016 05/03/2016 Inactive Cipro 500 mg tablet RxNorm: 747570 1 Tablet(s) PO BID 05/04/2016 05/13/2016 Inactive Diflucan 150 mg tablet RxNorm: 819459 1 Tablet(s) PO daily 04/18/2016 05/01/2016 Inactive Monistat Soothing Ca re 1.2 % topical gel RxNorm: 1728382 1 Application TOP BI D 03/07/2016 No Stop Date Active Diflucan 150 mg tablet RxNorm: 753446 1 Tablet(s) PO daily 03/07/2016 03/13/2016 Inactive Lipitor 40 mg tablet RxNorm: 166930 Tablet(s) TAKE ONE TABLET BY MOUTH AT BE DTIME 02/23/2016 02/16/2017 Ac tive citalopram 20 mg tablet RxNorm: 118276 TAKE ONE (1) TABLET BY MOUTH DAILY 02/18/2016 05/17/2016 In active Generic For:CELEXA 20MG TAB refill reque st losartan 100 mg tablet RxNorm: 200738 Tablet(s) 1 Tablet, 1 time per Day 02/09/2016 05/16/2016 In active INSURANCE WILL NOT COVER ADELA ANDREWS UNTIL OTHER FORMULARIES HAVE BEEN TRIED AND FAILED hydrocodone 7.5 mg-a cetaminophen 325 mg tablet RxNorm: 340434 1-2 Tablet(s) PO Q4H as needed 02/03/2016 06/05/2016 Inactive Synthroid 75 mcg tablet RxNorm: 723318 Tablet(s) TAKE 1 TABLET BY MOUTH DAILY 01/19/2016 06/15/2016 In active Generic For:*SYNTHROID 0.075MG TAB 08/0 04/2014 10:00:02 AM N O T I C E PRESCRIPTION PREVIOUSLY AUTHORIZED BY DOCTOR:SWATI BEY prednisone 10 mg tab lets in a dose pack RxNorm: 855045 1 Tablet(s) PO UD 01/07/2016 02/22/2016 In active 6-5-4-3-2-1 amlodipine 10 mg tablet RxNorm: 392503 1 Tablet(s) PO daily 12/07/2015 11/30/2016 Active citalopram 20 mg tablet RxNorm: 456243 TAKE ONE (1) TABLET BY MOUTH DAILY 11/17/2015 02/14/2016 In active Generic For:CELEXA 20MG TAB refill reque st hydrocodone 7.5 mg-a cetaminophen 325 mg tablet RxNorm: 758655 1-2 Tablet(s) PO Q4H as needed 10/08/2015 02/02/2016 Inactive losartan 100 mg tablet RxNorm: 767230 Tablet(s) 1 Tablet, 1 time per Day 2015 02/07/2016 In active INSURANCE WILL NOT COVER ADELA ANDREWS UNTIL OTHER FORMULARIES HAVE BEEN TRIED AND FAILED citalopram 20 mg tablet RxNorm: 419136 TAKE ONE (1) TABLET BY MOUTH DAILY 08/10/2015 11/07/2015 In active Generic For:CELEXA 20MG TAB 08/10/2015 8:59:58 AM Synthroid 75 mcg tablet RxNorm: 444407 Tablet(s) TAKE 1 TABLET BY MOUTH DAILY 05/26/2015 12/21/2015 In active Generic For:*SYNTHROID 0.075MG TAB 04/2014 10:00:02 AM N O T I C E PRESCRIPTION PREVIOUSLY AUTHORIZED BY DOCTOR:SWATI BEY prednisone 20 mg tablet RxNorm: 558813 2 Tablet(s) PO daily 05/26/2015 05/30/2015 Inactive Lipitor 40 mg tablet RxNorm: 842117 TAKE ONE TABLET BY MOUTH AT BEDTIME 05/14/2015 02/07/2016 In active Generic For:LIPITOR 40MG TAB 05/13/2015 8:26:33 AM N O T I C E PRESCRIPTION PREVIOUSLY AUTHORIZED BY DOCTOR:SWATI BEY hydrocodone 7.5 mg-a cetaminophen 325 mg tablet RxNorm: 179466 1-2 Tablet(s) PO Q4H as needed 05/11/2015 10/07/2015 Inactive Celebrex 200 mg capsule RxNorm: 097405 1 Capsule(s) PO daily 05/07/2015 04/30/2016 Inactive citalopram 20 mg tablet RxNorm: 708929 TAKE ONE (1) TABLET BY MOUTH DAILY 04/27/2015 07/25/2015 In active Generic For:CELEXA 20MG TAB 04/26/2015 7:30:08 PM gabapentin 300 mg ca psule RxNorm: 818614 1 Capsule(s) PO QID 04/09/2015 04/02/2016 Inactive citalopram 20 mg tablet RxNorm: 920453 TAKE ONE (1) TABLET BY MOUTH DAILY 01/26/2015 04/25/2015 In active Generic For:CELEXA 20MG TAB 01/26/2015 8:40:11 AM losartan 100 mg tablet RxNorm: 092705 1 Tablet, 1 time per Day 01/26/2015 03/29/2015 Inactive INSURANCE WILL NOT COVER ADELA ANDREWS UNTIL OTHER FORMULARIES HAVE BEEN TRIED AND FAILED hydrocodone 7.5 mg-a cetaminophen 325 mg tablet RxNorm: 765975 1-2 Tablet(s) PO Q4H as needed 01/23/2015 05/10/2015 Inactive Neurontin 100 mg cap almaz RxNorm: 024810 1 Capsule(s) PO TID 01/14/2015 03/09/2015 Inactive Neurontin 100 mg cap almaz RxNorm: 630220 1 Capsule(s) PO TID 01/14/2015 01/13/2015 Inactive Keflex 500 mg capsule RxNorm: 905156 1 Capsule(s) PO TID 01/06/2015 01/05/2015 Inactive Keflex 500 mg capsule RxNorm: 086393 1 Capsule(s) PO TID 01/06/2015 01/12/2015 Inactive hydrocodone 7.5 mg-a cetaminophen 325 mg tablet RxNorm: 965020 1-2 Tablet(s) PO Q4H as needed 12/29/2014 01/22/2015 Inactive Duexis 800 mg-26.6 m g tablet RxNorm: 5246019 1 Tablet(s) PO TID a s needed 12/19/2014 03/29/2015 In active Duexis 800 mg-26.6 m g tablet RxNorm: 2869065 1 Tablet(s) PO TID a s needed 12/19/2014 12/18/2014 In active Kenalog 40 mg/mL [place] pension for injection RxNorm: 9711612 1 Milliliter(s) Inj 12/09/2014 12/09/2014 In active prednisone 10 mg tab lets in a dose pack RxNorm: 493038 1 Tablet(s) PO UD 12/09/2014 12/14/2014 In active 6-5-4-3-2-1 amlodipine 10 mg tablet RxNorm: 380204 1 Tablet(s) PO daily 11/13/2014 11/07/2015 Inactive citalopram 20 mg tablet RxNorm: 897063 TAKE ONE (1) TABLET BY MOUTH DAILY 10/23/2014 01/20/2015 In active Generic For:CELEXA 20MG TAB 10/23/2014 4:32:02 PM N O T I C E PRESCRIPTION PREVIOUSLY AUTHORIZED BY DOCTOR:SWATI BEY hydrocodone 7.5 mg-a cetaminophen 325 mg tablet RxNorm: 995430 1-2 Tablet(s) PO Q4H as needed 10/22/2014 12/28/2014 Inactive Synthroid 75 mcg tablet RxNorm: 594883 TAKE 1 TABLET BY MOUTH DAILY 09/22/2014 04/19/2015 Inactive Generic For:*SYNTHROID 0.075MG TAB 04/2014 10:00:02 AM N O T I C E PRESCRIPTION PREVIOUSLY AUTHORIZED BY DOCTOR:SWATI BEY amlodipine 5 mg tablet RxNorm: 706151 1 Tablet(s) PO daily 08/25/2014 11/12/2014 Inactive Synthroid 75 mcg tablet RxNorm: 864500 1 Tablet(s) PO daily ecept a 1/2 tab on Monday07/11/2014 09/21/2014 Inactive Flonase Allergy Reli ef 50 mcg/actuation nasal spray,suspension RxNorm: 1 [place] NASAL BID 07/10/2014 12/06/2014 Inactive Benicar 20 mg tablet RxNorm: 551714 1 Tablet(s) PO daily No Start Date Active Remicade intravenous RxNorm: 225715 intravenous No Start Date Active Celebrex 200 mg capsule RxNorm: 463790 1 Capsule(s) PO daily No Start Date 05/06/2015 Inactive Arava 20 mg tablet RxNorm: 886864 1 Tablet(s) PO daily No Start Date Active methotrexate sodium 2.5 mg tablet RxNorm: 293531 3 Tablet(s) PO weekly No Start Date 04/08/2015 Inactive gabapentin 300 mg ca psule RxNorm: 376256 1 Capsule(s) PO TID No Start Date 04/08/2015 Inactive Plaquenil 200 mg tablet RxNorm: 525612 1 Tablet(s) PO BID No Start Date 05/22/2016 Inactive losartan 100 mg tablet RxNorm: 886730 1 Tablet(s) PO daily No Start Date 01/25/2015 Inactive amlodipine 5 mg tablet RxNorm: 747974 1 Tablet(s) PO daily No Start Date 08/24/2014 Inactive citalopram 20 mg tablet RxNorm: 626878 1 Tablet(s) PO daily No Start Date 10/22/2014 Inactive Synthroid 88 mcg tablet RxNorm: 538725 1 Tablet(s) PO daily No Start Date 07/09/2014 Inactive Lipitor 40 mg tablet RxNorm: 557518 1 Tablet(s) PO daily No Start Date 05/13/2015 Inactive Synthroid 75 mcg tablet RxNorm: 688939 1 Tablet(s) PO daily No Start Date 07/10/2014 Inactive hydrocodone 7.5 mg-a cetaminophen 325 mg tablet RxNorm: 978036 Tablet(s) PO as neede d No Start Date 10/21/2014 Inactive Medication Administered Medication Codes Instruc tions Start Date Status Kenalog 40 mg/mL suspension for injection RxNorm: 1507387 1Milliliter 08/08/2016 N o longer Active Kenalog 40 mg/mL suspension for injection RxNorm: 9151031 1Milliliter 12/09/2014 N o longer Active Immunizations No Immunization data Assessments Condition Codes Effectiv e Dates Pleurisy ICD-10: R09.1 ICD-9: 511.0 08/30/2016 Atrophy of thyroid (acquired) ICD-10 : E03.4 ICD-9: 244.8 08/30/2016 Essential (primary) hypertension ICD -10: I10 ICD-9: 401.9 08/30/2016 Other pruritus ICD-10: L29.8 ICD-9: 698.1 [...] 09/15/2015 Major depressive disorder, single episode, unspecified ICD-10: F32.9 ICD-9: 311 09/15/2015 Rash and other nonspecific skin eruption ICD-10: R21 ICD-9: 782.1 05/26/2015 Sacroiliitis, not elsewhere classified ICD-10: M46.1 ICD-9: 720.2 04/09/2015 Foot drop, left foot ICD-10: M21.372 ICD-9: 736.79 04/09/2015 Encounter for general adult medical exam ination [...] Reason For Visit Effective Dates Notes pleurisy 08/30/2016 pleurisy 08/08/2016 urinary urgency 06/27/2016 foot pain 05/23/2016 lef t great toe vaginal discharge 04/18/2016 pelvic pain 03/07/2016 hip pain 02/23/2016 hip pain 09/15/2015 rash 05/26/2015 sciatica 04/09/2015 Annual Medicare Wellness Exam 03/30/2015 sciatica 03/10/2015 sciatica 12/16/2014 sciatica 12/09/2014 blood pressure followup 11/13/2014 cough 07/10/2014 Results Observation Observation Code Item Item Code Result Date Urine Culture Ucult Comp lete NO Growth Day 2 06/29 Urine Culture Ucult Prel iminary NO Growth Day 1 06/29 Culture Urine [id number] URI NE CULTURE SEE NOTES 04/22/2016 Culture Urine [id number] Con tinued Results 04/22/2016 Urine Culture Ucult Comp lete >100,000 col/ml aerobic grow th sent to ref lab 04/20/2016 Comp Metabolic Pde639 NA 137 mEq/L 02/10/2016 Comp Metabolic Gga556 K 4.1 mEq/L 02/10/2016 Comp Metabolic Irx075 CL 102 mEq/L 02/10/2016 Comp Metabolic Zye899 CO2 28.0 mEq/L 02/10/2016 Comp Metabolic Sqt558 AN ION GAP 11 02/10/2016 Comp Metabolic Fcp227 GL UCOSE 104 mg/dL 02/10/2016 Comp Metabolic Qvl592 Cr eat 0.7 mg/dL 02/10/2016 Comp Metabolic Lge654 eG FR 83 ml/min/1.73m2 02/09 Comp Metabolic Lqr025 BUN 14 mg/dL 02/10/2016 Comp Metabolic Jeh132 B/ C Ratio 18.9 Ratio 02/10/2016 Comp Metabolic Ndk651 CA LCIUM 9.7 mg/dL 02/10/2016 Comp Metabolic Fmx193 AL K PHOS 121 U/L 02/10/2016 Comp Metabolic Ril072 T(SGOT) 19 U/L 02/10/2016 Comp Metabolic Ihh667 AL T(SGPT) 13 U/L 02/10/2016 Comp Metabolic Ntu830 BI LI T 0.5 mg/dL 02/10/2016 Comp Metabolic Lmb455 AL BUMIN 4.3 g/dL 02/10/2016 Comp Metabolic Gpr994 TP RO 6.8 g/dL 02/10/2016 Comp Metabolic Vbb803 GL OB 2.5 g/dL 02/10/2016 Comp Metabolic Wbn610 A/ G Ratio 1.7 Ratio 02/10/2016 Comp Metabolic Ujo927 Os mo 275 mOsmo 02/10/2016 Lipid Ord30 CHOL 229 mg/dL 02/10/2016 Lipid Ord30 HDL 59.0 mg/dl 02/10/2016 Lipid Ord30 TRIG 252 mg/dL 02/10/2016 Lipid Ord30 LDL 120 mg/dL 02/10/2016 Lipid Ord30 C/HDL 3.9 Ratio 02/10/2016 Free T4 Moq112 FREE T4 0.87 ng/dL 02/10/2016 Tsh Ord6 [...] 29.2 pg 02/10/2016 Cbc With Differential Ord2 [place]% 18.6 % 02/10/2016 Cbc With Differential Ord2 MCHC 31.9 pg 02/10/2016 Cbc With Differential Ord2 Eos% 2.4 % 02/10/2016 Cbc With Differential Ord2 Baso% 1.0 % 02/10/2016 Cbc With Differential Ord2 PLT 291 K/ul 02/10/2016 Cbc With Differential Ord2 Neut ABS# 2.75 K/ul 02/10/2016 Cbc With Differential Ord2 RDW 14.0 % 02/10/2016 Cbc With Differential Ord2 Lymph ABS# 1.81 K/ul 02/10/2016 Cbc With Differential Ord2 [place] ABS# 1.1 K/ul 02/10/2016 Cbc With Differential Ord2 Eos ABS# 0.1 K/ul 02/10/2016 Cbc With Differential Ord2 Baso ABS# 0.1 K/ul 02/10/2016 Tsh Ord6 hTSH II 0.85 uIU/mL 04/02/2015 Lipid Ord30 CHOL 207 mg/dL 04/02/2015 Lipid Ord30 HDL 68.0 mg/dl 04/02/2015 Lipid Ord30 TRIG 193 mg/dL 04/02/2015 Lipid Ord30 LDL 100 mg/dL 04/02/2015 Lipid Ord30 C/HDL 3.0 Ratio 04/02/2015 Free T4 Ytq216 FREE T4 1.09 ng/dL 04/02/2015 Free T4 Mco886 FREE T4 0.82 ng/dL 10/15/2014 Tsh Ord6 hTSH II 0.80 uIU/mL 10/15/2014 Review of Systems System Result Effective Dates Constitutional No recent illness 08/30/2016 Constitutional No [...] rate 06/27/2016 None Full Exam - Genitourinary/Female [facility] st/Breast breast inspection and palpation Overall: normal [...] None Procedures Procedure Codes Date TRIAMCINOLONE ACET I [place] NOS CPT-4: [id number] 08/08/2016 PRESCRIP TRANSMIT A ERX SY CPT-4: [id number] 08/08/2016 PRESCRIP TRANSMIT A ERX SY CPT-4: [id number] 04/18/2016 TRIAMCINOLONE ACET I [place] NOS CPT-4: S7811Wdkvvxn 05/26/2015 PRESCRIP TRANSMIT A ERX SY CPT-4: B4491Ffvaigv 05/26/2015 PRESCRIP TRANSMIT A ERX SY CPT-4: U2510Lscncjo 04/09/2015 INITIAL PREVENTIVE E XAM CPT-4: U9293Icdgmas 03/30/2015 TRIAMCINOLONE ACET I [place] NOS CPT-4: H1750Pbjfzfq 12/09/2014 PRESCRIP TRANSMIT A ERX SY CPT-4: O7018Xkiixnx 12/09/2014 PRESCRIP TRANSMIT A ERX SY CPT-4: H2182Ngesxvx 11/13/2014 Vital Signs Date Vital 08/30/2016 Blood Pressure 1: 142/88 Code: 8480-6 BMI: 31.6 Code: 04577-8 Heart Rate 1: 80 bpm Height: 5'4" SpO2: 93% Weight: 184 lbs 08/08/2016 Blood Pressure 1: 142/76 Code: 8480-6 BMI: 29.9 Code: 50981-5 Heart Rate 1: 80 bpm Height: 5'4" SpO2: 94% Weight: 174 lbs 06/27/2016 Blood Pressure 1: 156/72 Code: 8480-6 BMI: 30.6 Code: 78861-7 Heart Rate 1: 78 bpm Height: 5'4" SpO2: 95% Weight: 178 lbs 05/23/2016 Blood Pressure 1: 146/84 Code: 8480-6 Heart Rate 1: 66 bpm Height: 5'4" SpO2: 94% 04/18/2016 Blood Pressure 1: 148/84 Code: 8480-6 BMI: 30.2 Code: 67174-0 Heart Rate 1: 81 bpm Height: 5'4" SpO2: 97% Weight: 176 lbs 03/07/2016 Blood Pressure 1: 130/78 Code: 8480-6 BMI: 30.0 Code: 79747-4 Heart Rate 1: 85 bpm Height: 5'4" SpO2: 96% Weight: 175 lbs 02/23/2016 Blood Pressure 1: 140/78 Code: 8480-6 BMI: 29.7 Code: 57073-6 Heart Rate 1: 74 bpm Height: 5'4" SpO2: 95% Weight: 173 lbs 09/15/2015 Blood Pressure 1: 140/88 Code: 8480-6 BMI: 29.4 Code: 69455-3 Heart Rate 1: 81 bpm Height: 5'4" SpO2: 97% Weight: 171 lbs 8 oz 05/26/2015 Blood Pressure 1: 150/80 Code: 8480-6 BMI: 31.6 Code: 68559-7 Heart Rate 1: 70 bpm Height: 5'4" SpO2: 96% Weight: 184 lbs 04/09/2015 Blood Pressure 1: 136/74 Code: 8480-6 BMI: 31.4 Code: 52693-4 Heart Rate 1: 91 bpm Height: 5'4" SpO2: 94% Weight: 183 lbs 03/30/2015 Blood Pressure 1: 130/72 Code: 8480-6 BMI: 30.9 Code: 46032-7 Heart Rate 1: 80 bpm Height: 5'4" SpO2: 97% Waist Measure (cm): 102 cm Weight: 180 lbs 03/10/2015 Blood Pressure 1: 152/80 Code: 8480-6 BMI: 31.1 Code: 37656-2 Heart Rate 1: 66 bpm Height: 5'4" SpO2: 98% Weight: 181 lbs 12/16/2014 Blood Pressure 1: 132/88 Code: 8480-6 Blood Pressure 1: 132/88 Code: 8480-6 Heart Rate 1: 88 bpm SpO2: 98% Weight: 183 lbs 12/09/2014 Blood Pressure 1: 140/82 Code: 8480-6 BMI: 31.2 Code: 77640-3 Heart Rate 1: 105 bpm Height: 5'4" SpO2: 93% Weight: 182 lbs 11/13/2014 Blood Pressure 1: 148/88 Code: 8480-6 BMI: 31.8 Code: 83722-5 Heart Rate 1: 54 bpm Height: 5'4" SpO2: 98% Weight: 185 lbs 07/10/2014 Blood Pressure 1: 144/96 Code: 8480-6 BMI: 31.4 Code: 15880-9 Heart Rate 1: 99 bpm Height: 5'4" SpO2: 98% Temperature: 36.8 (C ) / 98.2 (F) Weight: 183 lbs Functional Status No Functional Status data History of Present Illness Symptom Name Status Resu lt Effective Date Notes pleurisy Onset of Symptom [...] Encounters Encounter Performer Loca tion Codes Date [id number] EST. P ATIENT, LEVEL IV Diagnosis: Atrophy of thyroid (acquired)[ICD10: E03.4] Diagnosis: Pleurisy[ICD10: R09.1] Diagnosis: Essential (primary) hypertension[ICD10: I10] Shannon Falk MD, [facility] CPT-4: 90693 08/30/2016 ([id number]) 68089 EST. P ATIENT, LEVEL III Diagnosis: Pleurisy[ICD10: R09.1] Elizabet Falk MD, [facility] CPT-4: 06365 08/08/2016 00449 EST. PATIENT, LEVEL III Diagnosis: Dysuria[ICD10: R30.0] Diagnosis: Other pruritus[ICD10: L29.8] Shila Falk MD, [facility] CPT-4: 02353 06/27/2016 ([id number]) 90503 EST. P ATIENT, LEVEL III Diagnosis: Pain in left foot[ICD10: M79.672] Diagnosis: Pain in left toe(s)[ICD10: M79.675] Elizabet Falk MD, [facility] CPT-4: 32682 05/23/2016 23393 EST. PATIENT, LEVEL III Diagnosis: Candidiasis of vulva and vagina[ICD10: B37.3] Diagnosis: Dysuria[ICD10: R30.0] Shila Falk MD, [facility] CPT-4: 89300 04/18/2016 20819 EST. PATIENT, LEVEL III Diagnosis: Other pruritus[ICD10: L29.8] Diagnosis: Candidiasis of vulva and vagina[ICD10: B37.3] Shila Falk MD, [facility] CPT-4: 42233 03/07/2016 ([id number]) 36070 EST. P ATIENT, LEVEL IV Diagnosis: Essential (primary) hypertension[ICD10: I10] Diagnosis: Pain in left hip[ICD10: M25.552] Diagnosis: Pain in right hip[ICD10: M25.551] Diagnosis: Functional diarrhea[ICD10: K59.1] Diagnosis: Atrophy of thyroid (acquired)[ICD10: E03.4] Shannon Falk MD, [facility] CPT-4: 40804 02/23/2016 ([id number]) 13668 EST. P ATIENT, LEVEL IV Diagnosis: Essential (primary) hypertension[ICD10: I10] Diagnosis: Mixed hyperlipidemia[ICD10: E78.2] Diagnosis: Major depressive disorder, single episode, unspecified[ICD10: F32.9] Shannon Falk MD, [facility] CPT-4: 45227 09/15/2015 36648 EST. PATIENT, LEVEL III Diagnosis: Rash and other nonspecific skin eruption[ICD10: R21] Shila Falk MD, [facility] CPT-4: 39074 05/26/2015 ([id number]) 01653 EST. P ATIENT, LEVEL IV Diagnosis: Essential (primary) hypertension[ICD10: I10] Diagnosis: Foot drop, left foot[ICD10: M21.372] Diagnosis: Sacroiliitis, not elsewhere classified[ICD10: M46.1] Shannon Falk MD, [facility] CPT-4: 80509 04/09/2015 ([id number]) 74006 EST. 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 P ATIENT, LEVEL III Diagnosis: Trochanteric bursitis, left hip[ICD10: M70.62] Diagnosis: Iliotibial band syndrome, left leg[ICD10: M76.32] Diagnosis: Sciatica, left side[ICD10: M54.32] Elizabet Falk MD, [facility] CPT-4: 78819 12/16/2014 ([id number]) 99375 EST. P ATIENT, LEVEL III Diagnosis: Sciatica, left side[ICD10: M54.32] Diagnosis: Sacroiliitis, not elsewhere classified[ICD10: M46.1] Elizabet Falk MD, [facility] CPT-4: 87765 12/09/2014 ([id number]) 99698 EST. 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 Pt has been encouraged to exercise daily.The pt has been advised to call the office if there are any acute concerns about change in blood pressure readings at home.Hypothyroidism - pt with chronic hypothyroidism, continue with current medication, will monitor pt to signs or symptoms of lack of adequate supplementation. Pt is to continue with current dose of medication unless directed otherwise. Check labs at regular intervals wither q 3 months or q 6 months based on previous levels of control.Pleurisy - continue with supportive care. 08/30/2016 Patient Education: Patient Medication Summary Completed 08/30/2016 Patient Education: Obesity Completed 08/30/2016 Patient Education: Hypertension Completed 08/30/2016 Visit Plan: Pleurisy-discussed natural a nd expected course of this diagnosis and to alert me if symptoms do not follow expected course, or if any worse. Kenalog injection today in the office-start prednisone tomorrow. Patient verbalized understanding of plan. 08/08/2016 Appointment: Elizabet Donaldson WPtel: [address] [place] [address] (30 min) Complex 08/08/2016 Patient Education: Patient Medication Summary Completed 08/08/2016 Referral: Delia Bernstein WPtel: [address] [place], [place] [id number] Referral Initiated 08/01/2016 Visit Plan: Vaginal yeast infection - Di scussed natural and expected course of this diagnosis and need to alert me if symptoms do not follow expected course, or if any worse. RX sent to patient's pharmacy.Discussed pelvic exam with the pt due to recurrent symptoms - Pt would like to be referred to Dr. Bernstein for her recurrent symptoms - will refer. 06/27/2016 Appointment: Shila Deluna WPtel: [id number] (30 min) Complex 06/27/2016 Patient Education: Patient Medication Summary Completed 06/27/2016 Care Plan: Referral Order SNOMED-CT : [id number] Pending 06/27/2016 Visit Plan: Left foot, 1st and 2nd toe p ain-suspect fracture of left great toe- will obtain xrays and proceed as indicated. Patient verbalized understanding of plan. 05/23/2016 Appointment: Elizabet Donaldson WPtel: [facility] [phone] [place] (15 min) Moderate 05/23/2016 Patient Education: Patient Medication Summary Completed 05/23/2016 Visit Plan: Vaginal yeast infection - Di scussed natural and expected course of this diagnosis and need to alert me if symptoms do not follow expected course, or if any worse. RX sent to patient's pharmacy.Discussed pelvic exam with the pt due to recurrent symptoms - pt declines pelvic today but states that if her symptoms persist or if they return she will come in for a pelvic exam. 2016 Patient Education: Patient Medication Summary Completed 04/18/2016 Visit Plan: Vaginal yeast infection - Di scussed natural and expected course of this diagnosis and need to alert me if symptoms do not follow expected course, or if any worse. RX sent to patient's pharmacy. 03/07/2016 Patient Education: Patient Medication Summary Completed 03/07/2016 Visit Plan: Hypertension - well controll ed - continue with current medications, continue with no added salt diet. Pt has been encouraged to exercise daily.The pt has been advised to call the office if there are any acute concerns about change in blood pressure readings at home.Hypothyroidism - pt with chronic hypothyroidism, continue with current medication, will monitor pt to signs or symptoms of lack of adequate supplementation. Pt is to continue with current dose of medication unless directed otherwise. Check labs at regular intervals wither q 3 months or q 6 months based on previous levels of control.Diarrhea - functional - start probiotics 02/23/2016 Appointment: Shannon Falk WPtel: [facility] [id number] [place] (15 min) Moderate 02/23/2016 Patient Education: Patient Medication Summary Completed 02/23/2016 Patient Education: Hypertension Completed 02/23/2016 Visit Plan: Hypertension - well controll ed - continue with current medications, continue with no added salt diet. Pt has been encouraged to exercise daily.The pt has been advised to call the office if there are any acute concerns about change in blood pressure readings at home.Hyperlipidemia - pt has been counseled about appropriate [...] and to assure normal liver response to medications.Depression - on citalopram - stable symptoms - no change in dose of citalopram at this time. 09/15/2015 Patient Education: Patient Medication Summary Completed 09/15/2015 Appointment: Shannon Falk WPtel: [facility] [id number] (15 min) Moderate 07/29/2015 Visit Plan: Rash - pt has an erythematou s macular rash on her legs, arms, and [...] if they worsen, or with any concerns. 2015 Visit Plan: Rash - pt has an erythematou s macular rash on her legs, arms, and [...] if they worsen, or with any concerns. 2015 Appointment: (15 min) Moderate 05/26/2015 Patient Education: Patient Medication Summary Completed 05/26/2015 Patient Education: Obesity Completed 05/26/2015 Visit Plan: Hypertension - well controll ed - continue with current medications, continue with no added salt diet. Pt has been encouraged to exercise daily.The pt has been advised to call the office if there are any acute concerns about change in blood pressure readings at home.Peripheral Neuropathy - recommended pt to start on higher doses of Neurontin - vitamin B12 liquid 2000mcg daily - [facility] sells the liquid b12, folic acid - take daily.metanex 1 capsule twice daily - call office if this seems to help decrease nerve painincrease the night-time dosing of gabapentin to 300mg in AM, Noon, 6pm and 10pm 04/09/2015 Appointment: Shannon Falk WPtel: [phone] [id number] (15 min) Moderate 04/09/2015 Patient Education: Patient Medication Summary Completed 04/09/2015 Patient Education: Hypertension Completed 04/09/2015 Visit Plan: Welcome to Medicare Exam - t yossi we discussed the patients past history, immunizations, [...] Referral Completed 03/16/2015 Visit Plan: Lumbar degenerative arthriti s - RX for physical therapy - pt to sign release of information for the office to receive information about her MRI.Foot drop - therapy ordered for the patient - they are to attempt strengthening and pt to possibly have foot drop brace.Order for colonoscopy for pt to be seen by Dr. Spann - pt had 2012 colonoscopy with hyperplastic polyps, Maria Ines recommended repeat scope in 2012. 03/10/2015 Appointment: Shannon Falk WPtel[facility] [address] [id number] (15 min) Moderate 03/10/2015 Patient Education: Patient Medication Summary Completed 03/10/2015 Care Plan: SCREENINGMAMMOGRAPHYDIGITAL LOINC : 67956-5 Ordered 03/10/2015 Care Plan: Referral Order SNOMED-CT : [id number] Ordered 03/10/2015 Care Plan: Referral Order SNOMED-CT : [id number] Ordered 03/10/2015 Visit Plan: Left hip bursitis/Iliotibial [...] Medication Summary Completed 12/16/2014 Patient Education: .[employer] lliot ibial Band Rehabilitation exercises Completed 12/16/2014 Patient Education: .[employer]uroSave Exercise for [place] Completed 12/16/2014 Care Plan: Referral Order SNOMED-CT : [id number] Ordered 12/16/2014 Visit Plan: Sacroiliitis - back exercise s discussed with the patient, pt to continue [...] Patient Medication Summary Completed 12/09/2014 Patient Education: .NeuroSave Exercise for [place] Completed 12/09/2014 Visit Plan: Hypertension - uncontrolled [...] the office next week for practitioner to review.The pt is to call for acute concerns.increase norvasc to 10mg daily.Carpal tunnel syndrome - pt to use carpal tunnel brace. 11/13/2014 Appointment: Shannon Falk WPtel: [address] [place], [place] [id number] Follow up 11/13/2014 Patient Education: Patient Medication Summary Completed 11/13/2014 Patient Education: Hypertension Completed 11/13/2014 Visit Plan: Hypertension - well controll ed - continue with current medications, continue with no added salt diet. Pt has been encouraged to exercise daily.The pt has been advised to call the office if there are any acute concerns about change in blood pressure readings at home.Allergies - chronic - recommended pt to use allergy medication as prescribed. Pt has been counseled as to the appropriate use of the medication. Pt to call if allergy symptoms are not controlled with the medication.If using nasal spray, instructions as follows: Nasal spray- use twice daily, one spray per nostril twice daily, after 30 minutes, rinse out nose with saline spray.. Use opposite hand per nostril to spray in the nasal steroid allergy spray.Diarrhea - recommended bland diet, low fat diet, start on probiotic, and rehydrate with gatorade-like product. Pt to call if feeling worse, diarrhea becomes bloody, or does not improve with above recommendations. Pt to call for acute worsening of stomach upset or stomach pain.ALIGN PROBIOTIC - TAKE DAILY ([employer] OR [employer] -TWO OTHER PROBIOTICS THAT ARE HIGH QUALITY)CIPROFLOXACIN TO BE TAKEN IF NEEDED IF THE DIARRHEA DOES NOT IMPROVE OR IF IT WORSENS. 07/10/2014 Appointment: Shannon Falk WPtel: [facility] [place] [place] ([place]) New Patient 07/10/2014 Patient Education: Patient Medication Summary Completed 07/10/2014 Patient Education: Hypertension Completed 07/10/2014 Referral: Darci Spann Referral Relationship Referral: External, Ordering Provider Referral Appointment Requested Referral: Delia Bernstein WPtel: [address] [place], [place] [id number] Referral Initiated Referral: External, Ordering Provider Referral Completed Instructions Comment . Vaginal yeast infe ction - Discussed [...] repeat scope in 2012. Nasal spray- use twi ce daily, one spray per nostril twice daily, after 30 minutes, rinse out nose with saline spray.. Use opposite hand per nostril to spray in the nasal steroid allergy spray. ALIGN PROBIOTIC - TAKE DAILY ([employer] OR [employer] -TWO OTHER PROBIOTICS THAT ARE HIGH [...] stomach pain. ALIGN PROBIOTIC - TAKE DAILY ([employer] OR [employer] -TWO OTHER PROBIOTICS THAT ARE HIGH QUALITY) [...] or with any concerns. . Hypertension - wel l controlled - [...] functional - start probiotics . Welcome to Medicar e Exam - [...] verbalized understanding of plan. vitamin B12 liquid 2 000mcg daily - [facility] sells the liquid b12 folic acid - [...] - vitamin B12 liquid 2000mcg daily - [facility] sells the liquid b12, folic acid - take daily. metanex 1 capsule twice daily - call office if this seems to help decrease nerve pain increase the night-time dosing of gabapentin to 300mg in AM, Noon, 6pm and 10pm . Hypertension - wel l controlled - [...]
--- OUTSIDE RECORDS SUMMARY | 2019-06-07 16:27 | XMS REPORT | CCD ---
Author Author Dalila Falk Organization [facility] Address [address] [place] [address] Phone Care Team Providers Care Pot Liner Name Role Phone PP Unavailable CCM Unavailable Summary Purpose Interface Exchange Insurance Providers Payer name Policy type / Coverage type Covered republican ID Effective Begin Date Effective End Date WPS Medicare Part B Medicare Part B [id number] Unknown [place] Usp Life Insurance M edicare Part B [id number] Unkn own Family history Brother Diagnosis Age [...] Unknown 2 07/10/[address]: 700128722 Has never smoked or chewed tobacco 07/10/2014 Alcohol history Unknown occasionally drinks alcohol 07/10/2014 Allergies, Adverse Reactions, Alerts Allergies, Adverse Reactions, Alerts data not found Past Medical History Illness Codes Condition Status Onset Date Resolved Date Pleurisy ICD-9: 511.0 ICD-10: R09.1 Active 08/08/2016 Unknown Dysuria ICD-9: 788.1 ICD-10: R30.0 Active 04/18/2016 Unknown Other pruritus ICD-9: 698.1 ICD-10: L29.8 Active 03/06/2016 Unknown Pain in left foot ICD-9: 729.5 ICD-10: M79.672 Active 05/23/2016 Unknown Pain in left toe(s) ICD- 9: 729.5 ICD-10: M79.675 Active 05/23/2016 Unknown Candidiasis of vulva and vagina ICD-9: 112.1 ICD-10: B37.3 Active 03/06/2016 Unknown Atrophy of thyroid ( acquired) ICD-9: 244.8 ICD-10: E03.4 Active 02/23/2016 Unknown Essential (primary) hypertension ICD-9: 401.9 ICD-10: I10 Active 07/09/2014 Unknown Functional diarrhea ICD- 9: 564.5 ICD-10: [...] Condition Codes Effectiv e Dates Condition Status Pleurisy ICD-9: 511.0 ICD-10: R09.1 08/08/2016 Active Dysuria ICD-9: 788.1 ICD-10: R30.0 04/18/2016 Active Other pruritus ICD-9: 698.1 ICD-10: L29.8 03/06/2016 Active Pain in left foot ICD-9: 729.5 ICD-10: M79.672 05/23/2016 Active Pain in left toe(s) ICD- 9: 729.5 ICD-10: M79.675 05/23/2016 Active Candidiasis of vulva and vagina ICD-9: 112.1 ICD-10: B37.3 03/06/2016 Active Atrophy of thyroid ( acquired) ICD-9: 244.8 ICD-10: E03.4 02/23/2016 Active Essential (primary) hypertension ICD-9: 401.9 ICD-10: I10 07/09/2014 Active Functional diarrhea ICD- 9: 564.5 ICD-10: [...] Fill Instructions amlodipine 5 mg tablet RxNorm: 489262 TAKE ONE TABLET BY MOUTH EVERY DAY 08/15/2016 05/11/2017 Ac tive Generic For:NORVASC 5 MG TABLET 017 3:56:26 PM N O T I C E Last quantity doesn't match original quantity Kenalog 40 mg/mL [place] pension for injection RxNorm: 6400293 1 Milliliter(s) Inj 08/08/2016 08/08/2016 In active prednisone 10 mg tab lets in a dose pack RxNorm: 152049 1 Tablet(s) PO UD 08/08/2016 08/07/2016 In active prednisone 10 mg tab lets in a dose pack RxNorm: 184820 1 Tablet(s) PO UD 08/08/2016 08/13/2016 In active 6-5-4-3-2-1 Diflucan 150 mg tablet RxNorm: 494663 1 Tablet(s) PO daily 06/27/2016 07/10/2016 Inactive Synthroid 75 mcg tablet RxNorm: 933182 TAKE 1 TABLET BY MOUTH DAILY 06/16/2016 01/11/2017 Active Generic For:*SYNTHROID 0.075MG TAB pt wo uld like a 90 day supply N O T I C E Last quantity doesn't match original quantity hydrocodone 7.5 mg-a cetaminophen 325 mg tablet RxNorm: 302421 1-2 Tablet(s) PO Q4H as needed 06/06/2016 No Stop Date Active citalopram 20 mg tablet RxNorm: 132069 TAKE ONE (1) TABLET BY MOUTH DAILY 05/18/2016 11/13/2016 Ac tive Generic For:CELEXA 20MG TAB 05/17/2016 8:32:02 AM Celebrex 200 mg capsule RxNorm: 869140 1 Capsule(s) PO daily 05/17/2016 05/11/2017 Active losartan 100 mg tablet RxNorm: 033410 TAKE 1 TABLET BY MOUTH DAILY 05/17/2016 11/12/2016 Active Generic For:COZAAR 100MG TAB 05/17/2016 8:31:51 AM amlodipine 5 mg tablet RxNorm: 723705 1 Tablet(s) PO daily 05/10/2016 08/14/2016 Inactive Cipro 500 mg tablet RxNorm: 192688 1 Tablet(s) PO BID 05/04/2016 05/03/2016 Inactive Cipro 500 mg tablet RxNorm: 390181 1 Tablet(s) PO BID 05/04/2016 05/13/2016 Inactive Diflucan 150 mg tablet RxNorm: 946942 1 Tablet(s) PO daily 04/18/2016 05/01/2016 Inactive Monistat Soothing Ca re 1.2 % topical gel RxNorm: 6650893 1 Application TOP BI D 03/07/2016 No Stop Date Active Diflucan 150 mg tablet RxNorm: 689711 1 Tablet(s) PO daily 03/07/2016 03/13/2016 Inactive Lipitor 40 mg tablet RxNorm: 288332 Tablet(s) TAKE ONE TABLET BY MOUTH AT BE DTIME 02/23/2016 02/16/2017 Ac tive citalopram 20 mg tablet RxNorm: 910858 TAKE ONE (1) TABLET BY MOUTH DAILY 02/18/2016 05/17/2016 In active Generic For:CELEXA 20MG TAB refill reque st losartan 100 mg tablet RxNorm: 141518 Tablet(s) 1 Tablet, 1 time per Day 02/09/2016 05/16/2016 In active INSURANCE WILL NOT COVER ADELA ANDREWS UNTIL OTHER FORMULARIES HAVE BEEN TRIED AND FAILED hydrocodone 7.5 mg-a cetaminophen 325 mg tablet RxNorm: 045836 1-2 Tablet(s) PO Q4H as needed 02/03/2016 06/05/2016 Inactive Synthroid 75 mcg tablet RxNorm: 270281 Tablet(s) TAKE 1 TABLET BY MOUTH DAILY 01/19/2016 06/15/2016 In active Generic For:*SYNTHROID 0.075MG TAB 08/0 04/2014 10:00:02 AM N O T I C E PRESCRIPTION PREVIOUSLY AUTHORIZED BY DOCTOR:SWATI BEY prednisone 10 mg tab lets in a dose pack RxNorm: 471221 1 Tablet(s) PO UD 01/07/2016 02/22/2016 In active 6-5-4-3-2-1 amlodipine 10 mg tablet RxNorm: 118924 1 Tablet(s) PO daily 12/07/2015 11/30/2016 Active citalopram 20 mg tablet RxNorm: 134785 TAKE ONE (1) TABLET BY MOUTH DAILY 11/17/2015 02/14/2016 In active Generic For:CELEXA 20MG TAB refill reque st hydrocodone 7.5 mg-a cetaminophen 325 mg tablet RxNorm: 079869 1-2 Tablet(s) PO Q4H as needed 10/08/2015 02/02/2016 Inactive losartan 100 mg tablet RxNorm: 954221 Tablet(s) 1 Tablet, 1 time per Day 2015 02/07/2016 In active INSURANCE WILL NOT COVER ADELA ANDREWS UNTIL OTHER FORMULARIES HAVE BEEN TRIED AND FAILED citalopram 20 mg tablet RxNorm: 567052 TAKE ONE (1) TABLET BY MOUTH DAILY 08/10/2015 11/07/2015 In active Generic For:CELEXA 20MG TAB 08/10/2015 8:59:58 AM Synthroid 75 mcg tablet RxNorm: 907024 Tablet(s) TAKE 1 TABLET BY MOUTH DAILY 05/26/2015 12/21/2015 In active Generic For:*SYNTHROID 0.075MG TAB 04/2014 10:00:02 AM N O T I C E PRESCRIPTION PREVIOUSLY AUTHORIZED BY DOCTOR:SWATI BEY prednisone 20 mg tablet RxNorm: 291804 2 Tablet(s) PO daily 05/26/2015 05/30/2015 Inactive Lipitor 40 mg tablet RxNorm: 411129 TAKE ONE TABLET BY MOUTH AT BEDTIME 05/14/2015 02/07/2016 In active Generic For:LIPITOR 40MG TAB 05/13/2015 8:26:33 AM N O T I C E PRESCRIPTION PREVIOUSLY AUTHORIZED BY DOCTOR:SWATI BEY hydrocodone 7.5 mg-a cetaminophen 325 mg tablet RxNorm: 876670 1-2 Tablet(s) PO Q4H as needed 05/11/2015 10/07/2015 Inactive Celebrex 200 mg capsule RxNorm: 852038 1 Capsule(s) PO daily 05/07/2015 04/30/2016 Inactive citalopram 20 mg tablet RxNorm: 795518 TAKE ONE (1) TABLET BY MOUTH DAILY 04/27/2015 07/25/2015 In active Generic For:CELEXA 20MG TAB 04/26/2015 7:30:08 PM gabapentin 300 mg ca psule RxNorm: 683949 1 Capsule(s) PO QID 04/09/2015 04/02/2016 Inactive citalopram 20 mg tablet RxNorm: 313179 TAKE ONE (1) TABLET BY MOUTH DAILY 01/26/2015 04/25/2015 In active Generic For:CELEXA 20MG TAB 01/26/2015 8:40:11 AM losartan 100 mg tablet RxNorm: 733106 1 Tablet, 1 time per Day 01/26/2015 03/29/2015 Inactive INSURANCE WILL NOT COVER ADELA ANDREWS UNTIL OTHER FORMULARIES HAVE BEEN TRIED AND FAILED hydrocodone 7.5 mg-a cetaminophen 325 mg tablet RxNorm: 975237 1-2 Tablet(s) PO Q4H as needed 01/23/2015 05/10/2015 Inactive Neurontin 100 mg cap almaz RxNorm: 354694 1 Capsule(s) PO TID 01/14/2015 03/09/2015 Inactive Neurontin 100 mg cap almaz RxNorm: 687424 1 Capsule(s) PO TID 01/14/2015 01/13/2015 Inactive Keflex 500 mg capsule RxNorm: 318881 1 Capsule(s) PO TID 01/06/2015 01/05/2015 Inactive Keflex 500 mg capsule RxNorm: 323440 1 Capsule(s) PO TID 01/06/2015 01/12/2015 Inactive hydrocodone 7.5 mg-a cetaminophen 325 mg tablet RxNorm: 851927 1-2 Tablet(s) PO Q4H as needed 12/29/2014 01/22/2015 Inactive Duexis 800 mg-26.6 m g tablet RxNorm: 7436034 1 Tablet(s) PO TID a s needed 12/19/2014 03/29/2015 In active Duexis 800 mg-26.6 m g tablet RxNorm: 7478242 1 Tablet(s) PO TID a s needed 12/19/2014 12/18/2014 In active Kenalog 40 mg/mL [place] pension for injection RxNorm: 6910586 1 Milliliter(s) Inj 12/09/2014 12/09/2014 In active prednisone 10 mg tab lets in a dose pack RxNorm: 784566 1 Tablet(s) PO UD 12/09/2014 12/14/2014 In active 6-5-4-3-2-1 amlodipine 10 mg tablet RxNorm: 227938 1 Tablet(s) PO daily 11/13/2014 11/07/2015 Inactive citalopram 20 mg tablet RxNorm: 988955 TAKE ONE (1) TABLET BY MOUTH DAILY 10/23/2014 01/20/2015 In active Generic For:CELEXA 20MG TAB 10/23/2014 4:32:02 PM N O T I C E PRESCRIPTION PREVIOUSLY AUTHORIZED BY DOCTOR:SWATI BEY hydrocodone 7.5 mg-a cetaminophen 325 mg tablet RxNorm: 467689 1-2 Tablet(s) PO Q4H as needed 10/22/2014 12/28/2014 Inactive Synthroid 75 mcg tablet RxNorm: 981638 TAKE 1 TABLET BY MOUTH DAILY 09/22/2014 04/19/2015 Inactive Generic For:*SYNTHROID 0.075MG TAB 04/2014 10:00:02 AM N O T I C E PRESCRIPTION PREVIOUSLY AUTHORIZED BY DOCTOR:SWATI BEY amlodipine 5 mg tablet RxNorm: 761308 1 Tablet(s) PO daily 08/25/2014 11/12/2014 Inactive Synthroid 75 mcg tablet RxNorm: 916440 1 Tablet(s) PO daily ecept a 1/2 tab on Monday07/11/2014 09/21/2014 Inactive Flonase Allergy Reli ef 50 mcg/actuation nasal spray,suspension RxNorm: 1 Anderson NASAL BID 07/10/2014 12/06/2014 Inactive Benicar 20 mg tablet RxNorm: 809960 1 Tablet(s) PO daily No Start Date Active Remicade intravenous RxNorm: 480276 intravenous No Start Date Active Celebrex 200 mg capsule RxNorm: 710484 1 Capsule(s) PO daily No Start Date 05/06/2015 Inactive Arava 20 mg tablet RxNorm: 712064 1 Tablet(s) PO daily No Start Date Active methotrexate sodium 2.5 mg tablet RxNorm: 800751 3 Tablet(s) PO weekly No Start Date 04/08/2015 Inactive gabapentin 300 mg ca psule RxNorm: 609402 1 Capsule(s) PO TID No Start Date 04/08/2015 Inactive Plaquenil 200 mg tablet RxNorm: 755199 1 Tablet(s) PO BID No Start Date 05/22/2016 Inactive losartan 100 mg tablet RxNorm: 422755 1 Tablet(s) PO daily No Start Date 01/25/2015 Inactive amlodipine 5 mg tablet RxNorm: 095235 1 Tablet(s) PO daily No Start Date 08/24/2014 Inactive citalopram 20 mg tablet RxNorm: 586250 1 Tablet(s) PO daily No Start Date 10/22/2014 Inactive Synthroid 88 mcg tablet RxNorm: 191529 1 Tablet(s) PO daily No Start Date 07/09/2014 Inactive Lipitor 40 mg tablet RxNorm: 610034 1 Tablet(s) PO daily No Start Date 05/13/2015 Inactive Synthroid 75 mcg tablet RxNorm: 835622 1 Tablet(s) PO daily No Start Date 07/10/2014 Inactive hydrocodone 7.5 mg-a cetaminophen 325 mg tablet RxNorm: 844198 Tablet(s) PO as neede d No Start Date 10/21/2014 Inactive Medication Administered Medication Codes Instruc tions Start Date Status Kenalog 40 mg/mL suspension for injection RxNorm: 4457126 1Milliliter 08/08/2016 N o longer Active Kenalog 40 mg/mL suspension for injection RxNorm: 0561952 1Milliliter 12/09/2014 N o longer Active Immunizations No Immunization data Assessments Condition Codes Effectiv e Dates Pleurisy ICD-10: R09.1 ICD-9: 511.0 08/08/2016 Other pruritus ICD-10: L29.8 ICD-9: 698.1 06/27/2016 Dysuria ICD-10: R30.0 ICD-9: 788.1 06/27/2016 Pain in left toe(s) ICD-10: M79.675 ICD-9: 729.5 05/23/2016 Pain in left foot ICD-10: M79.672 ICD-9: 729.5 05/23/2016 Candidiasis of vulva and vagina ICD- 10: B37.3 ICD-9: 112.1 04/18/2016 Pain in left hip ICD-10: M25.552 ICD-9: 719.45 02/23/2016 Atrophy of thyroid (acquired) ICD-10 : E03.4 ICD-9: 244.8 02/23/2016 Pain in right hip ICD-10: M25.551 ICD-9: 719.45 02/23/2016 Functional diarrhea ICD-10: K59.1 ICD-9: 564.5 02/23/2016 Essential (primary) hypertension ICD -10: I10 ICD-9: 401.9 02/23/2016 Mixed hyperlipidemia ICD-10: E78.2 ICD-9: 272.4 [...] Reason For Visit Effective Dates Notes pleurisy 08/08/2016 urinary urgency 06/27/2016 foot pain 05/23/2016 lef t great toe vaginal discharge 04/18/2016 pelvic pain 03/07/2016 hip pain 02/23/2016 hip pain 09/15/2015 rash 05/26/2015 sciatica 04/09/2015 Annual Medicare Wellness Exam 03/30/2015 sciatica 03/10/2015 sciatica 12/16/2014 sciatica 12/09/2014 blood pressure followup 11/13/2014 cough 07/10/2014 Results Observation Observation Code Item Item Code Result Date Urine Culture Ucult Prel iminary NO Growth Day 1 06/29 Urine Culture Ucult Comp lete NO Growth Day 2 06/29 Culture Urine [id number] URI NE CULTURE SEE NOTES 04/22/2016 Culture Urine [id number] Con tinued Results 04/22/2016 Urine Culture Ucult Comp lete >100,000 col/ml aerobic grow th sent to ref lab 04/20/2016 Comp Metabolic Edu690 NA 137 mEq/L 02/10/2016 Comp Metabolic Kqt778 K 4.1 mEq/L 02/10/2016 Comp Metabolic Tbe327 CL 102 mEq/L 02/10/2016 Comp Metabolic Zcg733 CO2 28.0 mEq/L 02/10/2016 Comp Metabolic Usd048 AN ION GAP 11 02/10/2016 Comp Metabolic Ezo779 GL UCOSE 104 mg/dL 02/10/2016 Comp Metabolic Hds906 Cr eat 0.7 mg/dL 02/10/2016 Comp Metabolic Tzg174 eG FR 83 ml/min/1.73m2 02/09 Comp Metabolic Ceu767 BUN 14 mg/dL 02/10/2016 Comp Metabolic Nqt994 B/ C Ratio 18.9 Ratio 02/10/2016 Comp Metabolic Kzz999 CA LCIUM 9.7 mg/dL 02/10/2016 Comp Metabolic Pgi346 AL K PHOS 121 U/L 02/10/2016 Comp Metabolic Gpj801 T(SGOT) 19 U/L 02/10/2016 Comp Metabolic Ibn038 AL T(SGPT) 13 U/L 02/10/2016 Comp Metabolic Shb352 BI LI T 0.5 mg/dL 02/10/2016 Comp Metabolic Ckc118 AL BUMIN 4.3 g/dL 02/10/2016 Comp Metabolic Vaw139 TP RO 6.8 g/dL 02/10/2016 Comp Metabolic Ntw298 GL OB 2.5 g/dL 02/10/2016 Comp Metabolic Fvw597 A/ G Ratio 1.7 Ratio 02/10/2016 Comp Metabolic Ovj619 Os mo 275 mOsmo 02/10/2016 Lipid Ord30 CHOL 229 mg/dL 02/10/2016 Lipid Ord30 HDL 59.0 mg/dl 02/10/2016 Lipid Ord30 TRIG 252 mg/dL 02/10/2016 Lipid Ord30 LDL 120 mg/dL 02/10/2016 Lipid Ord30 C/HDL 3.9 Ratio 02/10/2016 Free T4 Ode347 FREE T4 0.87 ng/dL 02/10/2016 Tsh Ord6 [...] 29.2 pg 02/10/2016 Cbc With Differential Ord2 Alcorn% 18.6 % 02/10/2016 Cbc With Differential Ord2 [...] 1.81 K/ul 02/10/2016 Cbc With Differential Ord2 Alcorn ABS# 1.1 K/ul 02/10/2016 Cbc With Differential Ord2 Eos ABS# 0.1 K/ul 02/10/2016 Cbc With Differential Ord2 Baso ABS# 0.1 K/ul 02/10/2016 Tsh Ord6 hTSH II 0.85 uIU/mL 04/02/2015 Lipid Ord30 CHOL 207 mg/dL 04/02/2015 Lipid Ord30 HDL 68.0 mg/dl 04/02/2015 Lipid Ord30 TRIG 193 mg/dL 04/02/2015 Lipid Ord30 LDL 100 mg/dL 04/02/2015 Lipid Ord30 C/HDL 3.0 Ratio 04/02/2015 Free T4 Sbo142 FREE T4 1.09 ng/dL 04/02/2015 Free T4 Bak621 FREE T4 0.82 ng/dL 10/15/2014 Tsh Ord6 hTSH II 0.80 uIU/mL 10/15/2014 Review of Systems System Result Effective Dates Constitutional recent illness 08/08/2016 Constitutional No anorexia [...] Date TRIAMCINOLONE ACET I [place] NOS CPT-4: Q5144Hjkpxoc 08/08/2016 PRESCRIP TRANSMIT A ERX SY CPT-4: R5838Ygtzawx 08/08/2016 PRESCRIP TRANSMIT A ERX SY CPT-4: R1324Hchbiwr 04/18/2016 TRIAMCINOLONE ACET I [place] NOS CPT-4: M7978Kvrmlzx 05/26/2015 PRESCRIP TRANSMIT A ERX SY CPT-4: V9683Wmnkcnh 05/26/2015 PRESCRIP TRANSMIT A ERX SY CPT-4: K7755Nlbzfii 04/09/2015 INITIAL PREVENTIVE E XAM CPT-4: L5943Bdpxcuu 03/30/2015 TRIAMCINOLONE ACET I [place] NOS CPT-4: V4605Buiculh 12/09/2014 PRESCRIP TRANSMIT A ERX SY CPT-4: T9292Soygvji 12/09/2014 PRESCRIP TRANSMIT A ERX SY CPT-4: B6898Zemiiom 11/13/2014 Vital Signs Date Vital 08/08/2016 Blood Pressure 1: 142/76 Code: 8480-6 BMI: 29.9 Code: 36893-4 Heart Rate 1: 80 bpm Height: 5'4" SpO2: 94% Weight: 174 lbs 06/27/2016 Blood Pressure 1: 156/72 Code: 8480-6 BMI: 30.6 Code: 00048-0 Heart Rate 1: 78 bpm Height: 5'4" SpO2: 95% Weight: 178 lbs 05/23/2016 Blood Pressure 1: 146/84 Code: 8480-6 Heart Rate 1: 66 bpm Height: 5'4" SpO2: 94% 04/18/2016 Blood Pressure 1: 148/84 Code: 8480-6 BMI: 30.2 Code: 49412-6 Heart Rate 1: 81 bpm Height: 5'4" SpO2: 97% Weight: 176 lbs 03/07/2016 Blood Pressure 1: 130/78 Code: 8480-6 BMI: 30.0 Code: 75320-9 Heart Rate 1: 85 bpm Height: 5'4" SpO2: 96% Weight: 175 lbs 02/23/2016 Blood Pressure 1: 140/78 Code: 8480-6 BMI: 29.7 Code: 47057-5 Heart Rate 1: 74 bpm Height: 5'4" SpO2: 95% Weight: 173 lbs 09/15/2015 Blood Pressure 1: 140/88 Code: 8480-6 BMI: 29.4 Code: 45587-9 Heart Rate 1: 81 bpm Height: 5'4" SpO2: 97% Weight: 171 lbs 8 oz 05/26/2015 Blood Pressure 1: 150/80 Code: 8480-6 BMI: 31.6 Code: 12602-7 Heart Rate 1: 70 bpm Height: 5'4" SpO2: 96% Weight: 184 lbs 04/09/2015 Blood Pressure 1: 136/74 Code: 8480-6 BMI: 31.4 Code: 40120-3 Heart Rate 1: 91 bpm Height: 5'4" SpO2: 94% Weight: 183 lbs 03/30/2015 Blood Pressure 1: 130/72 Code: 8480-6 BMI: 30.9 Code: 59575-6 Heart Rate 1: 80 bpm Height: 5'4" SpO2: 97% Waist Measure (cm): 102 cm Weight: 180 lbs 03/10/2015 Blood Pressure 1: 152/80 Code: 8480-6 BMI: 31.1 Code: 10429-8 Heart Rate 1: 66 bpm Height: 5'4" SpO2: 98% Weight: 181 lbs 12/16/2014 Blood Pressure 1: 132/88 Code: 8480-6 Blood Pressure 1: 132/88 Code: 8480-6 Heart Rate 1: 88 bpm SpO2: 98% Weight: 183 lbs 12/09/2014 Blood Pressure 1: 140/82 Code: 8480-6 BMI: 31.2 Code: 89996-5 Heart Rate 1: 105 bpm Height: 5'4" SpO2: 93% Weight: 182 lbs 11/13/2014 Blood Pressure 1: 148/88 Code: 8480-6 BMI: 31.8 Code: 06872-0 Heart Rate 1: 54 bpm Height: 5'4" SpO2: 98% Weight: 185 lbs 07/10/2014 Blood Pressure 1: 144/96 Code: 8480-6 BMI: 31.4 Code: 16088-7 Heart Rate 1: 99 bpm Height: 5'4" SpO2: 98% Temperature: 36.8 (C ) / 98.2 (F) Weight: 183 lbs Functional Status No Functional Status data History of Present Illness Symptom Name Status Resu lt Effective Date Notes pleurisy Alleviating Factors anti- inflammatory medications 08/08/2016 [...] Encounters Encounter Performer Loca tion Codes Date ([id number]) 87746 EST. P ATIENT, LEVEL III Diagnosis: Pleurisy[ICD10: R09.1] [facility] CPT-4: 05623 08/08/2016 71025 EST. PATIENT, LEVEL III Diagnosis: Dysuria[ICD10: R30.0] Diagnosis: Other pruritus[ICD10: L29.8] [facility] CPT-4: 87978 06/27/2016 [id number]) 84922 EST. P ATIENT, LEVEL III Diagnosis: Pain in left foot[ICD10: M79.672] Diagnosis: Pain in left toe(s)[ICD10: M79.675] [facility] CPT-4: 29909 05/23/2016 87870 EST. PATIENT, LEVEL III Diagnosis: Candidiasis of vulva and vagina[ICD10: B37.3] Diagnosis: Dysuria[ICD10: R30.0] [facility] CPT-4: 72154 04/18/2016 62580 EST. PATIENT, LEVEL III Diagnosis: Other pruritus[ICD10: L29.8] Diagnosis: Candidiasis of vulva and vagina[ICD10: B37.3] Shila [facility] MD, [facility] CPT-4: 72847 03/07/2016 ([id number]) 60645 EST. P ATIENT, LEVEL IV Diagnosis: Essential (primary) hypertension[ICD10: I10] Diagnosis: Pain in left hip[ICD10: M25.552] Diagnosis: Pain in right hip[ICD10: M25.551] Diagnosis: Functional diarrhea[ICD10: K59.1] Diagnosis: Atrophy of thyroid (acquired)[ICD10: E03.4] [facility] MD, [facility] CPT-4: 71485 02/23/2016 ([id number]) 41920 EST. P ATIENT, LEVEL IV Diagnosis: Essential (primary) hypertension[ICD10: I10] Diagnosis: Mixed hyperlipidemia[ICD10: E78.2] Diagnosis: Major depressive disorder, single episode, unspecified[ICD10: F32.9] [facility] MD, [facility] CPT-4: 34131 09/15/2015 76126 EST. PATIENT, LEVEL III Diagnosis: Rash and other nonspecific skin eruption[ICD10: R21] [facility] MD, [facility] CPT-4: 25754 05/26/2015 ([id number]) 39012 EST. P ATIENT, LEVEL IV Diagnosis: Essential (primary) hypertension[ICD10: I10] Diagnosis: Foot drop, left foot[ICD10: M21.372] Diagnosis: Sacroiliitis, not elsewhere classified[ICD10: M46.1] [facility] MD, [facility] CPT-4: 48697 04/09/2015 ([id number]) 23422 EST. 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 P ATIENT, LEVEL III Diagnosis: Trochanteric bursitis, left hip[ICD10: M70.62] Diagnosis: Iliotibial band syndrome, left leg[ICD10: M76.32] Diagnosis: Sciatica, left side[ICD10: M54.32] Elizabet Falk MD, [facility] CPT-4: 80626 12/16/2014 ([id number]) 89016 EST. P ATIENT, LEVEL III Diagnosis: Sciatica, left side[ICD10: M54.32] Diagnosis: Sacroiliitis, not elsewhere classified[ICD10: M46.1] [facility] CPT-4: 41927 12/09/2014 ([id number]) 95917 EST. 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] Diagnosis: Carpal tunnel syndrome, unspecified upper limb[ICD10: G56.00] [facility] MD, [facility] CPT-4: 62547 11/13/2014 ([id number]) OFFICE VISI T, NEW - LEVEL 4 Diagnosis: ESSENTIAL HYPERTENSION[ICD9: 401.9] Diagnosis: HYPERLIPIDEMIA[ICD9: 272.4] Diagnosis: DEPRESSIVE DISORDER NEC[ICD9: 311] Diagnosis: Diarrhea[ICD9: 787.91] [facility] CPT-4: 74402 07/10/2014 Plan of Care Planned Activity Notes C odes Status Date Visit Plan: Pleurisy-discussed natural a nd expected course of this diagnosis and to alert me if symptoms do not follow expected course, or if any worse. Kenalog injection today in the office-start prednisone tomorrow. Patient verbalized understanding of plan. 08/08/2016 Appointment: Elizabet Donaldson WPtel: [phone] [facility] (30 min) Complex 08/08/2016 Patient Education: Patient Medication Summary Completed 08/08/2016 Referral: Delia Bernstein WPtel: [phone] [facility] B [id number] Referral Initiated 08/01/2016 Visit Plan: Vaginal yeast [...] refer. 06/27/2016 [phone] ([facility] Complex 06/27/2016 Patient Education: Patient Medication Summary Completed 06/27/2016 Care Plan: Referral Order SNOMED-CT : [id number] Pending 06/27/2016 Visit Plan: Left foot, 1st and 2nd toe p ain-suspect fracture of left great toe- will obtain xrays and proceed as indicated. Patient verbalized understanding of plan. 05/23/2016 Appointment: [facility] [phone] [phone] [place] (15 min) Moderate 05/23/2016 Patient [...] probiotics 02/23/2016 Appointment: Shannon Falk WPtel: [phone] [facility] (15 min) Moderate 02/23/2016 Patient Education: [...] Education: Patient Medication Summary Completed 09/15/2015 Appointment: Deya Shannon WPtel: [phone] [facility] (15 min) Moderate 07/29/2015 Visit Plan: Rash [...] - vitamin B12 liquid 2000mcg daily - [facility] sells the liquid b12, folic acid - take daily.metanex 1 capsule twice daily - call office if this seems to help decrease nerve painincrease the night-time dosing of gabapentin to 300mg in AM, Noon, 6pm and 10pm 04/09/2015 Appointment: Shannon Falktel: [facility] ([facility] min) Moderate 04/09/2015 Patient Education: Patient [...] repeat scope in 2012. 03/10/2015 [facility]ment: [phone] [facility] (15 min) Moderate 03/10/2015 Patient Education: Patient Medication Summary Completed 03/10/2015 Care Plan: SCREENINGMAMMOGRAPHYDIGITAL LOINC : 07842-0 Ordered 03/10/2015 Care Plan: Referral Order SNOMED-CT : [id number] Ordered 03/10/2015 Care Plan: Referral Order SNOMED-CT : [id number] Ordered 03/10/2015 Visit Plan: Left hip bursitis/Iliotibial [...] Rehabilitation exercises Completed 12/16/2014 Patient Education: .Pippa DoubleRecall Exercise for Sciati ca Completed 12/16/2014 Care Plan: Referral Order SNOMED-CT : [id number] Ordered 12/16/2014 Visit Plan: Sacroiliitis - back [...] Medication Summary Completed 12/09/2014 Patient Education: .[place] DoubleRecall Exercise for [place] Completed 12/09/2014 Visit [...] brace. 11/13/2014 Appointment: Shannon Falk WPtel: [phone] [id number] Follow up 11/13/2014 Patient Education: Patient [...] or stomach pain.ALIGN PROBIOTIC - TAKE DAILY ([employer] OR [employer] -TWO OTHER PROBIOTICS THAT ARE HIGH QUALITY)CIPROFLOXACIN TO BE TAKEN IF NEEDED IF THE DIARRHEA DOES NOT IMPROVE OR IF IT WORSENS. 07/10/2014 Appointment: [facility] [phone] [id number] [place] New Patient 07/10/2014 Patient Education: Patient Medication Summary Completed 07/10/2014 Patient Education: Hypertension Completed 07/10/2014 Referral: Darci Spann Referral Relationship Referral: External, Ordering Provider Referral Appointment Requested Referral: Delia Bernstein WPtel: [phone] [facility] [place] Referral Initiated Referral: External, Ordering Provider [...] is finished, refill the 10mg pill at [facility]. carpal tunnel brace . Hypertension [...] pt had 2013 colonoscopy with hyperplastic polyps, Mari aInes recommended repeat scope in 2013. Nasal spray- use twi ce daily, one spray per nostril twice daily, after 30 minutes, rinse out nose with saline spray.. Use opposite hand per nostril to spray in the nasal steroid allergy spray. ALIGN PROBIOTIC - TAKE DAILY (CULTURELLE OR [employer] [facility] -TWO OTHER PROBIOTICS THAT ARE [...] stomach pain. ALIGN PROBIOTIC - TAKE DAILY (KO-SULLE OR [employer] [facility] -TWO OTHER PROBIOTICS THAT ARE [...] or with any concerns. . Vaginal yeast infe ction - Discussed [...] vitamin B12 liquid 2 000mcg daily - [facility] sells the liquid b12 folic acid - [...] - vitamin B12 liquid 2000mcg daily - [facility] sells the liquid b12, folic acid - [...]
--- OUTSIDE RECORDS SUMMARY | 2019-06-07 16:28 | XMS REPORT | CCD ---
Author Author Dalila Falk Organization [facility] Address [address] [place] [address] Phone Care Team Providers Care Shoeblack Name Role Phone PP Unavailable CCM Unavailable Summary Purpose Interface Exchange Insurance Providers Payer name Policy type / Coverage type Covered republican ID Effective Begin Date Effective End Date WPS Medicare Part B Medicare Part B [id number] Unknown [place] Usp Life Insurance M edicare Part B [id number] Unkn own Family history Brother Diagnosis Age [...] Unknown 2 07/10/[address]: [id number] Has never smoked or chewed tobacco 07/10/2014 [...] Date Stop Date Sta tus Fill Instructions prednisone 10 mg tab lets in a dose pack RxNorm: 020521 1 Tablet(s) PO UD 08/08/2016 08/13/2016 Ac tive 6-5-4-3-2-1 Kenalog 40 mg/mL [place] pension for injection RxNorm: 7039405 1 Milliliter(s) Inj 08/08/2016 08/08/2016 In active prednisone 10 mg tab lets in a dose pack RxNorm: 753761 1 Tablet(s) PO UD 08/08/2016 08/07/2016 In active Diflucan 150 mg tablet RxNorm: 729484 1 Tablet(s) PO daily 06/27/2016 07/10/2016 Inactive Synthroid 75 mcg tablet RxNorm: 661862 TAKE 1 TABLET BY MOUTH DAILY 06/16/2016 01/11/2017 Active Generic For:*SYNTHROID 0.075MG TAB pt wo uld like a 90 day supply N O T I C E Last quantity doesn't match original quantity hydrocodone 7.5 mg-a cetaminophen 325 mg tablet RxNorm: 214379 1-2 Tablet(s) PO Q4H as needed 06/06/2016 No Stop Date Active citalopram 20 mg tablet RxNorm: 285295 TAKE ONE (1) TABLET BY MOUTH DAILY 05/18/2016 11/13/2016 Ac tive Generic For:CELEXA 20MG TAB 05/17/2016 8:32:02 AM Celebrex 200 mg capsule RxNorm: 243945 1 Capsule(s) PO daily 05/17/2016 05/11/2017 Active losartan 100 mg tablet RxNorm: 097251 TAKE 1 TABLET BY MOUTH DAILY 05/17/2016 11/12/2016 Active Generic For:COZAAR 100MG TAB 05/17/2016 8:31:51 AM amlodipine 5 mg tablet RxNorm: 049213 1 Tablet(s) PO daily 05/10/2016 11/05/2016 Active Cipro 500 mg tablet RxNorm: 147073 1 Tablet(s) PO BID 05/04/2016 05/03/2016 Inactive Cipro 500 mg tablet RxNorm: 216664 1 Tablet(s) PO BID 05/04/2016 05/13/2016 Inactive Diflucan 150 mg tablet RxNorm: 125285 1 Tablet(s) PO daily 04/18/2016 05/01/2016 Inactive Monistat Soothing Ca re 1.2 % topical gel RxNorm: 9956491 1 Application TOP BI D 03/07/2016 No Stop Date Active Diflucan 150 mg tablet RxNorm: 797380 1 Tablet(s) PO daily 03/07/2016 03/13/2016 Inactive Lipitor 40 mg tablet RxNorm: 186818 Tablet(s) TAKE ONE TABLET BY MOUTH AT BE DTIME 02/23/2016 02/16/2017 Ac tive citalopram 20 mg tablet RxNorm: 331627 TAKE ONE (1) TABLET BY MOUTH DAILY 02/18/2016 05/17/2016 In active Generic For:CELEXA 20MG TAB refill reque st losartan 100 mg tablet RxNorm: 404582 Tablet(s) 1 Tablet, 1 time per Day 02/09/2016 05/16/2016 In active INSURANCE WILL NOT COVER ADELA ANDREWS IED UNTIL OTHER FORMULARIES HAVE BEEN TRIED AND FAILED hydrocodone 7.5 mg-a cetaminophen 325 mg tablet RxNorm: 841403 1-2 Tablet(s) PO Q4H as needed 02/03/2016 06/05/2016 Inactive Synthroid 75 mcg tablet RxNorm: 534459 Tablet(s) TAKE 1 TABLET BY MOUTH DAILY 01/19/2016 06/15/2016 In active Generic For:*SYNTHROID 0.075MG TAB 04/2014 10:00:02 AM N O T I C E PRESCRIPTION PREVIOUSLY AUTHORIZED BY DOCTOR:SWATI BEY prednisone 10 mg tab lets in a dose pack RxNorm: 948175 1 Tablet(s) PO UD 01/07/2016 02/22/2016 In active 6-5-4-3-2-1 amlodipine 10 mg tablet RxNorm: 574086 1 Tablet(s) PO daily 12/07/2015 11/30/2016 Active citalopram 20 mg tablet RxNorm: 234683 TAKE ONE (1) TABLET BY MOUTH DAILY 11/17/2015 02/14/2016 In active Generic For:CELEXA 20MG TAB refill reque st hydrocodone 7.5 mg-a cetaminophen 325 mg tablet RxNorm: 380913 1-2 Tablet(s) PO Q4H as needed 10/08/2015 02/02/2016 Inactive losartan 100 mg tablet RxNorm: 876459 Tablet(s) 1 Tablet, 1 time per Day 2015 02/07/2016 In active INSURANCE WILL NOT COVER BENICAR, [place] DEN IED UNTIL OTHER FORMULARIES HAVE BEEN TRIED AND FAILED citalopram 20 mg tablet RxNorm: 346908 TAKE ONE (1) TABLET BY MOUTH DAILY 08/10/2015 11/07/2015 In active Generic For:CELEXA 20MG TAB 08/10/2015 8:59:58 AM Synthroid 75 mcg tablet RxNorm: 681826 Tablet(s) TAKE 1 TABLET BY MOUTH DAILY 05/26/2015 12/21/2015 In active Generic For:*SYNTHROID 0.075MG TAB 04/2014 10:00:02 AM N O T I C E PRESCRIPTION PREVIOUSLY AUTHORIZED BY DOCTOR:SWATI BEY prednisone 20 mg tablet RxNorm: 131425 2 Tablet(s) PO daily 05/26/2015 05/30/2015 Inactive Lipitor 40 mg tablet RxNorm: 771289 TAKE ONE TABLET BY MOUTH AT BEDTIME 05/14/2015 02/07/2016 In active Generic For:LIPITOR 40MG TAB 05/13/2015 8:26:33 AM N O T I C E PRESCRIPTION PREVIOUSLY AUTHORIZED BY DOCTOR:SWATI BEY hydrocodone 7.5 mg-a cetaminophen 325 mg tablet RxNorm: 163917 1-2 Tablet(s) PO Q4H as needed 05/11/2015 10/07/2015 Inactive Celebrex 200 mg capsule RxNorm: 464353 1 Capsule(s) PO daily 05/07/2015 04/30/2016 Inactive citalopram 20 mg tablet RxNorm: 167648 TAKE ONE (1) TABLET BY MOUTH DAILY 04/27/2015 07/25/2015 In active Generic For:CELEXA 20MG TAB 04/26/2015 7:30:08 PM gabapentin 300 mg ca psule RxNorm: 779100 1 Capsule(s) PO QID 04/09/2015 04/02/2016 Inactive citalopram 20 mg tablet RxNorm: 503518 TAKE ONE (1) TABLET BY MOUTH DAILY 01/26/2015 04/25/2015 In active Generic For:CELEXA 20MG TAB 01/26/2015 8:40:11 AM losartan 100 mg tablet RxNorm: 469847 1 Tablet, 1 time per Day 01/26/2015 03/29/2015 Inactive INSURANCE WILL NOT COVER ADELA ANDREWS DEN IED UNTIL OTHER FORMULARIES HAVE BEEN TRIED AND FAILED hydrocodone 7.5 mg-a cetaminophen 325 mg tablet RxNorm: 757848 1-2 Tablet(s) PO Q4H as needed 01/23/2015 05/10/2015 Inactive Neurontin 100 mg cap almaz RxNorm: 073969 1 Capsule(s) PO TID 01/14/2015 03/09/2015 Inactive Neurontin 100 mg cap almaz RxNorm: 444908 1 Capsule(s) PO TID 01/14/2015 01/13/2015 Inactive Keflex 500 mg capsule RxNorm: 765572 1 Capsule(s) PO TID 01/06/2015 01/05/2015 Inactive Keflex 500 mg capsule RxNorm: 509642 1 Capsule(s) PO TID 01/06/2015 01/12/2015 Inactive hydrocodone 7.5 mg-a cetaminophen 325 mg tablet RxNorm: 725679 1-2 Tablet(s) PO Q4H as needed 12/29/2014 01/22/2015 Inactive Duexis 800 mg-26.6 m g tablet RxNorm: 4982692 1 Tablet(s) PO TID a s needed 12/19/2014 03/29/2015 In active Duexis 800 mg-26.6 m g tablet RxNorm: 1869595 1 Tablet(s) PO TID a s needed 12/19/2014 12/18/2014 In active Kenalog 40 mg/mL [place] pension for injection RxNorm: 0093352 1 Milliliter(s) Inj 12/09/2014 12/09/2014 In active prednisone 10 mg tab lets in a dose pack RxNorm: 852041 1 Tablet(s) PO UD 12/09/2014 12/14/2014 In active 6-5-4-3-2-1 amlodipine 10 mg tablet RxNorm: 629468 1 Tablet(s) PO daily 11/13/2014 11/07/2015 Inactive citalopram 20 mg tablet RxNorm: 731693 TAKE ONE (1) TABLET BY MOUTH DAILY 10/23/2014 01/20/2015 In active Generic For:CELEXA 20MG TAB 10/23/2014 4:32:02 PM N O T I C E PRESCRIPTION PREVIOUSLY AUTHORIZED BY DOCTOR:SWATI BEY hydrocodone 7.5 mg-a cetaminophen 325 mg tablet RxNorm: 398372 1-2 Tablet(s) PO Q4H as needed 10/22/2014 12/28/2014 Inactive Synthroid 75 mcg tablet RxNorm: 916317 TAKE 1 TABLET BY MOUTH DAILY 09/22/2014 04/19/2015 Inactive Generic For:*SYNTHROID 0.075MG TAB 04/2014 10:00:02 AM N O T I C E PRESCRIPTION PREVIOUSLY AUTHORIZED BY DOCTOR:SWATI BEY amlodipine 5 mg tablet RxNorm: 240317 1 Tablet(s) PO daily 08/25/2014 11/12/2014 Inactive Synthroid 75 mcg tablet RxNorm: 304144 1 Tablet(s) PO daily ecept a 1/2 tab on Monday07/11/2014 09/21/2014 Inactive Flonase Allergy Reli ef 50 mcg/actuation nasal spray,suspension RxNorm: 1 [place] NASAL BID 07/10/2014 12/06/2014 Inactive Benicar 20 mg tablet RxNorm: 754201 1 Tablet(s) PO daily No Start Date Active Remicade intravenous RxNorm: 217322 intravenous No Start Date Active Celebrex 200 mg capsule RxNorm: 988543 1 Capsule(s) PO daily No Start Date 05/06/2015 Inactive Arava 20 mg tablet RxNorm: 975371 1 Tablet(s) PO daily No Start Date Active methotrexate sodium 2.5 mg tablet RxNorm: 746559 3 Tablet(s) PO weekly No Start Date 04/08/2015 Inactive gabapentin 300 mg ca psule RxNorm: 795865 1 Capsule(s) PO TID No Start Date 04/08/2015 Inactive Plaquenil 200 mg tablet RxNorm: 332206 1 Tablet(s) PO BID No Start Date 05/22/2016 Inactive losartan 100 mg tablet RxNorm: 444272 1 Tablet(s) PO daily No Start Date 01/25/2015 Inactive amlodipine 5 mg tablet RxNorm: 111565 1 Tablet(s) PO daily No Start Date 08/24/2014 Inactive citalopram 20 mg tablet RxNorm: 984132 1 Tablet(s) PO daily No Start Date 10/22/2014 Inactive Synthroid 88 mcg tablet RxNorm: 450726 1 Tablet(s) PO daily No Start Date 07/09/2014 Inactive Lipitor 40 mg tablet RxNorm: 990132 1 Tablet(s) PO daily No Start Date 05/13/2015 Inactive Synthroid 75 mcg tablet RxNorm: 072810 1 Tablet(s) PO daily No Start Date 07/10/2014 Inactive hydrocodone 7.5 mg-a cetaminophen 325 mg tablet RxNorm: 957499 Tablet(s) PO as neede d No Start Date 10/21/2014 Inactive Medication Administered Medication Codes Instruc tions Start Date Status Kenalog 40 mg/mL suspension for injection RxNorm: 0193919 1Milliliter 08/08/2016 N o longer Active Kenalog 40 mg/mL suspension for injection RxNorm: 4989610 1Milliliter 12/09/2014 N o longer Active Immunizations [...] NO Growth Day 2 06/29 Culture Urine [id number] URI NE CULTURE SEE NOTES 04/22/2016 Culture Urine [id number] Con tinued Results 04/22/2016 Urine Culture Ucult Comp lete >100,000 col/ml aerobic grow th sent to ref lab 04/20/2016 Comp Metabolic Ygh644 NA 137 mEq/L 02/10/2016 Comp Metabolic Vgm201 K 4.1 mEq/L 02/10/2016 Comp Metabolic Ofp121 CL 102 mEq/L 02/10/2016 Comp Metabolic Sqa208 CO2 28.0 mEq/L 02/10/2016 Comp Metabolic Frs173 AN ION GAP 11 02/10/2016 Comp Metabolic Lgd195 GL UCOSE 104 mg/dL 02/10/2016 Comp Metabolic Gzz416 Cr eat 0.7 mg/dL 02/10/2016 Comp Metabolic Wte762 eG FR 83 ml/min/1.73m2 02/09 Comp Metabolic Nww194 BUN 14 mg/dL 02/10/2016 Comp Metabolic Suj703 B/ C Ratio 18.9 Ratio 02/10/2016 Comp Metabolic Sga343 CA LCIUM 9.7 mg/dL 02/10/2016 Comp Metabolic Okc811 AL K PHOS 121 U/L 02/10/2016 Comp Metabolic Uiy442 T(SGOT) 19 U/L 02/10/2016 Comp Metabolic Nts733 AL T(SGPT) 13 U/L 02/10/2016 Comp Metabolic Vzv243 BI LI T 0.5 mg/dL 02/10/2016 Comp Metabolic Mtn128 AL BUMIN 4.3 g/dL 02/10/2016 Comp Metabolic Iox237 TP RO 6.8 g/dL 02/10/2016 Comp Metabolic Ler282 GL OB 2.5 g/dL 02/10/2016 Comp Metabolic Wom065 A/ G Ratio 1.7 Ratio 02/10/2016 Comp Metabolic Wrn425 Os mo 275 mOsmo 02/10/2016 Lipid Ord30 CHOL 229 mg/dL 02/10/2016 Lipid Ord30 HDL 59.0 mg/dl 02/10/2016 Lipid Ord30 TRIG 252 mg/dL 02/10/2016 Lipid Ord30 LDL 120 mg/dL 02/10/2016 Lipid Ord30 C/HDL 3.9 Ratio 02/10/2016 Free T4 Imf982 FREE T4 0.87 ng/dL 02/10/2016 Tsh Ord6 [...] 29.2 pg 02/10/2016 Cbc With Differential Ord2 [place]% 18.6 % 02/10/2016 Cbc With Differential Ord2 [...] 1.81 K/ul 02/10/2016 Cbc With Differential Ord2 [place] ABS# 1.1 K/ul 02/10/2016 Cbc With Differential Ord2 Eos ABS# 0.1 K/ul 02/10/2016 Cbc With Differential Ord2 Baso ABS# 0.1 K/ul 02/10/2016 Tsh Ord6 hTSH II 0.85 uIU/mL 04/02/2015 Lipid Ord30 CHOL 207 mg/dL 04/02/2015 Lipid Ord30 HDL 68.0 mg/dl 04/02/2015 Lipid Ord30 TRIG 193 mg/dL 04/02/2015 Lipid Ord30 LDL 100 mg/dL 04/02/2015 Lipid Ord30 C/HDL 3.0 Ratio 04/02/2015 Free T4 Nmo721 FREE T4 1.09 ng/dL 04/02/2015 Free T4 Cns142 FREE T4 0.82 ng/dL 10/15/2014 Tsh Ord6 [...] Date TRIAMCINOLONE ACET I [place] NOS CPT-4: O5446Mlkjcsl 08/08/2016 PRESCRIP TRANSMIT A ERX SY CPT-4: D6882Rhcufgr 08/08/2016 PRESCRIP TRANSMIT A ERX SY CPT-4: X3061Kpogujz 04/18/2016 TRIAMCINOLONE ACET I [place] NOS CPT-4: Q1910Ofvdwcd 05/26/2015 PRESCRIP TRANSMIT A ERX SY CPT-4: Z3788Ulujmke 05/26/2015 PRESCRIP TRANSMIT A ERX SY CPT-4: X3027Ufzszfq 04/09/2015 INITIAL PREVENTIVE E XAM CPT-4: T9621Ikuwnul 03/30/2015 TRIAMCINOLONE ACET I [place] NOS CPT-4: A5376Dptpcun 12/09/2014 PRESCRIP TRANSMIT A ERX SY CPT-4: D1896Adbrrzd 12/09/2014 PRESCRIP TRANSMIT A ERX SY CPT-4: Q7709Mgzalwj 11/13/2014 Vital Signs Date Vital 08/08/2016 Blood Pressure 1: 142/76 Code: 8480-6 BMI: 29.9 Code: 59236-4 Heart Rate 1: 80 bpm Height: 5'4" SpO2: 94% Weight: 174 lbs 06/27/2016 Blood Pressure 1: 156/72 Code: 8480-6 BMI: 30.6 Code: 12835-0 Heart Rate 1: 78 bpm Height: 5'4" SpO2: 95% Weight: 178 lbs 05/23/2016 Blood Pressure 1: 146/84 Code: 8480-6 Heart Rate 1: 66 bpm Height: 5'4" SpO2: 94% 04/18/2016 Blood Pressure 1: 148/84 Code: 8480-6 BMI: 30.2 Code: 68587-0 Heart Rate 1: 81 bpm Height: 5'4" SpO2: 97% Weight: 176 lbs 03/07/2016 Blood Pressure 1: 130/78 Code: 8480-6 BMI: 30.0 Code: 50622-3 Heart Rate 1: 85 bpm Height: 5'4" SpO2: 96% Weight: 175 lbs 02/23/2016 Blood Pressure 1: 140/78 Code: 8480-6 BMI: 29.7 Code: 64038-0 Heart Rate 1: 74 bpm Height: 5'4" SpO2: 95% Weight: 173 lbs 09/15/2015 Blood Pressure 1: 140/88 Code: 8480-6 BMI: 29.4 Code: 50022-3 Heart Rate 1: 81 bpm Height: 5'4" SpO2: 97% Weight: 171 lbs 8 oz 05/26/2015 Blood Pressure 1: 150/80 Code: 8480-6 BMI: 31.6 Code: 40145-6 Heart Rate 1: 70 bpm Height: 5'4" SpO2: 96% Weight: 184 lbs 04/09/2015 Blood Pressure 1: 136/74 Code: 8480-6 BMI: 31.4 Code: 04912-0 Heart Rate 1: 91 bpm Height: 5'4" SpO2: 94% Weight: 183 lbs 03/30/2015 Blood Pressure 1: 130/72 Code: 8480-6 BMI: 30.9 Code: 94910-7 Heart Rate 1: 80 bpm Height: 5'4" SpO2: 97% Waist Measure (cm): 102 cm Weight: 180 lbs 03/10/2015 Blood Pressure 1: 152/80 Code: 8480-6 BMI: 31.1 Code: 62694-1 Heart Rate 1: 66 bpm Height: 5'4" SpO2: 98% Weight: 181 lbs 12/16/2014 Blood Pressure 1: 132/88 Code: 8480-6 Blood Pressure 1: 132/88 Code: 8480-6 Heart Rate 1: 88 bpm SpO2: 98% Weight: 183 lbs 12/09/2014 Blood Pressure 1: 140/82 Code: 8480-6 BMI: 31.2 Code: 62673-2 Heart Rate 1: 105 bpm Height: 5'4" SpO2: 93% Weight: 182 lbs 11/13/2014 Blood Pressure 1: 148/88 Code: 8480-6 BMI: 31.8 Code: 46153-9 Heart Rate 1: 54 bpm Height: 5'4" SpO2: 98% Weight: 185 lbs 07/10/2014 Blood Pressure 1: 144/96 Code: 8480-6 BMI: 31.4 Code: 99705-8 Heart Rate 1: 99 bpm Height: 5'4" [...] Encounters Encounter Performer Loca tion Codes Date ([id number]) [id number] EST. P ATIENT, LEVEL III Diagnosis: Pleurisy[ICD10: R09.1] Elizabet Falk MD, [facility] CPT-4: 15015 08/08/2016 [id number] EST. PATIENT, LEVEL III Diagnosis: Dysuria[ICD10: R30.0] Diagnosis: Other pruritus[ICD10: L29.8] [facility] CPT-4: 33503 06/27/2016 ([id number]) 58210 EST. P [facility], LEVEL III Diagnosis: Pain in left foot[ICD10: M79.672] Diagnosis: Pain in left toe(s)[ICD10: M79.675] [facility] CPT-4: 93251 05/23/2016 16876 EST. PATIENT, LEVEL III Diagnosis: Candidiasis of vulva and vagina[ICD10: B37.3] Diagnosis: Dysuria[ICD10: R30.0] [facility] CPT-4: 09146 04/18/2016 63541 EST. PATIENT, LEVEL III Diagnosis: Other pruritus[ICD10: L29.8] Diagnosis: Candidiasis of vulva and vagina[ICD10: B37.3] [facility] CPT-4: 02193 03/07/2016 [id number]) 41266 EST. P [facility], LEVEL IV Diagnosis: Essential (primary) hypertension[ICD10: I10] Diagnosis: Pain in left hip[ICD10: M25.552] Diagnosis: Pain in right hip[ICD10: M25.551] Diagnosis: Functional diarrhea[ICD10: K59.1] Diagnosis: Atrophy of thyroid (acquired)[ICD10: E03.4] [facility] CPT-4: 05935 02/23/2016 ([id number]) 85546 EST. P ATIENT, LEVEL IV Diagnosis: Essential (primary) hypertension[ICD10: I10] Diagnosis: Mixed hyperlipidemia[ICD10: E78.2] Diagnosis: Major depressive disorder, single episode, unspecified[ICD10: F32.9] [facility] MD, [facility] CPT-4: 51663 09/15/2015 59143 EST. PATIENT, LEVEL III Diagnosis: Rash and other nonspecific skin eruption[ICD10: R21] Shila Falk MD, [facility] CPT-4: 57792 05/26/2015 ([id number]) 15454 EST. P ATIENT, LEVEL IV Diagnosis: Essential (primary) hypertension[ICD10: I10] Diagnosis: Foot drop, left foot[ICD10: M21.372] Diagnosis: Sacroiliitis, not elsewhere classified[ICD10: M46.1] hSannon Falk MD, [facility] CPT-4: 17947 04/09/2015 ([id number]) 68643 EST. 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 P ATIENT, LEVEL III Diagnosis: Trochanteric bursitis, left hip[ICD10: M70.62] Diagnosis: Iliotibial band syndrome, left leg[ICD10: M76.32] Diagnosis: Sciatica, left side[ICD10: M54.32] Elizabet Falk MD, [facility] CPT-4: 13691 12/16/2014 ([id number]) 07771 EST. P ATIENT, LEVEL III Diagnosis: Sciatica, left side[ICD10: M54.32] Diagnosis: Sacroiliitis, not elsewhere classified[ICD10: M46.1] Elizabet Falk MD, [facility] CPT-4: 78933 12/09/2014 ([id number]) 29911 EST. 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 Kenalog injection today in the office-start prednisone tomorrow. Patient verbalized understanding of plan. 08/08/2016 Appointment: Elizabet Donaldson WPtel: [facility]5 [facility] [place] [address] (30 min) Complex 08/08/2016 Patient Education: Patient Medication Summary Completed 08/08/2016 Referral: Delia Bernstein WPtel: [address] [place] [address] B [id number] Referral Initiated 08/01/2016 Visit Plan: Vaginal yeast [...] will refer. 06/27/2016 App[facility]ment[facility] [phone] [facility] [place] (30 min) Complex 06/27/2016 Patient Education: Patient Medication Summary Completed 06/27/2016 Care Plan: Referral Order SNOMED-CT : [id number] Pending 06/27/2016 Visit Plan: Left foot, 1st and 2nd toe p ain-suspect fracture of left great toe- will obtain xrays and proceed as indicated. Patient verbalized understanding of plan. 05/23/2016 Appointment: El[facility]ab[facility] Donaldson [facility]Ptel[facility] [phone] [phone] [place] (15 min) Moderate 05/23/2016 Patient Education: [...] probiotics 02/23/2016 Appointment: [phone] [place] (15 min) Moderate 02/23/2016 Patient Education: [...] Summary Completed 09/15/2015 Appointment: Shannon Falk WPtel: [address] [place], [place] [address] (15 min) Moderate 07/29/2015 Visit Plan: Rash [...] - vitamin B12 liquid 2000mcg daily - [facility] sells the liquid b12, folic acid - take daily.metanex 1 capsule twice daily - call office if this seems to help decrease nerve painincrease the night-time dosing of gabapentin to 300mg in AM, Noon, 6pm and 10pm 04/09/2015 Appointment: Shannon Falk WPtel: [facility]5 [facility] (15 min) Moderate 04/09/2015 Patient Education: Patient Medication Summary Completed 04/09/2015 Patient Education: Hypertension Completed 04/09/2015 Visit Plan: Welcome to Medicare Exam - jorge sy we discussed the patients past history, immunizations, [...] in 2012. 03/10/2015 Appointment: Shannon Falk WPtel: [facility] (15 min) Moderate 03/10/2015 Patient Education: Patient Medication Summary Completed 03/10/2015 Care Plan: SCREENINGMAMMOGRAPHYDIGITAL LOINC : 95143-2 Ordered 03/10/2015 Care Plan: Referral Order SNOMED-CT : [id number] Ordered 03/10/2015 Care Plan: Referral Order SNOMED-CT : [id number] Ordered 03/10/2015 Visit Plan: Left hip bursitis/Iliotibial [...] Medication Summary Completed 12/16/2014 Patient Education: .[employer] lliot ibial Band Rehabilitation exercises Completed 12/16/2014 Patient Education: .[facility] Exercise for Sc[place]i ca Completed 12/16/2014 Care Plan: Referral Order SNOMED-CT : [id number] Ordered 12/16/2014 Visit Plan: Sacroiliitis - back [...] Patient Medication Summary Completed 12/09/2014 Patient Education: .[facility] Exercise for [place]i ca Completed 12/09/2014 [...] tunnel brace. 11/13/2014 Appointment: Shannon Falk WPtel: [facility] [address] Follow up 11/13/2014 Patient Education: Patient Medication [...] or stomach pain.ALIGN PROBIOTIC - TAKE DAILY ([employer] OR [facility] -TWO OTHER PROBIOTICS THAT ARE HIGH QUALITY)CIPROFLOXACIN TO BE TAKEN IF NEEDED IF THE DIARRHEA DOES NOT IMPROVE OR IF IT WORSENS. 07/10/2014 Appointment: Shannon Falk WPtel: [phone] [address] [place] (S) New Patient 07/10/2014 Patient Education: Patient Medication Summary Completed 07/10/2014 Patient Education: Hypertension Completed 07/10/2014 Referral: Darci Spann Referral Relationship Referral: External, Ordering Provider Referral Appointment Requested Referral: Delia Bernstein WPtel: [phone] [place] [address] Referral Initiated Referral: External, Ordering Provider Referral [...] is finished, refill the 10mg pill at [facility]. carpal tunnel brace . Hypertension [...] stomach pain. ALIGN PROBIOTIC - TAKE DAILY ([employer] OR [employer] -TWO OTHER PROBIOTICS THAT ARE HIGH QUALITY) [...] vitamin B12 liquid 2 000mcg daily - [facility] sells the liquid b12 folic acid - [...] - vitamin B12 liquid 2000mcg daily - [facility] sells the liquid b12, folic acid - [...]
--- OUTSIDE RECORDS SUMMARY | 2019-06-07 16:29 | XMS REPORT | CCD ---
Author Author Dalila Falk Organization [facility] Address [address] [place] [address] Phone Care Team Providers Care Concession Cashier Name Role Phone PP Unavailable CCM Unavailable Summary Purpose Interface Exchange Insurance Providers Payer name Policy type / Coverage type Covered alliance party ID Effective Begin Date Effective End Date WPS Medicare Part B Medicare Part B [id number] Unknown [employer] Insurance M edicare Part B [id number] Unkn own Family history Brother Diagnosis Age [...] Unknown 2 07/10/[address]: [id number] Has never smoked or chewed tobacco 07/10/2014 [...] Date Stop Date Sta tus Fill Instructions Kenalog 40 mg/mL [place] pension for injection RxNorm: 9452806 1 Milliliter(s) Inj 08/08/2016 08/08/2016 In active prednisone 10 mg tab lets in a dose pack RxNorm: 733066 1 Tablet(s) PO UD 08/08/2016 08/13/2016 Ac tive 6-5-4-3-2-1 prednisone 10 mg tab lets in a dose pack RxNorm: 470189 1 Tablet(s) PO UD 08/08/2016 08/07/2016 In active Diflucan 150 mg tablet RxNorm: 289864 1 Tablet(s) PO daily 06/27/2016 07/10/2016 Inactive Synthroid 75 mcg tablet RxNorm: 198084 TAKE 1 TABLET BY MOUTH DAILY 06/16/2016 01/11/2017 Active Generic For:*SYNTHROID 0.075MG TAB pt wo uld like a 90 day supply N O T I C E Last quantity doesn't match original quantity hydrocodone 7.5 mg-a cetaminophen 325 mg tablet RxNorm: 537293 1-2 Tablet(s) PO Q4H as needed 06/06/2016 No Stop Date Active citalopram 20 mg tablet RxNorm: 296299 TAKE ONE (1) TABLET BY MOUTH DAILY 05/18/2016 11/13/2016 Ac tive Generic For:CELEXA 20MG TAB 05/17/2016 8:32:02 AM Celebrex 200 mg capsule RxNorm: 912513 1 Capsule(s) PO daily 05/17/2016 05/11/2017 Active losartan 100 mg tablet RxNorm: 087167 TAKE 1 TABLET BY MOUTH DAILY 05/17/2016 11/12/2016 Active Generic For:COZAAR 100MG TAB 05/17/2016 8:31:51 AM amlodipine 5 mg tablet RxNorm: 153639 1 Tablet(s) PO daily 05/10/2016 11/05/2016 Active Cipro 500 mg tablet RxNorm: 336994 1 Tablet(s) PO BID 05/04/2016 05/03/2016 Inactive Cipro 500 mg tablet RxNorm: 631273 1 Tablet(s) PO BID 05/04/2016 05/13/2016 Inactive Diflucan 150 mg tablet RxNorm: 556521 1 Tablet(s) PO daily 04/18/2016 05/01/2016 Inactive Monistat Soothing Ca re 1.2 % topical gel RxNorm: 2987459 1 Application TOP BI D 03/07/2016 No Stop Date Active Diflucan 150 mg tablet RxNorm: 701096 1 Tablet(s) PO daily 03/07/2016 03/13/2016 Inactive Lipitor 40 mg tablet RxNorm: 487022 Tablet(s) TAKE ONE TABLET BY MOUTH AT BE DTIME 02/23/2016 02/16/2017 Ac tive citalopram 20 mg tablet RxNorm: 442058 TAKE ONE (1) TABLET BY MOUTH DAILY 02/18/2016 05/17/2016 In active Generic For:CELEXA 20MG TAB refill reque st losartan 100 mg tablet RxNorm: 478096 Tablet(s) 1 Tablet, 1 time per Day 02/09/2016 05/16/2016 In active INSURANCE WILL NOT COVER ADELA ANDREWS IED UNTIL OTHER FORMULARIES HAVE BEEN TRIED AND FAILED hydrocodone 7.5 mg-a cetaminophen 325 mg tablet RxNorm: 635551 1-2 Tablet(s) PO Q4H as needed 02/03/2016 06/05/2016 Inactive Synthroid 75 mcg tablet RxNorm: 420190 Tablet(s) TAKE 1 TABLET BY MOUTH DAILY 01/19/2016 06/15/2016 In active Generic For:*SYNTHROID 0.075MG TAB 04/2014 10:00:02 AM N O T I C E PRESCRIPTION PREVIOUSLY AUTHORIZED BY DOCTOR:SWATI BEY prednisone 10 mg tab lets in a dose pack RxNorm: 170812 1 Tablet(s) PO UD 01/07/2016 02/22/2016 In active 6-5-4-3-2-1 amlodipine 10 mg tablet RxNorm: 594212 1 Tablet(s) PO daily 12/07/2015 11/30/2016 Active citalopram 20 mg tablet RxNorm: 423442 TAKE ONE (1) TABLET BY MOUTH DAILY 11/17/2015 02/14/2016 In active Generic For:CELEXA 20MG TAB refill reque st hydrocodone 7.5 mg-a cetaminophen 325 mg tablet RxNorm: 037617 1-2 Tablet(s) PO Q4H as needed 10/08/2015 02/02/2016 Inactive losartan 100 mg tablet RxNorm: 944661 Tablet(s) 1 Tablet, 1 time per Day 2015 02/07/2016 In active INSURANCE WILL NOT COVER BENICAR, [place] DEN IED UNTIL OTHER FORMULARIES HAVE BEEN TRIED AND FAILED citalopram 20 mg tablet RxNorm: 524138 TAKE ONE (1) TABLET BY MOUTH DAILY 08/10/2015 11/07/2015 In active Generic For:CELEXA 20MG TAB 08/10/2015 8:59:58 AM Synthroid 75 mcg tablet RxNorm: 376952 Tablet(s) TAKE 1 TABLET BY MOUTH DAILY 05/26/2015 12/21/2015 In active Generic For:*SYNTHROID 0.075MG TAB 04/2014 10:00:02 AM N O T I C E PRESCRIPTION PREVIOUSLY AUTHORIZED BY DOCTOR:SWATI BEY prednisone 20 mg tablet RxNorm: 260176 2 Tablet(s) PO daily 05/26/2015 05/30/2015 Inactive Lipitor 40 mg tablet RxNorm: 645819 TAKE ONE TABLET BY MOUTH AT BEDTIME 05/14/2015 02/07/2016 In active Generic For:LIPITOR 40MG TAB 05/13/2015 8:26:33 AM N O T I C E PRESCRIPTION PREVIOUSLY AUTHORIZED BY DOCTOR:SWATI BEY hydrocodone 7.5 mg-a cetaminophen 325 mg tablet RxNorm: 802128 1-2 Tablet(s) PO Q4H as needed 05/11/2015 10/07/2015 Inactive Celebrex 200 mg capsule RxNorm: 458895 1 Capsule(s) PO daily 05/07/2015 04/30/2016 Inactive citalopram 20 mg tablet RxNorm: 436094 TAKE ONE (1) TABLET BY MOUTH DAILY 04/27/2015 07/25/2015 In active Generic For:CELEXA 20MG TAB 04/26/2015 7:30:08 PM gabapentin 300 mg ca psule RxNorm: 194943 1 Capsule(s) PO QID 04/09/2015 04/02/2016 Inactive citalopram 20 mg tablet RxNorm: 619582 TAKE ONE (1) TABLET BY MOUTH DAILY 01/26/2015 04/25/2015 In active Generic For:CELEXA 20MG TAB 01/26/2015 8:40:11 AM losartan 100 mg tablet RxNorm: 550185 1 Tablet, 1 time per Day 01/26/2015 03/29/2015 Inactive INSURANCE WILL NOT COVER ADELA ANDREWS DEN IED UNTIL OTHER FORMULARIES HAVE BEEN TRIED AND FAILED hydrocodone 7.5 mg-a cetaminophen 325 mg tablet RxNorm: 065100 1-2 Tablet(s) PO Q4H as needed 01/23/2015 05/10/2015 Inactive Neurontin 100 mg cap almaz RxNorm: 227764 1 Capsule(s) PO TID 01/14/2015 03/09/2015 Inactive Neurontin 100 mg cap almaz RxNorm: 837483 1 Capsule(s) PO TID 01/14/2015 01/13/2015 Inactive Keflex 500 mg capsule RxNorm: 518834 1 Capsule(s) PO TID 01/06/2015 01/05/2015 Inactive Keflex 500 mg capsule RxNorm: 443434 1 Capsule(s) PO TID 01/06/2015 01/12/2015 Inactive hydrocodone 7.5 mg-a cetaminophen 325 mg tablet RxNorm: 193235 1-2 Tablet(s) PO Q4H as needed 12/29/2014 01/22/2015 Inactive Duexis 800 mg-26.6 m g tablet RxNorm: 3229587 1 Tablet(s) PO TID a s needed 12/19/2014 03/29/2015 In active Duexis 800 mg-26.6 m g tablet RxNorm: 7677622 1 Tablet(s) PO TID a s needed 12/19/2014 12/18/2014 In active Kenalog 40 mg/mL [place] pension for injection RxNorm: 0186093 1 Milliliter(s) Inj 12/09/2014 12/09/2014 In active prednisone 10 mg tab lets in a dose pack RxNorm: 376794 1 Tablet(s) PO UD 12/09/2014 12/14/2014 In active 6-5-4-3-2-1 amlodipine 10 mg tablet RxNorm: 178280 1 Tablet(s) PO daily 11/13/2014 11/07/2015 Inactive citalopram 20 mg tablet RxNorm: 277925 TAKE ONE (1) TABLET BY MOUTH DAILY 10/23/2014 01/20/2015 In active Generic For:CELEXA 20MG TAB 10/23/2014 4:32:02 PM N O T I C E PRESCRIPTION PREVIOUSLY AUTHORIZED BY DOCTOR:SWATI BEY hydrocodone 7.5 mg-a cetaminophen 325 mg tablet RxNorm: 922653 1-2 Tablet(s) PO Q4H as needed 10/22/2014 12/28/2014 Inactive Synthroid 75 mcg tablet RxNorm: 135928 TAKE 1 TABLET BY MOUTH DAILY 09/22/2014 04/19/2015 Inactive Generic For:*SYNTHROID 0.075MG TAB 04/2014 10:00:02 AM N O T I C E PRESCRIPTION PREVIOUSLY AUTHORIZED BY DOCTOR:SWATI BEY amlodipine 5 mg tablet RxNorm: 734373 1 Tablet(s) PO daily 08/25/2014 11/12/2014 Inactive Synthroid 75 mcg tablet RxNorm: 043373 1 Tablet(s) PO daily ecept a 1/2 tab on Monday07/11/2014 09/21/2014 Inactive Flonase Allergy Reli ef 50 mcg/actuation nasal spray,suspension RxNorm: 1 [place] NASAL BID 07/10/2014 12/06/2014 Inactive Benicar 20 mg tablet RxNorm: 884953 1 Tablet(s) PO daily No Start Date Active Remicade intravenous RxNorm: 834064 intravenous No Start Date Active Celebrex 200 mg capsule RxNorm: 118179 1 Capsule(s) PO daily No Start Date 05/06/2015 Inactive Arava 20 mg tablet RxNorm: 743660 1 Tablet(s) PO daily No Start Date Active methotrexate sodium 2.5 mg tablet RxNorm: 811707 3 Tablet(s) PO weekly No Start Date 04/08/2015 Inactive gabapentin 300 mg ca psule RxNorm: 323569 1 Capsule(s) PO TID No Start Date 04/08/2015 Inactive Plaquenil 200 mg tablet RxNorm: 401480 1 Tablet(s) PO BID No Start Date 05/22/2016 Inactive losartan 100 mg tablet RxNorm: 315876 1 Tablet(s) PO daily No Start Date 01/25/2015 Inactive amlodipine 5 mg tablet RxNorm: 927786 1 Tablet(s) PO daily No Start Date 08/24/2014 Inactive citalopram 20 mg tablet RxNorm: 555122 1 Tablet(s) PO daily No Start Date 10/22/2014 Inactive Synthroid 88 mcg tablet RxNorm: 566724 1 Tablet(s) PO daily No Start Date 07/09/2014 Inactive Lipitor 40 mg tablet RxNorm: 339016 1 Tablet(s) PO daily No Start Date 05/13/2015 Inactive Synthroid 75 mcg tablet RxNorm: 914813 1 Tablet(s) PO daily No Start Date 07/10/2014 Inactive hydrocodone 7.5 mg-a cetaminophen 325 mg tablet RxNorm: 067937 Tablet(s) PO as neede d No Start Date 10/21/2014 Inactive Medication Administered Medication Codes Instruc tions Start Date Status Kenalog 40 mg/mL suspension for injection RxNorm: 1496955 1Milliliter 08/08/2016 A ctive Kenalog 40 mg/mL suspension for injection RxNorm: 6636942 1Milliliter 12/09/2014 N o longer Active Immunizations [...] NO Growth Day 2 06/29 Culture Urine [id number] URI NE CULTURE SEE NOTES 04/22/2016 Culture Urine [id number] Con tinued Results 04/22/2016 Urine Culture Ucult Comp lete >100,000 col/ml aerobic grow th sent to ref lab 04/20/2016 Comp Metabolic Swp872 NA 137 mEq/L 02/10/2016 Comp Metabolic Wwj382 K 4.1 mEq/L 02/10/2016 Comp Metabolic Vpz844 CL 102 mEq/L 02/10/2016 Comp Metabolic Lek487 CO2 28.0 mEq/L 02/10/2016 Comp Metabolic Pai944 AN ION GAP 11 02/10/2016 Comp Metabolic Jxh313 GL UCOSE 104 mg/dL 02/10/2016 Comp Metabolic Dym255 Cr eat 0.7 mg/dL 02/10/2016 Comp Metabolic Mgw957 eG FR 83 ml/min/1.73m2 02/09 Comp Metabolic Kfu485 BUN 14 mg/dL 02/10/2016 Comp Metabolic Dbk375 B/ C Ratio 18.9 Ratio 02/10/2016 Comp Metabolic Zaw858 CA LCIUM 9.7 mg/dL 02/10/2016 Comp Metabolic Hrk538 AL K PHOS 121 U/L 02/10/2016 Comp Metabolic Gzo060 T(SGOT) 19 U/L 02/10/2016 Comp Metabolic Yzt830 AL T(SGPT) 13 U/L 02/10/2016 Comp Metabolic Vky621 BI LI T 0.5 mg/dL 02/10/2016 Comp Metabolic Rtj027 AL BUMIN 4.3 g/dL 02/10/2016 Comp Metabolic Zlt711 TP RO 6.8 g/dL 02/10/2016 Comp Metabolic Ydi885 GL OB 2.5 g/dL 02/10/2016 Comp Metabolic Vmw450 A/ G Ratio 1.7 Ratio 02/10/2016 Comp Metabolic Elx110 Os mo 275 mOsmo 02/10/2016 Lipid Ord30 CHOL 229 mg/dL 02/10/2016 Lipid Ord30 HDL 59.0 mg/dl 02/10/2016 Lipid Ord30 TRIG 252 mg/dL 02/10/2016 Lipid Ord30 LDL 120 mg/dL 02/10/2016 Lipid Ord30 C/HDL 3.9 Ratio 02/10/2016 Free T4 Ysn352 FREE T4 0.87 ng/dL 02/10/2016 Tsh Ord6 [...] 29.2 pg 02/10/2016 Cbc With Differential Ord2 Sampson% 18.6 % 02/10/2016 Cbc With Differential Ord2 [...] 1.81 K/ul 02/10/2016 Cbc With Differential Ord2 Sampson ABS# 1.1 K/ul 02/10/2016 Cbc With Differential Ord2 Eos ABS# 0.1 K/ul 02/10/2016 Cbc With Differential Ord2 Baso ABS# 0.1 K/ul 02/10/2016 Tsh Ord6 hTSH II 0.85 uIU/mL 04/02/2015 Lipid Ord30 CHOL 207 mg/dL 04/02/2015 Lipid Ord30 HDL 68.0 mg/dl 04/02/2015 Lipid Ord30 TRIG 193 mg/dL 04/02/2015 Lipid Ord30 LDL 100 mg/dL 04/02/2015 Lipid Ord30 C/HDL 3.0 Ratio 04/02/2015 Free T4 Jma083 FREE T4 1.09 ng/dL 04/02/2015 Free T4 Hko898 FREE T4 0.82 ng/dL 10/15/2014 Tsh Ord6 [...] Date TRIAMCINOLONE ACET I [place] NOS CPT-4: P4802Yskxsuo 08/08/2016 PRESCRIP TRANSMIT A ERX SY CPT-4: I6310Ubjaryc 08/08/2016 PRESCRIP TRANSMIT A ERX SY CPT-4: Y6625Htospoj 04/18/2016 TRIAMCINOLONE ACET I [place] NOS CPT-4: P9357Opxvmtw 05/26/2015 PRESCRIP TRANSMIT A ERX SY CPT-4: Y0882Wnbuyhe 05/26/2015 PRESCRIP TRANSMIT A ERX SY CPT-4: S0430Eogerhy 04/09/2015 INITIAL PREVENTIVE E XAM CPT-4: R2591Yjcpawz 03/30/2015 TRIAMCINOLONE ACET I [place] NOS CPT-4: A1877Yjkrmao 12/09/2014 PRESCRIP TRANSMIT A ERX SY CPT-4: D3414Qbnxkkf 12/09/2014 PRESCRIP TRANSMIT A ERX SY CPT-4: M5360Yuqqvft 11/13/2014 Vital Signs Date Vital 08/08/2016 Blood Pressure 1: 142/76 Code: 8480-6 BMI: 29.9 Code: 74278-8 Heart Rate 1: 80 bpm Height: 5'4" SpO2: 94% Weight: 174 lbs 06/27/2016 Blood Pressure 1: 156/72 Code: 8480-6 BMI: 30.6 Code: 66575-2 Heart Rate 1: 78 bpm Height: 5'4" SpO2: 95% Weight: 178 lbs 05/23/2016 Blood Pressure 1: 146/84 Code: 8480-6 Heart Rate 1: 66 bpm Height: 5'4" SpO2: 94% 04/18/2016 Blood Pressure 1: 148/84 Code: 8480-6 BMI: 30.2 Code: 97158-3 Heart Rate 1: 81 bpm Height: 5'4" SpO2: 97% Weight: 176 lbs 03/07/2016 Blood Pressure 1: 130/78 Code: 8480-6 BMI: 30.0 Code: 02322-1 Heart Rate 1: 85 bpm Height: 5'4" SpO2: 96% Weight: 175 lbs 02/23/2016 Blood Pressure 1: 140/78 Code: 8480-6 BMI: 29.7 Code: 10040-4 Heart Rate 1: 74 bpm Height: 5'4" SpO2: 95% Weight: 173 lbs 09/15/2015 Blood Pressure 1: 140/88 Code: 8480-6 BMI: 29.4 Code: 36538-1 Heart Rate 1: 81 bpm Height: 5'4" SpO2: 97% Weight: 171 lbs 8 oz 05/26/2015 Blood Pressure 1: 150/80 Code: 8480-6 BMI: 31.6 Code: 88157-6 Heart Rate 1: 70 bpm Height: 5'4" SpO2: 96% Weight: 184 lbs 04/09/2015 Blood Pressure 1: 136/74 Code: 8480-6 BMI: 31.4 Code: 21205-0 Heart Rate 1: 91 bpm Height: 5'4" SpO2: 94% Weight: 183 lbs 03/30/2015 Blood Pressure 1: 130/72 Code: 8480-6 BMI: 30.9 Code: 40697-1 Heart Rate 1: 80 bpm Height: 5'4" SpO2: 97% Waist Measure (cm): 102 cm Weight: 180 lbs 03/10/2015 Blood Pressure 1: 152/80 Code: 8480-6 BMI: 31.1 Code: 70601-8 Heart Rate 1: 66 bpm Height: 5'4" SpO2: 98% Weight: 181 lbs 12/16/2014 Blood Pressure 1: 132/88 Code: 8480-6 Blood Pressure 1: 132/88 Code: 8480-6 Heart Rate 1: 88 bpm SpO2: 98% Weight: 183 lbs 12/09/2014 Blood Pressure 1: 140/82 Code: 8480-6 BMI: 31.2 Code: 55588-1 Heart Rate 1: 105 bpm Height: 5'4" SpO2: 93% Weight: 182 lbs 11/13/2014 Blood Pressure 1: 148/88 Code: 8480-6 BMI: 31.8 Code: 19077-0 Heart Rate 1: 54 bpm Height: 5'4" SpO2: 98% Weight: 185 lbs 07/10/2014 Blood Pressure 1: 144/96 Code: 8480-6 BMI: 31.4 Code: 90989-3 Heart Rate 1: 99 bpm Height: 5'4" [...] Encounters Encounter Performer Loca tion Codes Date ([id number]) [id number] EST. P ATIENT, LEVEL III Diagnosis: Pleurisy[ICD10: R09.1] Elizabet Falk MD, [facility] CPT-4: 82575 08/08/2016 [id number] EST. PATIENT, LEVEL III Diagnosis: Dysuria[ICD10: R30.0] Diagnosis: Other pruritus[ICD10: L29.8] [facility] CPT-4: 17681 06/27/2016 ([id number] 96110 EST. P ATIENT, LEVEL III Diagnosis: Pain in left foot[ICD10: M79.672] Diagnosis: Pain in left toe(s)[ICD10: M79.675] [facility] CPT-4: 96933 05/23/2016 [id number] EST. PATIENT, LEVEL III Diagnosis: Candidiasis of vulva and vagina[ICD10: B37.3] Diagnosis: Dysuria[ICD10: R30.0] [facility] CPT-4: 12279 04/18/2016 [id number] EST. PATIENT, LEVEL III Diagnosis: Other pruritus[ICD10: L29.8] Diagnosis: Candidiasis of vulva and vagina[ICD10: B37.3] [facility] CPT-4: 98334 03/07/[id number]) [id number] EST. P ATIENT, LEVEL IV Diagnosis: Essential (primary) hypertension[ICD10: I10] Diagnosis: Pain in left hip[ICD10: M25.552] Diagnosis: Pain in right hip[ICD10: M25.551] Diagnosis: Functional diarrhea[ICD10: K59.1] Diagnosis: Atrophy of thyroid (acquired)[ICD10: E03.4] [facility] CPT-4: 72484 02/23/2016 ([id number]) 31810 EST. P ATIENT, LEVEL IV Diagnosis: Essential (primary) hypertension[ICD10: I10] Diagnosis: Mixed hyperlipidemia[ICD10: E78.2] Diagnosis: Major depressive disorder, single episode, unspecified[ICD10: F32.9] [facility] MD, [facility] CPT-4: 68157 09/15/2015 [id number] EST. PATIENT, LEVEL III Diagnosis: Rash and other nonspecific skin eruption[ICD10: R21] Shila Falk MD, [facility] CPT-4: 20797 05/26/2015 ([id number]) 69221 EST. P ATIENT, LEVEL IV Diagnosis: Essential (primary) hypertension[ICD10: I10] Diagnosis: Foot drop, left foot[ICD10: M21.372] Diagnosis: Sacroiliitis, not elsewhere classified[ICD10: M46.1] [facility] MD, [facility] CPT-4: 35215 04/09/2015 ([id number]) 78897 EST. 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 CPT-4: 79848 03/10/2015 ([id number]) [id number] EST. P ATIENT, LEVEL III Diagnosis: Trochanteric bursitis, left hip[ICD10: M70.62] Diagnosis: Iliotibial band syndrome, left leg[ICD10: M76.32] Diagnosis: Sciatica, left side[ICD10: M54.32] Elizabet Falk MD, [facility] CPT-4: 54364 12/16/2014 ([id number]) 50972 EST. P ATIENT, LEVEL III Diagnosis: Sciatica, left side[ICD10: M54.32] Diagnosis: Sacroiliitis, not elsewhere classified[ICD10: M46.1] [facility] CPT-4: 19760 12/09/2014 ([id number] 89436 EST. 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] Diagnosis: Carpal tunnel syndrome, unspecified upper limb[ICD10: G56.00] [facility] CPT-4: 60744 11/13/2014 ([id number]) [facility] LEVEL 4 Diagnosis: ESSENTIAL HYPERTENSION[ICD9: 401.9] Diagnosis: HYPERLIPIDEMIA[ICD9: 272.4] Diagnosis: DEPRESSIVE DISORDER NEC[ICD9: 311] Diagnosis: Diarrhea[ICD9: 787.91] [facility] CPT-4: 96592 07/10/2014 Plan of Care Planned Activity Notes C odes Status Date Patient Education: Patient Medication Summary Completed 08/08/2016 Referral: Delia Bernstein WPtel: [address] [place], [place] [phone] Referral Initiated 08/01/2016 Appointment: Shila Deluna WPtel: [facility] [place] [facility] [place] [facility] (30 min) Complex 06/27/2016 Patient Education: Patient Medication Summary Completed 06/27/2016 Care Plan: Referral Order SNOMED-CT : [id number] Pending 06/27/2016 Appointment: Elizabet Donaldson WPtel: [facility] [place] [facility] [place] [phone] (15 min) Moderate 05/23/2016 Patient Education: Patient Medication Summary Completed 05/23/2016 Patient Education: Patient Medication Summary Completed 04/18/2016 Patient Education: Patient Medication Summary Completed 03/07/2016 Appointment: Shannon Falk WPtel: [facility] [place] [facility] [place] [facility] [place] (15 min) Moderate 02/23/2016 Patient Education: Patient Medication Summary Completed 02/23/2016 Patient Education: Hypertension Completed 02/23/2016 Patient Education: Patient Medication Summary Completed 09/15/2015 Appointment: Shannon Falk WPtel: [facility] [place] [facility] [place] [facility] (15 min) Moderate 07/29/2015 Appointment: (15 min) Moderate 05/26/2015 Patient Education: Patient Medication Summary Completed 05/26/2015 Patient Education: Obesity Completed 05/26/2015 Appointment: Shannon Falk WPtel: [facility] [place] [facility] [place] [phone] (15 min) Moderate 04/09/2015 Patient Education: Patient Medication Summary Completed 04/09/2015 Patient Education: Hypertension Completed 04/09/2015 Patient Education: Patient Medication Summary Completed 03/30/2015 Referral: Darci Spann Referral Completed 03/16/2015 Appointment: Shannon Falk WPtel: [facility] [place] [facility] [place] [facility] (15 min) Moderate 03/10/2015 Patient Education: Patient Medication Summary Completed 03/10/2015 Care Plan: SCREENINGMAMMOGRAPHYDIGITAL LOINC : 24375-4 Ordered 03/10/2015 Care Plan: Referral Order SNOMED-CT : [id number] Ordered 03/10/2015 Care Plan: Referral Order SNOMED-CT : [id number] Ordered 03/10/2015 Appointment: (30 min) Complex 12/16/2014 Patient Education: Patient Medication Summary Completed 12/16/2014 Patient Education: .Amazing charts lliot ibial Band Rehabilitation exercises Completed 12/16/2014 Patient Education: .Amazing charts Exercise for Sciati ca Completed 12/16/2014 Care Plan: Referral Order SNOMED-CT : [id number] Ordered 12/16/2014 Appointment: (15 min) Moderate 12/09/2014 Patient Education: Patient Medication Summary Completed 12/09/2014 Patient Education: .Amazing charts Exercise for Sciati ca Completed 12/09/2014 Appointment: Shannon Falk WPtel: [facility] [place] [facility] [place] [facility] Follow up 11/13/2014 Patient Education: Patient Medication Summary Completed 11/13/2014 Patient Education: Hypertension Completed 11/13/2014 Appointment: Shannon Falk WPtel: [facility] [place] [facility] [place] [facility] [place] New Patient 07/10/2014 Patient Education: Patient Medication Summary Completed 07/10/2014 Patient Education: Hypertension Completed 07/10/2014 Referral: Darci Spann Referral Relationship Referral: External, Ordering Provider Referral Appointment Requested Ref[facility] [phone] [facility] Referral Initiated Referral: External, Ordering Provider Referral Completed Instructions No Instructions
[2019-06-07 16:30] VITALS: BP 166/89
--- OUTSIDE RECORDS SUMMARY | 2019-06-07 16:30 | XMS REPORT | CCD ---
Author Author Dalila Falk Organization [facility] Address [address] [place] [address] Phone Care Team Providers Care Crm Marketing Executive Name Role Phone PP Unavailable CCM Unavailable Summary Purpose Interface Exchange Insurance Providers Payer name Policy type / Coverage type Covered green party ID Effective Begin Date Effective End Date WPS Medicare Part B Medicare Part B [id number] Unknown [place] [employer] Home Life Insurance M edicare Part B [id number] Unkn own Family history Brother Diagnosis Age [...] Unknown 2 07/10/[address]: [id number] Has never smoked or chewed tobacco 07/10/2014 [...] 40 mg/mL [place] pension for injection RxNorm: 3765104 1 Milliliter(s) Inj 08/08/2016 08/08/2016 In active prednisone 10 mg tab lets in a dose pack RxNorm: 831049 1 Tablet(s) PO UD 08/08/2016 08/13/2016 Ac tive Diflucan 150 mg tablet RxNorm: 300843 1 Tablet(s) PO daily 06/27/2016 07/10/2016 Inactive Synthroid 75 mcg tablet RxNorm: 618409 TAKE 1 TABLET BY MOUTH DAILY 06/16/2016 01/11/2017 Active Generic For:*SYNTHROID 0.075MG TAB pt wo uld like a 90 day supply N O T I C E Last quantity doesn't match original quantity hydrocodone 7.5 mg-a cetaminophen 325 mg tablet RxNorm: 111333 1-2 Tablet(s) PO Q4H as needed 06/06/2016 No Stop Date Active citalopram 20 mg tablet RxNorm: 360894 TAKE ONE (1) TABLET BY MOUTH DAILY 05/18/2016 11/13/2016 Ac tive Generic For:CELEXA 20MG TAB 05/17/2016 8:32:02 AM Celebrex 200 mg capsule RxNorm: 732855 1 Capsule(s) PO daily 05/17/2016 05/11/2017 Active losartan 100 mg tablet RxNorm: 812636 TAKE 1 TABLET BY MOUTH DAILY 05/17/2016 11/12/2016 Active Generic For:COZAAR 100MG TAB 05/17/2016 8:31:51 AM amlodipine 5 mg tablet RxNorm: 536114 1 Tablet(s) PO daily 05/10/2016 11/05/2016 Active Cipro 500 mg tablet RxNorm: 212978 1 Tablet(s) PO BID 05/04/2016 05/03/2016 Inactive Cipro 500 mg tablet RxNorm: 172491 1 Tablet(s) PO BID 05/04/2016 05/13/2016 Inactive Diflucan 150 mg tablet RxNorm: 438649 1 Tablet(s) PO daily 04/18/2016 05/01/2016 Inactive Monistat Soothing Ca re 1.2 % topical gel RxNorm: 5854261 1 Application TOP BI D 03/07/2016 No Stop Date Active Diflucan 150 mg tablet RxNorm: 035503 1 Tablet(s) PO daily 03/07/2016 03/13/2016 Inactive Lipitor 40 mg tablet RxNorm: 375376 Tablet(s) TAKE ONE TABLET BY MOUTH AT BE COUNTS INCLUDE 234 BEDS AT THE [facility] 02/23/2016 02/16/2017 Ac tive citalopram 20 mg tablet RxNorm: 176088 TAKE ONE (1) TABLET BY MOUTH DAILY 02/18/2016 05/17/2016 In active Generic For:CELEXA 20MG TAB refill reque st losartan 100 mg tablet RxNorm: 857235 Tablet(s) 1 Tablet, 1 time per Day 02/09/2016 05/16/2016 In active INSURANCE WILL NOT COVER ADELA ANDREWS IED UNTIL OTHER FORMULARIES HAVE BEEN TRIED AND FAILED hydrocodone 7.5 mg-a cetaminophen 325 mg tablet RxNorm: 986118 1-2 Tablet(s) PO Q4H as needed 02/03/2016 06/05/2016 Inactive Synthroid 75 mcg tablet RxNorm: 264420 Tablet(s) TAKE 1 TABLET BY MOUTH DAILY 01/19/2016 06/15/2016 In active Generic For:*SYNTHROID 0.075MG TAB 04/2014 10:00:02 AM N O T I C E PRESCRIPTION PREVIOUSLY AUTHORIZED BY DOCTOR:SWATI BEY prednisone 10 mg tab lets in a dose pack RxNorm: 596686 1 Tablet(s) PO UD 01/07/2016 02/22/2016 In active 6-5-4-3-2-1 amlodipine 10 mg tablet RxNorm: 613977 1 Tablet(s) PO daily 12/07/2015 11/30/2016 Active citalopram 20 mg tablet RxNorm: 439645 TAKE ONE (1) TABLET BY MOUTH DAILY 11/17/2015 02/14/2016 In active Generic For:CELEXA 20MG TAB refill reque st hydrocodone 7.5 mg-a cetaminophen 325 mg tablet RxNorm: 245168 1-2 Tablet(s) PO Q4H as needed 10/08/2015 02/02/2016 Inactive losartan 100 mg tablet RxNorm: 727455 Tablet(s) 1 Tablet, 1 time per Day 2015 02/07/2016 In active INSURANCE WILL NOT COVER ADELA ANDREWS IED UNTIL OTHER FORMULARIES HAVE BEEN TRIED AND FAILED citalopram 20 mg tablet RxNorm: 182485 TAKE ONE (1) TABLET BY MOUTH DAILY 08/10/2015 11/07/2015 In active Generic For:CELEXA 20MG TAB 08/10/2015 8:59:58 AM Synthroid 75 mcg tablet RxNorm: 300531 Tablet(s) TAKE 1 TABLET BY MOUTH DAILY 05/26/2015 12/21/2015 In active Generic For:*SYNTHROID 0.075MG TAB 04/2014 10:00:02 AM N O T I C E PRESCRIPTION PREVIOUSLY AUTHORIZED BY DOCTOR:SWATI BEY prednisone 20 mg tablet RxNorm: 682515 2 Tablet(s) PO daily 05/26/2015 05/30/2015 Inactive Lipitor 40 mg tablet RxNorm: 840064 TAKE ONE TABLET BY MOUTH AT BEDTIME 05/14/2015 02/07/2016 In active Generic For:LIPITOR 40MG TAB 05/13/2015 8:26:33 AM N O T I C E PRESCRIPTION PREVIOUSLY AUTHORIZED BY DOCTOR:SWATI BEY hydrocodone 7.5 mg-a cetaminophen 325 mg tablet RxNorm: 345031 1-2 Tablet(s) PO Q4H as needed 05/11/2015 10/07/2015 Inactive Celebrex 200 mg capsule RxNorm: 414542 1 Capsule(s) PO daily 05/07/2015 04/30/2016 Inactive citalopram 20 mg tablet RxNorm: 843993 TAKE ONE (1) TABLET BY MOUTH DAILY 04/27/2015 07/25/2015 In active Generic For:CELEXA 20MG TAB 04/26/2015 7:30:08 PM gabapentin 300 mg ca psule RxNorm: 644159 1 Capsule(s) PO QID 04/09/2015 04/02/2016 Inactive citalopram 20 mg tablet RxNorm: 829796 TAKE ONE (1) TABLET BY MOUTH DAILY 01/26/2015 04/25/2015 In active Generic For:CELEXA 20MG TAB 01/26/2015 8:40:11 AM losartan 100 mg tablet RxNorm: 404922 1 Tablet, 1 time per Day 01/26/2015 03/29/2015 Inactive INSURANCE WILL NOT COVER ADELA ANDREWS UNTIL OTHER FORMULARIES HAVE BEEN TRIED AND FAILED hydrocodone 7.5 mg-a cetaminophen 325 mg tablet RxNorm: 177552 1-2 Tablet(s) PO Q4H as needed 01/23/2015 05/10/2015 Inactive Neurontin 100 mg cap almaz RxNorm: 542655 1 Capsule(s) PO TID 01/14/2015 03/09/2015 Inactive Neurontin 100 mg cap almaz RxNorm: 172265 1 Capsule(s) PO TID 01/14/2015 01/13/2015 Inactive Keflex 500 mg capsule RxNorm: 610888 1 Capsule(s) PO TID 01/06/2015 01/05/2015 Inactive Keflex 500 mg capsule RxNorm: 379296 1 Capsule(s) PO TID 01/06/2015 01/12/2015 Inactive hydrocodone 7.5 mg-a cetaminophen 325 mg tablet RxNorm: 703119 1-2 Tablet(s) PO Q4H as needed 12/29/2014 01/22/2015 Inactive Duexis 800 mg-26.6 m g tablet RxNorm: 8983022 1 Tablet(s) PO TID a s needed 12/19/2014 03/29/2015 In active Duexis 800 mg-26.6 m g tablet RxNorm: 1933060 1 Tablet(s) PO TID a s needed 12/19/2014 12/18/2014 In active Kenalog 40 mg/mL [place] pension for injection RxNorm: 4604078 1 Milliliter(s) Inj 12/09/2014 12/09/2014 In active prednisone 10 mg tab lets in a dose pack RxNorm: 937234 1 Tablet(s) PO UD 12/09/2014 12/14/2014 In active 6-5-4-3-2-1 amlodipine 10 mg tablet RxNorm: 219608 1 Tablet(s) PO daily 11/13/2014 11/07/2015 Inactive citalopram 20 mg tablet RxNorm: 803293 TAKE ONE (1) TABLET BY MOUTH DAILY 10/23/2014 01/20/2015 In active Generic For:CELEXA 20MG TAB 10/23/2014 4:32:02 PM N O T I C E PRESCRIPTION PREVIOUSLY AUTHORIZED BY DOCTOR:SWATI BEY hydrocodone 7.5 mg-a cetaminophen 325 mg tablet RxNorm: 707063 1-2 Tablet(s) PO Q4H as needed 10/22/2014 12/28/2014 Inactive Synthroid 75 mcg tablet RxNorm: 250487 TAKE 1 TABLET BY MOUTH DAILY 09/22/2014 04/19/2015 Inactive Generic For:*SYNTHROID 0.075MG TAB 04/2014 10:00:02 AM N O T I C E PRESCRIPTION PREVIOUSLY AUTHORIZED BY DOCTOR:SWATI BEY amlodipine 5 mg tablet RxNorm: 066729 1 Tablet(s) PO daily 08/25/2014 11/12/2014 Inactive Synthroid 75 mcg tablet RxNorm: 851018 1 Tablet(s) PO daily ecept a 1/2 tab on Monday07/11/2014 09/21/2014 Inactive Flonase Allergy Reli ef 50 mcg/actuation nasal spray,suspension RxNorm: 1 [place] NASAL BID 07/10/2014 12/06/2014 Inactive Benicar 20 mg tablet RxNorm: 407363 1 Tablet(s) PO daily No Start Date Active Remicade intravenous RxNorm: 923540 intravenous No Start Date Active Celebrex 200 mg capsule RxNorm: 486082 1 Capsule(s) PO daily No Start Date 05/06/2015 Inactive Arava 20 mg tablet RxNorm: 466093 1 Tablet(s) PO daily No Start Date Active methotrexate sodium 2.5 mg tablet RxNorm: 309283 3 Tablet(s) PO weekly No Start Date 04/08/2015 Inactive gabapentin 300 mg ca psule RxNorm: 163530 1 Capsule(s) PO TID No Start Date 04/08/2015 Inactive Plaquenil 200 mg tablet RxNorm: 801950 1 Tablet(s) PO BID No Start Date 05/22/2016 Inactive losartan 100 mg tablet RxNorm: 001136 1 Tablet(s) PO daily No Start Date 01/25/2015 Inactive amlodipine 5 mg tablet RxNorm: 486573 1 Tablet(s) PO daily No Start Date 08/24/2014 Inactive citalopram 20 mg tablet RxNorm: 543674 1 Tablet(s) PO daily No Start Date 10/22/2014 Inactive Synthroid 88 mcg tablet RxNorm: 477728 1 Tablet(s) PO daily No Start Date 07/09/2014 Inactive Lipitor 40 mg tablet RxNorm: 334827 1 Tablet(s) PO daily No Start Date 05/13/2015 Inactive Synthroid 75 mcg tablet RxNorm: 541267 1 Tablet(s) PO daily No Start Date 07/10/2014 Inactive hydrocodone 7.5 mg-a cetaminophen 325 mg tablet RxNorm: 419152 Tablet(s) PO as neede d No Start Date 10/21/2014 Inactive Medication Administered Medication Codes Instruc tions Start Date Status Kenalog 40 mg/mL suspension for injection RxNorm: 6289743 1Milliliter 08/08/2016 A ctive Kenalog 40 mg/mL suspension for injection RxNorm: 4291330 1Milliliter 12/09/2014 N o longer Active Immunizations [...] NO Growth Day 2 06/29 Culture Urine [id number] URI NE CULTURE SEE NOTES 04/22/2016 Culture Urine [id number] Con tinued Results 04/22/2016 Urine Culture Ucult Comp lete >100,000 col/ml aerobic grow th sent to ref lab 04/20/2016 Comp Metabolic Frg481 NA 137 mEq/L 02/10/2016 Comp Metabolic Ask149 K 4.1 mEq/L 02/10/2016 Comp Metabolic Wbs001 CL 102 mEq/L 02/10/2016 Comp Metabolic Nfi335 CO2 28.0 mEq/L 02/10/2016 Comp Metabolic Ejq023 AN ION GAP 11 02/10/2016 Comp Metabolic Gzl622 GL UCOSE 104 mg/dL 02/10/2016 Comp Metabolic Exa242 Cr eat 0.7 mg/dL 02/10/2016 Comp Metabolic Ghj563 eG FR 83 ml/min/1.73m2 02/09 Comp Metabolic Lie514 BUN 14 mg/dL 02/10/2016 Comp Metabolic Xus929 B/ C Ratio 18.9 Ratio 02/10/2016 Comp Metabolic Rwt485 CA LCIUM 9.7 mg/dL 02/10/2016 Comp Metabolic Xds396 AL K PHOS 121 U/L 02/10/2016 Comp Metabolic Cck238 T(SGOT) 19 U/L 02/10/2016 Comp Metabolic Uow896 AL T(SGPT) 13 U/L 02/10/2016 Comp Metabolic Irk676 BI LI T 0.5 mg/dL 02/10/2016 Comp Metabolic Xub526 AL BUMIN 4.3 g/dL 02/10/2016 Comp Metabolic Gek662 TP RO 6.8 g/dL 02/10/2016 Comp Metabolic Zsp236 GL OB 2.5 g/dL 02/10/2016 Comp Metabolic Pvf012 A/ G Ratio 1.7 Ratio 02/10/2016 Comp Metabolic Wxj263 Os mo 275 mOsmo 02/10/2016 Lipid Ord30 CHOL 229 mg/dL 02/10/2016 Lipid Ord30 HDL 59.0 mg/dl 02/10/2016 Lipid Ord30 TRIG 252 mg/dL 02/10/2016 Lipid Ord30 LDL 120 mg/dL 02/10/2016 Lipid Ord30 C/HDL 3.9 Ratio 02/10/2016 Free T4 Inm158 FREE T4 0.87 ng/dL 02/10/2016 Tsh Ord6 [...] 29.2 pg 02/10/2016 Cbc With Differential Ord2 Foster% 18.6 % 02/10/2016 Cbc With Differential Ord2 [...] 1.81 K/ul 02/10/2016 Cbc With Differential Ord2 Foster ABS# 1.1 K/ul 02/10/2016 Cbc With Differential Ord2 Eos ABS# 0.1 K/ul 02/10/2016 Cbc With Differential Ord2 Baso ABS# 0.1 K/ul 02/10/2016 Tsh Ord6 hTSH II 0.85 uIU/mL 04/02/2015 Lipid Ord30 CHOL 207 mg/dL 04/02/2015 Lipid Ord30 HDL 68.0 mg/dl 04/02/2015 Lipid Ord30 TRIG 193 mg/dL 04/02/2015 Lipid Ord30 LDL 100 mg/dL 04/02/2015 Lipid Ord30 C/HDL 3.0 Ratio 04/02/2015 Free T4 Yoh506 FREE T4 1.09 ng/dL 04/02/2015 Free T4 Ieb187 FREE T4 0.82 ng/dL 10/15/2014 Tsh Ord6 [...] dorsiflexors 04/09/2015 weak Full Exam - General 1995 Musculoskeletal [...] Date TRIAMCINOLONE ACET I [place] NOS CPT-4: I0438Jbtmkjw 08/08/2016 PRESCRIP TRANSMIT A ERX SY CPT-4: X1687Niglvcs 08/08/2016 PRESCRIP TRANSMIT A ERX SY CPT-4: P1555Mwgqgpo 04/18/2016 TRIAMCINOLONE ACET I [place] NOS CPT-4: C5948Zfkobts 05/26/2015 PRESCRIP TRANSMIT A ERX SY CPT-4: M5818Jflhuup 05/26/2015 PRESCRIP TRANSMIT A ERX SY CPT-4: X9876Zhmcinf 04/09/2015 INITIAL PREVENTIVE E XAM CPT-4: H5327Sjvwubs 03/30/2015 TRIAMCINOLONE ACET I [place] NOS CPT-4: J3927Iyoonbd 12/09/2014 PRESCRIP TRANSMIT A ERX SY CPT-4: F1447Gdaamxg 12/09/2014 PRESCRIP TRANSMIT A ERX SY CPT-4: D0167Jcmupew 11/13/2014 Vital Signs Date Vital 08/08/2016 Blood Pressure 1: 142/76 Code: 8480-6 BMI: 29.9 Code: 31611-4 Heart Rate 1: 80 bpm Height: 5'4" SpO2: 94% Weight: 174 lbs 06/27/2016 Blood Pressure 1: 156/72 Code: 8480-6 BMI: 30.6 Code: 18905-7 Heart Rate 1: 78 bpm Height: 5'4" SpO2: 95% Weight: 178 lbs 05/23/2016 Blood Pressure 1: 146/84 Code: 8480-6 Heart Rate 1: 66 bpm Height: 5'4" SpO2: 94% 04/18/2016 Blood Pressure 1: 148/84 Code: 8480-6 BMI: 30.2 Code: 60036-2 Heart Rate 1: 81 bpm Height: 5'4" SpO2: 97% Weight: 176 lbs 03/07/2016 Blood Pressure 1: 130/78 Code: 8480-6 BMI: 30.0 Code: 44464-7 Heart Rate 1: 85 bpm Height: 5'4" SpO2: 96% Weight: 175 lbs 02/23/2016 Blood Pressure 1: 140/78 Code: 8480-6 BMI: 29.7 Code: 95997-6 Heart Rate 1: 74 bpm Height: 5'4" SpO2: 95% Weight: 173 lbs 09/15/2015 Blood Pressure 1: 140/88 Code: 8480-6 BMI: 29.4 Code: 78196-1 Heart Rate 1: 81 bpm Height: 5'4" SpO2: 97% Weight: 171 lbs 8 oz 05/26/2015 Blood Pressure 1: 150/80 Code: 8480-6 BMI: 31.6 Code: 54529-3 Heart Rate 1: 70 bpm Height: 5'4" SpO2: 96% Weight: 184 lbs 04/09/2015 Blood Pressure 1: 136/74 Code: 8480-6 BMI: 31.4 Code: 65212-4 Heart Rate 1: 91 bpm Height: 5'4" SpO2: 94% Weight: 183 lbs 03/30/2015 Blood Pressure 1: 130/72 Code: 8480-6 BMI: 30.9 Code: 95260-3 Heart Rate 1: 80 bpm Height: 5'4" SpO2: 97% Waist Measure (cm): 102 cm Weight: 180 lbs 03/10/2015 Blood Pressure 1: 152/80 Code: 8480-6 BMI: 31.1 Code: 57677-0 Heart Rate 1: 66 bpm Height: 5'4" SpO2: 98% Weight: 181 lbs 12/16/2014 Blood Pressure 1: 132/88 Code: 8480-6 Blood Pressure 1: 132/88 Code: 8480-6 Heart Rate 1: 88 bpm SpO2: 98% Weight: 183 lbs 12/09/2014 Blood Pressure 1: 140/82 Code: 8480-6 BMI: 31.2 Code: 39620-4 Heart Rate 1: 105 bpm Height: 5'4" SpO2: 93% Weight: 182 lbs 11/13/2014 Blood Pressure 1: 148/88 Code: 8480-6 BMI: 31.8 Code: 34617-2 Heart Rate 1: 54 bpm Height: 5'4" SpO2: 98% Weight: 185 lbs 07/10/2014 Blood Pressure 1: 144/96 Code: 8480-6 BMI: 31.4 Code: 61053-9 Heart Rate 1: 99 bpm Height: 5'4" [...] Encounters Encounter Performer Loca tion Codes Date ( 79614 EST. P ATIENT, LEVEL III Diagnosis: Pleurisy[ICD10: R09.1] Elizabet Falk MD, [facility] CPT-4: 10774 08/08/2016 [id number] EST. PATIENT, LEVEL III Diagnosis: Dysuria[ICD10: R30.0] Diagnosis: Other pruritus[ICD10: L29.8] Shila [facility] MD, [facility] CPT-4: 76809 06/27/2016 70915) 10462 EST. P ATIENT, LEVEL III Diagnosis: Pain in left foot[ICD10: M79.672] Diagnosis: Pain in left toe(s)[ICD10: M79.675] Elizabet Falk MD, [facility] CPT-4: 09182 05/23/2016 17516 EST. PATIENT, LEVEL III Diagnosis: Candidiasis of vulva and vagina[ICD10: B37.3] Diagnosis: Dysuria[ICD10: R30.0] Shila [facility] MD, [facility] CPT-4: 33257 04/18/2016 29328 EST. PATIENT, LEVEL III Diagnosis: Other pruritus[ICD10: L29.8] Diagnosis: Candidiasis of vulva and vagina[ICD10: B37.3] [facility] CPT-4: 95617 03/07/2016 98922) 07073 EST. P ATIENT, LEVEL IV Diagnosis: Essential (primary) hypertension[ICD10: I10] Diagnosis: Pain in left hip[ICD10: M25.552] Diagnosis: Pain in right hip[ICD10: M25.551] Diagnosis: Functional diarrhea[ICD10: K59.1] Diagnosis: Atrophy of thyroid (acquired)[ICD10: E03.4] [facility] CPT-4: 61869 02/23/2016 ([id number]) 00319 EST. P ATIENT, LEVEL IV Diagnosis: Essential (primary) hypertension[ICD10: I10] Diagnosis: Mixed hyperlipidemia[ICD10: E78.2] Diagnosis: Major depressive disorder, single episode, unspecified[ICD10: F32.9] [facility], [facility] CPT-4: 03678 09/15/2015 36840 EST. PATIENT, LEVEL III Diagnosis: Rash and other nonspecific skin eruption[ICD10: R21] Shila Falk MD, [facility] CPT-4: 94719 05/26/2015 ([id number]) 74128 EST. P ATIENT, LEVEL IV Diagnosis: Essential (primary) hypertension[ICD10: I10] Diagnosis: Foot drop, left foot[ICD10: M21.372] Diagnosis: Sacroiliitis, not elsewhere classified[ICD10: M46.1] [facility] MD, [facility] CPT-4: 49478 04/09/2015 ([id number]) 13879 EST. 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 P ATIENT, LEVEL III Diagnosis: Trochanteric bursitis, left hip[ICD10: M70.62] Diagnosis: Iliotibial band syndrome, left leg[ICD10: M76.32] Diagnosis: Sciatica, left side[ICD10: M54.32] Eilzabet Falk MD, [facility] CPT-4: 26246 12/16/2014 ([id number]) 72404 EST. P ATIENT, LEVEL III Diagnosis: Sciatica, left side[ICD10: M54.32] Diagnosis: Sacroiliitis, not elsewhere classified[ICD10: M46.1] [facility] CPT-4: 78749 12/09/2014 ([id number]) 22266 EST. 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] Diagnosis: Carpal tunnel syndrome, unspecified upper limb[ICD10: G56.00] [facility] CPT-4: 48536 11/13/2014 ([id number]) OFFICE VISI T, NEW - LEVEL 4 Diagnosis: ESSENTIAL HYPERTENSION[ICD9: 401.9] Diagnosis: HYPERLIPIDEMIA[ICD9: 272.4] Diagnosis: DEPRESSIVE DISORDER NEC[ICD9: 311] Diagnosis: Diarrhea[ICD9: 787.91] [facility] MD, [facility] CPT-4: 03975 07/10/2014 Plan of Care Planned Activity Notes C odes Status Date Patient Education: Patient Medication Summary Completed 08/08/2016 Referral: Delia Bernstein WPtel: [address] [place], [place] [phone] Referral Initiated 08/01/2016 Appointment: Shila Deluna WPtel: [phone] [facility] (30 min) Complex 06/27/2016 Patient Education: Patient Medication Summary Completed 06/27/2016 Care Plan: Referral Order SNOMED-CT : [id number] Pending 06/27/2016 Appointment: Elizabet Donaldson WPtel: [phone] (15 min) Moderate 05/23/2016 Patient Education: Patient Medication Summary Completed 05/23/2016 Patient Education: Patient Medication Summary Completed 04/18/2016 Patient Education: Patient Medication Summary Completed 03/07/2016 Appointment: [facility] WPtel: [facility] (15 min) Moderate 02/23/2016 Patient Education: Patient Medication Summary Completed 02/23/2016 Patient Education: Hypertension Completed 02/23/2016 Patient Education: Patient Medication Summary Completed 09/15/2015 Appointment: [facility] Falk WPtel: [address] [place], [place] [phone] (15 min) Moderate 07/29/2015 Appointment: (15 min) Moderate 05/26/2015 Patient Education: Patient Medication Summary Completed 05/26/2015 Patient Education: Obesity Completed 05/26/2015 Appointment: [facility] Falk WPtel: [address] [place], [place] [phone] (15 min) Moderate 04/09/2015 Patient Education: Patient Medication Summary Completed 04/09/2015 Patient Education: Hypertension Completed 04/09/2015 Patient Education: Patient Medication Summary Completed 03/30/2015 Referral: Darci Spann Referral Completed 03/16/2015 Appointment: [facility] WPtel: [address] [place], [place] [phone] (15 min) Moderate 03/10/2015 Patient Education: Patient Medication Summary Completed 03/10/2015 Care Plan: [facility] 82923-8 Ordered 03/10/2015 Care Plan: Referral Order SNOMED-CT : [id number] Ordered 03/10/2015 Care Plan: Referral Order SNOMED-CT : [id number] Ordered 03/10/2015 Appointment: (30 min) Complex 12/16/2014 Patient Education: Patient Medication Summary Completed 12/16/2014 Patient Education: .Amazing charts lliot ibial Band Rehabilitation exercises Completed 12/16/2014 Patient Education: .Amazing charts Exercise for Sciati ca Completed 12/16/2014 Care Plan: Referral Order SNOMED-CT : [id number] Ordered 12/16/2014 Appointment: (15 min) Moderate 12/09/2014 Patient Education: Patient Medication Summary Completed 12/09/2014 Patient Education: .Amazing charts Exercise for Sciati ca Completed 12/09/2014 Appointment: Shannon Falk WPtel: [address] [place], [place] [phone] Follow up 11/13/2014 Patient Education: Patient Medication Summary Completed 11/13/2014 Patient Education: Hypertension Completed 11/13/2014 Appointment: Shannon Falk WPtel: [address] [place], [place] [phone] [place] ([place]) New Patient 07/10/2014 Patient Education: Patient Medication Summary Completed 07/10/2014 Patient Education: Hypertension Completed 07/10/2014 Referral: Darci Spann Referral Relationship Referral: External, Ordering Provider Referral Appointment Requested Ref[phone] [facility] Referral Initiated Referral: External, Ordering Provider Referral Completed Instructions No Instructions
--- OUTSIDE RECORDS SUMMARY | 2019-06-07 16:32 | XMS REPORT | CCD ---
Author Author Dalila Falk Organization Shannon Falk MD, [facility] Address [address] [place] [address] Phone Care Team Providers Care Fire And Explosion Investigator Name Role Phone PP Unavailable CCM Unavailable Summary Purpose Interface Exchange Insurance Providers Payer name Policy type / Coverage type Covered green party ID Effective Begin Date Effective End Date WPS Medicare Part B Medicare Part B [id number] Unknown [employer] Insurance M edicare Part B [id number] Unkn own Family history Brother Diagnosis Age [...] Unknown 2 07/10/[address]: 724653970 Has never smoked or chewed tobacco 07/10/2014 Alcohol history Unknown occasionally drinks alcohol 07/10/2014 Allergies, Adverse Reactions, Alerts Substance Reaction Codes Entered Date Inactivated Date Status Remicade hives RxNorm: 791929 03/24/2017 No Inactive Date Active * NO [...] Date Stop Date Sta tus Fill Instructions Lipitor 20 mg tablet RxNorm: 859549 1 Tablet(s) PO QPM 05/08/2018 05/02/2019 Active Benicar 40 mg tablet RxNorm: 009112 1 Tablet(s) PO daily 05/08/2018 05/02/2019 Active Celebrex 200 mg capsule RxNorm: 142589 1 Capsule(s) PO BID 05/03/2018 04/27/2019 Active citalopram 20 mg tablet RxNorm: 586119 Tablet(s) TAKE ONE (1) TABLET BY MOUTH D AILY 05/03/2018 04/27/2019 Ac tive hydrocodone 7.5 mg-a cetaminophen 325 mg tablet RxNorm: 299516 1-2 Tablet(s) PO Q4H as needed 05/01/2018 05/15/2018 Inactive cefdinir 300 mg capsule RxNorm: 713692 1 Capsule(s) PO BID 04/17/2018 04/23/2018 Inactive cefdinir 300 mg capsule RxNorm: 898390 1 Capsule(s) PO BID 04/17/2018 04/16/2018 Inactive clobetasol 0.05 % to pical cream RxNorm: 032632 1 dime size amount Ap plication TOP daily as needed vaginal irritation 03/27/2018 07/24/2018 Active metoprolol succinate ER 25 mg tablet,extended release 24 hr RxNorm: 143491 1 Tablet(s) PO daily 03/27/2018 10/22/2018 Active Synthroid 75 mcg tablet RxNorm: 142686 Tablet(s) TAKE 1 TABLET BY MOUTH DAILY 02/07/2018 09/04/2018 Ac tive Generic For:*SYNTHROID 0.075MG TAB 11/14 9:16:33 AM N O T I C E Last quantity doesn't match original quantity hydrocodone 7.5 mg-a cetaminophen 325 mg tablet RxNorm: 420268 1-2 Tablet(s) PO Q4H as needed 10/12/2017 10/26/2017 Inactive Synthroid 75 mcg tablet RxNorm: 211041 Tablet(s) TAKE 1 TABLET BY MOUTH DAILY 08/09/2017 02/06/2018 In active Generic For:*SYNTHROID 0.075MG TAB 10/22 9:16:33 AM N O T I C E Last quantity doesn't match original quantity hydrocodone 7.5 mg-a cetaminophen 325 mg tablet RxNorm: 044413 1-2 Tablet(s) PO Q4H as needed 05/22/2017 06/20/2017 Inactive amlodipine 10 mg tablet RxNorm: 726079 1 Tablet(s) PO daily 1 Tablet(s) PO ashlie y 05/09/2017 09/26/2017 In active citalopram 20 mg tablet RxNorm: 854355 Tablet(s) TAKE ONE (1) TABLET BY MOUTH D AILY 05/09/2017 05/02/2018 Inactive losartan 100 mg tablet RxNorm: 950316 1 Tablet(s) PO daily TAKE 1 TABLET BY [facility] DAILY 05/09/2017 01/01/2018 Inactive gabapentin 300 mg ca psule RxNorm: 195024 1 Capsule(s) PO daily 03/24/2017 No Stop Date Active Celebrex 200 mg capsule RxNorm: 714974 1 Capsule(s) PO BID 1 Capsule(s) PO ashlie y 03/24/2017 03/23/2017 In active Celebrex 200 mg capsule RxNorm: 063880 1 Capsule(s) PO BID 03/24/2017 03/18/2018 Inactive amlodipine 10 mg tablet RxNorm: 117486 1 Tablet(s) PO daily 1 Tablet(s) PO ashlie y 03/24/2017 05/08/2017 In active Lipitor 40 mg tablet RxNorm: 668066 Tablet(s) TAKE ONE TABLET BY MOUTH AT BE DTIDE 02/14/2017 09/26/2017 Inactive hydrocodone 7.5 mg-a cetaminophen 325 mg tablet RxNorm: 690779 1-2 Tablet(s) PO Q4H as needed 01/16/2017 02/14/2017 Inactive scopolamine 1.5 mg t ransdermal patch (1 mg over 3 days) RxNorm: 716328 1 Patch TD Q72H 11/25/2016 12/04/2016 Inactive scopolamine 1.5 mg t ransdermal patch (1 mg over 3 days) RxNorm: 662892 1 Patch TD Q72H 11/25/2016 11/24/2016 Inactive losartan 100 mg tablet RxNorm: 946143 1 Tablet(s) PO daily TAKE 1 TABLET BY MO [facility] DAILY 11/14/2016 05/08/2017 Inactive Generic For:COZAAR 100MG TA B 05/17/2016 8:31:51 AM Synthroid 75 mcg tablet RxNorm: 629334 TAKE 1 TABLET BY MOUTH DAILY 11/14/2016 06/11/2017 Inactive Generic For:*SYNTHROID 0.075MG TAB 10/22 9:16:33 AM N O T I C E Last quantity doesn't match original quantity citalopram 20 mg tablet RxNorm: 941309 TAKE ONE (1) TABLET BY MOUTH DAILY 11/14/2016 05/08/2017 In active Generic For:CELEXA 20MG TAB 11/14/2016 8:30:49 AM N O T I C E Last quantity doesn't match original quantity prednisone 10 mg tab lets in a dose pack RxNorm: 248802 1 Tablet(s) PO UD 09/30/2016 10/05/2016 In active 6-5-4-3-2-1 hydrocodone 7.5 mg-a cetaminophen 325 mg tablet RxNorm: 728814 1-2 Tablet(s) PO Q4H as needed 09/20/2016 01/15/2017 Inactive amlodipine 5 mg tablet RxNorm: 983831 TAKE ONE TABLET BY MOUTH EVERY DAY 08/15/2016 03/23/2017 In active Generic For:NORVASC 5 MG TABLET 017 3:56:26 PM N O T I C E Last quantity doesn't match original quantity Kenalog 40 mg/mL [place] pension for injection RxNorm: 3887563 1 Milliliter(s) Inj 08/08/2016 08/08/2016 In active prednisone 10 mg tab lets in a dose pack RxNorm: 244379 1 Tablet(s) PO UD 08/08/2016 08/07/2016 In active prednisone 10 mg tab lets in a dose pack RxNorm: 106584 1 Tablet(s) PO UD 08/08/2016 08/13/2016 In active 6-5-4-3-2-1 Diflucan 150 mg tablet RxNorm: 303965 1 Tablet(s) PO daily 06/27/2016 07/10/2016 Inactive Synthroid 75 mcg tablet RxNorm: 742707 TAKE 1 TABLET BY MOUTH DAILY 06/16/2016 11/13/2016 Inactive Generic For:*SYNTHROID 0.075MG TAB pt wo uld like a 90 day supply N O T I C E Last quantity doesn't match original quantity hydrocodone 7.5 mg-a cetaminophen 325 mg tablet RxNorm: 881956 1-2 Tablet(s) PO Q4H as needed 06/06/2016 09/19/2016 Inactive citalopram 20 mg tablet RxNorm: 749698 TAKE ONE (1) TABLET BY MOUTH DAILY 05/18/2016 11/13/2016 In active Generic For:CELEXA 20MG TAB 05/17/2016 8:32:02 AM Celebrex 200 mg capsule RxNorm: 628177 1 Capsule(s) PO daily 05/17/2016 03/23/2017 Inactive losartan 100 mg tablet RxNorm: 978399 TAKE 1 TABLET BY MOUTH DAILY 05/17/2016 11/12/2016 Inactive Generic For:COZAAR 100MG TAB 05/17/2016 8:31:51 AM amlodipine 5 mg tablet RxNorm: 549785 1 Tablet(s) PO daily 05/10/2016 08/14/2016 Inactive Cipro 500 mg tablet RxNorm: 907068 1 Tablet(s) PO BID 05/04/2016 05/03/2016 Inactive Cipro 500 mg tablet RxNorm: 467814 1 Tablet(s) PO BID 05/04/2016 05/13/2016 Inactive Diflucan 150 mg tablet RxNorm: 822343 1 Tablet(s) PO daily 04/18/2016 05/01/2016 Inactive Monistat Soothing Ca re 1.2 % topical gel RxNorm: 7534643 1 Application TOP BI D 03/07/2016 01/01/2018 In active Diflucan 150 mg tablet RxNorm: 062146 1 Tablet(s) PO daily 03/07/2016 03/13/2016 Inactive Lipitor 40 mg tablet RxNorm: 368872 Tablet(s) TAKE ONE TABLET BY MOUTH AT BE DTIDE 02/23/2016 02/13/2017 Inactive citalopram 20 mg tablet RxNorm: 545559 TAKE ONE (1) TABLET BY MOUTH DAILY 02/18/2016 05/17/2016 In active Generic For:CELEXA 20MG TAB refill reque st losartan 100 mg tablet RxNorm: 060172 Tablet(s) 1 Tablet, 1 time per Day 02/09/2016 05/16/2016 In active INSURANCE WILL NOT COVER ADELA ANDREWS UNTIL OTHER FORMULARIES HAVE BEEN TRIED AND FAILED hydrocodone 7.5 mg-a cetaminophen 325 mg tablet RxNorm: 836154 1-2 Tablet(s) PO Q4H as needed 02/03/2016 06/05/2016 Inactive Synthroid 75 mcg tablet RxNorm: 835725 Tablet(s) TAKE 1 TABLET BY MOUTH DAILY 01/19/2016 06/15/2016 In active Generic For:*SYNTHROID 0.075MG TAB 04/2014 10:00:02 AM N O T I C E PRESCRIPTION PREVIOUSLY AUTHORIZED BY DOCTOR:SWATI BEY prednisone 10 mg tab lets in a dose pack RxNorm: 856762 1 Tablet(s) PO UD 01/07/2016 02/22/2016 In active 6-5-4-3-2-1 amlodipine 10 mg tablet RxNorm: 848399 1 Tablet(s) PO daily 12/07/2015 11/30/2016 Inactive citalopram 20 mg tablet RxNorm: 550394 TAKE ONE (1) TABLET BY MOUTH DAILY 11/17/2015 02/14/2016 In active Generic For:CELEXA 20MG TAB refill reque st hydrocodone 7.5 mg-a cetaminophen 325 mg tablet RxNorm: 753316 1-2 Tablet(s) PO Q4H as needed 10/08/2015 02/02/2016 Inactive losartan 100 mg tablet RxNorm: 868242 Tablet(s) 1 Tablet, 1 time per Day 2015 02/07/2016 In active INSURANCE WILL NOT COVER A[place]LA ANDREWS UNTIL OTHER FORMULARIES HAVE BEEN TRIED AND FAILED citalopram 20 mg tablet RxNorm: 613147 TAKE ONE (1) TABLET BY MOUTH DAILY 08/10/2015 11/07/2015 In active Generic For:CELEXA 20MG TAB 08/10/2015 8:59:58 AM Synthroid 75 mcg tablet RxNorm: 254882 Tablet(s) TAKE 1 TABLET BY MOUTH DAILY 05/26/2015 12/21/2015 In active Generic For:*SYNTHROID 0.075MG TAB 04/2014 10:00:02 AM N O T I C E PRESCRIPTION PREVIOUSLY AUTHORIZED BY DOCTOR:SWATI BEY prednisone 20 mg tablet RxNorm: 872432 2 Tablet(s) PO daily 05/26/2015 05/30/2015 Inactive Lipitor 40 mg tablet RxNorm: 339361 TAKE ONE TABLET BY MOUTH AT BEDTIME 05/14/2015 02/07/2016 In active Generic For:LIPITOR 40MG TAB 05/13/2015 8:26:33 AM N O T I C E PRESCRIPTION PREVIOUSLY AUTHORIZED BY DOCTOR:SWATI BEY hydrocodone 7.5 mg-a cetaminophen 325 mg tablet RxNorm: 976345 1-2 Tablet(s) PO Q4H as needed 05/11/2015 10/07/2015 Inactive Celebrex 200 mg capsule RxNorm: 210709 1 Capsule(s) PO daily 05/07/2015 04/30/2016 Inactive citalopram 20 mg tablet RxNorm: 427438 TAKE ONE (1) TABLET BY MOUTH DAILY 04/27/2015 07/25/2015 In active Generic For:CELEXA 20MG TAB 04/26/2015 7:30:08 PM gabapentin 300 mg ca psule RxNorm: 855762 1 Capsule(s) PO QID 04/09/2015 04/02/2016 Inactive citalopram 20 mg tablet RxNorm: 654955 TAKE ONE (1) TABLET BY MOUTH DAILY 01/26/2015 04/25/2015 In active Generic For:CELEXA 20MG TAB 01/26/2015 8:40:11 AM losartan 100 mg tablet RxNorm: 982002 1 Tablet, 1 time per Day 01/26/2015 03/29/2015 Inactive INSURANCE WILL NOT COVER ADELA ANDREWS UNTIL OTHER FORMULARIES HAVE BEEN TRIED AND FAILED hydrocodone 7.5 mg-a cetaminophen 325 mg tablet RxNorm: 041905 1-2 Tablet(s) PO Q4H as needed 01/23/2015 05/10/2015 Inactive Neurontin 100 mg cap almaz RxNorm: 025654 1 Capsule(s) PO TID 01/14/2015 03/09/2015 Inactive Neurontin 100 mg cap almaz RxNorm: 619041 1 Capsule(s) PO TID 01/14/2015 01/13/2015 Inactive Keflex 500 mg capsule RxNorm: 626292 1 Capsule(s) PO TID 01/06/2015 01/05/2015 Inactive Keflex 500 mg capsule RxNorm: 098715 1 Capsule(s) PO TID 01/06/2015 01/12/2015 Inactive hydrocodone 7.5 mg-a cetaminophen 325 mg tablet RxNorm: 105392 1-2 Tablet(s) PO Q4H as needed 12/29/2014 01/22/2015 Inactive Duexis 800 mg-26.6 m g tablet RxNorm: 3910745 1 Tablet(s) PO TID a s needed 12/19/2014 03/29/2015 In active Duexis 800 mg-26.6 m g tablet RxNorm: 8766919 1 Tablet(s) PO TID a s needed 12/19/2014 12/18/2014 In active Kenalog 40 mg/mL [place] pension for injection RxNorm: 8702725 1 Milliliter(s) Inj 12/09/2014 12/09/2014 In active prednisone 10 mg tab lets in a dose pack RxNorm: 312580 1 Tablet(s) PO UD 12/09/2014 12/14/2014 In active 6-5-4-3-2-1 amlodipine 10 mg tablet RxNorm: 821394 1 Tablet(s) PO daily 11/13/2014 11/07/2015 Inactive citalopram 20 mg tablet RxNorm: 404866 TAKE ONE (1) TABLET BY MOUTH DAILY 10/23/2014 01/20/2015 In active Generic For:CELEXA 20MG TAB 10/23/2014 4:32:02 PM N O T I C E PRESCRIPTION PREVIOUSLY AUTHORIZED BY DOCTOR:SWATI BEY hydrocodone 7.5 mg-a cetaminophen 325 mg tablet RxNorm: 699295 1-2 Tablet(s) PO Q4H as needed 10/22/2014 12/28/2014 Inactive Synthroid 75 mcg tablet RxNorm: 800496 TAKE 1 TABLET BY MOUTH DAILY 09/22/2014 04/19/2015 Inactive Generic For:*SYNTHROID 0.075MG TAB 04/2014 10:00:02 AM N O T I C E PRESCRIPTION PREVIOUSLY AUTHORIZED BY DOCTOR:SWATI BEY amlodipine 5 mg tablet RxNorm: 024954 1 Tablet(s) PO daily 08/25/2014 11/12/2014 Inactive Synthroid 75 mcg tablet RxNorm: 582424 1 Tablet(s) PO daily ecept a 1/2 tab on Monday07/11/2014 09/21/2014 Inactive Flonase Allergy Reli ef 50 mcg/actuation nasal spray,suspension RxNorm: 1 [place] NASAL BID 07/10/2014 12/06/2014 Inactive methotrexate sodium 2.5 mg tablet RxNorm: 316395 3 Tablet(s) PO weekly No Start Date 04/08/2015 Inactive Aldactone 25 mg tablet RxNorm: 594325 1 Tablet(s) PO daily No Start Date 03/26/2018 Inactive gabapentin 300 mg ca psule RxNorm: 841168 1 Capsule(s) PO TID No Start Date 04/08/2015 Inactive Plaquenil 200 mg tablet RxNorm: 378464 1 Tablet(s) PO BID No Start Date 05/22/2016 Inactive losartan 100 mg tablet RxNorm: 818973 1 Tablet(s) PO daily No Start Date 01/25/2015 Inactive Benicar 20 mg tablet RxNorm: 535578 1 Tablet(s) PO daily No Start Date 05/07/2018 Inactive Remicade intravenous RxNorm: 970734 intravenous No Start Date 03/23/2017 Inactive amlodipine 5 mg tablet RxNorm: 914752 1 Tablet(s) PO daily No Start Date 08/24/2014 Inactive Celebrex 200 mg capsule RxNorm: 782210 1 Capsule(s) PO daily No Start Date 10/16/2017 Inactive citalopram 20 mg tablet RxNorm: 515924 1 Tablet(s) PO daily No Start Date 10/22/2014 Inactive Synthroid 88 mcg tablet RxNorm: 025583 1 Tablet(s) PO daily No Start Date 07/09/2014 Inactive Arava 20 mg tablet RxNorm: 281497 1 Tablet(s) PO daily No Start Date 01/01/2018 Inactive Lipitor 40 mg tablet RxNorm: 091825 1 Tablet(s) PO daily No Start Date 05/13/2015 Inactive chlorthalidone 25 mg tablet RxNorm: 249177 1 Tablet(s) PO daily No Start Date 03/26/2018 Inactive Synthroid 75 mcg tablet RxNorm: 235240 1 Tablet(s) PO daily No Start Date 07/10/2014 Inactive hydrocodone 7.5 mg-a cetaminophen 325 mg tablet RxNorm: 866272 Tablet(s) PO as neede d No Start Date 10/21/2014 Inactive Medication Administered Medication Codes Instruc tions Start Date Status Kenalog 40 mg/mL suspension for injection RxNorm: 8355790 1Milliliter 08/08/2016 N o longer Active Kenalog 40 mg/mL suspension for injection RxNorm: 4720924 1Milliliter 12/09/2014 N o longer Active Immunizations [...] Item Item Code Result Date Free T4 Tjd106 FREE T4 0.86 ng/dL 05/07/2018 Comp Metabolic Wsx632 NA 138 mEq/L 05/07/2018 Comp Metabolic Evv727 K 4.2 mEq/L 05/07/2018 Comp Metabolic Cfg702 CL 104 mEq/L 05/07/2018 Comp Metabolic Vwe867 CO2 28.0 mEq/L 05/07/2018 Comp Metabolic Hhf680 AN ION GAP 10 05/07/2018 Comp Metabolic Hgh196 GL UCOSE 108 mg/dL 05/07/2018 Comp Metabolic Bie167 Cr eat 0.9 mg/dL 05/07/2018 Comp Metabolic Fnb283 eG FR 71 ml/min/1.73m2 05/07 Comp Metabolic Qnx723 BUN 15 mg/dL 05/07/2018 Comp Metabolic Zku366 B/ C Ratio 17.6 Ratio 05/07/2018 Comp Metabolic Nfn421 CA LCIUM 9.5 mg/dL 05/07/2018 Comp Metabolic Vqi146 AL K PHOS 100 U/L 05/07/2018 Comp Metabolic Ozy151 T(SGOT) 17 U/L 05/07/2018 Comp Metabolic Nmi386 AL T(SGPT) 11 U/L 05/07/2018 Comp Metabolic Bjn457 BI LI T 0.4 mg/dL 05/07/2018 Comp Metabolic Lad182 AL BUMIN 3.9 g/dL 05/07/2018 Comp Metabolic Jlc621 TP RO 6.3 g/dL 05/07/2018 Comp Metabolic Vyr798 GL OB 2.4 g/dL 05/07/2018 Comp Metabolic Xeq994 A/ G Ratio 1.6 Ratio 05/07/2018 Comp Metabolic Sxn059 Os mo 277 mOsmo 05/07/2018 Cbc With [...] 31.6 % 05/07/2018 Cbc With Differential Ord2 George% 9.7 % 05/07/2018 Cbc With Differential Ord2 [...] 2.02 K/ul 05/07/2018 Cbc With Differential Ord2 George ABS# 0.6 K/ul 05/07/2018 Cbc With Differential [...] 31.1 pg 12/26/2017 Cbc With Differential Ord2 George% 9.2 % 12/26/2017 Cbc With Differential Ord2 [...] 1.53 K/ul 12/26/2017 Cbc With Differential Ord2 George ABS# 0.7 K/ul 12/26/2017 Cbc With Differential Ord2 Eos ABS# 0.1 K/ul 12/26/2017 Cbc With Differential Ord2 Baso ABS# 0.0 K/ul 12/26/2017 Free T4 Zjz567 FREE T4 0.93 ng/dL 12/26/2017 Comp Metabolic Iaq365 NA 135 mEq/L 12/26/2017 Comp Metabolic Vwm343 K 4.4 mEq/L 12/26/2017 Comp Metabolic How678 CL 98 mEq/L 12/26/2017 Comp Metabolic Uxf063 CO2 28.0 mEq/L 12/26/2017 Comp Metabolic Jxx025 AN ION GAP 13 12/26/2017 Comp Metabolic Efi656 GL UCOSE 92 mg/dL 12/26/2017 Comp Metabolic Fwv319 Cr eat 1.1 mg/dL 12/26/2017 Comp Metabolic Pjl204 eG FR 52 ml/min/1.73m2 12/26 Comp Metabolic Rwy517 BUN 25 mg/dL 12/26/2017 Comp Metabolic Pnq136 B/ C Ratio 22.7 Ratio 12/26/2017 Comp Metabolic Yov902 CA LCIUM 9.8 mg/dL 12/26/2017 Comp Metabolic Sdb534 AL K PHOS 91 U/L 12/26/2017 Comp Metabolic Upu098 T(SGOT) 16 U/L 12/26/2017 Comp Metabolic Flj658 AL T(SGPT) 12 U/L 12/26/2017 Comp Metabolic Rym421 BI LI T 0.5 mg/dL 12/26/2017 Comp Metabolic Isy956 AL BUMIN 4.3 g/dL 12/26/2017 Comp Metabolic Keh858 TP RO 6.8 g/dL 12/26/2017 Comp Metabolic Chd828 GL OB 2.5 g/dL 12/26/2017 Comp Metabolic Rkd345 A/ G Ratio 1.7 Ratio 12/26/2017 Comp Metabolic Uhs827 Os mo 274 mOsmo 12/26/2017 Urine Culture Ucult Prel iminary NO Growth Day 1 06/29 Urine Culture Ucult Comp lete NO Growth Day 2 06/29 Culture Urine [id number] URI NE CULTURE SEE NOTES 04/22/2016 Culture Urine [id number] Con tinued Results 04/22/2016 Urine Culture Ucult Comp lete >100,000 col/ml aerobic grow th sent to ref lab 04/20/2016 Comp Metabolic Yit698 NA 137 mEq/L 02/10/2016 Comp Metabolic Kga411 K 4.1 mEq/L 02/10/2016 Comp Metabolic Xkl228 CL 102 mEq/L 02/10/2016 Comp Metabolic Umu785 CO2 28.0 mEq/L 02/10/2016 Comp Metabolic Ttp090 AN ION GAP 11 02/10/2016 Comp Metabolic Ofa520 GL UCOSE 104 mg/dL 02/10/2016 Comp Metabolic Wfd684 Cr eat 0.7 mg/dL 02/10/2016 Comp Metabolic Hqo787 eG FR 83 ml/min/1.73m2 02/09 Comp Metabolic Lcw015 BUN 14 mg/dL 02/10/2016 Comp Metabolic Fue878 B/ C Ratio 18.9 Ratio 02/10/2016 Comp Metabolic Llu427 CA LCIUM 9.7 mg/dL 02/10/2016 Comp Metabolic Eht325 AL K PHOS 121 U/L 02/10/2016 Comp Metabolic Elf922 T(SGOT) 19 U/L 02/10/2016 Comp Metabolic Qen178 AL T(SGPT) 13 U/L 02/10/2016 Comp Metabolic Vid084 BI LI T 0.5 mg/dL 02/10/2016 Comp Metabolic Luo715 AL BUMIN 4.3 g/dL 02/10/2016 Comp Metabolic Ski021 TP RO 6.8 g/dL 02/10/2016 Comp Metabolic Nzh027 GL OB 2.5 g/dL 02/10/2016 Comp Metabolic Oam556 A/ G Ratio 1.7 Ratio 02/10/2016 Comp Metabolic Cwx297 Os mo 275 mOsmo 02/10/2016 Lipid Ord30 CHOL 229 mg/dL 02/10/2016 Lipid Ord30 HDL 59.0 mg/dl 02/10/2016 Lipid Ord30 TRIG 252 mg/dL 02/10/2016 Lipid Ord30 LDL 120 mg/dL 02/10/2016 Lipid Ord30 C/HDL 3.9 Ratio 02/10/2016 Free T4 Cuj048 FREE T4 0.87 ng/dL 02/10/2016 Tsh Ord6 [...] 29.2 pg 02/10/2016 Cbc With Differential Ord2 George% 18.6 % 02/10/2016 Cbc With Differential Ord2 [...] 1.81 K/ul 02/10/2016 Cbc With Differential Ord2 George ABS# 1.1 K/ul 02/10/2016 Cbc With Differential Ord2 Eos ABS# 0.1 K/ul 02/10/2016 Cbc With Differential Ord2 Baso ABS# 0.1 K/ul 02/10/2016 Tsh Ord6 hTSH II 0.85 uIU/mL 04/02/2015 Lipid Ord30 CHOL 207 mg/dL 04/02/2015 Lipid Ord30 HDL 68.0 mg/dl 04/02/2015 Lipid Ord30 TRIG 193 mg/dL 04/02/2015 Lipid Ord30 LDL 100 mg/dL 04/02/2015 Lipid Ord30 C/HDL 3.0 Ratio 04/02/2015 Free T4 Vdb784 FREE T4 1.09 ng/dL 04/02/2015 Free T4 Kxu932 FREE T4 0.82 ng/dL 10/15/2014 Tsh Ord6 [...] General 1995 Musculoskeletal digits and nails MCPs: swelling 09/27/2017 [...] 1: 124/74 Code: 8480-6 BMI: 31.6 Code: 60003-3 Heart Rate 1: 55 bpm Height: 5'4" SpO2: 99% Weight: 184 lbs 05/08/2018 Blood Pressure 1: 148/84 Code: 8480-6 BMI: 31.8 Code: 14532-2 Heart Rate 1: 60 bpm Height: 5'4" SpO2: 96% Weight: 185 lbs 03/27/2018 Blood Pressure 1: 142/84 Code: 8480-6 BMI: 31.2 Code: 34301-4 Heart Rate 1: 75 bpm Height: 5'4" SpO2: 97% Weight: 182 lbs 01/02/2018 Blood Pressure 1: 136/68 Code: 8480-6 BMI: 32.4 Code: 25481-0 Heart Rate 1: 80 bpm Height: 5'4" SpO2: 99% Waist Measure (cm): 104 cm Weight: 189 lbs 12/26/2017 Blood Pressure 1: 138/72 Code: 8480-6 BMI: 31.4 Code: 84371-0 Heart Rate 1: 72 bpm Height: 5'4" SpO2: 96% Weight: 183 lbs 10/17/2017 Blood Pressure 1: 156/72 Code: 8480-6 BMI: 31.4 Code: 30264-1 Heart Rate 1: 81 bpm Height: 5'4" SpO2: 98% Temperature: 36.5 (C ) / 97.7 (F) Weight: 183 lbs 09/27/2017 Blood Pressure 1: 140/82 Code: 8480-6 BMI: 32.1 Code: 13555-7 Heart Rate 1: 82 bpm Height: 5'4" SpO2: 98% Weight: 187 lbs 07/31/2017 Blood Pressure 1: 138/82 Code: 8480-6 Heart Rate 1: 87 bpm SpO2: 99% 03/24/2017 Blood Pressure 1: 146/86 Code: 8480-6 BMI: 31.8 Code: 91377-2 Heart Rate 1: 79 bpm Height: 5'4" SpO2: 96% Temperature: 36.4 (C ) / 97.5 (F) Weight: 185 lbs 08/30/2016 Blood Pressure 1: 142/88 Code: 8480-6 BMI: 31.6 Code: 12753-1 Heart Rate 1: 80 bpm Height: 5'4" SpO2: 93% Weight: 184 lbs 08/08/2016 Blood Pressure 1: 142/76 Code: 8480-6 BMI: 29.9 Code: 75071-1 Heart Rate 1: 80 bpm Height: 5'4" SpO2: 94% Weight: 174 lbs 06/27/2016 Blood Pressure 1: 156/72 Code: 8480-6 BMI: 30.6 Code: 58002-5 Heart Rate 1: 78 bpm Height: 5'4" SpO2: 95% Weight: 178 lbs 05/23/2016 Blood Pressure 1: 146/84 Code: 8480-6 Heart Rate 1: 66 bpm Height: 5'4" SpO2: 94% 04/18/2016 Blood Pressure 1: 148/84 Code: 8480-6 BMI: 30.2 Code: 76146-4 Heart Rate 1: 81 bpm Height: 5'4" SpO2: 97% Weight: 176 lbs 03/07/2016 Blood Pressure 1: 130/78 Code: 8480-6 BMI: 30.0 Code: 55489-8 Heart Rate 1: 85 bpm Height: 5'4" SpO2: 96% Weight: 175 lbs 02/23/2016 Blood Pressure 1: 140/78 Code: 8480-6 BMI: 29.7 Code: 83034-5 Heart Rate 1: 74 bpm Height: 5'4" SpO2: 95% Weight: 173 lbs 09/15/2015 Blood Pressure 1: 140/88 Code: 8480-6 BMI: 29.4 Code: 83796-7 Heart Rate 1: 81 bpm Height: 5'4" SpO2: 97% Weight: 171 lbs 8 oz 05/26/2015 Blood Pressure 1: 150/80 Code: 8480-6 BMI: 31.6 Code: 35373-0 Heart Rate 1: 70 bpm Height: 5'4" SpO2: 96% Weight: 184 lbs 04/09/2015 Blood Pressure 1: 136/74 Code: 8480-6 BMI: 31.4 Code: 12779-9 Heart Rate 1: 91 bpm Height: 5'4" SpO2: 94% Weight: 183 lbs 03/30/2015 Blood Pressure 1: 130/72 Code: 8480-6 BMI: 30.9 Code: 31177-5 Heart Rate 1: 80 bpm Height: 5'4" SpO2: 97% Waist Measure (cm): 102 cm Weight: 180 lbs 03/10/2015 Blood Pressure 1: 152/80 Code: 8480-6 BMI: 31.1 Code: 84417-8 Heart Rate 1: 66 bpm Height: 5'4" SpO2: 98% Weight: 181 lbs 12/16/2014 Blood Pressure 1: 132/88 Code: 8480-6 Blood Pressure 1: 132/88 Code: 8480-6 Heart Rate 1: 88 bpm SpO2: 98% Weight: 183 lbs 12/09/2014 Blood Pressure 1: 140/82 Code: 8480-6 BMI: 31.2 Code: 07633-5 Heart Rate 1: 105 bpm Height: 5'4" SpO2: 93% Weight: 182 lbs 11/13/2014 Blood Pressure 1: 148/88 Code: 8480-6 BMI: 31.8 Code: 64151-2 Heart Rate 1: 54 bpm Height: 5'4" SpO2: 98% Weight: 185 lbs 07/10/2014 Blood Pressure 1: 144/96 Code: 8480-6 BMI: 31.4 Code: 39839-5 Heart Rate 1: 99 bpm Height: 5'4" [...] frantz sary hypertension 09/27/2017 None hypothyroid Quality fisher terrapin heather 09/27/2017 None rheumatoid arthritis Quality chronic [...] Encounters Encounter Performer Loca tion Codes Date ([id number]) [id number] EST. P ATIENT, LEVEL III Diagnosis: Essential (primary) hypertension[ICD10: I10] Diagnosis: Atrophy of thyroid (acquired)[ICD10: E03.4] Shannon Falk MD, LL C CPT-4: 77393 06/12/2018 ([id number]) [id number] EST. P ATIENT, LEVEL IV Diagnosis: Essential (primary) hypertension[ICD10: I10] Diagnosis: Atrophy of thyroid (acquired)[ICD10: E03.4] Diagnosis: Mixed hyperlipidemia[ICD10: E78.2] Shannon Falk MD, [facility] CPT- 4: 85415 05/08/2018 ([id number]) 95443 EST. P ATIENT, LEVEL III Diagnosis: Hypo-osmolality and hyponatremia[ICD10: E87.1] Shannon Falk MD, C CPT-4: 73638 03/27/2018 ([id number]) [id number] EST. P ATIENT, LEVEL IV Diagnosis: Atrophy of thyroid (acquired)[ICD10: E03.4] Diagnosis: Essential (primary) hypertension[ICD10: I10] Diagnosis: 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[ICD10: M05.741] Diagnosis: 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[ICD10: M05.742] Diagnosis: Pain in thoracic spine[ICD10: M54.6] Shannon Falk MD, [facility] CPT-4: 29409 12/26/2017 ([id number]) 93788 EST. P ATIENT, LEVEL III Diagnosis: Otalgia, left ear[ICD10: H92.02] Diagnosis: Essential (primary) hypertension[ICD10: I10] Elizabet Falk MD, [facility] CPT-4: 58461 10/17/2017 ([id number]) 65423 EST. P ATIENT, LEVEL IV Diagnosis: 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[ICD10: M05.741] Diagnosis: 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[ICD10: M05.742] Diagnosis: Atrophy of thyroid (acquired)[ICD10: E03.4] Diagnosis: Essential (primary) hypertension[ICD10: I10] Shannon Falk MD, C CPT-4: 18921 09/27/2017 ([id number]) Miscellaneou s no charge Diagnosis: Essential (primary) hypertension[ICD10: I10] Elizabet Falk MD, [facility] CPT-4: 96832 07/31/2017 ([id number]) 86831 EST. P ATIENT, LEVEL IV Diagnosis: Essential (primary) hypertension[ICD10: I10] Diagnosis: Atrophy of thyroid (acquired)[ICD10: E03.4] Diagnosis: 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[ICD10: M05.741] Diagnosis: 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[ICD10: M05.742] Shannon Falk MD, [facility] CPT-4: 85588 03/24/2017 ([id number]) 41083 EST. P ATIENT, LEVEL IV Diagnosis: Atrophy of thyroid (acquired)[ICD10: E03.4] Diagnosis: Pleurisy[ICD10: R09.1] Diagnosis: Essential (primary) hypertension[ICD10: I10] Shannon Falk MD, [facility] CPT-4: 03990 08/30/2016 ([id number]) 72310 EST. P ATIENT, LEVEL III Diagnosis: Pleurisy[ICD10: R09.1] Elizabet Falk MD, [facility] CPT-4: 39225 08/08/2016 [id number] EST. PATIENT, LEVEL III Diagnosis: Dysuria[ICD10: R30.0] Diagnosis: Other pruritus[ICD10: L29.8] Shila Falk MD, [facility] CPT-4: 21432 06/27/2016 ([id number]) 57742 EST. P ATIENT, LEVEL III Diagnosis: Pain in left foot[ICD10: M79.672] Diagnosis: Pain in left toe(s)[ICD10: M79.675] Elizabet Falk MD, [facility] CPT-4: 25650 05/23/2016 [id number] EST. PATIENT, LEVEL III Diagnosis: Candidiasis of vulva and vagina[ICD10: B37.3] Diagnosis: Dysuria[ICD10: R30.0] Shila Falk MD, [facility] CPT-4: 27204 04/18/2016 03082 EST. PATIENT, LEVEL III Diagnosis: Other pruritus[ICD10: L29.8] Diagnosis: Candidiasis of vulva and vagina[ICD10: B37.3] Shila Falk MD, [facility] CPT-4: 25540 03/07/2016 ([id number]) 99574 EST. P ATIENT, LEVEL IV Diagnosis: Essential (primary) hypertension[ICD10: I10] Diagnosis: Pain in left hip[ICD10: M25.552] Diagnosis: Pain in right hip[ICD10: M25.551] Diagnosis: Functional diarrhea[ICD10: K59.1] Diagnosis: Atrophy of thyroid (acquired)[ICD10: E03.4] Shannon Falk MD, C CPT-4: 96645 02/23/2016 ([id number]) 88751 EST. P ATIENT, LEVEL IV Diagnosis: Essential (primary) hypertension[ICD10: I10] Diagnosis: Mixed hyperlipidemia[ICD10: E78.2] Diagnosis: Major depressive disorder, single episode, unspecified[ICD10: F32.9] Shannon Falk MD, [facility] CPT-4: 27262 09/15/2015 [id number] EST. PATIENT, LEVEL III Diagnosis: Rash and other nonspecific skin eruption[ICD10: R21] Shila Falk MD, [facility] CPT-4: 20425 05/26/2015 ([id number]) 30484 EST. P ATIENT, LEVEL IV Diagnosis: Essential (primary) hypertension[ICD10: I10] Diagnosis: Foot drop, left foot[ICD10: M21.372] Diagnosis: Sacroiliitis, not elsewhere classified[ICD10: M46.1] Shannon Falk MD, C CPT-4: 96533 04/09/2015 ([id number]) 28935 EST. 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 P ATIENT, LEVEL III Diagnosis: Trochanteric bursitis, left hip[ICD10: M70.62] Diagnosis: Iliotibial band syndrome, left leg[ICD10: M76.32] Diagnosis: Sciatica, left side[ICD10: M54.32] Elizabet Falk MD, [facility] CPT-4: 92020 12/16/2014 ([id number]) 54470 EST. P ATIENT, LEVEL III Diagnosis: Sciatica, left side[ICD10: M54.32] Diagnosis: Sacroiliitis, not elsewhere classified[ICD10: M46.1] Elizabet Falk MD, [facility] CPT-4: 59901 12/09/2014 ([id number]) 20410 EST. 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] Diagnosis: Carpal tunnel syndrome, unspecified upper limb[ICD10: G56.00] [facility] CPT-4: 21418 11/13/2014 ([id number]) OFFICE VISI T NEW - LEVEL 4 Diagnosis: ESSENTIAL HYPERTENSION[ICD9: 401.9] Diagnosis: HYPERLIPIDEMIA[ICD9: 272.4] Diagnosis: DEPRESSIVE DISORDER NEC[ICD9: 311] Diagnosis: Diarrhea[ICD9: 787.91] Shannon Falk MD, [facility] CPT-4: 72410 07/10/2014 Plan of Care Planned Activity Notes [...] based on previous levels of control. 06/12/2018 Patient Education: Patient Medication Summary Completed [...] of control. 05/08/2018 Appointment: Shannon Falk WPtel: [phone] [facility] (15 min) Moderate 05/08/2018 Patient Education: Patient Medication Summary Completed 05/08/2018 Patient Education: Hypertension Completed 05/08/2018 Appointment: Shannon Falk WPtel: [phone] [facility] [place] (15 min) Moderate 03/28/2018 Visit Plan: Hyponatremia - continue with current treatment - gatorade/powerade, monitor electrolytes. 03/27/2018 [facility]ment: [phone] [place] (15 min) Moderate 03/27/2018 Patient Education: Patient Medication Summary Completed 03/27/2018 Patient Education: Patient Medication Summary Completed 02/01/2018 Appointment: Shannon Falk WPtel: [phone] [facility] [place] (15 min) Moderate 01/22/2018 Patient Education: [...] surrogate. 01/02/2018 Appointment: [phone] [phone] [facility] - Annual Wellness Visit 01/02/2018 Patient Education: [...] better after the Joint injections by Dr. Regalado in . Hypothyroidism - pt with chronic hypothyroidism, continue with current medication, will monitor pt to signs or symptoms of lack of adequate supplementation. Pt is to continue with current dose of medication unless directed otherwise. Check labs at regular intervals q 3 months or q 6 months based on previous levels of control. 12/26/2017 Appointment: [phone] (15 min) Moderate 12/26/2017 Patient Education: Patient [...] plan. 10/17/2017 Appointment: [facility]onaldson [phone] [phone] [place] (15 min) Moderate 10/17/2017 Patient [...] specialist - I have recommended Dr. Gely [facility]ado [facility]. Hypothyroidism [...] home. 09/27/2017 Appointment: Shannon Falk WPtel: [phone] [facility] [place] (15 min) Moderate 09/27/2017 Patient Education: Patient Medication Summary Completed 09/27/2017 Care Plan: Referral Order SNOMED-CT : [id number] Pending 09/27/2017 Appointment: Shannon Falk WPtel: [phone] [facility] [place] (15 min) Moderate 09/21/2017 Appointment: Nurse [...] daily. 03/24/2017 Appointment: Shannon Falk WPtel: [phone] [facility] [place] (15 min) Moderate 03/24/2017 Patient Education: Patient Medication Summary Completed 03/24/2017 App[facility]ment: [phone] [place] (15 min) Moderate 03/16/2017 Appointment: [phone] [place] (15 min) Moderate 03/01/2017 Visit Plan: [...] supportive care. 08/30/2016 Appointment: Shannon Falk WPtel: [facility] (15 min) Moderate 08/30/2016 Patient [...] of plan. 08/08/2016 Appointment: Elizabet Donaldson WPtel: [phone] (30 min) Complex 08/08/2016 Patient Education: Patient Medication Summary Completed 08/08/2016 Referral: Delia Bernstein WPtel: [address] [place], [place] [id number] Referral Initiated 08/01/2016 Visit Plan: Vaginal yeast [...] WPtel[facility] (30 min) Complex 06/27/2016 Patient Education: Patient Medication Summary Completed 06/27/2016 Care Plan: Referral Order SNOMED-CT : [id number] Pending 06/27/2016 Visit Plan: Left foot, 1st and 2nd toe pain-suspect fracture of left great toe-will obtain xrays and proceed as indicated. Patient verbalized understanding of plan. 05/23/2016 Appointment: Elizabet Donaldson WPtel: [phone] [phone] (15 min) Moderate 05/23/2016 Patient Education: [...] start probiotics 02/23/2016 Appointment: Shannon Falk WPtel: [address] [place], [place] [address] (15 min) Moderate 02/23/2016 Patient Education: Patient [...] WPtel: [facility] (15 min) Moderate 07/29/2015 Visit Plan: Rash [...] - vitamin B12 liquid 2000mcg daily - [facility] sells the liquid b12, folic acid - take daily. metanex 1 capsule twice daily - call office if this seems to help decrease nerve pain increase the night-time dosing of gabapentin to 300mg in AM, Noon, 6pm and 10pm 04/09/2015 Appointment: Shannon Falk WPtel: [facility] (15 min) Moderate 04/09/2015 Patient Education: Patient [...] in 2012. 03/10/2015 Appointment: Shannon Falk WPtel: [address] [place], [place] [phone] (15 min) Moderate 03/10/2015 Patient Education: Patient Medication Summary Completed 03/10/2015 Care Plan: SCREENINGMAMMOGRAPHYDIGITAL LOINC : 01328-7 Ordered 03/10/2015 Care Plan: Referral Order SNOMED-CT : [id number] Ordered 03/10/2015 Care Plan: Referral Order SNOMED-CT : [id number] Ordered 03/10/2015 Visit Plan: Left hip bursitis/Iliot [...] 12/16/2014 Patient Education: Eryn espinosa Exercise for Sciati ca Completed 12/16/2014 Care Plan: Referral Order SNOMED-CT : [id number] Ordered 12/16/2014 Visit Plan: Sacroiliitis - back [...] 12/09/2014 Patient Education: .Pippa espinosa Exercise for Sciati ca Completed 12/09/2014 Visit [...] WPtel[facility] Follow up 11/13/2014 Patient Education: Patient Medication [...] stomach pain. ALIGN PROBIOTIC - TAKE DAILY ([employer] - Smartphone RFID OR Levels Beyond -TWO OTHER PROBIOTICS THAT ARE HIGH QUALITY) CIPROFLOXACIN TO BE TAKEN IF NEEDED IF THE DIARRHEA DOES NOT IMPROVE OR IF IT WORSENS. 07/10/2014 Appointment: Shannon [facility]Ptel: [phone] [place] ([place]) New Patient 07/10/2014 Patient Education: Patient Medication Summary Completed 07/10/2014 Patient Education: Hypertension Completed 07/10/2014 Referral: Darci Spann Referral Relationship Referral: External, Ordering Provider Referral Appointment Requested Referral: External, Ordering Provider 09/28 Referral info faxed to [facility] 10/03 They tried calling her with an appt and she did not answer. Called patient and she will call them back. Appoint ment Requested Referral: External, Ordering Provider Referral Appointment Requested Referral: Delia Bernstein WPtel: [phone] [place], [place] [address] Referral Initiated Referral: External, Ordering Provider Referral Completed Instructions Comment luanne gonsalves e - look up on [place] . Hypertension - well controlled - elgin [...] better after the Joint injections by Dr. Regalado in [place]. Hypothyroidism - pt with chronic hypothyroidism, continue [...] is finished, refill the 10mg pill at [facility]. carpal tunnel brace . Hypertension - [...] allergy spray. ALIGN PROBIOTIC - TAKE DAILY ([employer] - Smartphone RFID OR [employer] Beyond -TWO OTHER PROBIOTICS THAT ARE HIGH QUALITY) [...] stomach pain. ALIGN PROBIOTIC - TAKE DAILY ([employer] - Smartphone RFID OR Levels Beyond -TWO OTHER PROBIOTICS THAT ARE HIGH QUALITY) [...] worsen, or with any concerns. dr. [facility] - hand [...] specialist - I have recommended Dr. Gely Regalado [facility]. Hypothyroidism [...] vitamin B12 liquid 2 000mcg daily - [facility] sells the liquid b12 folic acid - [...] - vitamin B12 liquid 2000mcg daily - [facility] sells the liquid b12, folic acid - [...]
--- OUTSIDE RECORDS SUMMARY | 2019-06-07 16:34 | XMS REPORT | CCD ---
Author Author Dalila Falk Organization Shannon Falk MD, [facility] Address [address] [place] [address] Phone Care Team Providers Care Pediatric Social Worker Name Role Phone PP Unavailable CCM Unavailable Summary Purpose Interface Exchange Insurance Providers Payer name Policy type / Coverage type Covered republican ID Effective Begin Date Effective End Date WPS Medicare Part B Medicare Part B [id number] Unknown [place] [employer] Insurance M edicare Part B [id number] Unkn own Family history Brother Diagnosis Age [...] Unknown 2 07/10/[address]: 896135255 Has never smoked or chewed tobacco 07/10/2014 Alcohol history Unknown occasionally drinks alcohol 07/10/2014 Allergies, Adverse Reactions, Alerts Substance Reaction Codes Entered Date Inactivated Date Status Remicade hives RxNorm: 294117 03/24/2017 No Inactive Date Active * NO [...] Fill Instructions Lipitor 20 mg tablet RxNorm: 526476 1 Tablet(s) PO QPM 05/08/2018 05/02/2019 Active Benicar 40 mg tablet RxNorm: 596856 1 Tablet(s) PO daily 05/08/2018 05/02/2019 Active Celebrex 200 mg capsule RxNorm: 995910 1 Capsule(s) PO BID 05/03/2018 04/27/2019 Active citalopram 20 mg tablet RxNorm: 473398 Tablet(s) TAKE ONE (1) TABLET BY MOUTH D AILY 05/03/2018 04/27/2019 Ac tive hydrocodone 7.5 mg-a cetaminophen 325 mg tablet RxNorm: 985295 1-2 Tablet(s) PO Q4H as needed 05/01/2018 05/15/2018 Active cefdinir 300 mg capsule RxNorm: 141715 1 Capsule(s) PO BID 04/17/2018 04/23/2018 Inactive cefdinir 300 mg capsule RxNorm: 118888 1 Capsule(s) PO BID 04/17/2018 04/16/2018 Inactive clobetasol 0.05 % to pical cream RxNorm: 789845 1 dime size amount Ap plication TOP daily as needed vaginal irritation 03/27/2018 07/24/2018 Active metoprolol succinate ER 25 mg tablet,extended release 24 hr RxNorm: 044719 1 Tablet(s) PO daily 03/27/2018 10/22/2018 Active Synthroid 75 mcg tablet RxNorm: 482960 Tablet(s) TAKE 1 TABLET BY MOUTH DAILY 02/07/2018 09/04/2018 Ac tive Generic For:*SYNTHROID 0.075MG TAB 11/14 9:16:33 AM N O T I C E Last quantity doesn't match original quantity hydrocodone 7.5 mg-a cetaminophen 325 mg tablet RxNorm: 523552 1-2 Tablet(s) PO Q4H as needed 10/12/2017 10/26/2017 Inactive Synthroid 75 mcg tablet RxNorm: 784196 Tablet(s) TAKE 1 TABLET BY MOUTH DAILY 08/09/2017 02/06/2018 In active Generic For:*SYNTHROID 0.075MG TAB 10/22 9:16:33 AM N O T I C E Last quantity doesn't match original quantity hydrocodone 7.5 mg-a cetaminophen 325 mg tablet RxNorm: 333467 1-2 Tablet(s) PO Q4H as needed 05/22/2017 06/20/2017 Inactive amlodipine 10 mg tablet RxNorm: 291115 1 Tablet(s) PO daily 1 Tablet(s) PO ashlie y 05/09/2017 09/26/2017 In active citalopram 20 mg tablet RxNorm: 614055 Tablet(s) TAKE ONE (1) TABLET BY MOUTH D AILY 05/09/2017 05/02/2018 Inactive losartan 100 mg tablet RxNorm: 576698 1 Tablet(s) PO daily TAKE 1 TABLET BY [facility] DAILY 05/09/2017 01/01/2018 Inactive gabapentin 300 mg ca psule RxNorm: 035727 1 Capsule(s) PO daily 03/24/2017 No Stop Date Active Celebrex 200 mg capsule RxNorm: 428067 1 Capsule(s) PO BID 1 Capsule(s) PO ashlie y 03/24/2017 03/23/2017 In active Celebrex 200 mg capsule RxNorm: 442758 1 Capsule(s) PO BID 03/24/2017 03/18/2018 Inactive amlodipine 10 mg tablet RxNorm: 219358 1 Tablet(s) PO daily 1 Tablet(s) PO ashlie y 03/24/2017 05/08/2017 In active Lipitor 40 mg tablet RxNorm: 257967 Tablet(s) TAKE ONE TABLET BY MOUTH AT BE DTIIA 02/14/2017 09/26/2017 Inactive hydrocodone 7.5 mg-a cetaminophen 325 mg tablet RxNorm: 491936 1-2 Tablet(s) PO Q4H as needed 01/16/2017 02/14/2017 Inactive scopolamine 1.5 mg t ransdermal patch (1 mg over 3 days) RxNorm: 570810 1 Patch TD Q72H 11/25/2016 12/04/2016 Inactive scopolamine 1.5 mg t ransdermal patch (1 mg over 3 days) RxNorm: 687489 1 Patch TD Q72H 11/25/2016 11/24/2016 Inactive losartan 100 mg tablet RxNorm: 638082 1 Tablet(s) PO daily TAKE 1 TABLET BY [facility] DAILY 11/14/2016 05/08/2017 Inactive Generic For:COZAAR 100MG TA B 05/17/2016 8:31:51 AM Synthroid 75 mcg tablet RxNorm: 185196 TAKE 1 TABLET BY MOUTH DAILY 11/14/2016 06/11/2017 Inactive Generic For:*SYNTHROID 0.075MG TAB 10/22 9:16:33 AM N O T I C E Last quantity doesn't match original quantity citalopram 20 mg tablet RxNorm: 389207 TAKE ONE (1) TABLET BY MOUTH DAILY 11/14/2016 05/08/2017 In active Generic For:CELEXA 20MG TAB 11/14/2016 8:30:49 AM N O T I C E Last quantity doesn't match original quantity prednisone 10 mg tab lets in a dose pack RxNorm: 489022 1 Tablet(s) PO UD 09/30/2016 10/05/2016 In active 6-5-4-3-2-1 hydrocodone 7.5 mg-a cetaminophen 325 mg tablet RxNorm: 308622 1-2 Tablet(s) PO Q4H as needed 09/20/2016 01/15/2017 Inactive amlodipine 5 mg tablet RxNorm: 903557 TAKE ONE TABLET BY MOUTH EVERY DAY 08/15/2016 03/23/2017 In active Generic For:NORVASC 5 MG TABLET 017 3:56:26 PM N O T I C E Last quantity doesn't match original quantity Kenalog 40 mg/mL [place] pension for injection RxNorm: 9160994 1 Milliliter(s) Inj 08/08/2016 08/08/2016 In active prednisone 10 mg tab lets in a dose pack RxNorm: 210107 1 Tablet(s) PO UD 08/08/2016 08/07/2016 In active prednisone 10 mg tab lets in a dose pack RxNorm: 455580 1 Tablet(s) PO UD 08/08/2016 08/13/2016 In active 6-5-4-3-2-1 Diflucan 150 mg tablet RxNorm: 744041 1 Tablet(s) PO daily 06/27/2016 07/10/2016 Inactive Synthroid 75 mcg tablet RxNorm: 269083 TAKE 1 TABLET BY MOUTH DAILY 06/16/2016 11/13/2016 Inactive Generic For:*SYNTHROID 0.075MG TAB pt wo uld like a 90 day supply N O T I C E Last quantity doesn't match original quantity hydrocodone 7.5 mg-a cetaminophen 325 mg tablet RxNorm: 593872 1-2 Tablet(s) PO Q4H as needed 06/06/2016 09/19/2016 Inactive citalopram 20 mg tablet RxNorm: 354730 TAKE ONE (1) TABLET BY MOUTH DAILY 05/18/2016 11/13/2016 In active Generic For:CELEXA 20MG TAB 05/17/2016 8:32:02 AM Celebrex 200 mg capsule RxNorm: 267139 1 Capsule(s) PO daily 05/17/2016 03/23/2017 Inactive losartan 100 mg tablet RxNorm: 878101 TAKE 1 TABLET BY MOUTH DAILY 05/17/2016 11/12/2016 Inactive Generic For:COZAAR 100MG TAB 05/17/2016 8:31:51 AM amlodipine 5 mg tablet RxNorm: 435351 1 Tablet(s) PO daily 05/10/2016 08/14/2016 Inactive Cipro 500 mg tablet RxNorm: 458002 1 Tablet(s) PO BID 05/04/2016 05/03/2016 Inactive Cipro 500 mg tablet RxNorm: 872293 1 Tablet(s) PO BID 05/04/2016 05/13/2016 Inactive Diflucan 150 mg tablet RxNorm: 021991 1 Tablet(s) PO daily 04/18/2016 05/01/2016 Inactive Monistat Soothing Ca re 1.2 % topical gel RxNorm: 3119092 1 Application TOP BI D 03/07/2016 01/01/2018 In active Diflucan 150 mg tablet RxNorm: 041814 1 Tablet(s) PO daily 03/07/2016 03/13/2016 Inactive Lipitor 40 mg tablet RxNorm: 749764 Tablet(s) TAKE ONE TABLET BY MOUTH AT BE DTIIA 02/23/2016 02/13/2017 Inactive citalopram 20 mg tablet RxNorm: 117346 TAKE ONE (1) TABLET BY MOUTH DAILY 02/18/2016 05/17/2016 In active Generic For:CELEXA 20MG TAB refill reque st losartan 100 mg tablet RxNorm: 539915 Tablet(s) 1 Tablet, 1 time per Day 02/09/2016 05/16/2016 In active INSURANCE WILL NOT COVER ADELA ANDREWS UNTIL OTHER FORMULARIES HAVE BEEN TRIED AND FAILED hydrocodone 7.5 mg-a cetaminophen 325 mg tablet RxNorm: 293756 1-2 Tablet(s) PO Q4H as needed 02/03/2016 06/05/2016 Inactive Synthroid 75 mcg tablet RxNorm: 668014 Tablet(s) TAKE 1 TABLET BY MOUTH DAILY 01/19/2016 06/15/2016 In active Generic For:*SYNTHROID 0.075MG TAB 04/2014 10:00:02 AM N O T I C E PRESCRIPTION PREVIOUSLY AUTHORIZED BY DOCTOR:SWATI BEY prednisone 10 mg tab lets in a dose pack RxNorm: 284849 1 Tablet(s) PO UD 01/07/2016 02/22/2016 In active 6-5-4-3-2-1 amlodipine 10 mg tablet RxNorm: 114051 1 Tablet(s) PO daily 12/07/2015 11/30/2016 Inactive citalopram 20 mg tablet RxNorm: 255089 TAKE ONE (1) TABLET BY MOUTH DAILY 11/17/2015 02/14/2016 In active Generic For:CELEXA 20MG TAB refill reque st hydrocodone 7.5 mg-a cetaminophen 325 mg tablet RxNorm: 233522 1-2 Tablet(s) PO Q4H as needed 10/08/2015 02/02/2016 Inactive losartan 100 mg tablet RxNorm: 513928 Tablet(s) 1 Tablet, 1 time per Day 2015 02/07/2016 In active INSURANCE WILL NOT COVER ADELA ANDREWS UNTIL OTHER FORMULARIES HAVE BEEN TRIED AND FAILED citalopram 20 mg tablet RxNorm: 245937 TAKE ONE (1) TABLET BY MOUTH DAILY 08/10/2015 11/07/2015 In active Generic For:CELEXA 20MG TAB 08/10/2015 8:59:58 AM Synthroid 75 mcg tablet RxNorm: 196576 Tablet(s) TAKE 1 TABLET BY MOUTH DAILY 05/26/2015 12/21/2015 In active Generic For:*SYNTHROID 0.075MG TAB 04/2014 10:00:02 AM N O T I C E PRESCRIPTION PREVIOUSLY AUTHORIZED BY DOCTOR:SWATI BEY prednisone 20 mg tablet RxNorm: 443599 2 Tablet(s) PO daily 05/26/2015 05/30/2015 Inactive Lipitor 40 mg tablet RxNorm: 523734 TAKE ONE TABLET BY MOUTH AT BEDTIME 05/14/2015 02/07/2016 In active Generic For:LIPITOR 40MG TAB 05/13/2015 8:26:33 AM N O T I C E PRESCRIPTION PREVIOUSLY AUTHORIZED BY DOCTOR:SWATI BEY hydrocodone 7.5 mg-a cetaminophen 325 mg tablet RxNorm: 479822 1-2 Tablet(s) PO Q4H as needed 05/11/2015 10/07/2015 Inactive Celebrex 200 mg capsule RxNorm: 463585 1 Capsule(s) PO daily 05/07/2015 04/30/2016 Inactive citalopram 20 mg tablet RxNorm: 445672 TAKE ONE (1) TABLET BY MOUTH DAILY 04/27/2015 07/25/2015 In active Generic For:CELEXA 20MG TAB 04/26/2015 7:30:08 PM gabapentin 300 mg ca psule RxNorm: 313966 1 Capsule(s) PO QID 04/09/2015 04/02/2016 Inactive citalopram 20 mg tablet RxNorm: 368040 TAKE ONE (1) TABLET BY MOUTH DAILY 01/26/2015 04/25/2015 In active Generic For:CELEXA 20MG TAB 01/26/2015 8:40:11 AM losartan 100 mg tablet RxNorm: 964567 1 Tablet, 1 time per Day 01/26/2015 03/29/2015 Inactive INSURANCE WILL NOT COVER ADELA ANDREWS UNTIL OTHER FORMULARIES HAVE BEEN TRIED AND FAILED hydrocodone 7.5 mg-a cetaminophen 325 mg tablet RxNorm: 215313 1-2 Tablet(s) PO Q4H as needed 01/23/2015 05/10/2015 Inactive Neurontin 100 mg cap almaz RxNorm: 583475 1 Capsule(s) PO TID 01/14/2015 03/09/2015 Inactive Neurontin 100 mg cap almaz RxNorm: 436631 1 Capsule(s) PO TID 01/14/2015 01/13/2015 Inactive Keflex 500 mg capsule RxNorm: 140569 1 Capsule(s) PO TID 01/06/2015 01/05/2015 Inactive Keflex 500 mg capsule RxNorm: 560874 1 Capsule(s) PO TID 01/06/2015 01/12/2015 Inactive hydrocodone 7.5 mg-a cetaminophen 325 mg tablet RxNorm: 564002 1-2 Tablet(s) PO Q4H as needed 12/29/2014 01/22/2015 Inactive Duexis 800 mg-26.6 m g tablet RxNorm: 7172337 1 Tablet(s) PO TID a s needed 12/19/2014 03/29/2015 In active Duexis 800 mg-26.6 m g tablet RxNorm: 4749024 1 Tablet(s) PO TID a s needed 12/19/2014 12/18/2014 In active Kenalog 40 mg/mL [place] pension for injection RxNorm: 5124316 1 Milliliter(s) Inj 12/09/2014 12/09/2014 In active prednisone 10 mg tab lets in a dose pack RxNorm: 781964 1 Tablet(s) PO UD 12/09/2014 12/14/2014 In active 6-5-4-3-2-1 amlodipine 10 mg tablet RxNorm: 549678 1 Tablet(s) PO daily 11/13/2014 11/07/2015 Inactive citalopram 20 mg tablet RxNorm: 724609 TAKE ONE (1) TABLET BY MOUTH DAILY 10/23/2014 01/20/2015 In active Generic For:CELEXA 20MG TAB 10/23/2014 4:32:02 PM N O T I C E PRESCRIPTION PREVIOUSLY AUTHORIZED BY DOCTOR:SWATI BEY hydrocodone 7.5 mg-a cetaminophen 325 mg tablet RxNorm: 053931 1-2 Tablet(s) PO Q4H as needed 10/22/2014 12/28/2014 Inactive Synthroid 75 mcg tablet RxNorm: 793239 TAKE 1 TABLET BY MOUTH DAILY 09/22/2014 04/19/2015 Inactive Generic For:*SYNTHROID 0.075MG TAB 04/2014 10:00:02 AM N O T I C E PRESCRIPTION PREVIOUSLY AUTHORIZED BY DOCTOR:SWATI BEY amlodipine 5 mg tablet RxNorm: 682265 1 Tablet(s) PO daily 08/25/2014 11/12/2014 Inactive Synthroid 75 mcg tablet RxNorm: 973968 1 Tablet(s) PO daily ecept a 1/2 tab on Monday07/11/2014 09/21/2014 Inactive Flonase Allergy Reli ef 50 mcg/actuation nasal spray,suspension RxNorm: 1 [place] NASAL BID 07/10/2014 12/06/2014 Inactive methotrexate sodium 2.5 mg tablet RxNorm: 054878 3 Tablet(s) PO weekly No Start Date 04/08/2015 Inactive Aldactone 25 mg tablet RxNorm: 455525 1 Tablet(s) PO daily No Start Date 03/26/2018 Inactive gabapentin 300 mg ca psule RxNorm: 473494 1 Capsule(s) PO TID No Start Date 04/08/2015 Inactive Plaquenil 200 mg tablet RxNorm: 127793 1 Tablet(s) PO BID No Start Date 05/22/2016 Inactive losartan 100 mg tablet RxNorm: 673665 1 Tablet(s) PO daily No Start Date 01/25/2015 Inactive Benicar 20 mg tablet RxNorm: 803514 1 Tablet(s) PO daily No Start Date 05/07/2018 Inactive Remicade intravenous RxNorm: 958587 intravenous No Start Date 03/23/2017 Inactive amlodipine 5 mg tablet RxNorm: 712015 1 Tablet(s) PO daily No Start Date 08/24/2014 Inactive Celebrex 200 mg capsule RxNorm: 441488 1 Capsule(s) PO daily No Start Date 10/16/2017 Inactive citalopram 20 mg tablet RxNorm: 389081 1 Tablet(s) PO daily No Start Date 10/22/2014 Inactive Synthroid 88 mcg tablet RxNorm: 215207 1 Tablet(s) PO daily No Start Date 07/09/2014 Inactive Arava 20 mg tablet RxNorm: 840991 1 Tablet(s) PO daily No Start Date 01/01/2018 Inactive Lipitor 40 mg tablet RxNorm: 185688 1 Tablet(s) PO daily No Start Date 05/13/2015 Inactive chlorthalidone 25 mg tablet RxNorm: 305242 1 Tablet(s) PO daily No Start Date 03/26/2018 Inactive Synthroid 75 mcg tablet RxNorm: 001867 1 Tablet(s) PO daily No Start Date 07/10/2014 Inactive hydrocodone 7.5 mg-a cetaminophen 325 mg tablet RxNorm: 164798 Tablet(s) PO as neede d No Start Date 10/21/2014 Inactive Medication Administered Medication Codes Instruc tions Start Date Status Kenalog 40 mg/mL suspension for injection RxNorm: 7535924 1Milliliter 08/08/2016 N o longer Active Kenalog 40 mg/mL suspension for injection RxNorm: 6732911 1Milliliter 12/09/2014 N o longer Active Immunizations Vaccine Codes Date Status SHINGARIX CVX: 121 04/05 completed Assessments Condition Codes Effectiv e Dates Mixed hyperlipidemia ICD-10: E78.2 ICD-9: 272.4 05/08/2018 Essential (primary) hypertension ICD -10: I10 ICD-9: 401.9 05/08/2018 Atrophy of thyroid (acquired) ICD-10 : E03.4 ICD-9: 244.8 05/08/2018 Hypo-osmolality and hyponatremia ICD -10: E87.1 [...] Visit Effective Dates Notes medication follow up 05/08/2018 Hospital Follow Up [...] Item Item Code Result Date Free T4 Vmk013 FREE T4 0.86 ng/dL 05/07/2018 Comp Metabolic Ite441 NA 138 mEq/L 05/07/2018 Comp Metabolic Eot426 K 4.2 mEq/L 05/07/2018 Comp Metabolic Lmt530 CL 104 mEq/L 05/07/2018 Comp Metabolic Kqw252 CO2 28.0 mEq/L 05/07/2018 Comp Metabolic Abo110 AN ION GAP 10 05/07/2018 Comp Metabolic Nws991 GL UCOSE 108 mg/dL 05/07/2018 Comp Metabolic Dgh467 Cr eat 0.9 mg/dL 05/07/2018 Comp Metabolic Ixy443 eG FR 71 ml/min/1.73m2 05/07 Comp Metabolic Caq873 BUN 15 mg/dL 05/07/2018 Comp Metabolic Ynf333 B/ C Ratio 17.6 Ratio 05/07/2018 Comp Metabolic Ifg945 CA LCIUM 9.5 mg/dL 05/07/2018 Comp Metabolic Ulp636 AL K PHOS 100 U/L 05/07/2018 Comp Metabolic Unh836 T(SGOT) 17 U/L 05/07/2018 Comp Metabolic Wqw632 AL T(SGPT) 11 U/L 05/07/2018 Comp Metabolic Hll069 BI LI T 0.4 mg/dL 05/07/2018 Comp Metabolic Gwh658 AL BUMIN 3.9 g/dL 05/07/2018 Comp Metabolic Cld881 TP RO 6.3 g/dL 05/07/2018 Comp Metabolic Gxa987 GL OB 2.4 g/dL 05/07/2018 Comp Metabolic Rym932 A/ G Ratio 1.6 Ratio 05/07/2018 Comp Metabolic Aju155 Os mo 277 mOsmo 05/07/2018 Cbc With [...] 31.6 % 05/07/2018 Cbc With Differential Ord2 [place]% 9.7 % 05/07/2018 Cbc With Differential Ord2 [...] 2.02 K/ul 05/07/2018 Cbc With Differential Ord2 [place] ABS# 0.6 K/ul 05/07/2018 Cbc With Differential [...] 31.1 pg 12/26/2017 Cbc With Differential Ord2 [place]% 9.2 % 12/26/2017 Cbc With Differential Ord2 [...] 1.53 K/ul 12/26/2017 Cbc With Differential Ord2 [place] ABS# 0.7 K/ul 12/26/2017 Cbc With Differential Ord2 Eos ABS# 0.1 K/ul 12/26/2017 Cbc With Differential Ord2 Baso ABS# 0.0 K/ul 12/26/2017 Free T4 Qrh541 FREE T4 0.93 ng/dL 12/26/2017 Comp Metabolic Bxi260 NA 135 mEq/L 12/26/2017 Comp Metabolic Tdj661 K 4.4 mEq/L 12/26/2017 Comp Metabolic Pes030 CL 98 mEq/L 12/26/2017 Comp Metabolic Vtr393 CO2 28.0 mEq/L 12/26/2017 Comp Metabolic Dcu898 AN ION GAP 13 12/26/2017 Comp Metabolic Jhy107 GL UCOSE 92 mg/dL 12/26/2017 Comp Metabolic Dxk148 Cr eat 1.1 mg/dL 12/26/2017 Comp Metabolic Mlg446 eG FR 52 ml/min/1.73m2 12/26 Comp Metabolic Uib056 BUN 25 mg/dL 12/26/2017 Comp Metabolic Uqb728 B/ C Ratio 22.7 Ratio 12/26/2017 Comp Metabolic Hne271 CA LCIUM 9.8 mg/dL 12/26/2017 Comp Metabolic Llx630 AL K PHOS 91 U/L 12/26/2017 Comp Metabolic Jyj836 T(SGOT) 16 U/L 12/26/2017 Comp Metabolic Ppj469 AL T(SGPT) 12 U/L 12/26/2017 Comp Metabolic Fek584 BI LI T 0.5 mg/dL 12/26/2017 Comp Metabolic Zkn943 AL BUMIN 4.3 g/dL 12/26/2017 Comp Metabolic Sxr624 TP RO 6.8 g/dL 12/26/2017 Comp Metabolic Qob001 GL OB 2.5 g/dL 12/26/2017 Comp Metabolic Muw944 A/ G Ratio 1.7 Ratio 12/26/2017 Comp Metabolic Aui405 Os mo 274 mOsmo 12/26/2017 Urine Culture Ucult Prel iminary NO Growth Day 1 06/29 Urine Culture Ucult Comp lete NO Growth Day 2 06/29 Culture Urine [id number] URI NE CULTURE SEE NOTES 04/22/2016 Culture Urine [id number] Con tinued Results 04/22/2016 Urine Culture Ucult Comp lete >100,000 col/ml aerobic grow th sent to ref lab 04/20/2016 Comp Metabolic Psi636 NA 137 mEq/L 02/10/2016 Comp Metabolic Zwl952 K 4.1 mEq/L 02/10/2016 Comp Metabolic Nro358 CL 102 mEq/L 02/10/2016 Comp Metabolic Itx320 CO2 28.0 mEq/L 02/10/2016 Comp Metabolic Ebz360 AN ION GAP 11 02/10/2016 Comp Metabolic Opl465 GL UCOSE 104 mg/dL 02/10/2016 Comp Metabolic Jcf328 Cr eat 0.7 mg/dL 02/10/2016 Comp Metabolic Tim171 eG FR 83 ml/min/1.73m2 02/09 Comp Metabolic Guj054 BUN 14 mg/dL 02/10/2016 Comp Metabolic Xhu377 B/ C Ratio 18.9 Ratio 02/10/2016 Comp Metabolic Jcp681 CA LCIUM 9.7 mg/dL 02/10/2016 Comp Metabolic Mpk260 AL K PHOS 121 U/L 02/10/2016 Comp Metabolic Oyw474 T(SGOT) 19 U/L 02/10/2016 Comp Metabolic Bfm103 AL T(SGPT) 13 U/L 02/10/2016 Comp Metabolic Iye998 BI LI T 0.5 mg/dL 02/10/2016 Comp Metabolic Fgp265 AL BUMIN 4.3 g/dL 02/10/2016 Comp Metabolic Srm270 TP RO 6.8 g/dL 02/10/2016 Comp Metabolic Rsp072 GL OB 2.5 g/dL 02/10/2016 Comp Metabolic Rvt377 A/ G Ratio 1.7 Ratio 02/10/2016 Comp Metabolic Ocf233 Os mo 275 mOsmo 02/10/2016 Lipid Ord30 CHOL 229 mg/dL 02/10/2016 Lipid Ord30 HDL 59.0 mg/dl 02/10/2016 Lipid Ord30 TRIG 252 mg/dL 02/10/2016 Lipid Ord30 LDL 120 mg/dL 02/10/2016 Lipid Ord30 C/HDL 3.9 Ratio 02/10/2016 Free T4 Uky897 FREE T4 0.87 ng/dL 02/10/2016 Tsh Ord6 [...] 29.2 pg 02/10/2016 Cbc With Differential Ord2 [place]% 18.6 % 02/10/2016 Cbc With Differential Ord2 [...] 1.81 K/ul 02/10/2016 Cbc With Differential Ord2 [place] ABS# 1.1 K/ul 02/10/2016 Cbc With Differential Ord2 Eos ABS# 0.1 K/ul 02/10/2016 Cbc With Differential Ord2 Baso ABS# 0.1 K/ul 02/10/2016 Tsh Ord6 hTSH II 0.85 uIU/mL 04/02/2015 Lipid Ord30 CHOL 207 mg/dL 04/02/2015 Lipid Ord30 HDL 68.0 mg/dl 04/02/2015 Lipid Ord30 TRIG 193 mg/dL 04/02/2015 Lipid Ord30 LDL 100 mg/dL 04/02/2015 Lipid Ord30 C/HDL 3.0 Ratio 04/02/2015 Free T4 Bcd339 FREE T4 1.09 ng/dL 04/02/2015 Free T4 Ohv643 FREE T4 0.82 ng/dL 10/15/2014 Tsh Ord6 hTSH II 0.80 uIU/mL 10/15/2014 Review of Systems System Result Effective Dates Constitutional No recent illness 05/08/2018 Constitutional No [...] third 05/08/2018 None Full Exam - General 1995 Musculoskeletal digits and nails PIPs: fourth 05/08/2018 [...] fifth 12/26/2017 None Full Exam - General 1995 Musculoskeletal digits and nails PIPs: swelling 12/26/2017 [...] nodule 09/27/2017 None Full Exam - General 1995 Musculoskeletal digits and nails MCPs: bony enlargement [...] clear 08/30/2016 None Full Exam - General 1995 Ears/Nose/Throat [...] contact 03/07/2016 None Full Exam - General 1995 Constitutional general appearance Development: well developed 02/23/2016 [...] CPT-4: G8553 11/13/2014 Vital Signs Date Vital 05/08/2018 Blood Pressure 1: 148/84 Code: 8480-6 BMI: 31.8 Code: 86791-5 Heart Rate 1: 60 bpm Height: 5'4" SpO2: 96% Weight: 185 lbs 03/27/2018 Blood Pressure 1: 142/84 Code: 8480-6 BMI: 31.2 Code: 97150-3 Heart Rate 1: 75 bpm Height: 5'4" SpO2: 97% Weight: 182 lbs 01/02/2018 Blood Pressure 1: 136/68 Code: 8480-6 BMI: 32.4 Code: 29722-8 Heart Rate 1: 80 bpm Height: 5'4" SpO2: 99% Waist Measure (cm): 104 cm Weight: 189 lbs 12/26/2017 Blood Pressure 1: 138/72 Code: 8480-6 BMI: 31.4 Code: 45362-8 Heart Rate 1: 72 bpm Height: 5'4" SpO2: 96% Weight: 183 lbs 10/17/2017 Blood Pressure 1: 156/72 Code: 8480-6 BMI: 31.4 Code: 24771-7 Heart Rate 1: 81 bpm Height: 5'4" SpO2: 98% Temperature: 36.5 (C ) / 97.7 (F) Weight: 183 lbs 09/27/2017 Blood Pressure 1: 140/82 Code: 8480-6 BMI: 32.1 Code: 55868-0 Heart Rate 1: 82 bpm Height: 5'4" SpO2: 98% Weight: 187 lbs 07/31/2017 Blood Pressure 1: 138/82 Code: 8480-6 Heart Rate 1: 87 bpm SpO2: 99% 03/24/2017 Blood Pressure 1: 146/86 Code: 8480-6 BMI: 31.8 Code: 53161-0 Heart Rate 1: 79 bpm Height: 5'4" SpO2: 96% Temperature: 36.4 (C ) / 97.5 (F) Weight: 185 lbs 08/30/2016 Blood Pressure 1: 142/88 Code: 8480-6 BMI: 31.6 Code: 44025-1 Heart Rate 1: 80 bpm Height: 5'4" SpO2: 93% Weight: 184 lbs 08/08/2016 Blood Pressure 1: 142/76 Code: 8480-6 BMI: 29.9 Code: 44292-4 Heart Rate 1: 80 bpm Height: 5'4" SpO2: 94% Weight: 174 lbs 06/27/2016 Blood Pressure 1: 156/72 Code: 8480-6 BMI: 30.6 Code: 75541-6 Heart Rate 1: 78 bpm Height: 5'4" SpO2: 95% Weight: 178 lbs 05/23/2016 Blood Pressure 1: 146/84 Code: 8480-6 Heart Rate 1: 66 bpm Height: 5'4" SpO2: 94% 04/18/2016 Blood Pressure 1: 148/84 Code: 8480-6 BMI: 30.2 Code: 31268-1 Heart Rate 1: 81 bpm Height: 5'4" SpO2: 97% Weight: 176 lbs 03/07/2016 Blood Pressure 1: 130/78 Code: 8480-6 BMI: 30.0 Code: 70590-9 Heart Rate 1: 85 bpm Height: 5'4" SpO2: 96% Weight: 175 lbs 02/23/2016 Blood Pressure 1: 140/78 Code: 8480-6 BMI: 29.7 Code: 21924-5 Heart Rate 1: 74 bpm Height: 5'4" SpO2: 95% Weight: 173 lbs 09/15/2015 Blood Pressure 1: 140/88 Code: 8480-6 BMI: 29.4 Code: 24635-9 Heart Rate 1: 81 bpm Height: 5'4" SpO2: 97% Weight: 171 lbs 8 oz 05/26/2015 Blood Pressure 1: 150/80 Code: 8480-6 BMI: 31.6 Code: 21893-3 Heart Rate 1: 70 bpm Height: 5'4" SpO2: 96% Weight: 184 lbs 04/09/2015 Blood Pressure 1: 136/74 Code: 8480-6 BMI: 31.4 Code: 96377-4 Heart Rate 1: 91 bpm Height: 5'4" SpO2: 94% Weight: 183 lbs 03/30/2015 Blood Pressure 1: 130/72 Code: 8480-6 BMI: 30.9 Code: 18546-7 Heart Rate 1: 80 bpm Height: 5'4" SpO2: 97% Waist Measure (cm): 102 cm Weight: 180 lbs 03/10/2015 Blood Pressure 1: 152/80 Code: 8480-6 BMI: 31.1 Code: 14719-6 Heart Rate 1: 66 bpm Height: 5'4" SpO2: 98% Weight: 181 lbs 12/16/2014 Blood Pressure 1: 132/88 Code: 8480-6 Blood Pressure 1: 132/88 Code: 8480-6 Heart Rate 1: 88 bpm SpO2: 98% Weight: 183 lbs 12/09/2014 Blood Pressure 1: 140/82 Code: 8480-6 BMI: 31.2 Code: 88388-4 Heart Rate 1: 105 bpm Height: 5'4" SpO2: 93% Weight: 182 lbs 11/13/2014 Blood Pressure 1: 148/88 Code: 8480-6 BMI: 31.8 Code: 75991-8 Heart Rate 1: 54 bpm Height: 5'4" SpO2: 98% Weight: 185 lbs 07/10/2014 Blood Pressure 1: 144/96 Code: 8480-6 BMI: 31.4 Code: 46621-4 Heart Rate 1: 99 bpm Height: 5'4" SpO2: 98% Temperature: 36.8 (C ) / 98.2 (F) Weight: 183 lbs Functional Status No Functional Status data History of Present Illness Symptom Name Status Resu lt Effective Date Notes Location oral intake 05/08/2018 None Onset and [...] frantz sary hypertension 09/27/2017 None hypothyroid 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 P ATIENT, LEVEL IV Diagnosis: Essential (primary) hypertension[ICD10: I10] Diagnosis: Atrophy of thyroid (acquired)[ICD10: E03.4] Diagnosis: Mixed hyperlipidemia[ICD10: E78.2] Shannon Falk MD, [facility] CPT- 4: 98776 05/08/2018 [id number]) [id number] EST. P ATIENT, LEVEL III Diagnosis: Hypo-osmolality and hyponatremia[ICD10: E87.1] Shannon Falk MD, [facility] CPT-4: 33056 03/27/[phone]) [id number] EST. P ATIENT, LEVEL IV Diagnosis: Atrophy of thyroid (acquired)[ICD10: E03.4] Diagnosis: Essential (primary) hypertension[ICD10: I10] Diagnosis: 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[ICD10: M05.741] Diagnosis: 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[ICD10: M05.742] Diagnosis: Pain in thoracic spine[ICD10: M54.6] Shannon Falk MD, [facility] CPT-4: 66292 12/26/2017 ([id number]) 14015 EST. P ATIENT, LEVEL III Diagnosis: Otalgia, left ear[ICD10: H92.02] Diagnosis: Essential (primary) hypertension[ICD10: I10] Elizabet Falk MD, [facility] CPT-4: 01768 10/17/2017 ([id number]) 93023 EST. P ATIENT, LEVEL IV Diagnosis: 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[ICD10: M05.741] Diagnosis: 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[ICD10: M05.742] Diagnosis: Atrophy of thyroid (acquired)[ICD10: E03.4] Diagnosis: Essential (primary) hypertension[ICD10: I10] Shannon Falk MD, C CPT-4: 88011 09/27/2017 ([id number]) Miscellaneou s no charge Diagnosis: Essential (primary) hypertension[ICD10: I10] Elizabet Falk MD, [facility] CPT-4: 73212 07/31/2017 ([id number]) 78423 EST. P ATIENT, LEVEL IV Diagnosis: Essential (primary) hypertension[ICD10: I10] Diagnosis: Atrophy of thyroid (acquired)[ICD10: E03.4] Diagnosis: 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[ICD10: M05.741] Diagnosis: 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[ICD10: M05.742] Shannon Falk MD, [facility] CPT-4: 17949 03/24/2017 ([id number]) 54470 EST. P ATIENT, LEVEL IV Diagnosis: Atrophy of thyroid (acquired)[ICD10: E03.4] Diagnosis: Pleurisy[ICD10: R09.1] Diagnosis: Essential (primary) hypertension[ICD10: I10] Shannon Falk MD, C CPT-4: 21070 08/30/2016 ([id number]) 53340 EST. P ATIENT, LEVEL III Diagnosis: Pleurisy[ICD10: R09.1] Elizabet Falk MD, [facility] CPT-4: 39127 08/08/2016 97814 EST. PATIENT, LEVEL III Diagnosis: Dysuria[ICD10: R30.0] Diagnosis: Other pruritus[ICD10: L29.8] Shila Falk MD, [facility] CPT-4: 35355 06/27/2016 ([id number]) 06514 EST. P ATIENT, LEVEL III Diagnosis: Pain in left foot[ICD10: M79.672] Diagnosis: Pain in left toe(s)[ICD10: M79.675] Elizabet Falk MD, [facility] CPT-4: 66432 05/23/2016 91016 EST. PATIENT, LEVEL III Diagnosis: Candidiasis of vulva and vagina[ICD10: B37.3] Diagnosis: Dysuria[ICD10: R30.0] Shila Falk MD, [facility] CPT-4: 45403 04/18/2016 44673 EST. PATIENT, LEVEL III Diagnosis: Other pruritus[ICD10: L29.8] Diagnosis: Candidiasis of vulva and vagina[ICD10: B37.3] Shila Falk MD, [facility] CPT-4: 16935 03/07/2016 ([id number]) 76474 EST. P ATIENT, LEVEL IV Diagnosis: Essential (primary) hypertension[ICD10: I10] Diagnosis: Pain in left hip[ICD10: M25.552] Diagnosis: Pain in right hip[ICD10: M25.551] Diagnosis: Functional diarrhea[ICD10: K59.1] Diagnosis: Atrophy of thyroid (acquired)[ICD10: E03.4] Shannon Falk MD, [facility] CPT-4: 34497 02/23/2016 ([id number]) 03213 EST. P ATIENT, LEVEL IV Diagnosis: Essential (primary) hypertension[ICD10: I10] Diagnosis: Mixed hyperlipidemia[ICD10: E78.2] Diagnosis: Major depressive disorder, single episode, unspecified[ICD10: F32.9] Shannon Falk MD, [facility] CPT-4: 64923 09/15/2015 52600 EST. PATIENT, LEVEL III Diagnosis: Rash and other nonspecific skin eruption[ICD10: R21] Shila Falk MD, [facility] CPT-4: 70017 05/26/2015 ([id number]) 77853 EST. P ATIENT, LEVEL IV Diagnosis: Essential (primary) hypertension[ICD10: I10] Diagnosis: Foot drop, left foot[ICD10: M21.372] Diagnosis: Sacroiliitis, not elsewhere classified[ICD10: M46.1] Shannon Falk MD, [facility] CPT-4: 73166 04/09/2015 ([id number]) 89907 EST. 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 P ATIENT, LEVEL III Diagnosis: Trochanteric bursitis, left hip[ICD10: M70.62] Diagnosis: Iliotibial band syndrome, left leg[ICD10: M76.32] Diagnosis: Sciatica, left side[ICD10: M54.32] Elizabet Falk MD, [facility] CPT-4: 03983 12/16/2014 ([id number]) 18657 EST. P ATIENT, LEVEL III Diagnosis: Sciatica, left side[ICD10: M54.32] Diagnosis: Sacroiliitis, not elsewhere classified[ICD10: M46.1] Elizabet Falk MD, [facility] CPT-4: 32162 12/09/2014 ([id number]) 77131 EST. 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] Diagnosis: Carpal tunnel syndrome, unspecified upper limb[ICD10: G56.00] Shannon Falk MD, [facility] CPT-4: 23122 11/13/2014 ([id number]) OFFICE VISI T, NEW - LEVEL 4 Diagnosis: ESSENTIAL HYPERTENSION[ICD9: 401.9] Diagnosis: HYPERLIPIDEMIA[ICD9: 272.4] Diagnosis: DEPRESSIVE DISORDER NEC[ICD9: 311] Diagnosis: Diarrhea[ICD9: 787.91] [facility] CPT-4: 47290 07/10/2014 Plan of Care Planned Activity Notes [...] based on previous levels of control. 05/08/2018 Patient Education: Patient Medication Summary Completed 05/08/2018 Patient Education: Hypertension Completed 05/08/2018 Appointment: Shannon Falk WPtel: [address] [place], [place] [phone] (15 min) Moderate 03/28/2018 Visit Plan: Hyponatremia - continue with current treatment - gatorade/powerade, monitor electrolytes. 03/27/2018 Appointment: Shannon Falk WPtel: [address] [place], [place] [address] (15 min) Moderate 03/27/2018 Patient Education: Patient Medication Summary Completed 03/27/2018 Patient Education: Patient Medication Summary Completed 02/01/2018 Appointment: Shannon Falk WPtel: [address] [place], [place] [phone] (15 min) Moderate 01/22/2018 Patient Education: Patient [...] surrogate. 01/02/2018 Appointment: [facility]onalds[facility] [phone] [phone] [facility] - Annual Wellness Visit 01/02/2018 Patient Education: [...] of control. 12/26/2017 [facility]ment: [phone] [facility] (15 min) Moderate 12/26/2017 Patient Education: Patient [...] plan. 10/17/2017 Appointment: Elizabet Donaldson WPtel: [phone] [phone] [place] (15 min) Moderate 10/17/2017 Patient [...] at home. 09/27/2017 Appointment: Shannon Falk [facility]Ptel[facility] [phone] [facility] [place] (15 min) Moderate 09/27/2017 Patient Education: Patient Medication Summary Completed 09/27/2017 Care Plan: Referral Order SNOMED-CT : [id number] Pending 09/27/2017 Appointment: Shannon Falk WPtel[facility] [phone] [facility] [place] (15 min) Moderate 09/21/2017 Appointment: Nurse [...] twice daily. 03/24/2017 Appointment: Shannon Falk WPtel: [facility] (15 min) Moderate 03/24/2017 Patient Education: Patient Medication Summary Completed 03/24/2017 Appointment: Shannon Falk WPtel: [facility] (15 min) Moderate 03/16/2017 Appointment: Shannon Falk WPtel: [facility] (15 min) Moderate 03/01/2017 Visit Plan: Hypertension [...] care. 08/30/2016 Appointment: Shannon Falk WPtel: [phone] [facility] (15 min) Moderate 08/30/2016 Patient Education: Patient [...] of plan. 08/08/2016 Appointment: Elizabet Donaldson WPtel: [phone] [place] (30 min) Complex 08/08/2016 Patient Education: Patient Medication Summary Completed 08/08/2016 Referral: Delia Bernstein WPtel: [address] [place], [place] [address] Referral Initiated 08/01/2016 Visit Plan: Vaginal yeast [...] will refer. 06/27/2016 Appointment: Shila Deluna WPtel: [phone] [facility] [place] (30 min) Complex 06/27/2016 Patient Education: Patient Medication Summary Completed 06/27/2016 Care Plan: Referral Order SNOMED-CT : [id number] Pending 06/27/2016 Visit Plan: Left foot, 1st and 2nd toe pain-suspect fracture of left great toe-will obtain xrays and proceed as indicated. Patient verbalized understanding of plan. 05/23/2016 Appointment: [facility] Donaldson [facility]Ptel[facility] [phone] [phone] (15 min) Moderate 05/23/2016 Patient Education: Patient [...] [facility]Ptel[facility] [phone] [facility] [place] (15 min) Moderate 02/23/2016 Patient Education: [...] Completed 09/15/2015 Appointment: Shannon Falk WPtel: [phone] [facility] (15 min) Moderate 07/29/2015 Visit Plan: Rash [...] - vitamin B12 liquid 2000mcg daily - [facility] sells the liquid b12, folic acid - take daily. metanex 1 capsule twice daily - call office if this seems to help decrease nerve pain increase the night-time dosing of gabapentin to 300mg in AM, Noon, 6pm and 10pm 04/09/2015 Appointment: Shannon Falk WPtel: [phone] [facility] (15 min) Moderate 04/09/2015 Patient Education: [...] 2012. 03/10/2015 Appointment: Shannon Falk WPtel: [phone] [facility] (15 min) Moderate 03/10/2015 Patient Education: Patient Medication Summary Completed 03/10/2015 Care Plan: SCREENINGMAMMOGRAPHYDIGITAL LOINC : 22998-8 Ordered 03/10/2015 Care Plan: Referral Order SNOMED-CT : [id number] Ordered 03/10/2015 Care Plan: Referral Order SNOMED-CT : [id number] Ordered 03/10/2015 Visit Plan: Left hip bursitis/Iliot [...] 12/16/2014 Patient Education: .Pippa espinosa Exercise for Sciati ca Completed 12/16/2014 Care Plan: Referral Order SNOMED-CT : [id number] Ordered 12/16/2014 Visit Plan: Sacroiliitis - back [...] tunnel brace. 11/13/2014 Appointment: Shannon Falk WPtel: [facility] Follow up 11/13/2014 Patient Education: Patient Medication [...] stomach pain. ALIGN PROBIOTIC - TAKE DAILY ([employer] OR [employer] -TWO OTHER PROBIOTICS THAT ARE HIGH QUALITY) CIPROFLOXACIN TO BE TAKEN IF NEEDED IF THE DIARRHEA DOES NOT IMPROVE OR IF IT WORSENS. 07/10/2014 Appointment: Shannon Falk WPtel: [address] [place], [place] [address] [place] (S) New Patient 07/10/2014 Patient Education: Patient Medication Summary Completed 07/10/2014 Patient Education: Hypertension Completed 07/10/2014 Referral: Darci Spann Referral Relationship Referral: External, Ordering Provider Referral Appointment Requested Referral: External, Ordering Provider 09/28 Referral info faxed to [facility] 10/03 They tried calling her with an appt and she did not answer. Called patient and she will call them back. Appoint ment Requested Referral: External, Ordering Provider Referral Appointment Requested Referral: Delia Bernstein WPtel: [address] [place], [place] [address] Referral Initiated Referral: External, Ordering Provider Referral Completed Instructions Comment cata' urmila brina e - look up on facebook . Hypertension - well controlled - elgin [...] allergy spray. ALIGN PROBIOTIC - TAKE DAILY ([employer] OR [employer] -TWO OTHER PROBIOTICS THAT ARE HIGH QUALITY) [...] ALIGN PROBIOTIC - TAKE DAILY ([employer] OR [employer] -TWO OTHER PROBIOTICS THAT ARE HIGH [...] vitamin B12 liquid 2 000mcg daily - [facility] sells the liquid b12 folic [...] - vitamin B12 liquid 2000mcg daily - [facility] sells the liquid b12, folic [...]
--- OUTSIDE RECORDS SUMMARY | 2019-06-07 16:35 | XMS REPORT | CCD ---
Author Author Dalila Falk Organization Shannon Falk MD, [facility] Address [address] [place] [address] Phone Care Team Providers Care Laser Operator Name Role Phone PP Unavailable CCM Unavailable Summary Purpose Interface Exchange Insurance Providers Payer name Policy type / Coverage type Covered democrat ID Effective Begin Date Effective End Date WPS Medicare Part B Medicare Part B [id number] Unknown [place] [employer] Insurance M edicare Part B [id number] Unkn own Family history Brother Diagnosis Age [...] Unknown 2 07/10/[address]: 706702232 Has never smoked or chewed tobacco 07/10/2014 Alcohol history Unknown occasionally drinks alcohol 07/10/2014 Allergies, Adverse Reactions, Alerts Substance Reaction Codes Entered Date Inactivated Date Status Remicade hives RxNorm: 589708 03/24/2017 No Inactive Date Active * NO KNOWN FOOD LALA RGIES Unknown 07/10/2014 No Inactive Date Active SULFA(SULFONAMIDE AN TIBIOTICS) Unknown 07/10/2014 No Inactive Date Active Past Medical History Illness Codes Condition Status Onset Date Resolved Date Hypo-osmolality and hyponatremia ICD-9: 276.1 ICD-10: E87.1 [...] Z00.00 Active 03/29/2015 Unknown Atrophy of thyroid ( acquired) ICD-9: [...] Condition Codes Effectiv e Dates Condition Status Hypo-osmolality and hyponatremia ICD-9: 276.1 ICD-10: E87.1 03/27/2018 Active Other abnormal and i nconclusive findings on diagnostic imaging of breast ICD-9: 793.89 ICD-10: R92.8 02/01/2018 Active Encounter for screen ing mammogram for malignant neoplasm of breast ICD-9: V76.10 ICD-10: Z12.31 01/05/2018 Active Encounter for genera l adult medical examination without abnormal findings ICD-9: V70.0 ICD-10: Z00.00 03/29/2015 Active Atrophy of thyroid ( acquired) ICD-9: [...] Date Stop Date Sta tus Fill Instructions Celebrex 200 mg capsule RxNorm: 128800 1 Capsule(s) PO BID 05/03/2018 04/27/2019 Active citalopram 20 mg tablet RxNorm: 863741 Tablet(s) TAKE ONE (1) TABLET BY MOUTH D AILY 05/03/2018 04/27/2019 Ac tive hydrocodone 7.5 mg-a cetaminophen 325 mg tablet RxNorm: 567884 1-2 Tablet(s) PO Q4H as needed 05/01/2018 05/15/2018 Active cefdinir 300 mg capsule RxNorm: 892416 1 Capsule(s) PO BID 04/17/2018 04/23/2018 Inactive cefdinir 300 mg capsule RxNorm: 748011 1 Capsule(s) PO BID 04/17/2018 04/16/2018 Inactive clobetasol 0.05 % to pical cream RxNorm: 295827 1 dime size amount Ap plication TOP daily as needed vaginal irritation 03/27/2018 07/24/2018 Active metoprolol succinate ER 25 mg tablet,extended release 24 hr RxNorm: 710953 1 Tablet(s) PO daily 03/27/2018 10/22/2018 Active Synthroid 75 mcg tablet RxNorm: 083564 Tablet(s) TAKE 1 TABLET BY MOUTH DAILY 02/07/2018 09/04/2018 Ac tive Generic For:*SYNTHROID 0.075MG TAB 11/14 9:16:33 AM N O T I C E Last quantity doesn't match original quantity hydrocodone 7.5 mg-a cetaminophen 325 mg tablet RxNorm: 343870 1-2 Tablet(s) PO Q4H as needed 10/12/2017 10/26/2017 Inactive Synthroid 75 mcg tablet RxNorm: 934869 Tablet(s) TAKE 1 TABLET BY MOUTH DAILY 08/09/2017 02/06/2018 In active Generic For:*SYNTHROID 0.075MG TAB 10/22 9:16:33 AM N O T I C E Last quantity doesn't match original quantity hydrocodone 7.5 mg-a cetaminophen 325 mg tablet RxNorm: 058134 1-2 Tablet(s) PO Q4H as needed 05/22/2017 06/20/2017 Inactive amlodipine 10 mg tablet RxNorm: 835353 1 Tablet(s) PO daily 1 Tablet(s) PO ashlie y 05/09/2017 09/26/2017 In active citalopram 20 mg tablet RxNorm: 397145 Tablet(s) TAKE ONE (1) TABLET BY MOUTH D AILY 05/09/2017 05/02/2018 Inactive losartan 100 mg tablet RxNorm: 530146 1 Tablet(s) PO daily TAKE 1 TABLET BY MO UTH DAILY 05/09/2017 01/01/2018 Inactive gabapentin 300 mg ca psule RxNorm: 365458 1 Capsule(s) PO daily 03/24/2017 No Stop Date Active Celebrex 200 mg capsule RxNorm: 184513 1 Capsule(s) PO BID 1 Capsule(s) PO ashlie y 03/24/2017 03/23/2017 In active Celebrex 200 mg capsule RxNorm: 770727 1 Capsule(s) PO BID 03/24/2017 03/18/2018 Inactive amlodipine 10 mg tablet RxNorm: 081457 1 Tablet(s) PO daily 1 Tablet(s) PO ashlie y 03/24/2017 05/08/2017 In active Lipitor 40 mg tablet RxNorm: 386529 Tablet(s) TAKE ONE TABLET BY MOUTH AT BE [facility] 02/14/2017 09/26/2017 Inactive hydrocodone 7.5 mg-a cetaminophen 325 mg tablet RxNorm: 136361 1-2 Tablet(s) PO Q4H as needed 01/16/2017 02/14/2017 Inactive scopolamine 1.5 mg t ransdermal patch (1 mg over 3 days) RxNorm: 810950 1 Patch TD Q72H 11/25/2016 12/04/2016 Inactive scopolamine 1.5 mg t ransdermal patch (1 mg over 3 days) RxNorm: 613614 1 Patch TD Q72H 11/25/2016 11/24/2016 Inactive losartan 100 mg tablet RxNorm: 167833 1 Tablet(s) PO daily TAKE 1 TABLET BY MO UT DAILY 11/14/2016 05/08/2017 Inactive Generic For:COZAAR 100MG TA B 05/17/2016 8:31:51 AM Synthroid 75 mcg tablet RxNorm: 763753 TAKE 1 TABLET BY MOUTH DAILY 11/14/2016 06/11/2017 Inactive Generic For:*SYNTHROID 0.075MG TAB 10/22 9:16:33 AM N O T I C E Last quantity doesn't match original quantity citalopram 20 mg tablet RxNorm: 642435 TAKE ONE (1) TABLET BY MOUTH DAILY 11/14/2016 05/08/2017 In active Generic For:CELEXA 20MG TAB 11/14/2016 8:30:49 AM N O T I C E Last quantity doesn't match original quantity prednisone 10 mg tab lets in a dose pack RxNorm: 115567 1 Tablet(s) PO UD 09/30/2016 10/05/2016 In active 6-5-4-3-2-1 hydrocodone 7.5 mg-a cetaminophen 325 mg tablet RxNorm: 510498 1-2 Tablet(s) PO Q4H as needed 09/20/2016 01/15/2017 Inactive amlodipine 5 mg tablet RxNorm: 492801 TAKE ONE TABLET BY MOUTH EVERY DAY 08/15/2016 03/23/2017 In active Generic For:NORVASC 5 MG TABLET 017 3:56:26 PM N O T I C E Last quantity doesn't match original quantity Kenalog 40 mg/mL [place] pension for injection RxNorm: 3026147 1 Milliliter(s) Inj 08/08/2016 08/08/2016 In active prednisone 10 mg tab lets in a dose pack RxNorm: 411106 1 Tablet(s) PO UD 08/08/2016 08/07/2016 In active prednisone 10 mg tab lets in a dose pack RxNorm: 334251 1 Tablet(s) PO UD 08/08/2016 08/13/2016 In active 6-5-4-3-2-1 Diflucan 150 mg tablet RxNorm: 559991 1 Tablet(s) PO daily 06/27/2016 07/10/2016 Inactive Synthroid 75 mcg tablet RxNorm: 646761 TAKE 1 TABLET BY MOUTH DAILY 06/16/2016 11/13/2016 Inactive Generic For:*SYNTHROID 0.075MG TAB pt wo uld like a 90 day supply N O T I C E Last quantity doesn't match original quantity hydrocodone 7.5 mg-a cetaminophen 325 mg tablet RxNorm: 385012 1-2 Tablet(s) PO Q4H as needed 06/06/2016 09/19/2016 Inactive citalopram 20 mg tablet RxNorm: 647266 TAKE ONE (1) TABLET BY MOUTH DAILY 05/18/2016 11/13/2016 In active Generic For:CELEXA 20MG TAB 05/17/2016 8:32:02 AM Celebrex 200 mg capsule RxNorm: 054228 1 Capsule(s) PO daily 05/17/2016 03/23/2017 Inactive losartan 100 mg tablet RxNorm: 924876 TAKE 1 TABLET BY MOUTH DAILY 05/17/2016 11/12/2016 Inactive Generic For:COZAAR 100MG TAB 05/17/2016 8:31:51 AM amlodipine 5 mg tablet RxNorm: 540183 1 Tablet(s) PO daily 05/10/2016 08/14/2016 Inactive Cipro 500 mg tablet RxNorm: 522721 1 Tablet(s) PO BID 05/04/2016 05/03/2016 Inactive Cipro 500 mg tablet RxNorm: 896930 1 Tablet(s) PO BID 05/04/2016 05/13/2016 Inactive Diflucan 150 mg tablet RxNorm: 335058 1 Tablet(s) PO daily 04/18/2016 05/01/2016 Inactive Monistat Soothing Ca re 1.2 % topical gel RxNorm: 4636696 1 Application TOP BI D 03/07/2016 01/01/2018 In active Diflucan 150 mg tablet RxNorm: 056850 1 Tablet(s) PO daily 03/07/2016 03/13/2016 Inactive Lipitor 40 mg tablet RxNorm: 673675 Tablet(s) TAKE ONE TABLET BY MOUTH AT BE DTITX 02/23/2016 02/13/2017 Inactive citalopram 20 mg tablet RxNorm: 149604 TAKE ONE (1) TABLET BY MOUTH DAILY 02/18/2016 05/17/2016 In active Generic For:CELEXA 20MG TAB refill reque st losartan 100 mg tablet RxNorm: 262076 Tablet(s) 1 Tablet, 1 time per Day 02/09/2016 05/16/2016 In active INSURANCE WILL NOT COVER ADELA ANDREWS UNTIL OTHER FORMULARIES HAVE BEEN TRIED AND FAILED hydrocodone 7.5 mg-a cetaminophen 325 mg tablet RxNorm: 242076 1-2 Tablet(s) PO Q4H as needed 02/03/2016 06/05/2016 Inactive Synthroid 75 mcg tablet RxNorm: 016597 Tablet(s) TAKE 1 TABLET BY MOUTH DAILY 01/19/2016 06/15/2016 In active Generic For:*SYNTHROID 0.075MG TAB 0 04/2014 10:00:02 AM N O T I C E PRESCRIPTION PREVIOUSLY AUTHORIZED BY DOCTOR:SWATI BEY prednisone 10 mg tab lets in a dose pack RxNorm: 887127 1 Tablet(s) PO UD 01/07/2016 02/22/2016 In active 6-5-4-3-2-1 amlodipine 10 mg tablet RxNorm: 101760 1 Tablet(s) PO daily 12/07/2015 11/30/2016 Inactive citalopram 20 mg tablet RxNorm: 902866 TAKE ONE (1) TABLET BY MOUTH DAILY 11/17/2015 02/14/2016 In active Generic For:CELEXA 20MG TAB refill reque st hydrocodone 7.5 mg-a cetaminophen 325 mg tablet RxNorm: 058845 1-2 Tablet(s) PO Q4H as needed 10/08/2015 02/02/2016 Inactive losartan 100 mg tablet RxNorm: 905441 Tablet(s) 1 Tablet, 1 time per Day 2015 02/07/2016 In active INSURANCE WILL NOT COVER ADELA ANDREWS UNTIL OTHER FORMULARIES HAVE BEEN TRIED AND FAILED citalopram 20 mg tablet RxNorm: 588015 TAKE ONE (1) TABLET BY MOUTH DAILY 08/10/2015 11/07/2015 In active Generic For:CELEXA 20MG TAB 08/10/2015 8:59:58 AM Synthroid 75 mcg tablet RxNorm: 575543 Tablet(s) TAKE 1 TABLET BY MOUTH DAILY 05/26/2015 12/21/2015 In active Generic For:*SYNTHROID 0.075MG TAB 0 04/2014 10:00:02 AM N O T I C E PRESCRIPTION PREVIOUSLY AUTHORIZED BY DOCTOR:SWATI BEY prednisone 20 mg tablet RxNorm: 906805 2 Tablet(s) PO daily 05/26/2015 05/30/2015 Inactive Lipitor 40 mg tablet RxNorm: 920668 TAKE ONE TABLET BY MOUTH AT BEDTIME 05/14/2015 02/07/2016 In active Generic For:LIPITOR 40MG TAB 05/13/2015 8:26:33 AM N O T I C E PRESCRIPTION PREVIOUSLY AUTHORIZED BY DOCTOR:SWATI BEY hydrocodone 7.5 mg-a cetaminophen 325 mg tablet RxNorm: 930177 1-2 Tablet(s) PO Q4H as needed 05/11/2015 10/07/2015 Inactive Celebrex 200 mg capsule RxNorm: 483529 1 Capsule(s) PO daily 05/07/2015 04/30/2016 Inactive citalopram 20 mg tablet RxNorm: 609830 TAKE ONE (1) TABLET BY MOUTH DAILY 04/27/2015 07/25/2015 In active Generic For:CELEXA 20MG TAB 04/26/2015 7:30:08 PM gabapentin 300 mg ca psule RxNorm: 587295 1 Capsule(s) PO QID 04/09/2015 04/02/2016 Inactive citalopram 20 mg tablet RxNorm: 714988 TAKE ONE (1) TABLET BY MOUTH DAILY 01/26/2015 04/25/2015 In active Generic For:CELEXA 20MG TAB 01/26/2015 8:40:11 AM losartan 100 mg tablet RxNorm: 704838 1 Tablet, 1 time per Day 01/26/2015 03/29/2015 Inactive INSURANCE WILL NOT COVER ADELA ANDREWS UNTIL OTHER FORMULARIES HAVE BEEN TRIED AND FAILED hydrocodone 7.5 mg-a cetaminophen 325 mg tablet RxNorm: 955077 1-2 Tablet(s) PO Q4H as needed 01/23/2015 05/10/2015 Inactive Neurontin 100 mg cap almaz RxNorm: 851551 1 Capsule(s) PO TID 01/14/2015 03/09/2015 Inactive Neurontin 100 mg cap almaz RxNorm: 039359 1 Capsule(s) PO TID 01/14/2015 01/13/2015 Inactive Keflex 500 mg capsule RxNorm: 379325 1 Capsule(s) PO TID 01/06/2015 01/05/2015 Inactive Keflex 500 mg capsule RxNorm: 559475 1 Capsule(s) PO TID 01/06/2015 01/12/2015 Inactive hydrocodone 7.5 mg-a cetaminophen 325 mg tablet RxNorm: 831828 1-2 Tablet(s) PO Q4H as needed 12/29/2014 01/22/2015 Inactive Duexis 800 mg-26.6 m g tablet RxNorm: 8222665 1 Tablet(s) PO TID a s needed 12/19/2014 03/29/2015 In active Duexis 800 mg-26.6 m g tablet RxNorm: 3357985 1 Tablet(s) PO TID a s needed 12/19/2014 12/18/2014 In active Kenalog 40 mg/mL [place] pension for injection RxNorm: 2568371 1 Milliliter(s) Inj 12/09/2014 12/09/2014 In active prednisone 10 mg tab lets in a dose pack RxNorm: 408453 1 Tablet(s) PO UD 12/09/2014 12/14/2014 In active 6-5-4-3-2-1 amlodipine 10 mg tablet RxNorm: 781244 1 Tablet(s) PO daily 11/13/2014 11/07/2015 Inactive citalopram 20 mg tablet RxNorm: 876231 TAKE ONE (1) TABLET BY MOUTH DAILY 10/23/2014 01/20/2015 In active Generic For:CELEXA 20MG TAB 10/23/2014 4:32:02 PM N O T I C E PRESCRIPTION PREVIOUSLY AUTHORIZED BY DOCTOR:SWATI BEY hydrocodone 7.5 mg-a cetaminophen 325 mg tablet RxNorm: 043353 1-2 Tablet(s) PO Q4H as needed 10/22/2014 12/28/2014 Inactive Synthroid 75 mcg tablet RxNorm: 361375 TAKE 1 TABLET BY MOUTH DAILY 09/22/2014 04/19/2015 Inactive Generic For:*SYNTHROID 0.075MG TAB 04/2014 10:00:02 AM N O T I C E PRESCRIPTION PREVIOUSLY AUTHORIZED BY DOCTOR:SWATI BEY amlodipine 5 mg tablet RxNorm: 509820 1 Tablet(s) PO daily 08/25/2014 11/12/2014 Inactive Synthroid 75 mcg tablet RxNorm: 889400 1 Tablet(s) PO daily ecept a 1/2 tab on Monday07/11/2014 09/21/2014 Inactive Flonase Allergy Reli ef 50 mcg/actuation nasal spray,suspension RxNorm: 1 [place] NASAL BID 07/10/2014 12/06/2014 Inactive Benicar 20 mg tablet RxNorm: 424827 1 Tablet(s) PO daily No Start Date Active methotrexate sodium 2.5 mg tablet RxNorm: 959768 3 Tablet(s) PO weekly No Start Date 04/08/2015 Inactive Aldactone 25 mg tablet RxNorm: 330765 1 Tablet(s) PO daily No Start Date 03/26/2018 Inactive gabapentin 300 mg ca psule RxNorm: 257826 1 Capsule(s) PO TID No Start Date 04/08/2015 Inactive Plaquenil 200 mg tablet RxNorm: 327056 1 Tablet(s) PO BID No Start Date 05/22/2016 Inactive losartan 100 mg tablet RxNorm: 894021 1 Tablet(s) PO daily No Start Date 01/25/2015 Inactive Remicade intravenous RxNorm: 856196 intravenous No Start Date 03/23/2017 Inactive amlodipine 5 mg tablet RxNorm: 067442 1 Tablet(s) PO daily No Start Date 08/24/2014 Inactive Celebrex 200 mg capsule RxNorm: 938410 1 Capsule(s) PO daily No Start Date 10/16/2017 Inactive citalopram 20 mg tablet RxNorm: 144661 1 Tablet(s) PO daily No Start Date 10/22/2014 Inactive Synthroid 88 mcg tablet RxNorm: 787897 1 Tablet(s) PO daily No Start Date 07/09/2014 Inactive Arava 20 mg tablet RxNorm: 222282 1 Tablet(s) PO daily No Start Date 01/01/2018 Inactive Lipitor 40 mg tablet RxNorm: 359044 1 Tablet(s) PO daily No Start Date 05/13/2015 Inactive chlorthalidone 25 mg tablet RxNorm: 613944 1 Tablet(s) PO daily No Start Date 03/26/2018 Inactive Synthroid 75 mcg tablet RxNorm: 586865 1 Tablet(s) PO daily No Start Date 07/10/2014 Inactive hydrocodone 7.5 mg-a cetaminophen 325 mg tablet RxNorm: 553794 Tablet(s) PO as neede d No Start Date 10/21/2014 Inactive Medication Administered Medication Codes Instruc tions Start Date Status Kenalog 40 mg/mL suspension for injection RxNorm: 8090513 1Milliliter 08/08/2016 N o longer Active Kenalog 40 mg/mL suspension for injection RxNorm: 1425827 1Milliliter 12/09/2014 N o longer Active Immunizations Vaccine Codes Date Status SHINGARIX CVX: 121 04/05 completed Assessments Condition Codes Effectiv e Dates Hypo-osmolality and hyponatremia ICD -10: E87.1 ICD-9: [...] ICD-9: 714.0 12/26/2017 Atrophy of thyroid (acquired) ICD-10 : E03.4 ICD-9: 244.8 12/26/2017 Essential (primary) hypertension ICD -10: I10 ICD-9: 401.9 12/26/2017 Rheumatoid arthritis with rheumatoid fac tor [...] Visit Reason For Visit Effective Dates Notes Hospital Follow Up 03/27/2018 Annual Medicare Wellness [...] Item Item Code Result Date Free T4 [id number] FREE T4 0.86 ng/dL 05/07/2018 Comp Metabolic Ljn499 NA 138 mEq/L 05/07/2018 Comp Metabolic Jrm185 K 4.2 mEq/L 05/07/2018 Comp Metabolic Smo136 CL 104 mEq/L 05/07/2018 Comp Metabolic Mao026 CO2 28.0 mEq/L 05/07/2018 Comp Metabolic Brg129 AN ION GAP 10 05/07/2018 Comp Metabolic Onr616 GL UCOSE 108 mg/dL 05/07/2018 Comp Metabolic Agk690 Cr eat 0.9 mg/dL 05/07/2018 Comp Metabolic Qke114 eG FR 71 ml/min/1.73m2 05/07 Comp Metabolic Vsb347 BUN 15 mg/dL 05/07/2018 Comp Metabolic Avn199 B/ C Ratio 17.6 Ratio 05/07/2018 Comp Metabolic Cbl466 CA LCIUM 9.5 mg/dL 05/07/2018 Comp Metabolic Mrz594 AL K PHOS 100 U/L 05/07/2018 Comp Metabolic Ulb446 T(SGOT) 17 U/L 05/07/2018 Comp Metabolic Uub135 AL T(SGPT) 11 U/L 05/07/2018 Comp Metabolic Ufl303 BI LI T 0.4 mg/dL 05/07/2018 Comp Metabolic Wvv386 AL BUMIN 3.9 g/dL 05/07/2018 Comp Metabolic Coc233 TP RO 6.3 g/dL 05/07/2018 Comp Metabolic Azn830 GL OB 2.4 g/dL 05/07/2018 Comp Metabolic Joj885 A/ G Ratio 1.6 Ratio 05/07/2018 Comp Metabolic Cea757 Os mo 277 mOsmo 05/07/2018 Cbc With Differential Ord2 WBC 6.40 K/ul 05/07/2018 Cbc With Differential Ord2 RBC 3.98 M/ul 05/07/2018 Cbc With Differential Ord2 HGB 11.5 g/dl 05/07/2018 Cbc With Differential Ord2 HCT 35.7 % 05/07/2018 Cbc With Differential Ord2 Neut% 55.8 % 05/07/2018 Cbc With Differential Ord2 MCV 89.7 fl 05/07/2018 Cbc With Differential Ord2 Lymph% 31.6 % 05/07/2018 Cbc With Differential Ord2 MCH 28.9 pg 05/07/2018 Cbc With Differential Ord2 [place]% 9.7 % 05/07/2018 Cbc With Differential Ord2 MCHC 32.2 pg 05/07/2018 Cbc With Differential Ord2 Eos% 2.3 % 05/07/2018 Cbc With Differential Ord2 PLT 253 K/ul 05/07/2018 Cbc With Differential Ord2 Baso% 0.6 % 05/07/2018 Cbc With Differential Ord2 RDW 13.6 % 05/07/2018 Cbc With Differential Ord2 Neut ABS# 3.57 K/ul 05/07/2018 Cbc With Differential Ord2 Lymph ABS# 2.02 K/ul 05/07/2018 Cbc With Differential Ord2 [place] ABS# 0.6 K/ul 05/07/2018 Cbc With Differential [...] 31.1 pg 12/26/2017 Cbc With Differential Ord2 [place]% 9.2 % 12/26/2017 Cbc With Differential Ord2 [...] 1.53 K/ul 12/26/2017 Cbc With Differential Ord2 [place] ABS# 0.7 K/ul 12/26/2017 Cbc With Differential Ord2 Eos ABS# 0.1 K/ul 12/26/2017 Cbc With Differential Ord2 Baso ABS# 0.0 K/ul 12/26/2017 Free T4 Ahm765 FREE T4 0.93 ng/dL 12/26/2017 Comp Metabolic Lwk298 NA 135 mEq/L 12/26/2017 Comp Metabolic Aty997 K 4.4 mEq/L 12/26/2017 Comp Metabolic Xob803 CL 98 mEq/L 12/26/2017 Comp Metabolic Ohi059 CO2 28.0 mEq/L 12/26/2017 Comp Metabolic Dns912 AN ION GAP 13 12/26/2017 Comp Metabolic Yuq313 GL UCOSE 92 mg/dL 12/26/2017 Comp Metabolic Faj623 Cr eat 1.1 mg/dL 12/26/2017 Comp Metabolic Iif696 eG FR 52 ml/min/1.73m2 12/26 Comp Metabolic Ftb150 BUN 25 mg/dL 12/26/2017 Comp Metabolic Fad228 B/ C Ratio 22.7 Ratio 12/26/2017 Comp Metabolic Akt715 CA LCIUM 9.8 mg/dL 12/26/2017 Comp Metabolic Nnc572 AL K PHOS 91 U/L 12/26/2017 Comp Metabolic Xyw725 T(SGOT) 16 U/L 12/26/2017 Comp Metabolic Ksf915 AL T(SGPT) 12 U/L 12/26/2017 Comp Metabolic Jml592 BI LI T 0.5 mg/dL 12/26/2017 Comp Metabolic Ngh061 AL BUMIN 4.3 g/dL 12/26/2017 Comp Metabolic Wud186 TP RO 6.8 g/dL 12/26/2017 Comp Metabolic Ycz158 GL OB 2.5 g/dL 12/26/2017 Comp Metabolic Ljn987 A/ G Ratio 1.7 Ratio 12/26/2017 Comp Metabolic Axd752 Os mo 274 mOsmo 12/26/2017 Urine Culture Ucult Prel iminary NO Growth Day 1 06/29 Urine Culture Ucult Comp lete NO Growth Day 2 06/29 Culture Urine [id number] URI NE CULTURE SEE NOTES 04/22/2016 Culture Urine [id number] Con tinued Results 04/22/2016 Urine Culture Ucult Comp lete >100,000 col/ml aerobic grow th sent to ref lab 04/20/2016 Comp Metabolic Bgy421 NA 137 mEq/L 02/10/2016 Comp Metabolic Mjb756 K 4.1 mEq/L 02/10/2016 Comp Metabolic Ipm685 CL 102 mEq/L 02/10/2016 Comp Metabolic Nlv972 CO2 28.0 mEq/L 02/10/2016 Comp Metabolic Rti917 AN ION GAP 11 02/10/2016 Comp Metabolic Fhz433 GL UCOSE 104 mg/dL 02/10/2016 Comp Metabolic Nzk659 Cr eat 0.7 mg/dL 02/10/2016 Comp Metabolic Ulr641 eG FR 83 ml/min/1.73m2 02/09 Comp Metabolic Isb194 BUN 14 mg/dL 02/10/2016 Comp Metabolic Des016 B/ C Ratio 18.9 Ratio 02/10/2016 Comp Metabolic Sre146 CA LCIUM 9.7 mg/dL 02/10/2016 Comp Metabolic Ili560 AL K PHOS 121 U/L 02/10/2016 Comp Metabolic Rrf227 T(SGOT) 19 U/L 02/10/2016 Comp Metabolic Mlm030 AL T(SGPT) 13 U/L 02/10/2016 Comp Metabolic Sjr052 BI LI T 0.5 mg/dL 02/10/2016 Comp Metabolic Qpx452 AL BUMIN 4.3 g/dL 02/10/2016 Comp Metabolic Hhv719 TP RO 6.8 g/dL 02/10/2016 Comp Metabolic Geh930 GL OB 2.5 g/dL 02/10/2016 Comp Metabolic Vgb940 A/ G Ratio 1.7 Ratio 02/10/2016 Comp Metabolic Dql977 Os mo 275 mOsmo 02/10/2016 Lipid Ord30 CHOL 229 mg/dL 02/10/2016 Lipid Ord30 HDL 59.0 mg/dl 02/10/2016 Lipid Ord30 TRIG 252 mg/dL 02/10/2016 Lipid Ord30 LDL 120 mg/dL 02/10/2016 Lipid Ord30 C/HDL 3.9 Ratio 02/10/2016 Free T4 Gyg756 FREE T4 0.87 ng/dL 02/10/2016 Tsh Ord6 [...] 29.2 pg 02/10/2016 Cbc With Differential Ord2 [place]% 18.6 % 02/10/2016 Cbc With Differential Ord2 [...] 1.81 K/ul 02/10/2016 Cbc With Differential Ord2 [place] ABS# 1.1 K/ul 02/10/2016 Cbc With Differential Ord2 Eos ABS# 0.1 K/ul 02/10/2016 Cbc With Differential Ord2 Baso ABS# 0.1 K/ul 02/10/2016 Tsh Ord6 hTSH II 0.85 uIU/mL 04/02/2015 Lipid Ord30 CHOL 207 mg/dL 04/02/2015 Lipid Ord30 HDL 68.0 mg/dl 04/02/2015 Lipid Ord30 TRIG 193 mg/dL 04/02/2015 Lipid Ord30 LDL 100 mg/dL 04/02/2015 Lipid Ord30 C/HDL 3.0 Ratio 04/02/2015 Free T4 Yde755 FREE T4 1.09 ng/dL 04/02/2015 Free T4 Uax828 FREE T4 0.82 ng/dL 10/15/2014 Tsh Ord6 hTSH II 0.80 uIU/mL 10/15/2014 Review of Systems System Result Effective Dates Constitutional No recent illness 03/27/2018 Constitutional No [...] sounds 03/24/2017 None Full Exam - General 1995 Abdomen abdominal exam Overall: no tenderness 03/24/2017 None Full Exam - General 1995 Abdomen abdominal exam Bowel sounds: hyperactive 03/24/2017 [...] CPT-4: G8553 11/13/2014 Vital Signs Date Vital 03/27/2018 Blood Pressure 1: 142/84 Code: 8480-6 BMI: 31.2 Code: 25940-0 Heart Rate 1: 75 bpm Height: 5'4" SpO2: 97% Weight: 182 lbs 01/02/2018 Blood Pressure 1: 136/68 Code: 8480-6 BMI: 32.4 Code: 17729-7 Heart Rate 1: 80 bpm Height: 5'4" SpO2: 99% Waist Measure (cm): 104 cm Weight: 189 lbs 12/26/2017 Blood Pressure 1: 138/72 Code: 8480-6 BMI: 31.4 Code: 52618-0 Heart Rate 1: 72 bpm Height: 5'4" SpO2: 96% Weight: 183 lbs 10/17/2017 Blood Pressure 1: 156/72 Code: 8480-6 BMI: 31.4 Code: 59533-5 Heart Rate 1: 81 bpm Height: 5'4" SpO2: 98% Temperature: 36.5 (C ) / 97.7 (F) Weight: 183 lbs 09/27/2017 Blood Pressure 1: 140/82 Code: 8480-6 BMI: 32.1 Code: 68457-4 Heart Rate 1: 82 bpm Height: 5'4" SpO2: 98% Weight: 187 lbs 07/31/2017 Blood Pressure 1: 138/82 Code: 8480-6 Heart Rate 1: 87 bpm SpO2: 99% 03/24/2017 Blood Pressure 1: 146/86 Code: 8480-6 BMI: 31.8 Code: 35340-9 Heart Rate 1: 79 bpm Height: 5'4" SpO2: 96% Temperature: 36.4 (C ) / 97.5 (F) Weight: 185 lbs 08/30/2016 Blood Pressure 1: 142/88 Code: 8480-6 BMI: 31.6 Code: 08282-3 Heart Rate 1: 80 bpm Height: 5'4" SpO2: 93% Weight: 184 lbs 08/08/2016 Blood Pressure 1: 142/76 Code: 8480-6 BMI: 29.9 Code: 96940-8 Heart Rate 1: 80 bpm Height: 5'4" SpO2: 94% Weight: 174 lbs 06/27/2016 Blood Pressure 1: 156/72 Code: 8480-6 BMI: 30.6 Code: 12712-6 Heart Rate 1: 78 bpm Height: 5'4" SpO2: 95% Weight: 178 lbs 05/23/2016 Blood Pressure 1: 146/84 Code: 8480-6 Heart Rate 1: 66 bpm Height: 5'4" SpO2: 94% 04/18/2016 Blood Pressure 1: 148/84 Code: 8480-6 BMI: 30.2 Code: 17273-7 Heart Rate 1: 81 bpm Height: 5'4" SpO2: 97% Weight: 176 lbs 03/07/2016 Blood Pressure 1: 130/78 Code: 8480-6 BMI: 30.0 Code: 31458-5 Heart Rate 1: 85 bpm Height: 5'4" SpO2: 96% Weight: 175 lbs 02/23/2016 Blood Pressure 1: 140/78 Code: 8480-6 BMI: 29.7 Code: 71035-5 Heart Rate 1: 74 bpm Height: 5'4" SpO2: 95% Weight: 173 lbs 09/15/2015 Blood Pressure 1: 140/88 Code: 8480-6 BMI: 29.4 Code: 00091-4 Heart Rate 1: 81 bpm Height: 5'4" SpO2: 97% Weight: 171 lbs 8 oz 05/26/2015 Blood Pressure 1: 150/80 Code: 8480-6 BMI: 31.6 Code: 32720-1 Heart Rate 1: 70 bpm Height: 5'4" SpO2: 96% Weight: 184 lbs 04/09/2015 Blood Pressure 1: 136/74 Code: 8480-6 BMI: 31.4 Code: 10459-8 Heart Rate 1: 91 bpm Height: 5'4" SpO2: 94% Weight: 183 lbs 03/30/2015 Blood Pressure 1: 130/72 Code: 8480-6 BMI: 30.9 Code: 94699-8 Heart Rate 1: 80 bpm Height: 5'4" SpO2: 97% Waist Measure (cm): 102 cm Weight: 180 lbs 03/10/2015 Blood Pressure 1: 152/80 Code: 8480-6 BMI: 31.1 Code: 24449-2 Heart Rate 1: 66 bpm Height: 5'4" SpO2: 98% Weight: 181 lbs 12/16/2014 Blood Pressure 1: 132/88 Code: 8480-6 Blood Pressure 1: 132/88 Code: 8480-6 Heart Rate 1: 88 bpm SpO2: 98% Weight: 183 lbs 12/09/2014 Blood Pressure 1: 140/82 Code: 8480-6 BMI: 31.2 Code: 17956-4 Heart Rate 1: 105 bpm Height: 5'4" SpO2: 93% Weight: 182 lbs 11/13/2014 Blood Pressure 1: 148/88 Code: 8480-6 BMI: 31.8 Code: 93923-1 Heart Rate 1: 54 bpm Height: 5'4" SpO2: 98% Weight: 185 lbs 07/10/2014 Blood Pressure 1: 144/96 Code: 8480-6 BMI: 31.4 Code: 81001-8 Heart Rate 1: 99 bpm Height: 5'4" SpO2: 98% Temperature: 36.8 (C ) / 98.2 (F) Weight: 183 lbs Functional Status No Functional Status data History of Present Illness Symptom Name Status Resu lt Effective Date Notes _ Other: _ 03/27/2018 None Quality acute [...] 01/03/20 18 None Annual Medicare Wellness Exam Bridger hernandez (self reported) diagnosed with elevated cholesterol 01/02/2018 [...] frantz sary hypertension 09/27/2017 None hypothyroid Quality 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 P ATIENT, LEVEL III Diagnosis: Hypo-osmolality and hyponatremia[ICD10: E87.1] Shannon Falk MD, C CPT-4: 65718 03/27/2018 ([id number]) 16409 EST. P ATIENT, LEVEL IV Diagnosis: Atrophy of thyroid (acquired)[ICD10: E03.4] Diagnosis: Essential (primary) hypertension[ICD10: I10] Diagnosis: 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[ICD10: M05.741] Diagnosis: 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[ICD10: M05.742] Diagnosis: Pain in thoracic spine[ICD10: M54.6] Shannon Falk MD, [facility] CPT-4: 67511 12/26/2017 ([id number]) 77408 EST. P ATIENT, LEVEL III Diagnosis: Otalgia, left ear[ICD10: H92.02] Diagnosis: Essential (primary) hypertension[ICD10: I10] Elizabet Falk MD, [facility] CPT-4: 64886 10/17/2017 ([id number]) 03191 EST. P ATIENT, LEVEL IV Diagnosis: 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[ICD10: M05.741] Diagnosis: 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[ICD10: M05.742] Diagnosis: Atrophy of thyroid (acquired)[ICD10: E03.4] Diagnosis: Essential (primary) hypertension[ICD10: I10] Shannon Falk MD, [facility] CPT-4: 48266 09/27/2017 ([id number]) Miscellaneou s no charge Diagnosis: Essential (primary) hypertension[ICD10: I10] Elizabet Falk MD, [facility] CPT-4: 45709 07/31/2017 ([id number]) 12486 EST. P ATIENT, LEVEL IV Diagnosis: Essential (primary) hypertension[ICD10: I10] Diagnosis: Atrophy of thyroid (acquired)[ICD10: E03.4] Diagnosis: 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[ICD10: M05.741] Diagnosis: 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[ICD10: M05.742] Shannon Falk MD, [facility] CPT-4: 58178 03/24/2017 ([id number]) 49001 EST. P ATIENT, LEVEL IV Diagnosis: Atrophy of thyroid (acquired)[ICD10: E03.4] Diagnosis: Pleurisy[ICD10: R09.1] Diagnosis: Essential (primary) hypertension[ICD10: I10] Shannon Falk MD, [facility] CPT-4: 27126 08/30/2016 ([id number]) 35485 EST. P ATIENT, LEVEL III Diagnosis: Pleurisy[ICD10: R09.1] Elizabet Falk MD, [facility] CPT-4: 69848 08/08/2016 61606 EST. PATIENT, LEVEL III Diagnosis: Dysuria[ICD10: R30.0] Diagnosis: Other pruritus[ICD10: L29.8] Shila Falk MD, [facility] CPT-4: 67793 06/27/2016 ([id number]) 42438 EST. P ATIENT, LEVEL III Diagnosis: Pain in left foot[ICD10: M79.672] Diagnosis: Pain in left toe(s)[ICD10: M79.675] Elizabet Falk MD, [facility] CPT-4: 30997 05/23/2016 89422 EST. PATIENT, LEVEL III Diagnosis: Candidiasis of vulva and vagina[ICD10: B37.3] Diagnosis: Dysuria[ICD10: R30.0] Shila Falk MD, [facility] CPT-4: 72447 04/18/2016 77481 EST. PATIENT, LEVEL III Diagnosis: Other pruritus[ICD10: L29.8] Diagnosis: Candidiasis of vulva and vagina[ICD10: B37.3] Shila Falk MD, [facility] CPT-4: 86418 03/07/2016 ([id number]) 68023 EST. 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 P ATIENT, LEVEL IV Diagnosis: Essential (primary) hypertension[ICD10: I10] Diagnosis: Mixed hyperlipidemia[ICD10: E78.2] Diagnosis: Major depressive disorder, single episode, unspecified[ICD10: F32.9] Shannon Falk MD, [facility] CPT-4: 29503 09/15/2015 20199 EST. PATIENT, LEVEL III Diagnosis: Rash and other nonspecific skin eruption[ICD10: R21] Shila Falk MD, [facility] CPT-4: 71336 05/26/2015 ([id number]) 34267 EST. P ATIENT, LEVEL IV Diagnosis: Essential (primary) hypertension[ICD10: I10] Diagnosis: Foot drop, left foot[ICD10: M21.372] Diagnosis: Sacroiliitis, not elsewhere classified[ICD10: M46.1] Shannon Falk MD, C CPT-4: 41932 04/09/2015 ([id number]) 80307 EST. 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 P ATIENT, LEVEL III Diagnosis: Trochanteric bursitis, left hip[ICD10: M70.62] Diagnosis: Iliotibial band syndrome, left leg[ICD10: M76.32] Diagnosis: Sciatica, left side[ICD10: M54.32] Elizabet Falk MD, [facility] CPT-4: 46771 12/16/2014 ([id number]) 94464 EST. P ATIENT, LEVEL III Diagnosis: Sciatica, left side[ICD10: M54.32] Diagnosis: Sacroiliitis, not elsewhere classified[ICD10: M46.1] Elizabet Falk MD, [facility] CPT-4: 26731 12/09/2014 ([id number]) 91869 EST. 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 (15 min) Moderate 03/28/2018 Visit Plan: Hyponatremia - continue with current treatment - gatorade/powerade, monitor electrolytes. 03/27/2018 Appointment: Shannon Falk WPtel: [address] [place], [place] [id number] (15 min) Moderate 03/27/2018 Patient Education: Patient Medication Summary Completed 03/27/2018 Patient Education: Patient Medication Summary Completed 02/01/2018 Appointment: Shannon Falk WPtel: [address] [place], [place] [id number] (15 min) Moderate 01/22/2018 Patient Education: Patient [...] surrogate. 01/02/2018 Appointment: [facility] [phone] [phone] [facility] - Annual Wellness Visit 01/02/2018 [...] control. 12/26/2017 [facility]ment: [phone] [facility] (15 min) Moderate 12/26/2017 Patient Education: Patient [...] plan. 10/17/2017 Appointment: [facility]onal[facility] [phone] [phone] [place] (15 min) Moderate 10/17/2017 [...] home. 09/27/2017 Appointment: Shannon Falk WPtel: [phone] [facility] (15 min) Moderate 09/27/2017 Patient Education: Patient Medication Summary Completed 09/27/2017 Care Plan: Referral Order SNOMED-CT : [id number] Pending 09/27/2017 Appointment: Shannon Falk WPtel: [facility] (15 min) Moderate 09/21/2017 Appointment: Nurse Visit [...] daily. 03/24/2017 Appointment: [facility] [phone] [facility] [place] (15 min) Moderate 03/24/2017 Patient Education: Patient Medication Summary Completed 03/24/2017 Appointment: [facility] [phone] [facility] [place] (15 min) Moderate 03/16/2017 [facility]ment: [facility] [phone] [facility] [place] (15 min) Moderate 03/01/2017 Visit Plan: [...] supportive care. 08/30/2016 Appointment: Shannon Falk WPtel: [address] [place], [place] [phone] (15 min) Moderate 08/30/2016 Patient Education: Patient [...] of plan. 08/08/2016 Appointment: Elizabet Donaldson WPtel: [address] [place], [place] [phone] (30 min) Complex 08/08/2016 Patient Education: Patient Medication Summary Completed 08/08/2016 Referral: Delia Bernstein WPtel: [address] [place], [place] [phone] Referral Initiated 08/01/2016 Visit Plan: Vaginal yeast [...] will refer. 06/27/2016 Appointment: Shila Deluna WPtel: [address] [place], [place] [id number] (30 min) Complex 06/27/2016 Patient Education: Patient Medication Summary Completed 06/27/2016 Care Plan: Referral Order SNOMED-CT : [id number] Pending 06/27/2016 Visit Plan: Left foot, 1st and 2nd toe pain-suspect fracture of left great toe-will obtain xrays and proceed as indicated. Patient verbalized understanding of plan. 05/23/2016 Appointment: Elizabet Donaldson WPtel: [address] [place], [place] [phone] (15 min) Moderate 05/23/2016 Patient Education: Patient [...] start probiotics 02/23/2016 Appointment: Shannon Falk WPtel: [address] [place], [place] [phone] (15 min) Moderate 02/23/2016 Patient Education: Patient [...] Completed 09/15/2015 [facility]ment: [phone] [facility] ([facility] min) Moderate 07/29/2015 Visit Plan: Rash [...] 10pm 04/09/2015 App[facility]ment: [facility] [phone] [facility] (15 min) Moderate 04/09/2015 Patient [...] in 2012. 03/10/2015 Appointment: Shannon Falk WPtel: [address] [place], [place] [id number] (15 min) Moderate 03/10/2015 Patient Education: Patient Medication Summary Completed 03/10/2015 Care Plan: SCREENINGMAMMOGRAPHYDIGITAL LOINC : 55441-6 Ordered 03/10/2015 Care Plan: Referral Order SNOMED-CT : [id number] Ordered 03/10/2015 Care Plan: Referral Order SNOMED-CT : [id number] Ordered 03/10/2015 Visit Plan: Left hip bursitis/Iliot [...] 12/16/2014 Patient Education: Eryn espinosa Exercise for Juan bailey Completed 12/16/2014 Care Plan: Referral Order SNOMED-CT : [id number] Ordered 12/16/2014 Visit Plan: Sacroiliitis - back [...] 12/09/2014 Patient Education: .Pippa espinosa Exercise for Juan ca Completed 12/09/2014 Visit Plan: Hypertension - [...] 11/13/2014 Appointment: Shannon Falk WPtel: [facility] Follow up 11/13/2014 Patient Education: Patient Medication [...] stomach pain. ALIGN PROBIOTIC - TAKE DAILY ([employer] OR [employer] -TWO OTHER PROBIOTICS THAT ARE HIGH QUALITY) CIPROFLOXACIN TO BE TAKEN IF NEEDED IF THE DIARRHEA DOES NOT IMPROVE OR IF IT WORSENS. 07/10/2014 Appointment: Shannon Falk WPtel: [phone] [facility] [place] ([place]) New Patient 07/10/2014 Patient Education: Patient Medication Summary Completed 07/10/2014 Patient Education: Hypertension Completed 07/10/2014 Referral: Darci Spann Referral Relationship Referral: External, Ordering Provider Referral Appointment Requested Referral: External, Ordering Provider 09/28 Referral info faxed to [facility] 10/03 They tried calling her with an appt and she did not answer. Called patient and she will call them back. Appoint ment Requested Referral: External, Ordering Provider Referral Appointment Requested Referral: Delia Bernstein WPtel: [phone] [place], [place] [phone] Referral Initiated Referral: External, Ordering Provider Referral Completed Instructions Comment luanne gonsalves e - look up on [employer] . Hypertension - well controlled - elgin [...] allergy spray. ALIGN PROBIOTIC - TAKE DAILY ([employer] OR [employer] -TWO OTHER PROBIOTICS THAT ARE HIGH QUALITY) [...] stomach pain. ALIGN PROBIOTIC - TAKE DAILY ([employer] -TWO OTHER PROBIOTICS THAT ARE HIGH QUALITY) [...] vitamin B12 liquid 2 000mcg daily - [facility] sells the liquid b12 folic acid [...]
--- OUTSIDE RECORDS SUMMARY | 2019-06-07 16:37 | XMS REPORT | CCD ---
Author Author Dalila Falk Organization Shannon Falk MD, [facility] Address [address] [place] [address] Phone Care Team Providers Care Lathe Set Up Operator Name Role Phone PP Unavailable CCM Unavailable Summary Purpose Interface Exchange Insurance Providers Payer name Policy type / Coverage type Covered constitution party ID Effective Begin Date Effective End Date WPS Medicare Part B Medicare Part B [id number] Unknown [place] [employer] Insurance M edicare Part B [id number] Unkn own Family history Brother Diagnosis Age [...] Unknown 2 07/10/[address]: [id number] Has never smoked or chewed tobacco 07/10/2014 Alcohol history Unknown occasionally drinks alcohol 07/10/2014 Allergies, Adverse Reactions, Alerts Substance Reaction Codes Entered Date Inactivated Date Status Remicade hives RxNorm: 447806 03/24/2017 No Inactive Date Active * NO [...] Fill Instructions Celebrex 200 mg capsule RxNorm: 827888 1 Capsule(s) PO BID 05/03/2018 04/27/2019 Active citalopram 20 mg tablet RxNorm: 645639 Tablet(s) TAKE ONE (1) TABLET BY MOUTH D AILY 05/03/2018 04/27/2019 Ac tive hydrocodone 7.5 mg-a cetaminophen 325 mg tablet RxNorm: 610229 1-2 Tablet(s) PO Q4H as needed 05/01/2018 05/15/2018 Active cefdinir 300 mg capsule RxNorm: 288704 1 Capsule(s) PO BID 04/17/2018 04/23/2018 Inactive cefdinir 300 mg capsule RxNorm: 676753 1 Capsule(s) PO BID 04/17/2018 04/16/2018 Inactive clobetasol 0.05 % to pical cream RxNorm: 981947 1 dime size amount Ap plication TOP daily as needed vaginal irritation 03/27/2018 07/24/2018 Active metoprolol succinate ER 25 mg tablet,extended release 24 hr RxNorm: 394280 1 Tablet(s) PO daily 03/27/2018 10/22/2018 Active Synthroid 75 mcg tablet RxNorm: 866422 Tablet(s) TAKE 1 TABLET BY MOUTH DAILY 02/07/2018 09/04/2018 Ac tive Generic For:*SYNTHROID 0.075MG TAB 11/14 9:16:33 AM N O T I C E Last quantity doesn't match original quantity hydrocodone 7.5 mg-a cetaminophen 325 mg tablet RxNorm: 244177 1-2 Tablet(s) PO Q4H as needed 10/12/2017 10/26/2017 Inactive Synthroid 75 mcg tablet RxNorm: 613512 Tablet(s) TAKE 1 TABLET BY MOUTH DAILY 08/09/2017 02/06/2018 In active Generic For:*SYNTHROID 0.075MG TAB 10/22 9:16:33 AM N O T I C E Last quantity doesn't match original quantity hydrocodone 7.5 mg-a cetaminophen 325 mg tablet RxNorm: 275496 1-2 Tablet(s) PO Q4H as needed 05/22/2017 06/20/2017 Inactive amlodipine 10 mg tablet RxNorm: 423853 1 Tablet(s) PO daily 1 Tablet(s) PO ashlie y 05/09/2017 09/26/2017 In active citalopram 20 mg tablet RxNorm: 612422 Tablet(s) TAKE ONE (1) TABLET BY MOUTH D AILY 05/09/2017 05/02/2018 Inactive losartan 100 mg tablet RxNorm: 106834 1 Tablet(s) PO daily TAKE 1 TABLET BY MO UTH DAILY 05/09/2017 01/01/2018 Inactive gabapentin 300 mg ca psule RxNorm: 639975 1 Capsule(s) PO daily 03/24/2017 No Stop Date Active Celebrex 200 mg capsule RxNorm: 366215 1 Capsule(s) PO BID 1 Capsule(s) PO ashlie y 03/24/2017 03/23/2017 In active Celebrex 200 mg capsule RxNorm: 694591 1 Capsule(s) PO BID 03/24/2017 03/18/2018 Inactive amlodipine 10 mg tablet RxNorm: 527879 1 Tablet(s) PO daily 1 Tablet(s) PO ashlie y 03/24/2017 05/08/2017 In active Lipitor 40 mg tablet RxNorm: 508477 Tablet(s) TAKE ONE TABLET BY MOUTH AT BE [facility] 02/14/2017 09/26/2017 Inactive hydrocodone 7.5 mg-a cetaminophen 325 mg tablet RxNorm: 185022 1-2 Tablet(s) PO Q4H as needed 01/16/2017 02/14/2017 Inactive scopolamine 1.5 mg t ransdermal patch (1 mg over 3 days) RxNorm: 644969 1 Patch TD Q72H 11/25/2016 12/04/2016 Inactive scopolamine 1.5 mg t ransdermal patch (1 mg over 3 days) RxNorm: 495001 1 Patch TD Q72H 11/25/2016 11/24/2016 Inactive losartan 100 mg tablet RxNorm: 672769 1 Tablet(s) PO daily TAKE 1 TABLET BY MO UT DAILY 11/14/2016 05/08/2017 Inactive Generic For:COZAAR 100MG TA B 05/17/2016 8:31:51 AM Synthroid 75 mcg tablet RxNorm: 838190 TAKE 1 TABLET BY MOUTH DAILY 11/14/2016 06/11/2017 Inactive Generic For:*SYNTHROID 0.075MG TAB 10/22 9:16:33 AM N O T I C E Last quantity doesn't match original quantity citalopram 20 mg tablet RxNorm: 197664 TAKE ONE (1) TABLET BY MOUTH DAILY 11/14/2016 05/08/2017 In active Generic For:CELEXA 20MG TAB 11/14/2016 8:30:49 AM N O T I C E Last quantity doesn't match original quantity prednisone 10 mg tab lets in a dose pack RxNorm: 841455 1 Tablet(s) PO UD 09/30/2016 10/05/2016 In active 6-5-4-3-2-1 hydrocodone 7.5 mg-a cetaminophen 325 mg tablet RxNorm: 104394 1-2 Tablet(s) PO Q4H as needed 09/20/2016 01/15/2017 Inactive amlodipine 5 mg tablet RxNorm: 838492 TAKE ONE TABLET BY MOUTH EVERY DAY 08/15/2016 03/23/2017 In active Generic For:NORVASC 5 MG TABLET 017 3:56:26 PM N O T I C E Last quantity doesn't match original quantity Kenalog 40 mg/mL [place] pension for injection RxNorm: 0651001 1 Milliliter(s) Inj 08/08/2016 08/08/2016 In active prednisone 10 mg tab lets in a dose pack RxNorm: 529348 1 Tablet(s) PO UD 08/08/2016 08/07/2016 In active prednisone 10 mg tab lets in a dose pack RxNorm: 531869 1 Tablet(s) PO UD 08/08/2016 08/13/2016 In active 6-5-4-3-2-1 Diflucan 150 mg tablet RxNorm: 439210 1 Tablet(s) PO daily 06/27/2016 07/10/2016 Inactive Synthroid 75 mcg tablet RxNorm: 004555 TAKE 1 TABLET BY MOUTH DAILY 06/16/2016 11/13/2016 Inactive Generic For:*SYNTHROID 0.075MG TAB pt wo uld like a 90 day supply N O T I C E Last quantity doesn't match original quantity hydrocodone 7.5 mg-a cetaminophen 325 mg tablet RxNorm: 132947 1-2 Tablet(s) PO Q4H as needed 06/06/2016 09/19/2016 Inactive citalopram 20 mg tablet RxNorm: 926073 TAKE ONE (1) TABLET BY MOUTH DAILY 05/18/2016 11/13/2016 In active Generic For:CELEXA 20MG TAB 05/17/2016 8:32:02 AM Celebrex 200 mg capsule RxNorm: 614630 1 Capsule(s) PO daily 05/17/2016 03/23/2017 Inactive losartan 100 mg tablet RxNorm: 764340 TAKE 1 TABLET BY MOUTH DAILY 05/17/2016 11/12/2016 Inactive Generic For:COZAAR 100MG TAB 05/17/2016 8:31:51 AM amlodipine 5 mg tablet RxNorm: 647602 1 Tablet(s) PO daily 05/10/2016 08/14/2016 Inactive Cipro 500 mg tablet RxNorm: 474088 1 Tablet(s) PO BID 05/04/2016 05/03/2016 Inactive Cipro 500 mg tablet RxNorm: 444325 1 Tablet(s) PO BID 05/04/2016 05/13/2016 Inactive Diflucan 150 mg tablet RxNorm: 538771 1 Tablet(s) PO daily 04/18/2016 05/01/2016 Inactive Monistat Soothing Ca re 1.2 % topical gel RxNorm: 6420813 1 Application TOP BI D 03/07/2016 01/01/2018 In active Diflucan 150 mg tablet RxNorm: 952915 1 Tablet(s) PO daily 03/07/2016 03/13/2016 Inactive Lipitor 40 mg tablet RxNorm: 753938 Tablet(s) TAKE ONE TABLET BY MOUTH AT BE DTINE 02/23/2016 02/13/2017 Inactive citalopram 20 mg tablet RxNorm: 684503 TAKE ONE (1) TABLET BY MOUTH DAILY 02/18/2016 05/17/2016 In active Generic For:CELEXA 20MG TAB refill reque st losartan 100 mg tablet RxNorm: 820228 Tablet(s) 1 Tablet, 1 time per Day 02/09/2016 05/16/2016 In active INSURANCE WILL NOT COVER ADELA ANDREWS UNTIL OTHER FORMULARIES HAVE BEEN TRIED AND FAILED hydrocodone 7.5 mg-a cetaminophen 325 mg tablet RxNorm: 287029 1-2 Tablet(s) PO Q4H as needed 02/03/2016 06/05/2016 Inactive Synthroid 75 mcg tablet RxNorm: 707268 Tablet(s) TAKE 1 TABLET BY MOUTH DAILY 01/19/2016 06/15/2016 In active Generic For:*SYNTHROID 0.075MG TAB 0 04/2014 10:00:02 AM N O T I C E PRESCRIPTION PREVIOUSLY AUTHORIZED BY DOCTOR:SWATI BYE prednisone 10 mg tab lets in a dose pack RxNorm: 904141 1 Tablet(s) PO UD 01/07/2016 02/22/2016 In active 6-5-4-3-2-1 amlodipine 10 mg tablet RxNorm: 502168 1 Tablet(s) PO daily 12/07/2015 11/30/2016 Inactive citalopram 20 mg tablet RxNorm: 786388 TAKE ONE (1) TABLET BY MOUTH DAILY 11/17/2015 02/14/2016 In active Generic For:CELEXA 20MG TAB refill reque st hydrocodone 7.5 mg-a cetaminophen 325 mg tablet RxNorm: 444169 1-2 Tablet(s) PO Q4H as needed 10/08/2015 02/02/2016 Inactive losartan 100 mg tablet RxNorm: 403330 Tablet(s) 1 Tablet, 1 time per Day 2015 02/07/2016 In active INSURANCE WILL NOT COVER ADELA ANDREWS UNTIL OTHER FORMULARIES HAVE BEEN TRIED AND FAILED citalopram 20 mg tablet RxNorm: 458569 TAKE ONE (1) TABLET BY MOUTH DAILY 08/10/2015 11/07/2015 In active Generic For:CELEXA 20MG TAB 08/10/2015 8:59:58 AM Synthroid 75 mcg tablet RxNorm: 652288 Tablet(s) TAKE 1 TABLET BY MOUTH DAILY 05/26/2015 12/21/2015 In active Generic For:*SYNTHROID 0.075MG TAB 0 04/2014 10:00:02 AM N O T I C E PRESCRIPTION PREVIOUSLY AUTHORIZED BY DOCTOR:SWATI BEY prednisone 20 mg tablet RxNorm: 845431 2 Tablet(s) PO daily 05/26/2015 05/30/2015 Inactive Lipitor 40 mg tablet RxNorm: 702304 TAKE ONE TABLET BY MOUTH AT BEDTIME 05/14/2015 02/07/2016 In active Generic For:LIPITOR 40MG TAB 05/13/2015 8:26:33 AM N O T I C E PRESCRIPTION PREVIOUSLY AUTHORIZED BY DOCTOR:SWATI BEY hydrocodone 7.5 mg-a cetaminophen 325 mg tablet RxNorm: 740758 1-2 Tablet(s) PO Q4H as needed 05/11/2015 10/07/2015 Inactive Celebrex 200 mg capsule RxNorm: 006231 1 Capsule(s) PO daily 05/07/2015 04/30/2016 Inactive citalopram 20 mg tablet RxNorm: 177646 TAKE ONE (1) TABLET BY MOUTH DAILY 04/27/2015 07/25/2015 In active Generic For:CELEXA 20MG TAB 04/26/2015 7:30:08 PM gabapentin 300 mg ca psule RxNorm: 052835 1 Capsule(s) PO QID 04/09/2015 04/02/2016 Inactive citalopram 20 mg tablet RxNorm: 071223 TAKE ONE (1) TABLET BY MOUTH DAILY 01/26/2015 04/25/2015 In active Generic For:CELEXA 20MG TAB 01/26/2015 8:40:11 AM losartan 100 mg tablet RxNorm: 176760 1 Tablet, 1 time per Day 01/26/2015 03/29/2015 Inactive INSURANCE WILL NOT COVER ADELA ANDREWS UNTIL OTHER FORMULARIES HAVE BEEN TRIED AND FAILED hydrocodone 7.5 mg-a cetaminophen 325 mg tablet RxNorm: 095408 1-2 Tablet(s) PO Q4H as needed 01/23/2015 05/10/2015 Inactive Neurontin 100 mg cap almaz RxNorm: 323127 1 Capsule(s) PO TID 01/14/2015 03/09/2015 Inactive Neurontin 100 mg cap almaz RxNorm: 473540 1 Capsule(s) PO TID 01/14/2015 01/13/2015 Inactive Keflex 500 mg capsule RxNorm: 236743 1 Capsule(s) PO TID 01/06/2015 01/05/2015 Inactive Keflex 500 mg capsule RxNorm: 833351 1 Capsule(s) PO TID 01/06/2015 01/12/2015 Inactive hydrocodone 7.5 mg-a cetaminophen 325 mg tablet RxNorm: 638604 1-2 Tablet(s) PO Q4H as needed 12/29/2014 01/22/2015 Inactive Duexis 800 mg-26.6 m g tablet RxNorm: 9539294 1 Tablet(s) PO TID a s needed 12/19/2014 03/29/2015 In active Duexis 800 mg-26.6 m g tablet RxNorm: 7376397 1 Tablet(s) PO TID a s needed 12/19/2014 12/18/2014 In active Kenalog 40 mg/mL [place] pension for injection RxNorm: 1955040 1 Milliliter(s) Inj 12/09/2014 12/09/2014 In active prednisone 10 mg tab lets in a dose pack RxNorm: 738572 1 Tablet(s) PO UD 12/09/2014 12/14/2014 In active 6-5-4-3-2-1 amlodipine 10 mg tablet RxNorm: 652927 1 Tablet(s) PO daily 11/13/2014 11/07/2015 Inactive citalopram 20 mg tablet RxNorm: 330561 TAKE ONE (1) TABLET BY MOUTH DAILY 10/23/2014 01/20/2015 In active Generic For:CELEXA 20MG TAB 10/23/2014 4:32:02 PM N O T I C E PRESCRIPTION PREVIOUSLY AUTHORIZED BY DOCTOR:SWATI BEY hydrocodone 7.5 mg-a cetaminophen 325 mg tablet RxNorm: 147663 1-2 Tablet(s) PO Q4H as needed 10/22/2014 12/28/2014 Inactive Synthroid 75 mcg tablet RxNorm: 193702 TAKE 1 TABLET BY MOUTH DAILY 09/22/2014 04/19/2015 Inactive Generic For:*SYNTHROID 0.075MG TAB 04/2014 10:00:02 AM N O T I C E PRESCRIPTION PREVIOUSLY AUTHORIZED BY DOCTOR:SWATI BEY amlodipine 5 mg tablet RxNorm: 284156 1 Tablet(s) PO daily 08/25/2014 11/12/2014 Inactive Synthroid 75 mcg tablet RxNorm: 011466 1 Tablet(s) PO daily ecept a 1/2 tab on Monday07/11/2014 09/21/2014 Inactive Flonase Allergy Reli ef 50 mcg/actuation nasal spray,suspension RxNorm: 1 [place] NASAL BID 07/10/2014 12/06/2014 Inactive Benicar 20 mg tablet RxNorm: 269879 1 Tablet(s) PO daily No Start Date Active methotrexate sodium 2.5 mg tablet RxNorm: 767087 3 Tablet(s) PO weekly No Start Date 04/08/2015 Inactive Aldactone 25 mg tablet RxNorm: 514307 1 Tablet(s) PO daily No Start Date 03/26/2018 Inactive gabapentin 300 mg ca psule RxNorm: 300767 1 Capsule(s) PO TID No Start Date 04/08/2015 Inactive Plaquenil 200 mg tablet RxNorm: 724726 1 Tablet(s) PO BID No Start Date 05/22/2016 Inactive losartan 100 mg tablet RxNorm: 049399 1 Tablet(s) PO daily No Start Date 01/25/2015 Inactive Remicade intravenous RxNorm: 263353 intravenous No Start Date 03/23/2017 Inactive amlodipine 5 mg tablet RxNorm: 830318 1 Tablet(s) PO daily No Start Date 08/24/2014 Inactive Celebrex 200 mg capsule RxNorm: 786543 1 Capsule(s) PO daily No Start Date 10/16/2017 Inactive citalopram 20 mg tablet RxNorm: 067768 1 Tablet(s) PO daily No Start Date 10/22/2014 Inactive Synthroid 88 mcg tablet RxNorm: 846921 1 Tablet(s) PO daily No Start Date 07/09/2014 Inactive Arava 20 mg tablet RxNorm: 344974 1 Tablet(s) PO daily No Start Date 01/01/2018 Inactive Lipitor 40 mg tablet RxNorm: 230744 1 Tablet(s) PO daily No Start Date 05/13/2015 Inactive chlorthalidone 25 mg tablet RxNorm: 553280 1 Tablet(s) PO daily No Start Date 03/26/2018 Inactive Synthroid 75 mcg tablet RxNorm: 899797 1 Tablet(s) PO daily No Start Date 07/10/2014 Inactive hydrocodone 7.5 mg-a cetaminophen 325 mg tablet RxNorm: 164548 Tablet(s) PO as neede d No Start Date 10/21/2014 Inactive Medication Administered Medication Codes Instruc tions Start Date Status Kenalog 40 mg/mL suspension for injection RxNorm: 3163718 1Milliliter 08/08/2016 N o longer Active Kenalog 40 mg/mL suspension for injection RxNorm: 7672352 1Milliliter 12/09/2014 N o longer Active Immunizations [...] Observation Code Item Item Code Result Date Metabolic Ord15 NA 137 mEq/L 03/27/2018 Metabolic [...] 31.1 pg 12/26/2017 Cbc With Differential Ord2 [place]% 9.2 % 12/26/2017 Cbc With Differential Ord2 [...] 1.53 K/ul 12/26/2017 Cbc With Differential Ord2 [place] ABS# 0.7 K/ul 12/26/2017 Cbc With Differential Ord2 Eos ABS# 0.1 K/ul 12/26/2017 Cbc With Differential Ord2 Baso ABS# 0.0 K/ul 12/26/2017 Free T4 Gmr298 FREE T4 0.93 ng/dL 12/26/2017 Comp Metabolic Mpo731 NA 135 mEq/L 12/26/2017 Comp Metabolic Srz481 K 4.4 mEq/L 12/26/2017 Comp Metabolic Qje112 CL 98 mEq/L 12/26/2017 Comp Metabolic Jrb924 CO2 28.0 mEq/L 12/26/2017 Comp Metabolic Tng285 AN ION GAP 13 12/26/2017 Comp Metabolic Hym356 GL UCOSE 92 mg/dL 12/26/2017 Comp Metabolic Lyc678 Cr eat 1.1 mg/dL 12/26/2017 Comp Metabolic Odk196 eG FR 52 ml/min/1.73m2 12/26 Comp Metabolic Msh189 BUN 25 mg/dL 12/26/2017 Comp Metabolic Kgk061 B/ C Ratio 22.7 Ratio 12/26/2017 Comp Metabolic Rfp417 CA LCIUM 9.8 mg/dL 12/26/2017 Comp Metabolic Cja021 AL K PHOS 91 U/L 12/26/2017 Comp Metabolic Olw096 T(SGOT) 16 U/L 12/26/2017 Comp Metabolic Fme155 AL T(SGPT) 12 U/L 12/26/2017 Comp Metabolic Znu499 BI LI T 0.5 mg/dL 12/26/2017 Comp Metabolic Vtx516 AL BUMIN 4.3 g/dL 12/26/2017 Comp Metabolic Tdm724 TP RO 6.8 g/dL 12/26/2017 Comp Metabolic Rpy239 GL OB 2.5 g/dL 12/26/2017 Comp Metabolic Vdw538 A/ G Ratio 1.7 Ratio 12/26/2017 Comp Metabolic Djb778 Os mo 274 mOsmo 12/26/2017 Urine Culture Ucult Prel iminary NO Growth Day 1 06/29 Urine Culture Ucult Comp lete NO Growth Day 2 06/29 Culture Urine [id number] URI NE CULTURE SEE NOTES 04/22/2016 Culture Urine [id number] Con tinued Results 04/22/2016 Urine Culture Ucult Comp lete >100,000 col/ml aerobic grow th sent to ref lab 04/20/2016 Comp Metabolic Bhb982 NA 137 mEq/L 02/10/2016 Comp Metabolic Kuz320 K 4.1 mEq/L 02/10/2016 Comp Metabolic Lva779 CL 102 mEq/L 02/10/2016 Comp Metabolic Qmj948 CO2 28.0 mEq/L 02/10/2016 Comp Metabolic Mde819 AN ION GAP 11 02/10/2016 Comp Metabolic Juq523 GL UCOSE 104 mg/dL 02/10/2016 Comp Metabolic Ghv338 Cr eat 0.7 mg/dL 02/10/2016 Comp Metabolic Zhx981 eG FR 83 ml/min/1.73m2 02/09 Comp Metabolic Xwr461 BUN 14 mg/dL 02/10/2016 Comp Metabolic Gbc628 B/ C Ratio 18.9 Ratio 02/10/2016 Comp Metabolic Fvs474 CA LCIUM 9.7 mg/dL 02/10/2016 Comp Metabolic Xtt130 AL K PHOS 121 U/L 02/10/2016 Comp Metabolic Jvf879 T(SGOT) 19 U/L 02/10/2016 Comp Metabolic Rzi175 AL T(SGPT) 13 U/L 02/10/2016 Comp Metabolic Rdz036 BI LI T 0.5 mg/dL 02/10/2016 Comp Metabolic Nhy584 AL BUMIN 4.3 g/dL 02/10/2016 Comp Metabolic Aro332 TP RO 6.8 g/dL 02/10/2016 Comp Metabolic Grh206 GL OB 2.5 g/dL 02/10/2016 Comp Metabolic Ltx251 A/ G Ratio 1.7 Ratio 02/10/2016 Comp Metabolic Qel715 Os mo 275 mOsmo 02/10/2016 Lipid Ord30 CHOL 229 mg/dL 02/10/2016 Lipid Ord30 HDL 59.0 mg/dl 02/10/2016 Lipid Ord30 TRIG 252 mg/dL 02/10/2016 Lipid Ord30 LDL 120 mg/dL 02/10/2016 Lipid Ord30 C/HDL 3.9 Ratio 02/10/2016 Free T4 Yrz105 FREE T4 0.87 ng/dL 02/10/2016 Tsh Ord6 [...] 29.2 pg 02/10/2016 Cbc With Differential Ord2 [place]% 18.6 % 02/10/2016 Cbc With Differential Ord2 [...] 1.81 K/ul 02/10/2016 Cbc With Differential Ord2 [place] ABS# 1.1 K/ul 02/10/2016 Cbc With Differential Ord2 Eos ABS# 0.1 K/ul 02/10/2016 Cbc With Differential Ord2 Baso ABS# 0.1 K/ul 02/10/2016 Tsh Ord6 hTSH II 0.85 uIU/mL 04/02/2015 Lipid Ord30 CHOL 207 mg/dL 04/02/2015 Lipid Ord30 HDL 68.0 mg/dl 04/02/2015 Lipid Ord30 TRIG 193 mg/dL 04/02/2015 Lipid Ord30 LDL 100 mg/dL 04/02/2015 Lipid Ord30 C/HDL 3.0 Ratio 04/02/2015 Free T4 Myp418 FREE T4 1.09 ng/dL 04/02/2015 Free T4 Sse244 FREE T4 0.82 ng/dL 10/15/2014 Tsh Ord6 [...] 1: 142/84 Code: 8480-6 BMI: 31.2 Code: 33437-4 Heart Rate 1: 75 bpm Height: 5'4" SpO2: 97% Weight: 182 lbs 01/02/2018 Blood Pressure 1: 136/68 Code: 8480-6 BMI: 32.4 Code: 72569-4 Heart Rate 1: 80 bpm Height: 5'4" SpO2: 99% Waist Measure (cm): 104 cm Weight: 189 lbs 12/26/2017 Blood Pressure 1: 138/72 Code: 8480-6 BMI: 31.4 Code: 74094-4 Heart Rate 1: 72 bpm Height: 5'4" SpO2: 96% Weight: 183 lbs 10/17/2017 Blood Pressure 1: 156/72 Code: 8480-6 BMI: 31.4 Code: 02209-1 Heart Rate 1: 81 bpm Height: 5'4" SpO2: 98% Temperature: 36.5 (C ) / 97.7 (F) Weight: 183 lbs 09/27/2017 Blood Pressure 1: 140/82 Code: 8480-6 BMI: 32.1 Code: 10135-5 Heart Rate 1: 82 bpm Height: 5'4" SpO2: 98% Weight: 187 lbs 07/31/2017 Blood Pressure 1: 138/82 Code: 8480-6 Heart Rate 1: 87 bpm SpO2: 99% 03/24/2017 Blood Pressure 1: 146/86 Code: 8480-6 BMI: 31.8 Code: 56090-5 Heart Rate 1: 79 bpm Height: 5'4" SpO2: 96% Temperature: 36.4 (C ) / 97.5 (F) Weight: 185 lbs 08/30/2016 Blood Pressure 1: 142/88 Code: 8480-6 BMI: 31.6 Code: 16804-8 Heart Rate 1: 80 bpm Height: 5'4" SpO2: 93% Weight: 184 lbs 08/08/2016 Blood Pressure 1: 142/76 Code: 8480-6 BMI: 29.9 Code: 62210-0 Heart Rate 1: 80 bpm Height: 5'4" SpO2: 94% Weight: 174 lbs 06/27/2016 Blood Pressure 1: 156/72 Code: 8480-6 BMI: 30.6 Code: 93971-4 Heart Rate 1: 78 bpm Height: 5'4" SpO2: 95% Weight: 178 lbs 05/23/2016 Blood Pressure 1: 146/84 Code: 8480-6 Heart Rate 1: 66 bpm Height: 5'4" SpO2: 94% 04/18/2016 Blood Pressure 1: 148/84 Code: 8480-6 BMI: 30.2 Code: 89968-9 Heart Rate 1: 81 bpm Height: 5'4" SpO2: 97% Weight: 176 lbs 03/07/2016 Blood Pressure 1: 130/78 Code: 8480-6 BMI: 30.0 Code: 22779-9 Heart Rate 1: 85 bpm Height: 5'4" SpO2: 96% Weight: 175 lbs 02/23/2016 Blood Pressure 1: 140/78 Code: 8480-6 BMI: 29.7 Code: 80694-5 Heart Rate 1: 74 bpm Height: 5'4" SpO2: 95% Weight: 173 lbs 09/15/2015 Blood Pressure 1: 140/88 Code: 8480-6 BMI: 29.4 Code: 87433-9 Heart Rate 1: 81 bpm Height: 5'4" SpO2: 97% Weight: 171 lbs 8 oz 05/26/2015 Blood Pressure 1: 150/80 Code: 8480-6 BMI: 31.6 Code: 77876-8 Heart Rate 1: 70 bpm Height: 5'4" SpO2: 96% Weight: 184 lbs 04/09/2015 Blood Pressure 1: 136/74 Code: 8480-6 BMI: 31.4 Code: 51592-9 Heart Rate 1: 91 bpm Height: 5'4" SpO2: 94% Weight: 183 lbs 03/30/2015 Blood Pressure 1: 130/72 Code: 8480-6 BMI: 30.9 Code: 08044-6 Heart Rate 1: 80 bpm Height: 5'4" SpO2: 97% Waist Measure (cm): 102 cm Weight: 180 lbs 03/10/2015 Blood Pressure 1: 152/80 Code: 8480-6 BMI: 31.1 Code: 93220-1 Heart Rate 1: 66 bpm Height: 5'4" SpO2: 98% Weight: 181 lbs 12/16/2014 Blood Pressure 1: 132/88 Code: 8480-6 Blood Pressure 1: 132/88 Code: 8480-6 Heart Rate 1: 88 bpm SpO2: 98% Weight: 183 lbs 12/09/2014 Blood Pressure 1: 140/82 Code: 8480-6 BMI: 31.2 Code: 89741-1 Heart Rate 1: 105 bpm Height: 5'4" SpO2: 93% Weight: 182 lbs 11/13/2014 Blood Pressure 1: 148/88 Code: 8480-6 BMI: 31.8 Code: 45451-2 Heart Rate 1: 54 bpm Height: 5'4" SpO2: 98% Weight: 185 lbs 07/10/2014 Blood Pressure 1: 144/96 Code: 8480-6 BMI: 31.4 Code: 62608-4 Heart Rate 1: 99 bpm Height: 5'4" [...] frantz sary hypertension 09/27/2017 None hypothyroid 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 P ATIENT, LEVEL III Diagnosis: Hypo-osmolality and hyponatremia[ICD10: E87.1] Shannon Falk MD, [facility] CPT-4: 67514 03/27/[id number]) [id number] EST. P ATIENT, LEVEL IV Diagnosis: Atrophy of thyroid (acquired)[ICD10: E03.4] Diagnosis: Essential (primary) hypertension[ICD10: I10] Diagnosis: 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[ICD10: M05.741] Diagnosis: 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[ICD10: M05.742] Diagnosis: Pain in thoracic spine[ICD10: M54.6] Shannon Falk MD, [facility] CPT-4: 36724 12/26/2017 [id number]) [phone] EST. P ATIENT, LEVEL III Diagnosis: Otalgia, left ear[ICD10: H92.02] Diagnosis: Essential (primary) hypertension[ICD10: I10] [facility] CPT-4: 71916 10/17/2017 ([id number]) [id number] EST. P ATIENT, LEVEL IV Diagnosis: 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[ICD10: M05.741] Diagnosis: 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[ICD10: M05.742] Diagnosis: Atrophy of thyroid (acquired)[ICD10: E03.4] Diagnosis: Essential (primary) hypertension[ICD10: I10] Shannon Falk MD, [facility] CPT-4: 99837 09/27/2017 ([id number]) Miscellaneou s no charge Diagnosis: Essential (primary) hypertension[ICD10: I10] Elizabet Falk MD, [facility] CPT-4: 02653 07/31/2017 ([id number]) [id number] EST. P ATIENT, LEVEL IV Diagnosis: Essential (primary) hypertension[ICD10: I10] Diagnosis: Atrophy of thyroid (acquired)[ICD10: E03.4] Diagnosis: 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[ICD10: M05.741] Diagnosis: 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[ICD10: M05.742] Shannon Falk MD, [facility] CPT-4: 19326 03/24/2017 ([id number]) 67731 EST. P ATIENT, LEVEL IV Diagnosis: Atrophy of thyroid (acquired)[ICD10: E03.4] Diagnosis: Pleurisy[ICD10: R09.1] Diagnosis: Essential (primary) hypertension[ICD10: I10] Shannon Falk MD, [facility] CPT-4: 81349 08/30/2016 ([id number]) 87921 EST. P ATIENT, LEVEL III Diagnosis: Pleurisy[ICD10: R09.1] Elizabet Falk MD, [facility] CPT-4: 09031 08/08/2016 [id number] EST. PATIENT, LEVEL III Diagnosis: Dysuria[ICD10: R30.0] Diagnosis: Other pruritus[ICD10: L29.8] Shila Falk MD, [facility] CPT-4: 79957 06/27/2016 ([id number]) [id number] EST. P ATIENT, LEVEL III Diagnosis: Pain in left foot[ICD10: M79.672] Diagnosis: Pain in left toe(s)[ICD10: M79.675] Elizabet Fakl MD, [facility] CPT-4: 20708 05/23/2016 [id number] EST. PATIENT, LEVEL III Diagnosis: Candidiasis of vulva and vagina[ICD10: B37.3] Diagnosis: Dysuria[ICD10: R30.0] Shila Falk MD, [facility] CPT-4: 32509 04/18/2016 [id number] EST. PATIENT, LEVEL III Diagnosis: Other pruritus[ICD10: L29.8] Diagnosis: Candidiasis of vulva and vagina[ICD10: B37.3] Shila Falk MD, [facility] CPT-4: 34436 03/07/2016 ([id number]) [id number] EST. P ATIENT, LEVEL IV Diagnosis: Essential (primary) hypertension[ICD10: I10] Diagnosis: Pain in left hip[ICD10: M25.552] Diagnosis: Pain in right hip[ICD10: M25.551] Diagnosis: Functional diarrhea[ICD10: K59.1] Diagnosis: Atrophy of thyroid (acquired)[ICD10: E03.4] Shannon Falk MD, [facility] CPT-4: 63735 02/23/2016 ([id number]) [id number] EST. P ATIENT, LEVEL IV Diagnosis: Essential (primary) hypertension[ICD10: I10] Diagnosis: Mixed hyperlipidemia[ICD10: E78.2] Diagnosis: Major depressive disorder, single episode, unspecified[ICD10: F32.9] Shannon Falk MD, [facility] CPT-4: 27286 09/15/2015 [id number] EST. PATIENT, LEVEL III Diagnosis: Rash and other nonspecific skin eruption[ICD10: R21] Shila Falk MD, [facility] CPT-4: 50874 05/26/2015 ([id number]) 83063 EST. P ATIENT, LEVEL IV Diagnosis: Essential (primary) hypertension[ICD10: I10] Diagnosis: Foot drop, left foot[ICD10: M21.372] Diagnosis: Sacroiliitis, not elsewhere classified[ICD10: M46.1] Shannon Falk MD, [facility] CPT-4: 97739 04/09/2015 ([id number]) 78857 EST. 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 CPT-4: 83254 03/10/2015 ([id number]) 26384 EST. P ATIENT, LEVEL III Diagnosis: Trochanteric bursitis, left hip[ICD10: M70.62] Diagnosis: Iliotibial band syndrome, left leg[ICD10: M76.32] Diagnosis: Sciatica, left side[ICD10: M54.32] Elizabet Falk MD, [facility] CPT-4: 54770 12/16/2014 ([id number]) 08181 EST. P ATIENT, LEVEL III Diagnosis: Sciatica, left side[ICD10: M54.32] Diagnosis: Sacroiliitis, not elsewhere classified[ICD10: M46.1] Elizabet Falk MD, [facility] CPT-4: 93116 12/09/2014 ([id number]) 46231 EST. 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] Diagnosis: Carpal tunnel syndrome, unspecified upper limb[ICD10: G56.00] Shannon Falk MD, [facility] CPT-4: 23974 11/13/2014 ([id number]) OFFICE VISI T, NEW - LEVEL 4 Diagnosis: ESSENTIAL HYPERTENSION[ICD9: 401.9] Diagnosis: HYPERLIPIDEMIA[ICD9: 272.4] Diagnosis: DEPRESSIVE DISORDER NEC[ICD9: 311] Diagnosis: Diarrhea[ICD9: 787.91] Shannon Falk MD, [facility] CPT-4: 63543 07/10/2014 Plan of Care Planned Activity Notes C odes Status Date Appointment: Shannon Falk [facility]el[phone] (15 min) Moderate 03/28/2018 Visit Plan: Hyponatremia - continue with current treatment - gatorade/powerade, monitor electrolytes. 03/27/2018 Appointment: Shannon Falk WPtel: [facility] (15 min) Moderate 03/27/2018 Patient Education: Patient Medication Summary Completed 03/27/2018 Patient Education: Patient Medication Summary Completed 02/01/2018 Appointment: Shannon Falk WPtel: [phone] [facility] (15 min) Moderate 01/22/2018 Patient Education: Patient [...] care surrogate. 01/02/2018 Appointment: Elizabet Donaldson [facility]Ptel: [id number] [facility] - Annual Wellness Visit 01/02/2018 Patient Education: [...] of control. 12/26/2017 Appointment: Shannon Falk WPtel: [phone] [facility] [place] (15 min) Moderate 12/26/2017 Patient Education: [...] plan. 10/17/2017 Appointment: [facility]onalds[phone] [place] (15 min) Moderate 10/17/2017 Patient Education: [...] at home. 09/27/2017 Appointment: Shannon Falk WPtel: [phone] [facility] [place] (15 min) Moderate 09/27/2017 Patient Education: Patient Medication Summary Completed 09/27/2017 Care Plan: Referral Order SNOMED-CT : [id number] Pending 09/27/2017 Appointment: Shannon Fakl WPtel: [phone] [facility] (15 min) Moderate 09/21/2017 Appointment: Nurse Visit [...] daily. 03/24/2017 Appointment: Shannon Falk WPtel: [phone] [facility] (15 min) Moderate 03/24/2017 Patient Education: Patient Medication Summary Completed 03/24/2017 Appointment: Shannon Falk WPtel: [phone] [facility] (15 min) Moderate 03/16/2017 Appointment: [facility]: [phone] [...] supportive care. 08/30/2016 Appointment: Shannon Falk WPtel: [facility] (15 min) [...] of plan. 08/08/2016 Appointment: Elizabet Donaldson WPtel: [facility] (30 min) Complex 08/08/2016 Patient Education: Patient Medication Summary Completed 08/08/2016 Referral: Delia Bernstein WPtel: [phone] [place], [place] [id number] Referral Initiated 08/01/2016 Visit Plan: Vaginal yeast [...] refer. 06/27/2016 Appointment: [phone] (30 min) Complex 06/27/2016 Patient Education: Patient Medication Summary Completed 06/27/2016 Care Plan: Referral Order SNOMED-CT : [id number] Pending 06/27/2016 Visit Plan: Left foot, 1st and 2nd toe pain-suspect fracture of left great toe-will obtain xrays and proceed as indicated. Patient verbalized understanding of plan. 05/23/2016 Appointment: El[facility]ab[facility]onaldson [facility]el[phone] [facility] (15 min) Moderate 05/23/2016 Patient Education: Patient [...] probiotics 02/23/2016 Appointment: Shannon Falk WPtel: [phone] [facility] (15 min) Moderate 02/23/2016 Patient Education: Patient [...] Completed 09/15/2015 Appointment: Shannon Falk WPtel: [phone] [facility] (15 min) Moderate 07/29/2015 Visit Plan: Rash [...] - vitamin B12 liquid 2000mcg daily - [facility] sells the liquid b12, folic acid - take daily. metanex 1 capsule twice daily - call office if this seems to help decrease nerve pain increase the night-time dosing of gabapentin to 300mg in AM, Noon, 6pm and 10pm 04/09/2015 Appointment: Shannon Falk WPtel: [facility] (15 min) Moderate 04/09/2015 Patient Education: Patient [...] Maria Ines recommended repeat scope in 2013. 03/10/2015 Appointment: Shannon Falk WPtel: [phone] [facility] (15 min) Moderate 03/10/2015 Patient Education: Patient Medication Summary Completed 03/10/2015 Care Plan: SCREENINGMAMMOGRAPHYDIGITAL LOINC : 54733-0 Ordered 03/10/2015 Care Plan: Referral Order SNOMED-CT : [id number] Ordered 03/10/2015 Care Plan: Referral Order SNOMED-CT : [id number] Ordered 03/10/2015 Visit Plan: Left hip bursitis/Iliot [...] Medication Summary Completed 12/16/2014 Patient Education: .[employer] lliot ibial Band Rehabilitation exercises Completed 12/16/2014 Patient Education: .Face-Me Exercise for [place] ca Completed 12/16/2014 Care Plan: Referral Order SNOMED-CT : [id number] Ordered 12/16/2014 Visit Plan: Sacroiliitis - back [...] Patient Medication Summary Completed 12/09/2014 Patient Education: .[employer] Exercise for [place] ca Completed 12/09/2014 Visit [...] tunnel brace. 11/13/2014 Appointment: Shannon Falk WPtel: [phone] [facility] Follow up 11/13/2014 Patient Education: Patient Medication [...] IT WORSENS. 07/10/2014 Appointment: Shannon Falk WPtel: [phone] [facility] [place] ([place] New Patient 07/10/2014 Patient Education: Patient Medication Summary Completed 07/10/2014 Patient Education: Hypertension Completed 07/10/2014 Referral: Darci Spann Referral Relationship Referral: External, Ordering Provider Referral Appointment Requested Referral: External, Ordering Provider 09/28 Referral info faxed to [facility] 10/03 They tried calling her with an appt and she did not answer. Called patient and she will call them back. Appoint ment Requested Referral: External, Ordering Provider Referral Appointment Requested Referral: [phone] [facility] [place] Referral Initiated Referral: External, Ordering Provider Referral Completed Instructions Comment luanne gonsalves e - look up on [place] . Hypertension - well controlled - elgin [...] allergy spray. ALIGN PROBIOTIC - TAKE DAILY ([employer] OR [employer] -TWO OTHER PROBIOTICS THAT ARE HIGH [...] stomach pain. ALIGN PROBIOTIC - TAKE DAILY ([employer] OR [employer] -TWO OTHER PROBIOTICS THAT ARE HIGH [...] with any concerns. dr. gely duncan - [facility] - hand [...] vitamin B12 liquid 2 000mcg daily - [facility] sells the liquid b12 folic acid [...] - vitamin B12 liquid 2000mcg daily - [facility] sells the liquid b12, folic acid [...]
--- OUTSIDE RECORDS SUMMARY | 2019-06-07 16:38 | XMS REPORT | CCD ---
Author Author Dalila Falk Organization Shannon Falk MD, [facility] Address [address] [place] [address] Phone Care Team Providers Care Publishing Director Name Role Phone PP Unavailable CCM Unavailable Summary Purpose Interface Exchange Insurance Providers Payer name Policy type / Coverage type Covered alliance party ID Effective Begin Date Effective End Date WPS Medicare Part B Medicare Part B [id number] Unknown [place] [employer] Life Insurance M edicare Part B [id number] Unkn own Family history Brother Diagnosis Age [...] Unknown 2 07/10/[address]: 442190321 Has never smoked or chewed tobacco 07/10/2014 Alcohol history Unknown occasionally drinks alcohol 07/10/2014 Allergies, Adverse Reactions, Alerts Substance Reaction Codes Entered Date Inactivated Date Status Remicade hives RxNorm: 594199 03/24/2017 No Inactive Date Active * NO [...] Date Stop Date Sta tus Fill Instructions citalopram 20 mg tablet RxNorm: 330811 Tablet(s) TAKE ONE (1) TABLET BY MOUTH D AILY 05/03/2018 04/27/2019 Ac tive hydrocodone 7.5 mg-a cetaminophen 325 mg tablet RxNorm: 558287 1-2 Tablet(s) PO Q4H as needed 05/01/2018 05/15/2018 Active cefdinir 300 mg capsule RxNorm: 508050 1 Capsule(s) PO BID 04/17/2018 04/23/2018 Inactive cefdinir 300 mg capsule RxNorm: 723977 1 Capsule(s) PO BID 04/17/2018 04/16/2018 Inactive clobetasol 0.05 % to pical cream RxNorm: 660034 1 dime size amount Ap plication TOP daily as needed vaginal irritation 03/27/2018 07/24/2018 Active metoprolol succinate ER 25 mg tablet,extended release 24 hr RxNorm: 087088 1 Tablet(s) PO daily 03/27/2018 10/22/2018 Active Synthroid 75 mcg tablet RxNorm: 730830 Tablet(s) TAKE 1 TABLET BY MOUTH DAILY 02/07/2018 09/04/2018 Ac tive Generic For:*SYNTHROID 0.075MG TAB 11/14 9:16:33 AM N O T I C E Last quantity doesn't match original quantity hydrocodone 7.5 mg-a cetaminophen 325 mg tablet RxNorm: 727041 1-2 Tablet(s) PO Q4H as needed 10/12/2017 10/26/2017 Inactive Synthroid 75 mcg tablet RxNorm: 987228 Tablet(s) TAKE 1 TABLET BY MOUTH DAILY 08/09/2017 02/06/2018 In active Generic For:*SYNTHROID 0.075MG TAB 10/22 9:16:33 AM N O T I C E Last quantity doesn't match original quantity hydrocodone 7.5 mg-a cetaminophen 325 mg tablet RxNorm: 984340 1-2 Tablet(s) PO Q4H as needed 05/22/2017 06/20/2017 Inactive amlodipine 10 mg tablet RxNorm: 709143 1 Tablet(s) PO daily 1 Tablet(s) PO ashlie y 05/09/2017 09/26/2017 In active citalopram 20 mg tablet RxNorm: 728288 Tablet(s) TAKE ONE (1) TABLET BY MOUTH D AILY 05/09/2017 05/02/2018 Inactive losartan 100 mg tablet RxNorm: 680510 1 Tablet(s) PO daily TAKE 1 TABLET BY [facility] DAILY 05/09/2017 01/01/2018 Inactive Celebrex 200 mg capsule RxNorm: 296523 1 Capsule(s) PO BID 03/24/2017 03/18/2018 Inactive gabapentin 300 mg ca psule RxNorm: 074719 1 Capsule(s) PO daily 03/24/2017 No Stop Date Active Celebrex 200 mg capsule RxNorm: 715264 1 Capsule(s) PO BID 1 Capsule(s) PO ashlie y 03/24/2017 03/23/2017 In active amlodipine 10 mg tablet RxNorm: 873185 1 Tablet(s) PO daily 1 Tablet(s) PO ashlie y 03/24/2017 05/08/2017 In active Lipitor 40 mg tablet RxNorm: 553580 Tablet(s) TAKE ONE TABLET BY MOUTH AT BE DTIWI 02/14/2017 09/26/2017 Inactive hydrocodone 7.5 mg-a cetaminophen 325 mg tablet RxNorm: 758544 1-2 Tablet(s) PO Q4H as needed 01/16/2017 02/14/2017 Inactive scopolamine 1.5 mg t ransdermal patch (1 mg over 3 days) RxNorm: 227033 1 Patch TD Q72H 11/25/2016 12/04/2016 Inactive scopolamine 1.5 mg t ransdermal patch (1 mg over 3 days) RxNorm: 847474 1 Patch TD Q72H 11/25/2016 11/24/2016 Inactive losartan 100 mg tablet RxNorm: 282764 1 Tablet(s) PO daily TAKE 1 TABLET BY [facility] DAILY 11/14/2016 05/08/2017 Inactive Generic For:COZAAR 100MG TA B 05/17/2016 8:31:51 AM Synthroid 75 mcg tablet RxNorm: 520911 TAKE 1 TABLET BY MOUTH DAILY 11/14/2016 06/11/2017 Inactive Generic For:*SYNTHROID 0.075MG TAB 10/22 9:16:33 AM N O T I C E Last quantity doesn't match original quantity citalopram 20 mg tablet RxNorm: 118895 TAKE ONE (1) TABLET BY MOUTH DAILY 11/14/2016 05/08/2017 In active Generic For:CELEXA 20MG TAB 11/14/2016 8:30:49 AM N O T I C E Last quantity doesn't match original quantity prednisone 10 mg tab lets in a dose pack RxNorm: 631474 1 Tablet(s) PO UD 09/30/2016 10/05/2016 In active 6-5-4-3-2-1 hydrocodone 7.5 mg-a cetaminophen 325 mg tablet RxNorm: 335025 1-2 Tablet(s) PO Q4H as needed 09/20/2016 01/15/2017 Inactive amlodipine 5 mg tablet RxNorm: 633777 TAKE ONE TABLET BY MOUTH EVERY DAY 08/15/2016 03/23/2017 In active Generic For:NORVASC 5 MG TABLET 017 3:56:26 PM N O T I C E Last quantity doesn't match original quantity Kenalog 40 mg/mL [place] pension for injection RxNorm: 8594370 1 Milliliter(s) Inj 08/08/2016 08/08/2016 In active prednisone 10 mg tab lets in a dose pack RxNorm: 064340 1 Tablet(s) PO UD 08/08/2016 08/07/2016 In active prednisone 10 mg tab lets in a dose pack RxNorm: 250139 1 Tablet(s) PO UD 08/08/2016 08/13/2016 In active 6-5-4-3-2-1 Diflucan 150 mg tablet RxNorm: 821129 1 Tablet(s) PO daily 06/27/2016 07/10/2016 Inactive Synthroid 75 mcg tablet RxNorm: 556343 TAKE 1 TABLET BY MOUTH DAILY 06/16/2016 11/13/2016 Inactive Generic For:*SYNTHROID 0.075MG TAB pt wo uld like a 90 day supply N O T I C E Last quantity doesn't match original quantity hydrocodone 7.5 mg-a cetaminophen 325 mg tablet RxNorm: 383164 1-2 Tablet(s) PO Q4H as needed 06/06/2016 09/19/2016 Inactive citalopram 20 mg tablet RxNorm: 070151 TAKE ONE (1) TABLET BY MOUTH DAILY 05/18/2016 11/13/2016 In active Generic For:CELEXA 20MG TAB 05/17/2016 8:32:02 AM Celebrex 200 mg capsule RxNorm: 602907 1 Capsule(s) PO daily 05/17/2016 03/23/2017 Inactive losartan 100 mg tablet RxNorm: 191235 TAKE 1 TABLET BY MOUTH DAILY 05/17/2016 11/12/2016 Inactive Generic For:COZAAR 100MG TAB 05/17/2016 8:31:51 AM amlodipine 5 mg tablet RxNorm: 722983 1 Tablet(s) PO daily 05/10/2016 08/14/2016 Inactive Cipro 500 mg tablet RxNorm: 702973 1 Tablet(s) PO BID 05/04/2016 05/03/2016 Inactive Cipro 500 mg tablet RxNorm: 882274 1 Tablet(s) PO BID 05/04/2016 05/13/2016 Inactive Diflucan 150 mg tablet RxNorm: 612124 1 Tablet(s) PO daily 04/18/2016 05/01/2016 Inactive Monistat Soothing Ca re 1.2 % topical gel RxNorm: 6353663 1 Application TOP BI D 03/07/2016 01/01/2018 In active Diflucan 150 mg tablet RxNorm: 010650 1 Tablet(s) PO daily 03/07/2016 03/13/2016 Inactive Lipitor 40 mg tablet RxNorm: 217172 Tablet(s) TAKE ONE TABLET BY MOUTH AT BE DTIWI 02/23/2016 02/13/2017 Inactive citalopram 20 mg tablet RxNorm: 940312 TAKE ONE (1) TABLET BY MOUTH DAILY 02/18/2016 05/17/2016 In active Generic For:CELEXA 20MG TAB refill reque st losartan 100 mg tablet RxNorm: 484009 Tablet(s) 1 Tablet, 1 time per Day 02/09/2016 05/16/2016 In active INSURANCE WILL NOT COVER ADELA ANDREWS UNTIL OTHER FORMULARIES HAVE BEEN TRIED AND FAILED hydrocodone 7.5 mg-a cetaminophen 325 mg tablet RxNorm: 826166 1-2 Tablet(s) PO Q4H as needed 02/03/2016 06/05/2016 Inactive Synthroid 75 mcg tablet RxNorm: 655184 Tablet(s) TAKE 1 TABLET BY MOUTH DAILY 01/19/2016 06/15/2016 In active Generic For:*SYNTHROID 0.075MG TAB 04/2014 10:00:02 AM N O T I C E PRESCRIPTION PREVIOUSLY AUTHORIZED BY DOCTOR:SWATI BEY prednisone 10 mg tab lets in a dose pack RxNorm: 874811 1 Tablet(s) PO UD 01/07/2016 02/22/2016 In active 6-5-4-3-2-1 amlodipine 10 mg tablet RxNorm: 557927 1 Tablet(s) PO daily 12/07/2015 11/30/2016 Inactive citalopram 20 mg tablet RxNorm: 288010 TAKE ONE (1) TABLET BY MOUTH DAILY 11/17/2015 02/14/2016 In active Generic For:CELEXA 20MG TAB refill reque st hydrocodone 7.5 mg-a cetaminophen 325 mg tablet RxNorm: 229028 1-2 Tablet(s) PO Q4H as needed 10/08/2015 02/02/2016 Inactive losartan 100 mg tablet RxNorm: 246745 Tablet(s) 1 Tablet, 1 time per Day 2015 02/07/2016 In active INSURANCE WILL NOT COVER A[place]LA ANDREWS UNTIL OTHER FORMULARIES HAVE BEEN TRIED AND FAILED citalopram 20 mg tablet RxNorm: 646234 TAKE ONE (1) TABLET BY MOUTH DAILY 08/10/2015 11/07/2015 In active Generic For:CELEXA 20MG TAB 08/10/2015 8:59:58 AM Synthroid 75 mcg tablet RxNorm: 499688 Tablet(s) TAKE 1 TABLET BY MOUTH DAILY 05/26/2015 12/21/2015 In active Generic For:*SYNTHROID 0.075MG TAB 04/2014 10:00:02 AM N O T I C E PRESCRIPTION PREVIOUSLY AUTHORIZED BY DOCTOR:SWATI BEY prednisone 20 mg tablet RxNorm: 123670 2 Tablet(s) PO daily 05/26/2015 05/30/2015 Inactive Lipitor 40 mg tablet RxNorm: 379167 TAKE ONE TABLET BY MOUTH AT BEDTIME 05/14/2015 02/07/2016 In active Generic For:LIPITOR 40MG TAB 05/13/2015 8:26:33 AM N O T I C E PRESCRIPTION PREVIOUSLY AUTHORIZED BY DOCTOR:SWATI BEY hydrocodone 7.5 mg-a cetaminophen 325 mg tablet RxNorm: 238266 1-2 Tablet(s) PO Q4H as needed 05/11/2015 10/07/2015 Inactive Celebrex 200 mg capsule RxNorm: 376779 1 Capsule(s) PO daily 05/07/2015 04/30/2016 Inactive citalopram 20 mg tablet RxNorm: 083844 TAKE ONE (1) TABLET BY MOUTH DAILY 04/27/2015 07/25/2015 In active Generic For:CELEXA 20MG TAB 04/26/2015 7:30:08 PM gabapentin 300 mg ca psule RxNorm: 083378 1 Capsule(s) PO QID 04/09/2015 04/02/2016 Inactive citalopram 20 mg tablet RxNorm: 713877 TAKE ONE (1) TABLET BY MOUTH DAILY 01/26/2015 04/25/2015 In active Generic For:CELEXA 20MG TAB 01/26/2015 8:40:11 AM losartan 100 mg tablet RxNorm: 653676 1 Tablet, 1 time per Day 01/26/2015 03/29/2015 Inactive INSURANCE WILL NOT COVER ADELA ANDREWS UNTIL OTHER FORMULARIES HAVE BEEN TRIED AND FAILED hydrocodone 7.5 mg-a cetaminophen 325 mg tablet RxNorm: 635770 1-2 Tablet(s) PO Q4H as needed 01/23/2015 05/10/2015 Inactive Neurontin 100 mg cap almaz RxNorm: 685512 1 Capsule(s) PO TID 01/14/2015 03/09/2015 Inactive Neurontin 100 mg cap almaz RxNorm: 188351 1 Capsule(s) PO TID 01/14/2015 01/13/2015 Inactive Keflex 500 mg capsule RxNorm: 618729 1 Capsule(s) PO TID 01/06/2015 01/05/2015 Inactive Keflex 500 mg capsule RxNorm: 433128 1 Capsule(s) PO TID 01/06/2015 01/12/2015 Inactive hydrocodone 7.5 mg-a cetaminophen 325 mg tablet RxNorm: 925923 1-2 Tablet(s) PO Q4H as needed 12/29/2014 01/22/2015 Inactive Duexis 800 mg-26.6 m g tablet RxNorm: 6590992 1 Tablet(s) PO TID a s needed 12/19/2014 03/29/2015 In active Duexis 800 mg-26.6 m g tablet RxNorm: 2924651 1 Tablet(s) PO TID a s needed 12/19/2014 12/18/2014 In active Kenalog 40 mg/mL [place] pension for injection RxNorm: 1714856 1 Milliliter(s) Inj 12/09/2014 12/09/2014 In active prednisone 10 mg tab lets in a dose pack RxNorm: 943003 1 Tablet(s) PO UD 12/09/2014 12/14/2014 In active 6-5-4-3-2-1 amlodipine 10 mg tablet RxNorm: 477129 1 Tablet(s) PO daily 11/13/2014 11/07/2015 Inactive citalopram 20 mg tablet RxNorm: 732978 TAKE ONE (1) TABLET BY MOUTH DAILY 10/23/2014 01/20/2015 In active Generic For:CELEXA 20MG TAB 10/23/2014 4:32:02 PM N O T I C E PRESCRIPTION PREVIOUSLY AUTHORIZED BY DOCTOR:SWATI BEY hydrocodone 7.5 mg-a cetaminophen 325 mg tablet RxNorm: 380717 1-2 Tablet(s) PO Q4H as needed 10/22/2014 12/28/2014 Inactive Synthroid 75 mcg tablet RxNorm: 417420 TAKE 1 TABLET BY MOUTH DAILY 09/22/2014 04/19/2015 Inactive Generic For:*SYNTHROID 0.075MG TAB 04/2014 10:00:02 AM N O T I C E PRESCRIPTION PREVIOUSLY AUTHORIZED BY DOCTOR:SWATI BEY amlodipine 5 mg tablet RxNorm: 554719 1 Tablet(s) PO daily 08/25/2014 11/12/2014 Inactive Synthroid 75 mcg tablet RxNorm: 549514 1 Tablet(s) PO daily ecept a 1/2 tab on Monday07/11/2014 09/21/2014 Inactive Flonase Allergy Reli ef 50 mcg/actuation nasal spray,suspension RxNorm: 1 [place] NASAL BID 07/10/2014 12/06/2014 Inactive Benicar 20 mg tablet RxNorm: 345683 1 Tablet(s) PO daily No Start Date Active methotrexate sodium 2.5 mg tablet RxNorm: 059439 3 Tablet(s) PO weekly No Start Date 04/08/2015 Inactive Aldactone 25 mg tablet RxNorm: 550515 1 Tablet(s) PO daily No Start Date 03/26/2018 Inactive gabapentin 300 mg ca psule RxNorm: 584772 1 Capsule(s) PO TID No Start Date 04/08/2015 Inactive Plaquenil 200 mg tablet RxNorm: 736838 1 Tablet(s) PO BID No Start Date 05/22/2016 Inactive losartan 100 mg tablet RxNorm: 067105 1 Tablet(s) PO daily No Start Date 01/25/2015 Inactive Remicade intravenous RxNorm: 937011 intravenous No Start Date 03/23/2017 Inactive amlodipine 5 mg tablet RxNorm: 034430 1 Tablet(s) PO daily No Start Date 08/24/2014 Inactive Celebrex 200 mg capsule RxNorm: 470756 1 Capsule(s) PO daily No Start Date 10/16/2017 Inactive citalopram 20 mg tablet RxNorm: 537211 1 Tablet(s) PO daily No Start Date 10/22/2014 Inactive Synthroid 88 mcg tablet RxNorm: 542209 1 Tablet(s) PO daily No Start Date 07/09/2014 Inactive Arava 20 mg tablet RxNorm: 762201 1 Tablet(s) PO daily No Start Date 01/01/2018 Inactive Lipitor 40 mg tablet RxNorm: 450625 1 Tablet(s) PO daily No Start Date 05/13/2015 Inactive chlorthalidone 25 mg tablet RxNorm: 595111 1 Tablet(s) PO daily No Start Date 03/26/2018 Inactive Synthroid 75 mcg tablet RxNorm: 976670 1 Tablet(s) PO daily No Start Date 07/10/2014 Inactive hydrocodone 7.5 mg-a cetaminophen 325 mg tablet RxNorm: 444306 Tablet(s) PO as neede d No Start Date 10/21/2014 Inactive Medication Administered Medication Codes Instruc tions Start Date Status Kenalog 40 mg/mL suspension for injection RxNorm: 0526070 1Milliliter 08/08/2016 N o longer Active Kenalog 40 mg/mL suspension for injection RxNorm: 6224744 1Milliliter 12/09/2014 N o longer Active Immunizations [...] 31.1 pg 12/26/2017 Cbc With Differential Ord2 Villalba% 9.2 % 12/26/2017 Cbc With Differential Ord2 [...] 1.53 K/ul 12/26/2017 Cbc With Differential Ord2 [place] ABS# 0.7 K/ul 12/26/2017 Cbc With Differential Ord2 Eos ABS# 0.1 K/ul 12/26/2017 Cbc With Differential Ord2 Baso ABS# 0.0 K/ul 12/26/2017 Free T4 Mtf040 FREE T4 0.93 ng/dL 12/26/2017 Comp Metabolic Fcc779 NA 135 mEq/L 12/26/2017 Comp Metabolic Oev079 K 4.4 mEq/L 12/26/2017 Comp Metabolic Loy669 CL 98 mEq/L 12/26/2017 Comp Metabolic Ycu059 CO2 28.0 mEq/L 12/26/2017 Comp Metabolic Nyk359 AN ION GAP 13 12/26/2017 Comp Metabolic Xvf681 GL UCOSE 92 mg/dL 12/26/2017 Comp Metabolic Saj323 Cr eat 1.1 mg/dL 12/26/2017 Comp Metabolic Yba260 eG FR 52 ml/min/1.73m2 12/26 Comp Metabolic Rzw273 BUN 25 mg/dL 12/26/2017 Comp Metabolic Gbo695 B/ C Ratio 22.7 Ratio 12/26/2017 Comp Metabolic Kjb660 CA LCIUM 9.8 mg/dL 12/26/2017 Comp Metabolic Vbp776 AL K PHOS 91 U/L 12/26/2017 Comp Metabolic Ply336 T(SGOT) 16 U/L 12/26/2017 Comp Metabolic Yha578 AL T(SGPT) 12 U/L 12/26/2017 Comp Metabolic Fmd208 BI LI T 0.5 mg/dL 12/26/2017 Comp Metabolic Yvy824 AL BUMIN 4.3 g/dL 12/26/2017 Comp Metabolic Qpw876 TP RO 6.8 g/dL 12/26/2017 Comp Metabolic Cda351 GL OB 2.5 g/dL 12/26/2017 Comp Metabolic Lvg346 A/ G Ratio 1.7 Ratio 12/26/2017 Comp Metabolic Ozt723 Os mo 274 mOsmo 12/26/2017 Urine Culture Ucult Prel iminary NO Growth Day 1 06/29 Urine Culture Ucult Comp lete NO Growth Day 2 06/29 Culture Urine [id number] URI NE CULTURE SEE NOTES 04/22/2016 Culture Urine [id number] Con tinued Results 04/22/2016 Urine Culture Ucult Comp lete >100,000 col/ml aerobic grow th sent to ref lab 04/20/2016 Comp Metabolic Nnv921 NA 137 mEq/L 02/10/2016 Comp Metabolic Zql041 K 4.1 mEq/L 02/10/2016 Comp Metabolic Lzx702 CL 102 mEq/L 02/10/2016 Comp Metabolic Xgw504 CO2 28.0 mEq/L 02/10/2016 Comp Metabolic Ann618 AN ION GAP 11 02/10/2016 Comp Metabolic Svg360 GL UCOSE 104 mg/dL 02/10/2016 Comp Metabolic Kqv643 Cr eat 0.7 mg/dL 02/10/2016 Comp Metabolic Nct166 eG FR 83 ml/min/1.73m2 02/09 Comp Metabolic Nbv676 BUN 14 mg/dL 02/10/2016 Comp Metabolic Qaw857 B/ C Ratio 18.9 Ratio 02/10/2016 Comp Metabolic Ngp599 CA LCIUM 9.7 mg/dL 02/10/2016 Comp Metabolic Fse963 AL K PHOS 121 U/L 02/10/2016 Comp Metabolic Xox318 T(SGOT) 19 U/L 02/10/2016 Comp Metabolic Tsu938 AL T(SGPT) 13 U/L 02/10/2016 Comp Metabolic Vdi830 BI LI T 0.5 mg/dL 02/10/2016 Comp Metabolic Szi137 AL BUMIN 4.3 g/dL 02/10/2016 Comp Metabolic Ywt532 TP RO 6.8 g/dL 02/10/2016 Comp Metabolic Bny272 GL OB 2.5 g/dL 02/10/2016 Comp Metabolic Yqa651 A/ G Ratio 1.7 Ratio 02/10/2016 Comp Metabolic Qob829 Os mo 275 mOsmo 02/10/2016 Lipid Ord30 CHOL 229 mg/dL 02/10/2016 Lipid Ord30 HDL 59.0 mg/dl 02/10/2016 Lipid Ord30 TRIG 252 mg/dL 02/10/2016 Lipid Ord30 LDL 120 mg/dL 02/10/2016 Lipid Ord30 C/HDL 3.9 Ratio 02/10/2016 Free T4 Cly636 FREE T4 0.87 ng/dL 02/10/2016 Tsh Ord6 [...] 29.2 pg 02/10/2016 Cbc With Differential Ord2 [place]% 18.6 % 02/10/2016 Cbc With Differential Ord2 [...] 1.81 K/ul 02/10/2016 Cbc With Differential Ord2 [place] ABS# 1.1 K/ul 02/10/2016 Cbc With Differential Ord2 Eos ABS# 0.1 K/ul 02/10/2016 Cbc With Differential Ord2 Baso ABS# 0.1 K/ul 02/10/2016 Tsh Ord6 hTSH II 0.85 uIU/mL 04/02/2015 Lipid Ord30 CHOL 207 mg/dL 04/02/2015 Lipid Ord30 HDL 68.0 mg/dl 04/02/2015 Lipid Ord30 TRIG 193 mg/dL 04/02/2015 Lipid Ord30 LDL 100 mg/dL 04/02/2015 Lipid Ord30 C/HDL 3.0 Ratio 04/02/2015 Free T4 Vue631 FREE T4 1.09 ng/dL 04/02/2015 Free T4 Ywr489 FREE T4 0.82 ng/dL 10/15/2014 Tsh Ord6 [...] 1: 142/84 Code: 8480-6 BMI: 31.2 Code: 91202-0 Heart Rate 1: 75 bpm Height: 5'4" SpO2: 97% Weight: 182 lbs 01/02/2018 Blood Pressure 1: 136/68 Code: 8480-6 BMI: 32.4 Code: 81116-5 Heart Rate 1: 80 bpm Height: 5'4" SpO2: 99% Waist Measure (cm): 104 cm Weight: 189 lbs 12/26/2017 Blood Pressure 1: 138/72 Code: 8480-6 BMI: 31.4 Code: 86669-6 Heart Rate 1: 72 bpm Height: 5'4" SpO2: 96% Weight: 183 lbs 10/17/2017 Blood Pressure 1: 156/72 Code: 8480-6 BMI: 31.4 Code: 27461-7 Heart Rate 1: 81 bpm Height: 5'4" SpO2: 98% Temperature: 36.5 (C ) / 97.7 (F) Weight: 183 lbs 09/27/2017 Blood Pressure 1: 140/82 Code: 8480-6 BMI: 32.1 Code: 04164-5 Heart Rate 1: 82 bpm Height: 5'4" SpO2: 98% Weight: 187 lbs 07/31/2017 Blood Pressure 1: 138/82 Code: 8480-6 Heart Rate 1: 87 bpm SpO2: 99% 03/24/2017 Blood Pressure 1: 146/86 Code: 8480-6 BMI: 31.8 Code: 84109-1 Heart Rate 1: 79 bpm Height: 5'4" SpO2: 96% Temperature: 36.4 (C ) / 97.5 (F) Weight: 185 lbs 08/30/2016 Blood Pressure 1: 142/88 Code: 8480-6 BMI: 31.6 Code: 06415-3 Heart Rate 1: 80 bpm Height: 5'4" SpO2: 93% Weight: 184 lbs 08/08/2016 Blood Pressure 1: 142/76 Code: 8480-6 BMI: 29.9 Code: 82494-8 Heart Rate 1: 80 bpm Height: 5'4" SpO2: 94% Weight: 174 lbs 06/27/2016 Blood Pressure 1: 15672 Code: 8480-6 BMI: 30.6 Code: 40433-3 Heart Rate 1: 78 bpm Height: 5'4" SpO2: 95% Weight: 178 lbs 05/23/2016 Blood Pressure 1: 146/84 Code: 8480-6 Heart Rate 1: 66 bpm Height: 5'4" SpO2: 94% 04/18/2016 Blood Pressure 1: 148/84 Code: 8480-6 BMI: 30.2 Code: 13377-4 Heart Rate 1: 81 bpm Height: 5'4" SpO2: 97% Weight: 176 lbs 03/07/2016 Blood Pressure 1: 130/78 Code: 8480-6 BMI: 30.0 Code: 97534-2 Heart Rate 1: 85 bpm Height: 5'4" SpO2: 96% Weight: 175 lbs 02/23/2016 Blood Pressure 1: 140/78 Code: 8480-6 BMI: 29.7 Code: 61375-1 Heart Rate 1: 74 bpm Height: 5'4" SpO2: 95% Weight: 173 lbs 09/15/2015 Blood Pressure 1: 140/88 Code: 8480-6 BMI: 29.4 Code: 36686-8 Heart Rate 1: 81 bpm Height: 5'4" SpO2: 97% Weight: 171 lbs 8 oz 05/26/2015 Blood Pressure 1: 150/80 Code: 8480-6 BMI: 31.6 Code: 11585-4 Heart Rate 1: 70 bpm Height: 5'4" SpO2: 96% Weight: 184 lbs 04/09/2015 Blood Pressure 1: 136/74 Code: 8480-6 BMI: 31.4 Code: 76051-0 Heart Rate 1: 91 bpm Height: 5'4" SpO2: 94% Weight: 183 lbs 03/30/2015 Blood Pressure 1: 130/72 Code: 8480-6 BMI: 30.9 Code: 00062-0 Heart Rate 1: 80 bpm Height: 5'4" SpO2: 97% Waist Measure (cm): 102 cm Weight: 180 lbs 03/10/2015 Blood Pressure 1: 152/80 Code: 8480-6 BMI: 31.1 Code: 26645-9 Heart Rate 1: 66 bpm Height: 5'4" SpO2: 98% Weight: 181 lbs 12/16/2014 Blood Pressure 1: 132/88 Code: 8480-6 Blood Pressure 1: 132/88 Code: 8480-6 Heart Rate 1: 88 bpm SpO2: 98% Weight: 183 lbs 12/09/2014 Blood Pressure 1: 140/82 Code: 8480-6 BMI: 31.2 Code: 21270-2 Heart Rate 1: 105 bpm Height: 5'4" SpO2: 93% Weight: 182 lbs 11/13/2014 Blood Pressure 1: 148/88 Code: 8480-6 BMI: 31.8 Code: 38012-5 Heart Rate 1: 54 bpm Height: 5'4" SpO2: 98% Weight: 185 lbs 07/10/2014 Blood Pressure 1: 144/96 Code: 8480-6 BMI: 31.4 Code: 40465-0 Heart Rate 1: 99 bpm Height: 5'4" [...] frantz sary hypertension 09/27/2017 None hypothyroid 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 P ATIENT, LEVEL III Diagnosis: Hypo-osmolality and hyponatremia[ICD10: E87.1] Shannon Falk MD, [facility] CPT-4: 31771 03/27/2018 ([id number]) 47117 EST. P ATIENT, LEVEL IV Diagnosis: Atrophy of thyroid (acquired)[ICD10: E03.4] Diagnosis: Essential (primary) hypertension[ICD10: I10] Diagnosis: 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[ICD10: M05.741] Diagnosis: 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[ICD10: M05.742] Diagnosis: Pain in thoracic spine[ICD10: M54.6] Shannon Falk MD, [facility] CPT-4: 23311 12/26/2017 ([id number]) 55177 EST. P ATIENT, LEVEL III Diagnosis: Otalgia, left ear[ICD10: H92.02] Diagnosis: Essential (primary) hypertension[ICD10: I10] Elizabet Falk MD, [facility] CPT-4: 49612 10/17/2017 ([id number]) 65981 EST. P ATIENT, LEVEL IV Diagnosis: 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[ICD10: M05.741] Diagnosis: 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[ICD10: M05.742] Diagnosis: Atrophy of thyroid (acquired)[ICD10: E03.4] Diagnosis: Essential (primary) hypertension[ICD10: I10] Shannon Falk MD, [facility] CPT-4: 52851 09/27/2017 ([id number]) Miscellaneou s no charge Diagnosis: Essential (primary) hypertension[ICD10: I10] Elizabet Falk MD, [facility] CPT-4: 10798 07/31/2017 ([id number]) 98889 EST. P ATIENT, LEVEL IV Diagnosis: Essential (primary) hypertension[ICD10: I10] Diagnosis: Atrophy of thyroid (acquired)[ICD10: E03.4] Diagnosis: 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[ICD10: M05.741] Diagnosis: 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[ICD10: M05.742] Shannon Falk MD, [facility] CPT-4: 47853 03/24/2017 ([id number]) 78023 EST. P ATIENT, LEVEL IV Diagnosis: Atrophy of thyroid (acquired)[ICD10: E03.4] Diagnosis: Pleurisy[ICD10: R09.1] Diagnosis: Essential (primary) hypertension[ICD10: I10] Shannon Falk MD, [facility] CPT-4: 54900 08/30/2016 ([id number]) 03269 EST. P ATIENT, LEVEL III Diagnosis: Pleurisy[ICD10: R09.1] Elizabet Falk MD, [facility] CPT-4: 80554 08/08/2016 01443 EST. PATIENT, LEVEL III Diagnosis: Dysuria[ICD10: R30.0] Diagnosis: Other pruritus[ICD10: L29.8] Shila Falk MD, [facility] CPT-4: 88627 06/27/2016 ([id number]) 60746 EST. P ATIENT, LEVEL III Diagnosis: Pain in left foot[ICD10: M79.672] Diagnosis: Pain in left toe(s)[ICD10: M79.675] Elizabet Falk MD, [facility] CPT-4: 40110 05/23/2016 00553 EST. PATIENT, LEVEL III Diagnosis: Candidiasis of vulva and vagina[ICD10: B37.3] Diagnosis: Dysuria[ICD10: R30.0] Shila Falk MD, [facility] CPT-4: 12374 04/18/2016 [id number] EST. PATIENT, LEVEL III Diagnosis: Other pruritus[ICD10: L29.8] Diagnosis: Candidiasis of vulva and vagina[ICD10: B37.3] Shila Falk MD, [facility] CPT-4: 87774 03/07/2016 ([id number]) 97607 EST. P ATIENT, LEVEL IV Diagnosis: Essential (primary) hypertension[ICD10: I10] Diagnosis: Pain in left hip[ICD10: M25.552] Diagnosis: Pain in right hip[ICD10: M25.551] Diagnosis: Functional diarrhea[ICD10: K59.1] Diagnosis: Atrophy of thyroid (acquired)[ICD10: E03.4] Shannon Falk MD, C CPT-4: 48101 02/23/2016 ([id number]) 78852 EST. P ATIENT, LEVEL IV Diagnosis: Essential (primary) hypertension[ICD10: I10] Diagnosis: Mixed hyperlipidemia[ICD10: E78.2] Diagnosis: Major depressive disorder, single episode, unspecified[ICD10: F32.9] Shannon Falk MD, [facility] CPT-4: 34347 09/15/2015 [id number] EST. PATIENT, LEVEL III Diagnosis: Rash and other nonspecific skin eruption[ICD10: R21] Shila Falk MD, [facility] CPT-4: 64812 05/26/2015 ([id number]) 09055 EST. P ATIENT, LEVEL IV Diagnosis: Essential (primary) hypertension[ICD10: I10] Diagnosis: Foot drop, left foot[ICD10: M21.372] Diagnosis: Sacroiliitis, not elsewhere classified[ICD10: M46.1] Shannon Falk MD, C CPT-4: 11284 04/09/2015 ([id number]) [id number] EST. 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 CPT-4: 42509 03/10/2015 ([id number]) [id number] EST. P ATIENT, LEVEL III Diagnosis: Trochanteric bursitis, left hip[ICD10: M70.62] Diagnosis: Iliotibial band syndrome, left leg[ICD10: M76.32] Diagnosis: Sciatica, left side[ICD10: M54.32] Elizabet Falk MD, [facility] CPT-4: 59260 12/16/2014 ([id number]) 66566 EST. P ATIENT, LEVEL III Diagnosis: Sciatica, left side[ICD10: M54.32] Diagnosis: Sacroiliitis, not elsewhere classified[ICD10: M46.1] Elizabet Falk MD, [facility] CPT-4: 03211 12/09/2014 ([id number]) 46396 EST. 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] Diagnosis: Carpal tunnel syndrome, unspecified upper limb[ICD10: G56.00] Shannon Falk MD, [facility] CPT-4: 69928 11/13/2014 ([id number]) OFFICE VISI T, NEW - LEVEL 4 Diagnosis: ESSENTIAL HYPERTENSION[ICD9: 401.9] Diagnosis: HYPERLIPIDEMIA[ICD9: 272.4] Diagnosis: DEPRESSIVE DISORDER NEC[ICD9: 311] Diagnosis: Diarrhea[ICD9: 787.91] [facility] CPT-4: 18937 07/10/2014 Plan of Care Planned Activity Notes C odes Status Date Appointment: Shannon Falk WPtel: [address] [place], [place] [phone] (15 min) Moderate 03/28/2018 Visit Plan: Hyponatremia - continue with current treatment - gatorade/powerade, monitor electrolytes. 03/27/2018 Appointment: Deya Shannon WPtel: [facility] (15 min) Moderate 03/27/2018 Patient Education: Patient Medication Summary Completed 03/27/2018 Patient Education: Patient Medication Summary Completed 02/01/2018 Appointment: Shannon Falk WPtel[facility] (15 min) Moderate 01/22/2018 Patient Education: Patient [...] surrogate. 01/02/2018 Appointment: Elizabet Donaldson WPtel: [facility] [place] [address] - Annual Wellness Visit 01/02/2018 Patient Education: [...] control. 12/26/2017 Appointment: Shannon Falk WPtel: [phone] [facility] [place] (15 min) Moderate 12/26/2017 Patient Education: [...] plan. 10/17/2017 Appointment: Elizabet Donaldson WPtel: [phone] [phone] [place] (15 min) Moderate 10/17/2017 Patient [...] home. 09/27/2017 Appointment: [facility]el: [phone] [facility] [place] (15 min) Moderate 09/27/2017 Patient Education: Patient Medication Summary Completed 09/27/2017 Care Plan: Referral Order SNOMED-CT : [id number] Pending 09/27/2017 Appointment: Shannon Falk [facility]Ptel: [phone] [facility] [place] (15 min) Moderate 09/21/2017 Appointment: Nurse [...] daily. 03/24/2017 Appointment: Shannon Falk WPtel: [facility] [place] (15 min) Moderate 03/24/2017 Patient Education: Patient Medication Summary Completed 03/24/2017 Appointment: Shannon [facility]Ptel: [phone] [facility] [place] (15 min) Moderate 03/16/2017 Appointment: [facility]el[facility] [phone] [facility] (15 min) Moderate 03/01/2017 Visit Plan: Hypertension [...] care. 08/30/2016 Appointment: Shannon [facility]Ptel: [phone] [facility] (15 min) Moderate 08/30/2016 Patient Education: Patient [...] of plan. 08/08/2016 Appointment: Elizabet Donaldson WPtel: [phone] [facility] [place] (30 min) Complex 08/08/2016 Patient Education: Patient Medication Summary Completed 08/08/2016 Referral: [phone] [facility] Referral Initiated 08/01/2016 Visit Plan: Vaginal yeast [...] refer. 06/27/2016 Appointment: Shila Deluna [facility]el: [phone] [facility] (30 min) Complex 06/27/2016 Patient Education: Patient Medication Summary Completed 06/27/2016 Care Plan: Referral Order SNOMED-CT : [id number] Pending 06/27/2016 Visit Plan: Left foot, 1st and 2nd toe pain-suspect fracture of left great toe-will obtain xrays and proceed as indicated. Patient verbalized understanding of plan. 05/23/2016 Appointment: Elizabet Donaldson WPtel: [phone] [phone] [place] (15 min) Moderate 05/23/2016 Patient [...] probiotics 02/23/2016 Appointment: Shannon [facility]Ptel: [phone] [facility] (15 min) Moderate 02/23/2016 Patient Education: Patient Medication Summary Completed 02/23/2016 Patient Education: Hypertension Completed 02/23/2016 Visit Plan: Hypertension - maricruz sanchez - [...] Completed 09/15/2015 Appointment: Shannon Falk [facility]Ptel: [phone] [facility] (15 min) Moderate 07/29/2015 Visit Plan: Rash [...] - vitamin B12 liquid 2000mcg daily - [facility] sells the liquid b12, folic acid - take daily. metanex 1 capsule twice daily - call office if this seems to help decrease nerve pain increase the night-time dosing of gabapentin to 300mg in AM, Noon, 6pm and 10pm 04/09/2015 Appointment: Shannon Falk WPtel: [phone] [facility] (15 min) Moderate 04/09/2015 Patient Education: Patient [...] 2012. 03/10/2015 Appointment: Shannon [facility]Ptel: [phone] [facility] (15 min) Moderate 03/10/2015 Patient Education: Patient Medication Summary Completed 03/10/2015 Care Plan: SCREENINGMAMMOGRAPHYDIGITAL LOINC : 09078-4 Ordered 03/10/2015 Care Plan: Referral Order SNOMED-CT : [id number] Ordered 03/10/2015 Care Plan: Referral Order SNOMED-CT : [id number] Ordered 03/10/2015 Visit Plan: Left hip bursitis/Iliot [...] Patient Medication Summary Completed 12/16/2014 Patient Education: .Pipap espinosa lliot ibial Band Rehabilitation exercises Completed 12/16/2014 Patient Education: .Pippa [employer] Exercise for Sciati ca Completed 12/16/2014 Care Plan: Referral Order SNOMED-CT : [id number] Ordered 12/16/2014 Visit Plan: Sacroiliitis - back [...] Medication Summary Completed 12/09/2014 Patient Education: .P[employer] Exercise for Sciati ca Completed 12/09/2014 Visit [...] brace. 11/13/2014 Appointment: Shannon Falk WPtel: [phone] [facility] Follow up 11/13/2014 Patient Education: Patient Medication [...] stomach pain. ALIGN PROBIOTIC - TAKE DAILY ([employer] OR [employer] -TWO OTHER PROBIOTICS THAT ARE HIGH QUALITY) CIPROFLOXACIN TO BE TAKEN IF NEEDED IF THE DIARRHEA DOES NOT IMPROVE OR IF IT WORSENS. 07/10/2014 Appointment: Shannon Falk WPtel: [phone] [facility] [place] ([place]) New Patient 07/10/2014 Patient Education: Patient Medication Summary Completed 07/10/2014 Patient Education: Hypertension Completed 07/10/2014 Referral: Darci Spann Referral Relationship Referral: External, Ordering Provider Referral Appointment Requested Referral: External, Ordering Provider 09/28 Referral info faxed to [facility] 8/14 They tried calling her with an appt and she did not answer. Called patient and she will call them back. Appoint ment Requested Referral: External, Ordering Provider Referral Appointment Requested Referral: Delia Bernstein [facility]el[facility] [phone] [facility] [place] Referral Initiated Referral: External, Ordering Provider [...] herself. Increase the celebrex to twice daily. Will give steroid sh ot today, will [...] they worsen, or with any concerns. . Welcome to Medic[facility] e Exam - [...] to maintain independece in the home. . Hypertension - wel l controlled [...] citalopram at this time. vitamin B12 liquid 2 000mcg daily - [facility] sells the liquid b12 folic acid - [...] - vitamin B12 liquid 2000mcg daily - [facility] sells the liquid b12, folic acid - [...] with supportive care. dr. gely duncan - [facility] - hand specialist [...] allergy spray. ALIGN PROBIOTIC - TAKE DAILY (Prim[employer]Vision OR [email or web address] -TWO OTHER PROBIOTICS THAT ARE HIGH QUALITY) [...] stomach pain. ALIGN PROBIOTIC - TAKE DAILY ([employer]’Vision OR [email or web address] -TWO OTHER PROBIOTICS THAT ARE HIGH QUALITY) [...] repeat scope in 2013. XRAY LUMBAR SPINE AN D SI JOINT [...] or if any worse. . Vaginal yeast infe ction - Discussed [...] for a pelvic exam. you currently have a mlodipine 5mg, increase [...] Increase the celebrex to twice daily. cata' urmila cottag e - look up on [employer] . Hypertension - well controlled - elgin [...]
--- OUTSIDE RECORDS SUMMARY | 2019-06-07 16:40 | XMS REPORT | CCD ---
Author Author Dalila Falk Organization Shannon Falk MD, [facility] Address [address] [place] [address] Phone Care Team Providers Care Panelboard Tank Pumper Name Role Phone PP Unavailable CCM Unavailable Summary Purpose Interface Exchange Insurance Providers Payer name Policy type / Coverage type Covered constitution party ID Effective Begin Date Effective End Date WPS Medicare Part B Medicare Part B [id number] Unknown [place] [employer] Insurance M edicare Part B [id number] Unkn own Family history Brother Diagnosis Age [...] Unknown 2 07/10/[address]: [id number] Has never smoked or chewed tobacco 07/10/2014 Alcohol history Unknown occasionally drinks alcohol 07/10/2014 Allergies, Adverse Reactions, Alerts Substance Reaction Codes Entered Date Inactivated Date Status Remicade hives RxNorm: 957767 03/24/2017 No Inactive Date Active * NO [...] 7.5 mg-a cetaminophen 325 mg tablet RxNorm: 059558 1-2 Tablet(s) PO Q4H as needed 05/01/2018 05/15/2018 Active cefdinir 300 mg capsule RxNorm: 425824 1 Capsule(s) PO BID 04/17/2018 04/23/2018 Inactive cefdinir 300 mg capsule RxNorm: 747278 1 Capsule(s) PO BID 04/17/2018 04/16/2018 Inactive clobetasol 0.05 % to pical cream RxNorm: 663983 1 dime size amount Ap plication TOP daily as needed vaginal irritation 03/27/2018 07/24/2018 Active metoprolol succinate ER 25 mg tablet,extended release 24 hr RxNorm: 393058 1 Tablet(s) PO daily 03/27/2018 10/22/2018 Active Synthroid 75 mcg tablet RxNorm: 907400 Tablet(s) TAKE 1 TABLET BY MOUTH DAILY 02/07/2018 09/04/2018 Ac tive Generic For:*SYNTHROID 0.075MG TAB 11/14 9:16:33 AM N O T I C E Last quantity doesn't match original quantity hydrocodone 7.5 mg-a cetaminophen 325 mg tablet RxNorm: 192139 1-2 Tablet(s) PO Q4H as needed 10/12/2017 10/26/2017 Inactive Synthroid 75 mcg tablet RxNorm: 878820 Tablet(s) TAKE 1 TABLET BY MOUTH DAILY 08/09/2017 02/06/2018 In active Generic For:*SYNTHROID 0.075MG TAB 10/22 9:16:33 AM N O T I C E Last quantity doesn't match original quantity hydrocodone 7.5 mg-a cetaminophen 325 mg tablet RxNorm: 899633 1-2 Tablet(s) PO Q4H as needed 05/22/2017 06/20/2017 Inactive citalopram 20 mg tablet RxNorm: 764550 Tablet(s) TAKE ONE (1) TABLET BY MOUTH D AILY 05/09/2017 05/03/2018 Ac tive amlodipine 10 mg tablet RxNorm: 253600 1 Tablet(s) PO daily 1 Tablet(s) PO ashlie y 05/09/2017 09/26/2017 In active losartan 100 mg tablet RxNorm: 270736 1 Tablet(s) PO daily TAKE 1 TABLET BY MO UTH DAILY 05/09/2017 01/01/2018 Inactive Celebrex 200 mg capsule RxNorm: 091694 1 Capsule(s) PO BID 03/24/2017 03/18/2018 Inactive gabapentin 300 mg ca psule RxNorm: 761941 1 Capsule(s) PO daily 03/24/2017 No Stop Date Active Celebrex 200 mg capsule RxNorm: 485656 1 Capsule(s) PO BID 1 Capsule(s) PO ashlie y 03/24/2017 03/23/2017 In active amlodipine 10 mg tablet RxNorm: 623797 1 Tablet(s) PO daily 1 Tablet(s) PO ashlie y 03/24/2017 05/08/2017 In active Lipitor 40 mg tablet RxNorm: 417722 Tablet(s) TAKE ONE TABLET BY MOUTH AT BE DTIGA 02/14/2017 09/26/2017 Inactive hydrocodone 7.5 mg-a cetaminophen 325 mg tablet RxNorm: 915132 1-2 Tablet(s) PO Q4H as needed 01/16/2017 02/14/2017 Inactive scopolamine 1.5 mg t ransdermal patch (1 mg over 3 days) RxNorm: 809170 1 Patch TD Q72H 11/25/2016 12/04/2016 Inactive scopolamine 1.5 mg t ransdermal patch (1 mg over 3 days) RxNorm: 919248 1 Patch TD Q72H 11/25/2016 11/24/2016 Inactive losartan 100 mg tablet RxNorm: 410202 1 Tablet(s) PO daily TAKE [address] [facility] DAILY 11/14/2016 05/08/2017 Inactive Generic For:COZAAR 100MG TA B 05/17/2016 8:31:51 AM Synthroid 75 mcg tablet RxNorm: 152999 TAKE 1 TABLET BY MOUTH DAILY 11/14/2016 06/11/2017 Inactive Generic For:*SYNTHROID 0.075MG TAB 10/22 9:16:33 AM N O T I C E Last quantity doesn't match original quantity citalopram 20 mg tablet RxNorm: 672058 TAKE ONE (1) TABLET BY MOUTH DAILY 11/14/2016 05/08/2017 In active Generic For:CELEXA 20MG TAB 11/14/2016 8:30:49 AM N O T I C E Last quantity doesn't match original quantity prednisone 10 mg tab lets in a dose pack RxNorm: 225792 1 Tablet(s) PO UD 09/30/2016 10/05/2016 In active 6-5-4-3-2-1 hydrocodone 7.5 mg-a cetaminophen 325 mg tablet RxNorm: 611455 1-2 Tablet(s) PO Q4H as needed 09/20/2016 01/15/2017 Inactive amlodipine 5 mg tablet RxNorm: 872482 TAKE ONE TABLET BY MOUTH EVERY DAY 08/15/2016 03/23/2017 In active Generic For:NORVASC 5 MG TABLET 017 3:56:26 PM N O T I C E Last quantity doesn't match original quantity Kenalog 40 mg/mL [place] pension for injection RxNorm: 1683137 1 Milliliter(s) Inj 08/08/2016 08/08/2016 In active prednisone 10 mg tab lets in a dose pack RxNorm: 269842 1 Tablet(s) PO UD 08/08/2016 08/07/2016 In active prednisone 10 mg tab lets in a dose pack RxNorm: 267512 1 Tablet(s) PO UD 08/08/2016 08/13/2016 In active 6-5-4-3-2-1 Diflucan 150 mg tablet RxNorm: 910507 1 Tablet(s) PO daily 06/27/2016 07/10/2016 Inactive Synthroid 75 mcg tablet RxNorm: 357964 TAKE 1 TABLET BY MOUTH DAILY 06/16/2016 11/13/2016 Inactive Generic For:*SYNTHROID 0.075MG TAB pt wo uld like a 90 day supply N O T I C E Last quantity doesn't match original quantity hydrocodone 7.5 mg-a cetaminophen 325 mg tablet RxNorm: 055722 1-2 Tablet(s) PO Q4H as needed 06/06/2016 09/19/2016 Inactive citalopram 20 mg tablet RxNorm: 777764 TAKE ONE (1) TABLET BY MOUTH DAILY 05/18/2016 11/13/2016 In active Generic For:CELEXA 20MG TAB 05/17/2016 8:32:02 AM Celebrex 200 mg capsule RxNorm: 394552 1 Capsule(s) PO daily 05/17/2016 03/23/2017 Inactive losartan 100 mg tablet RxNorm: 142896 TAKE 1 TABLET BY MOUTH DAILY 05/17/2016 11/12/2016 Inactive Generic For:COZAAR 100MG TAB 05/17/2016 8:31:51 AM amlodipine 5 mg tablet RxNorm: 495893 1 Tablet(s) PO daily 05/10/2016 08/14/2016 Inactive Cipro 500 mg tablet RxNorm: 398222 1 Tablet(s) PO BID 05/04/2016 05/03/2016 Inactive Cipro 500 mg tablet RxNorm: 637983 1 Tablet(s) PO BID 05/04/2016 05/13/2016 Inactive Diflucan 150 mg tablet RxNorm: 373172 1 Tablet(s) PO daily 04/18/2016 05/01/2016 Inactive Monistat Soothing Ca re 1.2 % topical gel RxNorm: 0444396 1 Application TOP BI D 03/07/2016 01/01/2018 In active Diflucan 150 mg tablet RxNorm: 277452 1 Tablet(s) PO daily 03/07/2016 03/13/2016 Inactive Lipitor 40 mg tablet RxNorm: 736365 Tablet(s) TAKE ONE TABLET BY MOUTH AT DTIGA 02/23/2016 02/13/2017 Inactive citalopram 20 mg tablet RxNorm: 233153 TAKE ONE (1) TABLET BY MOUTH DAILY 02/18/2016 05/17/2016 In active Generic For:CELEXA 20MG TAB refill reque st losartan 100 mg tablet RxNorm: 064902 Tablet(s) 1 Tablet, 1 time per Day 02/09/2016 05/16/2016 In active INSURANCE WILL NOT COVER ADELA ANDREWS UNTIL OTHER FORMULARIES HAVE BEEN TRIED AND FAILED hydrocodone 7.5 mg-a cetaminophen 325 mg tablet RxNorm: 449244 1-2 Tablet(s) PO Q4H as needed 02/03/2016 06/05/2016 Inactive Synthroid 75 mcg tablet RxNorm: 212752 Tablet(s) TAKE 1 TABLET BY MOUTH DAILY 01/19/2016 06/15/2016 In active Generic For:*SYNTHROID 0.075MG TAB 04/2014 10:00:02 AM N O T I C E PRESCRIPTION PREVIOUSLY AUTHORIZED BY DOCTOR:SWATI BEY prednisone 10 mg tab lets in a dose pack RxNorm: 082734 1 Tablet(s) PO UD 01/07/2016 02/22/2016 In active 6-5-4-3-2-1 amlodipine 10 mg tablet RxNorm: 775596 1 Tablet(s) PO daily 12/07/2015 11/30/2016 Inactive citalopram 20 mg tablet RxNorm: 714665 TAKE ONE (1) TABLET BY MOUTH DAILY 11/17/2015 02/14/2016 In active Generic For:CELEXA 20MG TAB refill reque st hydrocodone 7.5 mg-a cetaminophen 325 mg tablet RxNorm: 606571 1-2 Tablet(s) PO Q4H as needed 10/08/2015 02/02/2016 Inactive losartan 100 mg tablet RxNorm: 616994 Tablet(s) 1 Tablet, 1 time per Day 2015 02/07/2016 In active INSURANCE WILL NOT COVER ADELA ANDREWS UNTIL OTHER FORMULARIES HAVE BEEN TRIED AND FAILED citalopram 20 mg tablet RxNorm: 651167 TAKE ONE (1) TABLET BY MOUTH DAILY 08/10/2015 11/07/2015 In active Generic For:CELEXA 20MG TAB 08/10/2015 8:59:58 AM Synthroid 75 mcg tablet RxNorm: 008890 Tablet(s) TAKE 1 TABLET BY MOUTH DAILY 05/26/2015 12/21/2015 In active Generic For:*SYNTHROID 0.075MG TAB 04/2014 10:00:02 AM N O T I C E PRESCRIPTION PREVIOUSLY AUTHORIZED BY DOCTOR:SWATI BEY prednisone 20 mg tablet RxNorm: 448904 2 Tablet(s) PO daily 05/26/2015 05/30/2015 Inactive Lipitor 40 mg tablet RxNorm: 227504 TAKE ONE TABLET BY MOUTH AT BEDTIME 05/14/2015 02/07/2016 In active Generic For:LIPITOR 40MG TAB 05/13/2015 8:26:33 AM N O T I C E PRESCRIPTION PREVIOUSLY AUTHORIZED BY DOCTOR:SWATI BEY hydrocodone 7.5 mg-a cetaminophen 325 mg tablet RxNorm: 420918 1-2 Tablet(s) PO Q4H as needed 05/11/2015 10/07/2015 Inactive Celebrex 200 mg capsule RxNorm: 174851 1 Capsule(s) PO daily 05/07/2015 04/30/2016 Inactive citalopram 20 mg tablet RxNorm: 578090 TAKE ONE (1) TABLET BY MOUTH DAILY 04/27/2015 07/25/2015 In active Generic For:CELEXA 20MG TAB 04/26/2015 7:30:08 PM gabapentin 300 mg ca psule RxNorm: 814299 1 Capsule(s) PO QID 04/09/2015 04/02/2016 Inactive citalopram 20 mg tablet RxNorm: 886440 TAKE ONE (1) TABLET BY MOUTH DAILY 01/26/2015 04/25/2015 In active Generic For:CELEXA 20MG TAB 01/26/2015 8:40:11 AM losartan 100 mg tablet RxNorm: 271868 1 Tablet, 1 time per Day 01/26/2015 03/29/2015 Inactive INSURANCE WILL NOT COVER ADELA ANDREWS UNTIL OTHER FORMULARIES HAVE BEEN TRIED AND FAILED hydrocodone 7.5 mg-a cetaminophen 325 mg tablet RxNorm: 302897 1-2 Tablet(s) PO Q4H as needed 01/23/2015 05/10/2015 Inactive Neurontin 100 mg cap almaz RxNorm: 830770 1 Capsule(s) PO TID 01/14/2015 03/09/2015 Inactive Neurontin 100 mg cap almaz RxNorm: 096541 1 Capsule(s) PO TID 01/14/2015 01/13/2015 Inactive Keflex 500 mg capsule RxNorm: 271136 1 Capsule(s) PO TID 01/06/2015 01/05/2015 Inactive Keflex 500 mg capsule RxNorm: 497379 1 Capsule(s) PO TID 01/06/2015 01/12/2015 Inactive hydrocodone 7.5 mg-a cetaminophen 325 mg tablet RxNorm: 129414 1-2 Tablet(s) PO Q4H as needed 12/29/2014 01/22/2015 Inactive Duexis 800 mg-26.6 m g tablet RxNorm: 9189712 1 Tablet(s) PO TID a s needed 12/19/2014 03/29/2015 In active Duexis 800 mg-26.6 m g tablet RxNorm: 6330509 1 Tablet(s) PO TID a s needed 12/19/2014 12/18/2014 In active Kenalog 40 mg/mL [place] pension for injection RxNorm: 9917826 1 Milliliter(s) Inj 12/09/2014 12/09/2014 In active prednisone 10 mg tab lets in a dose pack RxNorm: 141360 1 Tablet(s) PO UD 12/09/2014 12/14/2014 In active 6-5-4-3-2-1 amlodipine 10 mg tablet RxNorm: 467450 1 Tablet(s) PO daily 11/13/2014 11/07/2015 Inactive citalopram 20 mg tablet RxNorm: 690366 TAKE ONE (1) TABLET BY MOUTH DAILY 10/23/2014 01/20/2015 In active Generic For:CELEXA 20MG TAB 10/23/2014 4:32:02 PM N O T I C E PRESCRIPTION PREVIOUSLY AUTHORIZED BY DOCTOR:SWATI BEY hydrocodone 7.5 mg-a cetaminophen 325 mg tablet RxNorm: 484333 1-2 Tablet(s) PO Q4H as needed 10/22/2014 12/28/2014 Inactive Synthroid 75 mcg tablet RxNorm: 186716 TAKE 1 TABLET BY MOUTH DAILY 09/22/2014 04/19/2015 Inactive Generic For:*SYNTHROID 0.075MG TAB 04/2014 10:00:02 AM N O T I C E PRESCRIPTION PREVIOUSLY AUTHORIZED BY DOCTOR:SWATI BEY amlodipine 5 mg tablet RxNorm: 521430 1 Tablet(s) PO daily 08/25/2014 11/12/2014 Inactive Synthroid 75 mcg tablet RxNorm: 356142 1 Tablet(s) PO daily ecept a 1/2 tab on Monday07/11/2014 09/21/2014 Inactive Flonase Allergy Reli ef 50 mcg/actuation nasal spray,suspension RxNorm: 1 [place] NASAL BID 07/10/2014 12/06/2014 Inactive Benicar 20 mg tablet RxNorm: 828800 1 Tablet(s) PO daily No Start Date Active methotrexate sodium 2.5 mg tablet RxNorm: 634558 3 Tablet(s) PO weekly No Start Date 04/08/2015 Inactive Aldactone 25 mg tablet RxNorm: 638389 1 Tablet(s) PO daily No Start Date 03/26/2018 Inactive gabapentin 300 mg ca psule RxNorm: 607508 1 Capsule(s) PO TID No Start Date 04/08/2015 Inactive Plaquenil 200 mg tablet RxNorm: 408616 1 Tablet(s) PO BID No Start Date 05/22/2016 Inactive losartan 100 mg tablet RxNorm: 399759 1 Tablet(s) PO daily No Start Date 01/25/2015 Inactive Remicade intravenous RxNorm: 119891 intravenous No Start Date 03/23/2017 Inactive amlodipine 5 mg tablet RxNorm: 814451 1 Tablet(s) PO daily No Start Date 08/24/2014 Inactive Celebrex 200 mg capsule RxNorm: 044096 1 Capsule(s) PO daily No Start Date 10/16/2017 Inactive citalopram 20 mg tablet RxNorm: 964488 1 Tablet(s) PO daily No Start Date 10/22/2014 Inactive Synthroid 88 mcg tablet RxNorm: 247353 1 Tablet(s) PO daily No Start Date 07/09/2014 Inactive Arava 20 mg tablet RxNorm: 405281 1 Tablet(s) PO daily No Start Date 01/01/2018 Inactive Lipitor 40 mg tablet RxNorm: 602246 1 Tablet(s) PO daily No Start Date 05/13/2015 Inactive chlorthalidone 25 mg tablet RxNorm: 237479 1 Tablet(s) PO daily No Start Date 03/26/2018 Inactive Synthroid 75 mcg tablet RxNorm: 544272 1 Tablet(s) PO daily No Start Date 07/10/2014 Inactive hydrocodone 7.5 mg-a cetaminophen 325 mg tablet RxNorm: 380192 Tablet(s) PO as neede d No Start Date 10/21/2014 Inactive Medication Administered Medication Codes Instruc tions Start Date Status Kenalog 40 mg/mL suspension for injection RxNorm: 7441235 1Milliliter 08/08/2016 N o longer Active Kenalog 40 mg/mL suspension for injection RxNorm: 4847649 1Milliliter 12/09/2014 N o longer Active Immunizations [...] 31.1 pg 12/26/2017 Cbc With Differential Ord2 [place]% 9.2 % 12/26/2017 Cbc With Differential Ord2 [...] 1.53 K/ul 12/26/2017 Cbc With Differential Ord2 [place] ABS# 0.7 K/ul 12/26/2017 Cbc With Differential Ord2 Eos ABS# 0.1 K/ul 12/26/2017 Cbc With Differential Ord2 Baso ABS# 0.0 K/ul 12/26/2017 Free T4 Asr527 FREE T4 0.93 ng/dL 12/26/2017 Comp Metabolic Nra998 NA 135 mEq/L 12/26/2017 Comp Metabolic Tqa139 K 4.4 mEq/L 12/26/2017 Comp Metabolic Phm049 CL 98 mEq/L 12/26/2017 Comp Metabolic Clj503 CO2 28.0 mEq/L 12/26/2017 Comp Metabolic Hoq860 AN ION GAP 13 12/26/2017 Comp Metabolic Gzz998 GL UCOSE 92 mg/dL 12/26/2017 Comp Metabolic Nbc852 Cr eat 1.1 mg/dL 12/26/2017 Comp Metabolic Fhg725 eG FR 52 ml/min/1.73m2 12/26 Comp Metabolic Lcz670 BUN 25 mg/dL 12/26/2017 Comp Metabolic Atu940 B/ C Ratio 22.7 Ratio 12/26/2017 Comp Metabolic Wjf718 CA LCIUM 9.8 mg/dL 12/26/2017 Comp Metabolic Eja468 AL K PHOS 91 U/L 12/26/2017 Comp Metabolic Wyu031 T(SGOT) 16 U/L 12/26/2017 Comp Metabolic Wom032 AL T(SGPT) 12 U/L 12/26/2017 Comp Metabolic Kyw347 BI LI T 0.5 mg/dL 12/26/2017 Comp Metabolic Quf520 AL BUMIN 4.3 g/dL 12/26/2017 Comp Metabolic Cak492 TP RO 6.8 g/dL 12/26/2017 Comp Metabolic Wci685 GL OB 2.5 g/dL 12/26/2017 Comp Metabolic Ffl541 A/ G Ratio 1.7 Ratio 12/26/2017 Comp Metabolic Oys979 Os mo 274 mOsmo 12/26/2017 Urine Culture Ucult Prel iminary NO Growth Day 1 06/29 Urine Culture Ucult Comp lete NO Growth Day 2 06/29 Culture Urine [id number] URI NE CULTURE SEE NOTES 04/22/2016 Culture Urine [id number] Con tinued Results 04/22/2016 Urine Culture Ucult Comp lete >100,000 col/ml aerobic grow th sent to ref lab 04/20/2016 Comp Metabolic Ngq571 NA 137 mEq/L 02/10/2016 Comp Metabolic Zjw370 K 4.1 mEq/L 02/10/2016 Comp Metabolic Vag152 CL 102 mEq/L 02/10/2016 Comp Metabolic Icg965 CO2 28.0 mEq/L 02/10/2016 Comp Metabolic Jzx748 AN ION GAP 11 02/10/2016 Comp Metabolic Ije976 GL UCOSE 104 mg/dL 02/10/2016 Comp Metabolic Erv426 Cr eat 0.7 mg/dL 02/10/2016 Comp Metabolic Mhf248 eG FR 83 ml/min/1.73m2 02/09 Comp Metabolic Ndv219 BUN 14 mg/dL 02/10/2016 Comp Metabolic Eib906 B/ C Ratio 18.9 Ratio 02/10/2016 Comp Metabolic Okc525 CA LCIUM 9.7 mg/dL 02/10/2016 Comp Metabolic Nci828 AL K PHOS 121 U/L 02/10/2016 Comp Metabolic Tpu149 T(SGOT) 19 U/L 02/10/2016 Comp Metabolic Bci341 AL T(SGPT) 13 U/L 02/10/2016 Comp Metabolic Ogs795 BI LI T 0.5 mg/dL 02/10/2016 Comp Metabolic Ere794 AL BUMIN 4.3 g/dL 02/10/2016 Comp Metabolic Ghh695 TP RO 6.8 g/dL 02/10/2016 Comp Metabolic Lgn166 GL OB 2.5 g/dL 02/10/2016 Comp Metabolic Upv944 A/ G Ratio 1.7 Ratio 02/10/2016 Comp Metabolic Twg484 Os mo 275 mOsmo 02/10/2016 Lipid Ord30 CHOL 229 mg/dL 02/10/2016 Lipid Ord30 HDL 59.0 mg/dl 02/10/2016 Lipid Ord30 TRIG 252 mg/dL 02/10/2016 Lipid Ord30 LDL 120 mg/dL 02/10/2016 Lipid Ord30 C/HDL 3.9 Ratio 02/10/2016 Free T4 Kaq815 FREE T4 0.87 ng/dL 02/10/2016 Tsh Ord6 [...] 29.2 pg 02/10/2016 Cbc With Differential Ord2 [place]% 18.6 % 02/10/2016 Cbc With Differential Ord2 [...] 1.81 K/ul 02/10/2016 Cbc With Differential Ord2 [place] ABS# 1.1 K/ul 02/10/2016 Cbc With Differential Ord2 Eos ABS# 0.1 K/ul 02/10/2016 Cbc With Differential Ord2 Baso ABS# 0.1 K/ul 02/10/2016 Tsh Ord6 hTSH II 0.85 uIU/mL 04/02/2015 Lipid Ord30 CHOL 207 mg/dL 04/02/2015 Lipid Ord30 HDL 68.0 mg/dl 04/02/2015 Lipid Ord30 TRIG 193 mg/dL 04/02/2015 Lipid Ord30 LDL 100 mg/dL 04/02/2015 Lipid Ord30 C/HDL 3.0 Ratio 04/02/2015 Free T4 Kkk472 FREE T4 1.09 ng/dL 04/02/2015 Free T4 Ixj480 FREE T4 0.82 ng/dL 10/15/2014 Tsh Ord6 [...] 1: 142/84 Code: 8480-6 BMI: 31.2 Code: 49026-1 Heart Rate 1: 75 bpm Height: 5'4" SpO2: 97% Weight: 182 lbs 01/02/2018 Blood Pressure 1: 136/68 Code: 8480-6 BMI: 32.4 Code: 25541-7 Heart Rate 1: 80 bpm Height: 5'4" SpO2: 99% Waist Measure (cm): 104 cm Weight: 189 lbs 12/26/2017 Blood Pressure 1: 138/72 Code: 8480-6 BMI: 31.4 Code: 75560-5 Heart Rate 1: 72 bpm Height: 5'4" SpO2: 96% Weight: 183 lbs 10/17/2017 Blood Pressure 1: 156/72 Code: 8480-6 BMI: 31.4 Code: 38537-7 Heart Rate 1: 81 bpm Height: 5'4" SpO2: 98% Temperature: 36.5 (C ) / 97.7 (F) Weight: 183 lbs 09/27/2017 Blood Pressure 1: 140/82 Code: 8480-6 BMI: 32.1 Code: 97775-5 Heart Rate 1: 82 bpm Height: 5'4" SpO2: 98% Weight: 187 lbs 07/31/2017 Blood Pressure 1: 138/82 Code: 8480-6 Heart Rate 1: 87 bpm SpO2: 99% 03/24/2017 Blood Pressure 1: 146/86 Code: 8480-6 BMI: 31.8 Code: 04043-4 Heart Rate 1: 79 bpm Height: 5'4" SpO2: 96% Temperature: 36.4 (C ) / 97.5 (F) Weight: 185 lbs 08/30/2016 Blood Pressure 1: 142/88 Code: 8480-6 BMI: 31.6 Code: 63292-7 Heart Rate 1: 80 bpm Height: 5'4" SpO2: 93% Weight: 184 lbs 08/08/2016 Blood Pressure 1: 142/76 Code: 8480-6 BMI: 29.9 Code: 35565-6 Heart Rate 1: 80 bpm Height: 5'4" SpO2: 94% Weight: 174 lbs 06/27/2016 Blood Pressure 1: 156/72 Code: 8480-6 BMI: 30.6 Code: 30927-8 Heart Rate 1: 78 bpm Height: 5'4" SpO2: 95% Weight: 178 lbs 05/23/2016 Blood Pressure 1: 146/84 Code: 8480-6 Heart Rate 1: 66 bpm Height: 5'4" SpO2: 94% 04/18/2016 Blood Pressure 1: 148/84 Code: 8480-6 BMI: 30.2 Code: 81041-3 Heart Rate 1: 81 bpm Height: 5'4" SpO2: 97% Weight: 176 lbs 03/07/2016 Blood Pressure 1: 130/78 Code: 8480-6 BMI: 30.0 Code: 45778-2 Heart Rate 1: 85 bpm Height: 5'4" SpO2: 96% Weight: 175 lbs 02/23/2016 Blood Pressure 1: 140/78 Code: 8480-6 BMI: 29.7 Code: 96239-6 Heart Rate 1: 74 bpm Height: 5'4" SpO2: 95% Weight: 173 lbs 09/15/2015 Blood Pressure 1: 140/88 Code: 8480-6 BMI: 29.4 Code: 44913-1 Heart Rate 1: 81 bpm Height: 5'4" SpO2: 97% Weight: 171 lbs 8 oz 05/26/2015 Blood Pressure 1: 150/80 Code: 8480-6 BMI: 31.6 Code: 96254-8 Heart Rate 1: 70 bpm Height: 5'4" SpO2: 96% Weight: 184 lbs 04/09/2015 Blood Pressure 1: 136/74 Code: 8480-6 BMI: 31.4 Code: 85985-3 Heart Rate 1: 91 bpm Height: 5'4" SpO2: 94% Weight: 183 lbs 03/30/2015 Blood Pressure 1: 130/72 Code: 8480-6 BMI: 30.9 Code: 01032-1 Heart Rate 1: 80 bpm Height: 5'4" SpO2: 97% Waist Measure (cm): 102 cm Weight: 180 lbs 03/10/2015 Blood Pressure 1: 152/80 Code: 8480-6 BMI: 31.1 Code: 72205-0 Heart Rate 1: 66 bpm Height: 5'4" SpO2: 98% Weight: 181 lbs 12/16/2014 Blood Pressure 1: 132/88 Code: 8480-6 Blood Pressure 1: 132/88 Code: 8480-6 Heart Rate 1: 88 bpm SpO2: 98% Weight: 183 lbs 12/09/2014 Blood Pressure 1: 140/82 Code: 8480-6 BMI: 31.2 Code: 12948-6 Heart Rate 1: 105 bpm Height: 5'4" SpO2: 93% Weight: 182 lbs 11/13/2014 Blood Pressure 1: 148/88 Code: 8480-6 BMI: 31.8 Code: 48735-1 Heart Rate 1: 54 bpm Height: 5'4" SpO2: 98% Weight: 185 lbs 07/10/2014 Blood Pressure 1: 144/96 Code: 8480-6 BMI: 31.4 Code: 79463-1 Heart Rate 1: 99 bpm Height: 5'4" [...] frantz sary hypertension 09/27/2017 None hypothyroid 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 P ATIENT, LEVEL III Diagnosis: Hypo-osmolality and hyponatremia[ICD10: E87.1] Shannon Falk MD, [facility] CPT-4: 35451 03/27/2018 [id number] [id number] EST. P ATIENT, LEVEL IV Diagnosis: Atrophy of thyroid (acquired)[ICD10: E03.4] Diagnosis: Essential (primary) hypertension[ICD10: I10] Diagnosis: 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[ICD10: M05.741] Diagnosis: 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[ICD10: M05.742] Diagnosis: Pain in thoracic spine[ICD10: M54.6] [facility] CPT-4: 44642 12/26/2017 [id number]) [id number] EST. P ATIENT, LEVEL III Diagnosis: Otalgia, left ear[ICD10: H92.02] Diagnosis: Essential (primary) hypertension[ICD10: I10] [facility] CPT-4: 88727 10/17/2017 [id number]) [id number] EST. P ATIENT, LEVEL IV Diagnosis: 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[ICD10: M05.741] Diagnosis: 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[ICD10: M05.742] Diagnosis: Atrophy of thyroid (acquired)[ICD10: E03.4] Diagnosis: Essential (primary) hypertension[ICD10: I10] Shannon [facility] CPT-4: 28447 09/27/2017 ([id number]) Miscellaneou s no charge Diagnosis: Essential (primary) hypertension[ICD10: I10] Elizabet Falk MD, [facility] CPT-4: 69195 07/31/2017 ([id number]) 61348 EST. P ATIENT, LEVEL IV Diagnosis: Essential (primary) hypertension[ICD10: I10] Diagnosis: Atrophy of thyroid (acquired)[ICD10: E03.4] Diagnosis: 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[ICD10: M05.741] Diagnosis: 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[ICD10: M05.742] Shannon Falk MD, [facility] CPT-4: 39941 03/24/2017 ([id number]) 01922 EST. P ATIENT, LEVEL IV Diagnosis: Atrophy of thyroid (acquired)[ICD10: E03.4] Diagnosis: Pleurisy[ICD10: R09.1] Diagnosis: Essential (primary) hypertension[ICD10: I10] Shannon Falk MD, [facility] CPT-4: 38066 08/30/2016 ([id number]) 40573 EST. P ATIENT, LEVEL III Diagnosis: Pleurisy[ICD10: R09.1] Elizabet Falk MD, [facility] CPT-4: 63390 08/08/2016 91738 EST. PATIENT, LEVEL III Diagnosis: Dysuria[ICD10: R30.0] Diagnosis: Other pruritus[ICD10: L29.8] Shila Fakl MD, [facility] CPT-4: 85667 06/27/2016 ([id number]) 33558 EST. P ATIENT, LEVEL III Diagnosis: Pain in left foot[ICD10: M79.672] Diagnosis: Pain in left toe(s)[ICD10: M79.675] Elizabet Falk MD, [facility] CPT-4: 47974 05/23/2016 53714 EST. PATIENT, LEVEL III Diagnosis: Candidiasis of vulva and vagina[ICD10: B37.3] Diagnosis: Dysuria[ICD10: R30.0] Shila Falk MD, [facility] CPT-4: 10252 04/18/2016 [id number] EST. PATIENT, LEVEL III Diagnosis: Other pruritus[ICD10: L29.8] Diagnosis: Candidiasis of vulva and vagina[ICD10: B37.3] Shila Falk MD, [facility] CPT-4: 12150 03/07/2016 ([id number]) [id number] EST. P ATIENT, LEVEL IV Diagnosis: Essential (primary) hypertension[ICD10: I10] Diagnosis: Pain in left hip[ICD10: M25.552] Diagnosis: Pain in right hip[ICD10: M25.551] Diagnosis: Functional diarrhea[ICD10: K59.1] Diagnosis: Atrophy of thyroid (acquired)[ICD10: E03.4] Shannon Falk MD, [facility] CPT-4: 08542 02/23/2016 ([id number]) 14004 EST. P ATIENT, LEVEL IV Diagnosis: Essential (primary) hypertension[ICD10: I10] Diagnosis: Mixed hyperlipidemia[ICD10: E78.2] Diagnosis: Major depressive disorder, single episode, unspecified[ICD10: F32.9] Shannon Falk MD, [facility] CPT-4: 07627 09/15/2015 [id number] EST. PATIENT, LEVEL III Diagnosis: Rash and other nonspecific skin eruption[ICD10: R21] Shila Falk MD, [facility] CPT-4: 92607 05/26/2015 ([id number]) 00992 EST. P ATIENT, LEVEL IV Diagnosis: Essential (primary) hypertension[ICD10: I10] Diagnosis: Foot drop, left foot[ICD10: M21.372] Diagnosis: Sacroiliitis, not elsewhere classified[ICD10: M46.1] Shannon Falk MD, C CPT-4: 60746 04/09/2015 ([id number]) 70368 EST. 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 P ATIENT, LEVEL III Diagnosis: Trochanteric bursitis, left hip[ICD10: M70.62] Diagnosis: Iliotibial band syndrome, left leg[ICD10: M76.32] Diagnosis: Sciatica, left side[ICD10: M54.32] Elizabet Falk MD, [facility] CPT-4: 55673 12/16/2014 ([id number]) 63048 EST. P ATIENT, LEVEL III Diagnosis: Sciatica, left side[ICD10: M54.32] Diagnosis: Sacroiliitis, not elsewhere classified[ICD10: M46.1] Elizabet Falk MD, [facility] CPT-4: 49506 12/09/2014 ([id number]) 92362 EST. 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 (15 min) Moderate 03/28/2018 Visit Plan: Hyponatremia - continue with current treatment - gatorade/powerade, monitor electrolytes. 03/27/2018 Appointment: Shannon Falk WPtel[facility] ([facility] min) Moderate 03/27/2018 Patient Education: Patient Medication Summary Completed 03/27/2018 Patient Education: Patient Medication Summary Completed 02/01/2018 [place] [phone] (15 min) Moderate 01/22/2018 Patient Education: [...] surrogate. 01/02/2018 Appointment: [facility]onal[phone] [phone] [facility] - Annual Wellness Visit 01/02/2018 [...] control. 12/26/2017 Appointment: Shannon Falk WPtel: [phone] [facility] (15 min) Moderate 12/26/2017 Patient Education: [...] Elizabet Donaldson WPtel: [phone] [phone] [place] (15 min) Moderate 10/17/2017 Patient Education: [...] home. 09/27/2017 Appointment: [phone] [facility] [place] (15 min) Moderate 09/27/2017 Patient Education: Patient Medication Summary Completed 09/27/2017 Care Plan: Referral Order SNOMED-CT : [id number] Pending 09/27/2017 Appointment: Shannon [facility]el[facility] [phone] [facility] [place] (15 min) Moderate 09/21/2017 Appointment: [...] daily. 03/24/2017 Appointment: Shannon [facility]el[facility] [phone] [facility] [place] (15 min) Moderate 03/24/2017 Patient Education: Patient Medication Summary Completed 03/24/2017 Appointment: Shannon Falk WPtel: [phone] [facility] (15 min) Moderate 03/16/2017 Appointment: Shannon Falk WPtel: [facility] (15 min) Moderate 03/01/2017 Visit Plan: [...] supportive care. 08/30/2016 Appointment: Shannon Falk WPtel: [facility] (15 min) Moderate 08/30/2016 Patient Education: [...] of plan. 08/08/2016 Appointment: Elizabet Donaldson WPtel: [address] [place] [address] (30 min) Complex 08/08/2016 Patient Education: Patient Medication Summary Completed 08/08/2016 Referral: Delia Bernstein WPtel: [address] [place], [place] [phone] Referral Initiated 08/01/2016 Visit Plan: Vaginal yeast [...] will refer. 06/27/2016 Appointment: Mikie Shila [facility] [phone] [facility] [place] (30 min) Complex 06/27/2016 Patient Education: Patient Medication Summary Completed 06/27/2016 Care Plan: Referral Order SNOMED-CT : [id number] Pending 06/27/2016 Visit Plan: Left foot, 1st and 2nd toe pain-suspect fracture of left great toe-will obtain xrays and proceed as indicated. Patient verbalized understanding of plan. 05/23/2016 Appointment: Elizabet Donaldson [facility]Ptel[facility] [phone] [phone] [place] (15 min) Moderate 05/23/2016 Patient Education: [...] probiotics 02/23/2016 Appointment: [facility]el[facility] [phone] [facility] [place] (15 min) Moderate 02/23/2016 Patient [...] Summary Completed 09/15/2015 Appointment: Shannon Falk WPtel: [address] [place], [place] [address] (15 min) Moderate 07/29/2015 Visit Plan: Rash [...] - vitamin B12 liquid 2000mcg daily - [facility] sells the liquid b12, folic acid - take daily. metanex 1 capsule twice daily - call office if this seems to help decrease nerve pain increase the night-time dosing of gabapentin to 300mg in AM, Noon, 6pm and 10pm 04/09/2015 Appointment: Shannon [facility]el[facility] [phone] [facility] (15 min) Moderate 04/09/2015 Patient Education: [...] in 2012. 03/10/2015 Appointment: Shannon [facility]el[facility] [phone] [facility] (15 min) Moderate 03/10/2015 Patient Education: Patient Medication Summary Completed 03/10/2015 Care Plan: SCREENINGMAMMOGRAPHYDIGITAL LOINC : 23694-2 Ordered 03/10/2015 Care Plan: Referral Order SNOMED-CT : [id number] Ordered 03/10/2015 Care Plan: Referral Order SNOMED-CT : [id number] Ordered 03/10/2015 Visit Plan: Left hip bursitis/Iliot [...] Medication Summary Completed 12/16/2014 Patient Education: .[employer] lliot ibial Band Rehabilitation exercises Completed 12/16/2014 Patient Education: .[employer] Exercise for Sc[place]i ca Completed 12/16/2014 Care Plan: Referral Order SNOMED-CT : [id number] Ordered 12/16/2014 Visit Plan: Sacroiliitis - back [...] Patient Medication Summary Completed 12/09/2014 Patient Education: .[employer] Exercise for Sc[place]i ca Completed 12/09/2014 Visit [...] brace. 11/13/2014 Appointment: Shannon Falk WPtel: [phone] [facility] [place] Follow up 11/13/2014 Patient Education: Patient [...] WORSENS. 07/10/2014 Appointment: Shannon [facility]el[facility] [phone] [facility] [place] ([place] New Patient 07/10/2014 Patient Education: Patient Medication Summary Completed 07/10/2014 Patient Education: Hypertension Completed 07/10/2014 Referral: Darci Spann Referral Relationship Referral: External, Ordering Provider Referral Appointment Requested Referral: External, Ordering Provider 09/28 Referral info faxed to [facility] 10/03 They tried calling her with an appt and she did not answer. Called patient and she will call them back. Appoint ment Requested Referral: External, Ordering Provider Referral Appointment Requested Referral: Delia Bernstein [facility]el[phone] [facility] [place] Referral Initiated Referral: External, Ordering Provider [...] in blood pressure readings at home. . Welcome to Medic[facility] e Exam - [...] vitamin B12 liquid 2 000mcg daily - [employer] sells the liquid b12 folic acid - [...] - vitamin B12 liquid 2000mcg daily - [employer] sells the liquid b12, folic acid - [...] continue with supportive care. Will give steroid sh ot today, will [...] allergy spray. ALIGN PROBIOTIC - TAKE DAILY ([employer] OR [employer] -TWO OTHER PROBIOTICS THAT ARE HIGH QUALITY) [...] stomach pain. ALIGN PROBIOTIC - TAKE DAILY ([employer] OR [facility] -TWO OTHER PROBIOTICS THAT ARE HIGH [...] repeat scope in 2012. XRAY LUMBAR SPINE AN D SI JOINT [...] [facility] - look up on facebook . [...]
--- OUTSIDE RECORDS SUMMARY | 2019-06-07 16:42 | XMS REPORT | CCD ---
Author Author Dalila Falk Organization Shannon Falk MD, [facility] Address [address] [place] [address] Phone Care Team Providers Care Television Parts Tester Name Role Phone PP Unavailable CCM Unavailable Summary Purpose Interface Exchange Insurance Providers Payer name Policy type / Coverage type Covered green party ID Effective Begin Date Effective End Date WPS Medicare Part B Medicare Part B [id number] Unknown [place] [employer] Insurance M edicare Part B [id number] Unkn own Family history Brother Diagnosis Age [...] Unknown 2 07/10/[address]: [id number] Has never smoked or chewed tobacco 07/10/2014 Alcohol history Unknown occasionally drinks alcohol 07/10/2014 Allergies, Adverse Reactions, Alerts Substance Reaction Codes Entered Date Inactivated Date Status Remicade hives RxNorm: 889080 03/24/2017 No Inactive Date Active * NO [...] Date Stop Date Sta tus Fill Instructions cefdinir 300 mg capsule RxNorm: 380928 1 Capsule(s) PO BID 04/17/2018 04/23/2018 Active cefdinir 300 mg capsule RxNorm: 022419 1 Capsule(s) PO BID 04/17/2018 04/16/2018 Inactive clobetasol 0.05 % to pical cream RxNorm: 999409 1 dime size amount Ap plication TOP daily as needed vaginal irritation 03/27/2018 07/24/2018 Active metoprolol succinate ER 25 mg tablet,extended release 24 hr RxNorm: 509893 1 Tablet(s) PO daily 03/27/2018 10/22/2018 Active Synthroid 75 mcg tablet RxNorm: 489410 Tablet(s) TAKE 1 TABLET BY MOUTH DAILY 02/07/2018 09/04/2018 Ac tive Generic For:*SYNTHROID 0.075MG TAB 11/14 9:16:33 AM N O T I C E Last quantity doesn't match original quantity hydrocodone 7.5 mg-a cetaminophen 325 mg tablet RxNorm: 544300 1-2 Tablet(s) PO Q4H as needed 10/12/2017 10/26/2017 Inactive Synthroid 75 mcg tablet RxNorm: 864068 Tablet(s) TAKE 1 TABLET BY MOUTH DAILY 08/09/2017 02/06/2018 In active Generic For:*SYNTHROID 0.075MG TAB 10/22 9:16:33 AM N O T I C E Last quantity doesn't match original quantity hydrocodone 7.5 mg-a cetaminophen 325 mg tablet RxNorm: 121847 1-2 Tablet(s) PO Q4H as needed 05/22/2017 06/20/2017 Inactive citalopram 20 mg tablet RxNorm: 066491 Tablet(s) TAKE ONE (1) TABLET BY MOUTH D AILY 05/09/2017 05/03/2018 Ac tive amlodipine 10 mg tablet RxNorm: 985028 1 Tablet(s) PO daily 1 Tablet(s) PO ashlie y 05/09/2017 09/26/2017 In active losartan 100 mg tablet RxNorm: 962685 1 Tablet(s) PO daily TAKE 1 TABLET BY MO UTH DAILY 05/09/2017 01/01/2018 Inactive Celebrex 200 mg capsule RxNorm: 732773 1 Capsule(s) PO BID 03/24/2017 03/18/2018 Inactive gabapentin 300 mg ca psule RxNorm: 116185 1 Capsule(s) PO daily 03/24/2017 No Stop Date Active Celebrex 200 mg capsule RxNorm: 370631 1 Capsule(s) PO BID 1 Capsule(s) PO ashlie y 03/24/2017 03/23/2017 In active amlodipine 10 mg tablet RxNorm: 416066 1 Tablet(s) PO daily 1 Tablet(s) PO ashlie y 03/24/2017 05/08/2017 In active Lipitor 40 mg tablet RxNorm: 500267 Tablet(s) TAKE ONE TABLET BY MOUTH AT [facility] 02/14/2017 09/26/2017 Inactive hydrocodone 7.5 mg-a cetaminophen 325 mg tablet RxNorm: 733321 1-2 Tablet(s) PO Q4H as needed 01/16/2017 02/14/2017 Inactive scopolamine 1.5 mg t ransdermal patch (1 mg over 3 days) RxNorm: 517364 1 Patch TD Q72H 11/25/2016 12/04/2016 Inactive scopolamine 1.5 mg t ransdermal patch (1 mg over 3 days) RxNorm: 086519 1 Patch TD Q72H 11/25/2016 11/24/2016 Inactive losartan 100 mg tablet RxNorm: 206934 1 Tablet(s) PO daily TAKE 1 TABLET BY MO [facility] DAILY 11/14/2016 05/08/2017 Inactive Generic For:COZAAR 100MG TA B 05/17/2016 8:31:51 AM Synthroid 75 mcg tablet RxNorm: 218722 TAKE 1 TABLET BY MOUTH DAILY 11/14/2016 06/11/2017 Inactive Generic For:*SYNTHROID 0.075MG TAB 10/22 9:16:33 AM N O T I C E Last quantity doesn't match original quantity citalopram 20 mg tablet RxNorm: 120497 TAKE ONE (1) TABLET BY MOUTH DAILY 11/14/2016 05/08/2017 In active Generic For:CELEXA 20MG TAB 11/14/2016 8:30:49 AM N O T I C E Last quantity doesn't match original quantity prednisone 10 mg tab lets in a dose pack RxNorm: 342864 1 Tablet(s) PO UD 09/30/2016 10/05/2016 In active 6-5-4-3-2-1 hydrocodone 7.5 mg-a cetaminophen 325 mg tablet RxNorm: 187297 1-2 Tablet(s) PO Q4H as needed 09/20/2016 01/15/2017 Inactive amlodipine 5 mg tablet RxNorm: 220448 TAKE ONE TABLET BY MOUTH EVERY DAY 08/15/2016 03/23/2017 In active Generic For:NORVASC 5 MG TABLET 017 3:56:26 PM N O T I C E Last quantity doesn't match original quantity Kenalog 40 mg/mL [place] pension for injection RxNorm: 9377473 1 Milliliter(s) Inj 08/08/2016 08/08/2016 In active prednisone 10 mg tab lets in a dose pack RxNorm: 265726 1 Tablet(s) PO UD 08/08/2016 08/07/2016 In active prednisone 10 mg tab lets in a dose pack RxNorm: 382984 1 Tablet(s) PO UD 08/08/2016 08/13/2016 In active 6-5-4-3-2-1 Diflucan 150 mg tablet RxNorm: 895069 1 Tablet(s) PO daily 06/27/2016 07/10/2016 Inactive Synthroid 75 mcg tablet RxNorm: 739479 TAKE 1 TABLET BY MOUTH DAILY 06/16/2016 11/13/2016 Inactive Generic For:*SYNTHROID 0.075MG TAB pt wo uld like a 90 day supply N O T I C E Last quantity doesn't match original quantity hydrocodone 7.5 mg-a cetaminophen 325 mg tablet RxNorm: 249138 1-2 Tablet(s) PO Q4H as needed 06/06/2016 09/19/2016 Inactive citalopram 20 mg tablet RxNorm: 795169 TAKE ONE (1) TABLET BY MOUTH DAILY 05/18/2016 11/13/2016 In active Generic For:CELEXA 20MG TAB 05/17/2016 8:32:02 AM Celebrex 200 mg capsule RxNorm: 913013 1 Capsule(s) PO daily 05/17/2016 03/23/2017 Inactive losartan 100 mg tablet RxNorm: 242668 TAKE 1 TABLET BY MOUTH DAILY 05/17/2016 11/12/2016 Inactive Generic For:COZAAR 100MG TAB 05/17/2016 8:31:51 AM amlodipine 5 mg tablet RxNorm: 162048 1 Tablet(s) PO daily 05/10/2016 08/14/2016 Inactive Cipro 500 mg tablet RxNorm: 238778 1 Tablet(s) PO BID 05/04/2016 05/03/2016 Inactive Cipro 500 mg tablet RxNorm: 998668 1 Tablet(s) PO BID 05/04/2016 05/13/2016 Inactive Diflucan 150 mg tablet RxNorm: 395901 1 Tablet(s) PO daily 04/18/2016 05/01/2016 Inactive Monistat Soothing Ca re 1.2 % topical gel RxNorm: 2394541 1 Application TOP BI D 03/07/2016 01/01/2018 In active Diflucan 150 mg tablet RxNorm: 777386 1 Tablet(s) PO daily 03/07/2016 03/13/2016 Inactive Lipitor 40 mg tablet RxNorm: 160391 Tablet(s) TAKE ONE TABLET BY MOUTH AT BE DTIME 02/23/2016 02/13/2017 Inactive citalopram 20 mg tablet RxNorm: 473852 TAKE ONE (1) TABLET BY MOUTH DAILY 02/18/2016 05/17/2016 In active Generic For:CELEXA 20MG TAB refill reque st losartan 100 mg tablet RxNorm: 881275 Tablet(s) 1 Tablet, 1 time per Day 02/09/2016 05/16/2016 In active INSURANCE WILL NOT COVER ADELA ANDREWS UNTIL OTHER FORMULARIES HAVE BEEN TRIED AND FAILED hydrocodone 7.5 mg-a cetaminophen 325 mg tablet RxNorm: 412077 1-2 Tablet(s) PO Q4H as needed 02/03/2016 06/05/2016 Inactive Synthroid 75 mcg tablet RxNorm: 777263 Tablet(s) TAKE 1 TABLET BY MOUTH DAILY 01/19/2016 06/15/2016 In active Generic For:*SYNTHROID 0.075MG TAB 04/2014 10:00:02 AM N O T I C E PRESCRIPTION PREVIOUSLY AUTHORIZED BY DOCTOR:SWATI BEY prednisone 10 mg tab lets in a dose pack RxNorm: 466481 1 Tablet(s) PO UD 01/07/2016 02/22/2016 In active 6-5-4-3-2-1 amlodipine 10 mg tablet RxNorm: 940380 1 Tablet(s) PO daily 12/07/2015 11/30/2016 Inactive citalopram 20 mg tablet RxNorm: 100076 TAKE ONE (1) TABLET BY MOUTH DAILY 11/17/2015 02/14/2016 In active Generic For:CELEXA 20MG TAB refill reque st hydrocodone 7.5 mg-a cetaminophen 325 mg tablet RxNorm: 455674 1-2 Tablet(s) PO Q4H as needed 10/08/2015 02/02/2016 Inactive losartan 100 mg tablet RxNorm: 418119 Tablet(s) 1 Tablet, 1 time per Day 2015 02/07/2016 In active INSURANCE WILL NOT COVER ADELA ANDREWS UNTIL OTHER FORMULARIES HAVE BEEN TRIED AND FAILED citalopram 20 mg tablet RxNorm: 915042 TAKE ONE (1) TABLET BY MOUTH DAILY 08/10/2015 11/07/2015 In active Generic For:CELEXA 20MG TAB 08/10/2015 8:59:58 AM Synthroid 75 mcg tablet RxNorm: 800483 Tablet(s) TAKE 1 TABLET BY MOUTH DAILY 05/26/2015 12/21/2015 In active Generic For:*SYNTHROID 0.075MG TAB 04/2014 10:00:02 AM N O T I C E PRESCRIPTION PREVIOUSLY AUTHORIZED BY DOCTOR:SWATI BEY prednisone 20 mg tablet RxNorm: 420700 2 Tablet(s) PO daily 05/26/2015 05/30/2015 Inactive Lipitor 40 mg tablet RxNorm: 955203 TAKE ONE TABLET BY MOUTH AT BEDTIME 05/14/2015 02/07/2016 In active Generic For:LIPITOR 40MG TAB 05/13/2015 8:26:33 AM N O T I C E PRESCRIPTION PREVIOUSLY AUTHORIZED BY DOCTOR:SWATI BEY hydrocodone 7.5 mg-a cetaminophen 325 mg tablet RxNorm: 344453 1-2 Tablet(s) PO Q4H as needed 05/11/2015 10/07/2015 Inactive Celebrex 200 mg capsule RxNorm: 935950 1 Capsule(s) PO daily 05/07/2015 04/30/2016 Inactive citalopram 20 mg tablet RxNorm: 230930 TAKE ONE (1) TABLET BY MOUTH DAILY 04/27/2015 07/25/2015 In active Generic For:CELEXA 20MG TAB 04/26/2015 7:30:08 PM gabapentin 300 mg ca psule RxNorm: 736980 1 Capsule(s) PO QID 04/09/2015 04/02/2016 Inactive citalopram 20 mg tablet RxNorm: 362730 TAKE ONE (1) TABLET BY MOUTH DAILY 01/26/2015 04/25/2015 In active Generic For:CELEXA 20MG TAB 01/26/2015 8:40:11 AM losartan 100 mg tablet RxNorm: 923915 1 Tablet, 1 time per Day 01/26/2015 03/29/2015 Inactive INSURANCE WILL NOT COVER ADELA ANDREWS UNTIL OTHER FORMULARIES HAVE BEEN TRIED AND FAILED hydrocodone 7.5 mg-a cetaminophen 325 mg tablet RxNorm: 544117 1-2 Tablet(s) PO Q4H as needed 01/23/2015 05/10/2015 Inactive Neurontin 100 mg cap almaz RxNorm: 130204 1 Capsule(s) PO TID 01/14/2015 03/09/2015 Inactive Neurontin 100 mg cap almaz RxNorm: 996489 1 Capsule(s) PO TID 01/14/2015 01/13/2015 Inactive Keflex 500 mg capsule RxNorm: 817545 1 Capsule(s) PO TID 01/06/2015 01/05/2015 Inactive Keflex 500 mg capsule RxNorm: 451232 1 Capsule(s) PO TID 01/06/2015 01/12/2015 Inactive hydrocodone 7.5 mg-a cetaminophen 325 mg tablet RxNorm: 825157 1-2 Tablet(s) PO Q4H as needed 12/29/2014 01/22/2015 Inactive Duexis 800 mg-26.6 m g tablet RxNorm: 8365856 1 Tablet(s) PO TID a s needed 12/19/2014 03/29/2015 In active Duexis 800 mg-26.6 m g tablet RxNorm: 0516550 1 Tablet(s) PO TID a s needed 12/19/2014 12/18/2014 In active Kenalog 40 mg/mL [place] pension for injection RxNorm: 4334981 1 Milliliter(s) Inj 12/09/2014 12/09/2014 In active prednisone 10 mg tab lets in a dose pack RxNorm: 392965 1 Tablet(s) PO UD 12/09/2014 12/14/2014 In active 6-5-4-3-2-1 amlodipine 10 mg tablet RxNorm: 849047 1 Tablet(s) PO daily 11/13/2014 11/07/2015 Inactive citalopram 20 mg tablet RxNorm: 415050 TAKE ONE (1) TABLET BY MOUTH DAILY 10/23/2014 01/20/2015 In active Generic For:CELEXA 20MG TAB 10/23/2014 4:32:02 PM N O T I C E PRESCRIPTION PREVIOUSLY AUTHORIZED BY DOCTOR:SWATI BEY hydrocodone 7.5 mg-a cetaminophen 325 mg tablet RxNorm: 931682 1-2 Tablet(s) PO Q4H as needed 10/22/2014 12/28/2014 Inactive Synthroid 75 mcg tablet RxNorm: 473802 TAKE 1 TABLET BY MOUTH DAILY 09/22/2014 04/19/2015 Inactive Generic For:*SYNTHROID 0.075MG TAB 04/2014 10:00:02 AM N O T I C E PRESCRIPTION PREVIOUSLY AUTHORIZED BY DOCTOR:SWATI BEY amlodipine 5 mg tablet RxNorm: 663001 1 Tablet(s) PO daily 08/25/2014 11/12/2014 Inactive Synthroid 75 mcg tablet RxNorm: 605781 1 Tablet(s) PO daily ecept a 1/2 tab on Monday07/11/2014 09/21/2014 Inactive Flonase Allergy Reli ef 50 mcg/actuation nasal spray,suspension RxNorm: 1 [place] NASAL BID 07/10/2014 12/06/2014 Inactive Benicar 20 mg tablet RxNorm: 616296 1 Tablet(s) PO daily No Start Date Active methotrexate sodium 2.5 mg tablet RxNorm: 176311 3 Tablet(s) PO weekly No Start Date 04/08/2015 Inactive Aldactone 25 mg tablet RxNorm: 839468 1 Tablet(s) PO daily No Start Date 03/26/2018 Inactive gabapentin 300 mg ca psule RxNorm: 337343 1 Capsule(s) PO TID No Start Date 04/08/2015 Inactive Plaquenil 200 mg tablet RxNorm: 511533 1 Tablet(s) PO BID No Start Date 05/22/2016 Inactive losartan 100 mg tablet RxNorm: 916738 1 Tablet(s) PO daily No Start Date 01/25/2015 Inactive Remicade intravenous RxNorm: 246760 intravenous No Start Date 03/23/2017 Inactive amlodipine 5 mg tablet RxNorm: 386844 1 Tablet(s) PO daily No Start Date 08/24/2014 Inactive Celebrex 200 mg capsule RxNorm: 565603 1 Capsule(s) PO daily No Start Date 10/16/2017 Inactive citalopram 20 mg tablet RxNorm: 650933 1 Tablet(s) PO daily No Start Date 10/22/2014 Inactive Synthroid 88 mcg tablet RxNorm: 005457 1 Tablet(s) PO daily No Start Date 07/09/2014 Inactive Arava 20 mg tablet RxNorm: 222348 1 Tablet(s) PO daily No Start Date 01/01/2018 Inactive Lipitor 40 mg tablet RxNorm: 852307 1 Tablet(s) PO daily No Start Date 05/13/2015 Inactive chlorthalidone 25 mg tablet RxNorm: 109859 1 Tablet(s) PO daily No Start Date 03/26/2018 Inactive Synthroid 75 mcg tablet RxNorm: 591275 1 Tablet(s) PO daily No Start Date 07/10/2014 Inactive hydrocodone 7.5 mg-a cetaminophen 325 mg tablet RxNorm: 747308 Tablet(s) PO as neede d No Start Date 10/21/2014 Inactive Medication Administered Medication Codes Instruc tions Start Date Status Kenalog 40 mg/mL suspension for injection RxNorm: 1967492 1Milliliter 08/08/2016 N o longer Active Kenalog 40 mg/mL suspension for injection RxNorm: 5791028 1Milliliter 12/09/2014 N o longer Active Immunizations [...] abnormal findings ICD-10: Z00.00 ICD-9: V70.0 01/02/2018 Essential (primary) hypertension ICD -10: I10 ICD-9: 401.9 12/26/2017 Pain in thoracic spine ICD-10: M54.6 ICD-9: 724.1 12/26/2017 Rheumatoid arthritis with rheumatoid fac 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 ICD-10: M05.741 ICD-9: 714.0 12/26/2017 Atrophy of thyroid (acquired) ICD-10 : E03.4 ICD-9: 244.8 12/26/2017 Rheumatoid arthritis with rheumatoid fac tor of left 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 organ or systems involvement ICD-10: M05.742 ICD-9: 714.0 12/26/2017 Otalgia, left ear ICD-10: H92.02 ICD-9: 388.70 10/17/2017 Pleurisy ICD-10: R09.1 ICD-9: 511.0 08/30/2016 Other pruritus ICD-10: L29.8 ICD-9: 698.1 06/27/2016 Dysuria ICD-10: R30.0 ICD-9: 788.1 06/27/2016 Pain in left toe(s) ICD-10: M79.675 ICD-9: 729.5 05/23/2016 Pain in left foot ICD-10: M79.672 ICD-9: 729.5 05/23/2016 Candidiasis of vulva and vagina ICD- 10: B37.3 ICD-9: 112.1 04/18/2016 Pain in right hip ICD-10: M25.551 ICD-9: 719.45 02/23/2016 Functional diarrhea ICD-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.1 ICD-9: 564.5 02/23/2016 Pain in left hip ICD-10: M25.552 ICD-9: 719.45 02/23/2016 Mixed hyperlipidemia ICD-10: E78.2 ICD-9: 272.4 09/15/2015 Major depressive disorder, single episode, unspecified ICD-10: F32.9 ICD-9: 311 09/15/2015 Rash and other nonspecific skin eruption ICD-10: R21 ICD-9: 782.1 05/26/2015 Sacroiliitis, not elsewhere classified ICD-10: M46.1 ICD-9: 720.2 04/09/2015 Foot drop, left foot ICD-10: M21.372 ICD-9: 736.79 04/09/2015 Other intervertebral disc degeneration, lumbar region ICD-10: M51.36 ICD-9: 722.52 03/10/2015 Family history of malignant neoplasm of digestive orga ns ICD- 10: Z80.0 ICD-9: V16.0 03/10/2015 Sciatica, left side ICD-10: M54.32 ICD-9: 724.3 03/10/2015 Trochanteric bursitis, left hip ICD- 10: M70.62 ICD-9: 726.5 12/16/2014 Iliotibial band syndrome, left leg I CD-10: M76.32 ICD-9: 728.89 12/16/2014 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 [...] 91.6 fl 12/26/2017 Cbc With Differential Ord2 MCH 31.1 pg 12/26/2017 Cbc With Differential Ord2 Titus% 9.2 % 12/26/2017 Cbc With Differential Ord2 Eos% 1.7 % 12/26/2017 Cbc With Differential Ord2 MCHC 34.0 pg 12/26/2017 Cbc With Differential Ord2 Baso% 0.5 % 12/26/2017 Cbc With Differential Ord2 PLT 302 K/ul 12/26/2017 Cbc With Differential Ord2 RDW 13.7 % 12/26/2017 Cbc With Differential Ord2 Neut ABS# 5.38 K/ul 12/26/2017 Cbc With Differential Ord2 Lymph ABS# 1.53 K/ul 12/26/2017 Cbc With Differential Ord2 Titus ABS# 0.7 K/ul 12/26/2017 Cbc With Differential Ord2 Eos ABS# 0.1 K/ul 12/26/2017 Cbc With Differential Ord2 Baso ABS# 0.0 K/ul 12/26/2017 Free T4 Wqb867 FREE T4 0.93 ng/dL 12/26/2017 Comp Metabolic Xiz918 NA 135 mEq/L 12/26/2017 Comp Metabolic Xec972 K 4.4 mEq/L 12/26/2017 Comp Metabolic Ebe036 CL 98 mEq/L 12/26/2017 Comp Metabolic Dir129 CO2 28.0 mEq/L 12/26/2017 Comp Metabolic Ovc719 AN ION GAP 13 12/26/2017 Comp Metabolic Pwl351 GL UCOSE 92 mg/dL 12/26/2017 Comp Metabolic Fjr596 Cr eat 1.1 mg/dL 12/26/2017 Comp Metabolic Wlj790 eG FR 52 ml/min/1.73m2 12/26 Comp Metabolic Dix157 BUN 25 mg/dL 12/26/2017 Comp Metabolic Gbv806 B/ C Ratio 22.7 Ratio 12/26/2017 Comp Metabolic Ifr246 CA LCIUM 9.8 mg/dL 12/26/2017 Comp Metabolic Gfj618 AL K PHOS 91 U/L 12/26/2017 Comp Metabolic Ttf461 T(SGOT) 16 U/L 12/26/2017 Comp Metabolic Vfd931 AL T(SGPT) 12 U/L 12/26/2017 Comp Metabolic Ksq731 BI LI T 0.5 mg/dL 12/26/2017 Comp Metabolic Bvk491 AL BUMIN 4.3 g/dL 12/26/2017 Comp Metabolic Ptr791 TP RO 6.8 g/dL 12/26/2017 Comp Metabolic Agg284 GL OB 2.5 g/dL 12/26/2017 Comp Metabolic Sqh692 A/ G Ratio 1.7 Ratio 12/26/2017 Comp Metabolic Yrp867 Os mo 274 mOsmo 12/26/2017 Urine Culture Ucult Comp lete NO Growth Day 2 06/29 Urine Culture Ucult Prel iminary NO Growth Day 1 06/29 Culture Urine [id number] URI NE CULTURE SEE NOTES 04/22/2016 Culture Urine [id number] Con tinued Results 04/22/2016 Urine Culture Ucult Comp lete >100,000 col/ml aerobic grow th sent to ref lab 04/20/2016 Comp Metabolic Pit793 NA 137 mEq/L 02/10/2016 Comp Metabolic Axv483 K 4.1 mEq/L 02/10/2016 Comp Metabolic Xqb165 CL 102 mEq/L 02/10/2016 Comp Metabolic Hez247 CO2 28.0 mEq/L 02/10/2016 Comp Metabolic Ajz914 AN ION GAP 11 02/10/2016 Comp Metabolic Nmb226 GL UCOSE 104 mg/dL 02/10/2016 Comp Metabolic Iqo623 Cr eat 0.7 mg/dL 02/10/2016 Comp Metabolic Vej910 eG FR 83 ml/min/1.73m2 02/09 Comp Metabolic Lzl843 BUN 14 mg/dL 02/10/2016 Comp Metabolic Avy641 B/ C Ratio 18.9 Ratio 02/10/2016 Comp Metabolic Zlh836 CA LCIUM 9.7 mg/dL 02/10/2016 Comp Metabolic Yay285 AL K PHOS 121 U/L 02/10/2016 Comp Metabolic Eix303 T(SGOT) 19 U/L 02/10/2016 Comp Metabolic Nhc481 AL T(SGPT) 13 U/L 02/10/2016 Comp Metabolic Jtp743 BI LI T 0.5 mg/dL 02/10/2016 Comp Metabolic Gmn396 AL BUMIN 4.3 g/dL 02/10/2016 Comp Metabolic Cnp288 TP RO 6.8 g/dL 02/10/2016 Comp Metabolic Ukh997 GL OB 2.5 g/dL 02/10/2016 Comp Metabolic Pwb953 A/ G Ratio 1.7 Ratio 02/10/2016 Comp Metabolic Kyk997 Os mo 275 mOsmo 02/10/2016 Lipid Ord30 CHOL 229 mg/dL 02/10/2016 Lipid Ord30 HDL 59.0 mg/dl 02/10/2016 Lipid Ord30 TRIG 252 mg/dL 02/10/2016 Lipid Ord30 LDL 120 mg/dL 02/10/2016 Lipid Ord30 C/HDL 3.9 Ratio 02/10/2016 Free T4 Gqs815 FREE T4 0.87 ng/dL 02/10/2016 Tsh Ord6 [...] 29.2 pg 02/10/2016 Cbc With Differential Ord2 Titus% 18.6 % 02/10/2016 Cbc With Differential Ord2 [...] 1.81 K/ul 02/10/2016 Cbc With Differential Ord2 Titus ABS# 1.1 K/ul 02/10/2016 Cbc With Differential Ord2 Eos ABS# 0.1 K/ul 02/10/2016 Cbc With Differential Ord2 Baso ABS# 0.1 K/ul 02/10/2016 Tsh Ord6 hTSH II 0.85 uIU/mL 04/02/2015 Lipid Ord30 CHOL 207 mg/dL 04/02/2015 Lipid Ord30 HDL 68.0 mg/dl 04/02/2015 Lipid Ord30 TRIG 193 mg/dL 04/02/2015 Lipid Ord30 LDL 100 mg/dL 04/02/2015 Lipid Ord30 C/HDL 3.0 Ratio 04/02/2015 Free T4 Rez363 FREE T4 1.09 ng/dL 04/02/2015 Free T4 Yui888 FREE T4 0.82 ng/dL 10/15/2014 Tsh Ord6 [...] 1: 142/84 Code: 8480-6 BMI: 31.2 Code: 68790-3 Heart Rate 1: 75 bpm Height: 5'4" SpO2: 97% Weight: 182 lbs 01/02/2018 Blood Pressure 1: 136/68 Code: 8480-6 BMI: 32.4 Code: 48842-3 Heart Rate 1: 80 bpm Height: 5'4" SpO2: 99% Waist Measure (cm): 104 cm Weight: 189 lbs 12/26/2017 Blood Pressure 1: 138/72 Code: 8480-6 BMI: 31.4 Code: 47463-7 Heart Rate 1: 72 bpm Height: 5'4" SpO2: 96% Weight: 183 lbs 10/17/2017 Blood Pressure 1: 156/72 Code: 8480-6 BMI: 31.4 Code: 02495-2 Heart Rate 1: 81 bpm Height: 5'4" SpO2: 98% Temperature: 36.5 (C ) / 97.7 (F) Weight: 183 lbs 09/27/2017 Blood Pressure 1: 140/82 Code: 8480-6 BMI: 32.1 Code: 45555-8 Heart Rate 1: 82 bpm Height: 5'4" SpO2: 98% Weight: 187 lbs 07/31/2017 Blood Pressure 1: 138/82 Code: 8480-6 Heart Rate 1: 87 bpm SpO2: 99% 03/24/2017 Blood Pressure 1: 146/86 Code: 8480-6 BMI: 31.8 Code: 64946-8 Heart Rate 1: 79 bpm Height: 5'4" SpO2: 96% Temperature: 36.4 (C ) / 97.5 (F) Weight: 185 lbs 08/30/2016 Blood Pressure 1: 142/88 Code: 8480-6 BMI: 31.6 Code: 35369-6 Heart Rate 1: 80 bpm Height: 5'4" SpO2: 93% Weight: 184 lbs 08/08/2016 Blood Pressure 1: 142/76 Code: 8480-6 BMI: 29.9 Code: 98989-9 Heart Rate 1: 80 bpm Height: 5'4" SpO2: 94% Weight: 174 lbs 06/27/2016 Blood Pressure 1: 156/72 Code: 8480-6 BMI: 30.6 Code: 23643-9 Heart Rate 1: 78 bpm Height: 5'4" SpO2: 95% Weight: 178 lbs 05/23/2016 Blood Pressure 1: 146/84 Code: 8480-6 Heart Rate 1: 66 bpm Height: 5'4" SpO2: 94% 04/18/2016 Blood Pressure 1: 148/84 Code: 8480-6 BMI: 30.2 Code: 78334-0 Heart Rate 1: 81 bpm Height: 5'4" SpO2: 97% Weight: 176 lbs 03/07/2016 Blood Pressure 1: 130/78 Code: 8480-6 BMI: 30.0 Code: 64637-1 Heart Rate 1: 85 bpm Height: 5'4" SpO2: 96% Weight: 175 lbs 02/23/2016 Blood Pressure 1: 140/78 Code: 8480-6 BMI: 29.7 Code: 45582-4 Heart Rate 1: 74 bpm Height: 5'4" SpO2: 95% Weight: 173 lbs 09/15/2015 Blood Pressure 1: 140/88 Code: 8480-6 BMI: 29.4 Code: 05588-6 Heart Rate 1: 81 bpm Height: 5'4" SpO2: 97% Weight: 171 lbs 8 oz 05/26/2015 Blood Pressure 1: 150/80 Code: 8480-6 BMI: 31.6 Code: 40224-1 Heart Rate 1: 70 bpm Height: 5'4" SpO2: 96% Weight: 184 lbs 04/09/2015 Blood Pressure 1: 136/74 Code: 8480-6 BMI: 31.4 Code: 25254-7 Heart Rate 1: 91 bpm Height: 5'4" SpO2: 94% Weight: 183 lbs 03/30/2015 Blood Pressure 1: 130/72 Code: 8480-6 BMI: 30.9 Code: 60206-7 Heart Rate 1: 80 bpm Height: 5'4" SpO2: 97% Waist Measure (cm): 102 cm Weight: 180 lbs 03/10/2015 Blood Pressure 1: 152/80 Code: 8480-6 BMI: 31.1 Code: 96117-0 Heart Rate 1: 66 bpm Height: 5'4" SpO2: 98% Weight: 181 lbs 12/16/2014 Blood Pressure 1: 132/88 Code: 8480-6 Blood Pressure 1: 132/88 Code: 8480-6 Heart Rate 1: 88 bpm SpO2: 98% Weight: 183 lbs 12/09/2014 Blood Pressure 1: 140/82 Code: 8480-6 BMI: 31.2 Code: 77379-7 Heart Rate 1: 105 bpm Height: 5'4" SpO2: 93% Weight: 182 lbs 11/13/2014 Blood Pressure 1: 148/88 Code: 8480-6 BMI: 31.8 Code: 39799-1 Heart Rate 1: 54 bpm Height: 5'4" SpO2: 98% Weight: 185 lbs 07/10/2014 Blood Pressure 1: 144/96 Code: 8480-6 BMI: 31.4 Code: 77115-7 Heart Rate 1: 99 bpm Height: 5'4" [...] frantz sary hypertension 09/27/2017 None hypothyroid 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 P ATIENT, LEVEL III Diagnosis: Hypo-osmolality and hyponatremia[ICD10: E87.1] Shannon Falk MD, C CPT-4: 48585 03/27/2018 [id number]) [id number] EST. 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 P ATIENT, LEVEL III Diagnosis: Otalgia, left ear[ICD10: H92.02] Diagnosis: Essential (primary) hypertension[ICD10: I10] Elizabet Falk MD, [facility] CPT-4: 85640 10/17/2017 [id number]) 90405 EST. 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 P ATIENT, LEVEL IV Diagnosis: Atrophy of thyroid (acquired)[ICD10: E03.4] Diagnosis: Pleurisy[ICD10: R09.1] Diagnosis: Essential (primary) hypertension[ICD10: I10] Shannon Falk MD, [facility] CPT-4: 28018 08/30/2016 ([id number]) 85382 EST. P ATIENT, LEVEL III Diagnosis: Pleurisy[ICD10: R09.1] Elizabet Falk MD, [facility] CPT-4: 05702 08/08/2016 25177 EST. PATIENT, LEVEL III Diagnosis: Dysuria[ICD10: R30.0] Diagnosis: Other pruritus[ICD10: L29.8] Shila Falk MD, [facility] CPT-4: 61458 06/27/2016 ([id number]) 62568 EST. P ATIENT, LEVEL III Diagnosis: Pain in left foot[ICD10: M79.672] Diagnosis: Pain in left toe(s)[ICD10: M79.675] Elizabet Falk MD, [facility] CPT-4: 86787 05/23/2016 72309 EST. PATIENT, LEVEL III Diagnosis: Candidiasis of vulva and vagina[ICD10: B37.3] Diagnosis: Dysuria[ICD10: R30.0] Shila Falk MD, [facility] CPT-4: 04375 04/18/2016 98137 EST. PATIENT, LEVEL III Diagnosis: Other pruritus[ICD10: L29.8] Diagnosis: Candidiasis of vulva and vagina[ICD10: B37.3] Shila Falk MD, [facility] CPT-4: 35421 03/07/2016 ([id number]) 82086 EST. P ATIENT, LEVEL IV Diagnosis: Essential (primary) hypertension[ICD10: I10] Diagnosis: Pain in left hip[ICD10: M25.552] Diagnosis: Pain in right hip[ICD10: M25.551] Diagnosis: Functional diarrhea[ICD10: K59.1] Diagnosis: Atrophy of thyroid (acquired)[ICD10: E03.4] Shannon Falk MD, C CPT-4: 98939 02/23/2016 ([id number]) 81650 EST. P ATIENT, LEVEL IV Diagnosis: Essential (primary) hypertension[ICD10: I10] Diagnosis: Mixed hyperlipidemia[ICD10: E78.2] Diagnosis: Major depressive disorder, single episode, unspecified[ICD10: F32.9] Shannon Falk MD, [facility] CPT-4: 86827 09/15/2015 13090 EST. PATIENT, LEVEL III Diagnosis: Rash and other nonspecific skin eruption[ICD10: R21] Shila Falk MD, [facility] CPT-4: 08461 05/26/2015 ([id number]) 06020 EST. P ATIENT, LEVEL IV Diagnosis: Essential (primary) hypertension[ICD10: I10] Diagnosis: Foot drop, left foot[ICD10: M21.372] Diagnosis: Sacroiliitis, not elsewhere classified[ICD10: M46.1] Shannon Falk MD, C CPT-4: 12846 04/09/2015 ([id number]) 06718 EST. 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 [facility]: Trochanteric bursitis, left hip[ICD10: M70.62] Diagnosis: Iliotibial band syndrome, left leg[ICD10: M76.32] Diagnosis: Sciatica, left side[ICD10: M54.32] Elizabet Falk MD, [facility] CPT-4: 72420 12/16/2014 ([id number]) 48752 EST. [facility] Diagnosis: Sciatica, left side[ICD10: M54.32] Diagnosis: Sacroiliitis, not elsewhere classified[ICD10: M46.1] Elizabet Falk MD, [facility] CPT-4: 93310 12/09/2014 ([id number]) 31436 EST. 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] Diagnosis: Carpal tunnel syndrome, unspecified upper limb[ICD10: G56.00] Shannon Falk MD, [facility] CPT-4: 83833 11/13/2014 ([id number]) [facility] LEV[facility] 4 Diagnosis: ESSENTIAL HYPERTENSION[ICD9: 401.9] Diagnosis: HYPERLIPIDEMIA[ICD9: 272.4] Diagnosis: DEPRESSIVE DISORDER NEC[ICD9: 311] Diagnosis: Diarrhea[ICD9: 787.91] Shannon Falk MD, [facility] CPT-4: 54809 07/10/2014 Plan of Care Planned Activity Notes C odes Status Date Appointment: Shannon Falk WPtel: [address] [place], [place] [id number] (15 min) Moderate 03/28/2018 Visit Plan: Hyponatremia - continue with current treatment - gatorade/powerade, monitor electrolytes. 03/27/2018 Appointment: Shannon Falk WPtel: [address] [place], [place] [address] (15 min) Moderate 03/27/2018 Patient Education: Patient Medication Summary Completed 03/27/2018 Patient Education: Patient Medication Summary Completed 02/01/2018 [facility]ment[phone] [facility] (15 min) Moderate 01/22/2018 Patient Education: [...] surrogate. 01/02/2018 Appointment: [facility] [phone] [phone] [facility] - Annual Wellness Visit 01/02/2018 Patient Education: [...] control. 12/26/2017 Appointment: [facility]el[facility] [phone] [facility] [place] (15 min) Moderate 12/26/2017 Patient [...] plan. 10/17/2017 Appointment: [facility]onal[facility] [phone] [phone] [place] (15 min) Moderate 10/17/2017 Patient [...] home. 09/27/2017 Appointment: [facility] [phone] [facility] [place] (15 min) Moderate 09/27/2017 Patient Education: Patient Medication Summary Completed 09/27/2017 Care Plan: Referral Order SNOMED-CT : [id number] Pending 09/27/2017 Appointment: [facility]el[facility] [phone] [facility] [place] (15 min) [...] daily. 03/24/2017 Appointment: Shannon Falk WPtel: [phone] [facility] (15 min) Moderate 03/24/2017 Patient Education: Patient Medication Summary Completed 03/24/2017 Appointment: [facility]el[facility] [phone] [facility] (15 min) Moderate 03/16/2017 Appointment: Shannon Falk WPtel: [phone] [facility] (15 min) Moderate 03/01/2017 Visit Plan: Hypertension - well con arpited [...] care. 08/30/2016 Appointment: Shannon Falk WPtel: [phone] [facility] (15 min) Moderate 08/30/2016 Patient Education: Patient [...] plan. 08/08/2016 Appointment: Elizabet Donaldson WPtel: [phone] [phone] (30 min) Complex 08/08/2016 Patient Education: Patient Medication Summary Completed 08/08/2016 Referral: Delia Bernstein WPtel: [phone] [place], [place] [phone] Referral Initiated 08/01/2016 Visit Plan: Vaginal yeast [...] refer. 06/27/2016 Appointment: Shila Deluna WPtel: [phone] [facility] (30 min) Complex 06/27/2016 Patient Education: Patient Medication Summary Completed 06/27/2016 Care Plan: Referral Order SNOMED-CT : [id number] Pending 06/27/2016 Visit Plan: Left foot, 1st and 2nd toe pain-suspect fracture of left great toe-will obtain xrays and proceed as indicated. Patient verbalized understanding of plan. 05/23/2016 Appointment: Elizabet Donaldson WPtel: [phone] (15 min) Moderate 05/23/2016 Patient Education: Patient [...] [facility] [place] (15 min) Moderate 02/23/2016 Patient Education: [...] Completed 09/15/2015 Appointment: Shannon Falk WPtel: [address] [place], [place] [address] (15 min) Moderate 07/29/2015 Visit Plan: Rash [...] - vitamin B12 liquid 2000mcg daily - [facility] sells the liquid b12, folic acid - take daily. metanex 1 capsule twice daily - call office if this seems to help decrease nerve pain increase the night-time dosing of gabapentin to 300mg in AM, Noon, 6pm and 10pm 04/09/2015 Appointment: Shannon Falk WPtel: [facility] (15 min) Moderate 04/09/2015 Patient Education: [...] 2012. 03/10/2015 Appointment: [facility]el[facility] [phone] [facility] (15 min) Moderate 03/10/2015 Patient Education: Patient Medication Summary Completed 03/10/2015 Care Plan: SCREENINGMAMMOGRAPHYDIGITAL LOINC : 96738-9 Ordered 03/10/2015 Care Plan: Referral Order SNOMED-CT : [id number] Ordered 03/10/2015 Care Plan: Referral Order SNOMED-CT : [id number] Ordered 03/10/2015 Visit Plan: Left hip bursitis/Iliot [...] 12/16/2014 Care Plan: Referral Order SNOMED-CT : [id number] Ordered 12/16/2014 Visit Plan: Sacroiliitis - back [...] Medication Summary Completed 12/09/2014 Patient Education: .[employer] DisplayLink Exercise for [place] Completed 12/09/2014 Visit [...] use carpal tunnel brace. 11/13/2014 Appointment: Shannon [facility] [phone] [facility] Follow up 11/13/2014 Patient Education: Patient Medication Summary Completed 11/13/2014 Patient Education: Hypertension Completed 11/13/2014 Visit Plan: Hypertension - maricruz sanchez - [...] stomach pain. ALIGN PROBIOTIC - TAKE DAILY ([employer] OR [employer] -TWO OTHER PROBIOTICS THAT ARE HIGH QUALITY) CIPROFLOXACIN TO BE TAKEN IF NEEDED IF THE DIARRHEA DOES NOT IMPROVE OR IF IT WORSENS. 07/10/2014 Appointment: Shannon Falk [facility]Ptel[facility] [phone] [facility] [place] ([place]) New Patient 07/10/2014 Patient Education: Patient Medication Summary Completed 07/10/2014 Patient Education: Hypertension Completed 07/10/2014 Referral: Darci Spann Referral Relationship Referral: External, Ordering Provider Referral Appointment Requested Referral: External, Ordering Provider 09/28 Referral info faxed to [facility] 10/03 They tried calling her with an appt and she did not answer. Called patient and she will call them back. Appoint ment Requested Referral: External, Ordering Provider Referral Appointment Requested Referral: Delia Bernstein WPtel: [address] [place], [place] [address] Referral Initiated Referral: External, Ordering Provider Referral Completed Instructions Comment [facility] - look up on [employer] . Hypertension - well controlled - elgin [...] allergy spray. ALIGN PROBIOTIC - TAKE DAILY ([employer] OR [employer] -TWO OTHER PROBIOTICS THAT ARE HIGH QUALITY) [...] stomach pain. ALIGN PROBIOTIC - TAKE DAILY ([employer] OR [employer] -TWO OTHER PROBIOTICS THAT ARE HIGH QUALITY) [...] with any concerns. dr. gely duncan - [facility] - [...] vitamin B12 liquid 2 000mcg daily - [facility] sells the liquid b12 folic acid [...] - vitamin B12 liquid 2000mcg daily - [facility] sells the liquid b12, folic acid [...]
--- OUTSIDE RECORDS SUMMARY | 2019-06-07 16:43 | XMS REPORT | CCD ---
Author Author Dalila Falk Organization [facility] Address [address] [place] [address] Phone Care Team Providers Care School Inspector Name Role Phone PP Unavailable CCM Unavailable Summary Purpose Interface Exchange Insurance Providers Payer name Policy type / Coverage type Covered constitution party ID Effective Begin Date Effective End Date WPS Medicare Part B Medicare Part B [id number] Unknown Polish [employer] Life Insurance M edicare Part B [id number] Unkn own Family history Brother Diagnosis Age [...] Unknown 2 07/10/[address]: 867007680 Has never smoked or chewed tobacco 07/10/2014 Alcohol history Unknown occasionally drinks alcohol 07/10/2014 Allergies, Adverse Reactions, Alerts Substance Reaction Codes Entered Date Inactivated Date Status Remicade hives RxNorm: 655903 03/24/2017 No Inactive Date Active * NO [...] Date Stop Date Sta tus Fill Instructions clobetasol 0.05 % to pical cream RxNorm: 624033 1 dime size amount Ap plication TOP daily as needed vaginal irritation 03/27/2018 07/24/2018 Active metoprolol succinate ER 25 mg tablet,extended release 24 hr RxNorm: 858093 1 Tablet(s) PO daily 03/27/2018 10/22/2018 Active Synthroid 75 mcg tablet RxNorm: 475715 Tablet(s) TAKE 1 TABLET BY MOUTH DAILY 02/07/2018 09/04/2018 Ac tive Generic For:*SYNTHROID 0.075MG TAB 11/14 9:16:33 AM N O T I C E Last quantity doesn't match original quantity hydrocodone 7.5 mg-a cetaminophen 325 mg tablet RxNorm: 726493 1-2 Tablet(s) PO Q4H as needed 10/12/2017 10/26/2017 Inactive Synthroid 75 mcg tablet RxNorm: 333454 Tablet(s) TAKE 1 TABLET BY MOUTH DAILY 08/09/2017 02/06/2018 In active Generic For:*SYNTHROID 0.075MG TAB 10/22 9:16:33 AM N O T I C E Last quantity doesn't match original quantity hydrocodone 7.5 mg-a cetaminophen 325 mg tablet RxNorm: 922728 1-2 Tablet(s) PO Q4H as needed 05/22/2017 06/20/2017 Inactive citalopram 20 mg tablet RxNorm: 183395 Tablet(s) TAKE ONE (1) TABLET BY MOUTH D AILY 05/09/2017 05/03/2018 Ac tive amlodipine 10 mg tablet RxNorm: 814873 1 Tablet(s) PO daily 1 Tablet(s) PO ashlie y 05/09/2017 09/26/2017 In active losartan 100 mg tablet RxNorm: 792555 1 Tablet(s) PO daily TAKE 1 TABLET BY MO UTH DAILY 05/09/2017 01/01/2018 Inactive Celebrex 200 mg capsule RxNorm: 139684 1 Capsule(s) PO BID 03/24/2017 03/18/2018 Inactive gabapentin 300 mg ca psule RxNorm: 369206 1 Capsule(s) PO daily 03/24/2017 No Stop Date Active Celebrex 200 mg capsule RxNorm: 366734 1 Capsule(s) PO BID 1 Capsule(s) PO ashlie y 03/24/2017 03/23/2017 In active amlodipine 10 mg tablet RxNorm: 065496 1 Tablet(s) PO daily 1 Tablet(s) PO ashlie y 03/24/2017 05/08/2017 In active Lipitor 40 mg tablet RxNorm: 299641 Tablet(s) TAKE ONE TABLET BY MOUTH AT BE DTIGA 02/14/2017 09/26/2017 Inactive hydrocodone 7.5 mg-a cetaminophen 325 mg tablet RxNorm: 515013 1-2 Tablet(s) PO Q4H as needed 01/16/2017 02/14/2017 Inactive scopolamine 1.5 mg t ransdermal patch (1 mg over 3 days) RxNorm: 174317 1 Patch TD Q72H 11/25/2016 12/04/2016 Inactive scopolamine 1.5 mg t ransdermal patch (1 mg over 3 days) RxNorm: 340769 1 Patch TD Q72H 11/25/2016 11/24/2016 Inactive losartan 100 mg tablet RxNorm: 036137 1 Tablet(s) PO daily TAKE 1 TABLET BY MO UTH DAILY 11/14/2016 05/08/2017 Inactive Generic For:COZAAR 100MG TA B 05/17/2016 8:31:51 AM Synthroid 75 mcg tablet RxNorm: 474062 TAKE 1 TABLET BY MOUTH DAILY 11/14/2016 06/11/2017 Inactive Generic For:*SYNTHROID 0.075MG TAB 10/22 9:16:33 AM N O T I C E Last quantity doesn't match original quantity citalopram 20 mg tablet RxNorm: 904443 TAKE ONE (1) TABLET BY MOUTH DAILY 11/14/2016 05/08/2017 In active Generic For:CELEXA 20MG TAB 11/14/2016 8:30:49 AM N O T I C E Last quantity doesn't match original quantity prednisone 10 mg tab lets in a dose pack RxNorm: 070807 1 Tablet(s) PO UD 09/30/2016 10/05/2016 In active 6-5-4-3-2-1 hydrocodone 7.5 mg-a cetaminophen 325 mg tablet RxNorm: 233828 1-2 Tablet(s) PO Q4H as needed 09/20/2016 01/15/2017 Inactive amlodipine 5 mg tablet RxNorm: 200015 TAKE ONE TABLET BY MOUTH EVERY DAY 08/15/2016 03/23/2017 In active Generic For:NORVASC 5 MG TABLET 017 3:56:26 PM N O T I C E Last quantity doesn't match original quantity Kenalog 40 mg/mL [place] pension for injection RxNorm: 2181336 1 Milliliter(s) Inj 08/08/2016 08/08/2016 In active prednisone 10 mg tab lets in a dose pack RxNorm: 034401 1 Tablet(s) PO UD 08/08/2016 08/07/2016 In active prednisone 10 mg tab lets in a dose pack RxNorm: 674828 1 Tablet(s) PO UD 08/08/2016 08/13/2016 In active 6-5-4-3-2-1 Diflucan 150 mg tablet RxNorm: 242205 1 Tablet(s) PO daily 06/27/2016 07/10/2016 Inactive Synthroid 75 mcg tablet RxNorm: 699569 TAKE 1 TABLET BY MOUTH DAILY 06/16/2016 11/13/2016 Inactive Generic For:*SYNTHROID 0.075MG TAB pt wo uld like a 90 day supply N O T I C E Last quantity doesn't match original quantity hydrocodone 7.5 mg-a cetaminophen 325 mg tablet RxNorm: 116121 1-2 Tablet(s) PO Q4H as needed 06/06/2016 09/19/2016 Inactive citalopram 20 mg tablet RxNorm: 168265 TAKE ONE (1) TABLET BY MOUTH DAILY 05/18/2016 11/13/2016 In active Generic For:CELEXA 20MG TAB 05/17/2016 8:32:02 AM Celebrex 200 mg capsule RxNorm: 684189 1 Capsule(s) PO daily 05/17/2016 03/23/2017 Inactive losartan 100 mg tablet RxNorm: 558711 TAKE 1 TABLET BY MOUTH DAILY 05/17/2016 11/12/2016 Inactive Generic For:COZAAR 100MG TAB 05/17/2016 8:31:51 AM amlodipine 5 mg tablet RxNorm: 548012 1 Tablet(s) PO daily 05/10/2016 08/14/2016 Inactive Cipro 500 mg tablet RxNorm: 179600 1 Tablet(s) PO BID 05/04/2016 05/03/2016 Inactive Cipro 500 mg tablet RxNorm: 415491 1 Tablet(s) PO BID 05/04/2016 05/13/2016 Inactive Diflucan 150 mg tablet RxNorm: 721170 1 Tablet(s) PO daily 04/18/2016 05/01/2016 Inactive Monistat Soothing Ca re 1.2 % topical gel RxNorm: 7668589 1 Application TOP BI D 03/07/2016 01/01/2018 In active Diflucan 150 mg tablet RxNorm: 687677 1 Tablet(s) PO daily 03/07/2016 03/13/2016 Inactive Lipitor 40 mg tablet RxNorm: 807850 Tablet(s) TAKE ONE TABLET BY MOUTH AT BE DTIGA 02/23/2016 02/13/2017 Inactive citalopram 20 mg tablet RxNorm: 302990 TAKE ONE (1) TABLET BY MOUTH DAILY 02/18/2016 05/17/2016 In active Generic For:CELEXA 20MG TAB refill reque st losartan 100 mg tablet RxNorm: 913690 Tablet(s) 1 Tablet, 1 time per Day 02/09/2016 05/16/2016 In active INSURANCE WILL NOT COVER ADELA ANDREWS UNTIL OTHER FORMULARIES HAVE BEEN TRIED AND FAILED hydrocodone 7.5 mg-a cetaminophen 325 mg tablet RxNorm: 983768 1-2 Tablet(s) PO Q4H as needed 02/03/2016 06/05/2016 Inactive Synthroid 75 mcg tablet RxNorm: 107782 Tablet(s) TAKE 1 TABLET BY MOUTH DAILY 01/19/2016 06/15/2016 In active Generic For:*SYNTHROID 0.075MG TAB 08/0 04/2014 10:00:02 AM N O T I C E PRESCRIPTION PREVIOUSLY AUTHORIZED BY DOCTOR:SWATI BEY prednisone 10 mg tab lets in a dose pack RxNorm: 157877 1 Tablet(s) PO UD 01/07/2016 02/22/2016 In active 6-5-4-3-2-1 amlodipine 10 mg tablet RxNorm: 841697 1 Tablet(s) PO daily 12/07/2015 11/30/2016 Inactive citalopram 20 mg tablet RxNorm: 024579 TAKE ONE (1) TABLET BY MOUTH DAILY 11/17/2015 02/14/2016 In active Generic For:CELEXA 20MG TAB refill reque st hydrocodone 7.5 mg-a cetaminophen 325 mg tablet RxNorm: 832421 1-2 Tablet(s) PO Q4H as needed 10/08/2015 02/02/2016 Inactive losartan 100 mg tablet RxNorm: 190370 Tablet(s) 1 Tablet, 1 time per Day 2015 02/07/2016 In active INSURANCE WILL NOT COVER A[place]LA ANDREWS UNTIL OTHER FORMULARIES HAVE BEEN TRIED AND FAILED citalopram 20 mg tablet RxNorm: 508733 TAKE ONE (1) TABLET BY MOUTH DAILY 08/10/2015 11/07/2015 In active Generic For:CELEXA 20MG TAB 08/10/2015 8:59:58 AM Synthroid 75 mcg tablet RxNorm: 182285 Tablet(s) TAKE 1 TABLET BY MOUTH DAILY 05/26/2015 12/21/2015 In active Generic For:*SYNTHROID 0.075MG TAB 04/2014 10:00:02 AM N O T I C E PRESCRIPTION PREVIOUSLY AUTHORIZED BY DOCTOR:SWATI BEY prednisone 20 mg tablet RxNorm: 386987 2 Tablet(s) PO daily 05/26/2015 05/30/2015 Inactive Lipitor 40 mg tablet RxNorm: 659513 TAKE ONE TABLET BY MOUTH AT BEDTIME 05/14/2015 02/07/2016 In active Generic For:LIPITOR 40MG TAB 05/13/2015 8:26:33 AM N O T I C E PRESCRIPTION PREVIOUSLY AUTHORIZED BY DOCTOR:SWATI BEY hydrocodone 7.5 mg-a cetaminophen 325 mg tablet RxNorm: 908820 1-2 Tablet(s) PO Q4H as needed 05/11/2015 10/07/2015 Inactive Celebrex 200 mg capsule RxNorm: 196230 1 Capsule(s) PO daily 05/07/2015 04/30/2016 Inactive citalopram 20 mg tablet RxNorm: 729799 TAKE ONE (1) TABLET BY MOUTH DAILY 04/27/2015 07/25/2015 In active Generic For:CELEXA 20MG TAB 04/26/2015 7:30:08 PM gabapentin 300 mg ca psule RxNorm: 840348 1 Capsule(s) PO QID 04/09/2015 04/02/2016 Inactive citalopram 20 mg tablet RxNorm: 622992 TAKE ONE (1) TABLET BY MOUTH DAILY 01/26/2015 04/25/2015 In active Generic For:CELEXA 20MG TAB 01/26/2015 8:40:11 AM losartan 100 mg tablet RxNorm: 236761 1 Tablet, 1 time per Day 01/26/2015 03/29/2015 Inactive INSURANCE WILL NOT COVER ADELA ANDREWS UNTIL OTHER FORMULARIES HAVE BEEN TRIED AND FAILED hydrocodone 7.5 mg-a cetaminophen 325 mg tablet RxNorm: 752359 1-2 Tablet(s) PO Q4H as needed 01/23/2015 05/10/2015 Inactive Neurontin 100 mg cap lamaz RxNorm: 036502 1 Capsule(s) PO TID 01/14/2015 03/09/2015 Inactive Neurontin 100 mg cap almaz RxNorm: 639828 1 Capsule(s) PO TID 01/14/2015 01/13/2015 Inactive Keflex 500 mg capsule RxNorm: 444543 1 Capsule(s) PO TID 01/06/2015 01/05/2015 Inactive Keflex 500 mg capsule RxNorm: 632707 1 Capsule(s) PO TID 01/06/2015 01/12/2015 Inactive hydrocodone 7.5 mg-a cetaminophen 325 mg tablet RxNorm: 201932 1-2 Tablet(s) PO Q4H as needed 12/29/2014 01/22/2015 Inactive Duexis 800 mg-26.6 m g tablet RxNorm: 7462005 1 Tablet(s) PO TID a s needed 12/19/2014 03/29/2015 In active Duexis 800 mg-26.6 m g tablet RxNorm: 4300232 1 Tablet(s) PO TID a s needed 12/19/2014 12/18/2014 In active Kenalog 40 mg/mL [place] pension for injection RxNorm: 4188887 1 Milliliter(s) Inj 12/09/2014 12/09/2014 In active prednisone 10 mg tab lets in a dose pack RxNorm: 555722 1 Tablet(s) PO UD 12/09/2014 12/14/2014 In active 6-5-4-3-2-1 amlodipine 10 mg tablet RxNorm: 691580 1 Tablet(s) PO daily 11/13/2014 11/07/2015 Inactive citalopram 20 mg tablet RxNorm: 347503 TAKE ONE (1) TABLET BY MOUTH DAILY 10/23/2014 01/20/2015 In active Generic For:CELEXA 20MG TAB 10/23/2014 4:32:02 PM N O T I C E PRESCRIPTION PREVIOUSLY AUTHORIZED BY DOCTOR:SWATI BEY hydrocodone 7.5 mg-a cetaminophen 325 mg tablet RxNorm: 937438 1-2 Tablet(s) PO Q4H as needed 10/22/2014 12/28/2014 Inactive Synthroid 75 mcg tablet RxNorm: 144373 TAKE 1 TABLET BY MOUTH DAILY 09/22/2014 04/19/2015 Inactive Generic For:*SYNTHROID 0.075MG TAB 04/2014 10:00:02 AM N O T I C E PRESCRIPTION PREVIOUSLY AUTHORIZED BY DOCTOR:SWATI BEY amlodipine 5 mg tablet RxNorm: 345922 1 Tablet(s) PO daily 08/25/2014 11/12/2014 Inactive Synthroid 75 mcg tablet RxNorm: 568462 1 Tablet(s) PO daily ecept a 1/2 tab on Monday07/11/2014 09/21/2014 Inactive Flonase Allergy Reli ef 50 mcg/actuation nasal spray,suspension RxNorm: 1 [place] NASAL BID 07/10/2014 12/06/2014 Inactive Benicar 20 mg tablet RxNorm: 043971 1 Tablet(s) PO daily No Start Date Active methotrexate sodium 2.5 mg tablet RxNorm: 782091 3 Tablet(s) PO weekly No Start Date 04/08/2015 Inactive Aldactone 25 mg tablet RxNorm: 224523 1 Tablet(s) PO daily No Start Date 03/26/2018 Inactive gabapentin 300 mg ca psule RxNorm: 270282 1 Capsule(s) PO TID No Start Date 04/08/2015 Inactive Plaquenil 200 mg tablet RxNorm: 461325 1 Tablet(s) PO BID No Start Date 05/22/2016 Inactive losartan 100 mg tablet RxNorm: 345951 1 Tablet(s) PO daily No Start Date 01/25/2015 Inactive Remicade intravenous RxNorm: 813431 intravenous No Start Date 03/23/2017 Inactive amlodipine 5 mg tablet RxNorm: 826034 1 Tablet(s) PO daily No Start Date 08/24/2014 Inactive Celebrex 200 mg capsule RxNorm: 421987 1 Capsule(s) PO daily No Start Date 10/16/2017 Inactive citalopram 20 mg tablet RxNorm: 692975 1 Tablet(s) PO daily No Start Date 10/22/2014 Inactive Synthroid 88 mcg tablet RxNorm: 935026 1 Tablet(s) PO daily No Start Date 07/09/2014 Inactive Arava 20 mg tablet RxNorm: 989078 1 Tablet(s) PO daily No Start Date 01/01/2018 Inactive Lipitor 40 mg tablet RxNorm: 169069 1 Tablet(s) PO daily No Start Date 05/13/2015 Inactive chlorthalidone 25 mg tablet RxNorm: 525620 1 Tablet(s) PO daily No Start Date 03/26/2018 Inactive Synthroid 75 mcg tablet RxNorm: 287905 1 Tablet(s) PO daily No Start Date 07/10/2014 Inactive hydrocodone 7.5 mg-a cetaminophen 325 mg tablet RxNorm: 173962 Tablet(s) PO as neede d No Start Date 10/21/2014 Inactive Medication Administered Medication Codes Instruc tions Start Date Status Kenalog 40 mg/mL suspension for injection RxNorm: 9375036 1Milliliter 08/08/2016 N o longer Active Kenalog 40 mg/mL suspension for injection RxNorm: 3736916 1Milliliter 12/09/2014 N o longer Active Immunizations No Immunization data Assessments Condition Codes Effectiv e Dates Hypo-osmolality [...] 31.1 pg 12/26/2017 Cbc With Differential Ord2 [place]% 9.2 % 12/26/2017 Cbc With Differential Ord2 [...] 1.53 K/ul 12/26/2017 Cbc With Differential Ord2 [place] ABS# 0.7 K/ul 12/26/2017 Cbc With Differential Ord2 Eos ABS# 0.1 K/ul 12/26/2017 Cbc With Differential Ord2 Baso ABS# 0.0 K/ul 12/26/2017 Free T4 Bkx030 FREE T4 0.93 ng/dL 12/26/2017 Comp Metabolic Odz097 NA 135 mEq/L 12/26/2017 Comp Metabolic Kud471 K 4.4 mEq/L 12/26/2017 Comp Metabolic Taf488 CL 98 mEq/L 12/26/2017 Comp Metabolic Pki390 CO2 28.0 mEq/L 12/26/2017 Comp Metabolic Ilt973 AN ION GAP 13 12/26/2017 Comp Metabolic Dcl389 GL UCOSE 92 mg/dL 12/26/2017 Comp Metabolic Yem771 Cr eat 1.1 mg/dL 12/26/2017 Comp Metabolic Ewf139 eG FR 52 ml/min/1.73m2 12/26 Comp Metabolic Iwl348 BUN 25 mg/dL 12/26/2017 Comp Metabolic Olc226 B/ C Ratio 22.7 Ratio 12/26/2017 Comp Metabolic Wmx316 CA LCIUM 9.8 mg/dL 12/26/2017 Comp Metabolic Oby427 AL K PHOS 91 U/L 12/26/2017 Comp Metabolic Fyi285 T(SGOT) 16 U/L 12/26/2017 Comp Metabolic Mmk778 AL T(SGPT) 12 U/L 12/26/2017 Comp Metabolic Omu247 BI LI T 0.5 mg/dL 12/26/2017 Comp Metabolic Hqd053 AL BUMIN 4.3 g/dL 12/26/2017 Comp Metabolic Wty906 TP RO 6.8 g/dL 12/26/2017 Comp Metabolic Zyt040 GL OB 2.5 g/dL 12/26/2017 Comp Metabolic Loi615 A/ G Ratio 1.7 Ratio 12/26/2017 Comp Metabolic Syq494 Os mo 274 mOsmo 12/26/2017 Urine Culture Ucult Comp lete NO Growth Day 2 06/29 Urine Culture Ucult Prel iminary NO Growth Day 1 06/29 Culture Urine [id number] URI NE CULTURE SEE NOTES 04/22/2016 Culture Urine [id number] Con tinued Results 04/22/2016 Urine Culture Ucult Comp lete >100,000 col/ml aerobic grow th sent to ref lab 04/20/2016 Comp Metabolic Vrl446 NA 137 mEq/L 02/10/2016 Comp Metabolic Ypo017 K 4.1 mEq/L 02/10/2016 Comp Metabolic Vhd577 CL 102 mEq/L 02/10/2016 Comp Metabolic Xtw313 CO2 28.0 mEq/L 02/10/2016 Comp Metabolic Ruj845 AN ION GAP 11 02/10/2016 Comp Metabolic Bap737 GL UCOSE 104 mg/dL 02/10/2016 Comp Metabolic Apz064 Cr eat 0.7 mg/dL 02/10/2016 Comp Metabolic Fge624 eG FR 83 ml/min/1.73m2 02/09 Comp Metabolic Hpd160 BUN 14 mg/dL 02/10/2016 Comp Metabolic Deq603 B/ C Ratio 18.9 Ratio 02/10/2016 Comp Metabolic Tua030 CA LCIUM 9.7 mg/dL 02/10/2016 Comp Metabolic Cba566 AL K PHOS 121 U/L 02/10/2016 Comp Metabolic Hrd647 T(SGOT) 19 U/L 02/10/2016 Comp Metabolic Vhl279 AL T(SGPT) 13 U/L 02/10/2016 Comp Metabolic Iho205 BI LI T 0.5 mg/dL 02/10/2016 Comp Metabolic Uom568 AL BUMIN 4.3 g/dL 02/10/2016 Comp Metabolic Not106 TP RO 6.8 g/dL 02/10/2016 Comp Metabolic Vcz325 GL OB 2.5 g/dL 02/10/2016 Comp Metabolic Nwe651 A/ G Ratio 1.7 Ratio 02/10/2016 Comp Metabolic Sxm319 Os mo 275 mOsmo 02/10/2016 Lipid Ord30 CHOL 229 mg/dL 02/10/2016 Lipid Ord30 HDL 59.0 mg/dl 02/10/2016 Lipid Ord30 TRIG 252 mg/dL 02/10/2016 Lipid Ord30 LDL 120 mg/dL 02/10/2016 Lipid Ord30 C/HDL 3.9 Ratio 02/10/2016 Free T4 Kxb105 FREE T4 0.87 ng/dL 02/10/2016 Tsh Ord6 [...] 29.2 pg 02/10/2016 Cbc With Differential Ord2 [place]% 18.6 % 02/10/2016 Cbc With Differential Ord2 [...] 1.81 K/ul 02/10/2016 Cbc With Differential Ord2 [place] ABS# 1.1 K/ul 02/10/2016 Cbc With Differential Ord2 Eos ABS# 0.1 K/ul 02/10/2016 Cbc With Differential Ord2 Baso ABS# 0.1 K/ul 02/10/2016 Tsh Ord6 hTSH II 0.85 uIU/mL 04/02/2015 Lipid Ord30 CHOL 207 mg/dL 04/02/2015 Lipid Ord30 HDL 68.0 mg/dl 04/02/2015 Lipid Ord30 TRIG 193 mg/dL 04/02/2015 Lipid Ord30 LDL 100 mg/dL 04/02/2015 Lipid Ord30 C/HDL 3.0 Ratio 04/02/2015 Free T4 Dvw382 FREE T4 1.09 ng/dL 04/02/2015 Free T4 Pdw188 FREE T4 0.82 ng/dL 10/15/2014 Tsh Ord6 [...] General 1995 Ears/Nose/Throat lips/teeth/gingiva Overall: benign lips 08/30/2016 None [...] 1: 142/84 Code: 8480-6 BMI: 31.2 Code: 42050-6 Heart Rate 1: 75 bpm Height: 5'4" SpO2: 97% Weight: 182 lbs 01/02/2018 Blood Pressure 1: 136/68 Code: 8480-6 BMI: 32.4 Code: 46572-9 Heart Rate 1: 80 bpm Height: 5'4" SpO2: 99% Waist Measure (cm): 104 cm Weight: 189 lbs 12/26/2017 Blood Pressure 1: 138/72 Code: 8480-6 BMI: 31.4 Code: 69907-5 Heart Rate 1: 72 bpm Height: 5'4" SpO2: 96% Weight: 183 lbs 10/17/2017 Blood Pressure 1: 156/72 Code: 8480-6 BMI: 31.4 Code: 64416-4 Heart Rate 1: 81 bpm Height: 5'4" SpO2: 98% Temperature: 36.5 (C ) / 97.7 (F) Weight: 183 lbs 09/27/2017 Blood Pressure 1: 140/82 Code: 8480-6 BMI: 32.1 Code: 33302-1 Heart Rate 1: 82 bpm Height: 5'4" SpO2: 98% Weight: 187 lbs 07/31/2017 Blood Pressure 1: 138/82 Code: 8480-6 Heart Rate 1: 87 bpm SpO2: 99% 03/24/2017 Blood Pressure 1: 146/86 Code: 8480-6 BMI: 31.8 Code: 14595-5 Heart Rate 1: 79 bpm Height: 5'4" SpO2: 96% Temperature: 36.4 (C ) / 97.5 (F) Weight: 185 lbs 08/30/2016 Blood Pressure 1: 142/88 Code: 8480-6 BMI: 31.6 Code: 84011-7 Heart Rate 1: 80 bpm Height: 5'4" SpO2: 93% Weight: 184 lbs 08/08/2016 Blood Pressure 1: 142/76 Code: 8480-6 BMI: 29.9 Code: 12303-1 Heart Rate 1: 80 bpm Height: 5'4" SpO2: 94% Weight: 174 lbs 06/27/2016 Blood Pressure 1: 156/72 Code: 8480-6 BMI: 30.6 Code: 37340-5 Heart Rate 1: 78 bpm Height: 5'4" SpO2: 95% Weight: 178 lbs 05/23/2016 Blood Pressure 1: 146/84 Code: 8480-6 Heart Rate 1: 66 bpm Height: 5'4" SpO2: 94% 04/18/2016 Blood Pressure 1: 148/84 Code: 8480-6 BMI: 30.2 Code: 46369-1 Heart Rate 1: 81 bpm Height: 5'4" SpO2: 97% Weight: 176 lbs 03/07/2016 Blood Pressure 1: 130/78 Code: 8480-6 BMI: 30.0 Code: 09287-3 Heart Rate 1: 85 bpm Height: 5'4" SpO2: 96% Weight: 175 lbs 02/23/2016 Blood Pressure 1: 140/78 Code: 8480-6 BMI: 29.7 Code: 45389-8 Heart Rate 1: 74 bpm Height: 5'4" SpO2: 95% Weight: 173 lbs 09/15/2015 Blood Pressure 1: 140/88 Code: 8480-6 BMI: 29.4 Code: 91793-7 Heart Rate 1: 81 bpm Height: 5'4" SpO2: 97% Weight: 171 lbs 8 oz 05/26/2015 Blood Pressure 1: 150/80 Code: 8480-6 BMI: 31.6 Code: 50268-1 Heart Rate 1: 70 bpm Height: 5'4" SpO2: 96% Weight: 184 lbs 04/09/2015 Blood Pressure 1: 136/74 Code: 8480-6 BMI: 31.4 Code: 63699-6 Heart Rate 1: 91 bpm Height: 5'4" SpO2: 94% Weight: 183 lbs 03/30/2015 Blood Pressure 1: 130/72 Code: 8480-6 BMI: 30.9 Code: 55475-6 Heart Rate 1: 80 bpm Height: 5'4" SpO2: 97% Waist Measure (cm): 102 cm Weight: 180 lbs 03/10/2015 Blood Pressure 1: 152/80 Code: 8480-6 BMI: 31.1 Code: 23390-4 Heart Rate 1: 66 bpm Height: 5'4" SpO2: 98% Weight: 181 lbs 12/16/2014 Blood Pressure 1: 132/88 Code: 8480-6 Blood Pressure 1: 132/88 Code: 8480-6 Heart Rate 1: 88 bpm SpO2: 98% Weight: 183 lbs 12/09/2014 Blood Pressure 1: 140/82 Code: 8480-6 BMI: 31.2 Code: 18961-8 Heart Rate 1: 105 bpm Height: 5'4" SpO2: 93% Weight: 182 lbs 11/13/2014 Blood Pressure 1: 148/88 Code: 8480-6 BMI: 31.8 Code: 26126-4 Heart Rate 1: 54 bpm Height: 5'4" SpO2: 98% Weight: 185 lbs 07/10/2014 Blood Pressure 1: 144/96 Code: 8480-6 BMI: 31.4 Code: 53128-8 Heart Rate 1: 99 bpm Height: 5'4" [...] frantz sary hypertension 09/27/2017 None 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 P ATIENT, LEVEL III Diagnosis: Hypo-osmolality and hyponatremia[ICD10: E87.1] Shannon [facility] MD, C CPT-4: 76493 03/27/2018 ([id number]) 65278 EST. 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 P ATIENT, LEVEL III Diagnosis: Otalgia, left ear[ICD10: H92.02] Diagnosis: Essential (primary) hypertension[ICD10: I10] Elizabet Falk MD, [facility] CPT-4: 56856 10/17/2017 ([id number]) 02680 EST. P ATIENT, LEVEL IV Diagnosis: 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[ICD10: M05.741] Diagnosis: 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[ICD10: M05.742] Diagnosis: Atrophy of thyroid (acquired)[ICD10: E03.4] Diagnosis: Essential (primary) hypertension[ICD10: I10] Shannon Falk MD, C CPT-4: 03426 09/27/2017 ([id number]) Miscellaneou s no charge Diagnosis: Essential (primary) hypertension[ICD10: I10] Elizabet Falk MD, [facility] CPT-4: 30392 07/31/2017 ([id number]) 33550 EST. 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 P ATIENT, LEVEL IV Diagnosis: Atrophy of thyroid (acquired)[ICD10: E03.4] Diagnosis: Pleurisy[ICD10: R09.1] Diagnosis: Essential (primary) hypertension[ICD10: I10] Shannon Falk MD, [facility] CPT-4: 98696 08/30/2016 ([id number]) 63355 EST. P ATIENT, LEVEL III Diagnosis: Pleurisy[ICD10: R09.1] Elizabet Falk MD, [facility] CPT-4: 60069 08/08/2016 82590 EST. PATIENT, LEVEL III Diagnosis: Dysuria[ICD10: R30.0] Diagnosis: Other pruritus[ICD10: L29.8] Shila Falk MD, [facility] CPT-4: 67692 06/27/2016 ([id number]) 88881 EST. P ATIENT, LEVEL III Diagnosis: Pain in left foot[ICD10: M79.672] Diagnosis: Pain in left toe(s)[ICD10: M79.675] Elizabet Falk MD, [facility] CPT-4: 18585 05/23/2016 94837 EST. PATIENT, LEVEL III Diagnosis: Candidiasis of vulva and vagina[ICD10: B37.3] Diagnosis: Dysuria[ICD10: R30.0] Shila Falk MD, [facility] CPT-4: 62520 04/18/2016 32541 EST. PATIENT, LEVEL III Diagnosis: Other pruritus[ICD10: L29.8] Diagnosis: Candidiasis of vulva and vagina[ICD10: B37.3] Shila Falk MD, [facility] CPT-4: 10628 03/07/2016 ([id number]) [id number] EST. P ATIENT, LEVEL IV Diagnosis: Essential (primary) hypertension[ICD10: I10] Diagnosis: Pain in left hip[ICD10: M25.552] Diagnosis: Pain in right hip[ICD10: M25.551] Diagnosis: Functional diarrhea[ICD10: K59.1] Diagnosis: Atrophy of thyroid (acquired)[ICD10: E03.4] Shannon Falk MD, [facility] CPT-4: 54918 02/23/2016 ([id number]) [id number] EST. P ATIENT, LEVEL IV Diagnosis: Essential (primary) hypertension[ICD10: I10] Diagnosis: Mixed hyperlipidemia[ICD10: E78.2] Diagnosis: Major depressive disorder, single episode, unspecified[ICD10: F32.9] Shannon Falk MD, [facility] CPT-4: 17264 09/15/2015 [id number] EST. PATIENT, LEVEL III Diagnosis: Rash and other nonspecific skin eruption[ICD10: R21] Shila Falk MD, [facility] CPT-4: 90257 05/26/2015 ([id number]) [id number] EST. P ATIENT, LEVEL IV Diagnosis: Essential (primary) hypertension[ICD10: I10] Diagnosis: Foot drop, left foot[ICD10: M21.372] Diagnosis: Sacroiliitis, not elsewhere classified[ICD10: M46.1] Shannon Falk MD, [facility] CPT-4: 06429 04/09/2015 ([id number]) [id number] EST. 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 P ATIENT, LEVEL III Diagnosis: Trochanteric bursitis, left hip[ICD10: M70.62] Diagnosis: Iliotibial band syndrome, left leg[ICD10: M76.32] Diagnosis: Sciatica, left side[ICD10: M54.32] Elizabet Falk MD, [facility] CPT-4: 74769 12/16/2014 ([id number]) 62196 EST. P ATIENT, LEVEL III Diagnosis: Sciatica, left side[ICD10: M54.32] Diagnosis: Sacroiliitis, not elsewhere classified[ICD10: M46.1] [facility] CPT-4: 57503 12/09/2014 ([id number]) 56824 EST. 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 03/27/2018 Appointment: Shannon Falk WPtel: [address] [place], [place] [phone] (15 min) Moderate 03/27/2018 Patient Education: Patient Medication Summary Completed 03/27/2018 Patient Education: Patient Medication Summary Completed 02/01/2018 Appointment: Shannon Falk WPtel: [address] [place], [place] [id number] (15 min) Moderate 01/22/2018 Patient Education: Patient [...] surrogate. 01/02/2018 Appointment: [facility] [phone] [phone] [facility] - Annual Wellness Visit 01/02/2018 Patient Education: [...] [facility] (15 min) Moderate 12/26/2017 Patient Education: Patient [...] of plan. 10/17/2017 Appointment: Elizabet Donaldson WPtel: [phone] (15 min) Moderate 10/17/2017 Patient Education: [...] at home. 09/27/2017 Appointment: Shannon Falk WPtel: [facility]5 [facility] (15 min) Moderate 09/27/2017 Patient Education: Patient Medication Summary Completed 09/27/2017 Care Plan: Referral Order SNOMED-CT : [id number] Pending 09/27/2017 Appointment: Shannon Falk WPtel: [facility]5 [facility] (15 min) Moderate 09/21/2017 Appointment: Nurse [...] twice daily. 03/24/2017 Appointment: Shannon Falk WPtel: [facility] (15 min) Moderate 03/24/2017 Patient Education: Patient Medication Summary Completed 03/24/2017 Appointment: Shannon Falk WPtel: [facility] (15 min) Moderate 03/16/2017 Appointment: Shannon Falk WPtel: [facility] (15 min) Moderate 03/01/2017 Visit Plan: Hypertension [...] care. 08/30/2016 Appointment: Shannon Falk WPtel: [address] [facility] (15 min) Moderate 08/30/2016 Patient Education: [...] of plan. 08/08/2016 Appointment: Elizabet Donaldson WPtel: [phone] (30 min) Complex 08/08/2016 Patient Education: Patient Medication Summary Completed 08/08/2016 Referral: Delia Bernstein WPtel: [address] [place], [place] [id number] Referral Initiated 08/01/2016 Visit Plan: Vaginal yeast [...] will refer. 06/27/2016 Appointment: Shila Deluna WPtel: [facility] (30 min) Complex 06/27/2016 Patient Education: Patient Medication Summary Completed 06/27/2016 Care Plan: Referral Order SNOMED-CT : [id number] Pending 06/27/2016 Visit Plan: Left foot, 1st and 2nd toe pain-suspect fracture of left great toe-will obtain xrays and proceed as indicated. Patient verbalized understanding of plan. 05/23/2016 Appointment: Elizabet Donaldson WPtel: [phone] [place] (15 min) Moderate 05/23/2016 Patient [...] start probiotics 02/23/2016 Appointment: Shannon Falk WPtel: [address] [place], [place] [address] [place] (15 min) Moderate 02/23/2016 Patient Education: [...] Summary Completed 09/15/2015 Appointment: Shannon Falk WPtel: [facility] (15 [...] - vitamin B12 liquid 2000mcg daily - [facility] sells the liquid b12, folic acid - take daily. metanex 1 capsule twice daily - call office if this seems to help decrease nerve pain increase the night-time dosing of gabapentin to 300mg in AM, Noon, 6pm and 10pm 04/09/2015 Appointment: Shannon Falk WPtel: [facility] ([facility] [...] in 2012. 03/10/2015 Appointment: Shannon Falk WPtel: [address] [place] [address] (15 min) Moderate 03/10/2015 Patient Education: Patient Medication Summary Completed 03/10/2015 Care Plan: SCREENINGMAMMOGRAPHYDIGITAL LOINC : 59727-5 Ordered 03/10/2015 Care Plan: Referral Order SNOMED-CT : [id number] Ordered 03/10/2015 Care Plan: Referral Order SNOMED-CT : [id number] Ordered 03/10/2015 Visit Plan: Left hip bursitis/Iliot [...] 12/16/2014 Care Plan: Referral Order SNOMED-CT : [id number] Ordered 12/16/2014 Visit Plan: Sacroiliitis - back [...] tunnel brace. 11/13/2014 Appointment: Shannon Falk WPtel: [address] [place], [place] [id number] Follow up 11/13/2014 Patient Education: Patient Medication [...] stomach pain. ALIGN PROBIOTIC - TAKE DAILY ([facility] OR [employer] -TWO OTHER PROBIOTICS THAT ARE HIGH QUALITY) CIPROFLOXACIN TO BE TAKEN IF NEEDED IF THE DIARRHEA DOES NOT IMPROVE OR IF IT WORSENS. 07/10/2014 Appointment: Shannon Falk WPtel: [address] [facility] [place] ([place]) New Patient 07/10/2014 Patient Education: Patient Medication Summary Completed 07/10/2014 Patient Education: Hypertension Completed 07/10/2014 Referral: Darci Spann Referral Relationship Referral: External, Ordering Provider Referral Appointment Requested Referral: External, Ordering Provider 09/28 Referral info faxed to [facility] 10/03 They tried calling her with an appt and she did not answer. Called patient and she will call them back. Appoint ment Requested Referral: External, Ordering Provider Referral Appointment Requested Referral: Delia Bernstein WPtel: [address] [place], [place] [phone] Referral Initiated Referral: External, Ordering Provider Referral Completed Instructions Comment luanne gonsalves e - look up on [employer] . Hypertension - well controlled - el[place] [...] is finished, refill the 10mg pill at [facility]. carpal tunnel brace . Hypertension - uncontrolled [...] allergy spray. ALIGN PROBIOTIC - TAKE DAILY ([facility] OR [employer] -TWO OTHER PROBIOTICS THAT ARE HIGH QUALITY) [...] ALIGN PROBIOTIC - TAKE DAILY ([facility] OR [employer] -TWO OTHER PROBIOTICS THAT ARE HIGH QUALITY) [...] worsen, or with any concerns. dr. gely walker - [facility] - hand specialist [...] Diarrhea - functional - start probiotics . Hyponatremia - con tinue with current [...] dose of citalopram at this time. . Welcome to [facility] - [...] and to maintain independece in the home. vitamin B12 liquid 2 000mcg daily - [facility] sells the liquid b12 folic acid [...] - vitamin B12 liquid 2000mcg daily - [facility] sells the liquid b12, folic acid [...] exercises . Left hip bursitis/Iliotibial band synd anllely- recommended use of anti- inflammatories and pt [...] do not improve or if they worsen. MONITOR BLOOD PRESSU RE AND PULSE -BRING [...] elevated. Patient verbalized understanding of plan. . Pleurisy-discussed natural and expected course of this diagnosis and to alert me if symptoms do not follow expected course, or if any worse. Kenalog injection today in the office-start prednisone tomorrow. Patient verbalized understanding of plan.
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
== END 2019-06-07 16:30 | disposition home or self-care (01) ==
LOC: EDUNIT# 15:57 → ER 15:58
DX: S91.311A Laceration without foreign body, right foot, initial encounter (principal); I10 Essential (primary) hypertension; E03.9 Hypothyroidism, unspecified; F32.9 Major depressive disorder, single episode, unspecified; Z96.651 Presence of right artificial knee joint; Z88.2 Allergy status to sulfonamides; Z88.8 Allergy status to other drugs, medicaments and biological substances; W26.8XXA Contact with other sharp object(s), not elsewhere classified, initial encounter
CPT/HCPCS: 12002

== ENCOUNTER 2019-06-19 09:03 | Emergency (ER) | payer MEDICARE, OTHER ==
[~2019-06-19] VITALS: Ht 157 cm; Wt 81.8 kg
[~2019-06-19 09:03] MED LIST changes: +CEPH-507 PO
[2019-06-19 09:05] VITALS: BP 146/89
--- OUTSIDE RECORDS SUMMARY | 2019-06-19 09:14 | XMS REPORT | Encounter Summary ---
Author Author [facility] Organization [facility] Address Unknown Phone Unavailable Care Team Providers Care Pet Training Instructor Name Role Phone Shannon Falk PCP Reason for Referral * Diagnostic Imaging (Routine) Referred By Contact Referred To Contact Status Reason Specialty Diagnoses / Procedures Carey Holt APRN [address] [place] [address] Sln Cv Nuc Med [address] [place] [address] Authorized Cardiology Diagnoses [place] coronary artery calcium score greater than 400 P rocedures CV MPI PET Encounter Details Care Team Description Date Type Department Carey Holt APRN [address] [place] [address] [phone] [place] coronary artery calcium score g reater than 400 (Primary Dx) 04/03/2019 Orders Only [facility] [address] [place] [address] Social History Date Tobacco Use Types Packs/Day [...] Treatment Care Team Description Date Type Specialty Vikas Ross MD [address] [facility] [address] [place] [address] [phone] 07/03/2019 Video Visit Cardiology Mayank Novoa DO [address] [facility] [address] [place] [address] [phone] 08/06/2019 Appointment Pain Medicine Order Schedule Name Type Priority Associated Diag noses Expected: 04/17/2019, Expires: 1 CV MPI PET Cardiac Routine [place] [facility] calcium score greater than 400 documented as of this encounter Visit Diagnoses Diagnosis [place] coronary artery calcium score greater than 400 documented in this encounter
--- OUTSIDE RECORDS SUMMARY | 2019-06-19 09:14 | XMS REPORT | Encounter Summary ---
Author Author [facility] Organization [facility] Address Unknown Phone Unavailable Care Team Providers Care Finance And Administration Manager Name Role Phone Shannon Falk PCP Reason for Referral * Diagnostic Imaging (Routine) Referred By Contact Referred To Contact Status Reason Specialty Diagnoses / Procedures Pamela Navarro APRN [address] [facility] [address] [place] [address] [facility] Us 4320 [facility], [address] [address] Closed Radiology Diagnoses Varicose veins of left lower extremity with pain P rocedures US Guided Endovenous Laser Ablation Reason for Visit * Reason Comments Leg pain Leg Swelling Leg Fatigue/Tiredness Leg Cramping Leg Restlessness Encounter Details Care Team Description Date Type Department Pamela Navarro APRN 4330 [facility] [address] [place] [address] [phone] Varicose veins of left lower extremity w ith pain (Primary Dx) [facility] 4320 [facility], [address] [id number] Social History Date Tobacco Use Types Packs/Day [...] Vital Sign 161/86 04/15/2019 11:05 AM DIRECTOR OF CURRICULUM Blood Pressure 60 04/15/2019 11:05 AM DIRECTOR OF CURRICULUM Pulse - - Temperature - - Respiratory [...] Navarro APRN - 04/15/2019 11:00 AM DIRECTOR OF CURRICULUM [facility] Appointment Date: 04/15/2019 Shannon Falk MD 2711 [facility] [address] RE: Dalila Hameed : 1950 Visit provider: Pamela Navarro RN, [facility]- Dear Shannon Falk MD, I had the [...] RADICULAR PAIN RA (rheumatoid arthritis) ([facility]LY [facility]) RHEUMATOID ARTHRITIS Neuropathy NEUROPATHY Hypothyroidism HYPOTHYROIDISM Essential [...] HANDS, HIPS RA (rheumatoid arthritis) ([facility]ERLY [facility]) APPROX 10 YRS Radicular leg pain 05/25/2015 Rheumatoid arthritis of spine ([facility]ERLY [facility]) CERVICAL SPINE; HAS FULL ROM WITH NECK Sciatica DOWN LEFT LEG Urinary incontinence STRESS INCONTINENCE Past Surgical History: Procedure Laterality Date BUNIONECTOMY Right FRACTURE SURGERY Left CLAVICAL FX FUSION, SPINE, LUMBAR, INTERBODY, TRANSFORAMINAL APPROACH Left 07/28/2015 Procedure: L4-L5 FUSION TRANSFORAMINAL LUMBAR INTERBODY SPINE; Surgeon: Yue Abdi MD; Location: [facility] OR; Service: Neurosurgery; Laterality: Le ft; HYSTERECTOMY [...] medications for this encounter. Allergies Allergen Reactions Jyxvtfl-Bnt-Bsr Reductase Inhibitors Myalgia Sulfa (Sulfonamide Antibiotics) Hives [...] to contact me. Sincerely, Pamela Navarro RN, CHIEF GAUGER-BC CTOR OF CURRICULUM documented in this encounter Plan of Treatment Care Team Description Date Type Specialty Vikas Ross MD [address] [facility] [address] [place] [address] [phone] 07/03/2019 Video Visit Cardiology Mayank Novoa DO [facility] [address] [address] [phone] 08/06/2019 Appointment Pain Medicine documented as of this encounter Results * US Guided Endovenous Laser Ablation (04/30/2019 9:27 AM CDT) CRITICAL REPORT NMDB PACS Specimen Performing Organization Address City/State/Zipcode Ph one Number NMDB PACS documented in this encounter Visit Diagnoses Diagnosis Varicose veins of left lower extremity with pain documented in this encounter
--- OUTSIDE RECORDS SUMMARY | 2019-06-19 09:14 | XMS REPORT | Encounter Summary ---
Author Author [facility] Organization [facility] Address Unknown Phone Unavailable Care Team Providers Care Chemical Sales Representative Name Role Phone Deya Shannon PCP Reason for Visit * Reason Comments Cardiology test results cardioscan Encounter Details Care Team Description Date Type Department Ina Rubio RN Cardiology test results (cardioscan) 04/03/2019 Telephone [facility] [address] [facility] [address] [place] [address] Social History Date Tobacco Use Types Packs/Day [...] Juana Torres RN - 04/08/2019 10:25 AM COMPUTERIZED MILL RECORDER Called pt, left detailed message on machine with [place] recommendations. Explained lab may be drawn at any [facility] lab, the order is in the system. N o appointment is necessary. 12 hour fasting required. Please call for various locations and hours. [place] location: [facility] I, [address] 140, which is down on the 1st floor. UTERIZED MILL RECORDER * Telephone Encounter - Carey Holt APRN - 04/03/2019 3:29 PM COMPUTERIZED MILL RECORDER That's great she is on Repatha. Please place a fasting lipid panel to be drawn i n 2 weeks. No, does not need an appointment with me. OV with JBL should be suffi cient. If her stress test shows any abnormalities then we can discuss a closer O V. Thanks UTERIZED MILL RECORDER * Telephone Encounter - Ina Rubio RN - 04/03/2019 1:27 PM COMPUTERIZED MILL RECORDER Called pt to discuss CACS result (score >1000), and advise her that we've ordered PET. Pt v/u. Also discussed importance of preventive lifestyle measures. She has switched to repatha Feb. She has OV arvind w/JBL 06/21/19 LINDSAY - does she need f/u appt w/you sooner? Does she need FLP at 3 mo after initi ation of repatha? Letter to PCP UTERIZED MILL RECORDER * Telephone Encounter - Ina Rubio RN - 04/03/2019 1:18 PM COMPUTERIZED MILL RECORDER ----- Message from Carey Holt APRN sent at 04/03/2019 12:54 PM COMPUTERIZED MILL RECORDER ----- Significant Coronary Calcium with a very high score >1,000. Recommend obtaining a nuclear PET study to r/o coronary ischemia. Please notify patient and I will order MPI PET. UTERIZED MILL RECORDER documented in this encounter Plan of Treatment Care Team Description Date Type Specialty Vikas Ross MD [address]44 [facility] [address] [place] [address] [phone] 07/03/2019 Video Visit Cardiology Mayank Novoa DO 4321 [facility] [address] [place] [address] [phone] 08/06/2019 Appointment Pain Medicine documented as of this encounter Visit Diagnoses Not on filedocumented in this encounter
--- OUTSIDE RECORDS SUMMARY | 2019-06-19 09:14 | XMS REPORT | Encounter Summary ---
Author Author [facility] Organization [facility] Address Unknown Phone Unavailable Care Team Providers Care Passenger Service Agent Name Role Phone Deya Shannon PCP Encounter Details Care Team Description Date Type Department Vikas Ross MD [address] [place] [address] [phone] Specialty Pharmacy Refill Coordination 03/14/2019 Specialty [facility] [address] [place] [address] Social History Date Tobacco Use Types Packs/Day [...] * Gertrude Mercado - 03/14/2019 11:11 AM ARCHIVIST ECONOMIC HISTORY Patient contacted [facility] on 03/14/19 regarding refill. Patient stated insurance wi ll no longer cover Praluent. Patient has been switched to Repatha. Patient state d she will be filling this with her local pharmacy. Patient will be un enrolled from [facility] services at this time. IVIST ECONOMIC HISTORY documented in this encounter Plan of Treatment Care Team Description Date Type Specialty Vikas Ross MD [address] [place] [address] [phone] 07/03/2019 Video Visit Cardiology Mayank Novoa, [facility] [address] [address] [phone] 08/06/2019 Appointment Pain Medicine documented as of this encounter Visit Diagnoses Not on filedocumented in this encounter
--- OUTSIDE RECORDS SUMMARY | 2019-06-19 09:14 | XMS REPORT | Encounter Summary ---
Author Author [facility] Organization [facility] Address Unknown Phone Unavailable Care Team Providers Care Candle Molder Name Role Phone Shannon Falk PCP Encounter Details Care Team Description Date Type Department Vikas Ross MD 5844 [facility] [address] [place] [address] [phone] Specialty Pharmacy Refill Coordination 01/31/[address] [facility] [address] [place] [address] Social History Date Tobacco Use Types Packs/Day [...] * Blossom Calderon - 01/31/2019 1:26 PM SUPERVISOR SEWING DEPARTMENT Specialty Pharmacy Refill Coordination Note Dalila Hameed [...] CC Follow-up: 28 day(s) Blossom Calderon Specialty Wholesale Agronomist RVISOR SEWING DEPARTMENT documented in this encounter Plan of Treatment Care Team Description Date Type Specialty Vikas Ross MD 5844 [facility] [address] [place] [address] [phone] 07/03/2019 Video Visit Cardiology May[facility] DO [facility] [address] [place] [address] [phone] 08/06/2019 Appointment Pain Medicine documented as of this encounter Visit Diagnoses Not on filedocumented in this encounter
--- OUTSIDE RECORDS SUMMARY | 2019-06-19 09:14 | XMS REPORT | Encounter Summary ---
Author Author [facility] Organization [facility] Address Unknown Phone Unavailable Care Team Providers Care Foil Cutter Name Role Phone Shannon Falk PCP Encounter Details Care Team Description Date Type Department Carey Holt ANESTHESIOLOGY TEACHER 4330 [facility], [facility] [address] [place] [address] [phone] 05/24/2019 [facility] [address] [place] [address] Social History Date Tobacco Use Types Packs/Day [...] Type Specialty Vikas Ross MD [address] [facility] [address] [place] [address] [phone] 07/03/2019 Video Visit Cardiology Mayank Novoa, DO 4321 [facility] [address] [place] [address] [phone] 08/06/2019 Appointment Pain Medicine documented as of this encounter Visit Diagnoses Not on filedocumented in this encounter
--- OUTSIDE RECORDS SUMMARY | 2019-06-19 09:14 | XMS REPORT | Encounter Summary ---
Author Author [facility] Organization [facility] Address Unknown Phone Unavailable Care Team Providers Care Coagulating Drying Supervisor Name Role Phone Shannon Falk PCP Reason for Visit * Reason Comments Medication Refill Encounter Details Care Team Description Date Type Department Vikas Ross MD 5844 [facility] [address] [place] [address] [phone] Medication Refill 03/11/2019 Refill [facility] 5844 [facility] [address] [place] [address] Social History Date Tobacco Use Types Packs/Day [...] Maddy Hameed RN - 03/11/2019 3:27 PM VEGETABLE VENDOR Pt has been switched from Praluent to Repatha. Prescription refill request for P raluent denied TABLE VENDOR documented in this encounter Plan of Treatment Care Team Description Date Type Specialty Vikas Ross MD [address]44 [facility] [address] [place] [address] [phone] 07/03/2019 Video Visit Cardiology Mayank Novoa DO [facility] [address] [address] [phone] 08/06/2019 Appointment Pain Medicine documented as of this encounter Visit Diagnoses Not on filedocumented in this encounter
--- OUTSIDE RECORDS SUMMARY | 2019-06-19 09:14 | XMS REPORT | Encounter Summary ---
Author Author [facility] Organization [facility] Address Unknown Phone Unavailable Care Team Providers Care Enrichment Specialist Name Role Phone Shannon Falk PCP Reason for Visit * Reason Comments Medication Refill Encounter Details Care Team Description Date Type Department Mo Jones RN Medication Refill 04/05/2019 Refill [facility] [address] [place] [address] [address] [facility] [address] [place] [address] Social History Date Tobacco Use Types Packs/Day [...] Mo Jones RN - 04/05/2019 7:42 AM CAREER CONSULTANT Pt called said Gabapentin script never was completed. Script has now been sent. ER CONSULTANT documented in this encounter Plan of Treatment Care Team Description Date Type Specialty Vikas Ross MD 5844 [facility] 230 [place] [address] [phone] 07/03/2019 Video Visit Cardiology Mayank Novoa, DO 4321 [facility] [address] [place] [address] [phone] 08/06/2019 Appointment Pain Medicine documented as of this encounter Visit Diagnoses Diagnosis Spondylosis of thoracic region without myelopathy or radiculopathy documented in this encounter
--- OUTSIDE RECORDS SUMMARY | 2019-06-19 09:14 | XMS REPORT | Encounter Summary ---
Author Author [facility] Organization [facility] Address Unknown Phone Unavailable Care Team Providers Care Materials Planner Name Role Phone Reynaldo Falky PCP Encounter Details Care Team Description Date Type Department Vikas Ross MD 5844 [facility] 230 [place] [address] [phone] 02/14/2019 Documentation [facility] [address] [facility] [address] [place] [address] Social History Date Tobacco Use Types Packs/Day [...] Date Type Specialty Vikas Ross MD 5844 [facility] 230 [place] [address] [phone] 07/03/2019 Video Visit Cardiology Mayank Novoa DO 4321 [facility] 1200 [place] [address] [phone] 08/06/2019 Appointment Pain Medicine documented as of this encounter Visit Diagnoses Not on filedocumented in this encounter
--- OUTSIDE RECORDS SUMMARY | 2019-06-19 09:14 | XMS REPORT | Encounter Summary ---
Author Author [facility] Organization [facility] Address Unknown Phone Unavailable Care Team Providers Care Roller Die Cutting Machine Operator Name Role Phone Reynaldo Falky PCP Encounter Details Care Team Description Date Type Department Vikas Ross MD 5844 [facility] [address] [place] [address] [phone] 02/25/2019 Documentation [facility] 5844 [facility] [address] [place] [address] Social History Date Tobacco Use Types Packs/Day [...] Date Type Specialty Vikas Ross MD 5844 [facility] [address] [place] [address] [phone] 07/03/2019 Video Visit Cardiology Mayank Novoa DO 4321 [facility] [place] [address] [place] [address] [phone] 08/06/2019 Appointment Pain Medicine documented as of this encounter Visit Diagnoses Not on filedocumented in this encounter
--- OUTSIDE RECORDS SUMMARY | 2019-06-19 09:14 | XMS REPORT | Encounter Summary ---
Author Author [facility] Organization [facility] Address Unknown Phone Unavailable Care Team Providers Care Ruffler Name Role Phone Shannon Falk PCP Encounter Details Care Team Description Date Type Department Chante Farrar, FUR CUTTER [address] [facility] [address] [place] [address] [phone] [facility]2019 [facility] [address] [facility] [address] [place] [address] Social History Date Tobacco Use Types Packs/Day [...] Date Type Specialty Vikas Ross MD 5844 [facility] 230 [place] [address] [phone] 07/03/2019 Video Visit Cardiology Mayank Novoa DO 4321 [facility] [address] [place] [address] [phone] 08/06/2019 Appointment Pain Medicine documented as of this encounter Visit Diagnoses Not on filedocumented in this encounter
--- OUTSIDE RECORDS SUMMARY | 2019-06-19 09:14 | XMS REPORT | Encounter Summary ---
Author Author [facility] Organization [facility] Address Unknown Phone Unavailable Care Team Providers Care Adult Basic Education Manager Name Role Phone Shannon Falk PCP Reason for Referral * Diagnostic Imaging (Routine) Referred By Contact Referred To Contact Status Reason Specialty Diagnoses / Procedures Peter Stafford MD [address] [place] [address] Closed Diagnoses Varicose veins of left lower extremity with other complications P rocedures US Vein Mapping w Duplex lower extremity left Reason for Visit * Diagnostic Imaging (Routine) Referred By Contact Referred To Contact Status Reason Specialty Diagnoses / Procedures Peter Stafford MD [address] [place] [address] Closed Diagnoses Varicose veins of left lower extremity with other complications P rocedures US Vein Mapping w Duplex lower extremity left Encounter Details Care Team Description Date Type Department Pamela Navarro, EVAPORATOR [address] [place] [address] [phone] Varicose veins of left lower extremity w ith other complications 05/06/2019 [facility] Encounter Valve & Vascular Clinic [address] [facility] [address] [place], [place] [address] Social History Date Tobacco Use Types Packs/Day [...] Description Date Type Specialty Vikas Ross MD 1744 [facility] 230 [place] [address] [phone] 07/03/2019 Video Visit Cardiology Mayank Novoa DO 4321 [facility] 1200 [place] [address] [phone] 08/06/2019 Appointment Pain Medicine documented as of this encounter Procedures Comments [...] OBRIEN Sex#: F #: [id number] Abdirizak# : [id number] Location: [facility] US Procedure Requested: [id number] US VEIN MAPPING W DUPLEX LOWER EXTREMITY LEFT Reason for Exam: Varicose veins of le ft lower extremity with other complications Exam Ordered: 05/06/2019 12 36 Exam Date/Time: 05/06/2019 132 9 Begin exam date/time: 05/06/2019 125 7 READING SITE: [facility] US VEIN MAPPING W DUPLEX LOWER EXTREMIT [...] HARI OBRIEN Sex#: F #: [id number] Abdirizak#: [id number] Location: [facility] US Procedure Requested: [id number] US VEIN MAPPING W DUPLEX LOWER EXTREMITY LEFT Reason for Exam: Varicose veins of left lower extremity with other complications Exam Ordered: 05/06/2019 1236 Exam Date/Time: 05/06/2019 1329 Begin exam date/time: 05/06/2019 1257 READING SITE: [facility] US VEIN MAPPING W DUPLEX LOWER EXTREMITY [...]
--- OUTSIDE RECORDS SUMMARY | 2019-06-19 09:14 | XMS REPORT | Clinical Summary ---
Author Author [facility] Organization [facility] Address Unknown Phone Unavailable Care Team Providers Care Autocad Technician Name Role Phone Shannon Falk PCP Allergies Comments Active Allergy Reactions Severity Noted Date Infliximab Rash Low 10/30/2017 Wrupbxy-Trt-Thk Reductase Myalgia 11/27/2018 Inhibitors Sulfa (Sulfonamide Hives [...] Valve and Vascular Encounter Mo Jones, manager procurement Refill 04/05/2019 Refill Pain Medicine Ina Rubio RN Cardiology test results (cardioscan) 04/03/2019 Telephone Cardiology Carey Holt APRN [place] coronary artery calcium score g reater than 400 (Primary Dx) 04/03/2019 Orders Only Cardiology from Last 3 Months Family History [...] Comments Vital Sign 161/86 04/15/2019 11:05 AM CARE PROCESS MANAGER Blood Pressure 60 04/15/2019 11:05 AM CARE PROCESS MANAGER Pulse 36.6 C (97.8 F) 03/13/2019 10:58 AM CARE PROCESS MANAGER Temperature 17 07/31/2015 4:07 PM CDT Respiratory Rate 96% 03/13/2019 11:35 AM CARE PROCESS MANAGER Oxygen Saturation - - Inhaled Oxygen Concentration 87.1 kg (192 lb) 01/14/2019 11:11 AM CARE PROCESS MANAGER Weight 162.6 cm (5' 4") 01/14/2019 11:11 AM CARE PROCESS MANAGER Height 32.96 01/14/2019 11:11 AM CARE PROCESS MANAGER Body Mass Index Plan of Treatment Care Team Description Date Type Specialty Vikas Ross MD 5844 [facility] 230 [place] [address] [phone] 07/03/2019 Video Visit Cardiology Mayank Novoa, DO 4321 [facility] 1200 [place] [address] [phone] 08/06/2019 Appointment Pain Medicine Health Maintenance Due Date Last Done Comments [...] ot Implanted Type Area Manufactur er 01/14/2016 BL-1500-001 / [id number] / Implant Allograft Vivigen 1ml Non-Tissue N/A: Spine LIFENET Bl-1500-001 - [id number] Implant Lumbar Implanted: Qty: 1 on 07/28/2015 by Frank Abdi MD at [facility] Description: 01/09/2016 -1500-001 / [id number] / Implant Allograft Vivigen 1ml Non-Tissue N/A: Spine LIFENET Bl-1500-001 - [id number] Implant Lumbar Implanted: Qty: 1 on 07/28/2015 by Frank Abdi MD at [facility] [id number] / / Implant Spacer Rise 10 X 26 8-15mm Non-Tissue N/A: Spine GLOBUS 193.122 - [id number] Implant Lumbar Implanted: Qty: 1 on 07/28/2015 by Frank Abdi MD at [facility] 510 / / Needle Jamshidi Beveled Tip 10ga X Non-Tissue N/A: Spine DEPUY 5" - [id number] Implant Lumbar SPI NE Implanted: Qty: 2 on 07/28/2015 by Frank Abdi MD at [facility] 140 / / Implant Screw X-Tab Migeul 6 X 40mm Non-Tissue N/A: Spine DEPUY 60140 - [id number] Implant Lumbar SPINE Implanted: Qty: 1 on 07/28/2015 by Frank Abdi MD at [facility] 60-145 / / Implant Screw X-Tab Miguel 6 X 45mm Non-Tissue N/A: Spine DEPUY 60-145 - [id number] Implant Lumbar SPINE Implanted: Qty: 3 on 07/28/2015 by Frank Abdi MD at [facility] 045 / / Implant Morales 45mm 045 - Non-Tissue N/A: Spine DEPUY [id number] Implant Lumbar SPINE Implanted: Qty: 2 on 07/28/2015 by Frank Abdi MD at [facility] / / Implant Screw Inner Set Non-Tissue N/A: Spine DEPUY - [id number] Implant Lumbar SPINE Implanted: Qty: 4 on 07/28/2015 by Frank Abdi MD at [facility] Procedures Comments Procedure Name Priority Date/Time Associated Diag nosis US VEIN MAPPING W DUPLEX Routine 05/06/2019 Varic ose veins of left LOWER EXTREMITY LEFT 1:29 PM CDT lower extremity with other complications US GUIDED ENDOVENOUS Routine 04/30/2019 Varicose veins of left LASER ABLATION 9:27 AM CDT lower extremity wit h pain from Last 3 Months Results * US [...] complete details. Narrative Performed At Patient: DALILA OBRINE Sex#: F #: 1950 Abdirizak# : [id number] Location: [facility] US Procedure Requested: [id number] US VEIN MAPPING W DUPLEX LOWER EXTREMITY LEFT Reason for Exam: Varicose veins of le ft lower extremity with other complications Exam Ordered: 05/06/2019 12 36 Exam Date/Time: 05/06/2019 132 9 Begin exam date/time: 05/06/2019 125 7 READING SITE: [facility] US VEIN MAPPING W DUPLEX LOWER [...] DALILA OBRIEN Sex#: F #: 1950 Abdirizak#: [id number] Location: [facility] US Procedure Requested: [id number] US VEIN MAPPING W DUPLEX LOWER EXTREMITY LEFT Reason for Exam: Varicose veins of left lower extremity with other complications Exam Ordered: 05/06/2019 1236 Exam Date/Time: 05/06/2019 1329 Begin exam date/time: 05/06/2019 1257 READING SITE: [facility] VEIN MAPPING W DUPLEX LOWER EXTREMITY LEFT [...] Address City/State/Zipcode Ph one Number [place] * US Guided Endovenous Laser Ablation (04/30/2019 9:27 AM CDT) CRITICAL REPORT NMDB PACS Specimen Performing Organization Address City/State/Zipcode Ph one Number NMDB PACS from Last 3 Months Insurance Type Payer Benefit Subscriber ID Effective Phone Address Plan / Dates Group Medicare MEDICARE MEDICARE xxxxxxxxxxx 2014-P [place] PART A B [place], [place] COMMERCIAL-NONCONTRACTED [employer] xxxxxxxxxx 12/01 MEDICARE -Present SUPPLEMENT (Home) [place] [address] Dalila Obrien Personal/F Self 1950 [address] [place] [address] (Home) [place] [address] Dalila Obrien Personal/F Self 1950 [address] [place] [address] (Home) [place] [address] Advance Directives For more information, please contact: [phone] Patient Plug And Mold Finisher Explanation Type Date Recorded Advance Directives and Living Will Power of Brass Pickler Health Care Directive Date Inactivated Comments Code Status Date Activated 07/31/2015 8:12 PM Full Code 07/28/2015 11:55 AM
--- OUTSIDE RECORDS SUMMARY | 2019-06-19 09:14 | XMS REPORT | Encounter Summary ---
Author Author [facility] Organization [facility] Address Unknown Phone Unavailable Care Team Providers Care Cement Mixer Driver Name Role Phone Shannon Falk PCP Reason for Visit * Reason Comments Mid Back Pain * Pain Management (Routine) Referred By Contact Referred To Contact Status Reason Specialty Diagnoses / Procedures [facility] [address] [place] [address] Mayank Novoa DO [address] [place] [address] Closed Pain Management Diagnoses / Pain Medicine TPI , expectin inj P rocedures TRIGGER POINT INJECTION Encounter Details Care Team Description Date Type Department Mayank Novoa DO [address] [place] [address] [phone] Myofascial pain syndrome (Primary Dx); Spondylosis of thoracic region without myelopathy or radiculopathy; Rheumatoid arthritis, involving unspecified site, unspecified rheumatoid factor presence (HCC) 03/13/2019 [facility] al Encounter Pain Management Clinic [address] [place] [address] Social History Date Tobacco Use Types Packs/Day [...] Comments Vital Sign 142/80 03/13/2019 11:35 AM ORE WASHER Blood Pressure 67 03/13/2019 11:35 AM ORE WASHER Pulse 36.6 C (97.8 F) 03/13/2019 10:58 AM ORE WASHER Temperature - - Respiratory Rate 96% 03/13/2019 11:35 AM ORE WASHER Oxygen Saturation - - Inhaled Oxygen Concentration - - Weight - - Height - - Body Mass Index documented in this encounter Discharge Instructions * Patient Instructions* Chandni Reardon RN - 03/13/2019 11:30 AM ORE WASHER Trigger Point injections Keep the injection site [...] If you have any questions, please call [phone] or , Monday rough Monday (8:00AM - 4:00 PM). On evenings, weekends, and holidays, please ca [phone] and ask for the director foundation Anesthesiologist for pain management. WASHER documented in this encounter Medications at Time [...] Mayank Novoa DO - 03/13/2019 11:30 AM ORE WASHER Associated Order(s): Trigger point >=3 muscle groups [...] discharge instructions for the procedure were given. WASHER documented in this encounter Plan of Treatment Care Team Description Date Type Specialty Vikas Ross MD [address] [facility] [address] [place] [address] [phone] 07/03/2019 Video Visit Cardiology Mayank Novoa DO 4[address] [facility] 1200 [place], [place] [id number] 08/06/2019 Appointment Pain Medicine documented as of this encounter Procedures Comments Procedure Name Priority Date/Time Associated Diag nosis TRIGGER POINT >=3 MUSCLE Routine 03/13/2019 Myofa scial pain syndrome GROUPS 11:30 AM ORE WASHER Spondylosis of thor acic region without myelopathy or radiculopathy Rheumatoid arthritis, involving unspecified site, unspecified rheumatoid factor presence (HCC) documented in this encounter Results * Trigger point >=3 muscle groups (03/13/2019 11:30 AM ORE WASHER) Narrative Performed At Mayank Novoa DO 03/13/2019 [...] Medication Order MAR Action 03/13/2019 11:15 AM ORE WASHER 4 mL bupivacaine (pf) (MARCAINE) 0.5 % (5 Given mg/mL) injection Code/trauma/sedation medication, Starting 03/13/19 at 1115 03/13/2019 11:15 AM ORE WASHER 40 mg methylPREDNISolone acetate (DEPO-MEDROL) Given 40 mg/mL injection Code/trauma/sedation medication, Starting Mon03/13/19 at 1115 documented in this encounter
--- OUTSIDE RECORDS SUMMARY | 2019-06-19 09:14 | XMS REPORT | Encounter Summary ---
Author Author [facility] Organization [facility] Address Unknown Phone Unavailable Care Team Providers Care Destaticizer Feeder Name Role Phone Reynaldo Falky PCP Reason for Visit * Reason Comments Medication questions Encounter Details Care Team Description Date Type Department Maddy Hameed RN Medication questions 03/01/2019 Telephone [facility] [address] [facility] [address] [place] [address] Social History Date Tobacco Use Types Packs/Day [...] Prashant Pritchett LPN - 03/07/2019 10:07 AM EXECUTIVE SEARCH CONSULTANT Submitted PA for repatha. UTIVE SEARCH CONSULTANT * Telephone Encounter - Susan Benson LPN - 03/06/2019 2:25 PM EXECUTIVE SEARCH CONSULTANT Received a faxed letter from [employer] stating pt's repatha will require a PA UTIVE SEARCH CONSULTANT * Addendum Note - Roger Diaz RN - 03/01/2019 10:05 AM EXECUTIVE SEARCH CONSULTANT Addended by: ROGER DIAZ on: 03/01/2019 10:05 AM Modules accepted: Orders UTIVE SEARCH CONSULTANT * Telephone Encounter - Roger Diaz RN - 03/01/2019 9:48 AM EXECUTIVE SEARCH CONSULTANT Attempted to reach pt and per her PHI left a detailed message with the recs from Dr Ross. Sent in a script to her local pharmacy. Updated the med list. Call back number provided. UTIVE SEARCH CONSULTANT * Telephone Encounter - Vikas Ross MD - 03/01/2019 9:34 AM EXECUTIVE SEARCH CONSULTANT 140mg every 2 weeks UTIVE SEARCH CONSULTANT * Telephone Encounter - Vikas Ross MD - 03/01/2019 7:26 AM EXECUTIVE SEARCH CONSULTANT Yes, ok to substitute. Vikas Harden UTIVE SEARCH CONSULTANT * Telephone Encounter - Maddy Hameed RN - 03/01/2019 7:24 AM EXECUTIVE SEARCH CONSULTANT Received an incoming letter from pt states [...] bin to be scanned into pt chart. UTIVE SEARCH CONSULTANT documented in this encounter Plan of Treatment Care Team Description Date Type Specialty Vikas Ross MD [address] [facility] 230 [place] [address] [phone] 07/03/2019 Video Visit Cardiology Mayank Novoa DO [address] [facility] 1200 [place] [address] [phone] 08/06/2019 Appointment Pain Medicine documented as of this encounter Visit Diagnoses Not on filedocumented in this encounter
--- OUTSIDE RECORDS SUMMARY | 2019-06-19 09:14 | XMS REPORT | Encounter Summary ---
Author Author [facility] Organization [facility] Address Unknown Phone Unavailable Care Team Providers Care Housemaid Name Role Phone Reynaldo Falky PCP Encounter Details Care Team Description Date Type Department Vikas Ross MD [address] [facility] [address] [place] [address] [phone] 03/13/2019 Documentation [facility] [address] [facility] [address] [place] [address] Social History Date Tobacco Use Types Packs/Day [...] Date Type Specialty Vikas Ross MD [address] [facility] [address] [place] [address] [phone] 07/03/2019 Video Visit Cardiology Mayank Novoa DO 4[address] [facility] 1200 [place] [address] [phone] 08/06/2019 Appointment Pain Medicine documented as of this encounter Visit Diagnoses Not on filedocumented in this encounter
--- OUTSIDE RECORDS SUMMARY | 2019-06-19 09:14 | XMS REPORT | Encounter Summary ---
Author Author [facility] Organization [facility] Address Unknown Phone Unavailable Care Team Providers Care Claims Auditor Name Role Phone Shannon Falk PCP Encounter Details Care Team Description Date Type Department Ezio Daniel MA 05/03/2019 [facility] [address] [facility] [address] [place] [address] Social History Date Tobacco Use Types Packs/Day [...] Description Date Type Specialty Vikas Ross MD [facility] [address] [place] [address] [phone] 07/03/2019 Video Visit Cardiology Mayank Novoa DO [address] [facility] 1200 [place] [address] [phone] 08/06/2019 Appointment Pain Medicine documented as of this encounter Visit Diagnoses Not on filedocumented in this encounter
--- OUTSIDE RECORDS SUMMARY | 2019-06-19 09:14 | XMS REPORT | Encounter Summary ---
Author Author [facility] Organization [facility] Address Unknown Phone Unavailable Care Team Providers Care Custom Tailor Name Role Phone Shannon Falk PCP Encounter Details Care Team Description Date Type Department Vikas Ross MD [address] [facility] [address] [place] [address] [phone] Specialty Pharmacy Refill Coordination 01/16/2019 Specialty [facility] Pharmacy [address] [place] [address] Social History Date Tobacco Use Types Packs/Day [...] * Blossom Calderon - 01/16/2019 10:35 AM COMPUTER TECHNOLOGY INSTRUCTOR Specialty Pharmacy Refill Coordination Note Dalila Hameed [...] town. Follow-up: 28 day(s) Blossom Calderon Specialty Front End Application Developer UTER TECHNOLOGY INSTRUCTOR documented in this encounter Plan of Treatment Care Team Description Date Type Specialty Vikas Ross MD [address] [facility] 230 [place] [address] [phone] 07/03/2019 Video Visit Cardiology Mayank Novoa DO [address] [facility] [address] [place] [address] [phone] 08/06/2019 Appointment Pain Medicine documented as of this encounter Visit Diagnoses Not on filedocumented in this encounter
--- OUTSIDE RECORDS SUMMARY | 2019-06-19 09:14 | XMS REPORT | Encounter Summary ---
Author Author [facility] Organization [facility] Address Unknown Phone Unavailable Care Team Providers Care Warehousing Technician Name Role Phone Shannon Falk PCP Reason for Referral * Diagnostic Imaging (Routine) Referred By Contact Referred To Contact Status Reason Specialty Diagnoses / Procedures Pamela Navarro APRN [address] [facility] [address] [place] [address] [facility] [address] [facility] [address] [place] [address] Closed Radiology Diagnoses Varicose veins of left lower extremity with pain P rocedures US Guided Endovenous Laser Ablation Reason for Visit * Diagnostic Imaging (Routine) Referred By Contact Referred To Contact Status Reason Specialty Diagnoses / Procedures Pamela Navarro APRN [address] [facility] [address] [place] [address] [facility] [address] [facility] [address] [place] [address] Closed Radiology Diagnoses Varicose veins of left lower extremity with pain P rocedures US Guided Endovenous Laser Ablation Encounter Details Care Team Description Date Type Department Peter Stafford MD [address] [place] [address] [phone] Venous insufficiency (Primary Dx); Varicose veins of left lower extremity with pain [facility] [address] [facility], [address] [place] [address] Social History Date Tobacco Use Types Packs/Day [...] Stafford MD - 04/30/2019 9:00 AM CDT [facility] Vein Clinic Procedure Note [...] the venipuncture sites, which were bandaged with Brookesmith r-roll. Following the procedure, a graduated compression [...] affected leg. Peter Stafford MD, MSc, FACC, [facility] Interventional Cardiology [facility] Pager: [phone] 04/30/2019 9:45 AM documented in this encounter Plan of Treatment Care Team Description Date Type Specialty Vikas Ross MD [address] [facility] 230 [place] [address] [phone] 07/03/2019 Video Visit Cardiology Mayank Novoa, [address] [facility] [address] [place] [address] [phone] 08/06/2019 Appointment Pain Medicine documented as of [...]
--- OUTSIDE RECORDS SUMMARY | 2019-06-19 09:14 | XMS REPORT | Encounter Summary ---
Author Author [facility] Organization [facility] Address Unknown Phone Unavailable Care Team Providers Care Blending Tank Tender Helper Name Role Phone Shannon Falk PCP Reason for Referral * MRI/CAT/PET Scan (Routine) Referred By Contact Referred To Contact Status Reason Specialty Diagnoses / Procedures Carey Holt APRN [address] , [facility] [address] [place] [address] [facility] [address] [place] [address] Closed Cardiology Diagnoses Familial hypercholesterolem ia Obesity (BMI 30.0-34.9) P rocedures CV CT Cardioscan Reason for Visit * MRI/CAT/PET Scan (Routine) Referred By Contact Referred To Contact Status Reason Specialty Diagnoses / Procedures Carey Holt APRN [address] , [address] [place] [address] [facility] [address] [place] [address] Closed Cardiology Diagnoses Familial hypercholesterolem ia Obesity (BMI 30.0-34.9) P rocedures CV CT Cardioscan Encounter Details Care Team Description Date Type Department Carey Holt APRN [address] , [address] [place] [address] [phone] Familial hypercholesterolemia; Obesity (BMI 30.0-34.9) 03/01/2019 [facility] Encounter [address] [place] [address] Social History Date Tobacco Use Types Packs/Day [...] De La Paz - 03/01/2019 2:27 PM PLANNING ADVISOR Patient was counseled today regarding their preliminary Cardioscan results. The patient had a coronary artery calcium score of 1020.1 which is in the 97th perce ntile of their age, gender and ethnicity. We recommend healthy lifestyle, inclu ding Mediterranean diet, regular exercise, maintaining a normal body weight and not to use tobacco products. Follow up with PCP or coding quality analyst to manage risk factors and discuss further testing if necessary. The patient was told that if they developed symptoms such as chest pain, shortness of breath, fatigue, palpit ations or dizziness we advise them to follow up with PCP or coding quality analyst immmarty pearsony. They were told that a formal report [...] Kellie De La Paz Cardioscan Patient Educator NING ADVISOR documented in this encounter Plan of Treatment Care Team Description Date Type Specialty Vikas Ross MD [address] [facility] 230 [place], [place] [id number] 07/03/2019 Video Visit Cardiology Mayank Novoa, 4[address] [facility] [address] [place] [address] [phone] 08/06/2019 Appointment Pain Medicine documented as of this encounter Procedures Comments Procedure Name Priority Date/Time Associated Diag nosis CV CT CARDIOSCAN Routine 03/01/2019 Familial 1:46 PM PLANNING ADVISOR hypercholesterolemia Obesity (BMI 30.0-34.9) documented in this encounter Results * CV CT Cardioscan (03/01/2019 1:46 PM PLANNING ADVISOR) Calcium Score 1,020.1 [facility] Specimen Narrative Performed At [facility] NAME: HARI OBRIEN : [id number] GENDER: f MRN: ACCOUNT NUM: [id number] TEST: Coronary Calcium Score TEST DATE: TEST LOCATION: [facility] INPATIENT: INDICATION FOR TEST: Hypertension, Hy perlipidemia, [...] artery, a calcium score was computed using Sputnik8 volumetric cardiac scoring software. Such deposits are [...] for further information. Luis Angel Myers MD [address] , [address] [place] [address] PROVIDER APPROVAL DATETIME: 2019-02-20 0 16:12:24.0 Procedure Note Interface, External Ris In - 03/04/2019 7:17 AM PLANNING ADVISOR NAME: HARI OBRIEN : [id number] GENDER: f MRN: NATHANAEL NUM: [id number] TEST: Coronary Calcium Score TEST DATE: TEST LOCATION: [facility] INPATIENT: INDICATION FOR TEST: Hypertension, Hyperlipidemia, Positive [...] further information. Luis Angel Myers MD [address] [facility], [address] [place] [address] PROVIDER APPROVAL DATETIME: 2019-03-01 16:12:24.0 Performing Organization Address City/State/Zipcode Ph one Number [facility] documented in this encounter Visit Diagnoses Diagnosis Familial hypercholesterolemia Obesity (BMI 30.0-34.9) documented in this encounter
--- OUTSIDE RECORDS SUMMARY | 2019-06-19 09:15 | XMS REPORT | Encounter Summary ---
Author Author [facility] Organization [facility] Address Unknown Phone Unavailable Care Team Providers Care Manager Ct Name Role Phone Shannon Falk PCP Reason for Referral * Diagnostic Imaging (Routine) Referred By Contact Referred To Contact Status Reason Specialty Diagnoses / Procedures Vikas Ross MD [address] [place] [address] [facility] [address] [facility] [address] [place] [address] Closed Radiology Diagnoses Edema of lower extremity P rocedures US Vein Mapping w Duplex lower extremity bilat complete Reason for Visit * Diagnostic Imaging (Routine) Referred By Contact Referred To Contact Status Reason Specialty Diagnoses / Procedures Vikas Ross MD [address] [place] [address] [facility] [address] [facility], [address] [place] [address] Closed Radiology Diagnoses Edema of lower extremity P rocedures US Vein Mapping w Duplex lower extremity bilat complete Encounter Details Care Team Description Date Type Department Pamela Navarro, ROSANNE [address] [place] [address] [phone] Edema of lower extremity [facility] [address] [facility], [address] [place] [address] Social History Date Tobacco Use Types Packs/Day [...] Specialty Vikas Ross MD [address] [place] [address] [phone] 07/03/2019 Video Visit Cardiology Mayank Novoa, [address] [address] [phone] 08/06/2019 Appointment Pain Medicine documented as of this encounter Procedures Comments Procedure Name Priority Date/Time Associated Diag nosis US VEIN MAPPING W DUPLEX Routine 01/07/2019 Edema of lower extremity LOWER EXTREMITY BILAT 11:59 AM PSYCHIATRIC NURSING AIDE COMPLETE documented in this encounter Results * US Vein Mapping w Duplex lower extremity bilat complete (01/07/2019 11:59 AM PSYCHIATRIC NURSING AIDE) Specimen Impressions Performed At FINDINGS/IMPRESSION: KALIE RIGHT [...] OBRIEN Sex#: F #: [id number] Abdirizak# : [id number] Location: [facility] US Procedure Requested: [id number] US VEIN MAPPING W DUPLEX LOWER EXTREMITY BILAT COMPLETE Reason for Exam: Edema of lower extre mity Exam Ordered: 01/07/2019 1 037 Exam Date/Time: 01/07/2019 11 59 Begin exam date/time: 01/07/2019 10 49 READING SITE: [facility] VEIN MAPPING W DUPLEX LOWER EXTREMIT Y [...] Rad Results In - 01/09/2019 2:08 PM PSYCHIATRIC NURSING AIDE Patient: HARI OBRIEN Sex#: F #: [id number] Abdirizak#: [id number] Location: [facility] US Procedure Requested: [id number] US VEIN MAPPING W DUPLEX LOWER EXTREMITY BILAT COMPLETE Reason for Exam: Edema of lower extremity Exam Ordered: 01/07/2019 1037 Exam Date/Time: 01/07/2019 1159 Begin exam date/time: 01/07/2019 1049 READING SITE: [facility] VEIN MAPPING W DUPLEX LOWER EXTREMITY BILAT [...] diagram for complete details. Performing Organization Address City/State/[facility] Ph one Number KALIE documented in this encounter Visit Diagnoses Diagnosis Edema of lower extremity documented in this encounter
--- OUTSIDE RECORDS SUMMARY | 2019-06-19 09:15 | XMS REPORT | Encounter Summary ---
Author Author [facility] Organization [facility] Address Unknown Phone Unavailable Care Team Providers Care Trade Show Coordinator Name Role Phone Shannon Falk PCP Encounter Details Care Team Description Date Type Department Vikas Ross MD [address] [facility] [address] [place] [address] [phone] Specialty Pharmacy Prior Auth Coordinati on 10/31/2018 Specialty [facility] [address] [facility] [address] Social History Date Tobacco Use Types Packs/Day [...] SLACP Approval letter scanned into Dalila's media services specialist BOUBACAR called and discussed approval with Dalila. [...] prior authorization request has been submitted to [facility]'s insurance. documented in this encounter Plan of Treatment Care Team Description Date Type Specialty Vikas Ross MD [address] [facility] [place] [facility] 230 [place] [address] [phone] 07/03/2019 Video Visit Cardiology Mayank Novoa DO 4[address] [facility] 1200 [place] [address] [phone] 08/06/2019 Appointment Pain Medicine documented as of this encounter Visit Diagnoses Not on filedocumented in this encounter
--- OUTSIDE RECORDS SUMMARY | 2019-06-19 09:15 | XMS REPORT | Encounter Summary ---
Author Author [facility] Organization [facility] Address Unknown Phone Unavailable Care Team Providers Care Executive Chef Name Role Phone Shannon Falk PCP Encounter Details Care Team Description Date Type Department Yobany Riddle PA-C [address] [facility] [address] [facility] [address] [place] [address] [phone] Low back pain 12/07/2018 [facility] [place] [facility] 4[address] [facility] [address] [place] [address] Social History Date Tobacco Use Types Packs/Day [...] MD [address] [place] [address] [phone] 07/03/2019 Video Visit Cardiology Mayank Novoa DO 4[address] [facility] [address] [place] [address] [phone] 08/06/2019 Appointment Pain Medicine documented as of [...] the prior radiograph on 09/21/2015. READING SITE: [facility] Narrative Performed At Patient: HARI OBRIEN Sex#: F #: [id number] Abdirizak# : [id number] Location: [facility] XRAY 0502 Procedure Requested: [id number] XR LUMBA R SPINE 2 OR 3 [...] HARI OBRIEN Sex#: F #: [id number] Abdirizak#: [id number] Location: [facility] XRAY Procedure Requested: [id number] XR LUMBAR SPINE 2 OR 3 VIEWS [...] the prior radiograph on 09/21/2015. READING SITE: [facility] Imaging Performing Organization Address City/State/Zipcode Ph one Fito JADE documented in this encounter Visit Diagnoses Diagnosis Low back pain Lumbago documented in this encounter
--- OUTSIDE RECORDS SUMMARY | 2019-06-19 09:15 | XMS REPORT | Encounter Summary ---
Author Author [facility] Organization [facility] Address Unknown Phone Unavailable Care Team Providers Care Non Destructive Testing Scientist Name Role Phone Shannon Falk PCP Encounter Details Care Team Description Date Type Department Yobany Riddle PA-C 43[address] [facility] [address] [place], [place] [address] Spinal stenosis, lumbar (Primary Dx) 12/07/2018 Transcribe [facility] Neurol ogical Orders & Spine Surgery 43[address] [facility], [facility] [address] [place] [address] Social History Date Tobacco Use Types Packs/Day [...] Type Specialty Vikas Ross MD [address] [facility] [address] [place] [address] [phone] 07/03/2019 Video Visit Cardiology Mayank Novoa DO 4321 [facility] [address] [place] [address] [phone] 08/06/2019 Appointment Pain Medicine documented as of this encounter Results * XR Outside images for PACS (12/07/2018 10:46 AM CDT) Specimen Performing Organization Address City/State/Zipcode Ph one Number KALIE documented in this encounter Visit Diagnoses Diagnosis Spinal stenosis, lumbar Spinal stenosis of lumbar region documented in this encounter
--- OUTSIDE RECORDS SUMMARY | 2019-06-19 09:15 | XMS REPORT | Encounter Summary ---
Author Author [facility] Organization [facility] Address Unknown Phone Unavailable Care Team Providers Care Financial Center Manager Name Role Phone Shannon Falk PCP Reason for Referral * MRI/CAT/PET Scan (Routine) Referred By Contact Referred To Contact Status Reason Specialty Diagnoses / Procedures Carey Holt APRN [address] , [facility] [address] [place] [address] [facility] [address] [place] [address] Closed Cardiology Diagnoses Familial hypercholesterolem ia Obesity (BMI 30.0-34.9) P rocedures CV CT Cardioscan Reason for Visit * Reason Comments Hypertension Hyperlipidemia Encounter Details Care Team Description Date Type Department Vikas Ross MD [address] [facility] [address] [place] [address] [phone] Carey Holt APRN [address] , [address] [place] [address] [phone] Familial hypercholesterolemia (Primary D x); Essential hypertension; Obesity (BMI 30.0-34.9); Hyperglycemia; Encounter for long-term (current) use of other medications; Vitamin D deficiency 11/27/2018 Initial consult [facility] [address] [place] [address] Social History Date Tobacco Use Types Packs/Day [...] Holt APRN - 11/27/2018 1:00 PM CDT [facility] Note Appointment Date: 11/27/2018 Shannon Falk MD [address] [facility] [id number] RE: Dalila Obrien : 1950 Visit provider: [...] leg pain RADICULAR PAIN RA (rheumatoid arthritis) ([facility]) RHEUMATOID ARTHRITIS Neuropathy NEUROPATHY Hypothyroidism HYPOTHYROIDISM Essential [...] 30.0-34.9) Osteoarthritis HANDS, HIPS RA (rheumatoid arthritis) ([facility]) APPROX 10 YRS Radicular leg pain 05/25/2015 Rheumatoid arthritis of spine ([facility]) CERVICAL SPINE; HAS FULL ROM WITH NECK Sciatica DOWN LEFT LEG Urinary incontinence STRESS INCONTINENCE Past Surgical History: Procedure Laterality Date BUNIONECTOMY Right FRACTURE SURGERY Left CLAVICAL FX FUSION, SPINE, LUMBAR, INTERBODY, TRANSFORAMINAL APPROACH Left 07/28/2015 Procedure: L4-L5 FUSION TRANSFORAMINAL LUMBAR INTERBODY SPINE; Surgeon: Yue Abdi MD; Location: [facility]; Service: Neurosurgery; Laterality: Le ft; HYSTERECTOMY [...] medications for this visit. Allergies Allergen Reactions Nbjpjro-Fmg-Rmi Reductase Inhibitors Myalgia Sulfa (Sulfonamide Antibiotics) Hives [...] of cardiovascular exercising 5 days a w [facility] and adding in some resistance training to [...] Vikas Ross MD 5844 [facility] 230 [place] [address] [phone] 07/03/2019 Video Visit Cardiology Mayank Novoa DO 4321 [facility] [address] [place] [address] [phone] 08/06/2019 Appointment Pain Medicine documented as of [...] * CV CT Cardioscan (03/01/2019 1:46 PM CRIMINAL JUSTICE INSTRUCTOR) Calcium Score 1,020.1 [facility] Specimen Narrative Performed At [facility] NAME: DALILA OBRIEN DOB: [id number] GENDER: f MRN: NATHANAEL NUM: [id number] TEST: Coronary Calcium Score TEST DATE: TEST LOCATION: [facility] INPATIENT: INDICATION FOR TEST: Hypertension, Hy [...] artery, a calcium score was computed using [employer] volumetric cardiac scoring software. Such deposits are [...] further information. Luis Angel Myers MD [address] [facility], [address] [place] [address] PROVIDER APPROVAL DATETIME: 2019-02-20 0 16:12:24.0 Procedure Note Interface, External Ris In - 03/04/2019 7:17 AM CRIMINAL JUSTICE INSTRUCTOR NAME: DALILA OBRIEN : [id number] GENDER: f MRN: NATHANAEL NUM: [id number] TEST: Coronary Calcium Score TEST DATE: TEST LOCATION: [facility] INPATIENT: INDICATION FOR TEST: Hypertension, Hyperlipidemia, [...] Myers MD [address] , [address] [place] [address] PROVIDER APPROVAL DATETIME: 2019-03-01 16:12:24.0 Performing Organization [...]
--- OUTSIDE RECORDS SUMMARY | 2019-06-19 09:15 | XMS REPORT | Encounter Summary ---
Author Author [facility] Organization [facility] Address Unknown Phone Unavailable Care Team Providers Care Internal Controls Analyst Name Role Phone Shannon Falk PCP Reason for Referral * Consultation (Routine) Referred By Contact Referred To Contact Status Reason Specialty Diagnoses / Procedures Yobany Riddle PA-C [address] [place] [address] [facility] [address], [address] [facility] [place] [place] [address] Closed Specialty Services Pain Medicine Diagnoses Required Low back pain Reason for Visit * Reason Comments Follow-up * Consultation (Routine) Referred By Contact Referred To Contact Status Reason Specialty Diagnoses / Procedures Nikhil Brooke DO [address] [place] [address] Frank Abdi MD [address] [place] [address] Closed Specialty Services Neurosurgery Diagnoses Required Low back pain Encounter Details Care Team Description Date Type Department Nikhil Brooke DO [address] [place] [address] [phone] Yobany Riddle PA-C [address] [place] [address] [phone] Low back pain (Primary Dx) 12/07/2018 Office Visit [facility] ogical & Spine Surgery [address] [facility], [address] [place] [address] Social History Date Tobacco Use Types Packs/Day [...] 10 in the past. She saw her gin operator for this complaint who ordered lumbar x-rays [...] to light touch all extremities. Assessment/Plan: Mrs. Orbien is a pleasant 68-year-old female who presents [...] on an as-needed basis. Yobany Riddle PA-C [facility] Neurosurgery [facility] 1 [address] [place] [address] documented in this encounter Plan of Treatment Care Team Description Date Type Specialty Vikas Ross MD [address]44 [facility] [address] [place] [address] [phone] 07/03/2019 Video Visit Cardiology Mayank Novoa, 4[address] [facility] [address] [place] [address] [phone] 08/06/2019 Appointment Pain Medicine Order Schedule Name [...] the prior radiograph on 09/21/2015. READING SITE: [facility] Imaging Narrative Performed At Patient: DALILA OBRIEN Sex#: F #: [id number] Abdirizak# : [id number] Location: [facility] XRAY 0502 Procedure Requested: [id number] XR LUMBA R SPINE 2 OR 3 [...] MICAH DALILA Sex#: F #: [id number] Abdirizak#: [id number] Location: [facility] XRAY Procedure Requested: [id number] XR LUMBAR SPINE 2 OR 3 VIEWS [...] the prior radiograph on 09/21/2015. READING SITE: [facility] Imaging Performing Organization Address City/State/Zipcode Ph one Fito JADE documented in this encounter Visit Diagnoses Diagnosis Low back pain Lumbago documented in this encounter
--- OUTSIDE RECORDS SUMMARY | 2019-06-19 09:15 | XMS REPORT | Encounter Summary ---
Author Author [facility] Organization [facility] Address Unknown Phone Unavailable Care Team Providers Care Non Profit Director Name Role Phone [place] PCP Encounter Details Care Team Description Date Type Department Carey Holt APRN [address], [address] [place] [address] [phone] 11/14/2018 Documentation [facility] [address] [place] [address] Social History Date Tobacco Use Types Packs/Day [...] MD [address] [place] [address] [phone] 07/03/2019 Video Visit Cardiology Mayank Novoa DO 4321 [facility] [address] [place] [address] [phone] 08/06/2019 Appointment Pain Medicine documented as of this encounter Visit Diagnoses Not on filedocumented in this encounter
--- OUTSIDE RECORDS SUMMARY | 2019-06-19 09:15 | XMS REPORT | Encounter Summary ---
Author Author [facility] Organization [facility] Address Unknown Phone Unavailable Care Team Providers Care Printed Circuit Board Assembler Name Role Phone Shannon Falk PCP Encounter Details Care Team Description Date Type Department Yobany Riddle PA-C [address] [facility] [address] [place] [address] [phone] Spinal stenosis, lumbar 12/07/2018 Imaging [facility] [employer] Appointment Location Social History Date Tobacco [...] Date Type Specialty Vikas Ross MD [address] [facility] [address] [place] [address] [phone] 07/03/2019 Video Visit Cardiology Mayank Novoa DO [address] [facility] [address] [place] [address] [phone] 08/06/2019 Appointment Pain Medicine documented as of [...]
--- OUTSIDE RECORDS SUMMARY | 2019-06-19 09:15 | XMS REPORT | Encounter Summary ---
Author Author [facility] Organization [facility] Address Unknown Phone Unavailable Care Team Providers Care Axle Bearing Polisher Name Role Phone Shannon Falk PCP Reason for Referral * Consultation (Routine) Referred By Contact Referred To Contact Status Reason Specialty Diagnoses / Procedures Nikhil Brooke DO [address] [place] [address] Frank Abdi MD [address] [place] [address] Closed Specialty Services Neurosurgery Diagnoses Required Low back pain Encounter Details Care Team Description Date Type Department Nikhil Brooke DO [address] [place] [address] [phone] Low back pain (Primary Dx) 11/19/2018 Transcribe [facility] Neurol ogical Orders & Spine Surgery [address] [facility] [place] [address] Social History Date Tobacco Use Types Packs/Day [...] Treatment Care Team Description Date Type Specialty Viksa Ross MD 5844 [facility] 230 [place] [address] [phone] 07/03/2019 Video Visit Cardiology Mayank Novoa DO 4321 [facility] [address] [place] [address] [phone] 08/06/2019 Appointment Pain Medicine Order Schedule Name Type Priority Associated Diag noses 1 Occurrences starting 11/19/2018 until 05/20/2019 Amb Referral To Outpatient Routine Low back pain Neurosurgery Referral documented as of this encounter Visit Diagnoses Diagnosis Low back pain Lumbago documented in this encounter
--- OUTSIDE RECORDS SUMMARY | 2019-06-19 09:15 | XMS REPORT | Encounter Summary ---
Author Author [facility] Organization [facility] Address Unknown Phone Unavailable Care Team Providers Care Yarn Preparation Supervisor Name Role Phone Shannon Falk PCP Encounter Details Care Team Description Date Type Department Vikas Ross MD [address]44 [facility] [address] [place] [address] [phone] Specialty Pharmacy Refill Coordination 12/18/2018 Specialty [facility] [address] [place] [address] Social History Date Tobacco Use Types Packs/Day [...] on 12/26. [facility] will QS medication to [facility] OP on 12/24 . Patient would like to pepper picker after appointment on 12/26. Follow-up: 28 day(s) Gertrude Mercado Specialty Fisher Scallop documented in this encounter Plan of Treatment Care Team Description Date Type Specialty Vikas Ross MD [address] [facility] [address] [place] [address] [phone] 07/03/2019 Video Visit Cardiology Mayank Novoa DO 4321 [facility] [address] [place] [address] [phone] 08/06/2019 Appointment Pain Medicine documented as of this encounter Visit Diagnoses Not on filedocumented in this encounter
--- OUTSIDE RECORDS SUMMARY | 2019-06-19 09:15 | XMS REPORT | Encounter Summary ---
Author Author [facility] Organization [facility] Address Unknown Phone Unavailable Care Team Providers Care Chief Ultrasound Technologist Name Role Phone Shannon Falk PCP Reason for Visit * Reason Comments Leg Cramping Leg pain Encounter Details Care Team Description Date Type Department Pamela Navarro, MILLING PLANER OPERATOR [address] [facility] [address] [place], [place] [id number] Varicose veins of leg with pain, irene al (Primary Dx); Deep venous insufficiency 01/07/2019 [facility] [address], [address] [place] [address] Social History Date Tobacco Use Types Packs/Day [...] Comments Vital Sign 132/79 01/07/2019 11:47 AM EXTRUSION MANAGER Blood Pressure 67 01/07/2019 11:47 AM EXTRUSION MANAGER Pulse - - Temperature - - Respiratory [...] Pamela Navarro, ROSANNE - 01/07/2019 11:50 AM EXTRUSION MANAGER [facility] Appointment Date: 01/07/2019 Shannon Falk MD [address] [facility] [address] RE: Dalila Hameed : 1950 Visit provider: Pamela Naavrro RN, CONCRETE PAVEMENT INSTALLER-BC Dear Shannon Falk MD, I had the [...] 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 She has [...] pain RADICULAR PAIN RA (rheumatoid arthritis) ([facility]) RHEUMATOID ARTHRITIS Neuropathy NEUROPATHY Hypothyroidism HYPOTHYROIDISM Essential [...] Osteoarthritis HANDS, HIPS RA (rheumatoid arthritis) ([facility]) APPROX 10 YRS Radicular leg pain 05/25/2015 Rheumatoid arthritis of spine ([facility]) CERVICAL SPINE; HAS FULL ROM WITH NECK Sciatica DOWN LEFT LEG Urinary incontinence STRESS INCONTINENCE Past Surgical History: Procedure Laterality Date BUNIONECTOMY Right FRACTURE SURGERY Left CLAVICAL FX FUSION, SPINE, LUMBAR, INTERBODY, TRANSFORAMINAL APPROACH Left 07/28/2015 Procedure: L4-L5 FUSION TRANSFORAMINAL LUMBAR INTERBODY SPINE; Surgeon: Yue Abdi MD; Location: [facility]; Service: Neurosurgery; Laterality: Le ft; HYSTERECTOMY MARTY [...] medications for this encounter. Allergies Allergen Reactions Huuhgnz-Cio-Jji Reductase Inhibitors Myalgia Sulfa (Sulfonamide Antibiotics) Hives [...] has no t worn compression since early 2018. She still has a pair at home, [...] to contact me. Sincerely, Pamela Navarro RN, CONCRETE PAVEMENT INSTALLER- USION MANAGER documented in this encounter Plan of Treatment Care Team Description Date Type Specialty Vikas Ross MD 5844 [facility] 230 [place] [address] [phone] 07/03/2019 Video Visit Cardiology Mayank Novoa DO 4321 [facility] [address] [place] [address] [phone] 08/06/2019 Appointment Pain Medicine documented as of this encounter Visit Diagnoses Diagnosis Varicose veins of leg with pain, bilate ral Deep venous insufficiency documented in this encounter
--- OUTSIDE RECORDS SUMMARY | 2019-06-19 09:15 | XMS REPORT | Encounter Summary ---
Author Author [facility] Organization [facility] Address Unknown Phone Unavailable Care Team Providers Care Log Manager Name Role Phone Shannon Falk PCP Reason for Visit * Reason Comments new patient appointment Encounter Details Care Team Description Date Type Department Neyda Santiago RN new patient appointment 12/24/2018 Telephone [facility] [address] [place] [address] [address] [facility] III [place] [address] Social History Date Tobacco Use Types Packs/Day [...] Neyda Santiago RN - 12/24/2018 2:57 PM VEHICLE SERVICE ATTENDANT Placed call, left msg for pt regarding new pt appt 12/26/[address] Novoa CLE SERVICE ATTENDANT documented in this encounter Plan of Treatment Care Team Description Date Type Specialty Vikas Ross MD 5844 [facility] 230 [place] [address] [phone] 07/03/2019 Video Visit Cardiology Mayank Novoa DO 4321 [facility] 1200 [place] [address] [phone] 08/06/2019 Appointment Pain Medicine documented as of this encounter Visit Diagnoses Not on filedocumented in this encounter
--- OUTSIDE RECORDS SUMMARY | 2019-06-19 09:15 | XMS REPORT | Encounter Summary ---
Author Author [facility] Organization [facility] Address Unknown Phone Unavailable Care Team Providers Care Sales Store Checker Name Role Phone Reynaldo Falky PCP Encounter Details Care Team Description Date Type Department Vikas Ross MD [address] [facility] 230 [place] [address] [phone] 11/15/2018 Documentation [facility] [address] [facility] [address] [place] [address] Social History Date Tobacco Use Types Packs/Day [...] Date Type Specialty Vikas Ross MD 5844 [facility] 230 [place] [address] [phone] 07/03/2019 Video Visit Cardiology Mayank Novoa DO 4321 [facility] [address] [place] [address] [phone] 08/06/2019 Appointment Pain Medicine documented as of this encounter Visit Diagnoses Not on filedocumented in this encounter
--- OUTSIDE RECORDS SUMMARY | 2019-06-19 09:15 | XMS REPORT | Encounter Summary ---
Author Author [facility] Organization [facility] Address Unknown Phone Unavailable Care Team Providers Care Communications Specialist Name Role Phone Deya Shannon PCP Encounter Details Care Team Description Date Type Department Vikas Ross MD [address] [facility] [address] [place] [address] [phone] Specialty Pharmacy Refill Coordination 11/20/2018 Specialty [facility] [address] [place] [address] Social History Date Tobacco Use Types Packs/Day [...] dose 11/13; re fill due 11/27 11/26 [facility] OP Follow-up: 28 day(s) Blossom Calderon Specialty Parking Lot Signaler documented in this encounter Plan of Treatment Care Team Description Date Type Specialty Vikas oRss MD 5844 [facility] [address] [place] [address] [phone] 07/03/2019 Video Visit Cardiology Mayank Novoa DO 4321 [facility] [address] [place] [address] [phone] 08/06/2019 Appointment Pain Medicine documented as of this encounter Visit Diagnoses Not on filedocumented in this encounter
--- OUTSIDE RECORDS SUMMARY | 2019-06-19 09:15 | XMS REPORT | Encounter Summary ---
Author Author [facility] Organization [facility] Address Unknown Phone Unavailable Care Team Providers Care Eyeglass Lens Grinder Name Role Phone Shannon Falk PCP Reason for Visit * Reason Comments Low Back Pain * Pain Management (Routine) Referred By Contact Referred To Contact Status Reason Specialty Diagnoses / Procedures [facility] [address] [place] [address] Mayank Novoa DO [address] [place] [address] Closed Pain Management Diagnoses / Pain Medicine TPI/EXPECTING INJ P rocedures TRIGGER POINT INJECTION Encounter Details Care Team Description Date Type Department Mayank Novoa DO [address] [place] [address] [phone] Myofascial pain syndrome (Primary Dx); Spondylosis of thoracic region without myelopathy or radiculopathy; Rheumatoid arthritis, involving unspecified site, unspecified rheumatoid factor presence (HCC) 01/14/2019 [facility] al Encounter Pain Management Clinic [address] [place] [address] Social History Date Tobacco Use Types Packs/Day [...] Comments Vital Sign 155/98 01/14/2019 12:01 PM STEEL BARREL REAMER Blood Pressure 53 01/14/2019 12:01 PM STEEL BARREL REAMER Pulse 36.9 C (98.4 F) 01/14/2019 11:11 AM STEEL BARREL REAMER Temperature - - Respiratory Rate 95% 01/14/2019 12:01 PM STEEL BARREL REAMER Oxygen Saturation - - Inhaled Oxygen Concentration 87.1 kg (192 lb) 01/14/2019 11:11 AM STEEL BARREL REAMER Weight 162.6 cm (5' 4") 01/14/2019 11:11 AM STEEL BARREL REAMER Height 32.96 01/14/2019 11:11 AM STEEL BARREL REAMER Body Mass Index documented in this encounter Discharge Instructions * Patient Instructions* Neyda Santiago RN - 01/14/2019 11:53 AM STEEL BARREL REAMER Trigger Point and Blocks (Occipital, Axillary, Inguinal, [...] If you have any questions, please call [phone] or , Monday (8:00AM - 4:00 PM). On evenings, weekends, and holidays, please ca [phone] and ask for the oracle applications developer Anesthesiologist for pain management. L BARREL REAMER documented in this encounter Medications at Time [...] Mayank Novoa DO - 01/14/2019 11:52 AM STEEL BARREL REAMER Associated Order(s): Trigger point >=3 muscle groups [...] discharge instructions for the procedure were given. L BARREL REAMER documented in this encounter Plan of Treatment Care Team Description Date Type Specialty Vikas Ross MD 5844 [facility] [address] [place] [address] [phone] 07/03/2019 Video Visit Cardiology Mayank Novoa DO 4321 [facility] 1200 [place] [address] [phone] 08/06/2019 Appointment Pain Medicine documented as of this encounter Procedures Comments Procedure Name Priority Date/Time Associated Diag nosis TRIGGER POINT >=3 MUSCLE Routine 01/14/2019 Myofa scial pain syndrome GROUPS 11:52 AM STEEL BARREL REAMER Spondylosis of thor acic region without myelopathy or radiculopathy Rheumatoid arthritis, involving unspecified site, unspecified rheumatoid factor presence (HCC) documented in this encounter Results * Trigger point >=3 muscle groups (01/14/2019 11:52 AM STEEL BARREL REAMER) Narrative Performed At Mayank Novoa DO 01/14/2019 [...] Medication Order MAR Action 01/14/2019 11:42 AM STEEL BARREL REAMER 6 mL bupivacaine (pf) (MARCAINE) 0.5 % (5 Given mg/mL) injection Code/trauma/sedation medication, Starting Mon01/14/19 at 1142 01/14/2019 11:42 AM STEEL BARREL REAMER 40 mg methylPREDNISolone acetate (DEPO-MEDROL) Given 40 mg/mL injection Code/trauma/sedation medication, Starting Mon01/14/19 at 1142 documented in this encounter
--- OUTSIDE RECORDS SUMMARY | 2019-06-19 09:15 | XMS REPORT | Encounter Summary ---
Author Author [facility] Organization [facility] Address Unknown Phone Unavailable Care Team Providers Care Meter Reader Inspector Name Role Phone Shannon Falk PCP Reason for Referral * Consultation (Routine) Referred By Contact Referred To Contact Status Reason Specialty Diagnoses / Procedures Yobany Riddle PA-C [address] [facility] [address] [place] [address] [facility] [address] [place] [address] Closed Specialty Services Pain Medicine Diagnoses Required Low back pain Reason for Visit * Reason Comments Upper Back Pain Mid Back Pain * Consultation (Routine) Referred By Contact Referred To Contact Status Reason Specialty Diagnoses / Procedures Yobany Riddle PA-C 43[address] [facility] [address] [place] [address] [facility] [address] [place] [address] Closed Specialty Services Pain Medicine Diagnoses Required Low back pain Encounter Details Care Team Description Date Type Department Mayank Novoa DO 4321 [facility] [address] [place] [address] [phone] Myofascial pain syndrome (Primary Dx); Spondylosis of thoracic region without myelopathy or radiculopathy; Rheumatoid arthritis, involving unspecified site, unspecified rheumatoid factor presence (HCC); Low back pain 12/26/2018 [facility] al Encounter Pain Management Clinic [address] [place] [address] Social History Date Tobacco Use Types Packs/Day [...] Comments Vital Sign 144/92 12/26/2018 11:00 AM FAMILY SOCIOLOGIST notifi ed of BP Blood Pressure 51 12/26/2018 11:00 AM FAMILY SOCIOLOGIST Pulse - - Temperature - - Respiratory Rate 100% 12/26/2018 11:00 AM FAMILY SOCIOLOGIST Oxygen Saturation - - Inhaled Oxygen Concentration 85.5 kg (188 lb 8 oz) 12/26/2018 11:00 AM FAMILY SOCIOLOGIST Weight 162.6 cm (5' 4") 12/26/2018 11:00 AM FAMILY SOCIOLOGIST Height 32.36 12/26/2018 11:00 AM FAMILY SOCIOLOGIST Body Mass Index documented in this encounter Discharge Instructions * Patient Instructions* Neyda Santiago RN - 12/26/2018 11:59 AM FAMILY SOCIOLOGIST TRIGGER POINT INJECTION PRE-INSTRUCTIONS Arrive 15 minutes before your scheduled appointment time. Bring a copy of your health insurance card and drivers license. Bring a list of your medications including the dose and how often you take it. Please call us ([phone]) if you are on an antibiotic or if you have had a cold, cough, fever, or sore throat. If you are diabetic please check your blood sugar prior to your appointment. If your BS is over 250 please call before you come in for your procedure. LY SOCIOLOGIST documented in this encounter Medications at Time [...] Mayank Novoa DO - 12/26/2018 11:34 AM FAMILY SOCIOLOGIST [facility] NEW PATIENT HISTORY AND PHYSICAL NAME: Hari Obrien CPI: [id number] AGE: 68 y.o. : 1950 Date of [...] (BMI 30.0-34.9), Osteoarthriti s, RA (rheumatoid arthritis) ([facility]), Radicular leg pain (05/25/2015), Rheumatoid ar thritis of spine ([facility]), Sciatica, and Urinary incontinence. She presents for [...] back pain. Denies radicu lar pain. Can't scrap picker heavy things at the end of [...] INTERBODY SPINE; Surgeon: Yue Abdi MD; Location: [facility] OR; Service: Neurosurgery; Laterality: Le ft; HYSTERECTOMY [...] muscle pain, muscle weakness, back pain, leg aircraft shipping checker mping, neck pain, bladder incontinence, loss of balance. Family History: Family History Problem Relation Age of Onset Hyperlipidemia Mother Hyperlipidemia Father COPD Father Stroke Father Heart attack Father Heart attack Brother Social History: Lives [place] [facility] [address] Social History Socioeconomic History Marital status: Spouse [...] file Gets together: Not on file Attends adventist service: Not on file Active member of [...] Not on file Allergies: Allergies Allergen Reactions Qxepoot-Dwo-Fkl Reductase Inhibitors Myalgia Sulfa (Sulfonamide Antibiotics) Hives [...] well-nourished 68 y.o. female in no ac [place] distress. HEENT: Head is normocephalic and atraumatic. [...] HARI OBRIEN Sex#: F # 1950 Abdirizak#: [id number] Location: [facility] NI OR NONE Procedure Requested: [id number] CT LUMBAR SPINE WO CONTRAST Reason for [...] full details regarding real-time findings. READING SITE: [facility] Imaging Results for orders placed in visit on 12/07/18 XR Lumbar Spine 2 or 3 views Narrative Patient: HARI OBRIEN Sex#: F #: 1950 Abdirizak#: [id number] Location: [facility] XRAY Procedure Requested: [id number] XR LUMBAR SPINE 2 OR 3 VIEWS [...] the prior radiograph on 09/21/2015. READING SITE: [employer] [place] Getting-in I have personally reviewed these images and [...] Obesity (BMI 30.0-34.9), Osteoarthritis, RA (rheumatoid arthritis) ([facility]), Radicular leg pain (05/25/2015), Rheumatoid arthrit is of spine ([facility]), Sciatica, and Urinary incontinence. She presents for [...] answered. Mayank Novoa DO Interventional Pain Medicine [facility] LY SOCIOLOGIST documented in this encounter Plan of Treatment Care Team Description Date Type Specialty Vikas Ross MD [address] [facility] [address] [place] [address] [phone] 07/03/2019 Video Visit Cardiology Mayank Novoa DO 4321 [facility] [address] [place] [address] [phone] 08/06/2019 Appointment Pain Medicine Order Schedule Name [...]
--- OUTSIDE RECORDS SUMMARY | 2019-06-19 09:16 | XMS REPORT | Encounter Summary ---
Author Author [facility] Organization [facility] Address Unknown Phone Unavailable Care Team Providers Care Events Associate Name Role Phone Shannon Falk PCP Reason for Visit * Reason Comments Leg Swelling Leg pain Leg Restlessness Encounter Details Care Team Description Date Type Department Emily Bradshaw, WATER WELL DRILLER [address] [facility] [address] [place], [place] [id number] Edema, unspecified type (Primary Dx); Cramp in [facility] [facility] [address] [place] [address] Social History Date Tobacco Use Types Packs/Day [...] Bradshaw APRN - 10/30/2017 10:18 AM CDT [facility] Appointment Date: 10/30/2017 Shannon Falk MD [address] [facility] [address] RE: Dalila Hameed : 1950 Visit provider: [...] SPINE; Surgeon: Yue Abdi MD; Location: [facility]; Service: Neurosurgery; Laterality: Le ft; HYSTERECTOMY MARTY [...] Date Type Specialty Vikas Ross MD [address] [facility] 230 [place] [address] [phone] 07/03/2019 Video Visit Cardiology Mayank Novoa, 4321 [facility] [address] [place] [address] [phone] 08/06/2019 Appointment Pain Medicine documented as of this encounter Visit Diagnoses Diagnosis Edema, unspecified type Cramp in limb Cramp of limb documented in this encounter
--- OUTSIDE RECORDS SUMMARY | 2019-06-19 09:16 | XMS REPORT | Encounter Summary ---
Author Author [facility] Organization [facility] Address Unknown Phone Unavailable Care Team Providers Care Steam Press Tender Name Role Phone Shannon Falk PCP Reason for Visit * HH Auth Cert Referred By Contact Referred To Contact Status Reason Specialty Diagnoses / Procedures Encounter Details Care Team Description Date Type Department Jenny Covarrubias, PT PT OASIS DISCHARGE 03/12/2018 Home Care Visit [facility] Home Care and [facility] [address] [facility] [address] [place] [address] Social History Date Tobacco Use [...] Comments Vital Sign 120/64 03/12/2018 10:57 AM BASS SINGER Blood Pressure 72 03/12/2018 10:57 AM BASS SINGER Pulse - - Temperature - - Respiratory Rate 97% 03/12/2018 10:57 AM BASS SINGER Oxygen Saturation - - Inhaled Oxygen Concentration - - Weight - - Height - - Body Mass Index documented in this encounter Plan of Treatment Care Team Description Date Type Specialty Vikas Ross MD 5844 [facility] [address] [place] [address] [phone] 07/03/2019 [place] [address] [place] [address] [phone] 08/06/2019 Appointment Pain Medicine documented as of this encounter Visit Diagnoses Not on filedocumented in this encounter Home Health Visit - Care Plan Visit Type - PT OASIS Discharge Discipline - Physical Therapy Status Goals Interventions Problem Descriptio Start Date n Resolved on 03/12/2018 - 2 problem interventions scheduled/documented in this visit Current Vaccines 03/03/2018 Disciplines: Jail, Physical Therapy, Occupational Therapy, Speech Language Pathology, [...] visit Medication Management Management 03/03/2018 Disciplines: and Jail, Physical Education Therapy, Occupational of All Therapy, Speech Language Home Pathology, Home Health Front Office Supervisor, Medical Social s Work, Music Therapist, Including Dietitian, Nurse Prescripti Practioner on and OTC. Resolved on 03/12/2018 - 1 problem intervention scheduled/documented in this visit Medication Management Management 03/03/2018 Disciplines: and Jail, Physical Education Therapy, Occupational of All Therapy, Speech Language Home Pathology, Home Health Front Office Supervisor, Medical Social s Work, Music Therapist, Including Dietitian, Nurse Prescripti Practioner on and OTC. Resolved on 03/12/2018 - 2 problem interventions scheduled/documented in this visit Pain Management Patient 03/03/2018 Disciplines: has pain. Jail, Physical Therapy, Occupational Therapy, Speech Language Pathology, Home Health Aide, Medical Social Work, Music Therapist, Dietitian, Nurse Practioner Resolved on 03/12/2018 - 1 problem intervention scheduled/documented in this visit Patient Strengths, Goals, Strengths, and Care Preferences Goals, Disciplines: Care Jail, Physical Preference Therapy, Occupational s Therapy, Speech Language Pathology, Home Health Aide, Medical Social Work, Music Therapist, Dietitian, Nurse Practioner Resolved on 03/12/2018 - 1 problem intervention scheduled/documented in this visit Prevention Of Skin Patient at 03/03/2018 Breakdown-Pressure Ulcer risk for Disciplines: pressure Jail, Physical ulcers. Therapy, Occupational Therapy, Speech Language [...] discuss ongoing needs with Dr. [facility] at [facility] tomorrow. Instruct On High Risk Problem: [...] assistance and be able to return hometo [place] . Patient Goals Problem: Completed Description: Patient Patient stated goals: Strengths, increase strength and ROM Goals, and R Knee, managing symptoms Care at home, bathe and dress Preference without assistance and be s able to return hometo [place] Assessed for pressure ulcer. Risk resolved as mobility increased. Assess/Instruct Pressure Problem: Completed Ulcer Prevention Prevention Description: Of Skin Assess/instruct in Breakdown- interventions to prevent Pressure pressure ulcers. Ulcer documented in this encounter
--- OUTSIDE RECORDS SUMMARY | 2019-06-19 09:16 | XMS REPORT | Encounter Summary ---
Author Author [facility] Organization [facility] Address Unknown Phone Unavailable Care Team Providers Care Pivot Maker Name Role Phone Shannon Falk PCP Reason for Visit * Reason Comments Medication Refill Encounter Details Care Team Description Date Type Department Romeo Pitts, senior php web developer Refill 10/16/2017 Refill [facility] [address] [facility] [address] [place] [address] Social History Date Tobacco Use Types Packs/Day [...] Ross MD 5844 [facility] 230 [place] [address] [phone] 07/03/2019 Video Visit Cardiology Mayank Novoa, 4[address] [facility] [address] [place] [address] [phone] 08/06/2019 Appointment Pain Medicine Order Schedule Name Type Priority Associated Diag noses Expected: 12/15/2017, Expires: 9 Basic Metabolic Panel Lab Routine [facility] hypertension Edema of lower extremity documented as of this encounter Visit Diagnoses Diagnosis Essential hypertension Unspecified essential hypertension Edema of lower extremity documented in this encounter
--- OUTSIDE RECORDS SUMMARY | 2019-06-19 09:16 | XMS REPORT | Encounter Summary ---
Author Author [facility] Organization [facility] Address Unknown Phone Unavailable Care Team Providers Care Wire Frame Lampshade Maker Name Role Phone [place], Shannon PCP Encounter Details Care Team Description Date Type Department Vikas Ross MD [address] [facility] 230 [place] [address] [phone] 11/08/2017 Documentation [facility] [address] [facility] [address] [place] [address] Social History Date Tobacco Use Types Packs/Day [...] Type Specialty Vikas Ross MD [address] [facility] 230 [place] [address] [phone] 07/03/2019 Video Visit Cardiology Mayank Novoa DO 4321 [facility] 1200 [place] [address] [phone] 08/06/2019 Appointment Pain Medicine documented as of this encounter Visit Diagnoses Not on filedocumented in this encounter
--- OUTSIDE RECORDS SUMMARY | 2019-06-19 09:16 | XMS REPORT | Encounter Summary ---
Author Author [facility] Organization [facility] Address Unknown Phone Unavailable Care Team Providers Care Sales Rep Name Role Phone Reynaldo Falky PCP Encounter Details Care Team Description Date Type Department Vikas Ross MD [address] [place] [address] [place] [address] [phone] 10/17/2018 Documentation [facility] [address] [facility] [address] [place] [address] Social History Date Tobacco Use Types Packs/Day [...] MD [address] [place] [address] [place] [address] [phone] 07/03/2019 Video Visit Cardiology Mayank Novoa DO 4[address] [facility] [address] [place] [address] [phone] 08/06/2019 Appointment Pain Medicine documented as of this encounter Visit Diagnoses Not on filedocumented in this encounter
--- OUTSIDE RECORDS SUMMARY | 2019-06-19 09:16 | XMS REPORT | Encounter Summary ---
Author Author [facility] Organization [facility] Address Unknown Phone Unavailable Care Team Providers Care Registrar Assistant Name Role Phone Shannon Falk PCP Encounter Details Care Team Description Date Type Department Werner Ramirez TELEPHONE ENCOUNTER 03/02/2018 Home Care Visit [facility] Home Care and [facility] [address] [facility] [address] [place] [address] Social History Date Tobacco Use [...] Date Type Specialty Vikas Ross MD 58[address] [facility] 230 [place] [address] [phone] 07/03/2019 Video Visit Cardiology Mayank Novoa DO 4321 [facility] 1200 [place] [address] [phone] 08/06/2019 Appointment Pain Medicine documented as of this encounter Visit Diagnoses Not on filedocumented in this encounter
--- OUTSIDE RECORDS SUMMARY | 2019-06-19 09:16 | XMS REPORT | Encounter Summary ---
Author Author [facility] Organization [facility] Address Unknown Phone Unavailable Care Team Providers Care Aviation Tactical Readiness Officer Name Role Phone Shannon Falk PCP Reason for Referral * Diagnostic Imaging (Routine) Referred By Contact Referred To Contact Status Reason Specialty Diagnoses / Procedures Vikas Ross MD [address] [place] [address] [facility] [address] [place] [address] Closed Radiology Diagnoses Mixed hyperlipidemia Edema, unspecified type P rocedures US Vein Mapping w Duplex lower extremity bilat complete Reason for Visit * Diagnostic Imaging (Routine) Referred By Contact Referred To Contact Status Reason Specialty Diagnoses / Procedures Vikas Ross MD [address] [place] [address] [place] [address] [facility] [address] [place] [address] Closed Radiology Diagnoses Mixed hyperlipidemia Edema, unspecified type P rocedures US Vein Mapping w Duplex lower extremity bilat complete Encounter Details Care Team Description Date Type Department Emily Bradshaw APRN [address] [place] [address] [place] [address] [phone] Mixed hyperlipidemia; Edema, unspecified type 10/30/2017 [facility] al Encounter [facility] [address] [place] [address] Social History Date Tobacco Use Types Packs/Day [...] Date Type Specialty Vikas Ross MD [address] [facility] [address] [place] [address] [phone] 07/03/2019 Video Visit Cardiology Mayank Novoa DO 4321 [facility] [address] [place] [address] [phone] 08/06/2019 Appointment Pain Medicine documented as of [...] grayscale and color Doppler images on P retsCloud archive. NOTE: Parts of this report were generated wit WholeWorldBand voice recognition software. J Digit Imagin2010;24(4):724-8. Narrative Performed At Patient: HARI OBRIEN Sex#: F # 1950 Abdirizak#: [id number] Location: [facility] US Procedure Requested: [id number] US VEIN MAPPING W DUPLEX LOWER EXTREMITY BILAT COMPLETE Reason for Exam: Mixed hyperlipidemia Exam Ordered: 10/30/2017 09 03 Exam Date/Time: 10/30/2017 101 1 Begin exam date/time: 10/30/2017 090 7 US VEIN MAPPING W DUPLEX LOWER EXTREMIT Y BILAT COMPLETE Indication: Mixed hyperlipidemia Edema, unspecified type READING SITE: [facility] Grayscale and duplex venous vein map ping of bilateral legs was performed. Procedure Note Interface, Rad Results In - 10/30/2017 11:50 AM CDT Patient: HARI OBRIEN Sex#: F # 1950 Abdirizak#: [id number] Location: [facility] US Procedure Requested: [id number] US VEIN MAPPING W DUPLEX LOWER EXTREMITY BILAT COMPLETE Reason for Exam: Mixed hyperlipidemia Exam Ordered: 10/30/2017 0903 Exam Date/Time: 10/30/2017 1011 Begin exam date/time: 10/30/2017 0907 US VEIN MAPPING W DUPLEX LOWER EXTREMITY BILAT COMPLETE Indication: Mixed hyperlipidemia Edema, unspecified type READING SITE: [facility] Grayscale and duplex venous vein mapping of [...]
--- OUTSIDE RECORDS SUMMARY | 2019-06-19 09:16 | XMS REPORT | Encounter Summary ---
Author Author [facility] Organization [facility] Address Unknown Phone Unavailable Care Team Providers Care Freight Solicitor Name Role Phone Shannon Falk PCP Reason for Visit * HH Auth Cert Referred By Contact Referred To Contact Status Reason Specialty Diagnoses / Procedures Encounter Details Care Team Description Date Type Department Jenny Covarrubias, PT PT HOME VISIT 03/06/2018 Home Care Visit [facility] [address] [facility] [address] [place] [address] Social History Date Tobacco Use [...] Comments Vital Sign 140/80 03/06/2018 2:57 PM ELECTRONIC COMPONENTS ASSEMBLER Blood Pressure 78 03/06/2018 2:57 PM ELECTRONIC COMPONENTS ASSEMBLER Pulse - - Temperature - - Respiratory Rate 97% 03/06/2018 2:57 PM ELECTRONIC COMPONENTS ASSEMBLER Oxygen Saturation - - Inhaled Oxygen Concentration - - Weight - - Height - - Body Mass Index documented in this encounter Plan of Treatment Care Team Description Date Type Specialty Vikas Ross MD [address] [facility] 230 [place] [address] [phone] 07/03/2019 Video Visit Cardiology Mayank Novoa DO [address] [address] [phone] 08/06/2019 Appointment Pain Medicine documented as of this encounter Visit Diagnoses Not on filedocumented in this encounter Home Health Visit - Care Plan Visit Type - PT Home Visit Discipline - Physical Therapy Status Goals Interventions Problem Descriptio Start Date n Active - 1 problem intervention scheduled/documented in this visit Advance Directives Advance 03/03/2018 Disciplines: Directives Prison, Physical Therapy, Occupational Therapy, Speech Language Pathology, [...] visit Medication Management Management 03/03/2018 Disciplines: and Prison, Physical Education Therapy, Occupational of All Therapy, Speech Language Home Pathology, Home Health Medical Receptionist Medical Assistant, Medical Social s Work, Music Therapist, Including Dietitian, Nurse Prescripti Practioner on and OTC. Active - 2 problem interventions scheduled/documented in this visit Pain Management Patient 03/03/2018 Disciplines: has pain. Prison, Physical Therapy, Occupational Therapy, Speech Language Pathology, Home Health Aide, Medical Social Work, Music Therapist, Dietitian, Nurse Practioner Active - 1 problem intervention scheduled/documented in this visit Patient Strengths, Goals, Strengths, and Care Preferences Goals, Disciplines: Care Prison, Physical Preference Therapy, Occupational s Therapy, Speech Language Pathology, Home Health Aide, Medical Social Work, Music Therapist, Dietitian, Nurse Practioner Active - 1 problem intervention scheduled/documented in this visit Prevention Of Skin Patient at 03/03/2018 Breakdown-Pressure Ulcer risk for Disciplines: pressure Prison, Physical ulcers. Therapy, Occupational Therapy, Speech Language [...] Patient instructed in and performed ambulation 100' [id number] using front wheel walker with stand by [...] and be s able to return hometo [place] risk reduced as mobility improved Assess/Instruct Pressure Problem: Completed Ulcer Prevention Prevention Description: Of Skin Assess/instruct in Breakdown- interventions to prevent Pressure pressure ulcers. Ulcer documented in this encounter
--- OUTSIDE RECORDS SUMMARY | 2019-06-19 09:16 | XMS REPORT | Encounter Summary ---
Author Author [facility] Organization [facility] Address Unknown Phone Unavailable Care Team Providers Care Coffee Plantation Worker Name Role Phone Shannon Falk PCP Encounter Details Care Team Description Date Type Department Emily Bradshaw APRN [address] [facility] [address] [place] [place], [place] [id number] 10/30/2017 [facility] [address] [facility] [place] [address] Social History Date Tobacco Use Types Packs/Day [...] MD 5844 [facility] 230 [place] [address] [phone] 07/03/2019 Video Visit Cardiology Mayank Novoa DO 4321 [facility] [address] [place] [address] [phone] 08/06/2019 Appointment Pain Medicine documented as of this encounter Visit Diagnoses Not on filedocumented in this encounter
--- OUTSIDE RECORDS SUMMARY | 2019-06-19 09:16 | XMS REPORT | Encounter Summary ---
Author Author [facility] Address Unknown Phone Unavailable Care Team Providers Care Sales Representative [facility] Name Role Phone Shannon Falk PCP Reason for Visit * HH Auth Cert Referred By Contact Referred To Contact Status Reason Specialty Diagnoses / Procedures Encounter Details Care Team Description Date Type Department Jenny Boucher RN MED ED REVIEW NOTE 03/08/2018 Home Care Visit [facility] Home Care and [place] [address] [facility] [address] [place] [address] Social History Date Tobacco Use [...] Date Type Specialty Vikas Ross MD [address] [facility] [address] [place] [address] [phone] 07/03/2019 Video Visit Cardiology Mayank Novoa DO [address] [facility] [address] [place] [address] [phone] 08/06/2019 Appointment Pain Medicine documented as of this encounter Visit Diagnoses Not on filedocumented in this encounter Home Health Visit - Care Plan Visit Type - Med Ed Review Note Discipline - Intermediate Status Goals Interventions Problem Descriptio Start Date n Active - 1 problem intervention scheduled/documented in this visit Advance Directives Advance 03/03/2018 Disciplines: Directives Intermediate, Physical Therapy, Occupational Therapy, Speech Language Pathology, Home Health Aide, Medical Social Work, Music Therapist, Dietitian, Nurse Practioner Active - 2 problem interventions scheduled/documented in this visit Medication Management Management 03/03/2018 Disciplines: and Intermediate, Physical Education Therapy, Occupational of All Therapy, Speech Language Home Pathology, Home Health Ingot Stripper, Medical Social s Work, Music Therapist, Including Dietitian, Nurse Prescripti Practioner on and OTC. Active - 1 problem intervention scheduled/documented in this visit Medication Management Management 03/03/2018 Disciplines: and Intermediate, Physical Education Therapy, Occupational of All Therapy, Speech Language Home Pathology, Home Health Ingot Stripper, Medical Social s Work, Music Therapist, Including Dietitian, Nurse Prescripti Practioner on and OTC. Active - 2 problem interventions scheduled/documented in this visit Pain Management Patient 03/03/2018 Disciplines: has pain. Intermediate, Physical Therapy, Occupational Therapy, Speech Language Pathology, Home Health Aide, Medical Social Work, Music Therapist, Dietitian, Nurse Practioner Active - 1 problem intervention scheduled/documented in this visit Patient Strengths, Goals, Strengths, and Care Preferences Goals, Disciplines: Care Intermediate, Physical Preference Therapy, Occupational s Therapy, Speech [...] and be s able to return hometo [place] documented in this encounter Home Health Visit [...]
--- OUTSIDE RECORDS SUMMARY | 2019-06-19 09:16 | XMS REPORT | Encounter Summary ---
Author Author [facility] Organization [facility] Address Unknown Phone Unavailable Care Team Providers Care Industry Segment Specialist Name Role Phone Shannon Falk PCP Reason for Referral * Consultation (Routine) Referred By Contact Referred To Contact Status Reason Specialty Diagnoses / Procedures Vikas Ross MD [address] [place] [address] [facility] [address] [place] [address] Closed Service Not Cardiology Diagnoses Available In-House Mixed hyperlipidemia * Diagnostic Imaging (Routine) Referred By Contact Referred To Contact Status Reason Specialty Diagnoses / Procedures Vikas Ross MD [address] [place] [address] [facility] [address] [facility], [address] [place] [address] Closed Radiology Diagnoses Edema of lower extremity P rocedures US Vein Mapping w Duplex lower extremity bilat complete * Consultation (Routine) Referred By Contact Referred To Contact Status Reason Specialty Diagnoses / Procedures Vikas Ross MD [address] [place] [address] [facility] [address] [place] [address] Closed Cardiology Diagnoses Edema of lower extremity * Diagnostic Imaging (Routine) Referred By Contact Referred To Contact Status Reason Specialty Diagnoses / Procedures Vikas Ross MD [address] [place] [address] Closed Diagnoses Essential hypertension Mixed hyperlipidemia Edema of lower extremity P rocedures Electrocardiogram (ECG) Reason for Visit * Reason Comments bilateral lower extremity edema essential hypertension Encounter Details Care Team Description Date Type Department Vikas Ross MD [address] [place] [address] [phone] Essential hypertension (Primary Dx); Mixed hyperlipidemia; Edema of lower extremity 10/31/2018 Office Visit [facility] [address] [place] [address] Social History Date Tobacco Use Types Packs/Day [...] months. Please call the Nurse Line at [phone] ([facility] Nurse Team). with any questions or concerns. For medication refill needs, please first contact your pharmacy. For any [facility] scheduling questions, please stephen andi . At [facility], high quality patient care is our [...] Ross MD - 10/31/2018 10:40 AM CDT [facility] Mamadou Appointment Date: 10/31/2018 Shannon Falk MD [address] [facility] [address] RE: Dalila Obrien : 1950 Visit provider: [...] leg pain RADICULAR PAIN RA (rheumatoid arthritis) ([facility]) RHEUMATOID ARTHRITIS Neuropathy NEUROPATHY Hypothyroidism HYPOTHYROIDISM Essential [...] 30.0-34.9) Osteoarthritis HANDS, HIPS RA (rheumatoid arthritis) ([facility]) APPROX 10 YRS Radicular leg pain 05/25/2015 Rheumatoid arthritis of spine ([facility]) CERVICAL SPINE; HAS FULL ROM WITH NECK Sciatica DOWN LEFT LEG Urinary incontinence STRESS INCONTINENCE Past Surgical History: Procedure Laterality Date BUNIONECTOMY Right FRACTURE SURGERY Left CLAVICAL FX FUSION, SPINE, LUMBAR, INTERBODY, TRANSFORAMINAL APPROACH Left 07/28/2015 Procedure: L4-L5 FUSION TRANSFORAMINAL LUMBAR INTERBODY SPINE; Surgeon: Yue Abdi MD; Location: [facility]; Service: Neurosurgery; Laterality: Le ft; HYSTERECTOMY [...] time. She will follow up with our [facility] and vein clinic as scheduled. [...] Date Type Specialty Vikas Ross MD [address] [place] [address] [phone] 07/03/2019 Video Visit Cardiology Mayank Novoa, [address] [address] [phone] 08/06/2019 Appointment Pain Medicine Order Schedule Name [...] lower extremity bilat complete (01/07/2019 11:59 AM BRASS CUTTER) Specimen Impressions Performed At FINDINGS/IMPRESSION: KALIE RIGHT [...] OBRIEN Sex#: F #: [id number] Abdirizak# : [id number] Location: [facility] US Procedure Requested: [id number] US VEIN MAPPING W DUPLEX LOWER EXTREMITY BILAT COMPLETE Reason for Exam: Edema of lower extre mity Exam Ordered: 01/07/2019 1 037 Exam Date/Time: 01/07/2019 11 59 Begin exam date/time: 01/07/2019 10 49 READING SITE: [facility] VEIN MAPPING W DUPLEX LOWER EXTREMIT [...] Rad Results In - 01/09/2019 2:08 PM BRASS CUTTER Patient: DALILA OBRIEN Sex#: F #: [id number] Abdirizak#: [id number] Location: [facility] US Procedure Requested: [id number] US VEIN MAPPING W DUPLEX LOWER EXTREMITY BILAT COMPLETE Reason for Exam: Edema of lower extremity Exam Ordered: 01/07/2019 1037 Exam Date/Time: 01/07/2019 1159 Begin exam date/time: 01/07/2019 1049 READING SITE: [facility] VEIN MAPPING W DUPLEX LOWER EXTREMITY [...] diagram for complete details. Performing Organization Address City/State/[facility] JADE * Electrocardiogram (ECG) (10/31/2018 10:03 AM CDT) QRSd 94 [facility] QT 424 [facility] QTC 410 [facility] ECGHR 56 [facility] ECGPR 180 [facility] Specimen Narrative Performed At [facility] [place] Test Date: 2018-10-31 Pat Name: DALILA THOMPSONB Department: [facility] Room: Gender: Female [employer] Architect: [id number] : 1950 Requested By: VIKAS ROSS Order Number: [id number] Reading MD: Vikas Ross Measurements Intervals [place] Rate: 56 P: 31 DC: 180 QRS: 56 QRSD: 94 T: 51 QT: 424 QTc: 410 Interpretive Statements SINUS RHYTHM Electronically Signed On 11-02-2018 7:41 :43 CDT by Vikas Ross Procedure Note Interface, External Ris In - 11/02/2018 7:41 AM CDT [facility] - Mamadou Test Date: 2018-10-31 Pat Name: DALILA OBRIEN Department: [facility] Room: Gender: Female [employer] Architect: [id number] : 1950 Requested By: VIKAS ROSS Order Number: [id number] Reading MD: Vikas Ross Measurements Intervals [place] Rate: 56 P: 31 DC: 180 QRS: 56 QRSD: 94 T: 51 [...]
--- OUTSIDE RECORDS SUMMARY | 2019-06-19 09:16 | XMS REPORT | Encounter Summary ---
Author Author [facility] Organization [facility] Address Unknown Phone Unavailable Care Team Providers Care Camp Advisor Name Role Phone Shannon Falk PCP Reason for Visit * HH Auth Cert Referred By Contact Referred To Contact Status Reason Specialty Diagnoses / Procedures Encounter Details Care Team Description Date Type Department Jenny Covarrubias, PT PT OASIS START OF CARE 03/03/2018 Home Care Visit [facility] Home Care and [facility] [address] [facility] [address] [place] [address] Social History Date Tobacco Use [...] Comments Vital Sign 150/78 03/03/2018 12:54 PM CALCULATOR OPERATOR Blood Pressure 72 03/03/2018 12:54 PM CALCULATOR OPERATOR Pulse 36.7 C (98.1 F) 03/03/2018 12:54 PM CALCULATOR OPERATOR Temperature - - Respiratory Rate 96% 03/03/2018 12:54 PM CALCULATOR OPERATOR Oxygen Saturation - - Inhaled Oxygen Concentration - - Weight - - Height - - Body Mass Index documented in this encounter Plan of Treatment Care Team Description Date Type Specialty Vikas Ross MD [address] [place] [address] [phone] 07/03/2019 Video Visit Cardiology Mayank Novoa [address] [address] [phone] 08/06/2019 Appointment Pain Medicine documented as of this encounter Visit Diagnoses Not on filedocumented in this encounter Home Health Visit - Care Plan Visit Type - PT OASIS Start Of Care Discipline - Physical Therapy Status Goals Interventions Problem Descriptio Start Date n Active - 1 problem intervention scheduled/documented in this visit Advance Directives Advance 03/03/2018 Disciplines: Directives Custodial, Physical Therapy, Occupational Therapy, Speech Language Pathology, [...] visit Medication Management Management 03/03/2018 Disciplines: and Custodial, Physical Education Therapy, Occupational of All Therapy, Speech Language Home Pathology, Home Health Aerial Photographer, Medical Social s Work, Music Therapist, Including Dietitian, Nurse Prescripti Practioner on and OTC. Active - 1 problem intervention scheduled/documented in this visit Medication Management Management 03/03/2018 Disciplines: and Custodial, Physical Education Therapy, Occupational of All Therapy, Speech Language Home Pathology, Home Health Aerial Photographer, Medical Social s Work, Music Therapist, Including Dietitian, Nurse Prescripti Practioner on and OTC. Active - 2 problem interventions scheduled/documented in this visit Pain Management Patient 03/03/2018 Disciplines: has pain. Custodial, Physical Therapy, Occupational Therapy, Speech Language Pathology, Home Health Aide, Medical Social Work, Music Therapist, Dietitian, Nurse Practioner Active - 1 problem intervention scheduled/documented in this visit Patient Financial 03/03/2018 Responsibility Disciplines: Custodial, Physical Therapy, Occupational Therapy, Speech Language Pathology, Home Health Aide, Medical Social Work, Music Therapist, Dietitian, Nurse Practioner Active - 1 problem intervention scheduled/documented in this visit Patient Strengths, Goals, Strengths, and Care Preferences Goals, Disciplines: Care Custodial, Physical Preference Therapy, Occupational s Therapy, Speech Language Pathology, Home Health Aide, Medical Social Work, Music Therapist, Dietitian, Nurse Practioner Active - 2 problem interventions scheduled/documented in this visit Patient/Provider 03/03/2018 Communication and Provision of Supplies Disciplines: Custodial, Physical Therapy, Occupational Therapy, Speech Language Pathology, Home Health Aide, Medical Social Work, Music Therapist, Dietitian, Nurse Practioner Active - 1 problem intervention scheduled/documented in this visit Prevention Of Skin Patient at 03/03/2018 Breakdown-Pressure Ulcer risk for Disciplines: pressure Custodial, Physical ulcers. Therapy, Occupational Therapy, Speech Language Pathology, Home Health Aide, Medical Social Work, Music Therapist, Dietitian, Nurse Practioner Active - 1 problem intervention scheduled/documented in this visit Risk Of Falls Patient at 03/03/2018 Disciplines: risk for Custodial, Physical falls. Therapy, Occupational Therapy, Speech Language Pathology, Home Health Aide, Medical Social Work, Music Therapist, Dietitian, Nurse Practioner Variance Visit Notes Intervention Associated Status Problem/Go al None in place. Edu material provided Advance Directives Problem: Completed Requested/Obtained Advance Directives Patient instructed in and performed ambulation 30' x1, 50' [id number] using front wheel walker with stand by [...] and be s able to return hometo [place] Plan of Care communicated to Dr. Branham [...] Di agnosis in M1021 / M1023. Review [place] for completeness. To acknowledge/agree to these changes, [...]
--- OUTSIDE RECORDS SUMMARY | 2019-06-19 09:16 | XMS REPORT | Encounter Summary ---
Author Author [facility] Organization [facility] Address Unknown Phone Unavailable Care Team Providers Care Recreation Activities Coordinator Name Role Phone Shannon Falk PCP Encounter Details Care Team Description Date Type Department Shannon Falk MD [address] [facility] [place] [address] Hypertension, unspecified type; Hypothyroidism, unspecified type 09/29/2017 Lab [facility] [address] [facility] [address] [place], [place] [id number] Social History Date Tobacco Use Types Packs/Day [...] Type Specialty Vikas Ross MD [address] [facility] [address] [place] [address] [phone] 07/03/2019 Video Visit Cardiology Mayank Novoa DO [address] [facility] [address] [place] [address] [phone] 08/06/2019 Appointment Pain Medicine documented as of [...] CDT) Sodium 139 133 - 147 MEQ/L [facility] Potassium 4.7 3.5 - 5.3 MEQ/L [facility] Chloride 99 96 - 112 MEQ/L [facility] Carbon Dioxide 29 20 - 32 MEQ/L [facility] Anion Gap 11 5 - 17 [facility] Calcium 10.1 8.4 - 10.5 mg/dL [facility] Glucose 124 (H) 70 - 100 mg/dL [facility] Protein Total 7.4 6.0 - 8.2 g/dL [facility] Serum [facility] Albumin 4.2 3.5 - 5.0 g/dL [facility] Alkaline 99 42 - 140 IU/L [facility] Phosphatase [facility] Alanine 19Comment: ALT reference range 0 - 34 IU/L [facility] Aminotransferas changed on 08-29-2017 [facility] Aspartate 31 15 - 46 IU/L [facility] Aminotransferas [facility] Bilirubin Total 0.6 0.2 - 1.3 mg/dL [facility] Blood Urea 22 7 - 26 mg/dL [facility] Nitrogen [facility] Creatinine 0.9 0.4 - 1.1 mg/dL [facility] eGFR Female AA 75 60 - 200 [facility] Comment: REGIONAL Chronic Kidney Disease less LABORATORIES than 60 mL/min/1.73 sq.m Kidney failure less than 15 mL/min/1.73 sq.m eGFR Female 62 60 - 200 [facility] Non-AA Comment: REGIONAL Chronic Kidney Disease less LABORATORIES than 60 mL/min/1.73 sq.m Kidney failure less than 15 mL/min/1.73 sq.m Specimen Blood Performing Organization Address City/State/Zipcode Ph one Number [facility] [address] [place] [address] LABORATORIES * CBC and Diff (manual diff if necessary) (09/29/2017 10:01 AM CDT) WBC 6.12 4.00 - 11.00 TH/uL [facility] RBC 4.42 4.00 - 5.00 MIL/uL [facility] Hemoglobin 13.2 12.0 - 15.0 g/dL [facility] Hematocrit 40 36 - 45 % [facility] MCV 90 80 - 99 fL [facility] MCH 30 27 - 34 pg [facility] MCHC 33 32 - 36 % [facility] RDW 12.1 9.0 - 14.5 % [facility] Platelet Count 263 140 - 400 TH/uL [facility] MPV 11.6 9.4 - 12.3 fL [facility] Nucleated RBCs 0 0 - 0 /100 [facility] % Neutrophils 50 45 - 78 % [facility] %Lymphocytes 36 15 - 47 % [facility] %Monocytes 11 0 - 12 % [facility] %Eosinophils 2 0 - 7 % [facility] %Basophils 1 0 - 2 % [facility] % Imm Grans 1 0 - 1 % [facility] # Granulocytes 3.08 1.70 - 6.80 TH/uL [facility] # Lymphocytes 2.20 1.00 - 3.30 TH/uL [facility] # Monocytes 0.64 0.20 - 0.90 TH/uL [facility] # Eosinophils 0.14 0.00 - 0.40 TH/uL [facility] # Basophils 0.06 0.00 - 0.10 TH/uL [facility] LABORATORIES Specimen Blood Performing Organization Address [facility] one Number [address] [address] LABORATORIES * T4 Free (09/29/2017 10:01 AM CDT) T4 Free 1.4 0.8 - 2.2 ng/dL [facility] LABORATORIES Specimen Blood Performing Organization Address [facility] one Number [facility] [address] [address] LABORATORIES * Thyroid Stimulating Hormone (09/29/2017 10:01 AM CDT) Thyroid 0.82 0.47 - 4.68 uIU/mL [facility] Hormone LABORATORIES Specimen Blood Performing Organization Address [facility] one Number [facility] [address] [address] LABORATORIES documented in this encounter Visit Diagnoses Diagnosis Hypertension, unspecified type Hypothyroidism, unspecified type documented in this encounter
--- OUTSIDE RECORDS SUMMARY | 2019-06-19 09:16 | XMS REPORT | Encounter Summary ---
Author [facility] Organization [facility] Address Unknown Phone Unavailable Care Team Providers Care Can Capper Name Role Phone Shannon Falk PCP Encounter Details Care Team Description Date Type Department Silvia Navarro RN 10/29/2018 Abstract [facility] [address] [facility] [address] [place] [address] Social History Date Tobacco Use Types Packs/Day [...] Vikas Ross MD [address] [facility] 230 [place] [address] [phone] 07/03/2019 Video Visit Cardiology Mayank Novoa DO [address] [facility] [address] [place] [address] [phone] 08/06/2019 Appointment Pain Medicine documented as of this encounter Visit Diagnoses Not on filedocumented in this encounter
--- OUTSIDE RECORDS SUMMARY | 2019-06-19 09:16 | XMS REPORT | Encounter Summary ---
Author Author [facility] Organization [facility] Address Unknown Phone Unavailable Care Team Providers Care Field Artillery Officer Name Role Phone Shannon Falk PCP Reason for Visit * HH Auth Cert Referred By Contact Referred To Contact Status Reason Specialty Diagnoses / Procedures Encounter Details Care Team Description Date Type Department Jenny Covarrubias, PT PT HOME VISIT 03/09/2018 Home Care Visit [facility] Home Care and [facility] [address] [facility] [address] [place] [address] Social History Date Tobacco Use [...] Comments Vital Sign 124/64 03/09/2018 9:47 AM RANCH MANAGER Blood Pressure 78 03/09/2018 9:47 AM RANCH MANAGER Pulse 36.7 C (98.1 F) 03/09/2018 9:47 AM RANCH MANAGER Temperature - - Respiratory Rate 96% 03/09/2018 9:47 AM RANCH MANAGER Oxygen Saturation - - Inhaled Oxygen Concentration - - Weight - - Height - - Body Mass Index documented in this encounter Plan of Treatment Care Team Description Date Type Specialty Vikas Ross MD [address] [place], [place] [id number] 07/03/2019 Video Visit Cardiology Mayank Novoa [address] [address] [phone] 08/06/2019 Appointment Pain Medicine documented as of this encounter Visit Diagnoses Not on filedocumented in this encounter Home Health Visit - Care Plan Visit Type - PT Home Visit Discipline - Physical Therapy Status Goals Interventions Problem Descriptio Start Date n Resolved on 03/09/2018 - 1 problem intervention scheduled/documented in this visit Advance Directives Advance 03/03/2018 Disciplines: Directives Fpc, Physical Therapy, Occupational Therapy, Speech Language Pathology, [...] visit Medication Management Management 03/03/2018 Disciplines: and Fpc, Physical Education Therapy, Occupational of All Therapy, Speech Language Home Pathology, Home Health Therapeutic Recreation Specialist, Medical Social s Work, Music Therapist, Including Dietitian, Nurse Prescripti Practioner on and OTC. Active - 2 problem interventions scheduled/documented in this visit Pain Management Patient 03/03/2018 Disciplines: has pain. Fpc, Physical Therapy, Occupational Therapy, Speech Language Pathology, Home Health Aide, Medical Social Work, Music Therapist, Dietitian, Nurse Practioner Active - 1 problem intervention scheduled/documented in this visit Patient Strengths, Goals, Strengths, and Care Preferences Goals, Disciplines: Care Fpc, Physical Preference Therapy, Occupational s Therapy, Speech [...] and be s able to return hometo [place] documented in this encounter
--- OUTSIDE RECORDS SUMMARY | 2019-06-19 09:16 | XMS REPORT | Encounter Summary ---
Author Author [facility] Organization [facility] Address Unknown Phone Unavailable Care Team Providers Care Towerman Name Role Phone Shannon Falk PCP Reason for Visit * Reason Comments Leg pain Leg Swelling Encounter Details Care Team Description Date Type Department Chante Farrar, FUR BLOWER OPERATOR [address] [place], [place] [id number] Varicose veins of both lower extremities with pain (Primary Dx) [facility] [address] [facility] [address] [place] [address] Social History Date Tobacco Use Types Packs/Day [...] Comments Vital Sign 147/77 01/29/2018 10:00 AM SUGAR PLANTATION MANAGER Blood Pressure 80 01/29/2018 10:31 AM SUGAR PLANTATION MANAGER Pulse - - Temperature - - Respiratory Rate - - Oxygen Saturation - - Inhaled Oxygen Concentration 81.6 kg (180 lb) 01/29/2018 10:00 AM SUGAR PLANTATION MANAGER Weight 162.6 cm (5' 4") 01/29/2018 10:00 AM SUGAR PLANTATION MANAGER Height 30.9 01/29/2018 10:00 AM SUGAR PLANTATION MANAGER Body Mass Index documented in this encounter [...] this encounter Progress Notes * Chante Farrar, FUR BLOWER OPERATOR - 01/29/2018 10:04 AM SUGAR PLANTATION MANAGER [facility] Appointment Date: 01/29/2018 Shannon Falk MD [address] [facility] [address] RE: Dalila Hameed : 1950 Visit provider: Chante Farrar RN, [facility] Dear Shannon Falk MD, I had [...] Surgeon: Yue Abdi MD; Location: [facility]; Service: Neurosurgery; Laterality: Le ft; HYSTERECTOMY [...] contact me. Sincerely, Chante Farrar RN, AGACNP- R PLANTATION MANAGER documented in this encounter Plan of Treatment Care Team Description Date Type Specialty Vikas Ross MD [address] [facility] [address] [place] [address] [phone] 07/03/2019 Video Visit Cardiology Mayank Novoa, [facility] [address] [address] [phone] 08/06/2019 Appointment Pain Medicine documented as of this encounter Visit Diagnoses Diagnosis Varicose veins of both lower extremitie s with pain documented in this encounter
--- OUTSIDE RECORDS SUMMARY | 2019-06-19 09:17 | XMS REPORT | Encounter Summary ---
Author Author [facility] Organization [facility] Address Unknown Phone Unavailable Care Team Providers Care Directional Bore Operator Name Role Phone Shannon Falk PCP Encounter Details Care Team Description Date Type Department Shannon Falk MD [address] [facility] [place] [address] Hypertension, unspecified type (Primary Dx); Hypothyroidism, unspecified type 09/29/2017 [facility] [address] [facility] [address] [place], [place] [id number] Social History Date Tobacco Use Types Packs/Day [...] MD [address] [place] [address] [phone] 07/03/2019 Video Visit Cardiology Mayank Novoa DO 4[address] [facility] [address] [place] [address] [phone] 08/06/2019 Appointment Pain Medicine documented as of this encounter Results * Comprehensive Metabolic Panel (09/29/2017 10:01 AM CDT) Sodium 139 133 - 147 MEQ/L [facility] Potassium 4.7 3.5 - 5.3 MEQ/L [facility] Chloride 99 96 - 112 MEQ/L [facility] Carbon Dioxide 29 20 - 32 MEQ/L [facility] Anion Gap 11 5 - 17 [facility] Calcium 10.1 8.4 - 10.5 mg/dL [facility] Glucose 124 (H) 70 - 100 mg/dL [facility] Protein Total 7.4 6.0 - 8.2 g/dL [facility] Serum [facility] Albumin 4.2 3.5 - 5.0 g/dL [facility] Alkaline 99 42 - 140 IU/L [facility] Phosphatase [facility] Alanine 19Comment: ALT reference range 0 - 34 IU/L [facility] Aminotransferas changed on 08-29-2017 [facility] Aspartate 31 15 - 46 IU/L [facility] Aminotransferas [facility] e [facility] Bilirubin Total 0.6 0.2 - 1.3 mg/dL [facility] Blood Urea 22 7 - 26 mg/dL [facility] Nitrogen [facility] Creatinine 0.9 0.4 - 1.1 mg/dL [facility] eGFR Female AA 75 60 - 200 [facility] Comment: REGIONAL Chronic Kidney Disease less LABORATORIES than 60 mL/min/1.73 sq.m Kidney failure less than 15 mL/min/1.73 sq.m eGFR Female 62 60 - 200 [facility] Non-AA Comment: REGIONAL Chronic Kidney Disease less LABORATORIES than 60 mL/min/1.73 sq.m Kidney failure less than 15 mL/min/1.73 sq.m Specimen Blood Performing Organization Address City/State/Zipcode Ph one Number [facility] [address] [place] [address] LABORATORIES * CBC and Diff (manual diff if necessary) (09/29/2017 10:01 AM CDT) WBC 6.12 4.00 - 11.00 TH/uL [facility] RBC 4.42 4.00 - 5.00 MIL/uL [facility] Hemoglobin 13.2 12.0 - 15.0 g/dL [facility] Hematocrit 40 36 - 45 % [facility] MCV 90 80 - 99 fL [facility] MCH 30 27 - 34 pg [facility] MCHC 33 32 - 36 % [facility] RDW 12.1 9.0 - 14.5 % [facility] Platelet Count 263 140 - 400 TH/uL [facility] MPV 11.6 9.4 - 12.3 fL [facility] Nucleated RBCs 0 0 - 0 /100 [facility] % Neutrophils 50 45 - 78 % [facility] %Lymphocytes 36 15 - 47 % [facility] %Monocytes 11 0 - 12 % [facility] %Eosinophils 2 0 - 7 % [facility] %Basophils 1 0 - 2 % [facility] % Imm Grans 1 0 - 1 % [facility] # Granulocytes 3.08 1.70 - 6.80 TH/uL [facility]IES # Lymphocytes 2.20 1.00 - 3.30 TH/uL [facility] # Monocytes 0.64 0.20 - 0.90 TH/uL [facility] # Eosinophils 0.14 0.00 - 0.40 TH/uL [facility] # Basophils 0.06 0.00 - 0.10 TH/uL [facility] Specimen Blood Performing Organization Address City/[facility] Ph one Number [address] [address] LABORATORIES * T4 Free (09/29/2017 10:01 AM CDT) T4 Free 1.4 0.8 - 2.2 ng/dL [facility] Specimen Blood Performing Organization Address City/[facility] one Number [address] [address] LABORATORIES * Thyroid Stimulating Hormone (09/29/2017 10:01 AM CDT) Thyroid 0.82 0.47 - 4.68 uIU/mL [facility] Hormone LABORATORIES Specimen Blood Performing Organization Address City/State/Zipcode Ph one Number [address] [address] LABORATORIES documented in this encounter Visit Diagnoses Diagnosis Hypertension, unspecified type Hypothyroidism, unspecified type documented in this encounter
--- OUTSIDE RECORDS SUMMARY | 2019-06-19 09:17 | XMS REPORT | Encounter Summary ---
Author Author [facility] Organization [facility] Address Unknown Phone Unavailable Care Team Providers Care Topographical Engineer Name Role Phone Reynaldo Falky PCP Encounter Details Care Team Description Date Type Department Frank Abdi MD [address] [facility] [address] [place] [address] [phone] 11/12/2015 Documentation [facility] Neurol ogical & Spine Surgery [address] [facility] [address] [place] [address] Social History Date Tobacco Use Types Packs/Day [...] Type Specialty Vikas Ross MD [address] [facility] 230 [place] [address] [phone] 07/03/2019 Video Visit Cardiology Mayank Novoa DO 4321 [facility] [address] [place] [address] [phone] 08/06/2019 Appointment Pain Medicine documented as of this encounter Visit Diagnoses Not on filedocumented in this encounter
--- OUTSIDE RECORDS SUMMARY | 2019-06-19 09:17 | XMS REPORT | Encounter Summary ---
Author Author [facility] Organization [facility] Address Unknown Phone Unavailable Care Team Providers Care Refinery Operator Helper Crude Unit Name Role Phone Shannon Falk PCP Encounter Details Care Team Description Date Type Department Nikhil Brooke, [address] [facility] [address] [place], [place] [id number] Seropositive rheumatoid arthritis of [facility] 02/22/2017 [facility] Encounter [address] [place], [place] [id number] Social History Date Tobacco Use Types Packs/Day [...] Type Specialty Vikas Ross MD 58[address] [facility] 230 [place] [address] [phone] 07/03/2019 Video Visit Cardiology Mayank Novoa DO 4321 [facility] [address] [place] [address] [phone] 08/06/2019 Appointment Pain Medicine documented as of this encounter Procedures Comments Procedure Name Priority Date/Time Associated Diag nosis INFLIXIMAB (IFX) CONC+ Routine 02/22/2017 Seropos itive rheumatoid IFX AB 10:30 AM MILLWRIGHT INSTRUCTOR arthritis of multip le sites (HCC) documented in this encounter Results * Infliximab (IFX) Conc+ IFX Ab (02/22/2017 10:30 AM MILLWRIGHT INSTRUCTOR) Infliximab Drug 0.4 ug/mL [facility] Level Comment: [...] Najera BP, et al. Inflamm Bowel Dis 2014;20:4971-4150. 3. Yanicky A, et al. Gastroenterol 2016;150(4):B387-S399. 4. Wolbink GJ, et al. Sandra Rheum Dis 2005;64:704-707. 5. Stemary C, et al. Inflamm Bowel Dis 2012;18(12):2209- 2217. 6. Zohreh Joyner, et al. Am J Gastroenterol 2013;108:962- 971. 7. Korey H, et al. Clin Gastroenterol Hepatol 2015;13(3): 522-530. 8. Keerthi JF, et al. Gastroenterol 2016;150(4):S144. 9. Terell Rudd et al. AAPS Journal 2016 DOI:10.1208/p09211- 016-9981-3. These tests were developed and their performance characteristics determined by [employer]. They have not been cleared or approved [...] Performed at: [facility] [address] [place], [place] [id number] Casket Upholsterer: Eric Wilson MD, Phone: [phone] Specimen Blood Performing Organization Address City/State/[facility] Ph one Number [facility] [address] [place], [place] [address] documented in this encounter Visit Diagnoses Diagnosis Seropositive rheumatoid arthritis of ltiple sites (HCC) documented in this encounter
--- OUTSIDE RECORDS SUMMARY | 2019-06-19 09:17 | XMS REPORT | Encounter Summary ---
Author Author [facility] Organization [facility] Address Unknown Phone Unavailable Care Team Providers Care Consulting It Architect Name Role Phone Reynaldo Falky PCP Encounter Details Care Team Description Date Type Department Frank Abdi MD 4320 [facility] 710 [place] [address] [phone] Canceled (Provider) 09/28/2015 [facility] [address] [place], [place] [id number] Social History Date Tobacco Use Types Packs/Day [...] Type Specialty Vikas Ross MD [address] [place] [address] [phone] 07/03/2019 Video Visit Cardiology Mayank Novoa DO 4321 [facility] 1200 [place] [address] [phone] 08/06/2019 Appointment Pain Medicine documented as of this encounter Visit Diagnoses Not on filedocumented in this encounter
--- OUTSIDE RECORDS SUMMARY | 2019-06-19 09:17 | XMS REPORT | Encounter Summary ---
Author Author [facility] Organization [facility] Address Unknown Phone Unavailable Care Team Providers Care Medical Services Coordinator Name Role Phone [place], Shannon PCP Encounter Details Care Team Description Date Type Department Frank Abdi MD [address] [facility] [address] [place], [place] [id number] Spondylolisthesis of lumbar region (Prim marisol Dx) 09/21/2015 Office Visit [facility] [address] [place] [address] [place], [place] [address] Social History Date Tobacco Use Types Packs/Day [...] PT and HEP Yobany Riddle PA-C [facility]surgery [facility] Frank Abdi MD, MSc, FAANS Minimally Invasive & Complex Spine Surgery Director of Spine Surgery [facility] Clinical building analyst/supervisor & Orthopedics [facility] documented in this encounter Plan of Treatment Care Team Description Date Type Specialty Vikas Ross MD 5844 [facility] 230 [place] [address] [phone] 07/03/2019 Video Visit Cardiology Mayank Novoa DO 4321 [facility] 1200 [place] [address] [phone] 08/06/2019 Appointment Pain Medicine documented as of this encounter Visit Diagnoses Diagnosis Spondylolisthesis of lumbar region documented in this encounter
--- OUTSIDE RECORDS SUMMARY | 2019-06-19 09:17 | XMS REPORT | Encounter Summary ---
Author Author [facility] Organization [facility] Address Unknown Phone Unavailable Care Team Providers Care Receptionist Scheduler Name Role Phone Shannon Falk PCP Encounter Details Care Team Description Date Type Department Frank Abdi MD [address] [facility] [address] [place], [place] [id number] Radicular leg pain 09/21/2015 [facility] 4[address] [facility] 1400 [place] [address] Social History Date Tobacco Use Types Packs/Day [...] MD 5844 [facility] 230 [place] [address] [phone] 07/03/2019 Video Visit Cardiology Mayank Novoa DO 4321 [facility] 1200 [place] [address] [phone] 08/06/2019 Appointment Pain Medicine documented as of [...] the findings in this report. READING SITE: [facility] The Staff Radiologist has personally re viewed the images and dictated, reviewed, or edited the final report. Narrative Performed At Patient: HARI OBRIEN Sex#: F # [id number] Adbirizak#: [id number] Location: [facility] XRAY Procedure Requested: [id number] XR LUMBA R SPINE 2 OR 3 [...] HARI OBRIEN Sex#: F # 1950 Abdirizak#: [id number] Location: [facility] XRAY Procedure Requested: [id number] XR LUMBAR SPINE 2 OR 3 VIEWS [...] the findings in this report. READING SITE: [facility] The Staff Radiologist has personally reviewed the images and dictated, reviewed, or edited the final report. Performing Organization Address City/State/[facility] Ph one Number [facility] documented in this encounter Visit Diagnoses Diagnosis Radicular leg pain documented in this encounter
--- OUTSIDE RECORDS SUMMARY | 2019-06-19 09:17 | XMS REPORT | Encounter Summary ---
Author Author [facility] Organization [facility] Address Unknown Phone Unavailable Care Team Providers Care Bulk Station Operator Name Role Phone Shannon Falk PCP Reason for Visit * Reason Comments Correspondence Encounter Details Care Team Description Date Type Department Cassandra Justice RN Correspondence 09/19/2017 Telephone [facility]ants [address] [facility] [address] [place], [place] [id number] Social History Date Tobacco Use Types Packs/Day [...] Specialty Vikas Ross MD 5844 [facility] [address] [place], [place] [id number] 07/03/2019 Video Visit Cardiology Mayank Novoa, [address] [address] [phone] 08/06/2019 Appointment Pain Medicine documented as of this encounter Visit Diagnoses Not on filedocumented in this encounter
--- OUTSIDE RECORDS SUMMARY | 2019-06-19 09:17 | XMS REPORT | Encounter Summary ---
Author Author [facility] Organization [facility] Address Unknown Phone Unavailable Care Team Providers Care Pediatric Assistant Name Role Phone Shannon Falk PCP Reason for Referral * Diagnostic Imaging (Routine) Referred By Contact Referred To Contact Status Reason Specialty Diagnoses / Procedures Nikhil Brooke DO [address] [facility] [address] [place] [address] Closed Diagnoses Localized edema Pain in right lower leg P rocedures US Venous Duplex Lower Extremity right Encounter Details Care Team Description Date Type Department Nikhil Brooke DO [address] [facility] [address] [place] [address] [phone] Localized edema (Primary Dx); Pain in right lower leg 08/07/[address] [facility] [address] [place] [address] Social History Date Tobacco Use Types Packs/Day [...] MD [address] [place] [address] [phone] 07/03/2019 Video Visit Cardiology Mayank Novoa DO [address] [address] [phone] 08/06/2019 Appointment Pain Medicine Order Schedule Name Type Priority Associated Diag noses 1 Occurrences starting 08/07/2017 until 08/07/2018 Venous Duplex Lower Vascular Routine Localiz ed edema Extremity right Ultrasound Pain in right lower leg documented as of this encounter Visit Diagnoses Diagnosis Localized edema Edema Pain in right lower leg documented in this encounter
--- OUTSIDE RECORDS SUMMARY | 2019-06-19 09:17 | XMS REPORT | Encounter Summary ---
Author Author [facility] Organization [facility] Address Unknown Phone Unavailable Care Team Providers Care Life Sciences Manager Name Role Phone Shannon Falk PCP Reason for Referral * Physical Therapy (Routine) Referred By Contact Referred To Contact Status Reason Specialty Diagnoses / Procedures Yobany Riddle PA-C [address] [place] [address] [address] Closed Specialty Services Physical Therapy Diagnoses Required Radicular leg pain Encounter Details Care Team Description Date Type Department Yobany Riddle PA-C [address] [place] [address] [phone] Radicular leg pain (Primary Dx) 08/03/2015 Orders Only [facility] Social History Date Tobacco Use [...] MD [address] [place] [address] [phone] 07/03/2019 Video Visit Cardiology Mayank Novoa DO [address] [address] [phone] 08/06/2019 Appointment Pain Medicine Order Schedule Name Type Priority Associated Diag noses 1 Occurrences starting 08/03/2015 until 02/02/2016 Ambulatory referral to Outpatient Routine Radicul ar leg pain Physical Therapy Referral documented as of this encounter Visit Diagnoses Diagnosis Radicular leg pain documented in this encounter
--- OUTSIDE RECORDS SUMMARY | 2019-06-19 09:17 | XMS REPORT | Encounter Summary ---
Author Author [facility] Organization [facility] Address Unknown Phone Unavailable Care Team Providers Care Powerhouse Electrician Apprentice Name Role Phone Reynaldo Falky PCP Encounter Details Care Team Description Date Type Department Vikas Ross MD 5844 [facility] 230 [place] [address] [phone] Mixed hyperlipidemia; Edema, unspecified type 09/29/2017 Lab [facility] 4320 [facility] 140 [place], [place] [id number] Social History Date Tobacco Use Types Packs/Day [...] Date Type Specialty Vikas Ross MD 5844 [facility] [address] [place] [address] [phone] 07/03/2019 Video Visit Cardiology Mayank Novoa DO 4321 [facility] 1200 [place] [address] [phone] 08/06/2019 Appointment Pain Medicine documented as of this encounter Procedures Comments Procedure Name Priority Date/Time Associated Diag nosis BASIC METABOLIC PANEL Routine 09/29/2017 Mixed hy perlipidemia 10:01 AM CDT Edema, unspecified type documented in this encounter Results * Basic Metabolic Panel (09/29/2017 10:01 AM CDT) Sodium 138 133 - 147 MEQ/L [facility] Potassium 4.9 3.5 - 5.3 MEQ/L [facility] Chloride 99 96 - 112 MEQ/L [facility] Carbon Dioxide 29 20 - 32 MEQ/L [facility] Anion Gap 10 5 - 17 [facility] Calcium 10.4 8.4 - 10.5 mg/dL [facility] Glucose 125 (H) 70 - 100 mg/dL [facility] Blood Urea 23 7 - 26 mg/dL [facility] Creatinine 0.9 0.4 - 1.1 mg/dL [facility] eGFR Female AA 75 60 - 200 [facility] Comment: REGIONAL Chronic Kidney Disease less LABORATORIES than 60 mL/min/1.73 sq.m Kidney failure less than 15 mL/min/1.73 sq.m eGFR Female 62 60 - 200 [facility] Non-AA Comment: REGIONAL Chronic Kidney Disease less LABORATORIES than 60 mL/min/1.73 sq.m Kidney failure less than 15 mL/min/1.73 sq.m Specimen Blood Performing Organization Address City/State/Zipcode Ph one Number [address] [address] LABORATORIES documented in this encounter Visit Diagnoses Diagnosis Mixed hyperlipidemia Edema, unspecified type documented in this encounter
--- OUTSIDE RECORDS SUMMARY | 2019-06-19 09:17 | XMS REPORT | Encounter Summary ---
Author Author [facility] Organization [facility] Address Unknown Phone Unavailable Care Team Providers Care Low Heel Builder Name Role Phone Shannon Falk PCP Encounter Details Care Team Description Date Type Department Shyla Kaye RN 09/12/2017 Abstract [facility] 4330 [facility] [address] [place] [address] Social History Date Tobacco Use Types Packs/Day [...] Date Type Specialty Vikas Ross MD 5844 [facility] 230 [place] [address] [phone] 07/03/2019 Video Visit Cardiology Mayank Novoa, 4321 [facility] [address] [place] [address] [phone] 08/06/2019 Appointment Pain Medicine documented as of this encounter Visit Diagnoses Diagnosis Neuropathy Mononeuritis of unspecified site Essential hypertension Unspecified essential hypertension Mixed hyperlipidemia Obesity (BMI 30.0-34.9) Foot drop, left Other acquired deformity of ankle and f oot Edema of lower extremity documented in this encounter
--- OUTSIDE RECORDS SUMMARY | 2019-06-19 09:17 | XMS REPORT | Encounter Summary ---
Author Author [facility] Organization [facility] Address Unknown Phone Unavailable Care Team Providers Care Car Inspector Name Role Phone Shannon Falk PCP Encounter Details Care Team Description Date Type Department Frank Abdi MD [address] [place], [place] [phone] Radicular leg pain (Primary Dx) 08/26/2015 [facility] [address] [place], [place] [address] Social History Date Tobacco Use Types Packs/Day [...] MD [address] [place] [address] [phone] 07/03/2019 Video Visit Cardiology Mayank Novoa, 4321 [facility] [address] [place] [address] [phone] 08/06/2019 Appointment Pain Medicine documented as of [...] the findings in this report. READING SITE: [facility] The Staff Radiologist has personally re viewed the images and dictated, reviewed, or edited the final report. Narrative Performed At Patient: HARI OBRIEN Sex#: F # 1950 Abdirizak#: [id number] Location: [facility] XRAY Procedure Requested: [id number] XR LUMBA R SPINE 2 OR 3 [...] HARI OBRIEN Sex#: F # 1950 Abdirizak#: [id number] Location: [facility] XRAY Procedure Requested: [id number] XR LUMBAR SPINE 2 OR 3 VIEWS [...] the findings in this report. READING SITE: [facility] The Staff Radiologist has personally reviewed the images and dictated, reviewed, or edited the final report. Performing Organization Address City/State/Zipcode Ph marcie JADE documented in this encounter Visit Diagnoses Diagnosis Radicular leg pain documented in this encounter
--- OUTSIDE RECORDS SUMMARY | 2019-06-19 09:17 | XMS REPORT | Encounter Summary ---
Author Author [facility] Organization [facility] Address Unknown Phone Unavailable Care Team Providers Care Ancillary Services Manager Therapy Name Role Phone Shannon Falk PCP Encounter Details Care Team Description Date Type Department Frank Abdi MD [address] [facility] [address] [place], [place] [id number] 09/23/2015 [facility] [address] [place], [place] [id number] Social History Date Tobacco Use Types Packs/Day [...] Yobany's call. Pt can be reached at [phone] before 11 am or after 3 pm. documented in this encounter Plan of Treatment Care Team Description Date Type Specialty Vikas Ross MD [address] [place] [address] [phone] 07/03/2019 Video Visit Cardiology Mayank Novoa DO [address] [facility] 1200 [place] [address] [phone] 08/06/2019 Appointment Pain Medicine documented as of this encounter Visit Diagnoses Not on filedocumented in this encounter
--- OUTSIDE RECORDS SUMMARY | 2019-06-19 09:17 | XMS REPORT | Encounter Summary ---
Author Author [facility] Organization [facility] Address Unknown Phone Unavailable Care Team Providers Care Die Cast Technician Name Role Phone Shannon Falk PCP Reason for Referral * Diagnostic Imaging (Routine) Referred By Contact Referred To Contact Status Reason Specialty Diagnoses / Procedures Nikhil Brooke DO [address] [facility] 40 [place] [address] Closed Diagnoses Localized edema P rocedures US Venous Duplex Lower Extremity left Encounter Details Care Team Description Date Type Department Nikhil Brooke DO [address] [facility] 40 [place] [address] [phone] Localized edema (Primary Dx) 08/08/2017 Transcribe [facility] [address] [place] [address] Social History Date Tobacco Use Types Packs/Day [...] Type Specialty Vikas Ross MD [address] [facility] [address] [place] [address] [phone] 07/03/2019 Video Visit Cardiology Mayank Novoa DO 4321 [facility] 1200 [place] [address] 08/06/2019 Appointment Pain Medicine documented as of this encounter Results * US Venous Duplex Lower Extremity left (08/08/2017 1:13 PM CDT) Specimen Impressions Performed At No evidence of deep venous thrombosis in the left low er extremity. KALIE Reading Site: [facility] Narrative Performed At Patient: HARI OBRIEN Sex#: F # 1950 Abdirizak#: [id number] Location: [place] Procedure Requested: [id number] US VENOU S DUPLEX LOWER EXTREMITY LEFT [...] HARI OBRIEN Sex#: F # 1950 Abdirizak#: [id number] Location: US Procedure Requested: [id number] US VENOUS DUPLEX LOWER EXTREMITY LEFT Reason [...] in the left lower extremity. Reading Site: [facility] Performing Organization Address City/State/Zipcode Ph one Number [place] documented in this encounter Visit Diagnoses Diagnosis Localized edema Edema documented in this encounter
--- OUTSIDE RECORDS SUMMARY | 2019-06-19 09:17 | XMS REPORT | Encounter Summary ---
Author Author [facility] Organization [facility] Address Unknown Phone Unavailable Care Team Providers Care Sales Order Administrator Name Role Phone Shannon Falk PCP Reason for Referral * Diagnostic Imaging (Routine) Referred By Contact Referred To Contact Status Reason Specialty Diagnoses / Procedures Vikas Ross MD [address] [facility] [address] [place] [address] [facility] [address] [facility] [address] [place] [address] Closed Radiology Diagnoses Mixed hyperlipidemia Edema, unspecified type P rocedures US Vein Mapping w Duplex lower extremity bilat complete * Consultation (Routine) Referred By Contact Referred To Contact Status Reason Specialty Diagnoses / Procedures Vikas Ross MD [address] [facility] [address] [place] [address] [facility] [address] [place] [address] Canceled Cardiology Diagnoses Mixed hyperlipidemia Edema, unspecified type * Diagnostic Imaging (Routine) Referred By Contact Referred To Contact Status Reason Specialty Diagnoses / Procedures Vikas Ross MD [address] [place] [address] Closed Diagnoses Mixed hyperlipidemia Edema, unspecified type P rocedures Electrocardiogram (ECG) Reason for Visit * Reason Comments Edema Encounter Details Care Team Description Date Type Department Vikas Ross MD [address] [place] [address] [phone] Edema of lower extremity (Primary Dx); Mixed hyperlipidemia; Edema, unspecified type; Essential hypertension; Obesity (BMI 30.0-34.9) 09/15/2017 Initial consult [facility] [address] [place] [address] Social History Date Tobacco Use Types Packs/Day [...] (BMP) in 2 weeks. Lab is in [facility] I, [address]. HOLD Atorvastatin 40 mg. [...] if needed. Name:Dalila Obrien Date: 09/15/2017 Chart#: [id number] LIPID PROFILE RESULTS Cholesterol (no units) Date Value 09/15/2017 222 Total Cholesterol less than 190 HDL Cholesterol (mg/dL) Date Value 09/15/2017 53 High Density Lipoprotein or "Good" Cholesterol greater than 45 for men greater than 55 for women To Raise HDL: Quit smoking Increase Alice 3 fats in diet Lose weight Nuts [...] fats Limit Starches (pastas, bagels, bread, Increase Alice 3 fats in diet crackers, and foods made with flour) Change oral to patch estrogen Lose weight No more than 1-2 alcoholic drinks per day No results found for: [id number] (Average blood sugar over prev 3mo-4mo) 4.4 [...] POCAST Vitamin D No results found for: [id number] Weight Vitals: 09/15/17 1014 Weight: 86.8 kg [...] include na rrowing of the arteries, a ormkhzc-jpox-zidzrc volume of blood, or the heart melisa [...] members with a history of the disease -[place] Age (older than 35) control pills Overweight [...] products 7-8 1 slice bread, 1 cup bpmpq-wu-emd cereal*, cup cooked rice, pasta, or cereal [...] Ross MD - 09/15/2017 11:10 AM CDT [facility] [place] Appointment Date: 09/15/2017 Shannon Falk MD [address] [facility] [address] RE: Dalila bOrien : 1950 Visit provider: Vikas Ross MD [...] referred her to our vein clinic at [facility] for further evaluation of lower extremity venous insufficien cy as certainly this could be contributing to her edema. Patient Active Problem List Diagnosis SNOMED CT(R) Radicular leg pain RADICULAR PAIN RA (rheumatoid arthritis) ([facility]) RHEUMATOID ARTHRITIS Neuropathy NEUROPATHY Hypothyroidism HYPOTHYROIDISM Essential [...] HANDS, HIPS RA (rheumatoid arthritis) ([facility]) APPROX 10 YRS Radicular leg pain 05/25/2015 Rheumatoid arthritis of spine ([facility]) CERVICAL SPINE; HAS FULL ROM WITH NECK [...] to contact me. Sincerely, Vikas Ross MD /[facility] documented in this encounter Plan of Treatment Care Team Description Date Type Specialty Vikas Ross MD [address] [facility] 230 [place] [address] [phone] 07/03/2019 Video Visit Cardiology Mayank Novoa, 4[address] [facility] 1200 [place] [address] [phone] 08/06/2019 Appointment Pain Medicine Order Schedule Name [...] grayscale and color Doppler images on P [employer] archive. NOTE: Parts of this report were generated wit [employer] voice recognition software. J Digit Imagin2010;24(4):724-8. Narrative Performed At Patient: DALILA OBRIEN Sex#: F # 1950 Abdirizak#: [id number] Location: [facility] US Procedure Requested: [id number] US VEIN MAPPING W DUPLEX LOWER EXTREMITY BILAT COMPLETE Reason for Exam: Mixed hyperlipidemia Exam Ordered: 10/30/2017 09 03 Exam Date/Time: 10/30/2017 101 1 Begin exam date/time: 10/30/2017 090 7 US VEIN MAPPING W DUPLEX LOWER EXTREMIT Y BILAT COMPLETE Indication: Mixed hyperlipidemia Edema, unspecified type READING SITE: [facility] Grayscale and duplex venous vein map ping of bilateral legs was performed. Procedure Note Interface, Rad Results In - 10/30/2017 11:50 AM CDT Patient: DALILA OBRIEN Sex#: F # 1950 Abdirizak#: [id number] Location: [facility] US Procedure Requested: [id number] US VEIN MAPPING W DUPLEX LOWER EXTREMITY BILAT COMPLETE Reason for Exam: Mixed hyperlipidemia Exam Ordered: 10/30/2017 0903 Exam Date/Time: 10/30/2017 1011 Begin exam date/time: 10/30/2017 0907 US VEIN MAPPING W DUPLEX LOWER EXTREMITY BILAT COMPLETE Indication: Mixed hyperlipidemia Edema, unspecified type READING SITE: [facility] Grayscale and duplex venous vein mapping of [...] CDT) Sodium 138 133 - 147 MEQ/L [facility] Potassium 4.9 3.5 - 5.3 MEQ/L [facility] Chloride 99 96 - 112 MEQ/L [facility] Carbon Dioxide 29 20 - 32 MEQ/L [facility] Anion Gap 10 5 - 17 [facility] Calcium 10.4 8.4 - 10.5 mg/dL [facility] Glucose 125 (H) 70 - 100 mg/dL [facility] Blood Urea 23 7 - 26 mg/dL [facility]ATOR[facility] Creatinine 0.9 0.4 - 1.1 mg/dL [facility] eGFR Female AA 75 60 - 200 [facility] Comment: REGIONAL Chronic Kidney Disease less LABORATORIES than 60 mL/min/1.73 sq.m Kidney failure less than 15 mL/min/1.73 sq.m eGFR Female 62 60 - 200 [facility] Non-AA Comment: REGIONAL Chronic Kidney Disease less LABORATORIES than 60 mL/min/1.73 sq.m Kidney failure less than 15 mL/min/1.73 sq.m Specimen Blood Performing Organization Address City/State/Zipcode Ph one Number [place] [address] [address] LABORATORIES * POCT Lipid Panel with Glucose [...] Specimen Narrative Performed At [facility] Test Date: 2017-09-15 Pat Name: DALILA OBRIEN Department: [facility] Room: Gender: Female Public Health Veterinarian: [id number] : 1950 Requested By: VIKAS ROSS Order Number: [id number] Reading MD: Vikas Ross Measurements Intervals [place] Rate: 57 P: 49 OK: 171 QRS: 64 QRSD: 95 T: 49 QT: 439 QTc: 428 Interpretive Statements Sinus rhythm Electronically Signed On 09-19-2017 7:54 :37 CDT by Vikas Ross Procedure Note Interface, External Ris In - 09/19/2017 7:54 AM CDT [facility] Test Date: 2017-09-15 Pat Name: [facility] Department: [facility] Room: Gender: Female Public Health Veterinarian: [id number] : 1950 Requested By: VIKAS RSOS Order Number: [id number] Reading MD: Vikas Ross Measurements Intervals Cameron Rate: 57 P: 49 OK: 171 QRS: 64 QRSD: 95 T: 49 [...]
--- OUTSIDE RECORDS SUMMARY | 2019-06-19 09:17 | XMS REPORT | Encounter Summary ---
Author Author [facility] Organization [facility] Address Unknown Phone Unavailable Care Team Providers Care Check Scaler Name Role Phone Reynaldo Falky PCP Encounter Details Care Team Description Date Type Department Vikas Ross MD [address] [facility] [address] [place] [address] [phone] 08/14/2017 Documentation [facility] [address] [place] [address] [place] [id number] Social History Date Tobacco Use Types Packs/Day [...] Type Specialty Vikas Ross MD [address] [facility] 230 [place] [address] [phone] 07/03/2019 Video Visit Cardiology Mayank Novoa DO 4[address] [facility] 1200 [place] [address] [phone] 08/06/2019 Appointment Pain Medicine documented as of this encounter Visit Diagnoses Not on filedocumented in this encounter
--- OUTSIDE RECORDS SUMMARY | 2019-06-19 09:17 | XMS REPORT | Encounter Summary ---
Author Author [facility] Organization [facility] Address Unknown Phone Unavailable Care Team Providers Care Script Writer Name Role Phone Shannon Falk PCP Encounter Details Care Team Description Date Type Department Nikhil Brooke [address] [facility] 40 [place] [address] [phone] Seropositive rheumatoid arthritis of [facility] ([facility]) (Primary Dx) 02/22/2017 Transcribe [facility] Hospit al Orders [address] [place] [address] Social History Date Tobacco Use Types Packs/Day [...] Vikas Ross MD [address] [facility] [address] [place] [address] [phone] 07/03/2019 Video Visit Cardiology Mayank Novoa, [address] [facility] [address] [place] [address] [phone] 08/06/2019 Appointment Pain Medicine documented as of this encounter Results * Infliximab (IFX) Conc+ IFX Ab (02/22/2017 10:30 AM CHECKOUT OPERATOR) Infliximab Drug 0.4 ug/mL SLRL Level [...] Reinaldo BP, et al. Inflamm Bowel Dis 2014;20:8906-5636. 3. Andrez Barrett, et al. Gastroenterol 2016;150(4):J600-W595. 4. Wolbink GJ, et al. Sandra Rheum Dis 2005;64:704-707. 5. Alber Fulton, et al. Inflamm Bowel Dis 2012;18(12):2209- 2217. 6. Vernone Ricardoeechey N, et al. Am J Gastroenterol 2013;108:962- 971. 7. Yanai H, et al. Clin Gastroenterol Hepatol 2015;13(3): 522-530. 8. Keerthi JF, et al. Gastroenterol 2016;150(4):S144. 9. Terell J, et al. AAPS Journal 2016 DOI:10.1208/j51657- 016-9981-3. These tests were developed and their performance characteristics determined by [employer]. They have not been cleared or approved [...] Performed at: [facility] [address] [place], [place] [id number] Financial Advisor: Eric Wilson MD, Phone: [phone] Specimen Blood Performing Organization Address City/State/Rustcode Ph one Number [facility] [address] [place], [place] [address] documented in this encounter Visit Diagnoses Diagnosis Seropositive rheumatoid arthritis of mu ltiple sites (HCC) documented in this encounter
--- OUTSIDE RECORDS SUMMARY | 2019-06-19 09:17 | XMS REPORT | Encounter Summary ---
Author Author [facility] Organization [facility] Address Unknown Phone Unavailable Care Team Providers Care Spool Worker Name Role Phone Shannon Falk PCP Reason for Visit * Diagnostic Imaging (Routine) Referred By Contact Referred To Contact Status Reason Specialty Diagnoses / Procedures Nikhil Brooke DO [address] [place] [address] Closed Diagnoses Localized edema P rocedures US Venous Duplex Lower Extremity left Encounter Details Care Team Description Date Type Department Localized edema 08/08/2017 Imaging [facility] Radiol ogy Appointment [address] [facility] [address] [place] [address] Social History Date Tobacco Use [...] MD [address] [place] [address] [phone] 07/03/2019 Video Visit Cardiology Mayank Novoa DO 4[address] [facility] [address] [place] [address] [phone] 08/06/2019 Appointment Pain Medicine documented as of [...] left low er extremity. KALIE Reading Site: [facility] Narrative Performed At Patient: HARI OBRIEN Sex#: F # 1950 Abdirizak#: [id number] Location: US Procedure Requested: [id number] US VENOU S DUPLEX LOWER EXTREMITY LEFT [...] HARI OBRIEN Sex#: F # 1950 Abdirizak#: [id number] Location: US Procedure Requested: [id number] US VENOUS DUPLEX LOWER EXTREMITY LEFT Reason [...] in the left lower extremity. Reading Site: [facility] Performing Organization Address City/State/Zipcode Ph one Number [place] documented in this encounter Visit Diagnoses Diagnosis Localized edema Edema documented in this encounter
--- OUTSIDE RECORDS SUMMARY | 2019-06-19 09:17 | XMS REPORT | Encounter Summary ---
Author Author [facility] Organization [facility] Address Unknown Phone Unavailable Care Team Providers Care Warehouse Production Worker Name Role Phone Shannon Falk PCP Encounter Details Care Team Description Date Type Department Yobany Riddle PA-C [address] [place], [place] [id number] Spinal stenosis, lumbar (Primary Dx) 01/22/2016 Office Visit [facility] [address] [facility] [place], [place] [id number] Social History Date Tobacco Use Types Packs/Day [...] Comments Vital Sign 138/60 01/22/2016 1:25 PM LETTUCE TRIMMER Blood Pressure 81 01/22/2016 1:25 PM LETTUCE TRIMMER Pulse - - Temperature - - Respiratory Rate - - Oxygen Saturation - - Inhaled Oxygen Concentration 77.1 kg (170 lb) 01/22/2016 1:25 PM LETTUCE TRIMMER Weight 162.6 cm (5' 4") 01/22/2016 1:25 PM LETTUCE TRIMMER Height 29.18 01/22/2016 1:25 PM LETTUCE TRIMMER Body Mass Index documented in this encounter Progress Notes * Yobany Riddle PA-C - 01/22/2016 1:15 PM LETTUCE TRIMMER Neurologic Surgery Return Patient Note Patient ID: [...] follow up in 6 months with repeat [facility]. Yobany Riddle PA-C [facility] [place] 1 [address] [facility] [address] UCE TRIMMER documented in this encounter Plan of Treatment Care Team Description Date Type Specialty Vikas Ross MD [address] [facility] [address] [place] [address] [phone] 07/03/2019 Video Visit Cardiology Mayank Novoa 4[address] [facility] [address] [place] [address] [phone] 08/06/2019 Appointment Pain Medicine Order Schedule Name Type Priority Associated Diag noses 1 Occurrences starting 01/22/2016 until 09/21/2016 XR Lumbar Spine 2 or 3 Imaging Routine Spinal stenosis, lumbar views documented as of this encounter Visit Diagnoses Diagnosis Spinal stenosis, lumbar Spinal stenosis of lumbar region documented in this encounter
--- OUTSIDE RECORDS SUMMARY | 2019-06-19 09:18 | XMS REPORT | Encounter Summary ---
Author Author [facility] Organization [facility] Address Unknown Phone Unavailable Care Team Providers Care Airline Manager Name Role Phone PCP Unavailable Encounter Details Care Team Description Date Type Department Az Casanova MD [address] [facility] [address] [address] [phone] 05/13/2013 [facility] al Encounter [address] [place] [address] Social History Date Tobacco Use Types Packs/Day Years Used Never Assessed Sex Assigned at Date Recorded Female Industry Job Start Date Occupation Not on file Not on file Not on file Travel End Travel History Travel Start No recent travel history available. documented as of this encounter Plan of Treatment Care Team Description Date Type Specialty Vikas Ross MD [address] [facility] 230 [place] [address] [phone] 07/03/2019 Video Visit Cardiology Maaynk Novoa, [address] [facility] [address] [place] [address] [phone] 08/06/2019 Appointment Pain Medicine documented as of this encounter Procedures Comments Procedure Name Priority Date/Time Associated Diag nosis QUANTIFERON TB GOLD Routine 05/13/2013 2:22 PM CDT ACUTE HEPATITIS PANEL Routine 05/13/2013 2:22 PM CDT documented in this encounter Results * Quantiferon TB Gold (05/13/2013 2:22 PM CDT) QFT NegativeComment: M. Negative [facility] Interpretation tuberculosis infection is not REGIONA L likely. LABORATORIES Specimen Blood Performing Organization Address [facility] one Number [address] [address] LABORATORIES * Acute Hepatitis Panel (05/13/2013 2:22 PM CDT) Pathologist [facility] Hepatitis A Ab Non-reactive Non-reactive [place] IgM [facility] LAB[facility]ATORIES Hepatitis B Non-reactive Non-reactive [employer] [place] [facility] Core Ab IgM [facility] LABORATORIES Hepatitis B Non-reactive Non-reactive [place] [facility] Surface Ag [facility]IES Hepatitis C Ab Non-reactive Non-reactive [employer] [facility] LABOR[facility]IES Specimen Blood Performing Organization Address [facility] one Number [address] [phone] LABORATORIES documented in this encounter Visit Diagnoses Not on filedocumented in this encounter
--- OUTSIDE RECORDS SUMMARY | 2019-06-19 09:18 | XMS REPORT | Encounter Summary ---
Author Author [facility] Organization [facility] Address Unknown Phone Unavailable Care Team Providers Care Radiographer Mammographer Name Role Phone Shannon Falk PCP Reason for Visit * Auth/Cert (Routine) Referred By Contact Referred To Contact Status Reason Specialty Diagnoses / Procedures Yobany Riddle PA-C [address] [facility] [address] [place] [address] Diagnoses Radicular leg pain P rocedures Case request operating room: Left L4-L5 FUSION TRANSFORAMINAL LUMBAR INTERBODY SPINE ID ARTHDSIS POST/POSTEROLATRL/ POSTINTERBODY LUMBAR Encounter Details Care Team Description Date Type Department Frank Abdi MD [address] [facility] [address] [place], [place] [id number] L4-L5 FUSION TRANSFORAMINAL LUMBAR INTER BODY SPINE 07/28/2015 Surgery [facility] [address] [place], [place] [id number] Social History Date Tobacco Use Types Packs/Day [...] pt. This RN thanked pt. For choosing [facility] the [facility]. * Yobany Riddle PA-C - 07/31/2015 7:31 AM CDT [facility] NEUROSURGERY INPATIENT DISCHARGE SUMMARY Patient: Dalila Obrien Age: 67 y.o. : 1950 Admit Date: 07/28/2015 Discharge Date and Time: 07/31/2015 6:11 PM On the day of admission, the patient was brought to the operative theater for L4 -L5 TLIF. The intraoperative and immediate postoperative course were uncomplica bradley. The patient was transferred from recovery to the [facility]. There, she recovered well and progressed well [...] * Instructions* Yobany Riddle PA-C - 07/31/2015 [facility] [address] [address], [address] [place] [address] Lumbar Surgery Post Operative Instructions [...] up is in 3 weeks. Please call [phone] to schedule documented in this encounter Medications [...] CDT I reviewed the note with the INTERNET CAFE MANAGER and agree with the treatment plan. Faheem Mercado MD 08/03/2015 10:49 AM * Angeal Clark LMSW - 07/31/2015 2:29 PM CDT 07/31/15 1429 Discharge Planning Anticipated discharge destination Home Self Care Interventions Interventions Met with patient;Phone contact Met with the patient at bedside, she has now decided to go home with her melinda r. Contacted acute rehab at [facility], canceled the referral. * Angela Clark LMSW - 07/31/2015 2:04 PM CDT 07/31/15 1404 Interventions Interventions Phone contact Spoke with [place] Driller And Broacher at [facility] rehab, admission RN is st [facility] in the process of reviewing the patient's clinical documentation. Venice conley call back with a decision as soon as possible. Angela Clark LMSW [phone] * Frank Abdi MD - 07/31/2015 7:46 AM CDT [facility] Neurosurgery Daily Progress Note Patient Name: [...] or home today Yobany Riddle PA-C Neurosurgery [facility] She is interested in going home. She refused home health, but will consider out patient PT. Reviewed all postoperative instructions, no NSAIDs, use vitamin D / calcium. We will initiate outpatient PT starting next week. We also will disc uss resuming RA medications w/ congressional representative next week. Otherwise patient desc ribes no radicular symptoms, only incisional pain. She feels that her strength is improving. 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 Add ress/ Insurance/ PCP verified with patient. Pharmacy updated. Patient on day 2 of admission for lumbar stenosis. L4-5 TLIF on 07/28/15. PT/OT veronica doyle. PMR consulted and recommended outpt PT/OT. PT recommended walker. DAVID Rodríguez called at [phone]. Message about needing a walker order l [...] daughter's home w/outpt PT/OT when medically stable. Embedded Firmware Engineer will cont to follow. * Frank Abdi MD - 07/30/2015 7:54 AM CDT [facility] Neurosurgery Daily Progress Note Patient Name: [...] - Encourage IS Yobany Venkatesh PA-C Neurosurgery [facility] Doing well. May want to go home tomorrow. Otherwise radicular symptoms markedl y improved. Frank Abdi MD, MSc, FAANS Pager: [phone] 07/30/2015 7:54 AM * Frank Abdi MD - 07/29/2015 7:49 AM CDT [facility] Neurosurgery Daily Progress Note Patient Name: [...] p.m. - Encourage OJENNIFER Riddle PA-C Neurosurgery [facility] Doing well. Radicular symptoms improved. Frank Abdi MD, MSc, FAANS Pager: [phone] 07/29/2015 7:49 AM documented in this encounter H&P Notes * Frank Abdi MD - 07/28/2015 7:54 AM CDT [facility] NEUROSURGERY CONSULT NOTE NAME: Dalila [...] improvement. Frank Abdi MD, MSc, FAANS Pager: [phone] 07/28/2015 7:54 AM documented in this encounter [...] EMG activity was ob served. . Pager: [phone]. documented in this encounter Consult Notes * Angela Clark LMSW - 07/31/2015 10:36 AM CDT Associated Order(s): CONSULT TO CARE INTEGRATION Met with patient at bedside, patient was planning on staying with her daughter arcadio n the [facility] following surgery. Patient feels she needs to be stronge r and needs more therapy prior to returning to a home setting. Informed patient [facility] has an inpatient acute rehab and offered patient a list of acute r ehabs in the [facility]. Patient requested a referral to [facility] te [facility]. Spoke with [place] at [facility] [phone] and faxed referral to . SW will continue to follow. Angela Clark LMSW [phone] * Yandel Garcia MD - 07/29/2015 10:59 AM CDT [facility] 07/29/2015 Patient Identification Patient's Name: [...] two story house with h er in [place], [place] with two steps to enter. Guest [...] extensio n, wrist extension, finger abduction and deck cadet. 5/5 in R leg with hip flexion, [...] concerns. Yandel Garcia MD Internal Medicine, PGY-1 [phone] Electronically signed by Yandel Garcia M.D. 07/29/2015 [...] Stair Management Technique No rails;Step to pattern;Forwards (JEWELRY ESTIMATOR L, use of wall on R) Stair [...] in recliner with nursing staff present and Patch Worker a rrived to transfer pt to PT [...] On 07/30/15 ADL Adaptive Equipment/Durable Medical Equipment Splicer Machine Operator;Sock aid Lower Body Dressing Minimal Assistance [...] Assistive Device None Prior Function Level of [place] Independent with ADLs;Independent with functional transfer s;Independent [...] daughter at d/c Prior Function Level of [place] Independent with ADLs;Independent with functional transfer s;Independent [...] Gait Gait Distance (Feet) 100 Assistive Device JEWELRY ESTIMATOR;Right (hallway rail L) Gait Level Surface Assistance [...] Abdi MD - 07/28/2015 12:15 PM CDT [facility] NEUROSURGERY OPERATIVE NOTE NAME: Dalila [...] Arm SURGEON: Frank Abdi MD, MSc, FAANS RESIDENT/STATE MANAGER: Yobany Riddle PA-C ANESTHESIA: GET EBL: <30 [...] endotracheal anesthesia. Neuromonitoring electrodes were placed by systems technician. The patient was then prone onto [...] was then brought into the field. A [employer] TAC 125 drill was used to perform [...] closure. Frank Abdi MD, MSc, FAANS Pager: [phone] 07/28/2015 12:15 PM documented in this encounter Plan of Treatment Care Team Description Date Type Specialty Vikas Ross MD [address] [facility] [address] [place] [address] [phone] 07/03/2019 Video Visit Cardiology Mayank Novoa, DO [address] [facility] [address] [place] [address] [phone] 08/06/2019 Appointment Pain Medicine Order Schedule Name Type Priority Associated Diag noses 1 Occurrences starting 07/31/2015 until 01/30/2016 Amb Referral To Home Outpatient Routine [facility] Referral documented as of this [...] S1. 3. Mild lumbar spondylosis. READING SITE: [facility] Imaging Narrative Performed At Patient: DALILA OBRIEN Sex#: F # 1950 Abdirizak#: [id number] Location: [address] N[address]-01 Procedure Requested: [id number] XR LUMBA R SPINE 2 OR 3 [...] DALILA OBRIEN Sex#: F # 1950 Abdirizak#: [id number] Location: [address] N402-01 Procedure Requested: [id number] XR LUMBAR SPINE 2 OR 3 VIEWS [...] S1. 3. Mild lumbar spondylosis. READING SITE: [facility] Performing Organization Address City/State/Zipcode Ph one [...] deta ils regarding real-time findings. READING SITE: [facility] Narrative Performed At Patient: DALILA OBRIEN Sex#: F # 1950 Abdirizak#: [id number] Location: [facility] NI OR NONE Procedure Requested: [id number] CT LUMBA R SPINE WO CONTRAST Reason for Exam: L4-L5 TLIF Exam Ordered: 07/28/2015 075 1 Check-in Date/Time: 07/28/[address] LUMBAR SPINE WO CONTRAST INDICATION: L4-L5 TLIF COMPARISON: 05/27/2015. Procedure Note Interface, Rad Results In - 07/28/2015 12:46 PM CDT Patient: DALILA OBRIEN Sex#: F # 1950 Abdirizak#: [id number] Location: [facility] NI OR NONE Procedure Requested: [id number] CT LUMBAR SPINE WO CONTRAST Reason for [...] full details regarding real-time findings. READING SITE: [facility] Performing Organization Address City/State/Zipcode Ph one Number [place]IE * Electrolytes (07/28/2015 6:50 AM CDT) Sodium 140 133 - 147 MEQ/L [facility] Potassium 4.3 3.5 - 5.3 MEQ/L [facility] Chloride 104 96 - 112 MEQ/L [facility] Carbon Dioxide 26 20 - 32 MEQ/L [facility] Anion Gap 9 5 - 17 [facility] Specimen Blood Performing Organization Address City/[facility] Ph one Number [address] [address] LABORATORIES documented in this encounter Visit Diagnoses [...]
--- OUTSIDE RECORDS SUMMARY | 2019-06-19 09:18 | XMS REPORT | Encounter Summary ---
Author Author [facility] Organization [facility] Address Unknown Phone Unavailable Care Team Providers Care Air Cargo Ground Operations Supervisor Name Role Phone Shannon Falk PCP Reason for Referral * Home Health Care (Routine) Referred By Contact Referred To Contact Status Reason Specialty Diagnoses / Procedures Frank Abdi MD [address] [facility] [address] [place] [address] Canceled Specialty Services Home Health Diagnoses Required Services Gait disturbance Reason for Visit * Auth/Cert (Routine) Referred By Contact Referred To Contact Status Reason Specialty Diagnoses / Procedures Yobany Riddle PA-C [address] [facility] [address] [place] [address] Diagnoses Radicular leg pain P rocedures Case request operating room: Left L4-L5 FUSION TRANSFORAMINAL LUMBAR INTERBODY SPINE LA ARTHDSIS POST/POSTEROLATRL/ POSTINTERBODY LUMBAR Encounter Details Care Team Description Date Type Department Frank Abdi MD [address] [facility] [address] [place], [place] [id number] Gait disturbance (Primary Dx); [facility] [address] 07/31/2015 [place], [place] [id number] Social History Date Tobacco Use Types Packs/Day [...] Riddle PA-C - 07/31/2015 7:31 AM CDT [facility] NEUROSURGERY INPATIENT DISCHARGE SUMMARY Patient: Dalila Obrien Age: 67 y.o. : 1950 Admit Date: 07/28/2015 Discharge Date and Time: 07/31/2015 6:11 PM On the day of admission, the patient was brought to the operative theater for L4 -L5 TLIF. The intraoperative and immediate postoperative course were uncomplica bradley. The patient was transferred from recovery to the general neurosurgical [facility]. There, she recovered well and [...] * Instructions* Yobany Riddle PA-C - 07/31/2015 [facility]surgery Clinic [address], [address] [place] [address] Lumbar Surgery Post Operative Instructions No lifting [...] up is in 3 weeks. Please call [phone] to schedule documented in this encounter Medications [...] LMSW - 07/31/2015 3:00 PM CDT 07/31/15 2762 Interventions Interventions D/C plan set up;Physician discussion [...] CDT I reviewed the note with the MEND WORKER and agree with the treatment plan. Faheem Mercado MD 08/03/2015 10:49 AM * Angela Clark, [facility] - 07/31/2015 2:29 PM CDT 07/31/15 1429 Discharge Planning Anticipated discharge destination Home Self Care Interventions Interventions Met with patient;Phone contact Met with the patient at bedside, she has now decided to go home with her melinda r. Contacted acute rehab at [facility], canceled the referral. * Angela Clark LMSW - 07/31/2015 2:04 PM CDT 07/31/15 1404 Interventions Interventions Phone contact Spoke with Venice Forestry Aide at [facility] acute rehab, admission RN is st campos in the process of reviewing the patient's clinical documentation. Venice conley call back with a decision as soon as possible. Angela Clark LMSW [phone] * Frank Abdi MD - 07/31/2015 7:46 AM CDT [facility] Neurosurgery Daily Progress Note Patient Name: Dalila [...] or home today Yobany Riddle PA-C Neurosurgery [facility] She is interested in going home. She refused home health, but will consider out patient PT. Reviewed all postoperative instructions, no NSAIDs, use vitamin D / calcium. We will initiate outpatient PT starting next week. We also will disc uss resuming RA medications w/ electrical contractor next week. Otherwise patient desc ribes no radicular symptoms, only incisional pain. She feels that her strength is improving. 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 Add ress/ Insurance/ PCP verified with patient. Pharmacy updated. Patient on day 2 of admission for lumbar stenosis. L4-5 TLIF on 07/28/15. PT/OT veronica doyle. PMR consulted and recommended outpt PT/OT. PT recommended walker. DAVID Rodríguez called at [phone]. Message about needing a walker order l [...] daughter's home w/outpt PT/OT when medically stable. Pottery Decorator will cont to follow. * Frank Abdi MD - 07/30/2015 7:54 AM CDT [facility] Neurosurgery Daily Progress Note Patient Name: Dalila [...] - Encourage IS Yobany Riddle PA-C Neurosurgery [facility] Doing well. May want to go home tomorrow. Otherwise radicular symptoms markedl y improved. Frank Abdi MD, MSc, FAANS Pager: [phone] 07/30/2015 7:54 AM * Frank Abdi MD - 07/29/2015 7:49 AM CDT [facility] Neurosurgery Daily Progress Note Patient Name: Dalila [...] - Encourage OOBTC Yobany Riddle PA-C Neurosurgery [facility] Doing well. Radicular symptoms improved. Frank Abdi MD, MSc, FAANS Pager: [phone] 07/29/2015 7:49 AM documented in this encounter H&P Notes * Frank Abdi MD - 07/28/2015 7:54 AM CDT [facility] NEUROSURGERY CONSULT NOTE NAME: Dalila Obrien : [...] 10 mg by mouth daily. 07/28/2015 at [facility] time atorvastatin (LIPITOR) 40 MG tablet Take [...] 100 mg by mouth daily. 07/27/2015 at [facility] time CURRENT MEDICATIONS: Current Facility-Administered Medications Medication [...] improvement. Frank Abdi MD, MSc, FAANS Pager: [phone] 07/28/2015 7:54 AM documented in this encounter [...] with her daughter arcadio n the [facility] following surgery. Patient feels she needs to be stronge r and needs more therapy prior to returning to a home setting. Informed patient [facility] has an inpatient acute rehab and offered patient a list of acute r ehabs in the [facility]. Patient requested a referral to [facility] te Rehab. Spoke with Venice at [facility] [phone] and faxed referral to [phone]. SW will continue to follow. Angela Clark LMSW [phone] * Yandel Garcia MD - 07/29/2015 10:59 AM CDT [facility] 07/29/2015 Patient Identification Patient's Name: Dalila Obrien [...] two story house with h er in [place], [place] with two steps to enter. Guest [...] extensio n, wrist extension, finger abduction and energy scheduler. 5/5 in R leg with hip flexion, [...] concerns. Yandel Garcia MD Internal Medicine, PGY-1 [phone] Electronically signed by Yandel Garcia M.D. 07/29/2015 [...] Stair Management Technique No rails;Step to pattern;Forwards (MANAGEMENT CONSULTING L, use of wall on R) Stair [...] she is discharging to her daughter's house. NURSING CLERK Angela given update Problem: Pain Goal: [...] in recliner with nursing staff present and Health Information Tech a rrived to transfer pt to PT [...] On 07/30/15 ADL Adaptive Equipment/Durable Medical Equipment Group Product Manager;Sock aid Lower Body Dressing Minimal Assistance Lower [...] Assistive Device None Prior Function Level of [place] Independent with ADLs;Independent with functional transfer s;Independent [...] daughter at d/c Prior Function Level of [place] Independent with ADLs;Independent with functional transfer s;Independent [...] Gait Gait Distance (Feet) 100 Assistive Device MANAGEMENT CONSULTING;Right (hallway rail L) Gait Level Surface Assistance [...] Arm SURGEON: Frank Abdi MD, MSc, FAANS RESIDENT/CASH ANALYST: Yobany Riddle PA-C ANESTHESIA: GET EBL: <30 [...] endotracheal anesthesia. Neuromonitoring electrodes were placed by automotive glass technician. The patient was then prone onto [...] was then brought into the field. A [employer] TAC 125 drill was used to perform [...] closure. Frank Abdi MD, MSc, FAANS Pager: [phone] 07/28/2015 12:15 PM documented in this encounter Plan of Treatment Care Team Description Date Type Specialty Vikas Ross MD [address] [facility] [address] [place] [address] [phone] 07/03/2019 Video Visit Cardiology Mayank Novoa, [address] [facility] [address] [place] [address] [phone] 08/06/2019 Appointment Pain Medicine Order Schedule Name Type Priority Associated Diag noses 1 Occurrences starting 07/31/2015 until 01/30/2016 Amb Referral To Home Outpatient Routine [facility] Referral documented as of this encounter [...] S1. 3. Mild lumbar spondylosis. READING SITE: [facility] Imaging Narrative Performed At Patient: DALILA OBRIEN Sex#: F # 1950 Abdirizak#: [id number] Location: [address] N402-01 Procedure Requested: [id number] XR LUMBA R SPINE 2 OR 3 [...] DALILA OBRIEN Sex#: F # 1950 Abdirizak#: [id number] Location: [address] N402-01 Procedure Requested: [id number] XR LUMBAR SPINE 2 OR 3 VIEWS [...] S1. 3. Mild lumbar spondylosis. READING SITE: [facility] Performing Organization Address City/State/Zipcode Ph one [...] deta ils regarding real-time findings. READING SITE: [facility] Narrative Performed At Patient: DALILA OBRIEN Sex#: F # 1950 Abdirizak#: [id number] Location: [facility] NI OR NONE Procedure Requested: [id number] CT LUMBA R SPINE WO CONTRAST Reason for Exam: L4-L5 TLIF Exam Ordered: 07/28/2015 075 1 Check-in Date/Time: 07/28/[address] LUMBAR SPINE WO CONTRAST INDICATION: L4-L5 TLIF COMPARISON: 05/27/2015. Procedure Note Interface, Rad Results In - 07/28/2015 12:46 PM CDT Patient: DALILA OBRIEN Sex#: F # 1950 Abdirizak#: [id number] Location: [facility] NI OR NONE Procedure Requested: [id number] CT LUMBAR SPINE WO CONTRAST Reason for [...] full details regarding real-time findings. READING SITE: [facility] Performing Organization Address City/State/Zipcode Ph one Number [place] * Electrolytes (07/28/2015 6:50 AM CDT) Sodium 140 133 - 147 MEQ/L [facility] Potassium 4.3 3.5 - 5.3 MEQ/L [facility] Chloride 104 96 - 112 MEQ/L [facility] Carbon Dioxide 26 20 - 32 MEQ/L [facility] Anion Gap 9 5 - 17 [facility] Specimen Blood Performing Organization Address City/State/Zipcode Ph one Number [address] [address] LABORATORIES documented in this encounter [...]
--- OUTSIDE RECORDS SUMMARY | 2019-06-19 09:18 | XMS REPORT | Encounter Summary ---
Author Author [facility] Organization [facility] Address Unknown Phone Unavailable Care Team Providers Care Bindery Assistant Name Role Phone Shannon Falk PCP Encounter Details Care Team Description Date Type Department Frank Abdi MD [address] [facility] [address] [place] [address] [phone] Encounter for consultation 05/25/2015 Imaging [facility] e Appointment Location Social History Date Tobacco [...] Specialty Vikas Ross MD [address] [facility] [address] [place] [address] [phone] 07/03/2019 Video Visit Cardiology Mayank Novoa DO [address] [facility] [address] [place] [address] [phone] 08/06/2019 Appointment Pain Medicine documented as of [...]
--- OUTSIDE RECORDS SUMMARY | 2019-06-19 09:18 | XMS REPORT | Encounter Summary ---
Author Author [facility] Organization [facility] Address Unknown Phone Unavailable Care Team Providers Care Numerical Control Operator Name Role Phone Shannon Falk PCP Reason for Referral * Auth/Cert (Routine) Referred By Contact Referred To Contact Status Reason Specialty Diagnoses / Procedures Yobany Riddle PA-C [address] [place] [address] Diagnoses Radicular leg pain P rocedures Case request operating room: Left L4-L5 FUSION TRANSFORAMINAL LUMBAR INTERBODY SPINE DE ARTHDSIS POST/POSTEROLATRL/ POSTINTERBODY LUMBAR Encounter Details Care Team Description Date Type Department Yobany Riddle PA-C [address] [place] [address] [phone] Radicular leg pain (Primary Dx) 06/08/2015 [facility] [address] [place] [address] Social History Date Tobacco Use Types Packs/Day [...] MD [address] [place] [address] [phone] 07/03/2019 Video Visit Cardiology Mayank Novoa, [facility] [address] [address] [phone] 08/06/2019 Appointment Pain Medicine documented as of this encounter Visit Diagnoses Diagnosis Radicular leg pain documented in this encounter
--- OUTSIDE RECORDS SUMMARY | 2019-06-19 09:18 | XMS REPORT | Encounter Summary ---
Author Author [facility] Organization [facility] Address Unknown Phone Unavailable Care Team Providers Care Sports Complex Attendant Name Role Phone Deering, Shannon PCP Encounter Details Care Team Description Date Type Department Frank Abdi MD [address] [place], [place] [id number] Spondylolisthesis of lumbar region (Prim marisol Dx) 06/08/[address] [facility] Neuro[facility] [address] [place], [place] [id number] Social History Date Tobacco Use Types Packs/Day [...] She is to follow up with her guide winder today. Dr. Brooke will need to le [...] it. She is scheduled to see an transformation coach later this week to be fitted for an AFO. Plan: - Follow up with Dr. Hernandez regarding medication management - AFO - Schedule for L4-5 TLIF when she is ready. Yobany Riddle PA-C Neurosurgery [facility] Frank Abdi MD, MSc, FAANS Minimally Invasive & Complex Spine Surgery Director of Spine Surgery [facility] Clinical golf course designer & Orthopedics [facility] documented in this encounter Plan of Treatment Care Team Description Date Type Specialty Vikas oRss MD [address] [facility] 230 [place] [address] [phone] 07/03/2019 Video Visit Cardiology Mayank Novoa DO [address] [facility] 1200 [place] [address] [phone] 08/06/2019 Appointment Pain Medicine documented as of this encounter Visit Diagnoses Diagnosis Spondylolisthesis of lumbar region documented in this encounter
--- OUTSIDE RECORDS SUMMARY | 2019-06-19 09:18 | XMS REPORT | Encounter Summary ---
Author Author [facility] Organization [facility] Address Unknown Phone Unavailable Care Team Providers Care Dispatcher Radioactive Waste Disposal Name Role Phone Shannon Falk PCP Reason for Visit * Auth/Cert (Routine) Referred By Contact Referred To Contact Status Reason Specialty Diagnoses / Procedures Yobany Riddle PA-C [address] [address] Diagnoses Radicular leg pain P rocedures Case request operating room: Left L4-L5 FUSION TRANSFORAMINAL LUMBAR INTERBODY SPINE FL ARTHDSIS POST/POSTEROLATRL/ POSTINTERBODY LUMBAR Encounter Details Care Team Description Date Type Department Hailey Boles MD [address] [place] [address] [phone] Jacki Farfan DO [address] [place] [address] [phone] 07/28/2015 Anesthesia [facility] Hospit al Event [address] [place] [address] Anesthesia Record Responsible Anesthesiologist Anesthesia Start Time [...] order BALDO Bai 09/09/18 0836 by User [employer] (Retired 07/28/15; 0908; Back; 09/09/18 (This LD [...] discussed with patient. Plan discussed with anesthesiologist music assistant. Post-operative analgesia: routine analgesia and antiemetics Recovery plan: PACU Risk factors for PONV: female PONV risk level: high Notes 64 yo female presenting for L4-5 fusion documented in this encounter Plan of Treatment Care Team Description Date Type Specialty Vikas Ross MD [address] [facility] 230 [place] [address] [phone] 07/03/2019 Video Visit Cardiology Mayank Novoa DO [address] [facility] 1200 [place] [address] [phone] 08/06/2019 Appointment Pain Medicine documented as of [...]
--- OUTSIDE RECORDS SUMMARY | 2019-06-19 09:18 | XMS REPORT | Encounter Summary ---
Author Author [facility] Organization [facility] Address Unknown Phone Unavailable Care Team Providers Care Stoner Hand Name Role Phone Shannon Falk PCP Reason for Referral * Diagnostic Imaging (Routine) Referred By Contact Referred To Contact Status Reason Specialty Diagnoses / Procedures Yobany Riddle PA-C [address] [facility] [address] [place] [address] Mpi Dexa [address] [facility] [address] [place] [address] Closed Radiology Diagnoses Radicular leg pain P rocedures DEXA Bone Density Hip Pelvis Spine Encounter Details Care Team Description Date Type Department Frank Abdi MD [address] [facility] [address] [place], [place] [id number] Radicular leg pain (Primary Dx) 05/25/[address] [facility] Neurosu rgery [address] [place], [place] [id number] Social History Date Tobacco Use Types Packs/Day [...] examined and WNL Rapid alternating movements & ttdrvo-uh-zkco intact Kamara's negative Bicep Tricep Wrist Flex Wrist Ext Security Incident Response Engineer [employer] Right 5 5 5 5 [...] when studies complete Yobany Riddle PA-C Neurosurgery [facility] Frank Abdi MD, MSc, FAANS Minimally Invasive & Complex Spine Surgery Director of Spine Surgery [facility] Clinical etiquette coach & Orthopedics [facility] documented in this encounter Plan of Treatment Care Team Description Date Type Specialty Vikas Ross MD [address] [facility] 230 [place] [address] [phone] 07/03/2019 Video Visit Cardiology Mayank Novoa DO [address] [facility] 1200 [place] [address] [phone] 08/06/2019 Appointment Pain Medicine documented as of [...] or edited the final report. READING SITE: [facility]. Narrative Performed At Patient: DALILA OBRIEN Sex#: F # 1950 Abdirizak#: Location: [facility] XRAY Procedure Requested: [id number] XR LUMBA R SPINE 2 OR 3 [...] OBRIEN Sex#: F # 1950 Abdirizak#: Location: [facility] XRAY Procedure Requested: [id number] XR LUMBAR SPINE 2 OR 3 VIEWS [...] or edited the final report. READING SITE: [employer]. Performing Organization Address City/State/Zipcode Ph one Number [place] * DEXA Bone Density Hip Pelvis Spine (05/27/2015 9:30 AM CDT) Specimen Impressions Performed At IMPRESSION: [place] Bone mineral density is compatible with osteopenia. Please also see the full computer gener ated report. READING SITE: [facility] Narrative Performed At Patient: DALILA OBRIEN Phone#: [facility] Rec#: [id number] Sex#: F # 1950 Abdirizak#: [id number] Location: [facility] DEXA Procedure Requested: [id number] DEXA BON E DENSITY HIP PELVIS SPINE Reason for Exam: Radicular leg pain Exam Ordered: 05/27/2015 091 4 Exam Date/Time: 05/27/2015929 Check-in Date/Time: 05/27/2015914 DEXA BONE DENSITY HIP PELVIS SPINE DATE: May 27, 2015 09:30:43 AM INDICATION: 64-year-old postmenopausal female COMPARISON: None available. TECHNIQUE: Bone densitometry was perf ormed on a [email or web address] DXA scanner with bone mineral density and [...] CDT Patient: DALILA OBRIEN Phone#: Med Rec#: [id number] Sex#: F # 1950 Abdirizak#: [id number] Location: [facility] DEXA Procedure Requested: [id number] DEXA BONE DENSITY HIP PELVIS SPINE Reason for Exam: Radicular leg pain Exam Ordered: 05/27/2015913 Exam Date/Time: 05/27/2015929 Check-in Date/Time: 05/27/2015914 DEXA BONE DENSITY HIP PELVIS SPINE DATE: May 27, 2015 09:30:43 AM INDICATION: 64-year-old postmenopausal female COMPARISON: None available. TECHNIQUE: Bone densitometry was performed on a [email or web address] DXA scanner with bone mineral density and [...] Performing Organization Address City/State/Zipcode Ph one Number [facility] documented in this encounter Visit Diagnoses Diagnosis Radicular leg pain documented in this encounter
--- OUTSIDE RECORDS SUMMARY | 2019-06-19 09:18 | XMS REPORT | Encounter Summary ---
Author Author [facility] Organization [facility] Address Unknown Phone Unavailable Care Team Providers Care Director Of Neurology Name Role Phone Shannon Falk PCP Reason for Referral * Diagnostic Lab (Routine) Referred By Contact Referred To Contact Status Reason Specialty Diagnoses / Procedures Frank Abdi MD [address] [address] Closed Diagnoses Lumbar stenosis P rocedures Intraoperative Neurophysiologic Monitoring Reason for Visit * Auth/Cert (Routine) Referred By Contact Referred To Contact Status Reason Specialty Diagnoses / Procedures Yobany Riddle PA-C [address] [address] Diagnoses Radicular leg pain P rocedures Case request operating room: Left L4-L5 FUSION TRANSFORAMINAL LUMBAR INTERBODY SPINE ID ARTHDSIS POST/POSTEROLATRL/ POSTINTERBODY LUMBAR Encounter Details Care Team Description Date Type Department Frank Abdi MD [address] [id number] Lumbar stenosis 07/28/2015 [facility] Hospit al Encounter [address] [place], [place] [id number] Social History Date Tobacco Use Types Packs/Day [...] Specialty Vikas Ross MD [address] [facility] [address] [place] [address] [phone] 07/03/2019 Video Visit Cardiology Mayank Novoa DO [address] [address] [phone] 08/06/2019 Appointment Pain Medicine documented as of this encounter Procedures Comments Procedure Name Priority Date/Time Associated Diag nosis INTRAOPERATIVE Routine 07/28/2015 Lumbar stenosis NEUROPHYSIOLOGIC 12:43 PM CDT MONITORING documented in this encounter Results * Intraoperative Neurophysiologic Monitoring (07/28/2015 12:43 PM CDT) Narrative Performed At Kash Cabezas MD 07/28/2015 11:49 AM [facility] NEURODIAGNOSTICS - Intraoperative neuro physiologic monitoring report PROCEDURE DATE: 07/28/2015 PROCEDURE: L4-L5 transforaminal lumbar interbody fusion (TLIF). MONITORING START TIME: 07. MONITORING END TIME: 1145. REFERRING PHYSICIAN: Frank knapp MD INTERPRETING PHYSICIAN: Kash willis MD CLINICAL [...] spontaneous EMG activity was observed. . Pager: [phone]. Performing Organization Address City/State/Zipcode Ph one Number [facility] documented in this encounter Visit Diagnoses Diagnosis Lumbar stenosis Spinal stenosis of lumbar region documented in this encounter
--- OUTSIDE RECORDS SUMMARY | 2019-06-19 09:18 | XMS REPORT | Encounter Summary ---
Author Author [facility] Organization [facility] Address Unknown Phone Unavailable Care Team Providers Care Supervisor Dry Cleaning Name Role Phone Shannon Falk PCP Encounter Details Care Team Description Date Type Department Yobany Riddle PA-C [address] [facility] [address] [place], [place] [id number] Radicular leg pain 05/27/2015 [facility] [address] [facility] [address] [place] [address] Social History Date Tobacco Use Types Packs/Day [...] Vikas Ross MD [address] [facility] 230 [place] [address] [phone] 07/03/2019 Video Visit Cardiology Mayank Novoa DO [address] [facility] 1200 [place] [address] [phone] 08/06/2019 Appointment Pain Medicine documented as of [...] or edited the final report. READING SITE: [facility]. Narrative Performed At Patient: HARI OBRIEN Sex#: F # 1950 Abdirizak#: Location: [facility] XRAY Procedure Requested: [id number] XR LUMBA R SPINE 2 OR 3 [...] OBRIEN Sex#: F # 1950 Abdirizak#: Location: [facility] XRAY Procedure Requested: [id number] XR LUMBAR SPINE 2 OR 3 VIEWS [...] edited the final report. READING SITE: [facility]. Performing Organization Address City/State/Zipcode Ph one Number [facility] documented in this encounter Visit Diagnoses Diagnosis Radicular leg pain documented in this encounter
--- OUTSIDE RECORDS SUMMARY | 2019-06-19 09:18 | XMS REPORT | Encounter Summary ---
Author Author [facility] Organization [facility] Address Unknown Phone Unavailable Care Team Providers Care Quality Control Tester Name Role Phone Shannon Falk PCP Encounter Details Care Team Description Date Type Department Frank Abdi MD 43[address] [facility] 710 [place], [place] [phone] Encounter for consultation (Primary Dx) 05/25/2015 [facility] [address] [place], [place] [address] Social History Date Tobacco Use Types Packs/Day [...] Specialty Vikas Ross MD [address] [facility] 230 [place] [address] [phone] 07/03/2019 Video Visit Cardiology Mayank Novoa DO 4321 [facility] 1200 [place], [place] [address] 08/06/2019 Appointment Pain Medicine documented as of this encounter Results * MRI Outside images for PACS Spine (05/25/2015 1:55 PM CDT) Specimen Performing Organization Address City/State/Zipcode Ph one Number [facility] documented in this encounter Visit Diagnoses Diagnosis Encounter for consultation documented in this encounter
--- OUTSIDE RECORDS SUMMARY | 2019-06-19 09:18 | XMS REPORT | Encounter Summary ---
Author Author [facility] Organization [facility] Address Unknown Phone Unavailable Care Team Providers Care Drawing Tender Name Role Phone Shannon Falk PCP Encounter Details Care Team Description Date Type Department Venice Hernandez RN 07/30/2015 Telephone [facility] Hospit al [address] [place] [address] Social History Date Tobacco Use [...] LPN - 07/30/2015 11:33 AM CDT Hanna, care transport nurse from [facility], states that PT is recommending a walker and as ks that we place [place]. [place] [phone]. documented in this encounter Plan of Treatment Care Team Description Date Type Specialty Vikas Ross MD [address] [facility] 230 [place] [address] [phone] 07/03/2019 Video Visit Cardiology Mayank Novoa DO 4[address] [facility] [address] [place] [address] [phone] 08/06/2019 Appointment Pain Medicine documented as of this encounter Visit Diagnoses Not on filedocumented in this encounter
--- OUTSIDE RECORDS SUMMARY | 2019-06-19 09:18 | XMS REPORT | Encounter Summary ---
Author Author [facility] Organization [facility] Address Unknown Phone Unavailable Care Team Providers Care Transportation Maintenance Specialist Name Role Phone Shannon Falk PCP Reason for Referral * Diagnostic Imaging (Routine) Referred By Contact Referred To Contact Status Reason Specialty Diagnoses / Procedures Yobany Riddle PA-C [address] [place] [address] Mpi Dexa [address] [facility] 1400 [place] [address] Closed Radiology Diagnoses Radicular leg pain P rocedures DEXA Bone Density Hip Pelvis Spine Reason for Visit * Diagnostic Imaging (Routine) Referred By Contact Referred To Contact Status Reason Specialty Diagnoses / Procedures Yobany Riddle PA-C [address] [place] [address] Mpi Dexa [address] [facility] [address] [place] [address] Closed Radiology Diagnoses Radicular leg pain P rocedures DEXA Bone Density Hip Pelvis Spine Encounter Details Care Team Description Date Type Department Yobany Riddle PA-C [address] [place] [address] [phone] Radicular leg pain 05/27/2015 [facility] [address] [facility] [place] [address] Social History Date Tobacco Use Types Packs/Day [...] Date Type Specialty Vikas Ross MD 58[address] [facility] 230 [place] [address] [phone] 07/03/2019 Video Visit Cardiology Mayank Novoa DO 4[address] [facility] 1200 [place] [address] [phone] 08/06/2019 Appointment Pain Medicine documented as of [...] full computer gener ated report. READING SITE: [facility] Narrative Performed At Patient: HARI OBRIEN Phone#: Med Rec#: [id number] Sex#: F # 1950 Abdirizak#: [id number] Location: [facility] DEXA Procedure Requested: [id number] DEXA BON E DENSITY HIP PELVIS SPINE Reason for Exam: Radicular leg pain Exam Ordered: 05/27/2015 091 4 Exam Date/Time: 05/27/2015929 Check-in Date/Time: 05/27/2015914 DEXA BONE DENSITY HIP PELVIS SPINE DATE: May 27, 2015 09:30:43 AM INDICATION: 64-year-old postmenopausal female COMPARISON: None available. TECHNIQUE: Bone densitometry was perf ormed on a [employer] DXA scanner with bone mineral density and [...] 9:58 AM CDT Patient: HARI OBRIEN Phone#: X-1 Rec#: [id number] Sex#: F # 1950 Abdirizak#: [id number] Location: [facility] DEXA Procedure Requested: [id number] DEXA BONE DENSITY HIP PELVIS SPINE Reason for Exam: Radicular leg pain Exam Ordered: 05/27/2015913 Exam Date/Time: 05/27/2015929 Check-in Date/Time: 05/27/2015914 DEXA BONE DENSITY HIP PELVIS SPINE DATE: May 27, 2015 09:30:43 AM INDICATION: 64-year-old postmenopausal female COMPARISON: None available. TECHNIQUE: Bone densitometry was performed on a [employer] DXA scanner with bone mineral density and [...] the full computer generated report. READING SITE: [facility] Address City/State/Zipcode Ph one Number [place] documented in this encounter Visit Diagnoses Diagnosis Radicular leg pain documented in this encounter
--- OUTSIDE RECORDS SUMMARY | 2019-06-19 09:19 | XMS REPORT | Encounter Summary ---
Author Author [facility] Organization [facility] Address Unknown Phone Unavailable Care Team Providers Care Retail Sales Associate Seasonal Name Role Phone PCP Unavailable Encounter Details Care Team Description Date Type Department Az Casanova MD [address] [facility] [address] [place] [address] [phone] 10/07/2011 [facility] al Encounter [address]01 [place] [address] Social History Date Tobacco Use Types Packs/Day Years Used Never Assessed Sex Assigned at Date Recorded Female Industry Job Start Date Occupation Not on file Not on file Not on file Travel End Travel History Travel Start No recent travel history available. documented as of this encounter Plan of Treatment Care Team Description Date Type Specialty Vikas Ross MD 58[address] [facility] 230 [place] [address] [phone] 07/03/2019 Video Visit Cardiology Mayank Novoa DO 4321 [facility] 1200 [place] [address] [phone] 08/06/2019 Appointment Pain Medicine documented as of this encounter Procedures Comments Procedure Name Priority Date/Time Associated Diag nosis ANTI CYCLIC CITRULLINATED Routine 10/07/2011 PEPTIDE 9:00 AM CDT ABBE QUALITATIVE Routine 10/07/2011 9:00 AM CDT documented in this encounter Results * Anti Cyclic Citrullinated Peptide (10/07/2011 9:00 AM CDT) Anti Cyclic 14 0 - 30 UNITS SUNQUEST Citrullinated Peptide Specimen Blood Performing Organization Address [facility] one Number [facility] [address] [place] [address] SUNQUEST * ABBE Qualitative (10/07/2011 9:00 AM CDT) ABBE Qualitative Negative Negative SUNQUEST Specimen Blood Performing Organization Address [facility] one Number [facility] [address] [place] [address] SUNQUEST documented in this encounter Visit Diagnoses Not on filedocumented in this encounter
--- OUTSIDE RECORDS SUMMARY | 2019-06-19 09:35 | XMS REPORT | Continuity of Care Document ---
Author Organization Unknown Address Unknown Phone Unavailable Allergies Active Description Code Type Severity Reaction Onset Reported/Identified Relationship to Patient Clinical Status Yes No Known Drug Allergies [id number] Drug Allergy Unknown N/A 03/23/2012 Yes Sulfa (Sulfonamide Antibiotics) [id number] Drug Allergy Moderate HIVES 2015 Yes amlodipine [id number] Drug Allerg y Mild N/A 03/18/2018 Medications [...] DEYSI LY, IBAN Rudd Ot Z79.899 OTHER PACKAGING MACHINE OPERATOR (CURRENT) DRUG THERAPY 05/23/2016 MELIZA LACY MD [...] 05/23/2016 IBAN JO MD Ot Z79.899 OTHER PACKAGING MACHINE OPERATOR (CURRENT) DRUG THERAPY 05/23/2016 MELIZA LACY MD Ot Z12.31 ENCNTR SCREEN MAMMOGRAM FOR MALIGNANT NE 05/23/2016 MAY ROMERO MD Ot Z01.818 ENCOUNTER FOR OTHER PREPROCEDURAL EXAMIN 05/24/2016 JUAN BELLA PARTITION NOTCHER Ot M79.672 PAIN IN LEFT FOOT 05/24/2016 JUAN BELLA PARTITION NOTCHER Ot M79.675 PAIN IN LEFT TOE(S) 06/29/2016 JUAN BELLA PARTITION NOTCHER Ot M79.672 PAIN IN LEFT FOOT 06/29/2016 JUAN BELLA PARTITION NOTCHER Ot M79.675 PAIN IN LEFT TOE(S) 07/07/2016 [...] 07/07/2016 IBAN JO MD Ot Z79.899 OTHER LONG-TERM (CURRENT) DRUG THERAPY 07/07/2016 MELIZA LACY MD Ot Z12.31 ENCNTR SCREEN MAMMOGRAM FOR MALIGNANT NE 07/07/2016 MAY ROMERO MD Ot Z01.818 ENCOUNTER FOR OTHER PREPROCEDURAL EXAMIN 07/07/2016 JUAN BELLA PARTITION NOTCHER Ot M79.672 PAIN IN LEFT FOOT 07/07/2016 JUAN BELLA PARTITION NOTCHER Ot M79.675 PAIN IN LEFT TOE(S) 07/07/2016 JUAN BELLA PARTITION NOTCHER Ot Z12.31 ENCNTR SCREEN MAMMOGRAM FOR MALIGNANT NE 07/07/2016 JUAN BELLA PARTITION NOTCHER Ot Z12.31 ENCNTR SCREEN MAMMOGRAM FOR MALIGNANT NE 07/28/2016 JUAN BELLA PARTITION NOTCHER Ot Z12.31 ENCNTR SCREEN MAMMOGRAM FOR MALIGNANT NE 01/03/2018 SOTERO LY, SWATI Huertas Ot V76.12 OTH SCREEN MAMMO-MALIGN NEOPLASM OF PEDRO 01/03/2018 VANGIE LY, CORIN Pompa Ot 714.0 RHEUMATOID ARTHRITIS 01/03/2018 VANGIE LY, CORIN Pompa Ot V58.6 9 OTH MED,LT,CURRENT USE 01/03/2018 JUAN BELLA PARTITION NOTCHER Ot M54.42 LUMBAGO WITH SCIATICA, LEFT SIDE 01/03/2018 DEYSI LY, IBAN Rudd Ot M51. 16 INTERVERTEBRAL DISC DISORDERS W RADICULO 01/03/2018 DEYSI LY, IBAN Rudd Ot Z79.899 OTHER PACKAGING MACHINE OPERATOR (CURRENT) DRUG THERAPY 01/03/2018 MELIZA LACY MD Ot Z12.31 ENCNTR SCREEN MAMMOGRAM FOR MALIGNANT NE 01/03/2018 HEATHER LY, MAY Cahvez Ot Z01.818 ENCOUNTER FOR OTHER PREPROCEDURAL EXAMIN 01/03/2018 JUAN BELLA PARTITION NOTCHER Ot M79.672 PAIN IN LEFT FOOT 01/03/2018 JUAN BELLA PARTITION NOTCHER Ot M79.675 PAIN IN LEFT TOE(S) 01/03/2018 JUAN BELLA PARTITION NOTCHER Ot Z12.31 ENCNTR SCREEN MAMMOGRAM FOR MALIGNANT NE 01/03/2018 MELIZA LACY MD Ot Z12.31 ENCNTR SCREEN MAMMOGRAM FOR MALIGNANT NE 01/04/2018 MELIZA LACY MD Ot R92.8 OTH ABN AND INCONCLUSIVE FINDINGS ON DX 01/04/2018 MELIZA LACY MD Ot Z12.31 ENCNTR SCREEN MAMMOGRAM FOR MALIGNANT NE 01/25/2018 MELIZA LACY MD Ot R92.8 OTH ABN AND INCONCLUSIVE FINDINGS ON DX 01/25/2018 MELZIA LCAY MD Ot Z12.31 ENCNTR SCREEN MAMMOGRAM FOR MALIGNANT NE 01/30/2018 BJ ALTMAN APRN Ot R92.2 INCONCLUSIVE MAMMOGRAM 02/22/2018 BJ ALTMAN SANITATION LABORER Ot R92.2 INCONCLUSIVE MAMMOGRAM 03/18/2018 Ot 255.0 [...] Ot M06.9 RHEUMATOID ARTHRITIS, UNSPECIFIED 05/23/2018 MARQUIS MYERS DEQUAN Ot R11.2 NAUSEA WITH VOMITING, UNSPECIFIED [...] Ot M54.6 PAIN IN THORACIC SPINE 01/22/2019 MELZIA LACY MD Ot I1 0 ESSENTIAL (PRIMARY) HYPERTENSION 01/22/2019 BAMBI LY, MELIZA Barrett Ot M19.90 UNSPECIFIED OSTEOARTHRITIS, UNSPECIFIED 01/22/2019 MELIZA [...] Z12.31 ENCNTR SCREEN MAMMOGRAM FOR MALIGNANT NE 06/10/2019 MADI ZAMBRANO APRN Ot E03 .9 HYPOTHYROIDISM, UNSPECIFIED 06/10/2019 MADI ZAMBRANO APRN Ot F32 .9 MAJOR DEPRESSIVE DISORDER, SINGLE EPISOD 06/10/2019 MADI ZAMBRANO APRN Ot I10 ESSENTIAL (PRIMARY) HYPERTENSION 06/10/2019 MADI ZAMBRANO APRN Ot S91.311A LACERATION WITHOUT FOREIGN BODY, RIGHT F 06/10/2019 MADI ZAMBRANO APRN Ot W26.8XXA CONTACT WITH OTHER SHARP OBJECT(S), NEC, 06/10/2019 MADI ZAMBRANO APRN Ot Z88 .2 ALLERGY STATUS TO SULFONAMIDES STATUS 06/10/2019 MADI ZAMBRANO APRN Ot Z88 .8 ALLERGY STATUS TO OTH DRUG/MEDS/BIOL SUB 06/10/2019 MADI ZAMBRANO APRN Ot Z96.651 PRESENCE OF RIGHT ARTIFICIAL KNEE JOINT Procedures There is no data. Results Test [...] Status Pt. Type Provider Facility Loc./Unit Complaint [id number] 06/07/2019 15:58:00 16:30:00 DIS Outpatient MADI ZAMBRANO APRN [facility] ER R FOOT LAC [id number] 01/25/2019 10:29:00 09:12:00 DIS Outpatient MELIZA LACY MD [facility] REHAB MID THORACIC BACK PAIN [id number] 03/04/2019 08:51:00 23:59:59 CLS Outpatient MELIZA LACY MD [facility] RAD SCREENING [id number] 01/24/2019 12:23:00 23:59:59 CLS Preadmit MELIZA LACY MD [facility] RAD SCREENING [id number] 01/09/2019 08:43:00 00:01:00 DIS Outpatient MELIZA LACY MD [facility] REHAB MID THORACIC BACK PAIN [id number] 08/02/2018 07:41:00 23:59:59 CLS Outpatient MELIZA LACY MD [facility] RAD L BREAST DENSITY 6 MO FOLLOW UP [id number] 03/18/2018 09:54:00 11:10:00 DIS Outpatient DEQUAN CHO DO [facility] 4TH HYPONATREMIA [id number] 01/31/2018 08:17:00 018 23:59:59 CLS Outpatient BJ ALTMAN APRN [facility] RAD L BREAST DENSITY [id number] 01/03/2018 09:37:00 018 23:59:59 CLS Outpatient MELIZA LACY MD [facility] RAD SCREENING [id number] 07/07/2016 11:17:00 017 23:59:59 CLS Outpatient JUAN BELLA [facility] RAD Z12.31 SCREENIN G [id number] 05/23/2016 11:10:00 017 23:59:59 CLS Outpatient JUAN BELLA PARTITION NOTCHER [facility] RAD L MIQUEL CHAPMAN IN [id number] 10/15/2015 08:30:00 016 09:33:00 DIS Outpatient SAAD BARRAZA [facility] REHAB RADICULAR LEG PAIN [id number] 05/01/2015 09:21:00 11:02:00 DIS Outpatient MELIZA LACY MD [facility] REHAB L FOOT DROP; L4/L5 DDD [id number] 03/27/2015 08:11:00 016 10:45:00 DIS Outpatient MAY ROMERO MD [facility] FAMILY HISTORY COLON CA NCER;HISTORY COLON POLYPS [id number] 03/24/2015 05:43:00 016 23:59:59 CLS Outpatient MAY ROMERO MD [facility] PREOP FAMILY HISTORY COLON CA NCER; HISTORY COLON POLYPS [id number] 03/23/2015 10:59:00 016 23:59:59 CLS Outpatient MELIZA LACY MD [facility] RAD SCREENING [id number] 02/06/2015 10:16:00 23:59:59 CLS Outpatient IBAN JO MD [facility] CARD DISC DISORDER W/ RADICU LOPATHY LUMBAR [id number] 12/11/2014 15:42:00 015 23:59:59 CLS Outpatient JUAN BELLA [facility] RAD LT SCIATA PAIN [id number] 01/20/2014 10:02:00 014 23:59:59 CLS Outpatient CORIN VENCES MD [facility] LAB HIGH RX RISK,RA [id number] 12/18/2013 11:31:00 23:59:59 CLS Outpatient SWATI BEY MD [facility] RAD SCREENING [id number] 2013 13:08:00 014 11:30:00 DIS Inpatient SOTERO LY, SWATI Huertas [facility] 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
== END 2019-06-19 09:21 | disposition home or self-care (01) ==
LOC: EDUNIT# 09:03 → ER 09:04
DX: S91.311D Laceration without foreign body, right foot, subsequent encounter (principal); X58.XXXD Exposure to other specified factors, subsequent encounter
CPT/HCPCS: 99281

== ENCOUNTER 2019-07-24 18:15 | Inpatient (IN) | payer MEDICARE, OTHER ==
[~2019-07-24] VITALS: Ht 162 cm; Wt 80.4 kg
[2019-07-24] MEDS ORDERED: NS IV 1000 ML 1,000 ML IV ONE (18:34)
[2019-07-24] MEDS ORDERED: ONDANSETRON 4 MG/2 ML (SDV) Z0FRAN IVP ONE (18:45)
[2019-07-24] MEDS ORDERED: FAMOTIDINE 20MG/2ML IV (PEPCID) IVP ONE (18:45)
[2019-07-24 18:46] LABS: BASOPHILS % (AUTO) 1 % (0-10); EOSINOPHILS # (AUTO) 0.2 10^3/uL (0.0-0.3); EOSINOPHILS % (AUTO) 3 % (0-10); HEMATOCRIT 41 % (35-52); HEMOGLOBIN 13.6 G/DL (11.5-16.0); LYMPHOCYTES # (AUTO) 0.8 X 10^3 (1.0-4.0); LYMPHOCYTES % (AUTO) 9 % (12-44); MEAN CORPUSCULAR HEMOGLOBIN 30 PG (25-34); MEAN CORPUSCULAR HGB CONC 33 G/DL (32-36); MEAN CORPUSCULAR VOLUME 90 FL (80-99); MEAN PLATELET VOLUME 9.8 FL (7.4-10.4); MONOCYTES # (AUTO) 0.5 X 10^3 (0.0-1.0); MONOCYTES % (AUTO) 6 % (0-12); NEUTROPHILS # (AUTO) 6.8 X 10^3 (1.8-7.8); NEUTROPHILS % (AUTO) 81 % (42-75); PLATELET COUNT 261 10^3/uL (130-400); RED CELL DISTRIBUTION WIDTH 12.6 % (10.0-14.5); WHITE BLOOD COUNT 8.4 10^3/uL (4.3-11.0)
--- NOTE | 2019-07-24 18:46 | ED GI ---
General Chief Complaint: Abdominal/GI Problems Stated Complaint: NAUSEA, HEADACHE Nursing Triage Note: PT AMBULATE TO ROOM 06 WITH C/O N/V, HEADACHE STARTING THIS MORNING. PT REPORTS HAVING A STENT PLACED YESTERDAY AT [facility] [place] . PT REPORTS ATTEMPTING TO CONTACT AT [facility] X5 TIMES TODAY AND DID NOT RECEIVE A RETURN PHONE CALL. PT STATES SHE CONTACTED HER PCP AND WAS TOLD TO CONTACT AT [facility]. Sepsis Screen: No Definite Risk Source of Information: Patient Exam Limitations: No Limitations History of Present Illness Date Seen by Provider: Jul 24, 2019 Time Seen by Provider: 18:28 Initial Comments This 68 year old woman presents to the ER with persistent nausea, vomiting, and headache since this morning. She denies significant pain in the chest or abdomen. She had a coronary stent placed by Dr. Vikas Ross at [facility] yesterday. She has passed a small amount of bowel movement and flat us today. She denies any history of bowel obstruction but she has had abdominal surgery. She is afebrile. During the exam she has persistent belching and gagging. She states her current symptoms feel like a prior "sodium crash". Allergies and Home Medications Allergies Coded Allergies: Sulfa (Sulfonamide Antibiotics) (Verified Allergy, Intermediate, HIVES, 03/24/15) amlodipine (Verified Allergy, Mild, 03/18/18) swelling to lower extremities Home Medications Cephalexin 500 Mg Capsule, 500 MG PO TID Prescribed by: MADI ZAMBRANO on 06/07/19 1621 Citalopram Hydrobromide 20 Mg Tablet, 20 MG PO DAILY, (Reported) Hydrocodone Bit/Acetaminophen 1 Each Tablet, 1 EACH PO Q4-6HR PRN for PAIN- MODERATE, (Reported) Levothyroxine Sodium 75 Mcg Tablet, 75 MCG PO DAILY, (Reported) Losartan Potassium 100 Mg Tablet, 100 MG PO DAILY, (Reported) Metoprolol Succinate 25 Mg Tab.er.24h, 25 MG PO DAILY Prescribed by: MELIZA FALK on 03/20/18 0850 Patient Home Medication List Home Medication List Reviewed: Yes Review of Systems Review of Systems Constitutional: no symptoms reported EENTM: No Symptoms Reported Respiratory: No Symptoms Reported Cardiovascular: See HPI Gastrointestinal: See HPI Genitourinary: No Symptoms Reported Musculoskeletal: no symptoms reported Skin: no symptoms reported Psychiatric/Neurological: No Symptoms Reported Endocrine: No Symptoms Reported Hematologic/Lymphatic: No Symptoms Reported Past Xvnolhy-Xqrltn-Rcwwtg Hx Past Med/Social Hx: Reviewed Nursing Past Med/Soc Hx Patient Social History Alcohol Use: Denies Use Recreational Drug Use: No Smoking Status: Never a Smoker 2nd Hand Smoke Exposure: No Recent Foreign Travel: No Contact w/Someone Who Travel: No Recent Infectious Disease Expo: No Recent Hopitalizations: Yes (TOTAL KNEE REPLACEMENT RIGHT KNEE 18 DAYS AGO, HEART STENT PLACED 07/23/19) Physical Abuse: No Sexual Abuse: No Mistreated: No Fear: No Immunizations Up To Date PED Vaccines UTD: Yes Seasonal Allergies Seasonal Allergies: No Past Medical History Surgeries: Yes (HEART STENT) Hysterectomy, Orthopedic, Tonsillectomy Respiratory: No Cardiac: Yes High Cholesterol, Hypertension Neurological: No Reproductive Disorders: No 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 Sexually Transmitted Disease: No HIV/AIDS: No Genitourinary: No Gastroesophageal Reflux Musculoskeletal: Yes (KNEE REPLACEMENT, FOOT SURGERIES, ROTATOR CUFF SURGERY) Arthritis, Rheumatoid Arthritis Endocrine: Yes Hypothyroidsim HEENT: No Cancer: No Psychosocial: No Depression Integumentary: No Blood Disorders: No Family Medical History Reviewed Nursing Family Hx Chest pain 19 FATHER Congestive heart failure 19 FATHER Family history: Alzheimer's disease 19 MOTHER Family history: Cardiovascular disease 19 FATHER Family history: Hypertension 19 FATHER Family history: Thyroid disorder G8 SISTER Heart disease 19 FATHER Hypercholesterolemia 19 FATHER 19 MOTHER G8 BROTHER Myocardial infarction 19 FATHER Stroke 19 FATHER No Family History of: Abdominal aortic aneurysm Leighton's disease Alcoholism Aphasia Cancer Cancer of colon Cataract Cystic fibrosis Dementia Dysphagia Family history: Diabetes mellitus Family history: Gastrointestinal disease History of - anemia History of drug abuse Human immunodeficiency virus (HIV) seropositivity Infertile Parkinson's disease Prostate cancer Psychotic disorder Seizure disorder Tuberculosis Physical Exam Vital Signs Vital Signs - First Documented 07/24/19 18:25 Temp 36.9 Pulse 100 Resp 18 B/P (MAP) 165/107 (126) O2 Delivery Room Air Capillary Refill : Less Than 3 Seconds Height/Weight/BMI Height: 5'4.00" Weight: 174lbs. 6.0oz. 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, no motor/sensory deficits, alert, normal mood/affect, oriented x 3 Skin: normal color, warm/dry Procedures/Interventions Suture Size: 4-0 Progress/Results/Core Measures Results/Orders Lab Results Laboratory Tests Test 07/24/19 18:43 07/24/19 21:11 07/24/19 21:30 Range/Units White Blood Count 8.4 4.3-11.0 10^3/uL Red Blood Count 4.60 4.35-5.85 10^6/uL Hemoglobin 13.6 11.5-16.0 G/DL Hematocrit 41 35-52 % Mean Corpuscular Volume 90 80-99 FL Mean Corpuscular Hemoglobin 30 25-34 PG Mean Corpuscular Hemoglobin Concent 33 32-36 G/DL Red Cell Distribution Width 12.6 10.0-14.5 % Platelet Count 261 130-400 10^3/uL Mean Platelet Volume 9.8 7.4-10.4 FL Neutrophils (%) (Auto) 81 H 42-75 % Lymphocytes (%) (Auto) 9 L 12-44 % Monocytes (%) (Auto) 6 0-12 % Eosinophils (%) (Auto) 3 0-10 % Basophils (%) (Auto) 1 0-10 % Neutrophils # (Auto) 6.8 1.8-7.8 X 10^3 Lymphocytes # (Auto) 0.8 L 1.0-4.0 X 10^3 Monocytes # (Auto) 0.5 0.0-1.0 X 10^3 Eosinophils # (Auto) 0.2 0.0-0.3 10^3/uL Basophils # (Auto) 0.0 0.0-0.1 10^3/uL Sodium Level 133 L 135-145 MMOL/L Potassium Level 4.3 3.6-5.0 MMOL/L Chloride Level 96 L 98-107 MMOL/L Carbon Dioxide Level 22 21-32 MMOL/L Anion Gap 15 H 5-14 MMOL/L Blood Urea Nitrogen 12 7-18 MG/DL Creatinine 0.90 0.60-1.30 MG/DL Estimat Glomerular Filtration Rate > 60 BUN/Creatinine Ratio 13 Glucose Level 150 H 70-105 MG/DL Calcium Level 10.5 H 8.5-10.1 MG/DL Corrected Calcium 10.1 8.5-10.1 MG/DL Magnesium Level 1.7 1.6-2.4 MG/DL Total Bilirubin 1.3 H 0.1-1.0 MG/DL Aspartate Amino Transf (AST/SGOT) 99 H 5-34 U/L Alanine Aminotransferase (ALT/SGPT) 219 H 0-55 U/L Alkaline Phosphatase 495 H 40-136 U/L Troponin I 1.821 *H 1.770 *H <0.028 NG/ML C-Reactive Protein High Sensitivity 2.37 H 0.00-0.50 MG/DL Total Protein 8.0 6.4-8.2 GM/DL Albumin 4.5 3.2-4.5 GM/DL Lipase 36 8-78 U/L Thyroid Stimulating Hormone (TSH) 0.28 L 0.35-4.94 UIU/ML Free Thyroxine 1.31 0.70-1.48 NG/DL Urine Color YELLOW Urine Clarity CLEAR Urine pH 5.5 5-9 Urine Specific [place] <=1.005 1.016-1.022 Urine Protein NEGATIVE NEGATIVE Urine Glucose (UA) NEGATIVE NEGATIVE Urine Ketones 1+ H NEGATIVE Urine Nitrite NEGATIVE NEGATIVE Urine Bilirubin NEGATIVE NEGATIVE Urine Urobilinogen 0.2 < = 1.0 MG/DL Urine Leukocyte Esterase NEGATIVE NEGATIVE Urine RBC (Auto) NEGATIVE NEGATIVE Urine RBC NONE /HPF Urine WBC 0-2 /HPF Urine Squamous Epithelial Cells 0-2 /HPF Urine Crystals NONE /LPF Urine Bacteria TRACE /HPF Urine Casts NONE /LPF Urine Mucus SMALL H /LPF Urine Culture Indicated NO My Orders Orders - JOE VILLASENOR MD Cbc With Automated Diff (07/24/19 18:34) Comprehensive Metabolic Panel (07/24/19 18:34) Magnesium (07/24/19 18:34) Ua Culture If Indicated (07/24/19 18:34) Ed Iv/Invasive Line Start (07/24/19 18:34) Ns Iv 1000 Ml (Sodium Chloride 0.9%) (07/24/19 18:34) Ondansetron Injection (Zofran Injectio (07/24/19 18:45) Famotidine Injection (Pepcid Injection) (07/24/19 18:45) Lipase (07/24/19 18:35) Troponin I (07/24/19 18:35) Ekg Tracing (07/24/19 18:35) Monitor-Rhythm Ecg Trace Only (07/24/19 18:35) Thyroid Stimulating Hormone (07/24/19 18:47) Free T4 (Free Thyroxine) (07/24/19 18:47) Hs C Reactive Protein (07/24/19 18:47) Fentanyl Injection (Sublimaze Injection (07/24/19 19:00) Abdomen, Flat & Upright/Decub (07/24/19 19:05) Promethazine Injection (Phenergan Injec (07/24/19 19:15) Ct Abdomen/Pelvis W (07/24/19 19:46) Iohexol Injection (Omnipaque 350 Mg/Ml 1 (07/24/19 20:00) Received Contrast (Hold Metformin- Contr (07/24/19 20:00) Ns (Ivpb) (Sodium Chloride 0.9% Ivpb Bag (07/24/19 20:00) Troponin I (07/24/19 20:45) Ketorolac Injection (Toradol Injection) (07/24/19 23:00) Pantoprazole Injection (Protonix Injecti (07/24/19 23:00) Medications Given in ED Current Medications Medications Dose Ordered Sig/Shaina Route Start Time Stop Time Status Last Admin Dose Admin Iohexol 100 ml ONCE ONCE IV 07/24/19 20:00 07/24/19 20:13 DC 07/24/19 20:09 100 ML Sodium Chloride 100 ml ONCE ONCE IV 07/24/19 20:00 07/24/19 20:13 DC 07/24/19 20:09 80 ML Vital Signs/I&O 07/24/19 18:25 Temp 36.9 Pulse 100 Resp 18 B/P (MAP) 165/107 (126) O2 Delivery Room Air 07/25/19 00:00 Intake Total 1000 ml Balance 1000 ml Blood Pressure Mean: 126 Progress Progress Note #1: Time: 18:48 Progress Note Patient was seen and examined. Labs and EKG ordered. A liter of normal saline, Zofran 8 mg, and Pepcid 20 mg have been ordered. Progress Note #2: Time: 19:49 Progress Note The patient had persistent belching and nausea despite Zofran. Phenergan 12.5 mg is being given and the remainder of her fluid bolus. There were significant abnormalities noted in her lab workup including elevated troponin and elevated transaminases. KUB and upright abdominal films were unremarkable. This will be followed by CT scan. Because of the elevated troponin I have placed a call to the cardiology team at [facility] to discuss the situation further. Progress Note #3: Time: 23:04 Progress Note There were no acute abnormalities on the CT scan that require immediate attention. Repeat troponin was stable. I discussed the case with Dr. Lucero, psychological anthropologist at [facility]. He believed the troponin likely represented a normal finding post angiography and stent deployment. The repeat troponin was stable indicating low probability of an acute cardiac event. Patient remains free of chest pain. Case was discussed with Dr. Falk. Plan is to have her stay overnight with bowel rest and antiacid therapy. Transaminases will be repeated in the morning and a gallbladder ultrasound will be obtained. Initial ECG Impression Date: Jul 24, 2019 Initial ECG Impression Time: 18:51 Initial ECG Rate: 87 Initial ECG Rhythm: Normal Sinus Initial ECG Intervals: Normal Initial ECG Impression: Normal Comment Normal sinus rhythm with no ST elevation or depression. No abnormal intervals or axis deviation. Diagnostic Imaging Diagonstic Imaging: Xray Plain Films/CT/US/NM/MRI: abdomen, pelvis Comments KUB and upright x-rays viewed by me and report reviewed. See report below: NAME: HARI [facility] REC#: [id number] PT STATUS: REG ER : 1950 PHYSICIAN: JOE VILLASENOR MD ADMIT DATE: 07/24/19/ER D raft Date of Exam:07/24/19 ABDOMEN, FLAT UPRIGHT/DECUB INDICATION: Headache, nausea, and vomiting Lung bases are clear. There are postoperative changes from discectomy and fusion at L4-L5. Bowel gas pattern is normal. There are no pathologic masses or calcifications. IMPRESSION: No acute abnormalities in the abdomen Dictated on workstation # [id number] Dict: 07/24/191940 Trans: 07/24/191944 [facility] [phone] Interpreted by: CHENTE TORREZ MD Departure Communication (Admissions) Time/Spoke to Admitting Phy: 22:35 Dr. Falk Time/Spoke to Consulting Phy: 22:35 Dr. Barahona Impression Primary Impression: Nausea and vomiting Qualified Codes: R11.2 - Nausea with vomiting, unspecified Additional Impressions: Elevated transaminase level Elevated troponin Disposition: ADMITTED INPATIENT Condition: Improved Admissions Decision to Admit Reason: Admit from ER (General) Decision to Admit/Date: Jul 24, 2019 Time/Decision to Admit Time: 20:40 Departure-Patient Inst. Referrals: MELIZA FALK MD (PCP/Family) Primary Care Physician JOE VILLASENOR MD Jul 24, 2019 18:46
[2019-07-24] MEDS ORDERED: fentaNYL INJECTION 100 MCG/2 ML AMP IVP ONE (19:00)
[2019-07-24 19:01] LABS: ALBUMIN 4.5 GM/DL (3.2-4.5); CHLORIDE 96 MMOL/L (98-107); POTASSIUM 4.3 MMOL/L (3.6-5.0); SODIUM 133 MMOL/L (135-145)
[2019-07-24 19:02] LABS: CALCIUM 10.5 MG/DL (8.5-10.1)
[2019-07-24 19:03] LABS: GLUCOSE 150 MG/DL (70-105)
[2019-07-24 19:05] LABS: CARBON DIOXIDE 22 MMOL/L (21-32)
[2019-07-24 19:06] LABS: BILIRUBIN,TOTAL 1.3 MG/DL (0.1-1.0)
[2019-07-24 19:07] LABS: ALKALINE PHOSPHATASE 495 U/L (40-136); GFR ESTIMATED > 60
[2019-07-24 19:08] LABS: BUN/CREATININE RATIO 13
[2019-07-24 19:10] LABS: ALANINE AMINOTRANSFERASE 219 U/L (0-55); MAGNESIUM 1.7 MG/DL (1.6-2.4)
[2019-07-24 19:11] LABS: LIPASE 36 U/L (8-78)
[2019-07-24] MEDS ORDERED: PROMETHAZINE INJ 25 MG/ML (PHENERGAN) AMP IVP ONE (19:15)
[2019-07-24 19:29] LABS: FREE T4 (FREE THYROXINE) 1.31 NG/DL (0.70-1.48)
--- NOTE | 2019-07-24 19:45 | Diagnostic Imaging Report ---
INDICATION: Headache, nausea, and vomiting Lung bases are clear. There are postoperative changes from discectomy and fusion at L4-L5. Bowel gas pattern is normal. There are no pathologic masses or calcifications. IMPRESSION: No acute abnormalities in the abdomen Dictated by: Dictated on workstation # [id number]
[2019-07-24] MEDS ORDERED: HOLD METFORMIN - RECEIVED CONTRAST 20 ML VIAL IV SCH (20:00)
[2019-07-24] MEDS ORDERED: IOHEXOL 350 MG/ML 100 ML (OMNIPAQUE 350) VIAL IV ONE (20:00)
[2019-07-24] MEDS ORDERED: NS 100 ML (IVPB) BAG IV ONE (20:00)
--- NOTE | 2019-07-24 20:28 | Diagnostic Imaging Report ---
PROCEDURE: CT abdomen and pelvis with contrast. TECHNIQUE: Multiple contiguous axial images were obtained through the abdomen and pelvis after administration of intravenous contrast. Auto Exposure Controls were utilized during the CT exam to meet ALARA standards for radiation dose reduction. INDICATION: Nausea and abdominal pain. FINDINGS: The lung bases are clear. There is fatty infiltration of the liver. The gallbladder is present. Pancreas is normal. Spleen is not enlarged. Adrenals are normal. Kidneys appear normal. There is calcific atherosclerosis of aorta. Small bowel is not dilated. The appendix is normal. There are a few colonic diverticula but no evidence of diverticulitis. IMPRESSION: Minimal colonic diverticulosis. Calcific atherosclerosis of the aorta. Hepatic steatosis. Patient has had previous discectomy and fusion at L4-L5. Dictated by: Dictated on workstation # [id number]
[2019-07-24 21:35] LABS: BILIRUBIN,URINE NEGATIVE (NEGATIVE); CLARITY,URINE CLEAR; COLOR,URINE YELLOW; GLUCOSE, URINE (UA) NEGATIVE (NEGATIVE); KETONES,URINE 1+ (NEGATIVE); LEUKOCYTE ESTERASE ,URINE NEGATIVE (NEGATIVE); NITRITE,URINE NEGATIVE (NEGATIVE); PH,URINE 5.5 (5-9); PROTEIN,URINE NEGATIVE (NEGATIVE)
[2019-07-24 21:41] LABS: BACTERIA,URINE TRACE /HPF; SQUAMOUS EPITHELIAL CELL,UR 0-2 /HPF; WBC,URINE 0-2 /HPF
[2019-07-24] MEDS ORDERED: KETOROLAC 30 MG/ML VIAL IVP ONE (23:00)
[2019-07-24] MEDS ORDERED: PANTOPRAZOLE 40 MG (PROTONIX) VIAL IV ONE (23:00)
[2019-07-24 23:59] VITALS: BP 158/83
[2019-07-25 00:15] VITALS: BP 158/83
[2019-07-25] MEDS ORDERED: ONDANSETRON 4 MG/2 ML (SDV) Z0FRAN IV PRN (00:30)
[2019-07-25] MEDS ORDERED: fentaNYL INJECTION 100 MCG/2 ML AMP IV PRN (00:30)
[2019-07-25] MEDS ORDERED: PROMETHAZINE INJ 25 MG/ML (PHENERGAN) AMP IV PRN (00:30)
[2019-07-25] MEDS: D5 1/2 NS W/KCL 20 MEQ/L 1,000 ML IV SCH ×3 (00:51→16:58)
[2019-07-25 04:10] VITALS: BP 148/81
[2019-07-25 07:19] LABS: BASOPHILS # (AUTO) 0.1 10^3/uL (0.0-0.1); BASOPHILS % (AUTO) 1 % (0-10); EOSINOPHILS # (AUTO) 0.5 10^3/uL (0.0-0.3); EOSINOPHILS % (AUTO) 6 % (0-10); HEMATOCRIT 37 % (35-52); HEMOGLOBIN 12.2 G/DL (11.5-16.0); LYMPHOCYTES # (AUTO) 0.8 X 10^3 (1.0-4.0); LYMPHOCYTES % (AUTO) 11 % (12-44); MEAN CORPUSCULAR HEMOGLOBIN 30 PG (25-34); MEAN CORPUSCULAR HGB CONC 33 G/DL (32-36); MEAN CORPUSCULAR VOLUME 91 FL (80-99); MEAN PLATELET VOLUME 10.2 FL (7.4-10.4); MONOCYTES # (AUTO) 0.9 X 10^3 (0.0-1.0); MONOCYTES % (AUTO) 12 % (0-12); NEUTROPHILS % (AUTO) 70 % (42-75); PLATELET COUNT 238 10^3/uL (130-400); RED CELL DISTRIBUTION WIDTH 12.6 % (10.0-14.5); WHITE BLOOD COUNT 7.2 10^3/uL (4.3-11.0)
[2019-07-25 07:43] LABS: BUN/CREATININE RATIO 13; CARBON DIOXIDE 26 MMOL/L (21-32); CHLORIDE 100 MMOL/L (98-107); CREATININE SERUM 0.85 MG/DL (0.60-1.30); POTASSIUM 3.7 MMOL/L (3.6-5.0); SODIUM 133 MMOL/L (135-145)
[2019-07-25 07:44] LABS: ALANINE AMINOTRANSFERASE 151 U/L (0-55); ALBUMIN 3.8 GM/DL (3.2-4.5); ALKALINE PHOSPHATASE 376 U/L (40-136); BILIRUBIN,TOTAL 0.8 MG/DL (0.1-1.0); CALCIUM 9.4 MG/DL (8.5-10.1); GFR ESTIMATED > 60; GLUCOSE 154 MG/DL (70-105); TOTAL PROTEIN 6.8 GM/DL (6.4-8.2)
[2019-07-25 08:00] VITALS: BP 174/95
--- NOTE | 2019-07-25 08:43 | History & Physicial ---
History of Present Illness History of Present Illness Reason for visit/HPI PT IS A 68 Y/O FEMALE WHO IS WELL KNOWN TO ME FROM CLINIC. SHE PRESENTED TO THE EMERGENCY DEPARTMENT YESTERDAY COMPLAINING OF INTRACTABLE NAUSEA AFTER HAVING A PROCEDURE THE DAY PRIOR. HARI HAD A HEART CATH AT [facility] AND RECEIVED A STENT IN HER LAD DUE TO 90% OCCLUSION OF THE VESSEL. SHE REPORTS THAT SHE CAME HOME, AND DID NOT HAVE ANY TROUBLE UNTIL MONDAY WHEN SHE WAS NAUSEATED. SHE THEN REPORTS THAT THE NAUSEA PROGRESSED UNTIL SHE DECIDED TO FINALLY COME IN TO THE HOSPITAL. THIS MORNING SHE REPORTS THAT SHE DID HAVE SOME WORD FINDING DIFFICULTIES WELL DIFFICULTY READING ON MONDAY BUT DID NOT REPORT THAT IN THE ER. SHE ALSO DID NOT REPORT BEING DIZZY TO THE ER PHYSICIAN, BUT SHE HAD ALSO EXPERIENCED SOME DIZZINESS PRIOR TO PRESENTING TO THE HOSPITAL. Date of Admission Jul 24, 2019 at 22:54 Date Seen by a Provider: Jul 25, 2019 Time Seen by a Provider: 08:40 I consulted on this patient on 07/25/19 08:43 Attending Physician Meliza Falk MD Admitting Physician Meliza Falk MD Consult DR. LOPEZ Allergies and Home Medications Allergies Coded Allergies: Sulfa (Sulfonamide Antibiotics) (Verified Allergy, Intermediate, HIVES, 03/24/15) amlodipine (Verified Allergy, Mild, 03/18/18) swelling to lower extremities Home Medications Acetaminophen 325 Mg Capsule, 325-650 MG PO Q6H PRN for PAIN-MILD (1-4), (Reported) Aspirin 81 Mg Tab.chew, 81 MG PO DAILY, (Reported) Celecoxib 200 Mg Capsule, 200 MG PO DAILY, (Reported) Cholecalciferol (Vitamin D3) 50 Mcg Capsule, 50 MCG PO DAILY, (Reported) Citalopram Hydrobromide 20 Mg Tablet, 20 MG PO DAILY, (Reported) Clopidogrel Bisulfate 75 Mg Tablet, 75 MG PO DAILY, (Reported) Evolocumab 140 Mg/1 Ml Pen.injctr, 140 MG INJ EVERY 2 WEEKS, (Reported) Gabapentin 300 Mg Capsule, 300-600 MG PO HS PRN for PAIN-BREAKTHROUGH, (Reported) Hydralazine HCl 50 Mg Tablet, 50 MG PO BID, (Reported) Hydrocodone/Acetaminophen 1 Each Tablet, 1-2 EA PO HS PRN for PAIN-MODERATE (5- 7), (Reported) Levothyroxine Sodium 75 Mcg Tablet, 75 MCG PO DAILY, (Reported) Olmesartan Medoxomil 40 Mg Tablet, 40 MG PO DAILY, (Reported) Pantoprazole Sodium 40 Mg Tablet.dr, 40 MG PO DAILY, (Reported) Patient Home Medication List Home Medication List Reviewed: Yes Past Yrwbneh-[id number]-Nvfuws Hx Patient Social History Marrital Status: Living Status: LIVES WITH SPOUSE Employed/Student: retired Alcohol Use: Denies Use Recreational Drug Use: No Smoking Status: Never a Smoker 2nd Hand Smoke Exposure: No Physical Abuse Screen: No Sexual Abuse: No Recent Foreign Travel: No Contact w/other who traveled: No Recent Hopitalizations: Yes (TOTAL KNEE REPLACEMENT RIGHT KNEE 18 DAYS AGO, HEART STENT PLACED 07/23/19) Recent Infectious Disease Expo: No Immunizations Up To Date Pediatric: Yes Seasonal Allergies Seasonal Allergies: No Surgeries Yes (HEART STENT) Hysterectomy, Orthopedic, Tonsillectomy Respiratory No Cardiovascular Yes Coronary Artery Disease, High Cholesterol, Hypertension Neurological No Reproductive System Hx Reproductive Disorders: No Sexually Transmitted Disease: No HIV/AIDS: No 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 Genitourinary No Gastrointestinal Gastroesophageal Reflux Musculoskeletal Yes (KNEE REPLACEMENT, FOOT SURGERIES, ROTATOR CUFF SURGERY) Arthritis, Rheumatoid Arthritis Endocrine History of Endocrine Disorders: Yes Endocrine Disorders: Hypothyroidsim HEENT History of HEENT Disorders: No Cancer No Psychosocial History of Psychiatric Problem: No Behavioral Health Disorders: Depression Integumentary History of Skin or Integumenta: No Blood Transfusions History of Blood Disorders: No Reviewed Nursing Assessment Reviewed/Agree w Nursing PMH: Yes Family Medical History Significant Family History: Heart Disease, Hypertension, Stroke Family Hx: Chest pain 19 FATHER Congestive heart failure 19 FATHER Family history: Alzheimer's disease 19 MOTHER Family history: Cardiovascular disease 19 FATHER Family history: Hypertension 19 FATHER Family history: Thyroid disorder G8 SISTER Heart disease 19 FATHER Hypercholesterolemia 19 FATHER 19 MOTHER G8 BROTHER Myocardial infarction 19 FATHER Stroke 19 FATHER No Family History of: Abdominal aortic aneurysm Eleazar's disease Alcoholism Aphasia Cancer Cancer of colon Cataract Cystic fibrosis Dementia Dysphagia Family history: Diabetes mellitus Family history: Gastrointestinal disease History of - anemia History of drug abuse Human immunodeficiency virus (HIV) seropositivity Infertile Parkinson's disease Prostate cancer Psychotic disorder Seizure disorder Tuberculosis Review of Systems Constitutional: No chills, No fever, No malaise; weakness EENTM: No vision loss, No throat pain Respiratory: No cough, No dyspnea on exertion, No short of breath Cardiovascular: No chest pain; Hx of Intervention; No palpitations Gastrointestinal: abdominal pain, nausea; No vomiting; other (PERSISTENT BELCHING) Musculoskeletal: back pain, joint pain, joint swelling, muscle weakness; No neck pain Skin: other (BRUISING POST-PROCEDURE RIGHT GROIN) Psychiatric/Neurological: Denies Anxiety, Denies Depressed; Weakness (RIGHT ARM AT SHOULDER PRE-EXISTING), Other (DIZZINESS, WORD-FINDING ISSUES Monday) All Other Systems Reviewed Negative Unless Noted: Yes Physical Exam Vital Signs Vital Signs - First Documented 07/24/19 07/24/19 18:25 23:41 Temp 36.9 Pulse 100 Resp 18 B/P (MAP) 165/107 (126) Pulse Ox 97 O2 Delivery Room Air Capillary Refill : Less Than 3 Seconds Height, Weight, BMI Height: 5'4.00" Weight: 174lbs. 6.0oz. [id number]; 30.63 BMI Method:Stated General Appearance: No Apparent Distress, WD/WN Eyes: Bilateral Eye Normal Inspection, Bilateral Eye PERRL, Bilateral Eye EOMI HEENT: PERRL/EOMI, Pharynx Normal Neck: Full Range of Motion, Normal Inspection, Non Tender, Supple Respiratory: Chest Non Tender, Lungs Clear, Normal Breath Sounds, No Accessory Muscle Use, No Respiratory Distress Cardiovascular: Regular Rate, Rhythm, Other (FAINT CAROTID BRUIT) Gastrointestinal: Normal Bowel Sounds, No Organomegaly, No Pulsatile Mass, Non Tender, Soft Rectal: Deferred Back: No Vertebral Tenderness Extremity: Normal Capillary Refill, Normal Inspection, Normal Range of Motion (EXCEPT WEAKNESS AT RIGHT UPPER ARM SHOULDER, REST OF STRENGTH 5/5 UE AND LE), No Pedal Edema Neurologic/Psychiatric: Alert, Oriented x3, No Motor/Sensory Deficits, Normal 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 LOPEZ - RESUMED HOME REGIMEN. STROKE - DUE TO EMBOLIZATION FROM STENTING PROCEDURE - SEE MRI REPORT BELOW: IMPRESSION: 1. Small foci of acute/subacute ischemia involving the right frontal lobe and mid left cerebellar hemisphere. Additional focus is also seen in the mid aspect of the right cerebellar hemisphere, which may represent artifact versus acute/subacute ischemia. No evidence of hemorrhagic conversion or mass effect is seen associated with these areas. The major intracranial flow voids are intact. - DISCUSSED WITH NEUROLOGY DEPARTMENT - THEY DID NOT MAKE A RECOMMENDATION EXCEPT FOR CTA - IF NO MAJOR OCCUSIVE DISEASE, THEN NO NEED TO CHANGE TREATMENT OTHER THAN CONTINUATION OF PLAVIX AND ASA. - WILL REFER PATIENT TO A NEUROLOGIST AT [facility] PER HER REQUEST. CORONARY ARTERY DISEASE WITH NEWLY PLACED STENT - CONTINUE WITH PLAVIX AND ASPIRIN CHRONIC RHEUMATOID ARTHRITIS WITH CHRONIC IMMUNOSUPPRESSIVE MEDICATION USE - WILL RESUME HOME REGIMEN ONCE SHE IS DISCHARGED - WILL RESTART HYDROCODONE AND GABAPENTIN FOR PRN USE. GERD - RESTART PPI AT HOME DEPRESSION - HOLD HOME MEDICATION FOR TONIGHT - CAN RESUME TOMORROW. HYPOTHYROIDISM - RESUME HOME REGIMEN Admission Diagnosis INTRACTABLE NAUSEA HYPERTENSION STROKE - DUE TO EMBOLIZATION FROM STENTING PROCEDURE CORONARY ARTERY DISEASE WITH NEWLY PLACED STENT CHRONIC RHEUMATOID ARTHRITIS CHRONIC IMMUNOSUPPRESSIVE MEDICATION USE RECENT ANTIPLATELET TREATMENT INITIATION GERD DEPRESSION HYPOTHYROIDISM Admission Status: Inpatient Order (span 2 midnights) Reason for Inpatient Admission: INPATIENT ADMISSION FOR INTRACTABLE NAUSEA, SUSPECT STROKE WILL NEED AT LEAST 24- 48 HOURS FOR TREATMENT Clinical Quality Measures DVT/VTE Risk/Contraindication: Risk Factor Score Per Nursin RFS Level Per Nursing on Admit: 2=Moderate MELIZA FALK MD Jul 25, 2019 08:43
[2019-07-25] MEDS ORDERED: VALSARTAN 160 MG (DIOVAN) TABLET PO SCH (09:00)
--- NOTE | 2019-07-25 10:53 | NUR ---
"RD ASSESSMENT PMHx: hypercholesterolemia; HTN; GERD; RA; hypothyroidism PT INTERACTION: Pt was awake and pleasant during nutrition assessment. Pt states current appetite is poor and has been this way for the last 2 days. Note no meals have been recorded, per chart review. Pt states trying to follow a low-fat diet at home, and has no issues with chewing/swallowing food. Pt states some recent issues with nausea and vomiting. Pt states no recent issues with constipation or diarrhea, and that her last BM was 6/4. Note pt not currently on bowel regimen per chart review. Pt states no recent wt changes. Note recent 2# wt loss x1mon, per chart review. ABNORMAL NUTRITION-RELATED LAB VALUES LOW: Na 133 HIGH: glu 154; AST 54; ALT 151; alkphos 376 Est. kcal needs: 6954-7963 kcal | 15-20 kcal/kg Est. Pro needs: 64-80 g Pro | 0.8-1.0 g Pro/kg PES STATEMENT: Inadequate oral intake (NI-2.1) related to loss of appetite | nausea | vomiting as evidenced by pt interview INTERVENTION: Continue with current diet order of Clear Liquid diet. Pt may benefit from nutrition supplementation if PO intake remains low. Will continue to follow and reassess as pt needs, intake, and status change. MONITOR/EVALUATE: PO Intake; Plan of Care; Hydration Status; Weight Status; Lab Values Franca Silva, , RD, LD"
--- NOTE | 2019-07-25 11:03 | Diagnostic Imaging Report ---
PROCEDURE: US Gallbladder. TECHNIQUE: Multiple real-time grayscale images were obtained over the right upper quadrant in various projections. INDICATION: Transaminitis. The hepatic echotexture appeared unremarkable. No focal liver lesion. There is no abnormal distention of intra or extrahepatic bile ducts. Much of the pancreas is obscured by gas; its visualized portions unremarkable. The patient's gallbladder appeared normal. The right kidney is unobstructed and appeared normal. The visualized aorta and IVC patent and nonaneurysmal. IMPRESSION: No pathological finding revealed at right upper quadrant ultrasound Dictated by: Dictated on workstation # [id number]
[2019-07-25] MEDS ORDERED: LORazepam INJ 2 MG/ML (ATIVAN) VIAL ONE (11:20)
[2019-07-25 12:00] VITALS: BP 157/78
[2019-07-25] MEDS: FAMOTIDINE 20MG/2ML IV (PEPCID) IVP SCH ×2 (12:27→21:28)
[2019-07-25] MEDS: ASPIRIN 81 MG CHEW (CHILDREN'S ASA) PO SCH (12:27)
[2019-07-25] MEDS: CLOPIDOGREL 75 MG (PLAVIX) TABLET PO SCH (12:27)
[2019-07-25] MEDS: hydrALAZINE (APRESOLINE) 25 MG TAB PO SCH ×2 (12:28→21:29)
[2019-07-25] MEDS: GABAPENTIN 300 MG (NEURONTIN) CAP PO SCH ×3 (12:28→21:29)
[2019-07-25] MEDS: VALSARTAN 80 MG (DIOVAN) TAB PO SCH (12:37)
--- NOTE | 2019-07-25 12:42 | Consultation-Cardiology ---
HPI-Cardiology Cardiology Consultation Date of Consultation 07/25/19 Date of Admission Time Seen by Provider: 09:00 Indication: coronary artery disease HPI 68-year-old lady with history of coronary artery disease underwent cardiac catheterization on July 23, 2019 at with stenting of the LAD, had moderate disease otherwise. Did well postoperatively and she was discharged home the same day. On the next morning about 2 hours after waking up and taking her morning medication she started to have dizziness with nausea and vomiting. Persisted until she came to the emergency room, workup was negative except for elevated troponin level and liver enzymes. On my evaluation she was still having hiccups and dry heaves. Denied any chest pain. Denied any palpitation, denied any syncope. Of note prior to the stenting she was having generalized fatigue and loss of energy and chest pain and shortness of breath on exertion that has resolved after her procedure. Home Medications & Allergies Allergies: Coded Allergies: Sulfa (Sulfonamide Antibiotics) (Verified Allergy, Intermediate, HIVES, 03/24/15) amlodipine (Verified Allergy, Mild, 03/18/18) swelling to lower extremities Home Medication List Reviewed: Yes [id number] Hx Patient Social History Marital Status: Employed/Student: employed, retired Alcohol Use: Denies Use Recreational Drug Use: No Smoking Status: Never a Smoker 2nd Hand Smoke Exposure: No Recent Foreign Travel: No Recent Infectious Disease Expo: No Recent Hopitalizations: Yes (TOTAL KNEE REPLACEMENT RIGHT KNEE 18 DAYS AGO, HEART STENT PLACED 07/23/19) Past Medical History Discussed below Family Medical History Family History: Chest pain 19 FATHER Congestive heart failure 19 FATHER Family history: Alzheimer's disease 19 MOTHER Family history: Cardiovascular disease 19 FATHER Family history: Hypertension 19 FATHER Family history: Thyroid disorder G8 SISTER Heart disease 19 FATHER Hypercholesterolemia 19 FATHER 19 MOTHER G8 BROTHER Myocardial infarction 19 FATHER Stroke 19 FATHER No Family History of: Abdominal aortic aneurysm [place]'s disease Alcoholism Aphasia Cancer Cancer of colon Cataract Cystic fibrosis Dementia Dysphagia Family history: Diabetes mellitus Family history: Gastrointestinal disease History of - anemia History of drug abuse Human immunodeficiency virus (HIV) seropositivity Infertile Parkinson's disease Prostate cancer Psychotic disorder Seizure disorder Tuberculosis Review of Systems-General Review of Systems Constitutional: see HPI, dizziness EENTM: see HPI, no symptoms reported Respiratory: no symptoms reported, see HPI Cardiovascular: see HPI; No chest pain, No edema, No Hx of Intervention, No palpitations, No syncope, No vascular heart diseas, No other Gastrointestinal: see HPI, loss of appetite, nausea, vomiting Genitourinary: no symptoms reported, see HPI Musculoskeletal: no symptoms reported, see HPI Skin: no symptoms reported, see HPI Psychiatric/Neurological: No Symptoms Reported, See HPI Reviewed Test Results Reviewed Test Results Lab Laboratory Tests Test 07/24/19 18:43 07/24/19 21:11 07/24/19 21:30 07/25/19 06:30 Range/Units White Blood Count 8.4 7.2 4.3-11.0 10^3/uL Red Blood Count 4.60 4.10 L 4.35-5.85 10^6/uL Hemoglobin 13.6 12.2 11.5-16.0 G/DL Hematocrit 41 37 35-52 % Mean Corpuscular Volume 90 91 80-99 FL Mean Corpuscular Hemoglobin 30 30 25-34 PG Mean Corpuscular Hemoglobin Concent 33 33 32-36 G/DL Red Cell Distribution Width 12.6 12.6 10.0-14.5 % Platelet Count 261 238 130-400 10^3/uL Mean Platelet Volume 9.8 10.2 7.4-10.4 FL Neutrophils (%) (Auto) 81 H 70 42-75 % Lymphocytes (%) (Auto) 9 L 11 L 12-44 % Monocytes (%) (Auto) 6 12 0-12 % Eosinophils (%) (Auto) 3 6 0-10 % Basophils (%) (Auto) 1 1 0-10 % Neutrophils # (Auto) 6.8 5.0 1.8-7.8 X 10^3 Lymphocytes # (Auto) 0.8 L 0.8 L 1.0-4.0 X 10^3 Monocytes # (Auto) 0.5 0.9 0.0-1.0 X 10^3 Eosinophils # (Auto) 0.2 0.5 H 0.0-0.3 10^3/uL Basophils # (Auto) 0.0 0.1 0.0-0.1 10^3/uL Sodium Level 133 L 133 L 135-145 MMOL/L Potassium Level 4.3 3.7 3.6-5.0 MMOL/L Chloride Level 96 L 100 98-107 MMOL/L Carbon Dioxide Level 22 26 21-32 MMOL/L Anion Gap 15 H 7 5-14 MMOL/L Blood Urea Nitrogen 12 11 7-18 MG/DL Creatinine 0.90 0.85 0.60-1.30 MG/DL Estimat Glomerular Filtration Rate > 60 > 60 BUN/Creatinine Ratio 13 13 Glucose Level 150 H 154 H 70-105 MG/DL Calcium Level 10.5 H 9.4 8.5-10.1 MG/DL Corrected Calcium 10.1 9.6 8.5-10.1 MG/DL Magnesium Level 1.7 1.6-2.4 MG/DL Total Bilirubin 1.3 H 0.8 0.1-1.0 MG/DL Aspartate Amino Transf (AST/SGOT) 99 H 54 H 5-34 U/L Alanine Aminotransferase (ALT/SGPT) 219 H 151 H 0-55 U/L Alkaline Phosphatase 495 H 376 H 40-136 U/L Troponin I 1.821 *H 1.770 *H <0.028 NG/ML C-Reactive Protein High Sensitivity 2.37 H 0.00-0.50 MG/DL Total Protein 8.0 6.8 6.4-8.2 GM/DL Albumin 4.5 3.8 3.2-4.5 GM/DL Lipase 36 8-78 U/L Thyroid Stimulating Hormone (TSH) 0.28 L 0.35-4.94 UIU/ML Free Thyroxine 1.31 0.70-1.48 NG/DL Urine Color YELLOW Urine Clarity CLEAR Urine pH 5.5 5-9 Urine Specific Nash <=1.005 1.016-1.022 Urine Protein NEGATIVE NEGATIVE Urine Glucose (UA) NEGATIVE NEGATIVE Urine Ketones 1+ H NEGATIVE Urine Nitrite NEGATIVE NEGATIVE Urine Bilirubin NEGATIVE NEGATIVE Urine Urobilinogen 0.2 < = 1.0 MG/DL Urine Leukocyte Esterase NEGATIVE NEGATIVE Urine RBC (Auto) NEGATIVE NEGATIVE Urine RBC NONE /HPF Urine WBC 0-2 /HPF Urine Squamous Epithelial Cells 0-2 /HPF Urine Crystals NONE /LPF Urine Bacteria TRACE /HPF Urine Casts NONE /LPF Urine Mucus SMALL H /LPF Urine Culture Indicated NO Physical Exam Physical Exam Vital Signs Vital Signs - First Documented 07/24/19 07/24/19 18:25 23:41 Temp 36.9 Pulse 100 Resp 18 B/P (MAP) 165/107 (126) Pulse Ox 97 O2 Delivery Room Air Capillary Refill : Less Than 3 Seconds Height, Weight, BMI Height: 5'4.00" Weight: 174lbs. 6.0oz. 79.622725gg; 30.63 BMI Method:Stated General Appearance: No Apparent Distress, WD/WN Eyes: Bilateral Eye Normal Inspection, Bilateral Eye PERRL, Bilateral Eye EOMI HEENT: PERRL/EOMI, TMs Normal, Normal ENT Inspection, Pharynx Normal, Moist Mucous Membranes Neck: Full Range of Motion, Normal Inspection, Non Tender, Supple, Carotid Bruit Respiratory: Chest Non Tender, Normal Breath Sounds, No Accessory Muscle Use, No Respiratory Distress Cardiovascular: Regular Rate, Rhythm, No Edema, No Gallop, No JVD, No Murmur, Normal Peripheral Pulses Gastrointestinal: Normal Bowel Sounds, No Organomegaly, No Pulsatile Mass, Non Tender, Soft Back: Normal Inspection, No CVA Tenderness, No Vertebral Tenderness Extremity: Normal Capillary Refill, Normal Inspection, Normal Range of Motion, Non Tender, No Calf Tenderness, No Pedal Edema Neurologic/Psychiatric: Alert, Oriented x3, No Motor/Sensory Deficits, Normal Mood/Affect Skin: Normal Color, Warm/Dry Lymphatic: No Adenopathy A/P-Cardiology Admission Diagnosis Coronary artery disease Non-ST MD Dizziness Hypertension Assessment/Plan Coronary artery disease. Elevated troponin level. Had an intervention with stenting to the LAD done on July 23, 2019, had moderate disease otherwise and multiple segments, done at . Reporting significant improvement in her chest pain and symptoms after the intervention was done. Currently asymptomatic from the cardiac standpoint. Noted to have elevated troponin that is trending down, no EKG changes. Probably non-ST elevation myocardial infarction occurred during the intervention with possible occlusion of small branches during the intervention. Continue with medical therapy at this time and continue to monitor Dizziness, patient reporting vertigo for the past 24 hours associated with severe nausea and vomiting and dry heaves. No similar episodes in the past. She was started on 2 new medication after her discharge were Plavix and Protonix. Noted to have mild elevation in liver enzymes. Recommended carotid ultrasound and MRI of the brain, start on meclizine and evaluate tolerance and response. Hypertension, poor control. Restart home medication monitor blood pressure Questionable hyperlipidemia, hold any statin this time and monitor Elevated liver enzymes. Unknown etiology. Managed by primary care physician Clinical Quality Measures DVT/VTE Risk/Contraindication: Risk Factor Score Per Nursin RFS Level Per Nursing on Admit: 2=Moderate JAYY LOPEZ MD Jul 25, 2019 12:42 pm
--- NOTE | 2019-07-25 13:12 | Diagnostic Imaging Report ---
PROCEDURE: US carotid duplex, bilateral. TECHNIQUE: Multiple real-time grayscale images were obtained over the carotid arteries in various projections, bilaterally. Additional spectral analysis and color Doppler duplex images were also obtained. NASCET criteria were utilized. INDICATION: Bruit. FINDINGS: There is moderate atherosclerotic plaquing present in the carotid bulbs more prominent on the left. Color Doppler imaging shows antegrade flow throughout the carotid and vertebral arteries. Waveforms and peak velocities appear normal. Carotid ratios are normal. Vertebral arteries are symmetrical and antegrade. IMPRESSION: Atherosclerotic plaquing most prominent in the left carotid bulb. There are no hemodynamic changes with stenosis estimated 30-50%. Parameters based on the consensus panel [place]-Scale and Doppler ultrasound criteria published December 2002, Radiology, Volume 229. DOPPLER (peak systolic velocity M/S Right Left CCA .86 .96 ICA Proximal .93 1.25 ICA Mid .74 1.42 ICA Distal .98 .93 RATIO 1.14 1.49 ECA 1.09 .91 VERT .42 .39 Dictated by: Dictated on workstation # [id number]
--- NOTE | 2019-07-25 13:31 | Diagnostic Imaging Report ---
PROCEDURE: MR imaging of the brain without contrast. TECHNIQUE: Multiplanar, multisequence MR imaging of the brain was performed without contrast. INDICATION: Nausea and vomiting after heart catheterization. Dizziness. Evaluate for ischemia. COMPARISON: MRI brain on 08/12/2013. FINDINGS: Small foci of acute/subacute ischemia are visualized involving the right frontal lobe and mid left cerebellar hemisphere. A questionable focus of acute/subacute ischemia is also seen in the mid aspect of the right cerebellar hemisphere. No evidence of mass effect or hemorrhage. The ventricles, cortical sulci, and basilar cisterns are symmetric and unremarkable. There is flattening of the pituitary. The major intracranial flow voids are intact. The paranasal sinuses and mastoid air cells demonstrate normal signal characteristics. The globes and orbits are symmetric and unremarkable. The scalp and calvarium have a normal appearance. IMPRESSION: 1. Small foci of acute/subacute ischemia involving the right frontal lobe and mid left cerebellar hemisphere. Additional focus is also seen in the mid aspect of the right cerebellar hemisphere, which may represent artifact versus acute/subacute ischemia. No evidence of hemorrhagic conversion or mass effect is seen associated with these areas. The major intracranial flow voids are intact. Report given and faxed to nurse (Shila) at 1:29 p.m. 07/25/2019/cb Dictated by: Dictated on workstation # [id number]
[2019-07-25] MEDS ORDERED: EVOL140P3 INJ (13:38)
[2019-07-25] MEDS ORDERED: CELE-63 PO (13:38)
[2019-07-25] MEDS ORDERED: ACET325C7 PO (13:38)
[2019-07-25] MEDS ORDERED: CHOL20002 PO (13:38)
[2019-07-25] MEDS ORDERED: GABA300C PO (13:38)
[2019-07-25] MEDS ORDERED: CLOP75TA28 PO (13:38)
[2019-07-25] MEDS ORDERED: HYDR-4342 PO (13:38)
[2019-07-25] MEDS ORDERED: LEVO75TA6 PO (13:38)
[2019-07-25] MEDS ORDERED: PANT40TA3 PO (13:38)
[2019-07-25] MEDS ORDERED: CITA20TA9 PO (13:38)
[2019-07-25] MEDS ORDERED: ASPI-999 PO (13:38)
[2019-07-25] MEDS ORDERED: HYDR-3924 PO (13:38)
[2019-07-25] MEDS ORDERED: OLME40TA18 PO (13:38)
[2019-07-25] MEDS ORDERED: MECLIZINE 25 MG (ANTIVERT) TAB PO NR (13:45)
[2019-07-25] MEDS ORDERED: MECLIZINE 25 MG (ANTIVERT) TAB PO PRN (13:45)
[2019-07-25] MEDS ORDERED: CATHETER FLUSH 10 ML SYR IV PRN (14:00)
[2019-07-25] MEDS ORDERED: IOHEXOL 350 MG/ML 100 ML (OMNIPAQUE 350) VIAL IV ONE (14:00)
[2019-07-25] MEDS ORDERED: HOLD METFORMIN - RECEIVED CONTRAST 20 ML VIAL IV SCH (14:00)
[2019-07-25] MEDS ORDERED: NS 100 ML (IVPB) BAG IV ONE (14:00)
--- NOTE | 2019-07-25 14:26 | NUR ---
SPOKE WITH PT (SHE HAD A MED LIST FROM [facility] ON HER CHART) AND WENT THRU THE EXT MED HISTORY TO COMPLETE THE MED REC METOPROLOL SUCC 25MG IS ON THE EXT MED HISTORY HOWEVER THE PT SAYS IT WAS DISCONTINUED AND IS NO LONGER TAKING PT SAYS SHE ONLY USES GABAPENTIN AND NORCO AT BEDTIME ON THE [facility] MED LIST IT HAS VOLTAREN GEL AND MULTIVITAMIN BUT SHE SAID SHE IS NO LONGER TAKING/USING EITHER OF THEM OTC MEDS: TYLENOL ASPIRIN 81 VIT D
--- NOTE | 2019-07-25 14:52 | Diagnostic Imaging Report ---
PROCEDURE: CT angiography of the head and CT angiography of the neck with and without contrast. TECHNIQUE: Contiguous noncontrast images were obtained from the skull base through the vertex. After intravenous contrast administration, helical CT angiography of the neck was performed. Source data was reformatted into 3D MIP projections. Delayed post contrast acquisition was also obtained. Auto Exposure Controls were utilized during the CT exam to meet ALARA standards for radiation dose reduction. INDICATION: Dizziness. COMPARISON: MRI brain performed earlier same day. FINDINGS: Noncontrast head: No hyperdense hemorrhage or space-occupying mass. No hydrocephalus or midline shift. Sultana-white matter differentiation is well-preserved. There are no CT features to indicate ischemia at the sites of known infarct seen on recent MRI. No concerning calvarial abnormality. Mastoid air cells are clear. CTA neck: Aortic arch is normal in appearance. Conventional three-vessel branching pattern of the aortic arch. The bilateral common carotid arteries are widely patent. Atherosclerotic plaquing results in approximately 30-40% luminal narrowing at the origin of the left ICA. No significant stenosis of the right ICA per NASCET criteria. Cervical segment of the bilateral internal carotid arteries are normal. The origins of the vertebral arteries are normal. Vertebral arteries are patent throughout the neck and codominant. No significant stenosis is noted. Both vertebral arteries contribute to formation of the basilar artery. No cervical lymphadenopathy. Thyroid is normal. Lung apices are clear. No retropharyngeal fluid collection. Multilevel degenerative changes within the cervical spine. CTA head: Bilateral distal internal carotid arteries are widely patent without stenosis. The bilateral M1 and M2 divisions of the middle cerebral arteries are patent. The M3 divisions are grossly symmetric. Anterior cerebral arteries are normal. Posterior cerebral arteries are widely patent. There is no saccular aneurysm. Basilar artery is normal. No pathologic enhancement on delayed phase images. IMPRESSION: 1. No high-grade stenosis within the neck arteries. Less than 40% stenosis at the origin of left ICA due to atherosclerotic plaquing. 2. No medium or large vessel intracranial occlusion. 3. No saccular aneurysm within the [place]. Dictated by: Dictated on workstation # [id number]
--- NOTE | 2019-07-25 15:38 | NUR ---
Pastoral care visit.
[2019-07-25 16:38] VITALS: BP 157/81
[2019-07-25 20:11] VITALS: BP 145/77
[2019-07-25] MEDS ORDERED: HYDROcodone/APAP 7.5 MG/325 MG (LORTAB, LORCET PLUS) TABLET PO PRN (20:45)
[2019-07-25] MEDS ORDERED: GABAPENTIN 300 MG (NEURONTIN) CAP PO PRN (20:45)
[2019-07-26 00:32] VITALS: BP 155/83
[2019-07-26 03:48] VITALS: BP 153/79
[2019-07-26] MEDS: D5 1/2 NS W/KCL 20 MEQ/L 1,000 ML IV SCH (05:16)
[2019-07-26 06:16] LABS: HEMOGLOBIN 10.9 G/DL (11.5-16.0); MEAN PLATELET VOLUME 10.3 FL (7.4-10.4); RED CELL DISTRIBUTION WIDTH 12.5 % (10.0-14.5); WHITE BLOOD COUNT 6.2 10^3/uL (4.3-11.0)
[2019-07-26 06:54] LABS: ALANINE AMINOTRANSFERASE 94 U/L (0-55); ALBUMIN 3.4 GM/DL (3.2-4.5); ALKALINE PHOSPHATASE 294 U/L (40-136); BILIRUBIN,TOTAL 0.6 MG/DL (0.1-1.0); BUN/CREATININE RATIO 8; CALCIUM 8.9 MG/DL (8.5-10.1); CARBON DIOXIDE 24 MMOL/L (21-32); CHLORIDE 101 MMOL/L (98-107); CREATININE SERUM 0.77 MG/DL (0.60-1.30); GFR ESTIMATED > 60; GLUCOSE 145 MG/DL (70-105); POTASSIUM 3.9 MMOL/L (3.6-5.0); SODIUM 132 MMOL/L (135-145); TOTAL PROTEIN 5.9 GM/DL (6.4-8.2)
[2019-07-26 08:00] VITALS: BP 163/82
[2019-07-26] MEDS: FAMOTIDINE 20MG/2ML IV (PEPCID) IVP SCH ×2 (08:00→09:12)
[2019-07-26] MEDS ORDERED: LEVOTHYROXINE 75 MCG (LEVOTHROID) TABLET PO SCH (09:00)
[2019-07-26] MEDS: hydrALAZINE (APRESOLINE) 25 MG TAB PO SCH (09:11)
[2019-07-26] MEDS: VALSARTAN 80 MG (DIOVAN) TAB PO SCH (09:12)
[2019-07-26] MEDS: GABAPENTIN 300 MG (NEURONTIN) CAP PO SCH (09:12)
[2019-07-26] MEDS: CLOPIDOGREL 75 MG (PLAVIX) TABLET PO SCH (09:12)
[2019-07-26] MEDS: ASPIRIN 81 MG CHEW (CHILDREN'S ASA) PO SCH (09:12)
--- NOTE | 2019-07-26 09:59 | Discharge Summary ---
Diagnosis/Chief Complaint Date of Admission Jul 25, 2019 at 08:43 Date of Discharge Discharge Date: Jul 26, 2019 Discharge Time: 10:00 Admission Diagnosis Admission Diagnosis INTRACTABLE NAUSEA HYPERTENSION STROKE - DUE TO EMBOLIZATION FROM STENTING PROCEDURE CORONARY ARTERY DISEASE WITH NEWLY PLACED STENT CHRONIC RHEUMATOID ARTHRITIS CHRONIC IMMUNOSUPPRESSIVE MEDICATION USE RECENT ANTIPLATELET TREATMENT INITIATION GERD DEPRESSION HYPOTHYROIDISM Discharge Diagnosis INTRACTABLE NAUSEA HYPERTENSION STROKE - DUE TO EMBOLIZATION FROM STENTING PROCEDURE CORONARY ARTERY DISEASE WITH NEWLY PLACED STENT CHRONIC RHEUMATOID ARTHRITIS CHRONIC IMMUNOSUPPRESSIVE MEDICATION USE RECENT ANTIPLATELET TREATMENT INITIATION GERD DEPRESSION HYPOTHYROIDISM Reason Hospital Visit PT IS A 68 Y/O FEMALE WHO IS WELL KNOWN TO ME FROM CLINIC. SHE PRESENTED TO THE EMERGENCY DEPARTMENT YESTERDAY COMPLAINING OF INTRACTABLE NAUSEA AFTER HAVING A PROCEDURE THE DAY PRIOR. HARI HAD A HEART CATH AT [facility] AND RECEIVED A STENT IN HER LAD DUE TO 90% OCCLUSION OF THE VESSEL. SHE REPORTS THAT SHE CAME HOME, AND DID NOT HAVE ANY TROUBLE UNTIL MONDAY WHEN SHE WAS NAUSEATED. SHE THEN REPORTS THAT THE NAUSEA PROGRESSED UNTIL SHE DECIDED TO FINALLY COME IN TO THE HOSPITAL. THIS MORNING SHE REPORTS THAT SHE DID HAVE SOME WORD FINDING DIFFICULTIES WELL DIFFICULTY READING ON MONDAY BUT DID NOT REPORT THAT IN THE ER. SHE ALSO DID NOT REPORT BEING DIZZY TO THE ER PHYSICIAN, BUT SHE HAD ALSO EXPERIE NCED SOME DIZZINESS PRIOR TO PRESENTING TO THE HOSPITAL. Discharge Summary Consultations CARDIOLOGY Discharge Physical Examination Allergies: Coded Allergies: Sulfa (Sulfonamide Antibiotics) (Verified Allergy, Intermediate, HIVES, 03/24/15) amlodipine (Verified Allergy, Mild, 03/18/18) swelling to lower extremities Vitals & I&Os General Appearance: Alert, Oriented X3, Cooperative, No Acute Distress HEENT: Atraumatic, PERRLA, Mucous Memb Moist/[place] Respiratory: Clear to Auscultation, Normal Air Movement Cardiovascular: Regular Rate Abdominal: Normal Bowel Sounds, Soft, No Tenderness Extremities: No Clubbing, No Cyanosis Skin: No Rashes, No Breakdown, No Significant Lesion Neuro: Normal Speech, Cranial Nerves 3-12 NL Psych/Mental Status: Mental Status NL, Mood NL Hospital Course Was the Problem List Reviewed?: Yes INTRACTABLE NAUSEA HYPERTENSION STROKE - DUE TO EMBOLIZATION FROM STENTING PROCEDURE CORONARY ARTERY DISEASE WITH NEWLY PLACED STENT CHRONIC RHEUMATOID ARTHRITIS CHRONIC IMMUNOSUPPRESSIVE MEDICATION USE RECENT ANTIPLATELET TREATMENT INITIATION GERD DEPRESSION HYPOTHYROIDISM INTRACTABLE NAUSEA - IMPROVED - CONTINUE WITH ZOFRAN AND PROMETHAZINE HYPERTENSION - DISCUSSED WITH PATIENT AND DR. LOPEZ - RESUMED HOME REGIMEN. STROKE - DUE TO EMBOLIZATION FROM STENTING PROCEDURE - SEE MRI REPORT BELOW: IMPRESSION: 1. Small foci of acute/subacute ischemia involving the right frontal lobe and mid left cerebellar hemisphere. Additional focus is also seen in the mid aspect of the right cerebellar hemisphere, which may represent artifact versus acute/subacute ischemia. No evidence of hemorrhagic conversion or mass effect is seen associated with these areas. The major intracranial flow voids are intact. - DISCUSSED WITH NEUROLOGY DEPARTMENT - THEY DID NOT MAKE A RECOMMENDATION EXCEPT FOR CTA - IF NO MAJOR OCCUSIVE DISEASE, THEN NO NEED TO CHANGE TREATMENT OTHER THAN CONTINUATION OF PLAVIX AND ASA. - WILL REFER PATIENT TO A NEUROLOGIST AT [facility] PER HER REQUEST UPON DISCHARGE FOR OUTPATIENT EVALUATION. CORONARY ARTERY DISEASE WITH NEWLY PLACED STENT - CONTINUED WITH PLAVIX AND ASPIRIN CHRONIC RHEUMATOID ARTHRITIS WITH CHRONIC IMMUNOSUPPRESSIVE MEDICATION USE - RESUMED HOME REGIMEN UPON DISCHARGE - RESTARTED HYDROCODONE AND GABAPENTIN FOR PRN USE. GERD - RESTARTED PPI AT HOME DEPRESSION - HELD HOME MEDICATION FOR TONIGHT - RESUMED ON DISCHARGE. HYPOTHYROIDISM - RESUMED HOME REGIMEN Pending Labs Discharge Condition at discharge IMPROVED Instructions to patient/family Please see electronic discharge instructions given to patient. Discharge Medications Reviewed and agree with Discharge Medication list on patient's Discharge Instruction sheet Clinical Quality Measures DVT/VTE Risk/Contraindication: Risk Factor Score Per Nursin RFS Level Per Nursing on Admit: 2=Moderate MELIZA LACY MD Jul 26, 2019 09:59
[2019-07-26] MEDS ORDERED: ONDA4TAB11 PO (10:01)
--- NOTE | 2019-07-26 10:04 | Discharge Inst-Simple/Standard ---
Discharge Inst-Standard Reconcile Patient Problems Problems Reviewed?: Yes Discharge Medications New, Converted or Re-Newed RX: Transmitted to Pharmacy Patient Instructions/Follow Up Plan of Care/Instructions/FU: FOLLOW UP WITH [facility] IN ONE WEEK CALL CARDIOLOGY AT [facility] FOR AN APPT FOR FOLLOW UP IN THE NEXT FEW WEEKS WE WILL HAVE HOSPITAL CALL FOR APPT WITH [facility] IN THE NEXT FEW WEEKS WELL Activity as Tolerated: Yes Discharge Diet: Avoid Fatty Foods, Other Diet (BLAND DIET X 1 WEEK THEN RESUME LOW FAT DIET) Return to The Hospital For: ANY CHEST PAIN, DIZZINESS, WORD-FINDING DIFFICULTIES, PERSISTENT NAUSEA OR OTHER CONCERNS FOR STROKE OR LIFE THREATENING ILLNESS OR INJURY Planned Outpatient Orders/Ref. Pneu Vac Indicated: Yes Medication List: Active Scripts Active Ondansetron Odt (Ondansetron) 4 Mg Tab.rapdis 4 Mg PO Q6H PRN Reported Citalopram HBr (Citalopram Hydrobromide) 20 Mg Tablet 20 Mg PO DAILY Vitamin D3 (Cholecalciferol (Vitamin D3)) 50 Mcg Capsule 50 Mcg PO DAILY Aspirin 81 Mg Tab.chew 81 Mg PO DAILY Tylenol (Acetaminophen) 325 Mg Capsule 325-650 Mg PO Q6H PRN Neurontin (Gabapentin) 300 Mg Capsule 300-600 Mg PO HS PRN Celecoxib 200 Mg Capsule 200 Mg PO DAILY Levothyroxine Sodium 75 Mcg Tablet 75 Mcg PO DAILY Repatha Sureclick (Evolocumab) 140 Mg/1 Ml Pen.injctr 140 Mg INJ EVERY 2 WEEKS Hydralazine HCl 50 Mg Tablet 50 Mg PO BID Olmesartan Medoxomil 40 Mg Tablet 40 Mg PO DAILY Hydrocodone-Acetamin 7.5-325 (Hydrocodone/Acetaminophen) 1 Each Tablet 1-2 Ea PO HS PRN Clopidogrel (Clopidogrel Bisulfate) 75 Mg Tablet 75 Mg PO DAILY Pantoprazole Sodium 40 Mg Tablet.dr 40 Mg PO DAILY Lab results: Laboratory Tests Test 07/26/19 05:45 Range/Units White Blood Count 6.2 4.3-11.0 10^3/uL Red Blood Count 3.65 L 4.35-5.85 10^6/uL Hemoglobin 10.9 L 11.5-16.0 G/DL Hematocrit 33 L 35-52 % Mean Corpuscular Volume 91 80-99 FL Mean Corpuscular Hemoglobin 30 25-34 PG Mean Corpuscular Hemoglobin Concent 33 32-36 G/DL Red Cell Distribution Width 12.5 10.0-14.5 % Platelet Count 219 130-400 10^3/uL Mean Platelet Volume 10.3 7.4-10.4 FL Sodium Level 132 L 135-145 MMOL/L Potassium Level 3.9 3.6-5.0 MMOL/L Chloride Level 101 98-107 MMOL/L Carbon Dioxide Level 24 21-32 MMOL/L Anion Gap 7 5-14 MMOL/L Blood Urea Nitrogen 6 L 7-18 MG/DL Creatinine 0.77 0.60-1.30 MG/DL Estimat Glomerular Filtration Rate > 60 BUN/Creatinine Ratio 8 Glucose Level 145 H 70-105 MG/DL Calcium Level 8.9 8.5-10.1 MG/DL Corrected Calcium 9.4 8.5-10.1 MG/DL Total Bilirubin 0.6 0.1-1.0 MG/DL Aspartate Amino Transf (AST/SGOT) 28 5-34 U/L Alanine Aminotransferase (ALT/SGPT) 94 H 0-55 U/L Alkaline Phosphatase 294 H 40-136 U/L Total Protein 5.9 L 6.4-8.2 GM/DL Albumin 3.4 3.2-4.5 GM/DL My orders: Orders - MELIZA LACY MD Lorazepam Injection (Ativan Injection) (07/25/19 11:20) Valsartan Tablet (Diovan Tablet) (07/25/19 12:45) Ct Angio Head/Neck (07/25/19 13:51) Iohexol Injection (Omnipaque 350 Mg/Ml 1 (07/25/19 14:00) Received Contrast (Hold Metformin- Contr (07/25/19 14:00) Sodium Chloride Flush (Catheter Flush Sy (07/25/19 14:00) Ns (Ivpb) (Sodium Chloride 0.9% Ivpb Bag (07/25/19 14:00) Gabapentin Capsule/Tablet (Neurontin Cap (07/25/19 20:45) Hydrocodone/Apap 7.5/325 Tab (Lortab 7. (07/25/19 20:45) Levothyroxine Tablet (Synthroid Tablet) (07/26/19 09:00) Clear Liquid (07/26/19 Breakfast) General/Regular (07/26/19 Breakfast) Attending Discharge Inpt/Inobs (07/26/19 09:59) MELIZA LACY MD Jul 26, 2019 10:04
[2019-07-26] MEDS ORDERED: FAMOTIDINE 20 MG (PEPCID) TABLET PO ONE (11:30)
[2019-07-26 12:00] VITALS: BP 163/82
--- NOTE | 2019-07-31 14:21 | Physician Query Clarification ---
PQ-Intro New Diagnosis Admission/Discharge Admission Date: Jul 25, 2019 at 08:43 Discharge Date: Jul 26, 2019 at 12:00 The medical record reflects the following clinical scenario: History/Risk Factors: S/P coronary artery stent day before, CAD, HTN Clinical Findings: Small foci of acute/subacute ischemia involving the right frontal lobe and mid left cerebellar hemisphere. Additional focus is also seen in the mid aspect of the right cerebellar hemisphere, which may represent artifact versus acute/subacute ischemia. Troponin 1.821, N/V, headache Treatment: Plavix, ASA Question: What condition best reflects the above clinical scenario? Please document a response in the Progress Noter or Discharge Summary. 1. 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 Other, with explanation of the clinical findings. 4. Clinically undetermined, no explanation for the clinical findings. PHYSICIAN RESPONSE What condition reflects above: 1 Please remember a lack of response to the above will prompt a phone page by Kirstin CHILEL/Coding staff. In responding to this query, please exercise your independent professional judgment. The purpose of this communication is to more accurately reflect the complexity of your patients condition. The fact that a question is asked does not imply that any particular answer is desired or expected. Thank you for your timely response to this clarification. Requestors name: Vini THIS PHYSICIAN QUERY FORM IS A PERMANENT PART OF THE MEDICAL RECORD VINI SANDHU Jul 31, 2019 14:21 MELIZA LACY MD Aug 14, 2019 09:12
== END 2019-07-26 12:00 | disposition home or self-care (01) | DRG 91 ==
LOC: EDUNIT# 18:15 → ER 18:17 → UNDOADMOB 22:54 → 4TH 22:54 → INTOOBSV 07-25 08:43 → OBSVTOIN 07-25 08:43 → UNDODISIN 07-26 12:00
PROVIDERS: ADMIT Family Medicine; ATTEND Family Medicine
DX: I97.820 Postprocedural cerebrovascular infarction following cardiac surgery (principal); I63.40 Cerebral infarction due to embolism of unspecified cerebral artery; I21.4 Non-ST elevation (NSTEMI) myocardial infarction; I97.790 Other intraoperative cardiac functional disturbances during cardiac surgery; Z95.5 Presence of coronary angioplasty implant and graft; I25.10 Atherosclerotic heart disease of native coronary artery without angina pectoris; E78.00 Pure hypercholesterolemia, unspecified; I10 Essential (primary) hypertension; K21.9 Gastro-esophageal reflux disease without esophagitis; M19.91 Primary osteoarthritis, unspecified site; M06.9 Rheumatoid arthritis, unspecified; E03.9 Hypothyroidism, unspecified; F32.9 Major depressive disorder, single episode, unspecified; Z90.710 Acquired absence of both cervix and uterus; Z90.89 Acquired absence of other organs
CPT/HCPCS: 36415; 70496; 70498; 70551; 74019; 74177; 76705; 80053; 81000; 83690; 83735; 84439; 84443; 84484; 85025; 85027; 86141; 93005; 93041; 93880; 96361; 96374; 96375; G0378

== ENCOUNTER → 2019-09-06 | Outpatient (CLI) | payer MEDICARE, OTHER ==
[~2019-09-06] MED LIST changes: +ACET325C7 PO; +ASPI-999 PO; +CELE-63 PO; +CHOL20002 PO; +CLOP75TA28 PO; +EVOL140P3 INJ; +GABA300C PO; +HYDR-3924 PO; +HYDR-4342 PO; +OLME40TA18 PO; +ONDA4TAB11 PO; +PANT40TA3 PO
--- NOTE | 2019-09-06 11:59 | Diagnostic Imaging Report ---
INDICATION: Fall with right anterior rib pain. TIME OF EXAM: 11:41 AM FINDINGS: Multiple views right-sided ribs were obtained. No displaced rib fractures detected. No parenchymal contusion, effusion or pneumothorax is detected. IMPRESSION: No acute abnormality is detected. Dictated by: Dictated on workstation # [id number]
== END ==
LOC: RAD 11:09
PROVIDERS: ATTEND Nurse Practitioner Family
DX: R07.81 Pleurodynia (principal); W19.XXXA Unspecified fall, initial encounter
CPT/HCPCS: 71100

== ENCOUNTER → 2020-03-10 | Outpatient (CLI) | payer MEDICARE, OTHER ==
[~2020-03-10] MED LIST changes: +HYDR-3817 PO; -HYDR-4342 PO; -PANT40TA3 PO; +PANT40TA52 PO
--- NOTE | 2020-03-10 11:18 | Diagnostic Imaging Report ---
INDICATION: 69-year-old asymptomatic postmenopausal female COMPARISON: None available. FINDINGS: AP Spine L1-L4: [BMD (g/cm2): na] [T-Score: na] [Z-Score: na] [BMD Previous: na] [BMD % Change: na] LT Hip Neck: [BMD (g/cm2): 0.726] [T-Score: -2.2] [Z-Score: -0.9] LT Hip Total: [BMD (g/cm2):0.860] [T-Score:-1.2] [Z-Score: -0.1] [BMD Previous: na] [BMD % Change: na] RT Hip Neck: [BMD (g/cm2):0.806] [T-Score:-1.7] [Z-Score:-0.3] RT Hip Total: [BMD (g/cm2):0.852] [T-score:-1.2] [Z-Score:-0.1] [BMD Previous:na] [BMD % Change:na] *Indicates significant change from prior examination based on 95% confidence level. World Health Organization criteria for BMD interpretation classify patients as Normal (T-score at or above -1.0), Osteopenic (T-score between -1.0 and -2.5) or Osteoporotic (T-score at or below -2.5). LIMITATIONS AND MODIFICATION: Lumbar spine is unable be utilized due to metallic instrumentation from posterior fusion. FRACTURE RISK (FRAX SCORE): The ten year probability of (%): Major Osteoporotic Fracture: [12.9] Hip Fracture: [2.9] IMPRESSION: 1. Osteopenia (Low bone mass). 2. Baseline examination. 3. See below National Osteoporosis Foundation guidelines on when to potentially initiate pharmacologic therapy. Based on the National Osteoporosis Foundation Guidelines, pharmacologic treatment should be initiated in any of the following, unless clinical conditions suggest otherwise: * Any patient with prior fragility fracture of the hip or vertebrae. A spine fracture indicates 5X risk for subsequent spine fracture and 2X risk for subsequent hip fracture. * Osteoporosis (T-score <-2.5). * Postmenopausal women and men age 50 and older with low bone mass/osteopenia (T-score between -1.0 and -2.5) by DXA and 10-year major osteoporotic fracture greater than 20% or a 10-year probability of hip fracture greater than 3%. These fracture risks are supplied above in the FRAX score, if applicable. * Clinician judgement and/or patient preferences may indicate treatment for people with 10-year fracture probabilities above or below these levels. Dictated by: Dictated on workstation # [id number]
--- NOTE | 2020-03-10 13:50 | Diagnostic Imaging Report ---
INDICATION: Routine screening. Comparison is made with prior mammogram from 03/04/2019 and 01/03/2018. 2-D and 3-D bilateral screening mammography was performed with CAD. Both breasts are heterogeneously dense, limiting the sensitivity of mammography. Benign calcifications again noted bilaterally. No mass or malignant appearing microcalcifications are seen. Axillae are unremarkable. IMPRESSION: BI-RADS Category 2 No mammographic features suspicious for malignancy are identified. ACR BI-RADS Category 2: Benign findings. Result letter will be mailed to the patient. Note: At least 10% of breast cancer is not imaged by mammography. Dictated by: Dictated on workstation # [id number]
== END ==
LOC: RAD 08:52
PROVIDERS: ATTEND Family Medicine
DX: Z12.31 Encounter for screening mammogram for malignant neoplasm of breast (principal); M85.851 Other specified disorders of bone density and structure, right thigh; M85.852 Other specified disorders of bone density and structure, left thigh; Z78.0 Asymptomatic menopausal state
CPT/HCPCS: 77063; 77067; 77080

== ENCOUNTER 2020-04-14 09:36 | Outpatient (RCR) | payer MEDICARE, OTHER | END 2020-06-02 | disposition home or self-care (01) | PROVIDERS: ATTEND Family Medicine | DX: M54.2 Cervicalgia (principal) ==

== ENCOUNTER 2020-08-20 09:50 | Outpatient (RCR) | payer MEDICARE, OTHER | END 2020-08-20 10:37 | disposition home or self-care (01) | PROVIDERS: ATTEND Orthopaedic Surgery | DX: M25.562 Pain in left knee (principal); I10 Essential (primary) hypertension; Z87.81 Personal history of (healed) traumatic fracture ==

== ENCOUNTER → 2020-10-19 | Outpatient (CLI) | payer MEDICARE, OTHER ==
--- NOTE | 2020-10-19 15:04 | Diagnostic Imaging Report ---
INDICATION: Knee pain status post fall. COMPARISON: None FINDINGS: Multiple radiographic views of the left knee were obtained and show irregular cortical disruption involving the lateral margins of the medial tibial plateau. There is extension of the proximal tibia, as well. Findings are concerning for fracture. Note is made of somewhat abnormal asymmetric hyperlucent appearance to the central epiphysis of the proximal tibia suspicious for underlying osteolytic process. No displaced fracture fragments are seen. There is small suprapatellar joint effusion. Joint spaces are otherwise intact. Note is also made of moderate osteoarthritic changes. Multiple surgical clips are present. No unexpected radiopaque foreign bodies are seen. IMPRESSION: 1. Findings concerning for potential pathologic fracture of the proximal tibia. Correlation with MRI is recommended. 2. Small joint effusion. 3. Mild osteoarthritic changes. Report given to VIJI Carson, at 3:02 PM 10/19/2020/kandi Dictated by: Dictated on workstation # [id number]
== END ==
LOC: RAD 14:11
PROVIDERS: ATTEND Nurse Practitioner Family
DX: M17.12 Unilateral primary osteoarthritis, left knee (principal); W19.XXXA Unspecified fall, initial encounter
CPT/HCPCS: 73562

== ENCOUNTER → 2020-10-23 | Outpatient (CLI) | payer MEDICARE, OTHER ==
--- NOTE | 2020-10-23 13:09 | Diagnostic Imaging Report ---
EXAMINATION: Magnetic resonance imaging of the left knee without intravenous contrast DATE: October 23, 2020. COMPARISON: Left knee radiographs October 19, 2020. INDICATION: 70-year-old female, left knee pain. Fall 2 weeks ago. TECHNIQUE: Multiplanar, multisequence non contrast enhanced MR imaging was accomplished. FINDINGS: MENISCI: Oblique tear involving the body and posterior horn of the medial meniscus. There is medial meniscal extrusion and extension of medial meniscal tissue into the inferior gutter. The lateral meniscus is intact. LIGAMENTS AND TENDONS: The anterior and posterior cruciate ligaments are intact. The medial collateral ligament is intact. The iliotibial band, mid third lateral capsular ligament, fibular collateral ligament, biceps femoris tendon and conjoined tendon are intact. The quadriceps tendon and patella ligament are intact. JOINT: There are broad areas of full-thickness cartilage loss of the patella and femoral trochlea and also of the medial femoral condyle and medial tibial plateau. There is a trace knee joint effusion. There is no identified intra-articular body or prominent synovitis. BONE: There is a nondisplaced intra-articular fracture of the proximal tibia with involvement of the medial and lateral tibial plateaus. There is edema-like signal in the patella which may reflect degenerative related marrow edema or bone contusion. BURSAE AND SOFT TISSUES: There is nonspecific prepatellar subcutaneous edema. There is minimal fluid in the popliteal fossa without sizable Muñoz's cyst. IMPRESSION: 1. Comminuted nondisplaced intraarticular fracture of the proximal tibia with involvement of the medial and lateral tibial plateau and no offset of the articulating surface. 2. Complete tear of the body and posterior horn of the medial meniscus with medial meniscal extrusion and extension of medial meniscal tissue into the inferior gutter. 3. Severe patellofemoral and medial compartment osteoarthritis with trace knee joint effusion. Called and faxed to Elizabet Donaldson at 12:56 p.m. by annabel. Dictated by: Dictated on workstation # [id number]
== END ==
LOC: RAD 10:34
PROVIDERS: ATTEND Nurse Practitioner Family
DX: S82.125A Nondisplaced fracture of lateral condyle of left tibia, initial encounter for closed fracture (principal); S82.135A Nondisplaced fracture of medial condyle of left tibia, initial encounter for closed fracture; S83.242A Other tear of medial meniscus, current injury, left knee, initial encounter; M17.12 Unilateral primary osteoarthritis, left knee; M25.462 Effusion, left knee; W19.XXXA Unspecified fall, initial encounter
CPT/HCPCS: 73721

== ENCOUNTER 2020-11-05 07:14 | Outpatient (CLI) | payer MEDICARE, OTHER ==
[~2020-11-05] VITALS: Ht 162 cm; Wt 80.4 kg
--- NOTE | 2020-11-05 09:11 | HISTORY AND PHYSICAL ---
DATE OF SERVICE: This will be for outpatient surgery. Date of service, date of surgery, date of outpatient admission will be 11/11/2020 for left knee arthroscopy. HISTORY OF PRESEWNT ILLNESS: The patient is a 70-year-old female with complaints of progressively worsening left knee pain. Two weeks ago, she fell onto a concrete floor and her left knee pain increased at that point. Of note, she had a tibial plateau fracture last year, which was treated conservatively. She reports pain on the medial aspect of the knee. She understands that she will likely require total knee arthroplasty in future, but would like to avoid this for the time being. She reports catching and locking in her knee with associated swelling. REVIEW OF SYSTEMS: No chest pain, no shortness of breath, no dysuria. PAST MEDICAL HISTORY: Hypertension, hypercholesterolemia, coronary artery disease, hypothyroidism. PAST SURGICAL HISTORY: Coronary stent, right total knee arthroplasty, L4-L5 fusion, varicose vein in foot. FAMILY HISTORY: Noncontributory. PRIMARY CARE PROVIDER: Dr. Falk. MEDICATIONS: 1. Celebrex. 2. Citalopram. 3. Pantoprazole. 4. Gabapentin. 5. Clobetasol. 6. Clopidogrel. 7. Repatha. 8. Alendronate. 9. Hydrocodone. 10. Levothyroxine. ALLERGIES: SULFA AND REMICADE. SOCIAL HISTORY: The patient denies tobacco use. She drinks alcohol rarely. RADIOGRAPHS: Reveal an old proximal tibia fracture that appears to be well healed. She has moderate to medial patellofemoral arthrosis. An outside MRI revealed evidence of an extruded medial meniscus tear as well as chondral changes throughout. PHYSICAL EXAMINATION: GENERAL: The patient is well-developed, well-nourished, in no acute distress. HEENT: Normocephalic, atraumatic. Pupils are equal, round, reactive to light. Oropharynx is clear. NECK: Supple, no lymphadenopathy. LUNGS: Clear to auscultation bilaterally. HEART: Regular rate and rhythm. ABDOMEN: Soft, nontender, nondistended. EXTREMITIES: The left knee demonstrates moderate effusion. She is tender along the medial joint line. She has pain with Ernesto. There is no varus valgus laxity. Negative anterior and posterior drawer. She walks with an antalgic gait. Patellofemoral crepitus is noted. Range of motion 0/2/135. 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 PLAN: Left knee arthroscopy with chondroplasty and partial medial meniscectomy. The risks, benefits, options, ramifications and recovery were discussed at length with the patient. She understands and wishes to proceed. Job ID: [id number] DocumentID: [id number] Dictated Date: 11/05/2020 08:43:04 Intermediate Project Manager Date: 11/05/2020 09:10:50 Dictated By: ZAYDA BELL MD
== END 2020-11-05 11:53 | disposition home or self-care (01) ==
LOC: PREOP 07:14
PROVIDERS: ATTEND Orthopaedic Surgery
DX: Z01.818 Encounter for other preprocedural examination (principal)

== ENCOUNTER 2020-11-11 07:40 | Day surgery (SDC) | payer MEDICARE, OTHER ==
[2020-11-11] VITALS (11 sets, daily range): BP systolic 94–164; BP diastolic 56–82
[~2020-11-11] VITALS: Ht 162 cm; Wt 80.4 kg
[~2020-11-11 07:40] MED LIST changes: +oxyCODONE/APAP 5/325MG (PERCOCET 5) TABLET PO PRN
[2020-11-11] MEDS ORDERED: ceFAZolin INJECTION 1,000 MG in WATER (STERILE) FOR INJECTION 10 ML IV ONE (08:15)
[2020-11-11] MEDS ORDERED: LACTATED RINGERS 1,000 ML IV PRN (08:15)
--- NOTE | 2020-11-11 09:17 | Progress Note-Pre Operative ---
Pre-Operative Progress Note H&P Reviewed The H&P was reviewed, patient examined and no changes noted. Date Seen by Provider: Nov 11, 2020 Time Seen by Provider: 09:10 Date H&P Reviewed: Nov 11, 2020 Time H&P Reviewed: 07:11 Pre-Operative Diagnosis: left knee medial meniscus tear and chondromalacia ZAYDA BELL MD Nov 11, 2020 09:17
--- NOTE | 2020-11-11 09:18 | Progress Note-Post Operative ---
Post-Operative Progess Note Surgeon (s)/Cutting Department Supervisor (s) Surgeon ZAYDA BELL MD Cutting Department Supervisor: Henry Bernstein Pre-Operative Diagnosis left knee medial meniscus tear and chondromalacia Post-Operative Diagnosis left knee medial and lateral meniscus tears and chondromalacia of the medial femoral condyle, medial tibial plateau and lateral tibial plateau Procedure & Operative Findings Date of Procedure 11/11/20 Procedure Performed/Findings left knee arthroscopic partial medial and lateral meniscectomies and chondroplasty of medial femoral condyle and medial and lateral tibial plateaus Anesthesia Type GETA Estimated Blood Loss Estimated blood loss (mL): minimal Specimens/Packing Specimens Removed none Packing: none ZAYDA BELL MD Nov 11, 2020 09:18
[2020-11-11] MEDS ORDERED: fentaNYL INJ 100 MCG/2 ML AMP ONE (09:22)
[2020-11-11] MEDS ORDERED: LIDOCAINE PF 2% 5 ML (XYLOCAINE) VIAL ONE (09:22)
[2020-11-11] MEDS ORDERED: ONDANSETRON 4 MG/2 ML (SDV) Z0FRAN ONE (09:22)
[2020-11-11] MEDS ORDERED: proPOfol 200 MG/20 ML (DIPRIVAN) VIAL IV ONE (09:22)
[2020-11-11] MEDS ORDERED: SEVOFLURANE (ULTANE) 15 ML INHAL SOLN ONE (09:22)
[2020-11-11] MEDS ORDERED: MIDAZOLAM 2 MG/2 ML (VERSED) VIAL ONE (09:22)
[2020-11-11] MEDS ORDERED: morphine PF (DURAMORPH) 10 MG/10 ML AMP ONE (09:41)
[2020-11-11] MEDS ORDERED: BUPIVACAINE 0.25% 30 ML (SENSORCAINE) VIAL ONE (09:41)
[2020-11-11] MEDS ORDERED: KETOROLAC 30 MG/ML VIAL ONE (10:45)
[2020-11-11] MEDS ORDERED: ONDANSETRON 4 MG/2 ML (SDV) Z0FRAN IVP PRN (11:00)
[2020-11-11] MEDS ORDERED: HYDROmorphone 2 MG/ML VIAL (DILAUDID) IV ONE (11:00)
--- NOTE | 2020-11-11 14:17 | Physical Therapy Ortho Eval ---
PT Orthopedic Evaluation Type of Surgery Knee Scope Prior Level of Function Current Living Status: Spouse Locomotion (Upon Admit): Independent Established Durable Medical Eq: Front Wheeled Walker, Straight Cane Subjective Subjective Patient currently rates pain at 4/10 in the left knee. Reports she has a cane but left it at home, wants to use that post surgical. Entry Into Home: Stairs With Railing Steps Into Home: 5 Steps Inside Home: 15 Steps Accessories: Railing Present Other Obstacles: patient reports she has a three level home,does not have to go to others ROM ROM: WFL, except focal deficit Strength Strength: WFL Transfer SCALE: Activities may be completed with or without assistive devices. 3-Bvnukqbkaf-gqvpkke completes the activity by him/herself with no assistance from a helper. 5-Set-up or Clean-up Assistance-helper sets up or cleans up; patient completes activity. Zirconia assists only prior to or following the activity. 4-Supervision or Touching Assistance-helper provides verbal cues and/or touching/steadying and/or contact guard assistance as patient completes activity. Assistance may be provided throughout the activity or intermittently. 3-Partial/Moderate Assistance-helper does LESS THAN HALF the effort. Zirconia lifts, holds or supports trunk or limbs, but provides less than half the effort. 2-Substantial/Maximal Assistance-helper does MORE THAN HALF the effort. Zirconia lifts or holds trunk or limbs and provides more than half the effort. 3-Pblpkulir-ayttgs does ALL the effort. Patient does none of the effort to complete the activity. Or, the assistance of 2 or more helpers is required for the patient to complete the activity. If activity was not attempted, code reason: 7-Patient Refused. 9-Not Applicable-not attempted and the patient did not perform the activity before the current illness, exacerbation or injury. 10-Not Attempted due to Environmental Limitations-(lack of equipment, weather restraints, etc.). 88-Not Attempted due to Medical Conditions or Safety Concerns. Transfers (B, C, W/C) (QC): 6 Gait Gait Assistive Device: FWW Left Lower Extremity: Left Weight Bearing Status LLE: Weight Bearing/Tolerated Gait (QC): 6 Distance (QC): 1=up to 49 ft Distance: 50 Gait Level of Assist: 6 Treatment Rendered Treatment: Gait Train, Step Train, Issued Written HEP, Reviewed Precautions Assessment/Goals Understands HEP: Yes Safe Ambulation: Yes Plan Treatment Plan: Discharge Time Time In: 1300 Time Out: 1325 Total Billed Treatment Time: 25 Billed Treatment Time Visit, camilla Salguero JOHN A PT Nov 11, 2020 14:17
--- NOTE | 2020-11-11 15:12 | Anesthesia-General Post-Op ---
General Patient Condition Mental Status/LOC: Same as Preop Cardiovascular: Satisfactory Nausea/Vomiting: Absent Respiratory: Satisfactory Pain: Controlled Complications: Absent Post Op Complications Complications None Follow Up Care/Instructions Patient Instructions None needed. Anesthesia/Patient Condition Patient Condition Patient is doing well, no complaints, stable vital signs, no apparent adverse anesthesia problems. No complications reported per nursing. [place] [facility] [place] Yes PRIYANKA PILLAI CRNA Nov 11, 2020 15:12
--- NOTE | 2020-11-11 16:31 | OPERATIVE REPORT ---
DATE OF SERVICE: 11/11/2020 PREOPERATIVE DIAGNOSES: 1. Left knee medial meniscus tear. 2. Left knee chondromalacia of the medial femoral condyle. 3. Left knee chondromalacia of the medial tibial plateau. POSTOPERATIVE DIAGNOSES: 1. Left knee medial meniscus tear. 2. Left knee chondromalacia of the medial femoral condyle. 3. Left knee chondromalacia of the medial tibial plateau. 4. Left knee lateral meniscus tear. 5. Left knee chondromalacia of the lateral tibial plateau. PROCEDURES: 1. Left knee arthroscopic partial medial meniscectomy. 2. Left knee arthroscopic partial lateral meniscectomy. 3. Left knee arthroscopic chondroplasty of the medial femoral condyle. 4. Left knee arthroscopic chondroplasty of the medial tibial plateau. 5. Left knee arthroscopic chondroplasty of the lateral tibial plateau. SURGEON: Eduardo Bell MD NUTRITION AND DIETETICS INSTRUCTOR: Henry Bernstein, who assisted throughout the procedure and closed the incisions. ANESTHESIA: General endotracheal by Yung Sung CRNA. ESTIMATED BLOOD LOSS: Minimal. DRAINS: None. COMPLICATIONS: None. POSTOPERATIVE PLAN: Routine arthroscopy protocol. The patient was transferred to the recovery room awake and in stable condition. STATEMENT OF MEDICAL NECESSITY: The patient is a 70-year-old female with complaints of left medial knee pain, catching, locking. She did have radiographic evidence of medial compartment arthrosis. However, she had mechanical symptoms. The patient understood that an arthroscopy could help with her mechanical symptoms, but would not cure her arthritic symptoms. Due to functional impairment and failure to improve with conservative measures, the patient elected to proceed with surgical intervention. Examination under anesthesia revealed range of motion 0/2/130 with negative Coral, negative anterior and posterior drawer, no varus valgus laxity, negative pivot shift. ARTHROSCOPIC FINDINGS: The patella demonstrated grade 3 chondral loss centrally and 10 x 10 area as did the trochlea centrally. The medial and lateral gutters were clear. The ACL and PCL were intact. Medial compartment demonstrated osteophyte formation of the distal femur into the medial gutter. There was a complex tear of the posterior horn and body of the medial meniscus involving approximately one half of the posterior horn and body. In addition, there were grade 3 chondral flaps of the central portion of femoral condyle and tibial plateau and adjacent 20 x 20 areas. The lateral compartment demonstrated a tear of the body of the meniscus involving approximately one-third of the body. In addition, there were grade 2 chondral flaps in the anterior aspect of the tibial plateau in a 10 x 10 area. PROCEDURE IN DETAIL: After risks and benefits of procedure were discussed and questions were answered, informed consent was signed and placed on chart, the operative site was confirmed in the preoperative holding area and initialed by the surgeon. The patient was then transferred to the operating room and after adequate levels of general endotracheal anesthetic were obtained, a timeout was called, confirming the operative site. Examination under anesthesia was performed with the above findings noted. The left lower extremity was prepped and draped in the usual sterile fashion. The knee joint was injected with 60 mL of fluid. A standard inferolateral portal was placed for the arthroscope under direct visualization, inferior medial portal was created. The menisci and cruciates carefully probed, above findings noted. The unstable chondral flaps on the medial femoral condyle and medial tibial plateau were debrided with a shaver back to a stable edge and the posterior horn and body of the medial meniscus were debrided, body and a shaver back to a stable edge. This was carefully probed with no further tearing or instability noted. Scope was then redirected into the lateral compartment where the unstable lateral meniscus tear was debrided with shaver back to a stable edge. The unstable chondral flaps on the lateral tibial plateau were debrided with a shaver back to a stable edge and the lateral meniscus tear was debrided back to a stable edge as well. This was carefully probed with no further tearing or instability noted. The knee was copiously irrigated and portal sites were closed with 4-0 nylon in simple interrupted fashion. Knee was injected with Duramorph. Portal sites were infiltrated with plain Marcaine and soft dressing was applied. The patient was transferred to the recovery room awake and in stable condition. Job ID: [id number] DocumentID: [id number] Dictated Date: 11/11/2020 11:00:20 Leather Roller Date: 11/11/2020 16:31:07 Dictated By: EDUARDO BELL MD
--- NOTE | 2020-11-27 11:13 | HISTORY AND PHYSICAL ---
DATE OF SERVICE: This will be for outpatient surgery. Date of service, date of surgery, date of outpatient admission will be 11/11/2020 for left knee arthroscopy. HISTORY OF PRESENT ILLNESS: The patient is a 70-year-old female with complaints of progressively worsening left knee pain. Two weeks ago, she fell onto a concrete floor and her left knee pain increased at that point. Of note, she had a tibial plateau fracture last year, which was treated conservatively. She reports pain on the medial aspect of the knee. She understands that she will likely require total knee arthroplasty in future, but would like to avoid this for the time being. She reports catching and locking in her knee with associated swelling. REVIEW OF SYSTEMS: No chest pain, no shortness of breath, no dysuria. PAST MEDICAL HISTORY: Hypertension, hypercholesterolemia, coronary artery disease, hypothyroidism. PAST SURGICAL HISTORY: Coronary stent, right total knee arthroplasty, L4-L5 fusion, varicose vein in foot. FAMILY HISTORY: Noncontributory. PRIMARY CARE PROVIDER: Dr. Falk. MEDICATIONS: 1. Celebrex. 2. Citalopram. 3. Pantoprazole. 4. Gabapentin. 5. Clobetasol. 6. Clopidogrel. 7. Repatha. 8. Alendronate. 9. Hydrocodone. 10. Levothyroxine. ALLERGIES: SULFA AND REMICADE. SOCIAL HISTORY: The patient denies tobacco use. She drinks alcohol rarely. RADIOGRAPHS: Reveal an old proximal tibia fracture that appears to be well healed. She has moderate to medial patellofemoral arthrosis. An outside MRI revealed evidence of an extruded medial meniscus tear as well as chondral changes throughout. PHYSICAL EXAMINATION: GENERAL: The patient is well-developed, well-nourished, in no acute distress. HEENT: Normocephalic, atraumatic. Pupils are equal, round, reactive to light. Oropharynx is clear. NECK: Supple, no lymphadenopathy. LUNGS: Clear to auscultation bilaterally. HEART: Regular rate and rhythm. ABDOMEN: Soft, nontender, nondistended. EXTREMITIES: The left knee demonstrates moderate effusion. She is tender along the medial joint line. She has pain with Ernesto. There is no varus valgus laxity. Negative anterior and posterior drawer. She walks with an antalgic gait. Patellofemoral crepitus is noted. Range of motion 0/2/135. 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 PLAN: Left knee arthroscopy with chondroplasty and partial medial meniscectomy. The risks, benefits, options, ramifications and recovery were discussed at length with the patient. She understands and wishes to proceed. Job ID: [id number] DocumentID: [id number] Dictated Date: 11/05/2020 08:43:04 Banking Manager Date: 11/05/2020 09:10:50 Dictated By: ZAYDA BELL MD <Dictated by ZAYDA BELL MD> <Electronically signed by ZAYDA BELL MD> 11/05/20 1528 MTDD
== END 2020-11-11 13:35 | disposition home or self-care (01) ==
LOC: SDC 07:40
PROVIDERS: ATTEND Orthopaedic Surgery
DX: S83.232A Complex tear of medial meniscus, current injury, left knee, initial encounter (principal); S83.282A Other tear of lateral meniscus, current injury, left knee, initial encounter; M94.262 Chondromalacia, left knee; I10 Essential (primary) hypertension; I25.10 Atherosclerotic heart disease of native coronary artery without angina pectoris; E78.5 Hyperlipidemia, unspecified; K21.9 Gastro-esophageal reflux disease without esophagitis; E03.9 Hypothyroidism, unspecified; M06.9 Rheumatoid arthritis, unspecified; E78.00 Pure hypercholesterolemia, unspecified; Z79.02 Long term (current) use of antithrombotics/antiplatelets; Z79.890 Hormone replacement therapy; Z79.899 Other long term (current) drug therapy
CPT/HCPCS: 87081

== ENCOUNTER → 2021-05-07 | Outpatient (CLI) | payer MEDICARE, OTHER ==
[~2021-05-07] MED LIST changes: -oxyCODONE/APAP 5/325MG (PERCOCET 5) TABLET PO PRN
--- NOTE | 2021-05-07 11:03 | Diagnostic Imaging Report ---
INDICATION: Routine screening. COMPARISON: 03/10/2020 and 03/04/2019. TECHNIQUE: 2D and 3D bilateral screening mammography was performed with CAD. FINDINGS: Both breasts are heterogeneously dense, limiting the sensitivity of mammography. Scattered benign calcifications throughout both breasts are again noted. No dominant mass or malignant-appearing microcalcifications are seen. The axillae are unremarkable. IMPRESSION: No mammographic features suspicious for malignancy are identified. ACR BI-RADS Category 2: Benign findings. Result letter will be mailed to the patient. Note: At least 10% of breast cancer is not imaged by mammography. Dictated by: Dictated on workstation # [id number]
== END ==
PROVIDERS: ATTEND Nurse Practitioner Family
DX: Z12.31 Encounter for screening mammogram for malignant neoplasm of breast (principal)
CPT/HCPCS: 77063; 77067

== ENCOUNTER → 2021-05-20 | Outpatient (RCR) | payer MEDICARE, OTHER ==
[~2021-05-20] MED LIST changes: +ALEN70TA80 PO; +ASPI-1238 PO; +ASPI325T32 PO; +BIFI4CAP PO; +CARV3.122 PO; +ERGO1250 PO; +HYDR-3820 PO; +MULT-593 PO; +NITR0.4T42 SL; +ROSU20TA32 PO; +TICA90TA PO
== END | disposition home or self-care (01) ==
PROVIDERS: ATTEND Nurse Practitioner
DX: M18.0 Bilateral primary osteoarthritis of first carpometacarpal joints (principal)

== ENCOUNTER 2021-05-21 08:26 | Inpatient (IN) | payer MEDICARE, OTHER ==
[2021-05-21] VITALS (14 sets, daily range): BP systolic 120–162; BP diastolic 65–112
[~2021-05-21] VITALS: Ht 162 cm; Wt 83.0 kg
[~2021-05-21 08:26] MED LIST changes: -ALEN70TA80 PO; -ASPI-1238 PO; -ASPI325T32 PO; -BIFI4CAP PO; -CARV3.122 PO; -ERGO1250 PO; -HYDR-3820 PO; -MULT-593 PO; -NITR0.4T42 SL; -ROSU20TA32 PO; -TICA90TA PO
[2021-05-21] MEDS ORDERED: ASPIRIN 81 MG CHEW (CHILDREN'S ASA) PO ONE (08:45)
--- NOTE | 2021-05-21 08:46 | ED Chest Pain ---
General Chief Complaint: Chest Pain Stated Complaint: CHEST PAIN - SOA Nursing Triage Note: PT STATES SHE WOKE UP AT 0630 WITH SEVERE CHEST PAIN AND DIZZINESS. TOOK X2 BABY ASA BEFORE COMING TO THE ER. Source: patient Exam Limitations: no limitations (VERONICA SWANSON MED STUDENT) History of Present Illness Date Seen by Provider: May 21, 2021 Time Seen by Provider: 08:32 Initial Comments Mrs. Obrien is a 70yo female with PMH Cardiac stent 2 years ago, HTN, and HLD, that presents to ED today due to Chest pain and SOB. She states that the pain came on this morning about 0800. Rated it about an 8, crushing pain in the center of her chest. Since then it has gotten up to a 9. She was told by her PCP Dr. Falk to come to ED. 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 She has taken regular asprin this morning and is also on it chronically. She does not notice anything that makes the pain worse including exertion. She states that she did not have any symptoms yesterday and that this pain is new for her. She has never had a heart attack before. She denies any other symptoms. Does not smoke or use drugs, rarely drinks. Sulfa allergy. She is not on a blood thinner (VERONICA SWANSON STUDENT) Allergies and Home Medications Allergies Coded Allergies: Sulfa (Sulfonamide Antibiotics) (Verified Allergy, Intermediate, HIVES, 03/24/15) amlodipine (Verified Allergy, Mild, 03/18/18) swelling to lower extremities infliximab (Verified Adverse Reaction, Unknown, Hives, 11/05/20) Patient Home Medication List Home Medication List Reviewed: Yes (JOE VILLASENOR MD) Alendronate Sodium (Alendronate Sodium) 70 Mg Tablet, 70 MG PO MON, (Reported) Entered as Reported by: JAY MORENO on 05/21/211505 Last Action: Held Aspirin (Aspirin EC) 325 Mg Tablet., 325 MG PO DAILY, (Reported) Entered as Reported by: JAY MORENO on 05/21/211505 Last Action: Held Bifidobacterium Infantis (Align) 4 Mg Capsule, 4 MG PO DAILY, (Reported) Entered as Reported by: JAY MORENO on 05/21/211505 Last Action: Held Celecoxib (Celecoxib) 200 Mg Capsule, 200 MG PO DAILY, (Reported) Entered as Reported by: AJY MORENO on 07/25/191337 Last Action: Held Citalopram Hydrobromide (Citalopram HBr) 20 Mg Tablet, 20 MG PO DAILY, (Reported) Entered as Reported by: JAY MORENO on 07/25/191337 Last Action: Continued Ergocalciferol (Vitamin D2) (Vitamin D2) 1,250 Mcg Capsule, 1,250 MCG PO SUN, (Reported) Entered as Reported by: JAY MORENO on 05/21/21 151 Last Action: Held Evolocumab (Repatha Sureclick) 140 Mg/1 Ml Pen.injctr, 140 MG INJ EVERY 2 WEEKS, (Reported) Entered as Reported by: JAY MORENO on 07/25/191337 Last Action: Held Gabapentin (Neurontin) 300 Mg Capsule, 300 MG PO 1199,1999, (Reported) Entered as Reported by: JAY MORENO on 07/25/191337 Last Action: Continued Hydralazine HCl (Hydralazine HCl) 50 Mg Tablet, 50 MG PO HS, (Reported) Entered as Reported by: JAY MORENO on 07/25/191337 Last Action: Held Hydrocodone/Acetaminophen (Hydrocodone-Acetamin 10-325 mg) 1 Each Tablet, 1 EA PO TID PRN for PAIN-MODERATE (5-7), (Reported) Entered as Reported by: JAY MORENO on 05/21/21 150 Last Action: Continued Levothyroxine Sodium (Levothyroxine Sodium) 75 Mcg Tablet, 75 MCG PO DAILY, (Reported) Entered as Reported by: JAY MORENO on 07/25/191337 Last Action: Continued Multivitamin with Minerals (Multiple Vitamin) 1 Each Tablet, 1 EACH PO DAILY, (Reported) Entered as Reported by: JAY MORENO on 05/21/21 150 Last Action: Held Olmesartan Medoxomil (Olmesartan Medoxomil) 40 Mg Tablet, 40 MG PO DAILY, (Reported) Entered as Reported by: JAY MORENO on 07/25/191337 Last Action: Converted Discontinued Medications Aspirin (Aspirin) 81 Mg Tab.chew, 81 MG PO DAILY, (Reported) Discontinued Reason: Prescription changed Entered as Reported by: JAY MORENO on 07/25/191337 Cholecalciferol (Vitamin D3) (Vitamin D3) 50 Mcg Capsule, 50 MCG PO DAILY, (Reported) Discontinued Reason: Prescription changed Entered as Reported by: JAY MORENO on 07/25/191337 Last Action: Reviewed Clopidogrel Bisulfate (Clopidogrel) 75 Mg Tablet, 75 MG PO DAILY, (Reported) Discontinued Reason: Duplicate Order Entered as Reported by: JAY MORENO on 07/25/191337 Last Action: Discontinued Pantoprazole Sodium (Pantoprazole Sodium) 40 Mg Tablet.dr, 40 MG PO DAILY, (Reported) Discontinued Reason: No Longer Taking Entered as Reported by: JAY MORENO on 07/25/191337 Last Action: Discontinued Review of Systems Review of Systems Constitutional: No chills, No fever EENTM: No Blurred Vision, No Double Vision Respiratory: Denies Cough; Shortness of Air; Denies Wheezing Cardiovascular: Chest Pain; Denies Edema, Denies Palpitations Gastrointestinal: Denies Abdominal Pain, Denies Constipated, Denies Diarrhea, Denies Nausea, Denies Vomiting Genitourinary: Denies Hematuria; Other (no dysuria) Musculoskeletal: No joint pain, No joint swelling Skin: No lesions, No rash Psychiatric/Neurological: Denies Headache, Denies Numbness (KIKITongda STUDENT) Past Mgsfern-Ygaavw-Xyvdpl Hx Patient Social History Tobacco Use?: No Substance use?: No Alcohol Use?: No (Cornice STUDENT) Immunizations Up To Date PED Vaccines UTD: Yes First/Initial COVID19 Vaccinat: MAR 2020 Second COVID19 Vaccination [place]: APRIL 2020 Third COVID19 Vaccination Date: NA COVID19 Vaccine Tub Rider: MODERNA (Cornice STUDENT) Seasonal Allergies Seasonal Allergies: No (Cornice STUDENT) Past Medical History Surgeries: Yes (HEART STENT 2019,RIGHT TKR 2018,BACK L4 L5 FUSION, RIGHT ROTAT OR CUFF REPAI) Hysterectomy, Orthopedic, Tonsillectomy Respiratory: No Currently Using CPAP: No Currently Using BIPAP: No Cardiac: Yes Coronary Artery Disease, High Cholesterol, Hypertension Neurological: Yes (2013) Concussion Reproductive Disorders: No Female Reproductive Disorders: 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 Sexually Transmitted Disease: No HIV/AIDS: No Genitourinary: No Gastrointestinal: Yes (SURGERY TO PREVENT GERD) Gastroesophageal Reflux Musculoskeletal: Yes (KNEE REPLACEMENT, FOOT SURGERIES, ROTATOR CUFF SURGERY) Arthritis, Rheumatoid Arthritis Endocrine: Yes Hypothyroidsim HEENT: No Loss of Vision: Denies Hearing Impairment: Denies Cancer: No Psychosocial: No Depression Integumentary: No Blood Disorders: No Adverse Reaction/Blood Tranf: No (VERONICA SWANSON) Coronary Stent (JOE VILLASENOR MD) Family Medical History Chest pain 19 FATHER Congestive heart failure 19 FATHER Family history: Alzheimer's disease 19 MOTHER Family history: Cardiovascular disease 19 FATHER Family history: Hypertension 19 FATHER Family history: Thyroid disorder G8 SISTER Heart disease 19 FATHER Hypercholesterolemia 19 FATHER 19 MOTHER G8 BROTHER Myocardial infarction 19 FATHER Stroke 19 FATHER No Family History of: Abdominal aortic aneurysm [place]'s disease Alcoholism Aphasia Cancer Cancer of colon Cataract Cystic fibrosis Dementia Dysphagia Family history: Diabetes mellitus Family history: Gastrointestinal disease History of - anemia History of drug abuse Human immunodeficiency virus (HIV) seropositivity Infertile Parkinson's disease Prostate cancer Psychotic disorder Seizure disorder Tuberculosis Heart Disease, Hypertension, Stroke (VERONICA SWANSON) Physical Exam Vital Signs Vital Signs - First Documented 05/21/21 08:26 Temp 36.3 Pulse 68 Resp 16 B/P (MAP) 174/107 (129) Pulse Ox 74 (JOE VILLASENOR MD) Vital Signs Capillary Refill : Less Than 3 Seconds (VERONICA SWANSON) Height, Weight, BMI Height: 5'4.00" Weight: 174lbs. 6.0oz. [id number]; 30.00 BMI Method:Stated General Appearance: No Apparent Distress, WD/WN HEENT: PERRL/EOMI, Pharynx Normal, Moist Mucous Membranes Respiratory: Chest Non Tender, Lungs Clear, Normal Breath Sounds Cardiovascular: Regular Rate, Rhythm, No Edema, No Murmur, Normal Peripheral Pulses, Other (Hypertensive 170's) Gastrointestinal: Normal Bowel Sounds, Non Tender, Soft Extremity: Non Tender, No Calf Tenderness, No Pedal Edema Neurologic/Psychiatric: Alert, Oriented x3, Normal Mood/Affect Skin: Normal Color, Warm/Dry (VERONICA SWANSON STUDENT) Procedures/Interventions Suture Size: 4-0 (KIKI,VERONICA MED STUDENT) Progress/Results/Core Measures Results/Orders Lab Results Laboratory Tests Test 05/21/21 09:06 Range/Units White Blood Count 5.1 4.3-11.0 10^3/uL Red Blood Count 4.36 3.80-5.11 10^6/uL Hemoglobin 12.9 11.5-16.0 g/dL Hematocrit 40 35-52 % Mean Corpuscular Volume 92 80-99 fL Mean Corpuscular Hemoglobin 30 25-34 pg Mean Corpuscular Hemoglobin Concent 32 32-36 g/dL Red Cell Distribution Width 12.5 10.0-14.5 % Platelet Count 263 130-400 10^3/uL Mean Platelet Volume 9.8 9.0-12.2 fL Immature Granulocyte % (Auto) 1 % Neutrophils (%) (Auto) 60 42-75 % Lymphocytes (%) (Auto) 26 12-44 % Monocytes (%) (Auto) 10 0-12 % Eosinophils (%) (Auto) 2 0-10 % Basophils (%) (Auto) 1 0-10 % Neutrophils # (Auto) 3.1 1.8-7.8 10^3/uL Lymphocytes # (Auto) 1.3 1.0-4.0 10^3/uL Monocytes # (Auto) 0.5 0.0-1.0 10^3/uL Eosinophils # (Auto) 0.1 0.0-0.3 10^3/uL Basophils # (Auto) 0.1 0.0-0.1 10^3/uL Immature Granulocyte # (Auto) 0.0 0.0-0.1 10^3/uL Prothrombin Time 12.9 12.2-14.7 SEC INR Comment 0.9 0.8-1.4 Activated Partial Thromboplast Time 27 24-35 SEC Sodium Level 136 135-145 MMOL/L Potassium Level 4.2 3.6-5.0 MMOL/L Chloride Level 101 98-107 MMOL/L Carbon Dioxide Level 21 21-32 MMOL/L Anion Gap 14 5-14 MMOL/L Blood Urea Nitrogen 18 7-18 MG/DL Creatinine 0.78 0.60-1.30 MG/DL Estimat Glomerular Filtration Rate 81 BUN/Creatinine Ratio 23 Glucose Level 114 H 70-105 MG/DL Calcium Level 9.2 8.5-10.1 MG/DL Corrected Calcium 9.4 8.5-10.1 MG/DL Magnesium Level 1.8 1.6-2.4 MG/DL Total Bilirubin 0.4 0.1-1.0 MG/DL Aspartate Amino Transf (AST/SGOT) 17 5-34 U/L Alanine Aminotransferase (ALT/SGPT) 11 0-55 U/L Alkaline Phosphatase 69 40-136 U/L Myoglobin 227.8 H 10.0-92.0 NG/ML Troponin I 0.313 *H <0.028 NG/ML Total Protein 6.7 6.4-8.2 GM/DL Albumin 3.8 3.2-4.5 GM/DL (JOE VILLASENOR MD) My Orders Orders - JOE VILLASENOR MD Cbc With Automated Diff (05/21/21 08:39) Magnesium (05/21/21 08:39) Chest 1 View, Ap/Pa Only (05/21/21 08:39) Ekg Tracing (05/21/21 08:39) Comprehensive Metabolic Panel (05/21/21 08:39) Myoglobin Serum (05/21/21 08:39) Protime With Inr (05/21/21 08:39) Partial Thromboplastin Time (05/21/21 08:39) O2 (05/21/21 08:39) Monitor-Rhythm Ecg Trace Only (05/21/21 08:39) Ed Iv/Invasive Line Start (05/21/21 08:39) Troponin I Mccone (05/21/21 08:39) Nitroglycerin 0.4 Mg Btl 25's (Nitrostat (05/21/21 08:45) Aspirin Chewable Tablet (Baby Aspirin Ch (05/21/21 08:45) Ekg Tracing (05/21/21 08:50) Ondansetron Injection (Zofran Injectio (05/21/21 09:15) Enoxaparin Injection (Lovenox Injection (05/21/21 10:00) Nitroglycerin Ointment (Nitrobid Ointme (05/21/21 10:00) (JOE VILLASENOR MD) Medications Given in ED (JOE VILLASENOR MD) Vital Signs/I&O 05/21/21 08:26 Temp 36.3 Pulse 68 Resp 16 B/P (MAP) 174/107 (129) Pulse Ox 74 (JOE VILLASENOR MD) Blood Pressure Mean: 129 Progress Progress Note #1: Time: 09:26 Progress Note Patient was interviewed and examined by me along with MS 4. Initial EKG demonstrated subtle ST depression in multiple leads at 08:29. Repeat EKG after nitroglycerin at 09:03 showed improvement in the ST changes. Pain improved from 9/10 down to 7.5/10. Patient declines any further pain medication. Pain was a 9 and crushing/heavy at onset when she woke. Troponin is still pending at this time. Patient was hypertensive prior to nitroglycerin and is now normotensive. She had not yet taken her blood pressure medication this morning. Progress Note #2: Time: 10:00 Progress Note Troponin returned elevated. Patient is being admitted to the cardiac stepdown unit for NSTEMI. Case was discussed with Dr. Hurd who requested she receive Nitropaste and a dose of Lovenox. Case was also discussed with Dr. Falk. (JOE VILLASENOR MD) EKG #1: EKG Time: 08:29 Rate: 71 Rhythm: Normal Sinus Comment Sinus rhythm with subtle ST changes possibly representing ischemia. No STEMI. No abnormal intervals or axis deviation. EKG #2: EKG Time: 09:03 Rate: 85 Rhythm: Normal Sinus Intervals: Normal ECG Impression: Normal Comment Normal sinus rhythm with no ST elevation or depression. No abnormal intervals or axis deviation. Subtle ST changes on previous EKG have resolved. This EKG was obtained after nitroglycerin sublingual x2. (JOE VILLASENOR MD) Diagnostic Imaging Diagonstic Imaging: Xray Plain Films/CT/US/NM/MRI: chest Comments Chest x-ray viewed by me and report reviewed. See report below: NAME: HARI OBRIEN [facility] REC#: [id number] PT STATUS: REG ER : 1950 PHYSICIAN: JOE VILLASENOR MD ADMIT DATE: 05/21/21/ER Draft Date of Exam:05/21/21 CHEST 1 VIEW, AP/PA ONLY INDICATION: Chest pain COMPARISON: 08/08/2013 FINDINGS: Single frontal view of the chest demonstrates normal heart size and pulmonary vascularity. The lungs are well aerated and clear. No large pleural effusion or pneumothorax is seen. The visualized osseous structures show no acute abnormalities. IMPRESSION: 1. No acute cardiopulmonary process. Dictated on workstation # [id number] Dict: 05/21/21920 Trans: 05/21/21922 [facility] [id number] Interpreted by: TERENCE CEVALLOS MD (JOE VILLASENOR MD) Departure Communication (Admissions) Time/Spoke to Admitting Phy: 09:55 Dr. Falk Time/Spoke to Consulting Phy: 09:50 Dr. Hurd (JOE VILLASENOR MD) Impression Primary Impression: NSTEMI (non-ST elevated myocardial infarction) Additional Impression: Chest pain Qualified Codes: R07.9 - Chest pain, unspecified Disposition: ADMITTED INPATIENT Condition: Stable Admissions Decision to Admit Reason: Admit from ER (General) Decision to Admit/Date: May 21, 2021 Time/Decision to Admit Time: 09:50 (JOE VILLASENOR MD) Departure-Patient Inst. Referrals: MELIZA FALK MD (PCP/Family) Primary Care Physician Medical Student Attestation and Attending Note: I have personally interviewed and examined this patient along with Veronica Swanson, MS 4. I have reviewed student documentation including history, physical, and assessments. I agree with the documentation except where otherwise noted. Exam: General: Alert, oriented, no acute distress, well developed HEENT: Normocephalic and atraumatic Heart: Regular rate and rhythm without murmur, chest nontender to palpation Lungs: Clear to auscultation bilaterally with normal effort Abdomen: Soft, nontender, nondistended, normal bowel sounds Extremities: No edema, nontender Neuropsych: Alert, oriented, no focal deficits Skin: Warm and dry without rashes (JOE VILLASENOR MD) Copy Copies To 1: JOSE LUIS HURD JR, MD Copies To 2: MELIZA FALK MD, DEREK MED STUDENT May 21, 2021 08:46 JOE VILLASENOR MD May 21, 2021 09:30
[2021-05-21] MEDS: NITROGLYCERIN 0.4 MG SL TABS BTL 25'S SL PRN ×2 (08:55→09:03)
[2021-05-21 09:12] LABS: BASOPHILS # (AUTO) 0.1 10^3/uL (0.0-0.1); BASOPHILS % (AUTO) 1 % (0-10); EOSINOPHILS # (AUTO) 0.1 10^3/uL (0.0-0.3); EOSINOPHILS % (AUTO) 2 % (0-10); HEMATOCRIT 40 % (35-52); HEMOGLOBIN 12.9 g/dL (11.5-16.0); LYMPHOCYTES # (AUTO) 1.3 10^3/uL (1.0-4.0); LYMPHOCYTES % (AUTO) 26 % (12-44); MEAN CORPUSCULAR HEMOGLOBIN 30 pg (25-34); MEAN CORPUSCULAR HGB CONC 32 g/dL (32-36); MEAN CORPUSCULAR VOLUME 92 fL (80-99); MEAN PLATELET VOLUME 9.8 fL (9.0-12.2); MONOCYTES # (AUTO) 0.5 10^3/uL (0.0-1.0); MONOCYTES % (AUTO) 10 % (0-12); NEUTROPHILS # (AUTO) 3.1 10^3/uL (1.8-7.8); NEUTROPHILS % (AUTO) 60 % (42-75); PLATELET COUNT 263 10^3/uL (130-400); WHITE BLOOD COUNT 5.1 10^3/uL (4.3-11.0)
[2021-05-21] MEDS ORDERED: ONDANSETRON 4 MG/2 ML (SDV) Z0FRAN IVP ONE (09:15)
[2021-05-21 09:19] LABS: ALBUMIN 3.8 GM/DL (3.2-4.5); POTASSIUM 4.2 MMOL/L (3.6-5.0)
[2021-05-21 09:21] LABS: CALCIUM 9.2 MG/DL (8.5-10.1)
[2021-05-21 09:22] LABS: INR 0.9 (0.8-1.4); PROTHROMBIN TIME PATIENT 12.9 SEC (12.2-14.7); TOTAL PROTEIN 6.7 GM/DL (6.4-8.2)
--- NOTE | 2021-05-21 09:23 | Diagnostic Imaging Report ---
INDICATION: Chest pain COMPARISON: 08/08/2013 FINDINGS: Single frontal view of the chest demonstrates normal heart size and pulmonary vascularity. The lungs are well aerated and clear. No large pleural effusion or pneumothorax is seen. The visualized osseous structures show no acute abnormalities. IMPRESSION: 1. No acute cardiopulmonary process. Dictated by: Dictated on workstation # [id number]
[2021-05-21 09:24] LABS: BILIRUBIN,TOTAL 0.4 MG/DL (0.1-1.0)
[2021-05-21 09:25] LABS: CREATININE SERUM 0.78 MG/DL (0.60-1.30)
[2021-05-21 09:28] LABS: MAGNESIUM 1.8 MG/DL (1.6-2.4)
[2021-05-21] MEDS ORDERED: NITROGLYCERIN 2% OINT 1 GM UNIT DOSE PACKET TOP ONE (10:00)
[2021-05-21] MEDS ORDERED: ENOXAPARIN 80 MG/0.8 ML (LOVENOX) SYR SC ONE (10:00)
[2021-05-21] MEDS ORDERED: NS IV 1000 ML 1,000 ML ONE (11:29)
[2021-05-21] MEDS ORDERED: CATHETER FLUSH 10 ML SYR IVP PRN (11:30)
[2021-05-21] MEDS ORDERED: NITROGLYCERIN 2% OINT 1 GM UNIT DOSE PACKET TOP SCH (11:30)
--- NOTE | 2021-05-21 11:33 | History & Physical ---
History of Present Illness History of Present Illness Reason for visit/HPI Pt is a 70 y/o female who is known to me from clinic. Dalila has autoimmune arthritis, is managed by a Paper Tube Machine Operator in , and usually follows with Mathematics Improvement Teacher in at [facility] as well. She reports that she has been seeing the Mathematics Improvement Teacher by Telehealth appointments only over the past 2 years, and had been taking off of plavix in the past 6 weeks. She had been doing well at home without any symptoms of chest pain or shortness of breath until early this morning when she awakened with "crushing chest pain", she took Aspirin, pain did not improve, she then waited to go to my office, and was directed to go to the ER instead due to her symptoms of chest pain that awakened her from sleep. In the ER she was given aspirin, nitro, and still had chest pain, she was found to have mildly abnormal Troponin on the second set of cardiac labs, and was therefore admitted to the Cardiac Stepdown unit with chest pain and need for further work-up. Cardiology was called and consulted from the ER on admission. Date of Admission May 21, 2021 at 09:55 Date Seen by a Provider: May 21, 2021 Time Seen by a Provider: 11:15 Attending Physician Meliza Falk MD Admitting Physician Meliza Falk MD Consult Dr. Hurd - Mathematics Improvement Teacher Allergies and Home Medications Allergies Coded Allergies: Sulfa (Sulfonamide Antibiotics) (Verified Allergy, Intermediate, HIVES, 03/24/15) amlodipine (Verified Allergy, Mild, 03/18/18) swelling to lower extremities infliximab (Verified Adverse Reaction, Unknown, Hives, 11/05/20) Patient Home Medication List Home Medication List Reviewed: Yes Alendronate Sodium (Alendronate Sodium) 70 Mg Tablet, 70 MG PO WED, (Reported) Entered as Reported by: JAY MORENO on 05/21/211505 Last Action: Held Aspirin (Aspirin EC) 325 Mg Tablet., 325 MG PO DAILY, (Reported) Entered as Reported by: JAY MORENO on 05/21/211505 Last Action: Held Bifidobacterium Infantis (Align) 4 Mg Capsule, 4 MG PO DAILY, (Reported) Entered as Reported by: JAY MORENO on 05/21/211505 Last Action: Held Celecoxib (Celecoxib) 200 Mg Capsule, 200 MG PO DAILY, (Reported) Entered as Reported by: JAY MORENO on 07/25/191337 Last Action: Held Citalopram Hydrobromide (Citalopram HBr) 20 Mg Tablet, 20 MG PO DAILY, (Reported) Entered as Reported by: JAY MORENO on 07/25/191337 Last Action: Continued Ergocalciferol (Vitamin D2) (Vitamin D2) 1,250 Mcg Capsule, 1,250 MCG PO SUN, (Reported) Entered as Reported by: JAY MORENO on 05/21/21 151 Last Action: Held Evolocumab (Repatha Sureclick) 140 Mg/1 Ml Pen.injctr, 140 MG INJ EVERY 2 WEEKS, (Reported) Entered as Reported by: JAY MORENO on 07/25/191337 Last Action: Held Gabapentin (Neurontin) 300 Mg Capsule, 300 MG PO 1200,1999, (Reported) Entered as Reported by: JAY MORENO on 07/25/191337 Last Action: Continued Hydralazine HCl (Hydralazine HCl) 50 Mg Tablet, 50 MG PO HS, (Reported) Entered as Reported by: JAY MORENO on 07/25/191337 Last Action: Held Hydrocodone/Acetaminophen (Hydrocodone-Acetamin 10-325 mg) 1 Each Tablet, 1 EA PO TID PRN for PAIN-MODERATE (5-7), (Reported) Entered as Reported by: JAY MORENO on 05/21/21 150 Last Action: Continued Levothyroxine Sodium (Levothyroxine Sodium) 75 Mcg Tablet, 75 MCG PO DAILY, (Reported) Entered as Reported by: JAY MORENO on 07/25/191337 Last Action: Continued Multivitamin with Minerals (Multiple Vitamin) 1 Each Tablet, 1 EACH PO DAILY, (Reported) Entered as Reported by: JAY MORENO on 05/21/21 150 Last Action: Held Olmesartan Medoxomil (Olmesartan Medoxomil) 40 Mg Tablet, 40 MG PO DAILY, (Reported) Entered as Reported by: JAY MORENO on 07/25/191337 Last Action: Converted Discontinued Medications Aspirin (Aspirin) 81 Mg Tab.chew, 81 MG PO DAILY, (Reported) Discontinued Reason: Prescription changed Entered as Reported by: JAY MORENO on 07/25/191337 Cholecalciferol (Vitamin D3) (Vitamin D3) 50 Mcg Capsule, 50 MCG PO DAILY, (Reported) Discontinued Reason: Prescription changed Entered as Reported by: JAY MORENO on 07/25/191337 Last Action: Reviewed Clopidogrel Bisulfate (Clopidogrel) 75 Mg Tablet, 75 MG PO DAILY, (Reported) Discontinued Reason: Duplicate Order Entered as Reported by: JAY MORENO on 07/25/191337 Last Action: Discontinued Pantoprazole Sodium (Pantoprazole Sodium) 40 Mg Tablet.dr, 40 MG PO DAILY, (Reported) Discontinued Reason: No Longer Taking Entered as Reported by: JAY MORENO on 07/25/191337 Last Action: Discontinued Past [id number]-Jjjvsb Hx Patient Social History Marrital Status: Living Status: lives at home with spouse Employed/Student: retired Tobacco Use?: No Use of E-Cig and/or Vaping dev: No Substance use?: No Alcohol Use?: Yes Alcohol type: Wine Alcohol Frequency: Once in a while Pt feels they are or have been: No Immunizations Up To Date First/Initial COVID19 Vaccinat: MAR 2020 Second COVID19 Vaccination [place]: APRIL 2020 PED Vaccines UTD: Yes Seasonal Allergies Seasonal Allergies: No Current Status status: No status: No Advance Directives: No Communicates: Verbally Primary Language: Ecuadorean Preferred Spoken Language: Ecuadorean Is interpretation needed?: No Past Medical History Surgeries: Hysterectomy, Orthopedic, Tonsillectomy Currently Using CPAP: No Currently Using BIPAP: No Coronary Artery Disease, High Cholesterol, Hypertension 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 Sexually Transmitted Disease: No HIV/AIDS: No Gastroesophageal Reflux Arthritis, Rheumatoid Arthritis Hypothyroidsim Loss of Vision: Denies Hearing Impairment: Denies Depression Blood Disorders: No Adverse Reaction/Blood Tranf: No Family Medical History Reviewed and Corrections made Chest pain 19 FATHER Congestive heart failure 19 FATHER Family history: Alzheimer's disease 19 MOTHER Family history: Cardiovascular disease 19 FATHER Family history: Hypertension 19 FATHER Family history: Thyroid disorder G8 SISTER Heart disease 19 FATHER Hypercholesterolemia 19 FATHER 19 MOTHER G8 BROTHER Myocardial infarction 19 FATHER Stroke 19 FATHER No Family History of: Abdominal aortic aneurysm Eleazar's disease Alcoholism Aphasia Cancer Cancer of colon Cataract Cystic fibrosis Dementia Dysphagia Family history: Diabetes mellitus Family history: Gastrointestinal disease History of - anemia History of drug abuse Human immunodeficiency virus (HIV) seropositivity Infertile Parkinson's disease Prostate cancer Psychotic disorder Seizure disorder Tuberculosis Heart Disease, CAD Over 55 Years Old, Hypertension, Stroke, Other Conditions/Hx (dementia) Review of Systems Constitutional: No chills, No diaphoresis; dizziness; No fever, No malaise, No weakness EENTM: hearing loss; No blurred vision, No double vision, No vision loss, No mouth pain Respiratory: No cough, No dyspnea on exertion; short of breath Cardiovascular: chest pain, Hx of Intervention, palpitations Gastrointestinal: No abdominal pain, No constipation, No diarrhea; heartburn; No nausea, No vomiting Genitourinary: no symptoms reported Musculoskeletal: joint pain, joint swelling Skin: no symptoms reported Psychiatric/Neurological: Headache; Denies Numbness, Denies Tingling, Denies Weakness All Other Systems Reviewed Negative Unless Noted: Yes Physical Exam Vital Signs Vital Signs - First Documented 05/21/21 05/21/21 08:26 10:55 Temp 36.3 Pulse 68 Resp 16 B/P (MAP) 174/107 (129) Pulse Ox 74 O2 Delivery Room Air Capillary Refill : Less Than 3 Seconds Height, Weight, BMI Height: 5'4.00" Weight: 174lbs. 6.0oz. [id number]; 31.62 BMI Method:Stated General Appearance: No Apparent Distress, WD/WN HEENT: PERRL/EOMI, Pharynx Normal Neck: Full Range of Motion, Supple Respiratory: Chest Non Tender, Lungs Clear, Normal Breath Sounds, No Accessory Muscle Use, No Respiratory Distress Cardiovascular: Regular Rate, Rhythm, No Edema, Normal Peripheral Pulses Gastrointestinal: Normal Bowel Sounds, Non Tender, Soft Rectal: Deferred Extremity: Normal Capillary Refill, Normal Range of Motion, Non Tender, No Calf Tenderness, No Pedal Edema, Other Neurologic/Psychiatric: Alert, Oriented x3, No Motor/Sensory Deficits, Normal Mood/Affect Skin: Normal Color, Warm/Dry Lymphatic: No Adenopathy Assessment/Plan Assessment and Plan Chest pain NSTEMI Hypertensive Urgency Chronic hypertension Rheumatoid Arthritis Chronic immunotherapy Hypothyroidism Chest pain with NSTEMI - defer to Dr. Hurd - pt on nitro, aspirin, lovenox, and was taken down to heart cath after this com writer saw pt - see his procedure note for full details. PERCUTANEOUS CORONARY INTERVENTION: Percutaneous coronary intervention was carried out on the first diagonal branch (left anterior descending coronary artery) through a 6 Ukrainian CLS 3.5 guide catheter. I first successfully crossed the stenosis with a Whisper medium support guidewire. I subsequently performed coronary angioplasty with a 2.5 x 12 mm Trek balloon at a pressure of 6 amy for several inflations. There was still sluggish flow. Intracoronary nitroglycerin and intracoronary adenosine were then administered and the flow improved. I could then see that the guidewire was in a smaller of several subbranches. I repositioned the wire into the larger of the subbranches. There appeared to be a focal narrowing more distally. Additional intracoronary nitroglycerin was administered and there was no change in this area. Therefore, I performed angioplasty in the first diagonal branch more distally with a 2 x 12 mm Trek balloon at a pressure of 6 amy. I subsequently deployed a 2.25 x 15 mm drug- eluting Xience Skypoint stent in the proximal segment of the first diagonal branch at a pressure of 16 amy. Following stent placement, there was 0% residual stenosis with JUNIOR-3 flow. There was a small area of contrast filling near the small subbranch where the wire had initially traversed. However, there was no evidence of dye staining in the myocardium or pericardial space. There was no obvious evidence of a perforation. The exact significance of this finding is unclear. IMPRESSION: 1. Normal central aortic pressure with elevated left ventricular end-diastolic pressure. 2. Acute thrombotic occlusion of the first diagonal branch. This was the ischemia related vessel for the non-ST elevation myocardial infarction. 3. Patent stent in the mid left anterior descending coronary artery. 4. Status post drug-eluting stent placement to the first diagonal branch with a 2.25 x 15 mm Skypoint stent with 0% residual stenosis and JUNIOR-3 flow. 4. There was moderate residual stenosis in the mid segment of the dominant right coronary artery as outlined above. 5. I will obtain an echocardiogram later today to assess left ventricular function. Hypertensive Urgency - resume her ARB tomorrow morning. Rheumatoid Arthritis on Chronic immunotherapy - hold immune modulating medications at this time. - hold celebrex tomorrow as well Hypothyroidism - resume levothyroxine tomorrow, check labs, TSH, Free T4, total T3 Admission Diagnosis Chest pain NSTEMI Hypertensive Urgency Chronic hypertension Rheumatoid Arthritis Chronic immunotherapy Hypothyroidism Admission Status: Inpatient Order (span 2 midnights) Reason for Inpatient Admission: anticipate 2 midnights in hospital for stabilization and monitoring. Clinical Quality Measures AMI/AHF: ASA po Prior to arrival: Yes (162MG) MELIZA FALK MD May 21, 2021 11:33
[2021-05-21] MEDS: morphine INJ 4 MG/ML 1 ML (VIAL/SYRINGE) IV PRN ×2 (11:42→23:11)
[2021-05-21] MEDS ORDERED: ONDANSETRON 4 MG/2 ML (SDV) Z0FRAN IV PRN (11:45)
[2021-05-21] MEDS: NS IV 1000 ML 1,000 ML IV SCH ×2 (11:57→22:31)
[2021-05-21] MEDS ORDERED: NS IV 1000 ML 1,000 ML IV ONE (12:00)
[2021-05-21] MEDS ORDERED: CATHETER FLUSH 10 ML SYR IV PRN (12:00)
--- NOTE | 2021-05-21 12:05 | Consultation-Cardiology ---
HPI-Cardiology Cardiology Consultation: Date of Consultation 05/21/21 Date of Admission 05/21/21 Attending Physician Shannon Falk MD Admitting Physician Shannon Falk MD Consulting Physician JOSE LUIS PRICE JR, MD HPI: Time Seen by a Provider: 12:04 Chief Complaint: Reason for consultation: Possible non-ST elevation myocardial infarction. I had the pleasure of seeing Dalila on the cardiac stepdown unit at [facility] in [place], [place] this morning. She has a history of coronary artery disease with a previous drug-eluting stent to the mid left anterior descending coronary on July 23, 2019, hypertension, hyperlipidemia, rheumatoid arthritis and obesity. Early this morning she woke up with severe substernal chest discomfort. She felt like an elephant was sitting on her chest. The original pain was 9/10. She got up and took 2 aspirin. However, the pain persisted and she came to the emergency room for further evaluation. In the emergency room she was given additional aspirin as well as sublingual nitroglycerin and her chest discomfort improved but did not resolve. She was then treated with a therapeutic dose of enoxaparin and topical nitrates. She was then admitted to the cardiac care unit but has continued to have ongoing chest discomfort. Her initial troponin level was also elevated consistent with a probable non-ST elevation myocardial infarction. She is also having some shortness of breath with the chest discomfort. She states she has mild, chronic dyspnea on exertion which has been unchanged. She denies paroxysmal nocturnal dyspnea, orthopnea, palpitations, lightheadedness, syncope, or ankle edema. Certain portions of this document may have been dictated utilizing voice recognition technology. Inherent to this technology, typographical and grammatical errors may exist. As much as I am diligent to identify and correct these mistakes, some errors may remain in the document. Review of Systems-Cardiology Review of Systems Other comments Review of 10 organ systems is as per the history of present illness, otherwise negative. VIF-Dmdeoc-Utmoli Hx Patient Social History 2nd Hand Smoke Exposure: No Have you traveled recently?: No Alcohol Use?: Yes Pt feels they are or have been: No Past Medical History PMH As described under Assessment. Family Medical History Family History: Chest pain 19 FATHER Congestive heart failure 19 FATHER Family history: Alzheimer's disease 19 MOTHER Family history: Cardiovascular disease 19 FATHER Family history: Hypertension 19 FATHER Family history: Thyroid disorder G8 SISTER Heart disease 19 FATHER Hypercholesterolemia 19 FATHER 19 MOTHER G8 BROTHER Myocardial infarction 19 FATHER Stroke 19 FATHER No Family History of: Abdominal aortic aneurysm Avon's disease Alcoholism Aphasia Cancer Cancer of colon Cataract Cystic fibrosis Dementia Dysphagia Family history: Diabetes mellitus Family history: Gastrointestinal disease History of - anemia History of drug abuse Human immunodeficiency virus (HIV) seropositivity Infertile Parkinson's disease Prostate cancer Psychotic disorder Seizure disorder Tuberculosis Allergies and Home Medications Allergies Coded Allergies: Sulfa (Sulfonamide Antibiotics) (Verified Allergy, Intermediate, HIVES, 03/24/15) amlodipine (Verified Allergy, Mild, 03/18/18) swelling to lower extremities infliximab (Verified Adverse Reaction, Unknown, Hives, 11/05/20) Patient Home Medication List Home Medication List Reviewed: Yes Aspirin (Aspirin) 81 Mg Tab.chew, 81 MG PO DAILY, (Reported) Entered as Reported by: JAY MORENO on 07/25/191337 Celecoxib (Celecoxib) 200 Mg Capsule, 200 MG PO DAILY, (Reported) Entered as Reported by: JAY MORENO on 07/25/191337 Cholecalciferol (Vitamin D3) (Vitamin D3) 50 Mcg Capsule, 50 MCG PO DAILY, (Reported) Entered as Reported by: JAY MORENO on 07/25/191337 Citalopram Hydrobromide (Citalopram HBr) 20 Mg Tablet, 20 MG PO DAILY, (Reported) Entered as Reported by: JAY MORENO on 07/25/191337 Clopidogrel Bisulfate (Clopidogrel) 75 Mg Tablet, 75 MG PO DAILY, (Reported) Entered as Reported by: JAY MORENO on 07/25/191337 Evolocumab (Repatha Sureclick) 140 Mg/1 Ml Pen.injctr, 140 MG INJ EVERY 2 WEEKS, (Reported) Entered as Reported by: JAY MORENO on 07/25/191337 Gabapentin (Neurontin) 300 Mg Capsule, 300-600 MG PO HS PRN for PAIN- BREAKTHROUGH, (Reported) Entered as Reported by: JAY MORENO on 07/25/191337 Hydralazine HCl (Hydralazine HCl) 50 Mg Tablet, 50 MG PO BID, (Reported) Entered as Reported by: JAY MORENO on 07/25/191337 Levothyroxine Sodium (Levothyroxine Sodium) 75 Mcg Tablet, 75 MCG PO DAILY, (Reported) Entered as Reported by: JAY MORENO on 07/25/191337 Olmesartan Medoxomil (Olmesartan Medoxomil) 40 Mg Tablet, 40 MG PO DAILY, (Reported) Entered as Reported by: JAY MORENO on 07/25/191337 Pantoprazole Sodium (Pantoprazole Sodium) 40 Mg Tablet.dr, 40 MG PO DAILY, (Reported) Entered as Reported by: JAY MORENO on 07/25/191337 Exam Vital Signs Vital Signs Date Time Temp Pulse Resp B/P (MAP) Pulse Ox O2 Delivery O2 Flow Rate FiO2 05/21/21 11:35 69 20 135/78 (97) 98 Room Air 05/21/21 08:26 36.3 Physical Exam General: Alert. No acute distress. Well nourished and appears stated age. She is obese. Eye: Extraocular movements are intact. Conjunctivae are clear. There are no xanthelasma. HENT: Normocephalic. Atraumatic. Carotid pulsations 2/2 without bruits. Neck: Jugular venous pressure does not appear elevated. No thyromegaly appreci ated. Respiratory: Lungs are clear to auscultation. Respirations are non-labored. Breath sounds are equal. Symmetrical chest wall expansion. Cardiovascular: Normal rate. Regular rhythm. No murmur. No gallop. Point of maximal impulse is not appear displaced. Good pulses equal in all extremities. No edema. Gastrointestinal: Soft. Normal bowel sounds. Skin: Skin turgor is normal. There is no pallor. Musculoskeletal: No kyphosis or scoliosis appreciated. Neurologic: Alert and oriented to person, place, time. Cranial nerves 3-12 appear grossly intact. The patient has good motor tone strength in the upper and lower extremities bilaterally. Psychiatric: Cooperative. Appropriate mood & affect. Labs Laboratory Tests Test 05/21/21 09:06 Range/Units White Blood Count 5.1 4.3-11.0 10^3/uL Red Blood Count 4.36 3.80-5.11 10^6/uL Hemoglobin 12.9 11.5-16.0 g/dL Hematocrit 40 35-52 % Mean Corpuscular Volume 92 80-99 fL Mean Corpuscular Hemoglobin 30 25-34 pg Mean Corpuscular Hemoglobin Concent 32 32-36 g/dL Red Cell Distribution Width 12.5 10.0-14.5 % Platelet Count 263 130-400 10^3/uL Mean Platelet Volume 9.8 9.0-12.2 fL Immature Granulocyte % (Auto) 1 % Neutrophils (%) (Auto) 60 42-75 % Lymphocytes (%) (Auto) 26 12-44 % Monocytes (%) (Auto) 10 0-12 % Eosinophils (%) (Auto) 2 0-10 % Basophils (%) (Auto) 1 0-10 % Neutrophils # (Auto) 3.1 1.8-7.8 10^3/uL Lymphocytes # (Auto) 1.3 1.0-4.0 10^3/uL Monocytes # (Auto) 0.5 0.0-1.0 10^3/uL Eosinophils # (Auto) 0.1 0.0-0.3 10^3/uL Basophils # (Auto) 0.1 0.0-0.1 10^3/uL Immature Granulocyte # (Auto) 0.0 0.0-0.1 10^3/uL Prothrombin Time 12.9 12.2-14.7 SEC INR Comment 0.9 0.8-1.4 Activated Partial Thromboplast Time 27 24-35 SEC Sodium Level 136 135-145 MMOL/L Potassium Level 4.2 3.6-5.0 MMOL/L Chloride Level 101 98-107 MMOL/L Carbon Dioxide Level 21 21-32 MMOL/L Anion Gap 14 5-14 MMOL/L Blood Urea Nitrogen 18 7-18 MG/DL Creatinine 0.78 0.60-1.30 MG/DL Estimat Glomerular Filtration Rate 81 BUN/Creatinine Ratio 23 Glucose Level 114 H 70-105 MG/DL Calcium Level 9.2 8.5-10.1 MG/DL Corrected Calcium 9.4 8.5-10.1 MG/DL Magnesium Level 1.8 1.6-2.4 MG/DL Total Bilirubin 0.4 0.1-1.0 MG/DL Aspartate Amino Transf (AST/SGOT) 17 5-34 U/L Alanine Aminotransferase (ALT/SGPT) 11 0-55 U/L Alkaline Phosphatase 69 40-136 U/L Myoglobin 227.8 H 10.0-92.0 NG/ML Troponin I 0.313 *H <0.028 NG/ML Total Protein 6.7 6.4-8.2 GM/DL Albumin 3.8 3.2-4.5 GM/DL ECG Impression ECG Comment Sinus rhythm with possible old anteroseptal myocardial infarction and diffuse ST depression. Diagnosis/Problems Diagnosis/Problems (1) Non-ST elevation myocardial infarction (NSTEMI), initial care episode Assessment & Plan: She appears to have an acute non-ST elevation myocardial infarction. She has ongoing chest discomfort despite good medical therapy. There is no evidence of a STEMI on her chest x-ray. I recommend further evaluation with an urgent cardiac catheterization. I have explained the benefits and risks of the procedure to the patient and she is in agreement to proceed. I will also obtain an echocardiogram later today. (2) Primary hypertension Assessment & Plan: Resume outpatient antihypertensive medication. (3) Mixed hyperlipidemia Assessment & Plan: Resume outpatient cholesterol medication. (4) History of stroke without residual deficits Assessment & Plan: She suffered a stroke of the day following her previous coronary stent. Fortunately, she has no residual deficits. She should continue on aspirin and cholesterol medication. (5) Coronary artery disease with unstable angina pectoris Assessment & Plan: As above. JOSE LUIS PRICE JR, MD May 21, 2021 12:05
[2021-05-21] MEDS ORDERED: NITRO DRIP 25000 MCG/D5W 250 ML IV ONE (12:06)
[2021-05-21] MEDS ORDERED: fentaNYL INJ 100 MCG/2 ML AMP ONE (12:06)
[2021-05-21] MEDS ORDERED: HEParin (CATH LAB) 2,000 ML IV ONE (12:06)
[2021-05-21] MEDS ORDERED: HEParin 1000 UNIT/ML (10ML VIAL) FOR BOLUS ONE (12:06)
[2021-05-21] MEDS ORDERED: MIDAZOLAM 5 MG/5 ML (VERSED) VIAL ONE (12:06)
[2021-05-21] MEDS ORDERED: VERAPAMIL 5 MG/2 ML (CALAN) VIAL IV ONE (12:06)
[2021-05-21] MEDS ORDERED: LIDOCAINE 2% 20 ML (XYLOCAINE) VIAL ONE (12:07)
--- NOTE | 2021-05-21 12:14 | Pre-Op Note & Conscious Sedat ---
Pre-Operative Progress Note H&P Reviewed The H&P was reviewed, patient examined and no changes noted. Date H&P Reviewed: May 21, 2021 Time H&P Reviewed: 12:13 Pre-Op Diagnosis: NSTEMI Conscious Sedation Pre-Proced ASA Score 3 For ASA 3 and 4: Consider anesthesia and medical clearance. Also, for patients with a history of failed moderate sedation consider anesthesia. Airway Lungs Heart ASA score ASA 1: a normal healthy patient ASA 2: a patient with a mild systemic disease (mid diabetes, controlled hypertension, obesity ASA 3: a patient with a severe systemic disease that limits activity (angina, COPD, prior Myocardial infarction) ASA 4: a patient with an incapacitating disease that is a constant threat to life (CHF, renal failure) ASA 5: a moribund patient not expected to survive 24 hrs. (ruptured aneurysm) ASA 6: a declared brain- patient whose organs are being harvested. For emergent operations, add the letter E after the classification Mallampati Classification Grade 2 Sedation Plan Analgesia, Amnesia, Plan communicated to team members, Discussed options with patient/fam, Discussed risks with patient/fam The patient is an appropriate candidate to undergo the planned procedure, sedation, and anesthesia. The patient immediately re-assessed prior to indication. JOSE LUIS PRICE JR, MD May 21, 2021 12:14
[2021-05-21] MEDS ORDERED: TICAGRELOR 90 MG TABLET (BRILINTA) PO ONE (13:12)
[2021-05-21] MEDS ORDERED: ADENOSINE 6 MG/2 ML (ADENOCARD) VIAL IV ONE (13:19)
[2021-05-21] MEDS ORDERED: NS (IVPB) 250 ML ONE (13:20)
[2021-05-21] MEDS ORDERED: NS IV 1000 ML 1,000 ML IV SCH (13:45)
--- NOTE | 2021-05-21 13:46 | Cardiac Cath Report ---
CARDIAC CATHETERIZATION DATE OF PROCEDURE: 05/21/2021 INDICATION: NSTEMI. HISTORY: The patient is a 70 year old female with a known history of coronary artery disease who has a previous stent in her mid left anterior descending co ronary artery that was done at [facility] in [place], [place] in July 2019. Her symptom prior to that stent was fatigue. This morning she woke up with severe substernal chest discomfort. After this persisted for a while, she came to the emergency room for further evaluation. Her electrocardiogram showed ST depression but no signs of a STEMI. She underwent the usual evaluation and then her troponin level came back positive. She was treated with aspirin, topical nitroglycerin and a therapeutic dose of enoxaparin but continued to have chest pain. Therefore, she is now referred for further evaluation with a cardiac catheterization. PROCEDURES PERFORMED: 1. Left heart catheterization with hemodynamic measurements. 2. Diagnostic [place] coronary angiography. 3. Drug-eluting stent placement to first diagonal branch (left anterior descending coronary artery for acute myocardial infarction. PROCEDURE DESCRIPTION: After informed consent and in the fasting state, left heart catheterization was initially performed through the right radial artery utilizing a 6 Guatemalan system by percutaneous approach. I was able to interrogate the left ventricle with a 5 Guatemalan JR4 catheter in the right coronary artery with a 5 Guatemalan AL-1 catheter. However, I was not able to get any catheter to engage the left coronary artery from the right radial artery. Therefore, I obtained access to the right femoral artery using a micropuncture technique. The micropuncture sheath was then exchanged for a 6 Guatemalan sheath. I was then able to interrogate the left coronary artery with the 5 Guatemalan AL-1 catheter. A 6 [place]alan CLS 3.5 guide catheter was utilized for the percutaneous coronary intervention from the right femoral sheath. All catheters were exchanged over a guidewire. Following the procedure, a vascular band was applied to the radial artery access site and the sheath was removed with good hemostasis. Also following the procedure, a right femoral angiogram showed the sheath to be entering either just above or just at the bifurcation. A Mynx closure device was deployed for femoral arterial hemostasis. RESULTS: HEMODYNAMICS: The aortic pressure was 105/65 mmHg. The left ventricular pressure was 114/0 mmHg with a left ventricular end-diastolic pressure of 16 mmHg. There was no significant pressure gradient upon pullback across aortic valve. CORONARY ANGIOGRAPHY: Left main coronary artery: Free of significant disease. Left anterior descending coronary artery: There was a long 50% stenosis in the proximal segment with JUNIOR-3 flow. There was a stent to the mid segment which was widely patent. There was a moderate size diagonal branch just proximal to this stent which contained a 100% total thrombotic occlusion with JUNIOR 0 flow. This was most likely the ischemia related vessel for the acute myocardial infarction. Left circumflex coronary artery: Free of significant disease. Right coronary artery: Dominant and there was moderate to severe plaque in the mid segment with a focal 70% stenosis right at the takeoff of a small branch with JUNIOR-3 flow. PERCUTANEOUS CORONARY INTERVENTION: Percutaneous coronary intervention was carried out on the first diagonal branch (left anterior descending coronary artery) through a 6 [place]alan CLS 3.5 guide catheter. I first successfully crossed the stenosis with a Whisper medium support guidewire. I subsequently performed coronary angioplasty with a 2.5 x 12 mm Trek balloon at a pressure of 6 amy for several inflations. There was still sluggish flow. Intracoronary nitroglycerin and intracoronary adenosine were then administered and the flow improved. I could then see that the guidewire was in a smaller of several subbranches. I repositioned the wire into the larger of the subbranches. There appeared to be a focal narrowing more distally. Additional intracoronary nitroglycerin was administered and there was no change in this area. Therefore, I performed angioplasty in the first diagonal branch more distally with a 2 x 12 mm Trek balloon at a pressure of 6 amy. I subsequently deployed a 2.25 x 15 mm drug- eluting Xience Skypoint stent in the proximal segment of the first diagonal branch at a pressure of 16 amy. Following stent placement, there was 0% residual stenosis with JUNIOR-3 flow. There was a small area of contrast filling near the small subbranch where the wire had initially traversed. However, there was no evidence of dye staining in the myocardium or pericardial space. There was no obvious evidence of a perforation. The exact significance of this finding is unclear. IMPRESSION: 1. Normal central aortic pressure with elevated left ventricular end-diastolic pressure. 2. Acute thrombotic occlusion of the first diagonal branch. This was the ischemia related vessel for the non-ST elevation myocardial infarction. 3. Patent stent in the mid left anterior descending coronary artery. 4. Status post drug-eluting stent placement to the first diagonal branch with a 2.25 x 15 mm Skypoint stent with 0% residual stenosis and JUNIOR-3 flow. 4. There was moderate residual stenosis in the mid segment of the dominant right coronary artery as outlined above. 5. I will obtain an echocardiogram later today to assess left ventricular function. Certain portions of this document may have been dictated utilizing voice recognition technology. Inherent to this technology, typographical and grammatical errors may exist. As much as I am diligent to identify and correct these mistakes, some errors may remain in the document. JOSE LUIS PRICE JR, MD May 21, 2021 13:46
[2021-05-21] MEDS ORDERED: MULT-593 PO (15:06)
[2021-05-21] MEDS ORDERED: BIFI4CAP PO (15:06)
[2021-05-21] MEDS ORDERED: ALEN70TA80 PO (15:06)
[2021-05-21] MEDS ORDERED: HYDR-3820 PO (15:06)
[2021-05-21] MEDS ORDERED: ASPI325T32 PO (15:06)
[2021-05-21] MEDS ORDERED: ERGO1250 PO (15:11)
[2021-05-21] MEDS: TICAGRELOR 90 MG TABLET (BRILINTA) PO SCH (20:57)
[2021-05-21] MEDS ORDERED: ROSUVASTATIN 10 MG (CRESTOR) TABLET PO SCH (21:00)
[2021-05-21] MEDS: GABAPENTIN 300 MG (NEURONTIN) CAP PO SCH (23:00)
[2021-05-21] MEDS: PANTOPRAZOLE 40 MG (PROTONIX) VIAL IV SCH (23:00)
[2021-05-22] VITALS: BP 109/63
[2021-05-22] MEDS ORDERED: diphenhydrAMINE 25 MG TAB (BENADRYL) PO ONE (00:26)
[2021-05-22] MEDS ORDERED: diphenhydrAMINE 25 MG TAB (BENADRYL) PO PRN (00:30)
[2021-05-22 04:00] VITALS: BP 119/59
[2021-05-22 05:23] LABS: HEMATOCRIT 37 % (35-52); HEMOGLOBIN 11.9 g/dL (11.5-16.0); MEAN CORPUSCULAR HEMOGLOBIN 30 pg (25-34); MEAN CORPUSCULAR HGB CONC 32 g/dL (32-36); MEAN CORPUSCULAR VOLUME 93 fL (80-99); PLATELET COUNT 266 10^3/uL (130-400); WHITE BLOOD COUNT 7.2 10^3/uL (4.3-11.0)
[2021-05-22 05:36] LABS: ALBUMIN 3.5 GM/DL (3.2-4.5); POTASSIUM 4.3 MMOL/L (3.6-5.0)
[2021-05-22 05:39] LABS: TOTAL PROTEIN 6.1 GM/DL (6.4-8.2)
[2021-05-22 05:40] LABS: BILIRUBIN,TOTAL 0.4 MG/DL (0.1-1.0)
[2021-05-22 05:42] LABS: CREATININE SERUM 0.79 MG/DL (0.60-1.30)
[2021-05-22] MEDS ORDERED: LEVOTHYROXINE 75 MCG (LEVOTHROID) TABLET PO SCH (07:00)
[2021-05-22 07:39] VITALS: BP 122/75
[2021-05-22] MEDS: PANTOPRAZOLE 40 MG (PROTONIX) VIAL IV SCH (07:55)
[2021-05-22] MEDS: TICAGRELOR 90 MG TABLET (BRILINTA) PO SCH (07:56)
[2021-05-22] MEDS ORDERED: ENOXAPARIN 40 MG/0.4 ML (LOVENOX) SYR SC SCH (08:15)
--- NOTE | 2021-05-22 08:55 | Cardiology Progress Note ---
Progress Note-Cardiology Events since last exam Date Seen by Provider: May 22, 2021 Time Seen by Provider: 08:50 Events since last exam I am following her due to NSTEMI which was due to acute thrombotic occlusion of a diagonal branch that was treated with 1 drug-eluting stent. Overnight she developed a hematoma at the right femoral access site. She denies any further chest discomfort. She is anxious to get out of bed. The hematoma is quite painful. She denies dyspnea, palpitations, syncope, or ankle edema. Certain portions of this document may have been dictated utilizing voice recognition technology. Inherent to this technology, typographical and grammatical errors may exist. As much as I am diligent to identify and correct these mistakes, some errors may remain in the document. Vitals Last set of Vitals Signs Vital Signs 05/22/21 07:39 Temp 36.5 Pulse 73 Resp 16 B/P (MAP) 122/75 (91) Pulse Ox 97 O2 Delivery Room Air Labs Labs Laboratory Tests 05/21/21 09:06 05/22/21 05:09 Exam Vital Signs Vital Signs Date Time Temp Pulse Resp B/P (MAP) Pulse Ox O2 Delivery O2 Flow Rate FiO2 05/22/21 07:39 36.5 73 16 122/75 (91) 97 Room Air Physical Exam General: Alert. No acute distress. Eye: No xanthelasma. HENT: Normocephalic. Neck: Jugular venous pressure does not appear elevated. Respiratory: Lungs are clear to auscultation. Respirations are non-labored. Breath sounds are equal. Symmetrical chest wall expansion. Cardiovascular: Normal rate. Regular rhythm. No murmur. No gallop. No edema. There is a large hematoma at the right femoral access site that is tender. There is no active oozing from the site. Gastrointestinal: Soft. Normal bowel sounds. Skin: Warm. Dry. Neurologic: Alert and oriented to person, place, time. Cranial nerves 3-11 grossly intact. Psychiatric: Cooperative. Appropriate mood & affect. Labs Laboratory Tests Test 05/21/21 09:06 05/21/21 15:17 05/22/21 05:09 Range/Units White Blood Count 5.1 7.2 4.3-11.0 10^3/uL Red Blood Count 4.36 3.96 3.80-5.11 10^6/uL Hemoglobin 12.9 11.9 11.5-16.0 g/dL Hematocrit 40 37 35-52 % Mean Corpuscular Volume 92 93 80-99 fL Mean Corpuscular Hemoglobin 30 30 25-34 pg Mean Corpuscular Hemoglobin Concent 32 32 32-36 g/dL Red Cell Distribution Width 12.5 12.6 10.0-14.5 % Platelet Count 263 266 130-400 10^3/uL Mean Platelet Volume 9.8 10.0 9.0-12.2 fL Immature Granulocyte % (Auto) 1 % Neutrophils (%) (Auto) 60 42-75 % Lymphocytes (%) (Auto) 26 12-44 % Monocytes (%) (Auto) 10 0-12 % Eosinophils (%) (Auto) 2 0-10 % Basophils (%) (Auto) 1 0-10 % Neutrophils # (Auto) 3.1 1.8-7.8 10^3/uL Lymphocytes # (Auto) 1.3 1.0-4.0 10^3/uL Monocytes # (Auto) 0.5 0.0-1.0 10^3/uL Eosinophils # (Auto) 0.1 0.0-0.3 10^3/uL Basophils # (Auto) 0.1 0.0-0.1 10^3/uL Immature Granulocyte # (Auto) 0.0 0.0-0.1 10^3/uL Prothrombin Time 12.9 12.2-14.7 SEC INR Comment 0.9 0.8-1.4 Activated Partial Thromboplast Time 27 24-35 SEC Sodium Level 136 134 L 135-145 MMOL/L Potassium Level 4.2 4.3 3.6-5.0 MMOL/L Chloride Level 101 102 98-107 MMOL/L Carbon Dioxide Level 21 20 L 21-32 MMOL/L Anion Gap 14 12 5-14 MMOL/L Blood Urea Nitrogen 18 19 H 7-18 MG/DL Creatinine 0.78 0.79 0.60-1.30 MG/DL Estimat Glomerular Filtration Rate 81 80 BUN/Creatinine Ratio 23 24 Glucose Level 114 H 122 H 70-105 MG/DL Calcium Level 9.2 9.0 8.5-10.1 MG/DL Corrected Calcium 9.4 9.4 8.5-10.1 MG/DL Magnesium Level 1.8 1.6-2.4 MG/DL Total Bilirubin 0.4 0.4 0.1-1.0 MG/DL Aspartate Amino Transf (AST/SGOT) 17 74 H 5-34 U/L Alanine Aminotransferase (ALT/SGPT) 11 19 0-55 U/L Alkaline Phosphatase 69 64 40-136 U/L Myoglobin 227.8 H 10.0-92.0 NG/ML Troponin I 0.313 *H 6.881 *H 10.184 *H <0.028 NG/ML Total Protein 6.7 6.1 L 6.4-8.2 GM/DL Albumin 3.8 3.5 3.2-4.5 GM/DL Triglycerides Level 240 H <150 MG/DL Cholesterol Level 234 H < 200 MG/DL LDL Cholesterol Direct 157 H 1-129 MG/DL VLDL Cholesterol 48 H 5-40 MG/DL HDL Cholesterol 45 40-60 MG/DL Diagnosis/Problems Diagnosis/Problems (1) Non-ST elevation myocardial infarction (NSTEMI), initial care episode Assessment & Plan: She had acute thrombotic closure of the first diagonal branch that was treated with 1 drug-eluting stent with an excellent result. She has moderate residual disease of the mid right coronary artery that may need to be addressed at a later point in time. She has a normal ejection fraction. She has had no significant arrhythmias on telemetry. Her troponin level kimberley sligh tly higher than I would have expected from this branch occlusion. However, her chest discomfort has all resolved. I have ordered 1 more troponin level for later this morning and if this is trending down and there are no issues with her femoral access site, she may be able to be discharged later this afternoon. If the troponin level continues to rise or there are other issues with the right femoral access site, I would recommend she stay 1 additional night. I recommend she continue on aspirin, Brilinta and statin medication. I will also start low- dose beta-madan. If the primary attending would prefer the patient to stay overnight, I would not be opposed. (2) Primary hypertension Assessment & Plan: She is on losartan which is formulary substitution for olmesartan that she was taking at home. I will also start low-dose beta-madan in light of the acute myocardial infarction. (3) Mixed hyperlipidemia Assessment & Plan: Her LDL level was quite elevated during this admission. She was on a PCSK9 inhibitor at home. I started low-dose rosuvastatin which I have increased due to the elevated LDL level. (4) Hematoma of groin Assessment & Plan: She did have a Mynx closure device deployed to the right femoral artery following the procedure. When she returned to the floor, she developed a hematoma. This was most likely a closure device failure. The hematoma seems to have stabilized. I will obtain a groin ultrasound to exclude pseudoaneurysm. (5) History of stroke without residual deficits Assessment & Plan: She suffered a stroke of the day following her previous coronary stent. Fortunately, she has no residual deficits. She should continue on aspirin and cholesterol medication. (6) Coronary artery disease with unstable angina pectoris Assessment & Plan: As above. JOSE LUIS PRICE JR, MD May 22, 2021 08:55
[2021-05-22] MEDS ORDERED: ASPIRIN E.C. 81 MG (ECOTRIN) TAB PO SCH (09:00)
[2021-05-22] MEDS ORDERED: VALSARTAN 80 MG (DIOVAN) TAB PO SCH (09:00)
[2021-05-22] MEDS ORDERED: TICA90TA PO (10:31)
[2021-05-22] MEDS ORDERED: NITROGLYCERIN 0.4 MG SL TABS BTL 25'S SL PRN (10:45)
[2021-05-22] MEDS: GABAPENTIN 300 MG (NEURONTIN) CAP PO SCH (11:49)
[2021-05-22 11:53] VITALS: BP 139/87
--- NOTE | 2021-05-22 11:56 | Diagnostic Imaging Report ---
INDICATION: Right lower quadrant and right groin swelling, recent arterial access. COMPARISON: None. DISCUSSION: Limited targeted sonographic evaluation of the right inguinal region was performed. Limited visualization as the area was very tender and difficult to scan. The underlying common femoral artery and common femoral vein appear patent. Anterior to these vascular structures is a complex fluid collection measuring 5 x 3.3 x 3.4 cm which shows no internal color Doppler blood flow. Whether this represents a hematoma or thrombosed pseudoaneurysm is indeterminate. IMPRESSION: Complex fluid collection within the right inguinal region as described, likely a hematoma or thrombosed pseudoaneurysm. The underlying artery and vein are patent. There is no neck identified. Dictated by: Dictated on workstation # [id number]
[2021-05-22] MEDS ORDERED: ROSU20TA32 PO (14:20)
[2021-05-22] MEDS ORDERED: NITR0.4T42 SL (14:20)
[2021-05-22] MEDS ORDERED: ASPI-1238 PO (14:20)
[2021-05-22] MEDS ORDERED: CARV3.122 PO (14:20)
--- NOTE | 2021-05-22 15:24 | Discharge Summary ---
Discharge Summary Hospital Course Problems/Dx: (1) Non-ST elevation myocardial infarction (NSTEMI), initial care episode Status: Acute (2) Primary hypertension (3) Mixed hyperlipidemia (4) Hematoma of groin (5) History of stroke without residual deficits (6) Coronary artery disease with unstable angina pectoris Hospital Course Date of Admission: May 21, 2021 at 09:55 Admission Diagnosis : NSTEMI Family Physician/Provider: Shannon Falk MD Date of Discharge: 05/22/21 Discharge Diagnosis: NSTEMI Hospital Course: Dalila Hameed is a 70 year old female who was admitted with NSTEMI. Cardiology was consulted and assisted with her care. She had a significant increase in her troponin level. She underwent a left heart catheterization which revealed a blockage in the first diagonal branch of the left anterior descending artery and a drug-eluting stent was placed. She was started on Aspirin and Brilinta. She also had dyslipidemia despite treatment with Repatha and was started on Crestor. She was also started on low dose Coreg. Her course was complicated by hematoma at the access site in her groin which was evaluated and remained stable. She should follow up with Cardiology and Dr. Falk as scheduled. She was discharged home in stable condition. Labs and Pending Lab Test: Laboratory Tests 05/21/21 15:17: Troponin I 6.881*H 05/22/21 05:09: Troponin I 10.184*H, White Blood Count 7.2, Red Blood Count 3.96, Hemoglobin 11.9, Hematocrit 37, Mean Corpuscular Volume 93, Mean Corpuscular Hemoglobin 30, Mean Corpuscular Hemoglobin Concent 32, Red Cell Distribution Width 12.6, Platelet Count 266, Mean Platelet Volume 10.0, Sodium Level 134L, Potassium Level 4.3, Chloride Level 102, Carbon Dioxide Level 20L, Anion Gap 12, Blood Urea Nitrogen 19H, Creatinine 0.79, Estimat Glomerular Filtration Rate 80, BUN/Creatinine Ratio 24, Glucose Level 122H, Calcium Level 9.0, Corrected Calcium 9.4, Total Bilirubin 0.4, Aspartate Amino Transf (AST/SGOT) 74H, Alanine Aminotransferase (ALT/SGPT) 19, Alkaline Phosphatase 64, Total Protein 6.1L, Albumin 3.5, Triglycerides Level 240H, Cholesterol Level 234H, LDL Cholesterol Direct 157H, VLDL Cholesterol 48H, HDL Cholesterol 45 05/22/21 10:10: Troponin I 9.599*H Home Meds Active Aspirin EC (Aspirin) 81 Mg Tablet.dr 81 Mg PO DAILY Carvedilol 3.125 Mg Tablet 3.125 Mg PO BID Nitroglycerin 0.4 Mg Tab.subl 0.4 Mg SL NEEDED PRN Rosuvastatin Calcium 20 Mg Tablet 40 Mg PO HS Brilinta (Ticagrelor) 90 Mg Tablet 90 Mg PO BID Reported Vitamin D2 (Ergocalciferol (Vitamin D2)) 1,250 Mcg Capsule 1,250 Mcg PO SUN Multiple Vitamin (Multivitamin with Minerals) 1 Each Tablet 1 Each PO DAILY Align (Bifidobacterium Infantis) 4 Mg Capsule 4 Mg PO DAILY Alendronate Sodium 70 Mg Tablet 70 Mg PO WED Hydrocodone-Acetamin 10-325 mg (Hydrocodone/Acetaminophen) 1 Each Tablet 1 Ea PO TID PRN Aspirin EC (Aspirin) 325 Mg Tablet. 325 Mg PO DAILY Citalopram HBr (Citalopram Hydrobromide) 20 Mg Tablet 20 Mg PO DAILY Neurontin (Gabapentin) 300 Mg Capsule 300 Mg PO 1200,1999 Celecoxib 200 Mg Capsule 200 Mg PO DAILY Levothyroxine Sodium 75 Mcg Tablet 75 Mcg PO DAILY Repatha Sureclick (Evolocumab) 140 Mg/1 Ml Pen.injctr 140 Mg INJ EVERY 2 WEEKS Hydralazine HCl 50 Mg Tablet 50 Mg PO HS Olmesartan Medoxomil 40 Mg Tablet 40 Mg PO DAILY Assessment/Pt Instructions Take medications as prescribed. Follow up with your PCP and Cardiology. Return with worsening chest pain, shortness of breath, or if you feel like you are get ting worse. Discharge Planning: <30 minutes discharge planning Discharge Instructions Discharge Diet: No Restrictions Activity as Tolerated: Yes Consultations Cardiology Discharge Physical Examination Vital Signs Vital Signs Date Time Temp Pulse Resp B/P (MAP) Pulse Ox O2 Delivery O2 Flow Rate FiO2 05/22/21 12:28 67 05/22/21 11:53 36.4 13 139/87 (104) 99 Room Air General Appearance: No Apparent Distress, Obese Respiratory: Lungs Clear, No Respiratory Distress Cardiovascular: Regular Rate, Rhythm, No Murmur Gastrointestinal: Normal Bowel Sounds, Soft Extremity: No Pedal Edema Skin: Normal Color, Warm/Dry Neurologic/Psychiatric: Alert, Normal Mood/Affect Allergies: Coded Allergies: Sulfa (Sulfonamide Antibiotics) (Verified Allergy, Intermediate, HIVES, 03/24/15) amlodipine (Verified Allergy, Mild, 03/18/18) swelling to lower extremities infliximab (Verified Adverse Reaction, Unknown, Hives, 11/05/20) Copy Copies To 1: SHANNON FALK MD Discharge Summary Date of Admission May 21, 2021 at 09:55 Date of Discharge Discharge Date: May 22, 2021 Discharge Time: 15:15 Admission Diagnosis NSTEMI Consults/Procedures Consulations Cardiology Procedures Left heart cath with coronary artery stent placement Discharge Diagnosis (1) Non-ST elevation myocardial infarction (NSTEMI), initial care episode Status: Acute (2) Primary hypertension (3) Mixed hyperlipidemia (4) Hematoma of groin (5) History of stroke without residual deficits (6) Coronary artery disease with unstable angina pectoris Clinical Quality Measures AMI/AHF: ASA po Prior to arrival: Yes (162MG) SOPHIE JOHNSON MD May 22, 2021 15:18
[2021-05-22] MEDS ORDERED: ROSUVASTATIN 20 MG (CRESTOR) TABLET PO SCH (21:00)
== END 2021-05-22 15:50 | disposition home or self-care (01) | DRG 247 ==
LOC: EDUNIT# 08:26 → ER 08:27 → CSD 09:55
PROVIDERS: ADMIT Family Medicine; ATTEND Family Medicine
PROC: 027034Z Dilation of Coronary Artery, One Artery with Drug-eluting Intraluminal Device, Percutaneous Approach (ICD-10-PCS; principal; 2021-05-21)
PROC: 4A023N7 Measurement of Cardiac Sampling and Pressure, Left Heart, Percutaneous Approach (ICD-10-PCS; 2021-05-21)
PROC: B2111ZZ Fluoroscopy of Multiple Coronary Arteries using Low Osmolar Contrast (ICD-10-PCS; 2021-05-21)
DX: I21.4 Non-ST elevation (NSTEMI) myocardial infarction (principal); I97.630 Postprocedural hematoma of a circulatory system organ or structure following a cardiac catheterization; I16.0 Hypertensive urgency; I10 Essential (primary) hypertension; E78.2 Mixed hyperlipidemia; E78.00 Pure hypercholesterolemia, unspecified; I25.110 Atherosclerotic heart disease of native coronary artery with unstable angina pectoris; K21.9 Gastro-esophageal reflux disease without esophagitis; M13.80 Other specified arthritis, unspecified site; M06.9 Rheumatoid arthritis, unspecified; E66.9 Obesity, unspecified; Z68.21 Body mass index [BMI] 21.0-21.9, adult; E03.9 Hypothyroidism, unspecified; F32.A Depression, unspecified; Z95.5 Presence of coronary angioplasty implant and graft; Z79.82 Long term (current) use of aspirin; Z88.2 Allergy status to sulfonamides; Z88.8 Allergy status to other drugs, medicaments and biological substances; Z98.1 Arthrodesis status; Z86.73 Personal history of transient ischemic attack (TIA), and cerebral infarction without residual deficits; Z82.49 Family history of ischemic heart disease and other diseases of the circulatory system
CPT/HCPCS: 36415; 71045; 80053; 80061; 83735; 83874; 84484; 85025; 85027; 85610; 85730; 93005; 93041; 93306; 93458; 93926

== ENCOUNTER 2021-06-17 08:36 | Outpatient (RCR) | payer MEDICARE, OTHER ==
[~2021-06-17 08:36] MED LIST changes: +ALEN70TA80 PO; +ASPI-1238 PO; +ASPI325T32 PO; +BIFI4CAP PO; +CARV3.122 PO; +ERGO1250 PO; +HYDR-3820 PO; +MULT-593 PO; +NITR0.4T42 SL; +ROSU20TA32 PO; +TICA90TA PO
== END 2021-06-19 | disposition still patient (30) ==
PROVIDERS: ATTEND Nurse Practitioner
DX: M06.9 Rheumatoid arthritis, unspecified (principal); M18.11 Unilateral primary osteoarthritis of first carpometacarpal joint, right hand; M18.12 Unilateral primary osteoarthritis of first carpometacarpal joint, left hand; Z96.691 Finger-joint replacement of right hand

== ENCOUNTER 2021-07-01 08:36 | Outpatient (RCR) | payer MEDICARE, OTHER | END 2021-07-01 10:10 | disposition home or self-care (01) | PROVIDERS: ATTEND Nurse Practitioner | DX: M18.0 Bilateral primary osteoarthritis of first carpometacarpal joints (principal); Z96.691 Finger-joint replacement of right hand ==

== ENCOUNTER 2021-08-18 14:42 | Outpatient (RCR) | payer MEDICARE, OTHER | END 2021-08-19 | disposition home or self-care (01) | LOC: CR 14:42 | PROVIDERS: ATTEND Internal Medicine Cardiovascular Disease | DX: Z29.8 Encounter for other specified prophylactic measures (principal); I21.9 Acute myocardial infarction, unspecified; Z95.5 Presence of coronary angioplasty implant and graft | CPT/HCPCS: 93798 ==

== ENCOUNTER 2021-09-15 09:11 | Outpatient (RCR) | payer MEDICARE, OTHER | END 2021-09-19 | disposition home or self-care (01) | LOC: CR 09:11 | PROVIDERS: ATTEND Internal Medicine Cardiovascular Disease | DX: Z29.8 Encounter for other specified prophylactic measures (principal); I21.9 Acute myocardial infarction, unspecified; Z95.5 Presence of coronary angioplasty implant and graft | CPT/HCPCS: 93798 ==

== ENCOUNTER → 2021-10-20 | Outpatient (RCR) | payer MEDICARE, OTHER | END | disposition home or self-care (01) | LOC: CR 09-20 06:06 | PROVIDERS: ATTEND Internal Medicine Cardiovascular Disease | DX: Z29.8 Encounter for other specified prophylactic measures (principal); I21.9 Acute myocardial infarction, unspecified; Z95.5 Presence of coronary angioplasty implant and graft | CPT/HCPCS: 93798 ==

== ENCOUNTER → 2021-11-19 | Outpatient (RCR) | payer MEDICARE, OTHER | END | disposition home or self-care (01) | LOC: CR 10-22 07:18 | PROVIDERS: ATTEND Internal Medicine Cardiovascular Disease | DX: Z29.8 Encounter for other specified prophylactic measures (principal); I21.9 Acute myocardial infarction, unspecified; Z95.5 Presence of coronary angioplasty implant and graft | CPT/HCPCS: 93798 ==

== ENCOUNTER 2021-12-15 08:16 | Outpatient (RCR) | payer MEDICARE, OTHER | END 2021-12-20 | disposition home or self-care (01) | LOC: CR 08:16 | PROVIDERS: ATTEND Internal Medicine Cardiovascular Disease | DX: Z29.8 Encounter for other specified prophylactic measures (principal); I21.9 Acute myocardial infarction, unspecified; Z95.5 Presence of coronary angioplasty implant and graft | CPT/HCPCS: 93798 ==

== ENCOUNTER 2022-03-11 14:59 | Emergency (ER) | payer MEDICARE, OTHER ==
[~2022-03-11] VITALS: Ht 162.6 cm; Wt 81.6 kg
[2022-03-11] MEDS ORDERED: ASPIRIN 81 MG CHEW (CHILDREN'S ASA) PO ONE (15:15)
[2022-03-11 15:18] LABS: BASOPHILS # (AUTO) 0.1 10^3/uL (0.0-0.1); BASOPHILS % (AUTO) 1 % (0-10); EOSINOPHILS # (AUTO) 0.1 10^3/uL (0.0-0.3); EOSINOPHILS % (AUTO) 1 % (0-10); HEMATOCRIT 41 % (35-52); HEMOGLOBIN 13.7 g/dL (11.5-16.0); LYMPHOCYTES # (AUTO) 2.3 X 10^3 (1.0-4.0); LYMPHOCYTES % (AUTO) 21 % (12-44); MEAN CORPUSCULAR HEMOGLOBIN 31 pg (25-34); MEAN CORPUSCULAR HGB CONC 34 g/dL (32-36); MEAN CORPUSCULAR VOLUME 92 fL (80-99); MEAN PLATELET VOLUME 9.5 fL (9.0-12.2); MONOCYTES % (AUTO) 9 % (0-12); NEUTROPHILS # (AUTO) 7.5 X 10^3 (1.8-7.8); NEUTROPHILS % (AUTO) 68 % (42-75); PLATELET COUNT 254 10^3/uL (130-400); WHITE BLOOD COUNT 11.1 10^3/uL (4.3-11.0)
--- NOTE | 2022-03-11 15:19 | ED Chest Pain ---
General Chief Complaint: Chest Pain Stated Complaint: BODY PAINS | NAUSEA| Nursing Triage Note: PT AMBULATE TO ROOM 07 WITHOUT DIFFICULTY WITH C/O DIZZYNESS, CHEST TIGHTNESS, LEFT JAW PAIN, UPPER BACK PAIN STARTING LAST NIGHT. PT REPORTS HX OF ROBERTSON. PT REPORTS TAKING X1 NITRO X1 HOUR [employer]. PT REPORTS NITRO DID NOT HELP WITH PAIN Source: patient Exam Limitations: no limitations History of Present Illness Date Seen by Provider: Mar 11, 2022 Time Seen by Provider: 15:17 Initial Comments To ER with reports of central chest tightness that started last night and has been constant since then. She has associated dizziness, nausea, pain in the back left side of her neck and pain in her central back. History of coronary artery disease with 2 coronary stents placed by Dr. Hurd. She had a baby aspirin this morning. Timing/Duration: 24 hours Severity/Quality: moderate Radiation: no radiation Prior CP/Workup: angina, cardiac cath ASA po [employer]: No NTG SL [employer]: No Associated Symptoms: nausea/vomiting Allergies and Home Medications Allergies Coded Allergies: Sulfa (Sulfonamide Antibiotics) (Verified Allergy, Intermediate, HIVES, 03/24/15) amlodipine (Verified Allergy, Mild, 03/18/18) swelling to lower extremities infliximab (Verified Adverse Reaction, Unknown, Hives, 11/05/20) Patient Home Medication List Home Medication List Reviewed: Yes Alendronate Sodium (Alendronate Sodium) 70 Mg Tablet, 70 MG PO MON, (Reported) Entered as Reported by: JAY MORENO on 05/21/21 1506 Aspirin (Aspirin EC) 81 Mg Tablet.dr, 81 MG PO DAILY Prescribed by: JOSE LUIS HRUD JR, MD on 05/22/21 1420 Bifidobacterium Infantis (Align) 4 Mg Capsule, 4 MG PO DAILY, (Reported) Entered as Reported by: JAY MORENO on 05/21/21 1506 Carvedilol (Carvedilol) 3.125 Mg Tablet, 3.125 MG PO BID Prescribed by: JOSE LUIS HURD JR, MD on 05/22/21 1420 Celecoxib (Celecoxib) 200 Mg Capsule, 200 MG PO DAILY, (Reported) Entered as Reported by: JAY MORENO on 07/25/19 1338 Citalopram Hydrobromide (Citalopram HBr) 20 Mg Tablet, 20 MG PO DAILY, (Reported) Entered as Reported by: JAY MORENO on 07/25/19 1338 Ergocalciferol (Vitamin D2) (Vitamin D2) 1,250 Mcg Capsule, 1,250 MCG PO SUN, (Reported) Entered as Reported by: JAY MORENO on 05/21/21 1511 Evolocumab (Repatha Sureclick) 140 Mg/1 Ml Pen.injctr, 140 MG INJ EVERY 2 WEEKS, (Reported) Entered as Reported by: JAY MORENO on 07/25/19 133 Gabapentin (Neurontin) 300 Mg Capsule, 300 MG PO 1199,1999, (Reported) Entered as Reported by: JAY MORENO on 07/25/19 1338 Hydralazine HCl (Hydralazine HCl) 50 Mg Tablet, 50 MG PO HS, (Reported) Entered as Reported by: JAY MORENO on 07/25/19 133 Hydrocodone/Acetaminophen (Hydrocodone-Acetamin 10-325 mg) 1 Each Tablet, 1 EA PO TID PRN for PAIN-MODERATE (5-7), (Reported) Entered as Reported by: JAY MORENO on 05/21/21 1506 Levothyroxine Sodium (Levothyroxine Sodium) 75 Mcg Tablet, 75 MCG PO DAILY, (Reported) Entered as Reported by: JAY MORENO on 07/25/19 133 Multivitamin with Minerals (Multiple Vitamin) 1 Each Tablet, 1 EACH PO DAILY, (Reported) Entered as Reported by: JAY MORENO on 05/21/21 1506 Nitroglycerin (Nitroglycerin) 0.4 Mg Tab.subl, 0.4 MG SL NEEDED PRN for CHEST PAIN (ANGINA) Prescribed by: JOSE LUIS HURD JR, MD on 05/22/21 1420 Olmesartan Medoxomil (Olmesartan Medoxomil) 40 Mg Tablet, 40 MG PO DAILY, (Reported) Entered as Reported by: JAY MORENO on 07/25/19 1338 Rosuvastatin Calcium (Rosuvastatin Calcium) 20 Mg Tablet, 40 MG PO HS Prescribed by: JOSE LUIS HURD JR, MD on 05/22/21 1420 Ticagrelor (Brilinta) 90 Mg Tablet, 90 MG PO BID Prescribed by: JOSE LUIS HURD JR, MD on 05/22/21 1031 Review of Systems Review of Systems Constitutional: see HPI Past Pxmqyfv-[id number]-Wuqprw Hx Patient Social History Tobacco Use?: No Smoking Status: Never a Smoker Smokeless Tobacco Frequency: Never a User Use of E-Cig and/or Vaping dev: No Use of E-Cig and/or Vaping Santana: Never a User Substance use?: No Alcohol Use?: Yes Alcohol Frequency: Once in a while Pt feels they are or have been: No Immunizations Up To Date PED Vaccines UTD: Yes First/Initial COVID19 Vaccinat: MAR 2020 Second COVID19 Vaccination [place]: APRIL 2020 Third COVID19 Vaccination Date: NA Seasonal Allergies Seasonal Allergies: No Past Medical History Surgeries: Yes (HEART STENT 2019,RIGHT TKR 2018,BACK L4 L5 FUSION, RIGHT ROTATOR CUFF REPAI) Coronary Stent Respiratory: No Currently Using CPAP: No Currently Using BIPAP: No Cardiac: Yes Coronary Artery Disease, High Cholesterol, Hypertension Neurological: Yes (2013) Concussion Reproductive Disorders: No Female Reproductive Disorders: Denies 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 Sexually Transmitted Disease: No HIV/AIDS: No Genitourinary: No Gastrointestinal: Yes (SURGERY TO PREVENT GERD) Gastroesophageal Reflux Musculoskeletal: Yes (KNEE REPLACEMENT, FOOT SURGERIES, ROTATOR CUFF SURGERY) Arthritis, Rheumatoid Arthritis Endocrine: Yes Hypothyroidsim HEENT: No Loss of Vision: Denies Hearing Impairment: Denies Cancer: No Psychosocial: No Depression Integumentary: No Blood Disorders: No Adverse Reaction/Blood Tranf: No Family Medical History Chest pain 19 FATHER Congestive heart failure 19 FATHER Family history: Alzheimer's disease 19 MOTHER Family history: Cardiovascular disease 19 FATHER Family history: Hypertension 19 FATHER Family history: Thyroid disorder G8 SISTER Heart disease 19 FATHER Hypercholesterolemia 19 FATHER 19 MOTHER G8 BROTHER Myocardial infarction 19 FATHER Stroke 19 FATHER No Family History of: Abdominal aortic aneurysm [place]'s disease Alcoholism Aphasia Cancer Cancer of colon Cataract Cystic fibrosis Dementia Dysphagia Family history: Diabetes mellitus Family history: Gastrointestinal disease History of - anemia History of drug abuse Human immunodeficiency virus (HIV) seropositivity Infertile Parkinson's disease Prostate cancer Psychotic disorder Seizure disorder Tuberculosis Heart Disease, CAD Over 55 Years Old, Hypertension, Stroke, Other Conditions/Hx Physical Exam Vital Signs Vital Signs - First Documented 03/11/22 03/11/22 15:06 15:12 Temp 36.4 Pulse 58 Resp 19 B/P (MAP) 189/106 (133) Pulse Ox 99 O2 Delivery Room Air Capillary Refill : Less Than 3 Seconds Height, Weight, BMI Height: 5'4.00" Weight: 174lbs. 6.0oz. [id number]; 30.00 BMI Method:Stated General Appearance: No Apparent Distress, WD/WN, Other (Alert and oriented well-appearing. EKG shows sinus rhythm at [address] segment elevation or depression. No ectopy.) HEENT: PERRL/EOMI, TMs Normal Neck: Full Range of Motion, Normal Inspection Respiratory: No Accessory Muscle Use, No Respiratory Distress Cardiovascular: Regular Rate, Rhythm, Normal Peripheral Pulses Gastrointestinal: Normal Bowel Sounds, Non Tender, Soft Extremity: Normal Capillary Refill, Normal Inspection Neurologic/Psychiatric: Alert, Oriented x3 Skin: Normal Color, Warm/Dry Procedures/Interventions Suture Size: 4-0 Progress/Results/Core Measures Results/Orders Lab Results Laboratory Tests Test 03/11/22 15:10 Range/Units White Blood Count 11.1 H 4.3-11.0 10^3/uL Red Blood Count 4.41 3.80-5.11 10^6/uL Hemoglobin 13.7 11.5-16.0 g/dL Hematocrit 41 35-52 % Mean Corpuscular Volume 92 80-99 fL Mean Corpuscular Hemoglobin 31 25-34 pg Mean Corpuscular Hemoglobin Concent 34 32-36 g/dL Red Cell Distribution Width 12.5 10.0-14.5 % Platelet Count 254 130-400 10^3/uL Mean Platelet Volume 9.5 9.0-12.2 fL Immature Granulocyte % (Auto) 1 % Neutrophils (%) (Auto) 68 42-75 % Lymphocytes (%) (Auto) 21 12-44 % Monocytes (%) (Auto) 9 0-12 % Eosinophils (%) (Auto) 1 0-10 % Basophils (%) (Auto) 1 0-10 % Neutrophils # (Auto) 7.5 1.8-7.8 X 10^3 Lymphocytes # (Auto) 2.3 1.0-4.0 X 10^3 Monocytes # (Auto) 1.0 0.0-1.0 X 10^3 Eosinophils # (Auto) 0.1 0.0-0.3 10^3/uL Basophils # (Auto) 0.1 0.0-0.1 10^3/uL Immature Granulocyte # (Auto) 0.2 H 0.0-0.1 10^3/uL Prothrombin Time 12.9 12.2-14.7 SEC INR Comment 0.9 0.8-1.4 Activated Partial Thromboplast Time 28 24-35 SEC Sodium Level 126 L 135-145 MMOL/L Potassium Level 4.5 3.6-5.0 MMOL/L Chloride Level 93 L 98-107 MMOL/L Carbon Dioxide Level 24 21-32 MMOL/L Anion Gap 9 5-14 MMOL/L Blood Urea Nitrogen 21 H 7-18 MG/DL Creatinine 1.30 0.60-1.30 MG/DL Estimat Glomerular Filtration Rate 44 BUN/Creatinine Ratio 16 Glucose Level 87 70-105 MG/DL Calcium Level 9.5 8.5-10.1 MG/DL Corrected Calcium 9.1 8.5-10.1 MG/DL Magnesium Level 2.2 1.6-2.4 MG/DL Total Bilirubin 0.9 0.1-1.0 MG/DL Aspartate Amino Transf (AST/SGOT) 23 5-34 U/L Alanine Aminotransferase (ALT/SGPT) 26 0-55 U/L Alkaline Phosphatase 60 40-136 U/L Myoglobin 145.3 H 10.0-92.0 NG/ML Troponin I < 0.028 <0.028 NG/ML B-Type Natriuretic Peptide 44.1 <100.0 PG/ML Total Protein 7.4 6.4-8.2 GM/DL Albumin 4.5 3.2-4.5 GM/DL My Orders Orders - MADI ZAMBRANO SITE MANAGER Cbc With Automated Diff (03/11/22 15:09) Magnesium (03/11/22 15:09) Chest 1 View, Ap/Pa Only (03/11/22 15:09) Ekg Tracing (03/11/22 15:09) Comprehensive Metabolic Panel (03/11/22 15:09) Myoglobin Serum (03/11/22 15:09) Protime With Inr (03/11/22 15:09) Partial Thromboplastin Time (03/11/22 15:09) O2 (03/11/22 15:09) Monitor-Rhythm Ecg Trace Only (03/11/22 15:09) Lipid Panel (03/12/22 06:00) Ed Iv/Invasive Line Start (03/11/22 15:09) Bnp Ranjana (03/11/22 15:09) Troponin I Ranjana (03/11/22 15:09) Aspirin Chewable Tablet (Baby Aspirin Ch (03/11/22 15:15) Nitroglycerin 0.4 Mg Btl 25's (Nitrostat (03/11/22 15:30) Ns Iv 1000 Ml (Sodium Chloride 0.9%) (03/11/22 16:00) Antacid Suspension (Mylanta Suspension (03/11/22 16:00) Lidocaine 2% Viscous 15 Ml (Xylocaine Vi (03/11/22 16:00) Medications Given in ED Current Medications Medications Dose Ordered Sig/Shaina Route Start Time Stop Time Status Last Admin Dose Admin Al Hydrox/Mg Hydrox/Simethicone 30 ml ONCE ONCE PO 03/11/22 16:00 03/11/22 16:01 DC 03/11/22 16:10 30 ML Aspirin 324 mg ONCE ONCE PO 03/11/22 15:15 03/11/22 15:16 DC 03/11/22 15:21 324 MG Lidocaine HCl 15 ml ONCE ONCE PO 03/11/22 16:00 03/11/22 16:01 DC 03/11/22 16:10 15 ML Nitroglycerin 1 TAB Q 5 MIN X 3 NEEDED PRN SL 03/11/22 15:30 03/11/22 15:21 0.4 MG Vital Signs/I&O 03/11/22 03/11/22 15:06 15:12 Temp 36.4 Pulse 58 Resp 19 B/P (MAP) 189/106 (133) Pulse Ox 99 O2 Delivery Room Air Blood Pressure Mean: 133 Departure Communication (Admissions) 1551-EKG is without any ST segment changes. She does have hypertension. Chest x-ray is clear. Troponin is negative despite greater than 12 hours of constant symptoms. She does report feeling very anxious. We will give her a liter of normal saline for the hyponatremia and have her increase sodium in her diet at home and follow-up with primary care next week. We will give her a GI cocktail here for the chest pain as esophageal spasm is within the differential. She has a history of GERD and has had Linsey fundoplication in the past. I discussed the hyponatremia with her she states that she has been low before down to 119. She does feel better though her pressure remains high. Currently at 171/92. On arrival she was about 200/90. Impression Primary Impression: Chest pain Disposition: ADMITTED INPATIENT Condition: Stable Departure-Patient Inst. Referrals: MELIZA LACY MD (PCP) Primary Care Physician MADI ZAMBRANO APRN Mar 11, 2022 15:19
[2022-03-11 15:30] LABS: ALBUMIN 4.5 GM/DL (3.2-4.5)
[2022-03-11] MEDS ORDERED: NITROGLYCERIN 0.4 MG SL TABS BTL 25'S SL PRN (15:30)
[2022-03-11 15:31] LABS: INR 0.9 (0.8-1.4); POTASSIUM 4.5 MMOL/L (3.6-5.0); PROTHROMBIN TIME PATIENT 12.9 SEC (12.2-14.7)
[2022-03-11 15:32] LABS: CALCIUM 9.5 MG/DL (8.5-10.1)
[2022-03-11 15:33] LABS: TOTAL PROTEIN 7.4 GM/DL (6.4-8.2)
[2022-03-11 15:35] LABS: BILIRUBIN,TOTAL 0.9 MG/DL (0.1-1.0)
[2022-03-11 15:36] LABS: CREATININE SERUM 1.3 MG/DL (0.60-1.30)
[2022-03-11 15:39] LABS: MAGNESIUM 2.2 MG/DL (1.6-2.4)
--- NOTE | 2022-03-11 15:47 | Diagnostic Imaging Report ---
CHEST 1 VIEW, AP/PA ONLY Indication: Chest pain. Comparison: 05/21/2021 Findings: No focal airspace disease in the visualized lungs. No pleural effusion or pneumothorax. Normal cardiomediastinal silhouette. Impression: 1. No acute cardiopulmonary process by portable radiography. Dictated by: Dictated on workstation # [id number]
[2022-03-11] MEDS ORDERED: LIDOCAINE 2% VISCOUS 15 ML UDC PO ONE (16:00)
[2022-03-11] MEDS ORDERED: NS IV 1000 ML 1,000 ML IV SCH (16:00)
[2022-03-11] MEDS ORDERED: ANTACID SUSP 30 ML UDC (MYLANTA) PO ONE (16:00)
[2022-03-11] MEDS ORDERED: cloNIDine 0.2 MG (CATAPRES) TAB PO ONE (16:45)
[2022-03-11 16:55] VITALS: BP 170/88
== END 2022-03-11 16:55 | disposition other institution (70) ==
LOC: EDUNIT# 14:59 → ER 15:01
DX: I10 Essential (primary) hypertension (principal); E87.1 Hypo-osmolality and hyponatremia; Z95.5 Presence of coronary angioplasty implant and graft
CPT/HCPCS: 36415; 71045; 80053; 83735; 83874; 83880; 84484; 85025; 85610; 85730; 93005; 93041

== ENCOUNTER 2022-03-21 10:58 | Outpatient (RCR) | payer MEDICARE, OTHER | END 2022-03-22 | disposition home or self-care (01) | PROVIDERS: ATTEND Family Medicine | DX: M54.2 Cervicalgia (principal); G89.29 Other chronic pain ==

== ENCOUNTER 2022-04-18 09:37 | Outpatient (RCR) | payer MEDICARE, OTHER | END 2022-04-19 | disposition home or self-care (01) | PROVIDERS: ATTEND Internal Medicine Rheumatology | DX: M70.62 Trochanteric bursitis, left hip (principal); R26.89 Other abnormalities of gait and mobility; R53.1 Weakness ==

== ENCOUNTER → 2022-04-19 | Outpatient (CLI) | payer MEDICARE, OTHER ==
--- NOTE | 2022-04-19 15:35 | Diagnostic Imaging Report ---
INDICATION: Routine screening. Comparison is made with prior mammogram from 05/07/2021 and 03/10/2020. 2-D and 3-D bilateral screening mammography was performed with CAD. Scattered fibroglandular densities are identified bilaterally. The parenchymal pattern is stable. No mass or malignant-appearing microcalcifications are seen. Scattered benign calcifications. Axillae are unremarkable. IMPRESSION: No mammographic features suspicious for malignancy are identified. ACR BI-RADS Category 2: Benign findings. Result letter will be mailed to the patient. Note: At least 10% of breast cancer is not imaged by mammography. BI-RADS Category 2 Dictated by: Dictated on workstation # [id number]
== END ==
LOC: RAD 09:04
PROVIDERS: ATTEND Nurse Practitioner Family
DX: Z12.31 Encounter for screening mammogram for malignant neoplasm of breast (principal)
CPT/HCPCS: 77063; 77067

== ENCOUNTER 2022-04-29 11:06 | Outpatient (RCR) | payer MEDICARE, OTHER | END 2022-04-29 12:15 | disposition home or self-care (01) | PROVIDERS: ATTEND Internal Medicine Rheumatology | DX: M70.62 Trochanteric bursitis, left hip (principal); M05.79 Rheumatoid arthritis with rheumatoid factor of multiple sites without organ or systems involvement; I11.9 Hypertensive heart disease without heart failure; Z79.899 Other long term (current) drug therapy ==

== ENCOUNTER → 2022-05-17 | Outpatient (CLI) | payer MEDICARE, OTHER ==
--- NOTE | 2022-05-17 11:32 | Diagnostic Imaging Report ---
PROCEDURE: MRI left joint lower extremity without contrast. TECHNIQUE: Multiplanar, multisequence non contrast-enhanced MRI of the left lower extremity was accomplished. INDICATION: Left hip pain COMPARISON: CT of the abdomen and pelvis from 07/24/2019 FINDINGS: No acute fracture is seen in the pelvis or left hip. Alignment appears normal. No significant joint effusion is seen. The left acetabular labrum is suboptimally evaluated in the absence of intra-articular contrast, but there does appear to be degenerative tearing. No significant para labral cyst is seen. The gluteus medius and minimus tendons appear to be intact. The left hamstring tendon is intact. There is no iliopsoas bursitis. There is mild fluid in the greater trochanteric bursa. There is tendinosis and partial tearing at the origin of the left semimembranosus tendon. There is moderate edema in the left quadratus femoris muscle. The right hip is suboptimally evaluated on this [id number], but there does appear to be mild fluid in the right greater trochanter bursa. There is atrophy of the gluteus minimus musculature bilaterally as well as the anterior gluteus medius musculature. No free fluid is seen in the pelvis. No lymphadenopathy or masses are seen. IMPRESSION: 1. Mild degenerative changes in the left hip with likely degenerative tearing of the acetabular labrum. No para labral cyst. 2. Tendinosis and partial tearing at the origin of the semimembranosus tendon with adjacent findings concerning for ischiofemoral impingement. 3. Fluid in the greater trochanteric bursae bilaterally, may represent a mild bursitis. Dictated by: Dictated on workstation # [id number]
== END ==
LOC: RAD 09:30
PROVIDERS: ATTEND Family Medicine
DX: M16.12 Unilateral primary osteoarthritis, left hip (principal); S76.312A Strain of muscle, fascia and tendon of the posterior muscle group at thigh level, left thigh, initial encounter
CPT/HCPCS: 73721

== ENCOUNTER 2022-06-16 07:57 | Outpatient (RCR) | payer MEDICARE, OTHER | END 2022-06-19 | PROVIDERS: ATTEND Family Medicine Sports Medicine | DX: M13.88 Other specified arthritis, other site (principal); I10 Essential (primary) hypertension ==

== ENCOUNTER → 2022-07-12 | Outpatient (CLI) | payer MEDICARE, OTHER ==
--- NOTE | 2022-07-12 11:49 | Diagnostic Imaging Report ---
PROCEDURE: MRI lumbar spine. TECHNIQUE: Multiplanar, multisequence MRI of the lumbar spine was performed without contrast. INDICATION: Chronic low back pain. Lumbar spine fusion. COMPARISON: CT abdomen and pelvis 07/24/2019. FINDINGS: There are 5 lumbar-type vertebral bodies the purposes of this report. Grade 1 anterolisthesis of L4 and L5 and L5 on S1. Vertebral body heights are preserved. Bilateral thaddeus and pedicle screw fixation with interbody fusion at L4-L5. No abnormal signal in the conus which terminates at L1-L2. Normal morphology of the cauda equina. The visualized pelvis and paravertebral soft tissues demonstrate no acute findings. L1-L2: Annular disc bulging and ligamentous hypertrophy result in mild spinal canal bilateral lateral recess narrowing. Mild bilateral neural foraminal narrowing. L2-L3: Broad-based disc bulging and facet arthropathy result in mild spinal canal and left lateral recess narrowing. Mild bilateral neural foraminal narrowing. L3-L4: Central disc extrusion, ligamentous hypertrophy and facet arthropathy all result in moderate spinal canal and bilateral lateral recess stenosis. Mild to moderate bilateral neural foraminal narrowing. L4-L5: The anterolisthesis, ligamentous hypertrophy and facet arthropathy all result in severe spinal canal stenosis. Moderate to severe bilateral neural foraminal narrowing. L5-S1: Left paracentral disc protrusion combines with facet arthropathy result in severe left lateral recess narrowing. Mild spinal canal narrowing. Mild to moderate bilateral neural foraminal narrowing. IMPRESSION: 1. Spondylotic changes result in severe spinal canal stenosis at L4-L5. 2. Left paracentral disc protrusion at L5-S1 results in severe left lateral recess narrowing. 3. Bilateral thaddeus and pedicle screw fixation with interbody device at L4-L5. Dictated by: Dictated on workstation # [id number]
== END ==
LOC: RAD 09:40
PROVIDERS: ATTEND Nurse Practitioner Family
DX: M48.061 Spinal stenosis, lumbar region without neurogenic claudication (principal); M47.816 Spondylosis without myelopathy or radiculopathy, lumbar region; M51.27 Other intervertebral disc displacement, lumbosacral region; Z98.1 Arthrodesis status
CPT/HCPCS: 72148

== ENCOUNTER 2022-07-14 10:56 | Outpatient (RCR) | payer MEDICARE, OTHER ==
[~2022-07-14 10:56] MED LIST changes: -LOSA100T57 PO; +LOSA100T58 PO
== END 2022-07-20 | disposition home or self-care (01) ==
PROVIDERS: ATTEND Family Medicine Sports Medicine
DX: M46.1 Sacroiliitis, not elsewhere classified (principal); M13.88 Other specified arthritis, other site

== ENCOUNTER → 2023-01-19 | Outpatient (RCR) | payer MEDICARE, OTHER ==
[~2023-01-19] MED LIST changes: -CELE-63 PO; +CELE-91 PO; -ROSU20TA32 PO; +ROSU20TA73 PO
== END | disposition home or self-care (01) ==
PROVIDERS: ATTEND Student in an Organized Health Care Education/Training Program
DX: Z98.890 Other specified postprocedural states (principal)